=== PATIENT | female | born 1955 | race Two or more races ===

== ENCOUNTER 2022-12-24 12:37 | Outpatient (OUT) | payer MEDICARE, MEDICAID, SELFPAY ==
--- NOTE | 2022-12-24 12:48 | XR_ITS ---
The [address] [address] Patient Name: NYA REDMOND MRN: [id number] date: 1955 Sex: F Assigned Patient Location: [facility] Current Patient Location: [facility] Accession/Order Number: [id number] Exam Date: 12/24/2022 13:10 Report Date: 12/24/2022 13:27 At the request of: ANUPAM PEREIRA Procedure: XR chest 2V EXAM: XR chest 2V HISTORY: Symptoms Involving The Circulatory And Respiratiry System COMPARISON: None. TECHNIQUE: PA and lateral views of the chest. FINDINGS: The cardiomediastinal silhouette is normal. There is a left-sided pacemaker with atrial ventricular leads. No focal consolidation is identified. There is no pneumothorax. No pleural effusion is noted. The osseous structures are intact. XR/XR chest 2V IMPRESSION: No acute cardiopulmonary process. Electronically authenticated by: TERRY HIGGINS Date: 12/24/2022 13:27
--- NOTE | 2022-12-24 12:51 | XR_ITS ---
[place] [id number] Patient Name: NYA REDMOND MRN: [id number] date: 1955 Sex: F Assigned Patient Location: [facility] Current Patient Location: [facility] Accession/Order Number: [id number] Exam Date: 12/24/2022 13:10 Report Date: 12/24/2022 13:30 At the request of: ANUPAM PEREIRA Procedure: XR shoulder RT min 2V EXAM: XR shoulder RT min 2V HISTORY: Right Shoulder Pain COMPARISON: None. TECHNIQUE: 3 views FINDINGS: No acute fracture or dislocation. Mild degenerative changes of the acromioclavicular joint. Unremarkable soft tissues XR/XR shoulder RT min 2V IMPRESSION: Mild degenerative changes as above. Electronically authenticated by: TERRY HIGGINS Date: 12/24/2022 13:30
== END 2022-12-24 12:38 | disposition home or self-care (01) ==
LOC: RAD 12:42
PROVIDERS: PCP Family Medicine; Visit Provider Family Medicine
DX: R09.89 Other specified symptoms and signs involving the circulatory and respiratory systems (principal); M25.511 Pain in right shoulder
CPT/HCPCS: 71046; 73030

== ENCOUNTER 2023-03-26 16:25 | Outpatient (OUT) | payer MEDICARE, MEDICAID, SELFPAY ==
[2023-03-26 17:05] LABS: BUN Creatinine Ratio 15.3; Carbon Dioxide 29.3 mmol/L (21.0-32.0); Chloride 106 mmol/L (98-107); Estimated GFR (African America 59 (>=60); Estimated GFR (Non-African Ame 49 (>=60); Glucose 109 mg/dL (74-106); Potassium 4.3 mmol/L (3.5-5.1); Sodium 144 mmol/L (136-145)
== END 2023-03-26 16:26 | disposition home or self-care (01) ==
PROVIDERS: PCP Family Medicine
DX: I50.22 Chronic systolic (congestive) heart failure (principal)
CPT/HCPCS: 36415; 80048

== ENCOUNTER 2023-12-25 11:27 | Emergency (ER) | payer MEDICARE, MEDICAID, SELFPAY ==
[2023-12-25 11:31] VITALS: BP 144/91; PULSE 70; TEMP 36.6; O2SAT 95; BMI 38.7
--- NOTE | 2023-12-25 11:36 | XR_ITS ---
The [address] [address] Patient Name: NYA REDMOND MRN: [id number] date: 1955 Sex: F Assigned Patient Location: ER Current Patient Location: ER Accession/Order Number: [id number] Exam Date: 12/25/2023 12:05 Report Date: 12/25/2023 12:39 At the request of: EUGENIA WREN Procedure: XR knee LT 3V PROCEDURE: XR knee LT 3V HISTORY: fall COMPARISON: None. FINDINGS: BONES:No fracture, acute abnormality, or significant arthropathy. SOFT TISSUES:No visible soft tissue swelling. EFFUSION:Small joint effusion. OTHER: Negative. XR/XR knee LT 3V IMPRESSION: 1. Small joint effusion. 2. No acute bone abnormality or significant degenerative joint disease. Electronically authenticated by: MAREN AMRTEL Date: 12/25/2023 12:39
--- NOTE | 2023-12-25 11:36 | XR_ITS ---
The [address] [address] Patient Name: NYA REDMOND MRN: [id number] date: 1955 Sex: F Assigned Patient Location: ER Current Patient Location: ER Accession/Order Number: [id number] Exam Date: 12/25/2023 12:05 Report Date: 12/25/2023 12:37 At the request of: EUGENIA WREN Procedure: XR lumbar spine 2-3V EXAMINATION: XR lumbar spine 2-3V HISTORY: fall COMPARISON: No relevant comparison available. FINDINGS: BONES: Minimal grade 1 anterolisthesis of L4 on 5. Multilevel moderate degenerative facet arthropathy. No fracture. DISC SPACES: Moderate narrowing L3-4, L4-5, L5-S1. PARASPINOUS: Negative. No paraspinous abnormality is seen. OTHER: Negative. XR/XR lumbar spine 2-3V IMPRESSION: 1. No appreciable acute abnormality. 2. Multilevel moderate degenerative changes. Electronically authenticated by: MAREN MARTEL Date: 12/25/2023 12:37
--- NOTE | 2023-12-25 11:36 | XR_ITS ---
The [place] [id number] Patient Name: NYA REDMOND MRN: [id number] date: 1955 Sex: F Assigned Patient Location: ER Current Patient Location: Accession/Order Number: [id number] Exam Date: 12/25/2023 12:05 Report Date: 12/25/2023 12:45 At the request of: EUGENIA WREN Procedure: XR hand LT min 3V PROCEDURE: XR hand LT min 3V HISTORY: fall COMPARISON: None. FINDINGS: BONES:Moderate degenerative changes of the first digit interphalangeal joint. Mild degenerative changes of the second digit distal interphalangeal joint. No fracture or dislocation. SOFT TISSUES:No visible soft tissue swelling. EFFUSION:None visible. OTHER: Negative. XR/XR hand LT min 3V IMPRESSION: 1. No acute bone abnormality. 2. Degenerative changes. Electronically authenticated by: MAREN MARTEL Date: 12/25/2023 12:45
--- OUTSIDE RECORDS SUMMARY | 2023-12-25 11:38 | XMS_ITS | CCD ---
Author Organization [facility] Care Team Providers Care Circular Clerk Name Role Phone Hampole, Haile V Unavailable Unavailable Hampole, Haile V Unavailable Unavailable Hampole, Haile V Unavailable Unavailable ANUPAM PEREIRA~[phone] UNKNOWN Unavailable Unavailable Harsh Lange Unavailable Unavailable Harsh Lange Unavailable Unavailable Anupam Pereira Unavailable Unavailable Unavailable MD Anupam Pereira Primary Care Provider MD Daphne Mayes Attending Provider [phone] Unavailable Unavailable MD Anupam Pereira Primary Care Provider MD Daphne Mayes Attending Provider [phone] MD Anupam Pereira Primary Care Provider MD Daphne Mayes Attending Provider [phone] MD Anupam Pereira Primary Care Provider MD Daphne Mayes Attending Provider [phone] Anup[address] ANUPAM PEREIRA Primary Care Unavailable MARIA FERNANDA ., DR JANICE Casas Attending Unavailable MARIA FERNANDA ., DR JANICE Casas Admitting Unavailable MARIA FERNANDA ., DR JANICE Casas Consulting Unavailable DR ANUPAM PEREIRA Primary Care Unavailable DR ANUPAM PEREIRA Consulting Unavailable RANDALL, DR ANUPAM Kurtz Attending Unavailable DR ANUPAM PEREIRA Admitting Unavailable DR ANUPAM PEREIRA Primary Care Unavailable MARIA FERNANDA ., DR JANICE Casas Admitting Unavailable MARIA FERNANDA ., DR JANICE Casas Consulting Unavailable MARIA FERNANDA ., DR JANICE Casas Attending Unavailable DR ANUPAM PEREIRA Primary Care Unavailable MARIA FERNANDA ., DR JANICE Casas Admitting Unavailable JOLLY SIM Consulting Unavailable MARIA FERNANDA ., DR JANICE Casas Attending Unavailable DR ANUPAM PEREIRA Primary Care Unavailable MARIA FERNANDA ., DR JANICE Casas Admitting Unavailable IRVING ., DR JANICE Casas Consulting Unavailable IRVING ., DR JANICE Casas Attending Unavailable LAKSHMIPATHY ., YOSHI Attending Kathya vailable LAKSHMIPATHY ., YOSHI Admitting Akthya vailable PEREIRA, DR ANUPAM Kurtz Primary Care Unavailable LAKSHMIPATHY ., YOSHI Consulting Kathya vailable PEREIRA, DR ANUPAM Kurtz Primary Care Unavailable IRVING ., DR JANICE Casas Attending Unavailable IRVING ., DR JANICE Casas Admitting Unavailable IRVING ., DR JANICE Casas Consulting Unavailable SHARP, MERCEDES Consulting Unavailable PEREIRA, DR ANUPAM Kurtz Primary Care Unavailable IRVING ., DR JANICE Casas Attending Unavailable IRVING ., DR JANICE Casas Admitting Unavailable NAVAS . JOLLY Consulting Unavailable PEREIRA, DR ANUPAM Kurtz Primary Care Unavailable IRVING ., DR JANICE Casas Attending Unavailable IRVING ., DR JANICE Casas Admitting Unavailable IRVING ., DR JANICE Casas Consulting Unavailable PEREIRA, DR ANUPAM Kurtz Primary Care Unavailable BOSWELL, DR LUPE Denney Attending Unavailable BOSWELL, DR LUPE Denney Admitting Unavailable BOSWELL, DR LUPE Denney Consulting Unavailable PEREIRA, DR ANUPAM Kurtz Primary Care Unavailable PEREIRA, DR ANUPAM Kurtz Attending Unavailable PEREIRA, DR ANUPAM Kurtz Admitting Unavailable MORRIS, DR CECY Wade Consulting Unavailable ZIEBER, DR MAREN Benz Consulting Unavailable PEREIRA, DR ANUPAM Kurtz Consulting Unavailable BOSWELL, DR LUPE Denney Attending Unavailable BOSWELL, DR LUPE Denney Admitting Unavailable PEREIRA, DR ANUPAM Kurtz Primary Care Unavailable BOSWELL, DR LUPE Denney Consulting Unavailable PEREIRA, DR ANUPAM Kurtz Primary Care Unavailable PEREIRA, DR ANUPAM Kurtz Consulting Unavailable PEREIRA, DR ANUPAM Kurtz Attending Unavailable PEREIRA, DR ANUPAM Kurtz Admitting Unavailable ARRIAZA, ELAINA Consulting Unavailable Randall, MD Anupam Kurtz Primary Care Provider [phone] MD Daphne Mayes Attending Provider Boswell, Dr. Lupe Carrion Attending Kathya vailable Pereira, Dr. Anupam Tam Primary Care Unav ailable Boswell, Dr. Lupe Carrion Attending Ktahya vailable Pereira, Dr. Anupam Tam Primary Care Unav ailable Boswell, Dr. Lupe Carrion Attending Kathya vailable Pereira, Dr. Anupam Tam Primary Care Unav ailable Pereira, MD Anupam Kurtz Primary Care Provider MD Daphne Mayes Attending Provider Randall, Dr. Anupam Tam Primary Care Unav ailable Boswell, Dr. Lupe Carrion Referring Kathya vailable Pereira, Dr. Anupam Tam Primary Care Unav ailable Boswell, Dr. Lupe Carrion Attending Kathya vailable Boswell, Dr. Lupe Carrion Referring Kathya vailable Pereira, Dr. Anupam Tam Primary Care Unav ailable Boswell, Dr. Lupe Carrion Attending Kathya vailable Pereira, Dr. Anupam Tam Primary Care Unav ailable Huber, Dr. Daphne Canada Attending Unavailab le Randall, Dr. Anupam Tam Primary Care Unav ailirina Pereira, Dr. Anupam Tam Primary Care Unav zelalem Pereira MD, Anupam Tam Primary Care Provider MD Anupam Pereira Primary Care Provider MD Gaudencio Mendzoa Attending Provider Joslyn SULLIVAN-Maurizio SANTIAGO Unavailable Anupam Pereira MD Primary Care Provider ANUPAM PEREIRA Primary Care Unavailable Anupam Pereira MD Primary Care Provider MAURIZIO JORGENSEN Attending Unavaila ANUPAM Ramirez Primary Care Unavailable LUPE BOSWELL Attending Unavailable ANUPAM PEREIRA Primary Care Unavailable DAPHNE MAYES Attending Unavailable MAURIZIO JORGENSEN Referring Unavaila ANUPAM Ramirez Primary Care Unavailable LUPE BOSWELL Attending Unavailable LUPE BOSWELL Referring Unavailable ANUPAM PEREIRA Primary Care Unavailable MD Anupam Pereira Primary Care Provider MD Gaudencio Mendoza Attending Provider Gaudencio Mendoza Admitting Unavail able Anupam Pereira Primary Care Unavailable Gaudencio Mendoza Attending Unavail able Gaudencio Mendoza Admitting Unavail able Anupam Pereira Primary Care Unavailable Gaudencio Mendoza Attending Unavail Gaudencio Craig Attending Unavail able Gaudencio Mendoza Admitting Unavail able Anupam Pereira Primary Care Unavailable Allergies Allergy Classification Reported Allergen(s) Allergy Type Date of Onset Reaction(s) Facility (1 source) Adhesive Tape; Translations: [Tape] Propensity to adverse reactions (disorder) [facility] Repository (3 sources) Desonide Drug Allergy 06-12-19 16 Unknown, Rash [facility] Repository (1 source) Latex Drug allergy (disorder) [facility] (1 source) patient allergy list reviewed by nurse or physicia Propensity to adverse reactions 08-31-19 15 Comment:Done [email or web address] Other (1 source) Allergies Reconciled Propensity to adverse reactions Unknown [email or web address] Other (5 sources) Adhesive agent; Translations: [ADHESIVE] Drug Intolerance 10-26-19 14 Unknown [facility] (2 sources) Adhesive Tape Drug allergy (disorder) 05-28-19 24 [facility] Repository Medications Current Medications Medication Drug Class(es) Dates Sig (Normalized) Sig (Original) amoxicillin 875 mg / clavulanate 125 mg oral tablet (2 sources) Penicillin-class Antibacterial Start: 01-09-2023 take 1 tablet by mouth every twelve hours Amoxicillin-Pot Clavulanate 875-125 MG 1 tablet Orally every 12 hrs for 10 day(s) Jan, Active baclofen 10 mg oral tablet (3 sources) gamma-Aminobutyric Acid-ergic Agonist take 1 tablet by mouth every twelve hours Baclofen 10 MG 1 tablet as needed Orally Twice a day Active benzonatate 200 mg oral capsule (4 sources) Non-narcotic Antitussive Start: 05-08-2023 take 1 capsule by mouth every eight hours Benzonatate 200 MG 1 capsule Orally Three times a day for 10 day(s) May, Active Start: 12-31-2022 take 1 capsule by [facility] every eight hours Benzonatate 200 MG 1 capsule Orally Three times a day for 10 day(s) Dec, Active carvedilol 3.125 mg oral tablet (20 sources) alpha-Adrenergic Roxy, beta-Adrenergic Roxy Start: 12-22-2023 take 3.125 mg by mouth twice daily Carvedilol Active 3.125 MG PO Twice daily December 22, 2023 12:00am Start: 08-29-2023 take 1 tablet by yuliya th twice daily carvedilol (Coreg) 6.25 mg tablet Indications: ICD (implantable cardioverter-defibrillator) in place Take 1 tablet (6.25 mg) by mouth 2 times a day. 90 tablet 3 08/29/2023 Active Start: 04-03-2021 End: 08-29-2023 take 1 tablet by mouth twice daily carvedilol (Coreg) 6.25 mg tablet Take 1 tablet (6.25 mg) by mouth 2 times a day. 04/03/2021 08/29/2023 Discontinued (Reorder) take 1 tablet by yuliya th every twelve hours Carvedilol 3.125 MG 1 tablet with food Orally Twice a day for 90 Active cefdinir 300 mg oral capsule (3 sources) Cephalosporin Antibacterial Start: 05-08-2023 Cefdinir 300 MG as directed Orally bid for 7 May, Active Start: 12-31-2022 Cefdinir 300 M G as directed Orally bid for 7 days Dec, Active codeine phosphate 2 mg/ml / guaiFENesin 20 mg/ml oral solution (2 sources) Opioid Agonist Start: 12-31-2022 take 10 mL by mouth every four hours as needed guaiFENesin AC 100-10 MG/5ML 10 mL as needed Orally every 4 hrs for 7 days Dec, Active furosemide 40 mg oral tablet (2 sources) Loop Diuretic Start: 02-25-2023 End: 05-12-2023 furosemide (Lasix) 40 mg tablet Indications: Chronic systolic congestive heart failure (CMS/HCC) Take one tablet daily x 3 days then one tablet daily for a 3 pound weight gain over night or 5 pounds in 5 days 30 tablet 11 02/25/2023 05/12/2023 Discontinued (Therapy completed) Handicap placards as directed (9 sources) Handicap placard s as directed as directed as directed as directed Active methylPREDNISolone 4 mg oral tablet (3 sources) Corticosteroid Start: 05-08-2023 methylPREDNISolone 4 MG as directed Orally for 6 days May, Active Start: 01-09-2023 methylPREDNISo lone 4 MG as directed Orally for 6 days Jan, Active Nirmatrelvir-Ritonavir (Paxlovid) 300 mg (150 mg x 2)-100 mg tablets,dose pack (1 source) Start: 12-22-2023 Nirmatrelvir-Ritonavir (Paxlovid) 300 mg (150 mg x 2)-100 mg tablets,dose pack Active 0 PO .COMPLEX 30 December 22, 2023 12:00am take TWO 150 mg tablets of nirmatrelvir with ONE 100 mg tablet of ritonavir twice daily for 5 days PO omeprazole 20 mg delayed release oral capsule (20 sources) Proton Pump Inhibitor Start: 12-22-2023 take 20 mg by mouth once daily Omeprazole Active 20 MG PO Daily December 22, 2023 12:00am take 1 capsule by [facility] once daily before breakfast omeprazole (PriLOSEC) [address] capsule Take 1 capsule (20 mg) by mouth once daily in the morning. Before Breakfast Active Omeprazole 20 MG TK 2 CS PO QD Oral for 90 Active predniSONE 20 mg oral tablet (6 sources) Start: 05-22-2023 take 2 tablets by mouth every twenty-four hours predniSONE 20 MG 2 tablets Orally Once a day for 5 days May, Active Start: 12-24-2022 take 2 tablets by [facility] every twenty-four hours predniSONE 20 MG 2 tablets Orally Once a day for 5 days Dec, Active sacubitril 49 mg / valsartan 51 mg oral tablet (20 sources) Angiotensin 2 Receptor Roxy Start: 12-22-2023 take 1 tablet by mouth twice daily Sacubitril-Valsartan (Entresto) 49-51 mg tablet Active 1 TAB PO Twice daily December 22, 2023 12:00am Start: 08-29-2023 take 1 tablet by [facility] twice daily sacubitriL-valsartan (Entresto) 49-51 mg tablet Indications: ICD (implantable cardioverter-defibrillator) in place Take 1 tablet by mouth 2 times a day. 180 tablet 3 08/29/2023 Active Start: 10-09-2021 End: 08-29-2023 take 1 tablet by mouth twice daily sacubitriL-valsartan (Entresto) 49-51 mg tablet Take 1 tablet by mouth 2 times a day. 10/09/2021 08/29/2023 Discontinued (Reorder) take 1 tablet by twice daily Entresto 24-26 MG TAKE 1 TABLET BY MOUTH TWICE A DAY for 90 Active ENTRESTO 24 mg/2 6 mg 1 orally twice a day Active sertraline 100 mg oral tablet (20 sources) Serotonin Reuptake Inhibitor Start: 06-20-2023 take 100 mg by mouth once daily Sertraline Active 100 MG PO Daily June 20, 2023 1:00am take 2 tablets by mouth once maura ly sertraline (Zoloft) 50 mg tablet Take 2 tablets (100 mg) by mouth once daily. Active take 1 tablet by mouth once santiago y Sertraline HCl 100 MG TAKE 1 TABLET BY MOUTH EVERY DAY for 90 Active take 1 tablet by mouth once santiago y Sertraline HCl - 50 MG Oral Tablet TAKE 1 TABLET DAILY DIRECTED. Quantity: 0 Refills: 0 Ordered: 09-Aug-2021 DO Active tiZANidine 4 mg oral tablet (7 sources) Central alpha-2 Adrenergic Agonist tiZANidine HCl 4 MG TAKE 1 TABLET BY MOUTH THREE TIMES A DAY NEEDED FOR 30 DAYS for 20 Active Completed/Discontinued Medications Medication Drug Class(es) Dates Sig (Normalized) Sig (Original) Albuterol (6 sources) beta2-Adrenergic Agonist Start: 06-20-2023 End: 12-22-2023 take 1 puff(s) by inhalation every four to six hours Albuterol Sulfate Discontinued 2 PUFF INHALATION EVERY 4-6 HOURS 6.7 June 20, 2023 1:00am December 22, 2023 2:01pm Start: 06-20-2023 take 1 puff(s) by in halation every four to six hours Albuterol Sulfate Active 2 PUFF INHALATION EVERY 4-6 HOURS 6.7 June 20, 2023 1:00am Start: 01-09-2023 take 2 puff(s) by in halation every four hours as needed Albuterol Sulfate HFA 108 (90 Base) MCG/ACT 2 puff Inhalation every 4 hrs prn Jan, Active Start: 01-09-2023 take 2 puff(s) by in halation every four hours as needed Albuterol Sulfate HFA 108 (90 Base) MCG/ACT 2 puff Inhalation every 4 hrs prn Jan, Active Albuterol Sulfat e HFA 108 (90 Base) MCG/ACT INHALE 2 PUFFS BY MOUTH EVERY 4 HOURS NEEDED FOR 30 DAYS for 30 Active ciprofloxacin 250 mg oral tablet (5 sources) Quinolone Antimicrobial take 1 tablet by mouth every twelve hours Ciprofloxacin HCl 250 MG 1 tablet Orally every 12 hrs Not-Taking ergocalciferol 0.05 mg oral capsule (13 sources) Provitamin D2 Compound Start: 10-10-19 End: 08-29-19 24 take 1 capsule by mouth once daily Vitamin D (Ergocalciferol) 50 MCG (2000 UT) Oral Capsule one daily OTC Quantity: 90 Refills: 0 Ordered: 09-Oct-2022 Lupe Boswell MD Start : 09-Oct-2022 Active Start: 05-23-2022 take 1 capsule by [facility] every week Vitamin D (Ergocalciferol) 1.25 MG (75398 UT) 1 capsule Orally weekly for 90 day(s) May, Active febuxostat 80 mg oral tablet (5 sources) Xanthine Oxidase Inhibitor take 1 tablet by mouth once daily Uloric 80 MG TAKE 1 TABLET BY MOUTH EVERY DAY Oral for 90 Not-Taking lisinopril 10 mg oral tablet (5 sources) Angiotensin Converting Enzyme Inhibitor take 1 tablet by mouth once daily Lisinopril 10 MG TAKE 1 TABLET EVERY DAY Oral for 90 Not-Taking nabumetone 750 mg oral tablet (5 sources) Nonsteroidal Anti-inflammatory Drug take 1 tablet by mouth twice daily Nabumetone 750 MG TAKE 1 TABLET TWICE A DAY Oral for 30 Not-Taking traMADol hydrochloride 50 mg oral tablet (5 sources) Opioid Agonist take 1 tablet by mouth every twenty-four hours traMADol HCl 50 MG 1 tablet as needed Orally Once a day Not-Taking Problems Active Problems Problem Classification Problem Date Documented Date Episodic/Chronic Abdominal pain (15 sources) Right upper quadrant pain; Translations: [Right upper quadrant pain] Onset: 03-17-2017 Episodic Acute bronchitis (2 sources) Acute bronchitis; Translations: [Acute bronchitis] Onset: 08-30-2014 Episodic Administrative/social admission (17 sources) Follow-up status; Translations: [Other specified counseling] Onset: 08-29-2023 08-29-2023 Episodic Anxiety disorders (14 sources) Generalized anxiety disorder; Translations: [Generalized anxiety disorder] Onset: 08-30-2014 Chronic Chronic obstructive pulmonary disease and bronchiectasis (16 sources) Bronchitis; Translations: [Bronchitis, not specified as acute or chronic] Episodic Conduction disorders (20 sources) Automatic implantable cardiac defibrillator in situ; Translations: [Automatic implantable cardiac defibrillator in situ] Onset: 03-28-2014 02-25-2023 Chronic Congestive heart failure; nonhypertensive (20 sources) Chronic systolic heart failure; Translations: [Chronic systolic heart failure] Onset: 03-28-2014 Chronic Deficiency and other anemia (5 sources) Anemia, unspecified; Translations: [ANEMIA UNSPECIFIED] Onset: 05-21-2022 Episodic Diabetes mellitus without complication (14 sources) Impaired fasting glycemia; Translations: [Impaired fasting glucose] Episodic Esophageal disorders (14 sources) Gastroesophageal reflux disease without esophagitis; Translations: [Gastro-esophageal reflux disease without esophagitis] Chronic Essential hypertension (15 sources) Essential hypertension; Translations: [Essential (primary) hypertension] Onset: 03-28-2014 Chronic Genitourinary symptoms and ill-defined conditions (14 sources) Increased frequency of urination; Translations: [Frequency of micturition] Episodic Gout and other crystal arthropathies (20 sources) Articular gout; Translations: [Gout, unspecified] Onset: 03-28-2014 Chronic Influenza (1 source) Influenza due to other identified influenza virus with other respiratory manifestations Episodic Mood disorders (16 sources) Depression; Translations: [Depressive disorder] Onset: 08-29-2017 Chronic Nonspecific chest pain (20 sources) Precordial pain; Translations: [Precordial pain] Onset: 09-15-2017 Episodic Nutritional deficiencies (12 sources) Vitamin D deficiency; Translations: [Vitamin D deficiency, unspecified] Onset: 05-27-2022 Chronic Osteoarthritis (17 sources) Osteoarthritis; Translations: [Unspecified osteoarthritis, unspecified site] Onset: 05-14-2016 09-18-2023 Chronic Other acquired deformities (14 sources) Acquired deformity of finger; Translations: [Unspecified deformity of right finger(s)] Episodic Other circulatory disease (5 sources) Elevated blood-pressure reading without diagnosis of hypertension; Translations: [Elevated blood-pressure reading, without diagnosis of hypertension] Episodic Other circulatory disease (1 source) Other specified symptoms and signs involving the circulatory and respiratory systems Episodic Other connective tissue disease (9 sources) Adhesive capsulitis of left shoulder; Translations: [Adhesive capsulitis of left shoulder] Episodic Other lower respiratory disease (2 sources) Dyspnea on exertion; Translations: [Other forms of dyspnea] 02-25-2023 Episodic Other nervous system disorders (1 source) Other chronic pain; Translations: [OTHER CHRONIC PAIN] Onset: 08-06-2022 Chronic Other nervous system disorders (9 sources) Paresthesia of upper limb; Translations: [Paresthesia of skin] Episodic Other non-traumatic joint disorders (12 sources) Shoulder joint pain; Translations: [Pain in right shoulder] Episodic Other non-traumatic joint disorders (2 sources) Shoulder pain; Translations: [Pain in left shoulder] Episodic Other non-traumatic joint disorders (8 sources) Pain in right shoulder; Translations: [Right shoulder pain] Episodic Other non-traumatic joint disorders (7 sources) Pain in left shoulder; Translations: [Left shoulder pain] Episodic Other nutritional; endocrine; and metabolic disorders (16 sources) Body mass index 40+ - severely obese; Translations: [Body Mass Index 40.0-44.9, adult] Onset: 04-10-2018 Chronic Other nutritional; endocrine; and metabolic disorders (17 sources) Morbid obesity; Translations: [Morbid obesity] Onset: 06-21-2014 02-25-2023 Chronic Other nutritional; endocrine; and metabolic disorders (7 sources) Obesity; Translations: [Obesity, unspecified] Onset: 02-25-2023 08-29-2023 Chronic Other nutritional; endocrine; and metabolic disorders (1 source) Hypercalcemia; Translations: [Hypercalcemia] Onset: 03-17-2017 Chronic Other nutritional; endocrine; and metabolic disorders (5 sources) Obese class II; Translations: [Body mass index (BMI) 38.0-38.9, adult] Chronic Other nutritional; endocrine; and metabolic disorders (2 sources) Obesity, unspecified; Translations: [Obesity, unspecified] Onset: 05-12-2023 Chronic Other nutritional; endocrine; and metabolic disorders (2 sources) Body mass index (BMI) 37.0-37.9, adult; Translations: [Body mass index (BMI) 37.0-37.9, adult] Onset: 05-12-2023 Chronic Other nutritional; endocrine; and metabolic disorders (2 sources) Morbid (severe) obesity due to excess calories; Translations: [Morbid (severe) obesity due to excess calories (CMS/HCC)] Onset: 02-25-2023 Chronic Other upper respiratory disease (9 sources) Epistaxis; Translations: [Epistaxis] Episodic Other upper respiratory disease (5 sources) Bleeding from nose; Translations: [Epistaxis] Episodic Darlene-; endo-; and myocarditis; cardiomyopathy (except that caused by tuberculosis or sexually transmitted disease) (20 sources) Cardiomyopathy; Translations: [Other primary cardiomyopathies] Onset: 06-21-2014 Chronic Comment on above: Nonischemic; Residual codes; unclassified (17 sources) Obstructive sleep apnea of adult; Translations: [Obstructive sleep apnea (adult)(pediatric)] Onset: 02-22-2023 02-25-2023 Chronic Residual codes; unclassified (2 sources) Obstructive sleep apnea (adult) (pediatric); Translations: [Obstructive sleep apnea (adult) (pediatric)] Onset: 02-22-2023 Chronic Residual codes; unclassified (9 sources) Tobacco user; Translations: [Tobacco use] Episodic Residual codes; unclassified (2 sources) Never smoked tobacco; Translations: [Other specified health status] Onset: 08-29-2023 08-29-2023 Episodic Residual codes; unclassified (2 sources) Other specified health status; Translations: [Other specified health status] Onset: 08-29-2023 Episodic Spondylosis; intervertebral disc disorders; other back problems (8 sources) Spondylosis without myelopathy or radiculopathy, lumbar region; Translations: [Other intervertebral disc degeneration, lumbar region] Onset: 08-29-2017 Chronic Spondylosis; intervertebral disc disorders; other back problems (20 sources) Neck pain; Translations: [Cervicalgia] Onset: 08-09-2015 Episodic Unclassified (4 sources) LOW BACK PAIN, UNSPECIFIED; Translations: [LOW BACK PAIN, UNSPECIFIED] Onset: 08-06-2022 Unclassified (5 sources) Exposure to acute respiratory syndrome coronavirus 2; Translations: [Contact with and (suspected) exposure to COVID-19] Unclassified (1 source) Encounter for adjustment and management of automatic implantable cardiac defibrillator; Translations: [Encounter for adjustment and management of automatic implantable cardiac defibrillator] Onset: 05-28-2023 Urinary tract infections (14 sources) Urinary tract infectious disease; Translations: [Urinary tract infection, site not specified] Episodic Past or Other Problems Problem Classification Problem Date Documented Date Episodic/Chronic Bacterial infection; unspecified site (1 source) Bacterial infectious disease; Translations: [Bacterial infection, unspecified, in conditions classified elsewhere and of unspecified site] Onset: 04-10-2018 Episodic Deficiency and other anemia (1 source) Anemia; Translations: [Unspecified anemia] Onset: 05-26-2015 Episodic Malaise and fatigue (20 sources) Fatigue; Translations: [Other malaise and fatigue] Onset: 09-07-2021 Episodic Mood disorders (3 sources) Mood disorders Onset: 10-09-2021 06-16-2022 Neoplasms of unspecified nature or uncertain behavior (1 source) Neoplasm of uncertain behavior of kidney; 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] Onset: 05-16-2014 Episodic Other acquired deformities (4 sources) Unspecified deformity of right finger(s); Translations: [UNSPECIFIED DEFORMITY RIGHT FINGERS] Onset: 02-04-2022 Episodic Other connective tissue disease (1 source) Spasm; Translations: [Spasm of muscle] Onset: 09-25-2018 Episodic Other connective tissue disease (1 source) Myalgia/myositis - multiple; Translations: [Unspecified myalgia and myositis] Onset: 03-17-2017 Episodic Other ear and sense organ disorders (1 source) Acute otitis externa; Translations: [Other acute otitis externa] Onset: 04-10-2018 Episodic Other lower respiratory disease (20 sources) Dyspnea; Translations: [Other respiratory abnormalities] Onset: 02-22-2023 02-22-2023 Episodic Other lower respiratory disease (5 sources) Dyspnea, unspecified; Translations: [DYSPNEA UNSPECIFIED] Onset: 11-06-2021 Episodic Other lower respiratory disease (2 sources) Other forms of dyspnea; Translations: [Other forms of dyspnea] Onset: 02-22-2023 Episodic Other nervous system disorders (1 source) Altered sensation of skin; Translations: [Disturbance of skin sensation] Onset: 06-10-2017 Episodic Other non-traumatic joint disorders (1 source) Arthralgia of the lower leg; Translations: [Pain in joint, lower leg] Onset: 06-10-2017 Episodic Other screening for suspected conditions (not mental disorders or infectious disease) (1 source) Mammography abnormal; Translations: [Unspecified abnormal mammogram] Onset: 09-14-2018 Episodic Other upper respiratory infections (1 source) Acute maxillary sinusitis; Translations: [Acute maxillary sinusitis] Onset: 05-14-2016 Episodic Residual codes; unclassified (1 source) Postmenopausal state; Translations: [Asymptomatic postmenopausal status] Onset: 09-01-2018 Episodic Residual codes; unclassified (1 source) C/O - a back symptom; Translations: [Other symptoms referable to back] Onset: 03-17-2017 Episodic Unclassified (6 sources) Never smoked tobacco; Translations: [Never a smoker] Unclassified (1 source) LOW BACK PAIN, UNSPECIFIED; Translations: [LOW BACK PAIN, UNSPECIFIED] Onset: 08-15-2022 Unclassified (2 sources) Onset: 05-12-2023 Resolved: 08-29-2023 08-29-2023 Results Test Name Value Interpretation Reference Range Facility Basic metabolic 2000 panelon 08-29-2023 Anion gap [Moles/Vol] 11 mmol/L Normal 10-20 [facility] Comment on above: Performed By: #### 2 4321-2 #### PONCEIBELISUZE YEE ([id number]) [facility] ([facility]) [address] [place] [address] 33730 Calcium [Mass/Vol] 9.5 mg/dL Normal 8.6-10.3 [facility] Comment on above: Performed By: #### 2 4321-2 #### ANAIBELISUZE YEE ([id number]) [facility] ([facility]) [address] [place] [address] 50596 Chloride [Moles/Vol] 107 mmol/L Normal 98-107 [facility] Comment on above: Performed By: #### 2 4321-2 #### ANAIBELISUZE ANDREA MARJAN ([id number]) [facility] ([facility]) [address] [place] [address] 16415 CO2 [Moles/Vol] 29 mmol/L Normal 21-32 [facility] Comment on above: Performed By: #### 2 4321-2 #### ANAIBELISUZE ANRDEA MARJAN ([id number]) [facility] ([facility]) [address] [place] [address] 92602 Creatinine [Mass/Vol] 0.75 mg/dL Normal 0.50-1.05 [facility] Comment on above: Performed By: #### 2 4321-2 #### EMILE YEE ([id number]) [facility] ([facility]) [address] [place] [address] 83436 Glomerular filtration rate/1.73 sq M.predicted 87 mL/min/1.73m*2 Normal >60 [facility] Comment on above: Result Comment: Calc ulations of estimated GFR are performed using the 2020 CKD-EPI Study Refit equation without the race variable for the IDMS-Traceable creatinine methods. https://jasn.asnjournals.org/content/early//ASN.3308147 988 Performed By: #### 2 4321-2 #### EMILE YEE ([id number]) [facility] ([facility]) [address] [place] [address] 75165 Glucose [Mass/Vol] 105 mg/dL High 74-99 [facility] Comment on above: Performed By: #### 2 4321-2 #### EMILE YEE ([id number]) [facility] ([facility]) [address] [place] [address] 91681 Potassium [Moles/Vol] 4.4 mmol/L Normal 3.5-5.3 [facility] Comment on above: Performed By: #### 2 4321-2 #### EMILE YEE ([id number]) [facility] ([facility]) [address] [place] [address] 62238 Sodium [Moles/Vol] 143 mmol/L Normal 136-145 [facility] Comment on above: Performed By: #### 2 4321-2 #### EMILE YEE ([id number]) [facility] ([facility]) [address] [place] [address] 94466 Urea nitrogen [Mass/Vol] 19 mg/dL Normal 6-23 [facility] Comment on above: Performed By: #### 2 4321-2 #### PONCEIBELISUZE YEE ([id number]) [facility] ([facility]) [address] [place] [address] 42177 ECG 12 lead (Clinic Performe d)on 08-29-2023 See scan [facility] Work Phone: Echocardiogramon 11-22-[address], [address], [place] [address] TRANSTHORACIC ECHOCARDIOGRAM REPORT Patient Name: NYA BELL Reading Physician: [id number] Lupe Boswell MD, [facility] Study Date: 11/22/2022 Referring LUPE BOSWELL Physician: MRN/PID: [id number] PCP: Anupam Pereira Accession/Order#: [id number] Department [facility] Location: Date of : 1955 Fellow: Gender: F Nurse: Admit Date: Mobile Nurse: Ashlyn Cam [facility], [facility] Height: 152.40 cm CC Report to: Weight: 91.17 kg Study Type: Echocardiogram BSA: 1.87 m2 Blood Pressure: 134 /62 mmHg Diagnosis/ICD: I50.22-Chronic systolic (congestive) heart failure (CHF); I42.9-Cardiomyopathy, unspecified Indication: AICD, WALDEMAR, Obesity Procedure/CPT: Echo Complete w Full Doppler-[id number] Study Detail: The following Echo studies were performed: 2D, M-Mode, Doppler and color flow. PHYSICIAN INTERPRETATION: Left Ventricle: Left ventricular systolic function is normal, with an estimated ejection fraction of 60-65%. There are no regional wall motion abnormalities. The left ventricular cavity size is normal. Spectral Doppler shows a normal pattern of left ventricular diastolic filling. Left Atrium: The left atrium is normal in size. Right Ventricle: The right ventricle is normal in size. There is normal right ventricular global systolic function. A pacemaker wire is seen in the right ventricle. Right Atrium: The right atrium is normal in size. Aortic Valve: The aortic valve appears structurally normal. There is no evidence of aortic valve stenosis. There is no evidence of aortic valve regurgitation. The peak instantaneous gradient of the aortic valve is 11.2 mmHg. The mean gradient of the aortic valve is 6.0 mmHg. Mitral Valve: The mitral valve is mildly thickened. There is mild mitral valve regurgitation. Tricuspid Valve: The tricuspid valve is structurally normal. There is trace tricuspid regurgitation. Pulmonic Valve: The pulmonic valve is structurally normal. There is no indication of pulmonic valve regurgitation. Pericardium: There is no pericardial effusion noted. Aorta: The aortic root is normal. Systemic Veins: The inferior vena cava appears to be of normal size. In comparison to the previous echocardiogram(s): When compared to study from 12/15/2020, ejection fraction has increased from 45% up to 65%, the previously reported mild aortic stenosis is no longer seen. CONCLUSIONS: 1. Left ventricular systolic function is normal with a 60-65% estimated ejection fraction. 2. A pacemaker wire is seen in the right ventricle. 3. Mild mitral valve regurgitation. 4. Aortic valve stenosis is not present. 5. When compared to study from 12/15/2020, ejection fraction has increased from 45% up to 65%, the previously reported mild aortic stenosis is no longer seen. QUANTITATIVE DATA SUMMARY: 2D MEASUREMENTS: Normal Ranges: Ao Root d: 2.90 cm (2.0-3.7cm) LAs: 3.30 cm (2.7-4.0cm) RVIDd: 2.80 cm (0.9-3.6cm) IVSd: 1.10 cm (0.6-1.1cm) LVPWd: 1.00 cm (0.6-1.1cm) LVIDd: 4.50 cm (3.9-5.9cm) LVIDs: 3.50 cm LV Mass Index: 87.7 g/m2 LV % FS 22.2 % LV SYSTOLIC FUNCTION BY 2D PLANIMETRY (MOD): Normal Ranges: EF-A4C View: 64.0 % (>=55%) LV DIASTOLIC FUNCTION: Normal Ranges: MV Peak E: 0.87 m/s (0.7-1.2 m/s) MV Peak A: 1.12 m/s (0.42-0.7 m/s) E/A Ratio: 0.78 (1.0-2.2) MV lateral e' 0.08 m/s MV medial e' 0.07 m/s E/e' Ratio: 11.10 (<8.0) MITRAL VALVE: Normal Ranges: MV Vmax: 1.24 m/s (<=1.3m/s) MV peak P.2 mmHg (<5mmHg) MV mean P.0 mmHg (<48mmHg) MITRAL INSUFFICIENCY: Normal Ranges: MR Vmax: 271.00 cm/s AORTIC VALVE: Normal Ranges: AoV Vmax: 1.67 m/s (<=1.7m/s) AoV Peak P.2 mmHg (<20mmHg) AoV Mean P.0 mmHg (1.7-11.5mmHg) LVOT Max Edward: 1.11 m/s (<=1.1m/s) AoV VTI: 36.40 cm (18-25cm) LVOT VTI: 26.60 cm LVOT Diameter: 1.90 cm (1.8-2.4cm) AoV Area, VTI: 2.07 cm2 (2.5-5.5cm2) AoV Area,Vmax: 1.88 cm2 (2.5-4.5cm2) AoV Dimensionless Index: 0.73 TRICUSPID VALVE/RVSP: Normal Ranges: Peak TR Velocity: 2.67 m/s RV Syst Pressure: 31.5 mmHg (< 30mmHg) PULMONIC VALVE: Normal Ranges: PV Max Edward: 0.8 m/s (0.6-0.9m/s) PV Max P.3 mmHg [id number] Lupe Boswell MD, [facility] Electronically signed on 11/22/2022 at 1:01:56 PM Final Normal [facility] Office Visit (Cardiology)on 10-09-2022 Follow-up visit Diagnoses/Problems Assessed Chronic systolic congestive heart failure (428.22,428.0) (I50.22) Cardiomyopathy (425.4) (I42.9) Nonischemic ICD (implantable cardioverter-defibrillator ) in place (V45.02) (Z95.810) Obstructive sleep apnea syndrome in adult (327.23) (G47.33) Class 2 obesity with body mass index (BMI) of 39.0 to 39.9 in adult (278.00,V85.39) (E66.9,Z68.39) Never a smoker Fatigue (780.79) (R53.83) Orders Cardiomyopathy, Chronic systolic congestive heart failure Renew: Entresto 49-51 MG Oral Tablet; TAKE 1 TABLET BY MOUTH TWICE A DAY Echocardiogram; Status:Hold For - Scheduling,Retrospective Authorization; Requested for:09Oct2022; Chronic systolic congestive heart failure Renew: Carvedilol 6.25 MG Oral Tablet; Take 1 tablet twice daily Class 2 obesity with body mass index (BMI) of 39.0 to 39.9 in adult Healthy Weight Tips; Status:Complete - Retrospective Authorization; Done: 09Oct2022 Some eating tips that can help you lose weight.; Status:Complete - Retrospective Authorization; Done: 09Oct2022 Health Maintenance Start: Vitamin D (Ergocalciferol) 50 MCG (1999) Oral Capsule; one daily OTC SocHx: Never a smoker Tobacco Use Screening; Status:Complete; Done: 09Oct2022 Patient Instructions Please bring all medicines, vitamins, and herbal supplements with you when you come to the office. Prescriptions will not be filled unless you are compliant with your follow up appointments or have a follow up appointment scheduled as per instruction of your physician. Refills should be requested at the time of your visit. Echo Same meds Per Dr. Lupe Boswell MD, schedule at [facility] for echo Follow up in 6 months Office visit with Dr. Mayes Chief Complaint NYA BELL is being seen for a 6 month follow-up of. Patient is in the office for follow-up for the problems noted below. She came with her daughter today. She failed to get the echocardiogram as I requested at last visit since she went to the wrong place. She is also not utilizing CPAP machine which is something her emphasized that she need to. She denies any orthopnea PND and her fatigue has improved. She has not followed with electrophysiology for her defibrillator as is scheduled. We will arrange for that at [facility]. Her weight is unchanged from previously and remains above target. Her lab data from PCP from few months ago were reviewed and discussed with her. She needs to take more vitamin D which I recommended. Assessment/recommendations : 1?previous history of nonischemic cardiopathy with ejection fraction now up to 45?50 % by echo December 2020. She remains on Coreg and Entresto. Repeat echocardiogram is scheduled 2?status post AICD, device is assessed by electrophysiology at [facility] 3?cardiac catheterization 7 years ago at [facility] was normal 4? fatigue of unknown etiology. Improved with increased activities 5?sleep apnea supposed to be on CPAP machine, encouraged patient to follow-up with a sleep lab to adjust the device. 6?severe obesity, recommended low-calorie diet and more regular exercise. Surgical History Problems History of Cardioverter defibrillator insertion History of Complete colonoscopy 05May2008 History of Tubal ligation Past Medical History Problems History of Pre-operative cardiovascular examination (V72.81) (Z01.810) Resolved Date: 09 Oct 2021 Current Meds Medication NameInstruction Carvedilol 6.25 MG Oral TabletTake 1 tablet twice daily Entresto 49-51 MG Oral TabletTAKE 1 TABLET BY MOUTH TWICE A DAY Omeprazole 20 MG Oral Capsule Delayed ReleaseTAKE 1 CAPSULE DAILY EVERY MORNING BEFORE BREAKFAST. Sertraline HCl - 50 MG Oral TabletTAKE 2 TABLETS DAILY. Allergies Medication No Known Drug Allergies Recorded By: Evie Currie; 07/16/2021 12:34:57 PM Social History Problems Caffeine use (V49.89) (Z78.9) 1 1/2 daily (Pop) Never a smoker No alcohol use No illicit drug use Review of Systems Constitutional: not feeling tired. Cardiovascular: no intermittent leg claudication and as noted in HPI. Respiratory: shortness of breath, but no cough. Gastrointestinal: no change in bowel habits and no blood in stools. Integumentary: no skin rashes. Neurological: no seizures and no frequent falls. All other systems have been reviewed and are negative for complaint. Vitals Vital Signs Recorded: 09Oct2022 10:59AM Heart Rate72, L Radial Vsdynrhp559, LUE, Sitting Ckxehsuwz18, LUE, Sitting Height5 ft Gnjfnk777 lb BMI Eddvqaxwkb71.26 kg/m2 BSA Calculated1.87 Tobacco Useb) No PHQ-2 Patient Declined/Screening not indicatedYes Falls Screening (Age 18+)a) No falls within the last year Physical Exam Constitutional: alert and in no acute distress. Neck: neck is supple, symmetric, trachea midline, no masses and no thyromegaly . Pulmonary: no increased work of breathing or signs of respiratory distress and lungs clear to auscultation. Cardiovascular: c (more content not included)... Normal [employer] Tobacco Screening.on 023 Fall risk assessment a) No falls within the last year [facility] [place] [address] DO Work Phone: Tobacco use status [facility] b) No [facility] [place] [address] DO Work Phone: Tobacco Screening. Yes [facility] [place] [address] DO Work Phone: CBC AUTO DIFFon 05-21-2022 BASO # 0.0 103/ul Normal 0.0-0.1 [facility] Comment on above: Performed By: #### C BC ####[facility] [address] [place] [address]Dr. Phillip Mazariegos Basophils/100 WBC (Bld) 0.4 % Normal 0.2-2.0 [facility] Comment on above: Performed By: #### C BC ####[facility] [address] [place], [place] [address]Dr. Phillip Mazariegos EO # 0.2 103/ul Normal 0.0-0.7 [facility] Comment on above: Performed By: #### C BC ####[facility] [address] [place], [place] [address]Dr. Phillip Mazariegos Eosinophils/100 WBC (Bld) 2.0 % Normal 0.9-7.0 [facility] Comment on above: Performed By: #### C BC ####[facility] [address] [place], [place] [address]Dr. Phillip Mazariegos Erythrocyte distribution width (RBC) [Ratio] 13.8 % Normal 11.0-15.0 [facility] Comment on above: Performed By: #### C BC ####[facility] [address] [place], [place] [address]Dr. Phillip Mazariegos Hematocrit (Bld) [Volume fraction] 36.3 % Normal 36.0-48.0 [facility] Comment on above: Performed By: #### C BC ####[facility] [address] [place], [place] [address]Dr. Phillip Mazariegos Hemoglobin (Bld) [Mass/Vol] 12.1 g/dL Normal 12.0-16.0 [facility] Comment on above: Performed By: #### C BC ####[facility] [address] [place] [id number]. Phillip Mazariegos IG # 0.02 10e3/ul Normal 0.00-0.03 [facility] Comment on above: Performed By: #### C BC ####[facility] [address] [place] [address]Dr. Phillip Mazariegos IG % 0.3 % Normal 0.0-0.5 [facility] Comment on above: Performed By: #### C BC ####[facility] [address] [place] [address]Dr. Phillip Yair LYMPH # 1.9 103/ul Normal 1.2-3.8 [facility] Comment on above: Performed By: #### C BC ####[facility] [address] [place] [address]Dr. Phillip Mazariegos Lymphocytes/100 WBC (Bld) 25.7 % Normal 20.5-60.0 [facility] Comment on above: Performed By: #### C BC ####[facility] [address] [place] [address]Dr. Rerebrent Mazariegos MANUAL DIFF REQ NO Normal [facility] Comment on above: Performed By: #### C BC ####[facility] [address] [place] [address]Dr. Phillip Mazariegos MCH (RBC) [Entitic mass] 28.7 pg Normal 26.7-34.0 [facility] Comment on above: Performed By: #### C BC ####[facility] [address] [place] [address]Dr. Phillip Mazariegos MCHC (RBC) [Mass/Vol] 33.3 g/dL Normal 29.9-35.2 [facility] Comment on above: Performed By: #### C BC ####[facility] [address] [place] [address]Dr. Phillip Mazariegos MCV (RBC) [Entitic vol] 86.0 fL Normal 81.0-99.0 [facility] Comment on above: Performed By: #### C BC ####[facility] [address] [place], [place] [address]Dr. Phillip Mazariegos MONO # 0.6 103/ul Normal 0.3-0.8 [facility] Comment on above: Performed By: #### C BC ####[facility] [address] [place] [address]Dr. Phillip Mazariegos Monocytes/100 WBC (Bld) 7.8 % Normal 1.7-12.0 [facility] Comment on above: Performed By: #### C BC ####[facility] [address] [place] [address]Dr. Phillip Mazariegos NEUT # 4.7 103/ul Normal 1.4-6.5 [facility] Comment on above: Performed By: #### C BC ####[facility] [address] [place], [place] [address]Dr. Phillip Mazariegos Neutrophils/100 WBC (Bld) 63.8 % Normal 43.0-75.0 [facility] Comment on above: Performed By: #### C BC ####[facility] [address] [place], [place] [address]Dr. Phillip Mazariegos Platelet mean volume (Bld) [Entitic vol] 9.5 fL Normal 9.5-13.5 [facility] Comment on above: Performed By: #### C BC ####[facility] [address] [place] [address]Dr. Phillip Mazariegos PLT 269 103/ul Normal 150-450 [facility] Comment on above: Performed By: #### C BC ####[facility] [address] [place], [place] [address]Dr. Phillip Mazariegos RBC 4.22 106/ul Normal 4.20-5.40 [facility] Comment on above: Performed By: #### C BC ####[facility] [address] [place], [place] [address]Dr. Phillip Mazariegos WBC 7.4 103/ul Normal 4.0-11.0 [facility] Comment on above: Performed By: #### C BC ####[facility] [address] [place], [place] [address]Dr. Phillip Mazariegos FERRITINon 05-21-2022 Ferritin [Mass/Vol] 212.0 ng/mL Normal 8.0-252.0 [facility] Comment on above: Performed By: #### F ERR, VITB12, VITAD #### [facility] [address] [place] [address] [address] Phillip Mazariegos VITAMIN B12on 05-21-2022 Cobalamin (Vitamin B12) [Mass/Vol] 698.0 pg/mL Normal 193.0-986.0 [facility] Comment on above: Performed By: #### F ERR, VITB12, VITAD #### [facility] [address] [place] [address] [address] Phillip Mazariegos VITAMIN D 25 OHon 05-21-2022 VIT D 25-OH 28.1 ng/mL Normal [facility] Comment on above: Performed By: #### F ERR, VITB12, VITAD ####[facility] [address] [place] [address]DrBeau Mazariegos VIT D RANGES SEE BELOW Normal [facility] Comment on above: Result Comment: <20 ng/mL Vit D deficient 20 - <30 ng/mL Vit D insufficient 30 - 100 ng/mL Vit D sufficient >100 ng/mL Potential Toxicity Performed By: #### F ERR, VITB12, VITAD ####[facility] [address] [place] [address]Dr. Phillip Mazariegos PROF CHEM 8 (BAS METB)on Anion gap [Moles/Vol] 10.8 mmol/L Normal [facility] Comment on above: Performed By: #### B MP ####[facility] [address] [place] [address]DrBeau Mazariegos Calcium [Mass/Vol] 9.1 mg/dL Normal 8.5-10.1 [facility] Comment on above: Performed By: #### B MP ####[facility] [address] [place] [address]Dr. Phillip Mazariegos Chloride [Moles/Vol] 108 mmol/L Critically high 98-107 [facility] Comment on above: Performed By: #### B MP ####[facility] [address] [place] [address]Dr. Phillip Mazariegos CO2 [Moles/Vol] 29.6 mmol/L Normal 21.0-32.0 [facility] Comment on above: Performed By: #### B MP ####[facility] [address] [place] [address]Dr. Phillip Mazariegos Creatinine [Mass/Vol] 0.85 mg/dL Normal 0.55-1.02 [facility] Comment on above: Performed By: #### B MP ####[facility] [address] [place], [place] [address]Dr. Phillip Mazariegos EGFR-AF TRISTANIAN >60 Normal >=60 The [facility] Comment on above: Performed By: #### B MP ####[facility] [address] [place], [place] [address]Dr. Rerebrent Mazariegos EGFR-NON AF TRISTANIAN >60 Normal >=60 [facility] Comment on above: Performed By: #### B MP ####[facility] [address] [place], [place] [address]Dr. Phillip Mazariegos Glucose [Mass/Vol] 90 mg/dL Normal 74-106 [facility] Comment on above: Performed By: #### B MP ####[facility] [address] [place], [place] [address]Dr. Phillip Mazariegos Potassium [Moles/Vol] 4.4 mmol/L Normal 3.5-5.1 [facility] Comment on above: Performed By: #### B MP ####[facility] [address] [place], [place] [address]Dr. Phillip Mazariegos Sodium [Moles/Vol] 144 mmol/L Normal 136-145 [facility] Comment on above: Performed By: #### B MP ####[facility] [address] [place], [place] [address]Dr. Phillip Mazariegos Urea nitrogen [Mass/Vol] 24.0 mg/dL Critically high 7.0-18.0 [facility] Comment on above: Performed By: #### B MP ####[facility] [address] [place], [place] [address]YgBeau Mazariegos Urea nitrogen/Creatinine [Mass ratio] 28.2 mg/mg Normal [facility] Comment on above: Performed By: #### B ####[facility] [address] [place], [place] [address]MmBeau Mazariegos Office Visit (Cardiology)on 04-17-2022 Follow-up visit Diagnoses/Problems Assessed Chronic systolic congestive heart failure (428.22,428.0) (I50.22) Cardiomyopathy (425.4) (I42.9) Nonischemic ICD (implantable cardioverter-defibrillator ) in place (V45.02) (Z95.810) Fatigue (780.79) (R53.83) Obstructive sleep apnea syndrome in adult (327.23) (G47.33) Dyspnea (786.09) (R06.00) Class 2 obesity with body mass index (BMI) of 39.0 to 39.9 in adult (278.00,V85.39) (E66.9,Z68.39) Morbid obesity with BMI of 40.0-44.9, adult (278.01,V85.41) (E66.01,Z68.41) Orders Cardiomyopathy, Chronic systolic congestive heart failure, Dyspnea, Fatigue Basic Metabolic Panel; Status:Active - Retrospective Authorization; Requested for:[id number]; Echocardiogram; Status:Hold For - Scheduling,Retrospective Authorization; Requested for:[id number]; Class 2 obesity with body mass index (BMI) of 39.0 to 39.9 in adult Healthy Weight Tips; Status:Complete - Retrospective Authorization; Done: [id number] Some eating tips that can help you lose weight.; Status:Complete - Retrospective Authorization; Done: [id number] Patient Instructions Please bring all medicines, vitamins, and herbal supplements with you when you come to the office. Prescriptions will not be filled unless you are compliant with your follow up appointments or have a follow up appointment scheduled as per instruction of your physician. Refills should be requested at the time of your visit. Follow up in 6 months continue current medications Chief Complaint NYA BELL is being seen for cardiomyopathy. Patient is in the office for follow-up for the problems noted below. She continued to have severe fatigue of no obvious cause. She has sleep apnea but has been compliant using CPAP machine. The patient was supposed to have an echocardiogram since her last time but that never took place. Her weight is still the same because of her activities. She denies any orthopnea PND or lower extremity edema and no side effect of current medications. Apart from obesity physical examination was normal. Assessment/recommendations : 1?previous history of nonischemic cardiopathy with ejection fraction now up to 45?50 % by echo December 2020. She remains on Coreg and Entresto. Repeat echocardiogram is scheduled due to progressive fatigue 2?status post AICD, device is assessed by electrophysiology at [facility] 3?cardiac catheterization 7 years ago at [facility] was normal 4?extreme fatigue of unknown etiology. Could be heart failure related. Check ejection fraction by echo 5?sleep apnea on CPAP machine 6?morbid obesity, recommended low-calorie diet and more regular exercise. Surgical History Problems History of Cardioverter defibrillator insertion History of Complete colonoscopy 05May2008 History of Tubal ligation Past Medical History Problems History of Pre-operative cardiovascular examination (V72.81) (Z01.810) Resolved Date: 09 Oct 2021 Current Meds Medication NameInstruction Carvedilol 6.25 MG Oral TabletTake 1 tablet twice daily Entresto 49-51 MG Oral TabletTAKE 1 TABLET BY MOUTH TWICE A DAY Omeprazole 20 MG Oral Capsule Delayed ReleaseTAKE 1 CAPSULE DAILY EVERY MORNING BEFORE BREAKFAST. Sertraline HCl - 50 MG Oral TabletTAKE 2 TABLETS DAILY. Patient did not bring medication list or bottles. Updated verbally with patient Allergies Medication No Known Drug Allergies Recorded By: Evie Currie; 07/16/2021 12:34:57 PM Family History Mother Family history of dementia (V17.2) (Z81.8) Family history of diabetes mellitus (V18.0) (Z83.3) Father Family history of diabetes mellitus (V18.0) (Z83.3) Family history of myocardial infarction (V17.3) (Z82.49) Review of Systems Constitutional: not feeling tired. Cardiovascular: no intermittent leg claudication and as noted in HPI. Respiratory: no cough and no shortness of breath. Gastrointestinal: no change in bowel habits and no blood in stools. Integumentary: no skin rashes. Neurological: no seizures and no frequent falls. All other systems have been reviewed and are negative for complaint. Vitals Vital Signs Recorded: [id number] 11:16AM Heart Rate62, R Radial Ymwwsnnj777, LUE, Sitting Syqvvkuur06, LUE, Sitting Height5 ft Aelyrf096 lb 5 oz BMI Sqkaouquzk04.32 kg/m2 BSA Calculated1.87 Tobacco Useb) No Falls Screening (Age 18+)a) No falls within the last year Physical Exam Constitutional: alert and in no acute distress. Neck: neck is supple, symmetric, trachea midline, no masses and no thyromegaly . Pulmonary: no increased work of breathing or signs of respiratory distress and lungs clear to auscultation. Cardiovascular: carotid pulses 2+ bilaterally with no bruit , JVP was normal, no thrills , regular rhythm, normal S1 and S2, no murmurs , pedal pulses 2+ bilaterally and no edema . Abdomen: abdomen non-tender, no masses and no hepatomegaly . Skin: skin warm and dry, normal skin turgor . Psychiatric judgment and insight is normal (more content not included)... Normal [employer] Tobacco Screening.on 022 Fall risk assessment a) No falls within the last year [facility] [email or web address] 250 DO Work Phone: Tobacco use status CP b) No [facility] [email or web address] 250 DO Work Phone: XR LSPINE MIN 4 VIEWSon 10-0 XR LSPINE MIN 4 VIEWS EXAMINATION: XR LSPINE MIN 4 VIEWS HISTORY: Low back pain , chronic COMPARISON: XR lumbar spine 09/02/2018 FINDINGS: BONES: Moderate degenerative facet arthropathy L4-5, L5-S1. No fracture spondylolisthesis. DISC SPACES: Mild-moderate narrowing L3-4, L4-5. Borderline marked narrowing L5-S1. PARASPINOUS: Negative. No paraspinous abnormality is seen. OTHER: Negative. IMPRESSION: 1. Moderate-marked degenerative disc disease and moderate degenerative facet arthropathy of the lower lumbar spine; slightly progressed. Electronically authenticated by: MAREN MARTEL Date: 2022-02-05 07:27 Normal [facility] PROF CHEM 8 (BAS METB)on Anion gap [Moles/Vol] 12.0 mmol/L Normal [facility] Comment on above: Performed By: #### B MP #### [facility] [address] [address] [address] Phillip Mazariegos Calcium [Mass/Vol] 9.1 mg/dL Normal 8.5-10.1 [facility] Comment on above: Performed By: #### B MP #### [facility] [address] [address] [address] Phillip Mazariegos Chloride [Moles/Vol] 107 mmol/L Normal 98-107 [facility] Comment on above: Performed By: #### B MP #### [facility] [address] [address] [address] Phillip Mazariegos CO2 [Moles/Vol] 27.0 mmol/L Normal 21.0-32.0 [facility] Comment on above: Performed By: #### B MP #### [facility] [address] [place] [address] Dr. Phillip Mazariegos Creatinine [Mass/Vol] 0.89 mg/dL Normal 0.55-1.02 [facility] Comment on above: Performed By: #### B MP #### [facility] [address] [address] [address] Phillip Mazariegos EGFR-AF TRISTANIAN >60 Normal >=60 [facility] Comment on above: Performed By: #### B MP #### [facility] [address] [place] [address] Dr. Phillip Mazariegos EGFR-NON AF TRISTANIAN >60 Normal >=60 [facility] Comment on above: Performed By: #### B MP #### [facility] [address] [address] [address] Phillip Mazariegos Glucose [Mass/Vol] 109 mg/dL Critically high 74-106 [facility] Comment on above: Performed By: #### B MP #### [facility] [address] [address] [address] Phillip Mazariegos Potassium [Moles/Vol] 4.0 mmol/L Normal 3.5-5.1 [facility] Comment on above: Performed By: #### B MP #### [facility] [address] [address] [address] Phillip Mazariegos Sodium [Moles/Vol] 142 mmol/L Normal 136-145 [facility] Comment on above: Performed By: #### B MP #### [facility] [address] [address] [address] Phillip Mazariegos Urea nitrogen [Mass/Vol] 19.0 mg/dL Critically high 7.0-18.0 [facility] Comment on above: Performed By: #### B MP #### [facility] [address] [address] [address] Phillip Mazariegos Urea nitrogen/Creatinine [Mass ratio] 21.3 mg/mg Normal [facility] Comment on above: Performed By: #### B MP #### [facility] [address] [address] [address] Phillip Mazariegos Tobacco Screening.on 022 Adult depression screening assessment No [facility] [employer] 250 DO Work Phone: Adult depression screening assessment Yes [facility] [employer] 250 DO Work Phone: Fall risk assessment a) No falls within the last year [facility] [employer] 250 DO Work Phone: Tobacco use status CP b) No [facility] [employer] 250 DO Work Phone: Tobacco Screening. 3-Nearly every day [facility] [email or web address] 250 DO Work Phone: Tobacco Screening. 0-Not at all [facility] [employer] 250 DO Work Phone: Tobacco Screening. Very Difficult [facility] [employer] 250 DO Work Phone: CULTURE URINEon 09-09-2021 CULTURE URINE Isolate 1 Proteus mirabilis >100,000 cfu/mL of Isolate 2 Escherichia coli 50,000 cfu/mL of ORGANISM 2 Escherichia coli ANTIBIOTIC M.I.C RX STATUS Ampicillin >=32 R F Ampicillin/Sulbactam >=32 R F Piperacillin/Tazobactam <=4 S F Cefazolin <=4 S F Ceftazidime <=1 S F Ceftriaxone <=1 S F Ertapenem <=0.5 S F Imipenem <=0.25 S F Amikacin <=2 S F Gentamicin >=16 R F Tobramycin 8 I F Ciprofloxacin <=0.25 S F Levofloxacin <=0.12 S F Nitrofurantoin <=16 S F Trimethoprim/Sulfamethoxaz ole >=320 R F ORGANISM 1 Proteus mirabilis ANTIBIOTIC M.I.C RX STATUS Ampicillin <=2 S F Ampicillin/Sulbactam <=2 S F Piperacillin/Tazobactam <=4 S F Cefazolin <=4 S F Ceftazidime <=1 S F Ceftriaxone <=1 S F Ertapenem <=0.5 S F Imipenem 2 S F Amikacin <=2 S F Gentamicin <=1 S F Tobramycin <=1 S F Ciprofloxacin <=0.25 S F Levofloxacin <=0.12 S F Nitrofurantoin 128 R F Trimethoprim/Sulfamethoxaz ole <=20 S F Normal [facility] Comment on above: Performed By: #### U RCX ####[facility] [address] [address]Dr. Phillip Mazariegos CBC AUTO DIFFon 09-07-2021 BASO # 0.0 103/ul Normal 0.0-0.1 [facility] Comment on above: Performed By: #### C BC #### [facility] [address] [place] [address] Dr. Phillip Mazariegos Basophils/100 WBC (Bld) 0.4 % Normal 0.2-2.0 [facility] Comment on above: Performed By: #### C BC #### [facility] [address] [place] [address] Dr. Phillip Mazariegos EO # 0.1 103/ul Normal 0.0-0.7 [facility] Comment on above: Performed By: #### C BC #### [facility] [address] [place] [address] Dr. Phillip Mazariegos Eosinophils/100 WBC (Bld) 1.9 % Normal 0.9-7.0 [facility] Comment on above: Performed By: #### C BC #### [facility] [address] [place] [address] Dr. Phillip Mazariegos Erythrocyte distribution width (RBC) [Ratio] 13.4 % Normal 11.0-15.0 [facility] Comment on above: Performed By: #### C BC #### [facility] [address] [place] [address] Dr. Phillip Mazariegos Hematocrit (Bld) [Volume fraction] 39.6 % Normal 36.0-48.0 [facility] Comment on above: Performed By: #### C BC #### [facility] [address] [place] [address] Dr. Phillip Mazariegos Hemoglobin (Bld) [Mass/Vol] 13.0 g/dL Normal 12.0-16.0 [facility] Comment on above: Performed By: #### C BC #### [facility] [address] [place] [address] Dr. Phillip Mazariegos IG # 0.04 10e3/ul Critically high 0.00-0.03 [facility] Comment on above: Performed By: #### C BC #### [facility] [address] [place] [address] Dr. Phillip Mazariegos IG % 0.5 % Normal 0.0-0.5 [facility] Comment on above: Performed By: #### C BC #### [facility] [address] [place] [address] Dr. Phillip Mazariegos LYMPH # 1.9 103/ul Normal 1.2-3.8 [facility] Comment on above: Performed By: #### C BC #### [facility] [address] [place] [address] Dr. Phillip Mazariegos Lymphocytes/100 WBC (Bld) 26.2 % Normal 20.5-60.0 [facility] Comment on above: Performed By: #### C BC #### [facility] [address] [place] [address] Dr. Phillip Mazariegos MANUAL DIFF REQ NO Normal [facility] Comment on above: Performed By: #### C BC #### [facility] [address] [place] [address] Dr. Phillip Mazariegos MCH (RBC) [Entitic mass] 28.8 pg Normal 26.7-34.0 [facility] Comment on above: Performed By: #### C BC #### [facility] [address] [address] [address] Phillip Mazariegos MCHC (RBC) [Mass/Vol] 32.8 g/dL Normal 29.9-35.2 [facility] Comment on above: Performed By: #### C BC #### [facility] [address] [address] [address] Phillip Mazariegos MCV (RBC) [Entitic vol] 87.8 fL Normal 81.0-99.0 [facility] Comment on above: Performed By: #### C BC #### [facility] [address] [place] [address] Dr. Phillip Mazariegos MONO # 0.5 103/ul Normal 0.3-0.8 [facility] Comment on above: Performed By: #### C BC #### [facility] [address] [place] [address] Dr. Phillip Mazariegos Monocytes/100 WBC (Bld) 6.9 % Normal 1.7-12.0 [facility] Comment on above: Performed By: #### C BC #### [facility] [address] [place] [address] Dr. Phillip Mazariegos NEUT # 4.7 103/ul Normal 1.4-6.5 [facility] Comment on above: Performed By: #### C BC #### [facility] [address] [place] [address] Dr. Phillip Mazariegos Neutrophils/100 WBC (Bld) 64.1 % Normal 43.0-75.0 [facility] Comment on above: Performed By: #### C BC #### [facility] [address] [address] [address] Phillip Mazariegos Platelet mean volume (Bld) [Entitic vol] 9.6 fL Normal 9.5-13.5 [facility] Comment on above: Performed By: #### C BC #### [facility] [address] [place] [address] Dr. Phillip Mazariegos PLT 298 103/ul Normal 150-450 [facility] Comment on above: Performed By: #### C BC #### [facility] [address] [place] [address] Dr. Phillip Mazariegos RBC 4.51 106/ul Normal 4.20-5.40 [facility] Comment on above: Performed By: #### C BC #### [facility] [address] [place] [address] Dr. Phillip Mazariegos WBC 7.3 103/ul Normal 4.0-11.0 [facility] Comment on above: Performed By: #### C BC #### [facility] [address] [place] [address] Dr. Phillip Mazariegos PROF CHEM 8 (BAS METB)on Anion gap [Moles/Vol] 11.7 mmol/L Normal [facility] Comment on above: Performed By: #### T SH, BMP #### [facility] [address] [place] [address] Dr. Phillip Mazariegos Calcium [Mass/Vol] 8.8 mg/dL Normal 8.5-10.1 [facility] Comment on above: Performed By: #### T SH, BMP #### [facility] [address] [place] [address] Dr. Phillip Mazariegos Chloride [Moles/Vol] 103 mmol/L Normal 98-107 [facility] Comment on above: Performed By: #### T SH, BMP #### [facility] [address] [place] [address] Dr. Phillip Mazariegos CO2 [Moles/Vol] 28.0 mmol/L Normal 21.0-32.0 The [facility] Comment on above: Performed By: #### T SH, BMP #### [facility] [address] [place] [address] Dr. Phillip Mazariegos Creatinine [Mass/Vol] 1.02 mg/dL Normal 0.55-1.02 [facility] Comment on above: Performed By: #### T SH, BMP #### [facility] [address] [address] [address] Phillip Mazariegos EGFR-AF TRISTANIAN >60 Normal >=60 The [facility] Comment on above: Performed By: #### T SH, BMP #### [facility] [address] [address] [address] Phillip Mazariegos EGFR-NON AF TRISTANIAN 54 mL/min/1.73m2 Critically low >=60 [facility] Comment on above: Performed By: #### T SH, BMP #### [facility] [address] [address] [address] Phillip Mazariegos Glucose [Mass/Vol] 119 mg/dL Critically high 74-106 [facility] Comment on above: Performed By: #### T SH, BMP #### [facility] [address] [place] [address] Dr. Phillip Mazariegos Potassium [Moles/Vol] 3.7 mmol/L Normal 3.5-5.1 [facility] Comment on above: Performed By: #### T KOSTA, BMP #### [facility] [address] [address] [address] Phillip Mazariegos Sodium [Moles/Vol] 139 mmol/L Normal 136-145 [facility] Comment on above: Performed By: #### T SH, BMP #### [facility] [address] [place] [address] Dr. Phillip Mazariegos Urea nitrogen [Mass/Vol] 19.0 mg/dL Critically high 7.0-18.0 [facility] Comment on above: Performed By: #### T SH, BMP #### [facility] [address] [place] [address] Dr. Phillip Mazariegos Urea nitrogen/Creatinine [Mass ratio] 18.6 mg/mg Normal [facility] Comment on above: Performed By: #### T SH, BMP #### [facility] [address] [address] [address] Phillip Mazariegos TSHon 09-07-2021 TSH 3.616 uIU/mL Normal 0.358-3.740 [facility] Comment on above: Performed By: #### T KOSTA, BMP #### [facility] [address] [address] [address] Phillip Mazariegos TSH RANGE SEE BELOW Normal [facility] Comment on above: Result Comment: <0.3 4 UIU/ml HYPERTHYROID 0.34-5.60 UIU/ml EUTHYROID >5.60 UIU/ml HYPOTHYROID Performed By: #### T SH, [facility] #### [facility] [address] [address] [address] Phillip Mazariegos UA (CLEAN/CATCH) GIANT TIRE REPAIRER/MICRO I F IND.on 09-07-2021 Bilirubin Ql (U) Negative Normal NEGATIVE The [facility] Comment on above: Performed By: #### U ACSIND ####[facility] [address] [address]Dr. Phillip Mazariegos Clarity (U) SL CLOUDY Abnormal CLEAR [facility] Comment on above: Performed By: #### U ACSIND ####[facility] [address] [address]Dr. Phillip Mazariegos Color (U) YELLOW Normal YELLOW [facility] Comment on above: Performed By: #### U ACSIND ####[facility] [address] [place], [place] [address]Dr. Phillip Mazariegos Glucose Ql (U) Negative Normal NEGATIVE The [facility] Comment on above: Performed By: #### U ACSIND ####[facility] [address] [address]Dr. Phillip Mazariegos Hemoglobin Ql (U) Negative Normal NEGATIVE The [facility] Comment on above: Performed By: #### U ACSIND ####[facility] [address] [address]Dr. Phillip Mazariegos Ketones Ql (U) Negative Normal NEGATIVE [facility] Comment on above: Performed By: #### U ACSIND ####[facility] [address] [place], [place] [address]Dr. Phillip Mazariegos LEUKOCYTES Negative Normal NEGATIVE [facility] Comment on above: Performed By: #### U ACSIND ####[facility] [address] [place], [place] [address]Dr. Phillip Mazariegos Nitrite Ql (U) Negative Normal NEGATIVE [facility] Comment on above: Performed By: #### U ACSIND ####[facility] [address] [address]Dr. Phillip Mazariegos pH (U) 6.0 [pH] Normal 5-9 [facility] Comment on above: Performed By: #### U ACSIND ####[facility] [address] [address]Dr. Phillip Mazariegos SPEC GRAVITY >=1.030 Abnormal 1.005-<=1.0 25 [facility] Comment on above: Performed By: #### U ACSIND ####[facility] [address] [address]Dr. Phillip Mazariegos UA PROTEIN Negative Normal NEGATIVE/ TRACE [facility] Comment on above: Performed By: #### U ACSIND ####[facility] [address] [place], [place] [address]Dr. Phillip Mazariegos UR MICRO IND INDICATED Normal [facility] Comment on above: Performed By: #### U ACSIND ####[facility] [address] [address]Dr. Phillip Mazariegos Urobilinogen Qn (U) 0.2 {Trish'U}/dL Normal 0.2 - 1. 0 [facility] Comment on above: Performed By: #### U ACSIND ####[facility] [address] [place], [place] [address]Dr. Phillip Mazariegos URINE MICROSCOPIC ONLYon BACTERIA SMALL Abnormal NONE SEEN [facility] Comment on above: Performed By: #### U MICRO #### [facility] [address] [address] [address] Phillip Mazariegos Bacteria identified Cx Nom (U) INDICATED Normal [facility] Comment on above: Performed By: #### U MICRO #### [facility] [address] [address] [address] Phillip Mazariegos CAST NONE SEEN Normal NONE SEEN [facility] Comment on above: Performed By: #### U MICRO #### [facility] [address] [address] [address] Phillip Mazariegos Crystals LM Nom (Urine sed) NONE SEEN Normal NONE SEEN [facility] Comment on above: Performed By: #### U MICRO #### [facility] [address] [place] [address] Dr. Phillip Mazariegos Epithelial cells LM Ql (Urine sed) FEW Abnormal NONE SEEN /RARE [facility] Comment on above: Performed By: #### U MICRO #### [facility] [address] [place] [address] Dr. Phillip Mazariegos MUCOUS TRACE Abnormal NONE SEEN [facility] Comment on above: Performed By: #### U MICRO #### [facility] [address] [place] [address] Dr. Phillip Mazariegos RBC NONE SEEN Abnormal 0-2 [facility] Comment on above: Performed By: #### U MICRO #### [facility] [address] [place] [address] Dr. Phillip Mazariegos WBC 0-2 Abnormal NONE SEEN [facility] Comment on above: Performed By: #### U MICRO #### [facility] [address] [place] [address] Dr. Phillip Mazariegos XR CHEST 2 Von 09-07-2021 XR CHEST 2 V EXAM: XR CHEST 2 V EXAM: XR CHEST 2 V INDICATION: 65 years old Female Dyspnea COMPARISON: 03/14/20 FINDINGS: The cardiac silhouette is normal. There is no pulmonary edema. The lungs are clear. There is no pneumonia. There is no pneumothorax. There is no abnormal foreign body.pacer noted IMPRESSION: There is no acute abnormality. Electronically authenticated by: ELAINA ARRIAZA Date: 2021-09-07 15:03 Normal [facility] Radiologyon 08-28-2021 XR Chest 2 Views Normal [facility] 320 DO Work Phone: Laboratory - Chemistry and C hemistry - challengeon 08-02-2021 Anion gap [Moles/Vol] 11 mmol/L 10 - 20 [facility] [place] 250 DO Work Phone: Calcium [Mass/Vol] 9.3 mg/dL 8.6 - 10.3 [facility] [place] 250 DO Work Phone: [phone] Chloride [Moles/Vol] 107 mmol/L 98 - 107 [facility] Maryana Plummer DO Work Phone: [phone] CO2 [Moles/Vol] 27 mmol/L 21 - [address] [facility] [address] [facility] DO Work Phone: [phone] Creatinine [Mass/Vol] 0.79 mg/dL See Below [facility] Maryana wa Kavitha DO Work Phone: [phone] Comment on above: Reference Range: 0.5 0 - 1.05 Glucose [Mass/Vol] 98 mg/dL 74 - [address] [facility] Work Phone: [phone] Potassium [Moles/Vol] 3.7 mmol/L 3.5 - 5.3 [facility] [address] [facility] Work Phone: [phone] Sodium [Moles/Vol] 141 mmol/L 136 - 145 [facility] Work Phone: [phone] Urea nitrogen [Mass/Vol] 20 mg/dL 6 - 23 [facility] Work Phone: Laboratory - Coagulationon 0 08-02-2021 aPTT Coag (PPP) [Time] 32 s 26 - [address] [facility] [address] [facility] DO Work Phone: [phone] Comment on above: THE APTT IS NO LONGE R USED FOR MONITORING UNFRACTIONATED HEPARIN THERAPY. FOR MONITORING HEPARIN THERAPY, USE THE HEPARIN ASSAY. INR Coag (PPP) [Relative time] 1.0 {INR} 0.9 - 1.1 [facility] Maryana wa Kavitha DO Work Phone: [phone] PT Coag (PPP) [Time] 11.9 s 9.8 - 13.[address] [facility] [address] [facility] DO Work Phone: [phone] Laboratory - Hematology and Cell countson 08-02-2021 Erythrocyte distribution width (RBC) [Ratio] 13.3 % See Below [facility] Work Phone: [phone] Comment on above: Reference Range: 11. 5 - 14.5 Hematocrit (Bld) [Volume fraction] 37.9 % See Below [facility] Maryana Plummer DO Work Phone: [phone] Comment on above: Reference Range: 36. 0 - 46.0 Hemoglobin (Bld) [Mass/Vol] 12.7 g/dL See Below [facility] Maryana Plummer DO Work Phone: [phone] Comment on above: Reference Range: 12. 0 - 16.0 MCHC (RBC) [Mass/Vol] 33.5 g/dL See Below [facility] Maryana Plummer DO Work Phone: [phone] Comment on above: Reference Range: 32. 0 - 36.0 MCV (RBC) [Entitic vol] 88 fL 80 - 100 [facility] Maryana Plummer DO Work Phone: [phone] Platelets (Bld) [#/Vol] 168 10*3/uL 150 - 450 [facility] Maryana Plummer DO Work Phone: [phone] RBC (Bld) [#/Vol] 4.33 {x10E12/L} See Below [facility] Maryana Plummer DO Work Phone: [phone] Comment on above: Reference Range: 4.0 0 - 5.20 WBC (Bld) [#/Vol] 7.3 10*3/uL 4.4 - 11.3 [facility] Maryana villarreal 250 DO Work Phone: [phone] No Panel Informationon 08-02 [email or web address]?R [email or web address]?Judy vbvON=[id number]&Date=&Time=07%3a58%3a03%3a 00&TestType=ECG&Site=11&Ou tputType=PDF&Ext=PDF [facility] Maryana Plummer DO Work Phone: [phone] Atrial-sensed ventricular-paced rhythm [facility] [place] 250 DO Work Phone: [phone] Abnormal [facility] DO Work Phone: [phone] [facility] DO Work Phone: [phone] [facility] DO Work Phone: [phone] [facility] DO Work Phone: [phone] [facility] DO Work Phone: [phone] [facility] DO Work Phone: [phone] [facility] DO Work Phone: [phone] [facility] 250 DO Work Phone: [phone] [facility] 250 DO Work Phone: [phone] [facility] 250 DO Work Phone: [phone] [facility] 250 DO Work Phone: [phone] [facility] 250 DO Work Phone: [phone] [facility] 250 DO Work Phone: [phone] [facility] 250 DO Work Phone: [phone] [facility] 250 DO Work Phone: [phone] {mL/min/1.73m2} >90 [facility] [place] 250 DO Work Phone: [phone] Comment on above: CALCULATIONS OF PHUC MATED GFR ARE PERFORMED USING THE 2020 CKD-EPI STUDY REFIT EQUATION WITHOUT THE RACE VARIABLE FOR THE IDMS-TRACEABLE CREATININE METHODS.https://jasn.asnjournals.org/content//ASN .2919075720 Radiologyon 08-02-2021 XR Chest 2 Views Normal [facility] 250 DO Work Phone: COVID-19 SOFIAOrdered By: Awais Mayes on 07-31-2021 SARS-CoV+SARS-CoV-2 (COVID-19) Ag IA.rapid Ql (Resp) Negative Negative [facility] Comment on above: This is a duplicate Gretchen SARS Antigen (RUSTAM) result to be used for statistical tracking purpose only. No Panel InformationOrdered By: Daphne Mayes on 07-31-2021 SARS Antigen (LFIA) [facility] Basophils Auto (Bld) [#/Vol] Ordered By: Daphne Mayes on 07-18-2021 Basophils (Bld) [#/Vol] 0.0 10*3/uL 0.0-0.2 [facility] Basophils/100 WBC Auto (Bld) Ordered By: Daphne Mayes on 07-18-2021 Basophils/100 WBC (Bld) 0.5 % [facility] Blood hemoglobin measurement (mass/volume)Ordered By: Daphne Mayes on 07-18-2021 Hemoglobin (Bld) [Mass/Vol] 13.2 g/dL 11.8-15.4 [facility] Blood leukocytes automated c ount (number/volume)Ordered By: Daphne Mayes on 07-18-2021 WBC (Bld) [#/Vol] 6.3 10*3/uL 4.5-11.0 [facility] COVID-19 Positive/NegativeOr dered By: Daphne Mayes on 07-18-2021 SARS-CoV-2 (COVID-19) N gene MELL+probe Ql (Resp) Positive Negative [facility] Comment on above: Positive results ying l only be called to Providers for the following groups of patients: Pre-Surgical Testing, Emergency Room, and Inpatients.Testing for SARS-CoV-2 by RT-PCRThis test was developed and its performance characteristics determined by [employer] ([employer] and validated at the [facility]. This test has not been FDA cleared or approved. This test has been authorized by FDA under an Emergency Use Authorization (EUA). This test has been validated in accordance with the FDA's Guidance Document (Policy for Diagnostics Testing in Laboratories Certified to Perform High Complexity Testing under CLIA prior to Emergency Use Authorization for Coronavirus Disease-2019 during the Public Health Emergency) issued on August 05, 2019. This test is only authorized for the duration of time the declaration that circumstances exist justifying the authorization of the emergency use of in vitro diagnostic tests for detection of SARS-CoV-2 virus and/or diagnosis of COVID-19 infection under section 564(b)(1) of the Act, 21 U.S.C. 360bbb-3(b)(1), unless the authorization is terminated or revoked sooner. Creatinine and Glomerular fi ltration rate.predicted panel (S/P/Bld)Ordered By: Daphne Mayes on 07-18-2021 Creatinine [Mass/Vol] 0.76 mg/dL 0.44-1.03 [facility] Eosinophils Auto (Bld) [#/Vo l]Ordered By: Daphne Mayes on 07-18-2021 Eosinophils (Bld) [#/Vol] 0.2 10*3/uL 0.0-0.45 [facility] Eosinophils/100 WBC Auto (Bl d)Ordered By: Daphne Mayes on 07-18-2021 Eosinophils/100 WBC (Bld) 2.7 % [facility] Erythrocyte distribution wid th Auto (RBC) [Ratio]Ordered By: Daphne Mayes on 07-18-2021 Erythrocyte distribution width (RBC) [Ratio] 14.1 % 11.9-15.3 [facility] Estimated glomerular filtrat ion rate (GFR) non- AmericanOrdered By: Daphne Mayes on 07-18-2021 GFR/1.73 sq M.predicted among non-blacks MDRD (S/P/Bld) [Vol rate/Area] > 60 mL/Min [facility] Hematocrit Auto (Bld) [Volum e fraction]Ordered By: Daphne Mayes on 07-18-2021 Hematocrit (Bld) [Volume fraction] 39.3 % 34.0-46.4 [facility] - CoagulationOrde red By: Daphne Mayes on 07-18-2021 PT Coag (PPP) [Time] 12.7 s 9.0-12.9 [facility] - Hematology and Cell countsOrdered By: Daphne Mayes on 07-18-2021 Nucleated RBC/100 WBC (Bld) [Ratio] 0.2 % 0-0.5 [facility] Lymphocytes Auto (Bld) [#/Vo l]Ordered By: Daphne Mayes on 07-18-2021 Lymphocytes (Bld) [#/Vol] 1.8 10*3/uL 1.00-4.8 [facility] Lymphocytes/100 WBC Auto (Bl d)Ordered By: Daphne Mayes on 07-18-2021 Lymphocytes/100 WBC (Bld) 28.3 % [facility] MCH Auto (RBC) [Entitic mass ]Ordered By: Daphne Mayes on 07-18-2021 MCH (RBC) [Entitic mass] 29.3 pg 24.7-34.3 [facility] MCHC Auto (RBC) [Mass/Vol]Or dered By: Daphne Mayes on 07-18-2021 MCHC (RBC) [Mass/Vol] 33.5 g/dL 32.0-35.0 [facility] MCV Auto (RBC) [Entitic vol] Ordered By: Daphne Mayes on 07-18-2021 MCV (RBC) [Entitic vol] 87.5 fL 80-100 [facility] Monocytes Auto (Bld) [#/Vol] Ordered By: Daphne Mayes on 07-18-2021 Monocytes (Bld) [#/Vol] 0.5 10*3/uL 0.0-0.8 [facility] Monocytes/100 WBC Auto (Bld) Ordered By: Daphne Mayes on 07-18-2021 Monocytes/100 WBC (Bld) 7.5 % [facility] Neutrophils Auto (Bld) [#/Vo l]Ordered By: Daphne Mayes on 07-18-2021 Neutrophils (Bld) [#/Vol] 3.9 10*3/uL 1.8-7.7 [facility] Neutrophils/100 WBC Auto (Bl d)Ordered By: Daphne Mayes on 07-18-2021 Neutrophils/100 WBC (Bld) 61.0 % [facility] No Panel InformationOrdered By: Daphne Mayes on 07-18-2021 Estimated GFR () > 60 mL/Min [facility] Comment on above: GFR estimated refere nce range: According to KDOQI guidelines, <60 ml/min/1.73m2 is sufficient to diagnose a patient with chronic kidney disease. Pharmacy Creatinine Clearance (Chem N/A [facility] Platelet mean volume Auto (B ld) [Entitic vol]Ordered By: Daphne Mayes on 07-18-2021 Platelet mean volume (Bld) [Entitic vol] 8.5 fL 6.3-10.7 [facility] Platelet poor plasma interna tional normalized ratio (INR) by coagulation assay (relatOrdered By: Daphne Mayes on 07-18-2021 INR Coag (PPP) [Relative time] 1.1 {INR} [facility] Comment on above: INR Therapeutic Rang e A) Pre- and Peroperative OAT started two weeks before surgery. NOT HIP SURGERY: 1.5 - 2.5 HIP SURGERY: 2 - 3B) Primary and secondary prevention of venous THROMBOSIS: 2 - 3C) Active venous thrombosis, pulmonary embolismand prevention of recurrent venous thrombosis: 2 - 3D) Prevention of arterial thromboembolismincluding patients with mechanical heart valves: 3 - 4.5 Platelets Auto (Bld) [#/Vol] Ordered By: Daphne Mayes on 07-18-2021 Platelets (Bld) [#/Vol] 282 10*3/uL 150-450 [facility] RBC Auto (Bld) [#/Vol]Ordere d By: Daphne Mayes on 07-18-2021 RBC (Bld) [#/Vol] 4.49 10*6/uL 3.60-5.00 [facility] Serum or plasma calcium khurram urement (mass/volume)Ordered By: Daphne Mayes on 07-18-2021 Calcium [Mass/Vol] 9.3 mg/dL 8.2-10.2 [facility] Serum or plasma chloride stephen surement (moles/volume)Ordered By: Daphne Mayes on 07-18-2021 Chloride [Moles/Vol] 103 mmol/L 95-114 [facility] Serum or plasma glucose khurram urement (mass/volume)Ordered By: Daphne Mayes on 07-18-2021 Glucose [Mass/Vol] 118 mg/dL 70-100 [facility] Comment on above: ADA recommended refe rence rangeRandom Glucose Reference Range is dependent on time and content of last meal. Glucose of more than 200 mg/dL in a nonstressed, ambulatory subject supports the diagnosis of Diabetes Mellitus. Serum or plasma potassium me asurement (moles/volume)Ordered By: Daphne Mayes on 07-18-2021 Potassium [Moles/Vol] 3.9 mmol/L 3.5-5.1 [facility] Serum or plasma sodium measu rement (moles/volume)Ordered By: Daphne Mayes on 07-18-2021 Sodium [Moles/Vol] 139 mmol/L 136-146 [facility] Serum or plasma total carbon dioxide measurement (moles/volume)Ordered By: Daphen Mayes on 07-18-2021 CO2 [Moles/Vol] 26.2 mmol/L 22.0-30.0 [facility] Serum or plasma urea nitroge n measurement (mass/volume)Ordered By: Daphne Mayes on 07-18-2021 Urea nitrogen [Mass/Vol] 16 mg/dL 9-23 [facility] CBCon 08-01-2020 Erythrocyte distribution width (RBC) [Ratio] 13.4 % Normal 11.5 - 14.5 [facility] Comment on above: Performed By: #### C BC #### [address] [id number] Hematocrit (Bld) [Volume fraction] 41.9 % Normal 36.0 - 46.0 [facility] Comment on above: Performed By: #### C BC #### [address] [id number] Hemoglobin (Bld) [Mass/Vol] 13.3 g/dL Normal 12.0 - 16.0 [facility] Comment on above: Performed By: #### C BC #### [address] [id number] MCHC (RBC) [Mass/Vol] 31.7 g/dL Low 32.0 - 36.0 [facility] Comment on above: Performed By: #### C BC #### [address] [id number] MCV (RBC) [Entitic vol] 91 fL Normal 80 - 100 [facility] Comment on above: Performed By: #### C BC #### [address] [id number] Platelets (Bld) [#/Vol] 205 10*3/uL Normal 150 - 450 [facility] Comment on above: Performed By: #### C BC #### [address] [id number] RBC (Bld) [#/Vol] 4.62 x10E12/L Normal 4.00 - 5.20 [facility] Comment on above: Performed By: #### C BC #### [address] [id number] WBC (Bld) [#/Vol] 7.4 10*3/uL Normal 4.4 - 11.3 [facility] [place] Comment on above: Performed By: #### C BC #### [address] [id number] CREATININEon 08-01-2020 Creatinine [Mass/Vol] 0.77 mg/dL Normal 0.50 - 1.05 [facility] Comment on above: Performed By: #### C REAT #### [address] [id number] Creatinine [Mass/Vol] mg/dL Normal >60 [facility] Comment on above: Result Comment: CALC ULATIONS OF ESTIMATED GFR ARE PERFORMED USING THE MDRD STUDY EQUATION FOR THE IDMS-TRACEABLE CREATININE METHODS. CLIN CHEM 2007;53:766-72 Performed By: #### C REAT #### [address] [id number] ELECTROLYTE PANELon 08-02-19 21 Anion gap [Moles/Vol] 12 mmol/L Normal 10 - 20 [facility] Comment on above: Performed By: #### E LECT #### [address] [id number] Chloride [Moles/Vol] 107 mmol/L Normal 98 - 107 [facility] Comment on above: Performed By: #### E LECT #### [address] [id number] HCO3 (Bld) [Moles/Vol] 28 mmol/L Normal 21 - 32 [facility] Comment on above: Performed By: #### E LECT #### [address] [id number] Potassium [Moles/Vol] 3.7 mmol/L Normal 3.5 - 5.3 [facility] Comment on above: Performed By: #### E LECT #### [address] [id number] Sodium [Moles/Vol] 143 mmol/L Normal 136 - 145 [facility] [place] Comment on above: Performed By: #### E LECT #### [address] [id number] UREA NITROGENon 08-01-2020 Urea nitrogen [Mass/Vol] 17 mg/dL Normal 6 - 23 [facility] Comment on above: Performed By: #### U SHARON #### [address] [id number] CNNURSEon 11-13-2018 CNNURSE Nurse Visit (CARDMN) -- NYA BELL ([id number]) 1955 F Date Time Provider Department 11/13/18 7:00 AM RESEARCH NURSE CARD BALA DAS During your visit today, we recorded the following information about you: Aba Rodriguez [facility] 11/13/2018 4:02 PM Signed IRB [id number] TRIM-AF Study (Upstream Targeting for the Prevention of Atrial Fibrillation: Targeting Risk Interventions and Metformin for Atrial Fibrillation) PI: Jose Hodge I called the patient to follow up on potential participation in the TRIM-AF (NO AF Biomarker) study. The patient was unavailable and I left a voicemail to return my call at her convenience. Aba Rodriguez [facility] November 13, 2018 2:31 PM Referring Provider: JONA WAN [[id number]] Allergies As of Date: 11/13/2018 Noted Allergy Reaction ADHESIVE TAPE (ROSINS) 10/25/2013 16 - Unknown Date Reviewed: 06/03/2017 Reviewed by: Juan Candelario (Rn) MICHEL Jones - Fully Assessed Reason for Visit: Research [293] Primary Visit Diagnosis:IRB# [id number] TRIM-AF [Z00.6] Prescriptions as of 11/13/2018 Sig: CARVEDILOL 6.25 MG TABLET Take 1 tablet by mouth twice * FEBUXOSTAT 80 MG TABLET Take 80 mg by mouth once santiago* SPIRONOLACTONE 25 MG TABLET TAKE 1 TABLET BY MOUTH EVERY * LISINOPRIL 10 MG TABLET Take 1 tablet by mouth once d* OMEPRAZOLE 40 MG CAPSULE,HARRIS* Take 40 mg by mouth once santiago* Problem List As Of Date 11/13/2018 Noted Resolved CHF (congestive heart failure) (HCC) [I50.9] INVALID FOR* Hypertension [I10] INVALID FOR* LBBB (left bundle branch block) [I44.7] INVALID FOR* IRB # [id number]: Wrap-It Study [Z00.6] INVALID FOR* Sleep apnea [G47.30] INVALID FOR* ICD (implantable cardioverter-defibrillator ), b*INVALID FOR* Obesity [E66.9] INVALID FOR* Encounter Status:Closed by ALMAKOSTAROSIAugusto [facility] on 11/13[facility]18 [facility] PROGRESSon 11-13-2018 PROGRESS HNO ID: [id number] Author: Aba Fraustomoy [facility] Service: ? Author Type: ? Type: Progress Notes Filed: 11/13/2018 4:02 PM Note Text: IRB [id number] TRIM-AF Study (Upstream Targeting for the Prevention of Atrial Fibrillation: Targeting Risk Interventions and Metformin for Atrial Fibrillation) PI: Jose Hodge I called the patient to follow up on potential participation in the TRIM-AF (NO AF Biomarker) study. The patient was unavailable and I left a voicemail to return my call at her convenience. Aba Rodriguez [facility] November 13, 2018 2:31 PM [facility] Coding Summary.on 07-02-2017 Coding Summary. CODING DATE: 018 [facility] STATUS: Home (Routine DC) PAYOR: Medicare APC DESCRIPTION 5524 Level 4 Imaging without Contrast ADMIT DX: REASON FOR VISIT DX: I50.22 Chronic systolic (congestive) heart failure FINAL DX: PRINCIPAL: I50.22 Chronic systolic (congestive) heart failure SECONDARY: E66.09 Other obesity due to excess calories PYMT PROC APC STAT DESCRIPTION DOCTOR NAME DATE NOTE: The code number assigned matches the documented diagnosis and / or procedure in the patient's chart. However, the narrative phrase printed from the coding software may appear abbreviated, or result in slightly different terminology. Coded By: Rosa Stubbs Date Saved: 07/02/2017 08:19 am Normal [facility] Vital Signs Date Time Vital Sign Value Performing Clinician Facility 12-22-2023 13:59-0400 Body height 151.[address] [facility] 12-22-2023 13:59-0400 Body mass index (BMI) [Ratio] 39.5 kg/m2 [facility] 12-22-2023 13:59-0400 Body temperature 98.6 [degF] [facility] 12-22-2023 13:59-0400 Body weight 90.[address] [facility] 12-22-2023 13:59-0400 Heart rate 95 /min [facility] 12-22-2023 13:59-0400 Respiratory rate 18 /min [facility] 12-22-2023 13:59-0400 SaO2% (BldA) [Mass fraction] 97 % [facility] 08-29-2023 10:30-0400 Body height 152.4 cm Daphne Mayes MD Work Phone: [facility] 08-29-2023 10:30-0400 Body mass index (BMI) [Ratio] 37.5 kg/m2 Daphne Mayes MD Work Phone: [facility] 08-29-2023 10:30-0400 Body weight 87.09 kg Daphne Mayes MD Work Phone: [facility] 08-29-2023 10:30-0400 Diastolic blood pressure 80 mm[Hg] Daphne Mayes MD Work Phone: [facility] 08-29-2023 10:30-0400 Heart rate 64 /min Daphne Mayes MD Work Phone: [facility] 08-29-2023 10:30-0400 Systolic blood pressure 136 mm[Hg] Daphne Mayes MD Work Phone: [facility] 05-28-2023 11:30-0500 Body height 151.13 cm Anupam Pereira Other [email or web address] Other 05-28-2023 11:30-0500 Body mass index (BMI) [Ratio] 37.33 kg/m2 Anupam Pereira Other [email or web address] Other 05-28-2023 11:30-0500 Body weight 85.28 kg Anupam Pereira Other [email or web address] Other 05-28-2023 11:30-0500 Diastolic blood pressure 82 mm[Hg] Anupam Pereira Other [email or web address] Other 05-28-2023 11:30-0500 Systolic blood pressure 121 mm[Hg] Anupam Pereira Other [email or web address] Other 05-12-2023 13:32-0500 Body height 152.4 cm Lupe Boswell MD Work Phone: [facility] 05-12-2023 13:32-0500 Body mass index (BMI) [Ratio] 37.3 kg/m2 Lupe Boswell MD Work Phone: [facility] 05-12-2023 13:32-0500 Body weight 86.64 kg Lupe Boswell MD Work Phone: [facility] 05-12-2023 13:32-0500 Diastolic blood pressure 60 mm[Hg] Lupe Boswell MD Work Phone: [facility] 05-12-2023 13:32-0500 Heart rate 62 /min Lupe Boswell MD Work Phone: [facility] 05-12-2023 13:32-0500 Systolic blood pressure 106 mm[Hg] Lupe Boswell MD Work Phone: [facility] 02-25-2023 10:10-0400 Body height 152.4 cm Maurizio Gregory-Ellaconatalie GATE CLERK-EQUIPMENT VALIDATION ENGINEER Work Phone: [facility] 02-25-2023 10:10-0400 Body mass index (BMI) [Ratio] 37.69 kg/m2 Maurizio Gregory-Ellacott GATE CLERK-EQUIPMENT VALIDATION ENGINEER Work Phone: [facility] 02-25-2023 10:10-0400 Body weight 87.54 kg Maurizio Gregory-Ellacott GATE CLERK-EQUIPMENT VALIDATION ENGINEER Work Phone: [facility] 02-25-2023 10:10-0400 Diastolic blood pressure 80 mm[Hg] Maurizio Gregory-Ellacott GATE CLERK-EQUIPMENT VALIDATION ENGINEER Work Phone: [facility] 02-25-2023 10:10-0400 Heart rate 74 /min Maurizio Gregory-Ellacott GATE CLERK-EQUIPMENT VALIDATION ENGINEER Work Phone: [facility] 02-25-2023 10:10-0400 Systolic blood pressure 132 mm[Hg] Maurizio Gregory-Ellacott GATE CLERK-EQUIPMENT VALIDATION ENGINEER Work Phone: [facility] 01-09-2023 13:15-0400 Body height 151.13 cm Anupam Pereira Other [email or web address] Other 01-09-2023 13:15-0400 Body mass index (BMI) [Ratio] 38.05 kg/m2 Anupam Pereira Other [email or web address] Other 01-09-2023 13:15-0400 Body weight 86.91 kg Anupam Pereira Other [email or web address] Other 01-09-2023 13:15-0400 Diastolic blood pressure 95 mm[Hg] Anupam Pereira Other [email or web address] Other 01-09-2023 13:15-0400 Systolic blood pressure 140 mm[Hg] Anupam Pereira Other [email or web address] Other 12-31-2022 14:15-0400 Body height 151.13 cm Anupam Pereira Other [email or web address] Other 12-31-2022 14:15-0400 Body mass index (BMI) [Ratio] 38.32 kg/m2 Anupam Pereira Other [email or web address] Other 12-31-2022 14:15-0400 Body temperature 97.9 [degF] Anupam Pereira Other [email or web address] Other 12-31-2022 14:15-0400 Body weight 87.54 kg Anupam Pereira Other [email or web address] Other 12-31-2022 14:15-0400 Diastolic blood pressure 83 mm[Hg] Anupam Pereira Other [email or web address] Other 12-31-2022 14:15-0400 Systolic blood pressure 127 mm[Hg] Anupam Pereira Other [email or web address] Other 12-24-2022 10:45-0400 Body height 151.13 cm Anupam Pereira Other [email or web address] Other 12-24-2022 10:45-0400 Body mass index (BMI) [Ratio] 38.52 kg/m2 Anupam Pereira Other [email or web address] Other 12-24-2022 10:45-0400 Body weight 88 kg Anupam Pereira Other [facility] [employer] Other 12-24-2022 10:45-0400 Diastolic blood pressure 75 mm[Hg] Anupam Pereira Other [facility] [employer] Other 12-24-2022 10:45-0400 Systolic blood pressure 111 mm[Hg] Anupam Pereira Other [facility] [employer] Other 10-09-2022 10:59-0400 Body height 152.4 cm Anupam Pereira Work Phone: [facility] [employer] [facility] DO Work Phone: 10-09-2022 10:59-0400 Body mass index (BMI) [Ratio] 39.26 kg/m2 Anupam Pereira Work Phone: [facility] [employer] DO Work Phone: 10-09-2022 10:59-0400 Body surface area Derived from formula 1.87 m2 Anupam Pereira Work Phone: [facility] [employer] DO Work Phone: 10-09-2022 10:59-0400 Body weight 91.17 kg Anupam Pereira Work Phone: [facility] [employer] 250 DO Work Phone: 10-09-2022 10:59-0400 Diastolic blood pressure 64 mm[Hg] Anupam Pereira Work Phone: [facility] [employer] DO Work Phone: 10-09-2022 10:59-0400 Heart rate 72 /min Anupam Pereira Work Phone: [facility] [employer] 250 DO Work Phone: 10-09-2022 10:59-0400 Systolic blood pressure 124 mm[Hg] Anupam Pereira Work Phone: [employer] 250 DO Work Phone: 05-21-2022 15:30-0500 Body height 151.13 cm Anupam Pereira Other [email or web address] Other 05-21-2022 15:30-0500 Body mass index (BMI) [Ratio] 40.11 kg/m2 Anupam Pereira Other [email or web address] Other 05-21-2022 15:30-0500 Body weight 91.63 kg Anupam Pereira Other [email or web address] Other 05-21-2022 15:30-0500 Diastolic blood pressure 70 mm[Hg] Anupam Pereira Other [email or web address] Other 05-21-2022 15:30-0500 SaO2% (BldA) [Mass fraction] 97 % Anupam Pereira Other [email or web address] Other 05-21-2022 15:30-0500 Systolic blood pressure 126 mm[Hg] Anupam Pereira Other [email or web address] Other 04-17-2022 11:16-0500 Body height 152.4 cm Anupam Pereira Work Phone: [employer] [employer] 250 DO Work Phone: 04-17-2022 11:16-0500 Body mass index (BMI) [Ratio] 39.32 kg/m2 Anupam Pereira Work Phone: [employer] 250 DO Work Phone: 04-17-2022 11:16-0500 Body surface area Derived from formula 1.87 m2 Anupam Pereira Work Phone: [facility] 250 DO Work Phone: 04-17-2022 11:16-0500 Body weight 91.31 kg Anupam ePreira Work Phone: [facility] 250 DO Work Phone: 04-17-2022 11:16-0500 Diastolic blood pressure 84 mm[Hg] Anupam Pereira Work Phone: [facility] 250 DO Work Phone: 04-17-2022 11:16-0500 Heart rate 62 /min Anupam Pereira Work Phone: [facility] 250 DO Work Phone: 04-17-2022 11:16-0500 Systolic blood pressure 126 mm[Hg] Anupam Pereira Work Phone: [facility] 250 DO Work Phone: 10-09-2021 13:20-0400 Body height 152.4 cm Anupam Pereira Work Phone: [facility] 250 DO Work Phone: 10-09-2021 13:20-0400 Body mass index (BMI) [Ratio] 40.23 kg/m2 Anupam Pereira Work Phone: [facility] 250 DO Work Phone: 10-09-2021 13:20-0400 Body surface area Derived from formula 1.89 m2 Anupam Pereira Work Phone: [facility] 250 DO Work Phone: 10-09-2021 13:20-0400 Body weight 93.44 kg Anupam Pereira Work Phone: [facility] 250 DO Work Phone: 10-09-2021 13:20-0400 Diastolic blood pressure 89 mm[Hg] Anupam Pereira Work Phone: [facility] 250 DO Work Phone: 10-09-2021 13:20-0400 Heart rate 68 /min Anupam Pereira Work Phone: [facility] 250 DO Work Phone: 10-09-2021 13:20-0400 Systolic blood pressure 144 mm[Hg] Anupam Pereira Work Phone: [facility] 250 DO Work Phone: 10-09-2021 13:20-0400 12 1 Anupam Pereira Work Phone: [facility] 250 DO Work Phone: Comment on above: PHQ-9 TS 08-09-2021 15:58-0400 Body height 152.4 cm Anupam Pereira Work Phone: [facility] 250 DO Work Phone: 08-09-2021 15:58-0400 Body mass index (BMI) [Ratio] 41.21 kg/m2 Anupam Pereira Work Phone: [facility] 250 DO Work Phone: 08-09-2021 15:58-0400 Body surface area Derived from formula 1.91 m2 Anupam Pereira Work Phone: [facility] 250 DO Work Phone: 08-09-2021 15:58-0400 Body temperature 97 [degF] Anupam Pereira Work Phone: [facility] 250 DO Work Phone: 08-09-2021 15:58-0400 Body weight 95.71 kg Anupam Pereira Work Phone: [facility] 250 DO Work Phone: 08-09-2021 15:58-0400 Diastolic blood pressure 78 mm[Hg] Anupam Pereira Work Phone: [facility] 250 DO Work Phone: 08-09-2021 15:58-0400 Heart rate 82 /min Anupam Pereira Work Phone: [facility] 250 DO Work Phone: 08-09-2021 15:58-0400 Systolic blood pressure 132 mm[Hg] Anupam Pereira Work Phone: [facility] 250 DO Work Phone: Encounters Encounter Date Encounter Type Care Provider Facility Start: 12-22-2023 End: 12-22-2023 ambulatory [facility] Work Phone: Start: 12-22-2023 End: 12-22-2023 Patient encounter procedure [facility] Work Phone: Start: 12-02-2023 End: 12-02-2023 Patient encounter procedure MD Anupam Pereira Work Phone: [facility]Pac[facility] Check Start: 12-02-2023 End: 12-02-2023 ambulatory MD Anupam Pereira Work Phone: [facility] Work Phone: Start: 12-02-2023 Non-patient / Non-visit [facility] Start: 11-18-2023 End: 11-18-[address] [facility] Ambulatory Start: 08-29-2023 End: 08-30-2023 ambulatory ANUPAM PEREIRA [facility] Start: 08-29-2023 End: 08-29-2023 Office outpatient visit 25 minutes Daphne Mayes MD Work Phone: [facility] Comment on above: ICD (implantable car dioverter-defibrillator) in place (Primary Dx); NICM (nonischemic cardiomyopathy) (Multi) [I42.8]; Chronic systolic congestive heart failure (Multi); Cardiomyopathy, unspecified type (Multi); Dyspnea on exertion; Obstructive sleep apnea syndrome in adult; Class 2 obesity without serious comorbidity with body mass index (BMI) of 37.0 to 37.9 in adult, unspecified obesity type; Never smoked cigarettes; Encounter for medication review and counseling; Encounter to discuss treatment options Start: 08-29-2023 End: 08-29-2023 ambulatory [facility] Ambulatory Start: 05-28-2023 Office outpatient vi sit 15 minutes Anupam Pereira [facility] Start: 05-28-2023 End: 05-28-2023 Patient encounter procedure MD Anupam Pereira Work Phone: [facility]Pac[facility] Check Start: 05-28-2023 End: 05-28-2023 ambulatory MD Anupam Pereira Work Phone: [email or web address] Other Start: 05-20-2023 End: 05-20-2023 ambulatory Anupam Pereira Other [email or web address] Other Start: 05-20-2023 Telephone encounter Anupam Pereira [facility] Start: 05-12-2023 End: 05-12-2023 Office outpatient visit 25 minutes Lupe Boswell MD Work Phone: [facility] Comment on above: Cardiomyopathy, unsp ecified type (CMS/HCC) (Primary Dx); ICD (implantable cardioverter-defibrillator) in place; Obstructive sleep apnea syndrome in adult; Class 2 obesity without serious comorbidity with body mass index (BMI) of 37.0 to 37.9 in adult, unspecified obesity type Start: 05-12-2023 End: 05-12-2023 ambulatory LUPE Denney [facility] Ambulatory Start: 05-08-2023 End: 05-08-2023 Patient encounter procedure MD Anupam Pereira Work Phone: [facility] Work Phone: Start: 02-25-2023 End: 02-25-2023 Office outpatient visit 25 minutes Maurizio Jorgensen APRN-EQUIPMENT VALIDATION ENGINEER Work Phone: [facility] Comment on above: ICD (implantable car dioverter-defibrillator) in place (Primary Dx); Morbid obesity (CMS/HCC); Chronic systolic congestive heart failure (CMS/HCC); Cardiomyopathy, unspecified type (CMS/HCC); Dyspnea on exertion; Obstructive sleep apnea syndrome in adult; Other fatigue Start: 02-25-2023 End: 02-25-2023 [facility] Start: 01-09-2023 End: 01-09-2023 ambulatory Anupam Pereira Other [email or web address] Other Start: 01-09-2023 Office outpatient vi sit 15 minutes Anupam Pereira [facility] Start: 12-31-2022 End: 12-31-2022 ambulatory Anupam Pereira Other [email or web address] Other Start: 12-31-2022 Office outpatient vi sit 15 minutes Anupam Pereira [facility] Start: 12-24-2022 End: 12-24-2022 ambulatory Anupam Pereira Other [email or web address] Other Start: 12-24-2022 Office outpatient vi sit 15 minutes Anupam Pereira [facility] Start: 12-20-2022 End: 12-20-2022 ambulatory Anupam Pereira Other [email or web address] Other Start: 12-20-2022 Telephone encounter Anupam Pereira [facility] Start: 12-16-2022 End: 12-16-2022 ambulatory Anupam Pereira Other [email or web address] Other Start: 12-16-2022 Telephone encounter Anupam Pereira [facility] Start: 11-28-2022 End: 11-28-2022 ambulatory MD Anupam Pereira Work Phone: [facility] Work Phone: Start: 11-28-2022 End: 11-28-2022 Patient encounter procedure MD Anupam Pereira Work Phone: [facility] Check Start: 11-22-[address] Lupe Boswell Facility:[id number] Start: 10-09-[address] Lupe Boswell Facility:[id number] Start: 10-09-2022 Office outpatient vi sit 25 minutes Anupam Pereira Work Phone: [facility] DO Work Phone: Start: 08-28-[address] Anupam Pereira Facility:[id number] Start: 08-28-2022 End: 08-28-2022 ambulatory MD Anupam Pereira Work Phone: [facility] Work Phone: Start: 08-28-2022 End: 08-28-2022 Patient encounter procedure MD Anupam Pereira Work Phone: [facility] Check Start: 08-22-[address] Lupe Boswell Facility:[id number] Start: 08-15-2022 End: 08-16-2022 ambulatory YOSHI OLVERAMISANDHYA . Facility:H1 Start: 07-17-[address] Lupe Boswell Facility:[id number] Start: 07-16-2022 End: 07-16-[address] ANUPMA PEREIRA Facility:H1 Start: 07-11-2022 Encounter for preprocedural cardiovascular examination DR JANICE IRVING . [facility] Start: 07-09-2022 End: 07-10-[address] ANUPAM PEREIRA Facility:H1 Start: 07-09-2022 End: 07-10-2022 Encounter for preprocedural cardiovascular examination DR ANUPAM PEREIRA Facility:H1 Start: 06-20-2022 End: 06-21-[address] ANUPAM PEREIRA Facility:H1 Start: 06-04-2022 End: 06-04-[address] ANUPAM PEREIRA Facility:H1 Start: 05-23-2022 End: 05-24-[address] ANUPAM PEREIRA [facility] [employer] Other Start: 05-23-2022 Telephone encounter Anupam Pereira [facility] Start: 05-21-2022 End: 05-22-[address] ANUPAM PEREIRA [facility] [employer] Other Start: 05-21-2022 Office outpatient vi sit 15 minutes Anupam MATOS [facility] Start: 05-17-2022 End: 05-17-2022 ambulatory MD Anupam Pereira Work Phone: [facility] Work Phone: Start: 05-17-2022 End: 05-17-2022 Patient encounter procedure MD Anupam Pereira Work Phone: [facility] Start: 05-07-2022 End: 05-07-[address] ANUPAM PEREIRA Facility:H1 Start: 04-23-2022 End: 04-24-[address] ANUPAM PEREIRA Facility:H1 Start: 04-17-2022 Office outpatient vi sit 25 minutes Anupam Pereira Work Phone: [facility] 250 DO Work Phone: Start: 04-17-[address] Lupe Boswell Facility: Start: 04-09-2022 End: 04-10-[address] ANUPAM PEREIRA Facility:H1 Start: 02-12-[address] Anupam Pereira Facility:90 Start: 02-12-2022 End: 02-12-2022 ambulatory MD Anupam Pereira Work Phone: [facility] Work Phone: Start: 02-12-2022 End: 02-12-2022 Patient encounter procedure MD Anupam Pereira Work Phone: [facility] Start: 02-04-2022 End: 02-05-[address] ANUPAM PEREIRA Facility:H1 Start: 02-01-[address] Anupam Pereira Facility: Start: 11-07-2021 End: 11-07-2021 Patient encounter procedure MD Anupam Pereira Work Phone: [facility] Start: 11-06-2021 End: 11-07-[address] LUPE BOSWELL Facility:H1 Start: 10-09-2021 Office outpatient vi sit 25 minutes Anupam Pereira Work Phone: [facility] 250 DO Work Phone: Start: 09-07-2021 End: 09-08-[address] ANUPAM PEREIRA Facility:H1 Start: 08-30-2021 Chart Update Anupam Pereira Work Phone: [facility] 320 DO Work Phone: Start: 08-10-2021 Rx Renewal Anupam Pereira Work Phone: [facility] 250 DO Work Phone: Start: 08-09-2021 Postop follow up vis it related to original px Anupam Pereira Work Phone: [facility] 250 DO Work Phone: Start: 07-31-2021 End: 07-31-2021 Patient encounter procedure MD Anupam Pereira Work Phone: [facility] COVID Testing Start: 07-23-2021 AUDIT Anupam Pereira Work Phone: [facility] 3 DO Work Phone: Start: 07-18-2021 End: 07-18-2021 Patient encounter procedure MD Anupam Pereira Work Phone: [facility] Swab Start: 07-11-2021 Message Anupam Pereira Work Phone: [facility] 320 DO Work Phone: Start: 07-04-2021 End: 07-04-2021 Patient encounter procedure MD Anupam Pereira Work Phone: [facility]Pac[facility] Check Start: 06-29-2021 AUDIT Anupam Pereira Work Phone: [facility] 320 DO Work Phone: Start: 04-03-2021 Rx Renewal Anupam Kurtz Randall Work Phone: [facility] 320 DO Work Phone: Start: 07-01-2017 End: 07-02-2017 Ambulatory Haile Gonzalez Facility:[facility] Patient encounter status Anupam Tessie Randall Work Phone: [facility] 320 DO Work Phone: End: 10-09-2021 Patient encounter status Anupam Kurtz Randall Work Phone: [facility] DO Work Phone: Procedures Date Procedure Procedure Detail Performing Clinician Start: 08-29-2023 ECG 12-LEAD MAURIZIO EDOUARD Start: 08-29-2023 FOLLOW UP IN CARDIOLOGY MAURIZIO JORGENSEN Start: 08-29-2023 Basic metabolic 2000 panel - Serum or Plasma ANUPAM PEREIRA Start: 08-29-2023 Ecg routine ecg w/le ast 12 lds w/i&r Daphne Mayes MD Work Phone: Start: 07-31-2021 SARS Antigen (LFIA) MD Anupam Pereira Work Phone: Start: 09-01-2018 Screening mammography Олег Pereira Other Insertion of pulse generator of implantable cardioverter defibrillator Anupam Pereira Work Phone: Ligation of fallopian tube Олег Pereira Work Phone: Total colonoscopy Anupam pardo Work Phone: Comment on above: [id number]; Plan of Treatment Date Care Activity Detail Author Start: 02-28-2024 End: 08-28-2024 Cardiac Device Check - In Clinic Cardiac Device Check - In Clinic Implantable Cardiac Device Routine ICD (implantable cardioverter-defibrilla tor) in place Expected: 02/28/2024 (Approximate), Expires: 08/28/2024 [facility] Service Area Work Phone: Comment on above: Expected: 02/28/2024 (Approximate), Expires: 08/28/2024 Start: 02-20-2024 End: 02-20-2024 Patient encounter procedure 02/20/2024 10:00 AM EDT Office Visit [facility] [address] [place] [address] Sai-Maurizio Pope E, GATE CLERK-EQUIPMENT VALIDATION ENGINEER [address] [place] [address] [facility] Start: 01-04-2024 Influenza vaccination Influenz a Vaccine (Season Ended) [facility] Start: 11-23-2023 Echocardiography Echocardiogram [facility] Start: 11-18-2023 End: 11-18-2023 Patient encounter procedure 11/18/2023 10:40 AM EDT Office Visit [address] [place] [id number] Lupe Boswell MD [address] [place] [address] [facility] Start: 08-29-2023 End: 08-29-2023 Patient encounter procedure 08/29/2023 10:20 AM EDT Office Visit [facility] [address] [place] [address] Daphne Mayes MD [address] [facility] [address], [address] [place] [address] [facility] Start: 04-17-2023 FUV, Provider: Lupe Boswell, Status: Pen, Time: 11:00 AM FUV, Provider: Lupe Boswell, Status: Pen, Time: 11:00 AM [facility] 250 DO Work Phone: Start: 04-17-2023 End: 04-17-2023 Patient encounter procedure 04/17/2023 11:00 AM EST Office Visit [place] [address] [facility] [address] [place] [address] Lupe Boswell MD [address] [place], [place] [id number] [facility] Start: 03-11-2023 End: 02-26-2024 Basic metabolic 2000 panel - Serum or Plasma Basic metabolic panel Lab Routine Chronic systolic congestive heart failure (CMS/HCC) Expected: 03/11/2023 (Approximate), Expires: 02/26/2024 [facility] Service Area Work Phone: Comment on above: Expected: 03/11/2023 (Approximate), Expires: 02/26/2024 Start: 01-31-2023 FUV, Provider: Daphne Mayes, Status: Pen, Time: 2:00 PM FUV, Provider: Daphne Mayes, Status: Pen, Time: 2:00 PM [facility] Work Phone: Start: 01-31-2023 Patient encounter procedure FUVPACEMKR, Provider: [facility], Status: Pen, Time: 1:00 PM [facility] Work Phone: Start: 01-03-2023 COVID-19 Vaccine ( season) COVID-19 Vaccine ( season) [facility] Start: 01-03-2023 Influenza vaccination Influenza Vacc ine (#1) [facility] Start: 11-22-2022 ECHO, Provider: [facility] ,[id number], Status: Pen, Time: 10:45 AM ECHO, Provider: [facility] ,[id number], Status: Pen, Time: 10:45 AM [facility] 250 DO Work Phone: Start: 10-09-2022 FUV, Provider: Lupe Boswell, Status: Pen, Time: 10:40 AM FUV, Provider: Lupe Boswell, Status: Pen, Time: 10:40 AM -[facility] 250 DO Work Phone: Start: 08-02-2022 Creatinine measurement Creatinine Lucinda nance [facility] Start: 08-02-2022 Potassium measurement Potassium Francesca roberts [facility] Start: 07-17-2022 ECHO, Provider: [facility] 01,[id number], Status: Pen, Time: 9:45 AM ECHO, Provider: [facility] 01,[id number], Status: Pen, Time: 9:45 AM [facility] Work Phone: Start: 05-29-2022 ECHO, Provider: [facility] 01,[id number], Status: Pen, Time: 2:30 PM ECHO, Provider: [facility] 01,[id number], Status: Pen, Time: 2:30 PM [facility] 250 DO Work Phone: Start: 04-17-2022 FUV, Provider: Lupe Boswell, Status: Pen, Time: 11:10 AM FUV, Provider: Lupe Boswell, Status: Pen, Time: 11:10 AM [facility] 250 DO Work Phone: Start: 02-01-2022 FUV, Provider: Daphne Mayes, Status: Pen, Time: 3:20 PM FUV, Provider: Daphne Mayes, Status: Pen, Time: 3:20 PM [facility] 250 DO Work Phone: Start: 02-01-2022 Patient encounter procedure FUVPACEMKR, Provider: [facility],EMVIVIENNEACEMMARIANO, Status: Pen, Time: 2:20 PM [facility] Work Phone: Start: 11-20-2021 NURSEVST, Provider: PRABHJOT WALDRON MAITRE D' 1,[id number], Status: Pen, Time: 2:30 PM NURSEVST, Provider: PRABHJOT WALDRON MAITRE D' 1,[id number], Status: Pen, Time: 2:30 PM [facility] 250 DO Work Phone: Start: 11-20-2021 ECHO, [facility],[id number], Status: Pen, Time: 1:30 PM ECHO, Provider: [facility] 01,[id number], Status: Pen, Time: 1:30 PM [facility] 250 DO Work Phone: Start: 10-09-2021 FUV, Provider: Lupe Boswell, Status: Pen, Time: 1:30 PM FUV, Provider: Lupe Boswell, Status: Pen, Time: 1:30 PM [facility] 320 DO Work Phone: Start: 08-28-2021 FUV, Provider: Daphne Mayes, Status: Pen, Time: 2:20 PM FUV, Provider: Daphne Mayes, Status: Pen, Time: 2:20 PM [facility] DO Work Phone: Start: 08-28-2021 Patient encounter procedure FUVPACEMKR, Provider: [facility],[id number], Status: Pen, Time: 1:20 PM [facility] 320 DO Work Phone: Start: 08-02-2021 ICD CHANGE, Provider : [facility]EL YARDPERSON 4,[id number], Status: Pen, Time: 12:30 PM ICD CHANGE, Provider: [facility]OT[facility] YARDPERSON 4,[id number], Status: Pen, Time: 12:30 PM [facility] 3 DO Work Phone: Start: 08-02-2021 [facility], Provider: Daphne Mayes, Status: Pen, Time: 11:00 AM [facility], Provider: Daphne Mayes, Status: Pen, Time: 11:00 AM [facility] 3 DO Work Phone: Start: 07-19-2021 ICD CHANGE, Provider : [facility]OTEL YARDPERSON 4,[id number], Status: Pen, Time: 2:00 PM ICD CHANGE, Provider: [facility]OT[facility] YARDPERSON 4,[id number], Status: Pen, Time: 2:00 PM -[facility] [address] DO Work Phone: Start: 07-19-2021 [facility], Provider: Daphne Mayes, Status: Pen, Time: 11:00 AM [facility], Provider: Daphne Mayes, Status: Pen, Time: 11:00 AM -[facility] [address] DO Work Phone: Start: 07-17-2021 FUV, Provider: Daphne Mayes, Status: Pen, Time: 8:40 AM FUV, Provider: Daphne Mayes, Status: Pen, Time: 8:40 AM -[facility] 320 DO Work Phone: Start: 07-17-2021 Patient encounter procedure FUVPACEMKR, Provider: [facility],EMCPACERENÉ, Status: Pen, Time: 7:40 AM [facility] 320 DO Work Phone: Start: 2014 RSV patient s and/or patients aged 60+ years (1 - 1-dose 60+ series) RSV patients and/or patients aged 60+ years (1 - 1-dose 60+ series) [facility] Start: 2004 Zoster Vaccines (1 of 2) Zoste r Vaccines (1 of 2) [facility] Start: 1994 Screening for malign ant neoplasm of breast Mammogram [facility] Start: 1976 DTaP/Tdap/Td Vaccine s (1 - Tdap) DTaP/Tdap/Td Vaccines (1 - Tdap) [facility] Start: 1972 Diabetes mellitus screening Diabetes Screening [facility] Start: 1972 Hepatitis C screening Hepatitis C [facility] Start: 1960 Pneumococcal Vaccine : 65+ Years (1 - PCV) Pneumococcal Vaccine: 65+ Years (1 - PCV) [facility] Start: 1960 Pneumococcal Vaccine : 65+ Years (1 of 2 - PCV) Pneumococcal Vaccine: 65+ Years (1 of 2 - PCV) [facility] Start: 04-03-1955 COVID-19 Vaccine (#1) COVID-19 Vacci ne (#1) [facility] Start: 1954 Lipid panel Lipid Panel [facility] Start: 1954 Medicare Annual Well ness Visit Medicare Annual Wellness Visit (AWV) [facility] Start: 1954 Screening for malign ant neoplasm of colon [facility] Start: 1954 Screening for osteoporosis Bone Dens ity Scan [facility] End: 02-28-2024 Cardiac Device Check - Remote Cardiac Device Check - Remote Implantable Cardiac Device Routine ICD (implantable cardioverter-defibrilla tor) in place 52 Occurrences starting 08/29/2023 until 02/28/2024 [facility] Work Phone: Comment on above: 52 Occurrences start ing 08/29/2023 until 02/28/2024 Payers Date Payer Category Payer Private Health Insurance [facility] DUAL [facility]TE [facility] DUAL [facility]TE [id number] 2022-Present [address] [address] [place] [address] [id number] 2022 Self-pay [id number] 2017 Medicare [id number] 2017 Medicaid MEDICAID MEDICAI D [id number] 2017-Present [address] [place] [address] [id number] 2017 Private Health Insurance [id number] 2017 Private Health Insurance [id number] [id number] 1959 Medicaid [id number] 1954 Unknown [id number] 2.16.840.1.433765.3.579.2. 593 1954 Unknown [id number] 2.16.840.1.211529.3.579.2. 593 1954 Unknown [id number] 2.16.840.1.437967.3.579.2. 593 1954 Unknown [id number] 2.16.840.1.174162.3.579.2. 593 1954 Unknown [id number] 2.16.840.1.361169.3.579.2. 593 1954 Unknown [id number] 2.16.840.1.055078.3.579.2. 593 1954 Unknown [id number] 2.16.840.1.898880.3.579.2. 593 1954 Unknown [id number] 2.16.840.1.429317.3.579.2. 593 1954 Unknown [id number] 2.16.840.1.041050.3.579.2. 593 1954 Unknown [id number] 2.16.840.1.825604.3.579.2. 593 1954 Unknown [id number] 2.16.840.1.841906.3.579.2. 593 1954 Unknown [id number] 2.16.840.1.148340.3.579.2. 593 1954 Unknown [id number] 2.16.840.1.190354.3.579.2. 593 1954 Unknown [id number] 2.16.840.1.533017.3.579.2. 1068 1954 Unknown [id number] 2.16.840.1.833669.3.579.2. 1068 1954 Unknown [id number] 2.16.840.1.347615.3.579.2. 1068 1954 Unknown [id number] 2.16840.1.832619.3.579.2. 356 1954 Unknown [id number] 2.16.840.1.544693.3.579.2. 356 1954 Unknown [id number] 2.16840.1.475203.3.579.2. 356 1954 Unknown [id number] 2.16840.1.761375.3.579.2. 356 1954 Unknown [id number] 2.840.1.507085.3.579.2. 356 1954 Unknown [id number] 2.840.1.435947.3.579.2. 356 1954 Unknown [id number] 2.840.1.150556.3.579.2. 1245 1954 Unknown [id number] 2.840.1.648471.3.579.2. 1244 1954 Unknown [id number] .0.1.232537.3.579.2. 1244 1954 Unknown [id number] 2.840.1.901076.3.579.2. 124 1954 Unknown [id number] 2.840.1.685121.3.579.2. 1244 Medicare [id number] Medicare Medicare [id number] Private Health Insurance [id number] Unknown Unknown [id number] 2.840.1.452633.3.579.2. 531 Unknown [id number] 2.840.1.518973.3.579.2. 531 Unknown [id number] 2.16.840.1.919356.3.579.2. 531 Social History Date Type Detail Facility Start: 10-09-2021 End: 05-12-2023 Caffeine use Caffeine use [facility] Comment on above: 1 1/2 daily (Pop); Start: 1955 Sex Assigned At Female F [facility] Start: 10-09-2021 End: 05-12-2023 Sex Assigned At [facility] Start: 02-25-2023 End: 12-22-2023 Tobacco smoking status NHIS Never smoked tobacco [facility] Work Phone: Start: 02-25-2023 Tobacco use and exposure Smokeless tobacco non-user [facility] Work Phone: Start: 1955 [facility] Start: 02-15-2023 End: 08-29-2023 Exposure to SARS-CoV-2 (event) Not sure [facility] Start: 05-12-2023 End: 08-29-2023 Alcoholic beverage intake Lifetime non-drinker (finding) [facility] Work Phone: Functional Status Date Assessment Result Facility 10-09-2021 PHQ-9 [id number] Moderate (10-14) [facility] 250 DO Work Phone: Clinical Notes 08-02-2021 to 08-29-2023 Daphne Mayes MD - 08/29/2023 10:20 AM EDTPatient Instructions Note Date & Type Note Facility 08-29-2023 History of Present illness Narrative Chief Complaint: Follow-up History Of Present Illness: Nya Bell is a 67 y.o. female presenting with follow-up. She is accompanied by her daughter. She did not realize that she had device follow-up prior to today's office visit appointment. She did have blood drawn earlier this morning. Device check performed in office. She denies any arrhythmia symptoms. She denies any lightheadedness, near-syncope, or syncope. Last Recorded Vitals: Vitals: 08/29/23 1030 BP: 136/80 Pulse: 64 Past Medical History: See List Past Surgical History: See List Social History: She reports that she has never smoked. She has never used smokeless tobacco. She reports that she does not drink alcohol and does not use drugs. Family History: Family History Problem Relation Name Age of Onset Dementia Mother Diabetes Mother Diabetes Father Heart attack Father Allergies: Adhesive Outpatient Medications: Current Outpatient Medications Medication Instructions carvedilol (COREG) 6.25 mg, oral, 2 times daily omeprazole (PriLOSEC) [address] capsule 1 capsule, oral, Every morning, Before Breakfast sacubitriL-valsartan (Entresto) 49-51 mg tablet 1 tablet, oral, 2 times daily sertraline (Zoloft) 50 mg tablet 2 tablets, oral, Daily Review of Systems Cardiovascular: Negative for chest pain, dyspnea on exertion and palpitations. All other systems reviewed and are negative. Physical Exam: Constitutional: General: Awake. Appearance: Normal and healthy appearance. Well-developed and not in distress. Neck: Vascular: No JVR. JVD normal. Pulmonary: Effort: Pulmonary effort is normal. Breath sounds: Normal breath sounds. No wheezing. No rhonchi. No rales. Chest: Chest wall: Not tender to palpatation. Comments: Left sided device pocket- healed and well approximated. No swelling or hematoma Cardiovascular: PMI at left midclavicular line. Normal rate. Regular rhythm. Normal S1. Normal S2. Murmurs: There is no murmur. No gallop. No click. No rub. Pulses: Intact distal pulses. Edema: Peripheral edema absent. Abdominal: Tenderness: There is no abdominal tenderness. Musculoskeletal: Normal range of motion. General: No tenderness. Skin: General: Skin is warm and dry. Neurological: General: No focal deficit present. Mental Status: Alert and oriented to person, place and time. Last Labs: CBC - Lab Results Component Value Date WBC 7.3 08/02/2021 HGB 12.7 08/02/2021 HCT 37.9 08/02/2021 MCV 88 08/02/2021 PLT 168 08/02/2021 CMP - Lab Results Component Value Date CALCIUM 9.3 08/02/2021 LIPID PANEL - No results found for: CHOL , TRIG , HDL , CHHDL , LDLF , VLDL , NHDL RENAL FUNCTION PANEL - Lab Results Component Value Date GLUCOSE 98 08/02/2021 NA 141 08/02/2021 K 3.7 08/02/2021 CL 107 08/02/2021 CO2 27 08/02/2021 ANIONGAP 11 08/02/2021 BUN 20 08/02/2021 CREATININE 0.79 08/02/2021 CALCIUM 9.3 08/02/2021 No results found for: BNP , HGBA1C Last Cardiology Tests: ECG: Today. Normal sinus rhythm. Appropriate pacing. PVCs. Normal axis. Corrected QT interval 470 ms Device check today. Medtronic DTPA 2 QQ. Estimated longevity device 6years. Adjusted LV amplitude to 2.75 V. Currently Optivol normal. No significant events. Acceptable heart rate histogram. See scanned report. Lab review: I have personally reviewed the laboratory result(s) see above Assessment/Plan Diagnoses and all orders for this visit: ICD (implantable cardioverter-defibrillator) in place - Follow Up In Cardiology - carvedilol (Coreg) 6.25 mg tablet; Take 1 tablet (6.25 mg) by mouth 2 times a day. - sacubitriL-valsartan (Entresto) 49-51 mg tablet; Take 1 tablet by mouth 2 times a day. - ECG 12 lead (Clinic Performed) NICM (nonischemic cardiomyopathy) (Multi) [I42.8] Chronic systolic congestive heart failure (Multi) Cardiomyopathy, unspecified type (Multi) Dyspnea on exertion Obstructive sleep apnea syndrome in adult Class 2 obesity without serious comorbidity with body mass index (BMI) of 37.0 to 37.9 in adult, unspecified obesity type Never smoked cigarettes Encounter for medication review and counseling Encounter to discuss treatment options Anel Samano RN Nonischemic cardiomyopathy. LVEF improved to 60% by echocardiogram 2022. Status post biventricular defibrillator generator change for generator senescence in 2021. Medtronic DTPA 2 QQ biventricular ICD. Performed device check in office. Normal device function. Adjusted LV output to +0.5 V above threshold. Chronic systolic heart failure. NYHA IIIc heart failure. Appropriate biventricular pacing. Increased Optivol recently may have been at the time of recovering from influenza and congestion. Reviewed meds. Continue meds. Refills. Valvular heart disease with mild MR cardiac 2020. Remote catheterization with normal coronaries in 2014 Obstructive sleep apnea. Discussed association of sleep apnea , weight, and arrhythmias Hypertension. Chronic. Stable. Reviewed medications Overweight Counseling greater than 50% of visit for discussion of heart failure device, follow-up, standard of care for monitoring and follow-up, remote monitoring, medications, what medications may need refills, indications for medications, treatment options, risk, benefits, and imponderables. All questions answered in detail. Patient and family appreciative of care Please excuse grammatical or dictation errors as software dictation application being used. documented in this encounter [facility] Work Phone: 08-29-2023 Instructions Anel Samano RN - 08/29/2023 10:20 AM EDT Continue same medications/treatment. Patient educated on proper medication use. Patient educated on risk factor modification. Please bring any lab results from other providers/physicians to your next appointment. Please bring all medicines, vitamins, and herbal supplements with you when you come to the office. Prescriptions will not be filled unless you are compliant with your follow up appointments or have a follow up appointment scheduled as per instruction of your physician. Refills should be requested at the time of your visit. Follow up with Maurizio in 6 months with device check Continue remote checks at 3 and 9 months IANEL RN, AM SCRIBING FOR AND IN THE PRESENCE OF DR. DAPHNE MAYES MD, FACC, FACP, FHRS documented in this encounter [facility] Work Phone: 05-28-2023 Evaluation note Encounter Date Diagnosis Assessment Notes May, Influenza A (ICD-10 - J10.1) resolved. discussed symptomatic care May, Acute bronchitis, unspecified organism (ICD-10 - J20.9) No further antibiotics or steroids indicated. Recommened conservative measures for help w laryngitis. 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 [email or web address] Other 01-08-2024 History of Present illness Narrative* Lupe Boswell MD - 05/12/2023 1:30 PM EST Subjective Nya Bell is a 67 y.o. female Chief Complaint Follow-up HPI Patient is in the office for follow-up for the problems noted below. She was in [place] recently and had flu syndrome which left her with significant bronchitis that was noted during today's visit. Her lab data from [place] was reviewed, cardiac enzymes were normal other labs were normal. BNP was normal. The patient had an echocardiogram in November 2022 which revealed complete normalization of the ejection fraction up to 65%. She has defibrillator in place which is working well. Review of system apart from the upper respiratory tract infection symptoms essentially normal examination is remarkable for bilateral crackles, vital signs were normal. Her weight remains above target. Assessment/recommendations: 1-previous history of nonischemic cardiopathy with ejection fraction now up to 65% by echocardiogram November 2022. Will continue Coreg and Entresto as his 2-status post AICD, device is assessed by electrophysiology at [facility] 3-cardiac catheterization 8 years ago at [facility] was normal 4-sleep apnea supposed to be on CPAP machine, encouraged patient to follow-up with a sleep lab to adjust the device. 6-class II obesity, recommended low-calorie diet and more regular exercise. Review of Systems All other systems reviewed and are negative. Visit Vitals BP 106/60 (BP Location: Left arm, Patient Position: Sitting) Pulse 62 Ht 1.524 m (5') Wt 86.6 kg (191 lb) BMI 37.30 kg/m Smoking Status Never BSA 1.91 m Objective Physical Exam Constitutional: Appearance: Normal appearance. She is normal weight. HENT: Nose: Nose normal. Neck: Vascular: No carotid bruit. Cardiovascular: Rate and Rhythm: Normal rate. Pulses: Normal pulses. Heart sounds: Normal heart sounds. Pulmonary: Effort: Pulmonary effort is normal. Abdominal: General: Bowel sounds are normal. Palpations: Abdomen is soft. Genitourinary: Rectum: Normal. Musculoskeletal: General: Normal range of motion. Cervical back: Normal range of motion. Right lower leg: No edema. Left lower leg: No edema. Skin: General: Skin is warm and dry. Neurological: General: No focal deficit present. Mental Status: She is alert. Psychiatric: Mood and Affect: Mood normal. Behavior: Behavior normal. Thought Content: Thought content normal. Judgment: Judgment normal. Current Medications Current Outpatient Medications: carvedilol (Coreg) 6.25 mg tablet, Take 1 tablet (6.25 mg) by mouth 2 times a day., Disp: , Rfl: ergocalciferol (Vitamin D-2) 50 MCG (2000 UT) capsule capsule, Take 1 capsule (50 mcg) by mouth once daily. OTC, Disp: , Rfl: omeprazole (PriLOSEC) [address] capsule, Take 1 capsule (20 mg) by mouth once daily in the morning. Before Breakfast, Disp: , Rfl: sacubitriL-valsartan (Entresto) 49-51 mg tablet, Take 1 tablet by mouth 2 times a day., Disp: , Rfl: sertraline (Zoloft) 50 mg tablet, Take 2 tablets (100 mg) by mouth once daily., Disp: , Rfl: Assessment/Plan 1. Cardiomyopathy, unspecified type (CMS/HCC) Follow Up In Cardiology 2. ICD (implantable cardioverter-defibrillator) in place 3. Obstructive sleep apnea syndrome in adult 4. Class 2 obesity without serious comorbidity with body mass index (BMI) of 37.0 to 37.9 in adult,unspecified obesity type Scribe Attestation By signing my name below, IAfrica LPN , Scribtessie attest that this documentation has been prepared under the direction and in the presence of Lupe Boswell MD. documented in this [facility] Work Phone: 1(174) 269-771001-08-2024 Instructions* Patient Instructions* Africa Noland LPN - 05/12/2023 1:30 PM EST Please bring all medicines, vitamins, and herbal supplements with you when you come to the office. Prescriptions will not be filled unless you are compliant with your follow up appointments or have a follow up appointment scheduled as per instruction of your physician. Refills should be requested at the time of your visit. Pacemaker/Defibrillator follow up per routine [facility] Phone: 1(661) 291-153710-24-2023 History of Present illness Narrative* Maurizio Jorgensen APRN-EQUIPMENT VALIDATION ENGINEER - 02/25/2023 10:00 AM EDT CARDIOLOGY OFFICE VISIT CHIEF COMPLAINT Chief Complaint Patient presents with Device Check Routine check up HISTORY OF PRESENT ILLNESS HPI The patient is a 67-year-old female who is followed for nonischemic cardiomyopathy with a left ventricular ejection fraction improved to 60 to 65% per 2D echocardiogram dated November 22, 2022, [place] [employer] class II- III, stage C heart failure. She underwent implantation of a dual-chamber ICD for primary prevention of sudden cardiac and generator change out on August 02, 2021 for JORDON parameters. She presents to the office today for follow-up evaluation of her ICD. Patient reports that 3 months ago she was treated for a respiratory tract infection with antibiotics and steroids. She states that she has had a persistent dry cough. She denies fever or chills. Additionally she denies chest pain, palpitations, dizziness or lightheadedness. She reports that she is more easily fatigued. She is accompanied by her daughter for today's office visit. Past Medical History Past Medical History: Diagnosis Date Encounter for preprocedural cardiovascular examination 07/11/2021 Pre-operative cardiovascular examination Social History Social History Tobacco Use Smoking status: Never Smokeless tobacco: Never Substance Use Topics Alcohol use: Not on file Drug use: Not on file Family History Family History Problem Relation Name Age of Onset Dementia Mother Diabetes Mother Diabetes Father Heart attack Father Allergies: Allergies Allergen Reactions Adhesive Unknown Outpatient Medications: Current Outpatient Medications Medication Instructions carvedilol (Coreg) 6.25 mg tablet 1 tablet, oral, 2 times daily ergocalciferol (Vitamin D-2) 50 MCG (1999) capsule capsule 1 capsule, oral, Daily, OTC omeprazole (PriLOSEC) [address] capsule 1 capsule, oral, Every morning, Before Breakfast sacubitriL-valsartan (Entresto) 49-51 mg tablet 1 tablet, oral, 2 times daily sertraline (Zoloft) 50 mg tablet 2 tablets, oral, Daily REVIEW OF SYSTEMS Review of Systems All other systems reviewed and are negative. VITALS Vitals: 02/25/23 1010 BP: 132/80 Pulse: 74 PHYSICAL EXAM Vitals and nursing note reviewed. Constitutional: Appearance: Normal appearance. HENT: Head: Normocephalic. Neck: Vascular: No JVD. Cardiovascular: Rate and Rhythm: Normal rate and regular rhythm. Pulses: Normal pulses. Heart sounds: Normal heart sounds. Pulmonary: Effort: Pulmonary effort is normal. Breath sounds: Diminished but clear to auscultation posterior laterally. Abdominal: General: Bowel sounds are normal. Palpations: Abdomen is soft. Musculoskeletal: General: Normal range of motion. Cervical back: Normal range of motion. Skin: General: Skin is warm and dry. Left subclavian ICD pocket is well-healed without redness swelling or drainage. Neurological: General: No focal deficit present. Mental Status: She is alert and oriented to person, place, and time. Motor: Motor function is intact. Psychiatric: Attention and Perception: Attention and perception normal. Mood and Affect: Mood and affect normal. Speech: Speech normal. Behavior: Behavior normal. Behavior is cooperative. Thought Content: Thought content normal. Cognition and Memory: Cognition and memory normal. Labs and testing: Twelve-lead EKG reveals atrial sensing with ventricular pacing at 74 bpm. The QRSduration is 98 ms, QT 430 ms, QTc 477 ms. 1 PVC is noted in the recording. The ICD was interrogatedin the office today. The Optivol fluid index has been elevated since February 12 ongoing with corresponding reduction in thoracic impedance. 1 nonsustained VT detection was noted. Intracardiac electrograms reveals paroxysmal atrial tachycardia of 14 beats duration at a rate of 194 bpm. No therapies were delivered. Estimated battery longevity is 6.5 years. Atrial pacing is 27.5% and biventricular pacing 98.6%. ASSESSMENT AND PLAN Clinical impressions: 1. Nonischemic cardiomyopathy with left ventricular ejection fraction improved to 60 to 65% per 2D echocardiogram dated November 22, 2022, [place] [employer] class III, stage C heart failure. 2. Upgrade to an AV biventricular ICD on August 02, 2021 (Medtronic cobalt XT HF Quad FURNITURE SALES [employer]OCIATE-D). Initial implant on January 25, 2015. 3. Valvular heart disease consisting of mild MR per 2D echocardiogram dated November 22, 2022. 4. Left heart catheterization in 2014 revealing normal coronaries at [facility]. 5. Obstructive sleep apnea, noncompliant with CPAP. 6. Class II obesity with a BMI of 37.69. 7. Hypertension, controlled with a blood pressure today 132/80. Recommendations: 1. I reviewed the findings of the device interrogation with the patient and her daughter. There is evidence of heart failure with elevated OptiVol fluid index. Patient will trial furosemide 40 mg 1 tablet daily x3 days then 1 tablet daily as needed for 3 pound weight gain overnight or 5 pounds weight gain in 5 days. The patient will obtain a Chem-7 in 2 weeks for evaluation of fluid and electrolyte status as well as renal function. Patient states that she does have a history of mild CKD. Further recommendations will be pending those results. Patient was also instructed to increase her dietaryintake of potassium rich foods when utilizing furosemide. 2. Obtain ICD checks per the [facility] device clinic as scheduled. Patient was instructed to obtain an in clinic device check at [facility] approximately 2 weeks prior to the office visit with Dr. Mayes. 3. Follow-up in office with Dr. Mayes in 6 months or sooner if needed. 4. Follow-up in office with Dr. Boswell on April 17, 2023 at 11 AM as scheduled or sooner if needed. 5. Continue lifestyle modifications as discussed. Evaluation and note by Maurizio Jorgensen CNP Please excuse any errors in grammar or translation related to this dictation. Voice recognition software was utilized to prepare this document. documented in this [facility] Work Phone: [phone]) 929-795710-24-2023 Instructions* Patient Instructions* ISAI Mora - 02/25/2023 10:00 AM EDT When taking the lasix, increase dietary potassium intake (orange juice, bananas, skin on potatoes) documented in this [facility] Work Phone: [phone]) 800-986209-07-2023 Evaluation note* Encounter Date Diagnosis Assessment Notes Treatment Notes Treatment Clinical Notes Jan, Bronchitis (ICD-10 - J40) Discussed diagnosis with patient. Patient to take antibiotic daily with food as prescribed. Finish entire course of antibiotic. Proair inhaler sent today for patient to use PRN cough/wheezing/short ness of breath. [id number] antipyretics as needed. Warning signs and symptoms reviewed with patient today. Patient to go immediately to the ER should she experience any of these. Patient to notify office should her symptoms persist and not improve. Patient verbalizes understanding and agrees to treatment plan. [email or web address] Other 08-29-2023 Evaluation note* Encounter Date Diagnosis Assessment Notes Treatment Notes Treatment Clinical Notes Dec, Bronchitis (ICD-10 - J40) Discussed diagnosis with patient. Finish entire course of antibiotic. Proair inhaler sent today for patient to use PRN cough/wheezing/short ness of breath. Tessalon Pearles ordered to take as needed for cough. Increase fluids and rest. [id number] antipyretics as needed. Warning signs and symptoms reviewed with patient today. Patient to go immediately to the ER should she experience any of these. Patient to notify office should her symptoms persist and not improve. Patient verbalizes understanding and agrees to treatment plan. [email or web address] Other 08-22-2023 Evaluation note* Encounter Date Diagnosis Assessment Notes Treatment Notes Treatment Clinical Notes Dec, Acute pain of right shoulder (ICD-10 - M25.511) Check xray. Add meds for pain relief and muscle relaxation. Will call pt w xray results. Dec, Chest congestion (ICD-10 - R09.89) Start w CXR and assess for pneumonia - will base treatment on CXR results later today. [email or web address] Other 02-16-2023 NoteCONSULTATION CONSULTATION DATE: 06/20/2022 HISTORY OF PRESENT ILLNESS: This is a 66-year-old female who returns to the clinic status post #2 bilateral MBB of L2, L3 and L4, L5 completed on 06/04/2022. The patient did receive 80% relief for three hours and then 50% relief for three more days. Patient is having radiating pain to the anterior portion of her left side that does not extend below the knees. Standing, walking, sitting, housework and ADLs aggravate her pain. She does use occasionally, which decrease her pain. Medication-pelaez, she is on a vitamin regimen and has stopped her baclofen as she did not like how it made her feel. She does have a pacemaker/defibrillator, but is not on any anticoagulants. Patient's REVIEW OF SYSTEMS / PAST MEDICAL HISTORY / ALLERGIES and IMAGES have been reviewed and are noted on the chart. PHYSICAL EXAM: VITAL SIGNS: Blood pressure is 113/59. Heart rate is 76. She is 5' tall, weighs 92.4 kg. GENERAL IMPRESSION: Pleasant, appropriate, no acute distress. FOCUSED EXAM - BACK: Range of motion is guarded in lateral rotation and flexion/extension. Paravertebral muscles are non-spasmodic. Reproduction of spinal axial pain noted to direct compression along the facets of L2, L3 and L4, L5. Fullness palpated as well indicative of facet arthropathy, lumbar spondylosis. MUSCULOSKELETAL: Motor is intact, 4/5 bilaterally. Patient walks unassisted with no vasomotor weakness. NEUROLOGICAL: Radicular sensory is intact. Patchy hypoesthesia to L3, L4 to the right side. Bilateral lower extremity reflexes are 2/2. DIAGNOSIS: Chronic lower back pain, lumbar spondylosis and lumbar degenerative disc disease. PLAN: We will proceed with bilateral radiofrequency ablation of L2, L3 and L4, L5. Patient is current compliant with her vitamins. I did encourage her to increase her exercises and stretches daily. Patient agrees to move forward with the plan of care and will be followed up in the office thereafter.[facility] [id number] NoteCONSULTATION CONSULTATION DATE: 05/23/2022 HISTORY OF PRESENT ILLNESS: This is a 66-year-old female who returns to the clinic status post #1 bilateral MBB of L2, L3 and L4, L5 completed on 05/07/2022. The patient was afforded 80% relief and is ongoing. At rest, her pain is 3/10. With activity, her pain will increase to 5/10. Prolonged standing, walking, housework, vacuuming and ADLs do aggravate the pain. She does use a menthol heat rub as well as heat application which decreases her pain. Medications include sertraline and baclofen 10 mg q.h.s. The patient states the baclofen does make her excessively tired. She has been slowly increasing her activity and has slowly increased her endurance. She denies any recent falls or injury or radiating pain to her lower extremities. Patient's REVIEW OF SYSTEMS / PAST MEDICAL HISTORY / ALLERGIES and IMAGES have been reviewed and noted on the chart. PHYSICAL EXAM: VITAL SIGNS: Blood pressure 122/66, heart rate is 85. Temperature is 97.8. She is 5' tall, weighs 204 pounds.. GENERAL IMPRESSION: Pleasant, appropriate, no acute distress. FOCUSED EXAM - BACK: Range of motion is guarded in lateral rotation and flexion/extension. Reproduction of patient's spinal axial pain noted to direct compression along the posterior elements of the lumbar spine of L2, L3 and L4, L5 indicative of facet arthropathy, lumbar spondylosis. Paravertebral muscles are taut but non-spasmodic. Erik's point non-tender. No radiating pain. Negative FABERs and compression test. MUSCULOSKELETAL: Motor is intact, 5/5 bilaterally. Patient walks unassisted with a stable gait. Good muscle tone. NEUROLOGICALLY: Radicular sensory is intact to the lower extremities with +2 patellar and Achilles reflexes. DIAGNOSIS: Lower back pain, lumbar spondylosis and lumbar degenerative disc disease. PLAN: We will proceed with a #2 bilateral MBB of L2, L3 and L4, L5. Education was given regarding application of heat pad and heat rub, as well as decreasing her baclofen to 5 mg nightly. I did recommend continuing with her yoga exercises. Patient agrees with the plan, will be followed up in the clinic thereafter.[facility] [id number] Evaluation note* Encounter Date Diagnosis Assessment Notes Treatment Notes Treatment Clinical Notes May, Vitamin D deficiency (ICD-10 - E55.9) [email or web address] Other 01-17-2023 Evaluation note* Encounter Date Diagnosis Assessment Notes Treatment Notes Treatment Clinical Notes May, Anemia, unspecified type (ICD-10 - D64.9) significant pallor and cyanosis of nails. History of anemia - will order more specific labs to find a source May, Vitamin D deficiency (ICD-10 - E55.9) Initial assessment. Feels she struggles in winter months - needs lab to confirm problem of vit D deficiency May, Cardiomyopathy as manifestation of underlying disease (ICD-10 - I43) Reviewed notes from her specialist [email or web address] Other 12-06-2022 NoteCONSULTATION CONSULTATION DATE: 04/09/2022 CHIEF COMPLAINT: Chronic low back pain. HISTORY OF PRESENT ILLNESS: This is a very pleasant, 66-year-old female who is known to the Pain Clinic remotely. The patient has chronic low back pain. She rates the pain as a 3/10. With the change in weather, it has aggravated the pain, as does twisting, pushing, lifting, housework, bending, sweeping, ADLs. Heat mitigates the patient's pain symptomatology. The patient states she cannot take NSAIDs secondary to a cardiac pathology. The patient has a pacemaker; however, there are some complications with regards to the replacement pacemaker. The patient also takes sertraline 50 mg h.s. The patient has intermittent pain that radiates into her right leg; however, this is not constant. The patient, last week, was very bad with regards to her pain. The patient's PAST MEDICAL HISTORY / SURGICAL HISTORY / REVIEW OF SYSTEMS are noted on the chart along with the MEDICATION LIST / ALLERGIES and the X-RAY of the lumbar spine that as ordered on 02/04/2022, which was reviewed in office today. PHYSICAL EXAM: Upon physical examination, this is a pleasant, cooperative female, who does not appear to be in any acute distress. VITAL SIGNS: Stable at 107/51, with a heart rate of 72. At a height of 5', the patient weighs 90 kg. HEAD: Atraumatic. NECK: Not guarded. HEART: No orthopnea. LUNGS: No dyspnea. ABDOMEN: Protuberant, distended. BACK: Tenderness is noted along the posterior elements bilaterally. Extension, compression, direct palpation aggravate the patient's pain concordant with facet arthropathy, left hand side greater than right hand side. EXTREMITIES: No pedal edema is noted. MUSCULOSKELETAL: Intact in the lower extremities at 4+/5 bilaterally. NEUROLOGICALLY: No radicular symptomatology. Slight hypoesthesia is present along the L5-S1 distribution on the right hand side; however, it is not severe. Motor is intact along the extensor hallucis. The gluteus medius is also intact. IMPRESSION: Current working diagnosis on the patient is chronic low back pain, lumbar degenerative disc disease, lumbar spondylosis, lumbar neuritis. PLAN: The patient will take magnesium sulfate. Multivitamin will be added. Baclofen 10 mg q.p.m. The patient will be schedule for a diagnostic lumbar medial branch block at the level of L2-3 and L4-5. The patient was encouraged to follow up with the boiler house inspector with regards to her pacemaker. The patient is looking to schedule herself with regards to a physical and blood work by Dr. Pereira. CC: Anupam Pereira M.D.[id number] NotePROCEDURE: XR FINGER MIN 2 VIEWS COMPARISON: None. HISTORY: Acquired deformity of right finger FINDINGS: BONES:Persistent flexion of the fourth finger. No acute fracture or dislocation SOFT TISSUES:Soft tissue swelling EFFUSION:None visible. OTHER: Negative. IMPRESSION: Soft tissue swelling, no acute fracture Electronically authenticated by: CECY CHRISTIAN Date: 2022-02-05 07:14[facility]03-31-2022 NoteElectrophysiology Procedure TestingPlease click on the link to view the study images (Normal)[facility] 250 DO Work Phone: [phone]) 344-254603-31-2022 NoteElectrophysiology Procedure Testing Please click on the link to view the study images (Normal)[facility] 250 DO Work Phone: [phone]) 922-992703-31-2022 NoteElectrophysiology Procedure Testing Please click on the link to view the study images (Normal)[facility] 3 DO Work Phone: [phone]) 272-262003-31-2022 NoteElectrophysiology Procedure Testing Please click on the link to view the study images (Normal)[facility] 320 DO Work Phone: Evaluation noteNo assessment information [facility] Work Phone: Evaluation noteNo InformationNort [place] Other Evaluation note* Diagnosis ICD (implantable cardioverter-defibrillator) in place- Primary Morbid obesity (CMS/HCC) Morbid obesity Chronic systolic congestive heart failure (CMS/HCC) Cardiomyopathy, unspecified type (CMS/HCC) Dyspnea on exertion Other dyspnea and respiratory abnormality Obstructive sleep apnea syndrome in adult Other fatigue documented in this encounter [facility] Work Phone: Evaluation note* Diagnosis ICD (implantable cardioverter-defibrillator) in place- Primary Cardiomyopathy, unspecified type (Multi) Chronic systolic congestive heart failure (Multi) Dyspnea on exertion Other dyspnea and respiratory abnormality Obstructive sleep apnea syndrome in adult Class 2 obesity without serious comorbidity with body mass index (BMI) of 37.0 to 37.9 in adult, unspecified obesity type Never smoked cigarettes Encounter for medication review and counseling Encounter to discuss treatment options documented in this encounter [facility] Work Phone: Evaluation note* Diagnosis Cardiomyopathy, unspecified type (CMS/HCC)- Primary ICD (implantable cardioverter-defibrillator) in place Obstructive sleep apnea syndrome in adult Class 2 obesity without serious comorbidity with body mass index (BMI) of 37.0 to 37.9 in adult, unspecified obesity type documented in this encounter [facility] Work Phone: History general Narrative - Reported* Type Description Date Medical History Gastroesophageal reflux disease without esophagitis Medical History Lumbar pain Medical History Tobacco use Medical History Deformity of finger of right alonso d Medical History Anxiety, generalized Medical History Gouty arthritis Medical History Fatigue Medical History Chest wall pain Medical History Urinary tract infection Medical History Urinary frequency Medical History RUQ pain Medical History Elevated fasting glucose Medical History Bronchitis Medical History Chronic gout, unspecified, witho ut tophus (tophi) Medical History Depression Medical History Right shoulder pain Medical History Osteoarthritis Medical History Dyspnea on minimal exertion Medical History Substernal chest pain Medical History Essential hypertension Medical History Epistaxis, recurrent Medical History Adhesive capsulitis of left shou lder Medical History Left shoulder pain Surgical History pacemaker/defibrillator 2013 Surgical History NASAL CAUTERY 08/2019 Surgical History CARDIAC CATH 06/2013 Surgical History LUMBAR NEVER ABLATION 06/2016 Hospitalization History See Sx [email or web address] Other History general Narrative - Reported* Type Description Date Medical History Gastroesophageal reflux disease without esophagitis Medical History Lumbar pain Medical History Tobacco use Medical History Deformity of finger of right alonso d Medical History Anxiety, generalized Medical History Gouty arthritis Medical History Fatigue Medical History Chest wall pain Medical History Urinary tract infection Medical History Urinary frequency Medical History RUQ pain Medical History Elevated fasting glucose Medical History Bronchitis Medical History Chronic gout, unspecified, witho ut tophus (tophi) Medical History Depression Medical History Right shoulder pain Medical History Osteoarthritis Medical History Dyspnea on minimal exertion Medical History Substernal chest pain Medical History Essential hypertension Medical History Epistaxis, recurrent Medical History Adhesive capsulitis of left shou lder Medical History Left shoulder pain Surgical History pacemaker/defibrillator 2013 Surgical History NASAL CAUTERY 08/2019 Surgical History CARDIAC CATH 06/2013 Surgical History LUMBAR NEVER ABLATION 06/2016 Hospitalization History See Sx Hx Hospitalization History [facility] 06/03/22 [email or web address] Other Reason for referral (narrative)* Consultation (Routine) - Authorized Specialty Diagnoses / Procedures Referred By Talha t Referred To Contact Cardiology Diagnoses ICD (implantable cardioverter-defibrillator ) in place Procedures Follow Up In Cardiology Maurizio Jorgensen APRN-EQUIPMENT VALIDATION ENGINEER [address] [facility], [address] [address] Daphne Mayes MD [address] [facility], [address] [address] Referral ID Status Reason Start Date Expiration Date V isits Requested Visits Authorized [id number] Authorized 02/25/2023 02/25/2024 1 1 T [facility] Work Phone: Reason for referral (narrative)* Consultation (Routine) - Authorized Specialty Diagnoses / Procedures Referred By Conthawa t Referred To Contact Cardiology Diagnoses Cardiomyopathy, unspecified type (CMS/HCC) Procedures Follow Up In Cardiology Lupe Boswell MD [address] [place] [address] 2, [place] [address] [place] [address] Lupe Boswell MD [address] [place] [address] 2, [address] [place] [address] Referral ID Status Reason Start Date Expiration Date V isits Requested Visits Authorized [id number] Authorized 05/12/2023 05/11/2024 1 1 [facility] Work Phone: Summary Purpose Family History No Family History Records FoundUnknown Family Member Name Dates Details Family history of dementia: Mother(V17.2, Z81.8) Status:Active Family history of diabetes m ellitus: Mother, Father(V18.0, Z83.3) Status:Active Family history of myocardial infarction: Father(V17.3, Z82.49) Status:Active Unknown Family Member Name Dates Details Family history of dementia: Mother(V17.2, Z81.8) Status:Active Family history of diabetes m ellitus: Mother, Father(V18.0, Z83.3) Status:Active Family history of myocardial infarction: Father(V17.3, Z82.49) Status:Active Unknown Family Member Name Dates Details Family history of dementia: Mother(V17.2, Z81.8) Status:Active Family history of diabetes m ellitus: Mother, Father(V18.0, Z83.3) Status:Active Family history of myocardial infarction: Father(V17.3, Z82.49) Status:Active Unknown Family Member Name Dates Details Family history of dementia: Mother(V17.2, Z81.8) Status:Active Family history of diabetes m ellitus: Mother, Father(V18.0, Z83.3) Status:Active Family history of myocardial infarction: Father(V17.3, Z82.49) Status:Active Unknown Family Member Name Dates Details Family history of dementia: Mother(V17.2, Z81.8) Status:Active Family history of diabetes m ellitus: Mother, Father(V18.0, Z83.3) Status:Active Family history of myocardial infarction: Father(V17.3, Z82.49) Status:Active Unknown Family Member Name Dates Details Family history of dementia: Mother(V17.2, Z81.8) Status:Active Family history of diabetes m ellitus: Mother, Father(V18.0, Z83.3) Status:Active Family history of myocardial infarction: Father(V17.3, Z82.49) Status:Active Unknown Family Member Name Dates Details Family history of dementia: Mother(V17.2, Z81.8) Status:Active Family history of diabetes m ellitus: Mother, Father(V18.0, Z83.3) Status:Active Family history of myocardial infarction: Father(V17.3, Z82.49) Status:Active Unknown Family Member Name Dates Details Family history of dementia: Mother(V17.2, Z81.8) Status:Active Family history of diabetes m ellitus: Mother, Father(V18.0, Z83.3) Status:Active Family history of myocardial infarction: Father(V17.3, Z82.49) Status:Active Unknown Family Member Name Dates Details Family history of dementia: Mother(V17.2, Z81.8) Status:Active Family history of diabetes m ellitus: Mother, Father(V18.0, Z83.3) Status:Active Family history of myocardial infarction: Father(V17.3, Z82.49) Status:Active Unknown Family Member Name Dates Details Family history of dementia: Mother(V17.2, Z81.8) Status:Active Family history of diabetes m ellitus: Mother, Father(V18.0, Z83.3) Status:Active Family history of myocardial infarction: Father(V17.3, Z82.49) Status:Active Unknown Family Member Name Dates Details Family history of dementia: Mother(V17.2, Z81.8) Status:Active Family history of diabetes m ellitus: Mother, Father(V18.0, Z83.3) Status:Active Family history of myocardial infarction: Father(V17.3, Z82.49) Status:Active Relationship Condition Age at Onset Recorded Date/T amparo father Unknown Heart disease Unknown Diabetes mellitus Unknown mother Unknown Advance Directives No Advanced Directives Records Found Advance Directive Response Recorded Date/ Time Advance Directives No March 11, 2019 3:45pm Advance Directive Response Recorded Date/ Time Advance Directives No March 11, 2019 2:45pm Chief Complaint and Reason for Visit Chief Complaint defib machine issues i80.22 z95.810 z00.00 z95.810-rapid Chief Complaint defib machine issues Chief Complaint cardiomyopathy Chief Complaint [facility] Chief Complaint defib machine issues headache, back pain, sore throat, ear pain Chief Complaint Patient here S/P gen change. Done by Dr. Mayes at [facility] on 07/19/2021. Dr. Gaudencio Mendoza MD in suite. Pt complains of device chest pain, SOB, and palpitations. Medication list reviewed and updated. Insettion site has no signs of drainage or infection, the bandage came off 4 days ago, and the steri strips are still intact. Insertion site reviewed by Gerard Alvarez RN prior to discharge. To Dr. Mayes for review* NYA BELL is being seen for a 9 month follow-up of. * Patient is in the office for follow-up for nonischemic cardiomyopathy. Recently she had battery change for her defibrillator with no complications. She complains of exhaustion and fatigue but no evidence of volume overload no chest pain orthopnea PND lower extremity edema. Her blood pressure is slightly elevated today. Her lab data from the recent investigations were reviewed with her and there has been no concern. * Assessment/recommendations: * 1 previous history of nonischemic cardiopathy with ejection fraction now up to 45 50 % by echo December 2020. She remains on a small dose of Coreg and Entresto. Repeat echocardiogram is scheduled due to progressive fatigue and the dose of the Entresto will be increased up to 49/51 mg twice daily. We will check her blood pressure in the next few weeks * 2 status post AICD, device is assessed by electrophysiology at [facility], had recent battery change with no complications. * 3 cardiac catheterization 7 years ago at [facility] was normal * 4 extreme fatigue of unknown etiology. Could be heart failure related. Titration of heart failure therapy was recommended * 5 sleep apnea on CPAP machine that she has not been using lately because of nasal problems. * 6 morbid obesity, recommended low-calorie diet and more regular exercise. * NYA BELL is being seen for a 9 month follow-up of. * Patient is in the office for follow-up for nonischemic cardiomyopathy. Recently she had battery change for her defibrillator with no complications. She complains of exhaustion and fatigue but no evidence of volume overload no chest pain orthopnea PND lower extremity edema. Her blood pressure is slightly elevated today. Her lab data from the recent investigations were reviewed with her and there has been no concern. * Assessment/recommendations: * 1 previous history of nonischemic cardiopathy with ejection fraction now up to 45 50 % by echo December 2020. She remains on a small dose of Coreg and Entresto. Repeat echocardiogram is scheduled due to progressive fatigue and the dose of the Entresto will be increased up to 49/51 mg twice daily. We will check her blood pressure in the next few weeks * 2 status post AICD, device is assessed by electrophysiology at [facility], had recent battery change with no complications. * 3 cardiac catheterization 7 years ago at [facility] was normal * 4 extreme fatigue of unknown etiology. Could be heart failure related. Titration of heart failure therapy was recommended * 5 sleep apnea on CPAP machine that she has not been using lately because of nasal problems. * 6 morbid obesity, recommended low-calorie diet and more regular exercise. * NYA BELL is being seen for a 9 month follow-up of. * Patient is in the office for follow-up for nonischemic cardiomyopathy. Recently she had battery change for her defibrillator with no complications. She complains of exhaustion and fatigue but no evidence of volume overload no chest pain orthopnea PND lower extremity edema. Her blood pressure is slightly elevated today. Her lab data from the recent investigations were reviewed with her and there has been no concern. * Assessment/recommendations: * 1 previous history of nonischemic cardiopathy with ejection fraction now up to 45 50 % by echo December 2020. She remains on a small dose of Coreg and Entresto. Repeat echocardiogram is scheduled due to progressive fatigue and the dose of the Entresto will be increased up to 49/51 mg twice daily. We will check her blood pressure in the next few weeks * 2 status post AICD, device is assessed by electrophysiology at [facility], had recent battery change with no complications. * 3 cardiac catheterization 7 years ago at [facility] was normal * 4 extreme fatigue of unknown etiology. Could be heart failure related. Titration of heart failure therapy was recommended * 5 sleep apnea on CPAP machine that she has not been using lately because of nasal problems. * 6 morbid obesity, recommended low-calorie diet and more regular exercise. * NYA BELL is being seen for cardiomyopathy. * Patient is in the office for follow-up for the problems noted below. She continued to have severe fatigue of no obvious cause. She has sleep apnea but has been compliant using CPAP machine. The patient was supposed to have an echocardiogram since her last time but that never took place. Her weight is still the same because of her activities. She denies any orthopnea PND or lower extremity edema and no side effect of current medications. Apart from obesity physical examination was normal. * Assessment/recommendations: * 1 previous history of nonischemic cardiopathy with ejection fraction now up to 45 50 % by echo December 2020. She remains on Coreg and Entresto. Repeat echocardiogram is scheduled due to progressive fatigue * 2 status post AICD, device is assessed by electrophysiology at [facility] * 3 cardiac catheterization 7 years ago at [facility] was normal * 4 extreme fatigue of unknown etiology. Could be heart failure related. Check ejection fraction by echo * 5 sleep apnea on CPAP machine * 6 morbid obesity, recommended low-calorie diet and more regular exercise. * NYA BELL is being seen for cardiomyopathy. * Patient is in the office for follow-up for the problems noted below. She continued to have severe fatigue of no obvious cause. She has sleep apnea but has been compliant using CPAP machine. The patient was supposed to have an echocardiogram since her last time but that never took place. Her weight is still the same because of her activities. She denies any orthopnea PND or lower extremity edema and no side effect of current medications. Apart from obesity physical examination was normal. * Assessment/recommendations: * 1 previous history of nonischemic cardiopathy with ejection fraction now up to 45 50 % by echo December 2020. She remains on Coreg and Entresto. Repeat echocardiogram is scheduled due to progressive fatigue * 2 status post AICD, device is assessed by electrophysiology at [facility] * 3 cardiac catheterization 7 years ago at [facility] was normal * 4 extreme fatigue of unknown etiology. Could be heart failure related. Check ejection fraction by echo * 5 sleep apnea on CPAP machine * 6 morbid obesity, recommended low-calorie diet and more regular exercise. * NYA BELL is being seen for a 6 month follow-up of. * Patient is in the office for follow-up for the problems noted below. She came with her daughter today. She failed to get the echocardiogram as I requested at last visit since she went to the wrong place. She is also not utilizing CPAP machine which is something her emphasized that she need to. She denies any orthopnea PND and her fatigue has improved. She has not followed with electrophysiology for her defibrillator as is scheduled. We will arrange for that at [facility]. Her weight is unchanged from previously and remains above target. Her lab data from PCP from few months ago were reviewed and discussed with her. She needs to take more vitamin D which I recommended. * Assessment/recommendations: * 1 previous history of nonischemic cardiopathy with ejection fraction now up to 45 50 % by echo December 2020. She remains on Coreg and Entresto. Repeat echocardiogram is scheduled * 2 status post AICD, device is assessed by electrophysiology at [facility] * 3 cardiac catheterization 7 years ago at [facility] was normal * 4 fatigue of unknown etiology. Improved with increased activities * 5 sleep apnea supposed to be on CPAP machine, encouraged patient to follow-up with a sleep lab to adjust the device. * 6 severe obesity, recommended low-calorie diet and more regular exercise. Reason for Referral Specialty Diagnoses / Procedures Referred By Lisaac t Referred To Contact Cardiology Diagnoses ICD (implantable cardioverter-defibrillator) in place Procedures Cardiac Device Check - Remote Daphne Mayes MD [address] [address] Referral ID Status Reason Start Date Expiration Date Visits Requested Visits Authorized [id number] Pending Review Perform Procedure 08/29/2023 08/28/2024 52 52 Specialty Diagnoses / Procedures Referred By Contac t Referred To Contact Cardiology Diagnoses ICD (implantable cardioverter-defibrillator) in place Procedures Cardiac Device Check - In Clinic Daphne Mayes MD [address] [facility], [address] [address] Referral ID Status Reason Start Date Expiration Date Visits Requested Visits Authorized [id number] Pending Review Perform Procedure 08/29/2023 08/28/2024 52 52 Specialty Diagnoses / Procedures Referred By Contac t Referred To Contact Diagnoses ICD (implantable cardioverter-defibrillator) in place Procedures ECG 12 lead (Clinic Performed) Daphne Mayes MD [address] [facility], [address] [address] Referral ID Status Reason Start Date Expiration Date V isits Requested Visits Authorized [id number] Authorized 08/29/2023 08/28/2024 1 1 Additional Source Comments INFORMATION SOURCE (unrecogn ized section and content) DATE CREATED AUTHOR 10/24/2017 Singer Rafa [facility] DATE CREATED AUTHOR AUTHOR'S ORGANIZ ATION 11/13/2018 [facility] DATE CREATED AUTHOR AUTHOR'S ORGANIZ ATION 08/02/2020 [facility] DATE CREATED AUTHOR AUTHOR'S ORGANIZ ATION 08/22/2022 [facility] DATE CREATED AUTHOR AUTHOR'S ORGANIZ ATION 10/14/2022 [facility] DATE CREATED AUTHOR AUTHOR'S ORGANIZ ATION 11/23/2022 [facility] DATE CREATED AUTHOR AUTHOR'S ORGANIZ ATION 12/10/2022 [facility] DATE CREATED AUTHOR AUTHOR'S ORGANIZ ATION 09/03/2023 [facility] DATE CREATED AUTHOR AUTHOR'S ORGANIZ ATION 11/22/2023 [facility] DATE CREATED AUTHOR AUTHOR'S ORGANIZ ATION 12/24/2023 [facility] Care Teams (unrecognized sec tion and content) Team Status: Active Member Role Status Dates Anupam Pereira MD Primary Care Provider Active Team Status: Active Member Role Status Dates Anupam Pereira MD Primary Care Provider Active Start: December 02, 2023 Gaudencio Mendoza MD Other Provider Active Start: December 02, 2023 Chasity Harper MD Attending Provider Active Start: December 02, 2023 Team Status: Inactive Member Role Status Dates Anupam Pereira MD Primary Care Provider Active Start: December 22, 2023 End: December 22, 2023 Chika Bee APRN Attending Provider Active Start: December 22, 2023 End: December 22, 2023 Team Status: Inactive Member Role Status Dates Anupam Pereira MD Primary Care Provider Active Daphne Mayes MD Attending Provider Active Circular Clerk Relationship Specialty Start Date End Date Anupam Pereira MD [address] [facility] [place] [id number] PCP - General 09/30/19 Team Status: Inactive Member Role Status Dates Anupam Pereira MD Attending Provider Active St art: May 08, 2023 End: May 08, 2023 Team Status: Inactive Member Role Status Dates Anupam Pereira MD Primary Care Provider Active Start: May 28, 2023 End: May 28, 2023 Gaudencio Mendoza MD Attending Provider Active Start: May 28, 2023 End: May 28, 2023 Circular Clerk Relationship Specialty Start Date End Date Anupam Pereira MD [address] [place] [id number] PCP - General Family Medicine 04/16/23 Maurizio Jorgensen APRN-EQUIPMENT VALIDATION ENGINEER [address] [facility], [address] [address] Nurse Practitioner Cardiology 03/07/23 Circular Clerk Relationship Specialty Start Date End Date Anupam Pereira MD [facility] [place] [address] PCP - General Family Medicine 04/16/23 Maurizio Jorgensen, GATE CLERK-EQUIPMENT VALIDATION ENGINEER [address] [facility], [address] [address] Nurse Practitioner Cardiology 03/07/23 Team Status: Inactive Member Role Status Dates Anupam Pereira MD Primary Care Provider Active Start: December 02, 2023 End: December 02, 2023 Gaudencio Mendoza MD Attending Provider Active Start: December 02, 2023 End: December 02, 2023 Goals (unrecognized section and content) Goals may be documented in a n alternate sectionGoals may be documented in an alternate sectionGoals may be documented in an alternate sectionGoals may be documented in an alternate sectionNo InformationNo InformationGoals may be documented in an alternate sectionGoals may be documented in an alternate sectionNo InformationNo InformationNo InformationNo InformationNo InformationNo InformationGoals may be documented in an alternate sectionNo InformationGoals may be documented in an alternate sectionGoals may be documented in an alternate section REASON FOR VISIT (unrecogniz ed section and content) Reason Comments Device Check Routine check up Reason Comments Follow-up 6 month Specialty Diagnoses / Procedures Referred By Talha t Referred To Contact Cardiology Diagnoses ICD (implantable cardioverter-defibrillator ) in place Procedures Follow Up In Cardiology Maurizio Jorgensen, NATE-PAMELA [address] [facility], [address] [address] Daphne Mayes MD [address] [facility], [facility] [address] [place] [address] Referral ID Status Reason Start Date Expiration Date V isits Requested Visits Authorized [id number] Authorized 02/25/2023 02/25/2024 1 1 Reason Comments Follow-up 6 month FOR RECORDS PERTAINING TO PATIENTS WHO ARE OR HAVE BEEN ENROLLED IN A CHEMICAL DEPENDENCY/SUBSTANCEABUSE PROGRAM, SOME INFORMATION MAY BE OMITTED. This clinical summary was aggregated from multiple sources. Caution should be exercised in using it in the provision of clinical care. This summary normalizes information from multiple sources, and as a consequence, information in this document may materially change the coding, format and clinical context of patient data. In addition, data may be omitted in some cases. CLINICAL DECISIONS SHOULD BE BASED ON THE PRIMARY CLINICAL RECORDS. [employer] [facility]. provides no warranty or guarantee of the accuracy or completeness of information in this document.
--- NOTE | 2023-12-25 11:45 | ED_ITS ---
HPI HPI - Fall General Chief Complaint: Fall Stated Complaint: HIP PAIN/FALL Time Seen by Provider: 12/25/23 11:30 Source: patient Mode of arrival: walk-in Limitations: no limitations History of Present Illness HPI Narrative: 68-year-old female presents to the emergency department for pain in her left knee, left hip, lower back, and left hand. She tripped and fell yesterday and landed on these areas. She sustained abrasions and her last tetanus shot was more than 10 years ago. She did not hit her head. She currently has COVID. Related Data Home Medications ?Medication ?Instructions ?Recorded ?Confirmed carvedilol 3.125 mg tablet 3.125 mg PO BID 12/25/23 12/25/23 omeprazole 20 mg capsule,delayed 20 mg PO DAILY 12/25/23 12/25/23 release sacubitril 49 mg-valsartan 51 mg 1 tab PO BID 12/25/23 12/25/23 tablet (Entresto) sertraline 100 mg tablet 100 mg PO DAILY 12/25/23 12/25/23 Allergies Allergy/AdvReac Type Severity Reaction Status Date / Time No Known Drug Allergies Allergy Verified 12/25/23 11:36 Opioid HPI Opioid Management Most Recent Pain and Opioid Data: No Data to Display Review of Systems ROS Narrative A ten point review of systems is negative except as noted above. Exam Narrative Exam Narrative: Nurses note and vital signs reviewed and patient is not hypoxic. General: The patient appears in no apparent distress. Skin: Warm, dry, no pallor noted. There is no rash noted. Head: Normocephalic, atraumatic Eye: Normal conjunctiva, no drainage Ears, Nose, Mouth, and Throat: oral mucosa is moist. Nares patent. Cardiovascular: Regular Rate and Rhythm Respiratory: Patient is in no distress, no accessory muscle use, lungs are clear to auscultation, no wheezing, rales or rhonchi Back: Diffuse tenderness across the lower back GI: Soft and nontender Musculoskeletal: Abrasion present at the left knee. Left hip has good range of motion. Abrasion present on the palm of her left hand proximally. Fingers and wrist have full range of motion Psychiatric: Cooperative Constitutional Vital Signs, click to edit/add: Last Vital Signs Temp 97.8 F 12/25/23 11:31 Pulse 70 12/25/23 11:31 Resp 24 H 12/25/23 11:31 BP 144/91 H 12/25/23 11:31 Pulse Ox 95 12/25/23 11:31 O2 Del Method Room Air 12/25/23 11:31 Course Vital Signs Vital signs: Vital Signs Temperature 97.8 F 12/25/23 11:31 Pulse Rate 70 12/25/23 11:31 Respiratory Rate 24 H 12/25/23 11:31 Blood Pressure 144/91 H 12/25/23 11:31 Pulse Oximetry 95 12/25/23 11:31 Oxygen Delivery Method Room Air 12/25/23 11:31 Temperature 97.8 F 12/25/23 11:31 Pulse Rate 70 12/25/23 11:31 Respiratory Rate 24 H 12/25/23 11:31 Blood Pressure 144/91 H 12/25/23 11:31 Pulse Oximetry 95 12/25/23 11:31 Oxygen Delivery Method Room Air 12/25/23 11:31 MDM - Fall MDM Narrative Medical decision making narrative: X-rays are all negative. Tetanus status was updated. Treatment diagnosis and follow-up were discussed with the patient. Differential Diagnosis Differential diagnosis: Likely other (Contusions, abrasions, fractures) Imaging Data Hip x-ray: Radiologist's impression: ITS Impressions Hand X-Ray 12/25/23 11:36 IMPRESSION: 1. No acute bone abnormality. 2. Degenerative changes. Electronically authenticated by: MAREN MARTEL Date: 12/25/2023 12:45 Knee X-Ray 12/25/23 11:36 IMPRESSION: 1. Small joint effusion. 2. No acute bone abnormality or significant degenerative joint disease. Electronically authenticated by: MAREN MARTEL Date: 12/25/2023 12:39 Lumbar Spine X-Ray 12/25/23 11:36 IMPRESSION: 1. No appreciable acute abnormality. 2. Multilevel moderate degenerative changes. Electronically authenticated by: MAREN MARTEL Date: 12/25/2023 12:37 Hip X-Ray 12/25/23 12:17 IMPRESSION: 1. No acute bone abnormality. 2. Mild degenerative changes. Electronically authenticated by: MAREN MARTEL Date: 12/25/2023 12:35 Discharge Plan Discharge Stand Alone Forms: Work/School Release, Portal Instructions Chief Complaint: Fall Clinical Impression: Multiple abrasions, Multiple contusions Patient Disposition: Home, Self-Care Time of Disposition Decision: 12:53 Condition: Good Mode of Transportation: Private Vehicle Prescriptions / Home Meds: No Action carvedilol 3.125 mg tablet 3.125 mg PO BID omeprazole 20 mg capsule,delayed release(DR/EC) 20 mg PO DAILY Entresto 49-51 mg tablet 1 tab PO BID sertraline 100 mg tablet 100 mg PO DAILY Print Language: Turkish Instructions: Contusion in Adults (ED), Abrasion (ED) Referrals: Norma Tapia MD [Primary Care Provider] - 1 week
--- NOTE | 2023-12-25 12:17 | XR_ITS ---
The [address] [address] Patient Name: NYA REDMOND MRN: [id number] date: 1955 Sex: F Assigned Patient Location: ER Current Patient Location: ER Accession/Order Number: [id number] Exam Date: 12/25/2023 12:05 Report Date: 12/25/2023 12:35 At the request of: EUGENIA WREN Procedure: XR hip LT min 2V PROCEDURE: XR hip LT min 2V HISTORY: fall COMPARISON: None. FINDINGS: BONES:No fracture, acute abnormality, or significant arthropathy. SOFT TISSUES:No visible soft tissue swelling. EFFUSION:None visible. OTHER: Negative. XR/XR hip LT min 2V IMPRESSION: 1. No acute bone abnormality. 2. Mild degenerative changes. Electronically authenticated by: MAREN MARTEL Date: 12/25/2023 12:35
[2023-12-25] MEDS: ADACEL DIPH,PERTUSS(ACELL),TET VAC/PF 0.5 ML ADULT SYRINGE IM (12:20)
== END 2023-12-25 13:01 | disposition home or self-care (01) ==
PROVIDERS: Emergency Provider Emergency Medicine; PCP Family Medicine
DX: S60.512A Abrasion of left hand, initial encounter (principal); S80.212A Abrasion, left knee, initial encounter; T14.8XXA Other injury of unspecified body region, initial encounter; W01.0XXA Fall on same level from slipping, tripping and stumbling without subsequent striking against object, initial encounter; Z23 Encounter for immunization
CPT/HCPCS: 72100; 73130; 73502; 73562; 90471; 90715; 99284

== ENCOUNTER 2024-06-06 18:20 | Emergency (ER) | payer MEDICARE, MEDICAID, SELFPAY ==
[2024-06-06 18:24] VITALS: BP 158/93; PULSE 78; TEMP 36.6; O2SAT 96; BMI 38.7
--- NOTE | 2024-06-06 18:32 | CT_ITS ---
[address] [address] Patient Name: NYA REDMOND MRN: [id number] date: 1955 Sex: F Assigned Patient Location: ER Current Patient Location: ED.MAIN Accession/Order Number: [id number] Exam Date: 06/06/2024 19:13 Report Date: 06/06/2024 20:49 At the request of: ELIA SOLARES Procedure: CT cervical spine wo con CT CERVICAL SPINE WITHOUT IV CONTRAST. CLINICAL HISTORY: neck pain s/p fall COMPARISON: There are no prior studies available for comparison. TECHNIQUE: CT of the cervical spine without contrast. Orthogonal sagittal and coronal multiplanar reformatted images were created. . FINDINGS: BONY ALIGNMENT: There is normal cervical lordosis. No spondylolisthesis. VERTEBRAL BODY: No acute fracture of the cervical spine. There is mild to moderate multilevel degenerative spondylosis. CENTRAL CANAL/NEURAL FORAMINA: No high-grade central canal or neuroforaminal stenosis. SOFT TISSUE: No mass or inflammation. UPPER LUNGS: No acute findings. CT/CT cervical spine wo con IMPRESSION: No acute cervical spinal fracture. Electronically authenticated by: HU LOWRY Date: 06/06/2024 20:49
--- NOTE | 2024-06-06 18:32 | XR_ITS ---
The [address] [address] Patient Name: NYA REDMOND MRN: [id number] date: 1955 Sex: F Assigned Patient Location: ER Current Patient Location: ER Accession/Order Number: [id number] Exam Date: 06/06/2024 19:05 Report Date: 06/06/2024 19:36 At the request of: ELIA SOLARES Procedure: XR elbow RT min 3V EXAM: XR elbow RT min 3V HISTORY: pain s/p fall COMPARISON: None. TECHNIQUE: 3 views of the right elbow were obtained. FINDINGS: There is no apparent acute fracture or dislocation. The joint spaces are intact. No osteochondral injury is identified. There is no apparent joint effusion. A very tiny osteophyte arises from the insertion site of the triceps tendon and the posterior olecranon. The soft tissues otherwise appear intact. XR/XR elbow RT min 3V IMPRESSION: No acute fracture or dislocation. The joint spaces are intact and there is no apparent joint effusion. Electronically authenticated by: CARMEL FLYNN Date: 06/06/2024 19:36
--- NOTE | 2024-06-06 18:32 | XR_ITS ---
The [address] [address] Patient Name: NYA REDMOND MRN: [id number] date: 1955 Sex: F Assigned Patient Location: ER Current Patient Location: ER Accession/Order Number: [id number] Exam Date: 06/06/2024 19:05 Report Date: 06/06/2024 19:34 At the request of: ELIA SOLARES Procedure: XR wrist RT min 3V EXAM: XR wrist RT min 3V HISTORY: pain s/p fall COMPARISON: Right hand x-ray 02/04/2022 TECHNIQUE: 3 views of the right wrist were obtained. FINDINGS: There is no apparent acute fracture or dislocation. Mild degenerative changes are seen at the distal radioulnar joint and ulnar minus variance is present. The remainder the joint spaces are intact. There is an atypical somewhat linear soft tissue calcification seen dorsal to the wrist. Soft tissues otherwise appear unremarkable. XR/XR wrist RT min 3V IMPRESSION: No apparent acute fracture or dislocation. There is an atypical soft tissue calcification noted dorsal to the wrist, which was not apparent in the prior study. This may be due to a prior soft tissue injury with organized hematoma. Direct comparison with a more recent previous x-ray may be helpful. Electronically authenticated by: CARMEL FLYNN Date: 06/06/2024 19:34
--- NOTE | 2024-06-06 18:32 | CT_ITS ---
The [address] [address] Patient Name: NYA REDMOND MRN: [id number] date: 1955 Sex: F Assigned Patient Location: ER Current Patient Location: ER Accession/Order Number: [id number] Exam Date: 06/06/2024 19:13 Report Date: 06/06/2024 19:39 At the request of: ELIA SOLARES Procedure: CT head/brain wo con EXAM: CT head/brain wo con HISTORY: fall, head injury COMPARISON: None. TECHNIQUE: Multiple thin computed tomograms of the head were obtained, with sagittal and coronal reconstructions. Radiation reduction technique and algorithms were utilized during the study. FINDINGS: The ventricles are not enlarged, the lateral ventricles are symmetric and the third ventricles in the midline. The sylvian fissures and cortical sulci are unremarkable. There is no evidence of an intracranial hemorrhage, mass lesion or apparent acute infarct. Frontal hyperostosis is noted. The cerebellum and visualized brainstem are intact. The visualized paranasal sinuses are clear. Bilateral lens implants are in place. The middle ears are aerated. The mastoid sinuses are clear. There is no apparent acute skull fracture. CT/CT head/brain wo con IMPRESSION: There is no evidence of an intracranial hemorrhage, mass lesion or apparent acute infarct. The paranasal sinuses are clear. There is no apparent acute skull fracture. Electronically authenticated by: CARMEL FLYNN Date: 06/06/2024 19:39
--- OUTSIDE RECORDS SUMMARY | 2024-06-06 18:33 | XMS_ITS | CCD ---
Author Organization [facility] Care Team Providers Care Fur Mixer Operator Name Role Phone Hampole, Haile V Unavailable Unavailable Hampole, Haile V Unavailable Unavailable Hampole, Haile V Unavailable Unavailable ANUPAM PEREIRA~[phone] UNKNOWN Unavailable Unavailable Harsh Lange Unavailable Unavailable Harsh Lange Unavailable Unavailable Anupam Pereira Unavailable Unavailable Unavailable MD Anupam Pereira Primary Care Provider MD Daphne Mayes Attending Provider [phone] Unavailable Unavailable MD Anupam Pereira Primary [...] FERNANDA ., DR JANICE Casas Admitting Unavailable SCARLET SIM Consulting Unavailable MARIA FERNANDA ., DR JANICE Casas Attending Unavailable DR ANUPAM PEREIRA Primary Care Unavailable MARIA FERNANDA ., DR JANICE Casas Admitting Unavailable IRVING ., DR JANICE Casas Consulting Unavailable IRVING ., DR JANICE Casas Attending Unavailable LAKSHMIPATHY ., YOSHI Attending Kathya vailable LAKSHMIPATHY ., YOSHI Admitting Kathya vailable PEREIRA, DR ANUPAM Kurtz Primary [...] DR JANICE Casas Admitting Unavailable NAVAS . SCARLET Consulting Unavailable PEREIRA, DR ANUPAM Kurtz Primary [...] Unavailable PEREIRA, DR ANUPAM Kurtz Admitting Unavailable SOM[place]ILLE, DR CECY Wade Consulting Unavailable ZIEBER, DR [...] Randall, MD Anupam Kurtz Primary Care Provider MD Daphne Mayes Attending Provider Boswell, Dr. [...] Huber, Dr. Daphne Canada Attending Unavailab le Pereira, Dr. Anupam Tam Primary Care Unav ailirina Pereira, Dr. Anupam Tam Primary Care Unav zelalem Pereira MD, Anupam Tam Primary Care Provider MD Anupam Pereira Primary Care Provider MD Gaudencio Mendoza Attending Provider Joslyn TIRE BUILDER HEAVY SERVICE-VICE PRESIDENT GLOBAL DIGITAL MARKETINGMaurizio E Unavailable Anupam Pereira MD Primary Care Provider ANUPAM PEREIRA Primary Care Unavailable Anupam Pereira MD Primary Care Provider MD Anupam Pereira Primary Care Provider MD Gaudencio Mendoza Attending Provider LUPE BOSWELL Attending Unavailable PEREIRA, ANUPAM E Primary Care Unavailable DAPHNE MAYES Attending Unavailable MAURIZIO JORGENSEN Referring Unavaila ble ANUPAM PEREIRA E Primary Care Unavailable LUPE BOSWELL Attending Unavailable LUPE BOSWELL Referring Unavailable PEREIRA, ANUPAM E Primary Care Unavailable DAPHNE MAYES Referring Unavailable PEREIRA, ANUPAM E Primary Care Unavailable LUPE BOSWELL Referring Unavailable PEREIRA, ANUPAM E Primary Care Unavailable Anupam Pereira MD Primary Care Provider Chasity Harper MD Attending Provider Anupam Pereira Primary Care Unavailable Chasity Harper Admitting Unavailable Chasity Harper Attending Unavailable Anupam Pereira Primary Care Unavailable Lupe Boswell Admitting Unavailable Lupe Boswell Attending Unavailable Gaudencio Mendoza Attending Unavail able Anupam Pereira Primary Care Unavailable Gaudencio Mendoza Admitting Unavail able Gaudencio Mendoza Admitting Unavail able Gaudencio Mendoza Attending Unavail able Anupam Pereira Primary Care Unavailable Allergies Allergy Classification Reported Allergen(s) Allergy Type Date of Onset Reaction(s) Facility (1 source) Adhesive Tape; Translations: [Tape] Propensity to adverse reactions (disorder) [facility] Repository (7 sources) Desonide Drug Allergy 06-12-19 16 Unknown, Rash [facility] Repository (1 source) Latex Drug allergy (disorder) [facility] Repository (1 source) patient allergy list reviewed by nurse or physicia Propensity to adverse reactions 08-31-19 15 Comment:Done [facility] Other (1 source) Allergies Reconciled Propensity to adverse reactions Unknown [facility] Other (9 sources) Adhesive agent; Translations: [ADHESIVE] Drug Intolerance 10-26-[address] [facility] (2 sources) Adhesive Tape Drug allergy (disorder) 05-28-19 24 [facility] Repository Medications Current Medications Medication Drug Class(es) [...] Active Start: 12-31-2022 take 1 capsule by mo [facility] every eight hours Benzonatate 200 MG 1 capsule Orally Three times a day for 10 day(s) Dec, Active carvedilol 3.125 mg oral tablet (20 sources) alpha-Adrenergic Roxy, beta-Adrenergic Roxy Start: 11-18-2023 End: 11-17-2024 take 1 tablet by mouth twice daily Carvedilol 3.125 mg tablet Active 3.125 MG PO Twice daily December 21, 2023 11:00pm Start: 04-03-2021 End: 11-18-2023 take 1 tablet by mouth twice daily carvedilol (Coreg) 6.25 mg tablet Indications: ICD (implantable cardioverter-defibrillator) in place Take 1 tablet (6.25 mg) by mouth 2 times a day. 90 tablet 3 08/29/2023 11/18/2023 Discontinued (Dose adjustment) [facility] hours Carvedilol 3.125 MG 1 [...] as directed as directed as directed Active 24 hr metFORMIN hydrochloride 500 mg extended release oral tablet (1 source) Biguanide Start: 05-31-2024 take 1 tablet by mouth once daily, then take 1 tablet by mouth once daily Metformin 500 mg tablet extended release 24 hr Active 1000 MG PO Daily 60 May 31, 2024 12:00am Days 1 through 7 take 1 tab daily. methylPREDNISolone 4 mg oral tablet (3 sources) Corticosteroid Start: 05-08-2023 methylPREDNISolone 4 MG as directed Orally for 6 days May, Active Start: 01-09-2023 methylPREDNISo lone 4 MG as directed Orally for 6 days Jan, Active omeprazole 20 mg delayed release oral capsule (20 sources) Proton Pump Inhibitor Start: 04-21-2024 take 1 capsule by mouth once daily Omeprazole 20 mg capsule,delayed release(DR/EC) Active 0 .ROUTE .COMPLEX 90 April 21, 2024 10:49am TAKE 1 CAPSULE BY MOUTH EVERY DAY Start: 12-22-2023 End: 04-21-2024 take 1 capsule by mouth once daily Omeprazole 20 mg capsule,delayed release(DR/EC) Discontinued 20 MG PO Daily December 21, 2023 11:00pm April 21, 2024 10:49am take 1 capsule by [facility] once daily before breakfast omeprazole (PriLOSEC) 20 [...] Active Start: 12-24-2022 take 2 tablets by mo [facility] every twenty-four hours predniSONE 20 MG 2 tablets Orally Once a day for 5 days Dec, Active sacubitril 49 mg / valsartan 51 mg oral tablet (20 sources) Angiotensin 2 Receptor Roxy Start: 12-22-2023 take 1 tablet by mouth twice daily Sacubitril-Valsartan (Entresto) 49-51 mg tablet Active 1 TAB PO Twice daily December 21, 2023 11:00pm Start: 10-09-2021 End: 08-29-2023 take 1 tablet by mouth twice daily sacubitriL-valsartan (Entresto) 49-51 mg tablet Indications: ICD (implantable cardioverter-defibrillator) in place Take 1 tablet by mouth 2 times a day. 180 tablet 3 08/29/2023 Active take 1 tablet by yuliya th twice daily Entresto 24-26 MG TAKE 1 TABLET BY MOUTH TWICE A DAY for Active ENTRESTO 24 mg/2 6 mg 1 orally twice a day Active sertraline 50 mg oral tablet (20 sources) Serotonin Reuptake Inhibitor Start: 03-02-2024 End: 04-22-2024 take 1 tablet by mouth once daily Sertraline 50 mg tablet Active 50 MG PO Daily April 22, 2024 8:34am Start: 02-25-2024 End: 03-02-2024 take 1 tablet by mouth once daily Sertraline 100 mg tablet Discontinued 0 .ROUTE .COMPLEX February 25, 2024 2:49pm March 02, 2024 10:24am TAKE 1 TABLET BY MOUTH EVERY DAY Start: 06-20-2023 End: 02-25-2024 take 1 tablet by mouth once daily Sertraline 100 mg tablet Discontinued 100 MG PO Daily June 20, 2023 12:00am February 25, 2024 2:49pm take 1 tablet by yuliya twice daily sertraline (Zoloft) 50 mg tablet Take 1 tablet (50 mg) by mouth 2 times a day. Active take 2 tablets by mo [facility] once daily sertraline (Zoloft) 50 mg tablet Take 2 tablets (100 mg) by mouth once daily. Active take 1 tablet by yuliya once daily Sertraline HCl 100 MG TAKE 1 TABLET BY MOUTH EVERY DAY for Active take 1 tablet by yuliya once daily Sertraline HCl - 50 MG Oral Tablet TAKE 1 TABLET DAILY DIRECTED. Quantity: 0 Refills: 0 Ordered: 09-Aug-2021 DO Active tiZANidine 4 mg oral tablet (7 sources) Central alpha-2 Adrenergic Agonist tiZANidine HCl 4 MG TAKE 1 TABLET BY MOUTH THREE TIMES A DAY NEEDED FOR 30 DAYS for 20 Active Completed/Discontinued Medications Medication Drug Class(es) Dates Sig (Normalized) Sig (Original) Albuterol (8 sources) beta2-Adrenergic Agonist Start: 06-20-2023 End: 12-22-2023 [...] NEEDED FOR 30 DAYS for 30 Active Albuterol Sulfate 90 mcg/actuation HFA aerosol inhaler (2 sources) Start: 06-20-2023 End: 12-22-2023 take 1 puff(s) by inhalation every four to six hours as needed for wheezing Albuterol Sulfate 90 mcg/actuation HFA aerosol inhaler Discontinued 2 PUFF INHALATION EVERY 4-6 HOURS as needed for shortness of breath or wheezing 6.7 June 20, 2023 12:00am December 22, 2023 1:01pm ciprofloxacin 250 mg oral tablet (5 sources) Quinolone Antimicrobial take 1 tablet by mouth every twelve hours Ciprofloxacin HCl 250 MG 1 tablet Orally every 12 hrs Not-Taking ergocalciferol 0.05 mg oral capsule (13 sources) Provitamin D2 Compound Start: 10-09-2022 End: 08-29-2023 take 1 capsule by mouth once daily Vitamin D (Ergocalciferol) 50 MCG (2000 UT) Oral Capsule one daily OTC Quantity: 90 Refills: 0 Ordered: 09-Oct-2022 Lupe Boswell MD Start : 09-Oct-2022 Active Start: 05-23-2022 take 1 capsule by mo ut every week Vitamin D (Ergocalciferol) 1.25 MG (53446 UT) 1 capsule Orally weekly for 90 [...] TWICE A DAY Oral for 30 Not-Taking Nirmatrelvir-Ritona vir (Paxlovid) 300 mg (150 mg x 2)-100 mg tablets,dose pack (5 sources) Start: End: Nirmatrelvir-Ritonavi r (Paxlovid) 300 mg (150 mg x 2)-100 mg tablets,dose pack Discontinued 0 PO .COMPLEX December 21, 2023 11:00pm March 02, 2024 10:24am take TWO 150 mg tablets of nirmatrelvir with ONE 100 mg tablet of ritonavir twice daily for 5 days PO Start: 12-22-2023 End: 03-02-2024 Nirmatrelvir-Ritonavir (Paxl ovid) 300 mg (150 mg x 2)-100 mg tablets,dose pack Discontinued 0 PO .COMPLEX December 22, 2023 12:00am March 02, 2024 11:24am take TWO 150 mg tablets of nirmatrelvir with ONE 100 mg tablet of ritonavir twice daily for 5 days PO Start: 12-22-2023 Nirmatrelvir-R itonavir (Paxlovid) 300 mg (150 mg x 2)-100 mg tablets,dose pack Active 0 PO .COMPLEX December 22, 2023 12:00am take TWO 150 mg tablets of nirmatrelvir with ONE 100 mg tablet of ritonavir twice daily for 5 days PO traMADol hydrochloride 50 mg oral tablet (5 sources) Opioid Agonist take 1 tablet by yuliya th every twenty-four hours traMADol HCl 50 MG 1 tablet as needed Orally Once a day Not-Taking Problems Active Problems Problem Classification Problem Date Documented Date Episodic/Chronic Abdominal pain (15 sources) Right upper quadrant pain; Translations: [Right upper quadrant pain] Onset: 03-17-2017 Episodic Acute bronchitis (2 sources) Acute bronchitis; Translations: [Acute bronchitis] Onset: 08-30-2014 Episodic Anxiety disorders (14 sources) Generalized anxiety disorder; Translations: [Generalized anxiety disorder] Onset: 08-30-2014 Chronic Cardiac dysrhythmias (2 sources) Atrial fibrillation; Translations: [Unspecified atrial fibrillation] 05-31-2024 Chronic Chronic obstructive pulmonary disease and bronchiectasis [...] Onset: 05-21-2022 Episodic Diabetes mellitus without complication (16 sources) Impaired fasting glycemia; Translations: [Impaired fasting glucose] 05-31-2024 Episodic Esophageal disorders (14 sources) Gastroesophageal reflux [...] with other respiratory manifestations Episodic Mood disorders (20 sources) Depression; Translations: [Depressive disorder] Onset: 08-29-2017 03-11-2024 Chronic Nonspecific chest pain (20 sources) Precordial pain; Translations: [Precordial pain] Onset: 09-15-2017 Episodic Nutritional deficiencies (12 sources) Vitamin D deficiency; Translations: [Vitamin D deficiency, unspecified] Onset: 05-27-2022 Chronic Osteoarthritis (20 sources) Osteoarthritis; Translations: [Unspecified osteoarthritis, unspecified site] Onset: 05-14-2016 09-18-2023 Chronic Comment on above: bilateral Other acquired deformities (14 sources) Acquired deformity [...] Chronic Other nutritional; endocrine; and metabolic disorders (10 sources) Obesity; Translations: [Obesity, unspecified] Onset: 02-25-2023 08-29-2023 Chronic Other nutritional; endocrine; and metabolic disorders (1 source) Hypercalcemia; Translations: [Hypercalcemia] Onset: 03-17-2017 Chronic Other nutritional; endocrine; and metabolic disorders (8 sources) Obese class II; Translations: [Body mass index (BMI) 38.0-38.9, adult] 05-31-2024 Chronic Other nutritional; endocrine; and metabolic disorders (2 sources) Obesity, unspecified; Translations: [Obesity, unspecified] Onset: 05-12-2023 Chronic Other nutritional; endocrine; and metabolic disorders (2 sources) Body mass index (BMI) 37.0-37.9, adult; Translations: [Body mass index (BMI) 37.0-37.9, adult] Onset: 05-12-2023 Chronic Other upper respiratory disease (9 sources) Epistaxis; Translations: [Epistaxis] Episodic Other upper respiratory disease (5 sources) Bleeding from nose; Translations: [Epistaxis] Episodic Darlene-; endo-; and myocarditis; cardiomyopathy (except that caused by tuberculosis or sexually transmitted disease) (20 sources) Cardiomyopathy; Translations: [Other primary cardiomyopathies] Onset: 06-21-2014 Chronic Comment on above: Nonischemic; Residual codes; unclassified (20 sources) Obstructive sleep apnea of adult; Translations: [Obstructive sleep apnea (adult)(pediatric)] Onset: 02-22-2023 02-25-2023 Chronic Residual codes; unclassified (3 sources) Obstructive sleep apnea (adult) (pediatric); Translations: [Obstructive sleep apnea (adult)(pediatric)] Onset: 02-22-2023 Chronic Residual codes; unclassified (1 source) Obstructive sleep apnea syndrome; Translations: [Obstructive sleep apnea (adult) (pediatric)] 05-31-2024 Chronic Residual codes; unclassified (9 sources) Tobacco user; Translations: [Tobacco use] Episodic Spondylosis; intervertebral disc disorders; other back [...] [Contact with and (suspected) exposure to COVID-19] Urinary tract infections (14 sources) Urinary tract infectious disease; Translations: [Urinary tract infection, site not specified] Episodic Viral infection (6 sources) Disease caused by 2019-nCoV; Translations: [COVID-19] 12-22-2023 Episodic Past or Other Problems Problem Classification Problem Date Documented Date Episodic/Chronic Administrative/social admission (20 sources) Follow-up status; Translations: [Other specified counseling] Onset: 08-29-2023 08-29-2023 Episodic Bacterial infection; unspecified site (1 source) Bacterial infectious disease; Translations: [Bacterial infection, unspecified, in conditions classified elsewhere and of unspecified site] Onset: 04-10-2018 Episodic Deficiency and other anemia (1 source) Anemia; Translations: [Unspecified anemia] Onset: 05-26-2015 Episodic Malaise and fatigue (20 sources) Fatigue; Translations: [Other malaise and fatigue] Onset: 09-07-2021 Episodic Mood disorders (5 sources) Mood disorders Onset: 10-09-2021 06-16-2022 Neoplasms [...] symptoms referable to back] Onset: 03-17-2017 Episodic Residual codes; unclassified (5 sources) Never smoked tobacco; Translations: [Other specified health status] Onset: 08-29-2023 08-29-2023 Episodic Residual codes; unclassified (2 sources) Other specified health status; Translations: [Other specified health status] Onset: 08-29-2023 Episodic Unclassified (6 sources) Never smoked tobacco; Translations: [Never a smoker] Unclassified (1 source) LOW BACK PAIN, UNSPECIFIED; Translations: [LOW BACK PAIN, UNSPECIFIED] Onset: 08-15-2022 Unclassified (4 sources) Onset: 08-29-2023 Resolved: 11-18-2023 08-29-2023 Results Test Name Value Interpretation Reference Range Facility BASIC METABOLIC PANLon 05-20 Anion gap [Moles/Vol] 10 mmol/L Normal 5-15 [facility] Comment on above: Performed By: #### B MP #### [facility] ([id number]) [address], [address] [place] [address] Calcium [Mass/Vol] 9.3 mg/dL Normal 8.5-10.5 [facility] Comment on above: Performed By: #### B MP #### [facility] ([id number]) [address] [place] [address], [address] [place] [address] Chloride [Moles/Vol] 105 mmol/L Normal 98-109 [facility] Comment on above: Performed By: #### B MP #### [facility] ([id number]) [address], [address] [place] [address] CO2 [Moles/Vol] 26 mmol/L Normal 22-32 [facility] Comment on above: Performed By: #### B MP #### [facility] ([id number]) [address], [address] [place] [address] Creatinine [Mass/Vol] 0.73 mg/dL Normal 0.40-1.00 [facility] Comment on above: Result Comment: METH OD TRACEABLE TO IDMS STANDARD Performed By: #### B MP #### [facility] ([id number]) [address], [address] [place] [address] GFR/1.73 sq M.predicted among non-blacks MDRD (S/P/Bld) [Vol rate/Area] 89 mL/min/{1.73_m2} Normal >59 [facility] Comment on above: Result Comment: Reported eGFR is based on the CKD-EPI 2020 equation that does not use a race coefficient. Performed By: #### B MP #### [facility] ([id number]) [address], [address] [place] [address] Glucose [Mass/Vol] 121 mg/dL High 65-99 [facility] Comment on above: Performed By: #### B MP #### [facility] ([id number]) [address], [address] [place] [address] Potassium [Moles/Vol] 3.8 mmol/L Normal 3.5-5.0 [facility] Comment on above: Performed By: #### B MP #### [facility] ([id number]) [address], [address] [place] [address] Sodium [Moles/Vol] 141 mmol/L Normal 134-146 [facility] Comment on above: Performed By: #### B MP #### [facility] ([id number]) [address], [address] [place] [address] Urea nitrogen [Mass/Vol] 19 mg/dL Normal 5-27 [facility] Comment on above: Performed By: #### B MP #### [facility] ([id number]) [address] [place] [address] Cardiac Device Check - In Cl inicon 03-01-2024 [facility] Work Phone: Radiology Study observation (narrative) [facility] Work Phone: Influenza virus B Ag [Presen ce] in Upper respiratory specimen by Rapid immunoassayon 12-22-2023 FLUBV Ag IA.rapid Ql (Nph) Negative [facility] No Panel Informationon 12-21 Influenza Type A (Rapid) Negative [facility] POC SARS CoV-2 Antigen Positive [facility] Basic metabolic 2000 panelon 08-29-2023 Anion gap [Moles/Vol] 11 mmol/L Normal 10-20 [facility] Comment on above: Performed By: #### 2 4321-2 #### EMILE YEE ([id number]) [facility] ([facility]) [address] [place] [address] Calcium [Mass/Vol] 9.5 mg/dL Normal 8.6-10.3 [facility] Comment on above: Performed By: #### 2 4321-2 #### EMILE YEE ([id number]) [facility] ([facility]) [address] [place] [address] Chloride [Moles/Vol] 107 mmol/L Normal 98-107 [facility] Comment on above: Performed By: #### 2 4321-2 #### EMILE YEE ([id number]) [facility] ([facility]) [address] [place] [address] CO2 [Moles/Vol] 29 mmol/L Normal 21-32 [facility] Comment on above: Performed By: #### 2 4321-2 #### EMILE YEE ([id number]) [facility] ([facility]) [address] [place] [address] Creatinine [Mass/Vol] 0.75 mg/dL Normal 0.50-1.05 [facility] Comment on above: Performed By: #### 2 4321-2 #### EMILE YEE ([id number]) [facility] ([facility]) [address] [place] [address] Glomerular filtration rate/1.73 sq M.predicted 87 mL/min/1.73m*2 Normal >60 [facility] Comment on above: Result Comment: Calc ulations of estimated GFR are performed using the 2020 CKD-EPI Study Refit equation without the race variable for the IDMS-Traceable creatinine methods. https://jasn.asnjournals.org/content/early/ASN.3189242 988 Performed By: #### 2 4321-2 #### EMILE YEE ([id number]) [facility] ([facility]) [address] [place] [address] Glucose [Mass/Vol] 105 mg/dL High 74-99 [facility] Comment on above: Performed By: #### 2 4321-2 #### EMILE YEE ([id number]) [facility] ([facility]) [address] [place] [address] Potassium [Moles/Vol] 4.4 mmol/L Normal 3.5-5.3 [facility] Comment on above: Performed By: #### 2 4321-2 #### EMILE YEE ([id number]) [facility] ([facility]) [address] [place] [address] Sodium [Moles/Vol] 143 mmol/L Normal 136-145 [facility] Comment on above: Performed By: #### 2 4321-2 #### EMILE YEE ([id number]) [facility] ([facility]) [address] [place] [address] Urea nitrogen [Mass/Vol] 19 mg/dL Normal 6-23 [facility] Comment on above: Performed By: #### 2 4321-2 #### EMILE YEE ([id number]) [facility] ([facility]) [address] [place] [address] ECG 12 lead (Clinic Performe d)on 08-29-2023 See scan [facility] Work Phone: Echocardiogramon 11-22-[address], [address] [address] TRANSTHORACIC ECHOCARDIOGRAM REPORT Patient Name: NYA BELL Reading Physician: [id number] Lupe Boswell MD, [facility] Study Date: 11/22/2022 Referring LUPE BOSWELL Physician: MRN/PID: [id number] PCP: Anupam Pereira Accession/Order#: [id number] Department [facility] Location: Date of : 1955 Fellow: Gender: F Nurse: Admit Date: Asic Verification Engineer: Ashlyn Cam [facility], T Height: 152.40 cm CC Report to: Weight: 91.17 kg Study Type: Echocardiogram BSA: 1.87 m2 Blood Pressure: 134 /62 mmHg Diagnosis/ICD: I50.22-Chronic systolic (congestive) heart failure (CHF); I42.9-Cardiomyopathy, unspecified Indication: AICD, WALDEMAR, Obesity Procedure/CPT: Echo Complete w Full [id number] Study Detail: The following Echo studies were [...] AoV Mean P.0 mmHg (1.7-11.5mmHg) LVOT Max Lee Ann: 1.11 m/s (<=1.1m/s) AoV VTI: 36.40 cm (18-25cm) LVOT VTI: 26.60 cm LVOT Diameter: 1.90 cm (1.8-2.4cm) AoV Area, VTI: 2.07 cm2 (2.5-5.5cm2) AoV Area,Vmax: 1.88 cm2 (2.5-4.5cm2) AoV Dimensionless Index: 0.73 TRICUSPID VALVE/RVSP: Normal Ranges: Peak TR Velocity: 2.67 m/s RV Syst Pressure: 31.5 mmHg (< 30mmHg) PULMONIC VALVE: Normal Ranges: PV Max Lee Ann: 0.8 m/s (0.6-0.9m/s) PV Max P.3 mmHg [id number] Lupe Boswell MD, [facility] Electronically signed on 11/22/2022 at 1:01:56 PM Final Normal [facility] Office Visit (Cardiology)on 10-09-2022 Follow-up [...] Per Dr. Lupe Boswell MD, schedule at [facility] for echo Follow up in 6 months [...] scheduled. We will arrange for that at [facility]. Her weight is unchanged from previously and [...] AICD, device is assessed by electrophysiology at [facility] 3?cardiac catheterization 7 years ago at [facility] was normal 4? fatigue of unknown [...] Recorded: 09Oct2022 10:59AM Heart Rate72, L Radial Adbcufiz298, LUE, Sitting Cgmmmpnnm20, LUE, Sitting Height5 ft [id number] lb BMI Hycbrrdzpu94.26 kg/m2 BSA Calculated1.87 Tobacco Useb) No PHQ-2 [...] Cardiovascular: c (more content not included)... Normal [facility] Tobacco Screening.on 023 Fall risk assessment a) No falls within the last year -[facility] [address] DO Work Phone: Tobacco use status CP b) No -[facility] [address] DO Work Phone: Tobacco Screening. Yes [facility] [address] DO Work Phone: CBC AUTO DIFFon 05-21-2022 BASO # 0.0 103/ul Normal 0.0-0.1 [facility] Comment on above: Performed By: #### C BC ####[facility] [address] [place] [address]Dr. Phillip Mazariegos Basophils/100 WBC (Bld) 0.4 % Normal 0.2-2.0 [facility] Comment on above: Performed By: #### C BC ####[facility] [address] [place], [place] [address]Dr. Phillip Mazariegos EO # 0.2 103/ul Normal 0.0-0.7 [facility] Comment on above: Performed By: #### C BC ####[facility] [address] [place], [place] [address]Dr. Phillip Mazariegos Eosinophils/100 WBC (Bld) 2.0 % Normal 0.9-7.0 [facility] Comment on above: Performed By: #### C BC ####[facility] Iaeypppwjj[address] [place], [place] [address]Dr. Phillip Mazariegos Erythrocyte distribution width (RBC) [Ratio] 13.8 % Normal 11.0-15.0 [facility] Comment on above: Performed By: #### C BC ####[facility] [address] [place], [place] [address]Dr. Phillip Mazariegos Hematocrit (Bld) [Volume fraction] 36.3 % Normal 36.0-48.0 [facility] Comment on above: Performed By: #### C BC ####[facility] [address] [place], [place] [address]Dr. Phillip Mazariegos Hemoglobin (Bld) [Mass/Vol] 12.1 g/dL Normal 12.0-16.0 [facility] Comment on above: Performed By: #### C BC ####[facility] [address] [place] [address]Dr. Pihllip Mazariegos IG # 0.02 10e3/ul Normal 0.00-0.03 [facility] Comment on above: Performed By: #### C BC ####[facility] [address] [place] [address]Dr. Phillip Mazariegos IG % 0.3 % Normal 0.0-0.5 [facility] Comment on above: Performed By: #### C BC ####[facility] [address] [place] [address]Dr. Phillip Mazariegos LYMPH # 1.9 103/ul Normal 1.2-3.8 [facility] Comment on above: Performed By: #### C BC ####[facility] T[address]yj[address] [place] [address]Dr. Phillip Mazariegos Lymphocytes/100 WBC (Bld) 25.7 % Normal 20.5-60.0 [facility] Comment on above: Performed By: #### C BC ####[facility] [address]ub[address] [place] [address]Dr. Phillip Mazariegos MANUAL DIFF REQ NO [facility] Comment on above: Performed By: #### C BC ####[facility] [address] [place] [address]Dr. Phillip Mazariegos MCH (RBC) [Entitic mass] 28.7 pg Normal 26.7-34.0 [facility] Comment on above: Performed By: #### C BC ####[facility] [address] [place] [id number]. Phillip Mazariegos MCHC (RBC) [Mass/Vol] 33.3 g/dL Normal 29.9-35.2 [facility] Comment on above: Performed By: #### C BC ####[facility] [address] [place] [address]Dr. Phillip Mazariegos MCV (RBC) [Entitic vol] 86.0 fL Normal 81.0-99.0 [facility] Comment on above: Performed By: #### C BC ####[facility] [address]sf[address] [place] [id number]. Phillip Mazariegos MONO # 0.6 103/ul Normal 0.3-0.8 [facility] Comment on above: Performed By: #### C BC ####[facility] [address]fr[address] [id number]. Phillip Mazariegos Monocytes/100 WBC (Bld) 7.8 % Normal 1.7-12.0 [facility] Comment on above: Performed By: #### C BC ####[facility] [address] [place] [id number]. Phillip Mazariegos NEUT # 4.7 103/ul Normal 1.4-6.5 [facility] Comment on above: Performed By: #### C BC ####[facility] Bhkbqindsf[address] [place] [address]Dr. Phillip Mazariegos Neutrophils/100 WBC (Bld) 63.8 % Normal 43.0-75.0 [facility] Comment on above: Performed By: #### C BC ####[facility] Pgisteelg[address] [place], [place] [address]Dr. Phillip Mazariegos Platelet mean volume (Bld) [Entitic vol] 9.5 fL Normal 9.5-13.5 [facility] Comment on above: Performed By: #### C BC ####[facility] [address]rws[address] [place] [id number]. Phillip Mazariegos PLT 269 103/ul Normal 150-450 [facility] Comment on above: Performed By: #### C BC ####[facility] Rys[address]pukfg[address] [place] [id number]. Phillip Mazariegos RBC 4.22 106/ul Normal 4.20-5.40 [facility] Comment on above: Performed By: #### C BC ####[facility] Ebadhbykjp[address] [place] [id number]. Phillip Mazariegos WBC 7.4 103/ul Normal 4.0-11.0 [facility] Comment on above: Performed By: #### C BC ####[facility] Wvueuaayxj[address] [place] [address]DrBeau Mazariegos FERRITINon 05-21-2022 Ferritin [Mass/Vol] 212.0 ng/mL Normal 8.0-252.0 [facility] Comment on above: Performed By: #### F ERR, VITB12, VITAD #### [facility] [address] [address] [address] Phillip Mazariegos VITAMIN B12on 05-21-2022 Cobalamin (Vitamin B12) [Mass/Vol] 698.0 pg/mL Normal 193.0-986.0 [facility] Comment on above: Performed By: #### F ERR, VITB12, VITAD #### [facility] [address] [address] [address] Phillip Mazariegos VITAMIN D 25 OHon 05-21-2022 VIT D 25-OH 28.1 ng/mL Normal [facility] Comment on above: Performed By: #### F ERR, VITB12, VITAD ####[facility] N[address] [place], [place] [address]Dr. Phillip Mazariegos VIT D RANGES SEE BELOW Normal [facility] Comment on above: Result Comment: <20 ng/mL Vit D deficient 20 - <30 ng/mL Vit D insufficient 30 - 100 ng/mL Vit D sufficient >100 ng/mL Potential Toxicity Performed By: #### F ERR, VITB12, VITAD ####[facility] [address]eg[address] [place] [address]DrBeau Mazariegos PROF CHEM 8 (BAS METB)on Anion gap [Moles/Vol] 10.8 mmol/L Normal [facility] Comment on above: Performed By: #### B MP ####[facility] [address]klomfqbxw[address] [place] [address]DrBeau Mazariegos Calcium [Mass/Vol] 9.1 mg/dL Normal 8.5-10.1 [facility] Comment on above: Performed By: #### B MP ####[facility] [address]rdcsu[address] [place] [address]DrBeau Mazariegos Chloride [Moles/Vol] 108 mmol/L Critically high 98-107 [facility] Comment on above: Performed By: #### B MP ####[facility] Ttcafftbxl[address] [place] [address]Dr. Phillip Mazariegos CO2 [Moles/Vol] 29.6 mmol/L Normal 21.0-32.0 [facility] Comment on above: Performed By: #### B MP ####[facility] Ybpccwrtal[address] [place] [address]Dr. Phillip Mazariegos Creatinine [Mass/Vol] 0.85 mg/dL Normal 0.55-1.02 [facility] Comment on above: Performed By: #### B MP ####[facility] Pyvzknikhe[address] [place], [place] [address]Dr. Rerebrent Yair EGFR-AF EQUATORIAL GUINEAN >60 Normal >=60 [facility] Comment on above: Performed By: #### B MP ####[facility] Xocdqrvmah[address] [place], [place] [address]Dr. Rerebrent Yair EGFR-NON AF EQUATORIAL GUINEAN >60 Normal >=60 [facility] Comment on above: Performed By: #### B MP ####[facility] Nielljhauk[address] [place], [place] [address]Dr. Rerebrent Yair Glucose [Mass/Vol] 90 mg/dL Normal 74-106 [facility] Comment on above: Performed By: #### B MP ####[facility] Fpgznkewnu[address] [place], [place] [address]Dr. Rerebrent Yair Potassium [Moles/Vol] 4.4 mmol/L Normal 3.5-5.1 [facility] Comment on above: Performed By: #### B MP ####[facility] Ce[address]ongudl[address] [place], [place] [address]Dr. Phillip Mazariegos Sodium [Moles/Vol] 144 mmol/L Normal 136-145 [facility] Comment on above: Performed By: #### B MP ####[facility] Ekhfaxtyow[address] [place], [place] [address]Dr. Phillip Mazariegos Urea nitrogen [Mass/Vol] 24.0 mg/dL Critically high 7.0-18.0 [facility] Comment on above: Performed By: #### B MP ####[facility] [address] [place], [place] [address]GoBeau Mazariegos Urea nitrogen/Creatinine [Mass ratio] 28.2 mg/mg Normal [facility] Comment on above: Performed By: #### B MP ####[facility] [address] [place], [place] [address]QiBeau Phillip Mazariegos Office Visit (Cardiology)on 04-17-2022 Follow-up visit [...] Metabolic Panel; Status:Active - Retrospective Authorization; Requested for:[id number]; Echocardiogram; Status:Hold For - Scheduling,Retrospective Authorization; Requested for:[id number]; Class 2 obesity with body mass index (BMI) of 39.0 to 39.9 in adult Healthy Weight Tips; Status:Complete - Retrospective Authorization; Done: [id number] Some eating tips that can help you lose weight.; Status:Complete - Retrospective Authorization; Done: [id number] Patient Instructions Please bring all medicines, vitamins, [...] months continue current medications Chief Complaint NYA EBLL is being seen for cardiomyopathy. Patient is [...] AICD, device is assessed by electrophysiology at [facility] 3?cardiac catheterization 7 years ago at [facility] was normal 4?extreme fatigue of unknown [...] negative for complaint. Vitals Vital Signs Recorded: [id number] 11:16AM Heart Rate62, R Radial Kilymznc212, LUE, Sitting Nmlbevioq54, LUE, Sitting Height5 ft Efukaq130 lb 5 oz BMI Fccdlkluuh80.32 kg/m2 BSA Calculated1.87 Tobacco Useb) No Falls [...] is normal (more content not included)... Normal [facility] [employer] [facility] Tobacco Screening.on 022 Fall risk assessment a) No falls within the last year [facility] [employer] DO Work Phone: Tobacco use status [facility] b) No [facility] [employer] DO Work Phone: XR LSPINE MIN [...] MAREN MARTEL Date: 2022-02-05 07:27 Normal [facility] PROF CHEM 8 (BAS METB)on Anion gap [Moles/Vol] 12.0 mmol/L Normal [facility] Comment on above: Performed By: #### B MP #### [facility] [address] [address] [address] Phillip Mazariegos Calcium [Mass/Vol] 9.1 mg/dL Normal 8.5-10.1 [facility] Comment on above: Performed By: #### B MP #### [facility] [address] [address] [address] Phillip Mazariegos Chloride [Moles/Vol] 107 mmol/L Normal 98-107 [facility] Comment on above: Performed By: #### B MP #### [facility] [address] [address] [address] Phillip Mazariegos CO2 [Moles/Vol] 27.0 mmol/L Normal 21.0-32.0 [facility] Comment on above: Performed By: #### B MP #### [facility] [address] [address] [address] Phillip Mazariegos Creatinine [Mass/Vol] 0.89 mg/dL Normal 0.55-1.02 [facility] Comment on above: Performed By: #### B MP #### [facility] [address] [place] [address] Dr. Phillip Mazariegos EGFR-AF EQUATORIAL GUINEAN >60 Normal >=60 [facility] Comment on above: Performed By: #### B MP #### [facility] [address] [address] [address] Phillip Mazariegos EGFR-NON AF EQUATORIAL GUINEAN >60 Normal >=60 [facility] Comment on above: Performed By: #### B MP #### [facility] [address] [address] [address] Phillip Mazariegos Glucose [Mass/Vol] 109 mg/dL Critically high 74-106 [facility] Comment on above: Performed By: #### B MP #### [facility] [address] [place] [address] Dr. Phillip Mazariegos Potassium [Moles/Vol] 4.0 mmol/L Normal 3.5-5.1 [facility] Comment on above: Performed By: #### B MP #### [facility] [address] [place], [place] [address] Dr. Phillip Mazariegos Sodium [Moles/Vol] 142 mmol/L Normal 136-145 [facility] Comment on above: Performed By: #### B MP #### [facility] [address] [address] [address] Phillip Mazariegos Urea nitrogen [Mass/Vol] 19.0 mg/dL Critically high 7.0-18.0 [facility] Comment on above: Performed By: #### B MP #### [facility] [address] [address] [address] Phillip Mazariegos Urea nitrogen/Creatinine [Mass ratio] 21.3 mg/mg Normal [facility] Comment on above: Performed By: #### B MP #### [facility] [address] [address] [address] Phillip Mazariegos Tobacco Screening.on 022 Adult depression screening assessment No [facility] [employer] DO Work Phone: Adult depression screening assessment Yes [facility] [employer] 250 DO Work Phone: Fall risk assessment a) No falls within the last year [facility] [employer] DO Work Phone: Tobacco use status [facility] b) [facility] Work [facility]: Tobacco Screening. 3-Nearly every day [facility] DO Work Phone: Tobacco Screening. 0-Not at all [facility] [employer] DO Work Phone: Tobacco Screening. Very Difficult [facility] [employer] DO Work Phone: CULTURE URINEon 09-09-2021 [...] Trimethoprim/Sulfamethoxaz ole <=20 S F Normal [facility] Comment on above: Performed By: #### U RCX ####[facility] [address] [place] [address]Dr. Phillip Mazariegos CBC AUTO DIFFon 09-07-2021 BASO # 0.0 103/ul Normal 0.0-0.1 [facility] Comment on above: Performed By: #### C BC #### [facility] [address] [place] [address] Dr. Phillip Mazariegos Basophils/100 WBC (Bld) 0.4 % Normal 0.2-2.0 [facility] Comment on above: Performed By: #### C BC #### [facility] [address] [place] [address] Dr. Phillip Mazariegos EO # 0.1 103/ul Normal 0.0-0.7 [facility] Comment on above: Performed By: #### C BC #### [facility] [address] [address] [address] Phillip Mazariegos Eosinophils/100 WBC (Bld) 1.9 % Normal 0.9-7.0 [facility] Comment on above: Performed By: #### C BC #### [facility] [address] [place] [address] Dr. Phillip Mazariegos Erythrocyte distribution width (RBC) [Ratio] 13.4 % Normal 11.0-15.0 [facility] Comment on above: Performed By: #### C BC #### [facility] [address] [place] [address] Dr. Phillip Mazariegos Hematocrit (Bld) [Volume fraction] 39.6 % Normal 36.0-48.0 [facility] Comment on above: Performed By: #### C BC #### [facility] [address] [place] [address] Dr. Phillip Mazariegos Hemoglobin (Bld) [Mass/Vol] 13.0 g/dL Normal 12.0-16.0 [facility] Comment on above: Performed By: #### C BC #### [facility] [address] [place] [address] Dr. Phillip Mazariegos IG # 0.04 10e3/ul Critically high 0.00-0.03 [facility] Comment on above: Performed By: #### C BC #### [facility] [address] [place] [address] Dr. Phillip Mazariegos IG % 0.5 % Normal 0.0-0.5 [facility] Comment on above: Performed By: #### C BC #### [facility] [address] [place] [address] Dr. Phillip Mazariegos LYMPH # 1.9 103/ul Normal 1.2-3.8 [facility] Comment on above: Performed By: #### C BC #### [facility] [address] [place] [address] Dr. Phillip Mazariegos Lymphocytes/100 WBC (Bld) 26.2 % Normal 20.5-60.0 [facility] Comment on above: Performed By: #### C BC #### [facility] [address] [place] [address] Dr. Phillip Mazariegos MANUAL DIFF REQ NO Normal [facility] Comment on above: Performed By: #### C BC #### [facility] [address] [address] [address] Phillip Mazariegos MCH (RBC) [Entitic mass] 28.8 pg Normal 26.7-34.0 [facility] Comment on above: Performed By: #### C BC #### [facility] [address] [address] [address] Phillip Mazariegos MCHC (RBC) [Mass/Vol] 32.8 g/dL Normal 29.9-35.2 [facility] Comment on above: Performed By: #### C BC #### [facility] [address] [address] [address] Phillip Mazariegos MCV (RBC) [Entitic vol] 87.8 fL Normal 81.0-99.0 [facility] Comment on above: Performed By: #### C BC #### [facility] [address] [place] [address] Dr. Phillip Mazariegos MONO # 0.5 103/ul Normal 0.3-0.8 [facility] Comment on above: Performed By: #### C BC #### [facility] [address] [place] [address] Dr. Phillip Mazariegos Monocytes/100 WBC (Bld) 6.9 % Normal 1.7-12.0 [facility] Comment on above: Performed By: #### C BC #### [facility] [address] [place] [address] Dr. Phillip Mazariegos NEUT # 4.7 103/ul Normal 1.4-6.5 [facility] Comment on above: Performed By: #### C BC #### [facility] [address] [place] [address] Dr. Phillip Mazariegos Neutrophils/100 WBC (Bld) 64.1 % Normal 43.0-75.0 [facility] Comment on above: Performed By: #### C BC #### [facility] [address] [place] [address] Dr. Phillip Mazariegos Platelet mean volume (Bld) [Entitic vol] 9.6 fL Normal 9.5-13.5 [facility] Comment on above: Performed By: #### C BC #### [facility] [address] [address] [address] Phillip Mazariegos PLT 298 103/ul Normal 150-450 [facility] Comment on above: Performed By: #### C BC #### [facility] [address] [address] [address] Phillip Mazariegos RBC 4.51 106/ul Normal 4.20-5.40 [facility] Comment on above: Performed By: #### C BC #### [facility] [address] [place] [address] Dr. Phillip Mazariegos WBC 7.3 103/ul Normal 4.0-11.0 [facility] Comment on above: Performed By: #### C BC #### [facility] [address] [place] [address] Dr. Phillip Mazariegos PROF CHEM 8 (BAS METB)on Anion gap [Moles/Vol] 11.7 mmol/L Normal [facility] Comment on above: Performed By: #### T SH, BMP #### [facility] [address] [place] [address] Dr. Phillip Mazariegos Calcium [Mass/Vol] 8.8 mg/dL Normal 8.5-10.1 [facility] Comment on above: Performed By: #### T SH, BMP #### [facility] [address] [place] [address] Dr. Phillip Mazariegos Chloride [Moles/Vol] 103 mmol/L Normal 98-107 [facility] Comment on above: Performed By: #### T SH, BMP #### [facility] [address] [place] [address] Dr. Phillip Mazariegos CO2 [Moles/Vol] 28.0 mmol/L Normal 21.0-32.0 [facility] Comment on above: Performed By: #### T SH, BMP #### [facility] [address] [place] [address] Dr. Phillip Mazariegos Creatinine [Mass/Vol] 1.02 mg/dL Normal 0.55-1.02 [facility] Comment on above: Performed By: #### T SH, BMP #### [facility] [address] [address] [address] Phillip Mazariegos EGFR-AF EQUATORIAL GUINEAN >60 Normal >=60 [facility] Comment on above: Performed By: #### T SH, BMP #### [facility] [address] [address] [address] Phillip Mazariegos EGFR-NON AF EQUATORIAL GUINEAN 54 mL/min/1.73m2 Critically low >=60 [facility] Comment on above: Performed By: #### T SH, BMP #### [facility] [address] [address] [address] Phillip Mazariegos Glucose [Mass/Vol] 119 mg/dL Critically high 74-106 [facility] Comment on above: Performed By: #### T SH, BMP #### [facility] [address] [address] [address] Phillip Mazariegos Potassium [Moles/Vol] 3.7 mmol/L Normal 3.5-5.1 [facility] Comment on above: Performed By: #### T SH, BMP #### [facility] [address] [address] [address] Phillip Mazariegos Sodium [Moles/Vol] 139 mmol/L Normal 136-145 [facility] Comment on above: Performed By: #### T SH, BMP #### [facility] [address] [address] [address] Phillip Mazariegos Urea nitrogen [Mass/Vol] 19.0 mg/dL Critically high 7.0-18.0 [facility] Comment on above: Performed By: #### T SH, BMP #### [facility] [address] [address] [address] Phillip Mazariegos Urea nitrogen/Creatinine [Mass ratio] 18.6 mg/mg Normal [facility] Comment on above: Performed By: #### T SH, BMP #### [facility] [address] [address] [address] Phillip Mazariegos TSHon 09-07-2021 TSH 3.616 uIU/mL Normal 0.358-3.740 [facility] Comment on above: Performed By: #### T SH, BMP #### [facility] [address] [place] [address] Dr. Phillip Mazariegos TSH RANGE SEE BELOW Normal [facility] Comment on above: Result Comment: <0.3 4 UIU/ml HYPERTHYROID 0.34-5.60 UIU/ml EUTHYROID >5.60 UIU/ml HYPOTHYROID Performed By: #### T RICH, BMP #### [facility] [address] [address] [address] Phillip Mazariegos UA (CLEAN/CATCH) FINANCIAL ECONOMIST/MICRO I F IND.on 09-07-2021 Bilirubin Ql (U) Negative Normal NEGATIVE [facility] Comment on above: Performed By: #### U ACSIND ####[facility] [address] [place], [place] [address]Dr. Phillip Mazariegos Clarity (U) SL CLOUDY Abnormal CLEAR [facility] Comment on above: Performed By: #### U ACSIND ####[facility] Ayex[address]ia[address] [place], [place] [address]Dr. Phillip Mazariegos Color (U) YELLOW Normal YELLOW [facility] Comment on above: Performed By: #### U ACSIND ####[facility] C[address]yc[address] [place], [place] [address]Dr. Phillip Mazariegos Glucose Ql (U) Negative Normal NEGATIVE [facility] Comment on above: Performed By: #### U ACSIND ####[facility] Nobthhwnbi[address] [place], [place] [address]Dr. Phillip Mazariegos Hemoglobin Ql (U) Negative Normal NEGATIVE [facility] Comment on above: Performed By: #### U ACSIND ####[facility] [address]myekaqvr[address] [place], [place] [address]Dr. Phillip Mazariegos Ketones Ql (U) Negative Normal NEGATIVE [facility] Comment on above: Performed By: #### U ACSIND ####[facility] Tevtv[address]tsxy[address] [place], [place] [address]Dr. Phillip Mazariegos LEUKOCYTES Negative Normal NEGATIVE [facility] Comment on above: Performed By: #### U ACSIND ####[facility] [address] [place] [address]Dr. Phillip Mazariegos Nitrite Ql (U) Negative Normal NEGATIVE [facility] Comment on above: Performed By: #### U ACSIND ####[facility] [address] [place] [address]Dr. Phillip Mazariegos pH (U) 6.0 [pH] Normal 5-9 [facility] Comment on above: Performed By: #### U ACSIND ####[facility] [address]qq[address] [place], [place] [address]Dr. Phillip Mazariegos SPEC GRAVITY >=1.030 Abnormal 1.005-<=1.0 25 [facility] Comment on above: Performed By: #### U ACSIND ####[facility] [address] [place], [place] [address]Dr. Phillip Mazariegos UA PROTEIN Negative Normal NEGATIVE/ TRACE [facility] Comment on above: Performed By: #### U ACSIND ####[facility] [id number] [place], [place] [address]Dr. Phillip Mazariegos UR MICRO IND INDICATED Normal [facility] Comment on above: Performed By: #### U ACSIND ####[facility] [address] [place], [place] [address]Dr. Phillip Mazariegos Urobilinogen Qn (U) 0.2 {Trish'U}/dL Normal 0.2 - 1. 0 [facility] Comment on above: Performed By: #### U ACSIND ####[facility] Ev[address] [place], [place] [address]Dr. Phillip Mazariegos URINE MICROSCOPIC ONLYon BACTERIA SMALL Abnormal NONE SEEN [facility] Comment on above: Performed By: #### U MICRO #### [facility] [address] [place] [address] Dr. Phillip Mazariegos Bacteria identified Cx Nom (U) INDICATED Normal [facility] Comment on above: Performed By: #### U MICRO #### [facility] [address] [place] [address] Dr. Phillip Mazariegos CAST NONE SEEN Normal NONE SEEN [facility] Comment on above: Performed By: #### U MICRO #### [facility] [address] [address] [address] Phillip Mazariegos Crystals LM Nom (Urine sed) NONE SEEN Normal NONE SEEN [facility] Comment on above: Performed By: #### U MICRO #### [facility] [address] [address] [address] Phillip Mazariegos Epithelial cells LM Ql (Urine sed) FEW Abnormal NONE SEEN /RARE [facility] Comment on above: Performed By: #### U MICRO #### [facility] [address] [address] [address] Phillip Mazariegos MUCOUS TRACE Abnormal NONE SEEN [facility] Comment on above: Performed By: #### U MICRO #### [facility] [address] [place] [address] Dr. Phillip Mazariegos RBC NONE SEEN Abnormal 0-2 [facility] Comment on above: Performed By: #### U MICRO #### [facility] [address] [address] [address] Phillip Mazariegos WBC 0-2 Abnormal NONE SEEN [facility] Comment on above: Performed By: #### U MICRO #### [facility] [address] [place] [address] Dr. Phillip Mazariegos XR CHEST 2 Von [...] by: ELAINA ARRIAZA Date: 2021-09-07 15:03 Normal [facility] Radiologyon 08-28-2021 XR Chest 2 Views Normal [facility] 320 DO Work Phone: Laboratory - Chemistry and C hemistry - challengeon 08-02-2021 Anion gap [Moles/Vol] 11 mmol/L 10 - 20 [facility] [place] 250 DO Work Phone: Calcium [Mass/Vol] 9.3 mg/dL 8.6 - 10.3 [facility] Work Phone: [phone] Chloride [Moles/Vol] 107 mmol/L 98 - 107 [facility] [address] [facility] Work Phone: [phone] CO2 [Moles/Vol] 27 mmol/L 21 - 32 [place] [address] DO Work Phone: [phone] Creatinine [Mass/Vol] 0.79 mg/dL See Below [place] [address] DO Work Phone: [phone] Comment on above: Reference Range: 0.5 0 - 1.05 Glucose [Mass/Vol] 98 mg/dL 74 - 99 [place] [address] DO Work Phone: [phone] Potassium [Moles/Vol] 3.7 mmol/L 3.5 - 5.3 [place] [address] DO Work Phone: [phone] Sodium [Moles/Vol] 141 mmol/L 136 - 145 [place] [address] DO Work Phone: Urea nitrogen [Mass/Vol] 20 mg/dL 6 - 23 [place] [address] DO Work Phone: [phone] Laboratory - Coagulationon 0 08-02-2021 aPTT Coag (PPP) [Time] 32 s 26 - 39 [place] [address] DO Work Phone: Comment on above: THE APTT IS NO LONGE R USED FOR MONITORING UNFRACTIONATED HEPARIN THERAPY. FOR MONITORING HEPARIN THERAPY, USE THE HEPARIN ASSAY. INR Coag (PPP) [Relative time] 1.0 {INR} 0.9 - 1.1 [place] [address] DO Work Phone: [phone] PT Coag (PPP) [Time] 11.9 s 9.8 - 13.4 [place] [address] DO Work Phone: [phone] Laboratory - Hematology and Cell countson 08-02-2021 Erythrocyte distribution width (RBC) [Ratio] 13.3 % See Below [facility] Maryana Plummer DO Work Phone: Comment on above: Reference Range: 11. 5 - 14.5 Hematocrit (Bld) [Volume fraction] 37.9 % See Below [facility] Maryana Plummer DO Work Phone: Comment on above: Reference Range: 36. 0 - 46.0 Hemoglobin (Bld) [Mass/Vol] 12.7 g/dL See Below [facility] Maryana Plummer DO Work Phone: Comment on above: Reference Range: 12. 0 - 16.0 MCHC (RBC) [Mass/Vol] 33.5 g/dL See Below [facility] Maryana Plummer DO Work Phone: Comment on above: Reference Range: 32. 0 - 36.0 MCV (RBC) [Entitic vol] 88 fL 80 - 100 [facility] Maryana villarreal [facility] DO Work Phone: [phone] Platelets (Bld) [#/Vol] 168 10*3/uL 150 - 450 [facility] Maryana Plummer DO Work Phone: [phone] RBC (Bld) [#/Vol] 4.33 {x10E12/L} See Below [facility] Maryana Plummer DO Work Phone: Comment on above: Reference Range: 4.0 0 - 5.20 WBC (Bld) [#/Vol] 7.3 10*3/uL 4.4 - 11.3 [facility] Maryana villarreal 250 DO Work Phone: No Panel Informationon 08-02 [email or web address]?R etrieveTestByDateTime?Judy rlaCJ=[id number]&Date=&Time=07%3a58%3a03%3a 00&TestType=ECG&Site=11&Ou tputType=PDF&Ext=PDF [facility] [place] 250 DO Work Phone: [phone] Atrial-sensed ventricular-paced rhythm [facility] [place] 250 DO Work Phone: [phone] [facility] [place] 250 DO Work Phone: [phone] [facility] [place] 250 DO Work Phone: [phone] [facility] [place] 250 DO Work Phone: [phone] [facility] [place] 250 DO Work Phone: [phone] [facility] [place] 250 DO Work Phone: [phone] [facility] [place] 250 DO Work Phone: [phone] [facility] [place] 250 DO Work Phone: [phone] [facility] [place] 250 DO Work Phone: [phone] [facility] [place] 250 DO Work Phone: [phone] [facility] [place] 250 DO Work Phone: [phone] [facility] [place] 250 DO Work Phone: [phone] [facility] [place] 250 DO Work Phone: [phone] [facility] [place] 250 DO Work Phone: [phone] [facility] [place] 250 DO Work Phone: [phone] [facility] [place] 250 DO Work Phone: 82 {mL/min/1.73m2} >90 [facility] 250 DO Work Phone: [phone] Comment on above: CALCULATIONS OF PHUC MATED GFR ARE PERFORMED USING THE 2020 CKD-EPI STUDY REFIT EQUATION WITHOUT THE RACE VARIABLE FOR THE IDMS-TRACEABLE CREATININE METHODS.[email or web address].asnjournals.org/content//ASN .[email or web address] Radiologyon 08-02-2021 XR Chest 2 Views Normal [facility] [place] 250 DO Work Phone: COVID-19 SOFIAOrdered By: Awais Mayes on 07-31-2021 SARS-CoV+SARS-CoV-2 (COVID-19) Ag IA.rapid Ql (Resp) Negative Negative [facility] Comment on above: This is a duplicate Gretchen SARS Antigen (RUSTAM) result to be used for statistical tracking purpose only. No Panel InformationOrdered By: Daphne Mayes on 07-31-2021 SARS Antigen (LFIA) [facility] Basophils Auto (Bld) [#/Vol] Ordered By: Daphne Mayes on 07-18-2021 Basophils (Bld) [#/Vol] 0.0 10*3/uL 0.0-0.2 [facility] Basophils/100 WBC Auto (Bld) Ordered By: Daphne Mayes on 07-18-2021 Basophils/100 WBC (Bld) 0.5 % [facility] Blood hemoglobin measurement (mass/volume)Ordered By: Daphne Mayes on 07-18-2021 Hemoglobin (Bld) [Mass/Vol] 13.2 g/dL 11.8-15.4 [facility] Blood leukocytes automated c ount (number/volume)Ordered By: Daphne Mayes on 07-18-2021 WBC (Bld) [#/Vol] 6.3 10*3/uL 4.5-11.0 [facility] COVID-19 Positive/NegativeOr dered By: Daphne Mayes on 07-18-2021 SARS-CoV-2 (COVID-19) N gene MELL+probe Ql (Resp) Positive Negative [facility] Comment on above: Positive results ying l only be called to Providers for the following groups of patients: Pre-Surgical Testing, Emergency Room, and Inpatients.Testing for SARS-CoV-2 by RT-PCRThis test was developed and its performance characteristics determined by [employer] ([employer]) and validated at the [facility]. This test has not been FDA cleared [...] on 07-18-2021 Creatinine [Mass/Vol] 0.76 mg/dL 0.44-1.03 [facility] Eosinophils Auto (Bld) [#/Vo l]Ordered By: Daphne Mayes on 07-18-2021 Eosinophils (Bld) [#/Vol] 0.2 10*3/uL 0.0-0.45 [facility] Eosinophils/100 WBC Auto (Bl d)Ordered By: Daphne Mayes on 07-18-2021 Eosinophils/100 WBC (Bld) 2.7 % [facility] Erythrocyte distribution wid th Auto (RBC) [Ratio]Ordered By: Daphne Mayes on 07-18-2021 Erythrocyte distribution width (RBC) [Ratio] 14.1 % 11.9-15.3 [facility] Estimated glomerular filtrat ion rate (GFR) non- AmericanOrdered By: Daphne Mayes on 07-18-2021 GFR/1.73 sq M.predicted among non-blacks MDRD (S/P/Bld) [Vol rate/Area] > 60 mL/Min [facility] Hematocrit Auto (Bld) [Volum e fraction]Ordered By: Daphne Mayes on 07-18-2021 Hematocrit (Bld) [Volume fraction] 39.3 % 34.0-46.4 [facility] Laboratory - CoagulationOrde red By: Daphne Mayes on 07-18-2021 PT Coag (PPP) [Time] 12.7 s 9.0-12.9 [facility] - Hematology and Cell countsOrdered By: Daphne Mayes on 07-18-2021 Nucleated RBC/100 WBC (Bld) [Ratio] 0.2 % 0-0.5 [facility] Lymphocytes Auto (Bld) [#/Vo l]Ordered By: Daphne Mayes on 07-18-2021 Lymphocytes (Bld) [#/Vol] 1.8 10*3/uL 1.00-4.8 [facility] Lymphocytes/100 WBC Auto (Bl d)Ordered By: Daphne Mayes on 07-18-2021 Lymphocytes/100 WBC (Bld) 28.3 % [facility] MCH Auto (RBC) [Entitic mass ]Ordered By: Daphne Mayes on 07-18-2021 MCH (RBC) [Entitic mass] 29.3 pg 24.7-34.3 [facility] MCHC Auto (RBC) [Mass/Vol]Or dered By: Daphne Mayes on 07-18-2021 MCHC (RBC) [Mass/Vol] 33.5 g/dL 32.0-35.0 [facility] MCV Auto (RBC) [Entitic vol] Ordered By: Daphne Mayes on 07-18-2021 MCV (RBC) [Entitic vol] 87.5 fL 80-100 [facility] Monocytes Auto (Bld) [#/Vol] Ordered By: Daphne Mayes on 07-18-2021 Monocytes (Bld) [#/Vol] 0.5 10*3/uL 0.0-0.8 [facility] Monocytes/100 WBC Auto (Bld) Ordered By: Daphne Mayes on 07-18-2021 Monocytes/100 WBC (Bld) 7.5 % [facility] Neutrophils Auto (Bld) [#/Vo l]Ordered By: Daphne Mayes on 07-18-2021 Neutrophils (Bld) [#/Vol] 3.9 10*3/uL 1.8-7.7 [facility] Neutrophils/100 WBC Auto (Bl d)Ordered By: Daphne Mayes on 07-18-2021 Neutrophils/100 WBC (Bld) 61.0 % [facility] No Panel InformationOrdered By: Daphne Mayes on 07-18-2021 Estimated GFR () > 60 mL/Min [facility] Comment on above: GFR estimated refere nce range: According to KDOQI guidelines, <60 ml/min/1.73m2 is sufficient to diagnose a patient with chronic kidney disease. Pharmacy Creatinine Clearance (Chem N/A [facility] Platelet mean volume Auto (B ld) [Entitic vol]Ordered By: Daphne Mayes on 07-18-2021 Platelet mean volume (Bld) [Entitic vol] 8.5 fL 6.3-10.7 [facility] Platelet poor plasma interna tional normalized ratio (INR) by coagulation assay (relatOrdered By: Daphne Mayes on 07-18-2021 INR Coag (PPP) [Relative time] 1.1 {INR} [facility] Comment on above: INR Therapeutic Rang e [...] 07-18-2021 Platelets (Bld) [#/Vol] 282 10*3/uL 150-450 [facility] RBC Auto (Bld) [#/Vol]Ordere d By: Daphne Mayes on 07-18-2021 RBC (Bld) [#/Vol] 4.49 10*6/uL 3.60-5.00 [facility] Serum or plasma calcium khurram urement (mass/volume)Ordered By: Daphne Mayes on 07-18-2021 Calcium [Mass/Vol] 9.3 mg/dL 8.2-10.2 [facility] Serum or plasma chloride stephen surement (moles/volume)Ordered By: Daphne Mayes on 07-18-2021 Chloride [Moles/Vol] 103 mmol/L 95-114 [facility] Serum or plasma glucose khurram urement (mass/volume)Ordered By: Daphne Mayes on 07-18-2021 Glucose [Mass/Vol] 118 mg/dL 70-100 [facility] Comment on above: ADA recommended refe rence rangeRandom Glucose Reference Range is dependent on time and content of last meal. Glucose of more than 200 mg/dL in a nonstressed, ambulatory subject supports the diagnosis of Diabetes Mellitus. Serum or plasma potassium me asurement (moles/volume)Ordered By: Daphne Mayes on 07-18-2021 Potassium [Moles/Vol] 3.9 mmol/L 3.5-5.1 [facility] Serum or plasma sodium measu rement (moles/volume)Ordered By: Daphne Mayes on 07-18-2021 Sodium [Moles/Vol] 139 mmol/L 136-146 [facility] Serum or plasma total carbon dioxide measurement (moles/volume)Ordered By: Daphne Mayes on 07-18-2021 CO2 [Moles/Vol] 26.2 mmol/L 22.0-30.0 [facility] Serum or plasma urea nitroge n measurement (mass/volume)Ordered By: Daphne Mayes on 07-18-2021 Urea nitrogen [Mass/Vol] 16 mg/dL 9-23 [facility] CBCon 08-01-2020 Erythrocyte distribution width (RBC) [Ratio] 13.4 % Normal 11.5 - 14.5 [facility] Comment on above: Performed By: #### C BC #### [address] [id number] Hematocrit (Bld) [Volume fraction] 41.9 % Normal 36.0 - 46.0 [facility] Comment on above: Performed By: #### C BC #### [address] [id number] Hemoglobin (Bld) [Mass/Vol] 13.3 g/dL Normal 12.0 - 16.0 [facility] Comment on above: Performed By: #### C BC #### [address] [id number] MCHC (RBC) [Mass/Vol] 31.7 g/dL Low 32.0 - 36.0 [facility] Comment on above: Performed By: #### C BC #### [address] [id number] MCV (RBC) [Entitic vol] 91 fL Normal 80 - 100 [facility] Comment on above: Performed By: #### C BC #### [address] [id number] Platelets (Bld) [#/Vol] 205 10*3/uL Normal 150 - 450 [facility] Comment on above: Performed By: #### C BC #### [address] [id number] RBC (Bld) [#/Vol] 4.62 x10E12/L Normal 4.00 - 5.20 [facility] Comment on above: Performed By: #### C BC #### [address] [id number] WBC (Bld) [#/Vol] 7.4 10*3/uL Normal 4.4 - 11.3 [facility] Comment on above: Performed By: #### C BC #### [address] [id number] CREATININEon 08-01-2020 Creatinine [Mass/Vol] 0.77 mg/dL Normal 0.50 - 1.05 [facility] Comment on above: Performed By: #### C REAT #### [address] [id number] Creatinine [Mass/Vol] mg/dL Normal >60 [facility] Comment on above: Result Comment: CALC ULATIONS OF ESTIMATED GFR ARE PERFORMED USING THE MDRD STUDY EQUATION FOR THE IDMS-TRACEABLE CREATININE METHODS. CLIN CHEM 2007;53:766-72 Performed By: #### C REAT #### [address] [id number] ELECTROLYTE PANELon 08-02-19 21 Anion gap [Moles/Vol] 12 mmol/L Normal 10 - 20 [facility] Comment on above: Performed By: #### E LECT #### [address] [id number] Chloride [Moles/Vol] 107 mmol/L Normal 98 - 107 [facility] Comment on above: Performed By: #### E LECT #### [address] [id number] HCO3 (Bld) [Moles/Vol] 28 mmol/L Normal 21 - 32 [facility] Comment on above: Performed By: #### E LECT #### [facility] [address] [place], [place] [id number] Potassium [Moles/Vol] 3.7 mmol/L Normal 3.5 - 5.3 [facility] Comment on above: Performed By: #### E LECT #### [address] [id number] Sodium [Moles/Vol] 143 mmol/L Normal 136 - 145 [facility] [place] Comment on above: Performed By: #### E LECT #### [address] [id number] UREA NITROGENon 08-01-2020 Urea nitrogen [Mass/Vol] 17 mg/dL Normal 6 - 23 [facility] Comment on above: Performed By: #### U SHARON #### [address] [id number] CNNURSEon 11-13-2018 CNNURSE Nurse Visit (CARDMN) -- NYA BELL ([id number]) 1955 F Date Time Provider Department 11/13/18 7:00 AM RESEARCH NURSE CARD BALA DAS During your visit today, we recorded the following information about you: Aba Fraustotrungdominique [facility] 11/13/2018 4:02 PM Signed IRB [id number] TRIM-AF Study (Upstream Targeting for the Prevention of Atrial Fibrillation: Targeting Risk Interventions and Metformin for Atrial Fibrillation) PI: Jose Hodge I called the patient to follow up on potential participation in the TRIM-AF (NO AF Biomarker) study. The patient was unavailable and I left a voicemail to return my call at her convenience. Aba Rodriguez [facility] November 13, 2018 2:31 PM Referring Provider: JONA WAN [[id number]] Allergies As of Date: 11/13/2018 Noted Allergy Reaction ADHESIVE TAPE (ROSINS) 10/25/2013 16 - Unknown Date Reviewed: 06/03/2017 Reviewed by: Juan IrvingRn) MICHEL Jones - Fully Assessed Reason for [...] Obesity [E66.9] INVALID FOR* Encounter Status:Closed [facility] on 11/13/18 [facility] PROGRESSon 11-13-2018 PROGRESS HNO ID: [id number] Author: Aba Rodriguez [facility] Service: ? Author Type: ? Type: [...] return my call at her convenience. Aba Fraustorichrosa [facility] November 13, 2018 2:31 PM Normal [facility] Coding Summary.on 07-02-2017 Coding Summary. CODING DATE: 018 FINAL [facility] STATUS: Home (Routine DC) PAYOR: Medicare APC [...] Stubbs Date Saved: 07/02/2017 08:19 am Normal [facility] Vital Signs Date Time Vital Sign Value Performing Clinician Facility 05-31-2024 11:36-0500 Body height 149.22 cm [facility] 05-31-2024 11:36-0500 Body mass index (BMI) [Ratio] 39.7 kg/m2 [facility] 05-31-2024 11:36-0500 Body weight 88.59 kg [facility] 05-31-2024 11:36-0500 Diastolic blood pressure 76 mm[Hg] [facility] 05-31-2024 11:36-0500 Heart rate 65 /min [facility] 05-31-2024 11:36-0500 Respiratory rate 16 /min [facility] 05-31-2024 11:36-0500 SaO2% (BldA) [Mass fraction] 98 % [facility] 05-31-2024 11:36-0500 Systolic blood pressure 114 mm[Hg] [facility] 03-02-2024 10:53-0400 Body height 151.13 cm [facility] 03-02-2024 10:53-0400 Body mass index (BMI) [Ratio] 38.7 kg/m2 [facility] 03-02-2024 10:53-0400 Body weight 88.45 kg [facility] 03-02-2024 10:53-0400 Diastolic blood pressure 81 mm[Hg] [facility] 03-02-2024 10:53-0400 Heart rate 78 /min [facility] 03-02-2024 10:53-0400 Systolic blood pressure 137 mm[Hg] [facility] 12-22-2023 13:59-0400 Body height 151.13 cm [facility] 12-22-2023 13:59-0400 Body mass index (BMI) [Ratio] 39.5 kg/m2 [facility] 12-22-2023 13:59-0400 Body temperature 98.6 [degF] [facility] 12-22-2023 13:59-0400 Body weight 90.37 kg [facility] 12-22-2023 13:59-0400 Heart rate 95 /min [facility] 12-22-2023 13:59-0400 Respiratory rate 18 /min [facility] 12-22-2023 13:59-0400 SaO2% (BldA) [Mass fraction] 97 % [facility] 11-18-2023 10:43-0400 Body height 152.4 cm Lupe Boswell MD Work Phone: [facility] 11-18-2023 10:43-0400 Body mass index (BMI) [Ratio] 37.5 kg/m2 Lupe Boswell MD Work Phone: [facility] 11-18-2023 10:43-0400 Body weight 87.09 kg Lupe Boswell MD Work Phone: [facility] 11-18-2023 10:43-0400 Diastolic blood pressure 64 mm[Hg] Lupe Boswell MD Work Phone: [facility] 11-18-2023 10:43-0400 Heart rate 76 /min Lupe Boswell MD Work Phone: [facility] 11-18-2023 10:43-0400 Systolic blood pressure 106 mm[Hg] Lupe Boswell MD Work Phone: [facility] 08-29-2023 10:30-0400 Body height 152.4 cm Daphne Mayes MD Work Phone: [facility] 08-29-2023 10:30-0400 Body mass index (BMI) [Ratio] 37.5 kg/m2 Daphne Mayse MD Work Phone: [facility] 08-29-2023 10:30-0400 Body weight 87.09 kg Daphne Mayes MD Work Phone: [facility] 08-29-2023 10:30-0400 Diastolic blood pressure 80 mm[Hg] Daphne Mayes MD Work Phone: [facility] 08-29-2023 10:30-0400 Heart rate 64 /min Daphne Mayes MD Work Phone: [facility] 08-29-2023 10:30-0400 Systolic blood pressure 136 mm[Hg] Daphne Mayes MD Work Phone: [facility] 05-28-2023 11:30-0500 Body height 151.13 cm Anupam Pereira Other [facility] Other 05-28-2023 11:30-0500 Body mass index (BMI) [Ratio] 37.33 kg/m2 Anupam Pereira Other [facility] Other 05-28-2023 11:30-0500 Body weight 85.28 kg Anupam Pereira Other [facility] Other 05-28-2023 11:30-0500 Diastolic blood pressure 82 mm[Hg] Anupam Pereira Other [facility] Other 05-28-2023 11:30-0500 Systolic blood pressure 121 mm[Hg] Anupam Pereira Other [facility] Other 05-12-2023 13:32-0500 Body height 152.4 cm Lupe Boswell MD Work Phone: [facility] 05-12-2023 13:32-0500 Body mass index (BMI) [Ratio] 37.3 kg/m2 Lupe Boswell MD Work Phone: [facility] 05-12-2023 13:32-0500 Body weight 86.64 kg Lupe Boswell MD Work Phone: [facility] 05-12-2023 13:32-0500 Diastolic blood pressure 60 mm[Hg] Lupe Boswell MD Work Phone: [facility] 05-12-2023 13:32-0500 Heart rate 62 /min Lupe Boswell MD Work Phone: [facility] 05-12-2023 13:32-0500 Systolic blood pressure 106 mm[Hg] Lupe Boswell MD Work Phone: [facility] 02-25-2023 10:10-0400 Body height 152.4 cm Maurizio Jorgensen [employer] Work Phone: [facility] 02-25-2023 10:10-0400 Body mass index (BMI) [Ratio] 37.69 kg/m2 Maurizio Jorgensen [employer] Work Phone: [facility] 02-25-2023 10:10-0400 Body weight 87.54 kg Maurizio Jorgensen [employer]ICE PRES[employer] Work Phone: [facility] 02-25-2023 10:10-0400 Diastolic blood pressure 80 mm[Hg] Maurizio Jorgensen [employer]ICE [employer] Work Phone: [facility] 02-25-2023 10:10-0400 Heart rate 74 /min Maurizio Jorgensen [employer]ICE [employer] Work Phone: [facility] 02-25-2023 10:10-0400 Systolic blood pressure 132 mm[Hg] Mauriziopaige Jorgensen APRN-VICE PRESIDENT [employer] Work Phone: [facility] 01-09-2023 13:15-0400 Body height 151.13 cm Anupam Pereira Other [facility] Other 01-09-2023 13:15-0400 Body mass index (BMI) [Ratio] 38.05 kg/m2 Anupam Pereira Other [employer] Other 01-09-2023 13:15-0400 Body weight 86.91 kg Anupam Pereira Other [employer] Other 01-09-2023 13:15-0400 Diastolic blood pressure 95 mm[Hg] Anupam Pereira Other [employer] Other 01-09-2023 13:15-0400 Systolic blood pressure 140 mm[Hg] Anupam Pereira Other [employer] [facility] [employer] Other 12-31-2022 14:15-0400 Body height 151.13 cm Anupam Pereira Other [employer] [facility] [employer] Other 12-31-2022 14:15-0400 Body mass index (BMI) [Ratio] 38.32 kg/m2 Anupam Pereira Other [employer] Other 12-31-2022 14:15-0400 Body temperature 97.9 [degF] Anupam Pereira Other [employer] [facility] [employer] Other 12-31-2022 14:15-0400 Body weight 87.54 kg Anupam Pereira Other [employer] Other 12-31-2022 14:15-0400 Diastolic blood pressure 83 mm[Hg] Anupam Pereira Other [employer] Other 12-31-2022 14:15-0400 Systolic blood pressure 127 mm[Hg] Anupam Pereira Other [employer] Other 12-24-2022 10:45-0400 Body height 151.13 cm Anupam Pereira Other [employer] Other 12-24-2022 10:45-0400 Body mass index (BMI) [Ratio] 38.52 kg/m2 Anupam Pereira Other [employer] Other 12-24-2022 10:45-0400 Body weight 88 kg Anupam Pereira Other [employer] Other 12-24-2022 10:45-0400 Diastolic blood pressure 75 mm[Hg] Anupam Pereira Other [employer] Other 12-24-2022 10:45-0400 Systolic blood pressure 111 mm[Hg] Anupam Pereira Other [employer] Other 10-09-2022 10:59-0400 Body height 152.4 cm Anupam Pereira Work Phone: [facility] DO Work Phone: 10-09-2022 10:59-0400 Body mass index (BMI) [Ratio] 39.26 kg/m2 Anupam Pereira Work Phone: [employer] 250 DO Work Phone: 10-09-2022 10:59-0400 Body surface area Derived from formula 1.87 m2 Anupam Pereira Work Phone: [employer] [employer] 250 DO Work Phone: 10-09-2022 10:59-0400 Body weight 91.17 kg Anupam Pereira Work Phone: [facility] 250 DO Work Phone: 10-09-2022 10:59-0400 Diastolic blood pressure 64 mm[Hg] Anupam Pereira Work Phone: [facility] Z2 250 DO Work Phone: 10-09-2022 10:59-0400 Heart rate 72 /min Anupam Pereira Work Phone: [facility] Z2 250 DO Work Phone: 10-09-2022 10:59-0400 Systolic blood pressure 124 mm[Hg] Anupam Pereira Work Phone: [facility] Z2 250 DO Work Phone: 05-21-2022 15:30-0500 Body height 151.13 cm Anupam Pereira Other [employer] Other 05-21-2022 15:30-0500 Body mass index (BMI) [Ratio] 40.11 kg/m2 Anupam Pereira Other [employer] Other 05-21-2022 15:30-0500 Body weight 91.63 kg Anupam Pereira Other [employer] Other 05-21-2022 15:30-0500 Diastolic blood pressure 70 mm[Hg] Anupam Pereira Other [employer] Other 05-21-2022 15:30-0500 SaO2% (BldA) [Mass fraction] 97 % Anupam Pereira Other [employer] Other 05-21-2022 15:30-0500 Systolic blood pressure 126 mm[Hg] Anupam Pereira Other [employer] Other 04-17-2022 11:16-0500 Body height 152.4 cm Anupam Pereira Work Phone: [facility] 250 DO Work Phone: 04-17-2022 11:16-0500 Body mass index (BMI) [Ratio] 39.32 kg/m2 Anupam Pereira Work Phone: [facility] 250 DO Work Phone: 04-17-2022 11:16-0500 Body surface area Derived from formula 1.87 m2 Anupam Pereira Work Phone: [facility] 250 DO Work Phone: 04-17-2022 11:16-0500 Body weight 91.31 kg Anupam Pereira Work Phone: [facility] 250 DO Work Phone: 04-17-2022 11:16-0500 Diastolic blood pressure 84 mm[Hg] Anupam Pereira Work Phone: [facility] 250 DO Work Phone: 04-17-2022 11:16-0500 Heart rate 62 /min Anupam Pereira Work Phone: [facility] 250 DO Work Phone: 04-17-2022 11:16-0500 Systolic blood pressure 126 mm[Hg] Anupam Pereira Work Phone: [facility] 250 DO Work Phone: 10-09-2021 13:20-0400 Body height 152.4 cm Anupam Pereira Work Phone: [facility] 250 DO Work Phone: 10-09-2021 13:20-0400 Body mass index (BMI) [Ratio] 40.23 kg/m2 Anupam Pereira Work Phone: [facility] 250 DO Work Phone: 10-09-2021 13:20-0400 Body surface area Derived from formula 1.89 m2 Anupam Pereira Work Phone: [facility] 250 DO Work Phone: 10-09-2021 13:20-0400 Body weight 93.44 kg Anupam Pereira Work Phone: [facility] 250 DO Work Phone: 10-09-2021 13:20-0400 Diastolic blood pressure 89 mm[Hg] Anupam Pereira Work Phone: [facility] 250 DO Work Phone: 10-09-2021 13:20-0400 Heart rate 68 /min Anupam Pereira Work Phone: [facility] 250 DO Work Phone: 10-09-2021 13:20-0400 Systolic blood pressure 144 mm[Hg] Anupam Pereira Work Phone: [facility] 250 DO Work Phone: 10-09-2021 13:20-0400 12 1 Anupam Pereira Work Phone: [facility] 250 DO Work Phone: Comment on above: PHQ-9 TS 08-09-2021 15:58-0400 Body height 152.4 cm Anupam Pereira Work Phone: [facility] 250 DO Work Phone: 08-09-2021 15:58-0400 Body mass index (BMI) [Ratio] 41.21 kg/m2 Anupam Pereira Work Phone: [facility] 250 DO Work Phone: 08-09-2021 15:58-0400 Body surface area Derived from formula 1.91 m2 Anupam Pereira Work Phone: [facility] 250 DO Work Phone: 08-09-2021 15:58-0400 Body temperature 97 [degF] Anupam Pereira Work Phone: [facility] 250 DO Work Phone: 08-09-2021 15:58-0400 Body weight 95.71 kg Anupam Pereira Work Phone: [facility] 250 DO Work Phone: 08-09-2021 15:58-0400 Diastolic blood pressure 78 mm[Hg] Anupam Pereira Work Phone: [facility] 250 DO Work Phone: 08-09-2021 15:58-0400 Heart rate 82 /min Anupam Pereira Work Phone: [facility] 250 DO Work Phone: 08-09-2021 15:58-0400 Systolic blood pressure 132 mm[Hg] Anupam Pereira Work Phone: [facility] 250 DO Work Phone: Encounters Encounter Date Encounter Type Care Provider Facility Start: 06-03-2024 End: 06-03-2024 Patient encounter procedure Anupam Pereira MD Work Phone: [facility] Start: 06-03-2024 End: 06-03-2024 ambulatory Anupam Pereira MD Work Phone: [facility] Work Phone: Start: 05-31-2024 End: 05-31-2024 ambulatory [facility] Work Phone: Start: 05-31-2024 End: 05-31-2024 Patient encounter procedure [facility] Work Phone: Start: 05-20-2024 End: 05-20-2024 [facility] Start: 05-20-2024 Non-patient / Non-visit Anupam Pereira MD Work Phone: [facility] Work Phone: Start: 03-03-2024 Non-patient / Non-visit [facility] Work Phone: Start: 03-03-2024 End: 03-03-2024 ambulatory Anupam Pereira Facility:[facility] Start: 03-03-2024 Non-patient / Non-visit [facility] Start: 03-02-2024 End: 03-02-2024 ambulatory [facility] Work Phone: Start: 03-02-2024 End: 03-02-2024 Patient encounter procedure [facility] Work Phone: Start: 03-01-2024 End: 03-01-2024 Subsequent hospital visit by physician [facility] Comment on above: ICD (implantable car dioverter-defibrillator) in place Start: 03-01-2024 End: 03-01-2024 ambulatory [facility] Start: 12-22-2023 End: 12-22-2023 ambulatory [facility] Work Phone: Start: 12-22-2023 End: 12-22-2023 Patient encounter procedure [facility] Work Phone: Start: 12-02-2023 End: 12-02-2023 Patient encounter procedure MD Anupam Pereira Work Phone: [facility] Start: 12-02-2023 End: 12-02-2023 ambulatory MD Anupam Pereira Work Phone: [facility] Work Phone: Start: 12-02-2023 Non-patient / Non-visit [facility] Start: 11-18-2023 End: 11-18-2023 Office outpatient visit 25 minutes Lupe Boswell MD Work Phone: [facility] Comment on above: Cardiomyopathy, unsp ecified type (Multi); Chronic systolic congestive heart failure (Multi); ICD (implantable cardioverter-defibrillator) in place; Obstructive sleep apnea syndrome in adult; Fatigue, unspecified type; Never smoked cigarettes; Class 2 obesity without serious comorbidity with body mass index (BMI) of 37.0 to 37.9 in adult, unspecified obesity type Start: 11-18-2023 End: 11-18-2023 ambulatory LUPE Denney [facility] Amb[facility] Start: 08-29-2023 End: 08-30-2023 ambulatory ANUPAM PEREIRA [facility] Start: 08-29-2023 End: 08-29-2023 Office outpatient visit 25 minutes Daphne Mayes MD Work Phone: [facility] Comment on above: ICD (implantable car [...] treatment options Start: 08-29-2023 End: 08-29-2023 ambulatory DAPHNE MAYES [facility] Ambulatory Start: 05-28-2023 Office outpatient vi sit 15 minutes Anupam Pereira [facility] Start: 05-28-2023 End: 05-28-2023 ambulatory MD Anupam Pereira Work Phone: [employer] Other Start: 05-28-2023 End: 05-28-2023 Patient encounter procedure MD Anupam Pereira Work Phone: [facility] Start: 05-20-2023 End: 05-20-2023 ambulatory Anupam Pereira Other [employer] Other Start: 05-20-2023 Telephone encounter Anupam Pereira [facility] Start: 05-12-2023 End: 05-12-2023 Office outpatient visit 25 minutes Lupe Boswell MD Work Phone: [facility] Comment on above: Cardiomyopathy, unsp ecified type (CMS/HCC) (Primary Dx); ICD (implantable cardioverter-defibrillator) in place; Obstructive sleep apnea syndrome in adult; Class 2 obesity without serious comorbidity with body mass index (BMI) of 37.0 to 37.9 in adult, unspecified obesity type Start: 05-12-2023 End: 05-12-2023 ambulatory LUPE Denney [facility] Ambulatory Start: 05-08-2023 End: 05-08-2023 Patient encounter procedure MD Anupam Pereira Work Phone: [facility] Work Phone: Start: 02-25-2023 End: 02-25-2023 Office outpatient visit 25 minutes Maurizio Jorgensen APRN-VICE PRESIDENT [employer] Work Phone: [facility] Comment on above: ICD (implantable car dioverter-defibrillator) in place (Primary Dx); Morbid obesity (CMS/HCC); Chronic systolic congestive heart failure (CMS/HCC); Cardiomyopathy, unspecified type (CMS/HCC); Dyspnea on exertion; Obstructive sleep apnea syndrome in adult; Other fatigue Start: 01-09-2023 End: 01-09-2023 ambulatory Anupam Pereira Other [employer] Other Start: 01-09-2023 Office outpatient vi sit 15 minutes Anupam Pereira [facility] Start: 12-31-2022 End: 12-31-2022 ambulatory Anupam Pereira Other [employer] Other Start: 12-31-2022 Office outpatient vi sit 15 minutes Anupam Pereira [facility] Start: 12-24-2022 End: 12-24-2022 ambulatory Anupam Pereira Other [employer] Other Start: 12-24-2022 Office outpatient vi sit 15 minutes Anupam Pereira [facility] Start: 12-20-2022 End: 12-20-2022 ambulatory Anupam Pereira Other [facility] Other Start: 12-20-2022 Telephone encounter Anupam Pereira [facility] Start: 12-16-2022 End: 12-16-2022 ambulatory Anupam Pereira Other [facility] Other Start: 12-16-2022 Telephone encounter Anupam Pereira [facility] Start: 11-28-2022 End: 11-28-2022 ambulatory MD Anupam Pereira Work Phone: [facility] Work Phone: Start: 11-28-2022 End: 11-28-2022 Patient encounter procedure MD Anupam Pereira Work Phone: [facility] Start: 11-22-[address] Lupe Boswell Facility:[id number] Start: 10-09-[address] Lupe Boswell Facility:[id number] Start: 10-09-2022 Office outpatient vi sit 25 minutes Anupam Pereira Work Phone: [facility] 250 DO Work Phone: Start: 08-28-[address] Anupam Pereira Facility:[id number] Start: 08-28-2022 End: 08-28-2022 ambulatory MD Anupam Pereira Work Phone: [facility] Work Phone: Start: 08-28-2022 End: 08-28-2022 Patient encounter procedure MD Anupam Pereira Work Phone: [facility] Start: 08-22-[address] Lupe Boswell Facility:[id number] Start: 08-15-2022 End: 08-16-2022 ambulatory YOSHI OLVERAMIPATHY . Facility:H1 Start: 07-17-[address] Lupe Boswell Facility:[id number] Start: 07-16-2022 End: 07-16-[address] ANUPAM PEREIRA Facility:H1 Start: 07-11-2022 Encounter for preprocedural cardiovascular examination DR JANICE IRVING . [facility] Start: 07-09-2022 End: 07-10-[address] ANUPAM PEREIRA Facility:H1 Start: 07-09-2022 End: 07-10-2022 Encounter for preprocedural cardiovascular examination DR ANUPAM PEREIRA Facility:H1 Start: 06-20-2022 End: 06-21-[address] ANUPAM PEREIRA Facility:H1 Start: 06-04-2022 End: 06-04-[address] ANUPAM PEREIRA Facility:H1 Start: 05-23-2022 End: 05-24-[address] ANUPAM PEREIRA [facility] Other Start: 05-23-2022 Telephone encounter Anupam Pereira [facility] Start: 05-21-2022 End: 05-22-[address] ANUPAM PEREIRA [facility] Other Start: 05-21-2022 Office outpatient vi sit 15 minutes Anupam Pereira [facility] Start: 05-17-2022 End: 05-17-2022 ambulatory MD Anupam Pereira Work Phone: [facility] Work Phone: Start: 05-17-2022 End: 05-17-2022 Patient encounter procedure MD Anupam Pereira Work Phone: [facility] Start: 05-07-2022 End: 05-07-[address] ANUPAM PEREIRA Facility:H1 Start: 04-23-2022 End: 04-24-[address] ANUPAM PEREIRA Facility:H1 Start: 04-17-2022 Office outpatient vi sit 25 minutes Anupam Pereira Work Phone: [facility] 250 DO Work Phone: Start: 04-17-[address] Lupe Boswell Facility:[id number] Start: 04-09-2022 End: 04-10-[address] ANUPAM PEREIRA Facility:H1 Start: 02-12-[address] Anupam Pereira Facility:[id number] Start: 02-12-2022 End: 02-12-2022 ambulatory MD Anupam Pereira Work Phone: [facility] Work Phone: Start: 02-12-2022 End: 02-12-2022 Patient encounter procedure MD Anupam Pereira Work Phone: [facility] Start: 02-04-2022 End: 02-05-[address] ANUPAM PEREIRA Facility:H1 Start: 02-01-[address] Anupam Pereira Facility: Start: 11-07-2021 End: 11-07-2021 Patient encounter procedure MD Anupam Pereira Work Phone: [facility] Start: 11-06-2021 End: 11-07-[address] LUPE BOSWELL Facility:H1 Start: 10-09-2021 Office outpatient vi sit 25 minutes Anupam Pereira Work Phone: [facility] 250 DO Work Phone: Start: 09-07-2021 End: 09-08-[address] ANUPAM PEREIRA Facility:H1 Start: 08-30-2021 Chart Update Anupam Pereira Work Phone: [facility] 320 DO Work Phone: Start: 08-10-2021 Rx Renewal Anupam Pereira Work Phone: [facility] 250 DO Work Phone: Start: 08-09-2021 Postop follow up vis it related to original px Anupam Pereira Work Phone: [facility] 250 DO Work Phone: Start: 07-31-2021 End: 07-31-2021 Patient encounter procedure MD Anupam Pereira Work Phone: [facility] COVID Testing Start: 07-23-2021 AUDIT Anupam Pereira Work Phone: [facility] 3 DO Work Phone: Start: 07-18-2021 End: 07-18-2021 Patient encounter procedure MD Anupam Pereira Work Phone: [facility] Swab Start: 07-11-2021 Message Anupam Pereira Work Phone: [facility] 320 DO Work Phone: Start: 07-04-2021 End: 07-04-2021 Patient encounter procedure MD Anupam Pereira Work Phone: [facility] Start: 06-29-2021 AUDIT Anupam Pereira Work Phone: [facility] 320 DO Work Phone: Start: 04-03-2021 Rx Renewal Anupam Pereira Work Phone: [facility] 320 DO Work Phone: Start: 07-01-2017 End: 07-02-2017 Ambulatory [facility] Facility:[facility] Patient encounter status Anupam Pereira Work Phone: [facility] 320 DO Work Phone: End: 10-09-2021 Patient encounter status Anupam Pereira Work Phone: [facility] 250 DO Work Phone: Procedures Date Procedure Procedure Detail Performing Clinician Start: 03-01-2024 Prgrmg eval implanta ble in person multi lead dfb Daphne Mayes MD Work Phone: Start: 08-29-2023 ECG 12-LEAD LUPE CANO AHIM Start: 08-29-2023 FOLLOW UP IN CARDIOLOGY LUPE BOSWELL Start: 08-29-2023 Basic metabolic 2000 panel - Serum or Plasma ANUPAM PEREIRA Start: 08-29-2023 Ecg routine ecg w/le ast 12 lds w/i&r Daphne Mayes MD Work Phone: Start: 07-31-2021 SARS Antigen (LFIA) MD Anupam Pereira Work Phone: Start: 09-01-2018 Screening mammography Олег greer Pereira Other Insertion of pulse generator of implantable cardioverter defibrillator Anupam Pereira Work Phone: Ligation of fallopian tube Олег Pereira Work Phone: Total colonoscopy Anupam pardo Work Phone: Comment on above: [id number]; Plan of Treatment Date Care Activity Detail Author Start: 12-24-2033 DTaP/Tdap/Td Vaccine s (2 - Td or Tdap) DTaP/Tdap/Td Vaccines (2 - Td or Tdap) [facility] Start: 08-28-2024 Creatinine measurement Creatinine Le lee ann [facility] Start: 08-28-2024 Potassium measurement Potassium Leve l [facility] Start: 06-10-2024 End: 06-10-2024 Patient encounter procedure 06/10/2024 10:30 AM EST Office Visit [facility] [address] [facility] [address] [place] [address] Lupe Boswell MD [address] [facility] [address] [place] [address] [facility] Start: 05-20-2024 End: 11-17-2024 Basic metabolic 2000 panel - Serum or Plasma Basic Metabolic Panel Lab Routine Cardiomyopathy, unspecified type (Multi) Chronic systolic congestive heart failure (Multi) Expected: 05/20/2024 (Approximate), Expires: 11/17/2024 [facility] Service Area Work Phone: Comment on above: Expected: 05/20/2024 (Approximate), Expires: 11/17/2024 Start: 04-06-2024 End: 04-06-2024 Patient encounter procedure 04/06/2024 11:00 AM EST Office Visit [facility] [address] [place] [address] Daphne Mayes MD [address] [facility] Medical [address], [address] [place] [address] [facility] Start: 02-28-2024 End: 08-28-2024 Cardiac Device Check - In Clinic Cardiac Device Check - In Clinic Implantable Cardiac Device Routine ICD (implantable cardioverter-defibrilla tor) in place Expected: 02/28/2024 (Approximate), Expires: 08/28/2024 [facility] Service Area Work Phone: Comment on above: Expected: 02/28/2024 (Approximate), Expires: 08/28/2024 Start: 02-20-2024 End: 02-20-2024 Patient encounter procedure [facility] Start: 01-04-2024 COVID-19 Vaccine () COVID-[address] () [facility] Start: 01-04-2024 Influenza vaccination [facility] Start: 11-23-2023 Echocardiography Echocardiogram [facility] Start: 11-18-2023 End: 11-18-2023 Patient encounter procedure 11/18/2023 10:40 AM EDT Office Visit [facility] [address] [facility] [address] [place] [address] Lupe Boswell MD [address] [facility] [address], [address] [place] [address] [facility] Start: 08-29-2023 End: 08-29-2023 Patient encounter procedure 08/29/2023 10:20 AM EDT Office Visit [facility] [address] [facility] [address] [place] [address] Daphne Mayes MD [address] [facility] Medical Office [address], [address] [place] [address] [facility] Start: 12-14-2023 FUV, Provider: Lupe Boswell, Status: Pen, Time: 11:00 AM FUV, Provider: Lupe Boswell, Status: Pen, Time: 11:00 AM [facility] 250 DO Work Phone: Start: 04-17-2023 End: 04-17-2023 Patient encounter procedure 04/17/2023 11:00 AM EST Office Visit [facility] [address] [facility] [address] [place] [address] Lupe Boswell MD [address] [facility] [address], [address] [place] [address] [facility] Start: 03-11-2023 End: 02-26-2024 Basic metabolic 2000 panel - Serum or Plasma Basic metabolic panel Lab Routine Chronic systolic congestive heart failure (CMS/HCC) Expected: 03/11/2023 (Approximate), Expires: 02/26/2024 [facility] Service Area Work Phone: Comment on above: Expected: 03/11/2023 (Approximate), Expires: 02/26/2024 Start: 01-31-2023 FUV, Provider: Daphne Mayes, Status: Pen, Time: 2:00 PM FUV, Provider: Daphne Mayes, Status: Pen, Time: 2:00 PM [facility] 250 DO Work Phone: Start: 01-31-2023 Patient encounter procedure FUVPACEMKR, Provider: [id number], Status: Pen, Time: 1:00 PM [facility] 250 DO Work Phone: Start: 01-03-2023 COVID-19 Vaccine ( season) COVID-19 Vaccine ( season) [facility] Start: 01-03-2023 Influenza vaccination Influenza Vacc ine (#1) [facility] Start: 11-22-2022 ECHO, Provider: [facility] ,[id number], Status: Pen, Time: 10:45 AM ECHO, Provider: KENDY [facility] 01,[id number], Status: Pen, Time: 10:[address] [facility] 250 DO Work Phone: Start: 10-09-2022 FUV, Provider: Lupe Boswell, Status: Pen, Time: 10:40 AM FUV, Provider: Lupe Boswell, Status: Pen, Time: 10:[address] [facility] 250 DO Work Phone: Start: 08-02-2022 Creatinine measurement Creatinine Lucinda nance [facility] Start: 08-02-2022 Potassium measurement Potassium Francesca l [facility] Start: 07-17-2022 ECHO, Provider: [facility] 01,[id number], Status: Pen, Time: 9:45 AM ECHO, Provider: KENDY [facility] 01,[id number], Status: Pen, Time: 9:45 AM [facility] Work Phone: Start: 05-29-2022 ECHO, Provider: [facility] 01,[id number], Status: Pen, Time: 2:30 PM ECHO, Provider: K[facility] 01,[id number], Status: Pen, Time: 2:[address] [facility] 250 DO Work Phone: Start: 04-17-2022 FUV, Provider: Lupe Boswell, Status: Pen, Time: 11:10 AM FUV, Provider: Lupe Boswell, Status: Pen, Time: 11:[address] [facility] 250 DO Work Phone: Start: 02-01-2022 FUV, Provider: Daphne Mayes, Status: Pen, Time: 3:20 PM FUV, Provider: Daphne Mayes, Status: Pen, Time: 3:[address] [facility] 250 DO Work Phone: Start: 02-01-2022 Patient encounter procedure MORE, Provider: [facility],DAVIAN, Status: Pen, Time: 2:20 PM [facility] Work Phone: Start: 11-20-2021 NURSEVST, Provider: PRABHJOT WALDRON [employer] 1,[id number], Status: Pen, Time: 2:30 PM NURSEVST, Provider: PRABHJOT WALDRON [employer] 1,[id number], Status: Pen, Time: 2:30 PM -[facility] 250 DO Work Phone: Start: 11-20-2021 ECHO, Provider: [facility] 01,[id number], Status: Pen, Time: 1:30 PM ECHO, Provider: KENDY [facility] 01,[id number], Status: Pen, Time: 1:30 PM -[facility] 250 DO Work Phone: Start: 10-09-2021 FUV, Provider: Lupe Boswell, Status: Pen, Time: 1:30 PM FUV, Provider: Lupe Boswell, Status: Pen, Time: 1:[address] [facility] 320 DO Work Phone: Start: 08-28-2021 FUV, Provider: Daphne Mayes, Status: Pen, Time: 2:20 PM FUV, Provider: Daphne Mayes, Status: Pen, Time: 2:[address] [facility] 320 DO Work Phone: Start: 08-28-2021 Patient encounter procedure FUVPACEMKR, Provider: [facility],EMCPACEMKR, Status: Pen, Time: 1:[address] [facility] 320 DO Work Phone: Start: 08-02-2021 ICD CHANGE, Provider : [facility] 4,[id number], Status: Pen, Time: 12:30 PM ICD CHANGE, Provider: [facility] 4,[id number], Status: Pen, Time: 12:30 PM -[facility] [facility] Work Phone: Start: 08-02-2021 [facility], Provider: Daphne Mayes, Status: Pen, Time: 11:00 AM [facility], Provider: Daphne Mayes, Status: Pen, Time: 11:00 AM -[facility] 3 DO Work Phone: Start: 07-19-2021 ICD CHANGE, Provider : [facility],[id number], Status: Pen, Time: 2:00 PM ICD CHANGE, Provider: [facility],[id number], Status: Pen, Time: 2:00 PM -[facility] 320 DO Work Phone: Start: 07-19-2021 [facility], Provider: Daphne Mayes, Status: Pen, Time: 11:00 AM [facility], Provider: Daphne Mayes, Status: Pen, Time: 11:00 AM -[facility] 320 DO Work Phone: Start: 07-17-2021 [facility], Provider: Daphne Mayes, Status: Pen, Time: 8:40 AM [facility], Provider: Daphne Mayes, Status: Pen, Time: 8:40 AM -[facility] DO Work Phone: Start: 07-17-2021 Patient encounter procedure [id number], Provider: [facility], Status: Pen, Time: 7:[address] [facility] DO Work Phone: Start: 2014 RSV High Risk: (Elde rly (60+) or Population) (1 - Risk 60-74 years 1-dose series) RSV High Risk: (Elderly (60+) or Population) (1 - Risk 60-74 years 1-dose series) [facility] Start: 2014 RSV patient s and/or patients aged 60+ years (1 - 1-dose 60+ series) RSV patients and/or patients aged 60+ years (1 - 1-dose 60+ series) [facility] Start: 2004 Zoster Vaccines (1 of 2) Zoste r Vaccines (1 of 2) [facility] Start: 1994 Screening for malign ant neoplasm of breast Mammogram [facility] Start: 1976 DTaP/Tdap/Td Vaccine s (1 - Tdap) DTaP/Tdap/Td Vaccines (1 - Tdap) [facility] Start: 1972 Diabetes mellitus screening Diabetes Screening [facility] Start: 1972 Hepatitis C screening Hepatitis C Sc reening [facility] Start: 1960 Pneumococcal Vaccine : 65+ Years (1 - PCV) Pneumococcal Vaccine: 65+ Years (1 - PCV) [facility] Start: 1960 Pneumococcal Vaccine : 65+ Years (1 of 2 - PCV) Pneumococcal Vaccine: 65+ Years (1 of 2 - PCV) [facility] Start: 04-03-1955 COVID-19 Vaccine (#1) COVID-19 Vacci ne (#1) [facility] Start: 1954 Lipid panel Lipid Panel [facility] Start: 1954 Medicare Annual Well ness Visit Medicare Annual Wellness Visit (AWV) [facility] Start: 1954 Screening for malign ant neoplasm of colon [facility] Start: 1954 Screening for osteoporosis Bone Dens ity Scan [facility] End: 02-28-2024 Cardiac Device Check - Remote Cardiac Device Check - Remote Implantable Cardiac Device Routine ICD (implantable cardioverter-defibrilla tor) in place 52 Occurrences starting 08/29/2023 until 02/28/2024 [facility] Work Phone: Comment on above: 52 Occurrences start ing 08/29/2023 until 02/28/2024 [facility] Payers Date Payer Category Payer Medicare [id number] 2023 Unknown [id number] 2023 Self-pay [id number] 2022 Dual Eligibility Medicare/Medicaid Organization [facility] DUAL COMPLETE [id number] 2022 Private Health Insurance [employer] DUAL COMPLETE [employer] DUAL COMPLETE [id number] 2022-Present [address] [address] [place] [address] [id number] 2017 Medicare [id number] 2017 Medicaid [id number] 2017 Private Health Insurance [id number] 2017 Private Health Insurance [id number] [id number] 1959 Medicaid [id number] 1954 Unknown [id number] 2.840.1.280041.3.579.2 .59 1954 Unknown [id number] .840.1.007116.3.579.2 .59 1954 Unknown [id number] 2.840.1.047237.3.579.2 .59 1954 Unknown [id number] 2.16840.1.374668.3.579.2 .59 1954 Unknown [id number] 2.16840.1.275323.3.579.2 .59 1954 Unknown [id number] 2.16840.1.020101.3.579.2 .593 1954 Unknown [id number] 2.16.840.1.315072.3.579.2 .593 1954 Unknown [id number] 2.16.840.1.880176.3.579.2 .593 1954 Unknown [id number] 2.16.840.1.313231.3.579.2 .593 1954 Unknown [id number] 2.16.840.1.961583.3.579.2 .593 1954 Unknown [id number] 2.16.840.1.597201.3.579.2 .593 1954 Unknown [id number] 2.16.840.1.907530.3.579.2 .593 1954 Unknown [id number] 2.840.1.363887.3.579.2 .593 1954 Unknown [id number] 2.16840.1.284044.3.579.2 .1068 1954 Unknown [id number] 2.16840.1.373066.3.579.2 .1068 1954 Unknown [id number] 2.16840.1.883749.3.579.2 .1068 1954 Unknown [id number] 2.840.1.148159.3.579.2 .356 1954 Unknown [id number] 2.16840.1.441298.3.579.2 .356 1954 Unknown [id number] 2.16840.1.253170.3.579.2 .356 1954 Unknown [id number] 2.16.840.1.100290.3.579.2 .356 1954 Unknown [id number] 2.16.840.1.595616.3.579.2 .356 1954 Unknown [id number] 2.16840.1.679823.3.579.2 .356 1954 Unknown [id number] 2.16.840.1.089414.3.579.2 .1245 1954 Unknown [id number] 2.16.840.1.632850.3.579.2 .1244 1954 Unknown [id number] 2.840.1.093670.3.579.2 .124 1954 Unknown [id number] 2.16.840.1.453745.3.579.2 .124 1954 Unknown [id number] 2.840.1.483798.3.579.2 .1246 1954 Unknown [id number] 2.840.1.820304.3.579.2 .1286 Medicare [id number] Medicare Medicare [id number] Private Health Insurance [id number] Unknown Unknown [id number] 2.840.1.947695.3.579.2 .531 Unknown [id number] 2.840.1.300869.3.579.2 .531 Unknown [id number] 2.840.1.069963.3.579.2 .531 Unknown [id number] 2.0.1.469773.3.579.2 .531 Social History Date Type Detail Facility Start: 10-09-2021 End: 11-18-2023 Caffeine use Caffeine use [facility] Comment on above: 1 1/2 daily (Pop); Start: 1955 Sex Assigned At Female [facility] Start: 10-09-2021 End: 11-18-2023 Sex Assigned At [facility] Start: 02-25-2023 End: 05-31-2024 Tobacco smoking status NHIS Never smoked tobacco [facility] Work Phone: Start: 02-25-2023 Tobacco use and exposure Smokeless tobacco non-user [facility] Work Phone: Start: 1955 [facility]: Start: 02-15-2023 End: 03-01-2024 Exposure to SARS-CoV-2 (event) Not sure [facility] Start: 08-29-2023 End: 11-18-2023 Alcoholic beverage intake Lifetime non-drinker (finding) [facility] Work Phone: Start: 05-31-2024 End: 06-04-2024 Sex Female (finding) [facility] Functional Status Date Assessment Result Facility 10-09-2021 PHQ-9 [id number] Moderate (10-14) [facility] 250 DO Work Phone: Clinical Notes 08-02-2021 to 05-31-2024 Note Date & Type Note Facility 05-31-2024 Evaluation note Diagnosis Onset Date Resolution Depression acute May 31, 2024 11:18am Heart failure acute May 11:18am Impaired fasting glucose acute May 31, 2024 11:18am Obesity, Class II, BMI 35-39.9 acute May 31 11:18am Obstructive sleep apnea acute J anuary 2024 11:18am Osteoarthritis acute May 312024 11:18am [facility] Work Phone: 1(833) 287-434010-29-2024 Evaluation note* Diagnosis Onset Date Resolution Status Admit Date Depression acute March 02, 2024 10:47am [facility] Work Phone: 1(724) 700-555107-16-2024 History of Present illness Narrative* Lupe Boswell MD - 11/18/2023 10:40 AM EDT Subjective Nya Bell is a 68 y.o. female Chief Complaint Follow-up HPI Patient is in the office for follow-up for the problems noted below. Since her last visit several months ago she has had no admission to the hospital and no dyspnea palpitations but complains of fatigue. She is supposed to be seen by the sleep lab and has not followed up and encouragement provided to keep her appointments since she is not using CPAP machine. Examination is only remarkable for class II obesity. Assessment/recommendations: 1-previous history of nonischemic cardiopathy with ejection fraction now up to 65% by echocardiogram November 2022. Will continue Coreg and Entresto but will reduce her carvedilol down to 3.125 mg twice daily due to fatigue. 2-status post AICD, device is assessed by electrophysiology at [facility] 3-cardiac catheterization 8 years ago at [facility] was normal 4-sleep apnea supposed to be on CPAP machine, encouraged patient to follow-up with a sleep lab to adjust the device. 6-class II obesity, recommended low-calorie diet and more regular exercise. Review of Systems Respiratory: Positive for shortness of breath. All other systems reviewed and are negative. Vitals: 11/18/23 1043 BP: 106/64 BP Location: Left arm Patient Position: Sitting Pulse: 76 Weight: 87.1 kg (192 lb) Height: 1.524 m (5') Objective Physical Exam Constitutional: Appearance: Normal appearance. HENT: Nose: Nose normal. Neck: Vascular: No [...] Content: Thought content normal. Judgment: Judgment normal. Allergies Adhesive Current Medications Current Outpatient Medications: omeprazole (PriLOSEC) [address] capsule, Take 1 capsule (20 mg) by mouth once daily in the morning. Before Breakfast, Disp: , Rfl: sacubitriL-valsartan (Entresto) 49-51 mg tablet, Take 1 tablet by mouth 2 times a day., Disp: 180 tablet, Rfl: 3 sertraline (Zoloft) 50 mg tablet, Take 1 tablet (50 mg) by mouth 2 times a day., Disp: , Rfl: carvedilol (Coreg) 3.125 mg tablet, Take 1 tablet (3.125 mg) by mouth 2 times daily (morning and late afternoon)., Disp: 180 tablet, Rfl: 3 Assessment/Plan 1. Cardiomyopathy, unspecified type (Multi) Follow Up In Cardiology Basic Metabolic Panel carvedilol (Coreg) 3.125 mg tablet Basic Metabolic Panel 2. Chronic systolic congestive heart failure (Multi) Basic Metabolic Panel Follow Up In Cardiology carvedilol (Coreg) 3.125 mg tablet Basic Metabolic Panel 3. ICD (implantable cardioverter-defibrillator) in place 4. Obstructive sleep apnea syndrome in adult 5. Fatigue, unspecified type 6. Never smoked cigarettes 7. Class 2 obesity without serious comorbidity with body mass index (BMI) of 37.0 to 37.9 in adult,unspecified obesity type Scribe Attestation By signing my name below, Scarlet Nur LPN, Scribe attest that this documentation has been prepared under the direction and in the presence of Lupe Boswell MD. Provider Attestation - Scribe documentation All medical record entries made by the Scribe were at my direction and personally dictated by me. Ihave reviewed the chart and agree that the record accurately reflects my personal performance of the history, physical exam, discussion and plan. documented in this [facility] Work Phone: 1(694) 883-768007-16-2024 Instructions* Patient Instructions* Scarlet Loomis LPN - 11/18/2023 10:40 AM EDT Please bring all medicines, vitamins, and herbal supplements with you when you come to the office. Prescriptions will not be filled unless you are compliant with your follow up appointments or have a follow up appointment scheduled as per instruction of your physician. Refills should be requested at the time of your visit. BMI was above normal measurement. Current weight: 87.1 kg (192 lb) Weight change since last visit (-) denotes wt loss 0 lbs Weight loss needed to achieve BMI 25: 64.3 Lbs Weight loss needed to achieve BMI 30: 38.7 Lbs Provided instructions on dietary changes Provided instructions on exercise. Reduce Coreg Follow up 6 months with lab documented in this [facility] Work Phone: 1(862) 958-629004-26-2024 History of Present illness Narrative* Daphne Mayes MD - 08/29/2023 10:20 AM EDT Chief Complaint: Follow-up History Of Present Illness: [...] generator change for generator senescence in 2021. [employer] DTPA 2 QQ biventricular ICD. Performed device check in office. Normal device function. Adjusted LV output to +0.5 V above threshold. Chronic systolic heart failure. NYHA IIIc heart failure. Appropriate biventricular pacing. Increased Optivol recently may have been at the time of recovering from influenza and congestion. Reviewed meds. Continue meds. Refills. Valvular heart disease with mild MR cardiac 2019. Remote catheterization with normal coronaries in 2014 Obstructive sleep apnea. Discussed association of sleep apnea , weight, and arrhythmias Hypertension. Chronic. Stable. Reviewed medications Overweight Counseling greater than 50% of visit for discussion of heart failure device, follow-up, standard ofcare for monitoring and follow-up, remote monitoring, medications, what medications may need refills, indications for medications, treatment options, risk, benefits, and imponderables. All questions answered in detail. Patient and family appreciative of care Please excuse grammatical or dictation errors as software dictation application being used. [facility] Work Phone: 1(609) 648-949304-26-2024 Instructions* Patient Instructions* Anel Samano RN - 08/29/2023 10:20 AM [...] MD, FACC, FACP, FHRS documented in [facility]St[facility] Work Phone: 1([phone]) 829-694101-24-2024 Evaluation note* Encounter Date Diagnosis Assessment Notes Treatment Notes Treatment Clinical Notes May, Influenza A (ICD-10 - J10.1) resolved. discussed symptomatic care May, Acute bronchitis, unspecified organism (ICD-10 - J20.9) No further antibiotics or steroids indicated. Recommened conservative measures for help w laryngitis. 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 [employer] Other 01-08-2024 History of Present illness Narrative* Lupe Boswell MD - 05/12/2023 1:30 PM EST Gamaliel Bell is a 67 y.o. female Chief Complaint Follow-up HPI Patient is in the office for follow-up for the problems noted below. She was in [place] recently and had flu syndrome which left her with significant bronchitis that was noted during today's visit. Her lab data from [place] was reviewed, cardiac enzymes were normal other [...] AICD, device is assessed by electrophysiology at [facility] 3-cardiac catheterization 8 years ago at [facility] was normal 4-sleep apnea supposed to [...] , Rfl: ergocalciferol (Vitamin D-2) 50 MCG (1999) capsule capsule, Take 1 capsule (50 mcg) [...] Scribe Attestation By signing my name below, I, Africa Denney LPN , Scribe attest that this documentation has been prepared under the direction and in the presence of Lupe Boswell MD. documented in this encounterSt[facility] Work Phone: 1([phone]) 405-927501-08-2024 Instructions* Patient Instructions* Africa Noland LPN - [...] follow up per routine documented in this encounterSt[facility] Work Phone: 1([phone]) 536-654010-24-2023 History of Present illness Narrative* Maurizio Jorgensen APRN-VICE PRESIDENT [employer] - 02/25/2023 10:00 AM EDT CARDIOLOGY OFFICE VISIT CHIEF COMPLAINT Chief Complaint Patient presents with Device Check Routine check up HISTORY OF PRESENT ILLNESS HPI The patient is a 67-year-old female who is followed for nonischemic cardiomyopathy with a left ventricular ejection fraction improved to 60 to 65% per 2D echocardiogram dated November 22, 2022, [place] [employer] class II- III, stage C [...] per 2D echocardiogram dated November 22, 2022, [place] [employer] class III, stage C heart failure. 2. Upgrade to an AV biventricular ICD on August 02, 2021 (Medtronic cobalt XT HF Quad FORMULA MAKER-D). Initial implant on January 25, 2015. 3. Valvular heart disease consisting of mild MR per 2D echocardiogram dated November 22, 2022. 4. Left heart catheterization in 2014 revealing normal coronaries at [facility]. 5. Obstructive sleep apnea, noncompliant with [...] furosemide. 2. Obtain ICD checks per the [facility] device clinic as scheduled. Patient was instructed to obtain an in clinic device check at [facility] approximately 2 weeks prior to the office [...] to prepare this document. documented in this encounterSt[facility] Work Phone: 1([phone]) 557-961310-24-2023 Instructions* Patient Instructions* ISAI Mora - 02/25/2023 10:00 AM EDT When taking the lasix, increase dietary potassium intake (orange juice, bananas, skin on potatoes) documented in this encounterSt[facility] Work Phone: [phone]) 950-371409-07-2023 Evaluation note* Encounter Date Diagnosis Assessment Notes Treatment Notes Treatment Clinical Notes Jan, Bronchitis (ICD-10 - J40) Discussed diagnosis with patient. Patient to take antibiotic daily with food as prescribed. Finish entire course of antibiotic. Proair inhaler sent today for patient to use PRN cough/wheezing/short ness of breath. Font-mol-gocwmqn antipyretics as needed. Warning signs and symptoms reviewed with patient today. Patient to go immediately to the ER should she experience any of these. Patient to notify office should her symptoms persist and not improve. Patient verbalizes understanding and agrees to treatment plan. [facility] Other 08-29-2023 Evaluation note* Encounter Date Diagnosis Assessment Notes Treatment Notes Treatment Clinical Notes Dec, Bronchitis (ICD-10 - J40) Discussed diagnosis with patient. Finish entire course of antibiotic. Proair inhaler sent today for patient to use PRN cough/wheezing/short ness of breath. Tessalon Pearles ordered to take as needed for cough. Increase fluids and rest. Djdc-ano-ragnwrn antipyretics as needed. Warning signs and symptoms reviewed with patient today. Patient to go immediately to the ER should she experience any of these. Patient to notify office should her symptoms persist and not improve. Patient verbalizes understanding and agrees to treatment plan. [facility] Other 08-22-2023 Evaluation note* Encounter Date Diagnosis Assessment Notes Treatment Notes Treatment Clinical Notes Dec, Acute pain of right shoulder (ICD-10 - M25.511) Check xray. Add meds for pain relief and muscle relaxation. Will call pt w xray results. Dec, Chest congestion (ICD-10 - R09.89) Start w CXR and assess for pneumonia - will base treatment on CXR results later today. [facility] Other 02-16-2023 NoteCONSULTATION CONSULTATION DATE: 06/20/2022 HISTORY [...] be followed up in the office thereafter.[facility] [id number] NoteCONSULTATION CONSULTATION DATE: 05/23/2022 HISTORY OF PRESENT [...] be followed up in the clinic thereafter.[facility] [id number] Evaluation note* Encounter Date Diagnosis Assessment Notes Treatment Notes Treatment Clinical Notes May, Vitamin D deficiency (ICD-10 - E55.9) [facility] Other 01-17-2023 Evaluation note* Encounter Date Diagnosis [...] - I43) Reviewed notes from her specialist [facility] Other 12-06-2022 NoteCONSULTATION CONSULTATION DATE: 04/09/2022 CHIEF [...] was encouraged to follow up with the liberal arts teacher with regards to her pacemaker. The patient is looking to schedule herself with regards to a physical and blood work by Dr. Pereira. CC: Anupam Pereira M.D.[facility] [id number] NotePROCEDURE: XR FINGER MIN 2 VIEWS COMPARISON: None. HISTORY: Acquired deformity of right finger FINDINGS: BONES:Persistent flexion of the fourth finger. No acute fracture or dislocation SOFT TISSUES:Soft tissue swelling EFFUSION:None visible. OTHER: Negative. IMPRESSION: Soft tissue swelling, no acute fracture Electronically authenticated by: CECY CHRISTIAN Date: 2022-02-05 07:14[facility]03-31-2022 NoteElectrophysiology Procedure TestingPlease click on the link to view the study images (Normal)[facility] DO Work Phone: 1([phone]) 177-374603-31-2022 NoteElectrophysiology Procedure Testing Please click on the link to view the study images (Normal)[facility] [place] [facility] DO Work Phone: 1(114) 182-904103-31-2022 NoteElectrophysiology Procedure Testing Please click on the link to view the study images (Normal)[facility] [place] [place] 3 DO Work Phone: [phone]) 995-913403-31-2022 NoteElectrophysiology Procedure Testing Please click on the link to view the study images (Normal)[facility] [place] [facility] DO Work Phone: Chief complaint+Reason for visit Narrative* Chief Complaint headache, back pain, sore throat, ear pain Memory Concerns Reason for Visit COVID-19 [facility] Work Phone: Evaluation noteNo assessment information available [facility] Work Phone: Evaluation noteNo InformationNort [employer] Other Evaluation note* Diagnosis ICD (implantable cardioverter-defibrillator) in place- Primary Morbid obesity (CMS/HCC) Morbid obesity Chronic systolic congestive heart failure (CMS/HCC) Cardiomyopathy, unspecified type (CMS/HCC) Dyspnea on exertion Other dyspnea and respiratory abnormality Obstructive sleep apnea syndrome in adult Other fatigue documented in this encounter [facility] Work Phone: Evaluation note* Diagnosis ICD (implantable [...] discuss treatment options documented in this encounter [facility] Work Phone: Evaluation note* Diagnosis Cardiomyopathy, unspecified type (CMS/HCC)- Primary ICD (implantable cardioverter-defibrillator) in place Obstructive sleep apnea syndrome in adult Class 2 obesity without serious comorbidity with body mass index (BMI) of 37.0 to 37.9 in adult, unspecified obesity type documented in this encounter [facility] Work Phone: Evaluation note* Diagnosis ICD (implantable cardioverter-defibrillator) in place documented in this encounter [facility] Work Phone: Evaluation note* Diagnosis Onset Date Resolution Status COVID-19 [facility] Work Phone: Evaluation note* Diagnosis Cardiomyopathy, unspecified type (Multi) Chronic systolic congestive heart failure (Multi) ICD (implantable cardioverter-defibrillator) in place Obstructive sleep apnea syndrome in adult Fatigue, unspecified type Never smoked cigarettes Class 2 obesity without serious comorbidity with body mass index (BMI) of 37.0 to 37.9 in adult, unspecified obesity type documented in this encounter [facility] Work Phone: History general Narrative - Reported* [...] NEVER ABLATION 06/2016 Hospitalization History See Sx [facility] [facility] Other History general Narrative - Reported* Type [...] Hospitalization History See Sx Hx Hospitalization History [facility] 06/03/22 [employer] Other Reason for referral (narrative)* Consultation (Routine) - Authorized Specialty Diagnoses / Procedures Referred By Contac t Referred To Contact Cardiology Diagnoses ICD (implantable cardioverter-defibrillator ) in place Procedures Follow Up In Cardiology Maurizio Jorgensen, [employer]-VICE PRESIDENT [employer] [address] [facility], [address] [address] Daphne Mayes MD [address] [facility], [address] [address] Referral ID Status Reason Start Date Expiration Date V isits Requested Visits Authorized [id number] Authorized 02/25/2023 02/25/2024 1 1 Electronically signed by Maurizio Jorgensen [employer] BUILDER [employer]-[facility] at 02/25/2023 10:[address] [facility] Work Phone: Reason for referral (narrative)* Consultation (Routine) - Authorized Specialty Diagnoses / Procedures Referred By Contac t Referred To Contact Cardiology Diagnoses Cardiomyopathy, unspecified type (CMS/HCC) Procedures Follow Up In Cardiology Lupe Boswell MD [address] [facility] [address], [address] [address] Lupe Boswell MD [address] [facility] [address], [place] [address] [place] [id number] Referral ID Status Reason Start Date Expiration Date V isits Requested Visits Authorized [id number] Authorized 05/12/2023 05/11/2024 1 1 [facility] Work Phone: Reason for referral (narrative)* Consultation (Routine) - Authorized Specialty Diagnoses / Procedures Referred By Talha shea Referred To Contact Cardiology Diagnoses Chronic systolic congestive heart failure (Multi) Procedures Follow Up In Cardiology Lupe Boswell MD [address] [facility] [address], [address] [place] [address] Lupe Boswell MD [address] [facility] [address] [place] [address] Referral ID Status Reason Start Date Expiration Date V isits Requested Visits Authorized [id number] Authorized 11/18/2023 11/17/[address] [facility] Work Phone: Reason for visit Narrative* Imaging (Routine) - Pending Review Specialty Diagnoses / Procedures Referred By Talha shea Referred To Contact Cardiology Diagnoses ICD (implantable cardioverter-defibrillator) in place Procedures Cardiac Device Check - In Clinic Daphne Mayes MD [address] [facility] Medical Office [facility], [address] [place] [address] Phone: tel: fax: Referral ID Status Reason Start Date Expiration Date Visits Requested Visits Authorized [id number] Pending Review Perform Procedure 08/29/2023 08/28/[address] [facility] Work Phone: Summary Purpose Family History No [...] disease Unknown Diabetes mellitus Unknown mother Unknown Relationship Condition Age at Onset Recorded Date/T amparo Not Specified Cerebrovascular accident (CVA) Unknown father Unknown Heart disease Unknown Diabetes mellitus Unknown Myocardial infarction Unknown mother Unknown paternal grandfather Unknown paternal grandmother Unknown maternal grandfather Myocardial infarction Unknown Unknown brother Diabetes mellitus Unknown Advance Directives No Advanced Directives Records Found Advance Directive Response Recorded Date/ Time Advance Directives No March 11, 2019 3:45pm Advance Directive Response Recorded Date/ Time Advance Directives No March 11, 2019 2:45pm Chief Complaint and Reason for Visit Chief Complaint defib machine issues i80.22 z95.810 z00.00 z95.810-rapid Chief Complaint defib machine issues Chief Complaint cardiomyopathy Chief Complaint [facility] defib machine issues Chief Complaint defib machine issues headache, back pain, sore throat, ear pain Chief Complaint headache, back pain, sore throat, ear pain Memory Concerns cardiomyopathy CC Adult Risk Stratification Reason for Visit COVID-19 Chief Complaint Admit Date Memory Concerns March 02, 2024 1 0:47am cardiomyopathy March 03, 2024 1 0:19am CC Adult Risk Stratification February 12:02pm [facility] May 31 11:18am Reason for Visit Admit Date Depression March 02, 2024 1 0:47am Chief Complaint Admit Date [facility] May 31 11:18am defib machine issues June 03, 2024 2:28pm Reason for Visit Admit Date Depression May 31, 2024 1 1:18am Heart failure May 31, 2024 1 1:18am Impaired fasting glucose May 31 025 11:18am Obesity, Class II, BMI 35-39.9 May 062024 11:18am Obstructive sleep apnea May 31 11:18am Osteoarthritis May 31, 2024 1 1:18am Chief Complaint Patient here S/P gen change. Done by Dr. Mayes at [facility] on 07/19/2021. Dr. Gaudencio Mendoza MD in [...] AICD, device is assessed by electrophysiology at [facility], had recent battery change with no complications. * 3 cardiac catheterization 7 years ago at [facility] was normal * 4 extreme fatigue [...] AICD, device is assessed by electrophysiology at [facility], had recent battery change with no complications. * 3 cardiac catheterization 7 years ago at [facility] was normal * 4 extreme fatigue [...] AICD, device is assessed by electrophysiology at [facility], had recent battery change with no complications. * 3 cardiac catheterization 7 years ago at [facility] was normal * 4 extreme fatigue [...] AICD, device is assessed by electrophysiology at [facility] * 3 cardiac catheterization 7 years ago at [facility] was normal * 4 extreme fatigue [...] AICD, device is assessed by electrophysiology at [facility] * 3 cardiac catheterization 7 years ago at [facility] was normal * 4 extreme fatigue [...] scheduled. We will arrange for that at [facility]. Her weight is unchanged from previously and [...] AICD, device is assessed by electrophysiology at [facility] * 3 cardiac catheterization 7 years ago at [facility] was normal * 4 fatigue of unknown etiology. Improved with increased activities * 5 sleep apnea supposed to be on CPAP machine, encouraged patient to follow-up with a sleep lab to adjust the device. * 6 severe obesity, recommended low-calorie diet and more regular exercise. Reason for Referral Specialty Diagnoses / Procedures Referred By Talha shea Referred To Contact Cardiology Diagnoses ICD (implantable cardioverter-defibrillator) in place Procedures Cardiac Device Check - Remote Daphne Mayes MD [address] [facility], [address] [address] Referral ID Status Reason Start Date Expiration Date Visits Requested Visits Authorized [id number] Pending Review Perform Procedure 08/29/2023 08/28/2024 52 52 Specialty Diagnoses / Procedures Referred By Talha shea Referred To Contact Cardiology Diagnoses ICD (implantable cardioverter-defibrillator) in place Procedures Cardiac Device Check - In Clinic Daphne Mayes MD [address] [facility], [address] [address] Referral ID Status Reason Start Date Expiration Date Visits Requested Visits Authorized [id number] Pending Review Perform Procedure 08/29/2023 08/28/2024 52 52 Specialty Diagnoses / Procedures Referred By Contac t Referred To Contact Diagnoses ICD (implantable cardioverter-defibrillator) in place Procedures ECG 12 lead (Clinic Performed) Daphne Mayes MD [address] [facility] Medical Office [address]ld[address], [address] [place] [address] Referral ID Status Reason Start Date Expiration Date V isits Requested Visits Authorized [id number] Authorized 08/29/2023 08/28/2024 1 1 Additional Source Comments INFORMATION SOURCE (unrecogn ized section and content) DATE CREATED AUTHOR 10/24/2017 [facility] DATE CREATED AUTHOR AUTHOR'S ORGANIZ ATION 11/13/2018 [facility] DATE CREATED AUTHOR AUTHOR'S ORGANIZ ATION 08/02/2020 [facility] DATE CREATED AUTHOR AUTHOR'S ORGANIZ ATION 08/22/2022 [facility] DATE CREATED AUTHOR AUTHOR'S ORGANIZ ATION 10/14/2022 [facility] DATE CREATED AUTHOR AUTHOR'S ORGANIZ ATION 11/23/2022 [facility] DATE CREATED AUTHOR AUTHOR'S ORGANIZ ATION 12/10/2022 [facility] DATE CREATED AUTHOR AUTHOR'S ORGANIZ ATION 09/03/2023 [facility] DATE CREATED AUTHOR AUTHOR'S ORGANIZ ATION 03/03/2024 [facility] DATE CREATED AUTHOR AUTHOR'S ORGANIZ ATION 03/05/2024 [facility] DATE CREATED AUTHOR AUTHOR'S ORGANIZ ATION 05/23/2024 [facility] DATE CREATED AUTHOR AUTHOR'S ORGANIZ ATION 06/05/2024 [facility] Care Teams (unrecognized sec tion and content) Team Status: Active Member Role Status Dates Anupam Pereira MD Primary Care Provider Active Team Status: Active Member Role Status Dates Anupam Pereira MD Primary Care Provide r, Attending Provider Active Start: May 20, 2024 Team Status: Inactive Member Role Status Dates Anupam Pereira MD Primary Care Provider Active Start: May 31, 2024 End: May 31, 2024 Rosemarie eLa APRN Attending Provider Active Start: May 31, 2024 End: May 31, 2024 Team Status: Inactive Member Role Status Dates Anupam Pereira MD Primary Care Provider Active Start: June 03, 2024 End: June 03, 2024 Chasity Harper MD Attending Provider Active Start: June 03, 2024 End: June 03, 2024 Team Status: Inactive Member Role Status Dates Anupam Pereira MD Primary Care Provider Active Start: December 22, 2023 End: December 22, 2023 Chika Bee APRN Attending Provider Active Start: December 22, 2023 End: December 22, 2023 Team Status: Inactive Member Role Status Dates Anupam Pereira MD Primary Care Provide r, Attending Provider Active Start: March 02, 2024 End: March 02, 2024 Team Status: Active Member Role Status Dates Anupam Pereira MD Primary Care Provider Active Start: December 02, 2023 Gaudencio Mendoza MD Other Provider Active Start: December 02, 2023 Chasity Harper MD Attending Provider Active Start: December 02, 2023 Team Status: Inactive Member Role Status Dates Anupam Pereira MD Primary Care Provider Active Daphne Mayes MD Attending Provider Active Fur Mixer Operator Relationship Specialty Start Date End Date Anupam Pereira MD [address] [place] [address] PCP - General 09/30/19 Team Status: Inactive Member Role Status Dates Anupam Pereira MD Attending Provider Active St art: May 08, 2023 End: May 08, 2023 Team Status: Inactive Member Role Status Dates Anupam Pereira MD Primary Care Provider Active Start: May 28, 2023 End: May 28, 2023 Gaudencio Mendoza MD Attending Provider Active Start: May 28, 2023 End: May 28, 2023 Fur Mixer Operator Relationship Specialty Start Date End Date Anupam Pereira MD [address] [facility] [place] [address] PCP - General Family Medicine 04/16/23 Maurizio Jorgensen APRN-VICE PRESIDENT [employer] [address] [facility], [address] [place] [address] Nurse Practitioner Cardiology 03/07/23 Fur Mixer Operator Relationship Specialty Start Date End Date Anupam Pereira MD [address] [facility] [place] [address] PCP - General Family Medicine 04/16/23 Maurizio Jorgensen, TIRE BUILDER HEAVY SERVICE-VICE PRESIDENT [employer] [address] [facility], [facility] [address] [place] [address] Nurse Practitioner Cardiology 03/07/23 Team Status: Inactive Member Role Status Dates Anupam Pereira MD Primary Care Provider Active Start: December 02, 2023 End: December 02, 2023 Gaudencio Mendoza MD Attending Provider Active Start: December 02, 2023 End: December 02, 2023 Fur Mixer Operator Relationship Specialty Start Date End Date Anupam Pereira MD [facility] [place] [address] PCP - General Family Medicine 04/16/23 Maurizio Jorgensen, TIRE BUILDER HEAVY SERVICE-VICE PRESIDENT [employer] [address] [facility], [facility] [address] [place] [address] Nurse Practitioner Cardiology 03/07/23 Team Status: Active Member Role Status Dates Anupam Pereira MD Primary Care Provider Active Start: March 03, 2024 Lupe Boswell MD Other Provider Active Start: March 03, 2024 Chasity Harper MD Attending Provider Active Start: March 03, 2024 Team Status: Active Member Role Status Dates Anupam Pereira MD Primary Care Provide r, Attending Provider Active Start: March 03, 2024 Fur Mixer Operator Relationship Specialty Start Date End Date Anupam Pereira MD [address] [place] [address] PCP - General Family Medicine 04/16/23 Maurizio Jorgensen APRN-PAMELA [address] [facility], [address] [address] Nurse Practitioner Cardiology 03/07/23 Goals (unrecognized section and content) Goals may [...] month Specialty Diagnoses / Procedures Referred By Contac t Referred To Contact Cardiology Diagnoses ICD (implantable cardioverter-defibrillator ) in place Procedures Follow Up In Cardiology Maurizio Jorgensen, NATE-PAMELA [address] [address] Daphne Mayes MD [address] [facility], [address] [address] Referral ID Status Reason Start Date Expiration Date V isits Requested Visits Authorized [id number] Authorized 02/25/2023 02/25/2024 1 1 Reason Comments Follow-up 6 month Reason Comments Follow-up 6 months Specialty Diagnoses / Procedures Referred By Contac t Referred To Contact Cardiology Diagnoses Cardiomyopathy, unspecified type (Multi) Procedures Follow Up In Cardiology Lupe Boswell MD [address] [facility] [address], [address] [place] [id number] Lupe Boswell MD [address] [facility] [address], [address] [place] [address] Referral ID Status Reason Start Date Expiration Date V isits Requested Visits Authorized [id number] Authorized 05/12/2023 05/11/2024 1 1 FOR RECORDS PERTAINING TO PATIENTS WHO ARE [...] BE BASED ON THE PRIMARY CLINICAL RECORDS. [facility]. provides no warranty or guarantee of the accuracy or completeness of information in this document.
--- NOTE | 2024-06-06 18:34 | ED.FALL1 ---
HPI HPI - Fall General Chief Complaint: Fall Stated Complaint: FALL Time Seen by Provider: 06/06/24 18:22 Source: patient Mode of arrival: walk-in History of Present Illness HPI Narrative: Patient is a 68-year-old female presents to the ER with concerns of right wrist pain right elbow pain and head injury. Patient was at home around 2 PM when she tripped over a rug in the kitchen landing on her right side. She denies loss of consciousness. She has had increased pain and swelling to the right wrist since her fall she is left-hand dominant. She has a small abrasion to the right elbow. She has a history of a defibrillator and pacemaker but denies any chest pain or discomfort tenderness to the head is present. She denied neck pain but had neck pain on physical exam. Patient be placed in a collar pending CT imaging given bony tenderness of the cervical spine. Pt is requesting medication for pain for her right wrist. MD complaint: Reports fall Onset (ago): hour(s) (4) Fall from: Reports standing Place fall occurred: Reports home Loss of consciousness: none Prolonged down time: Reports no Symptoms prior to fall: Reports none Context: Reports tripped/slipped Related Data Home Medications ?Medication ?Instructions ?Recorded ?Confirmed carvedilol 3.125 mg tablet 3.125 mg PO BID 12/25/23 12/25/23 omeprazole 20 mg capsule,delayed 20 mg PO DAILY 12/25/23 12/25/23 release sacubitril 49 mg-valsartan 51 mg 1 tab PO BID 12/25/23 12/25/23 tablet (Entresto) sertraline 100 mg tablet 100 mg PO DAILY 12/25/23 12/25/23 Allergies Allergy/AdvReac Type Severity Reaction Status Date / Time adhesive tape AdvReac Mild Rash Verified 06/06/24 18:30 Opioid HPI Opioid Management Most Recent Pain and Opioid Data: Last Pain Scale 5 06/06/24 18:45 06/06/24 Last MAR Pain Assessment 06/06/24 18:53 Review of Systems ROS Constitutional Denies: fever or chills Eyes Denies: change in vision Ears, nose, mouth, and throat Denies: throat pain or difficulty swallowing Cardiovascular Denies: chest pain Respiratory Denies: shortness of breath Gastrointestinal Denies: abdominal pain, nausea or vomiting Musculoskeletal Reports: neck pain and extremity pain (right wrist and elbow); Denies: back pain Integumentary/Breast Denies: rash Neurological Denies: headache Psychiatric Denies: anxiety Endocrine Denies: excessive urination PFSH PFSH Social History Little interest or pleasure in doing things: not at all Feeling down, depressed, or hopeless: not at all Exam Narrative Exam Narrative: Nurses note and vital signs reviewed and patient is not hypoxic. General: The patient appears well and in no apparent distress. Patient is resting comfortably on cart. GCS = 15. Skin: Warm, dry, no pallor noted. Dime size abrasion to the right elbow nonbleeding covered with a Band-Aid Head: Normocephalic, tenderness occiput with minimal soft tissue swelling Neck: Supple, trachea mid-line, positive tenderness to the midline cervical spine noted, no lymphadenopathy. Placed in C-collar and rom not tested. the patient has no step-offs or crepitus noted Eyes: PERRLA, EOMI ENT: TM's clear, no hemotympanum detected, no blood in posterior oropharynx Cardiovascular: Regular Rate and Rhythm Respiratory: Patient is in no distress, no accessory muscle use, lungs are clear to auscultation, no wheezing, rales or rhonchi Chest Wall: no tenderness, no flail chest, contusion, abrasion, or signs of trauma. Back: Back has no evidence of trauma, including contusion, abrasion, swelling or ecchymosis. The patient had no evidence of step-offs or creptitace noted. No tenderness to palpation. Negative straight leg raise bilaterally. Musculoskeletal: normal ROM, no tenderness, no swelling. With the exception of abrasion and tenderness to the right lateral elbow and tenderness and swelling to the right wrist she is able to open and close her hand to make a fist there is swelling noted to the distal radius with no obvious deformity. Moves all four extremities in all modalities with 5/5 strength of right elbow and wrist, no evidence of wrist drop strength not tested with concern for possible fracture/sprain, pain in the bilateral hips painless passive range of motion of the hips and knees and ankle, [id number] in the left upper extremity is unremarkable GI: Normal bowel sounds, no tenderness to palpation, no masses appreciated. No rebound, guarding, or rigidity noted. Neurological: A&O x4, normal speech, normal coordination, normal motor, normal sensory. Psychiatric: Cooperative Constitutional Vital Signs, click to edit/add: Last Vital Signs Temp 98 F 06/06/24 18:24 Pulse 78 06/06/24 18:24 Resp 18 06/06/24 18:24 BP 158/93 H 06/06/24 18:24 Pulse Ox 96 06/06/24 18:24 O2 Del Method Room Air 06/06/24 18:24 Course Vital Signs Vital signs: Vital Signs Temperature 98 F 06/06/24 18:24 Pulse Rate 78 06/06/24 18:24 Respiratory Rate 18 06/06/24 18:24 Blood Pressure 158/93 H 06/06/24 18:24 Pulse Oximetry 96 06/06/24 18:24 Oxygen Delivery Method Room Air 06/06/24 18:24 Temperature 98 F 06/06/24 18:24 Pulse Rate 78 06/06/24 18:24 Respiratory Rate 18 06/06/24 18:24 Blood Pressure 158/93 H 06/06/24 18:24 Pulse Oximetry 96 06/06/24 18:24 Oxygen Delivery Method Room Air 06/06/24 18:24 MDM - Fall MDM Narrative Medical decision making narrative: Patient presents 4 hours after fall at home from standing height posterior head and neck pain noted placed in c-collar as a precaution given bony tenderness on exam ice pack applied to the right wrist and elbow alternating patient given [place] for pain with concerns for possible right wrist fracture. CT imaging of the head and neck will be performed Tetanus is up-to-date. Patient CT of the head and neck was reviewed, negative for fracture c-collar was removed, discussed imaging reads of the right wrist and right elbow personal review of the right wrist x-ray concerning for occult intra-articular distal radius fracture significant soft tissue swelling since her fall. Recommend splint no use of the right hand no lifting pulling or pushing until follow-up with orthopedics. Daughter concerned with patient's compliance agreeable to an appointment tomorrow for prompt evaluation. They are aware of the office location and time. Patient sent home with 2 Pittsburgh's for pain 1 tablet every 6 hours we discussed using Tylenol after this if tolerable. Verbal and written close head injury instructions discussed the patient is to followup with primary care physician in next 2-3 days or to return to the emergency department should any of the signs or symptoms worsen or new symptoms develop. Patient had questions answered. The patient agrees with the following Diagnosis and Treatment plan and the patient will be discharged home. Imaging Data CT scan - head: Radiologist's impression: ITS Impressions Elbow X-Ray 06/06/24 18:32 IMPRESSION: No acute fracture or dislocation. The joint spaces are intact and there is no apparent joint effusion. Electronically authenticated by: CARMEL FLYNN Date: 06/06/2024 19:[address] 06/06/24 18:32 IMPRESSION: There is no evidence of an intracranial hemorrhage, mass lesion or apparent acute infarct. The paranasal sinuses are clear. There is no apparent acute skull fracture. Electronically authenticated by: CARMEL FLYNN Date: 06/06/2024 19:39 Wrist X-Ray 06/06/24 18:32 IMPRESSION: No apparent acute fracture or dislocation. There is an atypical soft tissue calcification noted dorsal to the wrist, which was not apparent in the prior study. This may be due to a prior soft tissue injury with organized hematoma. Direct comparison with a more recent previous x-ray may be helpful. Electronically authenticated by: CARMEL FLYNN Date: 06/06/2024 19:34 Discharge Plan Discharge Chief Complaint: Fall Clinical Impression: Acute pain of right wrist, Closed head injury, Abrasion of elbow, right Patient Disposition: Home, Self-Care Time of Disposition Decision: 19:55 Condition: Good Mode of Transportation: Private Vehicle Prescriptions / Home Meds: No Action carvedilol 3.125 mg tablet 3.125 mg PO BID omeprazole 20 mg capsule,delayed release(DR/EC) 20 mg PO DAILY Entresto 49-51 mg tablet 1 tab PO BID sertraline 100 mg tablet 100 mg PO DAILY Print Language: [place] Instructions: Wrist Injury (ED), Head Injury (ED) Additional Instructions: Follow up ortho tomorrow Dr. Aden at 12:30pm. concern with wrist swelling, occult intra-articular distal radius fracture Elevate and ice tonight with splint. Referrals: Norma Tapia MD [Primary Care Provider] - 1 week Clint Aden MD [Physician] - 06/07/24 12:30 pm Procedures ED Ortho Splinting/Casting Orthopedic Splinting/Casting Injury #1: Additional comments: Splint Application: The patient was placed in a right volar wrist splint with Orthoglass splint material, 4 inch. The patient had 2 rolls of the web roll applied to the affected site. Patient then had the splint material placed with felt side against web roll and skin. The patient had the splint secured in place with nallely bandage. The patient was neurovascularly intact post application of the splint. abraison to right elbow dressed with band-aid. non bleeding.
[2024-06-06] MEDS: HYDROCODONE/ACET 5-325 MG TABLET 1 TAB PO (18:53)
[2024-06-06] MEDS: HYDROCODONE/ACET 5-325 MG TABLET 2 TAB PO (20:15)
[2024-06-06 21:25] VITALS: BP 155/98; PULSE 68; O2SAT 98
== END 2024-06-06 21:27 | disposition home or self-care (01) ==
PROVIDERS: Emergency Provider Emergency Medicine; PCP Family Medicine
DX: S09.8XXA Other specified injuries of head, initial encounter (principal); S50.311A Abrasion of right elbow, initial encounter; M25.531 Pain in right wrist; W01.0XXA Fall on same level from slipping, tripping and stumbling without subsequent striking against object, initial encounter; Z95.810 Presence of automatic (implantable) cardiac defibrillator
CPT/HCPCS: 29125; 70450; 72125; 73080; 73110; 99284

== ENCOUNTER 2024-06-14 09:09 | Outpatient (OUT) | payer MEDICARE, MEDICAID, SELFPAY ==
--- NOTE | 2024-06-14 | XR_ITS ---
[place] [id number] Patient Name: NYA REDMOND MRN: [id number] date: 1955 Sex: F Assigned Patient Location: Current Patient Location: Accession/Order Number: [id number] Exam Date: 06/14/2024 09:13 Report Date: 06/15/2024 10:12 At the request of: MAREN ARCHER Procedure: XR wrist RT min 3V PROCEDURE: XR wrist RT min 3V COMPARISON: 06/06/2024 HISTORY: RIGHT WRIST PAIN FINDINGS: BONES:No fracture, acute abnormality, or significant arthropathy. SOFT TISSUES:Dorsal subcutaneous soft tissue calcification EFFUSION:None visible. OTHER: Negative. XR/XR wrist RT min 3V IMPRESSION: Dorsal wrist soft tissue calcifications Electronically authenticated by: CECY CHRISTIAN Date: 06/15/2024 10:12
--- OUTSIDE RECORDS SUMMARY | 2024-06-14 09:13 | XMS_ITS | CCD ---
Author Organization [facility] Care Team Providers Care Hand Leather Trimmer Name Role Phone Hampole, Haile V Unavailable Unavailable Hampole, Haile V Unavailable Unavailable Hampole, Haile V Unavailable Unavailable ANUPAM PEREIRA~[id number] UNKNOWN Unavailable Unavailable Harsh Lange Unavailable Unavailable Harsh Lange Unavailable Unavailable Anupam Pereira Unavailable Unavailable Unavailable MD Anupam Pereira Primary Care Provider MD Daphne Mayes Attending Provider [phone] Unavailable Unavailable MD Anupam Pereira Primary [...] Unavailable RANDALL, DR ANUPAM Kurtz Attending Unavailable RANDALL, DR ANUPAM Kurtz Admitting Unavailable RANDALL, DR ANUPAM Kurtz Primary Care Unavailable MARIA FERNANDA ., DR JANICE Casas Admitting Unavailable MARIA FERNANDA ., DR JANICE Casas Consulting Unavailable MARIA FERNANDA ., DR JANICE Casas Attending Unavailable RANDALL, DR ANUPAM Kurtz Primary Care Unavailable MARIA FERNANDA ., DR JNAICE Casas Admitting Unavailable SCARLET SIM Consulting Unavailable MARIA FERNANDA ., DR JANICE Casas Attending Unavailable RANDALL, DR ANUPAM Kurtz Primary Care Unavailable IRVING ., DR JANICE Casas Admitting [...] ., DR JANICE Casas Admitting Unavailable NAVAS ., SCARLET Consulting Unavailable PEREIRA, DR ANUPAM Kurtz [...] Unavailable PEREIRA, DR ANUPAM Kurtz Admitting Unavailable [place], DR CECY Wade Consulting Unavailable ZIEBER, DR [...] Kurtz Admitting Unavailable ARRIAZA, ELAINA Consulting Unavailable MD Anupam Pereira Primary Care Provider MD Daphne Mayes Attending Provider Boswell, Dr. Lupe Carrion Attending Kathya vailable Pereira, Dr. Anupam Tam Primary Care Unav ailable Boswell, Dr. Lupe Carrion Attending Kathya vailable Pereira, Dr. Anupam Tam Primary Care Unav ailable Boswell, Dr. Lupe Carrion Attending Kathya vailable Pereira, Dr. Anupam Tam Primary Care Unav MD Anupam Marley Primary Care Provider MD Daphne Mayes Attending Provider [phone] Randall, Dr. Anupam Tam Primary Care Unav [...] Provider MD Gaudencio Mendoza Attending Provider Joslyn NET DEVELOPER WITH [employer]Maurizio Unavailable Anupam Pereira MD Primary Care Provider ANUPAM PEREIRA Primary Care Unavailable Anupam Pereira MD Primary Care Provider MD Anupam Pereira Primary Care Provider [phone] MD Gaudencio Mendoza Attending Provider LUPE BOSWELL Attending Unavailable MELLISSA PEREIRAIA E Primary Care Unavailable DAPHNE MAYES Attending [...] Unavail able Anupam Pereira Primary Care Unavailable Daphne Mayes MD Unavailable Allergies Allergy Classification Reported Allergen(s) Allergy Type Date of Onset Reaction(s) Facility (1 source) Adhesive Tape; Translations: [Tape] Propensity to adverse reactions (disorder) [facility] Repository (7 sources) Desonide Drug Allergy 06-12-19 16 Unknown, Rash [facility] Repository (1 source) Latex Drug allergy (disorder) [facility] Repository (1 source) patient allergy list reviewed by nurse or physicia Propensity to adverse reactions 08-31-19 15 Comment:Done [facility] Other (1 source) Allergies Reconciled Propensity to adverse reactions Unknown [facility] Other (10 sources) Adhesive agent; Translations: [ADHESIVE] Drug Intolerance 10-26-19 14 Unknown [facility] (2 sources) Adhesive Tape Drug allergy (disorder) 05-28-19 24 [facility] Repository Medications Current Medications Medication Drug [...] Start: 12-31-2022 take 1 capsule by mo [facility] every eight hours Benzonatate 200 MG 1 capsule Orally Three times a day for 10 day(s) Dec, Active carvedilol 3.125 mg oral tablet (20 sources) alpha-Adrenergic Roxy, beta-Adrenergic Roxy Start: 11-18-2023 End: 11-17-2024 take 1 tablet by mouth twice daily carvedilol (Coreg) 3.125 mg tablet Indications: Cardiomyopathy, unspecified type (Multi) , Chronic systolic congestive heart failure Take 1 tablet (3.125 mg) by mouth 2 times daily (morning and late afternoon). 180 tablet 3 11/18/2023 06/10/2024 Discontinued (Therapy completed) Start: 04-03-2021 End: 11-18-2023 take 1 tablet by mouth twice daily carvedilol (Coreg) 6.25 mg tablet Indications: ICD (implantable cardioverter-defibrillator) in place Take 1 tablet (6.25 mg) by mouth 2 times a day. 90 tablet 3 08/29/2023 11/18/2023 Discontinued (Dose adjustment) take 1 tablet by [facility] every twelve hours Carvedilol 3.125 MG 1 [...] hydrochloride 500 mg extended release oral tablet (2 sources) Biguanide Start: 05-31-2024 take 1 tablet by mouth twice daily metFORMIN XR 500 mg 24 hr tablet Take 1 tablet (500 mg) by mouth 2 times daily (morning and late afternoon). 05/31/2024 Active Start: 05-31-2024 take 1 tablet by yuliya th once daily, then take 1 tablet by mouth once daily Metformin 500 mg tablet extended release 24 hr Active 1000 MG PO Daily 60 May 31, 2024 12:00am Days 1 through 7 take 1 tab daily. methylPREDNISolone 4 mg oral tablet (3 sources) Corticosteroid Start: 05-08-2023 methylPREDNISo lone 4 MG as directed Orally for 6 days May, Active Start: 01-09-2023 methylPREDNISo lone 4 MG as directed Orally for 6 days Jan, Active nebivolol 2.5 mg oral tablet (1 source) Start: 06-10-2024 End: 06-10-2025 take 1 tablet by mouth once daily nebivolol (Bystolic) 2.5 mg tablet Indications: Chronic systolic congestive heart failure Take 1 tablet (2.5 mg) by mouth once daily. 90 tablet 3 06/10/2024 06/10/2025 Active omeprazole 20 mg delayed release oral [...] 21, 2023 11:00pm April 21, 2024 10:49am Omeprazole 20 MG TK 2 CS PO QD Oral for 90 Active predniSONE 20 mg oral tablet (6 sources) Start: 05-22-2023 take 2 tablets by mouth every twenty-four hours predniSONE 20 MG 2 tablets Orally Once a day for 5 days May, Active Start: 12-24-2022 take 2 tablets by [facility] every twenty-four hours predniSONE 20 MG 2 tablets Orally Once a day for 5 days Dec, Active sacubitril 49 mg / valsartan 51 mg oral tablet (20 sources) Angiotensin 2 Receptor Roxy Start: 10-09-2021 End: 06-10-2024 take 1 tablet by mouth twice daily Sacubitril-Valsartan (Entresto) 49-51 mg tablet Active 1 TAB PO Twice daily December 21, 2023 11:00pm take 1 tablet by mouth twice maura ly Entresto 24-26 MG TAKE 1 TABLET BY [...] 25, 2024 2:49pm take 1 tablet by [facility] twice daily sertraline (Zoloft) 50 mg tablet Take 1 tablet (50 mg) by mouth 2 times a day. Active take 2 tablets by [facility] once daily sertraline (Zoloft) 50 mg tablet [...] NEEDED FOR 30 DAYS for 20 Active valsartan 80 mg oral tablet (1 source) Angiotensin 2 Receptor Roxy Start: 06-10-2024 End: 06-10-2025 take 1 tablet by mouth once daily valsartan (Diovan) 80 mg tablet Indications: Chronic systolic congestive heart failure Take 1 tablet (80 mg) by mouth once daily. 90 tablet 3 06/10/2024 06/10/2025 Active Completed/Discontinued Medications Medication Drug Class(es) Dates [...] Start: 05-23-2022 take 1 capsule by mo [facility] every week Vitamin D (Ergocalciferol) 1.25 MG (39191 UT) 1 capsule Orally weekly for 90 [...] influenza virus with other respiratory manifestations Episodic Malaise and fatigue (20 sources) Fatigue; Translations: [Other malaise and fatigue] Onset: 09-07-2021 Episodic Mood disorders (20 sources) Depression; Translations: [...] Chronic Other nutritional; endocrine; and metabolic disorders (9 sources) Obese class II; Translations: [Body mass [...] metabolic disorders (2 sources) Body mass index 30+ - obesity; Translations: [Body mass index (BMI) 38.0-38.9, adult] Onset: 06-10-2024 06-10-2024 Chronic Other upper respiratory disease (9 sources) [...] Translations: [Tobacco use] Episodic Residual codes; unclassified (7 sources) Never smoked tobacco; Translations: [Other specified health status] Onset: 08-29-2023 08-29-2023 Episodic Spondylosis; intervertebral disc disorders; other [...] status; Translations: [Other specified counseling] Onset: 08-29-2023 Resolved: 06-10-2024 08-29-2023 Episodic Bacterial infection; unspecified site (1 source) Bacterial infectious disease; Translations: [Bacterial infection, unspecified, in conditions classified elsewhere and of unspecified site] Onset: 04-10-2018 Episodic Deficiency and other anemia (1 source) Anemia; Translations: [Unspecified anemia] Onset: 05-26-2015 Episodic Mood disorders (6 sources) Mood disorders Onset: 10-09-2021 06-16-2022 Neoplasms [...] joint, lower leg] Onset: 06-10-2017 Episodic Other nutritional; endocrine; and metabolic disorders (11 sources) Obesity; Translations: [Obesity, unspecified] Onset: 02-25-2023 Resolved: 06-10-2024 08-29-2023 Chronic Other screening for suspected conditions (not mental [...] back] Onset: 03-17-2017 Episodic Residual codes; unclassified (2 sources) Other specified health status; Translations: [Other specified health status] Onset: 08-29-2023 Episodic Unclassified (6 sources) Never smoked tobacco; Translations: [Never a smoker] Unclassified (1 source) LOW BACK PAIN, UNSPECIFIED; Translations: [LOW BACK PAIN, UNSPECIFIED] Onset: 08-15-2022 Unclassified (5 sources) Onset: 08-29-2023 Resolved: 11-18-2023 08-29-2023 Results Test Name Value Interpretation Reference Range Facility BASIC METABOLIC PANLon 05-20 Anion gap [Moles/Vol] 10 mmol/L Normal 5-15 [facility] Comment on above: Performed By: #### B MP #### [facility] ([id number]) [address], [address] [place] [address] Calcium [Mass/Vol] 9.3 mg/dL Normal 8.5-10.5 [facility] Comment on above: Performed By: #### B MP #### [facility] ([id number]) [address], [address] [place] [address] Chloride [Moles/Vol] 105 mmol/L Normal 98-109 [place] Comment on above: Performed By: #### B MP #### [facility] ([id number]) [address], [address] [place] [address] CO2 [Moles/Vol] 26 mmol/L Normal 22-32 [facility] Comment on above: Performed By: #### B MP #### [facility] ([id number]) [address], [address] [place] [address] Creatinine [Mass/Vol] 0.73 mg/dL Normal 0.40-1.00 [facility] Comment on above: Result Comment: METH OD TRACEABLE TO IDMS STANDARD Performed By: #### B MP #### [facility] ([id number]) [address] [address] [place] [address] GFR/1.73 sq M.predicted among non-blacks MDRD (S/P/Bld) [Vol rate/Area] 89 mL/min/{1.73_m2} Normal >59 [facility] Comment on above: Result Comment: Reported eGFR is based on the CKD-EPI 2020 equation that does not use a race coefficient. Performed By: #### B MP #### [facility] ([id number]) [address], [address] [place] [address] Glucose [Mass/Vol] 121 mg/dL High 65-99 [facility] Comment on above: Performed By: #### B MP #### [facility] ([id number]) [address], [address] [place] [address] Potassium [Moles/Vol] 3.8 mmol/L Normal 3.5-5.0 [facility] Comment on above: Performed By: #### B MP #### [facility] ([id number]) [address], [address] [place] [address] Sodium [Moles/Vol] 141 mmol/L Normal 134-146 [facility] Comment on above: Performed By: #### B MP #### [facility] ([id number]) [address], [address] [place] [address] Urea nitrogen [Mass/Vol] 19 mg/dL Normal 5-27 [facility] Comment on above: Performed By: #### B MP #### [facility] ([id number]) [address], [address] [place] [address] Cardiac Device Check - In Cl inicon 03-01-2024 [facility] Work Phone: Radiology Study observation (narrative) [facility] Work Phone: Influenza virus B Ag [Presen ce] in Upper respiratory specimen by Rapid immunoassayon 12-22-2023 FLUBV Ag IA.rapid Ql (Nph) Negative [facility] No Panel Informationon 12-21 Influenza Type A (Rapid) Negative [facility] POC SARS CoV-2 Antigen Positive [facility] Basic metabolic 2000 panelon 08-29-2023 Anion gap [Moles/Vol] 11 mmol/L Normal 10-20 [facility] Comment on above: Performed By: #### 2 4321-2 #### PONCEIBRAMONA ANDREA MARJAN ([id number]) [facility] ([facility]) [address] [place] [address] Calcium [Mass/Vol] 9.5 mg/dL Normal 8.6-10.3 [facility] Comment on above: Performed By: #### 2 4321-2 #### PONCEIBELISUZE ANDREA MARJAN ([id number]) [facility] ([facility]) [address] [place] [address] Chloride [Moles/Vol] 107 mmol/L Normal 98-107 [facility] Comment on above: Performed By: #### 2 4321-2 #### PONCEIBRAMONA LAWS RIO MARJAN ([id number]) [facility] ([facility]) [address] [place] [address] 63894 CO2 [Moles/Vol] 29 mmol/L Normal 21-32 [facility] Comment on above: Performed By: #### 2 4321-2 #### PONCEIBELISUZE ANDREA MARJAN ([id number]) [facility] ([facility]) [address] [place] [address]185 Creatinine [Mass/Vol] 0.75 mg/dL Normal 0.50-1.05 [facility] Comment on above: Performed By: #### 2 4321-2 #### PONCEIBRAMONA ANDREA MARJAN ([id number]) [facility] ([facility]) [address] [place] [address]776 Glomerular filtration rate/1.73 sq M.predicted 87 mL/min/1.73m*2 Normal >60 [facility] Comment on above: Result Comment: Calc ulations of estimated GFR are performed using the 2020 CKD-EPI Study Refit equation without the race variable for the IDMS-Traceable creatinine methods. https://jasn.asnjournals.org/content/early/ASN.3891081 988 Performed By: #### 2 4321-2 #### PONCEIBELISUZE ANDREA MARJAN ([id number]) [facility] ([facility]) [address] [place] [address] Glucose [Mass/Vol] 105 mg/dL High 74-99 [facility] Comment on above: Performed By: #### 2 4321-2 #### PONCEIBRAMONA YEE ([id number]) [facility] ([facility]) [address] [place] [address] 96900 Potassium [Moles/Vol] 4.4 mmol/L Normal 3.5-5.3 [facility] Comment on above: Performed By: #### 2 4321-2 #### ANAIBELISUZE YEE ([id number]) [facility] ([facility]) [address] [place] [address] 25030 Sodium [Moles/Vol] 143 mmol/L Normal 136-145 [facility] Comment on above: Performed By: #### 2 4321-2 #### PONCEIBRAMONA YEE ([id number]) [facility] ([facility]) [address] [place] [address] 50460 Urea nitrogen [Mass/Vol] 19 mg/dL Normal 6-23 [facility] Comment on above: Performed By: #### 2 4321-2 #### PONCEIBRAMONA YEE ([id number]) [facility] ([facility]) [address] [place] [address] 07380 ECG 12 lead (Clinic Performe d)on 08-29-2023 See scan [facility] Work Phone: Echocardiogramon 11-22-[address], [address] [place] [address] TRANSTHORACIC ECHOCARDIOGRAM REPORT Patient Name: NYA Hayward Physician: [id number] Lupe Boswell MD, [facility] Study Date: 11/22/2022 Referring LUPE BOSWELL Physician: N/PID: [id number] PCP: Anupam Pereira Accession/Order#: [id number] Department [facility] Location: Date of : 1955 Fellow: Gender: F Nurse: Admit Date: Chief Diversity Officer: Ashlyn Cam [facility], [facility] Height: 152.40 cm CC Report to: Weight: 91.17 kg Study Type: Echocardiogram BSA: 1.87 m2 Blood Pressure: 134 /62 mmHg Diagnosis/ICD: I50.22-Chronic systolic (congestive) heart failure (CHF); I42.9-Cardiomyopathy, unspecified Indication: AICD, WALDEMAR, Obesity Procedure/CPT: Echo Complete w Full Doppler-[id number] Study Detail: The following Echo studies were [...] 0.8 m/s (0.6-0.9m/s) PV Max P.3 mmHg [id number] Lupe Boswell MD, [facility] Electronically signed on 11/22/2022 at 1:01:56 PM Final Normal [facility] [place] Office Visit (Cardiology)on 10-09-2022 Follow-up visit Diagnoses/Problems [...] Maintenance Start: Vitamin D (Ergocalciferol) 50 MCG (2000 UT) Oral Capsule; one daily OTC SocHx: Never [...] Per Dr. Lupe Boswell MD, schedule at [facility] for echo Follow up in 6 months [...] scheduled. We will arrange for that at [facility]. Her weight is unchanged from [...] AICD, device is assessed by electrophysiology at [facility] 3?cardiac catheterization 7 years ago at [facility] was normal 4? fatigue of unknown etiology. [...] Recorded: 09Oct2022 10:59AM Heart Rate72, L Radial Eqwvbxmu193, LUE, Sitting Rkswyljci20, LUE, Sitting Height5 ft Junzgr200 lb BMI Fahywhfnck51.26 kg/m2 BSA Calculated1.87 Tobacco Useb) No PHQ-2 [...] Cardiovascular: c (more content not included)... Normal [facility] Tobacco Screening.on 023 Fall risk assessment a) No falls within the last year [facility] [address] DO Work Phone: Tobacco use status [facility] b) No [facility] [address] DO Work Phone: Tobacco Screening. Yes [facility] [address] DO Work Phone: CBC AUTO DIFFon 05-21-2022 BASO # 0.0 103/ul Normal 0.0-0.1 [facility] Comment on above: Performed By: #### C BC ####[facility] [address] [place] [id number]. Phillip Mazariegos Basophils/100 WBC (Bld) 0.4 % Normal 0.2-2.0 [facility] Comment on above: Performed By: #### C BC ####[facility] [address] [place] [id number] Mzaariegos EO # 0.2 103/ul Normal 0.0-0.7 [facility] Comment on above: Performed By: #### C BC ####[facility] [address] [place] [address]Dr. Phillip Mazariegos Eosinophils/100 WBC (Bld) 2.0 % Normal 0.9-7.0 [facility] Comment on above: Performed By: #### C BC ####[facility] [address] [place] [address]Dr. Phillip Mazariegos Erythrocyte distribution width (RBC) [Ratio] 13.8 % Normal 11.0-15.0 [facility] Comment on above: Performed By: #### C BC ####[facility] [address] [place], [place] [address]Dr. Phillip Mazariegos Hematocrit (Bld) [Volume fraction] 36.3 % Normal 36.0-48.0 [facility] Comment on above: Performed By: #### C BC ####[facility] [address] [place], [place] [address]Dr. Phillip Mazariegos Hemoglobin (Bld) [Mass/Vol] 12.1 g/dL Normal 12.0-16.0 [facility] Comment on above: Performed By: #### C BC ####[facility] [address] [place], [place] [address]Dr. Phillip Mazariegos IG # 0.02 10e3/ul Normal 0.00-0.03 [facility] Comment on above: Performed By: #### C BC ####[facility] [address] [place], [place] [address]Dr. Phillip Mazariegos IG % 0.3 % Normal 0.0-0.5 [facility] Comment on above: Performed By: #### C BC ####[facility] [address] [place], [place] [address]Dr. Phillip Mazariegos LYMPH # 1.9 103/ul Normal 1.2-3.8 [facility] Comment on above: Performed By: #### C BC ####[facility] [address] [place], [place] [address]Dr. Phillip Mazariegos Lymphocytes/100 WBC (Bld) 25.7 % Normal 20.5-60.0 [facility] Comment on above: Performed By: #### C BC ####[facility] [address] [place] [address]Dr. Phillip Mazariegos MANUAL DIFF REQ NO Normal [facility] Comment on above: Performed By: #### C BC ####[facility] [address] [place] [address]Dr. Phillip Mazariegos MCH (RBC) [Entitic mass] 28.7 pg Normal 26.7-34.0 [facility] Comment on above: Performed By: #### C BC ####[facility] [address] [place] [address]Dr. Phillip Mazariegos MCHC (RBC) [Mass/Vol] 33.3 g/dL Normal 29.9-35.2 [facility] Comment on above: Performed By: #### C BC ####[facility] [address] [place], [place] [address]Dr. Phlilip Mazariegos MCV (RBC) [Entitic vol] 86.0 fL Normal 81.0-99.0 [facility] Comment on above: Performed By: #### C BC ####[facility] [address] [place], [place] [address]Dr. Phillip Mazariegos MONO # 0.6 103/ul Normal 0.3-0.8 [facility] Comment on above: Performed By: #### C BC ####[facility] [address] [place], [place] [address]Dr. Phillip Mazariegos Monocytes/100 WBC (Bld) 7.8 % Normal 1.7-12.0 [facility] Comment on above: Performed By: #### C BC ####[facility] [address] [place], [place] [address]Dr. Phillip Mazariegos NEUT # 4.7 103/ul Normal 1.4-6.5 [facility] Comment on above: Performed By: #### C BC ####[facility] [address] [place], [place] [address]Dr. Phillip Mazariegos Neutrophils/100 WBC (Bld) 63.8 % Normal 43.0-75.0 [facility] Comment on above: Performed By: #### C BC ####[facility] [address] [place] [address]Dr. Phillip Mazariegos Platelet mean volume (Bld) [Entitic vol] 9.5 fL Normal 9.5-13.5 [facility] Comment on above: Performed By: #### C BC ####[facility] [address] [place] [address]Dr. Phillip Mazariegos PLT 269 103/ul Normal 150-450 [facility] Comment on above: Performed By: #### C BC ####[facility] [address] [place] [address]Dr. Phillip Mazariegos RBC 4.22 106/ul Normal 4.20-5.40 [facility] Comment on above: Performed By: #### C BC ####[facility] [address] [place] [address]Dr. Phillip Mazariegos WBC 7.4 103/ul Normal 4.0-11.0 [facility] Comment on above: Performed By: #### C BC ####[facility] [address] [place] [address]Dr. Phillip Mazariegos FERRITINon 05-21-2022 Ferritin [Mass/Vol] 212.0 ng/mL Normal 8.0-252.0 [facility] Comment on above: Performed By: #### F ERR, VITB12, VITAD #### [facility] [address] [place] [address] Dr. Phillip Mazariegos VITAMIN B12on 05-21-2022 Cobalamin (Vitamin B12) [Mass/Vol] 698.0 pg/mL Normal 193.0-986.0 [facility] Comment on above: Performed By: #### F ERR, VITB12, VITAD #### [facility] [address] [place] [address] Dr. Phillip Mazariegos VITAMIN D 25 OHon 05-21-2022 VIT D 25-OH 28.1 ng/mL Normal [facility] Comment on above: Performed By: #### F ERR, VITB12, VITAD ####[facility] [address] [place], [place] [address]Dr. Phillip Mazariegos VIT D RANGES SEE BELOW Normal [facility] Comment on above: Result Comment: <20 ng/mL Vit D deficient 20 - <30 ng/mL Vit D insufficient 30 - 100 ng/mL Vit D sufficient >100 ng/mL Potential Toxicity Performed By: #### F ERR, VITB12, VITAD ####[facility] [address] [place], [place] [address]Dr. Phillip Mazariegos PROF CHEM 8 (BAS METB)on Anion gap [Moles/Vol] 10.8 mmol/L Normal [facility] Comment on above: Performed By: #### B MP ####[facility] [address] [place], [place] [address]Dr. Phillip Mazariegos Calcium [Mass/Vol] 9.1 mg/dL Normal 8.5-10.1 [facility] Comment on above: Performed By: #### B MP ####[facility] [address] [place], [place] [address]Dr. Phillip Mazariegos Chloride [Moles/Vol] 108 mmol/L Critically high 98-107 [facility] Comment on above: Performed By: #### B MP ####[facility] Xs[address] [place], [place] [address]Dr. Phillip Mazariegos CO2 [Moles/Vol] 29.6 mmol/L Normal 21.0-32.0 [facility] Comment on above: Performed By: #### B MP ####[facility] [address] [place], [place] [address]DrBeau Mazariegos Creatinine [Mass/Vol] 0.85 mg/dL Normal 0.55-1.02 [facility] Comment on above: Performed By: #### B MP ####[facility] [address] [place], [place] [address]Dr. hPillip Mazariegos EGFR-AF CANADIAN >60 Normal >=60 [facility] Comment on above: Performed By: #### B MP ####[facility] [address] [place], [place] [address]Dr. Phillip Mazariegos EGFR-NON AF CANADIAN >60 Normal >=60 [facility] Comment on above: Performed By: #### B MP ####[facility] [address] [place] [id number]. Phillip Yair Glucose [Mass/Vol] 90 mg/dL Normal 74-106 [facility] Comment on above: Performed By: #### B MP ####[facility] [address] [place], [place] [address]Cu. Phillip Mazariegos Potassium [Moles/Vol] 4.4 mmol/L Normal 3.5-5.1 [facility] Comment on above: Performed By: #### B MP ####[facility] [address] [place] [id number]. Phillip Mazariegos Sodium [Moles/Vol] 144 mmol/L Normal 136-145 [facility] Comment on above: Performed By: #### B MP ####[facility] [address] [place] [id number]. Rerebretn Yair Urea nitrogen [Mass/Vol] 24.0 mg/dL Critically high 7.0-18.0 [facility] Comment on above: Performed By: #### B MP ####[facility] [address] [place] [id number]. Phillip Mazariegos Urea nitrogen/Creatinine [Mass ratio] 28.2 mg/mg Normal [facility] Comment on above: Performed By: #### B MP ####[facility] [address] [place] [id number]. Phillip Mazariegos Office Visit (Cardiology)on 04-17-2022 Follow-up [...] Metabolic Panel; Status:Active - Retrospective Authorization; Requested for:[id number]; Echocardiogram; Status:Hold For - Scheduling,Retrospective Authorization; Requested for:[id number]; Class 2 obesity with body mass index (BMI) of 39.0 to 39.9 in adult Healthy Weight Tips; Status:Complete - Retrospective Authorization; Done: [id number] Some eating tips that can help you lose weight.; Status:Complete - Retrospective Authorization; Done: [id number] Patient Instructions Please bring all medicines, vitamins, [...] AICD, device is assessed by electrophysiology at [facility] 3?cardiac catheterization 7 years ago at [facility] was normal 4?extreme fatigue of unknown etiology. [...] negative for complaint. Vitals Vital Signs Recorded: [id number] 11:16AM Heart Rate62, R Radial Rcnqtaia537, LUE, Sitting Izraiyujk85, LUE, Sitting Height5 ft Aavxgo544 lb 5 oz BMI Hnmxkataqy01.32 kg/m2 BSA Calculated1.87 Tobacco Useb) No Falls [...] is normal (more content not included)... Normal [facility] Tobacco Screening.on 022 Fall risk assessment a) No falls within the last year [facility] [address] DO Work Phone: Tobacco use status CP b) No [facility] [address] DO Work Phone: XR LSPINE MIN [...] MAREN MARTEL Date: 2022-02-05 07:27 Normal [facility] PROF CHEM 8 (BAS METB)on Anion gap [Moles/Vol] 12.0 mmol/L Normal [facility] Comment on above: Performed By: #### B MP #### [facility] [address] [place] [address] Dr. Phillip Mazariegos Calcium [Mass/Vol] 9.1 mg/dL Normal 8.5-10.1 [facility] Comment on above: Performed By: #### B MP #### [facility] [address] [address] [address] Phillip Mazariegos Chloride [Moles/Vol] 107 mmol/L Normal 98-107 [facility] Comment on above: Performed By: #### B MP #### [facility] [address] [place] [address] [address] Phillip Mazariegos CO2 [Moles/Vol] 27.0 mmol/L Normal 21.0-32.0 [facility] Comment on above: Performed By: #### B MP #### [facility] [address] [place] [address] [address] Phillip Mazariegos Creatinine [Mass/Vol] 0.89 mg/dL Normal 0.55-1.02 [facility] Comment on above: Performed By: #### B MP #### [facility] [address] [place] [address] [address] Phillip Mazariegos EGFR-AF CANADIAN >60 Normal >=60 [facility] Comment on above: Performed By: #### B MP #### [facility] [id number] Phillip Mazariegos EGFR-NON AF CANADIAN >60 Normal >=60 [facility] Comment on above: Performed By: #### B MP #### [facility] [address] [address] [address] Phillip Mazariegos Glucose [Mass/Vol] 109 mg/dL Critically high 74-106 [facility] Comment on above: Performed By: #### B MP #### [facility] [address] [place] [address] [address] Phillip Mazariegos Potassium [Moles/Vol] 4.0 mmol/L Normal 3.5-5.1 [facility] Comment on above: Performed By: #### B MP #### [facility] [address] [place] [address] [address] Phillip Mazariegos Sodium [Moles/Vol] 142 mmol/L Normal 136-145 [facility] Comment on above: Performed By: #### B MP #### [facility] [id number] Phillip Mazariegos Urea nitrogen [Mass/Vol] 19.0 mg/dL Critically high 7.0-18.0 [facility] Comment on above: Performed By: #### B MP #### [facility] [address] Phillip Mazariegos Urea nitrogen/Creatinine [Mass ratio] 21.3 mg/mg Normal [facility] Comment on above: Performed By: #### B MP #### [facility] [id number] Phillip Mazariegos Tobacco Screening.on 022 Adult depression screening assessment No [facility] 250 DO Work Phone: Adult depression screening assessment Yes [facility] [employer] phil Plummer DO Work Phone: Fall risk assessment a) No falls within the last year [facility] [employer] phil Plummer DO Work Phone: Tobacco use status [facility] b) No [facility] [employer] ks Kavitha DO Work Phone: Tobacco Screening. 3-Nearly every day [facility] [employer] phil Plummer DO Work Phone: Tobacco Screening. 0-Not at all [facility] [employer] phil Plummer DO Work Phone: Tobacco Screening. Very Difficult [facility] [employer] ks Kavitha DO Work Phone: CULTURE URINEon 09-09-2021 CULTURE [...] Trimethoprim/Sulfamethoxaz ole <=20 S F Normal [facility] Comment on above: Performed By: #### U RCX ####[facility] [address] [place] [address]Dr. Phillip Mazariegos CBC AUTO DIFFon 09-07-2021 BASO # 0.0 103/ul Normal 0.0-0.1 [facility] Comment on above: Performed By: #### C BC #### [facility] [address] [address] [address] Phillip Mazariegos Basophils/100 WBC (Bld) 0.4 % Normal 0.2-2.0 [facility] Comment on above: Performed By: #### C BC #### [facility] [address] [place] [address] Dr. Phillip Mazariegos EO # 0.1 103/ul Normal 0.0-0.7 [facility] Comment on above: Performed By: #### C BC #### [facility] [address] [place] [address] Dr. Phillip Mazariegos Eosinophils/100 WBC (Bld) 1.9 % Normal 0.9-7.0 [facility] Comment on above: Performed By: #### C BC #### [facility] [address] [place] [address] Dr. Phillip Mazariegos Erythrocyte distribution width (RBC) [Ratio] 13.4 % Normal 11.0-15.0 [facility] Comment on above: Performed By: #### C BC #### [facility] [address] [place] [address] Dr. Phillip Mazariegos Hematocrit (Bld) [Volume fraction] 39.6 % Normal 36.0-48.0 [facility] Comment on above: Performed By: #### C BC #### [facility] [address] [place] [address] Dr. Phillip Mazariegos Hemoglobin (Bld) [Mass/Vol] 13.0 g/dL Normal 12.0-16.0 [facility] Comment on above: Performed By: #### C BC #### [facility] [address] [place] [address] Dr. Phillip Mazariegos IG # 0.04 10e3/ul Critically high 0.00-0.03 [facility] Comment on above: Performed By: #### C BC #### [facility] [address] [place] [address] Dr. Phillip Mazariegos IG % 0.5 % Normal 0.0-0.5 [facility] Comment on above: Performed By: #### C BC #### [facility] [address] [place] [address] Dr. Phillip Mazariegos LYMPH # 1.9 103/ul Normal 1.2-3.8 [facility] Comment on above: Performed By: #### C BC #### [facility] [address] [place] [address] Dr. Phillip Mazariegos Lymphocytes/100 WBC (Bld) 26.2 % Normal 20.5-60.0 [facility] Comment on above: Performed By: #### C BC #### [facility] [address] [place] [address] Dr. Phillip Mazariegos MANUAL DIFF REQ NO Normal [facility] Comment on above: Performed By: #### C BC #### [facility] [address] [place] [address] Dr. Phillip Mazariegos MCH (RBC) [Entitic mass] 28.8 pg Normal 26.7-34.0 [facility] Comment on above: Performed By: #### C BC #### [facility] [address] [place] [address] Dr. Phillip Mazariegos MCHC (RBC) [Mass/Vol] 32.8 g/dL Normal 29.9-35.2 [facility] Comment on above: Performed By: #### C BC #### [facility] [address] [place] [address] Dr. Phillip Mazariegos MCV (RBC) [Entitic vol] 87.8 fL Normal 81.0-99.0 [facility] Comment on above: Performed By: #### C BC #### [facility] [address] [place] [address] Dr. Phillip Mazariegos MONO # 0.5 103/ul Normal 0.3-0.8 [facility] Comment on above: Performed By: #### C BC #### [facility] [address] [address] [address] Phillip Mazariegos Monocytes/100 WBC (Bld) 6.9 % Normal 1.7-12.0 [facility] Comment on above: Performed By: #### C BC #### [facility] [address] [place] [address] [address] Phillip Mazariegos NEUT # 4.7 103/ul Normal 1.4-6.5 [facility] Comment on above: Performed By: #### C BC #### [facility] [address] [place] [address] Dr. Phillip Mazariegos Neutrophils/100 WBC (Bld) 64.1 % Normal 43.0-75.0 [facility] Comment on above: Performed By: #### C BC #### [facility] [address] [place] [address] Dr. Phillip Mazariegos Platelet mean volume (Bld) [Entitic vol] 9.6 fL Normal 9.5-13.5 [facility] Comment on above: Performed By: #### C BC #### [facility] [address] [place] [address] Dr. Phillip Mazariegos PLT 298 103/ul Normal 150-450 [facility] Comment on above: Performed By: #### C BC #### [facility] [address] [place] [address] Dr. Phillip Mazariegos RBC 4.51 106/ul Normal 4.20-5.40 [facility] Comment on above: Performed By: #### C BC #### [facility] [address] [place] [address] Dr. Phillip Mazariegos WBC 7.3 103/ul Normal 4.0-11.0 [facility] Comment on above: Performed By: #### C BC #### [facility] [address] [place] [address] Dr. Phillip Mazariegos PROF CHEM 8 (BAS METB)on Anion gap [Moles/Vol] 11.7 mmol/L Normal [facility] Comment on above: Performed By: #### T SH, BMP #### [facility] [address] [address] [address] Phillip Mazariegos Calcium [Mass/Vol] 8.8 mg/dL Normal 8.5-10.1 [facility] Comment on above: Performed By: #### T SH, BMP #### [facility] [address] [address] [address] Phillip Mazariegos Chloride [Moles/Vol] 103 mmol/L Normal 98-107 [facility] Comment on above: Performed By: #### T SH, BMP #### [facility] [address] [address] [address] Phillip Mazariegos CO2 [Moles/Vol] 28.0 mmol/L Normal 21.0-32.0 [facility] Comment on above: Performed By: #### T SH, BMP #### [facility] [address] [address] [address] Phillip Mazariegos Creatinine [Mass/Vol] 1.02 mg/dL Normal 0.55-1.02 [facility] Comment on above: Performed By: #### T SH, BMP #### [facility] [address] [address] [address] Phillip Mazariegos EGFR-AF CANADIAN >60 Normal >=60 [facility] Comment on above: Performed By: #### T SH, BMP #### [facility] [address] [place] [address] [address] Phillip Mazariegos EGFR-NON AF CANADIAN 54 mL/min/1.73m2 Critically low >=60 [facility] Comment on above: Performed By: #### T SH, BMP #### [facility] [address] [address] [address] Phillip Mazariegos Glucose [Mass/Vol] 119 mg/dL Critically high 74-106 [facility] Comment on above: Performed By: #### T SH, BMP #### [facility] [address] [address] [address] Phillip Mazariegos Potassium [Moles/Vol] 3.7 mmol/L Normal 3.5-5.1 [facility] Comment on above: Performed By: #### T SH, BMP #### [facility] [address] [address] [address] Phillip Mazariegos Sodium [Moles/Vol] 139 mmol/L Normal 136-145 [facility] Comment on above: Performed By: #### T SH, BMP #### [facility] [address] [address] [address] Phillip Mazariegos Urea nitrogen [Mass/Vol] 19.0 mg/dL Critically high 7.0-18.0 [facility] Comment on above: Performed By: #### T SH, BMP #### [facility] [address] [address] [address] Phillip Mazariegos Urea nitrogen/Creatinine [Mass ratio] 18.6 mg/mg Normal [facility] Comment on above: Performed By: #### T SH, BMP #### [facility] [address] [place] [address] Dr. Phillip Mazariegos TSHon 09-07-2021 TSH 3.616 uIU/mL Normal 0.358-3.740 [facility] Comment on above: Performed By: #### T SH, BMP #### [facility] [address] [place] [address] Dr. Phillip Mazariegos TSH RANGE SEE BELOW Normal [facility] Comment on above: Result Comment: <0.3 4 UIU/ml HYPERTHYROID 0.34-5.60 UIU/ml EUTHYROID >5.60 UIU/ml HYPOTHYROID Performed By: #### T SH, BMP #### [facility] [address] [place] [address] Dr. Phillip Mazariegos UA (CLEAN/CATCH) WATER TRAINER/MICRO I F IND.on 09-07-2021 Bilirubin Ql (U) Negative Normal NEGATIVE [facility] Comment on above: Performed By: #### U ACSIND ####[facility] [address] [place] [address]Dr. Phillip Mazariegos Clarity (U) SL CLOUDY Abnormal CLEAR [facility] Comment on above: Performed By: #### U ACSIND ####[facility] [address] [place] [address]Dr. Phillip Mazariegos Color (U) YELLOW Normal YELLOW [facility] Comment on above: Performed By: #### U ACSIND ####[facility] [address] [place], [place] [address]Dr. Phillip Mazariegos Glucose Ql (U) Negative Normal NEGATIVE [facility] Comment on above: Performed By: #### U ACSIND ####[facility] [address] [place], [place] [address]Dr. Phillip Mazariegos Hemoglobin Ql (U) Negative Normal NEGATIVE [facility] Comment on above: Performed By: #### U ACSIND ####[facility] [address] [place], [place] [address]Dr. Phillip Mazariegos Ketones Ql (U) Negative Normal NEGATIVE [facility] Comment on above: Performed By: #### U ACSIND ####[facility] [address] [place], [place] [address]Dr. Phillip Mazariegos LEUKOCYTES Negative Normal NEGATIVE [facility] Comment on above: Performed By: #### U ACSIND ####[facility] [address] [place], [place] [address]Dr. Phillip Mazariegos Nitrite Ql (U) Negative Normal NEGATIVE [facility] Comment on above: Performed By: #### U ACSIND ####[facility] [address] [place], [place] [address]Dr. Phillip Mazariegos pH (U) 6.0 [pH] Normal 5-9 [facility] Comment on above: Performed By: #### U ACSIND ####[facility] [address] [place], [place] [address]Dr. Phillip Mazariegos SPEC GRAVITY >=1.030 Abnormal 1.005-<=1.0 25 [facility] Comment on above: Performed By: #### U ACSIND ####[facility] [address] [place], [place] [address]Dr. Phillip Yair UA PROTEIN Negative Normal NEGATIVE/ TRACE [facility] Comment on above: Performed By: #### U ACSIND ####[facility] [address] [place], [place] [address]Dr. Phillip Mazariegos UR MICRO IND INDICATED Normal [facility] Comment on above: Performed By: #### U ACSIND ####[facility] [address] [place] [address]Dr. Phillip Mazariegos Urobilinogen Qn (U) 0.2 {Trish'U}/dL Normal 0.2 - 1. 0 [facility] Comment on above: Performed By: #### U ACSIND ####[facility] [address] [place] [address]Dr. Phillip Mazariegos URINE MICROSCOPIC ONLYon BACTERIA SMALL Abnormal NONE SEEN [facility] Comment on above: Performed By: #### U MICRO #### [facility] [address] [place] [address] Dr. Phillip Mazariegos Bacteria identified Cx Nom (U) INDICATED Normal [facility] Comment on above: Performed By: #### U MICRO #### [facility] [address] [place] [address] Dr. Phillip Mazariegos CAST NONE SEEN Normal NONE SEEN [facility] Comment on above: Performed By: #### U MICRO #### [facility] [address] [address] [address] Phillip Mazariegos Crystals LM Nom (Urine sed) NONE SEEN Normal NONE SEEN [facility] Comment on above: Performed By: #### U MICRO #### [facility] [address] [place] [address] Dr. Phillip Mazariegos Epithelial cells LM Ql (Urine sed) FEW Abnormal NONE SEEN /RARE [facility] Comment on above: Performed By: #### U MICRO #### [facility] [address] [place] [address] Dr. Phillip Mazariegos MUCOUS TRACE Abnormal NONE SEEN [facility] Comment on above: Performed By: #### U MICRO #### [facility] [address] [place] [address] Dr. Phillip Mazariegos RBC NONE SEEN Abnormal 0-2 [facility] Comment on above: Performed By: #### U MICRO #### [facility] [address] [place] [address] Dr. Phillip Mazariegos WBC 0-2 Abnormal NONE SEEN [facility] Comment on above: Performed By: #### U MICRO #### [facility] [address] [place], [place] [address] Dr. Phillip Mazariegos XR CHEST 2 Von [...] by: ELAINA ARRIAZA Date: 2021-09-07 15:03 Normal [facility] Radiologyon 08-28-2021 XR Chest 2 Views Normal [facility] 320 DO Work Phone: Laboratory - Chemistry and C hemistry - challengeon 08-02-2021 Anion gap [Moles/Vol] 11 mmol/L 10 - 20 [facility] 250 DO Work Phone: Calcium [Mass/Vol] 9.3 mg/dL 8.6 - 10.3 [facility] 250 DO Work Phone: Chloride [Moles/Vol] 107 mmol/L 98 - 107 [facility] 250 DO Work Phone: CO2 [Moles/Vol] 27 mmol/L 21 - 32 [facility] 250 DO Work Phone: Creatinine [Mass/Vol] 0.79 mg/dL See Below [facility] [address] DO Work Phone: Comment on above: Reference Range: 0.5 0 - 1.05 Glucose [Mass/Vol] 98 mg/dL 74 - 99 [facility] 250 DO Work Phone: Potassium [Moles/Vol] 3.7 mmol/L 3.5 - 5.3 [facility] 250 DO Work Phone: Sodium [Moles/Vol] 141 mmol/L 136 - 145 [facility] Maryana Plummer DO Work Phone: [phone] Urea nitrogen [Mass/Vol] 20 mg/dL 6 - 23 [facility] Maryana Plummer DO Work Phone: [phone] Laboratory - Coagulationon 0 08-02-2021 aPTT Coag (PPP) [Time] 32 s 26 - 39 [facility] Maryana Plummer DO Work Phone: [phone] Comment on above: THE APTT IS NO LONGE R USED FOR MONITORING UNFRACTIONATED HEPARIN THERAPY. FOR MONITORING HEPARIN THERAPY, USE THE HEPARIN ASSAY. INR Coag (PPP) [Relative time] 1.0 {INR} 0.9 - 1.1 [facility] Maryana ks Kavitha DO Work Phone: [phone] PT Coag (PPP) [Time] 11.9 s 9.8 - 13.4 [facility] phil Plummer DO Work Phone: [phone] Laboratory - Hematology and Cell countson 08-02-2021 Erythrocyte distribution width (RBC) [Ratio] 13.3 % See Below [facility] Maryana Plummer DO Work Phone: [phone] Comment on above: Reference Range: 11. 5 - 14.5 Hematocrit (Bld) [Volume fraction] 37.9 % See Below [facility] Maryana [facility] DO Work Phone: [phone] Comment on above: Reference Range: 36. 0 - 46.0 Hemoglobin (Bld) [Mass/Vol] 12.7 g/dL See Below [facility] Maryana [facility] DO Work Phone: [phone] Comment on above: Reference Range: 12. 0 - 16.0 MCHC (RBC) [Mass/Vol] 33.5 g/dL See Below [facility] Maryana ks Kavitha DO Work Phone: [phone] Comment on above: Reference Range: 32. 0 - 36.0 MCV (RBC) [Entitic vol] 88 fL 80 - 100 [facility] Work Phone: [phone] Platelets (Bld) [#/Vol] 168 10*3/uL 150 - 450 [facility] 250 DO Work Phone: RBC (Bld) [#/Vol] 4.33 {x10E12/L} See Below [facility] 250 DO Work Phone: Comment on above: Reference Range: 4.0 0 - 5.20 WBC (Bld) [#/Vol] 7.3 10*3/uL 4.4 - 11.3 [facility] 250 DO Work Phone: No Panel Informationon 08-02 [email or web address]?R etrieveTestByDateTime?Judy mbpZF=[id number]&Date=&Time=07%3a58%3a03%3a 00&TestType=ECG&Site=11&Ou tputType=PDF&Ext=PDF [facility] villarreal 250 DO Work Phone: [phone] Atrial-sensed ventricular-paced rhythm [facility] villarreal 250 DO Work Phone: Abnormal [facility] villarreal 250 DO Work Phone: [phone] [facility] [place] 250 DO Work Phone: [phone] [facility] [facility] 250 DO Work Phone: [phone] [facility] [place] 250 DO Work Phone: [phone] [facility] [place] 250 DO Work Phone: [phone] [facility] 250 DO Work Phone: 10 1 [facility] 250 DO Work Phone: [phone] 1 [facility] 250 DO Work Phone: [phone] 1 [facility] 250 DO Work Phone: -[phone] [facility] 250 DO Work Phone: [phone] [facility] 250 DO Work Phone: [phone] [facility] 250 DO Work Phone: [phone] 1 [facility] 250 DO Work Phone: [phone] 1 [facility] 250 DO Work Phone: 64 1 [facility] 250 DO Work Phone: 82 {mL/min/1.73m2} >90 [facility] 250 DO Work Phone: Comment on above: CALCULATIONS OF PHUC MATED GFR ARE PERFORMED USING THE 2020 CKD-EPI STUDY REFIT EQUATION WITHOUT THE RACE VARIABLE FOR THE IDMS-TRACEABLE CREATININE METHODS.https://jasn.asnjournals.org/content/early/ASN .8829139575 Radiologyon 08-02-2021 XR Chest 2 Views Normal [facility] Maryana villarreal 250 DO Work Phone: COVID-19 SOFIAOrdered By: Awais Mayes on 07-31-2021 SARS-CoV+SARS-CoV-2 (COVID-19) Ag IA.rapid Ql (Resp) Negative Negative [facility] Comment on above: This is a duplicate Gretchen SARS Antigen (RUSTAM) result to be used for statistical tracking purpose only. No Panel InformationOrdered By: Daphne Mayes on 07-31-2021 SARS Antigen (LFIA) [facility] Basophils Auto (Bld) [#/Vol] Ordered By: Daphne Mayes on 07-18-2021 Basophils (Bld) [#/Vol] 0.0 10*3/uL 0.0-0.2 [facility] Basophils/100 WBC Auto (Bld) Ordered By: Daphne Mayes on 07-18-2021 Basophils/100 WBC (Bld) 0.5 % [facility] Blood hemoglobin measurement (mass/volume)Ordered By: Daphne Mayes on 07-18-2021 Hemoglobin (Bld) [Mass/Vol] 13.2 g/dL 11.8-15.4 [facility] Blood leukocytes automated c ount (number/volume)Ordered By: Daphne Mayes on 07-18-2021 WBC (Bld) [#/Vol] 6.3 10*3/uL 4.5-11.0 [facility] COVID-19 Positive/NegativeOr dered By: Daphne Mayes on 07-18-2021 SARS-CoV-2 (COVID-19) N gene MELL+probe Ql (Resp) Positive Negative [facility] Comment on above: Positive results ying l only be called to Providers for the following groups of patients: Pre-Surgical Testing, Emergency Room, and Inpatients.Testing for SARS-CoV-2 by RT-PCRThis test was developed and its performance characteristics determined by [employer] and validated at the [facility]. This test has not been FDA [...] on 07-18-2021 Creatinine [Mass/Vol] 0.76 mg/dL 0.44-1.03 [facility] Eosinophils Auto (Bld) [#/Vo l]Ordered By: Daphne Mayes on 07-18-2021 Eosinophils (Bld) [#/Vol] 0.2 10*3/uL 0.0-0.45 [facility] Eosinophils/100 WBC Auto (Bl d)Ordered By: Daphne Mayes on 07-18-2021 Eosinophils/100 WBC (Bld) 2.7 % [facility] Erythrocyte distribution wid th Auto (RBC) [Ratio]Ordered By: Daphne Mayes on 07-18-2021 Erythrocyte distribution width (RBC) [Ratio] 14.1 % 11.9-15.3 [facility] Estimated glomerular filtrat ion rate (GFR) non- AmericanOrdered By: Daphne Mayes on 07-18-2021 GFR/1.73 sq M.predicted among non-blacks MDRD (S/P/Bld) [Vol rate/Area] > 60 mL/Min [facility] Hematocrit Auto (Bld) [Volum e fraction]Ordered By: Daphne Mayes on 07-18-2021 Hematocrit (Bld) [Volume fraction] 39.3 % 34.0-46.4 [facility] Laboratory - CoagulationOrde red By: Daphne Mayes on 07-18-2021 PT Coag (PPP) [Time] 12.7 s 9.0-12.9 [facility] - Hematology and Cell countsOrdered By: Daphne Mayes on 07-18-2021 Nucleated RBC/100 WBC (Bld) [Ratio] 0.2 % 0-0.5 [facility] Lymphocytes Auto (Bld) [#/Vo l]Ordered By: Daphne Mayes on 07-18-2021 Lymphocytes (Bld) [#/Vol] 1.8 10*3/uL 1.00-4.8 [facility] Lymphocytes/100 WBC Auto (Bl d)Ordered By: Daphne Mayes on 07-18-2021 Lymphocytes/100 WBC (Bld) 28.3 % [facility] MCH Auto (RBC) [Entitic mass ]Ordered By: Daphne Mayes on 07-18-2021 MCH (RBC) [Entitic mass] 29.3 pg 24.7-34.3 [facility] MCHC Auto (RBC) [Mass/Vol]Or dered By: Daphne Mayes on 07-18-2021 MCHC (RBC) [Mass/Vol] 33.5 g/dL 32.0-35.0 [facility] MCV Auto (RBC) [Entitic vol] Ordered By: Daphne Mayes on 07-18-2021 MCV (RBC) [Entitic vol] 87.5 fL 80-100 [facility] Monocytes Auto (Bld) [#/Vol] Ordered By: Daphne Mayes on 07-18-2021 Monocytes (Bld) [#/Vol] 0.5 10*3/uL 0.0-0.8 [facility] Monocytes/100 WBC Auto (Bld) Ordered By: Daphne Mayes on 07-18-2021 Monocytes/100 WBC (Bld) 7.5 % [facility] Neutrophils Auto (Bld) [#/Vo l]Ordered By: Daphne Mayes on 07-18-2021 Neutrophils (Bld) [#/Vol] 3.9 10*3/uL 1.8-7.7 [facility] Neutrophils/100 WBC Auto (Bl d)Ordered By: Daphne Mayes on 07-18-2021 Neutrophils/100 WBC (Bld) 61.0 % [facility] No Panel InformationOrdered By: Daphne Mayes on 07-18-2021 Estimated GFR () > 60 mL/Min [facility] Comment on above: GFR estimated refere nce range: According to KDOQI guidelines, <60 ml/min/1.73m2 is sufficient to diagnose a patient with chronic kidney disease. Pharmacy Creatinine Clearance (Chem N/A [facility] Platelet mean volume Auto (B ld) [Entitic vol]Ordered By: Daphne Mayes on 07-18-2021 Platelet mean volume (Bld) [Entitic vol] 8.5 fL 6.3-10.7 [facility] Platelet poor plasma interna tional normalized ratio (INR) by coagulation assay (relatOrdered By: Daphne Mayes on 07-18-2021 INR Coag (PPP) [Relative time] 1.1 {INR} [facility] Comment on above: INR Therapeutic Rang [...] 07-18-2021 Platelets (Bld) [#/Vol] 282 10*3/uL 150-450 [facility] RBC Auto (Bld) [#/Vol]Ordere d By: Daphne Mayes on 07-18-2021 RBC (Bld) [#/Vol] 4.49 10*6/uL 3.60-5.[address] [facility] Serum or plasma calcium khurram urement (mass/volume)Ordered By: Daphne Mayes on 07-18-2021 Calcium [Mass/Vol] 9.3 mg/dL 8.2-10.2 [facility] Serum or plasma chloride stephen surement (moles/volume)Ordered By: Daphne Mayes on 07-18-2021 Chloride [Moles/Vol] 103 mmol/L 95-114 [facility] Serum or plasma glucose khurram urement (mass/volume)Ordered By: Daphne Mayes on 07-18-2021 Glucose [Mass/Vol] 118 mg/dL 70-100 [facility] Comment on above: ADA recommended refe rence rangeRandom Glucose Reference Range is dependent on time and content of last meal. Glucose of more than 200 mg/dL in a nonstressed, ambulatory subject supports the diagnosis of Diabetes Mellitus. Serum or plasma potassium me asurement (moles/volume)Ordered By: Daphne Mayes on 07-18-2021 Potassium [Moles/Vol] 3.9 mmol/L 3.5-5.1 [facility] Serum or plasma sodium measu rement (moles/volume)Ordered By: Daphne Mayes on 07-18-2021 Sodium [Moles/Vol] 139 mmol/L 136-146 [facility] Serum or plasma total carbon dioxide measurement (moles/volume)Ordered By: Daphne Mayes on 07-18-2021 CO2 [Moles/Vol] 26.2 mmol/L 22.0-30.0 [facility] Serum or plasma urea nitroge n measurement (mass/volume)Ordered By: Daphne Mayes on 07-18-2021 Urea nitrogen [Mass/Vol] 16 mg/dL 9-23 [facility] CBCon 08-01-2020 Erythrocyte distribution width (RBC) [Ratio] 13.4 % Normal 11.5 - 14.5 [facility] Comment on above: Performed By: #### C BC #### [address] [id number] Hematocrit (Bld) [Volume fraction] 41.9 % Normal 36.0 - 46.0 [facility] Comment on above: Performed By: #### C BC #### [address] [id number] Hemoglobin (Bld) [Mass/Vol] 13.3 g/dL Normal 12.0 - 16.0 [facility] Comment on above: Performed By: #### C BC #### [address] [id number] MCHC (RBC) [Mass/Vol] 31.7 g/dL Low 32.0 - 36.0 [facility] Comment on above: Performed By: #### C BC #### [address] [id number] MCV (RBC) [Entitic vol] 91 fL Normal 80 - 100 [facility] Comment on above: Performed By: #### C BC #### [address] [id number] Platelets (Bld) [#/Vol] 205 10*3/uL Normal 150 - 450 [facility] Comment on above: Performed By: #### C BC #### [address] [id number] RBC (Bld) [#/Vol] 4.62 x10E12/L Normal 4.00 - 5.20 [facility] Comment on above: Performed By: #### C BC #### [address] [id number] WBC (Bld) [#/Vol] 7.4 10*3/uL Normal 4.4 - 11.3 [facility] Comment on above: Performed By: #### C BC #### [address] [place] [id number] CREATININEon 08-01-2020 Creatinine [Mass/Vol] 0.77 mg/dL Normal 0.50 - 1.05 [facility] Comment on above: Performed By: #### C REAT #### [address] [id number] Creatinine [Mass/Vol] mg/dL Normal >60 [facility] Comment on above: Result Comment: CALC ULATIONS OF ESTIMATED GFR ARE PERFORMED USING THE MDRD STUDY EQUATION FOR THE IDMS-TRACEABLE CREATININE METHODS. CLIN CHEM 2007;53:766-72 Performed By: #### C REAT #### [address] [id number] ELECTROLYTE PANELon 08-02-19 Anion gap [Moles/Vol] 12 mmol/L Normal 10 - 20 [facility] Comment on above: Performed By: #### E LECT #### [address] [id number] Chloride [Moles/Vol] 107 mmol/L Normal 98 - 107 [facility] Comment on above: Performed By: #### E LECT #### [address] [id number] HCO3 (Bld) [Moles/Vol] 28 mmol/L Normal 21 - 32 [facility] Comment on above: Performed By: #### E LECT #### [address] [id number] Potassium [Moles/Vol] 3.7 mmol/L Normal 3.5 - 5.3 [facility] Comment on above: Performed By: #### E LECT #### [address] [id number] Sodium [Moles/Vol] 143 mmol/L Normal 136 - 145 [facility] Comment on above: Performed By: #### E LECT #### [address] [id number] UREA NITROGENon 08-01-2020 Urea nitrogen [Mass/Vol] 17 mg/dL Normal 6 - 23 [facility] Comment on above: Performed By: #### U SHARON #### [address] [id number] [facility] 11-13-2018 CNNURSE Nurse Visit (CARDMN) -- NYA BELL ([id number]) 1955 F Date Time Provider Department 11/13/18 7:00 AM RESEARCH NURSE CARD BALA DAS During your visit today, we recorded the following information about you: Aba Rodriguez [facility] 11/13/2018 4:02 PM Signed IRB [id number] TRIM-AF Study (Upstream Targeting for the Prevention of Atrial Fibrillation: Targeting Risk Interventions and Metformin for Atrial Fibrillation) PI: Jose Hodge I called the patient to follow up on potential participation in the TRIM-AF (NO AF Biomarker) study. The patient was unavailable and I left a voicemail to return my call at her convenience. Aba Fraustorichrosa [facility] November 13, 2018 2:31 PM Referring Provider: JONA WAN [[id number]] Allergies As of Date: 11/13/2018 Noted Allergy Reaction ADHESIVE TAPE (ROSINS) 10/25/2013 16 - Unknown Date Reviewed: 06/03/2017 Reviewed by: Juan Candelario (Barb) BARB Jones - Fully Assessed Reason for Visit: [...] [E66.9] INVALID FOR* Encounter Status:Closed by UMU SUAREZABA Allen on 11/13/18 [facility] PROGRESSon 11-13-2018 PROGRESS HNO ID: [id number] Author: Aba Rodriguez [facility] Service: ? Author Type: ? Type: Progress [...] my call at her convenience. Aba Rodriguez [facility] November 13, 2018 2:31 PM [facility] Coding Summary.on 07-02-2017 Coding Summary. CODING DATE: 018 [facility] STATUS: Home (Routine DC) PAYOR: Medicare [...] Rosa Stubbs Date Saved: 07/02/2017 08:19 am [facility] Vital Signs Date Time Vital Sign Value Performing Clinician Facility 06-10-2024 10:24-0500 Body height 152.4 cm Lupe Boswell MD Work Phone: [facility] 06-10-2024 10:24-0500 Body mass index (BMI) [Ratio] 38.55 kg/m2 Lupe Boswell MD Work Phone: [facility] 06-10-2024 10:24-0500 Body weight 89.54 kg Lupe Boswell MD Work Phone: [facility] 06-10-2024 10:24-0500 Diastolic blood pressure 60 mm[Hg] Lupe Boswell MD Work Phone: [facility] 06-10-2024 10:24-0500 Heart rate 82 /min Lupe Boswell MD Work Phone: [facility] 06-10-2024 10:24-0500 Systolic blood pressure 108 mm[Hg] Lupe Boswell MD Work Phone: [facility] 05-31-2024 11:36-0500 Body height 149.22 cm [facility] 05-31-2024 11:36-0500 Body mass index (BMI) [Ratio] 39.7 kg/m2 [facility] 05-31-2024 11:36-0500 Body weight 88.59 kg [facility] 05-31-2024 11:36-0500 Diastolic blood pressure 76 mm[Hg] [facility] 05-31-2024 11:36-0500 Heart rate 65 /min [facility] 05-31-2024 11:36-0500 Respiratory rate 16 /min [facility] 05-31-2024 11:36-0500 SaO2% (BldA) [Mass fraction] 98 % [facility] 05-31-2024 11:36-0500 Systolic blood pressure 114 mm[Hg] [facility] 03-02-2024 10:53-0400 Body height 151.13 cm [facility] 03-02-2024 10:53-0400 Body mass index (BMI) [Ratio] 38.7 kg/m2 [facility] 03-02-2024 10:53-0400 Body weight 88.45 kg [facility] 03-02-2024 10:53-0400 Diastolic blood pressure 81 mm[Hg] [facility] 03-02-2024 10:53-0400 Heart rate 78 /min [facility] 03-02-2024 10:53-0400 Systolic blood pressure 137 mm[Hg] [facility] 12-22-2023 13:59-0400 Body height 151.13 cm [facility] 12-22-2023 13:59-0400 Body mass index (BMI) [Ratio] 39.5 kg/m2 [facility] 12-22-2023 13:59-0400 Body temperature 98.6 [degF] [facility] 12-22-2023 13:59-0400 Body weight 90.37 kg [facility] 12-22-2023 13:59-0400 Heart rate 95 /min [facility] 12-22-2023 13:59-0400 Respiratory rate 18 /min [facility] 12-22-2023 13:59-0400 SaO2% (BldA) [Mass fraction] 97 % [facility] 11-18-2023 10:43-0400 Body height 152.4 cm Lupe Boswell MD Work Phone: [facility] 11-18-2023 10:43-0400 Body mass index (BMI) [Ratio] 37.5 kg/m2 Lupe Boswell MD Work Phone: [facility] 11-18-2023 10:43-0400 Body weight 87.09 kg Lupe Boswell MD Work Phone: [facility] 11-18-2023 10:43-0400 Diastolic blood pressure 64 mm[Hg] Lupe Boswell MD Work Phone: [facility] 11-18-2023 10:43-0400 Heart rate 76 /min Lupe Boswell MD Work Phone: [facility] 11-18-2023 10:43-0400 Systolic blood pressure 106 mm[Hg] Lupe Boswell MD Work Phone: [facility] 08-29-2023 10:30-0400 Body height 152.4 cm Daphne Mayes MD Work Phone: [facility] 08-29-2023 10:30-0400 Body mass index (BMI) [Ratio] 37.5 kg/m2 Daphne Mayes MD Work Phone: [facility] 08-29-2023 10:30-0400 Body weight 87.09 kg Daphne Mayes MD Work Phone: [facility] 08-29-2023 10:30-0400 Diastolic blood pressure 80 mm[Hg] Daphne Mayes MD Work Phone: [facility] 08-29-2023 10:30-0400 Heart rate 64 /min Daphne Mayes MD Work Phone: [facility] 08-29-2023 10:30-0400 Systolic blood pressure 136 mm[Hg] Daphne Mayes MD Work Phone: [facility] 05-28-2023 11:30-0500 Body height 151.13 cm Anupam Pereira Other [employer] Other 05-28-2023 11:30-0500 Body mass index (BMI) [Ratio] 37.33 kg/m2 Anupam Pereira Other [employer] Other 05-28-2023 11:30-0500 Body weight 85.28 kg Anupam Pereira Other [employer] Other 05-28-2023 11:30-0500 Diastolic blood pressure 82 mm[Hg] Anupam Pereira Other [employer] Other 05-28-2023 11:30-0500 Systolic blood pressure 121 mm[Hg] Anupam Pereira Other [employer] Other 05-12-2023 13:32-0500 Body height 152.4 cm Lupe Boswell MD Work Phone: [facility] 05-12-2023 13:32-0500 Body mass index (BMI) [Ratio] 37.3 kg/m2 Lupe Boswell MD Work Phone: [facility] 05-12-2023 13:32-0500 Body weight 86.64 kg Lupe Boswell MD Work Phone: [facility] 05-12-2023 13:32-0500 Diastolic blood pressure 60 mm[Hg] Lupe Boswell MD Work Phone: [facility] 05-12-2023 13:32-0500 Heart rate 62 /min Lupe Boswell MD Work Phone: [facility] 05-12-2023 13:32-0500 Systolic blood pressure 106 mm[Hg] Lupe Boswell MD Work Phone: [facility] 02-25-2023 10:10-0400 Body height 152.4 cm Maurizio Jorgensen [employer] Work Phone: [facility] 02-25-2023 10:10-0400 Body mass index (BMI) [Ratio] 37.69 kg/m2 Maurizio Jorgensen [employer] Work Phone: [facility] 02-25-2023 10:10-0400 Body weight 87.54 kg Maurizio Jorgensen NET DEV[employer] Work Phone: [facility] 02-25-2023 10:10-0400 Diastolic blood pressure 80 mm[Hg] Mauriizo Jorgensen [employer] Work Phone: [facility] 02-25-2023 10:10-0400 Heart rate 74 /min Maurizio Jorgensen NET DEV[employer] Work Phone: [facility] 02-25-2023 10:10-0400 Systolic blood pressure 132 mm[Hg] Maurizio Jorgensen [employer] Work Phone: [facility] 01-09-2023 13:15-0400 Body height 151.13 cm Anupam Pereira Other [employer] Other 01-09-2023 13:15-0400 Body mass index (BMI) [Ratio] 38.05 kg/m2 Anupam Pereira Other [employer] Other 01-09-2023 13:15-0400 Body weight 86.91 kg Anupam Pereira Other [employer] Other 01-09-2023 13:15-0400 Diastolic blood pressure 95 mm[Hg] Anupam Pereira Other [employer] Other 01-09-2023 13:15-0400 Systolic blood pressure 140 mm[Hg] Anupam Pereira Other [employer] Other 12-31-2022 14:15-0400 Body height 151.13 cm Anupam Pereira Other [employer] Other 12-31-2022 14:15-0400 Body mass index (BMI) [Ratio] 38.32 kg/m2 Anupam Pereira Other [employer] Other 12-31-2022 14:15-0400 Body temperature 97.9 [degF] Anupam Pereira Other [employer] Other 12-31-2022 14:15-0400 Body weight 87.54 kg Anupam Pereira Other [employer] Other 12-31-2022 14:15-0400 Diastolic blood pressure 83 mm[Hg] Anupam Pereira Other [employer] Other 12-31-2022 14:15-0400 Systolic blood pressure 127 mm[Hg] Anupam Pereira Other [employer] Other 12-24-2022 10:45-0400 Body height 151.13 cm Anupam Pereira Other [employer] Other 12-24-2022 10:45-0400 Body mass index (BMI) [Ratio] 38.52 kg/m2 Anupam Pereira Other [employer] Other 12-24-2022 10:45-0400 Body weight 88 kg Anupam Pereira Other [employer] Other 12-24-2022 10:45-0400 Diastolic blood pressure 75 mm[Hg] Anupam Pereira Other [employer] Other 12-24-2022 10:45-0400 Systolic blood pressure 111 mm[Hg] Anupam Pereira Other [employer] Other 10-09-2022 10:59-0400 Body height 152.4 cm Anupam Pereira Work Phone: [employer] 250 DO Work Phone: 10-09-2022 10:59-0400 Body mass index (BMI) [Ratio] 39.26 kg/m2 Anupam Pereira Work Phone: [employer] 250 DO Work Phone: 10-09-2022 10:59-0400 Body surface area Derived from formula 1.87 m2 Anupam Pereira Work Phone: [employer] 250 DO Work Phone: 10-09-2022 10:59-0400 Body weight 91.17 kg Anupam Pereira Work Phone: [facility] [employer] 250 DO Work Phone: 10-09-2022 10:59-0400 Diastolic blood pressure 64 mm[Hg] Anupam Pereira Work Phone: [facility] [employer] 250 DO Work Phone: 10-09-2022 10:59-0400 Heart rate 72 /min Anupam Pereira Work Phone: [facility] [employer] 250 DO Work Phone: 10-09-2022 10:59-0400 Systolic blood pressure 124 mm[Hg] Anupam Pereira Work Phone: [facility] [employer] 250 DO Work Phone: 05-21-2022 15:30-0500 Body height 151.13 cm Anupam Pereira Other [employer] Other 05-21-2022 15:30-0500 Body mass index (BMI) [Ratio] 40.11 kg/m2 Anupam Pereira Other [employer] Other 05-21-2022 15:30-0500 Body weight 91.63 kg Anupam Pereira Other [employer] Other 05-21-2022 15:30-0500 Diastolic blood pressure 70 mm[Hg] Anupam Pereira Other [employer] Other 05-21-2022 15:30-0500 SaO2% (BldA) [Mass fraction] 97 % Anupam Pereira Other [employer] Other 05-21-2022 15:30-0500 Systolic blood pressure 126 mm[Hg] Anupam Pereira Other [employer] Other 04-17-2022 11:16-0500 Body height 152.4 cm Anupam Pereira Work Phone: [facility] 250 DO Work Phone: 04-17-2022 11:16-0500 Body mass index (BMI) [Ratio] 39.32 kg/m2 Anupam Pereira Work Phone: [facility] 250 DO Work Phone: 04-17-2022 11:16-0500 Body surface area Derived from formula 1.87 m2 Anupam Pereira Work Phone: [facility] 250 DO Work Phone: 04-17-2022 11:16-0500 Body weight 91.31 kg Anupam Pereira Work Phone: [facility] 250 DO Work Phone: 04-17-2022 11:16-0500 Diastolic blood pressure 84 mm[Hg] Anupam Pereira Work Phone: [facility] 250 DO Work Phone: 04-17-2022 11:16-0500 Heart rate 62 /min Anupam Pereira Work Phone: [facility] 250 DO Work Phone: 04-17-2022 11:16-0500 Systolic blood pressure 126 mm[Hg] Anupam Pereira Work Phone: [facility] 250 DO Work Phone: 10-09-2021 13:20-0400 Body height 152.4 cm Anupam Pereira Work Phone: [facility] 250 DO Work Phone: 10-09-2021 13:20-0400 Body mass index (BMI) [Ratio] 40.23 kg/m2 Anupam Pereira Work Phone: [facility] 250 DO Work Phone: 10-09-2021 13:20-0400 Body surface area Derived from formula 1.89 m2 Anupam Pereira Work Phone: [facility] 250 DO Work Phone: 10-09-2021 13:20-0400 Body weight 93.44 kg Anupam Pereira Work Phone: [facility] 250 DO Work Phone: 10-09-2021 13:20-0400 Diastolic blood pressure 89 mm[Hg] Anupam Pereira Work Phone: [facility] 250 DO Work Phone: 10-09-2021 13:20-0400 Heart rate 68 /min Anupam Pereira Work Phone: [facility] 250 DO Work Phone: 10-09-2021 13:20-0400 Systolic blood pressure 144 mm[Hg] Anupam Pereira Work Phone: [facility] 250 DO Work Phone: 10-09-2021 13:20-0400 12 1 Anupam Pereira Work Phone: [facility] 250 DO Work Phone: Comment on above: PHQ-9 TS 08-09-2021 15:58-0400 Body height 152.4 cm Anupam Pereira Work Phone: [facility] 250 DO Work Phone: 08-09-2021 15:58-0400 Body mass index (BMI) [Ratio] 41.21 kg/m2 Anupam Pereira Work Phone: [facility] 250 DO Work Phone: 08-09-2021 15:58-0400 Body surface area Derived from formula 1.91 m2 Anupam Pereira Work Phone: [facility] 250 DO Work Phone: 08-09-2021 15:58-0400 Body temperature 97 [degF] Anupam Pereira Work Phone: [facility] 250 DO Work Phone: 08-09-2021 15:58-0400 Body weight 95.71 kg Anupam Pereira Work Phone: [facility] 250 DO Work Phone: 08-09-2021 15:58-0400 Diastolic blood pressure 78 mm[Hg] Anupam Pereira Work Phone: [facility] 250 DO Work Phone: 08-09-2021 15:58-0400 Heart rate 82 /min Anupam Pereira Work Phone: [facility] 250 DO Work Phone: 08-09-2021 15:58-0400 Systolic blood pressure 132 mm[Hg] Anupam Pereira Work Phone: [facility] 250 DO Work Phone: Encounters Encounter Date Encounter Type Care Provider Facility Start: 06-10-2024 End: 06-10-2024 Office outpatient visit 25 minutes Lupe Boswell MD Work Phone: [facility] Comment on above: ICD (implantable car dioverter-defibrillator) in place (Primary Dx); Chronic systolic congestive heart failure; Fatigue, unspecified type; Obstructive sleep apnea syndrome in adult; Never smoked cigarettes; BMI 38.0-38.9,adult; Class 2 obesity Start: 06-03-2024 End: 06-03-2024 Patient encounter procedure Anupam Pereira MD Work Phone: [facility]-Pacemaker Check Start: 06-03-2024 End: 06-03-2024 ambulatory Anupam Pereira MD Work Phone: [facility] Work Phone: Start: 05-31-2024 End: 05-31-2024 ambulatory [facility] Work Phone: Start: 05-31-2024 End: 05-31-2024 Patient encounter procedure [facility] Work Phone: Start: 05-20-2024 End: 05-20-2024 ambulatory [facility] Start: 05-20-2024 Non-patient / Non-visit Anupam Pereira MD Work Phone: [facility] Work Phone: Start: 03-03-2024 Non-patient / Non-visit [facility] Work Phone: Start: 03-03-2024 End: 03-03-2024 ambulatory Anupam Pereira Facility:[facility] Start: 03-03-2024 Non-patient / Non-visit [facility] Start: 03-02-2024 End: 03-02-2024 ambulatory [facility] Work Phone: Start: 03-02-2024 End: 03-02-2024 Patient encounter procedure [facility] Work Phone: Start: 03-01-2024 End: 03-01-2024 Subsequent hospital visit by physician [facility] [place] Comment on above: ICD (implantable car dioverter-defibrillator) in place Start: 03-01-2024 End: 03-01-2024 ambulatory [facility] Start: 12-22-2023 End: 12-22-2023 ambulatory [facility] Work Phone: Start: 12-22-2023 End: 12-22-2023 Patient encounter procedure [facility] Work Phone: Start: 12-02-2023 End: 12-02-2023 Patient encounter procedure MD Anupam Pereira Work Phone: [facility]-Pacemaker Check Start: 12-02-2023 End: 12-02-2023 ambulatory MD Anupam Pereira Work Phone: [facility] Work Phone: Start: 12-02-2023 Non-patient / Non-visit [facility] Start: 11-18-2023 End: 11-18-2023 Office outpatient visit 25 minutes Lupe Boswell MD Work Phone: [facility] Comment on above: Cardiomyopathy, unsp ecified type (Multi); Chronic systolic congestive heart failure (Multi); ICD (implantable cardioverter-defibrillator) in place; Obstructive sleep apnea syndrome in adult; Fatigue, unspecified type; Never smoked cigarettes; Class 2 obesity without serious comorbidity with body mass index (BMI) of 37.0 to 37.9 in adult, unspecified obesity type Start: 11-18-2023 End: 11-18-[facility] Start: 08-29-2023 End: 08-30-2023 ambulatory ANUPAM PEREIRA [facility] Start: 08-29-2023 End: 08-29-2023 Office outpatient visit 25 minutes Daphne Mayes MD Work Phone: [facility] Comment on above: ICD (implantable [...] Start: 08-29-2023 End: 08-29-2023 ambulatory DAPHNE MAYES [place] [facility] Start: 05-28-2023 Office outpatient vi sit 15 minutes Anupam Pereira [facility] Start: 05-28-2023 End: 05-28-2023 ambulatory MD Anupam Pereira Work Phone: [employer] Other Start: 05-28-2023 End: 05-28-2023 Patient encounter procedure MD Anupam Pereira Work Phone: [facility]-Pacemaker Check Start: 05-20-2023 End: 05-20-2023 ambulatory Anupam Pereira Other [employer] Other Start: 05-20-2023 Telephone encounter Anupam Pereira [facility] Start: 05-12-2023 End: 05-12-2023 Office outpatient visit 25 minutes Lupe Boswell MD Work Phone: [facility] Comment on above: Cardiomyopathy, unsp ecified type (CMS/HCC) (Primary Dx); ICD (implantable cardioverter-defibrillator) in place; Obstructive sleep apnea syndrome in adult; Class 2 obesity without serious comorbidity with body mass index (BMI) of 37.0 to 37.9 in adult, unspecified obesity type Start: 05-12-2023 End: 05-12-2023 ambulatory TORREZ M [facility] Ambulatory Start: 05-08-2023 End: 05-08-2023 Patient encounter procedure MD Anupam Pereira Work Phone: [facility] Work Phone: Start: 02-25-2023 End: 02-25-2023 Office outpatient visit 25 minutes Maurizio Jorgensen APRN-[employer] Work Phone: [facility] Comment on above: ICD (implantable car dioverter-defibrillator) in place (Primary Dx); Morbid obesity (CMS/HCC); Chronic systolic congestive heart failure (CMS/HCC); Cardiomyopathy, unspecified type (CMS/HCC); Dyspnea on exertion; Obstructive sleep apnea syndrome in adult; Other fatigue Start: 01-09-2023 End: 01-09-2023 ambulatory Anupam Pereira Other [employer] Other Start: 01-09-2023 Office outpatient vi sit 15 minutes Anupam Pereira [facility] Start: 12-31-2022 End: 12-31-2022 ambulatory Anupam Pereira Other [employer] Other Start: 12-31-2022 Office outpatient vi sit 15 minutes Anupam Pereira [facility] Start: 12-24-2022 End: 12-24-2022 ambulatory Anupam Pereira Other [employer] Other Start: 12-24-2022 Office outpatient vi sit 15 minutes Anupam Pereira [facility] Start: 12-20-2022 End: 12-20-2022 ambulatory Anupam Pereira Other [employer] Other Start: 12-20-2022 Telephone encounter Anupam Pereira [facility] Start: 12-16-2022 End: 12-16-2022 ambulatory Anupam Pereira Other [employer] Other Start: 12-16-2022 Telephone encounter Anupam Pereira [facility] Start: 11-28-2022 End: 11-28-2022 ambulatory MD Anupam Pereira Work Phone: [facility] Work Phone: Start: 11-28-2022 End: 11-28-2022 Patient encounter procedure MD Anupam Pereira Work Phone: [facility]-Pacemaker Check Start: 11-22-[address] Lupe Boswell Facility:[id number] Start: 10-09-[address] Lupe Boswell Facility:[id number] Start: 10-09-2022 Office outpatient vi sit 25 minutes Anupam Pereira Work Phone: [facility] 250 DO Work Phone: Start: 08-28-[address] Anupam Pereira Facility:[id number] Start: 08-28-2022 End: 08-28-2022 ambulatory MD Anupam Pereira Work Phone: [facility] Work Phone: Start: 08-28-2022 End: 08-28-2022 Patient encounter procedure MD Anupam Pereira Work Phone: [facility]-Pacemaker Check Start: 08-22-[address] Lupe Boswell Facility:[id number] Start: 08-15-2022 End: 08-16-2022 ambulatory YOSHI MANE . Facility:H1 Start: 07-17-[address] Lupe Boswell Facility:[id number] Start: 07-16-2022 End: 07-16-[address] ANUPAM PEREIRA Facility:H1 Start: 07-11-2022 Encounter for preprocedural cardiovascular examination DR JANICE IRVING . [facility] Start: 07-09-2022 End: 07-10-[address] ANUPAM PEREIRA Facility:H1 Start: 07-09-2022 End: 07-10-2022 Encounter for preprocedural cardiovascular examination DR ANUPAM PEREIRA Facility:H1 Start: 06-20-2022 End: 06-21-[address] ANUPAM PEREIRA Facility:H1 Start: 06-04-2022 End: 06-04-[address] ANUPAM PEREIRA Facility:H1 Start: 05-23-2022 End: 05-24-[address] ANUPAM PEREIRA [employer] Other Start: 05-23-2022 Telephone encounter Anupam Pereira [facility] Start: 05-21-2022 End: 05-22-[address] ANUPAM PEREIRA [facility] [employer] Other Start: 05-21-2022 Office outpatient vi sit 15 minutes Anupam Pereira [facility] Start: 05-17-2022 End: 05-17-2022 ambulatory MD Anupam Pereira Work Phone: [facility] Work Phone: Start: 05-17-2022 End: 05-17-2022 Patient encounter procedure MD Anupam Pereira Work Phone: [facility]-Pacemaker Check Start: 05-07-2022 End: 05-07-[address] ANUPAM PEREIRA Facility:H1 Start: 04-23-2022 End: 04-24-[address] ANUPAM PEREIRA Facility:H1 Start: 04-17-2022 Office outpatient vi sit 25 minutes Anupam Pereira Work Phone: [facility] 250 DO Work Phone: Start: 04-17-[address] Lupe Boswell Facility: Start: 04-09-2022 End: 04-10-[address] ANUPAM PEREIRA Facility:H1 Start: 02-12-[address] Anupam Pereira Facility:[id number] Start: 02-12-2022 End: 02-12-2022 ambulatory MD Anupam Pereira Work Phone: [facility] Work Phone: Start: 02-12-2022 End: 02-12-2022 Patient encounter procedure MD Anupam Pereira Work Phone: [facility]-Pacemaker Check Start: 02-04-2022 End: 02-05-[address] ANUPAM PEREIRA Facility:H1 Start: 02-01-[address] Anupam Pereira Facility: Start: 11-07-2021 End: 11-07-2021 Patient encounter procedure MD Anupam Pereira Work Phone: [facility]-Pacemaker Check Start: 11-06-2021 End: 11-07-[address] LUPE BOSWELL Facility:H1 Start: 10-09-2021 Office outpatient vi sit 25 minutes Anupam Pereira Work Phone: [facility] 250 DO Work Phone: Start: 09-07-2021 End: 09-08-[address] ANUPAM PEREIRA Facility:H1 Start: 08-30-2021 Chart Update Anupam Pereira Work Phone: [facility] 320 DO Work Phone: Start: 08-10-2021 Rx Renewal Anupam Pereira Work Phone: [facility] 250 DO Work Phone: Start: 08-09-2021 Postop follow up vis it related to original px Anupam Pereira Work Phone: [facility] 250 DO Work Phone: Start: 07-31-2021 End: 07-31-2021 Patient encounter procedure MD Anupam Pereira Work Phone: [facility] COVID Testing Start: 07-23-2021 AUDIT Anupam Pereira Work Phone: [facility] 3 DO Work Phone: Start: 07-18-2021 End: 07-18-2021 Patient encounter procedure MD Anupam Pereira Work Phone: [facility] Swab Start: 07-11-2021 Message Anupam Pereira Work Phone: [facility] 320 DO Work Phone: Start: 07-04-2021 End: 07-04-2021 Patient encounter procedure MD Anupam Pereira Work Phone: [facility]-Pacemaker Check Start: 06-29-2021 AUDIT Anupam Pereira Work Phone: [facility] 320 DO Work Phone: Start: 04-03-2021 Rx Renewal Anupam Pereira Work Phone: [facility] 320 DO Work Phone: Start: 07-01-2017 End: 07-02-2017 [facility] Patient encounter status Anupam Pereira Work Phone: [facility] 320 DO Work Phone: End: 10-09-2021 Patient encounter status Anupam Pereira Work Phone: [facility] 250 DO Work Phone: Procedures Date Procedure Procedure Detail Performing Clinician Start: 03-01-2024 Prgrmg eval implanta ble in person multi lead dfb Daphne Mayes MD Work Phone: Start: 08-29-2023 ECG 12-LEAD TORREZ JEROME MISSYОлег Start: 08-29-2023 FOLLOW UP IN CARDIOLOGY LUPE [...] DTaP/Tdap/Td Vaccines (2 - Td or Tdap) [facility] Start: 10-06-2024 End: 10-06-2024 Patient encounter procedure 10/06/2024 9:40 AM EDT Office Visit [facility] [address] [place] [address] [address] [place] [address] Lupe Boswell MD [address] [facility] [address], [place] [address] [place] [address] [facility] Start: 08-28-2024 Creatinine measurement Creatinine Le lee ann [facility] Start: 08-28-2024 Potassium measurement Potassium Leve l [facility] Start: 06-10-2024 End: 06-10-2024 Patient encounter procedure 06/10/2024 10:30 AM EST Office Visit [address] [place] [address] Lupe Boswell MD [address] [facility] [address], [place] [address] [place] [address] [facility] Start: 05-20-2024 End: 11-17-2024 Basic metabolic 2000 panel - Serum or Plasma Basic Metabolic Panel Lab Routine Cardiomyopathy, unspecified type (Multi) Chronic systolic congestive heart failure (Multi) Expected: 05/20/2024 (Approximate), Expires: 11/17/2024 [facility] Service Area Work Phone: Comment on above: Expected: 05/20/2024 (Approximate), Expires: 11/17/2024 Start: 04-06-2024 End: 04-06-2024 Patient encounter procedure 04/06/2024 11:00 AM EST Office Visit [facility] [address] [facility] [address] [place] [id number] Daphne Mayes MD [address] [facility] [address], [address] [place] [address] [facility] Start: 02-28-2024 End: 08-28-2024 Cardiac Device Check - In Clinic Cardiac Device Check - In Clinic Implantable Cardiac Device Routine ICD (implantable cardioverter-defibrilla tor) in place Expected: 02/28/2024 (Approximate), Expires: 08/28/2024 [facility] Service Area Work Phone: Comment on above: Expected: 02/28/2024 (Approximate), Expires: 08/28/2024 Start: 02-20-2024 End: 02-20-2024 Patient encounter procedure [facility] Start: 01-04-2024 COVID-19 Vaccine ( season) COVID-19 Vaccine ( season) [facility] Start: 01-04-2024 Influenza vaccination [facility] Start: 11-23-2023 Echocardiography Echocardiogram [facility] Start: 11-18-2023 End: 11-18-2023 Patient encounter procedure 11/18/2023 10:40 AM EDT Office Visit [facility] [address] [facility] [address] [place] [address] Lupe Boswell MD [address] [facility] [address], [address] [place] [address] [facility] Start: 08-29-2023 End: 08-29-2023 Patient encounter procedure 08/29/2023 10:20 AM EDT Office Visit [facility] [address] [facility] [address] [place] [address] Daphne Mayes MD [address] [employer] [address] [facility], [address] [place] [address] [facility] Start: 04-17-2023 FUV, Provider: Lupe Boswell, Status: Pen, Time: 11:00 AM FUV, Provider: Lupe Boswell, Status: Pen, Time: 11:00 AM [facility] 250 DO Work Phone: Start: 04-17-2023 End: 04-17-2023 Patient encounter procedure 04/17/2023 11:00 AM EST Office Visit [facility] [address] [facility] [address] [place] [phone] Lupe Boswell MD [address] [facility] [address], [facility] 250 [place], [place] [id number] [facility] Start: 03-11-2023 End: 02-26-2024 Basic metabolic 2000 panel - Serum or Plasma Basic metabolic panel Lab Routine Chronic systolic congestive heart failure (CMS/HCC) Expected: 03/11/2023 (Approximate), Expires: 02/26/2024 [facility] Service Area Work Phone: Comment on above: Expected: 03/11/2023 (Approximate), Expires: 02/26/2024 Start: 01-31-2023 FUV, Provider: Daphne Mayes, Status: Pen, Time: 2:00 PM FUV, Provider: Daphne Mayes, Status: Pen, Time: 2:00 PM [facility] 250 DO Work Phone: Start: 01-31-2023 Patient encounter procedure FUVPACEMKR, Provider: [facility]EM[facility], Status: Pen, Time: 1:00 PM [facility] 250 DO Work Phone: Start: 01-03-2023 COVID-19 Vaccine ( season) COVID-19 Vaccine () [facility] Start: 01-03-2023 Influenza vaccination Influenza Vacc ine (#1) [facility] Start: 11-22-2022 ECHO, Provider: CARMEN [facility]AMP[facility] 01,[id number], Status: Pen, Time: 10:45 AM ECHO, Provider: KENDY [facility] 01,[id number], Status: Pen, Time: 10:45 AM [facility] Work Phone: Start: 10-09-2022 FUV, Provider: Lupe Boswell, Status: Pen, Time: 10:40 AM FUV, Provider: Lupe Boswell, Status: Pen, Time: 10:40 AM [facility] 250 DO Work Phone: Start: 08-02-2022 Creatinine measurement Creatinine Le lee ann [facility] Start: 08-02-2022 Potassium measurement Potassium Leve l [facility] Start: 07-17-2022 ECHO, Provider: CAR[facility] CAMP[facility] 01,[id number], Status: Pen, Time: 9:45 AM ECHO, Provider: KENDY [facility] 01,[id number], Status: Pen, Time: 9:45 AM [place] Work Phone: Start: 05-29-2022 ECHO, Provider: [facility] 01,[id number], Status: Pen, Time: 2:30 PM ECHO, Provider: KENDY [facility] 01,[id number], Status: Pen, Time: 2:30 PM [facility] 250 DO Work Phone: Start: 04-17-2022 FUV, Provider: Lupe Boswell, Status: Pen, Time: 11:10 AM FUV, Provider: Lupe Boswell, Status: Pen, Time: 11:10 AM [facility] 250 DO Work Phone: Start: 02-01-2022 FUV, Provider: Daphne Mayes, Status: Pen, Time: 3:20 PM FUV, Provider: Daphne Mayes, Status: Pen, Time: 3:20 PM [facility] 250 DO Work Phone: Start: 02-01-2022 Patient encounter procedure FUVPACEMKR, Provider: [facility],EMCPACEMKR, Status: Pen, Time: 2:20 PM [place] Work Phone: Start: 11-20-2021 NURSEVST, Provider: PRABHJOT WALDRON POWER PLANT ASSISTANT 1,[id number], Status: Pen, Time: 2:30 PM NURSEVST, Provider: PRABHJOT WALDRON POWER PLANT ASSISTANT 1,[id number], Status: Pen, Time: 2:30 PM [facility] 250 DO Work Phone: Start: 11-20-2021 ECHO, Provider: [facility] 01,[id number], Status: Pen, Time: 1:30 PM ECHO, Provider: KENDY [facility] 01,[id number], Status: Pen, Time: 1:30 PM [facility] 250 DO Work Phone: Start: 10-09-2021 FUV, Provider: Lupe Boswell, Status: Pen, Time: 1:30 PM FUV, Provider: Lupe Boswell, Status: Pen, Time: 1:30 PM [facility] 320 DO Work Phone: Start: 08-28-2021 FUV, Provider: Daphne Mayes, Status: Pen, Time: 2:20 PM FUV, Provider: Daphne Mayes, Status: Pen, Time: 2:20 PM [facility] 320 DO Work Phone: Start: 08-28-2021 Patient encounter procedure FUVPACEMKR, Provider: [facility],EM[facility]EM[facility], Status: Pen, Time: 1:20 PM [facility] 320 DO Work Phone: Start: 08-02-2021 ICD CHANGE, Provider : [facility] EXCHANGE ADMINISTRATOR 4,[id number], Status: Pen, Time: 12:30 PM ICD CHANGE, Provider: [facility] EXCHANGE ADMINISTRATOR 4,[id number], Status: Pen, Time: 12:30 PM -[facility] 3 DO Work Phone: Start: 08-02-2021 [facility], Provider: Daphne Mayes, Status: Pen, Time: 11:00 AM [facility], Provider: Daphne Mayes, Status: Pen, Time: 11:[address] [facility] 3 DO Work Phone: Start: 07-19-2021 ICD CHANGE, Provider : [facility] EXCHANGE ADMINISTRATOR 4,[id number], Status: Pen, Time: 2:00 PM ICD CHANGE, Provider: [facility] EXCHANGE ADMINISTRATOR 4,[id number], Status: Pen, Time: 2:00 PM [facility] 320 DO Work Phone: Start: 07-19-2021 [facility], Provider: Daphne Maeys, Status: Pen, Time: 11:00 AM [facility], Provider: Daphne Mayes, Status: Pen, Time: 11:00 AM [facility] 320 DO Work Phone: Start: 07-17-2021 FUV, Provider: Daphne Mayes, Status: Pen, Time: 8:40 AM FUV, Provider: Daphne Mayes, Status: Pen, Time: 8:40 AM [facility] [address] DO Work Phone: Start: 07-17-2021 Patient encounter procedure FUVPACEMKR, Provider: [facility],DA[facility], Status: Pen, Time: 7:40 AM [facility] 320 DO Work Phone: Start: 2014 RSV High Risk: (Elde rly (60+) or Population) (1 - Risk 60-74 years 1-dose series) RSV High Risk: (Elderly (60+) or Population) (1 - Risk 60-74 years 1-dose series) [facility] Start: 2014 RSV patient s and/or patients aged 60+ years (1 - 1-dose 60+ series) RSV patients and/or patients aged 60+ years (1 - 1-dose 60+ series) [facility] Start: 2004 Zoster Vaccines (1 of 2) Zoste r Vaccines (1 of 2) [facility] Start: 1994 Screening for malign ant neoplasm of breast Mammogram [facility] Start: 1976 DTaP/Tdap/Td Vaccine s (1 - Tdap) DTaP/Tdap/Td Vaccines (1 - Tdap) [facility] Start: 1973 Pneumococcal vaccination Pneum ococcal Vaccine (1 of 2 - PCV) [facility] Start: 1972 Diabetes mellitus screening Diabetes Screening [facility] Start: 1972 Hepatitis C screening Hepatitis C Sc [facility] Start: 1960 Pneumococcal Vaccine : 65+ Years (1 - PCV) Pneumococcal Vaccine: 65+ Years (1 - PCV) [facility] Start: 1960 Pneumococcal Vaccine : 65+ Years (1 of 2 - PCV) Pneumococcal Vaccine: 65+ Years (1 of 2 - PCV) [facility] Start: 04-03-1955 COVID-19 Vaccine (#1) COVID-19 Vacci ne (#1) [facility] Start: 1954 Lipid panel Lipid Panel [facility] Start: 1954 Medicare Annual Well ness Visit Medicare Annual Wellness Visit (AWV) [facility] Start: 1954 Screening for malign ant neoplasm of colon [facility] Start: 1954 Screening for osteoporosis Bone Dens ity Scan [facility] End: 02-28-2024 Cardiac Device Check - Remote Cardiac Device Check - Remote Implantable Cardiac Device Routine ICD (implantable cardioverter-defibrilla tor) in place 52 Occurrences starting 08/29/2023 until 02/28/2024 [facility] Work Phone: Comment on above: 52 Occurrences start ing 08/29/2023 until 02/28/2024 [facility] Payers Date Payer Category Payer Medicare [id number] 2023 Unknown [id number] 2023 Self-pay [id number] 2022 Dual Eligibility Medicare/Medicaid Organization [id number] 2022 Private Health Insurance [facility] DUAL COMPLETE [facility] DUAL [facility]TE [id number] 2022-Present [address] [address] [place] [address] [id number] 2017 Medicare [id number] 2017 Medicaid [id number] 2017 Private Health Insurance [id number] 2017 Private Health Insurance [id number] 2.16.840.1.718921.19 1960 Medicaid [id number] 1955 Unknown [id number] 2.16.840.1.749169.3.579.2 .593 1954 Unknown [id number] 2.16.840.1.541611.3.579.2 .593 1954 Unknown [id number] 2.16.840.1.504092.3.579.2 .593 1954 Unknown [id number] 2.16.840.1.563249.3.579.2 .593 1954 Unknown [id number] 2.16.840.1.878024.3.579.2 .593 1954 Unknown [id number] 2.16.840.1.483274.3.579.2 .593 1954 Unknown [id number] 2.16.840.1.694526.3.579.2 .593 1954 Unknown [id number] 2.16.840.1.827461.3.579.2 .593 1954 Unknown [id number] 2.16.840.1.672990.3.579.2 .593 1954 Unknown [id number] 2.16.840.1.793753.3.579.2 .593 1954 Unknown [id number] 2.16.840.1.308146.3.579.2 .593 1954 Unknown [id number] 2.16.840.1.428075.3.579.2 .593 1954 Unknown [id number] 2.16.840.1.749838.3.579.2 .593 1954 Unknown [id number] 2.16.840.1.455370.3.579.2 .1068 1954 Unknown [id number] 2.16.840.1.770700.3.579.2 .1068 1954 Unknown [id number] 2.16.840.1.010097.3.579.2 .1068 1954 Unknown [id number] 2.16.840.1.820795.3.579.2 .356 1954 Unknown [id number] 2.16.840.1.399185.3.579.2 .356 1954 Unknown [id number] 2.16.840.1.295101.3.579.2 .356 1954 Unknown [id number] 2.16.840.1.531285.3.579.2 .356 1954 Unknown [id number] 2.16.840.1.211674.3.579.2 .356 1954 Unknown [id number] 2.16.840.1.121397.3.579.2 .356 1954 Unknown [id number] 2.16840.1.898199.3.579.2 .1245 1954 Unknown [id number] 2.840.1.507871.3.579.2 .4 1954 Unknown [id number] 2.840.1.383282.3.579.2 .1243 1954 Unknown [id number] 2.840.1.379349.3.579.2 .1243 1954 Unknown [id number] 2.840.1.887799.3.579.2 .6 1954 Unknown [id number] 2.840.1.740185.3.579.2 .1286 Medicare [id number] Medicare Medicare [id number] Private Health Insurance [id number] Unknown Unknown [id number] 2.16840.1.765339.3.579.2 .531 Unknown [id number] 2.840.1.214656.3.579.2 .531 Unknown [id number] 2.16.840.1.512858.3.579.2 .531 Unknown [id number] 2.16.840.1.643440.3.579.2 .531 Social History Date Type Detail Facility Start: 10-09-2021 End: 11-18-2023 Caffeine use Caffeine use [facility] Comment on above: 1 1/2 daily (Pop); Start: 1955 Sex Assigned At Female F [facility] Start: 10-09-2021 End: 11-18-2023 Sex Assigned At [facility] Start: 02-25-2023 End: 05-31-2024 Tobacco smoking status NHIS Never smoked tobacco [facility] Work Phone: Start: 02-25-2023 Tobacco use and exposure Smokeless tobacco non-user [facility] Work Phone: Start: 1955 [facility] Start: 02-15-2023 End: 06-10-2024 Exposure to SARS-CoV-2 (event) Not sure [facility] Start: 08-29-2023 End: 06-10-2024 Alcoholic beverage intake Lifetime non-drinker (finding) [facility] Work Phone: Start: 05-31-2024 End: 06-04-2024 Sex Female (finding) [facility] Functional Status Date Assessment Result Facility 10-09-2021 PHQ-9 [id number] Moderate (10-14) [facility]Kendy 250 DO Work Phone: Clinical Notes 08-02-2021 to 06-10-2024 Lupe Boswell MD - 06/10/2024 10:30 AM ESTPatient InstructionsAttachments Note Date & Type Note Facility 06-10-2024 History of Present illness Narrative Subjective Nya Bell is a 68 y.o. female Chief Complaint Follow-up HPI Patient is in the office for follow-up for the problems noted below. She had a fall 3 days ago at home which was accidental leading to fracture of the right forearm, she was in tears due to pain today. Outside of this event she has done well since her last visit but has not been compliant using CPAP machine and as a result she complains of chronic fatigue. She has no orthopnea PND lower extremity edema and her weight remains above target with a BMI 38.5 kg/m . Recent basic by profile was reviewed with her and her numbers are on target. Assessment/recommendations: 1-previous history of nonischemic cardiopathy with ejection fraction now up to 65% by echocardiogram November 2022. Will replace Entresto with valsartan 80 mg daily and replace carvedilol with nebivolol 2.5 mg daily for simplicity and because of symptoms of fatigue. Will follow her back up in the office in 4 months. 2-status post AICD, device is assessed by electrophysiology at [facility] 3-cardiac catheterization 8 years ago at [facility] was normal 4-sleep apnea supposed to be on CPAP machine, encouraged patient to follow-up with a sleep lab to adjust the device. 6-class II obesity, recommended low-calorie diet and more regular exercise. Review of Systems All other systems reviewed and are negative. Vitals: 06/10/24 1024 BP: 108/60 BP Location: Left arm Patient Position: Sitting Pulse: 82 Weight: 89.5 kg (197 lb 6.4 oz) Height: 1.524 m (5') Objective Physical Exam [...] Allergies Adhesive Current Medications Current Outpatient Medications: metFORMIN XR 500 mg 24 hr tablet, Take 1 tablet (500 mg) by mouth 2 times daily (morning and late afternoon)., Disp: , Rfl: omeprazole (PriLOSEC) [address] capsule, Take 1 capsule (20 mg) by mouth once daily in the morning. Before Breakfast, Disp: , Rfl: sertraline (Zoloft) 50 mg tablet, Take 1 tablet (50 mg) by mouth 2 times a day., Disp: , Rfl: nebivolol (Bystolic) 2.5 mg tablet, Take 1 tablet (2.5 mg) by mouth once daily., Disp: 90 tablet, Rfl: 3 valsartan (Diovan) 80 mg tablet, Take 1 tablet (80 mg) by mouth once daily., Disp: 90 tablet, Rfl: 3 Assessment/Plan 1. ICD (implantable cardioverter-defibrillator) in place 2. Chronic systolic congestive heart failure Follow Up In Cardiology Follow Up In Cardiology nebivolol (Bystolic) 2.5 mg tablet valsartan (Diovan) 80 mg tablet 3. Fatigue, unspecified type 4. Obstructive sleep apnea syndrome in adult 5. Never smoked cigarettes 6. BMI 38.0-38.9,adult 7. Class 2 obesity Scribe Attestation By signing my name below, I, Rafal Brown LPN attest that this documentation has been prepared under the direction and in the presence of Lupe Boswell MD. Provider Attestation - Scribe documentation All medical record entries made by the Scribe were at my direction and personally dictated by me. I have reviewed the chart and agree that the record accurately reflects my personal performance of the history, physical exam, discussion and plan. documented in this encounter [facility] Work Phone: 06-10-2024 Instructions Jyotsna Thayer LPN - 06/10/2024 10:30 AM EST Please bring all medicines, vitamins, and herbal supplements with you when you come to the office. Prescriptions will not be filled unless you are compliant with your follow up appointments or have a follow up appointment scheduled as per instruction of your physician. Refills should be requested at the time of your visit. BMI was above normal measurement. Current weight: 89.5 kg (197 lb 6.4 oz) Weight change since last visit (-) denotes wt loss 5.4 lbs Weight loss needed to achieve BMI 25: 69.7 Lbs Weight loss needed to achieve BMI 30: 44.1 Lbs Provided instructions on dietary changes. Pacemaker/Defibrillator follow up per routine The following attachments cannot be sent through Care Everywhere.Heart Healthy Diet (Guatemalan)documented in this encounter [facility] Work Phone: 05-31-2024 Evaluation note Diagnosis Onset Date Resolution Depression acute May 31, 2024 11:18am Heart failure acute May 11:18am Impaired fasting glucose acute May 31, 2024 11:18am Obesity, Class II, BMI 35-39.9 acute May 31 11:18am Obstructive sleep apnea acute J an2024 11:18am Osteoarthritis acute May 312024 11:18am [facility] Work Phone: 1(958) 589-103810-29-2024 Evaluation note* Diagnosis Onset Date Resolution Status Admit Date Depression acute March 02, 2024 10:47am [facility] Work Phone: 1(813) 533-146007-16-2024 History of Present illness Narrative* Lupe Boswell [...] AICD, device is assessed by electrophysiology at [facility] 3-cardiac catheterization 8 years ago at [facility] was normal 4-sleep apnea supposed to be [...] Scribe Attestation By signing my name below, IScarlet LPN, Scribe attest that this documentation has [...] exam, discussion and plan. [facility] Work Phone: 1(312) 687-166707-16-2024 Instructions* Patient Instructions* Scarlet Loomis LPN - [...] 6 months with lab documented in this [facility] Work Phone: 1(975) 296-717804-26-2024 History of Present illness Narrative* Daphne Mayes [...] QT interval 470 ms Device check today. Sporting Mout[employer]ronic DTPA 2 QQ. Estimated longevity device 6years. [...] dictation application being used. [facility] Work Phone: 1(388) 142-717304-26-2024 Instructions* Patient Instructions* Anel Samano RN - [...] time of your visit. Follow up with Mauriizo in 6 months with device check Continue remote checks at 3 and 9 months ANEL Nur RN, AM SCRIBING FOR AND IN THE PRESENCE OF DR. DAPHNE MAYES MD, FACC, FACP, FHRS documented [facility] Work Phone: 1(605) 558-322001-24-2024 Evaluation note* Encounter Date Diagnosis Assessment Notes Treatment Notes Treatment Clinical Notes May, Influenza A (ICD-10 - J10.1) resolved. discussed symptomatic care May, Acute bronchitis, unspecified organism (ICD-10 - J20.9) No further antibiotics or steroids indicated. Recommened conservative measures for help w laryngitis. 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 [employer] Other 01-08-2024 History of Present illness Narrative* Lupe Boswell MD - 05/12/2023 1:30 PM EST Subjective Nya Bell is a 67 y.o. female Chief Complaint Follow-up HPI Patient is in the office for follow-up for the problems noted below. She was in [place] recently and had flu syndrome which left her with significant bronchitis that was noted during today's visit. Her lab data from [place] was reviewed, cardiac enzymes were normal other [...] AICD, device is assessed by electrophysiology at [facility] 3-cardiac catheterization 8 years ago at [facility] was normal 4-sleep apnea supposed to be [...] Scribe Attestation By signing my name below, Africa Nur LPN , Sherinibe attest that this documentation has been prepared under the direction and in the presence of Lupe Boswell MD. documented in [facility] Work Phone: 1([phone]) 239-152001-08-2024 Instructions* Patient Instructions* Africa Noland LPN - [...] follow up per routine documented in [facility]Prem[facility] Work Phone: 1([phone]) 146-130010-24-2023 History of Present illness Narrative* Maurizio Jorgensen, NET DEVELOPER WITH [employer] - 02/25/2023 10:00 AM EDT CARDIOLOGY OFFICE VISIT CHIEF COMPLAINT Chief Complaint Patient presents with Device Check Routine check up HISTORY OF PRESENT ILLNESS HPI The patient is a 67-year-old female who is followed for nonischemic cardiomyopathy with a left ventricular ejection fraction improved to 60 to 65% per 2D echocardiogram dated November 22, 2022, [place] [employer] class II- III, stage C [...] times daily ergocalciferol (Vitamin D-2) 50 MCG (1999 UT) capsule capsule 1 capsule, oral, Daily, OTC [...] per 2D echocardiogram dated November 22, 2022, [place] [employer] class III, stage C heart failure. 2. Upgrade to an AV biventricular ICD on August 02, 2021 (Medtronic cobalt XT HF Quad ORDER ADMINISTRATOR-D). Initial implant on January 25, 2015. 3. Valvular heart disease consisting of mild MR per 2D echocardiogram dated November 22, 2022. 4. Left heart catheterization in 2014 revealing normal coronaries at [facility]. 5. Obstructive sleep apnea, noncompliant with CPAP. [...] furosemide. 2. Obtain ICD checks per the [facility] device clinic as scheduled. Patient was instructed to obtain an in clinic device check at [facility] approximately 2 weeks prior to the office [...] to prepare this document. documented in this [facility]Prem[facility] Work Phone: [phone]) 622-946510-24-2023 Instructions* Patient Instructions* ISAI Mora - 02/25/2023 10:00 AM EDT When taking the lasix, increase dietary potassium intake (orange juice, bananas, skin on potatoes) documented in this [facility]Prem[facility] Work Phone: [phone]) 407-965609-07-2023 Evaluation note* Encounter Date Diagnosis Assessment Notes Treatment Notes Treatment Clinical Notes Jan, Bronchitis (ICD-10 - J40) Discussed diagnosis with patient. Patient to take antibiotic daily with food as prescribed. Finish entire course of antibiotic. Proair inhaler sent today for patient to use PRN cough/wheezing/short ness of breath. Xhyo-doc-yugehzk antipyretics as needed. Warning signs and symptoms reviewed with patient today. Patient to go immediately to the ER should she experience any of these. Patient to notify office should her symptoms persist and not improve. Patient verbalizes understanding and agrees to treatment plan. [employer] Other 08-29-2023 Evaluation note* Encounter Date Diagnosis Assessment Notes Treatment Notes Treatment Clinical Notes Dec, Bronchitis (ICD-10 - J40) Discussed diagnosis with patient. Finish entire course of antibiotic. Proair inhaler sent today for patient to use PRN cough/wheezing/short ness of breath. Tessalon Pearles ordered to take as needed for cough. Increase fluids and rest. Shqa-lzm-oslrhbs antipyretics as needed. Warning signs and symptoms reviewed with patient today. Patient to go immediately to the ER should she experience any of these. Patient to notify office should her symptoms persist and not improve. Patient verbalizes understanding and agrees to treatment plan. [employer] Other 08-22-2023 Evaluation note* Encounter Date Diagnosis Assessment Notes Treatment Notes Treatment Clinical Notes Dec, Acute pain of right shoulder (ICD-10 - M25.511) Check xray. Add meds for pain relief and muscle relaxation. Will call pt w xray results. Dec, Chest congestion (ICD-10 - R09.89) Start w CXR and assess for pneumonia - will base treatment on CXR results later today. [employer] Other 02-16-2023 NoteCONSULTATION CONSULTATION DATE: 06/20/2022 HISTORY [...] be followed up in the office thereafter.[facility] [id number] NoteCONSULTATION CONSULTATION DATE: 05/23/2022 HISTORY OF PRESENT [...] be followed up in the clinic thereafter.[facility] HospitalCngiljoc02-02-2850 Evaluation note* Encounter Date Diagnosis Assessment Notes Treatment Notes Treatment Clinical Notes May, Vitamin D deficiency (ICD-10 - E55.9) [employer] Other 01-17-2023 Evaluation note* Encounter Date Diagnosis [...] - I43) Reviewed notes from her specialist [employer] Other 12-06-2022 NoteCONSULTATION CONSULTATION DATE: 04/09/2022 CHIEF [...] was encouraged to follow up with the wire wrapping machine operator with regards to her pacemaker. The patient is looking to schedule herself with regards to a physical and blood work by Dr. Pereira. CC: Anupam Pereira M.D.[facility] HospitalCmvxmaun21-07-0563 NotePROCEDURE: XR FINGER MIN 2 VIEWS COMPARISON: None. HISTORY: Acquired deformity of right finger FINDINGS: BONES:Persistent flexion of the fourth finger. No acute fracture or dislocation SOFT TISSUES:Soft tissue swelling EFFUSION:None visible. OTHER: Negative. IMPRESSION: Soft tissue swelling, no acute fracture Electronically authenticated by: CECY CHRISTIAN Date: 2022-02-05 07:14[facility]03-31-2022 NoteElectrophysiology Procedure TestingPlease click on the link to view the study images (Normal)[facility] 250 DO Work Phone: 1(422) 355-879703-31-2022 NoteElectrophysiology Procedure Testing Please click on the link to view the study images (Normal)[facility] 250 DO Work Phone: [phone]) [phone] NoteElectrophysiology Procedure Testing Please click on the link to view the study images (Normal)-[facility]-Asa Husam 3 DO Work Phone: [phone]) [phone] NoteElectrophysiology Procedure Testing Please click on the link to view the study images (Normal)-[facility]- [place] 320 DO Work Phone: Chief complaint+Reason for visit Narrative* Chief Complaint headache, back pain, sore throat, ear pain Memory Concerns Reason for Visit COVID-19 [facility] Work Phone: Evaluation noteNo assessment information available [facility] Work Phone: Evaluation noteNo InformationNort [employer] Other Evaluation note* Diagnosis ICD (implantable cardioverter-defibrillator) in place- Primary Morbid obesity (CMS/HCC) Morbid obesity Chronic systolic congestive heart failure (CMS/HCC) Cardiomyopathy, unspecified type (CMS/HCC) Dyspnea on exertion Other dyspnea and respiratory abnormality Obstructive sleep apnea syndrome in adult Other fatigue documented in this encounter [facility] Work Phone: Evaluation note* Diagnosis ICD (implantable [...] discuss treatment options documented in this encounter [facility] Work Phone: Evaluation note* Diagnosis Cardiomyopathy, unspecified type (CMS/HCC)- Primary ICD (implantable cardioverter-defibrillator) in place Obstructive sleep apnea syndrome in adult Class 2 obesity without serious comorbidity with body mass index (BMI) of 37.0 to 37.9 in adult, unspecified obesity type documented in this encounter [facility] Work Phone: Evaluation note* Diagnosis ICD (implantable cardioverter-defibrillator) in place documented in this encounter [facility] Work Phone: Evaluation note* Diagnosis Onset Date Resolution Status COVID-19 [facility] Work Phone: Evaluation note* Diagnosis Cardiomyopathy, unspecified type (Multi) Chronic systolic congestive heart failure (Multi) ICD (implantable cardioverter-defibrillator) in place Obstructive sleep apnea syndrome in adult Fatigue, unspecified type Never smoked cigarettes Class 2 obesity without serious comorbidity with body mass index (BMI) of 37.0 to 37.9 in adult, unspecified obesity type documented in this encounter [facility] Work Phone: Evaluation note* Diagnosis ICD (implantable cardioverter-defibrillator) in place- Primary Chronic systolic congestive heart failure Fatigue, unspecified type Obstructive sleep apnea syndrome in adult Never smoked cigarettes BMI 38.0-38.9,adult Class 2 obesity documented in this encounter [facility] Work Phone: History general Narrative - Reported* [...] ABLATION 06/2016 Hospitalization History See Sx Hx [employer] Other Hisuysv general Narrative - Reported* Type Description Date [...] Hospitalization History See Sx Hx Hospitalization History [facility] 06/03/22 [facility] charming charlie Other Reason for referral (narrative)* Consultation (Routine) - Authorized Specialty Diagnoses / Procedures Referred By Contac t Referred To Contact Cardiology Diagnoses ICD (implantable cardioverter-defibrillator ) in place Procedures Follow Up In Cardiology Maurizio Jorgensen APRN-[employer]OR[employer] [address] [facility], [address] [address] Daphne Mayes MD [address] [facility], [address] [address] Referral ID Status Reason Start Date Expiration Date V isits Requested Visits Authorized [id number] Authorized 02/25/2023 02/25/2024 1 1 [facility] Work Phone: Reason for referral (narrative)* Consultation (Routine) - Authorized Specialty Diagnoses / Procedures Referred By Contac t Referred To Contact Cardiology Diagnoses Cardiomyopathy, unspecified type (CMS/HCC) Procedures Follow Up In Cardiology Lupe Boswell MD [address] [facility] [address], [address] [address] Lupe Boswell MD [address] [facility] [address], [facility] [address] [place] [address] Referral ID Status Reason Start Date Expiration Date V isits Requested Visits Authorized [id number] Authorized 05/12/2023 05/11/2024 1 1 [facility] Work Phone: Rewfaf for referral (narrative)* Consultation (Routine) - Authorized Specialty Diagnoses / Procedures Referred By Talha shea Referred To Contact Cardiology Diagnoses Chronic systolic congestive heart failure (Multi) Procedures Follow Up In Cardiology Lupe Boswell MD [address] [facility] [address], [place] [address] [place] [address] Lupe Boswell MD [address] [facility] [address], [place] [address] [place] [address] Referral ID Status Reason Start Date Expiration Date V isits Requested Visits Authorized [id number] Authorized 11/18/2023 11/17/2024 1 1 [facility] Work Phone: Rerqxi for visit Narrative* Imaging (Routine) - Pending Review Specialty Diagnoses / Procedures Referred By Talha shea Referred To Contact Cardiology Diagnoses ICD (implantable cardioverter-defibrillator) in place Procedures Cardiac Device Check - In Clinic Daphne Mayes MD [address] [facility] Medical Office [facility], [place] [address] [place] [address] Phone: tel: fax: Referral ID Status Reason Start Date Expiration Date Visits Requested Visits Authorized [id number] Pending Review Perform Procedure 08/29/2023 08/28/2024 52 52 [facility] Work Phone: Summary Purpose Family History Unknown Family Member Name Dates Details Family [...] Unknown brother Diabetes mellitus Unknown Advance Directives Advance Directive Response Recorded Date/ Time Advance Directives No March 11, 2019 3:45pm Advance Directive Response Recorded Date/ Time Advance Directives No March 11, 2019 2:45pm Chief Complaint and Reason for Visit Chief Complaint defib machine issues i80.22 z95.810 z00.00 z95.810-rapid Chief Complaint defib machine issues Chief Complaint cardiomyopathy Chief Complaint [facility] Chief Complaint defib machine issues headache, back pain, sore throat, ear pain Chief Complaint headache, back pain, sore throat, ear pain Memory Concerns cardiomyopathy CC Adult Risk Stratification Reason for Visit COVID-19 Chief Complaint Admit Date Memory Concerns March 02, 2024 1 0:47am cardiomyopathy March 03, 2024 1 0:19am CC Adult Risk Stratification February 12:02pm [facility] May 31 11:18am Reason for Visit Admit Date Depression March 02, 2024 1 0:47am Chief Complaint Admit Date [facility] May 31 11:18am defib machine issues June 03, 2024 2:28pm Reason for Visit Admit Date Depression May 31, 2024 1 1:18am Heart failure May 31, 2024 1 1:18am Impaired fasting glucose May 31, 025 11:18am Obesity, Class II, BMI 35-39.9 May 062024 11:18am Obstructive sleep apnea May 31 11:18am Osteoarthritis May 31, 2024 1 1:18am Chief Complaint Patient here S/P gen change. Done by Dr. Mayes at [facility] on 07/19/2021. Dr. Gaudencio Mendoza MD [...] AICD, device is assessed by electrophysiology at [facility], had recent battery change with no complications. * 3 cardiac catheterization 7 years ago at [facility] was normal * 4 extreme fatigue of [...] AICD, device is assessed by electrophysiology at [facility], had recent battery change with no complications. * 3 cardiac catheterization 7 years ago at [facility] was normal * 4 extreme fatigue of [...] AICD, device is assessed by electrophysiology at [facility], had recent battery change with no complications. * 3 cardiac catheterization 7 years ago at [facility] was normal * 4 extreme fatigue of [...] AICD, device is assessed by electrophysiology at [facility] * 3 cardiac catheterization 7 years ago at [facility] was normal * 4 extreme fatigue of [...] AICD, device is assessed by electrophysiology at [facility] * 3 cardiac catheterization 7 years ago at [facility] was normal * 4 extreme fatigue of [...] scheduled. We will arrange for that at [facility]. Her weight is unchanged from [...] AICD, device is assessed by electrophysiology at [facility] * 3 cardiac catheterization 7 years ago at [facility] was normal * 4 fatigue of unknown etiology. Improved with increased activities * 5 sleep apnea supposed to be on CPAP machine, encouraged patient to follow-up with a sleep lab to adjust the device. * 6 severe obesity, recommended low-calorie diet and more regular exercise. Reason for Referral Specialty Diagnoses / Procedures Referred By Contac t Referred To Contact Cardiology Diagnoses ICD (implantable cardioverter-defibrillator) in place Procedures Cardiac Device Check - Remote Daphne Mayes MD [facility] [address] [address] Referral ID Status Reason Start Date Expiration Date Visits Requested Visits Authorized [id number] Pending Review Perform Procedure 08/29/2023 08/28/2024 52 52 Specialty Diagnoses / Procedures Referred By Contac t Referred To Contact Cardiology Diagnoses ICD (implantable cardioverter-defibrillator) in place Procedures Cardiac Device Check - In Clinic Daphne Mayes MD [facility] [address] [address] Referral ID Status Reason Start Date Expiration Date Visits Requested Visits Authorized [id number] Pending Review Perform Procedure 08/29/2023 08/28/2024 52 52 Specialty Diagnoses / Procedures Referred By Contac t Referred To Contact Diagnoses ICD (implantable cardioverter-defibrillator) in place Procedures ECG 12 lead (Clinic Performed) Daphne Mayes MD [address] [facility] [address], [address] [place] [address] Referral ID Status Reason Start Date Expiration Date V isits Requested Visits Authorized [id number] Authorized 08/29/2023 08/28/2024 1 1 Additional Source Comments INFORMATION SOURCE (unrecogn ized section and content) DATE CREATED AUTHOR 10/24/2017 [facility] DATE CREATED AUTHOR AUTHOR'S ORGANIZ ATION 11/13/2018 [facility] DATE CREATED AUTHOR AUTHOR'S ORGANIZ ATION 08/02/2020 [facility] DATE CREATED AUTHOR AUTHOR'S ORGANIZ ATION 08/22/2022 [facility] DATE CREATED AUTHOR AUTHOR'S ORGANIZ ATION 10/14/2022 [facility] DATE CREATED AUTHOR AUTHOR'S ORGANIZ ATION 11/23/2022 [facility] DATE CREATED AUTHOR AUTHOR'S ORGANIZ ATION 12/10/2022 [facility] DATE CREATED AUTHOR AUTHOR'S ORGANIZ ATION 09/03/[address] [facility] DATE CREATED AUTHOR AUTHOR'S ORGANIZ ATION 03/03/2024 [facility] DATE CREATED AUTHOR AUTHOR'S ORGANIZ ATION 03/05/2024 [facility] DATE CREATED AUTHOR AUTHOR'S ORGANIZ ATION 05/23/2024 [facility] DATE CREATED AUTHOR AUTHOR'S ORGANIZ ATION 06/05/2024 [facility] Care Teams (unrecognized sec tion and content) Team Status: Active Member Role Status Dates Anupam Pereira MD Primary Care Provider Active Team Status: Active Member Role Status Dates Anupam Pereira MD Primary Care Provide r, Attending Provider Active Start: May 20, 2024 Team Status: Inactive Member Role Status Dates Anupam Peerira MD Primary Care Provider Active Start: May 31, 2024 End: May 31, 2024 Rosemarie Lea APRN Attending Provider Active Start: May 31, [...] Active Daphne Mayes MD Attending Provider Active Hand Leather Trimmer Relationship Specialty Start Date End Date Anupam Pereira MD [address] [place] [id number] PCP - General 09/30/19 Team Status: Inactive Member Role Status Dates Anupam Pereira MD Attending Provider Active St art: May 08, 2023 End: May 08, 2023 Team Status: Inactive Member Role Status Dates Anupam Pereira MD Primary Care Provider Active Start: May 28, 2023 End: May 28, 2023 Gaudencio Mendoza MD Attending Provider Active Start: May 28, 2023 End: May 28, 2023 Hand Leather Trimmer Relationship Specialty Start Date End Date Anupam Pereira MD [address] [place] [address] PCP - General Family Medicine 04/16/23 Maurizio Jorgensen APRN-[employer] [address] [facility], [address] [place] [address] Nurse Practitioner Cardiology 03/07/23 Hand Leather Trimmer Relationship Specialty Start Date End Date Anupam Pereira MD [address] [place] [address] [place] [address] PCP - General Family Medicine 04/16/23 Maurizio Jorgensen NET DEVELOPER WITH [employer] [address] [place] [address], [address] [place] [address] Nurse Practitioner Cardiology 03/07/23 Team Status: Inactive Member Role Status Dates Anupam Pereira MD Primary Care Provider Active Start: December 02, 2023 End: December 02, 2023 Gaudencio Mendoza MD Attending Provider Active Start: December 02, 2023 End: December 02, 2023 Hand Leather Trimmer Relationship Specialty Start Date End Date Anupam Pereira MD [facility] [place] [address] PCP - General Family Medicine 04/16/23 Maurizio Jorgensen APRN-[employer] [address] [place] [address], [address] [address] Nurse Practitioner Cardiology 03/07/23 Team Status: Active Member Role Status Dates Anupam Pereira MD Primary Care Provider Active Start: March 03, 2024 Lupe Boswell MD Other Provider Active Start: March 03, 2024 Chasity Harper MD Attending Provider Active Start: March 03, 2024 Team Status: Active Member Role Status Dates Anupam Pereira MD Primary Care Provide r, Attending Provider Active Start: March 03, 2024 Hand Leather Trimmer Relationship Specialty Start Date End Date Anupam Pereira MD [address] [place] [address] PCP - General Family Medicine 04/16/23 Maurizio Jorgensen, NET DEVELOPER WITH [employer] [address] [facility], [address] [address] Nurse Practitioner Cardiology 03/07/23 Hand Leather Trimmer Relationship Specialty Start Date End Date Anupam Pereira MD [address] [place] [address] PCP - General Family Medicine 04/16/23 Daphne Mayes MD [address] [facility], [address] [address] Nuclear Pharmacist Electrophysiology 03/24/24 Goals (unrecognized section and content) Goals may [...] Procedures Follow Up In Cardiology Maurizio Jorgensen, NET DEVELOPER WITH [employer] [address] [facility], [address] [address] Daphne Mayes MD [address] [facility], [address] [address] Referral ID Status Reason Start Date Expiration Date V isits Requested Visits Authorized [id number] Authorized 02/25/2023 02/25/2024 1 1 Reason Comments Follow-up 6 month Reason Comments Follow-up 6 months Specialty Diagnoses / Procedures Referred By Contac t Referred To Contact Cardiology Diagnoses Cardiomyopathy, unspecified type (Multi) Procedures Follow Up In Cardiology Lupe Boswell MD [address] [place] [address] 2, [address] [address] Lupe Boswell MD [address] [place] [address] 2, [address] [address] Referral ID Status Reason Start Date Expiration Date V isits Requested Visits Authorized [id number] Authorized 05/12/2023 05/11/2024 1 1 Specialty Diagnoses / Procedures Referred By Contac t Referred To Contact Cardiology Diagnoses Chronic systolic congestive heart failure Procedures Follow Up In Cardiology Lupe Boswell MD [address] [place] [address] 2, [address] [address] Phone: tel: fax: Lupe Boswell MD [address] [place] [address] 2, [address] [address] Phone: tel: fax: Referral ID Status Reason Start Date Expiration Date V isits Requested Visits Authorized [id number] Authorized 11/18/2023 11/17/2024 1 1 FOR RECORDS PERTAINING TO PATIENTS [...] BE BASED ON THE PRIMARY CLINICAL RECORDS. [employer]. provides no warranty or guarantee of the accuracy or completeness of information in this document.
== END 2024-06-14 09:10 | disposition home or self-care (01) ==
LOC: EC 09:09
PROVIDERS: PCP Family Medicine; Visit Provider Orthopaedic Surgery
DX: S52.591D Other fractures of lower end of right radius, subsequent encounter for closed fracture with routine healing (principal)
CPT/HCPCS: 73110

== ENCOUNTER 2024-06-21 10:22 | Outpatient (OUT) | payer MEDICARE, MEDICAID, SELFPAY ==
--- NOTE | 2024-06-21 | XR_ITS ---
The [address] [address] Patient Name: NYA REDMOND MRN: [id number] date: 1955 Sex: F Assigned Patient Location: Current Patient Location: Accession/Order Number: [id number] Exam Date: 06/21/2024 11:05 Report Date: 06/21/2024 17:50 At the request of: MAREN ARCHER Procedure: XR wrist RT min 3V EXAM: XR wrist RT min 3V HISTORY: RIGHT WRIST PAIN. COMPARISON: 06/14/2024 and priors. FINDINGS: 3 views of the right wrist were obtained. Patient is imaged in a splint obscure underlying fine bony detail. No definite fracture or dislocation. There is ulnar minus variance which appears similar. There is dorsal soft tissue thickening. Previously noted calcification is obscured by casting material. XR/XR wrist RT min 3V IMPRESSION: Soft tissue edema without visible bony abnormality in the right wrist. Previously noted soft tissue calcification is obscured by casting material. Electronically authenticated by: MAREN KIMBROUGH Date: 06/21/2024 17:50
== END 2024-06-21 10:23 | disposition home or self-care (01) ==
LOC: EC 10:22
PROVIDERS: PCP Family Medicine; Visit Provider Orthopaedic Surgery
DX: S52.591D Other fractures of lower end of right radius, subsequent encounter for closed fracture with routine healing (principal)
CPT/HCPCS: 73110

== ENCOUNTER 2024-07-11 17:31 | Emergency (ER) | payer MEDICARE, MEDICAID, SELFPAY ==
--- OUTSIDE RECORDS SUMMARY | 2024-07-11 17:40 | XMS_ITS | CCD ---
Author Organization [facility] Care Team Providers Care [employer] Team Leader Name Role Phone Hampole, Haile V Unavailable Unavailable Hampole, Haile V Unavailable Unavailable Hampole, Haile V Unavailable Unavailable ANUPAM PEREIRA~[phone] UNKNOWN Unavailable Unavailable Harsh Lange Unavailable Unavailable Harsh Lange Unavailable Unavailable Anupam Pereira Unavailable Unavailable Unavailable MD Anupam Pereira Primary Care Provider MD Daphne Mayes Attending Provider [phone] Unavailable Unavailable MD Anupam Pereira Primary [...] Unavailable PEREIRA, DR ANUPAM Kurtz Admitting Unavailable WOLCOTT, DR CECY Wade Consulting Unavailable ZIEBER, DR [...] Randall, MD Anupam Kurtz Primary Care Provider [phone] MD Daphne Mayes Attending Provider Boswell, Dr. [...] Unav ailable Boswell, Dr. Lupe Carrion Referring Akthya vailable Pereira, Dr. Anupam Tam Primary Care Unav ailable Boswell, Dr. Lupe Carrion Attending Kathya vailable Boswell, Dr. Lupe Carrion Referring Kathya vailable Pereira, Dr. Anupam Tam Primary Care Unav ailable Boswell, Dr. Lupe Carrion Attending Kathya vailable Pereira, Dr. Anupam Tam Primary Care Unav ailable Huber, Dr. Daphne Canada Attending Unavailab le Randall, Dr. Anupam Tam Primary Care Unav zelalem Pereira, Dr. Anupam Tam Primary Care Unav Anupam Marley MD Primary Care Provider MD Anupam Pereira Primary Care Provider MD Gaudencio Mendoza Attending Provider Joslyn SULLIVAN-PAMELA, Maurizio E Unavailable Anupam Pereira MD Primary Care Provider ANUPAM PEREIRA Primary Care Unavailable Anupam Pereira MD Primary Care Provider MD Anupam Pereira Primary Care Provider MD Gaudencio Mendoza Attending Provider DAPHNE MAYES Referring Unavailable ANUPAM PEREIRA Primary Care Unavailable LUPE BOSWELL Referring Unavailable ANUPAM PEREIRA Primary Care Unavailable Anupam Pereira [...] Primary Care Unavailable Daphne Mayes MD Unavailable DAPHNE MAYES Attending Unavailable MAURIZIO JORGENSEN Referring Unavaila ble ANUPAM PEREIRA Primary Care Unavailable LUPE BOSWELL Attending Unavailable LUPE BOSWELL Referring Unavailable ANUPAM PEREIRA Primary Care Unavailable LUPE BOSWELL Attending Unavailable LUPE BOSWELL Referring Unavailable ANUPAM PEREIRA Primary Care Unavailable Allergies Allergy Classification Reported Allergen(s) Allergy Type Date of Onset Reaction(s) Facility (1 source) Adhesive Tape; Translations: [Tape] Propensity to adverse reactions (disorder) [facility] Repository (8 sources) Desonide Drug Allergy 06-12-19 16 Unknown, Rash [facility] Repository (1 source) Latex Drug allergy (disorder) [facility] Repository (1 source) patient allergy list reviewed by nurse or physicia Propensity to adverse reactions 08-31-19 15 Comment:Done [facility] Other (1 source) Allergies Reconciled Propensity to adverse reactions Unknown [facility] Other (10 sources) Adhesive agent; Translations: [ADHESIVE] Drug Intolerance 10-26-19 14 Unknown [facility] (2 sources) Adhesive Tape Drug allergy (disorder) 05-28-19 24 [facility] Repository Medications Current Medications Medication Drug [...] Start: 12-31-2022 take 1 capsule by mo [facility] every eight hours Benzonatate 200 MG 1 [...] Discontinued (Dose adjustment) take 1 tablet by [facility] every twelve hours Carvedilol 3.125 MG 1 [...] hydrochloride 500 mg extended release oral tablet (3 sources) Biguanide Start: 05-31-2024 take 1 tablet [...] Jan, Active nebivolol 2.5 mg oral tablet (2 sources) Start: 06-10-2024 End: 06-10-2025 take 1 tablet by mouth once daily Nebivolol 2.5 mg tablet Active 2.5 MG PO Daily June 14, 2024 12:00am omeprazole 20 mg delayed release oral capsule [...] Start: 12-24-2022 take 2 tablets by mo ut every twenty-four hours predniSONE 20 MG 2 tablets Orally Once a day for 5 days Dec, Active sertraline 50 mg oral tablet (20 [...] 2024 2:49pm take 1 tablet by yuliya th twice daily sertraline (Zoloft) 50 mg tablet Take 1 tablet (50 mg) by mouth 2 times a day. Active take 2 tablets by mo uth once daily sertraline (Zoloft) 50 mg tablet Take 2 tablets (100 mg) by mouth once daily. Active take 1 tablet by yuliya th once daily Sertraline HCl 100 MG TAKE 1 TABLET BY MOUTH EVERY DAY for 90 Active take 1 tablet by yuliya th once daily Sertraline HCl - 50 MG Oral Tablet TAKE 1 TABLET DAILY DIRECTED. Quantity: 0 Refills: 0 Ordered: 09-Aug-2021 DO Active tiZANidine 4 mg oral tablet (7 sources) Central alpha-2 Adrenergic Agonist tiZANidine HCl 4 MG TAKE 1 TABLET BY MOUTH THREE TIMES A DAY NEEDED FOR 30 DAYS for 20 Active valsartan 80 mg oral tablet (2 sources) Angiotensin 2 Receptor Roxy Start: 06-10-2024 End: 06-10-2025 take 1 tablet by mouth once daily Valsartan 80 mg tablet Active 80 MG PO Daily June 14, 2024 12:00am Completed/Discontinued Medications Medication Drug Class(es) Dates Sig [...] Albuterol Sulfate 90 mcg/actuation HFA aerosol inhaler (3 sources) Start: 06-20-2023 End: 12-22-2023 take 1 [...] every week Vitamin D (Ergocalciferol) 1.25 MG (51382 UT) 1 capsule Orally weekly for 90 [...] (150 mg x 2)-100 mg tablets,dose pack (6 sources) Start: End: Nirmatrelvir-Ritonavi r (Paxlovid) 300 [...] ritonavir twice daily for 5 days PO sacubitril 49 mg / valsartan 51 mg oral tablet (20 sources) Angiotensin 2 Receptor Roxy Start: 10-09-2021 End: 06-14-2024 take 1 tablet by mouth twice daily Sacubitril-Valsartan (Entresto) 49-51 mg tablet Discontinued 1 TAB PO Twice daily December 21, 2023 11:00pm June 14, 2024 1:32pm take 1 tablet by mouth twice maura ly Entresto 24-26 MG TAKE 1 TABLET BY MOUTH TWICE A DAY for 90 Active ENTRESTO 24 mg/2 6 mg 1 orally twice a day Active traMADol hydrochloride 50 mg oral tablet (5 [...] anxiety disorder] Onset: 08-30-2014 Chronic Cardiac dysrhythmias (3 sources) Atrial fibrillation; Translations: [Unspecified atrial fibrillation] [...] Onset: 05-21-2022 Episodic Diabetes mellitus without complication (18 sources) Impaired fasting glycemia; Translations: [Impaired fasting [...] Chronic Other nutritional; endocrine; and metabolic disorders (11 sources) Obese class II; Translations: [Body mass index (BMI) 38.0-38.9, adult] 05-31-2024 Chronic Other nutritional; endocrine; and metabolic disorders (2 sources) Body mass index 30+ - obesity; Translations: [Body mass index (BMI) 38.0-38.9, adult] Onset: 06-10-2024 06-10-2024 Chronic Other nutritional; endocrine; and metabolic disorders (2 sources) Body mass index (BMI) 38.0-38.9, adult; Translations: [Body mass index (BMI) 38.0-38.9, adult] Onset: 06-10-2024 Chronic Other nutritional; endocrine; and metabolic disorders [...] codes; unclassified (2 sources) Obstructive sleep apnea syndrome; Translations: [Obstructive sleep apnea (adult) (pediatric)] 05-31-2024 Chronic Residual codes; unclassified (4 sources) Obstructive sleep apnea (adult) (pediatric); Translations: [Obstructive sleep apnea (adult)(pediatric)] Onset: 02-22-2023 05-31-2024 Chronic Residual codes; unclassified (9 sources) [...] infection, site not specified] Episodic Viral infection (7 sources) Disease caused by 2019-nCoV; Translations: [COVID-19] [...] and fatigue] Onset: 09-07-2021 Episodic Mood disorders (6 sources) Mood disorders [...] Test Name Value Interpretation Reference Range Facility HbA1c HPLC (Bld) [Mass fract ion]on 05-31-2024 HbA1c (Bld) [Mass fraction] Hemoglobin A1c/Hemoglobin.total in Blood by HPLC [facility] BASIC METABOLIC PANLon 05-20 Anion gap [Moles/Vol] 10 mmol/L Normal 5-15 [facility] Comment on above: Performed By: #### B MP #### [facility] ([id number]) [address], [address] [place] [address] Calcium [Mass/Vol] 9.3 mg/dL [facility] Comment on above: Performed By: #### B MP #### [facility] ([id number]) [address], [address] [place] [address] Chloride [Moles/Vol] 105 mmol/L [facility] Comment on above: Performed By: #### B MP #### [facility] ([id number]) [address], [address] [place] [address] CO2 [Moles/Vol] 26 mmol/L [facility] Comment on above: Performed By: #### B MP #### [facility] ([id number]) [address], [address] [place] [address] Creatinine [Mass/Vol] 0.73 mg/dL [facility] Comment on above: Result Comment: METH OD TRACEABLE TO IDMS STANDARD Performed By: #### B MP #### [facility] ([id number]) [address], [address] [place] [address] GFR/1.73 sq M.predicted among non-blacks MDRD (S/P/Bld) [Vol rate/Area] 89 mL/min/{1.73_m2} Normal >59 [facility] Comment on above: Result Comment: Reported eGFR is based on the CKD-EPI 2020 equation that does not use a race coefficient. Performed By: #### B MP #### [facility] ([id number]) [address], [address] [place] [address] Glucose [Mass/Vol] 121 mg/dL [facility] Comment on above: Performed By: #### B MP #### [facility] ([id number]) [address], [address] [place] [address] Potassium [Moles/Vol] 3.8 mmol/L [facility] Comment on above: Performed By: #### B MP #### [facility] ([id number]) [address], [address] [place] [address] Sodium [Moles/Vol] 141 mmol/L [facility] Comment on above: Performed By: #### B MP #### [facility] ([id number]) [address], [address] [place] [address] Urea nitrogen [Mass/Vol] 19 mg/dL [facility] Comment on above: Performed By: #### B MP #### [facility] ([id number]) [address], [address] [place] [address] No Panel Informationon 05-20 Estimated GFR (Non- 89 mL/min [facility] Cardiac Device Check - In Cl inicon 03-01-2024 [facility] Work Phone: Radiology Study observation (narrative) [facility] Work Phone: Influenza virus B Ag [Presen ce] in Upper respiratory specimen by Rapid immunoassayon 12-22-2023 FLUBV Ag IA.rapid Ql (Nph) Negative [facility] No Panel Informationon 12-21 Influenza Type A (Rapid) Negative [facility] POC SARS CoV-2 Antigen Positive [facility] Basic metabolic 2000 panelon 08-29-2023 Anion gap [Moles/Vol] 11 mmol/L Normal 10-20 [facility] Comment on above: Performed By: #### 2 4321-2 #### PONCEIBRAMONA ANDREA MARJAN ([id number]) [facility] ([facility]) [address] [place] [address] Calcium [Mass/Vol] 9.5 mg/dL Normal 8.6-10.[address] [facility] Comment on above: Performed By: #### 2 4321-2 #### PONCEIBELISUZE ANDREA MARJAN ([id number]) [facility] ([facility]) [address] [place] [address] Chloride [Moles/Vol] 107 mmol/L Normal 98-107 [facility] Comment on above: Performed By: #### 2 4321-2 #### PONCEIBELISUZE ANDREA MARJAN ([id number]) [facility] ([facility]) [address] [place] [address] CO2 [Moles/Vol] 29 mmol/L Normal 21-32 [facility] Comment on above: Performed By: #### 2 4321-2 #### PONCEIBELISUZE ANDREA MARJAN ([id number]) [facility] ([facility]) [address] [place] [address] Creatinine [Mass/Vol] 0.75 mg/dL Normal 0.50-1.05 [facility] Comment on above: Performed By: #### 2 4321-2 #### PONCEIBELISUZE ANDREA MARJAN ([id number]) [facility] ([facility]) [address] [place] [address] Glomerular filtration rate/1.73 sq M.predicted 87 mL/min/1.73m*2 Normal >60 [facility] Comment on above: Result Comment: Calc ulations of estimated GFR are performed using the 2020 CKD-EPI Study Refit equation without the race variable for the IDMS-Traceable creatinine methods. https://jasn.asnjournals.org/content//ASN.0141147 988 Performed By: #### 2 4321-2 #### PONCEIBELISUZE ANDREA MARJAN ([id number]) [facility] ([facility]) [address] [place] [address] Glucose [Mass/Vol] 105 mg/dL High 74-[address] [facility] Comment on above: Performed By: #### 2 4321-2 #### ANAIBELISUZE LAWSANDREA MARJAN ([id number]) [facility] ([facility]) [address] [place] [address] Potassium [Moles/Vol] 4.4 mmol/L Normal 3.5-5.3 [facility] Comment on above: Performed By: #### 2 4321-2 #### ANAIBELISUZE ANDREA MARJAN ([id number]) [facility] ([facility]) [address] [place] [address] Sodium [Moles/Vol] 143 mmol/L Normal 136-[address] [facility] Comment on above: Performed By: #### 2 4321-2 #### ANAIBELISUZE LAWSANDREA MARJAN ([id number]) [facility] ([facility]) [address] [place] [address] Urea nitrogen [Mass/Vol] 19 mg/dL Normal 6-23 [facility] Comment on above: Performed By: #### 2 4321-2 #### ANAIBELISUZE ANDREA MARJAN ([id number]) [facility] ([facility]) [address] [place] [address]19 ECG 12 lead (Clinic Performe d)on 08-29-2023 See scan [facility] Work Phone: Echocardiogramon 11-22-[address], [address] [place] [address] TRANSTHORACIC ECHOCARDIOGRAM REPORT Patient Name: NYA Hayward Physician: [id number] Lupe Boswell MD, [facility] Study Date: 11/22/2022 Referring LUPE BOSWELL Physician: MRN/PID: [id number] PCP: Anupam Pereira Accession/Order#: [id number] Department [facility] Location: Date of : 1955 Fellow: Gender: F Nurse: 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 Helper: Ashlyn Cam RDCS, RVT Height: 152.40 cm CC Report to: Weight: 91.17 kg Study Type: Echocardiogram BSA: 1.87 m2 Blood Pressure: 134 /62 mmHg Diagnosis/ICD: I50.22-Chronic systolic (congestive) heart failure (CHF); I42.9-Cardiomyopathy, unspecified Indication: AICD, WALDEMAR, Obesity Procedure/CPT: Echo Complete w Full Doppler-[id number] Study Detail: The following Echo studies were [...] 0.8 m/s (0.6-0.9m/s) PV Max P.3 mmHg [id number] Lupe Boswell MD, [facility] Electronically signed on 11/22/2022 at 1:01:56 PM Final Normal [facility] Office Visit (Cardiology)on 10-09-2022 Follow-up [...] visit. Echo Same meds Per Dr. Lupe Bosewll MD, schedule at [facility] for echo Follow up in [...] scheduled. We will arrange for that at [facility]. Her weight is unchanged from previously and [...] AICD, device is assessed by electrophysiology at [facility] 3?cardiac catheterization 7 years ago at [facility] was normal 4? fatigue of unknown [...] Recorded: 09Oct2022 10:59AM Heart Rate72, L Radial Jqbzsktg824, LUE, Sitting Pdknpfptu26, LUE, Sitting Height5 ft Yfqrhi328 lb BMI Fbkyeuewzd16.26 kg/m2 BSA Calculated1.87 Tobacco Useb) No PHQ-2 [...] Cardiovascular: c (more content not included)... Normal [facility] Tobacco Screening.on 023 Fall risk assessment a) No falls within the last year [facility] [address] DO Work Phone: Tobacco use status [facility] b) No [facility] [address] DO Work Phone: Tobacco Screening. Yes [facility] [address] DO Work Phone: CBC AUTO DIFFon 05-21-2022 BASO # 0.0 103/ul Normal 0.0-0.1 [facility] Comment on above: Performed By: #### C BC ####[facility] [address] [place], [place] [address]Oy. Phillip Mazariegos Basophils/100 WBC (Bld) 0.4 % Normal 0.2-2.0 [facility] Comment on above: Performed By: #### C BC ####[facility] [address] [place], [place] [address]XeBeau Mazariegos EO # 0.2 103/ul Normal 0.0-0.7 [facility] Comment on above: Performed By: #### C BC ####[facility] [address] [place] [id number]. Phillip Mazariegos Eosinophils/100 WBC (Bld) 2.0 % Normal 0.9-7.0 [facility] Comment on above: Performed By: #### C BC ####[facility] [address] [place] [address]Dr. Phillip Mazariegos Erythrocyte distribution width (RBC) [Ratio] 13.8 % Normal 11.0-15.0 [facility] Comment on above: Performed By: #### C BC ####[facility] [address] [place], [place] [address]Dr. Phillip Mazariegos Hematocrit (Bld) [Volume fraction] 36.3 % Normal 36.0-48.0 [facility] Comment on above: Performed By: #### C BC ####[facility] [address] [place], [place] [address]Dr. Phillip Mazariegos Hemoglobin (Bld) [Mass/Vol] 12.1 g/dL Normal 12.0-16.0 [facility] Comment on above: Performed By: #### C BC ####[facility] [address] [place], [place] [address]Dr. Phillip Mazariegos IG # 0.02 10e3/ul Normal 0.00-0.03 [facility] Comment on above: Performed By: #### C BC ####[facility] [address] [place], [place] [address]Dr. Phillip Mazariegos IG % 0.3 % Normal 0.0-0.5 [facility] Comment on above: Performed By: #### C BC ####[facility] [address] [place], [place] [address]Dr. Phillip Mazariegos LYMPH # 1.9 103/ul Normal 1.2-3.8 [facility] Comment on above: Performed By: #### C BC ####[facility] [address] [place], [place] [address]Dr. Phillip Mazariegos Lymphocytes/100 WBC (Bld) 25.7 % Normal 20.5-60.0 [facility] Comment on above: Performed By: #### C BC ####[facility] [address] [place] [address]Dr. Phillip Mazariegos MANUAL DIFF REQ NO Normal [facility] Comment on above: Performed By: #### C BC ####[facility] [address] [place] [address]Dr. Phillip Mazariegos MCH (RBC) [Entitic mass] 28.7 pg Normal 26.7-34.0 [facility] Comment on above: Performed By: #### C BC ####[facility] [address] [place], [place] [address]Dr. Phillip Mazariegos MCHC (RBC) [Mass/Vol] 33.3 g/dL Normal 29.9-35.2 [facility] Comment on above: Performed By: #### C BC ####[facility] [address] [place], [place] [address]Dr. Phillip Yair MCV (RBC) [Entitic vol] 86.0 fL Normal 81.0-99.0 [facility] Comment on above: Performed By: #### C BC ####[facility] [address] [place], [place] [address]Dr. Phillip Mazariegos MONO # 0.6 103/ul Normal 0.3-0.8 [facility] Comment on above: Performed By: #### C BC ####[facility] [address] [place] [address]Dr. Rerebrent Mazariegos Monocytes/100 WBC (Bld) 7.8 % Normal 1.7-12.0 [facility] Comment on above: Performed By: #### C BC ####[facility] [address] [place], [place] [address]Dr. Phillip Mazariegos NEUT # 4.7 103/ul Normal 1.4-6.5 [facility] Comment on above: Performed By: #### C BC ####[facility] [address] [place], [place] [address]Dr. Phillip Mazariegos Neutrophils/100 WBC (Bld) 63.8 % Normal 43.0-75.0 [facility] Comment on above: Performed By: #### C BC ####[facility] [address] [place] [address]Dr. Phillip Mazariegos Platelet mean volume (Bld) [Entitic vol] 9.5 fL Normal 9.5-13.5 [facility] Comment on above: Performed By: #### C BC ####[facility] [address] [place] [address]Dr. Phillip Mazariegos PLT 269 103/ul Normal 150-450 [facility] Comment on above: Performed By: #### C BC ####[facility] [address] [place] [address]Dr. Phillip Mazariegos RBC 4.22 106/ul Normal 4.20-5.40 [facility] Comment on above: Performed By: #### C BC ####[facility] [address] [place], [place] [address]Dr. Phillip Mazariegos WBC 7.4 103/ul Normal 4.0-11.0 [facility] Comment on above: Performed By: #### C BC ####[facility] [address] [place], [place] [address]Dr. Phillip Mazariegos FERRITINon 05-21-2022 Ferritin [Mass/Vol] 212.0 ng/mL Normal 8.0-252.0 [facility] Comment on above: Performed By: #### F ERR, VITB12, VITAD #### [facility] Laboratory [address] [place] [address] Dr. Phillip Mazariegos VITAMIN B12on 05-21-2022 Cobalamin (Vitamin B12) [Mass/Vol] 698.0 pg/mL Normal 193.0-986.0 [facility] Comment on above: Performed By: #### F ERR, VITB12, VITAD #### [facility] Laboratory [address] [place] [address] Dr. Phillip Mazariegos VITAMIN D 25 OHon 05-21-2022 VIT D 25-OH 28.1 ng/mL Normal [facility] Comment on above: Performed By: #### F ERR, VITB12, VITAD ####[facility] [address] [place], [place] [address]Dr. Phillip Mazariegos VIT D RANGES SEE BELOW Normal [facility] Comment on above: Result Comment: <20 ng/mL Vit D deficient 20 - <30 ng/mL Vit D insufficient 30 - 100 ng/mL Vit D sufficient >100 ng/mL Potential Toxicity Performed By: #### F ERR, VITB12, VITAD ####[facility] [address] [place] [address]Dr. Phillip Mazariegos PROF CHEM 8 (BAS METB)on Anion gap [Moles/Vol] 10.8 mmol/L Normal [facility] Comment on above: Performed By: #### B MP ####[facility] [address] [place], [place] [address]Dr. Phillip Mazariegos Calcium [Mass/Vol] 9.1 mg/dL Normal 8.5-10.1 [facility] Comment on above: Performed By: #### B MP ####[facility] [address] [place], [place] [address]Dr. Phillip Mazariegos Chloride [Moles/Vol] 108 mmol/L Critically high 98-107 [facility] Comment on above: Performed By: #### B MP ####[facility] [address] [place], [place] [address]Dr. Phillip Mazariegos CO2 [Moles/Vol] 29.6 mmol/L Normal 21.0-32.0 [facility] Comment on above: Performed By: #### B MP ####[facility] [address] [place], [place] [address]Dr. Phillip Mazariegos Creatinine [Mass/Vol] 0.85 mg/dL Normal 0.55-1.02 [facility] Comment on above: Performed By: #### B MP ####[facility] [address] [place], [place] [address]Dr. Phillip Mazariegos EGFR-AF TUNISIAN >60 Normal >=60 [facility] Comment on above: Performed By: #### B MP ####[facility] [address] [place], [place] [address]Dr. Phillip Mazariegos EGFR-NON AF TUNISIAN >60 Normal >=60 [facility] Comment on above: Performed By: #### B MP ####[facility] [address] [place], [place] [address]Vg. Rerebrent Yair Glucose [Mass/Vol] 90 mg/dL Normal 74-106 [facility] [place] [facility] Comment on above: Performed By: #### B MP ####[facility] Nq[address]uyfszt3883 [place], [place] [address]Jr. Phillip Mazariegos Potassium [Moles/Vol] 4.4 mmol/L Normal 3.5-5.1 [facility] Comment on above: Performed By: #### B MP ####[facility] [address] [place], [place] [address]Pe. Phillip Mazariegos Sodium [Moles/Vol] 144 mmol/L Normal 136-145 [facility] [place] [facility] Comment on above: Performed By: #### B MP ####[facility] [address] [place] [id number]. Phillip Mazariegos Urea nitrogen [Mass/Vol] 24.0 mg/dL Critically high 7.0-18.0 [facility] Comment on above: Performed By: #### B MP ####[facility] [address] [place] [id number]. Phillip Mazariegos Urea nitrogen/Creatinine [Mass ratio] 28.2 mg/mg Normal [facility] Comment on above: Performed By: #### B MP ####[facility] [address] [place] [id number]. Phillip Mazariegos Office Visit (Cardiology)on 04-17-2022 Follow-up [...] Metabolic Panel; Status:Active - Retrospective Authorization; Requested for:[id number]; Echocardiogram; Status:Hold For - Scheduling,Retrospective Authorization; Requested for:[id number]; Class 2 obesity with body mass index (BMI) of 39.0 to 39.9 in adult Healthy Weight Tips; Status:Complete - Retrospective Authorization; Done: [id number] Some eating tips that can help you lose weight.; Status:Complete - Retrospective Authorization; Done: [id number] Patient Instructions Please bring all medicines, vitamins, [...] AICD, device is assessed by electrophysiology at [facility] 3?cardiac catheterization 7 years ago at [facility] was normal 4?extreme fatigue of unknown [...] negative for complaint. Vitals Vital Signs Recorded: [id number] 11:16AM Heart Rate62, R Radial Yxlrchan944, LUE, Sitting Cclolcoty14, LUE, Sitting Height5 ft Jidwpk956 lb 5 oz BMI Idccumkreh74.32 kg/m2 BSA Calculated1.87 Tobacco Useb) No Falls [...] is normal (more content not included)... Normal [employer] Tobacco Screening.on 022 Fall risk assessment a) No falls within the last year [facility] [address] DO Work Phone: Tobacco use status [facility] b) No [facility] [address] DO Work [...] MAREN MARTEL Date: 2022-02-05 07:27 Normal The [facility] PROF CHEM 8 (BAS METB)on Anion gap [Moles/Vol] 12.0 mmol/L Normal [facility] Comment on above: Performed By: #### B MP #### [facility] Laboratory [address] [place] [address] Dr. Phillip Mazariegos Calcium [Mass/Vol] 9.1 mg/dL Normal 8.5-10.1 [facility] Comment on above: Performed By: #### B MP #### [facility] Laboratory [address] [address] [address] Phillip Mazariegos Chloride [Moles/Vol] 107 mmol/L Normal 98-107 [facility] Comment on above: Performed By: #### B MP #### [facility] Laboratory [address] [address] [address] Phillip Mazariegos CO2 [Moles/Vol] 27.0 mmol/L Normal 21.0-32.0 [facility] Comment on above: Performed By: #### B MP #### [facility] Laboratory [address] [address] [address] Phillip Mazariegos Creatinine [Mass/Vol] 0.89 mg/dL Normal 0.55-1.02 [facility] Comment on above: Performed By: #### B MP #### [facility] Laboratory [address] [address] [address] Phillip Mazariegos EGFR-AF TUNISIAN >60 Normal >=60 [facility] Comment on above: Performed By: #### B MP #### [facility] Laboratory [id number] Phillip Mazariegos EGFR-NON AF TUNISIAN >60 Normal >=60 [facility] Comment on above: Performed By: #### B MP #### [facility] Laboratory [address] [address] [address] Phillip Mazariegos Glucose [Mass/Vol] 109 mg/dL Critically high 74-106 [facility] Comment on above: Performed By: #### B MP #### [facility] Laboratory [address] [address] [address] Phillip Mazariegos Potassium [Moles/Vol] 4.0 mmol/L Normal 3.5-5.1 [facility] Comment on above: Performed By: #### B MP #### [facility] Laboratory [address] [address] [address] Phillip Mazariegos Sodium [Moles/Vol] 142 mmol/L Normal 136-145 [facility] Comment on above: Performed By: #### B MP #### [facility] Laboratory [address] [address] [address] Phillip Mazariegos Urea nitrogen [Mass/Vol] 19.0 mg/dL Critically high 7.0-18.0 [facility] Comment on above: Performed By: #### B MP #### [facility] Laboratory [address] [address] [address] Phillip Mazariegos Urea nitrogen/Creatinine [Mass ratio] 21.3 mg/mg Normal [facility] Comment on above: Performed By: #### B MP #### [facility] Laboratory [id number] Phillip Mazariegos Tobacco Screening.on 022 Adult depression screening assessment No [facility] [address] DO Work Phone: Adult depression screening assessment Yes [facility] [employer] donny Plumemr DO Work Phone: Fall risk assessment a) No falls within the last year [facility] [employer] Kavitha DO Work Phone: Tobacco use status [facility] b) No [facility] [employer] Kavitha DO Work Phone: Tobacco Screening. 3-Nearly every day [facility] [employer] Kavitha DO Work Phone: Tobacco Screening. 0-Not at all [facility] [employer] 250 DO Work Phone: Tobacco Screening. Very Difficult [facility] [employer] Kavitha DO Work Phone: CULTURE URINEon 09-09-2021 [...] F Trimethoprim/Sulfamethoxaz ole <=20 S F Normal [facility] Comment on above: Performed By: #### U RCX ####[facility] [address] [place], [place] [address]JxDr. Phillip Mazariegos CBC AUTO DIFFon 09-07-2021 BASO # 0.0 103/ul Normal 0.0-0.1 [facility] Comment on above: Performed By: #### C BC #### [facility] Laboratory [address] [address] [address] Phillip Mazariegos Basophils/100 WBC (Bld) 0.4 % Normal 0.2-2.0 [facility] Comment on above: Performed By: #### C BC #### [facility] Laboratory [address] [address] [address] Phillip Mazariegos EO # 0.1 103/ul Normal 0.0-0.7 [facility] Comment on above: Performed By: #### C BC #### [facility] Laboratory [address] [address] [address] Phillip Mazariegos Eosinophils/100 WBC (Bld) 1.9 % Normal 0.9-7.0 [facility] Comment on above: Performed By: #### C BC #### [facility] Laboratory [address] [place] [address] Dr. Phillip Mazariegos Erythrocyte distribution width (RBC) [Ratio] 13.4 % Normal 11.0-15.0 [facility] Comment on above: Performed By: #### C BC #### [facility] Laboratory [address] [address] [address] Phillip Mazariegos Hematocrit (Bld) [Volume fraction] 39.6 % Normal 36.0-48.0 [facility] Comment on above: Performed By: #### C BC #### [facility] Laboratory [address] [address] [address] Phillip Mazariegos Hemoglobin (Bld) [Mass/Vol] 13.0 g/dL Normal 12.0-16.0 [facility] Comment on above: Performed By: #### C BC #### [facility] Laboratory [address] [address] [address] Phillip Mazariegos IG # 0.04 10e3/ul Critically high 0.00-0.03 [facility] Comment on above: Performed By: #### C BC #### [facility] Laboratory [address] [place] [address] Dr. Phillip Mazariegos IG % 0.5 % Normal 0.0-0.5 [facility] Comment on above: Performed By: #### C BC #### [facility] Laboratory [address] [place] [address] Dr. Phillip Mazariegos LYMPH # 1.9 103/ul Normal 1.2-3.8 [facility] Comment on above: Performed By: #### C BC #### [facility] Laboratory [address] [place] [address] Dr. Phillip Mazariegos Lymphocytes/100 WBC (Bld) 26.2 % Normal 20.5-60.0 [facility] Comment on above: Performed By: #### C BC #### [facility] Laboratory [address] [place] [address] Dr. Phillip Mazariegos MANUAL DIFF REQ NO Normal [facility] Comment on above: Performed By: #### C BC #### [facility] Laboratory [address] [place] [address] Dr. Phillip Mazariegos MCH (RBC) [Entitic mass] 28.8 pg Normal 26.7-34.0 [facility] Comment on above: Performed By: #### C BC #### [facility] Laboratory [address] [place] [address] Dr. Phillip Mazariegos MCHC (RBC) [Mass/Vol] 32.8 g/dL Normal 29.9-35.2 [facility] Comment on above: Performed By: #### C BC #### [facility] Laboratory [address] [place] [address] Dr. Phillip Mazariegos MCV (RBC) [Entitic vol] 87.8 fL Normal 81.0-99.0 [facility] Comment on above: Performed By: #### C BC #### [facility] Laboratory [address] [place] [address] Dr. Phillip Mazariegos MONO # 0.5 103/ul Normal 0.3-0.8 [facility] Comment on above: Performed By: #### C BC #### [facility] Laboratory [address] [place] [address] Dr. Phillip Mazariegos Monocytes/100 WBC (Bld) 6.9 % Normal 1.7-12.0 [facility] Comment on above: Performed By: #### C BC #### [facility] Laboratory [address] [place] [address] Dr. Phillip Mazariegos NEUT # 4.7 103/ul Normal 1.4-6.5 [facility] Comment on above: Performed By: #### C BC #### [facility] Laboratory [address] [place] [address] Dr. Phillip Mazariegos Neutrophils/100 WBC (Bld) 64.1 % Normal 43.0-75.0 [facility] Comment on above: Performed By: #### C BC #### [facility] Laboratory [address] [place] [address] Dr. Phillip Mazariegos Platelet mean volume (Bld) [Entitic vol] 9.6 fL Normal 9.5-13.5 [facility] Comment on above: Performed By: #### C BC #### [facility] Laboratory [address] [place] [address] Dr. Phillip Mazariegos PLT 298 103/ul Normal 150-450 [facility] Comment on above: Performed By: #### C BC #### [facility] Laboratory [address] [place] [address] Dr. Phillip Mazariegos RBC 4.51 106/ul Normal 4.20-5.40 [facility] Comment on above: Performed By: #### C BC #### [facility] Laboratory [address] [place] [address] Dr. Phillip Mazariegos WBC 7.3 103/ul Normal 4.0-11.0 [facility] Comment on above: Performed By: #### C BC #### [facility] Laboratory [address] [place] [address] Dr. Phillip Mazariegos PROF CHEM 8 (BAS METB)on Anion gap [Moles/Vol] 11.7 mmol/L Normal [facility] Comment on above: Performed By: #### T SH, BMP #### [facility] Laboratory [address] [address] [address] Phillip Mazariegos Calcium [Mass/Vol] 8.8 mg/dL Normal 8.5-10.1 [facility] Comment on above: Performed By: #### T SH, BMP #### [facility] Laboratory [address] [address] [address] Phillip Mazariegos Chloride [Moles/Vol] 103 mmol/L Normal 98-107 [facility] Comment on above: Performed By: #### T SH, BMP #### [facility] Laboratory [address] [address] [address] hPillip Mazareigos CO2 [Moles/Vol] 28.0 mmol/L Normal 21.0-32.0 [facility] Comment on above: Performed By: #### T SH, BMP #### [facility] Laboratory [address] [place] [address] Dr. Phillip Mazariegos Creatinine [Mass/Vol] 1.02 mg/dL Normal 0.55-1.02 [facility] Comment on above: Performed By: #### T SH, BMP #### [facility] Laboratory [address] [place] [address] Dr. Phillip Mazariegos EGFR-AF TUNISIAN >60 Normal >=60 [facility] Comment on above: Performed By: #### T SH, BMP #### [facility] Laboratory [address] [place] [address] Dr. Phillip Mazariegos EGFR-NON AF TUNISIAN 54 mL/min/1.73m2 Critically low >=60 [facility] Comment on above: Performed By: #### T SH, BMP #### [facility] Laboratory [address] [place] [address] Dr. Phillip Mazariegos Glucose [Mass/Vol] 119 mg/dL Critically high 74-106 [facility] Comment on above: Performed By: #### T SH, BMP #### [facility] Laboratory [address] [address] [address] Phillip Mazariegos Potassium [Moles/Vol] 3.7 mmol/L Normal 3.5-5.1 [facility] Comment on above: Performed By: #### T SH, BMP #### [facility] Laboratory [address] [address] [address] Phillip Mazariegos Sodium [Moles/Vol] 139 mmol/L Normal 136-145 [facility] Comment on above: Performed By: #### T SH, BMP #### [facility] Laboratory [address] [address] [address] Phillip Mazariegos Urea nitrogen [Mass/Vol] 19.0 mg/dL Critically high 7.0-18.0 [facility] Comment on above: Performed By: #### T SH, BMP #### [facility] Laboratory [address] [place] [address] Dr. Phillip Mazariegos Urea nitrogen/Creatinine [Mass ratio] 18.6 mg/mg Normal [facility] Comment on above: Performed By: #### T SH, BMP #### [facility] Laboratory [address] [place] [address] Dr. Phillip Mazariegos TSHon 09-07-2021 TSH 3.616 uIU/mL Normal 0.358-3.740 [facility] Comment on above: Performed By: #### T SH, BMP #### [facility] Laboratory [address] [place] [address] Dr. Phillip Mazariegos TSH RANGE SEE BELOW Normal [facility] Comment on above: Result Comment: <0.3 4 UIU/ml HYPERTHYROID 0.34-5.60 UIU/ml EUTHYROID >5.60 UIU/ml HYPOTHYROID Performed By: #### T SH, BMP #### [facility] Laboratory [address] [place] [address] Dr. Phillip Mazariegos UA (CLEAN/CATCH) MEDICAL OR SURGICAL INSTRUMENT MAKER/MICRO I F IND.on 09-07-2021 Bilirubin Ql (U) Negative Normal NEGATIVE [facility] Comment on above: Performed By: #### U ACSIND ####[facility] [address] [place] [address]Dr. Phillip Mazariegos Clarity (U) SL CLOUDY Abnormal CLEAR [facility] Comment on above: Performed By: #### U ACSIND ####[facility] [address] [place] [address]Dr. Phillip Mazariegos Color (U) YELLOW Normal YELLOW [facility] Comment on above: Performed By: #### U ACSIND ####[facility] [address] [place], [place] [address]Dr. Phillip Mazariegos Glucose Ql (U) Negative Normal NEGATIVE [facility] Comment on above: Performed By: #### U ACSIND ####[facility] [address] [place], [place] [address]Dr. Phillip Mazariegos Hemoglobin Ql (U) Negative Normal NEGATIVE [facility] Comment on above: Performed By: #### U ACSIND ####[facility] [address] [place], [place] [address]Dr. Phillip Yair Ketones Ql (U) Negative Normal NEGATIVE [facility] Comment on above: Performed By: #### U ACSIND ####[facility] [address] [place], [place] [address]Dr. Phillip Yair LEUKOCYTES Negative Normal NEGATIVE [facility] Comment on above: Performed By: #### U ACSIND ####[facility] [address] [place], [place] [address]Dr. Phillip Mazariegos Nitrite Ql (U) Negative Normal NEGATIVE [facility] Comment on above: Performed By: #### U ACSIND ####[facility] [address] [place], [place] [address]Dr. Phillip Yair pH (U) 6.0 [pH] Normal 5-9 [facility] Comment on above: Performed By: #### U ACSIND ####[facility] [address] [place], [place] [address]Dr. Rerebrent Mazariegos SPEC GRAVITY >=1.030 Abnormal 1.005-<=1.0 25 [facility] Comment on above: Performed By: #### U ACSIND ####[facility] [address] [place], [place] [address]Dr. Phillip Mazariegos UA PROTEIN Negative Normal NEGATIVE/ TRACE [facility] Comment on above: Performed By: #### U ACSIND ####[facility] [address] [place], [place] [address]DrBeau Mazariegos UR MICRO IND INDICATED Normal [facility] Comment on above: Performed By: #### U ACSIND ####[facility] [address] [place] [address]Dr. Phillip Mazariegos Urobilinogen Qn (U) 0.2 {Trish'U}/dL Normal 0.2 - 1. 0 [facility] Comment on above: Performed By: #### U ACSIND ####[facility] [address] [place] [address]Dr. Phillip Mazariegos URINE MICROSCOPIC ONLYon BACTERIA SMALL Abnormal NONE SEEN The [facility] Comment on above: Performed By: #### U MICRO #### [facility] Laboratory [address] [address] [address] Phillip Mazariegos Bacteria identified Cx Nom (U) INDICATED Normal [facility] Comment on above: Performed By: #### U MICRO #### [facility] Laboratory [address] [place] [address] Dr. Phillip Mazariegos CAST NONE SEEN Normal NONE SEEN [facility] Comment on above: Performed By: #### U MICRO #### [facility] Laboratory [address] [address] [address] Phillip Mazariegos Crystals LM Nom (Urine sed) NONE SEEN Normal NONE SEEN [facility] Comment on above: Performed By: #### U MICRO #### [facility] Laboratory [address] [place] [address] Dr. Phillip Mazariegos Epithelial cells LM Ql (Urine sed) FEW Abnormal NONE SEEN /RARE The [facility] Comment on above: Performed By: #### U MICRO #### [facility] Laboratory [address] [address] [address] Phillip Mazariegos MUCOUS TRACE Abnormal NONE SEEN The [facility] Comment on above: Performed By: #### U MICRO #### [facility] Laboratory [address] [address] [address] Phillip Mazariegos RBC NONE SEEN Abnormal 0-2 [facility] Comment on above: Performed By: #### U MICRO #### [facility] Laboratory [address] [address] [address] Phillip Mazariegos WBC 0-2 Abnormal NONE SEEN The [facility] Comment on above: Performed By: #### U MICRO #### [facility] Laboratory [address] [place], [place] [address] Dr. Phillip Mazariegos XR CHEST 2 Von [...] ELAINA ARRIAZA Date: 2021-09-07 15:03 Normal [facility] Radiologyon 08-28-2021 XR Chest 2 Views Normal [facility] 320 DO Work Phone: Laboratory - Chemistry and C hemistry - challengeon 08-02-2021 Anion gap [Moles/Vol] 11 mmol/L 10 - 20 [facility] 250 DO Work Phone: Calcium [Mass/Vol] 9.3 mg/dL 8.6 - 10.3 [facility] 250 DO Work Phone: Chloride [Moles/Vol] 107 mmol/L 98 - 107 [facility] 250 DO Work Phone: CO2 [Moles/Vol] 27 mmol/L 21 - 32 [facility] [address] DO Work Phone: Creatinine [Mass/Vol] 0.79 mg/dL See Below [facility] 250 DO Work Phone: [phone] Comment on above: Reference Range: 0.5 0 - 1.05 Glucose [Mass/Vol] 98 mg/dL 74 - 99 [facility] [place] [facility] DO Work Phone: Potassium [Moles/Vol] 3.7 mmol/L 3.5 - 5.3 [facility] 250 DO Work Phone: Sodium [Moles/Vol] 141 mmol/L 136 - 145 [facility] Maryana Plummer DO Work Phone: Urea nitrogen [Mass/Vol] 20 mg/dL 6 - 23 [facility] Maryana Plummer DO Work Phone: Laboratory - Coagulationon 0 08-02-2021 aPTT Coag (PPP) [Time] 32 s 26 - 39 [facility] Maryana Plummer DO Work Phone: Comment on above: THE APTT IS NO LONGE R USED FOR MONITORING UNFRACTIONATED HEPARIN THERAPY. FOR MONITORING HEPARIN THERAPY, USE THE HEPARIN ASSAY. INR Coag (PPP) [Relative time] 1.0 {INR} 0.9 - 1.1 [facility] Maryana Plummer DO Work Phone: PT Coag (PPP) [Time] 11.9 s 9.8 - 13.4 [facility] Maryana Plummer DO Work Phone: [phone] Laboratory - Hematology and Cell countson 08-02-2021 Erythrocyte distribution width (RBC) [Ratio] 13.3 % See Below [facility] Maryana Plummer DO Work Phone: [phone] Comment on above: Reference Range: 11. 5 - 14.5 Hematocrit (Bld) [Volume fraction] 37.9 % See Below [facility] Maryana Plummer DO Work Phone: Comment on above: Reference Range: 36. 0 - 46.0 Hemoglobin (Bld) [Mass/Vol] 12.7 g/dL See Below [facility] Maryana Plummer DO Work Phone: [phone] Comment on above: Reference Range: 12. 0 - 16.0 MCHC (RBC) [Mass/Vol] 33.5 g/dL See Below [facility] Maryana Plummer DO Work Phone: [phone] Comment on above: Reference Range: 32. 0 - 36.0 MCV (RBC) [Entitic vol] 88 fL 80 - 100 [facility] Maryana villarreal [facility] DO Work Phone: [phone] Platelets (Bld) [#/Vol] 168 10*3/uL 150 - 450 [facility] [address] DO Work Phone: RBC (Bld) [#/Vol] 4.33 {x10E12/L} See Below [facility] 250 DO Work Phone: Comment on above: Reference Range: 4.0 0 - 5.20 WBC (Bld) [#/Vol] 7.3 10*3/uL 4.4 - 11.3 [facility] [address] DO Work Phone: No Panel Informationon 08-02 [email or web address] [email or web address]?R [email or web address]?Judy [email or web address]=[id number]&Date=&Time=07%3a58%3a03%3a 00&TestType=ECG&Site=11&Ou tputType=PDF&Ext=PDF [facility] [address] DO Work Phone: [phone] Atrial-sensed ventricular-paced rhythm [facility] DO Work Phone: Abnormal [facility] 250 DO Work Phone: [phone] [facility] DO Work Phone: [phone] [facility] DO Work Phone: [phone] [facility] DO Work Phone: [phone] [facility] DO Work Phone: [phone] [facility] DO Work Phone: [phone] 1 [facility] DO Work Phone: [phone] 1 [facility] DO Work Phone: [phone] 1 [facility] DO Work Phone: [phone] [facility] DO Work Phone: [phone] [facility] 250 DO Work Phone: [phone] [facility] 250 DO Work Phone: 102 1 [facility] DO Work Phone: [phone] 1 [facility] 250 DO Work Phone: [phone] [facility] DO Work Phone: [phone] 82 {mL/min/1.73m2} >90 [facility] DO Work Phone: Comment on above: CALCULATIONS OF PHUC MATED GFR ARE PERFORMED USING THE 2020 CKD-EPI STUDY REFIT EQUATION WITHOUT THE RACE VARIABLE FOR THE IDMS-TRACEABLE CREATININE METHODS.[email or web address]://jasn.asnjournals.org/content/early/ASN [email or web address] Radiologyon 08-02-2021 XR Chest 2 Views Normal [facility] [place] Work Phone: COVID-19 SOFIAOrdered By: Awais Mayes on 07-31-2021 SARS-CoV+SARS-CoV-2 (COVID-19) Ag IA.rapid Ql (Resp) Negative Negative [facility] Comment on above: This is a duplicate Gretchen SARS Antigen (RUSTAM) result to be used for statistical tracking purpose only. No Panel InformationOrdered By: Daphne Mayes on 07-31-2021 SARS Antigen (LFIA) [facility] Basophils Auto (Bld) [#/Vol] Ordered By: Daphne Mayes on 07-18-2021 Basophils (Bld) [#/Vol] 0.0 10*3/uL 0.0-0.2 [facility] Basophils/100 WBC Auto (Bld) Ordered By: Daphne Mayes on 07-18-2021 Basophils/100 WBC (Bld) 0.5 % [facility] Blood hemoglobin measurement (mass/volume)Ordered By: Daphne Mayes on 07-18-2021 Hemoglobin (Bld) [Mass/Vol] 13.2 g/dL 11.8-15.4 [facility] Blood leukocytes automated c ount (number/volume)Ordered By: Daphne Mayes on 07-18-2021 WBC (Bld) [#/Vol] 6.3 10*3/uL 4.5-11.0 [facility] COVID-19 Positive/NegativeOr dered By: Daphne Mayes on 07-18-2021 SARS-CoV-2 (COVID-19) N gene MELL+probe Ql (Resp) Positive Negative [facility] Comment on above: Positive results ying l only be called to Providers for the following groups of patients: Pre-Surgical Testing, Emergency Room, and Inpatients.Testing for SARS-CoV-2 by RT-PCRThis test was developed and its performance characteristics determined by [employer] and validated at the [facility]. This test has not been FDA [...] on 07-18-2021 Creatinine [Mass/Vol] 0.76 mg/dL 0.44-1.03 [facility] Eosinophils Auto (Bld) [#/Vo l]Ordered By: Daphne Mayes on 07-18-2021 Eosinophils (Bld) [#/Vol] 0.2 10*3/uL 0.0-0.45 [facility] Eosinophils/100 WBC Auto (Bl d)Ordered By: Daphne Mayes on 07-18-2021 Eosinophils/100 WBC (Bld) 2.7 % [facility] Erythrocyte distribution wid th Auto (RBC) [Ratio]Ordered By: Daphne Mayes on 07-18-2021 Erythrocyte distribution width (RBC) [Ratio] 14.1 % 11.9-15.3 [facility] Estimated glomerular filtrat ion rate (GFR) non- AmericanOrdered By: Daphne Mayes on 07-18-2021 GFR/1.73 sq M.predicted among non-blacks MDRD (S/P/Bld) [Vol rate/Area] > 60 mL/Min [facility] Hematocrit Auto (Bld) [Volum e fraction]Ordered By: Daphne Mayes on 07-18-2021 Hematocrit (Bld) [Volume fraction] 39.3 % 34.0-46.4 [facility] Laboratory - CoagulationOrde red By: Daphne Mayes on 07-18-2021 PT Coag (PPP) [Time] 12.7 s 9.0-12.9 [facility] - Hematology and Cell countsOrdered By: Daphne Mayes on 07-18-2021 Nucleated RBC/100 WBC (Bld) [Ratio] 0.2 % 0-0.5 [facility] Lymphocytes Auto (Bld) [#/Vo l]Ordered By: Daphne Mayes on 07-18-2021 Lymphocytes (Bld) [#/Vol] 1.8 10*3/uL 1.00-4.8 [facility] Lymphocytes/100 WBC Auto (Bl d)Ordered By: Daphne Mayes on 07-18-2021 Lymphocytes/100 WBC (Bld) 28.3 % [facility] MCH Auto (RBC) [Entitic mass ]Ordered By: Daphne Mayes on 07-18-2021 MCH (RBC) [Entitic mass] 29.3 pg 24.7-34.3 [facility] MCHC Auto (RBC) [Mass/Vol]Or dered By: Daphne Mayes on 07-18-2021 MCHC (RBC) [Mass/Vol] 33.5 g/dL 32.0-35.0 [facility] MCV Auto (RBC) [Entitic vol] Ordered By: Daphne Mayes on 07-18-2021 MCV (RBC) [Entitic vol] 87.5 fL 80-100 [facility] Monocytes Auto (Bld) [#/Vol] Ordered By: Daphne Mayes on 07-18-2021 Monocytes (Bld) [#/Vol] 0.5 10*3/uL 0.0-0.8 [facility] Monocytes/100 WBC Auto (Bld) Ordered By: Daphne Mayes on 07-18-2021 Monocytes/100 WBC (Bld) 7.5 % [facility] Neutrophils Auto (Bld) [#/Vo l]Ordered By: Daphne Mayes on 07-18-2021 Neutrophils (Bld) [#/Vol] 3.9 10*3/uL 1.8-7.7 [facility] Neutrophils/100 WBC Auto (Bl d)Ordered By: Daphne Mayes on 07-18-2021 Neutrophils/100 WBC (Bld) 61.0 % [facility] No Panel InformationOrdered By: Daphne Mayes on 07-18-2021 Estimated GFR () > 60 mL/Min [facility] Comment on above: GFR estimated refere nce range: According to KDOQI guidelines, <60 ml/min/1.73m2 is sufficient to diagnose a patient with chronic kidney disease. Pharmacy Creatinine Clearance (Chem N/A [facility] Platelet mean volume Auto (B ld) [Entitic vol]Ordered By: Daphne Mayes on 07-18-2021 Platelet mean volume (Bld) [Entitic vol] 8.5 fL 6.3-10.7 [facility] Platelet poor plasma interna tional normalized ratio (INR) by coagulation assay (relatOrdered By: Daphne Mayes on 07-18-2021 INR Coag (PPP) [Relative time] 1.1 {INR} [facility] Comment on above: INR Therapeutic Rang [...] 07-18-2021 Platelets (Bld) [#/Vol] 282 10*3/uL 150-450 [facility] RBC Auto (Bld) [#/Vol]Ordere d By: Daphne Mayes on 07-18-2021 RBC (Bld) [#/Vol] 4.49 10*6/uL 3.60-5.00 [facility] Serum or plasma calcium khurram urement (mass/volume)Ordered By: Daphne Mayes on 07-18-2021 Calcium [Mass/Vol] 9.3 mg/dL 8.2-10.2 [facility] Serum or plasma chloride stephen surement (moles/volume)Ordered By: Daphne Mayes on 07-18-2021 Chloride [Moles/Vol] 103 mmol/L 95-114 [facility] Serum or plasma glucose khurram urement (mass/volume)Ordered By: Daphne Mayes on 07-18-2021 Glucose [Mass/Vol] 118 mg/dL 70-100 [facility] Comment on above: ADA recommended refe rence rangeRandom Glucose Reference Range is dependent on time and content of last meal. Glucose of more than 200 mg/dL in a nonstressed, ambulatory subject supports the diagnosis of Diabetes Mellitus. Serum or plasma potassium me asurement (moles/volume)Ordered By: Daphne Mayes on 07-18-2021 Potassium [Moles/Vol] 3.9 mmol/L 3.5-5.1 [facility] Serum or plasma sodium measu rement (moles/volume)Ordered By: Daphne Mayes on 07-18-2021 Sodium [Moles/Vol] 139 mmol/L 136-146 [facility] Serum or plasma total carbon dioxide measurement (moles/volume)Ordered By: Daphne Mayes on 07-18-2021 CO2 [Moles/Vol] 26.2 mmol/L 22.0-30.0 [facility] Serum or plasma urea nitroge n measurement (mass/volume)Ordered By: Daphne Mayes on 07-18-2021 Urea nitrogen [Mass/Vol] 16 mg/dL 9-23 [facility] CBCon 08-01-2020 Erythrocyte distribution width (RBC) [Ratio] 13.4 % Normal 11.5 - 14.5 [facility] Comment on above: Performed By: #### C BC #### [address] [id number] Hematocrit (Bld) [Volume fraction] 41.9 % Normal 36.0 - 46.0 [facility] Comment on above: Performed By: #### C BC #### [address] [id number] Hemoglobin (Bld) [Mass/Vol] 13.3 g/dL Normal 12.0 - 16.0 [facility] Comment on above: Performed By: #### C BC #### [address] [id number] MCHC (RBC) [Mass/Vol] 31.7 g/dL Low 32.0 - 36.0 [facility] Comment on above: Performed By: #### C BC #### [address] [id number] MCV (RBC) [Entitic vol] 91 fL Normal 80 - 100 [facility] Comment on above: Performed By: #### C BC #### [address] [id number] Platelets (Bld) [#/Vol] 205 10*3/uL Normal 150 - 450 [facility] Comment on above: Performed By: #### C BC #### [address] [id number] RBC (Bld) [#/Vol] 4.62 x10E12/L Normal 4.00 - 5.20 [facility] Comment on above: Performed By: #### C BC #### [address] [id number] WBC (Bld) [#/Vol] 7.4 10*3/uL Normal 4.4 - 11.3 [facility] Comment on above: Performed By: #### C BC #### [address] [id number] CREATININEon 08-01-2020 Creatinine [Mass/Vol] 0.77 mg/dL Normal 0.50 - 1.05 [facility] Comment on above: Performed By: #### C REAT #### [address] [id number] Creatinine [Mass/Vol] mg/dL Normal >60 [facility] Comment on above: Result Comment: CALC ULATIONS OF ESTIMATED GFR ARE PERFORMED USING THE MDRD STUDY EQUATION FOR THE IDMS-TRACEABLE CREATININE METHODS. CLIN CHEM 2007;53:766-72 Performed By: #### C REAT #### [address] [id number] ELECTROLYTE PANELon 08-02-19 Anion gap [Moles/Vol] 12 mmol/L Normal 10 - 20 [facility] Comment on above: Performed By: #### E LECT #### [address] [id number] Chloride [Moles/Vol] 107 mmol/L Normal 98 - 107 [facility] Comment on above: Performed By: #### E LECT #### [address] [id number] HCO3 (Bld) [Moles/Vol] 28 mmol/L Normal 21 - 32 [facility] Comment on above: Performed By: #### E LECT #### [address] [id number] Potassium [Moles/Vol] 3.7 mmol/L Normal 3.5 - 5.3 [facility] Comment on above: Performed By: #### E LECT #### [address] [id number] Sodium [Moles/Vol] 143 mmol/L Normal 136 - 145 [facility] Comment on above: Performed By: #### E LECT #### [address] [id number] UREA NITROGENon 08-01-2020 Urea nitrogen [Mass/Vol] 17 mg/dL Normal 6 - 23 [facility] Comment on above: Performed By: #### U SHARON #### [address] [id number] [facility] 11-13-2018 CNNURSE Nurse Visit (CARDMN) -- NYA BELL Delaney ([id number]) 1955 F Date Time Provider Department 11/13/18 7:00 AM RESEARCH NURSE CARD BALA DAS During your visit today, we recorded the following information about you: Aba Rodriguez RUST 11/13/2018 4:02 PM Signed IRB [id number] TRIM-AF Study (Upstream Targeting for the Prevention of Atrial Fibrillation: Targeting Risk Interventions and Metformin for Atrial Fibrillation) PI: Jose Hodge I called the patient to follow up on potential participation in the TRIM-AF (NO AF Biomarker) study. The patient was unavailable and I left a voicemail to return my call at her convenience. Aba Rodriguez RUST November 13, 2018 2:31 PM Referring Provider: [...] Obesity [E66.9] INVALID FOR* Encounter Status:Closed by ABA WILLIAM on 11/13/18 [facility] PROGRESSon 11-13-2018 PROGRESS HNO ID: [id number] [facility] Service: ? Author Type: ? Type: [...] my call at her convenience. Aba Rodriguez RUST November 13, 2018 2:31 PM [facility] Coding Summary.on 07-02-2017 Coding Summary. CODING DATE: 018 [facility] STATUS: Home (Routine DC) PAYOR: Medicare [...] Rosa Stubbs Date Saved: 07/02/2017 08:19 am [facility] Vital Signs Date Time Vital Sign Value Performing Clinician Facility 06-14-2024 13:25-0500 Body height 149.22 cm Anupam Pereira MD Work Phone: [facility] 06-14-2024 13:25-0500 Body mass index (BMI) [Ratio] 39.9 kg/m2 Anupam Pereira MD Work Phone: [facility] 06-14-2024 13:25-0500 Body weight 88.9 kg Anupam Pereira MD Work Phone: [facility] 06-14-2024 13:25-0500 Diastolic blood pressure 76 mm[Hg] Anupam Pereira MD Work Phone: [facility] 06-14-2024 13:25-0500 Heart rate 76 /min Anupam Pereira MD Work Phone: [facility] 06-14-2024 13:25-0500 Systolic blood pressure 117 mm[Hg] Anupam Pereira MD Work Phone: [facility] 06-10-2024 10:24-0500 Body height 152.4 cm Lupe Boswell MD Work Phone: [facility] 06-10-2024 10:24-0500 Body mass index (BMI) [Ratio] 38.55 kg/m2 Lupe Boswell MD Work Phone: [facility] 06-10-2024 10:24-0500 Body weight 89.54 kg Lupe Boswell MD Work Phone: [facility] 06-10-2024 10:24-0500 Diastolic blood pressure 60 mm[Hg] Lupe Boswell MD Work Phone: [facility] 06-10-2024 10:24-0500 Heart rate 82 /min Lupe Boswell MD Work Phone: [facility] 06-10-2024 10:24-0500 Systolic blood pressure 108 mm[Hg] Lupe Boswell MD Work Phone: [facility] 05-31-2024 11:36-0500 Body height 149.22 cm [facility] 05-31-2024 11:36-0500 Body mass index (BMI) [Ratio] 39.7 kg/m2 [facility] 05-31-2024 11:36-0500 Body weight 88.59 kg [facility] 05-31-2024 11:36-0500 Diastolic blood pressure 76 mm[Hg] [facility] 05-31-2024 11:36-0500 Heart rate 65 /min [facility] 05-31-2024 11:36-0500 Respiratory rate 16 /min [facility] 05-31-2024 11:36-0500 SaO2% (BldA) [Mass fraction] 98 % [facility] 05-31-2024 11:36-0500 Systolic blood pressure 114 mm[Hg] [facility] 03-02-2024 10:53-0400 Body height 151.13 cm [facility] 03-02-2024 10:53-0400 Body mass index (BMI) [Ratio] 38.7 kg/m2 [facility] 03-02-2024 10:53-0400 Body weight 88.45 kg [facility] 03-02-2024 10:53-0400 Diastolic blood pressure 81 mm[Hg] [facility] 03-02-2024 10:53-0400 Heart rate 78 /min [facility] 03-02-2024 10:53-0400 Systolic blood pressure 137 mm[Hg] [facility] 12-22-2023 13:59-0400 Body height 151.13 cm [facility] 12-22-2023 13:59-0400 Body mass index (BMI) [Ratio] 39.5 kg/m2 [facility] 12-22-2023 13:59-0400 Body temperature 98.6 [degF] [facility] 12-22-2023 13:59-0400 Body weight 90.37 kg [facility] 12-22-2023 13:59-0400 Heart rate 95 /min [facility] 12-22-2023 13:59-0400 Respiratory rate 18 /min [facility] 12-22-2023 13:59-0400 SaO2% (BldA) [Mass fraction] 97 % [facility] 11-18-2023 10:43-0400 Body height 152.4 cm Lupe Boswell MD Work Phone: [facility] 11-18-2023 10:43-0400 Body mass index (BMI) [Ratio] 37.5 kg/m2 Lupe Boswell MD Work Phone: [facility] 11-18-2023 10:43-0400 Body weight 87.09 kg Lupe Boswell MD Work Phone: [facility] 11-18-2023 10:43-0400 Diastolic blood pressure 64 mm[Hg] Lupe Boswell MD Work Phone: [facility] 11-18-2023 10:43-0400 Heart rate 76 /min Lupe Boswell MD Work Phone: [facility] 11-18-2023 10:43-0400 Systolic blood pressure 106 mm[Hg] Lupe Boswell MD Work Phone: [facility] 08-29-2023 10:30-0400 Body height 152.4 cm Daphne Mayes MD Work Phone: [facility] 08-29-2023 10:30-0400 Body mass index (BMI) [Ratio] 37.5 kg/m2 Daphne Mayes MD Work Phone: [facility] 08-29-2023 10:30-0400 Body weight 87.09 kg Daphne Mayes MD Work Phone: [facility] 08-29-2023 10:30-0400 Diastolic blood pressure 80 mm[Hg] Daphne Mayes MD Work Phone: [facility] 08-29-2023 10:30-0400 Heart rate 64 /min Daphne Mayes MD Work Phone: [facility] 08-29-2023 10:30-0400 Systolic blood pressure 136 mm[Hg] Daphne Mayes MD Work Phone: [facility] 05-28-2023 11:30-0500 Body height 151.13 cm Anupam Pereira Other [employer] Other 05-28-2023 11:30-0500 Body mass index (BMI) [Ratio] 37.33 kg/m2 Anupam Pereira Other [employer] Other 05-28-2023 11:30-0500 Body weight 85.28 kg Anupam Pereira Other [employer] Other 05-28-2023 11:30-0500 Diastolic blood pressure 82 mm[Hg] Anupam Pereira Other [employer] Other 05-28-2023 11:30-0500 Systolic blood pressure 121 mm[Hg] Anupam Pereira Other [employer] Other 05-12-2023 13:32-0500 Body height 152.4 cm Lupe Boswell MD Work Phone: [facility] 05-12-2023 13:32-0500 Body mass index (BMI) [Ratio] 37.3 kg/m2 Lupe Boswell MD Work Phone: [facility] 05-12-2023 13:32-0500 Body weight 86.64 kg Lupe Boswell MD Work Phone: [facility] 05-12-2023 13:32-0500 Diastolic blood pressure 60 mm[Hg] Lupe Boswell MD Work Phone: [facility] 05-12-2023 13:32-0500 Heart rate 62 /min Lupe Boswell MD Work Phone: [facility] 05-12-2023 13:32-0500 Systolic blood pressure 106 mm[Hg] Lupe Boswell MD Work Phone: [facility] 02-25-2023 10:10-0400 Body height 152.4 cm Maurizio Jorgensen APRN-PAMELA Work Phone: [facility] 02-25-2023 10:10-0400 Body mass index (BMI) [Ratio] 37.69 kg/m2 Maurizio Jorgensen CHIEF [employer] OFFICER-[employer]LEEP [employer] TECHNOLOGIST Work Phone: [facility] 02-25-2023 10:10-0400 Body weight 87.54 kg Maurizio Jorgensen CHIEF [employer]ATION OFFICER-SLEEP LAB TECHNOLOGIST Work Phone: [facility] 02-25-2023 10:10-0400 Diastolic blood pressure 80 mm[Hg] Maurizio Jorgensen CHIEF INNOVATION OFFICER-SLEEP LAB TECHNOLOGIST Work Phone: [facility] 02-25-2023 10:10-0400 Heart rate 74 /min Maurizio Jorgensen CHIEF INNOVATION OFFICER-SLEEP LAB TECHNOLOGIST Work Phone: [facility] 02-25-2023 10:10-0400 Systolic blood pressure 132 mm[Hg] Maurizio Jorgensen CHIEF INNOVATION OFFICER-SLEEP LAB TECHNOLOGIST Work Phone: [facility] 01-09-2023 13:15-0400 Body height 151.13 cm Anupam Pereira Other [employer] Other 01-09-2023 13:15-0400 Body mass index (BMI) [Ratio] 38.05 kg/m2 Anupam Pereira Other [employer] Other 01-09-2023 13:15-0400 Body weight 86.91 kg Anupam Pereira Other [employer] Other 01-09-2023 13:15-0400 Diastolic blood pressure 95 mm[Hg] Anupam Pereira Other [employer] Other 01-09-2023 13:15-0400 Systolic blood pressure 140 mm[Hg] Anupam Pereira Other [employer] Other 12-31-2022 14:15-0400 Body height 151.13 cm Anupam Pereira Other [employer] Other 12-31-2022 14:15-0400 Body mass index (BMI) [Ratio] 38.32 kg/m2 Anupam Pereira Other [employer] Other 12-31-2022 14:15-0400 Body temperature 97.9 [degF] Anupam Pereira Other [employer] Other 12-31-2022 14:15-0400 Body weight 87.54 kg Anupam Periera Other [employer] Other 12-31-2022 14:15-0400 Diastolic blood pressure 83 mm[Hg] Anupam Pereira Other [employer] Other 12-31-2022 14:15-0400 Systolic blood pressure 127 mm[Hg] Anupam Pereira Other [employer] Other 12-24-2022 10:45-0400 Body height 151.13 cm Anupam Pereira Other [employer] Other 12-24-2022 10:45-0400 Body mass index (BMI) [Ratio] 38.52 kg/m2 Anupam Pereira Other [employer] Other 12-24-2022 10:45-0400 Body weight 88 kg Anupam Pereira Other [employer] Other 12-24-2022 10:45-0400 Diastolic blood pressure 75 mm[Hg] Anupam Pereira Other [employer] Other 12-24-2022 10:45-0400 Systolic blood pressure 111 mm[Hg] Anupam Pereira Other [employer] Other 10-09-2022 10:59-0400 Body height 152.4 cm Anupam Pereira Work Phone: [facility] 250 DO Work Phone: 10-09-2022 10:59-0400 Body mass index (BMI) [Ratio] 39.26 kg/m2 Anupam Pereira Work Phone: [facility] 250 DO Work Phone: 10-09-2022 10:59-0400 Body surface area Derived from formula 1.87 m2 Anupam Pereira Work Phone: [facility] [facility] DO Work Phone: 10-09-2022 10:59-0400 Body weight 91.17 kg Anupam Pereira Work Phone: [facility] 250 DO Work Phone: 10-09-2022 10:59-0400 Diastolic blood pressure 64 mm[Hg] Anupam Pereira Work Phone: [facility] 250 DO Work Phone: 10-09-2022 10:59-0400 Heart rate 72 /min Anupam Pereira Work Phone: [facility] 250 DO Work Phone: 10-09-2022 10:59-0400 Systolic blood pressure 124 mm[Hg] Anupam Pereira Work Phone: [facility] 250 DO Work Phone: 05-21-2022 15:30-0500 Body height 151.13 cm Anupam Pereira Other [employer] Other 05-21-2022 15:30-0500 Body mass index (BMI) [Ratio] 40.11 kg/m2 Anupam Periera Other [employer] Other 05-21-2022 15:30-0500 Body weight 91.63 kg Anupam Pereira Other [employer] Other 05-21-2022 15:30-0500 Diastolic blood pressure 70 mm[Hg] Anupam Pereira Other [employer] Other 05-21-2022 15:30-0500 SaO2% (BldA) [Mass fraction] 97 % Anupam Pereira Other [employer] Other 05-21-2022 15:30-0500 Systolic blood pressure 126 mm[Hg] Anupam Pereira Other [employer] Other 04-17-2022 11:16-0500 Body height 152.4 cm Anupam Pereira Work Phone: [facility] [employer] 250 DO Work Phone: 04-17-2022 11:16-0500 Body mass index (BMI) [Ratio] 39.32 kg/m2 Anupam Pereira Work Phone: [facility] [employer] 250 DO Work Phone: 04-17-2022 11:16-0500 Body surface area Derived from formula 1.87 m2 Anupam Pereira Work Phone: [facility] [employer] 250 DO Work Phone: 04-17-2022 11:16-0500 Body weight 91.31 kg Anupam Pereira Work Phone: [facility] [employer] 250 DO Work Phone: 04-17-2022 11:16-0500 Diastolic blood pressure 84 mm[Hg] Anupam Pereira Work Phone: [facility] [employer] [facility] DO Work Phone: 04-17-2022 11:16-0500 Heart rate 62 /min Anupam ePreira Work Phone: [facility] 250 DO Work Phone: 04-17-2022 11:16-0500 Systolic blood pressure 126 mm[Hg] Anupam Pereira Work Phone: [facility] 250 DO Work Phone: 10-09-2021 13:20-0400 Body height 152.4 cm Anupam Pereira Work Phone: [facility] 250 DO Work Phone: 10-09-2021 13:20-0400 Body mass index (BMI) [Ratio] 40.23 kg/m2 Anupam Pereira Work Phone: [facility] 250 DO Work Phone: 10-09-2021 13:20-0400 Body surface area Derived from formula 1.89 m2 Anupam Pereira Work Phone: [facility] 250 DO Work Phone: 10-09-2021 13:20-0400 Body weight 93.44 kg Anupam Pereira Work Phone: [facility] 250 DO Work Phone: 10-09-2021 13:20-0400 Diastolic blood pressure 89 mm[Hg] Anupam Pereira Work Phone: [facility] 250 DO Work Phone: 10-09-2021 13:20-0400 Heart rate 68 /min Anupam Pereira Work Phone: [facility] 250 DO Work Phone: 10-09-2021 13:20-0400 Systolic blood pressure 144 mm[Hg] Anupam Pereira Work Phone: [facility] 250 DO Work Phone: 10-09-2021 13:20-0400 12 1 Anupam Pereira Work Phone: [facility] 250 DO Work Phone: Comment on above: PHQ-9 TS 08-09-2021 15:58-0400 Body height 152.4 cm Anupam Pereira Work Phone: [facility] 250 DO Work Phone: 08-09-2021 15:58-0400 Body mass index (BMI) [Ratio] 41.21 kg/m2 Anupam Pereira Work Phone: [facility] 250 DO Work Phone: 08-09-2021 15:58-0400 Body surface area Derived from formula 1.91 m2 Anupam Pereira Work Phone: [facility] 250 DO Work Phone: 08-09-2021 15:58-0400 Body temperature 97 [degF] Anupam Pereira Work Phone: [facility] 250 DO Work Phone: 08-09-2021 15:58-0400 Body weight 95.71 kg Anupam Pereira Work Phone: [facility] 250 DO Work Phone: 08-09-2021 15:58-0400 Diastolic blood pressure 78 mm[Hg] Anupam Pereira Work Phone: [facility] 250 DO Work Phone: 08-09-2021 15:58-0400 Heart rate 82 /min Anupam Pereira Work Phone: [facility] 250 DO Work Phone: 08-09-2021 15:58-0400 Systolic blood pressure 132 mm[Hg] Anupam Pereira Work Phone: [facility] 250 DO Work Phone: Encounters Encounter Date Encounter Type Care Provider Facility Start: 06-14-2024 End: 06-14-2024 ambulatory Anupam Pereira MD Work Phone: [facility] Work Phone: Start: 06-14-2024 End: 06-14-2024 Patient encounter procedure Anupam Pereira MD Work Phone: [facility] Physician [facility] Work Phone: Start: 06-10-2024 End: 06-10-2024 Office outpatient visit 25 minutes Lupe Boswell MD Work Phone: [facility] Comment on above: ICD (implantable car dioverter-defibrillator) in place (Primary Dx); Chronic systolic congestive heart failure; Fatigue, unspecified type; Obstructive sleep apnea syndrome in adult; Never smoked cigarettes; BMI 38.0-38.9,adult; Class 2 obesity Start: 06-10-2024 End: 06-10-2024 ambulatory TORREZ [facility] Start: 06-08-2024 Non-patient / Non-visit Anupam Pereira MD Work Phone: [facility] Work Phone: Start: 06-03-2024 End: 06-03-2024 Patient encounter procedure Anupam Pereira MD Work Phone: [facility] Start: 06-03-2024 End: 06-03-2024 ambulatory Anupam Pereira MD Work Phone: [facility] Work Phone: Start: 05-31-2024 End: 05-31-2024 ambulatory [facility] Work Phone: Start: 05-31-2024 End: 05-31-2024 Patient encounter procedure [facility] Physician [facility] Work Phone: Start: 05-20-2024 End: 05-20-2024 ambulatory TORREZ M [facility] Start: 05-20-2024 Non-patient / Non-visit Anupam Pereira MD Work Phone[facility] Work Phone: Start: 03-03-2024 Non-patient / Non-visit [facility] Physician [facility] Work Phone: Start: 03-03-2024 End: 03-03-2024 ambulatory Anupam Pereira Facility:[facility] Start: 03-03-2024 Non-patient / Non-visit [facility] Start: 03-02-2024 End: 03-02-2024 ambulatory [facility] Work Phone: Start: 03-02-2024 End: 03-02-2024 Patient encounter procedure [facility] Physician [facility] Work Phone: Start: 03-01-2024 End: 03-01-2024 Subsequent hospital visit by physician [facility] Comment on above: ICD (implantable car dioverter-defibrillator) in place Start: 03-01-2024 End: 03-01-2024 ambulatory [facility] Start: 12-22-2023 End: 12-22-2023 ambulatory [facility] Work Phone: Start: 12-22-2023 End: 12-22-2023 Patient encounter procedure [facility] Physician [facility] Work Phone: Start: 12-02-2023 End: 12-02-2023 Patient encounter procedure MD Anupam Pereira Work Phone: [facility] Start: 12-02-2023 End: 12-02-2023 ambulatory MD Anupam Pereira Work Phone: [facility] Work Phone: Start: 12-02-2023 Non-patient / Non-visit [facility] Start: 11-18-2023 End: 11-18-2023 Office outpatient visit 25 minutes Lupe Boswell MD Work Phone: [facility] Comment on above: Cardiomyopathy, unsp ecified type (Multi); Chronic systolic congestive heart failure (Multi); ICD (implantable cardioverter-defibrillator) in place; Obstructive sleep apnea syndrome in adult; Fatigue, unspecified type; Never smoked cigarettes; Class 2 obesity without serious comorbidity with body mass index (BMI) of 37.0 to 37.9 in adult, unspecified obesity type Start: 11-18-2023 End: 11-18-2023 ambulatory LUPE CANOAHIM [facility] Start: 08-29-2023 End: 08-30-2023 ambulatory ANUPAM PEREIRA [facility] Start: 08-29-2023 End: 08-29-2023 Office outpatient visit 25 minutes Daphne Mayes MD Work Phone: [facility] Comment on above: ICD (implantable car dioverter-defibrillator) [...] treatment options Start: 08-29-2023 End: 08-29-2023 ambulatory Gaudencio Mendoza Facility:[facility] Start: 05-28-2023 Office outpatient vi sit 15 minutes Anupam Pereira [facility] Start: 05-28-2023 End: 05-28-2023 ambulatory MD Anupam Pereira Work Phone: [facility] Other Start: 05-28-2023 End: 05-28-2023 Patient encounter procedure MD Anupam Pereira Work Phone: [facility] Start: 05-20-2023 End: 05-20-2023 ambulatory Anupam Pereira Other [facility] Other Start: 05-20-2023 Telephone encounter Anupam Pereira [facility] Start: 05-12-2023 End: 05-12-2023 Office outpatient visit 25 minutes Lupe Boswell MD Work Phone: [facility] Comment on above: Cardiomyopathy, unsp ecified type (CMS/HCC) (Primary Dx); ICD (implantable cardioverter-defibrillator) in place; Obstructive sleep apnea syndrome in adult; Class 2 obesity without serious comorbidity with body mass index (BMI) of 37.0 to 37.9 in adult, unspecified obesity type Start: 05-08-2023 End: 05-08-2023 Patient encounter procedure MD Anupam Pereira Work Phone: [facility] Work Phone: Start: 02-25-2023 End: 02-25-2023 Office outpatient visit 25 minutes Maurizio Jorgensen APRN-SLEEP LAB TECHNOLOGIST Work Phone: [facility] Comment on above: ICD (implantable car dioverter-defibrillator) in place (Primary Dx); Morbid obesity (CMS/HCC); Chronic systolic congestive heart failure (CMS/HCC); Cardiomyopathy, unspecified type (CMS/HCC); Dyspnea on exertion; Obstructive sleep apnea syndrome in adult; Other fatigue Start: 01-09-2023 End: 01-09-2023 ambulatory Anupam Pereira Other [facility] Other Start: 01-09-2023 Office outpatient vi sit 15 minutes Anupam Pereira [facility] Start: 12-31-2022 End: 12-31-2022 ambulatory Anupma Pereira Other [facility] Other Start: 12-31-2022 Office outpatient vi sit 15 minutes Anupam Pereira [facility] Start: 12-24-2022 End: 12-24-2022 ambulatory Anupam Pereira Other [facility] Other Start: 12-24-2022 Office outpatient vi sit 15 minutes Anupam Pereira [facility] Start: 12-20-2022 End: 12-20-2022 ambulatory Anupam Pereira Other [facility] [employer] Other Start: 12-20-2022 Telephone encounter Anupam Pereira [facility] Start: 12-16-2022 End: 12-16-2022 ambulatory Anupam Pereira Other [facility] [employer] Other Start: 12-16-2022 Telephone encounter Anupam Pereira [facility] Start: 11-28-2022 End: 11-28-2022 ambulatory MD Anupam Pereira Work Phone: [facility] Work Phone: Start: 11-28-2022 End: 11-28-2022 Patient encounter procedure MD Anupam Pereira Work Phone: [facility] Start: 11-22-[address] Lupe Boswell Facility:[id number] Start: 10-09-[address] Lupe Boswell Facility: Start: 10-09-2022 Office outpatient vi sit 25 minutes Anupam Pereira Work Phone: [facility] 250 DO Work Phone: Start: 08-28-[address] Anupam Pereira Facility:[id number] Start: 08-28-2022 End: 08-28-2022 ambulatory MD Anupam Pereira Work Phone: [facility] Work Phone: Start: 08-28-2022 End: 08-28-2022 Patient encounter procedure MD Anupam Pereira Work Phone: [facility] Start: 08-22-[address] Lupe Boswell Facility:[id number] Start: 08-15-2022 End: 08-16-2022 ambulatory YOSHI MANE . Facility:H1 Start: 07-17-[address] Lupe Boswell Facility:[id number] Start: 07-16-2022 End: 07-16-[address] ANUPAM PEREIRA Facility:H1 Start: 07-11-2022 Encounter for preprocedural cardiovascular examination DR JANICE IRVING . [facility] Start: 07-09-2022 End: 07-10-[address] ANUPAM PEREIRA Facility:H1 Start: 07-09-2022 End: 07-10-2022 Encounter for preprocedural cardiovascular examination DR ANUPAM PEREIRA Facility:H1 Start: 06-20-2022 End: 06-21-[address] ANUPAM PEREIRA Facility:H1 Start: 06-04-2022 End: 06-04-[address] ANUPAM PEREIRA Facility:H1 Start: 05-23-2022 End: 05-24-[address] ANUPAM PEREIRA [facility] [employer] Other Start: 05-23-2022 Telephone encounter Anupam Pereira [facility] Start: 05-21-2022 End: 05-22-[address] ANUPAM PEREIRA [facility] [employer] Other Start: 05-21-2022 Office outpatient vi sit 15 minutes Anupam Pereira [facility] Start: 05-17-2022 End: 05-17-2022 ambulatory MD Anupam Pereira Work Phone: [facility] Work Phone: Start: 05-17-2022 End: 05-17-2022 Patient encounter procedure MD Anupam Pereira Work Phone: [facility] Start: 05-07-2022 End: 05-07-[address] ANUPAM PEREIRA Facility:H1 Start: 04-23-2022 End: 04-24-[address] ANUPAM PEREIRA Facility:H1 Start: 04-17-2022 Office outpatient vi sit 25 minutes Anupam Pereira Work Phone: [facility] 250 DO Work Phone: Start: 04-17-[address] Lupe Boswell Facility:[id number] Start: 04-09-2022 End: 04-10-[address] ANUPAM PEREIRA Facility:H1 Start: 02-12-[address] Anupam Pereira Facility:[id number] Start: 02-12-2022 End: 02-12-2022 ambulatory MD Anupam Pereira Work Phone: [facility] Work Phone: Start: 02-12-2022 End: 02-12-2022 Patient encounter procedure MD Anupam Pereira Work Phone: [facility] Start: 02-04-2022 End: 02-05-[address] ANUPAM PEREIRA Facility:H1 Start: 02-01-[address] Anupam Pereira Facility: Start: 11-07-2021 End: 11-07-2021 Patient encounter procedure MD Anupam Pereira Work Phone: [facility] Start: 11-06-2021 End: 11-07-[address] LUPE BOSWELL Facility:H1 Start: 10-09-2021 Office outpatient vi sit 25 minutes Anupam Pereira Work Phone: [facility] 250 DO Work Phone: Start: 09-07-2021 End: 09-08-[address] ANUPAM PEREIRA Facility:H1 Start: 08-30-2021 Chart Update Anupam Pereira Work Phone: [facility] 320 DO Work Phone: Start: 08-10-2021 Rx Renewal Anupam Pereira Work Phone: [facility] 250 DO Work Phone: Start: 08-09-2021 Postop follow up vis it related to original px Anupam Pereira Work Phone: [facility] 250 DO Work Phone: Start: 07-31-2021 End: 07-31-2021 Patient encounter procedure MD Anupam Pereira Work Phone: [facility] COVID Testing Start: 07-23-2021 AUDIT Anupam Pereira Work Phone: [facility] 3 DO Work Phone: Start: 07-18-2021 End: 07-18-2021 Patient encounter procedure MD Anupam Pereira Work Phone: [facility] Swab Start: 07-11-2021 Message Anupam Pereira Work Phone: [facility] 320 DO Work Phone: Start: 07-04-2021 End: 07-04-2021 Patient encounter procedure MD Anupam Pereira Work Phone: [facility] Start: 06-29-2021 AUDIT Anupam Pereira Work Phone: [facility] 320 DO Work Phone: Start: 04-03-2021 Rx Renewal Anupam Pereira Work Phone: [facility] 320 DO Work Phone: Start: 07-01-2017 End: 07-02-2017 Ambulatory [facility] Facility:[facility] Patient encounter status Anupam Pereira Work Phone: [facility] 320 DO Work Phone: End: 10-09-2021 Patient encounter status Anupam Pereira Work Phone: [facility] 250 DO Work Phone: Procedures Date Procedure Procedure Detail Performing Clinician Start: 03-01-2024 Prgrmg eval implanta ble in person multi lead dfb Daphne Mayes MD Work Phone: Start: 08-29-2023 ECG 12-LEAD DAPHNE MAYES Start: 08-29-2023 FOLLOW UP IN CARDIOLOGY DAPHNE MAYES Start: 08-29-2023 Basic metabolic 2000 panel - Serum or Plasma ANUPAM PEREIRA Start: 08-29-2023 Ecg routine ecg w/le ast 12 lds w/i&r Daphne Mayes MD Work Phone: Start: 07-31-2021 SARS Antigen (LFIA) MD Anupam Pereira Work Phone: Start: 09-01-2018 Screening mammography Олег Pereira Other Insertion of pulse generator of implantable cardioverter defibrillator Anupam Pereira Work Phone: Ligation of fallopian tube Олег greer Pereira Work Phone: Total colonoscopy Anupam pardo Work Phone: Comment on above: [id number]; Plan of Treatment Date Care Activity Detail Author Start: 12-24-2033 DTaP/Tdap/Td Vaccine s (2 - Td or Tdap) DTaP/Tdap/Td Vaccines (2 - Td or Tdap) [facility] Start: 10-06-2024 End: 10-06-2024 Patient encounter procedure 10/06/2024 9:40 AM EDT Office Visit [address] [place] [id number] Lupe Boswell MD [address] [facility] [address], [facility] 250 [place] [address] [facility] Start: 08-28-2024 Creatinine measurement Creatinine Le lee ann [facility] Start: 08-28-2024 Potassium measurement Potassium Leve l [facility] Start: 06-10-2024 End: 06-10-2024 Patient encounter procedure 06/10/2024 10:30 AM EST Office Visit [place] [id number] [facility] 250 [place] [phone] Lupe Boswell MD [address] [facility] [address], [facility] 250 [place] [address] [facility] Start: 05-20-2024 End: 11-17-2024 Basic metabolic 2000 panel - Serum or Plasma Basic Metabolic Panel Lab Routine Cardiomyopathy, unspecified type (Multi) Chronic systolic congestive heart failure (Multi) Expected: 05/20/2024 (Approximate), Expires: 11/17/2024 [facility] Service Area Work Phone: Comment on above: Expected: 05/20/2024 (Approximate), Expires: 11/17/2024 Start: 04-06-2024 End: 04-06-2024 Patient encounter procedure 04/06/2024 11:00 AM EST Office Visit [facility] [address] [facility] [address] [place] [address] Daphne Mayes MD [address] [facility] [address], [address] [place] [address] [facility] Start: 02-28-2024 End: 08-28-2024 Cardiac Device Check - In Clinic Cardiac Device Check - In Clinic Implantable Cardiac Device Routine ICD (implantable cardioverter-defibrilla tor) in place Expected: 02/28/2024 (Approximate), Expires: 08/28/2024 [facility] Service Area Work Phone: Comment on above: Expected: 02/28/2024 (Approximate), Expires: 08/28/2024 Start: 02-20-2024 End: 02-20-2024 Patient encounter procedure [facility] Start: 01-04-2024 COVID-19 Vaccine ( season) COVID-19 Vaccine ( season) [facility] Start: 01-04-2024 Influenza vaccination [facility] Start: 11-23-2023 Echocardiography Echocardiogram [facility] Start: 11-18-2023 End: 11-18-2023 Patient encounter procedure 11/18/2023 10:40 AM EDT Office Visit [facility] [address] [facility] [address] [place] [address] Lupe Boswell MD [address] [place] [address] [facility] Start: 08-29-2023 End: 08-29-2023 Patient encounter procedure 08/29/2023 10:20 AM EDT Office Visit [facility] [address] [facility] [address] [place] [address] Daphne Mayes MD [address] [facility] [address], [address] [place] [address] [facility] Start: 04-17-2023 FUV, Provider: Lupe Boswell, Status: Pen, Time: 11:00 AM FUV, Provider: Lupe Boswell, Status: Pen, Time: 11:00 AM [facility] 250 DO Work Phone: Start: 04-17-2023 End: 04-17-2023 Patient encounter procedure 04/17/2023 11:00 AM EST Office Visit [facility] [address] [facility] [address] [place] [address] Lupe Boswell MD [address] [facility] [address], [address] [place] [address] [facility] Start: 03-11-2023 End: 02-26-2024 Basic metabolic 2000 panel - Serum or Plasma Basic metabolic panel Lab Routine Chronic systolic congestive heart failure (CMS/HCC) Expected: 03/11/2023 (Approximate), Expires: 02/26/2024 [facility] Service Area Work Phone: Comment on above: Expected: 03/11/2023 (Approximate), Expires: 02/26/2024 Start: 01-31-2023 FUV, Provider: Daphne Mayes, Status: Pen, Time: 2:00 PM FUV, Provider: Daphne Mayes, Status: Pen, Time: 2:00 PM [facility] 250 DO Work Phone: Start: 01-31-2023 Patient encounter procedure FUVPACEMKR, Provider: [facility],EMCPACEMMARIANO, Status: Pen, Time: 1:00 PM [facility] 250 DO Work Phone: Start: 01-03-2023 COVID-19 Vaccine ( season) COVID-19 Vaccine ( season) [facility] Start: 01-03-2023 Influenza vaccination Influenza Vacc ine (#1) [facility] Start: 11-22-2022 ECHO, Provider: CARMEN DONNY [facility] 01,[id number], Status: Pen, Time: 10:45 AM ECHO, Provider: KENDY [facility] 01,[id number], Status: Pen, Time: 10:45 AM -[facility] 250 DO Work Phone: Start: 10-09-2022 FUV, Provider: Lupe Boswell, Status: Pen, Time: 10:40 AM FUV, Provider: Lupe Boswell, Status: Pen, Time: 10:40 AM -[facility] 250 DO Work Phone: Start: 08-02-2022 Creatinine measurement Creatinine Le lee ann [facility] Start: 08-02-2022 Potassium measurement Potassium Leve l [facility] Start: 07-17-2022 ECHO, Provider: CARMEN [place] [facility] 01,[id number], Status: Pen, Time: 9:45 AM ECHO, Provider: KENDY [facility] 01,[id number], Status: Pen, Time: 9:45 AM [facility] Work Phone: Start: 05-29-2022 ECHO, Provider: CARMEN ADRIAN [facility] 01,[id number], Status: Pen, Time: 2:30 PM ECHO, Provider: KENDY [facility] 01,[id number], Status: Pen, Time: 2:30 PM -[facility] 250 DO Work Phone: Start: 04-17-2022 FUV, Provider: Lupe Boswell, Status: Pen, Time: 11:10 AM FUV, Provider: Lupe Boswell, Status: Pen, Time: 11:10 AM -[facility] 250 DO Work Phone: Start: 02-01-2022 FUV, Provider: Daphne Mayes, Status: Pen, Time: 3:20 PM FUV, Provider: Daphne Mayes, Status: Pen, Time: 3:20 PM -[facility] 250 DO Work Phone: Start: 02-01-2022 Patient encounter procedure FUVPACEMKR, Provider: [facility],[id number], Status: Pen, Time: 2:20 PM [facility] Work Phone: Start: 11-20-2021 NURSEVST, Provider: PRABHJOT WALDRON ICE CREAM SHOP ASSOCIATE 1,[id number], Status: Pen, Time: 2:30 PM NURSEVST, Provider: PRABHJOT WALDRON ICE CREAM SHOP ASSOCIATE 1,[id number], Status: Pen, Time: 2:30 PM [facility] 250 DO Work Phone: Start: 11-20-2021 ECHO, Provider: CARMEN CAMPBELL [facility] 01,[id number], Status: Pen, Time: 1:30 PM ECHO, Provider: KENDY [facility] 01,[id number], Status: Pen, Time: 1:30 PM [facility] 250 DO Work Phone: Start: 10-09-2021 FUV, Provider: Lupe Boswell, Status: Pen, Time: 1:30 PM FUV, Provider: Lupe Boswell, Status: Pen, Time: 1:30 PM [facility] 320 DO Work Phone: Start: 08-28-2021 FUV, Provider: Daphne Mayes, Status: Pen, Time: 2:20 PM FUV, Provider: Daphne Mayes, Status: Pen, Time: 2:20 PM [facility] 320 DO Work Phone: Start: 08-28-2021 Patient encounter procedure FUVPACEMKR, Provider: [facility],[id number], Status: Pen, Time: 1:20 PM [facility] 320 DO Work Phone: Start: 08-02-2021 ICD CHANGE, Provider : [facility] GUIDE DOG MOBILITY INSTRUCTOR 4,[id number], Status: Pen, Time: 12:30 PM ICD CHANGE, Provider: [facility] GUIDE DOG MOBILITY INSTRUCTOR 4,[id number], Status: Pen, Time: 12:30 PM [facility] 3 DO Work Phone: Start: 08-02-2021 [facility], Provider: Daphne Mayes, Status: Pen, Time: 11:00 AM [facility], Provider: Daphne Mayes, Status: Pen, Time: 11:00 AM [facility] 3 DO Work Phone: Start: 07-19-2021 ICD CHANGE, Provider : [facility] GUIDE DOG MOBILITY INSTRUCTOR 4,[id number], Status: Pen, Time: 2:00 PM ICD CHANGE, Provider: [facility] GUIDE DOG MOBILITY INSTRUCTOR 4,[id number], Status: Pen, Time: 2:00 PM [facility] 320 DO Work Phone: Start: 07-19-2021 [facility], Provider: Daphne Mayes, Status: Pen, Time: 11:00 AM [facility], Provider: Daphne Mayes, Status: Pen, Time: 11:00 AM [facility] 320 DO Work Phone: Start: 07-17-2021 FUV, Provider: Daphne Mayes, Status: Pen, Time: 8:40 AM FUV, Provider: Daphne Mayes, Status: Pen, Time: 8:40 AM [facility] 320 DO Work Phone: Start: 07-17-2021 Patient encounter procedure FUVPACEMKR, Provider: [facility],DAVIAN, Status: Pen, Time: 7:40 AM [facility] 320 DO Work Phone: Start: 2014 RSV High Risk: (Elde rly (60+) or Population) (1 - Risk 60-74 years 1-dose series) RSV High Risk: (Elderly (60+) or Population) (1 - Risk 60-74 years 1-dose series) [facility] Start: 2014 RSV patient s and/or patients aged 60+ years (1 - 1-dose 60+ series) RSV patients and/or patients aged 60+ years (1 - 1-dose 60+ series) [facility] Start: 2004 Zoster Vaccines (1 of 2) Zoste r Vaccines (1 of 2) [facility] Start: 1994 Screening for malign ant neoplasm of breast Mammogram [facility] Start: 1976 DTaP/Tdap/Td Vaccine s (1 - Tdap) DTaP/Tdap/Td Vaccines (1 - Tdap) [facility] Start: 1973 Pneumococcal vaccination Pneum ococcal Vaccine (1 of 2 - PCV) [facility] Start: 1972 Diabetes mellitus screening Diabetes Screening [facility] Start: 1972 Hepatitis C screening Hepatitis C Sc reening [facility] Start: 1960 Pneumococcal Vaccine : 65+ Years (1 - PCV) Pneumococcal Vaccine: 65+ Years (1 - PCV) [facility] Start: 1960 Pneumococcal Vaccine : 65+ Years (1 of 2 - PCV) Pneumococcal Vaccine: 65+ Years (1 of 2 - PCV) [facility] Start: 04-03-1955 COVID-19 Vaccine (#1) COVID-19 Vacci ne (#1) [facility] Start: 1954 Lipid panel Lipid Panel [facility] Start: 1954 Medicare Annual Well ness Visit Medicare Annual Wellness Visit (AWV) [facility] Start: 1954 Screening for malign ant neoplasm of colon [facility] Start: 1954 Screening for osteoporosis Bone Dens ity Scan [facility] End: 02-28-2024 Cardiac Device Check - Remote Cardiac Device Check - Remote Implantable Cardiac Device Routine ICD (implantable cardioverter-defibrilla tor) in place 52 Occurrences starting 08/29/2023 until 02/28/2024 [facility] Work Phone: Comment on above: 52 Occurrences start ing 08/29/2023 until 02/28/2024 [facility] Payers Date Payer Category Payer Medicare [id number] 2023 Unknown [id number] 2023 Self-pay [id number] 2022 Dual Eligibility Medicare/Medicaid Organization [id number] 2022 Private Health Insurance [employer] DUAL COMPLETE [employer] DUAL COMPLETE [id number] 2022-Present Thomas Dailey [address] [place] [address] [id number] 2017 Medicare [id number] 2017 Medicaid [id number] 2017 Private Health Insurance [id number] 2017 Private Health Insurance [id number] 1959 Medicaid [id number] 1955 Unknown [id number] .840.1.740479.3.579.2 .59 1955 Unknown [id number] .840.1.531496.3.579.2 .59 1954 Unknown [id number] 2.16840.1.388780.3.579.2 .59 1954 Unknown [id number] 2.16840.1.578041.3.579.2 .59 1954 Unknown [id number] 2.16840.1.477651.3.579.2 .593 1954 Unknown [id number] 2.16.840.1.258037.3.579.2 .593 1954 Unknown [id number] 2.16.840.1.357391.3.579.2 .593 1954 Unknown [id number] 2.16.840.1.298361.3.579.2 .593 1954 Unknown [id number] 2.16.840.1.545185.3.579.2 .593 1954 Unknown [id number] 2.16.840.1.387139.3.579.2 .593 1954 Unknown [id number] 2.840.1.698383.3.579.2 .593 1954 Unknown [id number] 2.840.1.958598.3.579.2 .593 1954 Unknown [id number] 2.16840.1.869956.3.579.2 .593 1954 Unknown [id number] 2.16840.1.070246.3.579.2 .1068 1954 Unknown [id number] 2.840.1.947653.3.579.2 .1068 1954 Unknown [id number] 2.840.1.247288.3.579.2 .1068 1954 Unknown [id number] 2.16840.1.059331.3.579.2 .356 1954 Unknown [id number] 2.16.840.1.307495.3.579.2 .356 1954 Unknown [id number] 2.16.840.1.055249.3.579.2 .356 1954 Unknown [id number] 2.16840.1.324329.3.579.2 .356 1954 Unknown [id number] 2.16840.1.549411.3.579.2 .356 1954 Unknown [id number] 2.840.1.383470.3.579.2 .356 1954 Unknown [id number] 2.840.1.749195.3.579.2 .1245 1954 Unknown [id number] 2.0.1.952948.3.579.2 .1246 1954 Unknown [id number] 2.840.1.573864.3.579.2 .1286 1954 Unknown [id number] 2.0.1.315919.3.579.2 .124 1954 Unknown [id number] 2.0.1.827809.3.579.2 .124 1954 Unknown [id number] 2.0.1.347391.3.579.2 .1244 Medicare [id number] Medicare Medicare [id number] Private Health Insurance [id number] Unknown Unknown [id number] .1.297869.3.579.2 .531 Unknown [id number] .0.1.234028.3.579.2 .531 Unknown [id number] 2.0.1.331282.3.579.2 .531 Unknown [id number] .0.1.001631.3.579.2 .531 Social History Date Type Detail Facility Start: 10-09-2021 End: 11-18-2023 Caffeine use Caffeine use [facility] Comment on above: 1 1/2 daily (Pop); Start: 1955 Sex Assigned At Female F [facility] Start: 10-09-2021 End: 11-18-2023 Sex Assigned At [facility] Start: 02-25-2023 End: 05-31-2024 Tobacco smoking status NHIS Never smoked tobacco [facility] Work Phone: Start: 02-25-2023 Tobacco use and exposure Smokeless tobacco non-user [facility] Work Phone: Start: 1955 [facility] Start: 02-15-2023 End: 06-10-2024 Exposure to SARS-CoV-2 (event) Not sure [facility] Start: 08-29-2023 End: 06-10-2024 Alcoholic beverage intake Lifetime non-drinker (finding) [facility] Work Phone: Start: 05-31-2024 End: 06-14-2024 Sex Female (finding) [facility] Functional Status Date Assessment Result Facility 10-09-2021 PHQ-9 [id number] Moderate (10-14) [facility] 250 DO Work Phone: Clinical Notes 08-02-2021 [...] AICD, device is assessed by electrophysiology at [facility] 3-cardiac catheterization 8 years ago at [facility] was normal 4-sleep apnea supposed to [...] Attestation By signing my name below, I, Jyotsna Granados LPN , Scribe attest that this documentation [...] discussion and plan. documented in this encounter [facility] Work Phone: 06-10-2024 Instructions Jyotsna Thayer LPN [...] be sent through Care Everywhere.Heart Healthy Diet (Citizen Of [place])documented in this encounter [facility] Work Phone: 05-31-2024 Evaluation note Diagnosis Onset Date Resolution Depression acute May 31, 2024 11:18am Heart failure acute May 11:18am Impaired fasting glucose acute May 31, 2024 11:18am Obesity, Class II, BMI 35-39.9 acute May 31 11:18am Obstructive sleep apnea acute J anuary 2024 11:18am Osteoarthritis acute May 312024 11:18am [facility] Work Phone: 1(951) 588-649910-29-2024 Evaluation note* Diagnosis Onset Date Resolution Status Admit Date Depression acute March 02, 2024 10:47am [facility] Work Phone: 1(653) 188-643607-16-2024 History of Present illness Narrative* Lupe Boswell [...] AICD, device is assessed by electrophysiology at [facility] 3-cardiac catheterization 8 years ago at [facility] was normal 4-sleep apnea supposed to [...] exam, discussion and plan. [facility] Phone: 1(584) 942-451107-16-2024 Instructions* Patient Instructions* Scarlet Loomis LPN - [...] 6 months with lab [facility] Work Phone: 1([phone]) 209-926604-26-2024 History of Present illness Narrative* Daphne Mayes [...] dictation application being used. [facility] Work Phone: 1(413) 922-817804-26-2024 Instructions* Patient Instructions* Anel Samano RN - [...] MD, FACC, FACP, FHRS [facility] Work Phone: 1(316) 718-970001-24-2024 Evaluation note* Encounter Date Diagnosis Assessment Notes Treatment Notes Treatment Clinical Notes May, Influenza A (ICD-10 - J10.1) resolved. discussed symptomatic care May, Acute bronchitis, unspecified organism (ICD-10 - J20.9) No further antibiotics or steroids indicated. Recommened conservative measures for help w laryngitis. May, Cardiomyopathy as manifestation of underlying disease (ICD-10 - I43) Pt states she has appt today w her technical instructor course developer. [facility] Other 01-08-2024 History of Present illness Narrative* Lupe Boswell MD - 05/12/2023 1:30 PM EST Subjective Nya Bell is a 67 y.o. female Chief Complaint Follow-up HPI Patient is in the office for follow-up for the problems noted below. She was in [place] recently and had flu syndrome which left her with significant bronchitis that was noted during today's visit. Her lab data from [place] was reviewed, cardiac enzymes were normal other [...] AICD, device is assessed by electrophysiology at [facility] 3-cardiac catheterization 8 years ago at [facility] was normal 4-sleep apnea supposed to [...] my name below, Africa Nur LPN , Scribhyun attest that this documentation has been prepared under the direction and in the presence of Lupe Boswell MD. documented in this [facility] Work Phone: [phone]) 861-950901-08-2024 Instructions* Patient Instructions* Africa Noland LPN - [...] follow up per routine [facility] Work Phone: [phone]) 344-876910-24-2023 History of Present illness Narrative* Maurizio Jorgensen, CHIEF INNOVATION OFFICER-SLEEP LAB TECHNOLOGIST - 02/25/2023 10:00 AM EDT CARDIOLOGY OFFICE VISIT CHIEF COMPLAINT Chief Complaint Patient presents with Device Check Routine check up HISTORY OF PRESENT ILLNESS HPI The patient is a 67-year-old female who is followed for nonischemic cardiomyopathy with a left ventricular ejection fraction improved to 60 to 65% per 2D echocardiogram dated November 22, 2022, [place] [employer] class II- III, stage C [...] per 2D echocardiogram dated November 22, 2022, [place] [employer] class III, stage C heart failure. 2. Upgrade to an AV biventricular ICD on August 02, 2021 (Medtronic cobalt XT HF Quad BALANCE AND HAIRSPRING ASSEMBLER-D). Initial implant on January 25, 2015. 3. Valvular heart disease consisting of mild MR per 2D echocardiogram dated November 22, 2022. 4. Left heart catheterization in 2015 revealing normal coronaries at [facility]. 5. Obstructive sleep apnea, noncompliant with [...] furosemide. 2. Obtain ICD checks per the [facility] device clinic as scheduled. Patient was instructed to obtain an in clinic device check at [facility] approximately 2 weeks prior to the [...] to prepare this document. documented in this [facility] Work Phone: [phone]) 950-870810-24-2023 Instructions* Patient Instructions* ISAI Mora - 02/25/2023 10:00 AM EDT When taking the lasix, increase dietary potassium intake (orange juice, bananas, skin on potatoes) documented in [facility]Sum[facility] Work Phone: [phone]) [phone] Evaluation note* Encounter Date Diagnosis Assessment Notes Treatment Notes Treatment Clinical Notes Jan, Bronchitis (ICD-10 - J40) Discussed diagnosis with patient. Patient to take antibiotic daily with food as prescribed. Finish entire course of antibiotic. Proair inhaler sent today for patient to use PRN cough/wheezing/short ness of breath. Ufpp-qkb-yuezxco antipyretics as needed. Warning signs and symptoms reviewed with patient today. Patient to go immediately to the ER should she experience any of these. Patient to notify office should her symptoms persist and not improve. Patient verbalizes understanding and agrees to treatment plan. [facility] Other 08-29-2023 Evaluation note* Encounter Date Diagnosis Assessment Notes Treatment Notes Treatment Clinical Notes Dec, Bronchitis (ICD-10 - J40) Discussed diagnosis with patient. Finish entire course of antibiotic. Proair inhaler sent today for patient to use PRN cough/wheezing/short ness of breath. Tessalon Pearles ordered to take as needed for cough. Increase fluids and rest. Apao-kpi-uvijjbi antipyretics as needed. Warning signs and symptoms reviewed with patient today. Patient to go immediately to the ER should she experience any of these. Patient to notify office should her symptoms persist and not improve. Patient verbalizes understanding and agrees to treatment plan. [facility] Other 08-22-2023 Evaluation note* Encounter Date Diagnosis Assessment Notes Treatment Notes Treatment Clinical Notes Dec, Acute pain of right shoulder (ICD-10 - M25.511) Check xray. Add meds for pain relief and muscle relaxation. Will call pt w xray results. Dec, Chest congestion (ICD-10 - R09.89) Start w CXR and assess for pneumonia - will base treatment on CXR results later today. [facility] Other 02-16-2023 NoteCONSULTATION CONSULTATION DATE: 06/20/2022 HISTORY [...] be followed up in the office thereafter.[id number] NoteCONSULTATION CONSULTATION DATE: 05/23/2022 HISTORY OF PRESENT [...] be followed up in the clinic thereafter.[id number] Evaluation note* Encounter Date Diagnosis Assessment Notes Treatment Notes Treatment Clinical Notes May, Vitamin D deficiency (ICD-10 - E55.9) [facility] Other 01-17-2023 Evaluation note* Encounter Date Diagnosis [...] - I43) Reviewed notes from her specialist [facility] Other 12-06-2022 NoteCONSULTATION CONSULTATION DATE: 04/09/2022 CHIEF [...] was encouraged to follow up with the technical instructor course developer with regards to her pacemaker. The patient is looking to schedule herself with regards to a physical and blood work by Dr. Pereira. CC: Anupam Pereira M.D.[id number] NotePROCEDURE: XR FINGER MIN 2 VIEWS COMPARISON: None. HISTORY: Acquired deformity of right finger FINDINGS: BONES:Persistent flexion of the fourth finger. No acute fracture or dislocation SOFT TISSUES:Soft tissue swelling EFFUSION:None visible. OTHER: Negative. IMPRESSION: Soft tissue swelling, no acute fracture Electronically authenticated by: CECY CHRISTIAN Date: 2022-02-05 07:14[facility]03-31-2022 NoteElectrophysiology Procedure TestingPlease click on the link to view the study images (Normal)[facility] 250 DO Work Phone: 1(903) [phone] NoteElectrophysiology Procedure Testing Please click on the link to view the study images (Normal)[facility] 250 DO Work Phone: 1(173) 131-559303-31-2022 NoteElectrophysiology Procedure Testing Please click on the link to view the study images (Normal)[facility] 3 DO Work Phone: [phone] NoteElectrophysiology Procedure Testing Please click on the link to view the study images (Normal)[facility] 320 DO Work Phone: Chief complaint+Reason for visit Narrative* Chief Complaint headache, back pain, sore throat, ear pain Memory Concerns Reason for Visit COVID-19 [facility] Work Phone: Evaluation noteNo assessment information available [facility] Work Phone: Evaluation noteNo InformationNomercy hospital joplin Cook Taste Eat Other Evaluation note* Diagnosis ICD (implantable cardioverter-defibrillator) in place- Primary Morbid obesity (CMS/HCC) Morbid obesity Chronic systolic congestive heart failure (CMS/HCC) Cardiomyopathy, unspecified type (CMS/HCC) Dyspnea on exertion Other dyspnea and respiratory abnormality Obstructive sleep apnea syndrome in adult Other fatigue documented in this encounter [facility] Work Phone: Evaluation note* Diagnosis ICD (implantable [...] discuss treatment options documented in this encounter [facility] Work Phone: Evaluation note* Diagnosis Cardiomyopathy, unspecified type (CMS/HCC)- Primary ICD (implantable cardioverter-defibrillator) in place Obstructive sleep apnea syndrome in adult Class 2 obesity without serious comorbidity with body mass index (BMI) of 37.0 to 37.9 in adult, unspecified obesity type documented in this encounter [facility] Work Phone: Evaluation note* Diagnosis ICD (implantable cardioverter-defibrillator) in place documented in this encounter [facility] Work Phone: Evaluation note* Diagnosis Onset Date Resolution Status COVID-19 acute [facility] Work Phone: Evaluation note* Diagnosis Cardiomyopathy, unspecified type (Multi) Chronic systolic congestive heart failure (Multi) ICD (implantable cardioverter-defibrillator) in place Obstructive sleep apnea syndrome in adult Fatigue, unspecified type Never smoked cigarettes Class 2 obesity without serious comorbidity with body mass index (BMI) of 37.0 to 37.9 in adult, unspecified obesity type documented in this encounter [facility] Work Phone: Evaluation note* Diagnosis ICD (implantable cardioverter-defibrillator) in place- Primary Chronic systolic congestive heart failure Fatigue, unspecified type Obstructive sleep apnea syndrome in adult Never smoked cigarettes BMI 38.0-38.9,adult Class 2 obesity documented in this encounter [facility] Work Phone: History general Narrative - Reported* [...] ABLATION 06/2016 Hospitalization History See Sx Hx [facility] Other [employer] general Narrative - Reported* Type Description Date [...] Hospitalization History See Sx Hx Hospitalization History [facility] 06/03/22 [facility] Other Reason for referral (narrative)* Consultation (Routine) - Authorized Specialty Diagnoses / Procedures Referred By Contac t Referred To Contact Cardiology Diagnoses ICD (implantable cardioverter-defibrillator ) in place Procedures Follow Up In Cardiology Maurizio Jorgensen CHIEF INNOVATION OFFICER-SLEEP LAB TECHNOLOGIST [address] [facility], [address] [place] [address] Daphne Mayes MD [address] [facility] [place] [address] Referral ID Status Reason Start Date Expiration Date V isits Requested Visits Authorized [id number] Authorized 02/25/2023 02/25/2024 1 1 Electronically signed by Maurizio Jorgensen CHIEF INNOVATION OFFICER-[facility] at 02/25/2023 10:41 AM EDT [facility] Work Phone: Reonfu for referral (narrative)* Consultation (Routine) - Authorized Specialty Diagnoses / Procedures Referred By Contac t Referred To Contact Cardiology Diagnoses Cardiomyopathy, unspecified type (CMS/HCC) Procedures Follow Up In Cardiology Lupe Boswell MD [address] [facility] [address], [place] [place] [address] Lupe Boswell MD [address] [facility] [address], [place] [address] [place] [address] Referral ID Status Reason Start Date Expiration Date V isits Requested Visits Authorized [id number] Authorized 05/12/2023 05/11/2024 1 1 [facility] Work Phone: reason for referral (narrative)* Consultation (Routine) - Authorized Specialty Diagnoses / Procedures Referred By Contac t Referred To Contact Cardiology Diagnoses Chronic systolic congestive heart failure (Multi) Procedures Follow Up In Cardiology Lupe Boswell MD [address] [facility], [address] [place] [address] Lupe Boswell MD [address] [facility] [address] [place] [address] Referral ID Status Reason Start Date Expiration Date V isits Requested Visits Authorized [id number] Authorized 11/18/2023 11/17/2024 1 1 [facility] Work Phone: Reason for visit Narrative* Imaging (Routine) - Pending Review Specialty Diagnoses / Procedures Referred By Contac t Referred To Contact Cardiology Diagnoses ICD (implantable cardioverter-defibrillator) in place Procedures Cardiac Device Check - In Clinic Daphne Mayes MD [address] [facility] [address], [address] [place] [address] Phone: tel: fax: Referral ID Status Reason Start Date Expiration Date Visits Requested Visits Authorized [id number] Pending Review Perform Procedure 08/29/2023 08/28/2024 52 52 [facility] Work Phone: Summary Purpose Family History Unknown [...] Complaint cardiomyopathy Chief Complaint [place] [facility] [place] defib [place] issues Chief Complaint defib machine issues headache, back pain, sore throat, ear pain Chief Complaint headache, back pain, sore throat, ear pain Memory Concerns cardiomyopathy CC Adult Risk Stratification Reason for Visit COVID-19 Chief Complaint Admit Date Memory Concerns March 02, 2024 1 0:47am cardiomyopathy March 03, 2024 1 0:19am CC Adult Risk Stratification February 12:02pm [facility] May 31 11:18am Reason for Visit Admit Date Depression March 02, 2024 1 0:47am Chief Complaint Admit Date [facility] May 31 11:18am defib machine issues June 03, 2024 2:28pm Reason for Visit Admit Date Depression May 31, 2024 1 1:18am Heart failure May 31, 2024 1 1:18am Impaired fasting glucose May 31, 025 11:18am Obesity, Class II, BMI 35-39.9 May 062024 11:18am Obstructive sleep apnea May 31 11:18am Osteoarthritis May 31, 2024 1 1:18am Chief Complaint Admit Date [facility] May 31 11:18am defib machine issues June 03, 2024 2:28pm Amb Documentation June 08, 2024 1 :31pm [facility] ER f/u, broken wrist right June 14, 2024 1:11pm Chief Complaint Patient here S/P gen change. Done by Dr. Mayes at [facility] on 07/19/2021. Dr. Gaudencio Mendoza [...] AICD, device is assessed by electrophysiology at [facility], had recent battery change with no complications. * 3 cardiac catheterization 7 years ago at [facility] was normal * 4 extreme fatigue [...] AICD, device is assessed by electrophysiology at [facility], had recent battery change with no complications. * 3 cardiac catheterization 7 years ago at [facility] was normal * 4 extreme fatigue [...] AICD, device is assessed by electrophysiology at [facility], had recent battery change with no complications. * 3 cardiac catheterization 7 years ago at [facility] was normal * 4 extreme fatigue [...] AICD, device is assessed by electrophysiology at [facility] * 3 cardiac catheterization 7 years ago at [facility] was normal * 4 extreme fatigue [...] AICD, device is assessed by electrophysiology at [facility] * 3 cardiac catheterization 7 years ago at [facility] was normal * 4 extreme fatigue [...] scheduled. We will arrange for that at [facility]. Her weight is unchanged from previously and [...] AICD, device is assessed by electrophysiology at [facility] * 3 cardiac catheterization 7 years ago at [facility] was normal * 4 fatigue of unknown etiology. Improved with increased activities * 5 sleep apnea supposed to be on CPAP machine, encouraged patient to follow-up with a sleep lab to adjust the device. * 6 severe obesity, recommended low-calorie diet and more regular exercise. Reason for Referral Specialty Diagnoses / Procedures Referred By Talha Referred To Contact Cardiology Diagnoses ICD (implantable cardioverter-defibrillator) in place Procedures Cardiac Device Check - Remote Daphne Mayes MD [address] [address] Referral ID Status Reason Start Date Expiration Date Visits Requested Visits Authorized [id number] Pending Review Perform Procedure 08/29/2023 08/28/2024 52 52 Specialty Diagnoses / Procedures [facility] Referred To Contact Cardiology Diagnoses ICD (implantable cardioverter-defibrillator) in place Procedures Cardiac Device Check - In Clinic Daphne Mayes MD [address] [address] Referral ID Status Reason Start Date Expiration Date Visits Requested Visits Authorized [id number] Pending Review Perform Procedure 08/29/2023 08/28/2024 52 52 Specialty Diagnoses / Procedures [facility] Referred To Contact Diagnoses ICD (implantable cardioverter-defibrillator) in place Procedures ECG 12 lead (Clinic Performed) Dpahne Mayes MD [address] [facility], [address] [address] Referral ID Status Reason Start Date Expiration Date V isits Requested Visits Authorized [id number] Authorized 08/29/2023 08/28/2024 1 1 Additional Source Comments INFORMATION SOURCE (unrecogn ized section and content) DATE CREATED AUTHOR 10/24/[address] [facility] DATE CREATED AUTHOR AUTHOR'S ORGANIZ ATION 11/13/2018 [facility] DATE CREATED AUTHOR AUTHOR'S ORGANIZ ATION 08/02/2020 [facility] DATE CREATED AUTHOR AUTHOR'S ORGANIZ ATION 08/22/2022 [facility] DATE CREATED AUTHOR AUTHOR'S ORGANIZ ATION 10/14/2022 [facility] DATE CREATED AUTHOR AUTHOR'S ORGANIZ ATION 11/23/2022 [facility] DATE CREATED AUTHOR AUTHOR'S ORGANIZ ATION 12/10/2022 [facility] DATE CREATED AUTHOR AUTHOR'S ORGANIZ ATION 09/03/2023 [facility] DATE CREATED AUTHOR AUTHOR'S ORGANIZ ATION 03/05/2024 [facility] DATE CREATED AUTHOR AUTHOR'S ORGANIZ ATION 05/23/2024 [facility] DATE CREATED AUTHOR AUTHOR'S ORGANIZ ATION 06/05/2024 [facility] DATE CREATED AUTHOR AUTHOR'S ORGANIZ ATION 06/14/2024 [facility] Tubing [employer]iler Teams (unrecognized sec tion and content) Team [...] Active Daphne Mayes MD Attending Provider Active [employer] Team Leader Relationship Specialty Start Date End Date Anupam Pereira MD [address] [place] [id number] PCP - General 09/30/19 Team Status: Inactive Member Role Status Dates Anupam Pereira MD Attending Provider Active St art: May 08, 2023 End: May 08, 2023 Team Status: Inactive Member Role Status Dates Anupam Pereira MD Primary Care Provider Active Start: May 28, 2023 End: May 28, 2023 Gaudencio Mendoza MD Attending Provider Active Start: May 28, 2023 End: May 28, 2023 [employer] Team Leader Relationship Specialty Start Date End Date Anupam Pereira MD [address] [place] [address] PCP - General Family Medicine 04/16/23 Maurizio Jorgensen APRN-SLEEP LAB TECHNOLOGIST [address] [facility] Medical Office [facility] [address] [place] [address] Nurse Practitioner Cardiology 03/07/23 [employer] Team Leader Relationship Specialty Start Date End Date Anupam Pereira MD [facility] [facility] [place] [address] [place] [address] PCP - General Family Medicine 04/16/23 Maurizio Jorgensen CHIEF INNOVATION OFFICER-SLEEP LAB TECHNOLOGIST [address] [facility] [place] [address] Nurse Practitioner Cardiology 03/07/23 Team Status: Inactive Member Role Status Dates Anupam Pereira MD Primary Care Provider Active Start: December 02, 2023 End: December 02, 2023 Gaudencio Mendoza MD Attending Provider Active Start: December 02, 2023 End: December 02, 2023 Pulp Mill Team Leader Relationship Specialty Start Date End Date Anupam Pereira MD [address] [place] [address] PCP - General Family Medicine 04/16/23 Maurizio Jorgensen CHIEF INNOVATION OFFICER-SLEEP LAB TECHNOLOGIST [address] [facility], [facility] [address] [place] [address] Nurse Practitioner Cardiology 03/07/23 Team Status: Active Member Role Status Dates Anupam Pereira MD Primary Care Provider Active Start: March 03, 2024 Lupe Boswell MD Other Provider Active Start: March 03, 2024 Chasity Harper MD Attending Provider Active Start: March 03, 2024 Team Status: Active Member Role Status Dates Anupam Pereira MD Primary Care Provide r, Attending Provider Active Start: March 03, 2024 Pulp Mill Team Leader Relationship Specialty Start Date End Date Anupam Pereira MD [address] [place] [address] PCP - General Family Medicine 04/16/23 Maurizio Jorgensen, CHIEF INNOVATION OFFICER-SLEEP LAB TECHNOLOGIST [address] [facility], [facility] [address] [place] [address] Nurse Practitioner Cardiology 03/07/23 Pulp Mill Team Leader Relationship Specialty Start Date End Date Anupam Pereira MD [address] [place] [address] PCP - General Family Medicine 04/16/23 Daphne Mayes MD [address] [facility], [facility] [address] [place] [address] Weed Control Inspector Electrophysiology 03/24/24 Team Status: Active Member Role Status Dates Anupam Pereira MD Primary Care Provider Active Start: June 08, 2024 Solange Isbell CMA Attending Provider Active Start: June 08, 2024 Team Status: Inactive Member Role Status Dates Anupam Pereira MD Primary Care Provide r, Attending Provider Active Start: June 14, 2024 End: June 14, 2024 Goals (unrecognized section and content) Goals may [...] Procedures Follow Up In Cardiology Maurizio Jorgensen, CHIEF INNOVATION OFFICER-SLEEP LAB TECHNOLOGIST [address] [facility], [place] [address] [place] [address] Daphne Mayes MD [address] [facility], [address] [address] Referral ID Status Reason Start Date Expiration Date V isits Requested Visits Authorized [id number] Authorized 02/25/2023 02/25/2024 1 1 Reason Comments Follow-up 6 month Reason Comments Follow-up 6 months Specialty Diagnoses / Procedures Referred By Contac t Referred To Contact Cardiology Diagnoses Cardiomyopathy, unspecified type (Multi) Procedures Follow Up In Cardiology Lupe Boswell MD [address] [facility] 2, [address] [address] Lupe Boswell MD [address] [place] [address] 2, [address] [address] Referral ID Status Reason Start Date Expiration Date V isits Requested Visits Authorized [id number] Authorized 05/12/2023 05/11/2024 1 1 Specialty Diagnoses / Procedures Referred By Contac t Referred To Contact Cardiology Diagnoses Chronic systolic congestive heart failure Procedures Follow Up In Cardiology Lupe Boswell MD [address] [facility] 2, [address] [address] Phone: tel: fax: Lupe Boswell MD [address] [facility] [address], [address] [address] Phone: tel: fax: Referral ID Status Reason Start Date Expiration Date V isits Requested Visits Authorized [id number] Authorized 11/18/2023 11/17/2024 1 1 FOR RECORDS [...] BE BASED ON THE PRIMARY CLINICAL RECORDS. [email or web address] [facility]. provides no warranty or guarantee of the accuracy or completeness of information in this document.
[2024-07-11 17:48] VITALS: BP 156/82; PULSE 74; TEMP 36.8; O2SAT 98; BMI 36.9
[2024-07-11] MEDS: OXYCODONE HCL/ACETAMINOPHEN 5MG/325MG 1 TAB PO (21:05)
--- NOTE | 2024-07-11 21:05 | ED_ITS ---
Documented by User: JOSIAS Proctor 07/11/24 21:12 HPI HPI - Extremity Injury (Upper) General Chief Complaint: Extremity Injury, Upper Stated Complaint: SWELLING RIGHT UPPER EXTREMITY Time Seen by Provider: 07/11/24 20:32 Source: patient and family Mode of arrival: walk-in Limitations: no limitations History of Present Illness HPI narrative: Patient is a 68-year-old female who presents to the emergency department for pain in the right hand and wrist. This patient was seen in this emergency department 4 weeks ago and diagnosed with a distal radius fracture. She was placed in a cast by orthopedics. 3 weeks ago the cast was cut and rewrapped by orthopedics in the office because the patient stated that the cast was too tight and she was having too much pain. She states she has continued to have pain and swelling in the fingers of the right upper extremity. She states she thought she had an appointment tomorrow with orthopedics but the appointment is not for another week, daughter states that the patient was tearful and upset that she had to wait another week to see Ortho so she came to the emergency department tonight. She reports pain in the fingers with movement. No paresthesia. Related Data Home Medications ?Medication ?Instructions ?Recorded ?Confirmed carvedilol 3.125 mg tablet 3.125 mg PO BID 12/25/23 12/25/23 omeprazole 20 mg capsule,delayed 20 mg PO DAILY 12/25/23 12/25/23 release sacubitril 49 mg-valsartan 51 mg 1 tab PO BID 12/25/23 12/25/23 tablet (Entresto) sertraline 100 mg tablet 100 mg PO DAILY 12/25/23 12/25/23 Previous Rx's ?Medication ?Instructions ?Recorded hydrocodone 5 mg-acetaminophen 325 1 tab PO Q6H PRN pain 2 days #6 07/11/24 mg tablet tabs Allergies Allergy/AdvReac Type Severity Reaction Status Date / Time adhesive tape AdvReac Mild Rash Verified 07/11/24 17:53 Opioid HPI Opioid Management Most Recent Pain and Opioid Data: Last Pain Scale 10 07/11/24 21:05 07/11/24 Review of Systems ROS Constitutional Denies: fever or chills Ears, nose, mouth, and throat Denies: throat pain or nasal congestion Respiratory Denies: shortness of breath Gastrointestinal Denies: nausea or vomiting Musculoskeletal Reports: extremity pain; Denies: back pain or neck pain Integumentary/Breast Denies: rash Neurological Denies: numbness in extremities or weakness in extremities Hematologic/Lymphatic Denies: easy bruising or easy bleeding [facility] Social History Little interest or pleasure in doing things: not at all Feeling down, depressed, or hopeless: not at all Exam Narrative Exam Narrative: Gen.: Awake, alert, in no distress Head: Normocephalic, atraumatic ENT: Moist mucous membranes Respiratory: No respiratory distress Extremities: Mild edema noted of the fingers with normal capillary refill less than 3 seconds in all digits, tenderness of the fingers diffusely Psych: Normal mood and affect Neuro: No focal neuro deficit Skin: Warm, dry, intact Constitutional Vital Signs, click to edit/add: Last Vital Signs Temp 98.3 F 07/11/24 17:48 Pulse 74 07/11/24 17:48 Resp 18 07/11/24 21:30 BP 156/82 H 07/11/24 17:48 Pulse Ox 98 07/11/24 17:48 O2 Del Method Room Air 07/11/24 17:48 Course Vital Signs Vital signs: Vital Signs Temperature 98.3 F 07/11/24 17:48 Pulse Rate 74 07/11/24 17:48 Respiratory Rate 18 07/11/24 17:48 Blood Pressure 156/82 H 07/11/24 17:48 Pulse Oximetry 98 07/11/24 17:48 Oxygen Delivery Method Room Air 07/11/24 17:48 Temperature 98.3 F 07/11/24 17:48 Pulse Rate 74 07/11/24 17:48 Respiratory Rate 18 07/11/24 21:30 Blood Pressure 156/82 H 07/11/24 17:48 Pulse Oximetry 98 07/11/24 17:48 Oxygen Delivery Method Room Air 07/11/24 17:48 MDM - Extremity Injury (Upper) MDM Narrative Medical decision making narrative: Patient cast was removed with cast lens cutter the ER. Her right wrist has no edema or obvious deformity. Right forearm is soft and compressible. She has diffuse tenderness of the wrist and fingers. Suspect an intolerance to the cast position. She was placed in a metal forearm splint with loosely wrapped Tom wrap and remains neurovascularly intact. She was given a short course of analgesics and her orthopedic appointment was rescheduled for tomorrow at noon. Follow-up with Dr. Aden and return to the ER if symptoms change or worsen. At this time, the patient has no evidence of compartment syndrome, no evidence of cellulitis, open wounds. SUPERVISED APC VISIT, PHYSICIAN ATTESTATION: Based on the medical record the care appears appropriate. ? Medical Records Attestation: I reviewed the patient's medical records. Discharge Plan Discharge Chief Complaint: Extremity Injury, Upper Clinical Impression: Acute pain of right wrist, Cast removal Patient Disposition: Home, Self-Care Time of Disposition Decision: 21:03 Condition: Good Prescriptions / Home Meds: New hydrocodone-acetaminophen 5-325 mg tablet 1 tab PO Q6H PRN (Reason: pain) 2 Days Qty: 6 0RF Rx Instructions: ICD 10- M25.531 No Action carvedilol 3.125 mg tablet 3.125 mg PO BID omeprazole 20 mg capsule,delayed release(DR/EC) 20 mg PO DAILY Entresto 49-51 mg tablet 1 tab PO BID sertraline 100 mg tablet 100 mg PO DAILY Print Language: [place] Islander Instructions: Arthralgia (ED) Referrals: Norma Tapia MD [Primary Care Provider] - 1 week Clint Aden MD [Physician] - 07/12/24 12:30 pm Discharge Date/Time: 07/11/24 21:34 Documented by User: Harsh Taylor MD 07/12/24 01:02 HPI HPI - Extremity Injury (Upper) General Chief Complaint: Extremity Injury, Upper Stated Complaint: SWELLING RIGHT UPPER EXTREMITY Time Seen by Provider: 07/11/24 20:32 Related Data Home Medications ?Medication ?Instructions ?Recorded ?Confirmed carvedilol 3.125 mg tablet 3.125 mg PO BID 12/25/23 12/25/23 omeprazole 20 mg capsule,delayed 20 mg PO DAILY 12/25/23 12/25/23 release sacubitril 49 mg-valsartan 51 mg 1 tab PO BID 12/25/23 12/25/23 tablet (Entresto) sertraline 100 mg tablet 100 mg PO DAILY 12/25/23 12/25/23 Previous Rx's ?Medication ?Instructions ?Recorded hydrocodone 5 mg-acetaminophen 325 1 tab PO Q6H PRN pain 2 days #6 07/11/24 mg tablet tabs Allergies Allergy/AdvReac Type Severity Reaction Status Date / Time adhesive tape AdvReac Mild Rash Verified 07/11/24 17:53 Opioid HPI Opioid Management Most Recent Pain and Opioid Data: Last Pain Scale 10 07/11/24 21:05 07/11/24 PFS PFS Social History Little interest or pleasure in doing things: not at all Feeling down, depressed, or hopeless: not at all Exam Constitutional Vital Signs, click to edit/add: Last Vital Signs Temp 98.3 F 07/11/24 17:48 Pulse 74 07/11/24 17:48 Resp 18 07/11/24 21:30 BP 156/82 H 07/11/24 17:48 Pulse Ox 98 07/11/24 17:48 O2 Del Method Room Air 07/11/24 17:48 Course Vital Signs Vital signs: Vital Signs Temperature 98.3 F 07/11/24 17:48 Pulse Rate 74 07/11/24 17:48 Respiratory Rate 18 07/11/24 17:48 Blood Pressure 156/82 H 07/11/24 17:48 Pulse Oximetry 98 07/11/24 17:48 Oxygen Delivery Method Room Air 07/11/24 17:48 Temperature 98.3 F 07/11/24 17:48 Pulse Rate 74 07/11/24 17:48 Respiratory Rate 18 07/11/24 21:30 Blood Pressure 156/82 H 07/11/24 17:48 Pulse Oximetry 98 07/11/24 17:48 Oxygen Delivery Method Room Air 07/11/24 17:48 MDM - Extremity Injury (Upper) MDM Narrative Medical decision making narrative: Patient cast was removed with cast lens cutter the ER. Her right wrist has no edema or obvious deformity. Right forearm is soft and compressible. She has diffuse tenderness of the wrist and fingers. Suspect an intolerance to the cast position. She was placed in a metal forearm splint with loosely wrapped Tom wrap and remains neurovascularly intact. She was given a short course of analgesics and her orthopedic appointment was rescheduled for tomorrow at noon. Follow-up with Dr. Aden and return to the ER if symptoms change or worsen. At this time, the patient has no evidence of compartment syndrome, no evidence of cellulitis, open wounds. SUPERVISED APC VISIT, PHYSICIAN ATTESTATION: Based on the medical record the care appears appropriate. I, Dr Taylor, have reviewed the above progress note and course of action in the ER; agree with the above. I have personally gone over history and physical, and discussed disposition and treatment plan with the PA. Discharge Plan Discharge Chief Complaint: Extremity Injury, Upper Clinical Impression: Acute pain of right wrist, Cast removal Patient Disposition: Home, Self-Care Time of Disposition Decision: 21:03 Condition: Good Prescriptions / Home Meds: New hydrocodone-acetaminophen 5-325 mg tablet 1 tab PO Q6H PRN (Reason: pain) 2 Days Qty: 6 0RF Rx Instructions: ICD 10- M25.531 No Action carvedilol 3.125 mg tablet 3.125 mg PO BID omeprazole 20 mg capsule,delayed release(DR/EC) 20 mg PO DAILY Entresto 49-51 mg tablet 1 tab PO BID sertraline 100 mg tablet 100 mg PO DAILY Print Language: [place] Islander Instructions: Arthralgia (ED) Referrals: Norma Tapia MD [Primary Care Provider] - 1 week Clint Aden MD [Physician] - 07/12/24 12:30 pm Discharge Date/Time: 07/11/24 21:34
[2024-07-11] MEDS: OXYCODONE HCL/ACETAMINOPHEN 5MG/325MG 2 TAB PO (21:26)
--- NOTE | 2024-07-11 21:29 | PC.NURSE ---
Metal splint applied with AMOL as directed. Pt tolerated this well.
== END 2024-07-11 21:34 | disposition home or self-care (01) ==
PROVIDERS: Emergency Provider Emergency Medicine; PCP Family Medicine
DX: M25.531 Pain in right wrist (principal); S52.501D Unspecified fracture of the lower end of right radius, subsequent encounter for closed fracture with routine healing
CPT/HCPCS: 99283

== ENCOUNTER 2024-07-19 09:54 | Outpatient (OUT) | payer MEDICARE, MEDICAID, SELFPAY ==
--- NOTE | 2024-07-19 | XR_ITS ---
The [address] [address] Patient Name: NYA REDMOND MRN: [id number] date: 1955 Sex: F Assigned Patient Location: Current Patient Location: Accession/Order Number: [id number] Exam Date: 07/19/2024 10:59 Report Date: 07/19/2024 11:04 At the request of: MAREN ARCHER MD Procedure: XR wrist RT min 3V RIGHT WRIST - 3 views CLINICAL HISTORY: Right wrist pain. COMPARISON: Right wrist 06/21/2024 as well as others. FINDINGS: Previously identified dorsal calcification has improved since the prior studies suggesting a benign process. The cast has now been removed. Bones are grossly demineralized with negative ulnar variance of approximately 3 mm. There appears to be callus formation involving the distal aspect of the ulna possibly relating to prior fracture. Carpus demonstrate degenerative change particularly involving the scaphotrapezial joint. No bony erosions. XR/XR wrist RT min 3V IMPRESSION: DEGENERATIVE CHANGES INVOLVING THE CARPUS. INTERVAL IMPROVEMENT OF THE DORSAL CALCIFICATIONS WHEN COMPARED TO THE PRIOR STUDIES SUGGESTIVE OF A BENIGN PROCESS. CALLUS FORMATION IN THE REGION OF THE DISTAL ULNA SUGGESTIVE OF PRIOR FRACTURE. Impression dictated by: Elroy Barros Jr., D.O.07/19/2024 11:04 AM Dictation Location: [place] [address] Electronically authenticated by: [id number] Y Date: 07/19/2024 11:04
== END 2024-07-19 09:55 | disposition home or self-care (01) ==
LOC: EC 09:54
PROVIDERS: PCP Family Medicine; Visit Provider Orthopaedic Surgery
DX: S52.591D Other fractures of lower end of right radius, subsequent encounter for closed fracture with routine healing (principal)
CPT/HCPCS: 73110

== ENCOUNTER 2025-02-04 15:02 | Outpatient (OUT) | payer MEDICARE, MEDICAID, SELFPAY ==
--- OUTSIDE RECORDS SUMMARY | 2024-01-07 10:00 | XMS_ITS ---
Author Organization [facility] vices Address [address] [place] [phone] Care Team Providers Care Quality Assurance Project Manager Name Role Phone Saloni Rowna Unavailable [phone] REASON FOR VISIT Try In Medications Medication [...] Encounter Location Date Provider Diagnosis [facility] [address] [place] [phone] 01/07/2024 Saloni Rowan Plan Of Treatment No Information Progress Notes * Chantelle BELL LDOB:1955 (69 yo F)Acc No.[id number]:01/07/2024 Dental Note Patient: Chantelle LAKE Provider: Adrienne Rowan DDS :1955 A ge:68 Y S ex:Female Date:01/07/2024 Address:[address] [place], [place] [phone] Subjective: * Chief Complaints: * 1 . Try In. * Medical History: * Medications: T aking Carvedilol , Taking Omeprazole , Taking Entresto , Taking Sertraline HCl 100 MG Tablet TAKE 1 TABLET BY MOUTH EVERY DAY Oral Objective: * Vitals: Assessment: Plan: * Treatment: * Billing Information: * Visit Code: * Procedure Codes: * Electronic signature of Danelle Rowan DDS on 02/04/2025 at 10:39 AM EDT Sign off status: Pending * Provider: Adrienne Rowan DDS Date: 0 01/07/2024 Generated for Cooper batres/Amparo/Torito on: 1 10:39 AM EDT
--- OUTSIDE RECORDS SUMMARY | 2024-08-09 07:40 | XMS_ITS ---
Author Organization [facility] Address [address] [place] [address] Care Team Providers Care Hydroelectric Plant Maintainer Name Role Phone Norma Tapia M.D. Primary Care Provider Unavail able Clint Aden Unavailable [phone] Chloe Jacobo Unavailable REASON FOR VISIT RIGHT STYLOID FX Encounters Encounter Location Date Provider Diagnosis [facility] Office [address] [place] [address] [place] [address] 08/09/2024 [facility] Acute pain of right wrist M25.531 and Contusion of right wrist, initial encounter S60.211A Assessments Encounter Date Diagnosis (ICD Code) Assessment Notes Treatment Notes Treatment Clinical Notes Section Notes 08/09/2024 Acute pain of right wrist (ICD-10 - M25.531) Right EPL partial tear versus tenosynovitis Right distal radius bony contusion 08/09/2024 Contusion of right wrist, initial encounter (ICD-10 - S60.211A) Right EPL partial tear versus tenosynovitis Right distal radius bony contusion 08/09/2024 Other Reviewed patient's MRI results with her and [...] 2 months as she does live in [place] part-time with her significant other. Right EPL [...] 2 months as she does live in [place] part-time with her significant other. Pending Test Test Name Order Date SCC- PT/OT EVAL AND TREAT 3X/WEEK FOR 6 WEEKS 08/09/2024 Next Appt Details Follow Up: 9 WEEKS, Reason: Progress Notes * NYA REDMONDDOB:1955 ([age] yo F)Acc No.[id number]:08/09/2024 Patient: NYA LAKE Provider: JOSIAS Altamirano :1955 A ge:68 Y S ex:Female Date:08/09/2024 Address:[address] [place] [address] Pcp:Norma Tapia M.D. Subjective: * Chief Complaints: * 1 . RIGHT STYLOID FX. * HPI: G eneral Follow Up Information: Patient returns the office today for recheck [...] Medical History: Objective: * Vitals: * Examination: G eneral examination: O n exam patient is in no distress, age-appropriate, [...] refill and sensation intact all fingers and thumb. M RI Imaging Studies: M RI right wrist without contrast was reviewed from [facility] from 08/03/24 Impression No linear fracture. Subtle carpal distal radius bony edema. Likely related to degenerative change and possible bony contusion. Degenerative central fibrocartilage tendon with small amount effusion in the distal radial ulnar joint. No traumatic tear. Findings of tenosynovitis/partial tear of the extensor pollicis longus at Disha's tubercle. Assessment: * Assessment: 1. C ontusion of right wrist, initial encounter - S60.211A (Primary) 2 . A cute pain of right wrist - M25.531 Right EPL partial tear versu s tenosynovitis Right distal radius bony contusion. Plan: * Treatment: 2. A cute pain of right wrist L AB: SCC- PT/OT EVAL AND TREAT 3X/WEEK FOR 6 WEEKS 3. O thers Notes: Reviewed patient's MRI results with her [...] 2 months as she does live in [place] part-time with her significant other. * Preventive Medicine: MIPS Measures: C MS139 Fall Risk S creening: O ne fall with injury in the past year. # 155 - Falls Plan of Care P brent of Care: D ocumented, T ype of fall plan of care: B alance, strength and gait training or instruction provided. Screenings: F all Risk Screening F all Risk Assessment: O ne fall with injury in the past year. EFRAIN Screening: F ALLS: Screening for Future Fall Risk H ave you had two or more falls in the past year? N o, H ave you had any falls with injury in the past year? Y es. * Follow Up: 9 WEEKS Forms: * Images: * Electronic signature of Angel Jacobo PA-C on 02/04/2025 at 10:39 AM EDT Sign off status: Pending * Provider: JOSIAS Altamirano Date: 0 08/09/2024 Generated for [place] batres/Faxing/eTransmitting on: 1 10:39 AM EDT History and Physical Notes * HPI (History of Present Illness) Category Sub-Category Detail Notes Category Not es General Follow Up Information Patient returns the office [...] decreased pain in the wrist and thumb. Examination Category Sub-Category Detail Notes Category Not es General examination On exam patient is in no distress, age-appropriate, [...] refill and sensation intact all fingers and thumb. MRI Imaging Studies MRI right wrist without contrast was reviewed from [facility] from 08/03/24 Impression No linear fracture. Subtle carpal distal radius bony edema. Likely related to degenerative change and possible bony contusion. Degenerative central fibrocartilage tendon with small amount effusion in the distal radial ulnar joint. No traumatic tear. Findings of tenosynovitis/partial tear of the extensor pollicis longus at Disha's tubercle.
--- OUTSIDE RECORDS SUMMARY | 2024-10-11 07:40 | XMS_ITS ---
Author Organization [facility] Address [address] [place] [address] Care Team Providers Care Sheet Hanger Name Role Phone Norma Tapia M.D. Primary Care Provider Clint Bhardwaj [facility] [phone] REASON FOR VISIT RIGHT WRIST PAIN, RIGHT WRIST CONTUSION Encounters Encounter Location Date Provider Diagnosis [facility] [address] [place] [address] [place] [address] 10/11/2024 Clint Aden Plan Of Treatment No Information Progress Notes * NYA REDMONDDOB:1955 ([age] yo F)Acc No.[id number]:10/11/2024 Patient: NYA LAKE Provider: Augusto Aden MD :1955 A ge:69 Y S ex:Female Date:10/11/2024 Address:[address] [place], [place] [id number] Pcp:Norma Tapia M.D. Subjective: * Chief Complaints: * 1 . RIGHT WRIST PAIN, RIGHT WRIST CONTUSION. * Medical History: Objective: * Vitals: Assessment: Plan: * Treatment: Forms: * Images: * Electronic signature of Henry Aden MD on 02/04/2025 at 10:39 AM EDT Sign off status: Pending * Provider: Augusto Aden MD Date: 0 10/11/2024 Generated for Printi ng/Faxing/eTransmitting on: 1 10:39 AM EDT
--- OUTSIDE RECORDS SUMMARY | 2025-02-04 15:14 | XMS_ITS | Clinical Summary ---
Author Organization [facility] Address [address] [place] [address] Phone Care Team Providers Care Elementary Science Teacher Name Role Phone Norma Tapia MD Primary Care Provider [phone] Daphne Ngo MD Unavailable Allergies Active Allergy Reactions Criticality Noted Date Comments Adhesive Unknown 10/25/2013 Medications omeprazole (PriLOSEC) [address] capsule Take 1 capsule (20 mg) by mouth once daily in the morning. Before Breakfast Active sertraline (Zoloft) 50 mg tablet Take 1 tablet (50 mg) by mouth 2 times a day. Active metFORMIN XR 500 mg 24 hr tablet Take 1 tablet (500 mg) by mouth 2 times daily (morning and late afternoon). 5 Active nebivolol (Bystolic) 2.5 mg tabletIndicatio ns:Chronic systolic congestive heart failure (Multi) Take 1 tablet (2.5 mg) by mouth once daily. 90 tablet 3 5 06/10/19 26 Active valsartan (Diovan) 80 mg tabletIndicatio ns:Chronic systolic congestive heart failure (Multi) Take 1 tablet (80 mg) by mouth once daily. 90 tablet 3 5 06/10/19 26 Active Active Problems Problem Noted Date Diagnosed Date BMI 38.0-38.9,adult 06/10/2024 Never smoked cigarettes 08/29/2023 Obstructive sleep apnea syndrome in adult 2022 ICD (implantable cardioverter-defibrillator) in place 02/22/2023 Fatigue 02/22/2023 Dyspnea 02/22/2023 Chronic systolic congestive heart failure (Multi ) 02/22/2023 Cardiomyopathy (Multi) 02/22/2023 Resolved Problems Problem Noted Date Diagnosed Date Resolved Date Encounter for medication rev iew and counseling 08/29/2023 06/10/2024 Encounter to discuss treatment options 08/29/2023 06/10/2024 Class 2 obesity without seri ous comorbidity with body mass index (BMI) of 37.0 to 37.9 in adult 02/25/2023 06/10/2024 Immunizations Immunization Administration Dates Next Due Tdap vaccine, age 7 year and older (BOOSTRIX, AD ACEL) 12/25/2023 Family History Medical History Relation Name Comments Diabetes Father Heart attack Father Dementia Mother Diabetes Mother Relation Name Status Comments Father Mother Social History Tobacco Use Types Packs/Day Years Used Date Smoking Tobacco: Never Smokeless Tobacco: Never Alcohol Use Standard Drinks/Week Comments Never 0 (1 standard drink = 0.6 oz pur e alcohol) PHQ-2 Answer Date Recorded Patient Health Questionnaire-2 Score 0 10/09/2021 Comments Unknown Sex and Gender Information Value Date Recorded Sex Assigned at Not on file Legal Sex Female 6:45 PM EST Gender Identity Not on file Sexual Orientation Not on file Last Filed Vital Signs Vital Sign [place] Time Taken Comments Blood Pressure 114/70 10/06/2024 10:07 AM EDT Pulse 60 10/06/2024 10:07 AM EDT Temperature 36.1 C (97 F) 08/09/2021 3:58 PM EDT Respiratory Rate 16 08/02/2021 9:42 AM EDT Oxygen Saturation - - Inhaled Oxygen Concentration - - Weight 88.5 kg (195 lb) 10/06/2024 10:07 AM EDT Height 152.4 cm (5') 10/06/2024 10:07 AM EDT Body Mass Index 38.08 10/06/2024 10:07 AM EDT Plan of Treatment Upcoming Encounters Date Type Department Care Team (Late st Contact Info) Description 05/18/2025 10:10 AM EST Office Visit [facility] [address] [facility] [address] [place] [phone] Shan Boswell MD 703 [facility] 2, [address] [place] [address] Health Maintenance Due Date Last Done Comments CT Colonography 1955 Colonoscopy 1955 Colorectal Cancer Screening 1955 FIT-DNA (Cologuard) 1955 FIT 1955 Lipid Panel 1955 Medicare Annual Wellness Visit (AWV) 1955 Sigmoidoscopy 1955 MMR Vaccines (1 of 1 - Standard series) 10/03/1955 Hepatitis C Screening 1972 Pneumococcal Vaccine (1 of 2 - PCV) 1973 Mammogram 1994 Zoster Vaccines (1 of 2) 2004 RSV High Risk: (Elderly (60+) or Population) (1 - Risk 60-74 years 1-dose series) 2014 Bone Density Scan 10/03/2019 Echocardiogram 11/23/2023 11/22/2022, 11/03, 12/15/2020, Additional history exists Creatinine Level 08/28/2024 08/29/2023, , 08/01/2020 Diabetes Screening 08/28/2024 08/29/2023, 08/02/2021 Potassium Level 08/28/2024 08/29/2023, 07/05, 08/01/2020 COVID-19 Vaccine ( - season) 2025 Influenza Vaccine (#1) 2025 DTaP/Tdap/Td Vaccines (2 - Td or Tdap) 12/24/2033 12/25/2023 HIB Vaccines Aged Out No longer eligi ble based on patient's age to complete this topic HPV Vaccines Aged Out No longer eligi ble based on patient's age to complete this topic Hepatitis A Vaccines Aged Out No long er eligible based on patient's age to complete this topic Hepatitis B Vaccines Aged Out No long er eligible based on patient's age to complete this topic IPV Vaccines Aged Out No longer eligi ble based on patient's age to complete this topic Meningococcal Vaccine Aged Out No cecy amadou eligible based on patient's age to complete this topic Rotavirus Vaccines Aged Out No longer eligible based on patient's age to complete this topic Procedures Procedure Name Priority Date/Time Associated Diagnosis Comments BASIC METABOLIC PANEL Routine 08/29/2023 9:44 AM EDT Chronic systolic congestive heart failure (Multi) ECHOCARDIOGRAM 11/22/2022 11:17 AM EDT from Last 3 Months or Most Recently Relevant to Health Maintenance Results * (ABNORMAL) Basic metabolic panel (08/29/2023 9:44 AM EDT) Glucose 105(H) 74 - 99 mg/dL LAB CHEMISTRY METHOD 08/29/2023 12:02 PM [facility] Sodium 143 136 - 145 mmol/L LAB CHEMISTRY METHOD 08/29/2023 12:02 PM [facility] Potassium 4.4 3.5 - 5.3 mmol/L LAB CHEMISTRY METHOD 08/29/2023 12:02 PM [facility] Chloride 107 98 - 107 mmol/L LAB CHEMISTRY METHOD 08/29/2023 12:02 PM [facility] Bicarbonate 29 21 - 32 mmol/L LAB CHEMISTRY METHOD 08/29/2023 12:02 PM [facility] Anion Gap 11 10 - 20 mmol/L LAB CHEMISTRY METHOD 08/29/2023 12:02 PM [facility] Urea Nitrogen 19 6 - 23 mg/dL LAB CHEMISTRY METHOD 08/29/2023 12:02 PM [facility] Creatinine 0.75 0.50 - 1.05 mg/dL LAB CHEMISTRY METHOD 08/29/2023 12:02 PM [facility] eGFR 87 >60 mL/min/1. 73m*2 LAB CHEMISTRY METHOD 08/29/2023 12:02 PM [facility] Comment: Calculations of estimated GFR are performed using the 2020 CKD-EPI Study Refit equation without the race variable for the IDMS-Traceable creatinine methods. https://jasn.asnjournals.org/content/early//ASN.4418673393 Calcium 9.5 8.6 - 10.3 mg/dL LAB CHEMISTRY METHOD 08/29/2023 12:02 PM [facility] Blood Venous blood specimen / Unknown Venipuncture / Unknown 08/29/2023 9:44 AM EDT 08/29/2023 9:45 AM EDT Lynn Kurtz Lyudmilanatalie PRODUCTION LINE MANAGER-RN NEW GR[facility] LAB BLOOD ORDERA BLES Final Result [facility] [address] [place] [address] * Echocardiogram (11/22/2022 11:17 AM EDT) 11/22/2022 11:1 7 AM EDT Narrative SYNGO - 11/22/2022 1:01 PM EDT [address], [address] [address] TRANSTHORACIC ECHOCARDIOGRAM REPORT Patient Name: NYA Hayward Physician: [id number] Shan Boswell MD, [facility] Study Date: 11/22/2022 Referring SHAN BOSWELL Physician: MRN/PID: [id number] PCP: Norma Tapia Accession/Order#: [id number] Department [facility] Location: Date of : 1955 Fellow: Gender: F Nurse: Admit Date: Lamination Spinner: Ashlyn Cam [facility], T Height: 152.40 cm CC Report to: Weight: 91.17 kg Study Type: Echocardiogram BSA: 1.87 m2 Blood Pressure: 134 /62 mmHg Diagnosis/ICD: I50.22-Chronic systolic (congestive) heart failure (CHF); I42.9-Cardiomyopathy, unspecified Indication: AICD, WALDEMAR, Obesity Procedure/CPT: Echo Complete w Full [id number] Study Detail: The following Echo studies were [...] 0.8 m/s (0.6-0.9m/s) PV Max P.3 mmHg [id number] Shan Boswell MD, [facility] Electronically signed on 11/22/2022 at 1:01:56 PM Final Procedure Note Shan Boswell MD - 11/22/[address], Suite [facility], [place] [address] TRANSTHORACIC ECHOCARDIOGRAM REPORT Patient Name: NYA REDMOND [place] Physician: [id number] Shan HairalfaIA, [facility] Study Date: 11/22/2022 Referring SHAN BOSWELL Physician: MRN/PID: [id number] PCP: Norma Tapia Accession/Order#: [id number] [facility] Location: Date of : 1955 Fellow: Gender: F Nurse: Admit Date: Lamination Spinner: Ashlyn Cam RDCS,T Height: 152.40 cm CC Report to: Weight: 91.17 kg Study Type: Echocardiogram BSA: 1.87 m2 Blood Pressure: 134 /62 mmHg Diagnosis/ICD: I50.22-Chronic systolic (congestive) heart failure (CHF); I42.9-Cardiomyopathy, unspecified Indication: AICD, WALDEMAR, Obesity Procedure/CPT: Echo Complete w Full [id number] Study Detail: The following Echo studies were performed: 2D, M-Mode,Doppler and color flow. PHYSICIAN INTERPRETATION: Left Ventricle: Left ventricular systolic function is normal, with anestimated ejection fraction of 60-65%. There are no regional wall motionabnormalities. The left ventricular cavity size is normal. SpectralDoppler shows a normal pattern of left ventricular diastolic filling. Left Atrium: The left atrium is normal in size. Right Ventricle: The right ventricle is normal in size. There is normalright ventricular global systolic function. A pacemaker wire is seen inthe right ventricle. Right Atrium: The right atrium is normal in size. Aortic Valve: The aortic valve appears structurally normal. There is noevidence of aortic valve stenosis. There is no evidence of aortic valve regurgitation. The peak instantaneousgradient of the aortic valve is 11.2 mmHg. The mean gradient of the aorticvalve is 6.0 mmHg. Mitral Valve: The mitral valve is mildly thickened. There is mild mitralvalve regurgitation. Tricuspid Valve: The tricuspid valve is structurally normal. There istrace tricuspid regurgitation. Pulmonic Valve: The pulmonic valve is structurally normal. There is noindication of pulmonic valve regurgitation. Pericardium: There is no pericardial effusion noted. Aorta: The aortic root is normal. Systemic Veins: The inferior vena cava appears to be of normal size. In comparison to the previous echocardiogram(s): When compared to studyfrom 12/15/2020, ejection fraction has increased from 45% up to 65%, thepreviously reported mild aortic stenosis is no longer seen. CONCLUSIONS: 1. Left ventricular systolic function is normal with a 60-65% estimatedejection fraction. 2. A pacemaker wire is seen in the right ventricle. 3. Mild mitral valve regurgitation. 4. Aortic valve stenosis is not present. 5. When compared to study from 12/15/2020, ejection fraction has increasedfrom 45% up to 65%, the previously reported mild aortic stenosis is nolonger seen. QUANTITATIVE DATA SUMMARY: 2D MEASUREMENTS: Normal [...] 0.8 m/s (0.6-0.9m/s) PV Max P.3 mmHg [id number] Shan Boswell MD, [facility] Electronically signed on 11/22/2022 at 1:01:56 PM Final us Shan Boswell MD CV ECHO PROCEDURES Final Res ult SYNGO from Last 3 Months or Most Recently Relevant to Health Maintenance Insurance MEDICAID [facility] [employer] [facility] DUAL ADVANTAGE MEDICAID [facility] [employer] [id number] [place] [address] DUAL ADVANTAGE Care Teams Elementary Science Teacher Relationship Specialty Start Date End Date Norma Tapia MD [address] [place] [id number] PCP - General Family Medicine 04/16/23 Daphne Ngo MD [address] [facility], [facility] [address] [place] [address] Tap And Die Maker Technician Electrophysiology 03/24/24
--- OUTSIDE RECORDS SUMMARY | 2025-02-04 15:14 | XMS_ITS | Encounter Summary ---
Author Organization [facility] Address [address] [place] [address] Phone Care Team Providers Care Motor And Controls Tester Name Role Phone Norma Tapia MD Primary Care Provider [phone] Daphne Ngo MD Unavailable Encounter Details Date Type Department Care Team (Late st Contact Info) Description 07/12/2024 Scanned Document [facility] [address] [place] [phone] Scanning, Generic Provider Social History Tobacco Use Types Packs/Day Years [...] on file Sexual Orientation Not on file documented as of this encounter Plan of Treatment Upcoming Encounters Date Type Department Care Team (Late st Contact Info) Description 05/18/2025 10:10 AM EST Office Visit [facility] 703 [facility] [address] [place] [address] Lupe Boswell MD 703 [facility] 2, [address] [place] [address] documented as of this encounter Visit Diagnoses Not on filedocumented in this encounter Additional Health Concerns Assessment Noted Time PHQ-9 Depression Total Score: 12 022 1:20 PM EDT A fall risk assessment has been complete d for the patient 11/18/2023 10:44 AM EDT documented as of this encounter Care Teams Motor And Controls Tester Relationship Specialty Start Date End Date Norma Tapia MD [address] [place] [address] PCP - General Family Medicine 04/16/23 Daphne Ngo MD [address] [facility] Medical [facility], [facility] [address] [place] [address] Architecture Department Chair Electrophysiology 03/24/24 documented as of this encounter
--- OUTSIDE RECORDS SUMMARY | 2025-02-04 15:14 | XMS_ITS | Encounter Summary ---
Author Organization [facility] Address [address] [place] [address] Phone Care Team Providers Care De Alcoholizer Name Role Phone Norma Tapia MD Primary Care Provider [phone] Lynn Jorgensen STAMPING PRESS OPERATOR-COUNSELOR AT LAW Unavailable Unavailable Norma Tapia MD Primary Care Provider [phone] Daphne Ngo MD Unavailable Encounter Details Date Type Department Care Team (Late st Contact Info) Description 11/06/2021 Orders Only [facility] [address] [place] [address] Conversion, Onbase Social History Tobacco Use Types Packs/Day Years Used Date Smoking Tobacco: Never Assessed PHQ-2 Answer Date Recorded Patient Health Questionnaire-2 Score 0 10/09/2021 Comments Unknown Sex and Gender Information Value Date Recorded Sex Assigned at Not on file Legal Sex Female 6:45 PM EST Gender Identity Not on file Sexual Orientation Not on file documented as of this encounter Plan of Treatment Upcoming Encounters Date Type Department Care Team (Late Contact Info) Description 05/18/2025 10:10 AM EST Office Visit [facility] 703 [facility] [address] [place] [address] Lupe Boswell MD 703 [facility] 2, [address] [place] [address] Scheduled Orders Name Type Priority Associated Diagnoses Orde r Schedule OUTSIDE LAB SCAN Lab Ordered: 11/06/2021 documented as of this encounter Visit Diagnoses Not on filedocumented in this encounter Additional Health Concerns Assessment Noted Time PHQ-9 Depression Total Score: 12 022 1:20 PM EDT documented as of this encounter Care Teams De Alcoholizer Relationship Specialty Start Date End Date Norma Tapia MD [address] [place] [address] PCP - General 09/30/19 04/15/23 Norma Tapia MD [address] [place] [address] PCP - General Family Medicine 04/16/23 Lynn Jorgensen, STAMPING PRESS OPERATOR-COUNSELOR AT LAW [address] [place] [address] [place] [address] Nurse Practitioner Cardiology 03/07/23 03/23/24 Daphne Ngo MD [address] [facility] Medical Office [address], [address] [place] [address] Household Assistant Electrophysiology 03/24/24 documented as of this encounter
--- OUTSIDE RECORDS SUMMARY | 2025-02-04 15:14 | XMS_ITS | Encounter Summary ---
Author Organization [facility] Address [address] [place] [address] Phone Care Team Providers Care Radio Sales Account Executive Name Role Phone Norma Tapia MD Primary Care Provider [phone] Lynn Jorgensen RETORT ENGINEER-TRAVELING PHLEBOTOMIST Unavailable Unavailable Norma Tapia MD Primary Care Provider [phone] Daphne Ngo MD Unavailable Encounter Details Date Type Department Care Team (Late st Contact Info) Description 07/31/2021 Orders Only [facility] [address] [place] [address] Conversion, Onbase Social History Tobacco Use Types Packs/Day Years Used Date Smoking Tobacco: Never Assessed Comments Unknown Sex and Gender Information Value Date Recorded Sex Assigned at Not on file Legal Sex Female 6:45 PM EST Gender Identity Not on file Sexual Orientation Not on file documented as of this encounter Functional Status * BP Answer Date of Assessment Author 113/59 08/02/2021 9:42 AM EDT Conversio n, [employer] [place] [facility] * Pulse Answer Date of Assessment Author 65 08/02/2021 9:42 AM EDT Conversio n, [employer] [place] [facility] documented as of this encounter Plan of Treatment Upcoming Encounters Date Type Department Care Team (Late st Contact Info) Description 05/18/2025 10:10 AM EST Office Visit [facility] [address] [facility] [address] [place] [phone] Lupe Boswell MD [address] [facility] [address], [address] [place] [address] Scheduled Orders Name Type Priority Associated Diagnoses Orde r Schedule OUTSIDE LAB SCAN Lab Ordered: 07/31/2021 documented as of this encounter Visit Diagnoses Not on filedocumented in this encounter Care Teams Radio Sales Account Executive Relationship Specialty Start Date End Date Norma Tapia MD [address] [place] [address] [place] [address] PCP - General 09/30/19 04/15/23 Norma Tapia MD [address] [place] [address] PCP - General Family Medicine 04/16/23 Lynn Jorgensen, RETORT ENGINEER-TRAVELING PHLEBOTOMIST [address] [place] [address] [place] [address] Nurse Practitioner Cardiology 03/07/23 03/23/24 Daphne Ngo MD [address] [facility] Medical Office Bldg, [address] [place] [address] Warp Picker Electrophysiology 03/24/24 documented as of this encounter
--- OUTSIDE RECORDS SUMMARY | 2025-02-04 15:14 | XMS_ITS | Encounter Summary ---
Author Organization [facility] Address [address] [place] [address] Phone Care Team Providers Care Storage Engineer Name Role Phone Norma Tapia MD Primary Care Provider [phone] Lynn Jorgensen LOCOMOTIVE ENGINEER DIESEL-TOUR BUS DRIVER Unavailable Unavailable Norma Tapia MD Primary Care Provider [phone] Daphne Ngo MD Unavailable Encounter Details Date Type Department Care Team (Late st Contact Info) Description 02/02/2021 Orders Only [facility] [address] [place] [address] Conversion, Onbase Social History Tobacco Use Types [...] Description 05/18/2025 10:10 AM EST Office Visit [facility] 703 [facility] [address] [place] [address] Lupe Boswell MD 703 [facility] 2, [address] [place] [address] Scheduled Orders Name Type Priority Associated Diagnoses Orde r Schedule OUTSIDE LAB SCAN Lab Ordered: 02/02/2021 documented as of this encounter Visit Diagnoses Not on filedocumented in this encounter Care Teams Storage Engineer Relationship Specialty Start Date End Date Norma Tapia MD [address] [place] [address] [place] [address] PCP - General 09/30/19 04/15/23 Norma Tapia MD [facility] [place] [address] PCP - General Family Medicine 04/16/23 Lynn Jorgensen, LOCOMOTIVE ENGINEER DIESEL-TOUR BUS DRIVER [address] [place] [address] Nurse Practitioner Cardiology 03/07/23 03/23/24 Daphne Ngo MD [address] [facility] Medical Office [facility], [address] [place] [address] Operating Room Orderly Electrophysiology 03/24/24 documented as of this encounter
--- OUTSIDE RECORDS SUMMARY | 2025-02-04 15:14 | XMS_ITS | Clinical Summary ---
Author Organization [facility] Address [address] [place] [address] Care Team Providers Care Property Appraiser Name Role Phone Unavailable Primary Care Provider Unavailabl e Social History Tobacco Use Types Packs/Day Years Used Date Smoking Tobacco: Never Assessed Comments Unknown Sex and Gender Information Value Date Recorded Sex Assigned at Not on file Legal Sex Female 6:47 PM EDT Gender Identity Not on file Sexual Orientation Not on file Last Filed Vital Signs Vital Sign [place] Time Taken Comments Blood Pressure 120/70 09/25/2017 12:00 PM EDT Pulse - - Temperature - - Respiratory Rate - - Oxygen Saturation - - Inhaled Oxygen Concentration - - Weight 91.6 kg (202 lb) 02/28/2021 12:00 PM EDT Height 152.4 cm (5') 02/28/2021 12:00 PM EDT Body Mass Index 39.45 02/28/2021 12:00 PM EDT Plan of Treatment Not on file
--- OUTSIDE RECORDS SUMMARY | 2025-02-04 15:14 | XMS_ITS | Clinical Summary ---
Author Organization [facility] Address [address] [facility], [address] [place] [address] Care Team Providers Care Library Sales Consultant Name Role Phone Unavailable Primary Care Provider Unavailabl e Allergies No known active allergies Medications aspirin 81 MG tablet Take 81 mg by mouth daily. Active isosorbide mononitrate (IMDUR) 30 MG CR tablet Take 30 mg by mouth daily. Active metoprolol (LOPRESSOR) 25 MG tablet Take 25 mg by mouth 2 times daily. Active Active Problems Problem Noted Date Diagnosed Date Unstable angina 06/18/2013 Abnormal stress test 06/18/2013 Social History Tobacco Use Types Packs/Day Years Used Date Smoking Tobacco: Never Alcohol Use Standard Drinks/Week Comments No 0 (1 standard drink = 0.6 oz pur e alcohol) Comments Unknown Sex and Gender Information Value Date Recorded Sex Assigned at Not on file Legal Sex Female 12:06 PM EST Gender Identity Not on file Sexual Orientation Not on file Last Filed Vital Signs Vital Sign [place] Time Taken Comments Blood Pressure 102/35 06/18/2013 9:45 AM EST Pulse 62 06/18/2013 9:45 AM EST Temperature 36.7 C (98.1 F) 06/18/2013 7:21 AM EST Respiratory Rate 18 06/18/2013 9:45 AM EST Oxygen Saturation 98% 06/18/2013 9:00 AM EST Inhaled Oxygen Concentration - - Weight 89.4 kg (197 lb) 06/18/2013 7:21 AM EST Height 147.3 cm (4' 10 ) 06/18/2013 7:21 AM EST Body Mass Index 41.17 06/18/2013 7:21 AM EST Plan of Treatment Not on file Advance Directives * Full Code (Latest Code Status on File) Date Activated Date Inactivated Comments 06/18/2013 9:00 AM 06/18/2013 5:49 PM * Full Code Date Activated Date Inactivated Comments 06/18/2013 7:18 AM 06/18/2013 9:00 AM
--- OUTSIDE RECORDS SUMMARY | 2025-02-04 15:14 | XMS_ITS | Patient Health Record ---
Author Organization [facility] Address [address] [place] [address] Care Team Providers Care Associate Manager Name Role Phone Norma Tapia M.D. 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 0 Reviewed date:07/22/2024 03:54:51 PM Interpretation: Performing Lab: Notes/Report: SCC- WRIST 3 VIEW RIGHT 7311 0 Reviewed date:07/22/2024 01:27:37 PM Interpretation: Performing Lab: Notes/Report: SCC- WRIST 3 VIEW RIGHT 7311 0 Reviewed date:07/22/2024 11:35:28 AM Interpretation: Performing Lab: Notes/Report: Reason For Referral Reason PRIOR AUTH APPROVED GARCIA VELA...PLEASE OBTAIN AUTHORIZATION FOR MRI RIGHT WRIST Diagnosis 1 Other closed fractur e of distal end of right radius, initial encounter (S52.599R) Referral Organization [facility] Referring Provider First Name Chloe Referring Provider Last Name Odalis Referring Provider Speciality Physician Ear Flap Binder Referred Organization [facility] Central Scheduling Referred Address [address] [place],[address],[place] Procedure 1 MRI Joint Upper Ext w/o Dye (97413) General Notes Blanca Patino 02/2025 03:17:53 PM > PER NATACHA PRIOR AUTH HAS BEEN APPROVED FROM 07/12/2024-10/09/2024 AUTH # [id number], AUTH IN CHART. FAXED TO Laina KIRKLAND Monica 07/12/2024 03:24:17 PM > FAXED ORDER, Singh Fela 07/16/2024 10:31:32 AM >Change location to [facility] in [place]. Patient has a defibrillator and a pacemaker. Unable to have MRI at [place]. Faxed order to [facility]. They will set up her cardiac clearance and the MRI., Blanca Patino 07/16/2024 11:02:17 AM > AUTH HAS BEEN UPDATED TO [facility] AND FAXED OVER WELL, Fela Winters 07/20/2024 05:48:10 PM >[facility] is working on getting patient scheduled Referral Priority Routine Social History Tobacco Use: Social History Observation Description Date Details (start date - stop date) Never Smoker NA - NA AUDIT-C (Standard) Question Answer Notes Did you have a drink containing alcohol in the p ast year? No Points 0 Interpretation Negative Tobacco Control (Standard) Question Answer Notes Tobacco use: Nonsmoker Problems Problem Type SNOMED Code ICD Code Onset Dates Problem Status W/U Status Risk Notes Problem [id number] Contusion of right elbow, initial encounter (S50.01XA) Active confirmed Problem [id number] Abrasion of right elbow, initial encounter (S50.311A) Active confirmed Problem 616494881 Nondisplaced fracture of right radial styloid process, subsequent encounter for closed fracture with routine healing (S52.514D) Active confirmed Problem 02734157562284935 Sprain of righ t wrist, initial encounter (S63.501A) Active confirmed Problem 70017699 Trips over objects (W18.40XA) Active confirmed Vital Signs Height 5'0 in 07/19/2024 Weight 193 lbs 07/19/2024 BMI 37.69 07/19/2024 Encounters Encounter Location Date Provider Diagnosis [facility] Office [address] [facility] [place] [address] [place] [address] 08/09/2024 Chloe Jacobo Acute pain of right wrist M25.531 and Contusion of right wrist, initial encounter S60.211A [facility] [address] [place] [address] [place] [address] 06/07/2024 Chloe Jacobo Contusion of right elbow, initial encounter S50.01XA ; Abrasion of right elbow, initial encounter S50.311A ; Sprain of right wrist, initial encounter S63.501A and Trips over objects W18.40XA [facility] [facility] [address] [facility] [place] [address] [place] [address] 06/14/2024 [facility] Nondisplaced fracture of right radial styloid process, initial encounter for closed fracture S52.514A and Sprain of right wrist, initial encounter S63.501A [facility] Office [address] [facility] [place] [address] 06/21/2024 Chloe [facility] Other closed fracture of distal end of right radius, initial encounter S52.591A [facility] Office [address] [facility] [place] [address] 06/25/2024 Chloe [facility] Nondisplaced fracture of right radial styloid process, subsequent encounter for closed fracture with routine healing S52.514D [facility] [address] [facility] [place] [address] 06/28/2024 Chloe [facility] Other closed fracture of distal end of right radius, initial encounter S52.591A [facility] Office [address] [facility] [place] [address] 07/12/2024 Clint [place] Nondisplaced fracture of right radial styloid process, subsequent encounter for closed fracture with routine healing S52.514D [facility] Office [address] [facility] [place] [address] 07/19/2024 Chloe [facility] Nondisplaced fracture of right radial styloid process, subsequent encounter for closed fracture with routine healing S52.514D [facility] [address] [facility] [place] [address] 06/08/2024 Chloe [facility] Other closed fracture of distal end of right radius, initial encounter S52.591A [facility] [place] [address] [place] [address] 06/11/2024 Chloe [facility] Other closed fracture of distal end of right radius, initial encounter S52.591A Assessments Encounter Date Diagnosis (ICD Code) Assessment Notes Treatment Notes Treatment Clinical Notes Section Notes 06/08/2024 Other closed fracture of distal end of right radius, initial encounter (ICD-10 - S52.591A) 06/11/2024 Other closed fracture of distal end of right radius, initial encounter (ICD-10 - S52.591A) 06/14/2024 Nondisplaced fracture of right radial styloid process, initial encounter for closed fracture (ICD-10 - S52.514A) 06/14/2024 Sprain of right wrist, initial encounter (ICD-10 - S63.501A) 06/21/2024 Other closed fracture of distal end of right radius, initial encounter (ICD-10 - S52.591A) 06/25/2024 Nondisplaced fracture of right radial styloid process, subsequent encounter for closed fracture with routine healing (ICD-10 - S52.514D) 06/28/2024 Other closed fracture of distal end of right radius, initial encounter (ICD-10 - S52.591A) 07/12/2024 Nondisplaced fracture of right radial styloid process, subsequent encounter for closed fracture with routine healing (ICD-10 - S52.514D) 07/19/2024 Nondisplaced fracture of right radial styloid process, subsequent encounter for closed fracture with routine healing (ICD-10 - S52.514D) 08/09/2024 Contusion of right wrist, initial encounter (ICD-10 - S60.211A) Right EPL partial tear versus tenosynoviti s Right distal radius bony contusion 08/09/2024 Acute pain of right wrist (ICD-10 - M25.531) Right EPL partial tear versus tenosynoviti s Right distal radius bony contusion 06/07/2024 Contusion of right elbow, initial encounter (ICD-10 - S50.01XA) Right elbow abrasion/con tusion 06/07/2024 Abrasion of right elbow, initial encounter (ICD-10 - S50.311A) Right elbow abrasion/con tusion 06/07/2024 Sprain of right wrist, initial encounter (ICD-10 - S63.501A) Right elbow abrasion/con tusion 06/07/2024 Trips over objects (ICD-10 - W18.40XA) Right elbow abrasion/con tusion 08/09/2024 Other Reviewed patient's MRI results with [...] 2 months as she does live in [place] part-time with her significant other. Right EPL partial tear versus tenosynoviti s Right distal radius bony contusion 06/07/2024 Other Today discussed with patient and her daughter that although there is no apparent fracture of her distal radius, there is a calcification noted and patient is very tender over this area. Given her extreme tenderness and swelling I will keep her in a splint for the next week and we will have her return in 1 week to remove splint and repeat x-rays. Right elbow abrasion/con tusion 06/14/2024 Other Patient gemain g has decreased somewhat and I did place her in a short arm cast today. She was encouraged to continue to elevate and work on finger ROM. We will see her back in 1 week to evaluate her cast fit and repeat x-rays. 06/21/2024 Other The patient has been immobilized for 2 weeks now for her distal radius fracture. We will keep her in the short arm cast for the next month. I have encouraged her to continue to elevate her arm and work on ROM of her fingers and thumb. We will see her back in 4 weeks to remove cast and repeat x-rays. 06/25/2024 Other Today I bivalve d patient's cast to provide her some relief as she did already have a area of swelling to the dorsal aspect of the wrist prior to this fracture. She will continue to elevate over the weekend and we will see her back on Friday to reassess her progress. 06/28/2024 Other Today I overlai d the patient's short arm cast that was bivalved with another layer of fiberglass. She will continue to elevate and try to increase the mobility in her hands. 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 We will see her back in 3 weeks to remove cast and repeat x-rays. 07/12/2024 Other I discussed the patient that her clinical situation is suggestive of complex regional pain syndrome. We have had a discussion regarding treatment for this conditions. Given her significant severe persistent pain after injury I recommended an MRI scan to evaluate for possible occult fracture. Will follow-up once the study is complete. I have recommended she remove her splint as 5-6 times a day to work on finger range of motion. Import medication 07/19/2024 Other Patient will continue with her wrist splint, working on finger and thumb ROM and I am going to step down her pain medication to tramadol. She will get her MRI of the wrist and we will see her back after imaging is complete to review and offer further recommendations. Plan Of Treatment Pending Test Test Name Order Date MRI : Wrist W/O Contrast Right - [id number] 07/12/2024 SCC- PT/OT EVAL AND TREAT 3X/WEEK FOR 6 WEEKS 08/09/2024 Insurance Providers Payer Name Payer Address Payer Phone Subscriber Number Group Number Insured Name Patient Relationship to Insured Coverage Start Date Coverage End Date Medicare [employer] [address] [place] [address] [id number] [id number] Self - patient is the insured [facility] Medicaid [address] [place] [address] [id number] NYA REDMOND Self - patient is the insured
--- OUTSIDE RECORDS SUMMARY | 2025-02-04 15:14 | XMS_ITS | Clinical Summary ---
Author Organization [facility] Address [id number] [address] [place] [address] Care Team Providers Care Rock Wool Insulator Name Role Phone Norma Tapia MD Primary Care Provider [phone] Allergies Active Allergy Reactions Criticality Noted Date Comments Adhesive Other (See Comments) 10/25/2013 Medications sertraline (ZOLOFT) 50 mg tablet Take 50 mg by mouth daily. Active omeprazole (PriLOSEC) 20 mg capsule Take 40 mg by mouth 2 (two) times a day. Active HYDROcodone-nallely taminophen (NORCO) 5-325 mg per tablet Take 1 tablet by mouth every 6 (six) hours as needed for pain. Active carvediloL (COREG) 12.5 mg tablet Take 1 tablet (12.5 mg total) by mouth in the morning and 1 tablet (12.5 mg total) in the evening. Take with meals. Active febuxostat (ULORIC) 80 mg tablet Take 80 mg by mouth daily. Active sertraline (ZOLOFT) 100 mg tablet Take 1 tablet (100 mg total) by mouth in the morning. 12/24/2021 Active ENTRESTO 24-26 mg tablet Take 1 tablet by mouth in the morning and 1 tablet before bedtime. 12/24/2021 Active Active Problems Problem Noted Date Diagnosed Date Abnormal gait 02/26/2022 Cervical pain 02/26/2022 Morbid obesity 02/26/2022 Paresthesia of right upper extremity 02/26/2022 Lumbar spondylosis 02/26/2022 Disorder of sacrum 02/26/2022 Lumbar radiculopathy 02/26/2022 ICD (implantable cardioverte r-defibrillator), biventricular, in situ 07/07/2015 Sleep apnea 02/23/2015 Acute renal failure syndrome 04/05/2014 Gout 04/05/2014 Benign essential hypertension 04/05/2014 CHF (congestive heart failure) 10/11/2013 Abnormal stress test 06/18/2013 Unstable angina 06/18/2013 Social History Tobacco Use Types Packs/Day Years Used Date Smoking Tobacco: Never Smokeless Tobacco: Never Tobacco Cessation:Counseling Given: Not Answered Alcohol Use Standard Drinks/Week Comments Never 0 (1 standard drink = 0.6 oz pur e alcohol) AUDIT-C Answer Date Recorded Frequency of Alcohol Consumption Never 08/12/2019 Average Number of Drinks Not on file 020 Frequency of Binge Drinking Not on file 01/2020 PHQ-2 Answer Date Recorded Total Score 0 08/11/2019 Childcare Answer Date Recorded Childcare Unknown 10/08/2018 Employment Answer Date Recorded Employment Unknown 10/08/2018 Purpose - Life Answer Date Recorded Purpose and direction in life Unknown Comments No Sex and Gender Information Value Date Recorded Sex Assigned at Not on file Legal Sex Female 11:22 AM EDT Gender Identity Not on file Sexual Orientation Not on file Last Filed Vital Signs Vital Sign Reading Time Taken Comments Blood Pressure 133/78 02/26/2022 2:51 PM EDT Pulse 71 02/26/2022 2:51 PM EDT Temperature 36.6 C (97.8 F) 08/12/2019 12:15 PM EDT Respiratory Rate 20 02/26/2022 2:51 PM EDT Oxygen Saturation 92% 08/12/2019 1:51 PM EDT Inhaled Oxygen Concentration - - Weight 88.9 kg (196 lb) 02/26/2022 2:51 PM EDT Height 152.4 cm (5') 02/26/2022 2:51 PM EDT Body Mass Index 38.28 02/26/2022 2:51 PM EDT Plan of Treatment Health Maintenance Due Date Last Done Comments Statin Use: Cardiovascular 1954 Depression Screening 1966 Tobacco Screening 1966 Zoster (Shingles) Vaccine (1 of 2) 2004 Fall Risk Screening 10/03/2019 Adult BMI Screening 02/26/2023 02/26/2022 Influenza Vaccine 01/03/2025 DTaP,Tdap and Td Vaccines (2 - Td or Tdap) 12/24/2033 12/25/2023 Medical Devices Not on file Insurance MEDICAID [place] MEDICARE Care Teams Rock Wool Insulator Relationship Specialty Start Date End Date Norma Tapia MD [facility] [place] [address] PCP - General Family Medicine 08/09/19
--- OUTSIDE RECORDS SUMMARY | 2025-02-04 15:14 | XMS_ITS | Encounter Summary ---
Author Organization [facility] Address [address] [place] [address] Phone Care Team Providers Care Sales Department Manager Name Role Phone Lynn Jorgensen APRN-LABORER/GRADE CHECK Unavailable Unavailable Norma Tapia MD Primary Care Provider [phone] Daphne Ngo MD Unavailable Encounter Details Date Type Department Care Team (Late st Contact Info) Description 05/28/2023 Scanned Document [facility] [address] [place] [address] Scanning, Generic Provider Social History Tobacco Use [...] on file Sexual Orientation Not on file COVID-19 Exposure Response Date Recorded In the last 10 days, have yo u been in contact with someone who was confirmed or suspected to have Coronavirus/COVID-19? No / Unsure 05/12/2023 1:21 PM EST documented as of this encounter Plan of Treatment Upcoming Encounters Date Type Department Care Team (Late st Contact Info) Description 05/18/2025 10:10 AM EST Office Visit [facility] [address] [facility] [address] [place] [address] Lupe Boswell MD [address] [facility] [address] [place] [address] documented as of this encounter Visit Diagnoses Not on filedocumented in this encounter Additional Health Concerns Assessment Noted Time PHQ-9 Depression Total Score: 12 022 1:20 PM EDT A fall risk assessment has been complete d for the patient 05/12/2023 1:32 PM EST documented as of this encounter Care Teams Sales Department Manager Relationship Specialty Start Date End Date Norma Tapia MD [address] [place] [address] PCP - General Family Medicine 04/16/23 Lynn Jorgensen APRN-LABORER/GRADE CHECK Nurse Practitioner Cardiology 03/07/23 03/23/24 Daphne gNo MD [address] [facility] Medical Office [facility] [place] [address] Corporate Security Manager Electrophysiology 03/24/24 documented as of this encounter
--- OUTSIDE RECORDS SUMMARY | 2025-02-04 15:14 | XMS_ITS | Encounter Summary ---
Author Organization [facility] Address [address] [place] [address] Phone Care Team Providers Care Internship Name Role Phone Norma Tapia MD Primary Care Provider [phone] Lynn Jorgensen HOSPITAL SOCIAL WORKER-LUMBER PULLER Unavailable Unavailable Norma Tapia MD Primary Care Provider [phone] Daphne Ngo MD Unavailable Encounter Details Date Type Department Care Team (Late st Contact Info) Description 07/18/2021 Orders Only [facility] [address] [place] [address] Conversion, Onbase Social History Tobacco Use Types [...] Description 05/18/2025 10:10 AM EST Office Visit [facility] [address] [facility] [address] [place] [address] Lupe Boswell MD [address] [facility] [address] [place] [address] Scheduled Orders Name Type Priority Associated Diagnoses Orde r Schedule OUTSIDE LAB SCAN Lab Ordered: 07/18/2021 OUTSIDE LAB SCAN Lab Ordered: 07/18/2021 documented as of this encounter Visit Diagnoses Not on filedocumented in this encounter Care Teams Internship Relationship Specialty Start Date End Date Norma Tapia MD [address] [facility] [place] [address] [place] [address] PCP - General 09/30/19 04/15/23 Norma Tapia MD [address] [facility] [place] [address] PCP - General Family Medicine 04/16/23 Lynn Jorgensen, HOSPITAL SOCIAL WORKER-LUMBER PULLER [address] [facility] [place] [address] [place] [address] Nurse Practitioner Cardiology 03/07/23 03/23/24 Daphne Ngo MD [address] Medical Office [facility] [place] [address] Project Estimator Electrophysiology 03/24/24 documented as of this encounter
--- OUTSIDE RECORDS SUMMARY | 2025-02-04 15:14 | XMS_ITS | Patient Health Record ---
Author Organization [facility] Address [address] [place], [place] [address] Care Team Providers Care Spar Cap Beveler Name Role Phone Saloni Rowan Unavailable [phone] Allergies Allergen (clinical drug ingredient) Drug/Non Drug Allergy documented on EMR Reaction Allergy Type Onset Date Status Latex Latex Unknown Allergy Active Reason For Referral No Information Medications Medication SIG (Take, Route, Fr equency, Duration) Notes Start Date End Date Status Carvedilol Active Omeprazole Active Entresto Active Sertraline HCl 100 MG TAKE 1 TABLET BY M OUTH EVERY DAY Oral; Duration: 90 Days Acti ve Social History Sex Assigned At : Social History Observation Description Sex Assigned At Female Tobacco Use/Smoking Question Answer Notes Additional Findings: Tobacco Non-User Current no n-smoker Problems Problem Type SNOMED Code ICD Code Onset Dates Problem Status W/U Status Risk Notes Problem Obese class II ([id number]) BMI 35.0-35.9,a dult (Z68.35) Active confirmed Plan Of Treatment No Information Insurance Providers Payer Name Payer Address Payer Phone Subscriber Number Group Number Insured Name Patient Relationship to Insured Coverage Start Date Coverage End Date [facility] [place] [address] [place] [id number] [facility] Chantelle Bell Self - patient is the insured 3
--- OUTSIDE RECORDS SUMMARY | 2025-02-04 15:14 | XMS_ITS | Clinical Summary ---
Author Organization [facility] Address [address] [place], [place] [id number] Care Team Providers Care Salesperson Automobiles Name Role Phone Norma Tapia MD Primary Care Provider [phone] Allergies Active Allergy Reactions Criticality Noted Date Comments Adhesive Tape (Rosins) Unknown 10/25/2013 Medications Omeprazole 40 mg capsule Take 40 mg by mouth once daily. Active lisinopril (ZESTRIL, PRINIVIL) 10 mg tablet Take 1 tablet by mouth once daily. 90 tablet 3 05/29/2015 Active spironolactone (ALDACTONE) 25 mg tablet TAKE 1 TABLET BY MOUTH EVERY DAY 90 tablet 3 07/17/2015 Active febuxostat (ULORIC) 80 mg tab Take 80 mg by mouth once daily. Active carvedilol (COREG) 6.25 mg tablet Take 1 tablet by mouth twice daily with meals. 180 tablet 3 12/19/2016 Active Active Problems Problem Noted Date Diagnosed Date ICD (implantable cardioverte r-defibrillator), biventricular, in situ 07/07/2015 Obesity 07/07/2015 Sleep apnea 02/23/2015 IRB # [id number]: Wrap-It Study 01/26/2015 CHF (congestive heart failure) 10/11/2013 Hypertension 10/11/2013 LBBB (left bundle branch block) 10/11/2013 Family History Medical History Relation Comments Coronary Artery Disease Father at age 7 8 Diabetes Father Relation Status Comments Father Mother Alive Social History Tobacco Use Types Packs/Day Years Used Date Smoking Tobacco: Never Smokeless Tobacco: Never Alcohol Use Standard Drinks/Week Comments No 0 (1 standard drink = 0.6 oz pur e alcohol) Area Deprivation Index Answer Date Arvin rded National Score (1-100), lower number is lower ri sk Not on file 04/12/2020 State Score (1-10), lower number is lower risk N ot on file 04/12/2020 Data from: https://www.neighborhoodatlas.medicine.[facility].edu/. 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 Not on file Not on file Not on file Last Filed Vital Signs Vital Sign Reading Time Taken Comments Blood Pressure 123/52 06/03/2017 12:53 PM EST Pulse 73 06/03/2017 12:53 PM EST Temperature 36.2 C (97.1 F) 08/24/2015 10:36 AM EDT Respiratory Rate 18 06/03/2017 12:53 PM EST Oxygen Saturation 99% 06/03/2017 12:53 PM EST Inhaled Oxygen Concentration - - Weight 90.7 kg (200 lb) 06/03/2017 12:53 PM EST Height 152.4 cm (5') 06/03/2017 12:53 PM EST Body Mass Index 39.06 06/03/2017 12:53 PM EST Plan of Treatment Health Maintenance Due Date Last Done Comments Anxiety Screening 1972 Depression Screening 1972 Hepatitis C Screening 1972 DTaP,Tdap,Td Vaccine (1 - Tdap) [address] Colonography 10/03/1999 Cologuard (FIT-DNA) 10/03/1999 Colonoscopy 10/03/1999 Colorectal Cancer Screening 10/03/1999 Fecal Occult Blood 10/03/1999 Lipid Screening 10/03/1999 Sigmoidoscopy 10/03/1999 Pneumococcal Vaccine: 50+ (1 of 1 - PCV) 2004 Shingrix Vaccine (1 of 2) 2004 Diabetes Screening 01/25/2018 01/25/2015 Bone Density Screening 10/03/2019 Advance Directive Discussion 05/05/2024 Influenza Vaccine (#1) 2025 RSV Vaccine (1 - 1-dose 75+ series) 2029 Medical Devices Implanted Type Area Physical Biochemist Device Identifier Shelf Expiration Date Model / Serial / Lot [id number] Viva Quad S [id number] -[id number] Implanted:2014 (Quantity not on file) ICD [employer] [id number] anahy Quad S DRAWING TENDER-D / [id number] / Procedures Procedure Name Priority Date/Time Associated Diagnosis Comments BASIC METABOLIC PANEL STAT 01/25/2015 12:00 PM EDT Chronic systolic congestive heart failure (HCC) from Last 3 Months or Most Recently Relevant to Health Maintenance Results * (ABNORMAL) BASIC METABOLIC PNL (01/25/2015 12:00 PM EDT) Glucose 100 65 - 100 mg/dL 01/25/2015 1:38 PM EDT [facility] BUN 30(H) 8 - 25 mg/dL 01/25/2015 1:38 PM T [facility] Creatinine 1.16 0.70 - 1.40 mg/dL 01/25/2015 1:38 PM T [facility] Sodium 137 132 - 148 mmol/L 01/25/2015 1:38 PM [facility] Potassium Unable to assay. Specimen significantly hemolyzed. 3.5 - 5.0 mmol/L 01/25/2015 1:38 PM EDT [facility] Chloride 107 98 - 110 mmol/L 01/25/2015 1:38 PM T [facility] CO2 23 23 - 32 mmol/L 01/25/2015 1:38 PM [facility] Anion Gap 7 0 - 15 mmol/L 01/25/2015 1:38 PM T [facility] Calcium 9.5 8.5 - 10.5 mg/dL 01/25/2015 1:38 PM [facility] eGFR- 58 01/25/2015 1:38 PM [facility] eGFR-All Other Races 48 . 01/25/2015 1:38 PM [facility] Comment: eGFR (Estimated GFR) Units of measure: mL/min/1.73 meters squared eGFR is derived from the reexpressed MDRD Study equation using the following parameters: serum creatinine, age, gender and race. The creatinine assay has been calibrated to be traceable to IDMS. An eGFR <60 mL/min/1.73m2 for >3 months is consistent with chronic kidney disease. Refer to KDOQI guidelines for clinical interpretation. In patients with unstable renal function, e.g. those with acute kidney injury, the eGFR may not accurately reflect actual GFR. Blood specimen (specimen) BLOOD SPECIMEN / Unknown 01/25/2015 12:00 PM EDT 01/25/2015 12:25 PM EDT Nathalie Lux MD LABORATORY Final Result [facility] [address] [place] [address] from Last 3 Months or Most Recently Relevant to Health Maintenance Insurance [place] Member Subscriber Plan / Payer (Ef fective 2017-Present) Name:Chantelle Bell Relation to Subscriber:Self Name:Chantelle Bell Delaney Payer ID:Not on file Group ID:Not on file Type:Medicaid Address: [address] DUAL COMPLETE HMO [facility] Advance Directives Documents on File Type Date Recorded Patient Ruby Software Developer Expl anation Advance Directive(s) 01/25/2015 10:56 AM Care Teams Salesperson Automobiles Relationship Specialty Start Date End Date Norma Tapia MD [address] [place] [address] PCP - General Family Medicine 10/24/14
--- OUTSIDE RECORDS SUMMARY | 2025-02-04 15:14 | XMS_ITS | Encounter Summary ---
Author Organization [facility] Address [address] [place] [address] Phone Care Team Providers Care Coal And Ash Supervisor Name Role Phone Norma Tapia MD Primary Care Provider [phone] Lynn Jorgensen RATINGS ANALYST-ROOF FOREMAN Unavailable Unavailable Norma Tapia MD Primary Care Provider [phone] Daphne Ngo MD Unavailable Encounter Details Date Type Department Care Team (Late st Contact Info) Description 07/19/2021 Orders Only [facility] [address] [place] [address] Conversion, Onbase Social History Tobacco Use Types [...] Description 05/18/2025 10:10 AM EST Office Visit [facility] [address] [facility] [address] [place] [address] Lupe Boswell MD [address] [facility] [address] [place] [address] Scheduled Orders Name Type Priority Associated Diagnoses Orde r Schedule OUTSIDE LAB SCAN Lab Ordered: 07/19/2021 documented as of this encounter Visit Diagnoses Not on filedocumented in this encounter Care Teams Coal And Ash Supervisor Relationship Specialty Start Date End Date Norma Tapia MD [address] [place] [address] [place] [address] PCP - General 09/30/19 04/15/23 Norma Tapia MD [facility] [place] [address] PCP - General Family Medicine 04/16/23 Lynn Jorgensen, RATINGS ANALYST-ROOF FOREMAN [address] [place] [address] Nurse Practitioner Cardiology 03/07/23 03/23/24 Daphne Ngo MD [address] [facility] Medical Office [facility], [address] [place] [address] [address] Electrophysiology 03/24/24 documented as of this encounter
--- OUTSIDE RECORDS SUMMARY | 2025-02-04 15:14 | XMS_ITS | Encounter Summary ---
Author Organization [facility] Address [address] [place] [address] Care Team Providers Care Car Sales Consultant Name Role Phone Bimal Barba MD Primary Care Provider + Bimal Sanchez MD Unavailable oNrma Tapia MD Primary Care Provider [phone] Source Comments In the event this information is protected by the Federal Confidentiality of Alcohol and Drug AbusePatient Records regulations: The Federal rules restrict any use of the information to criminally investigate or prosecute any alcohol or drug abuse patient.[facility] Encounter Details Date Type Department Care Team (Late st Contact Info) Description 10/07/2013 Abstract Cardiology [address] [place] [address] Bimal Sanchez MD [facility] [address] [place] [address] Social History Tobacco Use Types Packs/Day Years Used Date Smoking Tobacco: Never Assessed Comments Unknown Sex and Gender Information Value Date Recorded Sex Assigned at Not on file Legal Sex Female 3:14 PM EDT Gender Identity Not on file Sexual Orientation Not on file documented as of this encounter Plan of Treatment Not on file documented as of this encounter Visit Diagnoses Not on filedocumented in this encounter Care Teams Car Sales Consultant Relationship Specialty Start Date End Date Bimal Barba MD [address] [place] [address], [address] [place] [address] PCP - General Internal Medicine 10/06/13 10/23/14 Norma Tapia MD [address] [place] [phone] PCP - General Family Medicine 10/24/14 Bimal Sanchez MD [address] [place] [address], [address] [place] [address] Primary Staff Physician Cardiology 08/03/14 6 documented as of this encounter
--- OUTSIDE RECORDS SUMMARY | 2025-02-04 15:14 | XMS_ITS | Encounter Summary ---
Author Organization [facility] Address [address] [place] [address] Care Team Providers Care Industrial Retrofit Designer Name Role Phone Bimal Sanchez MD Unavailable Norma Tapia MD Primary Care Provider [phone] Source Comments In the event this information is protected by the Federal Confidentiality of Alcohol and Drug AbusePatient Records regulations: The Federal rules restrict any use of the information to criminally investigate or prosecute any alcohol or drug abuse patient.[facility] Reason for Visit * Reason Comments PSG Check In (Adult) Encounter Details Date Type Department Care Team (Late st Contact Info) Description 02/24/2015 Abstract Neurology [address] [id number] [facility] [address] [id number] PSG Check In (Adult) Social History Tobacco Use Types Packs/Day Years [...] file Not on file Not on file documented as of this encounter Functional Status * Are you deaf or do you have serious difficulty hearing? Answer Date of Assessment Author No 01/26/2015 7:38 PM Lilly Acevedo RN * Are you blind or do you have serious difficulty seeing, even when wearing glasses? Answer Date of Assessment Author No 01/26/2015 7:38 PM Lilly Acevedo RN * Do you have serious difficulty walking or climbing stairs? Answer Date of Assessment Author No 01/26/2015 7:38 PM Lilly Acevedo RN * Do you have difficulty dressing or bathing? Answer Date of Assessment Author No 01/26/2015 7:38 PM Lilly Acevedo RN * Because of a physical, mental, or emotional condition, do you have difficulty doing errands alone such as visiting a doctor's office or shopping? Answer Date of Assessment Author No 01/26/2015 7:38 PM Lilly Acevedo RN documented as of this encounter Mental Status * Because of a physical, mental, or emotional condition, do you have serious difficulty concentrating, remembering, or making decisions? Answer Entry Date Author No 01/26/2015 7:38 PM Lilly Acevedo RN documented in this encounter Plan of Treatment Not on file documented as of this encounter Visit Diagnoses Not on filedocumented in this encounter Care Teams Industrial Retrofit Designer Relationship Specialty Start Date End Date Norma Tapia MD [address] [place] [phone] PCP - General Family Medicine 10/24/14 Bimal Sanchez MD Primary Staff Physician Cardiology 08/03/14 6 documented as of this encounter
--- OUTSIDE RECORDS SUMMARY | 2025-02-04 15:15 | XMS_ITS | Encounter Summary ---
Author Organization [facility] Address [address] [place] [address] Phone Care Team Providers Care Hand Meat Salter Name Role Phone Norma Tapia MD Primary Care Provider [phone] Lynn Jorgensen RESPIRATORY SERVICES MANAGER-VIBRATING SCREEN OPERATOR Unavailable Unavailable Norma Tapia MD Primary Care Provider [phone] Daphne Ngo MD Unavailable Encounter Details Date Type Department Care Team (Late Contact Info) Description 04/23/2022 Orders Only [facility] [address] [place] [address] Conversion, Onbase Social History Tobacco Use Types [...] Description 05/18/2025 10:10 AM EST Office Visit [facility] [address] [facility] [address] [place] [address] Lupe Boswell MD [address] [facility] [address], [address] [place] [address] Scheduled Orders Name Type Priority Associated Diagnoses Orde r Schedule OUTSIDE LAB SCAN Lab Ordered: 04/23/2022 documented as of this encounter Visit Diagnoses Not on filedocumented in this encounter Additional Health Concerns Assessment Noted Time PHQ-9 Depression Total Score: 12 022 1:20 PM EDT documented as of this encounter Care Teams Hand Meat Salter Relationship Specialty Start Date End Date Norma Tapia MD [address] [place] [address] PCP - General 09/30/19 04/15/23 Norma Tapia MD [address] [place] [address] PCP - General Family Medicine 04/16/23 Lynn Jorgensen, RESPIRATORY SERVICES MANAGER-VIBRATING SCREEN OPERATOR [address] [place] [address] [place] [address] Nurse Practitioner Cardiology 03/07/23 03/23/24 Daphne Ngo MD [address] [facility] Medical [facility] [address] [place] [address] Net Repairer Electrophysiology 03/24/24 documented as of this encounter
--- OUTSIDE RECORDS SUMMARY | 2025-02-04 15:16 | XMS_ITS | CCD ---
Author Organization [facility] Care Team Providers Care Thread Inspector Name Role Phone Hampole, Haile V Unavailable Unavailable Hampole, Haile V Unavailable Unavailable Hampole, Ahile V Unavailable Unavailable ANUPAM PEREIRA~[id number] UNKNOWN Unavailable Unavailable Harsh Lange Unavailable Unavailable Harsh Lange Unavailable Unavailable Anupam Pereira Unavailable Unavailable Unavailable MD Anupam Pereira Primary Care Provider MD Daphne Mayes Attending Provider [phone] Unavailable Unavailable MD Anupam Pereira Primary Care Provider MD Daphne Mayes Attending Provider [phone] MD Anupam Pereira Primary Care Provider MD Daphne Mayes Attending Provider [phone] MD Anupam Pereira Primary Care Provider MD Daphne Mayes Attending Provider [phone] Anupam [address] Un[address] ANUPAM EPREIRA Primary Care Unavailable MARIA FERNANDA ., DR JANICE Casas Attending Unavailable MARIA FERNANDA ., DR JANICE Casas Admitting Unavailable MARIA FERNANDA Yanez, DR JANICE Casas Consulting Unavailable DR ANUPAM PEREIRA Primary Care Unavailable DR ANUPAM PEREIRA Consulting Unavailable RANDALL, DR ANUPAM Kurtz Attending Unavailable RANDALL, DR ANUPAM Kurtz Admitting Unavailable DR ANUPAM PEREIRA Primary Care [...] PEREIRA, DR ANUPAM Kurtz Primary Care Unavailable ROSADO, DR LUPE Denney Attending Unavailable ROSADO, DR LUPE Denney Admitting Unavailable ROSADO, DR LUPE Denney Consulting Unavailable PEREIRA, DR ANUPAM Kurtz Primary Care Unavailable PEREIRA, DR ANUPAM Kurtz Attending Unavailable PEREIRA, DR ANUPAM Kurtz Admitting Unavailable WILMER, DR CECY Wade Consulting Unavailable ZIEBER, DR MAREN Benz Consulting Unavailable PEREIRA, DR ANUPAM Kurtz Consulting Unavailable ROSADO, DR LUPE Denney Attending Unavailable ROSADO, DR LUPE Denney Admitting Unavailable PEREIRA, DR ANUPAM Kurtz Primary Care Unavailable ROSADO, DR LUPE Denney Consulting Unavailable PEREIRA, DR ANUPAM Kurtz Primary Care Unavailable PEREIRA, DR ANUPAM Kurtz Consulting Unavailable PEREIRA, DR ANUPAM Kurtz Attending Unavailable PEREIRA, DR ANUPAM Kurtz Admitting Unavailable ARRIAZA, ELAINA Consulting Unavailable MD Anupam Pereira Primary Care Provider [phone] MD Daphne Mayes Attending Provider Rosado, Dr. Lupe Carrion Attending Kathya vailable Pereira, Dr. Anupam Tam Primary Care Unav ailable Rosado, Dr. Lupe Carrion Attending Kathya vailable Pereira, Dr. Anupam Tam Primary Care Unav ailable Rosado, Dr. Lupe Carrion Attending Kathya vailable Pereira, Dr. Anupam Tam Primary Care Unav MD Anupam Marley Primary Care Provider MD Daphne Mayes Attending Provider Randall, Dr. Anupam Tam Primary Care Unav ailable Rosado, Dr. Lupe Carrion Referring Kathya vailable Pereira, Dr. Anupam Tam Primary Care Unav ailable Rosado, Dr. Lupe Carrion Attending Kathya vailable Rosado, Dr. Lupe Carrion Referring Kathya vailable Pereira, Dr. Anupam Tam Primary Care Unav ailable Rosado, Dr. Lupe Carrion Attending Kathya vailable Pereira, Dr. Anupam Tam Primary Care Unav ailable Huber, Dr. Daphne Canada Attending Unavailab le Randall, Dr. Anupam Tam Primary Care Unav zelalem Pereira, Dr. Anupam Tam Primary Care Unav Anupam Marley MD Primary Care Provider MD Anupam Pereira Primary Care Provider MD Gaudencio Mendoza Attending Provider Joslyn SULLIVAN-PAMELA, Lynn E Unavailable Anupam Pereira MD Primary Care Provider ANUPAM PEREIRA Primary Care Unavailable Anupam Pereira MD Primary Care Provider MD Anupam Pereira Primary Care Provider MD Gaudencio Mendoza Attending Provider DAPHNE MAYES Referring Unavailable ANUPAM PEREIRA Primary Care Unavailable ROSADO, LPUE Denney Referring Unavailable ANUPAM PEREIRA Primary Care Unavailable Anupam Pereira MD Primary Care Provider Chasity Harper MD Attending Provider Daphne Mayes MD Unavailable Anupam Pereira MD Primary Care Provider Chasity Harper MD Attending Provider Rosemarie Lea APRN Attending Provider [phone] Anupam Pereira MD Primary Care Provider Maren Aden Attending Provider Andreia STANTON, Lupe Attending Provider LUPE ROSADO Attending Unavailable ROSADO, ANDRADE M Referring Unavailable PEREIRAANUPAM E Primary Care Unavailable ROSADOLUPE M Attending Unavailable ROSADO, ANDRADE M Referring Unavailable PEREIRA, ANUPAM E Primary Care Unavailable ROSADO, ANDRADE M Attending Unavailable ROSADO, ANDRADE M Referring Unavailable ANUPAM PEREIRA Primary Care Unavailable Daphne Mayes MD Unavailable Anupam Pereira MD Primary Care Provider [phone] Lupe Rosado MD Other Provider Chasity Harper MD Attending Provider Anupam Pereira Primary Care Unavailable Almahvirginia Soufidarrel Admitting Unavailable AlmChasity ramirez Attending Unavailable Anupam Pereira Primary Care Unavailable more, Rosemarie R Admitting Unavailable Rosemarie Lea R Attending Unavailable Anupam Pereira Primary Care Unavailable Maren Aden Admitting Unavailable Maren Aden Attending Unavailable Rosado, Andrade Admitting Unavailable Rosado, Andrade Attending Unavailable Anupam Pereira Primary Care Unavailable Rosado, Andrade Admitting Unavailable Rosado, Andrade Attending Unavailable Anupam Pereira E Primary Care Unavailable Andreia, Lupe Attending Unavailable Anupam Pereira Primary Care Unavailable Rosado, Andrade Admitting Unavailable Anupam Pereira MD Attending Provider Allergies Allergy Classification Reported Allergen(s) Allergy Type Date of Onset Reaction(s) Facility (1 source) Adhesive Tape; Translations: [Tape] Propensity to adverse reactions (disorder) [facility] Repository (14 sources) Desonide Drug Allergy 06-12-19 16 Unknown, Rash [facility] Repository (1 source) Latex Drug allergy (disorder) [facility] Repository (1 source) patient allergy list reviewed by nurse or physicia Propensity to adverse reactions 08-31-19 15 Comment:Done [facility] Other (1 source) Allergies Reconciled Propensity to adverse reactions Unknown [facility] Other (10 sources) Adhesive agent; Translations: [ADHESIVE] Drug Intolerance 10-26-19 14 Unknown [facility] (1 source) Adhesive Tape Drug allergy (disorder) 07-27-[address] [facility] Repository Medications Current Medications Medication Drug Class(es) Dates Sig (Normalized) Sig (Original) amoxicillin 875 mg / clavulanate 125 mg oral tablet (2 sources) Penicillin-class Antibacterial Start: 01-09-2023 take 1 tablet by mouth every twelve hours Amoxicillin-Pot Clavulanate 875-125 MG 1 tablet Orally every 12 hrs for 10 day(s) Jan, Active azithromycin 250 mg oral tablet (1 source) Macrolide Antimicrobial Start: 12-31-2024 Azithromycin 250 mg tablet Active 0 PO .COMPLEX December 31, 2024 12:00am For 250 mg dose pack: take 500 mg today (day 1), then 250 mg for 4 days (days 2-5) PO Complies with drug therapy baclofen 10 mg oral tablet (3 sources) [...] Active Start: 12-31-2022 take [address] [facility] every eight hours Benzonatate 200 MG 1 capsule Orally Three times a day for 10 day(s) Dec, Active cefdinir 300 mg oral capsule (3 [...] hydrochloride 500 mg extended release oral tablet (14 sources) Biguanide Start: 07-26-2024 Metformin 500 mg tablet extended release 24 hr Active 1000 MG PO Daily July 26, 2024 11:35am Complies with drug therapy Start: 05-31-2024 take 1 tablet by yuliya twice daily metFORMIN XR 500 mg 24 hr tablet Take 1 tablet (500 mg) by mouth 2 times daily (morning and late afternoon). 05/31/2024 Active Start: 05-31-2024 End: 07-26-2024 take 1 tablet by mouth once daily, then take 1 tablet by mouth once daily Metformin 500 mg tablet extended release 24 hr Discontinued 1000 MG PO Daily May 31, 2024 1:00am July 26, 2024 11:35am Days 1 through 7 take 1 tab daily. methylPREDNISolone 4 mg oral tablet (3 sources) Corticosteroid Start: 05-08-2023 methylPREDNISo lone 4 MG as directed Orally for 6 days May, Active Start: 01-09-2023 methylPREDNISo lone 4 MG as directed Orally for 6 days Jan, Active predniSONE 20 mg oral tablet (6 sources) Start: 05-22-2023 take 2 tablets by mouth every twenty-four hours predniSONE 20 MG 2 tablets Orally Once a day for 5 days May, Active Start: 12-24-2022 take 2 tablets by mo [facility] every twenty-four hours predniSONE 20 MG 2 tablets Orally Once a day for 5 days Dec, Active tiZANidine 4 mg oral tablet (7 sources) Central alpha-2 Adrenergic Agonist tiZANidine HCl 4 MG TAKE 1 TABLET BY MOUTH THREE TIMES A DAY NEEDED FOR 30 DAYS for 20 Active Completed/Discontinued Medications Medication Drug Class(es) Dates Sig (Normalized) Sig (Original) [id number] 200 actuat albuterol 0.09 mg/actuat metered dose inhaler (10 sources) beta2-Adrenergic Agonist Start: 06-20-2023 End: 12-22-2023 take 1 puff(s) by inhalation every four to six hours as needed for wheezing Albuterol Sulfate 90 mcg/actuation HFA aerosol inhaler Discontinued 2 PUFF INHALATION EVERY 4-6 HOURS as needed for shortness of breath or wheezing 6.7 June 20, 2023 1:00am December 22, 2023 2:01pm Start: 06-20-2023 End: 12-22-2023 take 1 puff(s) [...] Albuterol Sulfate 90 mcg/actuation HFA aerosol inhaler (7 sources) Start: 06-20-2023 End: 12-22-2023 take 1 puff(s) by inhalation every four to six hours as needed for wheezing Albuterol Sulfate 90 mcg/actuation HFA aerosol inhaler Discontinued 2 PUFF INHALATION EVERY 4-6 HOURS as needed for shortness of breath or wheezing 6.7 June 20, 2023 1:00am December 22, 2023 2:01pm Start: 06-20-2023 End: 12-22-2023 take 1 puff(s) by inhalation every four to six hours as needed for wheezing Albuterol Sulfate 90 mcg/actuation HFA aerosol inhaler Discontinued 2 PUFF INHALATION EVERY 4-6 HOURS as needed for shortness of breath or wheezing 6.7 June 20, 2023 12:00am December 22, 2023 1:01pm carvedilol 3.125 mg oral tablet (20 sources) alpha-Adrenergic Roxy, beta-Adrenergic Roxy Start: 11-18-2023 End: 11-17-2024 take 1 tablet by mouth twice daily Carvedilol 3.125 mg tablet Discontinued 3.125 MG PO Twice daily December 22, 2023 12:00am July 26, 2024 8:50am Start: 04-03-2021 End: 11-18-2023 take 1 tablet by mouth twice daily carvedilol (Coreg) 6.25 mg tablet Indications: ICD (implantable cardioverter-defibrillator) in place Take 1 tablet (6.25 mg) by mouth 2 times a day. 90 tablet 3 08/29/2023 11/18/2023 Discontinued (Dose adjustment) take 1 tablet by [facility] every twelve hours Carvedilol 3.125 MG 1 tablet with food Orally Twice a day for 90 Active ciprofloxacin 250 mg oral tablet (5 [...] Quantity: 90 Refills: 0 Ordered: 09-Oct-2022 Lupe Rosado MD Start : 09-Oct-2022 Active Start: 05-23-2022 take 1 capsule by mo [facility] every week Vitamin D (Ergocalciferol) 1.25 MG (43900 UT) 1 capsule Orally weekly for 90 [...] TWICE A DAY Oral for 30 Not-Taking nebivolol 2.5 mg oral tablet (10 sources) Start: 5 End: 6 take 1 tablet by mouth once daily Nebivolol 2.5 mg tablet Discontinued 2.5 MG PO Daily June 14, 2024 1:00am December 31, 2024 1:21pm Nirmatrelvir-Ritona vir (2 sources) Start: 4 End: Nirmatrelvir-Ritonavi r (Paxlovid) 300 mg (150 mg x 2)-100 mg tablets,dose pack Discontinued 0 PO .COMPLEX December 22, 2023 12:00am March 02, 2024 11:24am take TWO 150 mg tablets of nirmatrelvir with ONE 100 mg tablet of ritonavir twice daily for 5 days PO Nirmatrelvir-Ritona vir (Paxlovid) 300 mg (150 mg x 2)-100 mg tablets,dose pack (10 sources) Start: End: Nirmatrelvir-Ritonavi r (Paxlovid) 300 [...] (20 sources) Proton Pump Inhibitor Start: 04-21-2024 End: 11-11-2024 take 1 capsule by mouth once daily Omeprazole 20 mg capsule,delayed release(DR/EC) Discontinued 0 .ROUTE .COMPLEX July 06, 2024 11:42am November 11, 2024 4:20pm TAKE 1 CAPSULE BY MOUTH EVERY DAY Start: 12-22-2023 End: 04-21-2024 take 1 capsule by mouth once daily Omeprazole 20 mg capsule,delayed release(DR/EC) Discontinued 20 MG PO Daily December 22, 2023 12:00am April 21, 2024 11:49am Omeprazole 20 MG TK 2 CS PO QD Oral for Active sacubitril 49 mg / valsartan 51 mg oral tablet (20 sources) Angiotensin 2 Receptor Roxy Start: 10-09-2021 End: 06-14-2024 take 1 tablet by mouth twice daily Sacubitril-Valsartan (Entresto) 49-51 mg tablet Discontinued 1 TAB PO Twice daily December 22, 2023 12:00am June 14, 2024 2:32pm take 1 tablet by mouth twice maura ly Entresto 24-26 MG TAKE 1 TABLET BY MOUTH TWICE A DAY for Active ENTRESTO 24 mg/2 6 mg 1 orally twice a day Active sertraline 50 mg oral tablet (20 sources) Serotonin Reuptake Inhibitor Start: 03-02-2024 End: 11-11-2024 take 1 tablet by mouth once daily Sertraline 50 mg tablet Discontinued 50 MG PO Daily September 02, 2024 8:35am November 11, 2024 4:20pm Start: 02-25-2024 End: 03-02-2024 take 1 tablet by mouth once daily Sertraline 100 mg tablet Discontinued 0 .ROUTE .COMPLEX February 25, 2024 3:49pm March 02, 2024 11:24am TAKE 1 TABLET BY MOUTH EVERY DAY Start: 06-20-2023 End: 02-25-2024 take 1 tablet by mouth once daily Sertraline 100 mg tablet Discontinued 100 MG PO Daily June 20, 2023 1:00am February 25, 2024 3:49pm take 1 tablet by yuliya th twice daily sertraline (Zoloft) 50 mg tablet Take 1 tablet (50 mg) by mouth 2 times a day. Active take 2 tablets by mo [facility] once daily sertraline (Zoloft) 50 mg tablet [...] 0 Refills: 0 Ordered: 09-Aug-2021 DO Active traMADol hydrochloride 50 mg oral tablet (5 sources) Opioid Agonist take 1 tablet by mouth every twenty-four hours traMADol HCl 50 MG 1 tablet as needed Orally Once a day Not-Taking valsartan 80 mg oral tablet (10 sources) Angiotensin 2 Receptor Roxy Start: 06-10-19 End: 06-10-19 26 take 1 tablet by mouth once daily Valsartan 80 mg tablet Discontinued 80 MG PO Daily June 14, 2024 1:00am December 31, 2024 1:21pm Problems Active Problems Problem Classification Problem Date Documented Date Episodic/Chronic Abdominal pain (15 sources) Right upper quadrant pain; Translations: [Right upper quadrant pain] Onset: 03-17-2017 Episodic Acute bronchitis (2 sources) Acute bronchitis; Translations: [Acute bronchitis] Onset: 08-30-2014 Episodic Anxiety disorders (14 sources) Generalized anxiety disorder; Translations: [Generalized anxiety disorder] Onset: 08-30-2014 Chronic Cardiac dysrhythmias (10 sources) Atrial fibrillation; Translations: [Unspecified atrial fibrillation] Onset: 07-12-2024 05-31-2024 Chronic Chronic obstructive pulmonary disease and [...] Onset: 05-21-2022 Episodic Diabetes mellitus without complication (20 sources) Impaired fasting glycemia; Translations: [Impaired fasting glucose] Onset: 07-12-2024 05-31-2024 Episodic Esophageal disorders (14 sources) Gastroesophageal reflux disease without esophagitis; Translations: [Gastro-esophageal reflux disease without esophagitis] Chronic Essential hypertension (15 sources) Essential hypertension; Translations: [Essential (primary) hypertension] Onset: 03-28-2014 Chronic Fracture of upper limb (11 sources) Fracture of unspecified carpal bone, right wrist, initial encounter for closed fracture; Translations: [Fracture of right wrist] Onset: 08-03-2024 06-15-2024 Episodic Genitourinary symptoms and ill-defined conditions (14 sources) [...] Chronic Other nutritional; endocrine; and metabolic disorders (20 sources) Obese class II; Translations: [Body mass index (BMI) 38.0-38.9, adult] 05-31-2024 Chronic Other nutritional; endocrine; and metabolic disorders (4 sources) Body mass index 30+ - obesity; [...] nutritional; endocrine; and metabolic disorders (5 sources) Abnormal weight gain; Translations: [Abnormal weight gain] 07-26-2024 Episodic Other nutritional; endocrine; and metabolic disorders (3 sources) Abnormal weight gain; Translations: [Abnormal weight gain] 07-26-2024 Episodic Other upper respiratory disease (9 sources) Epistaxis; [...] Onset: 02-22-2023 02-25-2023 Chronic Residual codes; unclassified (8 sources) Obstructive sleep apnea syndrome; Translations: [Obstructive sleep apnea (adult) (pediatric)] 05-31-2024 Chronic Residual codes; unclassified (11 sources) Obstructive sleep apnea (adult) (pediatric); Translations: [Obstructive sleep apnea (adult)(pediatric)] Onset: 02-22-2023 05-31-2024 Chronic Residual codes; unclassified (9 sources) Tobacco user; Translations: [Tobacco use] Episodic Residual codes; unclassified (9 sources) Never smoked tobacco; Translations: [Other specified [...] (suspected) exposure to COVID-19] Unclassified (1 source) Obesity, class 2; Translations: [Obesity, class 2] Onset: 07-12-2024 Urinary tract infections (14 sources) Urinary tract infectious disease; Translations: [Urinary tract infection, site not specified] Episodic Viral infection (13 sources) Disease caused by 2019-nCoV; Translations: [COVID-19] 12-22-2023 Episodic Viral infection (1 source) COVID-19; Translations: [COVID-19] Onset: 07-12-2024 Past or Other Problems Problem Classification Problem Date Documented Date Episodic/Chronic Administrative/social admission (20 sources) Follow-up status; Translations: [Other specified counseling] Onset: 08-29-2023 Resolved: 06-10-2024 08-29-2023 Episodic Bacterial infection; unspecified site (1 source) Bacterial infectious disease; Translations: [Bacterial infection, unspecified, in conditions classified elsewhere and of unspecified site] Onset: 04-10-2018 Episodic Coma; stupor; and brain damage (1 source) Somnolence; Translations: [Somnolence] Onset: 07-12-2024 Episodic Deficiency and other anemia (1 source) Anemia; Translations: [Unspecified anemia] Onset: 05-26-2015 Episodic Malaise and fatigue (20 sources) Fatigue; Translations: [Other malaise and fatigue] Onset: 09-07-2021 Episodic Mood disorders (7 sources) Mood disorders Onset: 10-09-2021 06-16-2022 Neoplasms [...] Translations: [DYSPNEA UNSPECIFIED] Onset: 11-06-2021 Episodic Other nervous system disorders (1 source) Altered sensation of skin; Translations: [Disturbance of skin sensation] Onset: 06-10-2017 Episodic Other non-traumatic joint disorders (1 source) Arthralgia of the lower leg; Translations: [Pain in joint, lower leg] Onset: 06-10-2017 Episodic Other nutritional; endocrine; and metabolic disorders (12 sources) Obesity; Translations: [Obesity, unspecified] Onset: 02-25-2023 [...] [Other specified health status] Onset: 08-29-2023 Episodic Residual codes; unclassified (1 source) Other specified personal risk factors, not elsewhere classified; Translations: [Other specified personal risk factors, not elsewhere classified] Onset: 07-12-2024 Episodic Unclassified (6 sources) Never smoked tobacco; Translations: [Never a smoker] Unclassified (1 source) LOW BACK PAIN, UNSPECIFIED; Translations: [LOW BACK PAIN, UNSPECIFIED] Onset: 08-15-2022 Unclassified (6 sources) Onset: 08-29-2023 Resolved: 10-06-2024 08-29-2023 Results Test Name Value Interpretation Reference Range Facility Magnetic resonance imaging r eportOrdered By: Harsh Ríos on 08-03-2024 Study report [facility] [place] [address] [place], [place] [id number] MRI Report Signed Patient: Nya Bell MR#: [id number] : 1955 Acct:[id number] Age/Sex: 68 / F ADM Date: 5 Loc: MR Room: Type: [facility] Attending Dr: Maren Aden Copies to: Maren Aden~ Ordering Provider: Maren Aden Date of Service: 08/03/24 XR/XR pre/post mri xray: S52.591A ([id number]) MR/MR wrist RT wo con: SEE ORDER MRI the right wrist without contrast Routine technique HISTORY: Fell injuring right wrist. Continued pain. Potential sprain. No linear fracture identified. Minimal regions of bone marrow edema the carpal bones and distal radius likely degenerative. Minimal bony contusion may be present. Dorsal palmar ligaments intact. No DISI or VISI deformity. At the level of Disha's tubercle there is thickening and heterogeneous signal changes of the extensor pollicis longus tendon with surrounding edema. Consideration for partial tear/tenosynovitis. Remaining extensor tendons intact. The flexor tendons intact. Median nerve unremarkable. Center tear of the triangular fibrocartilage tendon. Likely degenerative. Small distal radioulnar joint effusion. Cystic changes of the distal ulna. MR/MR wrist RT wo con IMPRESSION: No linear fracture. Subtle carpal distal radius bony edema. Likelyrelated to degenerative change and possible bony contusion. Degenerative central fibrocartilage tendon with small amount effusion in the distal radioulnar joint. No traumatic tear. Findings of tenosynovitis/partial tear ofthe extensor pollicis longus at Disha's tubercle. 2 views of the right breast obtained for pre-MRI assessment. No displaced fracture. Adequate bony alignment. Mild degeneration. Unremarkable soft tissues. Ulnar minus variance Impression dictated by: Harsh Ríos M.D.08/03/2024 3:45 PM Dictation Location: [place] [address] Transcribed By: [facility] 08/03/24 [id number] Dictated By: Harsh Ríos DO 08/03/24 1520 Signed By: 04/01/[address] [facility] XR pre/post mri xrayon 08-03 XR pre/post mri xray [facility] [place] [address] [place], [place] [id number] MRI Report Signed Patient: Nya Bell MR#: [id number] : 1955 Acct:[id number] Age/Sex: 68 / F ADM Date: 08/03/24 Loc: MR Room: Type: [facility] Attending Dr: Maren Aden Copies to: Maren Aden Ordering Provider: Maren Aden Date of Service: 08/03/24 XR/XR pre/post mri xray: S52.591A ([id number]) MR/MR wrist RT wo con: SEE ORDER MRI the right wrist without contrast Routine technique HISTORY: Fell injuring right wrist. Continued pain. Potential sprain. No linear fracture identified. Minimal regions of bone marrow edema the carpal bones and distal radius likely degenerative. Minimal bony contusion may be present. Dorsal palmar ligaments intact. No DISI or VISI deformity. At the level of Disha's tubercle there is thickening and heterogeneous signal changes of the extensor pollicis longus tendon with surrounding edema. Consideration for partial tear/tenosynovitis. Remaining extensor tendons intact. The flexor tendons intact. Median nerve unremarkable. Center tear of the triangular fibrocartilage tendon. Likely degenerative. Small distal radioulnar joint effusion. Cystic changes of the distal ulna. MR/MR wrist RT wo con IMPRESSION: No linear fracture. Subtle carpal distal radius bony edema. Likely related to degenerative change and possible bony contusion. Degenerative central fibrocartilage tendon with small amount effusion in the distal radioulnar joint. No traumatic tear. Findings of tenosynovitis/partial tear of the extensor pollicis longus at Disha's tubercle. 2 views of the right breast obtained for pre-MRI assessment. No displaced fracture. Adequate bony alignment. Mild degeneration. Unremarkable soft tissues. Ulnar minus variance Impression dictated by: Harsh Ríos M.D.08/03/2024 3:45 PM Dictation Location: [place] [address] Transcribed By: [facility] 08/03/24 1545 Dictated By: Harsh Ríos DO 08/03/24 1520 Signed By: 08/03/24 1545 Normal [facility] A1C with Estimated Average G phyllis 07-12-2024 Glucose [Mass/Vol] 114 mg/dL Normal [facility] Comment on above: Result Comment: PERF ORMED BY: [place] [address] PATHOLOGIST WINDOW [employer]IMMER ARASELI SAHU M.D. Performed By: #### C BCNO, A1C WTH eA, LIPID, TSH3 wRFLX #### [facility] [address] HbA1c (Bld) [Mass fraction] 5.6 % Normal 4.3-5.6 [facility] Comment on above: Result Comment: Incr eased risk for diabetes: 5.7 - 6.4 diabetes: >6.4 glycemic control for adults with diabetes: <7.0 Performed By: #### C BCNO, A1C WTH eA, LIPID, TSH3 wRFLX #### [facility] [address] Blood estimated average gluc ose determination by estimation from glycated hemoglobinOrdered By: Rosemarie Lea on 07-12-2024 Average glucose Estimated from glycated hemoglobin (Bld) [Mass/Vol] Glucose mean value [Mass/volume] in Blood Estimated from glycated hemoglobin [facility] Cholesterol [Mass/volume] in Serum or PlasmaOrdered By: Rosemarie Lea on 07-12-2024 Cholesterol [Mass/Vol] Cholesterol [Mass/volume] in Serum or Plasma 140-[address] [facility] Comment on above: Chol less than 200 m g/dl low riskChol 201-239 mg/dl borderline riskChol 240 mg/dl and greater high risk Cholesterol in HDL [Mass/vol ume] in Serum or PlasmaOrdered By: Rosemarie Lea on 07-12-2024 Cholesterol in HDL [Mass/Vol] Serum or plasma high density lipoprotein (HDL) cholesterol measurement 23- [facility] Comment on above: HDL CHOL ATP-III CLA SSIFICATION Cardiovascular RiskHDL > or equal to 60 mg/dL LOWHDL < 40 mg/dL HIGH Cholesterol in LDL Calc [Mas s/Vol]Ordered By: Rosemarie Lea on 07-12-2024 Cholesterol in LDL [Mass/Vol] Cholesterol in LDL [Mass/volume] in Serum or Plasma by calculation 0-[address] [facility] Comment on above: LDL ATP III CLASSIFI CATIONLDL less than 100 mg/dL OptimalLDL 100-129 mg/dL Near or above optimalLDL 130-159 mg/dL Borderline highLDL 160-189 mg/dL HighLDL greater than 189 mg/dL Very high Cholesterol in VLDL Calc [Ma ss/Vol]Ordered By: Rosemarie Lea on 07-12-2024 Cholesterol in VLDL [Mass/Vol] Cholesterol in VLDL [Mass/volume] in Serum or Plasma by calculation [facility] Erythrocyte distribution wid th Auto (RBC) [Ratio]Ordered By: Rosemarie Lea on 07-12-2024 Erythrocyte distribution width (RBC) [Ratio] Erythrocyte distribution width [Ratio] by Automated count 11.9-15.[address] [facility] Hematocrit Auto (Bld) [Volum e fraction]Ordered By: Rosemarie Lea on 07-12-2024 Hematocrit (Bld) [Volume fraction] Hematocrit [Volume Fraction] of Blood by Automated count 34.0-46.[address] [facility] Hemoglobin A1c/Hemoglobin.to duke in BloodOrdered By: Rosemarie Lea on 07-12-2024 HbA1c (Bld) [Mass fraction] Hemoglobin A1c percentage 4.3-5.6 [facility] Comment on above: Increased risk for d iabetes: 5.7 - 6.4diabetes: >6.4glycemic control for adults with diabetes: <7.0 Hemoglobin [Mass/volume] in BloodOrdered By: Rosemarie Lea on 07-12-2024 Hemoglobin (Bld) [Mass/Vol] Hemoglobin [Mass/volume] in Blood 11.8-15.[address] [facility] Hemogram CBC Without Diffon 07-12-2024 Erythrocyte distribution width (RBC) [Ratio] 14.4 % Normal 11.9-15.3 [facility] Comment on above: Performed By: #### C BCNO, A1C WTH eA, LIPID, TSH3 wRFLX #### [address] Hematocrit (Bld) [Volume fraction] 36.0 % Normal 34.0-46.4 [facility] Comment on above: Performed By: #### C BCNO, A1C WTH eA, LIPID, TSH3 wRFLX #### [address] Hemoglobin (Bld) [Mass/Vol] 12.3 g/dL Normal 11.8-15.4 [facility] Comment on above: Performed By: #### C BCNO, A1C WTH eA, LIPID, TSH3 wRFLX #### [address] MCH (RBC) [Entitic mass] 29.0 pg Normal 24.7-34.3 [facility] Comment on above: Performed By: #### C BCNO, A1C WTH eA, LIPID, TSH3 wRFLX #### [address] MCV (RBC) [Entitic vol] 84.7 fL Normal 80-100 [facility] Comment on above: Performed By: #### C BCNO, A1C WTH eA, LIPID, TSH3 wRFLX #### [address] Mean Corpuscular HGB Conc 34.2 g/dL Normal 32.0-35.0 [facility] Comment on above: Performed By: #### C BCNO, A1C WTH eA, LIPID, TSH3 wRFLX #### [address] Platelet mean volume (Bld) [Entitic vol] 9.0 fL Normal 6.3-10.7 [facility] Comment on above: Result Comment: PERF ORMED BY: [place] [address] PATHOLOGIST [employer] ARASELI SAHU M.D. Performed By: #### C BCNO, A1C WTH eA, LIPID, TSH3 wRFLX #### [address] Platelets (Bld) [#/Vol] 299 10*3/uL Normal 150-450 [facility] Comment on above: Performed By: #### C BCNO, A1C WTH eA, LIPID, TSH3 wRFLX #### [facility] [address] RBC (Bld) [#/Vol] 4.25 10*6/uL Normal 3.60-5.00 [facility] Comment on above: Performed By: #### C BCNO, A1C WTH eA, LIPID, TSH3 wRFLX #### [facility] [address] [place] [address] [place] WBC (Bld) [#/Vol] 8.0 10*3/uL Normal 3.8-11.6 [facility] Comment on above: Performed By: #### C BCNO, A1C WTH eA, LIPID, TSH3 wRFLX #### [facility] [address] Leukocytes [#/volume] correc jo ann for nucleated erythrocytes in Blood by Automated counOrdered By: Rosemarie Lea on 07-12-2024 WBC corrected for nucl RBC Auto (Bld) [#/Vol] Leukocytes [#/volume] corrected for nucleated erythrocytes in Blood by Automated coun 3.8-11.[address] [facility] Lipid Panelon 07-12-2024 Cholesterol [Mass/Vol] 145 mg/dL Normal 140-200 [facility] Comment on above: Result Comment: Chol less than 200 mg/dl low risk Chol 201-239 mg/dl borderline risk Chol 240 mg/dl and greater high risk Performed By: #### C BCNO, A1C WTH eA, LIPID, TSH3 wRFLX #### [facility] [address] Cholesterol in HDL [Mass/Vol] 51 mg/dL Normal 23-92 [facility] Comment on above: Result Comment: HDL CHOL ATP-III CLASSIFICATION Cardiovascular Risk HDL > or equal to 60 mg/dL LOW HDL < 40 mg/dL HIGH Performed By: #### C BCNO, A1C WTH eA, LIPID, TSH3 wRFLX #### [facility] [address] Cholesterol.total/Ch olesterol in HDL [Mass ratio] 2.8 {ratio} Normal <5.0 [facility] Comment on above: Performed By: #### C BCTELLY, A1C WT eA, LIPID, TSH3 wRFLX #### [facility] [address] LDL Cholesterol,Calculat ed 83 mg/dL Normal 0-100 [facility] Comment on above: Result Comment: LDL ATP III CLASSIFICATION LDL less than 100 mg/dL Optimal LDL 100-129 mg/dL Near or above optimal LDL 130-159 mg/dL Borderline high LDL 160-189 mg/dL High LDL greater than 189 mg/dL Very high Performed By: #### C EMMY, A1C WT eA, LIPID, TSH3 wRFLX #### [facility] [address] Triglyceride w/Reflex 53 mg/dL Normal 0-149 [facility] Comment on above: Result Comment: TRIG ATP III CLASSIFICATION TRIG less than 150 mg/dL Normal TRIG 150-199 mg/dL Borderline high TRIG 200-500 mg/dL High TRIG greater than 500 mg/dL Very high Standard traceable to the Center for Disease Conrtrol and Prevention (CDC) test method. Performed By: #### C BCTELLY, A1C [facility] eA, LIPID, TSH3 wRFLX #### [facility] [address] VLDL CHOLESTEROL 10 mg/dL Normal [facility] Comment on above: Performed By: #### C EMMY, A1C [facility] eA, LIPID, TSH3 wRFLX #### [facility] [address] MCH Auto (RBC) [Entitic mass ]Ordered By: Rosemarie Lea on 07-12-2024 MCH (RBC) [Entitic mass] MCH [Entitic mass] by Automated count 24.7-34.[address] [facility] MCHC Auto (RBC) [Mass/Vol]Or dered By: Rosemarie Lea on 07-12-2024 MCHC (RBC) [Mass/Vol] MCHC [Mass/volume] by Automated count 32.0-35.[address] [facility] MCV Auto (RBC) [Entitic vol] Ordered By: Rosemarie Lea on 07-12-2024 MCV (RBC) [Entitic vol] MCV [Entitic volume] by Automated count 80-[address] [facility] Platelet mean volume Auto (B ld) [Entitic vol]Ordered By: Rosemarie Lea on 07-12-2024 Platelet mean volume (Bld) [Entitic vol] Platelet mean volume [Entitic volume] in Blood by Automated count 6.3-10.[address] [facility] Platelets Auto (Bld) [#/Vol] Ordered By: Rosemarie Lea on 07-12-2024 Platelets (Bld) [#/Vol] Platelets [#/volume] in Blood by Automated count 150-[address] [facility] RBC Auto (Bld) [#/Vol]Ordere d By: Rosemarie Lea on 07-12-2024 RBC (Bld) [#/Vol] Erythrocytes [#/volu me] in Blood by Automated count 3.60-5.[address] [facility] Serum or plasma total choles terol/high density lipoprotein (HDL) cholesterol mass ratOrdered By: Rosemarie Lea on 07-12-2024 Cholesterol.total/Ch olesterol in HDL [Mass ratio] Serum or plasma total cholesterol/high density lipoprotein (HDL) cholesterol mass rat <5.[address] [facility] Thyroid Stim Hormone w/Rflxo n 07-12-2024 Thyroid Stim Hormone w/Rflx 1.67 u[iU]/mL Normal 0.45-5.33 [facility] Comment on above: Result Comment: PERF ORMED BY: [place] [address] PATHOLOGIST [employer] ARASELI SAHU M.D. Performed By: #### C BCNO, A1C WTH eA, LIPID, TSH3 wRFLX #### [address] Thyrotropin [Units/volume] i n Serum or PlasmaOrdered By: Rosemarie Lea on 07-12-2024 TSH Qn Thyrotropin [Units/v olume] in Serum or Plasma 0.45-5.[address] [facility] Triglyceride [Mass/volume] i n Serum or PlasmaOrdered By: Rosemarie Lea on 07-12-2024 Triglyceride [Mass/Vol] Triglyceride [Mass/volume] in Serum or Plasma 0-[address] [facility] Comment on above: TRIG ATP III CLASSIF ICATIONTRIG less than 150 mg/dL NormalTRIG 150-199 mg/dL Borderline highTRIG 200-500 mg/dL High TRIG greater than 500 mg/dL Very highStandard traceable to the Center for Disease Conrtrol and Prevention (CDC) test method. HbA1c HPLC (Bld) [Mass fract ion]on 05-31-2024 HbA1c (Bld) [Mass fraction] Hemoglobin A1c/Hemoglobin.total in Blood by HPLC [facility] BASIC METABOLIC PANLon 05-20 Anion gap [Moles/Vol] 10 mmol/L Normal 5-15 [facility] Comment on above: Performed By: #### B MP #### [facility] ([id number]) [address], [address] [place] [address] Calcium [Mass/Vol] 9.3 mg/dL [facility] Comment on above: Performed By: #### B MP #### [facility] ([id number]) [address], [address] [place] [address] Chloride [Moles/Vol] 105 mmol/L [facility] Comment on above: Performed By: #### B MP #### [facility] ([id number]) [address], [address] [place] [address] CO2 [Moles/Vol] 26 mmol/L [facility] Comment on above: Performed By: #### B MP #### [facility] ([id number]) [address], [address] [place] [address] Creatinine [Mass/Vol] 0.73 mg/dL [facility] Comment on above: Result Comment: METH OD TRACEABLE TO IDMS STANDARD Performed By: #### B MP #### [facility] ([id number]) [address], [address] [place] [address] GFR/1.73 sq M.predicted among non-blacks MDRD (S/P/Bld) [Vol rate/Area] 89 mL/min/{1.73_m2} Normal >59 [facility] Comment on above: Result Comment: Reported eGFR is based on the CKD-EPI 2020 equation that does not use a race coefficient. Performed By: #### B MP #### [facility] ([id number]) [address], [address] [place] [address] Glucose [Mass/Vol] 121 mg/dL [facility] Comment on above: Performed By: #### B MP #### [facility] ([id number]) [address], [address] [place] [address] Potassium [Moles/Vol] 3.8 mmol/L [facility] Comment on above: Performed By: #### B MP #### [facility] ([id number]) [address], [address] [place] [address] Sodium [Moles/Vol] 141 mmol/L [facility] Comment on above: Performed By: #### B MP #### [facility] ([id number]) [address], [address] [place] [address] Urea nitrogen [Mass/Vol] 19 mg/dL [facility] Comment on above: Performed By: #### B MP #### [facility] ([id number]) [address], [address] [place] [address] No Panel Informationon 05-20 Estimated GFR (Non- 89 mL/min [facility] Cardiac Device Check - In Cl inicon 03-01-2024 [facility] Work Phone: Radiology Study observation (narrative) [facility] Work Phone: Influenza virus B Ag [Presen ce] in Upper respiratory specimen by Rapid immunoassayon 12-22-2023 FLUBV Ag IA.rapid Ql (Nph) Negative [facility] No Panel Informationon 12-21 Influenza Type A (Rapid) Negative [facility] POC SARS CoV-2 Antigen Positive [facility] Basic metabolic 2000 panelon 08-29-2023 Anion gap [Moles/Vol] 11 mmol/L Normal 10-20 [facility] Comment on above: Performed By: #### 2 4321-2 #### EMILE YEE ([id number]) [facility] ([facility]) [address] [place] [address] Calcium [Mass/Vol] 9.5 mg/dL Normal 8.6-10.3 [facility] Comment on above: Performed By: #### 2 4321-2 #### EMILE YEE ([id number]) [facility] ([facility]) [address] [place] [address] Chloride [Moles/Vol] 107 mmol/L Normal 98-107 [facility] Comment on above: Performed By: #### 2 4321-2 #### EMILE YEE ([id number]) [facility] ([facility]) [address] [place] [address] CO2 [Moles/Vol] 29 mmol/L Normal 21-32 [facility] Comment on above: Performed By: #### 2 4321-2 #### EMILE YEE ([id number]) [facility] ([facility]) [address] [place] [address] Creatinine [Mass/Vol] 0.75 mg/dL Normal 0.50-1.05 [facility] Comment on above: Performed By: #### 2 4321-2 #### EMILE YEE ([id number]) [facility] ([facility]) [address] [place] [address] Glomerular filtration rate/1.73 sq M.predicted 87 mL/min/1.73m*2 Normal >60 [facility] Comment on above: Result Comment: Calc ulations of estimated GFR are performed using the 2020 CKD-EPI Study Refit equation without the race variable for the IDMS-Traceable creatinine methods. https://jasn.asnjournals.org/content/early//ASN.5693070 988 Performed By: #### 2 4321-2 #### EMILE YEE ([id number]) [facility] ([facility]) [address] [place] [address] Glucose [Mass/Vol] 105 mg/dL High 74-99 [facility] Comment on above: Performed By: #### 2 4321-2 #### PONCEIBELISUZE LAWSANDREA MARJAN ([id number]) [facility] ([facility]) [address] [place] [address] Potassium [Moles/Vol] 4.4 mmol/L Normal 3.5-5.3 [facility] Comment on above: Performed By: #### 2 4321-2 #### PONCEIBRAMONA YEE ([id number]) [facility] ([facility]) [address] [place] [address] Sodium [Moles/Vol] 143 mmol/L Normal 136-145 [facility] Comment on above: Performed By: #### 2 4321-2 #### PONCEIBRAMONA LAWS RIO MARJAN ([id number]) [facility] ([facility]) [address] [place] [address] Urea nitrogen [Mass/Vol] 19 mg/dL Normal 6-23 [facility] Comment on above: Performed By: #### 2 4321-2 #### PONCEIBRAMONA LAWS RIO MARJAN ([id number]) [facility] ([facility]) [address] [place] [address] ECG 12 lead (Clinic Performe d)on 08-29-2023 See scan [facility] Work Phone: Echocardiogramon 11-22-[address], [address] [place] [address] TRANSTHORACIC ECHOCARDIOGRAM REPORT Patient Name: NYA Hayward Physician: [id number] Lupe Rosado MD, [facility] Study Date: 11/22/2022 Referring LUPE ROSADO Physician: MRN/PID: [id number] PCP: Anupam Pereira Accession/Order#: [id number] [facility] Location: Date of : 1955 Fellow: Gender: F Nurse: Admit Date: Prepress Manager: Ashlyn Cam RDCS, RVT Height: 152.40 cm CC Report to: Weight: 91.17 kg Study Type: Echocardiogram BSA: 1.87 m2 Blood Pressure: 134 /62 mmHg Diagnosis/ICD: I50.22-Chronic systolic (congestive) heart failure (CHF); I42.9-Cardiomyopathy, unspecified Indication: AICD, WALDEMAR, Obesity Procedure/CPT: Echo Complete w Full Doppler-80007 Study Detail: The following Echo studies were [...] 0.8 m/s (0.6-0.9m/s) PV Max P.3 mmHg [id number] Lupe Rosado MD, FAC Electronically signed on 11/22/2022 at 1:01:56 PM Final Normal [facility] Office Visit (Cardiology)on 10-09-2022 Follow-up visit Diagnoses/Problems [...] visit. Echo Same meds Per Dr. Lupe Rosado MD, schedule at [facility] for echo Follow up [...] scheduled. We will arrange for that at [facility]. Her weight is unchanged from previously [...] AICD, device is assessed by electrophysiology at [facility] 3?cardiac catheterization 7 years ago at [facility] was normal 4? fatigue of unknown [...] Recorded: 09Oct2022 10:59AM Heart Rate72, L Radial Nziohhrm805, LUE, Sitting Ymbtqgctf78, LUE, Sitting Height5 ft Svkzcy814 lb BMI Xkivwuzjpo39.26 kg/m2 BSA Calculated1.87 Tobacco Useb) No PHQ-2 [...] Cardiovascular: c (more content not included)... Normal [facility] Tobacco Screening.on 023 Fall risk assessment a) No falls within the last year [facility] [place] [address] DO Work Phone: Tobacco use status [facility] b) No [facility] [place] [address] DO Work Phone: Tobacco Screening. Yes [facility] [address] DO Work Phone: CBC AUTO DIFFon 05-21-2022 BASO # 0.0 103/ul Normal 0.0-0.1 [facility] Comment on above: Performed By: #### C BC ####[facility] [address] [place] [id number] Mazariegos Basophils/100 WBC (Bld) 0.4 % Normal 0.2-2.0 [facility] Comment on above: Performed By: #### C BC ####[facility] [address] [place] [address]Dr. Phillip Mazariegos EO # 0.2 103/ul Normal 0.0-0.7 [facility] Comment on above: Performed By: #### C BC ####[facility] [address] [place], [place] [address]Dr. Phillip Mazariegos Eosinophils/100 WBC (Bld) 2.0 % Normal 0.9-7.0 [facility] Comment on above: Performed By: #### C BC ####[facility] [address] [place], [place] [address]Dr. Phillip Mazariegos Erythrocyte distribution width (RBC) [Ratio] 13.8 % Normal 11.0-15.0 [facility] Comment on above: Performed By: #### C BC ####[facility] [address] [place], [place] [address]Dr. Phillip Mazariegos Hematocrit (Bld) [Volume fraction] 36.3 % Normal 36.0-48.0 [facility] Comment on above: Performed By: #### C BC ####[facility] [address] [place], [place] [address]Dr. Phillip Mazariegos Hemoglobin (Bld) [Mass/Vol] 12.1 g/dL Normal 12.0-16.0 [facility] Comment on above: Performed By: #### C BC ####[facility] [address] [place], [place] [address]Dr. Phillip Mazariegos IG # 0.02 10e3/ul Normal 0.00-0.03 [facility] Comment on above: Performed By: #### C BC ####[facility] [address] [place], [place] [address]Dr. Phillip Mazariegos IG % 0.3 % Normal 0.0-0.5 [facility] Comment on above: Performed By: #### C BC ####[facility] [address] [place], [place] [address]Dr. Phillip Mazariegos LYMPH # 1.9 103/ul Normal 1.2-3.8 [facility] Comment on above: Performed By: #### C BC ####[facility] [address] [place] [id number]. Rerebrent Mazariegos Lymphocytes/100 WBC (Bld) 25.7 % Normal 20.5-60.0 [facility] Comment on above: Performed By: #### C BC ####[facility] [address] [place] [id number]. Phillip Mazariegos MANUAL DIFF REQ NO Normal [facility] Comment on above: Performed By: #### C BC ####[facility] [address] [place] [id number]. Phillip Mazariegos MCH (RBC) [Entitic mass] 28.7 pg Normal 26.7-34.0 [facility] Comment on above: Performed By: #### C BC ####[facility] [address] [place] [address]Dr. Phillip Mazariegos MCHC (RBC) [Mass/Vol] 33.3 g/dL Normal 29.9-35.2 [facility] Comment on above: Performed By: #### C BC ####[facility] [address] [place] [address]Dr. Phillip Mazariegos MCV (RBC) [Entitic vol] 86.0 fL Normal 81.0-99.0 [facility] Comment on above: Performed By: #### C BC ####[facility] [address] [place], [place] [address]Dr. Phillip Mazariegos MONO # 0.6 103/ul Normal 0.3-0.8 [facility] Comment on above: Performed By: #### C BC ####[facility] [address] [place] [id number]. Phillip Mazariegos Monocytes/100 WBC (Bld) 7.8 % Normal 1.7-12.0 [facility] Comment on above: Performed By: #### C BC ####[facility] [address] [place], [place] [address]Dr. Phillip Mazariegos NEUT # 4.7 103/ul Normal 1.4-6.5 [facility] Comment on above: Performed By: #### C BC ####[facility] [address] [place] [address]Dr. Phillip Mazariegos Neutrophils/100 WBC (Bld) 63.8 % Normal 43.0-75.0 [facility] Comment on above: Performed By: #### C BC ####[facility] [address] [place] [id number]. Phillip Mazariegos Platelet mean volume (Bld) [Entitic vol] 9.5 fL Normal 9.5-13.5 [facility] Comment on above: Performed By: #### C BC ####[facility] [address] [place] [address]Dr. Phillip Mazariegos PLT 269 103/ul Normal 150-450 [facility] Comment on above: Performed By: #### C BC ####[facility] [address] [place] [address]Dr. Phillip Mazariegos RBC 4.22 106/ul Normal 4.20-5.40 [facility] Comment on above: Performed By: #### C BC ####[facility] [address] [place] [address]Dr. Phillip Mazariegos WBC 7.4 103/ul Normal 4.0-11.0 [facility] Comment on above: Performed By: #### C BC ####[facility] [address] [place] [address]DrBeau Mazariegos FERRITINon 05-21-2022 Ferritin [Mass/Vol] 212.0 ng/mL Normal 8.0-252.0 [facility] Comment on above: Performed By: #### F ERR, VITB12, VITAD #### [facility] [address] [place] [address] [address] Phillip Mazariegos VITAMIN B12on 05-21-2022 Cobalamin (Vitamin B12) [Mass/Vol] 698.0 pg/mL Normal 193.0-986.0 [facility] Comment on above: Performed By: #### F ERR, VITB12, VITAD #### [facility] [address] [place] [address] [address] Phillip Mazariegos VITAMIN D 25 OHon 05-21-2022 VIT D 25-OH 28.1 ng/mL Normal [facility] Comment on above: Performed By: #### F ERR, VITB12, VITAD ####[facility] [address] [place], [place] [address]Dr. Phillip Mazariegos VIT D RANGES SEE BELOW Normal [facility] Comment on above: Result Comment: <20 ng/mL Vit D deficient 20 - <30 ng/mL Vit D insufficient 30 - 100 ng/mL Vit D sufficient >100 ng/mL Potential Toxicity Performed By: #### F ERR, VITB12, VITAD ####[facility] [address] [place], [place] [address]Dr. Phillip Mazariegos PROF CHEM 8 (BAS METB)on Anion gap [Moles/Vol] 10.8 mmol/L Normal [facility] Comment on above: Performed By: #### B MP ####[facility] Qvonjcmmdw7[address] [place], [place] [address]Dr. Phillip Mazariegos Calcium [Mass/Vol] 9.1 mg/dL Normal 8.5-10.1 [facility] Comment on above: Performed By: #### B MP ####[facility] Prxtbsybbq[address] [place], [place] [address]Dr. Phillip Mazariegos Chloride [Moles/Vol] 108 mmol/L Critically high 98-107 [facility] Comment on above: Performed By: #### B MP ####[facility] Vtsuckyeqz[address] [place], [place] [address]Dr. Phillip Mazariegos CO2 [Moles/Vol] 29.6 mmol/L Normal 21.0-32.0 [facility] Comment on above: Performed By: #### B MP ####[facility] Xofb[address] [place], [place] [address]DrBeau Mazariegos Creatinine [Mass/Vol] 0.85 mg/dL Normal 0.55-1.02 [facility] Comment on above: Performed By: #### B MP ####[facility] Pfnok[address] [place], [place] [address]Dr. Phillip Mazariegos EGFR-AF TRISTANIAN >60 Normal >=60 [facility] Comment on above: Performed By: #### B MP ####[facility] [address] [place], [place] [address]Vb. Phillip Yair EGFR-NON AF TRISTANIAN >60 Normal >=60 [facility] Comment on above: Performed By: #### B MP ####[facility] Z[address] [place], [place] [address]Mb. Phillip Mazariegos Glucose [Mass/Vol] 90 mg/dL Normal 74-106 [facility] Comment on above: Performed By: #### B MP ####[facility] [address] [place], [place] [address]Zl. Phillip Mazariegos Potassium [Moles/Vol] 4.4 mmol/L Normal 3.5-5.1 [facility] Comment on above: Performed By: #### B MP ####[facility] [address] [place] [id number]. Phillip Mazariegos Sodium [Moles/Vol] 144 mmol/L Normal 136-145 [facility] Comment on above: Performed By: #### B MP ####[facility] [address] [place] [id number]. Phillip Mazariegos Urea nitrogen [Mass/Vol] 24.0 mg/dL Critically high 7.0-18.0 [facility] Comment on above: Performed By: #### B MP ####[facility] [address] [place] [id number]. Phillip Mazariegos Urea nitrogen/Creatinine [Mass ratio] 28.2 mg/mg Normal [facility] Comment on above: Performed By: #### B MP ####[facility] [address] [place], [place] [address]Es. Phillip Mazariegos Office Visit (Cardiology)on 04-17-2022 Follow-up [...] Metabolic Panel; Status:Active - Retrospective Authorization; Requested for:[id number]; Echocardiogram; Status:Hold For - Scheduling,Retrospective Authorization; Requested for:[id number]; Class 2 obesity with body mass index (BMI) of 39.0 to 39.9 in adult Healthy Weight Tips; Status:Complete - Retrospective Authorization; Done: [id number] Some eating tips that can help you lose weight.; Status:Complete - Retrospective Authorization; Done: [id number] Patient Instructions Please bring all medicines, vitamins, [...] AICD, device is assessed by electrophysiology at [facility] 3?cardiac catheterization 7 years ago at [facility] was normal 4?extreme fatigue of unknown [...] negative for complaint. Vitals Vital Signs Recorded: [id number] 11:16AM Heart Rate62, R Radial Bfydbkun879, LUE, Sitting Woyewzocm07, LUE, Sitting Height5 ft Hstapw117 lb 5 oz BMI Xhxzcbtiiq73.32 kg/m2 BSA Calculated1.87 Tobacco Useb) No Falls [...] is normal (more content not included)... Normal [employer] Tobacco Screening.on 022 Fall risk assessment a) No falls within the last year [facility] [place] [employer] DO Work Phone: Tobacco use status CP b) No [facility] [address] DO Work Phone: XR LSPINE MIN 4 VIEWSon XR LSPINE MIN 4 VIEWS EXAMINATION: XR [...] MAREN MARTEL Date: 2022-02-05 07:27 Normal [facility] PROF CHEM 8 (BAS METB)on Anion gap [Moles/Vol] 12.0 mmol/L Normal [facility] Comment on above: Performed By: #### B MP #### [facility] [address] [place] [address] Dr. Phillip Mazariegos Calcium [Mass/Vol] 9.1 mg/dL Normal 8.5-10.1 [facility] Comment on above: Performed By: #### B MP #### [facility] [address] [address] [address] Phillip Mazariegos Chloride [Moles/Vol] 107 mmol/L Normal 98-107 [facility] Comment on above: Performed By: #### B MP #### [facility] [address] [address] [address] Phillip Mazariegos CO2 [Moles/Vol] 27.0 mmol/L Normal 21.0-32.0 [facility] Comment on above: Performed By: #### B MP #### [facility] [address] [address] [address] Phillip Mazariegos Creatinine [Mass/Vol] 0.89 mg/dL Normal 0.55-1.02 [facility] Comment on above: Performed By: #### B MP #### [facility] [address] [address] [address] Phillip Mazariegos EGFR-AF TRISTANIAN >60 Normal >=60 [facility] Comment on above: Performed By: #### B MP #### [facility] [address] [address] [address] Phillip Mazariegos EGFR-NON AF TRISTANIAN >60 Normal >=60 [facility] Comment on above: Performed By: #### B MP #### [facility] [address] [address] [address] Phillip Mazariegos Glucose [Mass/Vol] 109 mg/dL Critically high 74-106 [facility] Comment on above: Performed By: #### B MP #### [facility] [address] [address] [address] Phillip Mazariegos Potassium [Moles/Vol] 4.0 mmol/L Normal 3.5-5.1 [facility] Comment on above: Performed By: #### B MP #### [facility] [address] [address] [address] Phillip Mazariegos Sodium [Moles/Vol] 142 mmol/L Normal 136-145 [facility] Comment on above: Performed By: #### B MP #### [facility] [address] [address] [address] Phillip Mazariegos Urea nitrogen [Mass/Vol] 19.0 mg/dL Critically high 7.0-18.0 [facility] Comment on above: Performed By: #### B MP #### [facility] [address] [address] [address] Phillip Mazariegos Urea nitrogen/Creatinine [Mass ratio] 21.3 mg/mg Normal [facility] Comment on above: Performed By: #### B #### [facility] [address] [address] [address] Phillip Mazariegos Tobacco Screening.on 022 Adult depression screening assessment No [facility] [employer] 250 DO Work Phone: Adult depression screening assessment Yes [facility] [employer] 250 DO Work Phone: Fall risk assessment a) No falls within the last year [facility] [employer] 250 DO Work Phone: Tobacco use status CP b) No [facility] [employer] 250 DO Work Phone: Tobacco Screening. 3-Nearly every day [facility] [employer] 250 DO Work Phone: Tobacco Screening. 0-Not at all [facility] [employer] 250 DO Work Phone: Tobacco Screening. Very Difficult [facility] [employer] 250 DO Work Phone: CULTURE URINEon 09-09-2021 [...] F Trimethoprim/Sulfamethoxaz ole <=20 S F Normal [facility] Comment on above: Performed By: #### U RCX ####[facility] [address] [place] [address]Dr. Phillip Mazariegos CBC AUTO DIFFon 09-07-2021 BASO # 0.0 103/ul Normal 0.0-0.1 [facility] Comment on above: Performed By: #### C BC #### [facility] [address] [place] [address] Dr. Phillip Mazariegos Basophils/100 WBC (Bld) 0.4 % Normal 0.2-2.0 [facility] Comment on above: Performed By: #### C BC #### [facility] [address] [place] [address] Dr. Phillip Mazariegos EO # 0.1 103/ul Normal 0.0-0.7 [facility] Comment on above: Performed By: #### C BC #### [facility] [address] [place] [address] Dr. Phillip Mazariegos Eosinophils/100 WBC (Bld) 1.9 % Normal 0.9-7.0 [facility] Comment on above: Performed By: #### C BC #### [facility] [address] [place] [address] Dr. Phillip Mazariegos Erythrocyte distribution width (RBC) [Ratio] 13.4 % Normal 11.0-15.0 [facility] Comment on above: Performed By: #### C BC #### [facility] [address] [place] [address] Dr. Phillip Mazariegos Hematocrit (Bld) [Volume fraction] 39.6 % Normal 36.0-48.0 [facility] Comment on above: Performed By: #### C BC #### [facility] [address] [place] [address] Dr. Phillip Mazariegos Hemoglobin (Bld) [Mass/Vol] 13.0 g/dL Normal 12.0-16.0 [facility] Comment on above: Performed By: #### C BC #### [facility] [address] [place] [address] Dr. Phillip Mazariegos IG # 0.04 10e3/ul Critically high 0.00-0.03 [facility] Comment on above: Performed By: #### C BC #### [facility] [address] [place] [address] Dr. Phillip Mazariegos IG % 0.5 % Normal 0.0-0.5 [facility] Comment on above: Performed By: #### C BC #### [facility] [address] [place] [address] Dr. Phillip Mazariegos LYMPH # 1.9 103/ul Normal 1.2-3.8 [facility] Comment on above: Performed By: #### C BC #### [facility] [address] [place] [address] Dr. Phillip Mazariegos Lymphocytes/100 WBC (Bld) 26.2 % Normal 20.5-60.0 [facility] Comment on above: Performed By: #### C BC #### [facility] [address] [place] [address] Dr. Phillip Mazariegos MANUAL DIFF REQ NO Normal [facility] Comment on above: Performed By: #### C BC #### [facility] [address] [place] [address] Dr. Phillip Mazariegos MCH (RBC) [Entitic mass] 28.8 pg Normal 26.7-34.0 [facility] Comment on above: Performed By: #### C BC #### [facility] [address] [place] [address] Dr. Phillip Mazariegos MCHC (RBC) [Mass/Vol] 32.8 g/dL Normal 29.9-35.2 [facility] Comment on above: Performed By: #### C BC #### [facility] [address] [place] [address] Dr. Phillip Mazariegos MCV (RBC) [Entitic vol] 87.8 fL Normal 81.0-99.0 [facility] Comment on above: Performed By: #### C BC #### [facility] [address] [place] [address] Dr. Phillip Mazariegos MONO # 0.5 103/ul Normal 0.3-0.8 [facility] Comment on above: Performed By: #### C BC #### [facility] [address] [place] [address] Dr. Phillip Mazariegos Monocytes/100 WBC (Bld) 6.9 % Normal 1.7-12.0 [facility] Comment on above: Performed By: #### C BC #### [facility] [address] [place] [address] Dr. Phillip Mazariegos NEUT # 4.7 103/ul Normal 1.4-6.5 [facility] Comment on above: Performed By: #### C BC #### [facility] [address] [place] [address] Dr. Phillip Mazariegos Neutrophils/100 WBC (Bld) 64.1 % Normal 43.0-75.0 [facility] Comment on above: Performed By: #### C BC #### [facility] [address] [place] [address] Dr. Phillip Mazariegos Platelet mean volume (Bld) [Entitic vol] 9.6 fL Normal 9.5-13.5 [facility] Comment on above: Performed By: #### C BC #### [facility] [address] [place] [address] Dr. Phillip Mazariegos PLT 298 103/ul Normal 150-450 [facility] Comment on above: Performed By: #### C BC #### [facility] [address] [place] [address] Dr. Phillip Mazariegos RBC 4.51 106/ul Normal 4.20-5.40 [facility] Comment on above: Performed By: #### C BC #### [facility] [address] [place] [address] Dr. Phillip Mazariegos WBC 7.3 103/ul Normal 4.0-11.0 [facility] Comment on above: Performed By: #### C BC #### [facility] [address] [place] [address] [address] Phillip Mazariegos PROF CHEM 8 (BAS METB)on Anion gap [Moles/Vol] 11.7 mmol/L Normal [facility] Comment on above: Performed By: #### T SH, BMP #### [facility] [address] [place] [address] [address] Phillip Mazariegos Calcium [Mass/Vol] 8.8 mg/dL Normal 8.5-10.1 [facility] Comment on above: Performed By: #### T SH, BMP #### [facility] [address] [place] [address] [address] Phillip Mazariegos Chloride [Moles/Vol] 103 mmol/L Normal 98-107 [facility] Comment on above: Performed By: #### T SH, BMP #### [facility] [address] [place] [address] Dr. Phillip Mazariegos CO2 [Moles/Vol] 28.0 mmol/L Normal 21.0-32.0 [facility] Comment on above: Performed By: #### T SH, BMP #### [facility] [address] [place] [address] Dr. Phillip Mazariegos Creatinine [Mass/Vol] 1.02 mg/dL Normal 0.55-1.02 [facility] Comment on above: Performed By: #### T SH, BMP #### [facility] [address] [place] [address] Dr. Phillip Mazariegos EGFR-AF TRISTANIAN >60 Normal >=60 [facility] Comment on above: Performed By: #### T SH, BMP #### [facility] [address] [place] [address] Dr. Phillip Mazariegos EGFR-NON AF TRISTANIAN 54 mL/min/1.73m2 Critically low >=60 [facility] Comment on above: Performed By: #### T SH, BMP #### [facility] [address] [place] [address] Dr. Phillip Mazariegos Glucose [Mass/Vol] 119 mg/dL Critically high 74-106 [facility] Comment on above: Performed By: #### T SH, BMP #### [facility] [address] [place] [address] Dr. Phillip Mazariegos Potassium [Moles/Vol] 3.7 mmol/L Normal 3.5-5.1 [facility] Comment on above: Performed By: #### T SH, BMP #### [facility] [address] [place] [address] Dr. Phillip Mazariegos Sodium [Moles/Vol] 139 mmol/L Normal 136-145 [facility] Comment on above: Performed By: #### T SH, BMP #### [facility] [address] [place] [address] Dr. Phillip Mazariegos Urea nitrogen [Mass/Vol] 19.0 mg/dL Critically high 7.0-18.0 [facility] Comment on above: Performed By: #### T SH, BMP #### [facility] [address] [place] [address] Dr. Phillip Mazariegos Urea nitrogen/Creatinine [Mass ratio] 18.6 mg/mg Normal [facility] Comment on above: Performed By: #### T SH, BMP #### [facility] [address] [place] [address] Dr. Phillip Mazariegos TSHon 09-07-2021 TSH 3.616 uIU/mL Normal 0.358-3.740 [facility] Comment on above: Performed By: #### T SH, BMP #### [facility] [address] [place] [address] Dr. Phillip Mazariegos TSH RANGE SEE BELOW Normal [facility] Comment on above: Result Comment: <0.3 4 UIU/ml HYPERTHYROID 0.34-5.60 UIU/ml EUTHYROID >5.60 UIU/ml HYPOTHYROID Performed By: #### T SH, BMP #### [facility] [address] [place] [address] Dr. Phillip Mazariegos UA (CLEAN/CATCH) SALES REPRESENTATIVE GROCERIES/MICRO I F IND.on 09-07-2021 Bilirubin Ql (U) Negative Normal NEGATIVE [facility] Comment on above: Performed By: #### U ACSIND ####[facility] [address] [place], [place] [address]Dr. Phillip Mazariegos Clarity (U) SL CLOUDY Abnormal CLEAR [facility] Comment on above: Performed By: #### U ACSIND ####[facility] [address] [place], [place] [address]Dr. Phillip Mazariegos Color (U) YELLOW Normal YELLOW [facility] Comment on above: Performed By: #### U ACSIND ####[facility] [address] [place], [place] [address]Dr. Phillip Mazariegos Glucose Ql (U) Negative Normal NEGATIVE [facility] [place] [facility] Comment on above: Performed By: #### U ACSIND ####[facility] [address] [place], [place] [address]Dr. Phillip Mazariegos Hemoglobin Ql (U) Negative Normal NEGATIVE [facility] Comment on above: Performed By: #### U ACSIND ####[facility] [address] [place], [place] [address]Dr. Phillip Mazariegos Ketones Ql (U) Negative Normal NEGATIVE [facility] [place] [facility] Comment on above: Performed By: #### U ACSIND ####[facility] [address] [place], [place] [address]Dr. Phillip Mazariegos LEUKOCYTES Negative Normal NEGATIVE [facility] Comment on above: Performed By: #### U ACSIND ####[facility] [address] [place], [place] [address]Dr. Phillip Mazariegos Nitrite Ql (U) Negative Normal NEGATIVE [facility] [place] [facility] Comment on above: Performed By: #### U ACSIND ####[facility] [address] [place], [place] [address]Dr. Phillip Mazariegos pH (U) 6.0 [pH] Normal 5-9 [facility] Comment on above: Performed By: #### U ACSIND ####[facility] [address] [place], [place] [address]Dr. Phillip Mazariegos SPEC GRAVITY >=1.030 Abnormal 1.005-<=1.0 25 [facility] Comment on above: Performed By: #### U ACSIND ####[facility] [address] [place] [address]Dr. Phillip Mazariegos UA PROTEIN Negative Normal NEGATIVE/ TRACE [facility] Comment on above: Performed By: #### U ACSIND ####[facility] [address] [place] [address]Dr. Phillip Mazariegos UR MICRO IND INDICATED Normal [facility] Comment on above: Performed By: #### U ACSIND ####[facility] [address] [place] [address]Dr. Phillip Mazariegos Urobilinogen Qn (U) 0.2 {Trish'U}/dL Normal 0.2 - 1. 0 [facility] Comment on above: Performed By: #### U ACSIND ####[facility] [address] [place] [address]Dr. Phillip Mazariegos URINE MICROSCOPIC ONLYon BACTERIA SMALL Abnormal NONE SEEN [facility] Comment on above: Performed By: #### U MICRO #### [facility] [address] [address] [address] Phillip Mazariegos Bacteria identified Cx Nom (U) INDICATED Normal [facility] Comment on above: Performed By: #### U MICRO #### [facility] [address] [address] [address] Phillip Mazariegos CAST NONE SEEN Normal NONE SEEN [facility] Comment on above: Performed By: #### U MICRO #### [facility] [address] [place] [address] [address] Phillip Mazariegos Crystals LM Nom (Urine sed) NONE SEEN Normal NONE SEEN [facility] Comment on above: Performed By: #### U MICRO #### [facility] [address] [address] [address] Phillip Mazariegos Epithelial cells LM Ql (Urine sed) FEW Abnormal NONE SEEN /RARE [facility] Comment on above: Performed By: #### U MICRO #### [facility] [address] [place] [address] [address] Phillip Mazariegos MUCOUS TRACE Abnormal NONE SEEN [facility] Comment on above: Performed By: #### U MICRO #### [facility] [address] [place] [address] [address] Phillip Mazariegos RBC NONE SEEN Abnormal 0-2 [facility] Comment on above: Performed By: #### U MICRO #### [facility] [address] [place] [address] [address] Phillip Mazariegos WBC 0-2 Abnormal NONE SEEN [facility] Comment on above: Performed By: #### U MICRO #### [facility] [address] [place] [address] [address] Phillip Mazariegos XR CHEST 2 Von [...] by: ELAINA ARRIAZA Date: 2021-09-07 15:03 Normal [facility] Radiologyon 08-28-2021 XR Chest 2 Views Normal [facility] [address] DO Work Phone: Laboratory - Chemistry and C hemistry - challengeon 08-02-2021 Anion gap [Moles/Vol] 11 mmol/L 10 - 20 [facility] 250 DO Work Phone: Calcium [Mass/Vol] 9.3 mg/dL 8.6 - 10.3 [facility] 250 DO Work Phone: Chloride [Moles/Vol] 107 mmol/L 98 - 107 [facility] 250 DO Work Phone: CO2 [Moles/Vol] 27 mmol/L 21 - 32 [facility] 250 DO Work Phone: Creatinine [Mass/Vol] 0.79 mg/dL See Below [facility] 250 DO Work Phone: Comment on above: Reference Range: 0.5 0 - 1.05 Glucose [Mass/Vol] 98 mg/dL 74 - 99 [facility] Maryana Plummer DO Work Phone: Potassium [Moles/Vol] 3.7 mmol/L 3.5 - 5.3 [facility] Maryana Plummer DO Work Phone: [phone] Sodium [Moles/Vol] 141 mmol/L 136 - 145 [facility] Maryana Plummer DO Work Phone: Urea nitrogen [Mass/Vol] 20 mg/dL 6 - 23 [facility] Maryana Plummer DO Work Phone: Laboratory - Coagulationon 0 08-02-2021 aPTT Coag (PPP) [Time] 32 s 26 - 39 [facility] Maryana Plummer DO Work Phone: Comment on above: THE APTT IS NO LONGE R USED FOR MONITORING UNFRACTIONATED HEPARIN THERAPY. FOR MONITORING HEPARIN THERAPY, USE THE HEPARIN ASSAY. INR Coag (PPP) [Relative time] 1.0 {INR} 0.9 - 1.1 [facility] Maryana Plummer DO Work Phone: PT Coag (PPP) [Time] 11.9 s 9.8 - 13.4 [facility] Maryana Plummer DO Work Phone: Laboratory - Hematology and Cell countson 08-02-2021 Erythrocyte distribution width (RBC) [Ratio] 13.3 % See Below [facility] Maryana Plummer DO Work Phone: [phone] Comment on above: Reference Range: 11. 5 - 14.5 Hematocrit (Bld) [Volume fraction] 37.9 % See Below [facility] Maryana Plummer DO Work Phone: Comment on above: Reference Range: 36. 0 - 46.0 Hemoglobin (Bld) [Mass/Vol] 12.7 g/dL See Below [facility] Maryana Plummer DO Work Phone: Comment on above: Reference Range: 12. 0 - 16.0 MCHC (RBC) [Mass/Vol] 33.5 g/dL See Below [facility] 250 DO Work Phone: [phone] Comment on above: Reference Range: 32. 0 - 36.0 MCV (RBC) [Entitic vol] 88 fL 80 - 100 [facility] Maryana villarreal 250 DO Work Phone: Platelets (Bld) [#/Vol] 168 10*3/uL 150 - 450 [facility] 250 DO Work Phone: [phone] RBC (Bld) [#/Vol] 4.33 {x10E12/L} See Below [facility] 250 DO Work Phone: [phone] Comment on above: Reference Range: 4.0 0 - 5.20 WBC (Bld) [#/Vol] 7.3 10*3/uL 4.4 - 11.3 [facility] 250 DO Work Phone: [phone] No Panel Informationon 08-02 [email or web address] 1:8080 [email or web address]?R etrieveTestByDateTime?Judy byuMZ=[id number]&Date=&Time=07%3a58%3a03%3a 00&TestType=ECG&Site=11&Ou tputType=PDF&Ext=PDF [facility] [facility] 250 DO Work Phone: [phone] Atrial-sensed ventricular-paced rhythm [facility] [facility] 250 DO Work Phone: [phone] Abnormal [facility] [facility] 250 DO Work Phone: [phone] [facility] [facility] 250 DO Work Phone: [phone] 431 1 [facility] [facility] 250 DO Work Phone: [phone] 1 [facility] [facility] 250 DO Work Phone: [phone] 1 [facility] [facility] [place] [address] DO Work Phone: [phone] [facility] [place] 250 DO Work Phone: [phone] 1 [facility] 250 DO Work Phone: [phone] [facility] 250 DO Work Phone: [phone] [facility] 250 DO Work Phone: [phone] [facility] 250 DO Work Phone: [phone] [facility] 250 DO Work Phone: [phone] [facility] [place] Work Phone: [phone] [facility] 250 DO Work Phone: [phone] [facility] 250 DO Work Phone: [phone] [facility] 250 DO Work Phone: 82 {mL/min/1.73m2} >90 [facility] 250 DO Work Phone: [phone] Comment on above: CALCULATIONS OF PHUC MATED GFR ARE PERFORMED USING THE 2020 CKD-EPI STUDY REFIT EQUATION WITHOUT THE RACE VARIABLE FOR THE IDMS-TRACEABLE CREATININE METHODS.https://jasn.asnjournals.org/content/early/ASN .0543416547 Radiologyon 08-02-2021 XR Chest 2 Views Normal [facility] Maryana villarreal 250 DO Work Phone: [phone] COVID-19 SOFIAOrdered By: Awais Mayes on 07-31-2021 SARS-CoV+SARS-CoV-2 (COVID-19) Ag IA.rapid Ql (Resp) Negative Negative [facility] Comment on above: This is a duplicate Gretchen SARS Antigen (RUSTAM) result to be used for statistical tracking purpose only. No Panel InformationOrdered By: Daphne Mayes on 07-31-2021 SARS Antigen (LFIA) [facility] Basophils Auto (Bld) [#/Vol] Ordered By: Daphne Mayes on 07-18-2021 Basophils (Bld) [#/Vol] 0.0 10*3/uL 0.0-0.[address] [facility] Basophils/100 WBC Auto (Bld) Ordered By: Daphne Mayes on 07-18-2021 Basophils/100 WBC (Bld) 0.5 % [facility] Blood hemoglobin measurement (mass/volume)Ordered By: Daphne Mayes on 07-18-2021 Hemoglobin (Bld) [Mass/Vol] 13.2 g/dL 11.8-15.[address] [facility] Blood leukocytes automated c ount (number/volume)Ordered By: Daphne Mayes on 07-18-2021 WBC (Bld) [#/Vol] 6.3 10*3/uL 4.5-11.0 [facility] COVID-19 Positive/NegativeOr dered By: Daphne Mayes on 07-18-2021 SARS-CoV-2 (COVID-19) N gene MELL+probe Ql (Resp) Positive Negative [facility] Comment on above: Positive results ying l only be called to Providers for the following groups of patients: Pre-Surgical Testing, Emergency Room, and Inpatients.Testing for SARS-CoV-2 by RT-PCRThis test was developed and its performance characteristics determined by [employer] and validated at the [facility]. This test has not been FDA cleared [...] on 07-18-2021 Creatinine [Mass/Vol] 0.76 mg/dL 0.44-1.[address] [facility] Eosinophils Auto (Bld) [#/Vo l]Ordered By: Daphne Mayes on 07-18-2021 Eosinophils (Bld) [#/Vol] 0.2 10*3/uL 0.0-0.[address] [facility] Eosinophils/100 WBC Auto (Bl d)Ordered By: Daphne Mayes on 07-18-2021 Eosinophils/100 WBC (Bld) 2.7 % [facility] Erythrocyte distribution wid th Auto (RBC) [Ratio]Ordered By: Daphne Mayes on 07-18-2021 Erythrocyte distribution width (RBC) [Ratio] 14.1 % 11.9-15.[address] [facility] Estimated glomerular filtrat ion rate (GFR) non- AmericanOrdered By: Daphne Mayes on 07-18-2021 GFR/1.73 sq M.predicted among non-blacks MDRD (S/P/Bld) [Vol rate/Area] > 60 mL/Min [facility] Hematocrit Auto (Bld) [Volum e fraction]Ordered By: Daphne Mayes on 07-18-2021 Hematocrit (Bld) [Volume fraction] 39.3 % 34.0-46.[address] [facility] Laboratory - CoagulationOrde red By: Daphne Mayes on 07-18-2021 PT Coag (PPP) [Time] 12.7 s 9.0-12.9 [facility] Laboratory - Hematology and Cell countsOrdered By: Daphne Mayes on 07-18-2021 Nucleated RBC/100 WBC (Bld) [Ratio] 0.2 % 0-0.[address] [facility] Lymphocytes Auto (Bld) [#/Vo l]Ordered By: Daphne Mayes on 07-18-2021 Lymphocytes (Bld) [#/Vol] 1.8 10*3/uL 1.00-4.[address] [facility] Lymphocytes/100 WBC Auto (Bl d)Ordered By: Daphne Mayes on 07-18-2021 Lymphocytes/100 WBC (Bld) 28.3 % [facility] MCH Auto (RBC) [Entitic mass ]Ordered By: Daphne Mayes on 07-18-2021 MCH (RBC) [Entitic mass] 29.3 pg 24.7-34.[address] [facility] MCHC Auto (RBC) [Mass/Vol]Or dered By: Daphne Mayes on 07-18-2021 MCHC (RBC) [Mass/Vol] 33.5 g/dL 32.0-35.[address] [facility] MCV Auto (RBC) [Entitic vol] Ordered By: Daphne Mayes on 07-18-2021 MCV (RBC) [Entitic vol] 87.5 fL 80-[address] [facility] Monocytes Auto (Bld) [#/Vol] Ordered By: Daphne Mayes on 07-18-2021 Monocytes (Bld) [#/Vol] 0.5 10*3/uL 0.0-0.[address] [facility] Monocytes/100 WBC Auto (Bld) Ordered By: Daphne Mayes on 07-18-2021 Monocytes/100 WBC (Bld) 7.5 % [facility] Neutrophils Auto (Bld) [#/Vo l]Ordered By: Daphne Mayes on 07-18-2021 Neutrophils (Bld) [#/Vol] 3.9 10*3/uL 1.8-7.[address] [facility] Neutrophils/100 WBC Auto (Bl d)Ordered By: Daphne Mayes on 07-18-2021 Neutrophils/100 WBC (Bld) 61.0 % [facility] No Panel InformationOrdered By: Daphne Mayes on 07-18-2021 Estimated GFR () > 60 mL/Min [facility] Comment on above: GFR estimated refere nce range: According to KDOQI guidelines, <60 ml/min/1.73m2 is sufficient to diagnose a patient with chronic kidney disease. Pharmacy Creatinine Clearance (Chem N/A [facility] Platelet mean volume Auto (B ld) [Entitic vol]Ordered By: Daphne Mayes on 07-18-2021 Platelet mean volume (Bld) [Entitic vol] 8.5 fL 6.3-10.[address] [facility] Platelet poor plasma interna tional normalized ratio (INR) by coagulation assay (relatOrdered By: Daphne Mayes on 07-18-2021 INR Coag (PPP) [Relative time] 1.1 {INR} [facility] Comment on above: INR Therapeutic Rang e [...] 07-18-2021 Platelets (Bld) [#/Vol] 282 10*3/uL 150-[address] [facility] RBC Auto (Bld) [#/Vol]Ordere d By: Daphne Mayes on 07-18-2021 RBC (Bld) [#/Vol] 4.49 10*6/uL 3.60-5.00 [facility] Serum or plasma calcium khurram urement (mass/volume)Ordered By: Daphne Mayes on 07-18-2021 Calcium [Mass/Vol] 9.3 mg/dL 8.2-10.2 [facility] Serum or plasma chloride stephen surement (moles/volume)Ordered By: Daphne Mayes on 07-18-2021 Chloride [Moles/Vol] 103 mmol/L 95-114 [facility] Serum or plasma glucose khurram urement (mass/volume)Ordered By: Daphne Mayes on 07-18-2021 Glucose [Mass/Vol] 118 mg/dL 70-100 [facility] Comment on above: ADA recommended refe rence rangeRandom Glucose Reference Range is dependent on time and content of last meal. Glucose of more than 200 mg/dL in a nonstressed, ambulatory subject supports the diagnosis of Diabetes Mellitus. Serum or plasma potassium me asurement (moles/volume)Ordered By: Daphne Mayes on 07-18-2021 Potassium [Moles/Vol] 3.9 mmol/L 3.5-5.[address] [facility] Serum or plasma sodium measu rement (moles/volume)Ordered By: Daphne Mayes on 07-18-2021 Sodium [Moles/Vol] 139 mmol/L 136-146 [facility] Serum or plasma total carbon dioxide measurement (moles/volume)Ordered By: Daphne Mayes on 07-18-2021 CO2 [Moles/Vol] 26.2 mmol/L 22.0-30.0 [facility] Serum or plasma urea nitroge n measurement (mass/volume)Ordered By: Daphne Mayes on 07-18-2021 Urea nitrogen [Mass/Vol] 16 mg/dL 01-[address] [facility] CBCon 08-01-2020 Erythrocyte distribution width (RBC) [Ratio] 13.4 % Normal 11.5 - 14.5 [facility] Comment on above: Performed By: #### C BC #### [address] [id number] Hematocrit (Bld) [Volume fraction] 41.9 % Normal 36.0 - 46.0 [facility] Comment on above: Performed By: #### C BC #### [address] [id number] Hemoglobin (Bld) [Mass/Vol] 13.3 g/dL Normal 12.0 - 16.0 [facility] Comment on above: Performed By: #### C BC #### [address] [id number] MCHC (RBC) [Mass/Vol] 31.7 g/dL Low 32.0 - 36.0 [facility] Comment on above: Performed By: #### C BC #### [address] [id number] MCV (RBC) [Entitic vol] 91 fL Normal 80 - 100 [facility] Comment on above: Performed By: #### C BC #### [address] [id number] Platelets (Bld) [#/Vol] 205 10*3/uL Normal 150 - 450 [facility] Comment on above: Performed By: #### C BC #### [address] [id number] RBC (Bld) [#/Vol] 4.62 x10E12/L Normal 4.00 - 5.20 [facility] Comment on above: Performed By: #### C BC #### [address] [id number] WBC (Bld) [#/Vol] 7.4 10*3/uL Normal 4.4 - 11.3 [facility] Comment on above: Performed By: #### C BC #### [address] [id number] CREATININEon 08-01-2020 Creatinine [Mass/Vol] 0.77 mg/dL Normal 0.50 - 1.05 [facility] Comment on above: Performed By: #### C REAT #### [address] [id number] Creatinine [Mass/Vol] mg/dL Normal >60 [facility] Comment on above: Result Comment: CALC ULATIONS OF ESTIMATED GFR ARE PERFORMED USING THE MDRD STUDY EQUATION FOR THE IDMS-TRACEABLE CREATININE METHODS. CLIN CHEM 2007;53:766-72 Performed By: #### C REAT #### [address] [id number] ELECTROLYTE PANELon 08-02-19 Anion gap [Moles/Vol] 12 mmol/L Normal 10 - 20 [facility] Comment on above: Performed By: #### E LECT #### [address] [id number] Chloride [Moles/Vol] 107 mmol/L Normal 98 - 107 [facility] Comment on above: Performed By: #### E LECT #### [address] [id number] HCO3 (Bld) [Moles/Vol] 28 mmol/L Normal 21 - 32 [facility] Comment on above: Performed By: #### E LECT #### [address] [id number] Potassium [Moles/Vol] 3.7 mmol/L Normal 3.5 - 5.3 [facility] Comment on above: Performed By: #### E LECT #### [address] [id number] Sodium [Moles/Vol] 143 mmol/L Normal 136 - 145 [facility] Comment on above: Performed By: #### E LECT #### [facility] [address] [place], [place] [id number] UREA NITROGENon 08-01-2020 Urea nitrogen [Mass/Vol] 17 mg/dL Normal 6 - 23 [facility] Comment on above: Performed By: #### U SHARON #### [facility] [address] [place], [place] [id number] CNNURSEon 11-13-2018 CNNURSE Nurse Visit (CARDMN) -- NYA BELL ([id number]) 1955 F Date Time Provider Department 11/13/18 7:00 AM RESEARCH NURSE CARD BALA DAS During your visit today, we recorded the following information about you: Aba Fraustotrungdominique [facility] 11/13/2018 4:02 PM Signed IRB [id number] TRIM-AF Study (Upstream Targeting for the Prevention of Atrial Fibrillation: Targeting Risk Interventions and Metformin for Atrial Fibrillation) PI: Jose Hodge I called the patient to follow up on potential participation in the TRIM-AF (NO AF Biomarker) study. The patient was unavailable and I left a voicemail to return my call at her convenience. Aba Berenicediego [facility] November 13, 2018 2:31 PM Referring [...] Status:Closed by UMU SUAREZABA Allen on 11/13/18 [facility] PROGRESSon 11-13-2018 PROGRESS HNO ID: [id number] Author: Aba Rodriguez [facility] Service: ? Author Type: ? Type: [...] my call at her convenience. Aba Rodriguez [facility] November 13, 2018 2:31 PM [facility] Coding Summary.on 07-02-2017 Coding Summary. CODING DATE: 018 FINAL [facility] STATUS: Home (Routine DC) PAYOR: Medicare [...] Stubbs Date Saved: 07/02/2017 08:19 am Normal [facility] Vital Signs Date Time Vital Sign Value Performing Clinician Facility 12-31-2024 13:06-0400 Body height 149.22 cm Anupam Pereira MD Work Phone: [facility] 12-31-2024 13:06-0400 Body mass index (BMI) [Ratio] 38 kg/m2 Anupam Pereira MD Work Phone: [facility] 12-31-2024 13:06-0400 Body temperature 98 [degF] Anupam Pereira MD Work Phone: [facility] 12-31-2024 13:06-0400 Body weight 84.82 kg Anupam Pereira MD Work Phone: [facility] 12-31-2024 13:06-0400 Diastolic blood pressure 77 mm[Hg] Anupam Pereira MD Work Phone: [facility] 12-31-2024 13:06-0400 Heart rate 77 /min Anupam Pereira MD Work Phone: [facility] 12-31-2024 13:06-0400 Respiratory rate 14 /min Anupam Pereira MD Work Phone: [facility] 12-31-2024 13:06-0400 SaO2% (BldA) [Mass fraction] 95 % Anupam Pereira MD Work Phone: [facility] 12-31-2024 13:06-0400 Systolic blood pressure 120 mm[Hg] Anupam Pereira MD Work Phone: [facility] 10-06-2024 10:07-0400 Body height 152.4 cm Lupe Rosado MD Work Phone: [facility] 10-06-2024 10:07-0400 Body mass index (BMI) [Ratio] 38.08 kg/m2 Lupe Rosado MD Work Phone: [facility] 10-06-2024 10:07-0400 Body weight 88.45 kg Lupe Rosado MD Work Phone: [facility] 10-06-2024 10:07-0400 Diastolic blood pressure 70 mm[Hg] Lupe Rosado MD Work Phone: [facility] 10-06-2024 10:07-0400 Heart rate 60 /min Lupe Rosado MD Work Phone: [facility] 10-06-2024 10:07-0400 Systolic blood pressure 114 mm[Hg] Lupe Rosado MD Work Phone: [facility] 07-26-2024 08:43-0400 Body height 149.22 cm Anupam Pereira MD Work Phone: [facility] 07-26-2024 08:43-0400 Body mass index (BMI) [Ratio] 39.4 kg/m2 Anupam Pereira MD Work Phone: [facility] 07-26-2024 08:43-0400 Body weight 87.7 kg Anupam Pereira MD Work Phone: [facility] 07-26-2024 08:43-0400 Diastolic blood pressure 74 mm[Hg] Anupam Pereira MD Work Phone: [facility] 07-26-2024 08:43-0400 Heart rate 70 /min Anupam Pereira MD Work Phone: [facility] 07-26-2024 08:43-0400 Respiratory rate 16 /min Anupam Pereira MD Work Phone: [facility] 07-26-2024 08:43-0400 SaO2% (BldA) [Mass fraction] 99 % Anupam Pereira MD Work Phone: [facility] 07-26-2024 08:43-0400 Systolic blood pressure 110 mm[Hg] Anupam Pereira MD Work Phone: [facility] 06-14-2024 13:25-0500 Body height 149.22 cm Anupam Pereira MD Work Phone: [facility] 06-14-2024 13:25-0500 Body mass index (BMI) [Ratio] 39.9 kg/m2 Anupam Pereira MD Work Phone: [facility] 06-14-2024 13:25-0500 Body weight 88.9 kg Anupam Pereira MD Work Phone: [facility] 06-14-2024 13:25-0500 Diastolic blood pressure 76 mm[Hg] Anupam Pereira MD Work Phone: [facility] 06-14-2024 13:25-0500 Heart rate 76 /min Anupam Pereira MD Work Phone: [facility] 06-14-2024 13:25-0500 Systolic blood pressure 117 mm[Hg] Anupam Pereira MD Work Phone: [facility] 06-10-2024 10:24-0500 Body height 152.4 cm Lupe Rosado MD Work Phone: [facility] 06-10-2024 10:24-0500 Body mass index (BMI) [Ratio] 38.55 kg/m2 Lupe Rosado MD Work Phone: [facility] 06-10-2024 10:24-0500 Body weight 89.54 kg Lupe Rosado MD Work Phone: [facility] 06-10-2024 10:24-0500 Diastolic blood pressure 60 mm[Hg] Lupe Rosado MD Work Phone: [facility] 06-10-2024 10:24-0500 Heart rate 82 /min Lupe Rosado MD Work Phone: [facility] 06-10-2024 10:24-0500 Systolic blood pressure 108 mm[Hg] Lupe Rosado MD Work Phone: [facility] 05-31-2024 11:36-0500 Body height 149.22 cm [facility] 05-31-2024 11:36-0500 Body mass index (BMI) [Ratio] 39.7 kg/m2 [facility] 05-31-2024 11:36-0500 Body weight 88.59 kg [facility] 05-31-2024 11:36-0500 Diastolic blood pressure 76 mm[Hg] [facility] 05-31-2024 11:36-0500 Heart rate 65 /min [facility] 05-31-2024 11:36-0500 Respiratory rate 16 /min [facility] 05-31-2024 11:36-0500 SaO2% (BldA) [Mass fraction] 98 % [facility] 05-31-2024 11:36-0500 Systolic blood pressure 114 mm[Hg] [facility] 03-02-2024 10:53-0400 Body height 151.13 cm [facility] 03-02-2024 10:53-0400 Body mass index (BMI) [Ratio] 38.7 kg/m2 [facility] 03-02-2024 10:53-0400 Body weight 88.45 kg [facility] 03-02-2024 10:53-0400 Diastolic blood pressure 81 mm[Hg] [facility] 03-02-2024 10:53-0400 Heart rate 78 /min [facility] 03-02-2024 10:53-0400 Systolic blood pressure 137 mm[Hg] [facility] 12-22-2023 13:59-0400 Body height 151.13 cm [facility] 12-22-2023 13:59-0400 Body mass index (BMI) [Ratio] 39.5 kg/m2 [facility] 12-22-2023 13:59-0400 Body temperature 98.6 [degF] [facility] 12-22-2023 13:59-0400 Body weight 90.37 kg [facility] 12-22-2023 13:59-0400 Heart rate 95 /min [facility] 12-22-2023 13:59-0400 Respiratory rate 18 /min [facility] 12-22-2023 13:59-0400 SaO2% (BldA) [Mass fraction] 97 % [facility] 11-18-2023 10:43-0400 Body height 152.4 cm Lupe Rosado MD Work Phone: [facility] 11-18-2023 10:43-0400 Body mass index (BMI) [Ratio] 37.5 kg/m2 Lupe Rosado MD Work Phone: [facility] 11-18-2023 10:43-0400 Body weight 87.09 kg Lupe Rosado MD Work Phone: [facility] 11-18-2023 10:43-0400 Diastolic blood pressure 64 mm[Hg] Lupe Rosado MD Work Phone: [facility] 11-18-2023 10:43-0400 Heart rate 76 /min Lupe Rosado MD Work Phone: [facility] 11-18-2023 10:43-0400 Systolic blood pressure 106 mm[Hg] Lupe Rosado MD Work Phone: [facility] 08-29-2023 10:30-0400 Body height 152.4 cm Daphne Mayes MD Work Phone: [facility] 08-29-2023 10:30-0400 Body mass index (BMI) [Ratio] 37.5 kg/m2 Daphne Mayes MD Work Phone: [facility] 08-29-2023 10:30-0400 Body weight 87.09 kg Daphne Mayes MD Work Phone: [facility] 08-29-2023 10:30-0400 Diastolic blood pressure 80 mm[Hg] Daphne Mayes MD Work Phone: [facility] 08-29-2023 10:30-0400 Heart rate 64 /min Daphne Mayes MD Work Phone: [facility] 08-29-2023 10:30-0400 Systolic blood pressure 136 mm[Hg] Daphne Mayes MD Work Phone: [facility] 05-28-2023 11:30-0500 Body height 151.13 cm Anupam Pereira Other [employer] Other 05-28-2023 11:30-0500 Body mass index (BMI) [Ratio] 37.33 kg/m2 Anupam Pereira Other [employer] Other 05-28-2023 11:30-0500 Body weight 85.28 kg Anupamlamine Pereira Other [employer] Other 05-28-2023 11:30-0500 Diastolic blood pressure 82 mm[Hg] Anupam Pereira Other [employer] Other 05-28-2023 11:30-0500 Systolic blood pressure 121 mm[Hg] Anupam Pereira Other [employer] Other 05-12-2023 13:32-0500 Body height 152.4 cm Lupe Rosado MD Work Phone: [facility] 05-12-2023 13:32-0500 Body mass index (BMI) [Ratio] 37.3 kg/m2 Lupe Rosado MD Work Phone: [facility] 05-12-2023 13:32-0500 Body weight 86.64 kg Lupe Rosado MD Work Phone: [facility] 05-12-2023 13:32-0500 Diastolic blood pressure 60 mm[Hg] Lupe Rosado MD Work Phone: [facility] 05-12-2023 13:32-0500 Heart rate 62 /min Lupe Rosado MD Work Phone: [facility] 05-12-2023 13:32-0500 Systolic blood pressure 106 mm[Hg] Lupe Rosado MD Work Phone: [facility] 02-25-2023 10:10-0400 Body height 152.4 cm Lynn Jorgensen DIANETICIST-CERTIFIED HISTOLOGIC TECHNICIAN Work Phone: [facility] 02-25-2023 10:10-0400 Body mass index (BMI) [Ratio] 37.69 kg/m2 Lynn Jorgensen DIANETICIST-CERTIFIED HISTOLOGIC TECHNICIAN Work Phone: [facility] 02-25-2023 10:10-0400 Body weight 87.54 kg Lynn Jorgensen DIANETICIST-CERTIFIED HISTOLOGIC TECHNICIAN Work Phone: [facility] 02-25-2023 10:10-0400 Diastolic blood pressure 80 mm[Hg] Lynn Jorgensen DIANETICIST-CERTIFIED HISTOLOGIC TECHNICIAN Work Phone: [facility] 02-25-2023 10:10-0400 Heart rate 74 /min Lynn Jorgensen DIANETICIST-CERTIFIED HISTOLOGIC TECHNICIAN Work Phone: [facility] 02-25-2023 10:10-0400 Systolic blood pressure 132 mm[Hg] Lynn Jorgensen DIANETICIST-CERTIFIED HISTOLOGIC TECHNICIAN Work Phone: [facility] 01-09-2023 13:15-0400 Body height 151.13 cm Anupam Pereira Other [employer] Other 01-09-2023 13:15-0400 Body mass index (BMI) [Ratio] 38.05 kg/m2 Anupam Pereira Other [employer] Other 01-09-2023 13:15-0400 Body weight 86.91 kg Anupam Pereira Other [employer] Other 01-09-2023 13:15-0400 Diastolic blood pressure 95 mm[Hg] Anupam Pereira Other [employer] Other 01-09-2023 13:15-0400 Systolic blood pressure 140 mm[Hg] Anupam Pereira Other [employer] Other 12-31-2022 14:15-0400 Body height 151.13 cm Anupam Pereira Other [employer] Other 12-31-2022 14:15-0400 Body mass index (BMI) [Ratio] 38.32 kg/m2 Anupam Pereira Other [employer] Other 12-31-2022 14:15-0400 Body temperature 97.9 [degF] Anupam Pereira Other [employer] Other 12-31-2022 14:15-0400 Body weight 87.54 kg Anupam Pereira Other [employer] Other 12-31-2022 14:15-0400 Diastolic blood pressure 83 mm[Hg] Anupam Pereira Other [employer] Other 12-31-2022 14:15-0400 Systolic blood pressure 127 mm[Hg] Anupam Pereira Other [employer] Other 12-24-2022 10:45-0400 Body height 151.13 cm Anupam Pereira Other [employer] Other 12-24-2022 10:45-0400 Body mass index (BMI) [Ratio] 38.52 kg/m2 Anupam Pereira Other [employer] Other 12-24-2022 10:45-0400 Body weight 88 kg Anupam Pereira Other [employer] Other 12-24-2022 10:45-0400 Diastolic blood pressure 75 mm[Hg] Anupam Pereira Other [employer] Other 12-24-2022 10:45-0400 Systolic blood pressure 111 mm[Hg] Anupam Pereira Other [facility] [employer] Other 10-09-2022 10:59-0400 Body height 152.4 cm Anupam Pereira Work Phone: [facility] 250 DO Work Phone: 10-09-2022 10:59-0400 Body mass index (BMI) [Ratio] 39.26 kg/m2 Anupam Pereira Work Phone: [facility] 250 DO Work Phone: 10-09-2022 10:59-0400 Body surface area Derived from formula 1.87 m2 Anupam Pereira Work Phone: [facility] 250 DO Work Phone: 10-09-2022 10:59-0400 Body weight 91.17 kg Anupam Pereira Work Phone: [facility] 250 DO Work Phone: 10-09-2022 10:59-0400 Diastolic blood pressure 64 mm[Hg] Anupam Pereira Work Phone: [facility] 250 DO Work Phone: 10-09-2022 10:59-0400 Heart rate 72 /min Anupam Pereira Work Phone: [facility] 250 DO Work Phone: 10-09-2022 10:59-0400 Systolic blood pressure 124 mm[Hg] Anupam Pereira Work Phone: [facility] 250 DO Work Phone: 05-21-2022 15:30-0500 Body height 151.13 cm Anupam Pereira Other [facility] [employer] Other 05-21-2022 15:30-0500 Body mass index (BMI) [Ratio] 40.11 kg/m2 Anupam Pereira Other [employer] Other 05-21-2022 15:30-0500 Body weight 91.63 kg Anupam Pereira Other [employer] Other 05-21-2022 15:30-0500 Diastolic blood pressure 70 mm[Hg] Anupam Pereira Other [employer] Other 05-21-2022 15:30-0500 SaO2% (BldA) [Mass fraction] 97 % Anupam Pereira Other [employer] Other 05-21-2022 15:30-0500 Systolic blood pressure 126 mm[Hg] Anupam Pereira Other [employer] Other 04-17-2022 11:16-0500 Body height 152.4 cm Anupam Pereira Work Phone: [employer] 250 DO Work Phone: 04-17-2022 11:16-0500 Body mass index (BMI) [Ratio] 39.32 kg/m2 Anupam Pereira Work Phone: [employer] 250 DO Work Phone: 04-17-2022 11:16-0500 Body surface area Derived from formula 1.87 m2 Anupam Pereira Work Phone: [employer] 250 DO Work Phone: 04-17-2022 11:16-0500 Body weight 91.31 kg Anupam Pereira Work Phone: [employer] 250 DO Work Phone: 04-17-2022 11:16-0500 Diastolic blood pressure 84 mm[Hg] Anupam Pereira Work Phone: [employer] 250 DO Work Phone: 04-17-2022 11:16-0500 Heart rate 62 /min Anupam Pereira Work Phone: [facility] 250 DO Work Phone: 04-17-2022 11:16-0500 Systolic blood pressure 126 mm[Hg] Anupam Pereira Work Phone: [facility] 250 DO Work Phone: 10-09-2021 13:20-0400 Body height 152.4 cm Anupam Pereira Work Phone: [facility] 250 DO Work Phone: 10-09-2021 13:20-0400 Body mass index (BMI) [Ratio] 40.23 kg/m2 Anupam Pereira Work Phone: [facility] 250 DO Work Phone: 10-09-2021 13:20-0400 Body surface area Derived from formula 1.89 m2 Anupam Pereira Work Phone: [facility] 250 DO Work Phone: 10-09-2021 13:20-0400 Body weight 93.44 kg Anupam Pereira Work Phone: [facility] 250 DO Work Phone: 10-09-2021 13:20-0400 Diastolic blood pressure 89 mm[Hg] Anupam Pereira Work Phone: [facility] 250 DO Work Phone: 10-09-2021 13:20-0400 Heart rate 68 /min Anupam Pereira Work Phone: [facility] 250 DO Work Phone: 10-09-2021 13:20-0400 Systolic blood pressure 144 mm[Hg] Anupam Pereira Work Phone: [facility] 250 DO Work Phone: 10-09-2021 13:20-0400 12 1 Anupam Pereira Work Phone: [facility] 250 DO Work Phone: Comment on above: PHQ-9 TS 08-09-2021 15:58-0400 Body height 152.4 cm Anupam Pereira Work Phone: [facility] 250 DO Work Phone: 08-09-2021 15:58-0400 Body mass index (BMI) [Ratio] 41.21 kg/m2 Anupam Pereira Work Phone: [facility] 250 DO Work Phone: 08-09-2021 15:58-0400 Body surface area Derived from formula 1.91 m2 Anupam Pereira Work Phone: [facility] 250 DO Work Phone: 08-09-2021 15:58-0400 Body temperature 97 [degF] Anupam Pereira Work Phone: [facility] 250 DO Work Phone: 08-09-2021 15:58-0400 Body weight 95.71 kg Anupam Pereira Work Phone: [facility] 250 DO Work Phone: 08-09-2021 15:58-0400 Diastolic blood pressure 78 mm[Hg] Anupam Pereira Work Phone: [facility] 250 DO Work Phone: 08-09-2021 15:58-0400 Heart rate 82 /min Anupam Pereira Work Phone: [facility] 250 DO Work Phone: 08-09-2021 15:58-0400 Systolic blood pressure 132 mm[Hg] Anupam Pereira Work Phone: -[facility] 250 DO Work Phone: Encounters Encounter Date Encounter Type Care Provider Facility Start: 12-31-2024 End: 12-31-2024 ambulatory Anupam Pereira MD Work Phone: [facility] Work Phone: Start: 12-31-2024 End: 12-31-2024 Patient encounter procedure Anupam Pereira MD -[facility] Work Phone: Start: 12-09-2024 End: 12-09-2024 ambulatory Lupe Rosado Facility:[facility] Start: 12-09-2024 Non-patient / Non-visit She[facility] Harper [facility] Start: 10-06-2024 End: 10-06-2024 ambulatory [facility] Ambulatory Start: 10-06-2024 End: 10-06-2024 Office outpatient visit 25 minutes Lupe Rosado MD Work Phone: [facility] Comment on above: Nonischemic cardiomy opathy (Multi) (Primary Dx); ICD (implantable cardioverter-defibrillator) in place; Obstructive sleep apnea syndrome in adult; Never smoked cigarettes; BMI 38.0-38.9,adult; Class 2 obesity; Other fatigue Start: 09-03-2024 End: 09-03-2024 ambulatory Anupam Pereira MD Work Phone: [facility] Work Phone: Start: 09-03-2024 End: 09-03-2024 Patient encounter procedure Anupam Pereira MD Work Phone: [facility]-Pacemaker Check Start: 09-03-2024 Non-patient / Non-visit Anupam Pereira MD Work Phone: [facility] Start: 08-03-2024 End: 08-03-2024 ambulatory Anupam Pereira MD Work Phone: [facility] Work Phone: Start: 08-03-2024 End: 08-03-2024 Patient encounter procedure Anupam Pereira MD Work Phone: [facility] [place] Work Phone: Start: 07-26-2024 End: 07-26-2024 ambulatory Anupam Pereira MD Work Phone: [facility] Work Phone: Start: 07-26-2024 End: 07-26-2024 Patient encounter procedure Anupam Pereira MD Work Phone: [facility] Work Phone: Start: 07-12-2024 End: 07-12-2024 Patient encounter procedure Anupam Pereira MD Work Phone: [facility] [place] Work Phone: Start: 07-12-2024 End: 07-12-2024 ambulatory Anupam Pereira MD Work Phone: [facility] Work Phone: Start: 06-14-2024 End: 06-14-2024 ambulatory Anupam Pereira MD Work Phone: [facility] Work Phone: Start: 06-14-2024 End: 06-14-2024 Patient encounter procedure Anupam Pereira MD Work Phone: [facility] Work Phone: Start: 06-10-2024 End: 06-10-2024 Office outpatient visit 25 minutes Lupe Rosado MD Work Phone: [facility] Comment on above: ICD (implantable car dioverter-defibrillator) in place (Primary Dx); Chronic systolic congestive heart failure; Fatigue, unspecified type; Obstructive sleep apnea syndrome in adult; Never smoked cigarettes; BMI 38.0-38.9,adult; Class 2 obesity Start: 06-10-2024 End: 06-10-2024 ambulatory LUPE Denney [facility] Ambulatory Start: 06-08-2024 Non-patient / Non-visit Anupam Pereira MD Work Phone: [facility] Work Phone: Start: 06-03-2024 End: 06-03-2024 Patient encounter procedure Anupam Pereira MD Work Phone: [facility]-Pacemaker Check Start: 06-03-2024 End: 06-03-2024 ambulatory Anupam Pereira MD Work Phone: [facility] Work Phone: Start: 06-03-2024 Non-patient / Non-visit Anupam Pereira MD Work Phone: [facility] Start: 05-31-2024 End: 05-31-2024 ambulatory [facility] Work Phone: Start: 05-31-2024 End: 05-31-2024 Patient encounter procedure [facility] Work Phone: Start: 05-20-2024 End: 05-20-2024 ambulatory [facility] Start: 05-20-2024 Non-patient / Non-visit Anupam Pereira MD Work Phone: [facility] Work Phone: Start: 03-03-2024 Non-patient / Non-visit [facility] Work Phone: Start: 03-03-2024 End: 03-03-2024 ambulatory [facility] Facility:[facility] Start: 03-03-2024 Non-patient / Non-visit [facility] Start: 03-02-2024 End: 03-02-2024 ambulatory [facility] Work Phone: Start: 03-02-2024 End: 03-02-2024 Patient encounter procedure [facility] Work Phone: Start: 03-01-2024 End: 03-01-2024 Subsequent hospital visit by physician [facility] Comment on above: ICD (implantable car dioverter-defibrillator) in place Start: 03-01-2024 End: 03-01-[address] [facility] Start: 12-22-2023 End: 12-22-2023 ambulatory [facility] Work Phone: Start: 12-22-2023 End: 12-22-2023 Patient encounter procedure [facility] Work Phone: Start: 12-02-2023 End: 12-02-2023 ambulatory MD Anupam Pereira Work Phone: [facility] Work Phone: Start: 12-02-2023 End: 12-02-2023 Patient encounter procedure MD Anupam Pereira Work Phone: [facility]-Pacemaker Check Start: 12-02-2023 Non-patient / Non-visit [facility] Start: 11-18-2023 End: 11-18-2023 Office outpatient visit 25 minutes Lupe Rosado MD Work Phone: [facility] Comment on above: Cardiomyopathy, unsp ecified type (Multi); Chronic systolic congestive heart failure (Multi); ICD (implantable cardioverter-defibrillator) in place; Obstructive sleep apnea syndrome in adult; Fatigue, unspecified type; Never smoked cigarettes; Class 2 obesity without serious comorbidity with body mass index (BMI) of 37.0 to 37.9 in adult, unspecified obesity type Start: 11-18-2023 End: 11-18-2023 ambulatory LUPE CANOAHIM [facility] Ambulatory Start: 08-29-2023 End: 08-30-2023 ambulatory ANUPAM PEREIRA [facility] Start: 08-29-2023 End: 08-29-2023 Office outpatient visit 25 minutes Daphne Mayes MD Work Phone: [facility] Comment on above: ICD (implantable car [...] counseling; Encounter to discuss treatment options Start: 05-28-2023 Office outpatient vi sit 15 minutes Anupam Pereira [facility] Start: 05-28-2023 End: 05-28-2023 ambulatory MD Anupam Pereira Work Phone: [facility] [employer] Other Start: 05-28-2023 End: 05-28-2023 Patient encounter procedure MD Anupam Pereira Work Phone: [facility]-Pacemaker Check Start: 05-20-2023 End: 05-20-2023 ambulatory Anupam Pereira Other [employer] Other Start: 05-20-2023 Telephone encounter Anupam Pereira [facility] Start: 05-12-2023 End: 05-12-2023 Office outpatient visit 25 minutes Lupe Rosado MD Work Phone: [facility] Comment on above: Cardiomyopathy, unsp ecified type (CMS/HCC) (Primary Dx); ICD (implantable cardioverter-defibrillator) in place; Obstructive sleep apnea syndrome in adult; Class 2 obesity without serious comorbidity with body mass index (BMI) of 37.0 to 37.9 in adult, unspecified obesity type Start: 05-08-2023 End: 05-08-2023 Patient encounter procedure MD Anupam Pereira Work Phone: [facility] Work Phone: Start: 02-25-2023 End: 02-25-2023 Office outpatient visit 25 minutes Lynn Jorgensen APRN-PAMELA Work Phone: [facility] Comment on above: ICD (implantable car dioverter-defibrillator) in place (Primary Dx); Morbid obesity (CMS/HCC); Chronic systolic congestive heart failure (CMS/HCC); Cardiomyopathy, unspecified type (CMS/HCC); Dyspnea on exertion; Obstructive sleep apnea syndrome in adult; Other fatigue Start: 01-09-2023 End: 01-09-2023 ambulatory Anupam Pereira Other [employer] Other Start: 01-09-2023 Office outpatient vi sit 15 minutes Anupam Pereira [facility] Start: 12-31-2022 End: 12-31-2022 ambulatory Anupam Pereira Other [employer] Other Start: 12-31-2022 Office outpatient vi sit 15 minutes Anupam Pereira [facility] Start: 12-24-2022 End: 12-24-2022 ambulatory Anupam Pereira Other [employer] Other Start: 12-24-2022 Office outpatient vi sit 15 minutes Anupam Pereira [facility] Start: 12-20-2022 End: 12-20-2022 ambulatory Anupam Pereira Other [employer] Other Start: 12-20-2022 Telephone encounter Anupam Pereira [facility] Start: 12-16-2022 End: 12-16-2022 ambulatory Anupam Pereira Other [employer] Other Start: 12-16-2022 Telephone encounter Anupam Pereira [facility] Start: 11-28-2022 End: 11-28-2022 ambulatory MD Anupam Pereira Work Phone: [facility] Work Phone: Start: 11-28-2022 End: 11-28-2022 Patient encounter procedure MD Anupam Pereira Work Phone: [facility]-Pacemaker Check Start: 11-22-[address] Lupe Rosado Facility:[id number] Start: 10-09-[address] Lupe Rosado Facility:[id number] Start: 10-09-2022 Office outpatient vi sit 25 minutes Anupam Pereira Work Phone: [facility] 250 DO Work Phone: Start: 08-28-[address] Anupam Pereira Facility:[id number] Start: 08-28-2022 End: 08-28-2022 ambulatory MD Anupam Pereira Work Phone: [facility] Work Phone: Start: 08-28-2022 End: 08-28-2022 Patient encounter procedure MD Anupam Pereira Work Phone: [facility]-Pacemaker Check Start: 08-22-[address] Lupe Rosado Facility:[id number] Start: 08-15-2022 End: 08-16-2022 ambulatory YOSHI OLVERARAFASANDHYA . Facility:H1 Start: 07-17-[address] Lupe Rosado Facility:[id number] Start: 07-16-2022 End: 07-16-[address] ANUPAM PEREIRA Facility:H1 Start: 07-11-2022 Encounter for preprocedural cardiovascular examination DR JANICE IRVING . [facility] Start: 07-09-2022 End: 07-10-[address] ANUPAM PEREIRA Facility:H1 Start: 07-09-2022 End: 07-10-2022 Encounter for preprocedural cardiovascular examination DR ANUPAM PEREIRA Facility:H1 Start: 06-20-2022 End: 06-21-[address] ANUPAM PEREIRA Facility:H1 Start: 06-04-2022 End: 06-04-[address] ANUPAM PEREIRA Facility:H1 Start: 05-23-2022 End: 05-24-[address] ANUPAM PEREIRA [facility] [employer] Other Start: 05-23-2022 Telephone encounter Anupam Pereira [facility] Start: 05-21-2022 End: 05-22-[address] ANUPAM PEREIRA [facility] [employer] Other Start: 05-21-2022 Office outpatient vi sit 15 minutes Anupam Pereira [facility] Start: 05-17-2022 End: 05-17-2022 ambulatory MD Anupam Pereira Work Phone: [facility] Work Phone: Start: 05-17-2022 End: 05-17-2022 Patient encounter procedure MD Anupam Preeira Work Phone: [facility]-Pacemaker Check Start: 05-07-2022 End: 05-07-[address] ANUPAM PEREIRA Facility:H1 Start: 04-23-2022 End: 04-24-[address] ANUPAM PEREIRA Facility:H1 Start: 04-17-2022 Office outpatient vi sit 25 minutes Anupam Pereira Work Phone: [facility] 250 DO Work Phone: Start: 04-17-[address] Lupe Rosado Facility: Start: 04-09-2022 End: 04-10-[address] ANUPAM PEREIRA Facility:H1 Start: 02-12-[address] Anupam Pereira Facility:[id number] Start: 02-12-2022 End: 02-12-2022 ambulatory MD Anupam Pereira Work Phone: [facility] Work Phone: Start: 02-12-2022 End: 02-12-2022 Patient encounter procedure MD Anupam Pereira Work Phone: [facility]-Pacemaker Check Start: 02-04-2022 End: 02-05-[address] ANUPAM PEREIRA Facility:H1 Start: 02-01-[address] Anupam Pereira Facility: Start: 11-07-2021 End: 11-07-2021 Patient encounter procedure MD Anupam Pereira Work Phone: [facility]-Pacemaker Check Start: 11-06-2021 End: 11-07-[address] LUPE ROSADO Facility:H1 Start: 10-09-2021 Office outpatient vi sit 25 minutes Anupam Pereira Work Phone: [facility] 250 DO Work Phone: Start: 09-07-2021 End: 09-08-[address] ANUPAM PEREIRA Facility:H1 Start: 08-30-2021 Chart Update Anupam Pereira Work Phone: [facility] 320 DO Work Phone: Start: 08-10-2021 Rx Renewal Anupam Pereira Work Phone: [facility] 250 DO Work Phone: Start: 08-09-2021 Postop follow up vis it related to original px Anupam Pereira Work Phone: [facility] 250 DO Work Phone: Start: 07-31-2021 End: 07-31-2021 Patient encounter procedure MD Anupam Pereira Work Phone: [facility] COVID Testing Start: 07-23-2021 AUDIT Anupam Pereira Work Phone: [facility] 3 DO Work Phone: Start: 07-18-2021 End: 07-18-2021 Patient encounter procedure MD Anupam Pereira Work Phone: [facility] Swab Start: 07-11-2021 Message Anupam Pereira Work Phone: [facility] 320 DO Work Phone: Start: 07-04-2021 End: 07-04-2021 Patient encounter procedure MD Anupam Pereira Work Phone: [facility]-Pacemaker Check Start: 06-29-2021 AUDIT Anupam Pereira Work Phone: [facility] 320 DO Work Phone: Start: 04-03-2021 Rx Renewal Anupam Pereira Work Phone: [facility] 320 DO Work Phone: Start: 07-01-2017 End: 07-02-2017 Ambulatory Haile Gonzalez Facility:[facility] Patient encounter status Anupam Pereira Work Phone: [facility] 320 DO Work Phone: End: 10-09-2021 Patient encounter status Anupam Pereira Work Phone: [facility] 250 DO Work Phone: Procedures Date Procedure Procedure Detail Performing Clinician Start: 08-03-2024 MRI of right wrist Ty Pereira MD Work Phone: Start: 08-03-2024 XR pre/post mri xray Leodan Pereira MD Work Phone: Start: 03-01-2024 Prgrmg eval implanta ble in person multi lead dfb Daphne Mayes MD Work Phone: Start: 08-29-2023 Basic metabolic 2000 panel - [...] DTaP/Tdap/Td Vaccines (2 - Td or Tdap) [facility] Start: 05-18-2025 End: 05-18-2025 Patient encounter procedure 05/18/2025 10:10 AM EST Office Visit [address] [place] [id number] Lupe Rosado MD [address] [place] [address] [facility] Start: 01-03-2025 Influenza vaccination Influenz a Vaccine (Season Ended) [facility] Start: 10-06-2024 End: 10-06-2024 Patient encounter procedure 10/06/2024 9:40 AM EDT Office Visit [address] [place] [phone] Lupe Rosado MD [address] [place], [place] [id number] [facility] Start: 08-28-2024 Creatinine measurement Creatinine Le lee ann [facility] Start: 08-28-2024 Potassium measurement Potassium Leve l [facility] Start: 07-12-[address] [facility] Start: 06-10-2024 End: 06-10-2024 Patient encounter procedure 06/10/2024 10:30 AM EST Office Visit [address] [place] [phone] Lupe Rosado MD [address] [place], [place] [id number] [facility] Start: 05-20-2024 End: 11-17-2024 Basic metabolic 2000 panel - Serum or Plasma Basic Metabolic Panel Lab Routine Cardiomyopathy, unspecified type (Multi) Chronic systolic congestive heart failure (Multi) Expected: 05/20/2024 (Approximate), Expires: 11/17/2024 [facility] Service Area Work Phone: Comment on above: Expected: 05/20/2024 (Approximate), Expires: 11/17/2024 Start: 04-06-2024 End: 04-06-2024 Patient encounter procedure 04/06/2024 11:00 AM EST Office Visit [facility] [address] [place] [address] Daphne Mayes MD [address] [facility] [address], [address] [place] [address] [facility] Start: 02-28-2024 End: 08-28-2024 Cardiac Device Check - In Clinic Cardiac Device Check - In Clinic Implantable Cardiac Device Routine ICD (implantable cardioverter-defibrilla tor) in place Expected: 02/28/2024 (Approximate), Expires: 08/28/2024 [facility] Service Area Work Phone: Comment on above: Expected: 02/28/2024 (Approximate), Expires: 08/28/2024 Start: 02-20-2024 End: 02-20-2024 Patient encounter procedure [facility] Start: 01-04-2024 COVID-19 Vaccine () COVID-19 Vaccine () [facility] Start: 01-04-2024 Influenza vaccination [facility] Start: 11-23-[address] [facility] Start: 11-18-2023 End: 11-18-2023 Patient encounter procedure 11/18/2023 10:40 AM EDT Office Visit [facility] [address] [facility] [address] [place] [address] Lupe Rosado MD [address] [place] [address] [facility] Start: 08-29-2023 End: 08-29-2023 Patient encounter procedure 08/29/2023 10:20 AM EDT Office Visit [facility] [address] [facility] [address] [place] [address] Daphne Mayes MD [address] [facility] [address], [address] [place] [address] [facility] Start: 04-17-2023 FUV, Provider: Lupe Rosado, Status: Pen, Time: 11:00 AM FUV, Provider: Lupe Rosado, Status: Pen, Time: 11:00 AM [facility] 250 DO Work Phone: Start: 04-17-2023 End: 04-17-2023 Patient encounter procedure 04/17/2023 11:00 AM EST Office Visit [facility] [address] [facility] [address] [place] [address] Lupe Rosado MD [address] [place] [address] [facility] Start: 03-11-2023 End: 02-26-2024 Basic metabolic 2000 panel - Serum or Plasma Basic metabolic panel Lab Routine Chronic systolic congestive heart failure (CMS/HCC) Expected: 03/11/2023 (Approximate), Expires: 02/26/2024 [facility] Service Area Work Phone: Comment on above: Expected: 03/11/2023 (Approximate), Expires: 02/26/2024 Start: 01-31-2023 FUV, Provider: Daphne Mayes, Status: Pen, Time: 2:00 PM FUV, Provider: Daphne Mayes, Status: Pen, Time: 2:00 PM [facility] 250 DO Work Phone: Start: 01-31-2023 Patient encounter procedure [id number], Provider: [facility],[id number], Status: Pen, Time: 1:00 PM [facility] 250 DO Work Phone: Start: 01-03-2023 COVID-19 Vaccine ( season) COVID-19 Vaccine ( season) [facility] Start: 01-03-2023 Influenza vaccination Influenza Vacc ine (#1) [facility] Start: 11-22-2022 ECHO, Provider: CAR[facility]AMP[facility] 01,[id number], Status: Pen, Time: 10:45 AM ECHO, Provider: KENDY [facility] 01,[id number], Status: Pen, Time: 10:45 AM -[facility] 250 DO Work Phone: Start: 10-09-2022 FUV, Provider: Lupe Rosado, Status: Pen, Time: 10:40 AM FUV, Provider: Lupe Rosado, Status: Pen, Time: 10:40 AM [facility] 250 DO Work Phone: Start: 08-02-2022 Creatinine measurement Creatinine Lucinda nance [facility] Start: 08-02-2022 Potassium measurement Potassium Francesca roberts [facility] Start: 07-17-2022 ECHO, Provider: CARMEN CAMPBELL [facility] 01,[id number], Status: Pen, Time: 9:45 AM ECHO, Provider: KENDY [facility] 01,[id number], Status: Pen, Time: 9:45 AM [facility] Work Phone: Start: 05-29-2022 ECHO, Provider: CARMEN CAMPBELL [facility]TR[facility] 01,[id number], Status: Pen, Time: 2:30 PM ECHO, Provider: KENDY [facility]TR[facility]OUND 01,[id number], Status: Pen, Time: 2:30 PM [facility] 250 DO Work Phone: Start: 04-17-2022 FUV, Provider: Lupe Rosado, Status: Pen, Time: 11:10 AM FUV, Provider: Lupe Rosado, Status: Pen, Time: 11:10 AM [facility] 250 DO Work Phone: Start: 02-01-2022 FUV, Provider: Daphne Mayes, Status: Pen, Time: 3:20 PM FUV, Provider: Daphne Mayes, Status: Pen, Time: 3:20 PM [facility] 250 DO Work Phone: Start: 02-01-2022 Patient encounter procedure FUVPRYANKR, Provider: [facility],[id number], Status: Pen, Time: 2:20 PM [facility] Work Phone: Start: 11-20-2021 NURSEVST, Provider: PRABHJOT WALDRON DIRECTOR OF CODING 1,[id number], Status: Pen, Time: 2:30 PM NURSEVST, Provider: PRABHJOT WALDRON DIRECTOR OF CODING 1,[id number], Status: Pen, Time: 2:30 PM [facility] 250 DO Work Phone: Start: 11-20-2021 ECHO, Provider: CARMEN CAMPBELL [facility] 01,[id number], Status: Pen, Time: 1:30 PM ECHO, Provider: KENDY [facility]TR[facility] 01,[id number], Status: Pen, Time: 1:30 PM -[facility] 250 DO Work Phone: Start: 10-09-2021 FUV, Provider: Lupe Rosado, Status: Pen, Time: 1:30 PM FUV, Provider: Lupe Rosado, Status: Pen, Time: 1:30 PM [facility] 320 DO Work Phone: Start: 08-28-2021 FUV, Provider: Daphne Mayes, Status: Pen, Time: 2:20 PM FUV, Provider: Daphne Mayes, Status: Pen, Time: 2:20 PM [facility] 320 DO Work Phone: Start: 08-28-2021 Patient encounter procedure FUVPACEMKR, Provider: [facility],EMCPACEMKR, Status: Pen, Time: 1:20 PM [facility] 320 DO Work Phone: Start: 08-02-2021 ICD CHANGE, Provider : [facility] CLOCK[facility]KER 4,[id number], Status: Pen, Time: 12:30 PM ICD CHANGE, Provider: [facility] 4,[id number], Status: Pen, Time: 12:30 PM -[facility] 3 DO Work Phone: Start: 08-02-2021 [facility], Provider: Daphne Mayes, Status: Pen, Time: 11:00 AM [facility], Provider: Daphne Mayes, Status: Pen, Time: 11:00 AM -[facility] 3 DO Work Phone: Start: 07-19-2021 ICD CHANGE, Provider : [facility] 4,[id number], Status: Pen, Time: 2:00 PM ICD CHANGE, Provider: [facility] 4,[id number], Status: Pen, Time: 2:00 PM [facility] 320 DO Work Phone: Start: 07-19-2021 [facility], Provider: Daphne Mayes, Status: Pen, Time: 11:00 AM [facility], Provider: Daphne Mayes, Status: Pen, Time: 11:00 AM -[facility] 320 DO Work Phone: Start: 07-17-2021 FUV, Provider: Daphne Mayes, Status: Pen, Time: 8:40 AM FUV, Provider: Daphne Mayes, Status: Pen, Time: 8:40 AM [facility] 320 DO Work Phone: Start: 07-17-2021 Patient encounter procedure FUVPACEMKR, Provider: [facility],EMCPACEMKR, Status: Pen, Time: 7:40 AM [facility] 320 DO Work Phone: Start: 2014 RSV High Risk: (Elde rly (60+) or Population) (1 - Risk 60-74 years 1-dose series) RSV High Risk: (Elderly (60+) or Population) (1 - Risk 60-74 years 1-dose series) [facility] Start: 2014 RSV patient s and/or patients aged 60+ years (1 - 1-dose 60+ series) RSV patients and/or patients aged 60+ years (1 - 1-dose 60+ series) [facility] Start: 2004 Zoster Vaccines (1 of 2) Zoste r Vaccines (1 of 2) [facility] Start: 1994 Screening for malign ant neoplasm of breast Mammogram [facility] Start: 1976 DTaP/Tdap/Td Vaccine s (1 - Tdap) DTaP/Tdap/Td Vaccines (1 - Tdap) [facility] Start: 1973 Pneumococcal vaccination Pneum ococcal Vaccine (1 of 2 - PCV) [facility] Start: 1972 Diabetes mellitus screening Diabetes Screening [facility] Start: 1972 Hepatitis C screening Hepatitis C Sc reening [facility] Start: 1960 Pneumococcal Vaccine : 65+ Years (1 - PCV) Pneumococcal Vaccine: 65+ Years (1 - PCV) [facility] Start: 1960 Pneumococcal Vaccine : 65+ Years (1 of 2 - PCV) Pneumococcal Vaccine: 65+ Years (1 of 2 - PCV) [facility] Start: 04-03-1955 COVID-19 Vaccine (#1) COVID-19 Vacci ne (#1) [facility] Start: 1954 Lipid panel Lipid Panel [facility] Start: 1954 Medicare Annual Well ness Visit Medicare Annual Wellness Visit (AWV) [facility] Start: 1954 Screening for malign ant neoplasm of colon [facility] Start: 1954 Screening for osteoporosis Bone Dens ity Scan [facility] End: 02-28-2024 Cardiac Device Check - Remote Cardiac Device Check - Remote Implantable Cardiac Device Routine ICD (implantable cardioverter-defibrilla tor) in place 52 Occurrences starting 08/29/2023 until 02/28/2024 [facility] Work Phone: Comment on above: 52 Occurrences start ing 08/29/2023 until 02/28/2024 [facility] Immunizations Immunization Date Immunization Notes Care Provider Fa scooby 12-25-2023 tetanus toxoid, redu liam diphtheria toxoid, and acellular pertussis vaccine, adsorbed Lupe Rosado MD Work Phone: [facility] Payers Date Payer Category Payer Medicare [id number] 2023 Self-pay [id number] 2023 Unknown [id number] 2022 Dual Eligibility Medicare/Medicaid Organization [id number] 2022 Private Health Insurance [employer] DUAL COMPLETE [facility] [employer] [id number] 2022-Present [address] [address] [place] [address] [id number] 2017 Medicare [id number] 2017 Medicaid [id number] 2017 Private Health Insurance [id number] 2017 Private Health Insurance [id number] [id number] 1959 Medicaid [id number] 1954 Unknown [id number] 2.840.1.727957.3.579.2 .1954 Unknown [id number] .840.1.450106.3.579.2 .59 1954 Unknown [id number] .840.1.033185.3.579.2 .59 1954 Unknown [id number] 2.16840.1.937071.3.579.2 .1954 Unknown [id number] 2.16840.1.508193.3.579.2 .593 1954 Unknown [id number] 2.16840.1.525710.3.579.2 .59 1954 Unknown [id number] 2.16.840.1.473649.3.579.2 .593 1954 Unknown [id number] 2.16.840.1.790096.3.579.2 .593 1954 Unknown [id number] 2.16.840.1.661076.3.579.2 .593 1954 Unknown [id number] 2.16.840.1.880966.3.579.2 .593 1954 Unknown [id number] 2.16.840.1.398364.3.579.2 .593 1954 Unknown [id number] 2.16.840.1.327055.3.579.2 .593 1954 Unknown [id number] 2.16840.1.527314.3.579.2 .593 1954 Unknown [id number] 2.16.840.1.708273.3.579.2 .1068 1954 Unknown [id number] 2.16.840.1.391448.3.579.2 .1068 1954 Unknown [id number] 2.16.840.1.578231.3.579.2 .1068 1954 Unknown [id number] 2.840.1.759915.3.579.2 .356 1954 Unknown [id number] 2.16.840.1.936525.3.579.2 .356 1954 Unknown [id number] 2.16.840.1.634656.3.579.2 .356 1954 Unknown [id number] 2.16.840.1.676271.3.579.2 .356 1954 Unknown [id number] 2.16.840.1.137709.3.579.2 .356 1954 Unknown [id number] 2.16.840.1.760944.3.579.2 .356 1954 Unknown [id number] 2.840.1.013933.3.579.2 .1245 1954 Unknown [id number] 2.16.840.1.242289.3.579.2 .1246 1954 Unknown [id number] 2.840.1.132262.3.579.2 .1286 1954 Unknown [id number] 2.840.1.585514.3.579.2 .124 1954 Unknown [id number] 2.840.1.610904.3.579.2 .124 1954 Unknown [id number] 2.840.1.627762.3.579.2 .1244 Medicare [id number] Medicare Medicare [id number] Private Health Insurance [id number] Unknown Unknown [id number] 2.840.1.228239.3.579.2 .531 Unknown [id number] .0.1.273091.3.579.2 .531 Unknown [id number] .0.1.362013.3.579.2 .531 Unknown [id number] .0.1.805513.3.579.2 .531 Unknown [id number] .0.1.594920.3.579.2 .531 Unknown [id number] 2.840.1.276581.3.579.2 .531 Social History Date Type Detail Facility Start: 10-09-2021 End: 10-06-2024 Caffeine use Caffeine use [facility] Comment on above: 1 1/2 daily (Pop); Start: 1955 Sex Assigned At Female F [facility] Start: 10-09-2021 End: 10-06-2024 Sex Assigned At [facility] Start: 02-25-2023 End: 05-31-2024 Tobacco smoking status NHIS Never smoked tobacco [facility] Work Phone: Start: 02-25-2023 Tobacco use and exposure Smokeless tobacco non-user [facility] Work Phone: Start: 1955 [facility]: Start: 02-15-2023 End: 10-06-2024 Exposure to SARS-CoV-2 (event) Not sure [facility] Start: 08-29-2023 End: 10-06-2024 Alcoholic beverage intake Lifetime non-drinker (finding) [facility] Work Phone: Start: 05-31-2024 End: 09-07-2024 Sex Female (finding) [facility] Functional Status Date Assessment Result Facility 10-09-2021 PHQ-9 [id number] Moderate (10-14) [facility] 250 DO Work Phone: Clinical Notes 08-02-2021 to 10-06-2024 Lupe Rosado MD - 10/06/2024 9:40 AM EDTPatient Instructions Note Date & Type Note Facility 10-06-2024 History of Present illness Narrative HPI Patient is in the office for follow-up for history of nonischemic cardiomyopathy with complete recovery. She does have history of AICD followed by electrophysiology and has history of obstructive sleep apnea and has not been utilizing CPAP machine. Since her last visit back in June 2024 there has been no cardiac events of noticed. Denies any orthopnea PND or AICD discharge. Continue to follow with electrophysiology at [facility]. Her weight remains above target and class II obesity BMI 38 kg/m . Lab data from May 2024 where available, it was reviewed and shared with the patient and indicated no significant abnormalities of concern. Last biventricular AICD analysis from 01/22/2025 was reviewed and shared with the patient with no concern noted. Assessment/recommendations: 1-previous history of nonischemic cardiopathy with ejection fraction now up to 65% by echocardiogram November 2022. Will continue combination of valsartan and Nebivolol which has been well-tolerated. Renal function is normal based on testing May 2024. 2-status post AICD, device is assessed by electrophysiology at [facility], last device check September 10, 2024 was available for review, it demonstrated no abnormalities and the data were shared with the patient 3-status post cardiac catheterization at [facility] was normal, this was back in 2018 4-obstructive sleep apnea supposed to be on CPAP machine, patient has not been utilizing the machine I explained to her that most of her symptoms of fatigue and lack of stamina are related to untreated sleep apnea, she will seriously consider opening the subject again and visit the sleep lab 6-class II obesity, recommended low-calorie diet and more regular exercise. ROS Generalized fatigue and lack of stamina Vitals: 10/06/24 1007 BP: 114/70 BP Location: Left arm Patient Position: Lying Pulse: 60 Weight: 88.5 kg (195 lb) Height: 1.524 m (5') Objective Physical [...] normal. Allergies Adhesive Current Medications Current Outpatient Medications Medication Instructions metFORMIN XR (GLUCOPHAGE-XR) 500 mg, 2 times daily (morning and late afternoon) nebivolol (BYSTOLIC) 2.5 mg, oral, Daily omeprazole (PriLOSEC) [address] capsule 1 capsule, Every morning sertraline (Zoloft) 50 mg tablet 1 tablet, 2 times daily valsartan (DIOVAN) 80 mg, oral, Daily Assessment/Plan 1. Chronic systolic congestive heart failure Follow Up In Cardiology Follow Up In Cardiology 2. Cardiomyopathy, unspecified type (Multi) 3. ICD (implantable cardioverter-defibrillator) in place 4. Obstructive sleep apnea syndrome in adult 5. Never smoked cigarettes 6. BMI 38.0-38.9,adult Scribe Attestation By signing my name below, I, Scarlet Deleon LPN , Rafal attest that this documentation has been prepared under the direction and in the presence of Lupe Rosado MD. Provider Attestation - Scribe documentation All medical record entries made by the Scribe were at my direction and personally dictated by me. I have reviewed the chart and agree that the record accurately reflects my personal performance of the history, physical exam, discussion and plan. documented in this encounter [facility] Work Phone: 10-06-2024 Instructions Scarlet Loomis LPN - 10/06/2024 9:40 AM EDT Please bring all medicines, vitamins, and herbal supplements with you when you come to the office. Prescriptions will not be filled unless you are compliant with your follow up appointments or have a follow up appointment scheduled as per instruction of your physician. Refills should be requested at the time of your visit. Pacemaker/Defibrillator follow up per routine BMI was above normal measurement. Current weight: 88.5 kg (195 lb) Weight change since last visit (-) denotes wt loss -2.4 lbs Weight loss needed to achieve BMI 25: 67.3 Lbs Weight loss needed to achieve BMI 30: 41.7 Lbs Provided instructions on dietary changes Provided instructions on exercise. Same medications Follow up documented in this encounter [facility] Work Phone: 06-14-2024 Evaluation note Diagnosis Onset Date Resolution Right wrist fracture acute Febr uary 2024 1:11pm Abnormal weight gain acute Ty h 2024 8:41am Depression acute July 26 8:41am Heart failure acute July 26, 2024 8:41am Impaired fasting glucose acute July 26, 2024 8:41am Obesity, Class II, BMI 35-39.9 acute July 26, 2024 8:41am Obstructive sleep apnea acute M arch 2024 8:41am Osteoarthritis acute July 8:41am [facility] Work Phone: 1([phone]) 451-300502-06-2025 History of Present illness Narrative* Lupe Rosado MD - 06/10/2024 10:30 AM EST Subjective Nya Bell is a 68 y.o. [...] fatigue. She has no orthopnea PND lower extremityedema and her weight remains above target with [...] AICD, device is assessed by electrophysiology at [facility] 3-cardiac catheterization 8 years ago at [facility] was normal 4-sleep apnea supposed to [...] By signing my name below, I, Jyotsna Darwin WILKERSON Scrsergio attest that this documentation has been prepared under the direction and in the presence of Lupe Rosado MD. Provider Attestation - Scribe documentation All medical record entries made by the Scribe were at my direction and personally dictated by me. Ihave reviewed the chart and agree that the record accurately reflects my personal performance of the history, physical exam, discussion and plan. [facility] Work Phone: 1(655) 109-760702-06-2025 Instructions* Patient Instructions* Jyotsna Thayer LPN - 06/10/2024 10:30 AM [...] dietary changes. Pacemaker/Defibrillator follow up per routine * Attachments The following attachments cannot be sent through Care Everywhere. * Heart Healthy Diet (Ecuadorean) [facility] Work Phone: 1(308) 479-443801-27-2025 Evaluation note* Diagnosis Onset Date Resolution Status Admit Date Depression acute May 31, 2024 11:18am Heart failure acute May 11:18am Impaired fasting glucose acute May 31, 2024 11:18am Obesity, Class II, BMI 35-39.9 acute May 31, 2024 11:18am Obstructive sleep apnea acute J anuary 2024 11:18am Osteoarthritis acute May 312024 11:18am [facility] Work Phone: 1(260) 752-587001-27-2025 Evaluation note* Diagnosis Onset Date Resolution Status Admit Date Depression acute May 31, 2024 11:18am Heart failure acute May 11:18am Impaired fasting glucose acute May 31, 2024 11:18am Obesity, Class II, BMI 35-39.9 acute May 31, 2024 11:18am Obstructive sleep apnea acute J anuary 2024 11:18am Osteoarthritis acute May 312024 11:18am Right wrist fracture acute 2024 1:11pm [facility] Work Phone: 1(331) 498-849401-27-2025 Evaluation note* Diagnosis Onset Date Resolution Status Admit Date Depression acute May 31, 2024 11:18am Heart failure acute May 11:18am Impaired fasting glucose acute May 31, 2024 11:18am Obesity, Class II, BMI 35-39.9 acute May 31, 2024 11:18am Obstructive sleep apnea acute J anuary 2024 11:18am Osteoarthritis acute May 312024 11:18am Right wrist fracture acute 2024 1:11pm Abnormal weight gain acute Ty 2024 8:41am Depression acute July 26 8:41am Heart failure acute July 26, 2024 8:41am Impaired fasting glucose acute July 26, 2024 8:41am Obesity, Class II, BMI 35-39.9 acute July 26, 2024 8:41am Obstructive sleep apnea acute 2024 8:41am Osteoarthritis acute July 8:41am [facility] Work Phone: 1(604) 400-362110-29-2024 Evaluation note* Diagnosis Onset Date Resolution Status Admit Date Depression acute March 02, 2024 10:47am [facility] Work Phone: 1([phone]) 309-353507-16-2024 History of Present illness Narrative* Lupe Rosado MD - 11/18/2023 10:40 AM EDT Subjective [...] AICD, device is assessed by electrophysiology at [facility] 3-cardiac catheterization 8 years ago at [facility] was normal 4-sleep apnea supposed to [...] direction and in the presence of Lupe Rosado MD. Provider Attestation - Scribe documentation All medical record entries made by the Scribe were at my direction and personally dictated by me. Ihave reviewed the chart and agree that the record accurately reflects my personal performance of the history, physical exam, discussion and plan. documented in this [facility] Work Phone: 1(193) 887-852607-16-2024 Instructions* Patient Instructions* Scarlet Loomis LPN - [...] 6 months with lab documented in this [facility] Work Phone: 1(322) 970-915604-26-2024 History of Present illness Narrative* Daphne Mayes [...] generator change for generator senescence in 2021. [employer] DTPA 2 QQ biventricular ICD. Performed device [...] dictation application being used. [facility] Work Phone: 1([phone]) 426-435904-26-2024 Instructions* Patient Instructions* Anel Samano RN - [...] time of your visit. Follow up with Lynn in 6 months with device check Continue remote checks at 3 and 9 months IANEL RN, AM SCRIBING FOR AND IN THE PRESENCE OF DR. DAPHNE MAYES MD, FACC, FACP, FHRS documented in [facility]Day[facility] Work Phone: [phone]) 911-562101-24-2024 Evaluation note* Encounter Date Diagnosis Assessment Notes Treatment Notes Treatment Clinical Notes May, Influenza A (ICD-10 - J10.1) resolved. discussed symptomatic care May, Acute bronchitis, unspecified organism (ICD-10 - J20.9) No further antibiotics or steroids indicated. Recommened conservative measures for help w laryngitis. 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 [employer] Other 01-08-2024 History of Present illness Narrative* Lupe Rosado MD - 05/12/2023 1:30 PM EST Subjective Nya Bell is a 67 y.o. female Chief Complaint Follow-up HPI Patient is in the office for follow-up for the problems noted below. She was in [place] recently and had flu syndrome which left her with significant bronchitis that was noted during today's visit. Her lab data from [place] was reviewed, cardiac enzymes were normal other [...] AICD, device is assessed by electrophysiology at [facility] 3-cardiac catheterization 8 years ago at [facility] was normal 4-sleep apnea supposed to [...] direction and in the presence of Lupe Rosado MD. [facility] Work Phone: 1([phone]) 504-556201-08-2024 Instructions* Patient Instructions* Africa Noland LPN - [...] follow up per routine [facility] Work Phone: 1([phone]) 541-739910-24-2023 History of Present illness Narrative* Lynn Jorgensen APRN-CERTIFIED HISTOLOGIC TECHNICIAN - 02/25/2023 10:00 AM EDT CARDIOLOGY OFFICE VISIT CHIEF COMPLAINT Chief Complaint Patient presents with Device Check Routine check up HISTORY OF PRESENT ILLNESS HPI The patient is a 67-year-old female who is followed for nonischemic cardiomyopathy with a left ventricular ejection fraction improved to 60 to 65% per 2D echocardiogram dated November 22, 2022, [place] [employer] class II- III, stage C [...] per 2D echocardiogram dated November 22, 2022, [place] [employer] class III, stage C heart failure. 2. Upgrade to an AV biventricular ICD on August 02, 2021 (Medtronic cobalt XT HF Quad SAGGER SOAK-D). Initial implant on January 25, 2015. 3. Valvular heart disease consisting of mild MR per 2D echocardiogram dated November 22, 2022. 4. Left heart catheterization in 2014 revealing normal coronaries at [facility]. 5. Obstructive sleep apnea, noncompliant with [...] furosemide. 2. Obtain ICD checks per the [facility] device clinic as scheduled. Patient was instructed to obtain an in clinic device check at [facility] approximately 2 weeks prior to the office visit with Dr. Mayes. 3. Follow-up in office with Dr. Mayes in 6 months or sooner if needed. 4. Follow-up in office with Dr. Rosado on April 17, 2023 at 11 AM as scheduled or sooner if needed. 5. Continue lifestyle modifications as discussed. Evaluation and note by Lynn Jorgensen CNP Please excuse any errors in grammar or translation related to this dictation. Voice recognition software was utilized to prepare this document. [facility] Work Phone: 1([phone]) 935-515510-24-2023 Instructions* Patient Instructions* ISAI Mora - 02/25/2023 10:00 AM EDT When taking the lasix, increase dietary potassium intake (orange juice, bananas, skin on potatoes) documented [facility] Work Phone: 1([phone]) 116-711709-07-2023 Evaluation note* Encounter Date Diagnosis Assessment Notes Treatment Notes Treatment Clinical Notes Jan, Bronchitis (ICD-10 - J40) Discussed diagnosis with patient. Patient to take antibiotic daily with food as prescribed. Finish entire course of antibiotic. Proair inhaler sent today for patient to use PRN cough/wheezing/short ness of breath. [id number] antipyretics as needed. Warning signs and symptoms reviewed with patient today. Patient to go immediately to the ER should she experience any of these. Patient to notify office should her symptoms persist and not improve. Patient verbalizes understanding and agrees to treatment plan. [employer] Other 08-29-2023 Evaluation note* Encounter Date Diagnosis Assessment Notes Treatment Notes Treatment Clinical Notes Dec, Bronchitis (ICD-10 - J40) Discussed diagnosis with patient. Finish entire course of antibiotic. Proair inhaler sent today for patient to use PRN cough/wheezing/short ness of breath. Tessalon Pearles ordered to take as needed for cough. Increase fluids and rest. [id number] antipyretics as needed. Warning signs and symptoms reviewed with patient today. Patient to go immediately to the ER should she experience any of these. Patient to notify office should her symptoms persist and not improve. Patient verbalizes understanding and agrees to treatment plan. [employer] Other 08-22-2023 Evaluation note* Encounter Date Diagnosis Assessment Notes Treatment Notes Treatment Clinical Notes Dec, Acute pain of right shoulder (ICD-10 - M25.511) Check xray. Add meds for pain relief and muscle relaxation. Will call pt w xray results. Dec, Chest congestion (ICD-10 - R09.89) Start w CXR and assess for pneumonia - will base treatment on CXR results later today. [employer] Other 02-16-2023 NoteCONSULTATION CONSULTATION DATE: 06/20/2022 HISTORY [...] be followed up in the office thereafter.[facility] [id number] NoteCONSULTATION CONSULTATION DATE: 05/23/2022 HISTORY OF PRESENT [...] be followed up in the clinic thereafter.[id number] Evaluation note* Encounter Date Diagnosis Assessment Notes Treatment Notes Treatment Clinical Notes May, Vitamin D deficiency (ICD-10 - E55.9) Digital Assent Other 01-17-2023 Evaluation note* Encounter Date Diagnosis [...] - I43) Reviewed notes from her specialist Digital Assent Other 12-06-2022 NoteCONSULTATION CONSULTATION DATE: 04/09/2022 CHIEF [...] was encouraged to follow up with the security guard with regards to her pacemaker. The patient is looking to schedule herself with regards to a physical and blood work by Dr. Pereira. CC: Anupam Pereira M.D.[facility] [id number] NotePROCEDURE: XR FINGER MIN 2 VIEWS COMPARISON: None. HISTORY: Acquired deformity of right finger FINDINGS: BONES:Persistent flexion of the fourth finger. No acute fracture or dislocation SOFT TISSUES:Soft tissue swelling EFFUSION:None visible. OTHER: Negative. IMPRESSION: Soft tissue swelling, no acute fracture Electronically authenticated by: CECY CHRISTIAN Date: 2022-02-05 07:14[facility]03-31-2022 NoteElectrophysiology Procedure TestingPlease click on the link to view the study images (Normal)[facility] 250 DO Work Phone: [phone] 407-460103-31-2022 NoteElectrophysiology Procedure Testing Please click on the link to view the study images (Normal)[facility] 250 DO Work Phone: 1(931) 297-913403-31-2022 NoteElectrophysiology Procedure Testing Please click on the link to view the study images (Normal)[facility] [place] 3 DO Work Phone: [phone]) 542-528003-31-2022 NoteElectrophysiology Procedure Testing Please click on the link to view the study images (Normal)[facility] [place] 320 DO Work Phone: Chinw complaint+Reason for visit Narrative* Chief Complaint headache, back pain, sore throat, ear pain Memory Concerns Reason for Visit COVID-19 [facility] Work Phone: Evaluation noteNo assessment information available [facility] Work Phone: Evaluation noteNo InformationNort pMDsoft Other Evaluation note* Diagnosis ICD (implantable cardioverter-defibrillator) in place- Primary Morbid obesity (CMS/HCC) Morbid obesity Chronic systolic congestive heart failure (CMS/HCC) Cardiomyopathy, unspecified type (CMS/HCC) Dyspnea on exertion Other dyspnea and respiratory abnormality Obstructive sleep apnea syndrome in adult Other fatigue documented in this encounter [facility] Work Phone: Evaluation note* Diagnosis [...] discuss treatment options documented in this encounter [facility] Work Phone: Evaluation note* Diagnosis Cardiomyopathy, unspecified type (CMS/HCC)- Primary ICD (implantable cardioverter-defibrillator) in place Obstructive sleep apnea syndrome in adult Class 2 obesity without serious comorbidity with body mass index (BMI) of 37.0 to 37.9 in adult, unspecified obesity type documented in this encounter [facility] Work Phone: Evaluation note* Diagnosis ICD (implantable cardioverter-defibrillator) in place documented in this encounter [facility] Work Phone: Evaluation note* Diagnosis Onset Date Resolution Status COVID-19 [facility] Work Phone: Evaluation note* Diagnosis Cardiomyopathy, unspecified type (Multi) Chronic systolic congestive heart failure (Multi) ICD (implantable cardioverter-defibrillator) in place Obstructive sleep apnea syndrome in adult Fatigue, unspecified type Never smoked cigarettes Class 2 obesity without serious comorbidity with body mass index (BMI) of 37.0 to 37.9 in adult, unspecified obesity type documented in this encounter [facility] Work Phone: Evaluation note* Diagnosis ICD (implantable cardioverter-defibrillator) in place- Primary Chronic systolic congestive heart failure Fatigue, unspecified type Obstructive sleep apnea syndrome in adult Never smoked cigarettes BMI 38.0-38.9,adult Class 2 obesity documented in this encounter [facility] Work Phone: Evaluation note* Diagnosis Nonischemic cardiomyopathy (Multi)- Primary Other primary cardiomyopathies ICD (implantable cardioverter-defibrillator) in place Obstructive sleep apnea syndrome in adult Never smoked cigarettes BMI 38.0-38.9,adult Class 2 obesity Other fatigue documented in this encounter [facility] Work Phone: History general Narrative [...] ABLATION 06/2016 Hospitalization History See Sx Hx Digital Assent Other History general Narrative - Reported* Type [...] Hospitalization History See Sx Hx Hospitalization History [facility] 06/03/22 Digital Assent Other Reason for referral (narrative)* Consultation (Routine) - Authorized Specialty Diagnoses / Procedures Referred By Talha t Referred To Contact Cardiology Diagnoses ICD (implantable cardioverter-defibrillator ) in place Procedures Follow Up In Cardiology Lynn Jorgensen, DIANETICIST-PAMELA [address] [facility], [address] [address] Daphne Mayes MD [address] [facility], [address] [address] Referral ID Status Reason Start Date Expiration Date V isits Requested Visits Authorized [id number] Authorized 02/25/2023 02/25/2024 1 1 [facility] Work Phone: Reason for referral (narrative)* Consultation (Routine) - Authorized Specialty Diagnoses / Procedures Referred By Contac t Referred To Contact Cardiology Diagnoses Cardiomyopathy, unspecified type (CMS/HCC) Procedures Follow Up In Cardiology Lupe Rosado MD [address], [place] [place] [address] Lupe Rosado MD [address] [place] [address] 2, [address] [address] Referral ID Status Reason Start Date Expiration Date V isits Requested Visits Authorized [id number] Authorized 05/12/2023 05/11/2024 1 1 [facility] Work Phone: Rehlxy for referral (narrative)* Consultation (Routine) - Authorized Specialty Diagnoses / Procedures Referred By Contac t Referred To Contact Cardiology Diagnoses Chronic systolic congestive heart failure (Multi) Procedures Follow Up In Cardiology Lupe Rosado MD [address], [address] [address] Lupe Rosado MD [address] [place] [address] 2, [address] [address] Referral ID Status Reason Start Date Expiration Date V isits Requested Visits Authorized [id number] Authorized 11/18/2023 11/17/2024 1 1 [facility] Work Phone: Reason for referral (narrative)No reason for referral information [facility] Work Phone: Reason for visit Narrative* Imaging (Routine) - Pending Review Specialty Diagnoses / Procedures Referred By Talha t Referred To Contact Cardiology Diagnoses ICD (implantable cardioverter-defibrillator) in place Procedures Cardiac Device Check - In Clinic Daphne Mayes MD [address] [facility] [address], [address] [place] [address] Phone: tel: fax: Referral ID Status Reason Start Date Expiration Date Visits Requested Visits Authorized [id number] Pending Review Perform Procedure 08/29/2023 08/28/2024 52 52 [facility] Work Phone: Summary Purpose Family History Unknown [...] Complaint cardiomyopathy Chief Complaint Out Of [facility] defib machine issues Chief Complaint defib machine issues headache, back pain, sore throat, ear pain Chief Complaint headache, back pain, sore throat, ear pain Memory Concerns cardiomyopathy CC Adult Risk Stratification Reason for Visit COVID-19 Chief Complaint Admit Date Memory Concerns March 02, 2024 1 0:47am cardiomyopathy March 03, 2024 1 0:19am CC Adult Risk Stratification February 12:02pm [facility] May 31 11:18am Reason for Visit Admit Date Depression March 02, 2024 1 0:47am Chief Complaint Admit Date [facility] May 31 11:18am defib machine issues June 03, 2024 2:28pm Reason for Visit Admit Date Depression May 31, 2024 1 1:18am Heart failure May 31, 2024 1 1:18am Impaired fasting glucose May 31 025 11:18am Obesity, Class II, BMI 35-39.9 May 062024 11:18am Obstructive sleep apnea May 31 11:18am Osteoarthritis May 31, 2024 1 1:18am Chief Complaint Admit Date [facility] May 31 11:18am defib machine issues June 03, 2024 2:28pm Amb Documentation June 08, 2024 1 :31pm [facility] ER f/u, broken wrist right June 14, 2024 1:11pm Chief Complaint Admit Date [facility] May 31 11:18am defib machine issues June 03, 2024 2:28pm Amb Documentation June 08, 2024 1 :31pm [facility] ER f/u, broken wrist right June 14, 2024 1:11pm R73.01 I50.9 I48.91 M17.10 E66.812 F33.4 1 M1.July 12, 2024 2:11pm Reason for Visit Admit Date Depression May 31, 2024 1 1:18am Heart failure May 31, 2024 1 1:18am Impaired fasting glucose May 31 025 11:18am Obesity, Class II, BMI 35-39.9 May 062024 11:18am Obstructive sleep apnea May 31 11:18am Osteoarthritis May 31, 2024 1 1:18am Right wrist fracture June 14, 2024 1:11pm Reason for Visit Admit Date Depression May 31, 2024 1 1:18am Heart failure May 31, 2024 1 1:18am Impaired fasting glucose May 31 11:18am Obesity, Class II, BMI 35-39.9 May 062024 11:18am Obstructive sleep apnea May 31 11:18am Osteoarthritis May 31, 2024 1 1:18am Right wrist fracture June 14, 2024 1:11pm Abnormal weight gain July 26, 2024 8: 41am Depression July 26, 2024 8:4 1am Heart failure July 26, 2024 8:4 1am Impaired fasting glucose July 26 8:41am Obesity, Class II, BMI 35-39.9 July 8:41am Obstructive sleep apnea July 26, 2024 8:41am Osteoarthritis July 26, 2024 8:4 1am Chief Complaint Admit Date [facility] May 31 11:18am defib machine issues June 03, 2024 2:28pm Amb Documentation June 08, 2024 1 :31pm [facility] ER f/u, broken wrist right June 14, 2024 1:11pm R73.01 I50.9 I48.91 M17.10 E66.812 F33.4 1 M19.July 12, 2024 2:11pm S52.591A August 03, 2024 7:37 am Chief Complaint Admit Date [facility] ER f/u, broken wrist right June 14, 2024 1:11pm R73.01 I50.9 I48.91 M17.10 E66.812 F33.4 1 M19.00 July 12, 2024 2:11pm S52.591A August 03, 2024 7:37 am cardiomyopathy September 03, 2024 1:00pm cardiomyopathy September 03, 2024 2:42pm Reason for Visit Admit Date Right wrist fracture June 14, 2024 1:11pm Abnormal weight gain July 26, 2024 8: 41am Depression July 26, 2024 8:4 1am Heart failure July 26, 2024 8:4 1am Impaired fasting glucose July 26 8:41am Obesity, Class II, BMI 35-39.9 July 8:41am Obstructive sleep apnea July 26, 2024 8:41am Osteoarthritis July 26, 2024 8:4 1am Chief Complaint Admit Date defib machine issues December 09, 2024 1: 01pm Chief Complaint Admit Date defib machine issues December 09, 2024 1: 01pm Phlegm w Blood, Bloody Nose December 31, 2024 1:03pm Chief Complaint Patient here S/P gen change. Done by Dr. Mayes at [facility] on 07/19/2021. Dr. Gaudencio Mendoza [...] AICD, device is assessed by electrophysiology at [facility], had recent battery change with no complications. * 3 cardiac catheterization 7 years ago at [facility] was normal * 4 extreme fatigue [...] AICD, device is assessed by electrophysiology at [facility], had recent battery change with no complications. * 3 cardiac catheterization 7 years ago at [facility] was normal * 4 extreme fatigue [...] AICD, device is assessed by electrophysiology at [facility], had recent battery change with no complications. * 3 cardiac catheterization 7 years ago at [facility] was normal * 4 extreme fatigue [...] AICD, device is assessed by electrophysiology at [facility] * 3 cardiac catheterization 7 years ago at [facility] was normal * 4 extreme fatigue [...] AICD, device is assessed by electrophysiology at [facility] * 3 cardiac catheterization 7 years ago at [facility] was normal * 4 extreme fatigue [...] scheduled. We will arrange for that at [facility]. Her weight is unchanged from previously [...] AICD, device is assessed by electrophysiology at [facility] * 3 cardiac catheterization 7 years ago at [facility] was normal * 4 fatigue of [...] - Remote Daphne Mayes MD [address] [facility], [address] [place] [address] Referral ID Status Reason Start Date Expiration Date Visits Requested Visits Authorized [id number] Pending Review Perform Procedure 08/29/2023 08/28/2024 52 52 Specialty Diagnoses / Procedures Referred By Contac t Referred To Contact Cardiology Diagnoses ICD (implantable cardioverter-defibrillator) in place Procedures Cardiac Device Check - In Clinic Daphne Mayes MD [address] [facility], [facility] [address] [place] [address] Referral ID Status Reason Start Date Expiration Date Visits Requested Visits Authorized [id number] Pending Review Perform Procedure 08/29/2023 08/28/2024 52 52 Specialty Diagnoses / Procedures Referred By Contac t Referred To Contact Diagnoses ICD (implantable cardioverter-defibrillator) in place Procedures ECG 12 lead (Clinic Performed) Daphne Mayes MD [address] [facility], [facility] [address] [place] [address] Referral ID Status Reason Start Date Expiration Date V isits Requested Visits Authorized [id number] Authorized 08/29/2023 08/28/2024 1 1 Additional Source Comments INFORMATION SOURCE (unrecogn ized section and content) DATE CREATED AUTHOR 10/24/2017 [facility] DATE CREATED AUTHOR AUTHOR'S ORGANIZ ATION 11/13/2018 [facility] DATE CREATED AUTHOR AUTHOR'S ORGANIZ ATION 08/02/2020 [facility] DATE CREATED AUTHOR AUTHOR'S ORGANIZ ATION 08/22/2022 [facility] DATE CREATED AUTHOR AUTHOR'S ORGANIZ ATION 10/14/2022 [facility] DATE CREATED AUTHOR AUTHOR'S ORGANIZ ATION 11/23/2022 [facility] DATE CREATED AUTHOR AUTHOR'S ORGANIZ ATION 12/10/2022 [facility] DATE CREATED AUTHOR AUTHOR'S ORGANIZ ATION 09/03/2023 [facility] DATE CREATED AUTHOR AUTHOR'S ORGANIZ ATION 03/05/2024 [facility] DATE CREATED AUTHOR AUTHOR'S ORGANIZ ATION 05/23/[address] [facility] DATE CREATED AUTHOR AUTHOR'S ORGANIZ ATION 10/07/2024 [facility] DATE CREATED AUTHOR AUTHOR'S ORGANIZ ATION 12/18/2024 [facility] Care Teams (unrecognized sec tion and content) Team Status: Active Member Role Status Dates Anupam Pereira MD Primary Care Provider Active Team Status: Active Member Role Status Scott Pereira MD Primary Care Provider Active Start: December 09, 2024 Lupe Rosado MD Other Provider Active Start: December 09, 2024 Chasity Harper MD Attending Provider Active Start: December 09, 2024 Team Status: Inactive Member Role Status Dates Anupam Pereira MD Primary Care Provide r, Attending Provider Active Start: June 14, 2024 End: June 14, 2024 Team Status: Inactive Member Role Status Dates Anupam Pereira MD Primary Care Provider Active Start: July 12, 2024 End: July 12, 2024 Rosmearie Lea APRN Attending Provider Active Start: July 12, 2024 End: July 12, 2024 Team Status: Inactive Member Role Status Scott Pereira MD Primary Care Provider Active Start: July 26, 2024 End: July 26, 2024 Rosemarie Lea APRN Attending Provider Active Start: July 26, 2024 End: July 26, 2024 Team Status: Inactive Member Role Status Scott Pereira MD Primary Care Provider Active Start: August 03, 2024 End: August 03, 2024 Maren Aden Attending Provider Active Start: August 03, 2024 End: August 03, 2024 Team Status: Active Member Role Status Scott Pereira MD Primary Care Provider Active Start: September 03, 2024 Lupe Rosado MD Other Provider Active Start: September 03, 2024 Chasity Harper MD Attending Provider Active Start: September 03, 2024 Team Status: Inactive Member Role Status Scott Pereira MD Primary Care Provider Active Start: September 03, 2024 End: September 03, 2024 Lupe Rosado MD Attending Provider Active St art: September 03, 2024 End: September 03, 2024 Team Status: Active Member Role Status Scott Pereira MD Primary Care Provide r, Attending Provider Active Start: May 20, 2024 Team Status: Inactive Member Role Status Scott Pereira MD Primary Care Provider Active Start: May 31, 2024 End: May 31, 2024 Rosemarie Lea APRN Attending Provider Active Start: May 31, 2024 End: May 31, 2024 Team Status: Inactive Member Role Status Scott Pereira , MD Primary Care Provider Active Start: June [...] Active Daphne Mayes MD Attending Provider Active Thread Inspector Relationship Specialty Start Date End Date Anupam Pereira MD [address] [place] [address] PCP - General 09/30/19 Team Status: Inactive Member Role Status Dates Anupam Pereira MD Attending Provider Active St art: May 08, 2023 End: May 08, 2023 Team Status: Inactive Member Role Status Dates Anupam Pereira MD Primary Care Provider Active Start: May 28, 2023 End: May 28, 2023 Gaudencio Mendoza MD Attending Provider Active Start: May 28, 2023 End: May 28, 2023 Thread Inspector Relationship Specialty Start Date End Date Anupam Pereira MD [address] [place] [address] PCP - General Family Medicine 04/16/23 Lynn Jorgensen APRN-CERTIFIED HISTOLOGIC TECHNICIAN [address] [facility] [address], [address] [place] [address] Nurse Practitioner Cardiology 03/07/23 Thread Inspector Relationship Specialty Start Date End Date Anupam Pereira MD [address] [place] [address] [place] [address] PCP - General Family Medicine 04/16/23 Lynn Jorgensen, DIANETICIST-CERTIFIED HISTOLOGIC TECHNICIAN [address] [place] [address], [facility] [address] [place] [address] Nurse Practitioner Cardiology 03/07/23 Team Status: Inactive Member Role Status Dates Anupam Pereira MD Primary Care Provider Active Start: December 02, 2023 End: December 02, 2023 Gaudencio Mendoza MD Attending Provider Active Start: December 02, 2023 End: December 02, 2023 Thread Inspector Relationship Specialty Start Date End Date Anupam Pereira MD [address] [place] [address] PCP - General Family Medicine 04/16/23 Lynn Jorgensen DIANETICIST-CERTIFIED HISTOLOGIC TECHNICIAN [address] [place] [address], [address] [address] Nurse Practitioner Cardiology 03/07/23 Team Status: Active Member Role Status Dates Anupam Pereira MD Primary Care Provider Active Start: March 03, 2024 Lupe Rosado MD Other Provider Active Start: March 03, 2024 Chasity Harper MD Attending Provider Active Start: March 03, 2024 Team Status: Active Member Role Status Dates Anupam Pereira MD Primary Care Provide r, Attending Provider Active Start: March 03, 2024 Thread Inspector Relationship Specialty Start Date End Date Anupam Pereira MD [address] [place] [address] PCP - General Family Medicine 04/16/23 Lynn Jorgensen, DIANETICIST-CERTIFIED HISTOLOGIC TECHNICIAN [address] [facility], [facility] [address] [place] [address] Nurse Practitioner Cardiology 03/07/23 Thread Inspector Relationship Specialty Start Date End Date Anupam Pereria MD [address] [place] [address] PCP - General Family Medicine 04/16/23 Daphne Mayes MD [address] [facility], [facility] [address] [place] [address] Portrait Painter Electrophysiology 03/24/24 Team Status: Active Member Role Status Dates Anupam Pereira MD Primary Care Provider Active Start: June 08, 2024 Solange Isbell CMA Attending Provider Active Start: June 08, 2024 Team Status: Active Member Role Status Dates Anupam Pereira MD Primary Care Provider Active Start: June 03, 2024 Chasity Harper MD Attending Provid er, Other Provider Active Start: June 03, 2024 Thread Inspector Relationship Specialty Start Date End Date Anupam Pereira MD [address] [place] [address] PCP - General Family Medicine 04/16/23 Daphne Mayes MD [address] [facility], [facility] [address] [place] [address] Portrait Painter Electrophysiology 03/24/24 Team Status: Inactive Member Role Status Dates Anupam Pereira MD Primary Care Provider Active Start: December 31, 2024 End: December 31, 2024 Anupam Pereira MD Attending Provider Active St art: December 31, 2024 End: December 31, 2024 Goals (unrecognized section and content) Goals [...] (unrecogniz ed section and content) Reason Comments Follow-up 4 month follow up IC D (implantable cardioverter-defibrillator) in place Specialty Diagnoses / Procedures Referred By Talha t Referred To Contact Cardiology Diagnoses Chronic systolic congestive heart failure Procedures Follow Up In Cardiology Lupe Rosado MD [address] [address] Phone: tel: fax: Lupe Rosado MD [address] [place] [address] Phone: tel: fax: Referral ID Status Reason Start Date Expiration Date V isits Requested Visits Authorized [id number] Authorized 06/10/2024 06/10/2025 1 1 Reason Comments Device Check Routine check up Reason Comments Follow-up 6 month Specialty Diagnoses / Procedures Referred By Contac t Referred To Contact Cardiology Diagnoses ICD (implantable cardioverter-defibrillator ) in place Procedures Follow Up In Cardiology Lynn Jorgensen, DIANETICIST-PAMELA [address] [address] Daphne Mayes MD [address] [address] Referral ID Status Reason Start Date Expiration Date V isits Requested Visits Authorized [id number] Authorized 02/25/2023 02/25/2024 1 1 Reason Comments Follow-up 6 month Reason Comments Follow-up 6 months Specialty Diagnoses / Procedures Referred By Talha t Referred To Contact Cardiology Diagnoses Cardiomyopathy, unspecified type (Multi) Procedures Follow Up In Cardiology Lupe Rosado MD [address], [address] [address] Lupe Rosado MD [address], [facility] [address] [place] [address] Referral ID Status Reason Start Date Expiration Date V isits Requested Visits Authorized [id number] Authorized 05/12/2023 05/11/2024 1 1 Referral ID Status Reason Start Date Expiration Date V isits Requested Visits Authorized [id number] Authorized 11/18/2023 11/17/2024 1 1 FOR RECORDS [...] BE BASED ON THE PRIMARY CLINICAL RECORDS. [facility] [employer] provides no warranty or guarantee of the accuracy or completeness of information in this document.
[2025-02-04 15:31] LABS: Hematocrit 38.2 % (36.0-48.0); Hemoglobin 12.5 g/dL (12.0-16.0); Immature Granulocytes Abs Auto 0.03 10^3/uL (0.00-0.03); Immature Granulocytes Pct Auto 0.4 % (0.0-0.5); Lymphocytes Absolute Auto 1.8 10^3/uL (1.2-3.8); Mean Corpuscular HGB Conc 32.7 g/dL (29.9-35.2); Mean Corpuscular Hemoglobin 28.3 pg (26.7-34.0); Mean Corpuscular Volume 86.6 fL (81.0-99.0); Platelet Count 322 10^3/uL (150-450); Red Blood Count 4.41 10^6/uL (4.20-5.40); White Blood Count 7.4 10^3/uL (4.0-11.0)
[2025-02-04 15:34] LABS: Glucose Urine UA NEGATIVE (NEGATIVE)
[2025-02-04 15:51] LABS: Anion Gap 11.7; Blood Urea Nitrogen 17.0 mg/dL (7.0-18.0); Calcium 9.3 mg/dL (8.5-10.1); Carbon Dioxide 30.2 mmol/L (21.0-32.0); Chloride 105 mmol/L (98-107); Estimated GFR (African America >60 (>=60 mL/min/1.73m^2); Estimated GFR (Non-African Ame >60 (>=60 mL/min/1.73m^2); Glucose 95 mg/dL (74-106); Potassium 3.9 mmol/L (3.5-5.1); Sodium 143 mmol/L (136-145)
== END 2025-02-04 15:03 | disposition home or self-care (01) ==
LOC: LAB 15:12
PROVIDERS: PCP Family Medicine; Visit Provider Family Medicine
DX: M54.50 Low back pain, unspecified (principal)
CPT/HCPCS: 36415; 80048; 81003; 85025

== ENCOUNTER 2025-02-15 11:21 | Emergency (ER) | payer MEDICARE, MEDICAID, SELFPAY ==
--- OUTSIDE RECORDS SUMMARY | 2024-01-07 10:00 | XMS_ITS ---
Author Organization [facility] vices Address [address] [place] [phone] Care Team Providers Care Supply Chain Technician Name Role Phone Saloni Rowan Unavailable [phone] REASON FOR VISIT Try In Medications Medication SIG (Take, Route, Fr equency, Duration) Notes Start Date End Date Status Carvedilol Active Omeprazole Active Entresto Active Sertraline HCl 100 MG TAKE 1 TABLET BY M OUTH EVERY DAY Oral; Duration: 90 Days Acti ve Social History Sex Assigned At : Social History Observation Description Sex Assigned At Female Encounters Encounter Location Date Provider Diagnosis [facility] [address] [phone] 01/07/2024 Saloni Rowan Plan Of Treatment No Information Progress Notes * Chantelle BELL LDOB:1955 (69 yo F)Acc No.[id number]:01/07/2024 Dental Note Patient: Chantelle LAKE Provider: Adrienne Rowan DDS :1955 A ge:68 Y S ex:Female Date:01/07/2024 Address:[address] [place], [place] [phone] Subjective: * Chief Complaints: * 1 . Try In. * Medical History: * Medications: T aking Carvedilol , Taking Omeprazole , Taking Entresto , Taking Sertraline HCl 100 MG Tablet TAKE 1 TABLET BY MOUTH EVERY DAY Oral Objective: * Vitals: Assessment: Plan: * Treatment: * Billing Information: * Visit Code: * Procedure Codes: * Electronic signature of Danelle Rowan DDS on 02/15/2025 at 11:30 AM EDT Sign off status: Pending * Provider: Adrienne Rowan DDS Date: 0 01/07/2024 Generated for Cooper batres/Amparo/Torito on: 1 11:30 AM EDT
--- OUTSIDE RECORDS SUMMARY | 2024-08-09 07:40 | XMS_ITS ---
Author Organization [facility] Address [address] [place] [address] Care Team Providers Care Counseling Aide Name Role Phone Norma Tapia M.D. Primary Care Provider Unavail able Clint Aden Unavailable [phone] Chloe Jacobo Unavailable REASON FOR VISIT RIGHT STYLOID FX Encounters Encounter Location Date Provider Diagnosis [facility] Office [address] [place] [address] [place] [address] 08/09/2024 [facility] Acute pain of right wrist M25.531 and [...] 2 months as she does live in [place] part-time with her significant other. Right EPL [...] 2 months as she does live in [place] part-time with her significant other. Pending Test Test Name Order Date SCC- PT/OT EVAL AND TREAT 3X/WEEK FOR 6 WEEKS 08/09/2024 Next Appt Details Follow Up: 9 WEEKS, Reason: Progress Notes * NYA REDMONDDOB:1955 ([age] yo F)Acc No.[id number]:08/09/2024 Patient: NYA LAKE Provider: JOSIAS Altamirano :1955 A ge:68 Y S ex:Female Date:08/09/2024 Address:[address] [place] [address] Pcp:Norma Tapia M.D. Subjective: * Chief Complaints: [...] right wrist without contrast was reviewed from [facility] from 08/03/24 Impression No linear fracture. [...] 2 months as she does live in [place] part-time with her significant other. * Preventive [...] Electronic signature of Angel Jacobo PA-C on 02/15/2025 at 11:31 AM EDT Sign off status: Pending * Provider: JOSIAS Altamirano Date: 0 08/09/2024 Generated for [place] batres/Faxing/eTransmitting on: 1 11:31 AM EDT History and Physical Notes * [...] right wrist without contrast was reviewed from [facility] from 08/03/24 Impression No linear fracture. Subtle carpal distal radius bony edema. Likely related to degenerative change and possible bony contusion. Degenerative central fibrocartilage tendon with small amount effusion in the distal radial ulnar joint. No traumatic tear. Findings of tenosynovitis/partial tear of the extensor pollicis longus at Disha's tubercle.
--- OUTSIDE RECORDS SUMMARY | 2024-10-11 07:40 | XMS_ITS ---
Author Organization [facility] Address [address] [place] [address] Care Team Providers Care Application Packaging Specialist Name Role Phone Norma Tapia M.D. Primary Care Provider Clint Bhardwaj [facility] [phone] REASON FOR VISIT RIGHT WRIST PAIN, RIGHT WRIST CONTUSION Encounters Encounter Location Date Provider Diagnosis [facility] [address] [place] [address] [place] [address] 10/11/2024 Clint Aden Plan Of Treatment No Information Progress Notes * NYA REDMONDDOB:1955 ([age] yo F)Acc No.[id number]:10/11/2024 Patient: NYA LAKE Provider: Augusto Aden MD :1955 A ge:69 Y S ex:Female Date:10/11/2024 Address:[address] [place], [place] [address] Pcp:Norma Tapia M.D. Subjective: * Chief Complaints: * 1 . RIGHT WRIST PAIN, RIGHT WRIST CONTUSION. * Medical History: Objective: * Vitals: Assessment: Plan: * Treatment: Forms: * Images: * Electronic signature of Henry Aden MD on 02/15/2025 at 11:30 AM EDT Sign off status: Pending * Provider: Augusto Aden MD Date: 0 10/11/2024 Generated for Printi ng/Faxing/eTransmitting on: 1 11:30 AM EDT
--- OUTSIDE RECORDS SUMMARY | 2025-02-04 06:47 | XMS_ITS | Continuity of Care Document ---
Author Organization [facility] Address [address] [place] [address] Phone Care Team Providers Care Pan Shaker Name Role Phone Norma Tapia MD Primary Care Provider Lupe Boswell MD Other Provider Chasity Harper MD Attending Provider [phone] Norma Tapia MD Attending Provider Care Teams Patient Care Team Team Status: Active Member Role Status Dates Norma Tapia MD Primary Care Provider Active Visit Care Team Team Status: Active Member Role Status Dates Norma Tapia MD Primary Care Provider Active Start: December 09, 2024 Lupe Boswell MD Other Provider Active Start: December 09, 2024 Chasity Harper MD Attending Provider Active Start: December 09, 2024 Visit Care Team Team Status: Inactive Member Role Status Dates Norma Tapia MD Primary Care Provider Active Start: December 31, 2024 End: December 31, 2024 Norma Tapia MD Attending Provider Active St art: December 31, 2024 End: December 31, 2024 Patient Care Team Team Status: Inactive Member Role Status Dates Norma Tapia MD Primary Care Provider Active Start: February 04, 2025 End: February 04, 2025 Norma Tapia MD Attending Provider Active St art: February 04, 2025 End: February 04, 2025 Chief Complaint and Reason for Visit Chief Complaint Admit Date defib machine issues December 09, 2024 1: 01pm Phlegm w Blood, Bloody Nose December 31, 2024 1:03pm Back Pain February 04, 2025 10 :02am Reason for Visit Admit Date Bronchitis December 31, 2024 1: 03pm Heart failure December 31, 2024 1: 03pm Costovertebral (angle) tenderness, bilat eral February 04, 2025 10:02am Lumbar pain February 04, 2025 10 :02am Urinary frequency February 04, 2025 10 :02am Allergies, Adverse Reactions, Alerts Allergen Type Severity Reaction Last Updated Verified Status adhesive tape Allergy Moderate Rash February 04, 2025 10:19am Yes Active Social History Smoking Status Status Start Date End Date Date of Observa tion Never smoked tobacco (finding) May 31, 2024 11:42am Observation Status Observation Response Date of Response Legal Sex Female (finding) Sex Assigned At Female 1955 Family History Relationship Condition Age at Onset Recorded Date/T amparo Not Specified Cerebrovascular accident (CVA) Unknown father Unknown Heart disease Unknown Diabetes mellitus Unknown Myocardial infarction Unknown mother Unknown Diabetes mellitus Unknown paternal grandfather Unknown Diabetes mellitus Unknown paternal grandmother Unknown Diabetes mellitus Unknown maternal grandfather Myocardial infarction Unknown Unknown brother Diabetes mellitus Unknown Problems Active Problems Medical Problem Onset Date Status Comments COVID-19 Unknown Active Costovertebral (angle) tenderness, bilateral Unknown Active Obstructive sleep apnea Unknown Active Heart failure Unknown Active Urinary frequency Unknown Active Abnormal weight gain Unknown Active Atrial fibrillation Unknown Active Depression Unknown Active Impaired fasting glucose Unknown Active Obesity, Class II, BMI 35-39.9 Unknown Active Osteoarthritis Unknown Active Arthritis of knee Unknown Active bilateral Lumbar pain Unknown Active Bronchitis Unknown Active Inactive/Resolved Problems Medical Problem Onset Date Status Comments Right wrist fracture Unknown Resolved Medications Medication Status Dose Units Route Directions Qty Days St art Date Stop Date End Date Instructions Adherence Albuterol Sulfate 90 mcg/actuati on HFA aerosol inhaler Discont inued 2 PUFF INHALA TION EVERY 4-6 HOURS as needed for shortness of breath or wheezing 6.7 2023 1:00am Augus t 2023 2:01p m Sertraline 100 mg tablet Discont inued 100 MG PO Daily 90 2023 1:00am Octob er 2023 3:49p m Sertraline 100 mg tablet Discont inued 0 .ROUTE .COMPLEX 90 Octobe r 2023 3:49pm Octob er 2023 11:24 am TAKE 1 TABLET BY MOUTH EVERY DAY Omeprazole 20 mg capsule,del ayed release(DR/ EC) Discont inued 0 .ROUTE .COMPLEX [facility] er 2023 11:49a m July 06, 2024 11:42 am TAKE 1 CAPSULE BY MOUTH EVERY DAY Sertraline 50 mg tablet Discont inued 50 MG PO Daily [facility] 2023 9:34am September 02, 2024 8:35a m Omeprazole 20 mg capsule,del ayed release(DR/ EC) Discont inued 0 .ROUTE .COMPLEX July 06, 2024 11:42a m November 11, 2024 4:20p m TAKE 1 CAPSULE BY MOUTH EVERY DAY Sertraline 50 mg tablet Discont inued 50 MG PO Daily September 02, 2024 8:35am November 11, 2024 4:20p m Omeprazole 20 mg capsule,del ayed release(DR/ EC) Active 0 .ROUTE .COMPLEX November 11, 2024 4:20pm TAKE 1 CAPSULE BY MOUTH EVERY DAY Complies with drug therapy Sertraline 50 mg tablet Active 50 MG PO Daily November 11, 2024 4:20pm Complies with drug therapy Metformin 500 mg tablet extended release 24 hr Discont inued 1000 MG PO Daily July 26, 2024 11:35a m Octob er 2024 10:20 am Valsartan 80 mg tablet Discont inued 80 MG PO Daily 2024 1:00am Aug 2024 1:21p m Nebivolol 2.5 mg tablet Discont inued 2.5 MG PO Daily 2024 1:00am 2024 1:21p m Valsartan 80 mg tablet Active 80 MG PO Daily December 31, 2024 1:20pm Complies with drug therapy Nebivolol 2.5 mg tablet Active 2.5 MG PO Daily December 31, 2024 1:21pm Complies with drug therapy Azithromyci n 250 mg tablet Discont inued 0 PO .COMPLEX December 31, 2024 12:00a m Octob er 2024 10:20 am For 250 mg dose pack: take 500 mg today (day 1), then 250 mg for 4 days (days 2-5) PO Carvedilol 3.125 mg tablet Discont inued 3.125 MG PO Twice daily December 22, 2023 12:00a m July 26, 2024 8:50a m Omeprazole 20 mg capsule,del ayed release(DR/ EC) Discont inued 20 MG PO Daily December 22, 2023 12:00a m Decem 2023 11:49 am Sacubitril- Valsartan (Entresto) 49-51 mg tablet Discont inued 1 TAB PO Twice daily December 22, 2023 12:00a m Febru myrtle 2024 2:32p m Nirmatrelvi r-Ritonavir (Paxlovid) 300 mg (150 mg x 2)-100 mg tablets,dos e pack Discont inued 0 PO .COMPLEX 30 December 22, 2023 12:00a m Octob er 2023 11:24 am take TWO 150 mg tablets of nirmatrelvir with ONE 100 mg tablet of ritonavir twice daily for 5 days PO Sertraline 50 mg tablet Discont inued 50 MG PO Daily 90 Febobe r 2023 11:23a m Decem terrance 2023 9:34a m Metformin 500 mg tablet extended release 24 hr Discont inued 1000 MG PO Daily 60 y 2024 1:00am July 26, 2024 11:35 am Days 1 through 7 take 1 tab daily. Vital Signs Vital Reading Result Reference Range Collection Date/Time Height 58.75 [in_i] December 31 1:06pm Weight 84.82 kg December 31 1:06pm Body Temperature 98.0 [degF] 97.6-99.0 December 1:06pm Heart Rate 77 /min 60-100 December 31 1:06pm Respiratory rate 14 /min 12-December 1:06pm Oxygen saturation by Pulse oximetry 95 % 95-100 December 31, 2024 1: 06pm BP Systolic 120 mm[Hg] 100-140 December 31 1:06pm BP Diastolic 77 mm[Hg] 60-100 December 31 1:06pm BMI (Body Mass Index) 38.0 kg/m2 December 31, 2024 1:06pm Height 58.75 [in_i] February 04 10:17am Weight 83.91 kg February 04 10:17am Heart Rate 80 /min 60-100 February 04 10:17am BP Systolic 108 mm[Hg] 100-140 February 04 10:17am BP Diastolic 69 mm[Hg] 60-100 February 04 10:17am BMI (Body Mass Index) 37.6 kg/m2 Oct2024 10:17am Advance Directives Advance Directive Response Recorded Date/ Time Advance Directives No March 11, 2019 3:45pm Insurance Providers Guarantor Chantelle Baltazar Bell Address [address] [place] [address] Contact Info. Home Phone: Payer Policy Id Subscriber's Name Subscriber Id Effectiv e Date Expiration Date Medicaid [id number] Chantelle Delaney Bell [id number] [employer] [id number] Chantelle Bell [id number] Encounters Encounter Location(s) Arrival/Admit Date Discharge/Depart Date Provider(s) Non-patient / [facility]visit -[facility] December 09, 2024 1:01pm Shea Harper Departed Physician/Prov ider Office Visit -[facility] December 31, 2024 1:03pm December 31, 2024 1:25pm Norma Tapia MD Departed Physician/Prov ider Office Visit -[facility] February 04, 2025 10:02am February 04, 2025 10:46am Norma Tapia MD Recent Diagnosis Onset Date Admit Date Bronchitis Unknown December 31 1:03pm Heart failure Unknown December 31 1:03pm Costovertebral (angle) tenderness, bilateral Unk nown February 04, 2025 10:02am Lumbar pain Unknown February 04 10:02am Urinary frequency Unknown February 04 10:02am Assessments Diagnosis Onset Date Resolution Status Admit Date Bronchitis acute December 31 1:03pm Heart failure acute December 1:03pm Costovertebral (angle) tenderness, bilateral acute February 10:02am Lumbar pain acute October 3rd, 2025 10:02am Urinary frequency acute February 04, 2025 10:02am Plan of Treatment Author Norma Tapia [facility] Authored January 06, 2025 9:10am Explained that her cardiolog ist usually writes these meds. Pt states she is out and can't get ahold of that office. Will refill once and request she call their office in the future. (Friday afternoon before 3 day weekend) Discussed diagnosis with patient. Patient to start Zithromax. Patient to take Zithromax daily with food as prescribed. Finish entire course of antibiotic. Proair inhaler sent today for patient to use PRN cough/wheezing/shortness of breath. Tessalon Pearles ordered to take as needed for cough. Increase fluids and rest. [id number] antipyretics as needed. Warning signs and symptoms reviewed with patient today. Patient to go immediately to the ER should she experience any of these. Patient to notify office should her symptoms persist and not improve. Patient verbalizes understanding and agrees to treatment plan. Future Tests Future scheduled test information is unavailable Pending Tests Pending diagnostic test information is unavailable Future Visits Future appointment information is unavailable Referrals to Other Providers Referral information is unavailable Future Procedures Procedure Name Ordered Date Scheduled Date Basic Metabolic Panel February 04, 2025 10:38am Complete Blood Count Auto Diff February 04, 2025 10:38am Urine Culture February 04, 2025 10:38am Urinalysis February 04, 2025 10:38am Future Medications Future medication information is unavailable Patient Instructions Patient instructions are unavailable
--- OUTSIDE RECORDS SUMMARY | 2025-02-15 11:30 | XMS_ITS | Clinical Summary ---
Author Organization [employer] tem Address [id number] [address] [place] [address] Care Team Providers Care Slack Line Yarder Name Role Phone Norma Tapia MD Primary Care Provider [phone] Allergies Active Allergy Reactions Criticality Noted Date [...] Insurance [place]ICAID [place] MEDIC[place] Care Teams Slack Line Yarder Relationship Specialty Start Date End Date Norma Tapia MD [facility] [place] [address] PCP - General Family Medicine 08/09/19
--- OUTSIDE RECORDS SUMMARY | 2025-02-15 11:30 | XMS_ITS | Encounter Summary ---
Author Organization [facility] Address [address] [place] [address] Phone Care Team Providers Care Camera Control Operator Name Role Phone Norma Tapia MD Primary Care Provider [phone] Lynn Jorgensen INTERNET MARKETING ANALYST-BRAIN SURGEON Unavailable Unavailable Norma Tapia MD Primary Care Provider [phone] Daphne Ngo MD Unavailable Encounter Details Date Type Department Care Team (Late st Contact Info) Description 02/02/2021 Orders Only [facility] [address] [place] [address] Conversion, Onbase Social History Tobacco Use Types [...] Description 05/18/2025 10:10 AM EST Office Visit [facility] 703 [facility] [address] [place] [address] Lupe Boswell MD 703 [facility] 2, [address] [place] [address] Scheduled Orders Name Type Priority Associated Diagnoses Orde r Schedule OUTSIDE LAB SCAN Lab Ordered: 02/02/2021 documented as of this encounter Visit Diagnoses Not on filedocumented in this encounter Care Teams Camera Control Operator Relationship Specialty Start Date End Date Norma Tapia MD [address] [place] [address] PCP - General 09/30/19 04/15/23 Norma Tapia MD [address] [place] [address] PCP - General Family Medicine 04/16/23 Lynn Jorgensen, INTERNET MARKETING ANALYST-BRAIN SURGEON [address] [place] [address] Nurse Practitioner Cardiology 03/07/23 03/23/24 Daphne Ngo MD [address] [facility] Medical Office [address], [address] [place] [address] Enamel Burner Electrophysiology 03/24/24 documented as of this encounter
--- OUTSIDE RECORDS SUMMARY | 2025-02-15 11:30 | XMS_ITS | Clinical Summary ---
Author Organization [facility] Address [address] [place], [place] [id number] Care Team Providers Care Cryptographic Technician Name Role Phone Norma Tapia MD Primary Care Provider [phone] Allergies Active Allergy Reactions Criticality Noted Date [...] N ot on file 04/12/2020 Data from: [email or web address] Last address used for calculation Not [...] Density Screening 10/03/2019 Advance Directive Discussion 05/05/2024 Covid-19 Vaccine (1 - 2024- season) 2025 Influenza Vaccine (#1) 2025 RSV Vaccine (1 - 1-dose 75+ series) 2029 Medical Devices Implanted Type Area Finish Painter Device Identifier Shelf Expiration Date Model / Serial / Lot [id number] Viva Quad S [id number] -2015 Implanted:2014 (Quantity not on file) ICD [employer] [id number] V anahy Quad S SENIOR GRAPHIC DESIGNER-D / [id number] / Procedures Procedure Name Priority Date/Time Associated Diagnosis Comments BASIC METABOLIC PANEL STAT 01/25/2015 12:00 PM EDT Chronic systolic congestive heart failure (HCC) from Last 3 Months or Most Recently Relevant to Health Maintenance Results * (ABNORMAL) BASIC METABOLIC PNL (01/25/2015 12:00 PM EDT) Glucose 100 65 - 100 mg/dL 01/25/2015 1:38 PM EDT [facility] BUN 30(H) 8 - 25 mg/dL 01/25/2015 1:38 PM EDT [facility] Creatinine 1.16 0.70 - 1.40 mg/dL 01/25/2015 1:38 PM EDT [facility] Sodium 137 132 - 148 mmol/L 01/25/2015 1:38 PM EDT [facility] Potassium Unable to assay. Specimen significantly hemolyzed. 3.5 - 5.0 mmol/L 01/25/2015 1:38 PM EDT [facility] Chloride 107 98 - 110 mmol/L 01/25/2015 1:38 PM EDT [facility] CO2 23 23 - 32 mmol/L 01/25/2015 1:38 PM EDT [facility] Anion Gap 7 0 - 15 mmol/L 01/25/2015 1:38 PM EDT [facility] Calcium 9.5 8.5 - 10.5 mg/dL 01/25/2015 1:38 PM EDT [facility] eGFR- 58 01/25/2015 1:38 PM EDT [facility] eGFR-All Other Races 48 . 01/25/2015 1:38 PM T [facility] Comment: eGFR (Estimated GFR) Units of [...] EDT Nathalie Lux MD LABORATORY Final Result [facility] [address] [place] [address] from Last 3 Months or Most Recently Relevant to Health Maintenance Insurance [place]ICAID [place] Member Subscriber Plan / Payer (Ef fective 2017-Present) Name:Chantelle Bell Relation to Subscriber:Self Name:Chantelle Bell Payer ID:Not on file Group ID:Not on file Type:Medicaid Address: [address] DUAL COMPLETE HMO [facility] Advance Directives Documents on File Type Date Recorded Patient Regional Controller Expl anation Advance Directive(s) 01/25/2015 10:56 AM Care Teams Cryptographic Technician Relationship Specialty Start Date End Date Norma Tapia MD [address] [place] [address] PCP - General Family Medicine 10/24/14
--- OUTSIDE RECORDS SUMMARY | 2025-02-15 11:31 | XMS_ITS | Clinical Summary ---
Author Organization [facility] Address [address] [place] [address] Phone Care Team Providers Care Hops Farmworker Name Role Phone Norma Tapia MD Primary Care Provider Daphne Ngo MD Unavailable Allergies Active Allergy [...] Description 05/18/2025 10:10 AM EST Office Visit [facility] [address] [phone] Shan Boswell MD 703 [facility] 2, [address] [place] [address] Health Maintenance Due Date Last [...] mg/dL LAB CHEMISTRY METHOD 08/29/2023 12:02 PM [facility] Sodium 143 136 - 145 mmol/L LAB CHEMISTRY METHOD 08/29/2023 12:02 PM [facility] Potassium 4.4 3.5 - 5.3 mmol/L LAB CHEMISTRY METHOD 08/29/2023 12:02 PM [facility] Chloride 107 98 - 107 mmol/L LAB CHEMISTRY METHOD 08/29/2023 12:02 PM [facility] Bicarbonate 29 21 - 32 mmol/L LAB CHEMISTRY METHOD 08/29/2023 12:02 PM [facility] Anion Gap 11 10 - 20 mmol/L LAB CHEMISTRY METHOD 08/29/2023 12:02 PM [facility] Urea Nitrogen 19 6 - 23 mg/dL LAB CHEMISTRY METHOD 08/29/2023 12:02 PM [facility] Creatinine 0.75 0.50 - 1.05 mg/dL LAB CHEMISTRY METHOD 08/29/2023 12:02 PM [facility] eGFR 87 >60 mL/min/1. 73m*2 LAB CHEMISTRY METHOD 08/29/2023 12:02 PM [facility] Comment: Calculations of estimated GFR are performed using the 2020 CKD-EPI Study Refit equation without the race variable for the IDMS-Traceable creatinine methods. https://jasn.asnjournals.org/content/early//ASN.9973483408 Calcium 9.5 8.6 - 10.3 mg/dL LAB CHEMISTRY METHOD 08/29/2023 12:02 PM EDT [facility] Blood Venous blood specimen / Unknown Venipuncture / Unknown 08/29/2023 9:44 AM EDT 08/29/2023 9:45 AM EDT Lynn Kurtz ChavaToshia WAREHOUSE PICKER-FILTER TANK TENDER LAB BLOOD ORDERA BLES Final Result [facility] [address] [place] [address] * Echocardiogram (11/22/2022 11:17 AM EDT) 11/22/2022 11:1 7 AM EDT Narrative SY[facility] - 11/22/2022 1:01 PM EDT [address], [address] [address] TRANSTHORACIC ECHOCARDIOGRAM REPORT Patient Name: NYA Hayward Physician: [id number] Shan Boswell MD, [facility] Study Date: 11/22/2022 Referring SHAN BOSWELL Physician: MRN/PID: [id number] PCP: Norma Tapia Accession/Order#: [id number] Department [facility] Location: Date of : 1955 Fellow: Gender: F Nurse: Admit Date: Billet Heater Operator: Ashlyn Cam [facility], T Height: 152.40 cm CC Report to: Weight: 91.17 kg Study Type: Echocardiogram BSA: 1.87 m2 Blood Pressure: 134 /62 mmHg Diagnosis/ICD: I50.22-Chronic systolic (congestive) heart failure (CHF); I42.9-Cardiomyopathy, unspecified Indication: AICD, WALDEMAR, Obesity Procedure/CPT: Echo Complete w Full [id number] Study Detail: The following Echo studies were [...] 0.8 m/s (0.6-0.9m/s) PV Max P.3 mmHg [id number] Shan Boswell MD, [facility] Electronically signed on 11/22/2022 at 1:01:56 PM Final Procedure Note Shan Boswell MD - 11/22/[address], Suite [facility], [place] [address] TRANSTHORACIC ECHOCARDIOGRAM REPORT Patient Name: NYA REDMOND Reading Physician: [id number] Shan HairalfaNE, [facility] Study Date: 11/22/2022 Referring SHAN BOSWELL Physician: MRN/PID: [id number] PCP: Norma Tapia Accession/Order#: [id number] [facility] Location: Date of : 1955 Fellow: Gender: F Nurse: Admit Date: Billet Heater Operator: Ashlyn Cam RDCS,T Height: 152.40 cm CC Report to: Weight: 91.17 kg Study Type: Echocardiogram BSA: 1.87 m2 Blood Pressure: 134 /62 mmHg Diagnosis/ICD: I50.22-Chronic systolic (congestive) heart failure (CHF); I42.9-Cardiomyopathy, unspecified Indication: AICD, WALDEMAR, Obesity Procedure/CPT: Echo Complete w Full [id number] Study Detail: The following Echo studies were [...] 0.8 m/s (0.6-0.9m/s) PV Max P.3 mmHg [id number] Shan Boswell MD, FACC Electronically signed on 11/22/2022 at 1:01:56 PM Final us Shan Boswell MD CV ECHO PROCEDURES Final Res ult [facility] from Last 3 Months or Most Recently Relevant to Health Maintenance Insurance [facility] DUAL ADVANTAGE MEDICAID [facility] NET[employer]KS ANTH DUAL ADVANTAGE Care Teams Hops Farmworker Relationship Specialty Start Date End Date Norma Tapia MD PCP - General Family Medicine 04/16/23 Daphne Ngo MD [address] [facility], [address] [place] [id number] Sprinkler Truck Driver Electrophysiology 03/24/24
--- OUTSIDE RECORDS SUMMARY | 2025-02-15 11:31 | XMS_ITS | Encounter Summary ---
Author Organization [facility] Address [address] [place] [address] Phone Care Team Providers Care Medtronics Technician Name Role Phone Lynn Jorgensen APRN-ROLLOFF TRUCK DRIVER Unavailable Unavailable Norma Tapia MD Primary Care Provider [phone] Daphne Ngo MD Unavailable Encounter Details Date Type Department Care Team (Late st Contact Info) Description 05/28/2023 Scanned Document [facility] [address] [place] [address] Scanning, Generic Provider Social History Tobacco Use [...] Description 05/18/2025 10:10 AM EST Office Visit [facility] 703 [facility] [address] [place] [address] Lupe Boswell MD [address] [place] [address] 2, [address] [place] [address] documented as of this encounter Visit Diagnoses Not on filedocumented in this encounter Additional Health Concerns Assessment Noted Time PHQ-9 Depression Total Score: 12 022 1:20 PM EDT A fall risk assessment has been complete d for the patient 05/12/2023 1:32 PM EST documented as of this encounter Care Teams Medtronics Technician Relationship Specialty Start Date End Date Norma Tapia MD PCP - General Family Medicine 04/16/23 Lynn Jorgensen, ACCOUNT ASSOCIATE-ROLLOFF TRUCK DRIVER Nurse Practitioner Cardiology 03/07/23 03/23/24 Daphne Ngo MD [address] [facility] Medical Office [facility], [address] [place] [address] Electric Meter Tester Shop Electrophysiology 03/24/24 documented as of this encounter
--- OUTSIDE RECORDS SUMMARY | 2025-02-15 11:31 | XMS_ITS | Encounter Summary ---
Author Organization [facility] Address [address] [place] [address] Phone Care Team Providers Care Zinc Skimmer Name Role Phone Norma Tapia MD Primary Care Provider [phone] Daphne Ngo MD Unavailable Encounter Details Date Type Department Care Team (Late st Contact Info) Description 07/12/2024 Scanned Document [facility] [address] [place] [phone] Scanning, Generic Provider Social History Tobacco Use [...] Description 05/18/2025 10:10 AM EST Office Visit [facility] 703 [facility] [address] [place] [address] Lupe Boswell MD 703 [facility] 2, [address] [place] [address] documented as of this encounter Visit Diagnoses Not on filedocumented in this encounter Additional Health Concerns Assessment Noted Time PHQ-9 Depression Total Score: 12 022 1:20 PM EDT A fall risk assessment has been complete d for the patient 11/18/2023 10:44 AM EDT documented as of this encounter Care Teams Zinc Skimmer Relationship Specialty Start Date End Date Norma Tapia MD PCP - General Family Medicine 04/16/23 Daphne Ngo MD [address] [facility], [facility] [address] [place] [address] Acquisitions Analyst Electrophysiology 03/24/24 documented as of this encounter
--- OUTSIDE RECORDS SUMMARY | 2025-02-15 11:31 | XMS_ITS | Encounter Summary ---
Author Organization [facility] Address [address] [place] [address] Phone Care Team Providers Care Women Designer Name Role Phone Norma Tapia MD Primary Care Provider [phone] Lynn Jorgensen SHUTTLE FIXER-SCRAP CRUSHER Unavailable Unavailable Norma Tapia MD Primary Care Provider Daphne Ngo MD Unavailable Encounter Details Date Type Department Care Team (Late st Contact Info) Description 04/23/2022 Orders Only [facility] [address] [place] [address] Conversion, Onbase Social History Tobacco Use Types [...] Description 05/18/2025 10:10 AM EST Office Visit [facility] 703 [facility] [address] [place] [address] Lupe Boswell MD 7[address] [facility] 2, [address] [place] [address] Scheduled Orders Name Type Priority Associated Diagnoses Orde r Schedule OUTSIDE LAB SCAN Lab Ordered: 04/23/2022 documented as of this encounter Visit Diagnoses Not on filedocumented in this encounter Additional Health Concerns Assessment Noted Time PHQ-9 Depression Total Score: 12 022 1:20 PM EDT documented as of this encounter Care Teams Women Designer Relationship Specialty Start Date End Date Norma Tapia MD [address] [place] [address] PCP - General 09/30/19 04/15/23 Norma Tapia MD [address] [place] [address] PCP - General Family Medicine 04/16/23 Lynn Jorgensen APRN-SCRAP CRUSHER [address] [place] [address] Nurse Practitioner Cardiology 03/07/23 03/23/24 Daphne Ngo MD [address] [facility] Medical Office [address], [address] [place] [address] General Counsel Electrophysiology 03/24/24 documented as of this encounter
--- OUTSIDE RECORDS SUMMARY | 2025-02-15 11:31 | XMS_ITS | Patient Health Record ---
Author Organization [facility] Address [address] [place], [place] [id number] Care Team Providers Care Bus Steward Name Role Phone Saloni Rowan Unavailable [phone] Allergies Allergen (clinical drug ingredient) Drug/Non Drug [...] Status Risk Notes Problem Obese class II ([id number] 105) BMI 35.0-35.9,a dult (Z68.35) Active confirmed Plan Of Treatment No Information Insurance Providers Payer Name Payer Address Payer Phone Subscriber Number Group Number Insured Name Patient Relationship to Insured Coverage Start Date Coverage End Date [facility] [address] [place] [id number] [facility] Chantelle Bell Self - patient is the insured 3
--- OUTSIDE RECORDS SUMMARY | 2025-02-15 11:31 | XMS_ITS | Encounter Summary ---
Author Organization [facility] Address [address] [place] [address] Phone Care Team Providers Care Archery Instructor Name Role Phone Norma Tapia MD Primary Care Provider [phone] Lynn Jorgensen HOP STRAINER-WET CHAR CONVEYOR TENDER Unavailable Unavailable Norma Tapia MD Primary Care Provider [phone] Daphne Ngo MD Unavailable Encounter Details Date Type Department Care Team (Late st Contact Info) Description 07/19/2021 Orders Only [facility] [address] [place] [address] Conversion, Onbase Social History Tobacco Use Types [...] Office Visit [facility] 703 [facility] [address] [place] [address] Lupe Boswell MD 703 [facility] 2, [address] [place] [address] Scheduled Orders Name Type Priority Associated Diagnoses Orde r Schedule OUTSIDE LAB SCAN Lab Ordered: 07/19/2021 documented as of this encounter Visit Diagnoses Not on filedocumented in this encounter Care Teams Archery Instructor Relationship Specialty Start Date End Date Norma Tapia MD [address] [place] [address] PCP - General 09/30/19 04/15/23 Norma Tapia MD [address] [place] [address] PCP - General Family Medicine 04/16/23 Lynn Jorgensen, HOP STRAINER-WET CHAR CONVEYOR TENDER [address] [place] [address] Nurse Practitioner Cardiology 03/07/23 03/23/24 Daphne Ngo MD [address] [facility] Medical Office [address], [address] [place] [address] On Site Soil Evaluator Electrophysiology 03/24/24 documented as of this encounter
--- OUTSIDE RECORDS SUMMARY | 2025-02-15 11:31 | XMS_ITS | Encounter Summary ---
Author Organization [facility] Address [address] [place] [address] Phone Care Team Providers Care Line Out Worker Name Role Phone Norma Tapia MD Primary Care Provider [phone] Lynn Jorgensen PREFLIGHT INSPECTOR-INDUSTRIAL TECH INSTRUCTOR Unavailable Unavailable Norma Tapia MD Primary Care Provider [phone] Daphne Ngo MD Unavailable Encounter Details Date Type Department Care Team (Late st Contact Info) Description 07/31/2021 Orders Only [facility] [address] [place] [address] Conversion, Onbase Social History Tobacco Use Types [...] 08/02/2021 9:42 AM EDT Conversio n, [employer] [facility] * Pulse Answer Date of Assessment Author 64 08/02/2021 9:42 AM EDT Conversio n, [employer] [facility] documented as of this encounter Plan of Treatment Upcoming Encounters Date Type Department Care Team (Late st Contact Info) Description 05/18/2025 10:10 AM EST Office Visit [facility] 703 [facility] [address] [place] [phone] Lupe Boswell MD 703 [facility] 2, [address] [place] [address] Scheduled Orders Name Type Priority Associated Diagnoses Orde r Schedule OUTSIDE LAB SCAN Lab Ordered: 07/31/2021 documented as of this encounter Visit Diagnoses Not on filedocumented in this encounter Care Teams Line Out Worker Relationship Specialty Start Date End Date Norma Tapia MD [address] [place] [address] [place] [address] PCP - General 09/30/19 04/15/23 Norma Tapia MD [address] [place] [address] [place] [address] PCP - General Family Medicine 04/16/23 Lynn Jorgensen, PREFLIGHT INSPECTOR-INDUSTRIAL TECH INSTRUCTOR [address] [place] [address] Nurse Practitioner Cardiology 03/07/23 03/23/24 Daphne Ngo MD [address] [facility] Medical Office [address], [address] [place] [address] Paper Tube Grader Electrophysiology 03/24/24 documented as of this encounter
--- OUTSIDE RECORDS SUMMARY | 2025-02-15 11:31 | XMS_ITS | Encounter Summary ---
Author Organization [facility] Address [address] [address] Phone Care Team Providers Care Chair Finisher Name Role Phone Norma Tapia MD Primary Care Provider [phone] Lynn Jorgensen CULTURED MARBLE PRODUCTS MAKER-MOVIE PRODUCER Unavailable Unavailable Norma Tapia MD Primary Care Provider [phone] Daphne Ngo MD Unavailable Encounter Details Date Type Department Care Team (Late st Contact Info) Description 11/06/2021 Orders Only [facility] [address] [place] [address] Conversion, Onbase Social History Tobacco Use Types [...] EST Office Visit [facility] 703 [facility] 250 [place] [address] Lupe Boswell MD 703 [facility] 2, [address] [place] [address] Scheduled Orders Name Type Priority Associated Diagnoses Orde r Schedule OUTSIDE LAB SCAN Lab Ordered: 11/06/2021 documented as of this encounter Visit Diagnoses Not on filedocumented in this encounter Additional Health Concerns Assessment Noted Time PHQ-9 Depression Total Score: 12 022 1:20 PM EDT documented as of this encounter Care Teams Chair Finisher Relationship Specialty Start Date End Date Norma Tapia MD [address] [place] [address] PCP - General 09/30/19 04/15/23 Norma Tapia MD [address] [place] [address] PCP - General Family Medicine 04/16/23 Lynn Jorgensen APRN-MOVIE PRODUCER [address] [place] [address] Nurse Practitioner Cardiology 03/07/23 03/23/24 Daphne Ngo MD [address] [facility] Medical Office [address], [address] [place] [address] Inspection Engineer Electrophysiology 03/24/24 documented as of this encounter
--- OUTSIDE RECORDS SUMMARY | 2025-02-15 11:31 | XMS_ITS | Encounter Summary ---
Author Organization [facility] Address [address] [place] [address] Phone Care Team Providers Care Cooler Tender Name Role Phone Norma Tapia MD Primary Care Provider [phone] Lynn Jorgensen DRY LUMBER GRADER-PATIENT SERVICE ASSOCIATE Unavailable Unavailable Norma Tapia MD Primary Care Provider [phone] Daphne Ngo MD Unavailable Encounter Details Date Type Department Care Team (Late st Contact Info) Description 07/18/2021 Orders Only [facility] [address] [place] [address] Conversion, Onbase Social History Tobacco Use Types [...] Description 05/18/2025 10:10 AM EST Office Visit [facility] 703 [facility] [address] [place] [address] Lupe Boswell MD 703 [facility] 2, [address] [place] [address] Scheduled Orders Name Type Priority Associated Diagnoses Orde r Schedule OUTSIDE LAB SCAN Lab Ordered: 07/18/2021 OUTSIDE LAB SCAN Lab Ordered: 07/18/2021 documented as of this encounter Visit Diagnoses Not on filedocumented in this encounter Care Teams Cooler Tender Relationship Specialty Start Date End Date Norma Tapia MD [address] [place] [address] [place] [address] PCP - General 09/30/19 04/15/23 Norma Tapia MD [address] [place] [address] [place] [address] PCP - General Family Medicine 04/16/23 Lynn Jorgensen, DRY LUMBER GRADER-PATIENT SERVICE ASSOCIATE [address] [place] [address] [place] [address] Nurse Practitioner Cardiology 03/07/23 03/23/24 Daphne Ngo MD [address] [facility] Medical [facility], [address] [place] [address] Sand Mixer Machine Electrophysiology 03/24/24 documented as of this encounter
--- OUTSIDE RECORDS SUMMARY | 2025-02-15 11:31 | XMS_ITS | Encounter Summary ---
Author Organization [facility] Address [address] [place] [id number] Care Team Providers Care Medical Technologist Prn Name Role Phone Bimal Barba MD Primary Care Provider + Bimal Sanchez MD Unavailable Norma Tapia MD Primary Care Provider [phone] Source Comments In the event this information is protected by the Federal Confidentiality of Alcohol and Drug AbusePatient Records regulations: The Federal rules restrict any use of the information to criminally investigate or prosecute any alcohol or drug abuse patient.[facility] Encounter Details Date Type Department Care Team (Late st Contact Info) Description 10/07/2013 Abstract Cardiology [address] [place] [address] Bimal Sanchez MD [facility] [place] [address] Social History Tobacco Use Types Packs/Day Years [...] on filedocumented in this encounter Care Teams Medical Technologist Prn Relationship Specialty Start Date End Date Bimal Barba MD [address] [place] [address], [address] [place] [address] PCP - General Internal Medicine 10/06/13 10/23/14 Norma Tapia MD [address] [place] [phone] PCP - General Family Medicine 10/24/14 Bimal Sanchez MD [address] [place] [address], [address] [place] [address] Primary Staff Physician Cardiology 08/03/14 6 documented as of this encounter
--- OUTSIDE RECORDS SUMMARY | 2025-02-15 11:31 | XMS_ITS | Encounter Summary ---
Author Organization [facility] Address [address] [place] [address] Care Team Providers Care Medical Physiologist Name Role Phone Bimal Sanchez MD Unavailable Norma Tapia MD Primary Care Provider [phone] Source Comments In the event this information is protected by the Federal Confidentiality of Alcohol and Drug AbusePatient Records regulations: The Federal rules restrict any use of the information to criminally investigate or prosecute any alcohol or drug abuse patient.[facility] Reason for Visit * Reason Comments PSG Check In (Adult) Encounter Details Date Type Department Care Team (Late st Contact Info) Description 02/24/2015 Abstract Neurology [address] [id number] [facility] [address] [id number] PSG Check In (Adult) Social History Tobacco [...] filedocumented in this encounter Care Teams Medical Physiologist Relationship Specialty Start Date End Date Norma Tapia MD [address] [place] [phone] PCP - General Family Medicine 10/24/14 Bimal Sanchez MD Primary Staff Physician Cardiology 08/03/14 6 documented as of this encounter
--- OUTSIDE RECORDS SUMMARY | 2025-02-15 11:31 | XMS_ITS | Clinical Summary ---
Author Organization [facility] Address [address] [place] [address] Care Team Providers Care Dog Races Manager Name Role Phone Unavailable Primary Care Provider [...]
--- OUTSIDE RECORDS SUMMARY | 2025-02-15 11:31 | XMS_ITS | Patient Health Record ---
Author Organization [facility] Address [address] [place] [address] Care Team Providers Care Oyster Shipper Name Role Phone Norma Tapia M.D. Primary Care Provider Unavail able AdenClint seay Unavailable [phone] Chloe Jacobo Unavailable Allergies No Known Allergies [...] distal end of right radius, initial encounter (S52.598Z) Referral Organization [facility] Referring Provider First Name Chloe Referring Provider Last Name Odalis Referring Provider Speciality Physician End Stapler Referred Organization [facility] Central Scheduling Referred Address [address] [place] [place], [place],[address],US Procedure 1 MRI Joint Upper Ext w/o Dye ([id number]) General Notes Blanca Patino 02/2025 03:17:53 PM > PER NATACHA PRIOR AUTH HAS BEEN APPROVED FROM 07/12/2024-10/09/2024 AUTH # [id number], AUTH IN CHART. FAXED TO Laina KIRKLAND Monica 07/12/2024 03:24:17 PM > FAXED ORDER, Singh Fela 07/16/2024 10:31:32 AM >Change location to [facility] in [place]. Patient has a defibrillator and a pacemaker. Unable to have MRI at [place]. Faxed order to [facility]. They will set up her cardiac clearance and the MRI., Blanca Patino 07/16/2024 11:02:17 AM > AUTH HAS BEEN UPDATED TO [facility] AND FAXED OVER WELL, Fela Winters [...] Problem Status W/U Status Risk Notes Problem [id number] Contusion of right elbow, initial encounter (S50.01XA) Active confirmed Problem [id number] Abrasion of right elbow, initial encounter (S50.311A) Active confirmed Problem [id number] Nondisplaced fracture of right radial styloid process, subsequent encounter for closed fracture with routine healing (S52.514D) Active confirmed Problem [id number] Sprain of righ t wrist, initial encounter (S63.501A) Active confirmed Problem [id number] Trips over objects (W18.40XA) Active confirmed Vital Signs Height 5'0 in 07/19/2024 Weight 193 lbs 07/19/2024 BMI 37.69 07/19/2024 Encounters Encounter Location Date Provider Diagnosis [facility] [address] [facility] [place] [address] 08/09/2024 Chloe Jacobo Acute pain of right wrist M25.531 and Contusion of right wrist, initial encounter S60.211A [facility] [address] [facility] [place] [address] 06/07/2024 Chloe Jacobo Contusion of right elbow, initial encounter S50.01XA ; Abrasion of right elbow, initial encounter S50.311A ; Sprain of right wrist, initial encounter S63.501A and Trips over objects W18.40XA [facility] [facility] [address] [place] [address] 06/14/2024 [facility] Nondisplaced fracture of right radial styloid process, initial encounter for closed fracture S52.514A and Sprain of right wrist, initial encounter S63.501A [facility] [facility] [address] [facility] [place] [address] 06/21/2024 Chloe [facility] Other closed fracture of distal end of right radius, initial encounter S52.591A [facility] [address] [facility] [place] [address] 06/25/2024 Chloe [facility] Nondisplaced fracture of right radial styloid process, subsequent encounter for closed fracture with routine healing S52.514D [facility] [facility] [address] [facility] [place] [address] 06/28/2024 Chloe [facility] Other closed fracture of distal end of right radius, initial encounter S52.591A [facility] [address] [facility] [place] [address] 07/12/2024 Clint [place] Nondisplaced fracture of right radial styloid process, subsequent encounter for closed fracture with routine healing S52.514D [facility] [facility] [address] [facility] [place] [address] 07/19/2024 Chloe [facility] Nondisplaced fracture of right radial styloid process, subsequent encounter for closed fracture with routine healing S52.514D [facility] [address] [facility] [address] 06/08/2024 Chloe [facility] Other closed fracture of distal end of right radius, initial encounter S52.591A [facility] [place] [address] [place] [address] 06/11/2024 Chloe [facility] Other closed fracture of [...] 2 months as she does live in [place] part-time with her significant other. 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 We will see [...] MRI : Wrist W/O Contrast Right - [id number] 07/12/2024 [facility]- PT/OT EVAL AND TREAT 3X/WEEK FOR 6 WEEKS 08/09/2024 Insurance Providers Payer Name Payer Address Payer Phone Subscriber Number Group Number Insured Name Patient Relationship to Insured Coverage Start Date Coverage End Date Medicare [employer] [address] [place] [address] [id number] [id number] [id number] Self - [facility] is the [facility] [address] [place] [address] [id number] NYA [id number] Self - patient is the insured
--- OUTSIDE RECORDS SUMMARY | 2025-02-15 11:34 | XMS_ITS | CCD ---
Author Organization [facility] Care Team Providers Care Director Education Name Role Phone Hampole, Haile V Unavailable Unavailable Hampole, Haile V Unavailable Unavailable Hampole, Haile V Unavailable Unavailable ANUPAM PEREIRA~[phone] UNKNOWN Unavailable Unavailable Harsh Lange Unavailable Unavailable Harsh Lange Unavailable Unavailable Anupam Pereira Unavailable Unavailable Unavailable MD Anupam Pereira Primary Care Provider MD Daphne Mayes Attending Provider [phone] Unavailable Unavailable MD Anupam Pereira Primary Care Provider MD Daphne Mayes Attending Provider [phone] MD Anupam Pereira Primary Care Provider MD Daphne Mayes Attending Provider [phone] MD Anupam Pereira Primary Care Provider MD Daphne Mayes Attending Provider [phone]up[address] Un[address] ANUPAM PEREIRA Primary Care Unavailable MARI AFERNANDA ., DR JANICE Casas Attending Unavailable MARIA FERNANDA ., DR JANICE Caass Admitting Unavailable MARIA FERNANDA Yanez, DR JANICE [...] Kurtz Primary Care Unavailable PEREIRA, DR ANUPAM uKrtz Attending Unavailable PEREIRA, DR ANUPAM Kurtz Admitting Unavailable GARLAND, DR CECY Wade Consulting Unavailable ZIEBER, DR [...] Unavailable MD Anupam Pereira Primary Care Provider [phone] MD Daphne Mayes Attending Provider [phone] Rosado, Dr. Lupe Carrion Attending Kathya vailable [...] Unavailable ANUPAM PEREIRA Primary Care Unavailable ROSADO, LUPE Denney Referring Unavailable ANUPAM PEREIRA Primary Care Unavailable Anupam Pereira MD Primary Care Provider Chasity Harper MD Attending Provider Daphne Mayes MD Unavailable Anupam Pereira MD Primary Care Provider Chasity Harper MD Attending Provider Rosemarie Lea APRN Attending Provider Anupam Pereira MD Primary Care Provider Maren [...] Unavailable Anupam Pereira MD Primary Care Provider [phone] Lupe Rosado MD Other Provider Chasity Harper [...] Translations: [Tape] Propensity to adverse reactions (disorder) [facility] Repository (15 sources) Desonide Drug Allergy 06-12-19 16 Unknown, Rash [facility] Repository (1 source) Latex Drug allergy (disorder) [facility] Repository (1 source) patient allergy list reviewed by nurse or physicia Propensity to adverse reactions 08-31-19 15 Comment:Done [employer] Other (1 source) Allergies Reconciled Propensity to adverse reactions Unknown [employer] Other (10 sources) Adhesive agent; Translations: [ADHESIVE] Drug Intolerance 10-26-19 14 Unknown [facility] (1 source) Adhesive Tape Drug allergy (disorder) 07-27-19 25 [facility] Repository Medications Current Medications Medication Drug [...] Active Start: 12-31-2022 [facility] hours Benzonatate 200 MG 1 [...] Start: 12-24-2022 take 2 tablets by mo uth every twenty-four hours predniSONE 20 MG 2 tablets Orally Once a day for 5 days Dec, Active tiZANidine 4 mg oral tablet (7 sources) Central alpha-2 Adrenergic Agonist tiZANidine HCl 4 MG TAKE 1 TABLET BY MOUTH THREE TIMES A DAY NEEDED FOR 30 DAYS for 20 Active Completed/Discontinued Medications Medication Drug Class(es) Dates Sig (Normalized) Sig (Original) [id number] 200 actuat albuterol 0.09 mg/actuat metered dose inhaler (11 sources) beta2-Adrenergic Agonist Start: 06-20-2023 End: 12-22-2023 [...] 20, 2023 12:00am December 22, 2023 1:01pm azithromycin 250 mg oral tablet (2 sources) Macrolide Antimicrobial Start: 12-31-2024 End: 02-04-2025 Azithromycin 250 mg tablet Discontinued 0 PO .COMPLEX 6 December 31, 2024 12:00am February 04, 2025 10:20am For 250 mg dose pack: take 500 mg today (day 1), then 250 mg for 4 days (days 2-5) PO carvedilol 3.125 mg oral tablet (20 sources) [...] Discontinued (Dose adjustment) take 1 tablet by yuliya th every [...] Provitamin D2 Compound Start: 10-10-19 End: 08-29-19 take 1 capsule by mouth once daily Vitamin D (Ergocalciferol) 50 MCG (2000 UT) Oral Capsule one daily OTC Quantity: 90 Refills: 0 Ordered: 09-Oct-2022 Lupe Rosado MD Start : 09-Oct-2022 Active Start: 05-23-2022 take 1 capsule by mo [facility] every week Vitamin D (Ergocalciferol) 1.25 MG (53558 UT) 1 capsule Orally weekly for 90 [...] TABLET EVERY DAY Oral for 90 Not-Taking 24 hr metFORMIN hydrochloride 500 mg extended release oral tablet (16 sources) Biguanide Start: 5 End: 5 Metformin 500 mg tablet extended release 24 hr Discontinued 1000 MG PO Daily 60 July 26, 2024 11:35am February 04, 2025 10:20am Start: 05-31-2024 take 1 tablet by yuliya th twice daily metFORMIN XR 500 mg 24 hr tablet Take 1 tablet (500 mg) by mouth 2 times daily (morning and late afternoon). 05/31/2024 Active Start: 05-31-2024 End: 07-26-2024 take 1 tablet by mouth once daily, then take 1 tablet by mouth once daily Metformin 500 mg tablet extended release 24 hr Discontinued 1000 MG PO Daily 60 May 31, 2024 1:00am July 26, 2024 11:35am Days 1 through 7 take 1 tab daily. nabumetone 750 mg oral tablet (5 sources) Nonsteroidal Anti-inflammatory Drug take 1 tablet by mouth twice daily Nabumetone 750 MG TAKE 1 TABLET TWICE A DAY Oral for 30 Not-Taking nebivolol 2.5 mg oral tablet (12 sources) Start: 06-10-19 End: 06-10-19 take 1 tablet by mouth once daily Nebivolol 2.5 mg tablet Discontinued 2.5 MG PO Daily June 14, 2024 1:00am December 31, 2024 1:21pm Nirmatrelvir-Riton avir (3 sources) Start: 12-22-19 End: 03-02-20 Nirmatrelvir-Ritonav ir (Paxlovid) 300 mg (150 mg x 2)-100 mg tablets,dose pack Discontinued 0 PO .COMPLEX December 22, 2023 12:00am March 02, 2024 11:24am take TWO 150 mg tablets of nirmatrelvir with ONE 100 mg tablet of ritonavir twice daily for 5 days PO Nirmatrelvir-Riton avir (Paxlovid) 300 mg (150 mg x 2)-100 mg tablets,dose pack (10 sources) Start: 12-22-19 End: 03-02-20 Nirmatrelvir-Ritonav ir (Paxlovid) 300 mg (150 mg x 2)-100 [...] 2024 3:49pm take 1 tablet by yuliya twice daily sertraline (Zoloft) 50 mg tablet Take 1 tablet (50 mg) by mouth 2 times a day. Active take 2 tablets by mo [facility] once daily sertraline (Zoloft) 50 mg tablet Take 2 tablets (100 mg) by mouth once daily. Active take 1 tablet by yuliya once daily Sertraline HCl 100 MG TAKE 1 TABLET BY MOUTH EVERY DAY for Active take 1 tablet by yuliya th [...] day Not-Taking valsartan 80 mg oral tablet (12 sources) Angiotensin 2 Receptor Roxy Start: 06-10-19 [...] anxiety disorder] Onset: 08-30-2014 Chronic Cardiac dysrhythmias (11 sources) Atrial fibrillation; Translations: [Unspecified atrial fibrillation] Onset: 07-12-2024 05-31-2024 Chronic Chronic obstructive pulmonary disease and bronchiectasis (18 sources) Bronchitis; Translations: [Bronchitis, not specified as [...] Onset: 03-28-2014 Chronic Fracture of upper limb (12 sources) Fracture of unspecified carpal bone, right wrist, initial encounter for closed fracture; Translations: [Fracture of right wrist] Onset: 08-03-2024 06-15-2024 Episodic Genitourinary symptoms and ill-defined conditions (16 sources) Increased frequency of urination; Translations: [Frequency of micturition] 02-04-2025 Episodic Gout and other crystal arthropathies (20 [...] Chronic Other nutritional; endocrine; and metabolic disorders (6 sources) Abnormal weight gain; Translations: [Abnormal weight [...] Onset: 02-22-2023 02-25-2023 Chronic Residual codes; unclassified (9 sources) Obstructive sleep apnea syndrome; Translations: [Obstructive [...] sources) Neck pain; Translations: [Cervicalgia] Onset: 08-09-2015 02-04-2025 Episodic Unclassified (4 sources) LOW BACK PAIN, [...] infection, site not specified] Episodic Viral infection (14 sources) Disease caused by 2019-nCoV; Translations: [COVID-19] [...] By: Harsh Ríos on 08-03-2024 Study report [facility] [address] [place] [address] [place] [id number] MRI Report Signed Patient: Nya Bell MR#: [id number] : 1955 Acct:[id number] Age/Sex: 68 / F ADM Date: 5 Loc: MR Room: Type: [facility] CL Attending Dr: Maren Aden Copies to: Maren Aden~ Ordering Provider: Maren Aden Date of Service: 08/03/24 XR/XR pre/post mri xray: S52.591A ([id number]) MR/MR wrist RT wo con: SEE ORDER [...] Harsh Ríos M.D.08/03/2024 3:45 PM Dictation Location: [place] [address] Transcribed By: [facility] 08/03/24 1545 Dictated By: Harsh Ríos DO 08/03/24 1520 Signed By: 08/03/24 1545 [facility] XR pre/post mri xrayon 08-03 XR pre/post mri xray [facility] [address] [place] [address] [place] [address] MRI Report Signed Patient: Nya Bell MR#: [id number] : 1955 Acct:[id number] Age/Sex: 68 / F ADM Date: 08/03/24 Loc: MR Room: Type: [facility] CL Attending Dr: Maren Aden Copies to: Maren Aden Ordering Provider: Maren Aden Date of Service: 08/03/24 XR/XR pre/post mri xray: S52.591A ([id number]) MR/MR wrist RT wo con: SEE ORDER [...] Harsh Ríos M.D.08/03/2024 3:45 PM Dictation Location: [place] [address] Transcribed By: [facility] 08/03/24 1545 Dictated By: Harsh Ríos DO 08/03/24 1520 Signed By: 08/03/24 1545 Normal [facility] A1C with Estimated Average G phyllis 07-12-2024 Glucose [Mass/Vol] 114 mg/dL Normal [facility] Comment on above: Result Comment: PERF ORMED BY: [place] [address] PATHOLOGIST [employer] ARASELI SAHU M.D. Performed By: #### C BCNO, A1C WT eA, LIPID, TSH3 wRFLX #### [address] HbA1c (Bld) [Mass fraction] 5.6 % Normal 4.3-5.6 [facility] Comment on above: Result Comment: Incr eased risk for diabetes: 5.7 - 6.4 diabetes: >6.4 glycemic control for adults with diabetes: <7.0 Performed By: #### C BCNO, A1C WTH eA, LIPID, TSH3 wRFLX #### [facility] [address] [place] [address] Blood estimated average gluc ose determination by estimation from glycated hemoglobinOrdered By: Rosemarie Lea on 07-12-2024 Average glucose Estimated from glycated hemoglobin (Bld) [Mass/Vol] Glucose mean value [Mass/volume] in Blood Estimated from glycated hemoglobin [facility] Cholesterol [Mass/volume] in Serum or PlasmaOrdered By: Rosemarie Lea on 07-12-2024 Cholesterol [Mass/Vol] Cholesterol [Mass/volume] in Serum or Plasma 140-200 [facility] Comment on above: Chol less than 200 m g/dl low riskChol 201-239 mg/dl borderline riskChol 240 mg/dl and greater high risk Cholesterol in HDL [Mass/vol ume] in Serum or PlasmaOrdered By: Rosemarie Lea on 07-12-2024 Cholesterol in HDL [Mass/Vol] Serum or plasma high density lipoprotein (HDL) cholesterol measurement [facility] Comment on above: HDL CHOL ATP-III CLA SSIFICATION Cardiovascular RiskHDL > or equal to 60 mg/dL LOWHDL < 40 mg/dL HIGH Cholesterol in LDL Calc [Mas s/Vol]Ordered By: Rosemarie Lea on 07-12-2024 Cholesterol in LDL [Mass/Vol] Cholesterol in LDL [Mass/volume] in Serum or Plasma by calculation 0-100 [facility] Comment on above: LDL ATP III CLASSIFI CATIONLDL less than 100 mg/dL OptimalLDL 100-129 mg/dL Near or above optimalLDL 130-159 mg/dL Borderline highLDL 160-189 mg/dL HighLDL greater than 189 mg/dL Very high Cholesterol in VLDL Calc [Ma ss/Vol]Ordered By: Rosemarie Lea on 07-12-2024 Cholesterol in VLDL [Mass/Vol] Cholesterol in VLDL [Mass/volume] in Serum or Plasma by calculation [facility] Erythrocyte distribution wid th Auto (RBC) [Ratio]Ordered By: Rosemarie Lea on 07-12-2024 Erythrocyte distribution width (RBC) [Ratio] Erythrocyte distribution width [Ratio] by Automated count 11.9-15.3 [facility] Hematocrit Auto (Bld) [Volum e fraction]Ordered By: Rosemarie Lea on 07-12-2024 Hematocrit (Bld) [Volume fraction] Hematocrit [Volume Fraction] of Blood by Automated count 34.0-46.4 [facility] Hemoglobin A1c/Hemoglobin.to [facility] in BloodOrdered By: Rosemarie Lea on 07-12-2024 HbA1c (Bld) [Mass fraction] Hemoglobin A1c percentage 4.3-5.6 [facility] Comment on above: Increased risk for d iabetes: 5.7 - 6.4diabetes: >6.4glycemic control for adults with diabetes: <7.0 Hemoglobin [Mass/volume] in BloodOrdered By: Rosemarie Lea on 07-12-2024 Hemoglobin (Bld) [Mass/Vol] Hemoglobin [Mass/volume] in Blood 11.8-15.4 [facility] Hemogram CBC Without Diffon 07-12-2024 Erythrocyte distribution width (RBC) [Ratio] 14.4 % Normal 11.9-15.3 [facility] Comment on above: Performed By: #### C BCNO, A1C WTH eA, LIPID, TSH3 wRFLX #### [address] Hematocrit (Bld) [Volume fraction] 36.0 % Normal 34.0-46.4 [facility] Comment on above: Performed By: #### C BCNO, A1C WTH eA, LIPID, TSH3 wRFLX #### [address] Hemoglobin (Bld) [Mass/Vol] 12.3 g/dL Normal 11.8-15.4 [facility] Comment on above: Performed By: #### C BCNO, A1C WTH eA, LIPID, TSH3 wRFLX #### [address] MCH (RBC) [Entitic mass] 29.0 pg Normal 24.7-34.3 [facility] Comment on above: Performed By: #### C BCNO, A1C WTH eA, LIPID, TSH3 wRFLX #### [address] MCV (RBC) [Entitic vol] 84.7 fL Normal 80-100 [facility] Comment on above: Performed By: #### C BCNO, A1C WTH eA, LIPID, TSH3 wRFLX #### [address] Mean Corpuscular HGB Conc 34.2 g/dL Normal 32.0-35.0 [facility] Comment on above: Performed By: #### C BCNO, A1C WTH eA, LIPID, TSH3 wRFLX #### [address] Platelet mean volume (Bld) [Entitic vol] 9.0 fL Normal 6.3-10.7 [facility] Comment on above: Result Comment: PERF ORMED BY: [place] [address] PATHOLOGIST [employer] ARASELI SAHU M.D. Performed By: #### C BCNO, A1C WTH eA, LIPID, TSH3 wRFLX #### [facility] [address] Platelets (Bld) [#/Vol] 299 10*3/uL Normal 150-450 [facility] Comment on above: Performed By: #### C BCNO, A1C WTH eA, LIPID, TSH3 wRFLX #### [facility] [address] [place] [address] [place] RBC (Bld) [#/Vol] 4.25 10*6/uL Normal 3.60-5.00 [facility] Comment on above: Performed By: #### C BCNO, A1C WTH eA, LIPID, TSH3 wRFLX #### [facility] [address] [place] [address] [place] WBC (Bld) [#/Vol] 8.0 10*3/uL Normal 3.8-11.6 [facility] Comment on above: Performed By: #### C BCNO, A1C WTH eA, LIPID, TSH3 wRFLX #### [facility] [address] Leukocytes [#/volume] correc jo ann for nucleated erythrocytes in Blood by Automated counOrdered By: Rosemarie Lea on 07-12-2024 WBC corrected for nucl RBC Auto (Bld) [#/Vol] Leukocytes [#/volume] corrected for nucleated erythrocytes in Blood by Automated coun 3.8-11.6 [facility] Lipid Panelon 07-12-2024 Cholesterol [Mass/Vol] 145 mg/dL Normal 140-200 [facility] Comment on above: Result Comment: Chol less than 200 mg/dl low risk Chol 201-239 mg/dl borderline risk Chol 240 mg/dl and greater high risk Performed By: #### C BCNO, A1C WTH eA, LIPID, TSH3 wRFLX #### [address] Cholesterol in HDL [Mass/Vol] 51 mg/dL Normal 23-92 [facility] Comment on above: Result Comment: HDL CHOL ATP-III CLASSIFICATION Cardiovascular Risk HDL > or equal to 60 mg/dL LOW HDL < 40 mg/dL HIGH Performed By: #### C BCNO, A1C WTH eA, LIPID, TSH3 wRFLX #### [facility] [address] Cholesterol.total/Ch olesterol in HDL [Mass ratio] 2.8 {ratio} Normal <5.0 [facility] Comment on above: Performed By: #### C BCNO, A1C WTH eA, LIPID, TSH3 wRFLX #### [facility] [address] LDL Cholesterol,Calculat ed 83 mg/dL Normal 0-100 [facility] Comment on above: Result Comment: LDL ATP III CLASSIFICATION LDL less than 100 mg/dL Optimal LDL 100-129 mg/dL Near or above optimal LDL 130-159 mg/dL Borderline high LDL 160-189 mg/dL High LDL greater than 189 mg/dL Very high Performed By: #### C BCNO, A1C WTH eA, LIPID, TSH3 wRFLX #### [facility] [address] Triglyceride w/Reflex 53 mg/dL Normal 0-149 [facility] Comment on above: Result Comment: TRIG ATP III CLASSIFICATION TRIG less than 150 mg/dL Normal TRIG 150-199 mg/dL Borderline high TRIG 200-500 mg/dL High TRIG greater than 500 mg/dL Very high Standard traceable to the Center for Disease Conrtrol and Prevention (CDC) test method. Performed By: #### C BCNO, A1C WTH eA, LIPID, TSH3 wRFLX #### [facility] [address] VLDL CHOLESTEROL 10 mg/dL Normal [facility] Comment on above: Performed By: #### C BCNO, A1C WTH eA, LIPID, TSH3 wRFLX #### [facility] [address] MCH Auto (RBC) [Entitic mass ]Ordered By: Rosemarie Lea on 07-12-2024 MCH (RBC) [Entitic mass] MCH [Entitic mass] by Automated count 24.7-34.3 [facility] MCHC Auto (RBC) [Mass/Vol]Or dered By: Rosemarie Lea on 07-12-2024 MCHC (RBC) [Mass/Vol] MCHC [Mass/volume] by Automated count 32.0-35.0 [facility] MCV Auto (RBC) [Entitic vol] Ordered By: Rosemarie Lea on 07-12-2024 MCV (RBC) [Entitic vol] MCV [Entitic volume] by Automated count 80-100 [facility] Platelet mean volume Auto (B ld) [Entitic vol]Ordered By: Rosemarie Lea on 07-12-2024 Platelet mean volume (Bld) [Entitic vol] Platelet mean volume [Entitic volume] in Blood by Automated count 6.3-10.7 [facility] Platelets Auto (Bld) [#/Vol] Ordered By: Rosemarie Lea on 07-12-2024 Platelets (Bld) [#/Vol] Platelets [#/volume] in Blood by Automated count 150-450 [facility] RBC Auto (Bld) [#/Vol]Ordere d By: Rosemarie Lea on 07-12-2024 RBC (Bld) [#/Vol] Erythrocytes [#/volu me] in Blood by Automated count 3.60-5.00 [facility] Serum or plasma total choles terol/high density lipoprotein (HDL) cholesterol mass ratOrdered By: Rosemarie Lea on 07-12-2024 Cholesterol.total/Ch olesterol in HDL [Mass ratio] Serum or plasma total cholesterol/high density lipoprotein (HDL) cholesterol mass rat <5.0 [facility] Thyroid Stim Hormone w/Rflxo n 07-12-2024 Thyroid Stim Hormone w/Rflx 1.67 u[iU]/mL Normal 0.45-5.33 [facility] Comment on above: Result Comment: PERF ORMED BY: [facility] [address] [place] [address] PATHOLOGIST [employer] FINISHER ARASELI SAHU M.D. Performed By: #### C BCNO, A1C WTH eA, LIPID, TSH3 wRFLX #### [facility] [address] Thyrotropin [Units/volume] i n Serum or PlasmaOrdered By: Rosemarie Lea on 07-12-2024 TSH Qn Thyrotropin [Units/v olume] in Serum or Plasma 0.45-5.33 [facility] Triglyceride [Mass/volume] i n Serum or PlasmaOrdered By: Rosemarie Lea on 07-12-2024 Triglyceride [Mass/Vol] Triglyceride [Mass/volume] in Serum or Plasma 0-149 [facility] Comment on above: TRIG ATP III CLASSIF ICATIONTRIG less than 150 mg/dL NormalTRIG 150-199 mg/dL Borderline highTRIG 200-500 mg/dL High TRIG greater than 500 mg/dL Very highStandard traceable to the Center for Disease Conrtrol and Prevention (CDC) test method. HbA1c HPLC (Bld) [Mass fract ion]on 05-31-2024 HbA1c (Bld) [Mass fraction] Hemoglobin A1c/Hemoglobin.total in Blood by HPLC [facility] BASIC METABOLIC PANLon 05-20 Anion gap [Moles/Vol] 10 mmol/L Normal 5-15 [facility] Comment on above: Performed By: #### B MP #### [facility] ([id number]) [address], [address] [place] [address] Calcium [Mass/Vol] 9.3 mg/dL [facility] Comment on above: Performed By: #### B MP #### [facility] ([id number]) [address], [address] [place] [address] Chloride [Moles/Vol] 105 mmol/L [facility] Comment on above: Performed By: #### B MP #### [facility] ([id number]) [address], [address] [place] [address] CO2 [Moles/Vol] 26 mmol/L [facility] Comment on above: Performed By: #### B MP #### [facility] ([id number]) [address], [address] [place] [address] Creatinine [Mass/Vol] 0.73 mg/dL [facility] Comment on above: Result Comment: METH OD TRACEABLE TO IDMS STANDARD Performed By: #### B MP #### [facility] ([id number]) [address] [place] [address] GFR/1.73 sq M.predicted among non-blacks MDRD (S/P/Bld) [Vol rate/Area] 89 mL/min/{1.73_m2} Normal >59 [facility] Comment on above: Result Comment: Reported eGFR is based on the CKD-EPI 2020 equation that does not use a race coefficient. Performed By: #### B MP #### [facility] ([id number]) [address] [place] [address] Glucose [Mass/Vol] 121 mg/dL [facility] Comment on above: Performed By: #### B MP #### [facility] ([id number]) [address] [place] [address] Potassium [Moles/Vol] 3.8 mmol/L [facility] Comment on above: Performed By: #### B MP #### [facility] ([id number]) [address], [address] [place] [address] Sodium [Moles/Vol] 141 mmol/L [facility] Comment on above: Performed By: #### B MP #### [facility] ([id number]) [address], [address] [place] [address] Urea nitrogen [Mass/Vol] 19 mg/dL [facility] Comment on above: Performed By: #### B MP #### [facility] ([id number]) [address], [address] [place] [address] No Panel Informationon 05-20 Estimated GFR (Non- 89 mL/min [facility] Cardiac Device Check - In Cl inicon 03-01-2024 [facility] Work Phone: Radiology Study observation (narrative) [facility] Work Phone: Influenza virus B Ag [Presen ce] in Upper respiratory specimen by Rapid immunoassayon 12-22-2023 FLUBV Ag IA.rapid Ql (Nph) Negative [facility] No Panel Informationon 12-21 Influenza Type A (Rapid) Negative [facility] POC SARS CoV-2 Antigen Positive [facility] Basic metabolic 2000 panelon 08-29-2023 Anion gap [Moles/Vol] 11 mmol/L Normal 10-20 [facility] Comment on above: Performed By: #### 2 4321-2 #### EMILE YEE ([id number]) [facility] ([facility]) [address] [place] [address] Calcium [Mass/Vol] 9.5 mg/dL Normal 8.6-10.3 [facility] Comment on above: Performed By: #### 2 4321-2 #### EMILE YEE ([id number]) [facility] ([facility]) [address] [place] [address] Chloride [Moles/Vol] 107 mmol/L Normal 98-107 [facility] Comment on above: Performed By: #### 2 4321-2 #### EMILE YEE ([id number]) [facility] ([facility]) [address] [place] [address] CO2 [Moles/Vol] 29 mmol/L Normal 21-32 [facility] Comment on above: Performed By: #### 2 4321-2 #### EMILE YEE ([id number]) [facility] ([facility]) [address] [place] [address] Creatinine [Mass/Vol] 0.75 mg/dL Normal 0.50-1.05 [facility] Comment on above: Performed By: #### 2 4321-2 #### EMILE YEE ([id number]) [facility] ([facility]) [address] [place] [address] Glomerular filtration rate/1.73 sq M.predicted 87 mL/min/1.73m*2 Normal >60 [facility] Comment on above: Result Comment: Calc ulations of estimated GFR are performed using the 2020 CKD-EPI Study Refit equation without the race variable for the IDMS-Traceable creatinine methods. https://jasn.asnjournals.org/content//ASN.6014999 988 Performed By: #### 2 4321-2 #### EMILE YEE ([id number]) [facility] (EMC) [address] [place] [address] 37804 Glucose [Mass/Vol] 105 mg/dL High 74-99 [facility] Comment on above: Performed By: #### 2 4321-2 #### PONCEIBRAMONA YEE ([id number]) [facility] ([facility]) [address] [place] [address] 34826 Potassium [Moles/Vol] 4.4 mmol/L Normal 3.5-5.3 [facility] Comment on above: Performed By: #### 2 4321-2 #### PONCEIBRAMONA YEE ([id number]) [facility] ([facility]C) [address] [place] [address] 21769 Sodium [Moles/Vol] 143 mmol/L Normal 136-145 [facility] Comment on above: Performed By: #### 2 4321-2 #### EMILE YEE ([id number]) [facility] ([facility]C) [address] [place] [address] 17425 Urea nitrogen [Mass/Vol] 19 mg/dL Normal 6-23 [facility] Comment on above: Performed By: #### 2 4321-2 #### PONCEIBRAMONA YEE ([id number]) [facility] (EMC) [address] [place] [address] 61422 ECG 12 lead (Clinic Performe d)on 08-29-2023 See scan [facility] Work Phone: Echocardiogramon 11-22-[address], Suite [facility], [place] [address] TRANSTHORACIC ECHOCARDIOGRAM REPORT Patient Name: NYA BELL Reading Physician: [id number] Lupe Rosado MD, [facility] Study Date: 11/22/2022 Referring LUPE ROSADO Physician: MRN/PID: [id number] PCP: Anupam Pereira Accession/Order#: [id number] [facility] Location: Date of : 1955 Fellow: Gender: F Nurse: Admit Date: Driver License Reviewing Officer: Ashlyn Cam RDCS, RVT Height: 152.40 cm CC Report to: Weight: 91.17 kg Study Type: Echocardiogram BSA: 1.87 m2 Blood Pressure: 134 /62 mmHg Diagnosis/ICD: I50.22-Chronic systolic (congestive) heart failure (CHF); I42.9-Cardiomyopathy, unspecified Indication: AICD, WALDEMAR, Obesity Procedure/CPT: Echo Complete w Full Doppler-[id number] Study Detail: The following Echo studies were [...] 0.8 m/s (0.6-0.9m/s) PV Max P.3 mmHg [id number] Lupe Rosado MD, FAC Electronically signed on 11/22/2022 at 1:01:56 PM Final Normal [facility] Office Visit (Cardiology)on 10-09-2022 Follow-up visit Diagnoses/Problems [...] Per Dr. Lupe Rosado MD, schedule at [facility] for echo Follow up in 6 [...] scheduled. We will arrange for that at [facility]. Her weight is unchanged from [...] AICD, device is assessed by electrophysiology at [facility] 3?cardiac catheterization 7 years ago at [facility] was normal 4? fatigue of unknown [...] Recorded: 09Oct2022 10:59AM Heart Rate72, L Radial Lbuuofmn083, LUE, Sitting Zhhmbjlcg66, LUE, Sitting Height5 ft Vjwlic410 lb BMI Cznrbitged53.26 kg/m2 BSA Calculated1.87 Tobacco Useb) No PHQ-2 [...] Cardiovascular: c (more content not included)... Normal [facility] Tobacco Screening.on 023 Fall risk assessment a) No falls within the last year [facility] [address] DO Work Phone: Tobacco use status CPHS b) No [facility] [address] DO Work Phone: Tobacco Screening. Yes [facility] [address] DO Work Phone: CBC AUTO DIFFon 05-21-2022 BASO # 0.0 103/ul Normal 0.0-0.1 [facility] Comment on above: Performed By: #### C BC ####[facility] [address] [place] [address]Dr. Phillip Mazariegos Basophils/100 WBC (Bld) 0.4 % Normal 0.2-2.0 [facility] Comment on above: Performed By: #### C BC ####[facility] [address] [place], [place] [address]Dr. Phillip Mazariegos EO # 0.2 103/ul Normal 0.0-0.7 [facility] Comment on above: Performed By: #### C BC ####[facility] Cy[address] [place], [place] [address]Dr. Phillip Mazariegos Eosinophils/100 WBC (Bld) 2.0 % Normal 0.9-7.0 [facility] Comment on above: Performed By: #### C BC ####[facility] [address] [place], [place] [address]Dr. Phillip Mazariegos Erythrocyte distribution width (RBC) [Ratio] 13.8 % Normal 11.0-15.0 [facility] Comment on above: Performed By: #### C BC ####[facility] [address] [place], [place] [address]Dr. Phillip Mazariegos Hematocrit (Bld) [Volume fraction] 36.3 % Normal 36.0-48.0 [facility] Comment on above: Performed By: #### C BC ####[facility] [address] [place], [place] [address]Dr. Phillip Mazariegos Hemoglobin (Bld) [Mass/Vol] 12.1 g/dL Normal 12.0-16.0 [facility] Comment on above: Performed By: #### C BC ####[facility] [address] [place], [place] [address]Dr. Phillip Mazariegos IG # 0.02 10e3/ul Normal 0.00-0.03 [facility] Comment on above: Performed By: #### C BC ####[facility] [address] [place], [place] [address]Dr. Phillip Mazariegos IG % 0.3 % Normal 0.0-0.5 [facility] Comment on above: Performed By: #### C BC ####[facility] [address] [place] [id number]. Phillip Yair LYMPH # 1.9 103/ul Normal 1.2-3.8 [facility] Comment on above: Performed By: #### C BC ####[facility] Odwh[address]oktx[address] [place] [id number]. Phillip Yair Lymphocytes/100 WBC (Bld) 25.7 % Normal 20.5-60.0 [facility] Comment on above: Performed By: #### C BC ####[facility] [address] [place] [address]Dr. Rerebrent Mazariegos MANUAL DIFF REQ NO Normal [facility] Comment on above: Performed By: #### C BC ####[facility] [address] [place] [address]Dr. Phillip Yair MCH (RBC) [Entitic mass] 28.7 pg Normal 26.7-34.0 [facility] Comment on above: Performed By: #### C BC ####[facility] [address] [place] [address]Dr. Phillip Yair MCHC (RBC) [Mass/Vol] 33.3 g/dL Normal 29.9-35.2 [facility] Comment on above: Performed By: #### C BC ####[facility] T[address]oll[address] [place] [address]Dr. Rerebrent Mazariegos MCV (RBC) [Entitic vol] 86.0 fL Normal 81.0-99.0 [facility] Comment on above: Performed By: #### C BC ####[facility] [address] [place] [address]Dr. Rerebrent Mazariegos MONO # 0.6 103/ul Normal 0.3-0.8 [facility] Comment on above: Performed By: #### C BC ####[facility] [address]wh[address]ipq[address] [place] [address]Dr. Rerebrent Mazariegos Monocytes/100 WBC (Bld) 7.8 % Normal 1.7-12.0 [facility] Comment on above: Performed By: #### C BC ####[facility] [address]ra[address] [place] [id number]. Phillip Mazariegos NEUT # 4.7 103/ul Normal 1.4-6.5 [facility] Comment on above: Performed By: #### C BC ####[facility] [address] [place] [address]Dr. Phillip Mazariegos Neutrophils/100 WBC (Bld) 63.8 % Normal 43.0-75.0 [facility] Comment on above: Performed By: #### C BC ####[facility] [address] [place] [address]Dr. Phillip Yair Platelet mean volume (Bld) [Entitic vol] 9.5 fL Normal 9.5-13.5 [facility] Comment on above: Performed By: #### C BC ####[facility] F[address]uzaf[address] [place] [address]Dr. Phillip Yair PLT 269 103/ul Normal 150-450 [facility] Comment on above: Performed By: #### C BC ####[facility] [address]xmjm[address] [place] [address]Dr. Rerebrent Mazariegos RBC 4.22 106/ul Normal 4.20-5.40 [facility] Comment on above: Performed By: #### C BC ####[facility] [address] [place] [address]Dr. Phillip Yair WBC 7.4 103/ul Normal 4.0-11.0 [facility] Comment on above: Performed By: #### C BC ####[facility] [address] [place] [address]DrBeau Mazariegos FERRITINon 05-21-2022 Ferritin [Mass/Vol] 212.0 ng/mL Normal 8.0-252.0 [facility] Comment on above: Performed By: #### F ERR, VITB12, VITAD #### [facility] [address] [place] [id number] Phillip Mazariegos VITAMIN B12on 05-21-2022 Cobalamin (Vitamin B12) [Mass/Vol] 698.0 pg/mL Normal 193.0-986.0 [facility] Comment on above: Performed By: #### F ERR, VITB12, VITAD #### [facility] [address] [place] [address] [address] Phillip Mazariegos VITAMIN D 25 OHon 05-21-2022 VIT D 25-OH 28.1 ng/mL Normal [facility] Comment on above: Performed By: #### F ERR, VITB12, VITAD ####[facility] [address] [place] [address]Dr. Phillip Mazariegos VIT D RANGES SEE BELOW Normal [facility] Comment on above: Result Comment: <20 ng/mL Vit D deficient 20 - <30 ng/mL Vit D insufficient 30 - 100 ng/mL Vit D sufficient >100 ng/mL Potential Toxicity Performed By: #### F ERR, VITB12, VITAD ####[facility] [address] [place] [address]Dr. Phillip Mazariegos PROF CHEM 8 (BAS METB)on Anion gap [Moles/Vol] 10.8 mmol/L Normal [facility] Comment on above: Performed By: #### B MP ####[facility] [address]fl[address] [place] [address]DrBeau Mazariegos Calcium [Mass/Vol] 9.1 mg/dL Normal 8.5-10.1 [facility] Comment on above: Performed By: #### B MP ####[facility] [address]fwmobfd12[address] [place] [address]DrBeau Mazariegos Chloride [Moles/Vol] 108 mmol/L Critically high 98-107 [facility] Comment on above: Performed By: #### B MP ####[facility] Aih[address]ffceiq[address] [place] [address]DrBeau Mazariegos CO2 [Moles/Vol] 29.6 mmol/L Normal 21.0-32.[address] [facility] Comment on above: Performed By: #### B MP ####[facility] S[address]upietqe[address] [place] [address]DrBeau Mazariegos Creatinine [Mass/Vol] 0.85 mg/dL Normal 0.55-1.02 [facility] Comment on above: Performed By: #### B MP ####[facility] [address]frmbc[address]ve[address] [place] [id number]. Phillip Yair EGFR-AF CROATIAN >60 Normal >=60 [facility] Comment on above: Performed By: #### B MP ####[facility] [address] [place] [phone]. Phillip Yair EGFR-NON AF CROATIAN >60 Normal >=60 [facility] Comment on above: Performed By: #### B MP ####[facility] Occqtgyrix[address] [place] [phone]. Phillip Mazariegos Glucose [Mass/Vol] 90 mg/dL Normal 74-106 [facility] Comment on above: Performed By: #### B MP ####[facility] [address]fr[address] [place] [address]Dr. Phillip Mazariegos Potassium [Moles/Vol] 4.4 mmol/L Normal 3.5-5.1 [facility] Comment on above: Performed By: #### B MP ####[facility] Z[address] [place], [place] [address]Dr. Phillip Mazariegos Sodium [Moles/Vol] 144 mmol/L Normal 136-145 [facility] Comment on above: Performed By: #### B MP ####[facility] [address]ucdfpqsr[address] [place] [id number]. Phillip Mazariegos Urea nitrogen [Mass/Vol] 24.0 mg/dL Critically high 7.0-18.0 [facility] Comment on above: Performed By: #### B MP ####[facility] Vmxogxrkfr[address] [place] [id number]. Phillip Mazariegos Urea nitrogen/Creatinine [Mass ratio] 28.2 mg/mg Normal [facility] Comment on above: Performed By: #### B MP ####[facility] [address] [place], [place] [address]Dr. Phillip Mazariegos Office Visit (Cardiology)on 04-17-2022 Follow-up [...] Metabolic Panel; Status:Active - Retrospective Authorization; Requested for:[id number]; Echocardiogram; Status:Hold For - Scheduling,Retrospective Authorization; Requested for:[id number]; Class 2 obesity with body mass index (BMI) of 39.0 to 39.9 in adult Healthy Weight Tips; Status:Complete - Retrospective Authorization; Done: [id number] Some eating tips that can help you lose weight.; Status:Complete - Retrospective Authorization; Done: [id number] Patient Instructions Please bring all medicines, vitamins, [...] AICD, device is assessed by electrophysiology at [facility] 3?cardiac catheterization 7 years ago at [facility] was normal 4?extreme fatigue of unknown [...] negative for complaint. Vitals Vital Signs Recorded: [id number] 11:16AM Heart Rate62, R Radial Dacvbvvh207, LUE, Sitting Rcunhywhj12, LUE, Sitting Height5 ft Waqrak258 lb 5 oz BMI Iejnusszxc04.32 kg/m2 BSA Calculated1.87 Tobacco Useb) No Falls [...] is normal (more content not included)... Normal [facility] Tobacco Screening.on Fall risk assessment a) No falls within the last year [facility] [place] [address] DO Work Phone: Tobacco use status CPHS b) No [facility] [address] DO Work Phone: XR LSPINE [...] METB)on Anion gap [Moles/Vol] 12.0 mmol/L Normal [facility] Comment on above: Performed By: #### B MP #### [facility] [address] [place] [address] [address] Phillip Mazariegos Calcium [Mass/Vol] 9.1 mg/dL Normal 8.5-10.1 [facility] Comment on above: Performed By: #### B MP #### [facility] [address] [place], [place] [address] Dr. Phillip Mazariegos Chloride [Moles/Vol] 107 mmol/L Normal 98-107 [facility] Comment on above: Performed By: #### B MP #### [facility] [address] [place] [address] [address] Phillip Mazariegos CO2 [Moles/Vol] 27.0 mmol/L Normal 21.0-32.[address] [facility] Comment on above: Performed By: #### B MP #### [facility] [address] [place] [address] [address] Phillip Mazariegos Creatinine [Mass/Vol] 0.89 mg/dL Normal 0.55-1.02 [facility] Comment on above: Performed By: #### B MP #### [facility] [address] [place] [address] [address] Phillip Mazariegos EGFR-AF CROATIAN >60 Normal >=[address] [facility] Comment on above: Performed By: #### B MP #### [facility] [address] [place] [address] [address] Phillip Mazariegos EGFR-NON AF CROATIAN >60 Normal >=60 [facility] Comment on above: Performed By: #### B MP #### [facility] [address] [place] [address] [address] Phillip Mazariegos Glucose [Mass/Vol] 109 mg/dL Critically high 74-106 [facility] Comment on above: Performed By: #### B MP #### [facility] [address] [place] [address] [address] Phillip Mazariegos Potassium [Moles/Vol] 4.0 mmol/L Normal 3.5-5.1 [facility] Comment on above: Performed By: #### B MP #### [facility] [address] [place] [address] [address] Phillip Mazariegos Sodium [Moles/Vol] 142 mmol/L Normal 136-145 [facility] Comment on above: Performed By: #### B MP #### [facility] [address] [place] [address] [address] Phillip Mazariegos Urea nitrogen [Mass/Vol] 19.0 mg/dL Critically high 7.0-18.0 [facility] Comment on above: Performed By: #### B MP #### [facility] [address] [place] [address] [address] Phillip Mazariegos Urea nitrogen/Creatinine [Mass ratio] 21.3 mg/mg Normal [facility] Comment on above: Performed By: #### B #### [facility] [address] [place] [address] Dr. Phillip Mazariegos Tobacco Screening.on 022 Adult depression screening assessment No [facility] [place] 250 DO Work Phone: Adult depression screening assessment Yes [facility] [place] 250 DO Work Phone: Fall risk assessment a) No falls within the last year [facility] [place] 250 DO Work Phone: Tobacco use status CP b) No [facility] [place] 250 DO Work Phone: Tobacco Screening. 3-Nearly every day [facility] [place] 250 DO Work Phone: Tobacco Screening. 0-Not at all [facility] [place] 250 DO Work Phone: Tobacco Screening. Very Difficult [facility] [place] 250 DO Work Phone: CULTURE URINEon 09-09-2021 [...] Trimethoprim/Sulfamethoxaz ole <=20 S F Normal [facility] Comment on above: Performed By: #### U RCX ####[facility] [address] [place], [place] [address]Dr. Phillip Mazariegos CBC AUTO DIFFon 09-07-2021 BASO # 0.0 103/ul Normal 0.0-0.1 [facility] Comment on above: Performed By: #### C BC #### [facility] [address] [place] [address] [address] Phillip Mazariegos Basophils/100 WBC (Bld) 0.4 % Normal 0.2-2.0 [facility] Comment on above: Performed By: #### C BC #### [facility] [address] [place] [address] [address] Phillip Mazariegos EO # 0.1 103/ul Normal 0.0-0.7 [facility] Comment on above: Performed By: #### C BC #### [facility] [address] [place] [address] [address] Phillip Mazariegos Eosinophils/100 WBC (Bld) 1.9 % Normal 0.9-7.0 [facility] Comment on above: Performed By: #### C BC #### [facility] [address] [place] [address] [address] Phillip Mazariegos Erythrocyte distribution width (RBC) [Ratio] 13.4 % Normal 11.0-15.0 [facility] Comment on above: Performed By: #### C BC #### [facility] [address] [place] [address] [address] Phillip Mazariegos Hematocrit (Bld) [Volume fraction] 39.6 % Normal 36.0-48.0 [facility] Comment on above: Performed By: #### C BC #### [facility] [address] [place] [address] Dr. Phillip Mazariegos Hemoglobin (Bld) [Mass/Vol] 13.0 g/dL Normal 12.0-16.0 [facility] Comment on above: Performed By: #### C BC #### [facility] [address] [place] [address] Dr. Phillip Mazariegos IG # 0.04 10e3/ul Critically high 0.00-0.03 [facility] Comment on above: Performed By: #### C BC #### [facility] [address] [place] [address] Dr. Phillip Mazariegos IG % 0.5 % Normal 0.0-0.5 [facility] Comment on above: Performed By: #### C BC #### [facility] [address] [place] [address] Dr. Phillip Mazariegos LYMPH # 1.9 103/ul Normal 1.2-3.8 [facility] Comment on above: Performed By: #### C BC #### [facility] [address] [place] [address] Dr. Phillip Mazariegos Lymphocytes/100 WBC (Bld) 26.2 % Normal 20.5-60.0 [facility] Comment on above: Performed By: #### C BC #### [facility] [address] [place] [address] Dr. Phillip Mazariegos MANUAL DIFF REQ NO Normal [facility] Comment on above: Performed By: #### C BC #### [facility] [address] [place] [address] Dr. Phillip Mazariegos MCH (RBC) [Entitic mass] 28.8 pg Normal 26.7-34.0 [facility] Comment on above: Performed By: #### C BC #### [facility] [address] [place] [address] Dr. Phillip Mazariegos MCHC (RBC) [Mass/Vol] 32.8 g/dL Normal 29.9-35.2 [facility] Comment on above: Performed By: #### C BC #### [facility] [address] [place] [address] [address] Phillip Mazariegos MCV (RBC) [Entitic vol] 87.8 fL Normal 81.0-99.0 [facility] Comment on above: Performed By: #### C BC #### [facility] [address] [place] [address] Dr. Phillip Mazariegos MONO # 0.5 103/ul Normal 0.3-0.8 [facility] Comment on above: Performed By: #### C BC #### [facility] [address] [place] [address] Dr. Phillip Mazariegos Monocytes/100 WBC (Bld) 6.9 % Normal 1.7-12.0 [facility] Comment on above: Performed By: #### C BC #### [facility] [address] [place] [address] Dr. Phillip Mazariegos NEUT # 4.7 103/ul Normal 1.4-6.5 [facility] Comment on above: Performed By: #### C BC #### [facility] [address] [place] [address] Dr. Phillip Mazariegos Neutrophils/100 WBC (Bld) 64.1 % Normal 43.0-75.0 [facility] Comment on above: Performed By: #### C BC #### [facility] [address] [place] [address] Dr. Phillip Mazariegos Platelet mean volume (Bld) [Entitic vol] 9.6 fL Normal 9.5-13.5 [facility] Comment on above: Performed By: #### C BC #### [facility] [address] [place] [address] Dr. Phillip Mazariegos PLT 298 103/ul Normal 150-450 [facility] Comment on above: Performed By: #### C BC #### [facility] [address] [place] [address] Dr. Phillip Mazariegos RBC 4.51 106/ul Normal 4.20-5.40 [facility] Comment on above: Performed By: #### C BC #### [facility] [address] [place] [address] Dr. Phillip Mazariegos WBC 7.3 103/ul Normal 4.0-11.0 [facility] Comment on above: Performed By: #### C BC #### [facility] [address] [place] [address] Dr. Phillip Mazariegos PROF CHEM 8 (BAS METB)on Anion gap [Moles/Vol] 11.7 mmol/L Normal [facility] Comment on above: Performed By: #### T SH, BMP #### [facility] [address] [place] [address] Dr. Phillip Mazariegos Calcium [Mass/Vol] 8.8 mg/dL Normal 8.5-10.1 [facility] Comment on above: Performed By: #### T SH, BMP #### [facility] [address] [place] [address] Dr. Phillip Mazariegos Chloride [Moles/Vol] 103 mmol/L Normal 98-107 [facility] Comment on above: Performed By: #### T SH, BMP #### [facility] [address] [place] [address] Dr. Phillip Mazariegos CO2 [Moles/Vol] 28.0 mmol/L Normal 21.0-32.0 [facility] Comment on above: Performed By: #### T SH, BMP #### [facility] [address] [place] [address] Dr. Phillip Mazariegos Creatinine [Mass/Vol] 1.02 mg/dL Normal 0.55-1.02 [facility] Comment on above: Performed By: #### T SH, BMP #### [facility] [address] [place] [address] Dr. Phillip Mazariegos EGFR-AF CROATIAN >60 Normal >=60 [facility] Comment on above: Performed By: #### T SH, BMP #### [facility] [address] [place] [address] Dr. Phillip Mazariegos EGFR-NON AF CROATIAN 54 mL/min/1.73m2 Critically low >=60 [facility] Comment on above: Performed By: #### T SH, BMP #### [facility] [address] [place] [address] Dr. Phillip Mazariegos Glucose [Mass/Vol] 119 mg/dL Critically high 74-106 [facility] Comment on above: Performed By: #### T SH, BMP #### [facility] [address] [place] [address] Dr. Phillip Mazariegos Potassium [Moles/Vol] 3.7 mmol/L Normal 3.5-5.1 [facility] Comment on above: Performed By: #### T SH, BMP #### [facility] [address] [place] [address] Dr. Phillip Mazariegos Sodium [Moles/Vol] 139 mmol/L Normal 136-145 [facility] Comment on above: Performed By: #### T KOSTA, BMP #### [facility] Laboratory [address] [place] [address] Dr. Phillip Mazariegos Urea nitrogen [Mass/Vol] 19.0 mg/dL Critically high 7.0-18.0 [facility] Comment on above: Performed By: #### T KOSTA, BMP #### [facility] Laboratory [address] [place] [address] Dr. Phillip Mazariegos Urea nitrogen/Creatinine [Mass ratio] 18.6 mg/mg Normal [facility] Comment on above: Performed By: #### T KOSTA, BMP #### [facility] Laboratory [address] [place] [address] Dr. Phillip Mazariegos TSHon 09-07-2021 TSH 3.616 uIU/mL Normal 0.358-3.740 [facility] Comment on above: Performed By: #### T KOSTA, BMP #### [facility] Laboratory [address] [place] [address] Dr. Phillip Mazariegos TSH RANGE SEE BELOW Normal [facility] Comment on above: Result Comment: <0.3 4 UIU/ml HYPERTHYROID 0.34-5.60 UIU/ml EUTHYROID >5.60 UIU/ml HYPOTHYROID Performed By: #### T KOSTA, BMP #### [facility] Laboratory [address] [place] [address] Dr. Phillip Mazariegos UA (CLEAN/CATCH) ROASTERMAN/MICRO I F IND.on 09-07-2021 Bilirubin Ql (U) Negative Normal NEGATIVE [facility] Comment on above: Performed By: #### U ACSIND ####[facility] [address] [place], [place] [address]Dr. Phillip Mazariegos Clarity (U) SL CLOUDY Abnormal CLEAR [facility] Comment on above: Performed By: #### U ACSIND ####[facility] [address] [place], [place] [address]Dr. Phillip Mazariegos Color (U) YELLOW Normal YELLOW [facility] Comment on above: Performed By: #### U ACSIND ####[facility] [address] [place], [place] [address]Dr. Phillip Mazariegos Glucose Ql (U) Negative Normal NEGATIVE [facility] Comment on above: Performed By: #### U ACSIND ####[facility] [address] [place], [place] [address]Dr. Phillip Mazariegos Hemoglobin Ql (U) Negative Normal NEGATIVE [facility] Comment on above: Performed By: #### U ACSIND ####[facility] [address] [place], [place] [address]Dr. Phillip Mazariegos Ketones Ql (U) Negative Normal NEGATIVE [facility] Comment on above: Performed By: #### U ACSIND ####[facility] [address] [place], [place] [address]Dr. Phillip Mazariegos LEUKOCYTES Negative Normal NEGATIVE [facility] Comment on above: Performed By: #### U ACSIND ####[facility] [address] [place], [place] [address]Dr. Phillip Mazariegos Nitrite Ql (U) Negative Normal NEGATIVE [facility] Comment on above: Performed By: #### U ACSIND ####[facility] [address] [place], [place] [address]Dr. Phillip Mazariegos pH (U) 6.0 [pH] Normal 5-9 [facility] Comment on above: Performed By: #### U ACSIND ####[facility] [address] [place], [place] [address]Dr. Phillip Mazariegos SPEC GRAVITY >=1.030 Abnormal 1.005-<=1.0 25 [facility] Comment on above: Performed By: #### U ACSIND ####[facility] [address] [place] [address]Dr. Phillip Mazariegos UA PROTEIN Negative Normal NEGATIVE/ TRACE [facility] Comment on above: Performed By: #### U ACSIND ####[facility] [address] [address]Dr. Phillip Mazariegos UR MICRO IND INDICATED Normal [facility] Comment on above: Performed By: #### U ACSIND ####[facility] [address] [address]Dr. Phillip Mazariegos Urobilinogen Qn (U) 0.2 {Trish'U}/dL Normal 0.2 - 1. 0 [facility] Comment on above: Performed By: #### U ACSIND ####[facility] [address] [address]Dr. Phillip Mazariegos URINE MICROSCOPIC ONLYon BACTERIA SMALL Abnormal NONE SEEN [facility] Comment on above: Performed By: #### U MICRO #### [facility] Laboratory [address] [place] [address] Dr. Phillip Mazariegos Bacteria identified Cx Nom (U) INDICATED Normal [facility] Comment on above: Performed By: #### U MICRO #### [facility] Laboratory [address] [place] [address] Dr. Phillip Mazariegos CAST NONE SEEN Normal NONE SEEN [facility] Comment on above: Performed By: #### U MICRO #### [facility] Laboratory [address] [place] [address] Dr. Phillip Mazariegos Crystals LM Nom (Urine sed) NONE SEEN Normal NONE SEEN [facility] Comment on above: Performed By: #### U MICRO #### [facility] Laboratory [address] [place] [address] Dr. Phillip Mazariegos Epithelial cells LM Ql (Urine sed) FEW Abnormal NONE SEEN /RARE [facility] Comment on above: Performed By: #### U MICRO #### [facility] Laboratory [address] [place] [address] Dr. Phillip Mazariegos MUCOUS TRACE Abnormal NONE SEEN [facility] Comment on above: Performed By: #### U MICRO #### [facility] Laboratory [address] [address] [address] Phillip Mazariegos RBC NONE SEEN Abnormal 0-2 [facility] Comment on above: Performed By: #### U MICRO #### [facility] Laboratory [id number] Phillip Mazariegos WBC 0-2 Abnormal NONE SEEN [facility] Comment on above: Performed By: #### U MICRO #### [facility] Laboratory [id number] Phillip Mazariegos XR CHEST 2 Von [...] ELAINA ARRIAZA Date: 2021-09-07 15:03 Normal [facility] Radiologyon 08-28-2021 XR Chest 2 Views Normal [facility] 320 DO Work Phone: Laboratory - Chemistry and C hemistry - challengeon 08-02-2021 Anion gap [Moles/Vol] 11 mmol/L 10 - 20 [facility] 250 DO Work Phone: Calcium [Mass/Vol] 9.3 mg/dL 8.6 - 10.3 [facility] 250 DO Work Phone: [phone] Chloride [Moles/Vol] 107 mmol/L 98 - 107 [facility] 250 DO Work Phone: CO2 [Moles/Vol] 27 mmol/L 21 - 32 [facility] 250 DO Work Phone: Creatinine [Mass/Vol] 0.79 mg/dL See Below [facility] 250 DO Work Phone: Comment on above: Reference Range: 0.5 0 - 1.05 Glucose [Mass/Vol] 98 mg/dL 74 - 99 [facility] Maryana Plummer DO Work Phone: Potassium [Moles/Vol] 3.7 mmol/L 3.5 - 5.3 [facility] Maryana Plummer DO Work Phone: [phone] Sodium [Moles/Vol] 141 mmol/L 136 - 145 [facility] Work Phone: Urea nitrogen [Mass/Vol] 20 mg/dL 6 - 23 [facility] Work Phone: Laboratory - Coagulationon 0 08-02-2021 aPTT Coag (PPP) [Time] 32 s 26 - 39 [facility] Marynaa Plummer DO Work Phone: [phone] Comment on above: THE APTT IS NO LONGE R USED FOR MONITORING UNFRACTIONATED HEPARIN THERAPY. FOR MONITORING HEPARIN THERAPY, USE THE HEPARIN ASSAY. INR Coag (PPP) [Relative time] 1.0 {INR} 0.9 - 1.1 [facility] Work Phone: PT Coag (PPP) [Time] 11.9 s 9.8 - 13.4 [facility] Maryana Plummer DO Work Phone: [phone] Laboratory - Hematology and Cell countson 08-02-2021 Erythrocyte distribution width (RBC) [Ratio] 13.3 % See Below [facility] Maryana Plummer DO Work Phone: [phone] Comment on above: Reference Range: 11. 5 - 14.5 Hematocrit (Bld) [Volume fraction] 37.9 % See Below [facility] Maryana wi Kavitha DO Work Phone: Comment on above: Reference Range: 36. 0 - 46.0 Hemoglobin (Bld) [Mass/Vol] 12.7 g/dL See Below [facility] DO Work Phone: [phone] Comment on above: Reference Range: 12. 0 - 16.0 MCHC (RBC) [Mass/Vol] 33.5 g/dL See Below [facility] 250 DO Work Phone: [phone] Comment on above: Reference Range: 32. 0 - 36.0 MCV (RBC) [Entitic vol] 88 fL 80 - 100 [facility] 250 DO Work Phone: [phone] Platelets (Bld) [#/Vol] 168 10*3/uL 150 - 450 [facility] Maryana villarreal 250 DO Work Phone: [phone] RBC (Bld) [#/Vol] 4.33 {x10E12/L} See Below [facility] [place] [facility] DO Work Phone: [phone] Comment on above: Reference Range: 4.0 0 - 5.20 WBC (Bld) [#/Vol] 7.3 10*3/uL 4.4 - 11.3 [facility] 250 DO Work Phone: [phone] No Panel Informationon 08-02 [email or web address] 1:8080 [email or web address]?R etrieveTestByDateTime?Judy ysoPS=[id number]&Date=&Time=07%3a58%3a03%3a 00&TestType=ECG&Site=11&Ou tputType=PDF&Ext=PDF [facility] 250 DO Work Phone: [phone] Atrial-sensed ventricular-paced rhythm [facility] 250 DO Work Phone: [phone] Abnormal [facility] 250 DO Work Phone: [phone] [facility] 250 DO Work Phone: [phone] [facility] 250 DO Work Phone: [phone] 1 [facility] 250 DO Work Phone: [phone] [facility] 250 DO Work Phone: [phone] [facility] 250 DO Work Phone: [phone] [facility] 250 DO Work Phone: [phone] [facility] 250 DO Work Phone: [phone] [facility] 250 DO Work Phone: [phone] [facility] 250 DO Work Phone: [phone] [facility] 250 DO Work Phone: [phone] [facility] 250 DO Work Phone: [phone] [facility] 250 DO Work Phone: [phone] [facility] 250 DO Work Phone: [phone] [facility] 250 DO Work Phone: [phone] {mL/min/1.73m2} >90 [facility] 250 DO Work Phone: [phone] Comment on above: CALCULATIONS OF PHUC MATED GFR ARE PERFORMED USING THE 2020 CKD-EPI STUDY REFIT EQUATION WITHOUT THE RACE VARIABLE FOR THE IDMS-TRACEABLE CREATININE METHODS.https://jasn.asnjournals.org/content/early/ASN .8176314780 Radiologyon 08-02-2021 XR Chest 2 Views Normal [facility] 250 DO Work Phone: [phone] COVID-19 SOFIAOrdered By: Awais Mayes on 07-31-2021 SARS-CoV+SARS-CoV-2 (COVID-19) Ag IA.rapid Ql (Resp) Negative Negative [facility] Comment on above: This is a duplicate Gretchen SARS Antigen (RUSTAM) result to be used for statistical tracking purpose only. No Panel InformationOrdered By: Daphne Mayes on 07-31-2021 SARS Antigen (LFIA) [facility] Basophils Auto (Bld) [#/Vol] Ordered By: Daphne Mayes on 07-18-2021 Basophils (Bld) [#/Vol] 0.0 10*3/uL 0.0-0.2 [facility] Basophils/100 WBC Auto (Bld) Ordered By: Daphne Mayes on 07-18-2021 Basophils/100 WBC (Bld) 0.5 % [facility] Blood hemoglobin measurement (mass/volume)Ordered By: Daphne Mayes on 07-18-2021 Hemoglobin (Bld) [Mass/Vol] 13.2 g/dL 11.8-15.4 [facility] Blood leukocytes automated c ount (number/volume)Ordered By: Daphne Mayes on 07-18-2021 WBC (Bld) [#/Vol] 6.3 10*3/uL 4.5-11.0 [facility] COVID-19 Positive/NegativeOr dered By: Daphne Mayes on 07-18-2021 SARS-CoV-2 (COVID-19) N gene MELL+probe Ql (Resp) Positive Negative [facility] Comment on above: Positive results ying l only be called to Providers for the following groups of patients: Pre-Surgical Testing, Emergency Room, and Inpatients.Testing for SARS-CoV-2 by RT-PCRThis test was developed and its performance characteristics determined by [employer] ([employer]) and validated at the [facility]. This test has not been FDA [...] on 07-18-2021 Creatinine [Mass/Vol] 0.76 mg/dL 0.44-1.03 [facility] Eosinophils Auto (Bld) [#/Vo l]Ordered By: Daphne Mayes on 07-18-2021 Eosinophils (Bld) [#/Vol] 0.2 10*3/uL 0.0-0.45 [facility] Eosinophils/100 WBC Auto (Bl d)Ordered By: Daphne Mayes on 07-18-2021 Eosinophils/100 WBC (Bld) 2.7 % [facility] Erythrocyte distribution wid th Auto (RBC) [Ratio]Ordered By: Daphne Mayes on 07-18-2021 Erythrocyte distribution width (RBC) [Ratio] 14.1 % 11.9-15.3 [facility] Estimated glomerular filtrat ion rate (GFR) non- AmericanOrdered By: Daphne Mayes on 07-18-2021 GFR/1.73 sq M.predicted among non-blacks MDRD (S/P/Bld) [Vol rate/Area] > 60 mL/Min [facility] Hematocrit Auto (Bld) [Volum e fraction]Ordered By: Daphne Mayes on 07-18-2021 Hematocrit (Bld) [Volume fraction] 39.3 % 34.0-46.4 [facility] Laboratory - CoagulationOrde red By: Daphne Mayes on 07-18-2021 PT Coag (PPP) [Time] 12.7 s 9.0-12.9 [facility] Laboratory - Hematology and Cell countsOrdered By: Daphne Mayes on 07-18-2021 Nucleated RBC/100 WBC (Bld) [Ratio] 0.2 % 0-0.5 [facility] Lymphocytes Auto (Bld) [#/Vo l]Ordered By: Daphne Mayes on 07-18-2021 Lymphocytes (Bld) [#/Vol] 1.8 10*3/uL 1.00-4.8 [facility] Lymphocytes/100 WBC Auto (Bl d)Ordered By: Daphne Mayes on 07-18-2021 Lymphocytes/100 WBC (Bld) 28.3 % [facility] MCH Auto (RBC) [Entitic mass ]Ordered By: Daphne Mayes on 07-18-2021 MCH (RBC) [Entitic mass] 29.3 pg 24.7-34.3 [facility] MCHC Auto (RBC) [Mass/Vol]Or dered By: Daphne Mayes on 07-18-2021 MCHC (RBC) [Mass/Vol] 33.5 g/dL 32.0-35.0 [facility] MCV Auto (RBC) [Entitic vol] Ordered By: Daphne Mayes on 07-18-2021 MCV (RBC) [Entitic vol] 87.5 fL 80-100 [facility] Monocytes Auto (Bld) [#/Vol] Ordered By: Daphne Mayes on 07-18-2021 Monocytes (Bld) [#/Vol] 0.5 10*3/uL 0.0-0.8 [facility] Monocytes/100 WBC Auto (Bld) Ordered By: Daphne Mayes on 07-18-2021 Monocytes/100 WBC (Bld) 7.5 % [facility] Neutrophils Auto (Bld) [#/Vo l]Ordered By: Daphne Mayes on 07-18-2021 Neutrophils (Bld) [#/Vol] 3.9 10*3/uL 1.8-7.7 [facility] Neutrophils/100 WBC Auto (Bl d)Ordered By: Daphne Mayes on 07-18-2021 Neutrophils/100 WBC (Bld) 61.0 % [facility] No Panel InformationOrdered By: Daphne Mayes on 07-18-2021 Estimated GFR () > 60 mL/Min [facility] Comment on above: GFR estimated refere nce range: According to KDOQI guidelines, <60 ml/min/1.73m2 is sufficient to diagnose a patient with chronic kidney disease. Pharmacy Creatinine Clearance (Chem N/A [facility] Platelet mean volume Auto (B ld) [Entitic vol]Ordered By: Daphne Mayes on 07-18-2021 Platelet mean volume (Bld) [Entitic vol] 8.5 fL 6.3-10.7 [facility] Platelet poor plasma interna tional normalized ratio (INR) by coagulation assay (relatOrdered By: Daphne Mayes on 07-18-2021 INR Coag (PPP) [Relative time] 1.1 {INR} [facility] Comment on above: INR Therapeutic Rang [...] 07-18-2021 Platelets (Bld) [#/Vol] 282 10*3/uL 150-450 [facility] RBC Auto (Bld) [#/Vol]Ordere d By: Daphne Mayes on 07-18-2021 RBC (Bld) [#/Vol] 4.49 10*6/uL 3.60-5.00 [facility] Serum or plasma calcium khurram urement (mass/volume)Ordered By: Daphne Mayes on 07-18-2021 Calcium [Mass/Vol] 9.3 mg/dL 8.2-10.2 [facility] Serum or plasma chloride stephen surement (moles/volume)Ordered By: Daphne Mayes on 07-18-2021 Chloride [Moles/Vol] 103 mmol/L 95-114 [facility] Serum or plasma glucose khurram urement (mass/volume)Ordered By: Daphne Mayes on 07-18-2021 Glucose [Mass/Vol] 118 mg/dL 70-100 [facility] Comment on above: ADA recommended refe rence rangeRandom Glucose Reference Range is dependent on time and content of last meal. Glucose of more than 200 mg/dL in a nonstressed, ambulatory subject supports the diagnosis of Diabetes Mellitus. Serum or plasma potassium me asurement (moles/volume)Ordered By: Daphne Mayes on 07-18-2021 Potassium [Moles/Vol] 3.9 mmol/L 3.5-5.1 [facility] Serum or plasma sodium measu rement (moles/volume)Ordered By: Daphne Mayes on 07-18-2021 Sodium [Moles/Vol] 139 mmol/L 136-146 [facility] Serum or plasma total carbon dioxide measurement (moles/volume)Ordered By: Daphnemichelle Mayes on 07-18-2021 CO2 [Moles/Vol] 26.2 mmol/L 22.0-30.0 [facility] Serum or plasma urea nitroge n measurement (mass/volume)Ordered By: Daphne Mayes on 07-18-2021 Urea nitrogen [Mass/Vol] 16 mg/dL 9- [facility] CBCon 08-01-2020 Erythrocyte distribution width (RBC) [Ratio] 13.4 % Normal 11.5 - 14.5 [facility] Comment on above: Performed By: #### C BC #### [address] [id number] Hematocrit (Bld) [Volume fraction] 41.9 % Normal 36.0 - 46.0 [facility] Comment on above: Performed By: #### C BC #### [address] [id number] Hemoglobin (Bld) [Mass/Vol] 13.3 g/dL Normal 12.0 - 16.0 [facility] Comment on above: Performed By: #### C BC #### [address] [id number] MCHC (RBC) [Mass/Vol] 31.7 g/dL Low 32.0 - 36.0 [facility] Comment on above: Performed By: #### C BC #### [address] [id number] MCV (RBC) [Entitic vol] 91 fL Normal 80 - 100 [facility] Comment on above: Performed By: #### C BC #### [address] [id number] Platelets (Bld) [#/Vol] 205 10*3/uL Normal 150 - 450 [facility] Comment on above: Performed By: #### C BC #### [address] [id number] RBC (Bld) [#/Vol] 4.62 x10E12/L Normal 4.00 - 5.20 [facility] Comment on above: Performed By: #### C BC #### [address] [id number] WBC (Bld) [#/Vol] 7.4 10*3/uL Normal 4.4 - 11.3 [facility] Comment on above: Performed By: #### C BC #### [address] [id number] CREATININEon 08-01-2020 Creatinine [Mass/Vol] 0.77 mg/dL Normal 0.50 - 1.05 [facility] Comment on above: Performed By: #### C REAT #### [address] [id number] Creatinine [Mass/Vol] mg/dL Normal >60 [facility] Comment on above: Result Comment: CALC ULATIONS OF ESTIMATED GFR ARE PERFORMED USING THE MDRD STUDY EQUATION FOR THE IDMS-TRACEABLE CREATININE METHODS. CLIN CHEM 2007;53:766-72 Performed By: #### C REAT #### [address] [id number] ELECTROLYTE PANELon 08-02-19 Anion gap [Moles/Vol] 12 mmol/L Normal 10 - 20 [facility] Comment on above: Performed By: #### E LECT #### [address] [id number] Chloride [Moles/Vol] 107 mmol/L Normal 98 - 107 [facility] Comment on above: Performed By: #### E LECT #### [address] [id number] HCO3 (Bld) [Moles/Vol] 28 mmol/L Normal 21 - 32 [facility] Comment on above: Performed By: #### E LECT #### [address] [id number] Potassium [Moles/Vol] 3.7 mmol/L Normal 3.5 - 5.3 [facility] Comment on above: Performed By: #### E LECT #### [address] [id number] Sodium [Moles/Vol] 143 mmol/L Normal 136 - 145 [facility] Comment on above: Performed By: #### E LECT #### [address] [id number] UREA NITROGENon 08-01-2020 Urea nitrogen [Mass/Vol] 17 mg/dL Normal 6 - 23 [facility] Comment on above: Performed By: #### U SHARON #### [address] [id number] CNNURSEon 11-13-2018 CNNURSE Nurse Visit (CARDMN) -- NYA BELL ([id number]) 1955 F Date Time Provider Department 11/13/18 [...] return my call at her convenience. Aba Ngdiego [facility] November 13, 2018 2:31 PM Referring Provider: JONA WAN [[id number]] Allergies As of Date: 11/13/2018 Noted Allergy [...] [E66.9] INVALID FOR* Encounter Status:Closed by [facility] 11/13/18 [facility] PROGRESSon 11-13-2018 PROGRESS HNO ID: [id number] Author: Aba Rodriguez [facility] November 13, 2018 2:31 PM [facility] Coding Summary.on 07-02-2017 Coding Summary. CODING DATE: 018 FINAL [facility] STATUS: Home (Routine DC) PAYOR: Medicare [...] Stubbs Date Saved: 07/02/2017 08:19 am Normal [facility] Vital Signs Date Time Vital Sign Value Performing Clinician Facility 02-04-2025 10:170400 Body height 149.22 cm Anupam Pereira MD Work Phone: [facility] 02-04-2025 10:170400 Body mass index (BMI) [Ratio] 37.6 kg/m2 Anupam Pereira MD Work Phone: [facility] 02-04-2025 10:17040 Body weight 83.91 kg Anupam Pereira MD Work Phone: [facility] 02-04-2025 10:17-0400 Diastolic blood pressure 69 mm[Hg] Anupam Pereira MD Work Phone: [facility] 02-04-2025 10:17-0400 Heart rate 80 /min Anupam Pereira MD Work Phone: [facility] 02-04-2025 10:17-0400 Systolic blood pressure 108 mm[Hg] Anupam Pereira MD Work Phone: [facility] 12-31-2024 13:06-0400 Body height 149.22 cm Anupam Pereira MD Work Phone: [facility] 12-31-2024 13:06-0400 Body mass index (BMI) [Ratio] 38 kg/m2 Anupam Pereira MD Work Phone: [facility] 12-31-2024 13:06-0400 Body temperature 98 [degF] Anupam Pereira MD Work Phone: [facility] 12-31-2024 13:06-0400 Body weight 84.82 kg Anupam Pereira MD Work Phone: [facility] 12-31-2024 13:06-0400 Diastolic blood pressure 77 mm[Hg] Anupam Pereira MD Work Phone: [facility] 12-31-2024 13:06-0400 Heart rate 77 /min Anupam Pereira MD Work Phone: [facility] 12-31-2024 13:06-0400 Respiratory rate 14 /min Anupam Pereira MD Work Phone: [facility] 12-31-2024 13:06-0400 SaO2% (BldA) [Mass fraction] 95 % Anupam Pereira MD Work Phone: [facility] 12-31-2024 13:06-0400 Systolic blood pressure 120 mm[Hg] Anupam Pereira MD Work Phone: [facility] 10-06-2024 10:07-0400 Body height 152.4 cm Lupe Rosado MD Work Phone: [facility] 10-06-2024 10:07-0400 Body mass index (BMI) [Ratio] 38.08 kg/m2 Lupe Rosado MD Work Phone: [facility] 10-06-2024 10:07-0400 Body weight 88.45 kg Lupe Rosado MD Work Phone: [facility] 10-06-2024 10:07-0400 Diastolic blood pressure 70 mm[Hg] Lupe Rosado MD Work Phone: [facility] 10-06-2024 10:07-0400 Heart rate 60 /min Lupe Rosado MD Work Phone: [facility] 10-06-2024 10:07-0400 Systolic blood pressure 114 mm[Hg] Lupe Rosado MD Work Phone: [facility] 07-26-2024 08:43-0400 Body height 149.22 cm Anupam Pereira MD Work Phone: [facility] 07-26-2024 08:43-0400 Body mass index (BMI) [Ratio] 39.4 kg/m2 Anupam Pereira MD Work Phone: [facility] 07-26-2024 08:43-0400 Body weight 87.7 kg Anupam Pereira MD Work Phone: [facility] 07-26-2024 08:43-0400 Diastolic blood pressure 74 mm[Hg] Anupam Pereira MD Work Phone: [facility] 07-26-2024 08:43-0400 Heart rate 70 /min Anupam Pereira MD Work Phone: [facility] 07-26-2024 08:43-0400 Respiratory rate 16 /min Anupam Pereira MD Work Phone: [facility] 07-26-2024 08:43-0400 SaO2% (BldA) [Mass fraction] 99 % Anupam Pereira MD Work Phone: [facility] 07-26-2024 08:43-0400 Systolic blood pressure 110 mm[Hg] Anupam Pereira MD Work Phone: [facility] 06-14-2024 13:25-0500 Body height 149.22 cm Anupam Pereira MD Work Phone: [facility] 06-14-2024 13:25-0500 Body mass index (BMI) [Ratio] 39.9 kg/m2 Anupam Pereira MD Work Phone: [facility] 06-14-2024 13:25-0500 Body weight 88.9 kg Anupam Pereira MD Work Phone: [facility] 06-14-2024 13:25-0500 Diastolic blood pressure 76 mm[Hg] Anupam Pereira MD Work Phone: [facility] 06-14-2024 13:25-0500 Heart rate 76 /min Anupam Pereira MD Work Phone: [facility] 06-14-2024 13:25-0500 Systolic blood pressure 117 mm[Hg] Anupam Pereira MD Work Phone: [facility] 06-10-2024 10:24-0500 Body height 152.4 cm Lupe Rosado MD Work Phone: [facility] 06-10-2024 10:24-0500 Body mass index (BMI) [Ratio] 38.55 kg/m2 Lupe Rosado MD Work Phone: [facility] 06-10-2024 10:24-0500 Body weight 89.54 kg Lupe Rosado MD Work Phone: [facility] 06-10-2024 10:24-0500 Diastolic blood pressure 60 mm[Hg] Lupe Rosado MD Work Phone: [facility] 06-10-2024 10:24-0500 Heart rate 82 /min Lupe Rosado MD Work Phone: [facility] 06-10-2024 10:24-0500 Systolic blood pressure 108 mm[Hg] Lupe Rosado MD Work Phone: [facility] 05-31-2024 11:36-0500 Body height 149.22 cm [facility] 05-31-2024 11:36-0500 Body mass index (BMI) [Ratio] 39.7 kg/m2 [facility] 05-31-2024 11:36-0500 Body weight 88.59 kg [facility] 05-31-2024 11:36-0500 Diastolic blood pressure 76 mm[Hg] [facility] 05-31-2024 11:36-0500 Heart rate 65 /min [facility] 05-31-2024 11:36-0500 Respiratory rate 16 /min [facility] 05-31-2024 11:36-0500 SaO2% (BldA) [Mass fraction] 98 % [facility] 05-31-2024 11:36-0500 Systolic blood pressure 114 mm[Hg] [facility] 03-02-2024 10:53-0400 Body height 151.13 cm [facility] 03-02-2024 10:53-0400 Body mass index (BMI) [Ratio] 38.7 kg/m2 [facility] 03-02-2024 10:53-0400 Body weight 88.45 kg [facility] 03-02-2024 10:53-0400 Diastolic blood pressure 81 mm[Hg] [facility] 03-02-2024 10:53-0400 Heart rate 78 /min [facility] 03-02-2024 10:53-0400 Systolic blood pressure 137 mm[Hg] [facility] 12-22-2023 13:59-0400 Body height 151.13 cm [facility] 12-22-2023 13:59-0400 Body mass index (BMI) [Ratio] 39.5 kg/m2 [facility] 12-22-2023 13:59-0400 Body temperature 98.6 [degF] [facility] 12-22-2023 13:59-0400 Body weight 90.37 kg [facility] 12-22-2023 13:59-0400 Heart rate 95 /min [facility] 12-22-2023 13:59-0400 Respiratory rate 18 /min [facility] 12-22-2023 13:59-0400 SaO2% (BldA) [Mass fraction] 97 % [facility] 11-18-2023 10:43-0400 Body height 152.4 cm Lupe Rosado MD Work Phone: [facility] 11-18-2023 10:43-0400 Body mass index (BMI) [Ratio] 37.5 kg/m2 Lupe Rosado MD Work Phone: [facility] 11-18-2023 10:43-0400 Body weight 87.09 kg Lupe Rosado MD Work Phone: [facility] 11-18-2023 10:43-0400 Diastolic blood pressure 64 mm[Hg] Lupe Rosado MD Work Phone: [facility] 11-18-2023 10:43-0400 Heart rate 76 /min Lupe Rosado MD Work Phone: [facility] 11-18-2023 10:43-0400 Systolic blood pressure 106 mm[Hg] Lupe Rosado MD Work Phone: [facility] 08-29-2023 10:30-0400 Body height 152.4 cm Daphne Mayes MD Work Phone: [facility] 08-29-2023 10:30-0400 Body mass index (BMI) [Ratio] 37.5 kg/m2 Daphne Mayes MD Work Phone: [facility] 08-29-2023 10:30-0400 Body weight 87.09 kg Daphne Mayes MD Work Phone: [facility] 08-29-2023 10:30-0400 Diastolic blood pressure 80 mm[Hg] Daphne Mayes MD Work Phone: [facility] 08-29-2023 10:30-0400 Heart rate 64 /min Daphne Mayes MD Work Phone: [facility] 08-29-2023 10:30-0400 Systolic blood pressure 136 mm[Hg] Daphne Mayes MD Work Phone: [facility] 05-28-2023 11:30-0500 Body height 151.13 cm Anupam Pereira Other [employer] Other 05-28-2023 11:30-0500 Body mass index (BMI) [Ratio] 37.33 kg/m2 Anupam Pereira Other [employer] Other 05-28-2023 11:30-0500 Body weight 85.28 kg Anupam Pereira Other [employer] Other 05-28-2023 11:30-0500 Diastolic blood pressure 82 mm[Hg] Anupam Pereira Other [employer] Other 05-28-2023 11:30-0500 Systolic blood pressure 121 mm[Hg] Anupam Pereira Other [employer] Other 05-12-2023 13:32-0500 Body height 152.4 cm Lupe Rosado MD Work Phone: [facility] 05-12-2023 13:32-0500 Body mass index (BMI) [Ratio] 37.3 kg/m2 Lupe Rosado MD Work Phone: [facility] 05-12-2023 13:32-0500 Body weight 86.64 kg Lupe Rosado MD Work Phone: [facility] 05-12-2023 13:32-0500 Diastolic blood pressure 60 mm[Hg] Lupe Rosado MD Work Phone: [facility] 05-12-2023 13:32-0500 Heart rate 62 /min Lupe Rosado MD Work Phone: [facility] 05-12-2023 13:32-0500 Systolic blood pressure 106 mm[Hg] Lupe Rosado MD Work Phone: [facility] 02-25-2023 10:10-0400 Body height 152.4 cm Lynn Jorgensen RAP ARTIST-[employer] Work Phone: [facility] 02-25-2023 10:10-0400 Body mass index (BMI) [Ratio] 37.69 kg/m2 Lynn Jorgensen RAP ARTIST-[employer] Work Phone: [facility] 02-25-2023 10:10-0400 Body weight 87.54 kg Lynn Jorgensen RAP ARTIST-[employer] Work Phone: [facility] 02-25-2023 10:10-0400 Diastolic blood pressure 80 mm[Hg] Lynn Jorgensen RAP ARTIST-[employer] Work Phone: [facility] 02-25-2023 10:10-0400 Heart rate 74 /min Lynn Jorgensen RAP ARTIST-[employer] Work Phone: [facility] 10-24-2023 10:10-0400 Systolic blood pressure 132 mm[Hg] Lynn Jorgensen RAP ARTIST-[employer] Work Phone: [facility] 01-09-2023 13:15-0400 Body height 151.13 cm Anupam Pereira Other [employer] Other 01-09-2023 13:15-0400 Body mass index (BMI) [Ratio] 38.05 kg/m2 Anupam Pereira Other [employer] Other 01-09-2023 13:15-0400 Body weight 86.91 kg Anupam Pereira Other [employer] Other 01-09-2023 13:15-0400 Diastolic blood pressure 95 mm[Hg] Anupam Pereira Other [employer] Other 01-09-2023 13:15-0400 Systolic blood pressure 140 mm[Hg] Anupam Pereira Other [employer] Other 12-31-2022 14:15-0400 Body height 151.13 cm Anupam Pereira Other [employer] Other 12-31-2022 14:15-0400 Body mass index (BMI) [Ratio] 38.32 kg/m2 Anupam Pereira Other [employer] Other 12-31-2022 14:15-0400 Body temperature 97.9 [degF] Anupam Pereira Other [employer] Other 12-31-2022 14:15-0400 Body weight 87.54 kg Anupam Pereira Other [employer] Other 12-31-2022 14:15-0400 Diastolic blood pressure 83 mm[Hg] Anupam Pereira Other [employer] Other 12-31-2022 14:15-0400 Systolic blood pressure 127 mm[Hg] Anupam Pereira Other [employer] Other 12-24-2022 10:45-0400 Body height 151.13 cm Anupam Pereira Other [employer] Other 12-24-2022 10:45-0400 Body mass index (BMI) [Ratio] 38.52 kg/m2 Anupam Pereira Other [employer] Other 12-24-2022 10:45-0400 Body weight 88 kg Anupam Pereira Other [employer] Other 12-24-2022 10:45-0400 Diastolic blood pressure 75 mm[Hg] Anupam Pereira Other [employer] Other 12-24-2022 10:45-0400 Systolic blood pressure 111 mm[Hg] Anupam Pereira Other [employer] Other 10-09-2022 10:59-0400 Body height 152.4 cm Anupam Pereira Work Phone: [facility] [employer] DO Work Phone: 10-09-2022 10:59-0400 Body mass index (BMI) [Ratio] 39.26 kg/m2 Anupam Pereira Work Phone: [facility] [employer] DO Work Phone: 10-09-2022 10:59-0400 Body surface area Derived from formula 1.87 m2 Anupam Pereira Work Phone: [facility] [employer] 250 DO Work Phone: 10-09-2022 10:59-0400 Body weight 91.17 kg Anupam Pereira Work Phone: [facility] [employer] 250 DO Work Phone: 10-09-2022 10:59-0400 Diastolic blood pressure 64 mm[Hg] Anupam Pereira Work Phone: [facility] [employer] DO Work Phone: 10-09-2022 10:59-0400 Heart rate 72 /min Anupam Pereira Work Phone: [facility] [employer] DO Work Phone: 10-09-2022 10:59-0400 Systolic blood pressure 124 mm[Hg] Anupam Pereira Work Phone: [facility] [employer] DO Work Phone: 05-21-2022 15:30-0500 Body height 151.13 cm Anupam Pereira Other [employer] Other 05-21-2022 15:30-0500 Body mass index (BMI) [Ratio] 40.11 kg/m2 Anupam Pereira Other [employer] Other 05-21-2022 15:30-0500 Body weight 91.63 kg Anupam Pereira Other [employer] Other 05-21-2022 15:30-0500 Diastolic blood pressure 70 mm[Hg] Anupam Pereira Other [employer] Other 05-21-2022 15:30-0500 SaO2% (BldA) [Mass fraction] 97 % Anupam Pereira Other [employer] Other 05-21-2022 15:30-0500 Systolic blood pressure 126 mm[Hg] Anupam Pereira Other [employer] Other 04-17-2022 11:16-0500 Body height 152.4 cm Anupam Pereira Work Phone: [facility] 250 DO Work Phone: 04-17-2022 11:16-0500 Body mass index (BMI) [Ratio] 39.32 kg/m2 Anupam Pereira Work Phone: [facility] 250 DO Work Phone: 04-17-2022 11:16-0500 Body surface area Derived from formula 1.87 m2 Anupam Pereira Work Phone: [facility] 250 DO Work Phone: 04-17-2022 11:16-0500 Body weight 91.31 kg Anupam Pereira Work Phone: [facility] 250 DO Work Phone: 04-17-2022 11:16-0500 Diastolic blood pressure 84 mm[Hg] Anupam Pereira Work Phone: [facility] 250 DO Work Phone: 04-17-2022 11:16-0500 Heart rate 62 /min Anupam Pereira Work Phone: [facility] 250 DO Work Phone: 04-17-2022 11:16-0500 Systolic blood pressure 126 mm[Hg] Anupam Pereira Work Phone: [facility] 250 DO Work Phone: 10-09-2021 13:20-0400 Body height 152.4 cm Anupam Pereira Work Phone: [facility] 250 DO Work Phone: 10-09-2021 13:20-0400 Body mass index (BMI) [Ratio] 40.23 kg/m2 Anupam Pereira Work Phone: [facility] 250 DO Work Phone: 10-09-2021 13:20-0400 Body surface area Derived from formula 1.89 m2 Anupam Pereira Work Phone: [facility] 250 DO Work Phone: 10-09-2021 13:20-0400 Body weight 93.44 kg Anupam Pereira Work Phone: [facility] 250 DO Work Phone: 10-09-2021 13:20-0400 Diastolic blood pressure 89 mm[Hg] Anupam Pereira Work Phone: [facility] 250 DO Work Phone: 10-09-2021 13:20-0400 Heart rate 68 /min Anupam Pereira Work Phone: [facility] 250 DO Work Phone: 10-09-2021 13:20-0400 Systolic blood pressure 144 mm[Hg] Anupam Pereira Work Phone: [facility] 250 DO Work Phone: 10-09-2021 13:20-0400 12 1 Anupam Pereira Work Phone: [facility] 250 DO Work Phone: Comment on above: PHQ-9 TS 08-09-2021 15:58-0400 Body height 152.4 cm Anupam Pereira Work Phone: [facility] 250 DO Work Phone: 08-09-2021 15:58-0400 Body mass index (BMI) [Ratio] 41.21 kg/m2 Anupam Pereira Work Phone: [facility] 250 DO Work Phone: 08-09-2021 15:58-0400 Body surface area Derived from formula 1.91 m2 Anupam Pereira Work Phone: [facility] 250 DO Work Phone: 08-09-2021 15:58-0400 Body temperature 97 [degF] Anupam Pereira Work Phone: [facility] 250 DO Work Phone: 08-09-2021 15:58-0400 Body weight 95.71 kg Anupam Pereira Work Phone: [facility] 250 DO Work Phone: 08-09-2021 15:58-0400 Diastolic blood pressure 78 mm[Hg] Anupam Pereira Work Phone: [facility] 250 DO Work Phone: 08-09-2021 15:58-0400 Heart rate 82 /min Anupam Pereira Work Phone: [facility] 250 DO Work Phone: 08-09-2021 15:58-0400 Systolic blood pressure 132 mm[Hg] Anupam Pereira Work Phone: [facility] 250 DO Work Phone: Encounters Encounter Date Encounter Type Care Provider Facility Start: 02-04-2025 End: 02-04-2025 ambulatory Anupam Pereira MD Work Phone: [facility] Work Phone: Start: 02-04-2025 End: 02-04-2025 Patient encounter procedure Anupam Pereira MD -[facility] Work Phone: Start: 12-31-2024 End: 12-31-2024 ambulatory Anupam Pereira MD Work Phone: [facility] Work Phone: Start: 12-31-2024 End: 12-31-2024 Patient encounter procedure Anupam Pereira MD -[facility] Work Phone: Start: 12-09-2024 End: 12-09-2024 ambulatory Lupe Rosado Facility:[facility] Start: 12-09-2024 Non-patient / Non-visit [facility] Start: 10-06-2024 End: 10-06-2024 ambulatory [facility] Start: 10-06-2024 End: 10-06-2024 Office outpatient visit 25 minutes Lupe Rosado MD Work Phone: [facility] Comment on above: Nonischemic cardiomy opathy (Multi) (Primary Dx); ICD (implantable cardioverter-defibrillator) in place; Obstructive sleep apnea syndrome in adult; Never smoked cigarettes; BMI 38.0-38.9,adult; Class 2 obesity; Other fatigue Start: 09-03-2024 End: 09-03-2024 ambulatory Anupam Pereira MD Work Phone: [facility] Work Phone: Start: 09-03-2024 End: 09-03-2024 Patient encounter procedure Anupam Pereira MD Work Phone: [facility] Start: 09-03-2024 Non-patient / Non-visit Anupam Pereira MD Work Phone: [facility] Start: 08-03-2024 End: 08-03-2024 ambulatory Anupam Pereira MD Work Phone: [facility] Work Phone: Start: 08-03-2024 End: 08-03-2024 Patient encounter procedure Anupam Pereira MD Work Phone: [facility] [employer] Work Phone: Start: 07-26-2024 End: 07-26-2024 ambulatory Anupam Pereira MD Work Phone: [facility] Work Phone: Start: 07-26-2024 End: 07-26-2024 Patient encounter procedure Anupam Pereira MD Work Phone: [facility] Work Phone: Start: 07-12-2024 End: 07-12-2024 Patient encounter procedure Anupam Pereira MD Work Phone: [facility] Work Phone: Start: 07-12-2024 End: 07-12-2024 ambulatory Anupam Pereira MD Work Phone: [facility] Work Phone: Start: 06-14-2024 End: 06-14-2024 ambulatory Anupam Pereira MD Work Phone: [facility] Work Phone: Start: 06-14-2024 End: 06-14-2024 Patient encounter procedure Anpuam Pereira MD Work Phone: [facility] Work Phone: Start: 06-10-2024 End: 06-10-2024 Office outpatient visit 25 minutes Lupe oRsado MD Work Phone: [facility] Comment on above: ICD (implantable car dioverter-defibrillator) in place (Primary Dx); Chronic systolic congestive heart failure; Fatigue, unspecified type; Obstructive sleep apnea syndrome in adult; Never smoked cigarettes; BMI 38.0-38.9,adult; Class 2 obesity Start: 06-10-2024 End: 06-10-2024 ambulatory [facility] Start: 06-08-2024 Non-patient / Non-visit Anupam Pereira MD Work Phone: [facility] Work Phone: Start: 06-03-2024 End: 06-03-2024 Patient encounter procedure Anupam Pereira MD Work Phone: [facility] Start: 06-03-2024 End: 06-03-2024 ambulatory Anupam Pereira MD Work Phone: [facility] Work Phone: Start: 06-03-2024 Non-patient / Non-visit Anupam Pereira MD Work Phone: [facility] Start: 05-31-2024 End: 05-31-2024 ambulatory [facility] Work Phone: Start: 05-31-2024 End: 05-31-2024 Patient encounter procedure [facility] Work Phone: Start: 05-20-2024 End: 05-20-2024 [facility] Start: 05-20-2024 Non-patient / Non-visit Anupam Pereira MD Work Phone: [facility] Work Phone: Start: 03-03-2024 Non-patient / Non-visit [facility] Work Phone: Start: 03-03-2024 End: 03-03-2024 ambulatory [facility] Facility:[facility] Start: 03-03-2024 Non-patient / Non-visit [facility] Start: 03-02-2024 End: 03-02-2024 ambulatory [facility] Work Phone: Start: 03-02-2024 End: 03-02-2024 Patient encounter procedure [facility] Work Phone: Start: 03-01-2024 End: 03-01-2024 Subsequent hospital visit by physician [facility] Comment on above: ICD (implantable car dioverter-defibrillator) in place Start: 03-01-2024 End: 03-01-2024 ambulatory [facility] Start: 12-22-2023 End: 12-22-2023 ambulatory [facility] Work Phone: Start: 12-22-2023 End: 12-22-2023 Patient encounter procedure [facility] Work Phone: Start: 12-02-2023 End: 12-02-2023 ambulatory MD Anupam Pereira Work Phone: [facility] Work Phone: Start: 12-02-2023 End: 12-02-2023 Patient encounter procedure MD Anupam Pereira Work Phone: [facility] Start: 12-02-2023 Non-patient / Non-visit [facility] Start: 11-18-2023 End: 11-18-2023 Office outpatient visit 25 minutes Lupe Rosado MD Work Phone: [facility] Comment on above: Cardiomyopathy, unsp ecified type (Multi); Chronic systolic congestive heart failure (Multi); ICD (implantable cardioverter-defibrillator) in place; Obstructive sleep apnea syndrome in adult; Fatigue, unspecified type; Never smoked cigarettes; Class 2 obesity without serious comorbidity with body mass index (BMI) of 37.0 to 37.9 in adult, unspecified obesity type Start: 11-18-2023 End: 11-18-2023 ambulatory LUPE ROSADO [facility] Ambulatory Start: 08-29-2023 End: 08-30-2023 ambulatory ANUPAM PEREIRA [facility] Start: 08-29-2023 End: 08-29-2023 Office outpatient visit 25 minutes Daphne Mayes MD Work Phone: [facility] Comment on above: ICD (implantable [...] outpatient vi sit 15 minutes Anupam Pereira [facility] Start: 05-28-2023 End: 05-28-2023 ambulatory MD Anupam Pereira Work Phone: [employer] Other Start: 05-28-2023 End: 05-28-2023 Patient encounter procedure MD Anupam Pereira Work Phone: [facility] Start: 05-20-2023 End: 05-20-2023 ambulatory Anupam Pereira Other [employer] Other Start: 05-20-2023 Telephone encounter Anupam Pereira [facility] Start: 05-12-2023 End: 05-12-2023 Office outpatient visit 25 minutes Lupe Rosado MD Work Phone: [facility] Comment on above: Cardiomyopathy, unsp ecified type (CMS/HCC) (Primary Dx); ICD (implantable cardioverter-defibrillator) in place; Obstructive sleep apnea syndrome in adult; Class 2 obesity without serious comorbidity with body mass index (BMI) of 37.0 to 37.9 in adult, unspecified obesity type Start: 05-08-2023 End: 05-08-2023 Patient encounter procedure MD Anupam Pereira Work Phone: [facility] Work Phone: Start: 02-25-2023 End: 02-25-2023 Office outpatient visit 25 minutes Lynn Jorgensen APRN-[employer]OSS Work Phone: [facility] Comment on above: ICD (implantable car dioverter-defibrillator) in place (Primary Dx); Morbid obesity (CMS/HCC); Chronic systolic congestive heart failure (CMS/HCC); Cardiomyopathy, unspecified type (CMS/HCC); Dyspnea on exertion; Obstructive sleep apnea syndrome in adult; Other fatigue Start: 01-09-2023 End: 01-09-2023 ambulatory Anupam Pereira Other [employer] Other Start: 01-09-2023 Office outpatient vi sit 15 minutes Anupam Pereira [facility] Start: 12-31-2022 End: 12-31-2022 ambulatory Anupam Pereira Other [employer] Other Start: 12-31-2022 Office outpatient vi sit 15 minutes Anupam Pereira [facility] Start: 12-24-2022 End: 12-24-2022 ambulatory Anupam Pereira Other [employer] Other Start: 12-24-2022 Office outpatient vi sit 15 minutes Anupam Pereira [facility] Start: 12-20-2022 End: 12-20-2022 ambulatory Anupam Pereira Other [employer] Other Start: 12-20-2022 Telephone encounter Anupam Pereira [facility] Start: 12-16-2022 End: 12-16-2022 ambulatory Anupam Pereira Other [employer] Other Start: 12-16-2022 Telephone encounter Anupam Pereira [facility] Start: 11-28-2022 End: 11-28-2022 ambulatory MD Anupam Pereira Work Phone: [facility] Work Phone: Start: 11-28-2022 End: 11-28-2022 Patient encounter procedure MD Anupam Pereira Work Phone: [facility] Start: 11-22-[address] Lupe Rosado Facility:[id number] Start: 10-09-[address] Lupe Rosado Facility:[id number] Start: 10-09-2022 Office outpatient vi sit 25 minutes Anupam Pereira Work Phone: [facility] 250 DO Work Phone: Start: 08-28-[address] Anupam Pereira Facility:[id number] Start: 08-28-2022 End: 08-28-2022 ambulatory MD Anupam Pereira Work Phone: [facility] Work Phone: Start: 08-28-2022 End: 08-28-2022 Patient encounter procedure MD Anupam Pereira Work Phone: [facility] Start: 08-22-[address] Lupe Rosado Facility:[id number] Start: 08-15-2022 End: 08-16-2022 ambulatory KERMITJENNIFERCHETAN MANE . Facility:[facility]1 Start: 07-17-[address] Lupe Rosado Facility:[id number] Start: 07-16-2022 End: 07-16-[address] ANUPAM PEREIRA Facility:[facility]1 Start: 07-11-2022 Encounter for preprocedural cardiovascular examination DR JANICE IRVING . [facility] Start: 07-09-2022 End: 07-10-[address] ANUPAM PEREIRA Facility:[facility] Start: 07-09-2022 End: 07-10-2022 Encounter for preprocedural cardiovascular examination DR ANUPAM PEREIRA Facility:[facility] Start: 06-20-2022 End: 06-21-[address] ANUPAM PEREIRA Facility:[facility] Start: 06-04-2022 End: 06-04-[address] ANUPAM PEREIRA Facility:[facility]1 Start: 05-23-2022 End: 05-24-[address] ANUPAM PEREIRA [place] [employer] Other Start: 05-23-2022 Telephone encounter Anupam Pereira [facility] Start: 05-21-2022 End: 05-22-[address] ANUPAM PEREIRA [place] [employer] Other Start: 05-21-2022 Office outpatient vi sit 15 minutes Anupam Pereira [facility] Start: 05-17-2022 End: 05-17-2022 ambulatory MD Anupam Pereira Work Phone: [facility] Work Phone: Start: 05-17-2022 End: 05-17-2022 Patient encounter procedure MD Anupam Pereira Work Phone: [facility]Pac[facility] Check Start: 05-07-2022 End: 05-07-[address] ANUPAM PEREIRA Facility:H1 Start: 04-23-2022 End: 04-24-[address] ANUPAM PEREIRA Facility:H1 Start: 04-17-2022 Office outpatient vi sit 25 minutes Anupam Pereira Work Phone: [facility] 250 DO Work Phone: Start: 04-17-[address] Lupe Rosado Facility: Start: 04-09-2022 End: 04-10-[address] ANUPAM PEREIRA Facility:H1 Start: 02-12-[address] Anupam Pereira Facility:[id number] Start: 02-12-2022 End: 02-12-2022 ambulatory MD Anupam Pereira Work Phone: [facility] Work Phone: Start: 02-12-2022 End: 02-12-2022 Patient encounter procedure MD Anupam Pereira Work Phone: [facility] Start: 02-04-2022 End: 02-05-[address] ANUPAM PEREIRA Facility:H1 Start: 02-01-[address] Anupam Pereira Facility: Start: 11-07-2021 End: 11-07-2021 Patient encounter procedure MD Anupam Peerira Work Phone: [facility] Start: 11-06-2021 End: 11-07-[address] LUPE ROSADO Facility:H1 Start: 10-09-2021 Office outpatient vi sit 25 minutes Anupam Pereira Work Phone: [facility] 250 DO Work Phone: Start: 09-07-2021 End: 09-08-[address] ANUPAM PEREIRA Facility:H1 Start: 08-30-2021 Chart Update Anupam Pereira Work Phone: [facility] 320 DO Work Phone: Start: 08-10-2021 Rx Renewal Anupam Pereira Work Phone: [facility] 250 DO Work Phone: Start: 08-09-2021 Postop follow up vis it related to original px Anupam Pereira Work Phone: [facility] 250 DO Work Phone: Start: 07-31-2021 End: 07-31-2021 Patient encounter procedure MD Anupam Pereira Work Phone: [facility] COVID Testing Start: 07-23-2021 AUDIT Anupam Pereira Work Phone: [facility] 3 DO Work Phone: Start: 07-18-2021 End: 07-18-2021 Patient encounter procedure MD Anupam Pereira Work Phone: [facility] Swab Start: 07-11-2021 Message Anupam Pereira Work Phone: [facility] 320 DO Work Phone: Start: 07-04-2021 End: 07-04-2021 Patient encounter procedure MD Anupam Pereira Work Phone: [facility] Start: 06-29-2021 AUDIT Anupam Pereira Work Phone: [facility] 320 DO Work Phone: Start: 04-03-2021 Rx Renewal Anupam Pereira Work Phone: [facility] 320 DO Work Phone: Start: 07-01-2017 End: 07-02-2017 [facility] Patient encounter status Anupam Pereira Work Phone: [facility] 320 DO Work Phone: End: 10-09-2021 Patient encounter status Anupam Pereira Work Phone: [facility] 250 DO Work Phone: Procedures Date [...] DTaP/Tdap/Td Vaccines (2 - Td or Tdap) [facility] Start: 05-18-2025 End: 05-18-2025 Patient encounter procedure 05/18/2025 10:10 AM EST Office Visit [facility] [address] [place] [address] [address] [place] [address] Lupe Rosado MD [address] [facility] [address], [address] [place] [address] [facility] Start: 01-03-2025 Influenza vaccination Influenz a Vaccine (Season Ended) [facility] Start: 10-06-2024 End: 10-06-2024 Patient encounter procedure 10/06/2024 9:40 AM EDT Office Visit [address] [place] [address] Lupe Rosado MD [address] [facility] [address], [address] [place] [address] [facility] Start: 08-28-2024 Creatinine measurement Creatinine Le lee ann [facility] Start: 08-28-2024 Potassium measurement Potassium Leve l [facility] Start: 07-12-2024 [facility] Start: 06-10-2024 End: 06-10-2024 Patient encounter procedure 06/10/2024 10:30 AM EST Office Visit [facility] [address] [facility] [address] [place] [address] Lupe Rosado MD [address] [facility] [address], [address] [place] [address] [facility] Start: 05-20-2024 End: 11-17-2024 Basic metabolic 2000 panel - Serum or Plasma Basic Metabolic Panel Lab Routine Cardiomyopathy, unspecified type (Multi) Chronic systolic congestive heart failure (Multi) Expected: 05/20/2024 (Approximate), Expires: 11/17/2024 [facility] Service Area Work Phone: Comment on above: Expected: 05/20/2024 (Approximate), Expires: 11/17/2024 Start: 04-06-2024 End: 04-06-2024 Patient encounter procedure 04/06/2024 11:00 AM EST Office Visit [facility] [address] [facility] [address] [place] [address] Daphne Mayes MD [address] [facility] [address], [address] [place], [place] [phone] [facility] Start: 02-28-2024 End: 08-28-2024 Cardiac Device Check - In Clinic Cardiac Device Check - In Clinic Implantable Cardiac Device Routine ICD (implantable cardioverter-defibrilla tor) in place Expected: 02/28/2024 (Approximate), Expires: 08/28/2024 [facility] Service Area Work Phone: Comment on above: Expected: 02/28/2024 (Approximate), Expires: 08/28/2024 Start: 02-20-2024 End: 02-20-2024 Patient encounter procedure [facility] Start: 01-04-2024 COVID-19 Vaccine ( season) COVID-19 Vaccine () [facility] Start: 01-04-2024 Influenza vaccination [facility] Start: 11-23-2023 Echocardiography Echocardiogram [facility] Start: 11-18-2023 End: 11-18-2023 Patient encounter procedure 11/18/2023 10:40 AM EDT Office Visit [facility] [address] [facility] [address] [place] [address] Lupe Rosado MD [address] [place] [address] 2, [address] [place] [address] [facility] Start: 08-29-2023 End: 08-29-2023 Patient encounter procedure 08/29/2023 10:20 AM EDT Office Visit [facility] [address] [facility] [address] [place] [address] Daphne Mayes MD [address] [facility] Medical Office [address]g, [address] [place] [address] [facility] Start: 04-17-2023 FUV, Provider: Lupe Rosado, Status: Pen, Time: 11:00 AM FUV, Provider: Lupe Rosado, Status: Pen, Time: 11:00 AM [facility] 250 DO Work Phone: Start: 04-17-2023 End: 04-17-2023 Patient encounter procedure 04/17/2023 11:00 AM EST Office Visit [facility] [address] [facility] [address] [place] [address] Lupe Rosado MD [address] [facility] 2, [address] [place] [address] [facility] Start: 03-11-2023 End: 02-26-2024 Basic metabolic 2000 panel - Serum or Plasma Basic metabolic panel Lab Routine Chronic systolic congestive heart failure (CMS/HCC) Expected: 03/11/2023 (Approximate), Expires: 02/26/2024 [facility] Service Area Work Phone: Comment on above: Expected: 03/11/2023 (Approximate), Expires: 02/26/2024 Start: 01-31-2023 FUV, Provider: Daphne Mayes, Status: Pen, Time: 2:00 PM FUV, Provider: Daphne Mayes, Status: Pen, Time: 2:00 PM [facility] 250 DO Work Phone: Start: 01-31-2023 Patient encounter procedure MORE, Provider: [facility], Status: Pen, Time: 1:00 PM [facility] 250 DO Work Phone: Start: 01-03-2023 COVID-19 Vaccine ( season) COVID-19 Vaccine ( season) [facility] Start: 01-03-2023 Influenza vaccination Influenza Vacc ine (#1) [facility] Start: 11-22-2022 ECHO, [facility] ,[id number], Status: Pen, Time: 10:45 AM ECHO, Provider: [facility]TR[facility] ,[id number], Status: Pen, Time: 10:45 AM [facility] 250 DO Work Phone: Start: 10-09-2022 FUV, Provider: Lupe Rosado, Status: Pen, Time: 10:40 AM FUV, Provider: Lupe Rosado, Status: Pen, Time: 10:40 AM [facility] 250 DO Work Phone: Start: 08-02-2022 Creatinine measurement Creatinine Le lee ann [facility] Start: 08-02-2022 Potassium measurement Potassium Francesca roberts [facility] Start: 07-17-2022 ECHO, Provider: CARMEN [facility]AMP[facility] 01,[id number], Status: Pen, Time: 9:45 AM ECHO, Provider: [facility]TR[facility] 01,[id number], Status: Pen, Time: 9:45 AM [facility] Work Phone: Start: 05-29-2022 ECHO, Provider: CARMEN [facility]AMP[facility]TR[facility] 01,[id number], Status: Pen, Time: 2:30 PM ECHO, Provider: [facility]TR[facility] 01,[id number], Status: Pen, Time: 2:30 PM [facility] 250 DO Work Phone: Start: 04-17-2022 FUV, Provider: Lupe Rosado, Status: Pen, Time: 11:10 AM FUV, Provider: Lupe Rosado, Status: Pen, Time: 11:10 AM [facility] 250 DO Work Phone: Start: 02-01-2022 FUV, Provider: Daphne Mayes, Status: Pen, Time: 3:20 PM FUV, Provider: Daphne Mayes, Status: Pen, Time: 3:20 PM [facility] 250 DO Work Phone: Start: 02-01-2022 Patient encounter procedure FUVPACEMKR, Provider: [id number], Status: Pen, Time: 2:20 PM [facility] Work Phone: Start: 11-20-2021 NURSEVST, Provider: PRABHJOT WALDRON PROSTHETIC ASSISTANT 1,[id number], Status: Pen, Time: 2:30 PM NURSEVST, Provider: PRABHJOT WALDRON PROSTHETIC ASSISTANT 1,[id number], Status: Pen, Time: 2:30 PM [facility] 250 DO Work Phone: Start: 11-20-2021 ECHO, Provider: CARMEN [facility]TRASOUND 01,[id number], Status: Pen, Time: 1:30 PM ECHO, Provider: [facility]TRAS[facility] 01,[id number], Status: Pen, Time: 1:30 PM [facility] 250 DO Work Phone: Start: 10-09-2021 FUV, Provider: Lupe Rosado, Status: Pen, Time: 1:30 PM FUV, Provider: Lupe Rosado, Status: Pen, Time: 1:30 PM [facility] DO Work Phone: Start: 08-28-2021 FUV, Provider: Daphne Mayes, Status: Pen, Time: 2:20 PM FUV, Provider: Daphne Mayes, Status: Pen, Time: 2:20 PM [facility] Work Phone: Start: 08-28-2021 Patient encounter procedure FUVPACEMKR, Provider: [id number], Status: Pen, Time: 1:20 PM [facility] 320 DO Work Phone: Start: 08-02-2021 ICD CHANGE, Provider : [facility] BLOCK PLACER 4,[id number], Status: Pen, Time: 12:30 PM ICD CHANGE, Provider: [facility] BLOCK [facility]ACER 4,[id number], Status: Pen, Time: 12:30 PM [facility] 3 DO Work Phone: Start: 08-02-2021 [facility], Provider: Daphne Mayes, Status: Pen, Time: 11:00 AM [facility], Provider: Daphne Mayes, Status: Pen, Time: 11:00 AM [facility] 3 DO Work Phone: Start: 07-19-2021 ICD CHANGE, Provider : [facility] 4,[id number], Status: Pen, Time: 2:00 PM ICD CHANGE, Provider: [facility] 4,[id number], Status: Pen, Time: 2:00 PM [facility] 320 DO Work Phone: Start: 07-19-2021 [facility], Provider: Daphne Mayes, Status: Pen, Time: 11:00 AM [facility], Provider: Daphne Mayes, Status: Pen, Time: 11:00 AM [facility] 320 DO Work Phone: Start: 07-17-2021 FUV, Provider: Daphne Mayes, Status: Pen, Time: 8:40 AM FUV, Provider: Daphne Mayes, Status: Pen, Time: 8:40 AM [facility] 320 DO Work Phone: Start: 07-17-2021 Patient encounter procedure FUVPACEMKR, Provider: [id number], Status: Pen, Time: 7:40 AM [facility] 320 DO Work Phone: Start: 2014 RSV High Risk: (Elde rly (60+) or Population) (1 - Risk 60-74 years 1-dose series) RSV High Risk: (Elderly (60+) or Population) (1 - Risk 60-74 years 1-dose series) [facility] Start: 2014 RSV patient s and/or patients aged 60+ years (1 - 1-dose 60+ series) RSV patients and/or patients aged 60+ years (1 - 1-dose 60+ series) [facility] Start: 2004 Zoster Vaccines (1 of 2) Zoste r Vaccines (1 of 2) [facility] Start: 1994 Screening for malign ant neoplasm of breast Mammogram [facility] Start: 1976 DTaP/Tdap/Td Vaccine s (1 - Tdap) DTaP/Tdap/Td Vaccines (1 - Tdap) [facility] Start: 1973 Pneumococcal vaccination Pneum ococcal Vaccine (1 of 2 - PCV) [facility] Start: 1972 Diabetes mellitus screening Diabetes Screening [facility] Start: 1972 Hepatitis C screening Hepatitis C Sc reening [facility] Start: 1960 Pneumococcal Vaccine : 65+ Years (1 - PCV) Pneumococcal Vaccine: 65+ Years (1 - PCV) [facility] Start: 1960 Pneumococcal Vaccine : 65+ Years (1 of 2 - PCV) Pneumococcal Vaccine: 65+ Years (1 of 2 - PCV) [facility] Start: 04-03-1955 COVID-19 Vaccine (#1) COVID-19 Vacci ne (#1) [facility] Start: 1954 Lipid panel Lipid Panel [facility] Start: 1954 Medicare Annual Well ness Visit Medicare Annual Wellness Visit (AWV) [facility] Start: 1954 Screening for malign ant neoplasm of colon [facility] Start: 1954 Screening for osteoporosis Bone Dens ity Scan [facility] End: 02-28-2024 Cardiac Device Check - Remote Cardiac Device Check - Remote Implantable Cardiac Device Routine ICD (implantable cardioverter-defibrilla tor) in place 52 Occurrences starting 08/29/2023 until 02/28/2024 [facility] Work Phone: Comment on above: 52 Occurrences start ing 08/29/2023 until 02/28/2024 Urine culture [facility] Immunizations Immunization Date Immunization Notes Care Provider Cortez almodovar 12-25-2023 tetanus toxoid, redu liam diphtheria toxoid, and acellular pertussis vaccine, adsorbed Lupe Rosado MD Work Phone: [facility] Payers Date Payer Category Payer Medicare [id number] 2023 Self-pay [id number] 2023 Unknown [id number] 2022 Dual Eligibility Medicare/Medicaid Organization [id number] 2022 Private Health Insurance UNITED [employer] DUAL COMPLETE UNITED [employer] DUAL COMPLETE [id number] 2022-Present [address] [address] [place] [address] [id number] 2017 Medicare [id number] 2017 Medicaid [id number] 2017 Private Health Insurance [id number] 2017 Private Health Insurance [id number] 2.16.840.1.844736.19 1959 Medicaid [id number] 1954 Unknown [id number] 2.16.840.1.008984.3.579.2 .593 1954 Unknown [id number] 2.16.840.1.204166.3.579.2 .593 1954 Unknown [id number] 2.16.840.1.146167.3.579.2 .593 1954 Unknown [id number] 2.16.840.1.370542.3.579.2 .593 1954 Unknown [id number] 2.16.840.1.062820.3.579.2 .593 1954 Unknown [id number] 2.16.840.1.821815.3.579.2 .593 1954 Unknown [id number] 2.16.840.1.739097.3.579.2 .593 1954 Unknown [id number] 2.16.840.1.628861.3.579.2 .593 1954 Unknown [id number] 2.16.840.1.939709.3.579.2 .593 1954 Unknown [id number] 2.16.840.1.780138.3.579.2 .593 1954 Unknown [id number] 2.16.840.1.126630.3.579.2 .593 1954 Unknown [id number] 2.16.840.1.647316.3.579.2 .593 1954 Unknown [id number] 2.16.840.1.513225.3.579.2 .593 1954 Unknown [id number] 2.16.840.1.853611.3.579.2 .1068 1954 Unknown [id number] 2.16.840.1.633804.3.579.2 .1068 1954 Unknown [id number] 2.16.840.1.551340.3.579.2 .1068 1954 Unknown [id number] 2.16840.1.925054.3.579.2 .356 1954 Unknown [id number] 2.16840.1.662053.3.579.2 .356 1954 Unknown [id number] 2.16840.1.118423.3.579.2 .356 1954 Unknown [id number] 2.16.840.1.165519.3.579.2 .356 1954 Unknown [id number] 2.16840.1.981884.3.579.2 .356 1954 Unknown [id number] 2.16840.1.753726.3.579.2 .356 1954 Unknown [id number] 2.16.840.1.705584.3.579.2 .1245 1954 Unknown [id number] 2.16840.1.228877.3.579.2 .1246 1954 Unknown [id number] 2.16.840.1.291046.3.579.2 .1286 1954 Unknown [id number] 2.16.840.1.453006.3.579.2 .1244 1954 Unknown [id number] 2.16.840.1.824876.3.579.2 .1244 1954 Unknown [id number] 2.16.840.1.981126.3.579.2 .1244 Medicare [id number] Medicare Medicare [id number] Private Health Insurance [id number] Unknown Unknown [id number] 2.16.840.1.323737.3.579.2 .531 Unknown [id number] 2.16.840.1.435927.3.579.2 .531 Unknown [id number] 2.16.840.1.677974.3.579.2 .531 Unknown [id number] 2.16.840.1.522193.3.579.2 .531 Unknown [id number] 2.16.840.1.861735.3.579.2 .531 Unknown [id number] 2.16.840.1.356043.3.579.2 .531 Social History Date Type Detail Facility Start: 10-09-2021 End: 10-06-2024 Caffeine use Caffeine use [facility] Comment on above: 1 1/2 daily (Pop); Start: 1955 Sex Assigned At Female [facility] Start: 10-09-2021 End: 10-06-2024 Sex Assigned At [facility] Start: 02-25-2023 End: 05-31-2024 Tobacco smoking status NHIS Never smoked tobacco [facility] Work Phone: Start: 02-25-2023 Tobacco use and exposure Smokeless tobacco non-user [facility] Work Phone: Start: 1955 Sex Assigned At Not on file [facility] Work Phone: Start: 02-15-2023 End: 10-06-2024 Exposure to SARS-CoV-2 (event) Not sure [facility] Start: 08-29-2023 End: 10-06-2024 Alcoholic beverage intake Lifetime non-drinker (finding) [facility] Work Phone: Start: 05-31-2024 End: 09-07-2024 Sex Female (finding) [facility] Functional Status Date Assessment Result Facility 10-09-2021 PHQ-9 [id number] Moderate (10-14) [facility] 250 DO Work Phone: Clinical Notes 08-02-2021 to 12-31-2024 Note Date & Type Note Facility 12-31-2024 Evaluation note Diagnosis Onset Date Resolution Bronchitis acute December 31, 2 025 1:03pm Heart failure acute December 1:03pm Costovertebral (angle) tenderness, bilateral acute February 10:02am Lumbar pain acute February 04, 2025 10:02am Urinary frequency acute February 04, 2025 10:02am [facility] Work Phone: 1(705) 278-546206-04-2025 History of Present illness Narrative* Lupe Rosado MD - 10/06/2024 9:40 AM EDT HPI Patient is in the office for [...] orthopnea PND or AICD discharge. [facility]. Her weight remains above target and class II obesityBMI 38 kg/m . Lab data from May [...] AICD, device is assessed by electrophysiology at [facility], last device check September 10, 2024 was available for review, it demonstrated no abnormalities and the data were sharedwith the patient 3-status post cardiac catheterization at [facility] was normal, this was back in [...] signing my name below, I, Scarlet Deleon LPN, Scribe attest that this documentation has [...] exam, discussion and plan. documented in this [facility] Work Phone: 1(368) 618-404506-04-2025 Instructions* Patient Instructions* Scarlet Loomis LPN - 10/06/2024 9:40 AM [...] Same medications Follow up documented in this [facility] Work Phone: 1(481) 390-605502-10-2025 Evaluation note* Diagnosis Onset Date Resolution Status Admit Date Right wrist fracture acute Febr uary 2024 1:11pm Abnormal weight gain acute Ty h 2024 8:41am Depression acute July 26 8:41am Heart failure acute July 26, 2024 8:41am Impaired fasting glucose acute July 26, 2024 8:41am Obesity, Class II, BMI 35-39.9 acute July 26, 2024 8:41am Obstructive sleep apnea acute M arch 2024 8:41am Osteoarthritis acute July 8:41am [facility] Work Phone: 1(956) 538-913702-06-2025 History of Present illness Narrative* Lupe Rosado [...] AICD, device is assessed by electrophysiology at [facility] 3-cardiac catheterization 8 years ago at [facility] was normal 4-sleep apnea supposed to [...] By signing my name below, I, Jyotsna DenneyBeau WILKERSON , Scribe attest that this documentation has [...] exam, discussion and plan. [facility] Work Phone: 1(706) 201-527602-06-2025 Instructions* Patient Instructions* Jyotsna Thayer LPN - [...] through Care Everywhere. * Heart Healthy Diet (Libyan) [facility] Work Phone: [phone]) 612-623701-27-2025 Evaluation note* Diagnosis Onset Date Resolution Status Admit Date Depression acute May 31, 2024 11:18am Heart failure acute May 11:18am Impaired fasting glucose acute May 31, 2024 11:18am Obesity, Class II, BMI 35-39.9 acute May 31, 2024 11:18am Obstructive sleep apnea acute J anuary 2024 11:18am Osteoarthritis acute May 312024 11:18am [facility] Work Phone: 1(109) 478-726501-27-2025 Evaluation note* Diagnosis Onset Date Resolution Status Admit Date Depression acute May 31, 2024 11:18am Heart failure acute May 11:18am Impaired fasting glucose acute May 31, 2024 11:18am Obesity, Class II, BMI 35-39.9 acute May 31, 2024 11:18am Obstructive sleep apnea acute J anuary 2024 11:18am Osteoarthritis acute May 312024 11:18am Right wrist fracture acute 2024 1:11pm [facility] Work Phone: [phone] Evaluation note* Diagnosis Onset Date Resolution Status [...] acute 2024 8:41am Osteoarthritis acute July 8:41am [facility] Work Phone: 1(886) 996-753010-29-2024 Evaluation note* Diagnosis Onset Date Resolution Status Admit Date Depression acute March 02, 2024 10:47am [facility] Work Phone: 1([phone]) 786-907607-16-2024 History of Present illness Narrative* Lupe Rosado [...] AICD, device is assessed by electrophysiology at [facility] 3-cardiac catheterization 8 years ago at [facility] was normal 4-sleep apnea supposed to [...] exam, discussion and plan. documented in this [facility] Work Phone: 1(223) 225-453707-16-2024 Instructions* Patient Instructions* Scarlet Loomis LPN - [...] 6 months with lab documented in this [facility] Work Phone: 1(761) 223-701704-26-2024 History of Present illness Narrative* Daphne Mayes [...] generator change for generator senescence in 2021. [employer]tronic DTPA 2 QQ biventricular ICD. Performed device [...] dictation application being used. [facility] Work Phone: [phone]) 833-965104-26-2024 Instructions* Patient Instructions* Anel Samano RN - [...] MD, FACC, FACP, FHRS [facility] Work Phone: 1(610) 967-461801-24-2024 Evaluation note* Encounter Date Diagnosis Assessment Notes Treatment Notes Treatment Clinical Notes May, Influenza A (ICD-10 - J10.1) resolved. discussed symptomatic care May, Acute bronchitis, unspecified organism (ICD-10 - J20.9) No further antibiotics or steroids indicated. Recommened conservative measures for help w laryngitis. May, Cardiomyopathy as manifestation of underlying disease (ICD-10 - I43) Pt states she has appt today w her inventory clerk. [employer] Other 01-08-2024 History of Present illness Narrative* Lupe Rosado MD - 05/12/2023 1:30 PM EST Subjective Nya Bell is a 67 y.o. female Chief Complaint Follow-up HPI Patient is in the office for follow-up for the problems noted below. She was in [place] recently and had flu syndrome which left her with significant bronchitis that was noted during today's visit. Her lab data from [place] was reviewed, cardiac enzymes were normal other [...] AICD, device is assessed by electrophysiology at [facility] 3-cardiac catheterization 8 years ago at [facility] was normal 4-sleep apnea supposed to [...] of Lupe Rosado MD. documented in this encounterD[facility] [facility] Work Phone: 1(355) 914-186101-08-2024 Instructions* Patient Instructions* Africa Noland LPN - [...] follow up per routine [facility] Work Phone: [phone]) 579-345510-24-2023 History of Present illness Narrative* Lynn Jorgensen, NATE-GRIP BOSS - 02/25/2023 10:00 AM EDT CARDIOLOGY OFFICE VISIT CHIEF COMPLAINT Chief Complaint Patient presents with Device Check Routine check up HISTORY OF PRESENT ILLNESS HPI The patient is a 67-year-old female who is followed for nonischemic cardiomyopathy with a left ventricular ejection fraction improved to 60 to 65% per 2D echocardiogram dated November 22, 2022, [place] [employer] class II- III, stage C [...] times daily ergocalciferol (Vitamin D-2) 50 MCG (2000 UT) capsule capsule 1 capsule, oral, Daily, [...] per 2D echocardiogram dated November 22, 2022, [place] [employer] class III, stage C heart failure. 2. Upgrade to an AV biventricular ICD on August 02, 2021 (Medtronic cobalt XT HF Quad DENTAL INSURANCE COORDINATOR-D). Initial implant on January 25, 2015. 3. Valvular heart disease consisting of mild MR per 2D echocardiogram dated November 22, 2022. 4. Left heart catheterization in 2014 revealing normal coronaries at [facility]. 5. Obstructive sleep apnea, noncompliant with [...] furosemide. 2. Obtain ICD checks per the [facility] device clinic as scheduled. Patient was instructed to obtain an in clinic device check at [facility] approximately 2 weeks prior to the office [...] to prepare this document. documented [facility] Work Phone: 1(863) 575-226310-24-2023 Instructions* Patient Instructions* ISAI Mora - 02/25/2023 10:00 AM EDT When taking the lasix, increase dietary potassium intake (orange juice, bananas, skin on potatoes) documented in [facility] Work Phone: [phone]) [phone] Evaluation note* Encounter Date Diagnosis Assessment Notes Treatment Notes Treatment Clinical Notes Jan, Bronchitis (ICD-10 - J40) Discussed diagnosis with patient. Patient to take antibiotic daily with food as prescribed. Finish entire course of antibiotic. Proair inhaler sent today for patient to use PRN cough/wheezing/short ness of breath. Anol-bbj-anebkma antipyretics as needed. Warning signs and symptoms reviewed with patient today. Patient to go immediately to the ER should she experience any of these. Patient to notify office should her symptoms persist and not improve. Patient verbalizes understanding and agrees to treatment plan. [employer] Other 08-29-2023 Evaluation note* Encounter Date Diagnosis Assessment Notes Treatment Notes Treatment Clinical Notes Dec, Bronchitis (ICD-10 - J40) Discussed diagnosis with patient. Finish entire course of antibiotic. Proair inhaler sent today for patient to use PRN cough/wheezing/short ness of breath. Tessalon Pearles ordered to take as needed for cough. Increase fluids and rest. Lmpp-kkr-fddaxym antipyretics as needed. Warning signs and symptoms reviewed with patient today. Patient to go immediately to the ER should she experience any of these. Patient to notify office should her symptoms persist and not improve. Patient verbalizes understanding and agrees to treatment plan. [employer] Other 08-22-2023 Evaluation note* Encounter Date Diagnosis Assessment Notes Treatment Notes Treatment Clinical Notes Dec, Acute pain of right shoulder (ICD-10 - M25.511) Check xray. Add meds for pain relief and muscle relaxation. Will call pt w xray results. Dec, Chest congestion (ICD-10 - R09.89) Start w CXR and assess for pneumonia - will base treatment on CXR results later today. [employer] Other 02-16-2023 NoteCONSULTATION CONSULTATION DATE: 06/20/2022 HISTORY [...] in the office thereafter.[id number] NoteCONSULTATION CONSULTATION DATE: 05/23/2022 HISTORY OF PRESENT [...] in the clinic thereafter.[facility] [id number] Evaluation note* Encounter Date Diagnosis Assessment Notes Treatment Notes Treatment Clinical Notes May, Vitamin D deficiency (ICD-10 - E55.9) [employer] Other 01-17-2023 Evaluation note* Encounter Date Diagnosis [...] - I43) Reviewed notes from her specialist [employer] Other 12-06-2022 NoteCONSULTATION CONSULTATION DATE: 04/09/2022 CHIEF [...] was encouraged to follow up with the inventory clerk with regards to her pacemaker. The patient is looking to schedule herself with regards to a physical and blood work by Dr. Pereira. CC: Anupam Pereira M.D.[facility] [id number] NotePROCEDURE: XR FINGER MIN 2 VIEWS COMPARISON: None. HISTORY: Acquired deformity of right finger FINDINGS: BONES:Persistent flexion of the fourth finger. No acute fracture or dislocation SOFT TISSUES:Soft tissue swelling EFFUSION:None visible. OTHER: Negative. IMPRESSION: Soft tissue swelling, no acute fracture Electronically authenticated by: CECY CHRISTIAN Date: 2022-02-05 07:14[facility]03-31-2022 NoteElectrophysiology Procedure TestingPlease click on the link to view the study images (Normal)[facility] 250 DO Work Phone: [phone]) [phone] NoteElectrophysiology Procedure Testing Please click on the link to view the study images (Normal)[facility] 250 DO Work Phone: [phone]) [phone] NoteElectrophysiology Procedure Testing Please click on the link to view the study images (Normal)[facility] 3 DO Work Phone: [phone]) [phone] NoteElectrophysiology Procedure Testing Please click on the link to view the study images (Normal)[facility] [place] 320 DO Work Phone: Chief complaint+Reason for visit Narrative* Chief Complaint headache, back pain, sore throat, ear pain Memory Concerns Reason for Visit COVID-19 [facility] Work Phone: Evaluation noteNo assessment information available [facility] Work Phone: Evaluation noteNo InformationNort [employer] Other Evaluation note* Diagnosis ICD (implantable cardioverter-defibrillator) in place- Primary Morbid obesity (CMS/HCC) Morbid obesity Chronic systolic congestive heart failure (CMS/HCC) Cardiomyopathy, unspecified type (CMS/HCC) Dyspnea on exertion Other dyspnea and respiratory abnormality Obstructive sleep apnea syndrome in adult Other fatigue documented in [facility] Work Phone: Evaluation note* Diagnosis [...] discuss treatment options documented in this encounter [facility] Work Phone: Evaluation note* Diagnosis Cardiomyopathy, unspecified type (CMS/HCC)- Primary ICD (implantable cardioverter-defibrillator) in place Obstructive sleep apnea syndrome in adult Class 2 obesity without serious comorbidity with body mass index (BMI) of 37.0 to 37.9 in adult, unspecified obesity type documented in this encounter [facility] Work Phone: Evaluation note* Diagnosis ICD (implantable cardioverter-defibrillator) in place documented in this encounter [facility] Work Phone: Evaluation note* Diagnosis Onset Date Resolution Status COVID-19 [facility] Work Phone: Evaluation note* Diagnosis Cardiomyopathy, unspecified type (Multi) Chronic systolic congestive heart failure (Multi) ICD (implantable cardioverter-defibrillator) in place Obstructive sleep apnea syndrome in adult Fatigue, unspecified type Never smoked cigarettes Class 2 obesity without serious comorbidity with body mass index (BMI) of 37.0 to 37.9 in adult, unspecified obesity type documented in this encounter [facility] Work Phone: Evaluation note* Diagnosis ICD (implantable cardioverter-defibrillator) in place- Primary Chronic systolic congestive heart failure Fatigue, unspecified type Obstructive sleep apnea syndrome in adult Never smoked cigarettes BMI 38.0-38.9,adult Class 2 obesity documented in this encounter [facility] Work Phone: Evaluation note* Diagnosis Nonischemic cardiomyopathy (Multi)- Primary Other primary cardiomyopathies ICD (implantable cardioverter-defibrillator) in place Obstructive sleep apnea syndrome in adult Never smoked cigarettes BMI 38.0-38.9,adult Class 2 obesity Other fatigue documented in this encounter [facility] Work Phone: History general Narrative [...] ABLATION 06/2016 Hospitalization History See Sx Hx [employer] Other History general Narrative - Reported* Type [...] See Sx Hx Hospitalization History [facility] 06/03/22 [employer] Other Reason for referral (narrative)* Consultation (Routine) - Authorized Specialty Diagnoses / Procedures Referred By Talha shea Referred To Contact Cardiology Diagnoses ICD (implantable cardioverter-defibrillator ) in place Procedures Follow Up In Cardiology Lynn Jorgensen, RAP ARTIST-GRIP BOSS [address] [facility], [address] [address] Daphne Mayes MD [address] [facility], [address] [address] Referral ID Status Reason Start Date Expiration Date V isits Requested Visits Authorized [id number] Authorized 02/25/2023 02/25/2024 1 1 [facility] Work Phone: Rezvyq for referral (narrative)* Consultation (Routine) - Authorized Specialty Diagnoses / Procedures Referred By Contac t Referred To Contact Cardiology Diagnoses Cardiomyopathy, unspecified type (CMS/HCC) Procedures Follow Up In Cardiology Lupe Rosado MD [address] [facility], [place] [address] [place] [address] Lupe Rosado MD [address] [place] [address] 2, [place] [address] [place] [id number] Referral ID Status Reason Start Date Expiration Date V isits Requested Visits Authorized [id number] Authorized 05/12/2023 05/11/[address] [facility] Work Phone: Retwnc for referral (narrative)* Consultation (Routine) - Authorized Specialty Diagnoses / Procedures Referred By Contac t Referred To Contact Cardiology Diagnoses Chronic systolic congestive heart failure (Multi) Procedures Follow Up In Cardiology Lupe Rosado MD [address] [facility], [place] [address] [place] [address] Lupe Rosado MD [address] [place] [address] 2, [address] [address] Referral ID Status Reason Start Date Expiration Date V isits Requested Visits Authorized [id number] Authorized 11/18/2023 11/17/2024 1 1 [facility] Work Phone: Relhbo for referral (narrative)No reason for referral information availableTrinity Health System Work Phone: Reason for visit Narrative* Imaging (Routine) - Pending Review Specialty Diagnoses / Procedures Referred By Talha t Referred To Contact Cardiology Diagnoses ICD (implantable cardioverter-defibrillator) in place Procedures Cardiac Device Check - In Clinic Daphne Mayes MD [address] [facility] [address], [place] [address] [place] [address] Phone: tel: fax: Referral ID Status Reason Start Date Expiration Date Visits Requested Visits Authorized [id number] Pending Review Perform Procedure 08/29/2023 08/28/2024 52 52 [facility] Work Phone: Summary Purpose Family [...] Complaint cardiomyopathy [facility] Chief Complaint defib machine issues headache, back pain, sore throat, ear pain Chief Complaint headache, back pain, sore throat, ear pain Memory Concerns cardiomyopathy CC Adult Risk Stratification Reason for Visit COVID-19 Chief Complaint Admit Date Memory Concerns March 02, 2024 1 0:47am cardiomyopathy March 03, 2024 1 0:19am CC Adult Risk Stratification February 12:02pm [facility] May 31 11:18am Reason for Visit Admit Date Depression March 02, 2024 1 0:47am Chief Complaint Admit Date [facility] May 31 11:18am defib machine issues June 03, 2024 2:28pm Reason for Visit Admit Date Depression May 31, 2024 1 1:18am Heart failure May 31, 2024 1 1:18am Impaired fasting glucose May 31, 025 11:18am Obesity, Class II, BMI 35-39.9 May 062024 11:18am Obstructive sleep apnea May 31 11:18am Osteoarthritis May 31, 2024 1 1:18am Chief Complaint Admit Date [facility] May 31 11:18am defib machine issues June 03, 2024 2:28pm Amb Documentation June 08, 2024 1 :31pm [facility] ER f/u, broken wrist right June 14, 2024 1:11pm Chief Complaint Admit Date [facility] May 31 11:18am defib machine issues June 03, 2024 2:28pm Amb Documentation June 08, 2024 1 :31pm [facility] ER f/u, broken wrist right June 14, 2024 1:11pm R73.01 I50.9 I48.91 M17.10 E66.812 F33.4 1 .July 12, 2024 2:11pm Reason for Visit Admit [...] 2024 8:4 1am Chief Complaint Admit Date [facility] May 31 11:18am defib machine issues June 03, 2024 2:28pm Amb Documentation June 08, 2024 1 :31pm [facility] ER f/u, broken wrist right June 14, 2024 1:11pm R73.01 I50.9 I48.91 M17.10 E66.812 F33.4 1 July 12, 2024 2:11pm S52.591A August 03, 2024 7:37 am Chief Complaint Admit Date [facility] ER f/u, broken wrist right June 14, [...] Nose December 31, 2024 1:03pm Chief Complaint Admit Date defib machine issues [...] Urinary frequency February 04, 2025 10 :02am Chief Complaint Patient here S/P gen change. Done by Dr. Mayes at [facility] on 07/19/2021. Dr. Gaudencio Mendoza MD in [...] AICD, device is assessed by electrophysiology at [facility], had recent battery change with no complications. * 3 cardiac catheterization 7 years ago at [facility] was normal * 4 extreme fatigue [...] AICD, device is assessed by electrophysiology at [facility], had recent battery change with no complications. * 3 cardiac catheterization 7 years ago at [facility] was normal * 4 extreme fatigue [...] AICD, device is assessed by electrophysiology at [facility], had recent battery change with no complications. * 3 cardiac catheterization 7 years ago at [facility] was normal * 4 extreme fatigue [...] AICD, device is assessed by electrophysiology at [facility] * 3 cardiac catheterization 7 years ago at [facility] was normal * 4 extreme fatigue [...] AICD, device is assessed by electrophysiology at [facility] * 3 cardiac catheterization 7 years ago at [facility] was normal * 4 extreme fatigue [...] scheduled. We will arrange for that at [facility]. Her weight is unchanged from [...] AICD, device is assessed by electrophysiology at [facility] * 3 cardiac catheterization 7 years ago at [facility] was normal * 4 fatigue of [...] - Remote Daphne Mayes MD [address] [facility], [address] [address] Referral ID Status Reason Start Date Expiration Date Visits Requested Visits Authorized [id number] Pending Review Perform Procedure 08/29/2023 08/28/2024 52 52 Specialty Diagnoses / Procedures Referred By Contac t Referred To Contact Cardiology Diagnoses ICD (implantable cardioverter-defibrillator) in place Procedures Cardiac Device Check - In Clinic Daphne Mayes MD [address] [facility], [address] [address] Referral ID Status Reason Start Date Expiration Date Visits Requested Visits Authorized [id number] Pending Review Perform Procedure 08/29/2023 08/28/2024 52 52 Specialty Diagnoses / Procedures Referred By Contac t Referred To Contact Diagnoses ICD (implantable cardioverter-defibrillator) in place Procedures ECG 12 lead (Clinic Performed) Daphne Mayes MD [address] [facility], [address] [address] Referral ID Status Reason Start Date Expiration Date V isits Requested Visits Authorized [id number] Authorized 08/29/2023 08/28/2024 1 1 Additional Source Comments INFORMATION SOURCE (unrecogn ized section and content) DATE CREATED AUTHOR 10/24/2017 [facility] DATE CREATED AUTHOR AUTHOR'S ORGANIZ ATION 11/13/2018 [facility] DATE CREATED AUTHOR AUTHOR'S ORGANIZ ATION 08/02/2020 [facility] DATE CREATED AUTHOR AUTHOR'S ORGANIZ ATION 08/22/2022 [facility] DATE CREATED AUTHOR AUTHOR'S ORGANIZ ATION 10/14/2022 [facility] DATE CREATED AUTHOR AUTHOR'S ORGANIZ ATION 11/23/2022 [facility] DATE CREATED AUTHOR AUTHOR'S ORGANIZ ATION 12/10/2022 [facility] DATE CREATED AUTHOR AUTHOR'S ORGANIZ ATION 09/03/2023 [facility] DATE CREATED AUTHOR AUTHOR'S ORGANIZ ATION 03/05/2024 [facility] DATE CREATED AUTHOR AUTHOR'S ORGANIZ ATION 05/23/2024 [facility] DATE CREATED AUTHOR AUTHOR'S ORGANIZ ATION 10/07/2024 [facility] DATE CREATED AUTHOR AUTHOR'S ORGANIZ ATION 12/18/2024 [facility] Care Teams (unrecognized sec tion and [...] July 12, 2024 End: July 12, 2024 Rosemarie Lea APRN Attending Provider Active [...] Active Daphne Mayes MD Attending Provider Active Director Education Relationship Specialty Start Date End Date Anupam Pereira MD [address] [place] [address] PCP - General 09/30/19 Team Status: Inactive Member Role Status Dates Anupam Pereira MD Attending Provider Active St art: May 08, 2023 End: May 08, 2023 Team Status: Inactive Member Role Status Dates Anupam Pereira MD Primary Care Provider Active Start: May 28, 2023 End: May 28, 2023 Gaudencio Mendoza MD Attending Provider Active Start: May 28, 2023 End: May 28, 2023 Director Education Relationship Specialty Start Date End Date Anupam Pereira MD [address] [place] [address] PCP - General Family Medicine 04/16/23 Lynn Jorgensen, RAP ARTIST-GRIP BOSS [address] [facility], [facility] [address] [place] [address] Nurse Practitioner Cardiology 03/07/23 Director Education Relationship Specialty Start Date End Date Anupam Pereira MD [address] [place] [address] PCP - General Family Medicine 04/16/23 Lynn Jorgensen, RAP ARTIST-GRIP BOSS [address] [place] [address], [facility] [address] [place] [address] Nurse Practitioner Cardiology 03/07/23 Team Status: Inactive Member Role Status Dates Anupam Pereira MD Primary Care Provider Active Start: December 02, 2023 End: December 02, 2023 Gaudencio Mendoza MD Attending Provider Active Start: December 02, 2023 End: December 02, 2023 Director Education Relationship Specialty Start Date End Date Anupam Pereira MD [address] [place] [address] PCP - General Family Medicine 04/16/23 Lynn Jorgensen, RAP ARTIST-GRIP BOSS [address] [place] [address], [facility] [address] [place], [place] [id number] Nurse Practitioner Cardiology 03/07/23 Team Status: Active Member Role Status Dates Anupam Pereira MD Primary Care Provider Active Start: March 03, 2024 uLpe Rosado MD Other Provider Active Start: March 03, 2024 Chasity Harper MD Attending Provider Active Start: March 03, 2024 Team Status: Active Member Role Status Dates Anupam Pereira MD Primary Care Provide r, Attending Provider Active Start: March 03, 2024 Director Education Relationship Specialty Start Date End Date Anupam Pereira MD [address] [place] [address] PCP - General Family Medicine 04/16/23 Lynn Jorgensen, RAP ARTIST-GRIP BOSS [address] [facility], [place] [address] [place] [address] Nurse Practitioner Cardiology 03/07/23 Director Education Relationship Specialty Start Date End Date Anupam Pereira MD [address] [place] [address] PCP - General Family Medicine 04/16/23 Daphne Mayes MD [address] [facility], [place] [address] [place] [address] Ceramic Tile Installer Electrophysiology 03/24/24 Team Status: Active Member Role Status Dates Anupam Pereira MD Primary Care Provider Active Start: June 08, 2024 Solange Isbell CMA Attending Provider Active Start: June 08, 2024 Team Status: Active Member Role Status Dates Anupam Pereira MD Primary Care Provider Active Start: June 03, 2024 Chasity Harper MD Attending Provid er, Other Provider Active Start: June 03, 2024 Director Education Relationship Specialty Start Date End Date Anupam Pereira MD [address] [place] [address] PCP - General Family Medicine 04/16/23 Daphne Mayes MD [address] [facility], [place] [address] [place] [address] Ceramic Tile Installer Electrophysiology 03/24/24 Team Status: Inactive Member Role Status Dates Anupam Pereira MD Primary Care Provider Active Start: December 31, 2024 End: December 31, 2024 Anupam Pereira MD Attending Provider Active St art: December 31, 2024 End: December 31, 2024 Team Status: Inactive Member Role Status Dates Anupam Pereira MD Primary Care Provider Active Start: February 04, 2025 End: February 04, 2025 Anupam Pereira MD Attending Provider Active St art: February 04, 2025 End: February 04, 2025 Goals (unrecognized section and content) Goals may [...] place Specialty Diagnoses / Procedures Referred By Conthawa t Referred To Contact Cardiology Diagnoses Chronic systolic congestive heart failure Procedures Follow Up In Cardiology Lupe Rosado MD [address] [place] [address], [address] [address] Phone: tel: fax: Lupe Rosado MD [address] [place] [address] 2, [address] [address] Phone: tel: fax: Referral ID Status Reason Start Date Expiration Date V isits Requested Visits Authorized [id number] Authorized 06/10/2024 06/10/2025 1 1 Reason Comments Device Check Routine check up Reason Comments Follow-up 6 month Specialty Diagnoses / Procedures Referred By Contac t Referred To Contact Cardiology Diagnoses ICD (implantable cardioverter-defibrillator ) in place Procedures Follow Up In Cardiology Lynn Jorgensen, NATE-PAMELA [address] [facility], [address] [address] Daphne Mayes MD [address] [facility], [address] [address] Referral ID Status Reason Start Date Expiration Date V isits Requested Visits Authorized [id number] Authorized 02/25/2023 02/25/2024 1 1 Reason Comments Follow-up 6 month Reason Comments Follow-up 6 months Specialty Diagnoses / Procedures Referred By Contac t Referred To Contact Cardiology Diagnoses Cardiomyopathy, unspecified type (Multi) Procedures Follow Up In Cardiology Lupe Rosado MD [address] [facility] 2, [address] [address] Lupe Rosado MD [address] [facility] 2, [address] [address] Referral ID Status Reason Start Date Expiration Date V isits Requested Visits Authorized [id number] Authorized 05/12/2023 05/11/2024 1 1 Referral ID Status Reason Start Date Expiration Date V isits Requested Visits Authorized [id number] Authorized 11/18/2023 11/17/2024 1 1 FOR RECORDS [...] BE BASED ON THE PRIMARY CLINICAL RECORDS. [facility] provides no warranty or guarantee of the accuracy or completeness of information in this document.
[2025-02-15 11:41] VITALS: BP 167/84; PULSE 65; TEMP 37.1; O2SAT 96; BMI 35.2
--- NOTE | 2025-02-15 11:53 | XR_ITS ---
The [address] [address] Patient Name: NYA REDMOND MRN: [id number] date: 1955 Sex: F Assigned Patient Location: ER Current Patient Location: ER Accession/Order Number: [id number] Exam Date: 02/15/2025 12:11 Report Date: 02/15/2025 12:33 At the request of: EUGENIA WREN MD Procedure: XR foot RT min 3V RIGHT FOOT - 3 views CLINICAL HISTORY: Atraumatic pain and swelling for one week. No known injury. COMPARISON: None FINDINGS: Soft tissue swelling is noted. No acute bony process is seen. Plantar spurring. No bony erosions. XR/XR foot RT min 3V IMPRESSION: SOFT TISSUE SWELLING. NO ACUTE BONY PROCESS. Impression dictated by: Elroy Barros Jr., DBeauOBeau 02/15/2025 12:33 PM Dictation Location: [place] [address] Electronically authenticated by: [id number] Date: 02/15/2025 12:33
--- NOTE | 2025-02-15 11:54 | ED.GENADUL1 ---
HPI HPI - General Adult General Chief complaint: Extremity Problem, Nontraumatic Stated complaint: LOWER EXTREMITY PAIN - RT FOOT Time Seen by Provider: 02/15/25 11:32 Source: patient Mode of arrival: Wheelchair Limitations: no limitations History of Present Illness HPI narrative: 69-year-old female presents for pain in her right foot. She gives no history of injury and the pain goes up her leg to the knee and in particular the calf is hurting. She has no history of DVT. She tore her Achilles tendon in that same leg 1 or 2 years ago but did not need surgery. She has had this for about a week and it is getting worse. Related Data Home Medications ?Medication ?Instructions ?Recorded ?Confirmed omeprazole 20 mg capsule,delayed 20 mg PO DAILY 12/25/23 02/15/25 release nebivolol 2.5 mg tablet mg 02/15/25 sertraline 50 mg tablet mg 02/15/25 valsartan 80 mg tablet mg 02/15/25 Previous Rx's ?Medication ?Instructions ?Recorded hydrocodone 5 mg-acetaminophen 325 1 tab PO Q6H PRN pain 2 days #6 07/11/24 mg tablet tabs acetaminophen 300 mg-codeine 30 mg 1 tab PO Q6H PRN pain 5 days #20 02/15/25 tablet tabs ibuprofen 800 mg tablet 800 mg PO Q8H PRN pain #20 tabs 02/15/25 Allergies Allergy/AdvReac Type Severity Reaction Status Date / Time adhesive tape AdvReac Mild Rash Verified 02/15/25 11:44 Opioid HPI Opioid Management Most Recent Opioid Data: Last Pain Scale 10 Today, 12:24 Last ED Pain Assessment Today, 11:52 Last MAR Pain Assessment Today, 12:24 Review of Systems ROS Narrative A ten point review of systems is negative except as noted above. PFSH PFSH Social History Little interest or pleasure in doing things: not at all Feeling down, depressed, or hopeless: not at all Exam Narrative Exam Narrative: Nurses note and vital signs reviewed and patient is not hypoxic. General:The patient appears uncomfortable. Skin:Warm, dry, no pallor noted.There is no rash noted. Head:Normocephalic, atraumatic Eye: Normal conjunctiva, no drainage Ears, Nose, Mouth, and Throat: oral mucosa is moist. Nares patent. Cardiovascular:Regular Rate and Rhythm Respiratory:Patient is in no distress, no accessory muscle use Back:non-tender, no CVA tenderness bilaterally to percussion. GI: Soft and nontender Musculoskeletal: The dorsum of the right foot is swollen. There is no particular swelling or erythema at the first MTP. Dorsalis pedis pulse 2+. Skin intact. She has tenderness in the right calf as well. The knee is not tender or swollen Neurological:A&O, normal speech Psychiatric:Cooperative, tearful Constitutional Vital Signs, click to edit/add: Last Vital Signs Temp 98.7 F 02/15/25 11:41 Pulse 65 02/15/25 11:41 Resp 22 H 02/15/25 11:41 BP 167/84 H 02/15/25 11:41 Pulse Ox 96 02/15/25 11:41 O2 Del Method Room Air 02/15/25 11:41 Course Vital Signs Vital signs: Vital Signs Temperature 98.7 F 02/15/25 11:41 Pulse Rate 65 02/15/25 11:41 Respiratory Rate 22 H 02/15/25 11:41 Blood Pressure 167/84 H 02/15/25 11:41 Pulse Oximetry 96 02/15/25 11:41 Oxygen Delivery Method Room Air 02/15/25 11:41 Temperature 98.7 F 02/15/25 11:41 Pulse Rate 65 02/15/25 11:41 Respiratory Rate 22 H 02/15/25 11:41 Blood Pressure 167/84 H 02/15/25 11:41 Pulse Oximetry 96 02/15/25 11:41 Oxygen Delivery Method Room Air 02/15/25 11:41 Medical Decision Making [facility] Narrative Medical decision making narrative: Doppler is negative and x-ray shows soft tissue swelling but no acute findings otherwise. She will be prescribed ibuprofen and Tylenol 3 and will follow-up with her doctor. Treatment diagnosis and follow-up were discussed with the patient. I not clinically suspect gout and patient agrees, she states she has had gout before and this does not feel anything like gout that she has had in the past. Differential Diagnosis Differential Diagnosis: Fracture, arthritis, DVT, gout Imaging Data X-ray of foot: Radiologist's impression: ITS Impressions Foot X-Ray 02/15/25 11:53 IMPRESSION: SOFT TISSUE SWELLING. NO ACUTE BONY PROCESS. Impression dictated by: Elroy Barros Jr., D.O. 02/15/2025 12:33 PM Dictation Location: [place] [address] Electronically authenticated by: [id number] Y Date: 02/15/2025 12:33 No DVT on Doppler Discharge Plan Discharge Chief Complaint: Extremity Problem, Nontraumatic Clinical Impression: Foot pain, right Patient Disposition: Home, Self-Care Time of Disposition Decision: 13:12 Condition: Good Mode of Transportation: Private Vehicle Prescriptions / Home Meds: New acetaminophen-codeine 300-30 mg tablet 1 tab PO Q6H PRN (Reason: pain) 5 Days Qty: 20 0RF ibuprofen 800 mg tablet 800 mg PO Q8H PRN (Reason: pain) Qty: 20 0RF No Action omeprazole 20 mg capsule,delayed release(DR/EC) 20 mg PO DAILY hydrocodone-acetaminophen 5-325 mg tablet 1 tab PO Q6H PRN (Reason: pain) 2 Days Qty: 6 0RF Rx Instructions: ICD 10- M25.531 valsartan 80 mg tablet sertraline 50 mg tablet nebivolol 2.5 mg tablet Print Language: Citizen Of [place] Instructions: Arthralgia (ED) Referrals: Norma Tapia MD [Primary Care Provider, Family Practice] - 1 week
[2025-02-15] MEDS: KETOROLAC TROMETHAMINE 60 MG/2 ML VIAL IM (12:24)
== END 2025-02-15 13:58 | disposition home or self-care (01) ==
PROVIDERS: Emergency Provider Emergency Medicine; PCP Family Medicine
DX: M79.671 Pain in right foot (principal)
CPT/HCPCS: 73630; 93971; 96372; 99284; J1885

== ENCOUNTER 2025-03-24 11:07 | Outpatient (OUT) | payer MEDICARE, MEDICAID, SELFPAY ==
--- OUTSIDE RECORDS SUMMARY | 2025-03-21 06:57 | XMS_ITS | Continuity of Care Document ---
Author Organization [facility] Address [address] [place] [address] Phone Care Team Providers Care Gunnery/Ordnance Officer Name Role Phone Norma Tapia MD Primary Care Provider Norma Tapia MD Attending Provider Lupe Boswell MD Other Provider Chasity Harper MD Attending Provider Lupe Boswell MD Attending Provider Care Teams Patient Care Team Team Status: Active Member Role/Relationship Status Dates Norma Tapia MD Primary Care Provider Active Visit Care Team Team Status: Inactive Member Role/Relationship Status Dates Norma Tapia MD Primary Care Provider Active Start: December 31, 2024 End: December 31, 2024Fermin Black ProviderActiveStart: December 31, 2024 End: December 31, 2024 Visit Care Team Team Status: Inactive Member Role/Relationship Status Dates Norma Tapia MD Primary Care Provider Active Start: February 04, 2025 End: February 04, 2025Fermin Black ProviderActiveStart: February 04, 2025 End: February 04, 2025 Visit Care Team Team Status: Active Member Role/Relationship Status Dates Norma Tapia MD Primary Care Provider Active Start: March 10, 2025 Lupe Boswell MDOther ProviderActiveStart: March 10, 2025 Fermin Braden ProviderActiveStart: March 10, 2025 Visit Care Team Team Status: Inactive Member Role/Relationship Status Dates Norma Tapia MD Primary Care Provider Active Start: March 10, 2025 End: March 10, 2025Fermin Carrillo ProviderActiveStart: March 10, 2025 End: March 10, 2025 Patient Care Team Team Status: Inactive Member Role/Relationship Status Dates Norma Tapia MD Primary Care Provider Active Start: March 21, 2025 End: March 21, 2025Fermin Black ProviderActiveStart: March 21, 2025 End: March 21, 2025 Chief Complaint and Reason for Visit Chief Complaint Admit Date Phlegm w Blood, Bloody Nose December 31, 2024 1:03pm Back Pain February 04, 2025 10 :02am cardiomyopathy March 10, 2025 9 :30am cardiomyopathy March 10, 2025 2 :10pm pain referral March 21, 2025 11:01am Reason for Visit Admit Date Bronchitis December 31, 2024 1: 03pm Heart failure December 31, 2024 1: 03pm Costovertebral (angle) tenderness, bilat eral February 04, 2025 10:02am Lumbar pain February 04, 2025 10 :02am Urinary frequency February 04, 2025 10 :02am Lumbar pain March 21, 2025 11:01am Reason for Referral Type Reason(s) Provider Provider Contact Information P sarkis Address Start Date Lumbar back pain M54.50 - Low back pain, iaqjjxdepshF27.50 - Low back pain, unspecifiedBellevue Pain ManagementWork Phone: [phone] [facility] [address], [address] [facility] [address]Tbvuwgzc [address] Allergies, Adverse Reactions, Alerts Allergen Type Severity Reaction Last Updated Verified Status adhesive tape Allergy Moderate Rash March 21, 2025 11:20 am Yes Active Social History Smoking Status Status Start Date End Date Date of Observa tion Never smoked tobacco (finding) May 31, 2024 11:42am Observation Status Observation Response Date of Response Legal Sex Female (finding) Sex Assigned At BirthFemaleMay 1955 Family History Relationship Condition Age at Onset Recorded Date/T amparo Not Specified Cerebrovascular accident (CVA) Unknown fatherDeceasedUnknownHeart diseaseUnknownDiabetes mellitusUnknownMyocardial infarctionUnknownmotherDeceasedUnknownDiabetes mellitusUnknownpaternal grandfatherDeceasedUnknownDiabetes mellitusUnknownpaternal grandmotherDeceased UnknownDiabetes mellitusUnknownmaternal grandfatherMyocardial infarctionUnknown DeceasedUnknownbrotherDiabetes mellitusUnknown Problems Active Problems Problem Diagnosis/Recorded Date Onset Date Status Ravi yao COVID-19 December 22, 2023 1:46pm Unknown Active Costovertebral (angle) tenderness, bilateralOctober 2024 9:40amUnknown ActiveObstructive sleep apneaJanuary 2024 12:35pmUnknownActiveHeart failureJanuary 2024 11:27amUnknownActiveUrinary frequencyOctober 2024 9:41amUnknownActiveAbnormal weight gainMarch 2024 8:16amUnknownActive Atrial fibrillationJanuary 2024 11:27amUnknownActiveDepressionAugust 2023 12:56pmUnknownActiveImpaired fasting glucoseJanuary 2024 12:53pm UnknownActiveObesity, Class II, BMI 35-39.9January 2024 12:11pmUnknown ActiveOsteoarthritisMay 2023 3:17pmUnknownActiveArthritis of kneeJanuary 2024 11:28amUnknownActivebilateralLumbar painAugust 2023 12:56pm UnknownActiveBronchitisAugust 2023 12:56pmUnknownActiveInactive/Resolved Problems Problem Diagnosis/Recorded Date Onset Date Status Ravi yao Right wrist fracture June 15, 2024 10:38am Unknown Resolved Medications Medication Status Dose Units Route Directions Qty Days Refills S tart Date Stop Date End Date Reason(s) Instructions Adherence Albuterol Sulfate 90 mcg/actuation HFA aerosol inhaler Discontinued 2 PUFF INHALATION EVERY 4-6 HOURS as needed for shortness of breath or wheezing 6.7 1February 2023 12:00amAugust 2023 1:01pmSertraline 100 mg tablet Nqdtneustoxq797UQKTDjvjb467Bijmthdm 2023 12:00amOctober 2023 2:49pm Sertraline 100 mg tabletDiscontinued0.ROUTE.UAHDOAE473Anaqohy 2023 2:49pm March 02, 2024 10:24amTAKE 1 TABLET BY MOUTH EVERY DAYOmeprazole 20 mg capsule,delayed release(DR/EC)Discontinued0.ROUTE.OTOQDIC948Gmxvzyih 2023 10:49amMarch 2024 10:42amTAKE 1 CAPSULE BY MOUTH EVERY DAYSertraline 50 mg syhzmeQiwdmsooeasr13TENKFrypv409Uxpoazzt 2023 8:34amMay 2024 7:35am Omeprazole 20 mg capsule,delayed release(DR/EC)Discontinued0.ROUTE.QWFOWXJ099 July 06, 2024 10:42amJuly 2024 3:20pmTAKE 1 CAPSULE BY MOUTH EVERY DAY Sertraline 50 mg owrzxePnquwtykibxa31YDSPHrsqt665Juq 2024 7:35amJuly 2024 3:20pmOmeprazole 20 mg capsule,delayed release(DR/EC)Active0.ROUTE.COMPLEX 901July 2024 3:20pmTAKE 1 CAPSULE BY MOUTH EVERY DAYComplies with drug therapySertraline 50 mg ipfgtjEfrzperhrelo49KIDKMvrlv578Qmbh 2024 3:20pm February 10, 2025 7:17amSertraline 50 mg ypxbvdZtmard72RUNBHuuvr708Alwuwqr 2024 7:17amComplies with drug therapyMetformin 500 mg tablet extended release 24 hyMresxhcnmsix4016EWUISwanm149Hwiob 2024 10:35amOctober 2024 9:20am Valsartan 80 mg remvgtJrdfufbgocyk28TKNSZcvfaTazyybwi 2024 12:002024 12:21pmNebivolol 2.5 mg tabletDiscontinued2.5MGPODailyFebruary 2024 12:002024 12:21pmValsartan 80 mg hsufnoCtashd32ZEOREcjfc647 December 31, 2024 12:20pmComplies with drug therapyNebivolol 2.5 mg tabletActive 2.3OCXROyjme172Lhwvta 2024 12:21pmComplies with drug therapyAzithromycin 250 mg knfejmFyczzndxjhjr1JP.XMONNEW15Qofjec 2024 11:00pmOctober 2024 9:20amFor 250 mg dose pack: take 500 mg today (day 1), then 250 mg for 4 days (days 2-5) POCarvedilol 3.125 mg tabletDiscontinued3.125MGPOTwice dailyWellmont L[facility] Hospitalt 2023 11:00pmMarch 2024 7:50amOmeprazole 20 mg capsule,delayed release(DR/EC)Hvlkumvkngqg67PJNIRsibfSettlz 2023 11:00pmDeceer 2023 10:49amSacubitril-Valsartan (Entresto) 49-51 mg dfkdsrBxmiqkzhmidn1OIRBJ Twice dailyWell[facility] Hospitalt 2023 11:00pmFebruary 2024 1:32pmNirmatrelvir- Ritonavir (Paxlovid) 300 mg (150 mg x 2)-100 mg tablets,dose yhamLynflrshhjzv5PJ .KMSJBRV185Ghxdrj 2023 11:00pmOctober 2023 10:24amtake TWO 150 mg tablets of nirmatrelvir with ONE 100 mg tablet of ritonavir twice daily for 5 days POSertraline 50 mg vtegnrBgcxhtueekcf92NUCKQxofo519Cwrnadu 2023 10:23amDecember 2023 8:34amMetformin 500 mg tablet extended release 24 hr Bkrlyweonmqg6499JNLGPeynp808Ntsnlpm 2024 12:00amMarch 2024 10:35am Days 1 through 7 take 1 tab daily. Relevant Diagnostic Tests and/or Laboratory Data Laboratory Results Test Collection Date/Time Result Date/Time Result Interpretation Reference Range Result Comment Performing Site Urine Bilirubin February 04, 2025 2:15pm February 04, 2025 2:15pm NEGATIVE NEGATIVEAnion GapOct2024 2:23pmOctsaint j[facility]ph [facility] 2024 2:23pm11.7Basophils # (Auto)February 04, 2025 2:23pmOctober 2024 2:23pm0.0 10 3/uL0.0-0.1Urine Occult BloodOct2024 2:15pmOctober 2024 2:15pmTRACE-INEGATIVE BUN/Creatinine RatioOct2024 2:23pmOctober 2024 2:23pm22.7 Basophils (%) (Auto)February 04, 2025 2:23pmOctober 2024 2:23pm0.4 %0.2-2.0 Urine AppearanceOct2024 2:15pmOctober 2024 2:15pmCLEARCLEARBlood Urea NitrogenOct2024 2:23pmOctober 2024 2:23pm17.0 mg/dL7.0-18.0 Eosinophils # (Auto)February 04, 2025 2:23pmOctober 2024 2:23pm0.2 10 3/uL 0.0-0.7Urine ColorOct2024 2:15pmOctober 2024 2:15pmLT. YELLOW YELLOWCalcium LevelOct2024 2:23pmOctober 2024 2:23pm9.3 mg/dL 8.5-10.1Eosinophils (%) (Auto)February 04, 2025 2:23pmOctober 2024 2:23pm 2.0 %0.9-7.0Urine Glucose (UA)February 04, 2025 2:15pmOctober 2024 2:15pm NEGATIVE mg/dLNEGATIVEChloride LevelOct2024 2:23pmOctober 2024 2:56id365 mmol/F92-963LrynqoztwjYqccjnr 2024 2:23pmOctober 2024 2:23pm 38.2 %36.0-48.0Urine KetonesOctober 2024 2:15pmOctober 2024 2:15pm NEGATIVE mg/dLNEGATIVECarbon Dioxide LevelOct2024 2:23pmOctober 2024 2:23pm30.2 mmol/L21.0-32.0HemoglobinOct2024 2:23pmOctober 2024 2:23pm12.5 g/dL12.0-16.0Urine Leukocyte EsteraseFebruary 04, 2025 2:15pm February 04, 2025 2:15pmNEGATIVENEGATIVECreatinineOct2024 2:23pm February 04, 2025 2:23pm0.75 mg/dL0.55-1.02Immature Granulocyte # (Auto)February 04, 2025 2:23pmOctober 2024 2:23pm0.03 10 3/uL0.00-0.03Urine Nitrite February 04, 2025 2:15pmOctober 2024 2:15pmNEGATIVENEGATIVEEstimated GFR ()February 04, 2025 2:23pmOct2024 2:23pm>60>=60 mL/min/1.73m 2Immature Granulocyte % (Auto)February 04, 2025 2:pmOctober 2024 2:23pm0.4 %0.0-0.5Urine pHOct2024 2:15pmOct2024 2:15pm 6.05.0-9.0Estimated GFR (Non- AmericanFebruary 04, 2025 2:pmOct2024 2:23pm>60>=60 mL/min/1.73m 2Lymphocytes # (Auto)February 04, 2025 2:23pmOctober 2024 2:23pm1.8 10 3/uL1.2-3.8Urine ProteinFebruary 04, 2025 2:15pmOct2024 2:15pmNEGATIVE mg/dLNEG/TRACEGlucose LevelFebruary 04, 2025 2:23pmOct2024 2:23pm95 mg/kJ98-075Jrolxcjnsrs (%) (Auto)February 04, 2025 2:23pmOctober 2024 2:23pm24.4 %20.5-60.0Urine Specific [place] February 04, 2025 2:15pmOct2024 2:15pm1.0251.005-1.025Potassium Level February 04, 2025 2:23pmOct2024 2:23pm3.9 mmol/L3.5-5.1Mean Corpuscular HemoglobinOct2024 2:23pmOctober 2024 2:23pm28.3 pg 26.7-34.0Urine UrobilinogenOct2024 2:15pmOctober 2024 2:15pm2.0 EU/dLAbnormal (applies to non-numeric results)0.2-1.0Sodium LevelOct2024 2:23pmOctober 2024 2:25cy559 mmol/G947-928Phki Corpuscular Hemoglobin ConcentOct2024 2:23pmOctober 2024 2:23pm32.7 g/dL29.9-35.2Mean Corpuscular VolumeOct2024 2:23pmOctober 2024 2:23pm86.6 fL 81.0-99.0Monocytes # (Auto)February 04, 2025 2:23pmOct2024 2:23pm0.7 10 3/uL0.3-0.8Monocytes (%) (Auto)February 04, 2025 2:23pmOctober 2024 2:23pm8.8 %1.7-12.0Mean Platelet VolumeOct2024 2:23pmOctober 2024 2:23pm9.8 fL9.5-13.5Neutrophils # (Auto)February 04, 2025 2:23pmOctober 2024 2:23pm4.7 10 3/uL1.4-6.5Neutrophils (%) (Auto)February 04, 2025 2:23pm February 04, 2025 2:23pm64.0 %43.0-75.0Platelet CountOct2024 2:23pm February 04, 2025 2:02px339 10 3/kB816-113Vyk Blood CountOct2024 2:23pmOctober 2024 2:23pm4.41 10 6/uL4.20-5.40Red Cell Distribution Width February 04, 2025 2:23pmOct2024 2:23pm13.4 %11.0-15.0Corrected White Blood CountOct2024 2:23pmOct2024 2:23pm7.4 10 3/uL4.0-11.0 Vital Signs Vital Reading Result Reference Range Collection Date/Time Height 58.75 [in_i] December 31, 2024 12:72xkQoyykv53.82 kgAugust 2024 12:06pmBody Temperature 98.0 [degF]97.6-99.0[facility] 2024 12:06pmHeart Rate77 /pkx58-184Ymiyqw 2024 12:06pmRespiratory rate14 /nss37-33Rglprk 2024 12:06pmOxygen saturation by Pulse kyebnmyn40 %95-100Augus2024 12:06pmBP Tpfxauck753 mm[Hg]100-140[facility] 2024 12:06pmBP Xaxetimqg21 mm[Hg]60-100August 2024 12:06pmBMI (Body Mass Index)38.0 kg/l8Ocmviw 2024 12:64llSlczjq56.75 [in_i]February 04, 2025 9:74hrAbyrbe17.91 kgOct2024 9:17amHeart Rate80 /elw63-794Darewdt 3rd, 2025 9:17amBP Brraoekr396 mm[Hg]100-140Oct2024 9:17amBP Ufpgurihy71 mm[Hg]60-100Oct2024 9:17amBMI (Body Mass Index) 37.6 kg/f6Aljmwdr 2024 9:79qxXdcemz69.75 [in_i]March 21, 2025 11:19am Eeoetd64.19 kgNov2024 11:19amHeart Rate87 /sjo93-984Tmchqbth 17th, 2025 11:19amBP Xpcpnypd466 mm[Hg]100-140Nov2024 11:19amBP Diastolic 79 mm[Hg]60-100Nov2024 11:19amBMI (Body Mass Index)36.4 kg/m2 March 21, 2025 11:19am Advance Directives Advance Directive Response Recorded Date/ Time Advance Directives No March 11, 2019 2:45pm Insurance Providers Guarantor Chantelle Bell Address [address] [facility] [address]Fecdslg Info.Home Phone: Coverage Status Update:2024 Payer Group Member ID Coverage Type Subscriber Relationship to Subscriber Effective Date Expiration Date Medicaid [id number] L Bell Id: [id number] [address] [facility] [address] Home Phone: SelfBcole Medicaid Id: [id number] L Bell Id: [id number] [address] [facility] [address] Home Phone: Self Encounters Encounter Location(s) Arrival/Admit Date Discharge/Departure Date Discharge/Departure Disposition Provider(s) Departed Physician/ Provider Office Visit -[facility] December 31, 2024 1:03pm December 31, 2024 1:25pm Discharged to home care or self care (routine discharge) Norma Tapia MD Departed Physician/ Provider Office Visit -[facility] February 04, 2025 10:02am February 04, 2025 10:46am Discharged to home care or self care (routine discharge) Norma Tapia MD Non-patient / Non-visit -[facility] March 10, 2025 9:30am Shea Espinoeparted Clinical-Pacemaker CheckMarch 10, 2025 2:10pmMarch 10, 2025 2:11pmDischarged to home care or self care (routine discharge)Олег Carrillo MD FACCDeparted Physician/[facility] 11:01amNovember 2024 11:56am Discharged to home care or self care (routine discharge)Norma Tapia MD Recent Diagnosis Onset Date Admit Date Bronchitis Unknown December 31 1:03pm Heart failure Unknown December 31 1:03pm Costovertebral (angle) tenderness, bilateral Unk nown February 04, 2025 10:02am Lumbar pain Unknown February 04 10:02am Urinary frequency Unknown February 04 10:02am Lumbar pain Unknown March 21 11:01am Assessments Diagnosis Onset Date Resolution Status Admit Date Bronchitis acuteAugust 2024 1:03pmHeart failureacuteAugust 2024 1:03pm Costovertebral (angle) tenderness, bilateralacuteOctober 2024 10:02amLumbar painacuteOctober 2024 10:02amUrinary frequencyacuteOctober 2024 10:02amLumbar painacuteNovember 2024 11:01am Plan of Treatment Author Norma Tap[facility] 8:10amExplained that her brine process operator usually writes these meds. Pt states she [...] needed for cough. Increase fluids and rest. Deha-sow-vqzqlnb antipyretics as needed. Warning signs and symptoms reviewed with patient today. Patient to go immediately to the ER should she experience any of these. Patient to notify office should her symptoms persist and not improve. Patient verbalizes understanding and agrees to treatment plan. Author Norma Tapia [facility]redOct[facility] 2024 6:38pmCheck labs as listed below to assess kidney function, r/o UTI, diabetes and anemia. Future Tests Future scheduled test information is unavailable Pending Tests Test Name Ordered Date Scheduled Date XR lumbar spine 2-3V* March 21, 2025 11:34a m Future Visits Future appointment information is unavailable Future Procedures Procedure Name Ordered Date Scheduled Date Urine Culture February 04, 2025 9:38am UrinalysisOct2024 9:38am Future Medications Future medication information is unavailable Patient Instructions Instruction Admit Date Low back pain in adults February 04 10:02am Low back pain in adults November 17th, 2 025 11:01am Hospital Discharge Instructions Ambulatory Orders* Referral to Pain Management Location: None Selected
--- OUTSIDE RECORDS SUMMARY | 2025-03-24 11:11 | XMS_ITS | Clinical Summary ---
Author Organization [facility] Address [address] [place] [address] Care Team Providers Care Strip Winder Name Role Phone Unavailable Primary Care Provider Unavailabl e Social History Tobacco UseTypesPacks/DayYears UsedDateSmoking Tobacco: Never Assessed CommentsUnknownSex and Gender InformationValueDate RecordedSex Assigned at Not on fileLegal AkxPlljho09/15/2023 6:47 PM EDTGender IdentityNot on fileSexual OrientationNot on file Last Filed Vital Signs Vital SignReadingTime TakenCommentsBlood Enjhrdyp664/7005/ 12:00 PM EDT Pulse--Temperature--Respiratory Rate--Oxygen Saturation--Inhaled Oxygen Concentration--Twblej38.6 kg (202 lb)02/28/2021 12:00 PM MFBEjdish718.4 cm (5') 02/28/2021 12:00 PM EDTBody Mass Index39.451 12:00 PM EDT Plan of Treatment Not on file
--- OUTSIDE RECORDS SUMMARY | 2025-03-24 11:11 | XMS_ITS | Clinical Summary ---
Author Organization [facility] Address [address] [place], [place] [address] Care Team Providers Care Pediatric Ophthalmologist Name Role Phone Norma Tapia MD Primary Care Provider [phone] Allergies Active AllergyReactionsCriticalityNoted DateCommentsAdhesive Tape (Rosins) Oowlbnh4310/25/2013 Medications MedicationSigDispense QuantityRefillsLast FilledStart DateEnd DateStatus Omeprazole 40 mg capsule Take 40 mg by mouth once daily.Active lisinopril (ZESTRIL, PRINIVIL) 10 mg tablet Take 1 tablet by mouth once daily. 90 tablet Active spironolactone (ALDACTONE) 25 mg tablet TAKE 1 TABLET BY MOUTH EVERY DAY 90 tablet Active febuxostat (ULORIC) 80 mg tab Take 80 mg by mouth once daily.Active carvedilol (COREG) 6.25 mg tablet Take 1 tablet by mouth twice daily with meals. 180 tablet Active Active Problems ProblemNoted DateDiagnosed DateICD (implantable cardioverter-defibrillator), biventricular, in situ07/07/20154131Xohmknt47/04/2016Sleep apnea02/23/2015IRB # 15- 345: Wrap-It Study01/26/2015CHF (congestive heart failure)10/11/2013Hypertension 10/11/2013LBBB (left bundle branch block)10/11/2013 Family History Medical HistoryRelationCommentsCoronary Artery DiseaseFatherat age 78Diabetes FatherRelationStatusCommentsFatherDeceasedMotherAlive Social History Tobacco UseTypesPacks/DayYears UsedDateSmoking Tobacco: NeverSmokeless Tobacco: NeverAlcohol UseStandard Drinks/WeekCommentsNo0 (1 standard drink = 0.6 oz pure alcohol)Area Deprivation IndexAnswerDate RecordedNational Score (1-100), lower number is lower riskNot on file04/12/2020State Score (1-10), lower number is lower riskNot on file04/12/2020Data from: https://www.neighborhoodatlas.medicine.[facility]/. 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 Start DateJob End DateworkerNot on fileNot on fileNot on file Last Filed Vital Signs Vital SignReadingTime TakenCommentsBlood Ujuxefyz104/52006/03/2017 12:53 PM EST Ggkyl221206/03/2017 12:53 PM MZMFjqtwjvgpak39.2 ??C (97.1 ??F)08/24/2015 10:36 AM EDTRespiratory Cxoq796806/03/2017 12:53 PM ESTOxygen Vmdintlcwh61%06/03/2017 12:53 PM ESTInhaled Oxygen Concentration--Iczknu85.7 kg (200 lb)06/03/2017 12:53 PM IFLVjhshv662.4 cm (5')06/03/2017 12:53 PM ESTBody Mass Index39.0606/03/2017 12:53 PM EST Plan of Treatment Health MaintenanceDue DateLast DoneCommentsAnxiety Uzymcykxy15/31/1973Depression Kmpcpzssi35/31/1973Hepatitis C Eqdndfqvs94/31/1973DTaP,Tdap,Td Vaccine (1 - Tdap)1973Mammogram Haoxqdclw52/31/1995CT Xolzxkojmxjg85/31/2000Cologuard (FIT-DNA)10/03/19991427Xufngtiucze65/31/2000Colorectal Cancer Andajhvmi00/31/2000 Fecal Occult Blood10/03/1999Lipid Gqqyzrftp57/31/0563Hrdhfjxmpvozg83/31/2000 Pneumococcal Vaccine: 50+ (1 of 1 - PCV)2004Shingrix Vaccine (1 of 2) 2004Diabetes Ooluxclne09Bone Density Zfruyozok34/31/2020 Advance Directive Lxfhubasyi69/01/2025ovid-19 Vaccine (2024- season) 2025Influenza Vaccine (#1)2025RSV Vaccine (1 - 1-dose 75+ series) 2029 Medical Devices ImplantedTypeAreaManufacturerDevice IdentifierShelf Expiration DateModel / Serial / [id number] Viva Quad S Shv-[id number] Implanted:01/25/2015 (Quantity not on file)ICDMEDTRONIC [id number] Viva Quad S AEROSPACE TECHNICIAN-D / [id number] / Procedures Procedure NamePriorityDate/TimeAssociated DiagnosisCommentsBASIC METABOLIC PANEL STAT01/25/2015 12:00 PM EDT Chronic systolic congestive heart failure (HCC) from Last 3 Months or Most Recently Relevant to Health Maintenance Results * (ABNORMAL) BASIC METABOLIC PNL (01/25/2015 12:00 PM EDT)ComponentValueRef RangeTest MethodAnalysis TimePerformed AtPathologist KbyhugaobRcluzky82364 - 100 mg/dL01/25/2015 1:38 [facility] PJYBWEPATVXFL37(H)8 - 25 mg/dL01/25/2015 1:38 PM EDTCMERCY [facility]ALTH[facility] LABORATORYCreatinine1.160.70 - 1.40 mg/dL01/25/2015 1:38 PM [facility]TC[facility] QMOERZUVNYZiawpk703204 - 148 mmol/L01/25/2015 1:38 PM EDTCMERCY [facility]ALTH[facility] MAIN LABORATORYPotassium Unable to assay. Specimen significantly hemolyzed.3.5 - 5.0 mmol/L01/25/2015 1:38 PM [facility]TC[facility] YFOROZPDOSGjrmgsbn10689 - 110 mmol/L 01/25/2015 1:38 PM EDTCMER[facility] VRVBONNWYMAR90527 - 32 mmol/L 01/25/2015 1:38 PM EDTCMERCY [facility]ALTH[facility] MAIN LABORATORYAnion Gap70 - 15 mmol/L 01/25/2015 1:38 PM EDTCMERCY [facility] LABORATORYCalcium9.58.5 - 10.5 mg/dL01/25/2015 1:38 PM EDTCLEVEL[facility] LABORATORYeGFR- Uueutshu2727/23/2015 1:38 PM [facility] LABORATORYeGFR-All Other Races48.01/25/2015 1:38 PM [facility] LABORATORYComment: eGFR (Estimated GFR) Units of measure: mL/min/1.73 [...] eGFR may not accurately reflect actual GFR. Specimen (Source)Anatomical Location / LateralityCollection Method / Volume Collection TimeReceived TimeBlood specimen (specimen)BLOOD SPECIMEN / Unknown 01/25/2015 12:00 PM EDT01/25/2015 12:25 PM EDT Narrative Authorizing ProviderResult TypeResult StatusNathalie Lux MDLABORATORYFinal ResultPerforming OrganizationAddressCity/State/ZIP CodePhone Number [facility] [address] [place] [address] from Last 3 Months or Most Recently Relevant to Health Maintenance Insurance Advance Directives TypeDate RecordedPatient RepresentativeExplanationAdvance Directive(s)01/25/2015 10:56 AM Care Teams Team MemberRelationshipSpecialtyStart DateEnd Date Norma Tapia MD [address] [place] [address] PCP - GeneralFamily Medicine10/24/14
--- OUTSIDE RECORDS SUMMARY | 2025-03-24 11:11 | XMS_ITS | Clinical Summary ---
Author Organization [facility] Address [id number] [place] [address] Care Team Providers Care Motorcoach Driver Name Role Phone Norma Tapia MD Primary Care Provider [phone] Allergies Active AllergyReactionsCriticalityNoted DateCommentsAdhesiveOther (See Comments) 10/25/2013 Medications MedicationSigDispense QuantityRefillsLast FilledStart DateEnd DateStatus sertraline (ZOLOFT) 50 mg tablet Take 50 mg by mouth daily.Active omeprazole (PriLOSEC) 20 mg capsule Take 40 mg by mouth 2 (two) times a day.Active HYDROcodone-acetaminophen (NORCO) 5-325 mg per tablet Take 1 tablet by mouth every 6 (six) hours as needed for pain.Active carvediloL (COREG) 12.5 mg tablet Take 1 tablet (12.5 mg total) by mouth in the morning and 1 tablet (12.5 mg total) in the evening. Take with meals.Active febuxostat (ULORIC) 80 mg tablet Take 80 mg by mouth daily.Active sertraline (ZOLOFT) 100 mg tablet Take 1 tablet (100 mg total) by mouth in the morning.12/24/2021ctive ENTRESTO 24-26 mg tablet Take 1 tablet by mouth in the morning and 1 tablet before bedtime.12/24/2021 Active Active Problems ProblemNoted DateDiagnosed DateAbnormal gait02/26/2022ervical pain02/26/2022 Morbid jqrlbpm8102/26/2022aresthesia of right upper uaeqpeynm42/25/2022Lumbar ekedtkfienp28/25/2022isorder of hdwrvo9602/26/2022Lumbar thanwzqfijfpn02/25/2022 ICD (implantable cardioverter-defibrillator), biventricular, in situ07/07/2015 Sleep apnea02/23/2015cute renal failure uvoikyjq88/02/6323Rydl07/02/2014enign essential ekphjdurfobx51/02/2014CHF (congestive heart failure)10/11/2013bnormal stress test06/18/2013Unstable goziox0206/18/2013 Social History Tobacco UseTypesPacks/DayYears UsedDateSmoking Tobacco: NeverSmokeless Tobacco: Never Tobacco Cessation:Counseling Given: Not Answered Alcohol UseStandard Drinks/WeekCommentsNever0 (1 standard drink = 0.6 oz pure alcohol)AUDIT-CAnswerDate RecordedFrequency of Alcohol ConsumptionNever 08/12/2019Average Number of DrinksNot on file08/12/2019Frequency of Binge DrinkingNot on file08/12/2019PHQ-2AnswerDate RecordedTotal Cygqn148 ChildcareAnswerDate DblwzfcvZrvecrgpsJfmkbel70/06/2019EmploymentAnswerDate EtiadpjeCfjyalomziYjtwwfc49/06/2019Purpose - LifeAnswerDate RecordedPurpose and direction in mjxxLlxrjoy44/11/2021CommentsNoSex and Gender Information ValueDate RecordedSex Assigned at BirthNot on fileLegal FlmRhefld77/06/2015 11:22 AM EDTGender IdentityNot on fileSexual OrientationNot on file Last Filed Vital Signs Vital SignReadingTime TakenCommentsBlood Mjaixodg300/7802/26/2022 2:51 PM EDT Izqow510902/26/2022 2:51 PM TKNQmbgysqfnlw59.6 ??C (97.8 ??F)08/12/2019 12:15 PM EDTRespiratory Ipsl5845 2:51 PM EDTOxygen Kqzoqweqqd17%08/12/2019 1:51 PM EDTInhaled Oxygen Concentration--Jvilxe33.9 kg (196 lb)02/26/2022 2:51 PM EDT Kcrfuj535.4 cm (5')02/26/2022 2:51 PM EDTBody Mass Index38.281 2:51 PM EDT Plan of Treatment Health MaintenanceDue DateLast DoneCommentsStatin Use: Gapziyhdqvlkrd46/31/1955 Depression Uemajlqvx85/31/1967Tobacco Qcqfiwtvs83/31/1967Adult BMI Screening 1972Zoster (Shingles) Vaccine (1 of 2)2004RSV ( or age 60+ yrs) (1 - Risk 60-74 years 1-dose series)2014Fall Risk Wgdlryvjw24/31/2020 Influenza Vjwawzc6801/03/2025DTaP,Tdap and Td Vaccines (2 - Td or Tdap)12/24/2033 12/25/2023 Medical Devices Not on file Insurance Care Teams Team MemberRelationshipSpecialtyStart DateEnd Norma Tapia MD [address] [place] [address] PCP - GeneralFamily Medicine08/09/19
--- NOTE | 2025-03-24 11:49 | PM.CN ---
Consult Note: HPI Data of Consult Patient: known to practice within the last 3 years Requesting Physician: Melyssa Ly NP Primary Care Provider: Norma Tapia MD Consult Narrative Reason for consult: low back pain Narrative: Chantelle Bell a pleasant 69 year old female presents for evaluation of chronic low back pain secondary to lumbar spondylosis and DDD. Patient last evaluated 08/2022 post bilateral L2,3,4,5 facet RFA which provided >50% improvement for at least 2 years. She is noticing over the last 6 months increasing low back pain without new injury, has failed to benefit from > 6 weeks of HEP, heat, ice, tylenol, NSAIDs. Pain today 6/10 throbbing, increasing to 10/10 with standing, walking, pushing, pulling, lifting, ADLs, activity. notes mild improvement with heat. cc:: CC: Melyssa Ly NP Review of Systems ROS Musculoskeletal Reports: back pain; Denies: extremity pain PFSH PFSH Social History Little interest or pleasure in doing things: not at all Feeling down, depressed, or hopeless: not at all Meds Home Medications and Allergies Home Medications ?Medication ?Instructions ?Recorded ?Confirmed ?Type omeprazole 20 mg capsule,delayed 20 mg PO DAILY 12/25/23 02/15/25 History release hydrocodone 5 mg-acetaminophen 325 1 tab PO Q6H PRN pain 2 days #6 07/11/24 Rx mg tablet tabs acetaminophen 300 mg-codeine 30 mg 1 tab PO Q6H PRN pain 5 days #20 02/15/25 Rx tablet tabs ibuprofen 800 mg tablet 800 mg PO Q8H PRN pain #20 tabs 02/15/25 Rx nebivolol 2.5 mg tablet mg 02/15/25 History sertraline 50 mg tablet mg 02/15/25 History valsartan 80 mg tablet mg 02/15/25 History Allergies Allergy/AdvReac Type Severity Reaction Status Date / Time adhesive tape AdvReac Mild Rash Verified 02/15/25 11:44 Exam Constitutional Documenting provider has reviewed patient's vital signs: yes Common normals: no apparent distress, oriented x3 and alert General appearance: cooperative HENMT Common normals: normocephalic, hearing grossly normal bilaterally and moist oral mucous membranes Head and scalp: normocephalic Eye Common normals: PERRL Pupil: PERRL Neck & C-Spine Common normals: full ROM General: normal visual inspection Chest Common normals: inspection of chest normal Respiratory Common normals: normal respiratory effort, no retractions and no use of accessory muscles Back & Pelvis Lumbar spine/lower back: ROM limited, pain with ROM, lumbar spinal tenderness and straight leg raise negative bilaterally Other: strength 5/5 in BLE sensation intact BLE Neuro Common normals: oriented x3 Sensorium/orientation: alert Psych Common normals: mental status grossly normal, thought process normal, cooperative, affect normal, speech normal and activity/motor behavior normal Speech: normal speech Thought process: normal thought process Results Additional Findings Additional findings: If on a controlled substance or opioids, I have checked an [place] report on this patient and there are no aberrancies noted in the prescribing history.??If on a controlled substance or opioid a drug screen was completed and reviewed within the last year, and if there has not been a drug screen completed we ordered one today to monitor higher risk, state monitored pain medication use. As part of providing excellent, safe, comprehensive care, the following was completed at our patient's visit: 1. A medication reconciliation and review to ensure accurate knowledge of current/active medications, including asking our patients to inform us about any imlm-esb-nfwijcf medications or herbal remedies/nutritional supplements/alternative remedies. 2. A review to specifically ensure our patients have had annual screening for screening for depression, screening for tobacco use, and screening for unhealthy alcohol use. For concerning screenings had a discussion with the patient, provided patient education, and recommended follow-up with primary care provider when appropriate. If patient noted with a risk of falling, they received education on strength, gait, and balance training to prevent future risk of falling. Portions of this note may have been carried over from the previous visit and updated as appropriate. Please note this office utilizes paper charting in addition to the electronic medical record. A list of current medications, vitals, and PMH is available there as the clinical staff outside of myself do not have access to [facility] charting during the clinic day operations. As part of providing quality comprehensive care the current medications, vitals, and PMH were reviewed in the paper chart. Assessment and Plan Assessment and Plan (1) Lumbar spondylosis: Plan The patient has had over 3 months of moderate to severe low back pain with functional impairment and inadequate response to conservative care including NSAIDS (unless there are contraindication such as concurrent blood thinners), multiple oral or topical pain medications, and home exercise program/physical therapy.? Patient has completed >6 weeks of guided home exercise program and/or formal physical therapy program without relief of their symptoms.? I have reviewed the imaging of the lumbar spine and no red flags were identified.? The Oswestry Disability Index was completed, and the patient scored a 32%.? bilateral L4-5 L5-S1 MBB x2 under fluoroscopy in consideration of RFA for facet mediated low back pain continue HEP as tolerated f/u after each injection
--- OUTSIDE RECORDS SUMMARY | 2025-03-24 12:10 | XMS_ITS | CCD ---
Author Organization [facility] Care Team Providers Care Diesel Service Technician Name Role Phone Hampole, Haile V Unavailable Unavailable Hampole, Haile V Unavailable Unavailable Hampole, Haile V Unavailable Unavailable ANUPAM PEREIRA~[phone] UNKNOWN Unavailable Unavailable Harsh Lange Unavailable Unavailable Harsh Lange Unavailable Unavailable Anupam Pereira Unavailable Unavailable Unavailable MD Anupam Pereira Primary Care Provider MD Daphne Mayes Attending Provider [phone] Unavailable Unavailable MD Anupam Pereira Primary Care Provider MD Daphne Mayes Attending Provider [phone] MD Anupam Pereira Primary Care Provider MD Daphne Mayes Attending Provider [phone] MD Anupam Pereira Primary Care Provider MD Daphne Mayes Attending Provider [phone] NAUPAM PEREIRA Primary Care Unavailable MARIA FERNANDA ., [...] ., DR JANICE Casas Admitting Unavailable SCARLET SMI Consulting Unavailable MARIA FERNANDA ., DR JANICE Casas Attending Unavailable RANDALL, DR ANUPAM Kurtz Primary Care Unavailable IRVING ., DR JANICE Casas Admitting Unavailable IRVING ., DR JANCIE Casas Consulting Unavailable IRVING ., DR JANICE [...] Unavailable PEREIRA, DR ANUPAM Kurtz Admitting Unavailable [place], DR CECY Wade Consulting Unavailable ZIEBER, DR [...] Care Provider MD Daphne Mayes Attending Provider Rosado, Dr. [...] Primary Care Provider Maren Aden Attending Provider Lupe Rosado MD Attending Provider LUPE ROSADO Attending Unavailable ROSADO, TORREZ M Referring Unavailable ANUPAM PEREIRA Primary Care Unavailable ROSADOLUPE M Attending Unavailable ROSADO, TORREZ M Referring Unavailable ANUPAM PEREIRA Primary Care Unavailable ROSADOLUPE M Attending Unavailable ROSADO, TORREZ M Referring Unavailable ANUPAM PEREIRA Primary Care Unavailable Daphne Mayes MD Unavailable Anupam Pereira MD Primary Care Provider Lupe Rosado MD Other Provider Chasity Harper MD Attending Provider Anupam Pereira MD Attending Provider Anupam Pereira MD Primary Care Provider Anupam Pereira MD Attending Provider Lupe Rosado MD Other Provider Chasity Harper MD Attending Provider Lupe Rosado MD Attending Provider [phone] Lupe Rosado Attending Unavailable Lupe Rosado Admitting Unavailable Anupam Pereira Primary Care Unavailable Lupe Rosado Admitting Unavailable Lupe Rosado Attending Unavailable Anupam Pereira Primary Care Unavailable Anupam Pereira Primary Care Unavailable Maren Aden Attending Unavailable Maren Aden Admitting Unavailable Rosemarie Lea Admitting Unavailable Anupam Pereira Primary Care Unavailable Rosemarie Lea R Attending Unavailable Anupam Pereira Primary Care Unavailable Chasity Harper Attending Unavailable Chasity aHrper Admitting Unavailable Lupe Rosado Attending Unavailable Andreia, Lupe Admitting Unavailable Anupam Pereira Primary Care Unavailable Allergies Allergy ClassificationReported Allergen(s)Allergy TypeDate of OnsetReaction(s) Facility (1 source)Adhesive Tape; Translations: [Tape]Propensity to adverse reactions (disorder)[facility] Repository (16 sources)DesonideDrug Hdyavvh60-63-9699Rqqitam, RashThe [facility] (1 source)LatexDrug allergy (disorder)[facility] Repository (1 source)patient allergy list reviewed by nurse or physiciaPropensity to adverse jkvokkfqk13-19-6227Ebjsltv:DoneTargazyme Other (1 source)Allergies ReconciledPropensity to adverse reactionsUnkRollSaleCenterpoint Medical Center [employer] Other (10 sources)Adhesive agent; Translations: [ADHESIVE]Drug Vktsnyaqcly65-41-1188 [facility] (1 source)Adhesive TapeDrug allergy (disorder)16-14-5976[facility] Medications Current Medications MedicationDrug Class(es)DatesSig (Normalized)Sig (Original)amoxicillin 875 mg / clavulanate 125 mg oral tablet (2 sources)Penicillin-class AntibacterialStart: 17-42-5348noey 1 tablet by mouth every twelve hoursAmoxicillin-Pot Clavulanate 875-125 MG 1 tablet Orally every 12 hrs for 10 day(s) Jan, Activebaclofen 10 mg oral tablet (3 sources)gamma-Aminobutyric Acid-ergic Agonisttake 1 tablet by mouth every twelve hoursBaclofen 10 MG 1 tablet as needed Orally Twice a day Active benzonatate 200 mg oral capsule (4 sources)Non-narcotic AntitussiveStart: 22-89-3210pgug 1 capsule by mouth every eight hoursBenzonatate 200 MG 1 capsule Orally Three times a day for 10 day(s) May, ActiveStart: 81-40-3201nibi 1 capsule by mouth every eight hoursBenzonatate 200 MG 1 capsule Orally Three times a day for 10 day(s) Dec, Activecefdinir 300 mg oral capsule (3 sources)Cephalosporin AntibacterialStart: 55-63-7213Mndddzdg 300 MG as directed Orally bid for 7 May, ActiveStart: 11-46-6241Tfzwffhn 300 MG as directed Orally bid for 7 days Dec, Activecodeine phosphate 2 mg/ml / guaiFENesin 20 mg/ml oral solution (2 sources)Opioid AgonistStart: 79-77-6431scli 10 mL by mouth every four hours as neededguaiFENesin AC 100-10 MG/5ML 10 mL as needed Orally every 4 hrs for 7 days Dec, Activefurosemide 40 mg oral tablet (2 sources)Loop DiureticStart: 02-25-2023 End: 63-86-3131lhephdcixo (Lasix) 40 mg tablet Indications: Chronic systolic congestive heart failure (CMS/HCC) Take one tablet daily x 3 days then one tablet daily for a 3 pound weight gain over night or 5 pounds in 5 days 30 tablet 11 02/25/2023 05/12/2023 Discontinued (Therapy completed)Handicap placards as directed (9 sources)Handicap placards as directed as directed as directed as directed ActivemethylPREDNISolone 4 mg oral tablet (3 sources)CorticosteroidStart: 74-28-0669vvrwynIVBJGUClbtsz 4 MG as directed Orally for 6 days May, ActiveStart: 62-50-3191cmonpfABJZGOQmqwlp 4 MG as directed Orally for 6 days Jan, ActivepredniSONE 20 mg oral tablet (6 sources)Start: 25-20-2603lzqj 2 tablets by mouth every twenty-four hours predniSONE 20 MG 2 tablets Orally Once a day for 5 days May, Active Start: 29-04-5759xjxe 2 tablets by mouth every twenty-four hourspredniSONE 20 MG 2 tablets Orally Once a day for 5 days Dec, Activesertraline 50 mg oral tablet (20 sources)Serotonin Reuptake InhibitorStart: 03-02-2024 End: 21-65-9063mgha 1 tablet by mouth once dailyStart: 02-25-2024 End: 94-97-7323mywo 1 tablet by mouth once dailySertraline 100 mg tablet Discontinued 0 .ROUTE .COMPLEX 90 0 February 25, 2024 2:49pm March 02, 2024 10:24am TAKE 1 TABLET BY MOUTH EVERY DAYStart: 06-20-2023 End: 28-99-2843eqmv 1 tablet by mouth once dailySertraline 100 mg tablet Discontinued 100 MG PO Daily 90 1 June 20, 2023 12:00am February 25, 2024 2:49pmtake 1 tablet by mouth twice dailysertraline (Zoloft) 50 mg tablet Take 1 tablet (50 mg) by mouth 2 times a day. Activetake 2 tablets by mouth once daily sertraline (Zoloft) 50 mg tablet Take 2 tablets (100 mg) by mouth once daily. Activetake 1 tablet by mouth once dailySertraline HCl 100 MG TAKE 1 TABLET BY MOUTH EVERY DAY for 90 Activetake 1 tablet by mouth once dailySertraline HCl - 50 MG Oral Tablet TAKE 1 TABLET DAILY DIRECTED. Quantity: 0 Refills: 0 Ordered:09-Aug-2021 DO ActivetiZANidine 4 mg oral tablet (7 sources)Central alpha-2 Adrenergic AgonisttiZANidine HCl 4 MG TAKE 1 TABLET BY MOUTH THREE TIMES A DAY NEEDED FOR 30 DAYS for 20 Active Completed/Discontinued Medications MedicationDrug Class(es)DatesSig (Normalized)Sig (Original)[id number] 200 actuat albuterol 0.09 mg/actuat metered dose inhaler (12 sources)beta2-Adrenergic AgonistStart: 06-20-2023 End: 84-10-3949ajpc 1 puff(s) by inhalation every four to six hours as needed for wheezingAlbuterol Sulfate 90 mcg/actuation HFA aerosol inhaler Discontinued 2 PUFF INHALATION EVERY 4-6 HOURS as needed for shortness of breath or wheezing 6.7 June 20, 2023 12:00am December 2141:01pmStart: 06-20-2023 End: 70-23-0117ldgu 1 puff(s) by inhalation every four to six hoursAlbuterol Sulfate Discontinued 2 PUFF INHALATION EVERY 4-6 HOURS 6.7 June 20, 2023 1:00am December 22, 2023 2:01pmStart: 46-34-2545ydxc 1 puff(s) by inhalation every four to six hoursAlbuterol Sulfate Active 2 PUFF INHALATION EVERY 4-6 HOURS 6.7 June 20, 2023 1:00amStart: 61-87-3244kwym 2 puff(s) by inhalation every four hours as neededAlbuterol Sulfate HFA 108 (90 Base) MCG/ACT 2 puff Inhalation every 4 hrs prn Jan, ActiveStart: 57-83-4186eoas 2 puff(s) by inhalation every four hours as neededAlbuterol Sulfate HFA 108 (90 Base) MCG/ACT 2 puff Inhalation every 4 hrs prn 07 Jan, 2023 ActiveAlbuterol Sulfate HFA 108 (90 Base) MCG/ACT INHALE 2 PUFFS BY MOUTH EVERY 4 HOURS NEEDED FOR 30 DAYS for 30 ActiveAlbuterol Sulfate 90 mcg/actuation HFA aerosol inhaler (7 sources)Start: 06-20-2023 End: 51-17-9239acxj 1 puff(s) by inhalation every four to six hours as needed for wheezingAlbuterol Sulfate 90 mcg/actuation HFA aerosol inhaler Discontinued 2 PUFF INHALATION EVERY 4-6 HOURS as needed for shortness of breath or wheezing 6.7 June 20, 2023 1:00am December 22, 2023 2:01pmStart: 06-20-2023 End: 80-81-7457afqm 1 puff(s) by inhalation every four to six hours as needed for wheezingAlbuterol Sulfate 90 mcg/actuation HFA aerosol inhaler Discontinued 2 PUFF INHALATION EVERY 4-6 HOURS as needed for shortness of breath or wheezing 6.7 June 20, 2023 12:00am December 22, 2023 1:01pmazithromycin 250 mg oral tablet (3 sources)Macrolide AntimicrobialStart: 12-31-2024 End: 36-78-9826Gyqzerqonnvf 250 mg tablet Discontinued 0 PO .COMPLEX 6 0 December 30, 2024 11:00pm February 04, 2025 9:20am For 250 mg dose pack: take 500 mg today (day 1), then 250 mg for 4 days (days 2-5) POcarvedilol 3.125 mg oral tablet (20 sources)alpha-Adrenergic Roxy, beta-Adrenergic BlockerStart: 11-18-2023 End: 73-90-6792dyfa 1 tablet by mouth twice dailyCarvedilol 3.125 mg tablet Discontinued 3.125 MG PO Twice daily December 21, 2023 11:00pm July 26, 2024 7:50amStart: 04-03-2021 End: 15-80-1343jcmw 1 tablet by mouth twice dailycarvedilol (Coreg) 6.25 mg tablet Indications: ICD (implantable cardioverter-defibrillator) in place Take 1 tablet (6.25 mg) by mouth 2 times a day. 90 tablet 3 08/29/2023 11/18/2023 Discontinued (Dose adjustment)take 1 tablet by mouth every twelve hours Carvedilol 3.125 MG 1 tablet with food Orally Twice a day for 90 Active ciprofloxacin 250 mg oral tablet (5 sources)Quinolone Antimicrobialtake 1 tablet by mouth every twelve hours Ciprofloxacin HCl 250 MG 1 tablet Orally every 12 hrs Not-Takingergocalciferol 0.05 mg oral capsule (13 sources)Provitamin D2 CompoundStart: 10-09-2022 End: 11-42-9144yfev 1 capsule by mouth once dailyVitamin D (Ergocalciferol) 50 MCG (2000 UT) Oral Capsule one daily OTC Quantity: 90 Refills: 0 Ordered: 09-Oct-2022 Lupe Rosado MD Start : 09-Oct-2022 ActiveStart: 10-59-1842hsrn 1 capsule by mouth every weekVitamin D (Ergocalciferol) 1.25 MG (77616 UT) 1 capsule Orally weekly for 90 day(s) May, Activefebuxostat 80 mg oral tablet (5 sources)Xanthine Oxidase Inhibitortake 1 tablet by mouth once dailyUloric 80 MG TAKE 1 TABLET BY MOUTH EVERY DAY Oral for 90 Not-Takinglisinopril 10 mg oral tablet (5 sources)Angiotensin Converting Enzyme Inhibitortake 1 tablet by mouth once dailyLisinopril 10 MG TAKE 1 TABLET EVERY DAY Oral for 90 Not-Opookk74 hr metFORMIN hydrochloride 500 mg extended release oral tablet (18 sources)BiguanideStart: 07-26-2024 End: 48-97-4578Cfcsudjpb 500 mg tablet extended release 24 hr Discontinued 1000 MG PO Daily 60 July 26, 2024 10:35am February 04, 2025 9:20amStart: 30-94-6953qoqv 1 tablet by mouth twice dailymetFORMIN XR 500 mg 24 hr tablet Take 1 tablet (500 mg) by mouth 2 times daily (morning and late afternoon). 05/31/2024 ActiveStart: 05-31-2024 End: 72-83-4714vocj 1 tablet by mouth once daily, then take 1 tablet by mouth once dailyMetformin 500 mg tablet extended release 24 hr Discontinued 1000 MG PO Daily 60 May 31, 2024 12:00am July 26, 2024 10:35am Days 1 through 7 take 1 tab daily.nabumetone 750 mg oral tablet (5 sources)Nonsteroidal Anti-inflammatory Drugtake 1 tablet by mouth twice daily Nabumetone 750 MG TAKE 1 TABLET TWICE A DAY Oral for 30 Not-Takingnebivolol 2.5 mg oral tablet (14 sources)Start: 06-10-2024 End: 28-11-5401gwue 1 tablet by mouth once dailyNebivolol 2.5 mg tablet Discontinued 2.5 MG PO Daily June 14, 2024 12:00am December 31, 2024 1 2:21pmNirmatrelvir-Ritonavir (4 sources)Start: 12-22-2023 End: 95-47-6347Vqamhpswhurz-Ritonavir (Paxlovid) 300 mg (150 mg x 2)-100 mg tablets,dose pack Discontinued 0 PO .COMPLEX 30 December 21, 2023 11:00pm March 02, 2024 10:24am take TWO 150 mg tablets of nirmatrelvir with ONE 100 mg tablet of ritonavir twice daily for 5 days POStart: 12-22-2023 End: 41-34-4442Yzzwiagdkitf-Ritonavir (Paxlovid) 300 mg (150 mg x 2)-100 mg tablets,dose pack Discontinued 0 PO .COMPLEX December 22, 2023 12:00am March 02, 2024 11:24am take TWO 150 mg tablets of nirmatrelvir with ONE 100 mg tablet of ritonavir twice daily for 5 days PONirmatrelvir-Ritonavir (Paxlovid) 300 mg (150 mg x 2)-100 mg tablets,dose pack (10 sources)Start: 12-22-2023 End: 20-82-6029Ivrwqeuecdtm-Ritonavir (Paxlovid) 300 mg (150 mg x 2)-100 mg tablets,dose pack Discontinued 0 PO .COMPLEX December 21, 2023 11:00pm March 02, 2024 10:24am take TWO 150 mg tablets of nirmatrelvir with ONE 100 mg tablet of ritonavir twice daily for 5 days POStart: 12-22-2023 End: 55-02-0207Jeholauineav-Ritonavir (Paxlovid) 300 mg (150 mg x 2)-100 mg tablets,dose pack Discontinued 0 PO .COMPLEX 30 December 22, 2023 12:00am March 02, 2024 11:24am take TWO 150 mg tablets of nirmatrelvir with ONE 100 mg tablet of ritonavir twice daily for 5 days POStart: 11-91-6238Wbtoumdennzk- Ritonavir (Paxlovid) 300 mg (150 mg x 2)-100 mg tablets,dose pack Active 0 PO .XBVYDAU82 December 22, 2023 12:00am take TWO 150 mg tablets of nirmatrelvir with ONE 100 mg tablet of ritonavir twice daily for 5 days POomeprazole 20 mg delayed release oral capsule (20 sources)Proton Pump InhibitorStart: 04-21-2024 End: 47-12-9509wivo 1 capsule by mouth once dailyOmeprazole 20 mg capsule,delayed release(DR/EC) Discontinued 0 .ROUTE .COMPLEX July 060:42am November 11, 2024 3:20pm TAKE 1 CAPSULE BY MOUTH EVERY DAYStart: 12-22-2023 End: 53-36-7487ldzg 1 capsule by mouth once dailyOmeprazole 20 mg capsule,delayed release(DR/EC) Discontinued 20 MG PO Daily December 21, 2023 11:00pm April 21, 2024 10:49amOmeprazole 20 MG TK 2 CS PO QD Oral for Activesacubitril 49 mg / valsartan 51 mg oral tablet (20 sources)Angiotensin 2 Receptor BlockerStart: 10-09-2021 End: 85-69-2053ndhx 1 tablet by mouth twice dailySacubitril-Valsartan (Entresto) 49-51 mg tablet Discontinued 1 TAB PO Twice daily December 201:00pm June 14, 2024 1:32pmtake 1 tablet by mouth twice dailyEntresto 24-26 MG TAKE 1 TABLET BY MOUTH TWICE A DAY for 90 ActiveENTRESTO 24 mg/26 mg 1 orally twice a day ActivetraMADol hydrochloride 50 mg oral tablet (5 sources)Opioid Agonisttake 1 tablet by mouth every twenty-four hourstraMADol HCl 50 MG 1 tablet as needed Orally Once a day Not-Takingvalsartan 80 mg oral tablet (14 sources)Angiotensin 2 Receptor BlockerStart: 06-10-2024 End: 36-19-6392ikkk 1 tablet by mouth once dailyValsartan 80 mg tablet Discontinued 80 MG PO Daily June 14, 2024 12:00am December 31, 2024 12: 21pm Problems Active Problems Problem ClassificationProblemDateDocumented DateEpisodic/ChronicAbdominal pain (15 sources)Right upper quadrant pain; Translations: [Right upper quadrant pain] Onset: 14-44-5439UcpdhkmlLwgwn bronchitis (2 sources)Acute bronchitis; Translations: [Acute bronchitis]Onset: 08-30-2014 EpisodicAnxiety disorders (14 sources)Generalized anxiety disorder; Translations: [Generalized anxiety disorder]Onset: 06-19-7701XqjizudPuprmny dysrhythmias (12 sources)Atrial fibrillation; Translations: [Unspecified atrial fibrillation] Onset: 393607-90-2044IsstjypGslecwg obstructive pulmonary disease and bronchiectasis (20 sources)Bronchitis; Translations: [Bronchitis, not specified as acute or chronic]EpisodicConduction disorders (20 sources)Automatic implantable cardiac defibrillator in situ; Translations: [Automatic implantable cardiac defibrillator in situ]Onset: ChronicCongestive heart failure; nonhypertensive (20 sources)Chronic systolic heart failure; Translations: [Chronic systolic heart failure]Onset: 85-39-3200JkeukoiEsgpvvzbwd and other anemia (5 sources)Anemia, unspecified; Translations: [ANEMIA UNSPECIFIED]Onset: 89-94-4048FonlipgxFkruavwqrv disorders (14 sources)Gastroesophageal reflux disease without esophagitis; Translations: [Gastro-esophageal reflux disease without esophagitis]ChronicEssential hypertension (15 sources)Essential hypertension; Translations: [Essential (primary) hypertension]Onset: 08-33-7074HizrjkpPhyxjhjlfijro symptoms and ill-defined conditions (18 sources)Increased frequency of urination; Translations: [Frequency of micturition]53-07-0339MfxouqsoYeei and other crystal arthropathies (20 sources)Articular gout; Translations: [Gout, unspecified]Onset: 03-28-2014 ChronicInfluenza (1 source)Influenza due to other identified influenza virus with other respiratory manifestationsEpisodicMood disorders (20 sources)Depression; Translations: [Depressive disorder]Onset: 08-29-2017 43-10-7908SybafwsPcqlbtuphaw chest pain (20 sources)Precordial pain; Translations: [Precordial pain]Onset: 09-15-2017 EpisodicNutritional deficiencies (12 sources)Vitamin D deficiency; Translations: [Vitamin D deficiency, unspecified]Onset: 66-93-1741VaephnnEqlhctstdeimaj (20 sources)Osteoarthritis; Translations: [Unspecified osteoarthritis, unspecified site]Onset: 629648-99-3817JzpjmqtLrczdzv on above:bilateral Other acquired deformities (14 sources)Acquired deformity of finger; Translations: [Unspecified deformity of right finger(s)]EpisodicOther circulatory disease (5 sources)Elevated blood-pressure reading without diagnosis of hypertension; Translations: [Elevated blood-pressure reading, without diagnosis of hypertension]EpisodicOther circulatory disease (1 source)Other specified symptoms and signs involving the circulatory and respiratory systemsEpisodicOther connective tissue disease (9 sources)Adhesive capsulitis of left shoulder; Translations: [Adhesive capsulitis of left shoulder]EpisodicOther lower respiratory disease (2 sources)Dyspnea on exertion; Translations: [Other forms of dyspnea]02-25-2023 EpisodicOther nervous system disorders (1 source)Other chronic pain; Translations: [OTHER CHRONIC PAIN]Onset: 11-01-5811XxmpwigQwqwj nervous system disorders (9 sources)Paresthesia of upper limb; Translations: [Paresthesia of skin] EpisodicOther non-traumatic joint disorders (12 sources)Shoulder joint pain; Translations: [Pain in right shoulder]Episodic Other non-traumatic joint disorders (2 sources)Shoulder pain; Translations: [Pain in left shoulder]EpisodicOther non-traumatic joint disorders (8 sources)Pain in right shoulder; Translations: [Right shoulder pain]Episodic Other non-traumatic joint disorders (7 sources)Pain in left shoulder; Translations: [Left shoulder pain]Episodic Other nutritional; endocrine; and metabolic disorders (16 sources)Body mass index 40+ - severely obese; Translations: [Body Mass Index 40.0-44.9, adult]Onset: 15-66-1442BslarsfLzyzq nutritional; endocrine; and metabolic disorders (17 sources)Morbid obesity; Translations: [Morbid obesity]Onset: 06-21-2014 11-40-9672LmqokecZbyaf nutritional; endocrine; and metabolic disorders (1 source)Hypercalcemia; Translations: [Hypercalcemia]Onset: 06-61-5300Oadqfis Other nutritional; endocrine; and metabolic disorders (20 sources)Obese class II; Translations: [Body mass index (BMI) 38.0-38.9, adult]57-66-5278JxsalwcQuygc nutritional; endocrine; and metabolic disorders (4 sources)Body mass index 30+ - obesity; Translations: [Body mass index (BMI) 38.0-38.9, adult]Onset: 851383-71-2778WhavrpaHmhtm nutritional; endocrine; and metabolic disorders (2 sources)Body mass index (BMI) 38.0-38.9, adult; Translations: [Body mass index (BMI) 38.0-38.9, adult]Onset: 24-39-7680YlyrmudPvfpp nutritional; endocrine; and metabolic disorders (2 sources)Obesity, unspecified; Translations: [Obesity, unspecified]Onset: 62-84-4359ZidbclvYoijf nutritional; endocrine; and metabolic disorders (2 sources)Body mass index (BMI) 37.0-37.9, adult; Translations: [Body mass index (BMI) 37.0-37.9, adult]Onset: 50-57-1833UgihljgXfozg nutritional; endocrine; and metabolic disorders (7 sources)Abnormal weight gain; Translations: [Abnormal weight gain]07-26-2024 EpisodicOther nutritional; endocrine; and metabolic disorders (3 sources)Abnormal weight gain; Translations: [Abnormal weight gain]07-26-2024 EpisodicOther upper respiratory disease (9 sources)Epistaxis; Translations: [Epistaxis]EpisodicOther upper respiratory disease (5 sources)Bleeding from nose; Translations: [Epistaxis]EpisodicPeri-; endo-; and myocarditis; cardiomyopathy (except that caused by tuberculosis or sexually transmitted disease) (20 sources)Cardiomyopathy; Translations: [Other primary cardiomyopathies]Onset: 25-18-6750DdjpbmnCtgtema on above:Nonischemic;Residual codes; unclassified (20 sources)Obstructive sleep apnea of adult; Translations: [Obstructive sleep apnea (adult)(pediatric)]Onset: 901117-10-0814PrplskdJoidluwc codes; unclassified (10 sources)Obstructive sleep apnea syndrome; Translations: [Obstructive sleep apnea (adult) (pediatric)]51-99-7574BecyeqrLdykyqjo codes; unclassified (11 sources)Obstructive sleep apnea (adult) (pediatric); Translations: [Obstructive sleep apnea (adult)(pediatric)]Onset: hronic Residual codes; unclassified (9 sources)Tobacco user; Translations: [Tobacco use]EpisodicResidual codes; unclassified (9 sources)Never smoked tobacco; Translations: [Other specified health status] Onset: 578867-83-7183JptjfubzEoitqxsjcrc; intervertebral disc disorders; other back problems (8 sources)Spondylosis without myelopathy or radiculopathy, lumbar region; Translations: [Other intervertebraldisc degeneration, lumbar region]Onset: 31-95-2402DtvunkzSxjpblhsbnp; intervertebral disc disorders; other back problems (20 sources)Neck pain; Translations: [Cervicalgia]Onset: EpisodicUnclassified (4 sources)LOW BACK PAIN, UNSPECIFIED; Translations: [LOW BACK PAIN, UNSPECIFIED]Onset: 25-18-1695Bmvnmblqstmv (5 sources)Exposure to acute respiratory syndrome coronavirus 2; Translations: [Contact with and (suspected) exposure to COVID-19]Unclassified (1 source)Obesity, class 2; Translations: [Obesity, class 2]Onset: 07-12-2024 Urinary tract infections (14 sources)Urinary tract infectious disease; Translations: [Urinary tract infection, site not specified]EpisodicViral infection (15 sources)Disease caused by 2019-nCoV; Translations: [COVID-19]12-22-2023 EpisodicViral infection (1 source)COVID-19; Translations: [COVID-19]Onset: 07-12-2024 Past or Other Problems Problem ClassificationProblemDateDocumented DateEpisodic/Chronic Administrative/social admission (20 sources)Follow-up status; Translations: [Other specified counseling]Onset: 08-29-2023 Resolved: [id number]peeyx infection; unspecified site (1 source)Bacterial infectious disease; Translations: [Bacterial infection, unspecified, in conditions classified elsewhere and of unspecified site]Onset: 12-65-2094MldakjpfYckp; stupor; and brain damage (1 source)Somnolence; Translations: [Somnolence]Onset: 62-48-5354Nwyykwav Deficiency and other anemia (1 source)Anemia; Translations: [Unspecified anemia]Onset: 31-41-7720Ggfzhers Diabetes mellitus without complication (20 sources)Impaired fasting glycemia; Translations: [Impaired fasting glucose] Onset: 719414-49-3684SjdzpxxgMkjsileb of upper limb (13 sources)Fracture of unspecified carpal bone, right wrist, initial encounter for closed fracture; Translations: [Fracture of right wrist]Onset: 08-03-2024 11-83-2112JlqgukgxRvkvhzv and fatigue (20 sources)Fatigue; Translations: [Other malaise and fatigue]Onset: 09-07-2021 EpisodicMood disorders (7 sources)Mood disordersOnset: 334853-89-0732Cpyewhgeo of unspecified nature or uncertain behavior (1 source)Neoplasm of uncertain behavior of kidney; 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]Onset: 15-80-4839ZvrvncstYbpav acquired deformities (4 sources)Unspecified deformity of right finger(s); Translations: [UNSPECIFIED DEFORMITY RIGHT FINGERS]Onset: 01-88-4284MpuvhjiyDstcp connective tissue disease (1 source)Spasm; Translations: [Spasm of muscle]Onset: 79-28-7504KbejvucuEwqzd connective tissue disease (1 source)Myalgia/myositis - multiple; Translations: [Unspecified myalgia and myositis]Onset: 52-75-8571YgdfqqhrAtmhz ear and sense organ disorders (1 source)Acute otitis externa; Translations: [Other acute otitis externa]Onset: 17-25-6902QcsxyjgqCqdbn lower respiratory disease (20 sources)Dyspnea; Translations: [Other respiratory abnormalities]Onset: 954692-05-8202TcmaiodzYidhp lower respiratory disease (5 sources)Dyspnea, unspecified; Translations: [DYSPNEA UNSPECIFIED]Onset: 71-64-7493PnkfpulyKktso nervous system disorders (1 source)Altered sensation of skin; Translations: [Disturbance of skin sensation]Onset: 45-89-1418UoixgopvVfxlf non-traumatic joint disorders (1 source)Arthralgia of the lower leg; Translations: [Pain in joint, lower leg] Onset: 76-45-5351GvganfjmFqiqj nutritional; endocrine; and metabolic disorders (12 sources)Obesity; Translations: [Obesity, unspecified]Onset: 02-25-2023 Resolved: [id number] screening for suspected conditions (not mental disorders or infectious disease) (1 source)Mammography abnormal; Translations: [Unspecified abnormal mammogram] Onset: 99-48-8444RgutuaphBcuiu upper respiratory infections (1 source)Acute maxillary sinusitis; Translations: [Acute maxillary sinusitis] Onset: 93-80-7044LobwattbNryzsokn codes; unclassified (1 source)Postmenopausal state; Translations: [Asymptomatic postmenopausal status]Onset: 28-47-1153MugfqqnnMpnuagvk codes; unclassified (1 source)C/O - a back symptom; Translations: [Other symptoms referable to back] Onset: 28-15-6974OlsdxdpjDrghqfsu codes; unclassified (2 sources)Other specified health status; Translations: [Other specified health status]Onset: 07-01-8121YkvekavmOpmquixd codes; unclassified (1 source)Other specified personal risk factors, not elsewhere classified; Translations: [Other specified personal risk factors, not elsewhere classified] Onset: 88-98-4713IykwrpvqMjkoecupvxwv (6 sources)Never smoked tobacco; Translations: [Never a smoker]Unclassified (1 source)LOW BACK PAIN, UNSPECIFIED; Translations: [LOW BACK PAIN, UNSPECIFIED] Onset: 31-73-5279Pwnnxztopxup (6 sources)Onset: 08-29-2023 Resolved: Results Test NameValueInterpretationReference RangeFacilityBasophils Auto (Bld) [#/Vol] Ordered By: Anupam Pereira on 87-64-8830Txzmfimkx (Bld) [#/Vol]0.0 10 3/uL0.0-0.1 [facility] HospitalBasophils/100 WBC Auto (Bld)Ordered By: Anupam Pereira on 65-79-6329Ixoalhsek/100 WBC (Bld)0.4 %0.2-2.0[facility] HospitalEosinophils/100 WBC Auto (Bld)Ordered By: Anupam Pereira on 02-04-2025 Eosinophils/100 WBC (Bld)2.0 %0.9-7.0[facility] Erythrocyte distribution width Auto (RBC) [Ratio]Ordered By: Anupam Pereira on 61-75-8419Ggudrnhutdk distribution width (RBC) [Ratio]13.4 %11.0-15.0[facility] HospitalGlomerular filtration rate (GFR) estimation in non- AmericanOrdered By: Anupam Pereira on 55-32-5632YHF/1.73 sq M.predicted among non-blacks MDRD (S/P/Bld) [Vol rate/Area]mL/min/{1.73_m2}>=60 mL/min/1.73m 2FMercy HospitalHematocrit Auto (Bld) [Volume fraction]Ordered By: Anupam Pereira on 69-75-3322Gcsmjynpei (Bld) [Volume fraction]38.2 %36.0-48.0 [facility] HospitalHemoglobin [Mass/volume] in BloodOrdered By: Anupam Pereira on 24-32-3620Bqgguerufz (Bld) [Mass/Vol]12.5 g/dL12.0-16.0[facility] HospitalLaboratory - Chemistry and Chemistry - challengeOrdered By: Anupam Pereira on 12-13-8308Tcpvplm [Mass/Vol]9.3 mg/dL8.5-10.1FMercy HospitalChloride [Moles/Vol]105 mmol/Y79-142VcobnafbrWooster Community HospitalCO2 [Moles/Vol]30.2 mmol/L21.0-32.0[facility] HospitalCreatinine [Mass/Vol]0.75 mg/dL0.55-1.02[facility] GFR/1.73 sq M.predicted MDRD (S/P/Bld) [Vol rate/Area]mL/min/{1.73_m2}>=60 mL/min/1.[address]m [address] [place], [place] [address]Glucose [Mass/Vol]95 mg/qH51-918 [facility] HospitalPotassium [Moles/Vol]3.9 mmol/L3.5-5.1FOhioHealth Southeastern Medical Centerodium [Moles/Vol]143 mmol/V977-430MdwmszbkxWooster Community HospitalUrea nitrogen [Mass/Vol]17.0 mg/dL7.0-18.0[facility] HospitalUrea nitrogen/Creatinine [Mass ratio]22.7 mg/mgWooster Community HospitalBilirubin Ql (U)NegativeNEGSt. Vincent Hospital Glucose (U) [Mass/Vol]NegativeNEGATIVEWooster Community HospitalKetones Ql (U)NegativeNEGSt. Vincent HospitalpH (U)6.0 [pH]5.0-9.0 [facility] Hospitalpecific gravity (U) [Rel density]1.025 1.005-1.025[facility] HospitalUrobilinogen Qn (U)2.0 {Trish'U}/dLAbnormal0.2-1.0[facility] HospitalLaboratory - Hematology and Cell countsOrdered By: Anupam Pereira on 06-13-3130Ibyhhlsc granulocytes/100 WBC (Bld)0.4 %0.0-0.5FMercy Hospital Laboratory - Specimen informationOrdered By: Anupam Pereira on 02-04-2025 Appearance (U)CLEARCLEARFMercy HospitalColor (U)LT. YELLOW YELLOWWooster Community HospitalLaboratory - UrinalysisOrdered By: Anupam Pereira on 21-47-7846Srxjwwhhw esterase Test strip Ql (U)NegativeNEGSt. Vincent HospitalNitrite Ql (U)NegativeNEGSt. Vincent HospitalProtein Ql (U)NegativeNEG/TRACEWooster Community HospitalLeukocytes [#/volume] corrected for nucleated erythrocytes in Blood by Automated coun Ordered By: Anupam Pereira on 26-78-4735WHN corrected for nucl RBC Auto (Bld) [#/Vol]7.4 10 3/uL4.0-11.0[facility] HospitalLymphocytes Auto (Bld) [#/Vol]Ordered By: Anupam Pereira on 08-19-4005Pgbyrcwvaow (Bld) [#/Vol]1.8 10 3/uL1.2-3.8[facility] HospitalLymphocytes/100 WBC Auto (Bld) Ordered By: Anupam Pereira on 25-02-8532Zcjpwturxdb/100 WBC (Bld)24.4 %20.5-60.0 [facility]H Auto (RBC) [Entitic mass]Ordered By: Anupam Pereira on 49-64-4108RSG (RBC) [Entitic mass]28.3 pg26.7-34.0[facility] HospitalMCHC Auto (RBC) [Mass/Vol]Ordered By: Anupam Pereira on 02-04-2025 MCHC (RBC) [Mass/Vol]32.7 g/dL29.9-35.2FMercy HospitalMCV Auto (RBC) [Entitic vol]Ordered By: Anupam Pereira on 44-69-5893EMJ (RBC) [Entitic vol]86.6 fL81.0-99.0[facility] HospitalMonocytes Auto (Bld) [#/Vol]Ordered By: Anupam Pereira on 74-02-9898Zakjqdcxo (Bld) [#/Vol]0.7 10 3/uL 0.3-0.8[facility] HospitalMonocytes/100 WBC Auto (Bld)Ordered By: Anupam Pereira on 39-95-8505Qeviuiskp/100 WBC (Bld)8.8 %1.7-12.0[facility] HospitalNeutrophils Auto (Bld) [#/Vol]Ordered By: Anupam Pereira on 83-61-5243Vdrszqwpyna (Bld) [#/Vol]4.7 10 3/uL1.4-6.5FMercy HospitalNeutrophils/100 WBC Auto (Bld)Ordered By: Anupam Pereira on 02-04-2025 Neutrophils/100 WBC (Bld)64.0 %43.0-75.0[facility] HospitalNo Panel InformationOrdered By: Anupam Pereira on 48-29-1050Brodkarhlpj # (Auto)0.2 10 3/uL0.0-0.7FMercy HospitalImmature Granulocyte # (Auto)0.03 10 3/uL0.00-0.03[facility] HospitalUrine Occult BloodTRACE-I NEGATIVEWooster Community HospitalPlatelet mean volume Auto (Bld) [Entitic vol]Ordered By: Anupam Pereira on 93-50-5905Muytopyf mean volume (Bld) [Entitic vol]9.8 fL9.5-13.5FMercy HospitalPlatelets Auto (Bld) [#/Vol]Ordered By: Anupam Pereira on 16-64-1060Ulsxciuuz (Bld) [#/Vol]322 10 3/uL 150-450[facility] HospitalRBC Auto (Bld) [#/Vol]Ordered By: Anupam Pereira on 70-73-2711GDQ (Bld) [#/Vol]4.41 10 6/uL4.20-5.40[facility] Hospitalerum or plasma anion gap determinationOrdered By: Anupam Pereira on 36-99-7068Wlwdx gap [Moles/Vol]11.7 mmol/LFMercy Hospital Magnetic resonance imaging reportOrdered By: Harsh Ríos on 39-20-5132Ykcsd reportPAULDING [place] [address] MRI Report Signed Patient: Nya Bell MR#: [id number] : 1955 Acct:[id number] Age/Sex: 68 / F ADM Date: 5 Loc: MR Room: Type: [facility] Attending Dr: Maren Aden Copies to: Maren Aden~ Ordering Provider: Maren Aden Date of Service: 08/03/24 XR/XR pre/post mri xray: S52.591A ([id number]) MR/MR wrist RT wo con: SEE ORDER [...] bony alignment. Mild degeneration. Unremarkable soft tissues. Ulnarminus variance Impression dictated by: Harsh Ríos M.D.08/03/2024 3:45 PM Dictation Location: [place] [address] Transcribed By: [facility] 08/03/24 1545 Dictated By: Harsh Ríos DO 08/03/24 1520 Signed By: 08/03/24 1545 [facility] HospitalXR pre/post mri xrayon 51-07-4307FC pre/post mri xrayPAULDING COUNTY [facility] [place] [address] [place] [address] MRI Report Signed Patient: Nya Bell MR#: [id number] : 1955 Acct:[id number] Age/Sex: 68 / F ADM Date: 08/03/24 Loc: MR Room: Type: [facility] Attending Dr: Maren Aden Copies to: Maren Aden Ordering Provider: Maren Aden Date of Service: 08/03/24 XR/XR pre/post mri xray: S52.591A ([id number]) MR/MR wrist RT wo con: SEE ORDER [...] Harsh Ríos M.D.08/03/2024 3:45 PM Dictation Location: [place] [address] Transcribed By: [facility] 08/03/24 1545 Dictated By: Harsh Ríos DO 08/03/24 1520 Signed By: 08/03/24 1545NoCaroMont Regional Medical Center Physician AmvivW1A with Estimated Average Gluon 93-14-8540Gwhklyr [Mass/Vol]114 mg/dLNoCaroMont Regional Medical Center Physician GroupComment on above:Result Comment: PERFORMED BY: [address] [place] [address] PATHOLOGIST PLATER SUPERVISOR ARASELI SAHU M.D.Performed By: #### CBCNO, A1C WT eA, LIPID, TSH3 wRFLX #### [facility] [address] [place] [address] QWBWxQ1n (Bld) [Mass fraction]5.6 %Normal4.3-5.6[facility] Physician [facility] HospitalComment on above:Result Comment: Increased risk for diabetes: 5.7 - 6.4 diabetes: >6.4 glycemic control for adults with diabetes: <7.0Performed By: #### CBCNO, A1C WT eA, LIPID, TSH3 wRFLX #### [address] [place] [address] USABlood estimated average glucose determination by estimation from glycated hemoglobinOrdered By: Rosemarie Lea on 07-12-2024 Average glucose Estimated from glycated hemoglobin (Bld) [Mass/Vol]Glucose mean value [Mass/volume] in Blood Estimated from glycated hemoglobinWooster Community HospitalCholesterol [Mass/volume] in Serum or PlasmaOrdered By: Rosemarie Lea on 91-73-3859Pwgfzrjfump [Mass/Vol]Cholesterol [Mass/volume] in Serum or Ahfdhm020-215RnfwthphiWooster Community HospitalComment on above:Chol less than 200 mg/dl low riskChol 201-239 mg/dl borderline riskChol 240 mg/dl and greater high riskCholesterol in HDL [Mass/volume] in Serum or PlasmaOrdered By: Rosemarie Lea on 84-46-6546Oaklofdstyz in HDL [Mass/Vol]Serum or plasma high density lipoprotein (HDL) cholesterol furazykosaf67-34AkqmijqsrWooster Community HospitalComment on above:HDL CHOL ATP-III CLASSIFICATION Cardiovascular RiskHDL > or equal to 60 mg/dL LOWHDL < 40 mg/dL HIGHCholesterol in LDL Calc [Mass/Vol] Ordered By: Rosemarie Lea on 54-49-7947Xaqdexyjpgy in LDL [Mass/Vol] Cholesterol in LDL [Mass/volume] in Serum or Plasma by calculation0-100[facility] HospitalComment on above:LDL ATP III CLASSIFICATIONLDL less than 100 mg/dL OptimalLDL 100-129 mg/dL Near or above jfiuvkdXUS046-769 mg/dL Borderline highLDL 160-189 mg/dL HighLDL greater than 189 mg/dL Very high Cholesterol in VLDL Calc [Mass/Vol]Ordered By: Rosemarie Lea on 07-12-2024 Cholesterol in VLDL [Mass/Vol]Cholesterol in VLDL [Mass/volume] in Serum or Plasma by calculationWooster Community HospitalErythrocyte distribution width Auto (RBC) [Ratio]Ordered By: Rosemarie Lea on 17-59-3236Pmyvtcydlvy distribution width (RBC) [Ratio]Erythrocyte distribution width [Ratio] by Automated count11.9-15.3FMercy HospitalHematocrit Auto (Bld) [Volume fraction]Ordered By: Rosemarie Lea on 25-10-4382Mggbaxfdjx (Bld) [Volume fraction]Hematocrit [Volume Fraction] of Blood by Automated count 34.0-46.4FMercy HospitalHemoglobin A1c/Hemoglobin.total in BloodOrdered By: Rosemarie Lea on 47-14-2909TgU7i (Bld) [Mass fraction] Hemoglobin A1c percentage4.3-5.6FMercy HospitalComment on above:Increased risk for diabetes: 5.7 - 6.4diabetes: >6.4glycemic control for adults with diabetes: <7.0Hemoglobin [Mass/volume] in BloodOrdered By: Rosemarie Lea on 06-54-5153Ngjilcoldm (Bld) [Mass/Vol]Hemoglobin [Mass/volume] in Blood11.8-15.4FMercy HospitalHemogram CBC Without Diffon 75-14-0636Wqiffmjkbnj distribution width (RBC) [Ratio]14.4 %Trnwpf01.9-15.3[facility] Physician GroupComment on above:Performed By: #### CBCNO, A1C WTH eA, LIPID, TSH3 wRFLX #### [facility] [address] [place] [address] USAHematocrit (Bld) [Volume fraction]36.0 %Ptkydh89.0-46.4[facility] Physician GroupComment on above:Performed By: #### CBCNO, A1C WTH eA, LIPID, TSH3 wRFLX #### [facility] [address] [place] [address] USAHemoglobin (Bld) [Mass/Vol]12.3 g/oUXfmzvc03.8-15.4The [facility] Physician GroupComment on above:Performed By: #### CBCNO, A1C WTH eA, LIPID, TSH3 wRFLX #### [facility] [address] [place] [address] USAH (RBC) [Entitic mass]29.0 smJhbqfv36.7-34.3The [facility] Physician GroupComment on above:Performed By: #### CBCNO, A1C WTH eA, LIPID, TSH3 wRFLX #### [facility] [address] [place] [address] USAV (RBC) [Entitic vol]84.7 gRChtnbd15-072Kcq [facility] Physician GroupComment on above:Performed By: #### CBCNO, A1C WTH eA, LIPID, TSH3 wRFLX #### [facility] [address] [place] [address] USAMean Corpuscular HGB Conc34.2 g/kKLderzf46.0-35.0The [facility] Physician GroupComment on above:Performed By: #### CBCNO, A1C WTH eA, LIPID, TSH3 wRFLX #### [place] [address] USAPlatelet mean volume (Bld) [Entitic vol]9.0 fLNormal 6.3-10.7The [facility] Physician GroupComment on above:Result Comment: PERFORMED BY: [place] [address] PATHOLOGIST PLATER SUPERVISOR ARASELI SAHU M.D.Performed By: #### CBCNO, A1C WTH eA, LIPID, TSH3 wRFLX #### [place] [address] USAPlatelets (Bld) [#/Vol]299 10*3/tRFrtecx864-770Kun [facility] Physician GroupComment on above:Performed By: #### CBCNO, A1C WTH eA, LIPID, TSH3 wRFLX #### [place] [address] USARBC (Bld) [#/Vol]4.25 10*6/uLNormal3.60-5.00The [facility] Physician GroupComment on above:Performed By: #### CBCNO, A1C WTH eA, LIPID, TSH3 wRFLX #### [place] [address] USAWBC (Bld) [#/Vol]8.0 10*3/uLNormal3.8-11.6The [facility] Physician GroupComment on above:Performed By: #### CBCNO, A1C WTH eA, LIPID, TSH3 wRFLX #### [address] [place] [address] USALeukocytes [#/volume] corrected for nucleated erythrocytes in Blood by Automated counOrdered By: Rosemarie Lea on 81-12-5940NJW corrected for nucl RBC Auto (Bld) [#/Vol]Leukocytes [#/volume] corrected for nucleated erythrocytes in Blood by Automated coun3.8-11.6FMercy HospitalLipid Panelon 44-67-6894Bqxdndpsris [Mass/Vol]145 mg/dLNormal 140-200The [facility] Physician GroupComment on above:Result Comment: Chol less than 200 mg/dl low risk Chol 201-239 mg/dl borderline risk Chol 240 mg/dl and greater high riskPerformed By: #### CBCNO, A1C WTH eA, LIPID, TSH3 wRFLX #### [facility] [address] [place] [address] USACholesterol in HDL [Mass/Vol]51 mg/oQPszwmr27-70Jwl [facility] Physician GroupComment on above:Result Comment: HDL CHOL ATP-III CLASSIFICATION Cardiovascular Risk HDL > or equal to 60 mg/dL LOW HDL < 40 mg/dL HIGHPerformed By: #### CBCNO, A1C WTH eA, LIPID, TSH3 wRFLX #### [facility] [address] [place] [address] USACholesterol.total/Cholesterol in HDL [Mass ratio]2.8 {ratio}Normal<5.0The [facility] Physician GroupComment on above:Performed By: #### CBCNO, A1C WTH eA, LIPID, TSH3 wRFLX #### [facility] [address] [place] [address] USALDL Cholesterol,Cbctfesemf49 mg/dLNormal0-100The [facility] Physician GroupComment on above:Result Comment: LDL ATP III CLASSIFICATION LDL less than 100 mg/dL Optimal LDL 100-129 mg/dL Near or above optimal LDL 130-159 mg/dL Borderline high LDL 160-189 mg/dL High LDL greater than 189 mg/dL Very highPerformed By: #### CBCNO, A1C WTH eA, LIPID, TSH3 wRFLX #### [facility] [address] [place] [address] USATriglyceride w/Ekjdcx45 mg/dLNormal0-149[facility] Physician GroupComment on above:Result Comment: TRIG ATP III CLASSIFICATION TRIG less than 150 mg/dL Normal TRIG 150-199 mg/dL Borderline high TRIG 200-500 mg/dL High TRIG greater than 500 mg/dL Very high Standard traceable to the Center for Disease Conrtrol and Prevention (CDC) test method.Performed By: #### CBCNO, A1C [facility] eA, LIPID, TSH3 wRFLX #### [facility] [address] [place] [address] USAVLDL HOLCASYZQHS00 mg/dLNormTallahassee Memorial HealthCare Physician GroupComment on above:Performed By: #### CBCNO, A1C [facility] eA, LIPID, TSH3 wRFLX #### [facility] [address] [place] [id number] [facility] Auto (RBC) [Entitic mass]Ordered By: Rosemarie Lea on 07-25-2537NDQ (RBC) [Entitic mass]MCH [Entitic mass] by Automated count 24.7-34.3FSouthwest General Health Center Auto (RBC) [Mass/Vol]Ordered By: Rosemarie Lea on 21-07-9035AGZM (RBC) [Mass/Vol]MCHC [Mass/volume] by Automated count32.0-35.0[facility] Auto (RBC) [Entitic vol]Ordered By: Rosemarie Lea on 07-39-3098UVT (RBC) [Entitic vol]MCV [Entitic volume] by Automated ktaeh01-876ZdzryoddeWooster Community Hospital Platelet mean volume Auto (Bld) [Entitic vol]Ordered By: Rosemarie Lea on 09-18-0319Gsiccxan mean volume (Bld) [Entitic vol]Platelet mean volume [Entitic volume] in Blood by Automated count6.3-10.7FMercy Hospital Platelets Auto (Bld) [#/Vol]Ordered By: Rosemarie Lea on 31-52-8535Rcddsyqtt (Bld) [#/Vol]Platelets [#/volume] in Blood by Automated rcnre830-068ZdbsiyfuyWooster Community HospitalRBC Auto (Bld) [#/Vol]Ordered By: Rosemarie Lea on 06-27-9017DFZ (Bld) [#/Vol]Erythrocytes [#/volume] in Blood by Automated count 3.60-5.00[facility] Hospitalerum or plasma total cholesterol/high density lipoprotein (HDL) cholesterol mass ratOrdered By: Rosemarie Lea on 76-15-3785Gzjlrokuvsz.total/Cholesterol in HDL [Mass ratio]Serum or plasma total cholesterol/high density lipoprotein (HDL) cholesterol mass rat<5.0[facility] HospitalThyroid Stim Hormone w/Rflxon 23-68-1496Muhedzi Stim Hormone w/Rflx1.67 u[iU]/mLNormal0.45-5.33The [facility] Physician GroupComment on above:Result Comment: PERFORMED BY: [facility] [address] [place] [address] PATHOLOGIST PLATER SUPERVISOR ARASELI SAHU M.D.Performed By: #### CBCNO, A1C WTH eA, LIPID, TSH3 wRFLX #### [place] [address] USAThyrotropin [Units/volume] in Serum or PlasmaOrdered By: Rosemarie Lea on 30-17-9464KGJ QnThyrotropin [Units/volume] in Serum or Plasma 0.45-5.33[facility] HospitalTriglyceride [Mass/volume] in Serum or PlasmaOrdered By: Rosemarie Lea on 48-50-3000Rlbnvyfrkssj [Mass/Vol] Triglyceride [Mass/volume] in Serum or Plasma0-149[facility] HospitalComment on above:TRIG ATP III CLASSIFICATIONTRIG less than 150 mg/dL NormalTRIG 150-199 mg/dL Borderline highTRIG 200-500 mg/dL High TRIG greater than 500 mg/dL Very highStandard traceable to the Center for Disease Conrtrol and Prevention (CDC) test method.HbA1c HPLC (Bld) [Mass fraction]on 05-31-2024 HbA1c (Bld) [Mass fraction]Hemoglobin A1c/Hemoglobin.total in Blood by HPLC [facility] HospitalBASIC METABOLIC PANLon 34-43-3539Pwael gap [Moles/Vol]10 mmol/LNormal5-15[facility] HospitalComment on above: Performed By: #### BMP #### [facility] ([id number]) [address], [address] [place], [place] [address]Yfoyomy [Mass/Vol]9.3 mg/dLWooster Community Hospital Comment on above:Performed By: #### BMP #### [facility] ([id number]) [address], [address] [place], [place] [address]Ippuvxww [Moles/Vol]105 mmol/[facility] Comment on above:Performed By: #### BMP #### [facility] ([id number]) [address] [facility], [address] [place], [place] [address]WL3 [Moles/Vol]26 mmol/[facility] HospitalComment on above:Performed By: #### BMP #### [facility] ([id number]) [address] [facility], [address] [place], [place] [address]Ohqwkltoti [Mass/Vol]0.73 mg/dLWooster Community Hospital Comment on above:Result Comment: METHOD TRACEABLE TO IDMS STANDARDPerformed By: #### BMP #### [facility] ([id number]) [address], [address] [place], [place] [address]KYR/1.73 sq M.predicted among non-blacks MDRD (S/P/Bld) [Vol rate/Area]89 mL/min/{1.73_m2}Normal>59Cleveland ClinicComment on above:Result Comment: Reported eGFR is based on the CKD-EPI 1 equation that does not use a race coefficient.Performed By: #### BMP #### [facility] ([id number]) [address], [address] [place], [place] [address]Mnkbmbf [Mass/Vol]121 mg/dLWooster Community Hospital Comment on above:Performed By: #### BMP #### [facility] ([id number]) [address], [address] [place], [place] [address]Cgvvhizgk [Moles/Vol]3.8 mmol/LFMercy Hospital Comment on above:Performed By: #### BMP #### [facility] ([id number]) [address] [place] [address], [address] [place], [place] [address]Reuvns [Moles/Vol]141 mmol/LFMercy Hospital Comment on above:Performed By: #### BMP #### [facility] ([id number]) [address] [place] [address], [address] [place], [place] [address]Qokq nitrogen [Mass/Vol]19 mg/dLWooster Community HospitalComment on above:Performed By: #### BMP #### [facility] ([id number]) [address] [place] [address], [address] [place], [place] [address]Fc Panel Informationon 55-21-8550Jmkmblcqw GFR (Non- Fegovgam38 mL/minWooster Community HospitalCardiac Device Check - In Clinicon 44-28-9806GlrhqlecfjSouthview Medical Center Work Phone: Radiology Study observation (narrative)[facility] Work Phone: Influenza virus B Ag [Presence] in Upper respiratory specimen by Rapid immunoassayon 38-04-9119DZAFV Ag IA.rapid Ql (Nph)Negative [facility] HospitalNo Panel Informationon 62-19-5948Gbiackxjh Type A (Rapid)NegativeWooster Community HospitalPO SARS CoV-2 Antigen PositiveWooster Community HospitalBasi metabolic 2000 panelon 08-29-2023 Anion gap [Moles/Vol]11 mmol/DCiwhkc79-04JdhpbizfavBarnesville HospitalComment on above:Performed By: #### 86349-0 #### EMILE YEE ([id number]) [facility] ([facility] [address] [place] [address]Olyyfmt [Mass/Vol]9.5 mg/dLNormal8.6-10.3City HospitalComment on above:Performed By: #### 16031-0 #### EMILE YEE ([id number]) [facility] ([facility]) [address] [place], [place] [address]Czbagyvu [Moles/Vol]107 mmol/KDazpim07-739UkbiimxpiwCity HospitalComment on above:Performed By: #### [id number] #### PONCEIBRAMONA VETO PHILLIP ([id number]) [facility] ([facility]) [address], [place] [address]LT7 [Moles/Vol]29 mmol/WCrtnyn14-58MrmebyjdovBarnesville HospitalComment on above:Performed By: #### 74445-6 #### PONCEIBRAMONA VETO PHILLIP ([id number]) [facility] ([facility]) [address] [place] [address] 35039Vlfxprxldz [Mass/Vol]0.75 mg/dLNormal0.50-1.05UnBarnesville HospitalComment on above:Performed By: #### 93707-0 #### EMILE VETO PHILLIP ([id number]) [facility] ([facility]) [address] [place] [address]1106Dlsrxfnhxl filtration rate/1.73 sq M.fyoccihqt49 mL/min/1.73m*2 Normal>60UnBarnesville HospitalComment on above:Result Comment: Calculations of estimated GFR are performed using the 2020 CKD-EPI Study Refit equation without the race variable for the IDMS-Traceable creatinine methods. https://jasn.asnjournals.org/content//ASN.6067353702Deqpjjtfm By: #### 84867-2 #### PONCEIBRAMONA VETO PHILLIP ([id number]) [facility] ([facility]) [address], [place] [address]Lrieihd [Mass/Vol]105 mg/eCDtkn51-18CnrtkfpefnCity HospitalComment on above:Performed By: #### 11394-5 #### PONCEIBRAMONA VETO PHILLIP ([id number]) [facility] ([facility]) [address], [place] [address]Frfhlzlmp [Moles/Vol]4.4 mmol/LNormal3.5-5.3Unbaptist saint [facility]'s hospital Hospitals Maria Medical CenterComment on above:Performed By: #### 94146-7 #### EMILE YEE ([id number]) [facility] ([facility]) [address] [place] [address] 83323Nrfvht [Moles/Vol]143 mmol/ERojxbv745-631UxowufvnknCity HospitalComment on above:Performed By: #### 02179-8 #### PONCEIBRAMONA YEE ([id number]) [facility] ([facility]) [address] [place] [address] 33324Itrp nitrogen [Mass/Vol]19 mg/dLNormal6-23City HospitalComment on above:Performed By: #### 86844-4 #### EMILE YEE ([id number]) [facility] ([facility]) [address] [place] [address] 36291CPG 12 lead (Clinic Performed)on 27-79-7388Pkx scanCPMercy Health St. [facility] Work Phone: Echocardiogramon [phone], [address] [place] [address] TRANSTHORACIC ECHOCARDIOGRAM REPORT Patient Name: NYA BELL Mainor Physician: [id number] Lupe Rosado MD, [facility] Study Date: 11/22/2022 Referring LUPE ROSADO Physician: MRN/PID: [id number] PCP: Anupam Pereira Accession/Order#: [id number] [facility] Location: Date of : 1955 Fellow: Gender: F Nurse: Admit Date: Boat Engine Mechanic: Ashlyn Cam RDCS [facility] Height: 152.40 cm CC Report to: Weight: 91.17 kg Study Type: Echocardiogram BSA: 1.87 m2 Blood Pressure: 134 /62 mmHg Diagnosis/ICD: I50.22-Chronic systolic (congestive) heart failure (CHF); I42.9-Cardiomyopathy, unspecified Indication: AICD, WALDEMAR, Obesity Procedure/CPT: Echo Complete w Full Doppler-[id number] Study Detail: The following Echo studies were [...] normal. There is no indication of pulmonic valveregurgitation. Pericardium: There is no pericardial effusion noted. 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 Lupe Rosado MD, schedule at [facility] for echo Follow up in 6 months [...] scheduled. We will arrange for that at [facility]. Her weight is unchanged from previously and remains above target. Her lab data from PCP from few months ago were reviewed and discussed with her. She needs to take more vitamin D which I recommended. Assessment/recommendations: 1?previous history of nonischemic cardiopathy with ejection fraction now up to 45?50 % by echo December 2020. She remains on Coreg and Entresto. Repeat echocardiogram is scheduled 2?status post AICD, device is assessed by electrophysiology at [facility] 3?cardiac catheterization 7 years ago at [facility] was normal 4? fatigue of [...] Recorded: 09Oct2022 10:59AM Heart Rate72, L Radial Esidqkyj448, LUE, Sitting Mrjitiwvl64, LUE, Sitting Height5 ft Aqcknx925 lb BMI Jnedejhqck10.26 kg/m2 BSA Calculated1.87 Tobacco Useb) No PHQ-2 [...] to auscultation. Cardiovascular: c (more content not included)...NormalUH TouchworksTobacco Screening.on 16-72-1848Luyv risk assessmenta) No falls within the last yearMPWashington County Memorial Hospital PAYMEY 250 DO Work Phone: Tobacco use status CPHSb) NoMPSt. Clare Hospital Dealdrive 250 DO Work Phone: Tobacco Screening.Yes-[facility] PAYMEY 250 DO Work Phone: CBC AUTO DIFFon 32-96-3359NVGX #0.0 103/ulNormal 0.0-0.1[facility] Memorial Hospitalment on above:Performed By: #### CBC ####[facility] [address] [place] [address]Dr.Yilan Mazariegos Basophils/100 WBC (Bld)0.4 %Normal0.2-2.0[facility] on above: Performed By: #### CBC ####[facility] [address] [place] [address]Dr.Yilan ChangEO #0.2 103/ulNormal0.0-0.7The [facility] on above:Performed By: #### CBC ####[facility] Uwtrircswm[address] [place], [place] [address]Dr.Yilan ChangEosinophils/100 WBC (Bld)2.0 %Normal0.9-7.0The [facility] on above:Performed By: #### CBC ####[facility] Gmjbcvrskp[address] [place], [place] [address]Dr.Phillip ChangErythrocyte distribution width (RBC) [Ratio]13.8 %Normal 11.0-15.0The [facility] SouthwoodsComment on above:Performed By: #### CBC ####[facility] Ylbohprmoq[address] [place], [place] [address]Dr. Rerebrent ChangHematocrit (Bld) [Volume fraction]36.3 %Ffgqui33.0-48.0The Cranford HospitalComment on above:Performed By: #### CBC ####[facility] Wy[address]tazi[address] [place], [place] [address]Dr.Rerebrent ChangHemoglobin (Bld) [Mass/Vol]12.1 g/iKRlfpiz35.0-16.0The [facility] SouthwoodsComment on above: Performed By: #### CBC ####[facility] Aozsnmsdry[address] [place], [place] [address]Dr.Rerebrent ChangIG #0.02 10e3/ulNormal0.00-0.03The [facility] SouthwoodsComment on above:Performed By: #### CBC ####[facility] Hdzgjbunzd[address] [place], [place] [address]Dr.Phillip ChangIG %0.3 %Normal 0.0-0.5The [facility] SouthwoodsComment on above:Performed By: #### CBC ####[facility] Crxxbwrlts[address] [place], [place] [address]Dr.Rerebrent ChangLYMPH #1.9 103/ulNormal1.2-3.8The [facility] SouthwoodsComment on above:Performed By: #### CBC ####[facility] Xooysthzpj[address] [place], [place] [address]Dr.Rerebrent ChangLymphocytes/100 WBC (Bld)25.7 %Etzrfx51.5-60.0The [facility] SouthwoodsComment on above:Performed By: #### CBC ####[facility] Sjilhckdtq[address] [place], [place] [address]Dr.Rerebrent ChangMANUAL DIFF REQ NONormalThe [facility] SouthwoodsComment on above:Performed By: #### CBC ####[facility] [address] [place] [address]Dr. Phillip MazariegosH (RBC) [Entitic mass]28.7 wiAvqzyk76.7-34.0The [facility] Comment on above:Performed By: #### CBC ####[facility] Febbgexgeo[address] [place], [place] [address]Dr.Phillip MazariegosHC (RBC) [Mass/Vol]33.3 g/dL Qrqeik22.9-35.2The [facility] SouthwoodsComment on above:Performed By: #### CBC ####[facility] Amqryamnvx[address] [place], [place] [address]Dr. Rerebrent MazariegosV (RBC) [Entitic vol]86.0 pKFclcpw21.0-99.0The [facility] Comment on above:Performed By: #### CBC ####[facility] Cmiydfhiib[address] [place], [place] [address]Dr.Phillip MazariegosMONO #0.6 103/ulNormal0.3-0.8 The [facility] SouthwoodsComment on above:Performed By: #### CBC ####[facility] Rphwfezugi[address] [place], [place] [address]DrMilton Mazariegos Monocytes/100 WBC (Bld)7.8 %Normal1.7-12.0The [facility] SouthwoodsComment on above: Performed By: #### CBC ####[facility] Mmufinelyx[address] [place], [place] [address]Dr.Rerebrent YairNEUT #4.7 103/ulNormal1.4-6.5The [facility] SouthwoodsComment on above:Performed By: #### CBC ####[facility] Zomiaqisfm[address] [place], [place] [address]Dr.Phillip MazariegosNeutrophils/100 WBC (Bld)63.8 %Wbcosv18.0-75.0The [facility] SouthwoodsComment on above:Performed By: #### CBC ####[facility] Yhmittpmax[address] [place], [place] [address]Dr.Phillip MazariegosPlatelet mean volume (Bld) [Entitic vol]9.5 fLNormal9.5-13.5 The [facility] SouthwoodsComment on above:Performed By: #### CBC ####[facility] [address] [place] [address]Dr.Phillip MazariegosPLT269 103/akHinpgy975-250Kyh [facility] SouthwoodsComment on above:Performed By: #### CBC ####[facility] [address] [place] [address]Dr. Phillip MazariegosRBC4.22 106/ulNormal4.20-5.40The [facility] SouthwoodsComment on above: Performed By: #### CBC ####[facility] Xsgyyxnhew[address] [place], [place] [address]Dr.Phillip MazariegosWBC7.4 103/ulNormal4.0-11.0The [facility] SouthwoodsComment on above:Performed By: #### CBC ####[facility] Hgakxvncmk5775[address] [place], [place] [address]Dr.Phillip MazariegosFERRITINon 74-80-6555Mpegjyjq [Mass/Vol]212.0 ng/mLNormal8.0-252.0The [facility] Comment on above:Performed By: #### OCTAVIO, VITB12, VITAD #### [facility] Laboratory [address] [place] [address] Dr. Phillip MazariegosVITAMIN B12on 85-44-7721Xowfkvxic (Vitamin B12) [Mass/Vol]698.0 pg/aSEjpceg202.0-986.0The Berger Hospitalment on above:Performed By: #### FERR, VITB12, VITAD #### [facility] Laboratory [address] [address] [address] Phillip MazariegosVITAMIN D 25 OHon 11-77-4608UAL D 25-OH28.1 ng/mLNormalThe Berger Hospitalment on above:Performed By: #### FERR, VITB12, VITAD ####[facility] Mzgwlxjlrf[address] [place], [place] [address]Dr. Phillip MazariegosVIT D RANGESSEE Summa Health Akron CampusComment on above: Result Comment: <20 ng/mL Vit D deficient 20 - <30 ng/mL Vit D insufficient 30 - 100 ng/mL Vit D sufficient >100 ng/mL Potential ToxicityPerformed By: #### FERR, VITB12, VITAD ####[facility] [address] [place] [address]Dr. Yilan ChangPROF CHEM 8 (BAS METB)on 04-23-2022 Anion gap [Moles/Vol]10.8 mmol/LNormalThe [facility]woodsComment on above: Performed By: #### BMP ####[facility] Itaesebblo334[address] [place], [place] [address]Dr.Yilan ChangCalcium [Mass/Vol]9.1 mg/dLNormal 8.5-10.1The [facility] SouthwoodsComment on above:Performed By: #### BMP ####[facility] Ckyzyrgjaw[address] [place], [place] [address]Dr. Yilan ChangChloride [Moles/Vol]108 mmol/LCritically kioi02-183Hyh [facility]woodsComment on above:Performed By: #### BMP ####[facility] Baaibhdmhd[address] [place], [place] [address]Dr.Yilan ChangCO2 [Moles/Vol] 29.6 mmol/VVnpvuo09.0-32.0The [facility] SouthwoodsComment on above:Performed By: #### BMP ####[facility] Drxywoeyhj[address] [place], [place] [address]Dr.Yilan ChangCreatinine [Mass/Vol]0.85 mg/dLNormal0.55-1.02The [facility] SouthwoodsComment on above:Performed By: #### BMP ####[facility] Qincbktxiu942[address] [place], [place] [address]Dr.Yilan ChangEGFR-AF ST LUCIAN>60Normal>=60The [facility] SouthwoodsComment on above:Performed By: #### BMP ####[facility] Nbbszayoug[address] [place], [place] [address]Dr. Yilan ChangEGFR-NON AF ST LUCIAN>60Normal>=60The [facility] SouthwoodsComment on above:Performed By: #### BMP ####[facility] [address]rxjmtmm[address] [place], [place] [address]Mj.Phillip ChangGlucose [Mass/Vol]90 mg/cMFsqnsj89-869 The [facility] SouthwoodsComment on above:Performed By: #### BMP ####[facility] [address]fr[address] [place] [address]23[address]Dr.Phillip Mazariegos Potassium [Moles/Vol]4.4 mmol/LNormal3.5-5.1The [facility] HospitalComment on above:Performed By: #### BMP ####[facility] [address] [place] [address]Dr.Phillip ChangSodium [Moles/Vol]144 mmol/LNormal 136-145The [facility]woodsComment on above:Performed By: #### BMP ####[facility] [address]tw[address] [place] [address]Dr.Phillip ChangUrea nitrogen [Mass/Vol]24.0 mg/dLCritically high7.0-18.0The [facility] SouthwoodsComment on above:Performed By: #### BMP ####[facility] [address]asj[address] [place] [address]Dr.Phillip ChangUrea nitrogen/Creatinine [Mass ratio] 28.2 mg/mgNormalThe [facility] SouthwoodsComtrinity health mus[facility] on above:Performed By: #### BMP ####[facility] Nemebifepp[address] [place], [place] [address]Dr. 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 (V45.02) (Z95.810) Fatigue (780.79) (R53.83) Obstructive sleep apnea syndrome in adult (327.23) (G47.33) Dyspnea (786.09) (R06.00) Class 2 obesity with body mass index (BMI) of 39.0 to 39.9 in adult (278.00,V85.39) (E66.9,Z68.39) Morbid obesity with BMI of 40.0-44.9, adult (278.01,V85.41) (E66.01,Z68.41) Orders Cardiomyopathy, Chronic systolic congestive heart failure, Dyspnea, Fatigue Basic Metabolic Panel; Status:Active - Retrospective Authorization; Requested for:[id number]; Echocardiogram; Status:Hold For - Scheduling,Retrospective Authorization; Requested for:[id number]; Class 2 obesity with body mass index (BMI) of 39.0 to 39.9 in adult Healthy Weight Tips; Status:Complete - Retrospective Authorization; Done: [id number] Some eating tips that can help you lose weight.; Status:Complete - Retrospective Authorization; Done: [id number] Patient Instructions Please bring all medicines, vitamins, [...] Apart from obesity physical examination was normal. Assessment/recommendations: 1?previous history of nonischemic cardiopathy with ejection fraction now up to 45?50 % by echo December 2020. She remains on Coreg and Entresto. Repeat echocardiogram is scheduled due to progressive fatigue 2?status post AICD, device is assessed by electrophysiology at [facility] 3?cardiac catheterization 7 years ago at [facility] was normal 4?extreme fatigue of [...] negative for complaint. Vitals Vital Signs Recorded: 04Miu8754 11:16AM Heart Rate62, R Radial Jaynqsxf435, LUE, Sitting Cwsdpmltf37, LUE, Sitting Height5 ft Latadn485 lb 5 oz BMI Sogqbzwext75.32 kg/m2 BSA Calculated1.87 Tobacco Useb) No Falls [...] and insight is normal (more content not included)...Normal TouchworksTobacco Screening.on 94-37-1911Jlmo risk assessmenta) No falls within the last yearHighline [facility]-Kendy 250 DO Work Phone: Tobacco use status CPHSb) NoMSwedish Medical Center [facility] [place] 250 DO Work Phone: XR LSPINE MIN 4 VIEWSon 02-43-8899JY LSPINE MIN 4 VIEWSEXAMINATION: XR LSPINE MIN 4 VIEWS HISTORY: Low [...] Electronically authenticated by: MAREN MARTEL Date: 2022-02-05 07:27[facility] HospitalPROF CHEM 8 (BAS METB)on 69-96-9160Zgxes gap [Moles/Vol]12.0 mmol/LNormalRegency Hospital CompanyComment on above:Performed By: #### BMP #### [facility] Laboratory [address] [place] [address] Dr. Phillip MazariegosCalcium [Mass/Vol]9.1 mg/dLNormal8.5-10.1[facility] Comment on above:Performed By: #### BMP #### [facility] Laboratory [address] [place] [address] Dr. Phillip MazariegosChloride [Moles/Vol]107 mmol/FXtdwmn27-975AojRegency Hospital Company Comment on above:Performed By: #### BMP #### [facility] Laboratory [address] [address] [address] Phillip MazariegosCO2 [Moles/Vol]27.0 mmol/WGffjlv26.0-32.0[facility] Comment on above:Performed By: #### BMP #### [facility] Laboratory [address] [address] [address] Phillip MazariegosCreatinine [Mass/Vol]0.89 mg/dLNormal0.55-1.02The [facility] SouthwoodsComment on above:Performed By: #### BMP #### [facility] Laboratory [address] [place] [address] Dr. Phillip MarreroGFR-AF ST LUCIAN>60Normal>=60The [facility] SouthwoodsComment on above:Performed By: #### BMP #### [facility] Laboratory [address] [address] [address] Phillip MarreroGFR-NON AF ST LUCIAN>60Normal>=60The [facility] SouthwoodsComment on above:Performed By: #### BMP #### [facility] Laboratory [address] [place] [address] Dr. Phillip MazariegosGlucose [Mass/Vol]109 mg/dLCritically tqrs85-416Ols [facility] SouthwoodsComment on above:Performed By: #### BMP #### [facility] Laboratory [address] [place] [address] Dr. Phillip MazariegosPotassium [Moles/Vol]4.0 mmol/LNormal3.5-5.1The [facility] Comment on above:Performed By: #### BMP #### [facility] Laboratory [address] [place] [address] Dr. Phillip MazariegosSodium [Moles/Vol]142 mmol/ZTlulux057-672Dbq [facility] Comment on above:Performed By: #### BMP #### [facility] Laboratory [address] [place] [address] Dr. Phillip MazariegosUrea nitrogen [Mass/Vol]19.0 mg/dLCritically high7.0-18.0The [facility] SouthwoodsComment on above:Performed By: #### BMP #### [facility] Laboratory [address] [place] [address] Dr. Phillip Valdivia nitrogen/Creatinine [Mass ratio]21.3 mg/mgNormalThe [facility] SouthwoodsComment on above:Performed By: #### BMP #### [facility] Laboratory [address] [place] [address] Dr. Phillip Wilde.on 74-93-7643Zbmbm depression screening assessmentNoJohn [place] [address] DO Work Phone: Adult depression screening assessmentYeRachel [place] [address] DO Work Phone: Fall risk assessmenta) No falls within the last year [place] [address] DO Work Phone: Tobacco use status CPHSb) NoMKelsey Ville [address] DO Work Phone: Tobacco Screening.3-Nearly every dayJohn [place]ille [address] DO Work Phone: Tobacco Screening.0-Not at allKyle [place] [address] DO Work Phone: Tobacco Screening.Very DifficultK[place] [address] DO Work Phone: CULTURE URINEon 58-77-0969XHJAHGR URINEIsolate 1 Proteus mirabilis >100,000 cfu/mL of Isolate [...] <=0.12 S F Nitrofurantoin <=16 S F Trimethoprim/Sulfamethoxazole >=320 R F ORGANISM 1 Proteus mirabilis [...] <=0.12 S F Nitrofurantoin 128 R F Trimethoprim/Sulfamethoxazole <=20 S FNormalThe [facility] SouthwoodsComment on above:Performed By: #### URCX ####[facility] [address] [place] [address]Dr. Phillip Mendoza AUTO DIFFon 71-80-4049FPCA #0.0 103/ulNormal0.0-0.1The [facility] SouthwoodsComment on above:Performed By: #### CBC #### [facility] Laboratory [address] [address] [address] Phillip MazariegosBasophils/100 WBC (Bld)0.4 %Normal0.2-2.0[facility] Comment on above:Performed By: #### CBC #### [facility] Laboratory [address] [address] [address] Phillip Recinos #0.1 103/ulNormal0.0-0.7The [facility] SouthwoodsComment on above: Performed By: #### CBC #### [facility] Laboratory [address] [address] [address] Phillip Marreroosinophils/100 WBC (Bld)1.9 %Normal0.9-7.0[facility] Comment on above:Performed By: #### CBC #### [facility] Laboratory [address] [address] [address] Phillip Marrerorythrocyte distribution width (RBC) [Ratio]13.4 %Jvgjmz86.0-15.0 The [facility] Hospital [facility] SouthwoodsComment on above:Performed By: #### CBC #### [facility] Laboratory [address] [address] [address] Phillip MazariegosHematocrit (Bld) [Volume fraction]39.6 %Gkzgsi06.0-48.0[facility] Hospital CompanyComment on above:Performed By: #### CBC #### [facility] Laboratory [address] [address] [address] Phillip MazariegosHemoglobin (Bld) [Mass/Vol]13.0 g/mXJgibpz88.0-16.0The [facility] SouthwoodsComment on above:Performed By: #### CBC #### [facility] Laboratory [address] [place] [address] Dr. Phillip Menjivar #0.04 10e3/ulCritically high0.00-0.03The [facility] Comment on above:Performed By: #### CBC #### [facility] Laboratory [address] [place] [address] Dr. Phillip Menjivar %0.5 %Normal0.0-0.5The [facility] Hospital [facility] SouthwoodsComment on above: Performed By: #### CBC #### [facility] Laboratory [address] [place] [address] Dr. Phillip Schmidt #1.9 103/ulNormal1.2-3.8The [facility] SouthwoodsComment on above:Performed By: #### CBC #### [facility] Laboratory [address] [place] [address] Dr. Phillip Rodashocytes/100 WBC (Bld)26.2 %Xtljbg44.5-60.0The [facility] SouthwoodsComment on above:Performed By: #### CBC #### [facility] Laboratory [address] [place] [address] Dr. Phillip Izaguirre DIFF REQNONormalThe [facility] SouthwoodsComment on above: Performed By: #### CBC #### [facility] Laboratory [address] [place] [address] Dr. Phillip Goode (RBC) [Entitic mass]28.8 fhLkutly87.7-34.0The [facility] SouthwoodsComment on above:Performed By: #### CBC #### [facility] Laboratory [address] [place] [address] Dr. Phillip Goode (RBC) [Mass/Vol]32.8 g/qDIqpnlz11.9-35.2The [facility] SouthwoodsComment on above:Performed By: #### CBC #### [facility] Laboratory [address] [place] [address] Dr. Phillip Goode (RBC) [Entitic vol]87.8 nMHwvizl78.0-99.0The [facility] Hospital [facility] SouthwoodsComment on above:Performed By: #### CBC #### [facility] Laboratory [address] [place] [address] Dr. Phillip Dominguez #0.5 103/ulNormal0.3-0.8The [facility] Hospital [facility] SouthwoodsComment on above:Performed By: #### CBC #### [facility] Laboratory [address] [place] [address] Dr. Phillip Kasperocytes/100 WBC (Bld)6.9 %Normal1.7-12.0The [facility] Comment on above:Performed By: #### CBC #### [facility] Laboratory [address] [place] [address] Dr. Phillip Alonso #4.7 103/ulNormal1.4-6.5The [facility] SouthwoodsComment on above:Performed By: #### CBC #### [facility] Laboratory [address] [place] [address] Dr. Phillip Dukeutrophils/100 WBC (Bld)64.1 %Irjqvu45.0-75.0The [facility] SouthwoodsComment on above:Performed By: #### CBC #### [facility] Laboratory [address] [place] [address] Dr. Phillip Sparks mean volume (Bld) [Entitic vol]9.6 fLNormal9.5-13.5The [facility] SouthwoodsComment on above:Performed By: #### CBC #### [facility] Laboratory [address] [place] [address] Dr. Phillip AnnT298 103/hsPkmpti153-681Qtm [facility] SouthwoodsComment on above: Performed By: #### CBC #### [facility] Laboratory [address] [place] [address] Dr. Phillip VivasC4.51 106/ulNormal4.20-5.40The [facility] SouthwoodsComment on above:Performed By: #### CBC #### [facility] Laboratory [address] [place] [address] Dr. Phillip MazariegosWBC7.3 103/ulNormal4.0-11.0The [facility] Hospital [facility] SouthwoodsComment on above: Performed By: #### CBC #### [facility] Laboratory [address] [place] [address] Dr. Phillip MazariegosPROF CHEM 8 (BAS METB)on 71-11-3813Kyhwu gap [Moles/Vol]11.7 mmol/LNormalThe [facility] SouthwoodsComment on above:Performed By: #### TSH, BMP #### The [facility] [address] [place] [address] Dr. Phillip MazariegosCalcium [Mass/Vol]8.8 mg/dLNormal8.5-10.1The [facility] Comment on above:Performed By: #### TSH, BMP #### [facility] [address] [place] [address] Dr. Phillip MazariegosChloride [Moles/Vol]103 mmol/VJcyywc55-378Iwj [facility] Comment on above:Performed By: #### TSH, BMP #### [facility] [address] [place] [address] Dr. Phillip MazariegosCO2 [Moles/Vol]28.0 mmol/QCszslh06.0-32.0The [facility] Comment on above:Performed By: #### TSH, BMP #### [facility] [address] [place] [address] Dr. Phillip MazariegosCreatinine [Mass/Vol]1.02 mg/dLNormal0.55-1.02The [facility]woodsComment on above:Performed By: #### TSH, BMP #### [facility] [address] [place] [address] Dr. Phillip MarreroGFR-AF ST LUCIAN>60Normal>=60The [facility]woodsComment on above:Performed By: #### TSH, BMP #### [facility] [address] [place] [address] Dr. Phillip MarreroGFR-NON AF JQSUEGSP19 mL/min/1.72u4Thedfvniaa low>=60The [facility]woodsComment on above:Performed By: #### TSH, BMP #### [facility] [address] [address] [address] Phillip MazariegosGlucose [Mass/Vol]119 mg/dLCritically ntfw90-900Iyq [facility]woodsComment on above:Performed By: #### TSH, BMP #### [facility] [address] [place] [address] Dr. Phillip MazariegosPotassium [Moles/Vol]3.7 mmol/LNormal3.5-5.1The [facility] Comment on above:Performed By: #### TSH, BMP #### [facility] [address] [place] [address] Dr. Phillip MazariegosSodium [Moles/Vol]139 mmol/EAsbnxp643-499Aae [facility] Comment on above:Performed By: #### TSH, BMP #### [facility] [address] [place] [address] Dr. Phillip MazariegosUrea nitrogen [Mass/Vol]19.0 mg/dLCritically high7.0-18.0The [facility]woodsComment on above:Performed By: #### TSH, BMP #### [facility] [address] [place] [address] Dr. Phillip Valdivia nitrogen/Creatinine [Mass ratio]18.6 mg/mgNoMemorial Health System Marietta Memorial HospitalComment on above:Performed By: #### TSH, BMP #### [facility] [address] [place] [address] Dr. Phillip Harrison 37-96-3072IFV7.616 uIU/mLNormal0.358-3.740The [facility]woodsComment on above:Performed By: #### TSH, BMP #### [facility] [address] [place] [address] Dr. Phillip Blanca [facility] BELOWOhioHealth Berger HospitalComment on above: Result Comment: <0.34 UIU/ml HYPERTHYROID 0.34-5.60 UIU/ml EUTHYROID >5.60 UIU/ml HYPOTHYROIDPerformed By: #### TSH, BMP #### [facility] [address] [place] [address] Dr. Phillip Taylor (CLEAN/CATCH) SUPERVISOR EXTRUSION/MICRO IF IND.on 60-07-9659Kaiwbetvq Ql (U) NegativeNormalNEGATIVEElyria Memorial Hospital HospitalComment on above:Performed By: #### UACSIND ####[facility] [address] [place], [place] [address]Dr. Yilan ChangClarity (U)SL CLOUDYAbnormalCLEMercy Health Urbana Hospital Comment on above:Performed By: #### UACSIND ####[facility] [address] [place], [place] [address]Dr. Yilan ChangColor (U)YELLOWNormalYELLOW [facility] HospitalComment on above:Performed By: #### UACSIND ####[facility] [address] [place], [place] [address]Dr. Yilan Mazariegos Glucose Ql (U)NegativeNormalNEGATIVEElyria Memorial Hospital HospitalComment on above: Performed By: #### UACSIND ####[facility] W[address] [place], [place] [address]Dr. Yilan ChangHemoglobin Ql (U)NegativeNormalNEGATIVE [facility] HospitalComment on above:Performed By: #### UACSIND ####[facility] Bio[address] [place], [place] [address]Dr. Yilan Mazariegos Ketones Ql (U)NegativeNormalNEGATIVERegency Hospital CompanyComment on above: Performed By: #### UACSIND ####[facility] Z[address] [place], [place] [address]Dr. Yilan ChangLEUKOCYTESNegativeNormalNEGATIVEElyria Memorial Hospital HospitalComment on above:Performed By: #### UACSIND ####[facility] [address] [place], [place] [address]Dr. Yilan Mazariegos Nitrite Ql (U)NegativeNormalNEGATIVEElyria Memorial Hospital HospitalComment on above: Performed By: #### UACSIND ####[facility] Xn[address] [place], [place] [address]Dr. Yilan ChangpH (U)6.0 [pH]Normal5-9[facility] HospitalComment on above:Performed By: #### UACSIND ####[facility] [address] [address]Dr. Phillip MazariegosSPEC GRAVITY >=1.364Cxdgarph5.005-<=1.025The [facility]woodsComment on above:Performed By: #### UACSIND ####[facility] [address] [address]Dr. Phillip Taylor PROTEINNegativeNormalNEGATIVE/ TRACEThe Cranford HospitalComment on above:Performed By: #### UACSIND ####[facility] [address] [address]Dr. Phillip MazariegosUR MICRO IND INDICATEDOhioHealth Berger HospitalComment on above:Performed By: #### UACSIND ####[facility] [address] [place], [place] [address]Dr. Phillip Polkbilinogen Qn (U)0.2 {Trish'U}/dLNormal0.2 - 1.0The [facility]woodsComment on above:Performed By: #### UACSIND ####[facility] Dmoq[address] [place], [place] [address]Dr. Phillip Finn MICROSCOPIC ONLYon 61-45-2781ALZTWOOKYWOMVXxdkswghJUMP SEENRegency Hospital Company Comment on above:Performed By: #### UMICRO #### [facility] [address] [place] [address] Dr. Phillip Pemberton identified Cx Nom (U)[facility] HospitalComment on above:Performed By: #### UMICRO #### [facility] [address] [address] [address] Phillip Jean-Baptiste SEENNormalNONE SEENRegency Hospital CompanyComment on above:Performed By: #### UMICRO #### [facility] [address] [address] [address] Phillip Trivediystals LM Nom (Urine sed)NONE SEENNormalNONE SEENRegency Hospital CompanyComment on above:Performed By: #### UMICRO #### [facility] [address] [address] [address] Fisher ChangEpithelial cells LM Ql (Urine sed)FEWAbnormalNONE SEEN /RAREThe [facility]woodsComment on above:Performed By: #### UMICRO #### [facility] [address] [address] [address] Phillip MazariegosMUCOUSTRACEAbnormalNONE SEENThe [facility]woodsComment on above:Performed By: #### UMICRO #### [facility] [address] [address] [address] Phillip MazariegosRBCNONE SEENAbrmal0-2The [facility] SouthwoodsComtrinity health [facility] on above: Performed By: #### UMICRO #### [facility] [address] [address] [address] Phillip MazariegosWBC0-2AbnormalNONE SEENThe [facility]woodsComment on above: Performed By: #### UMICRO #### [facility] [address] [place] [address] Dr. Phillip MazariegosXR CHEST 2 Von 90-19-6908SS CHEST 2 VEXAM: XR CHEST 2 V EXAM: XR CHEST 2 V INDICATION: 65 years old Female Dyspnea COMPARISON: 03/14/20 FINDINGS: The cardiac silhouette is normal. There is no pulmonary edema. The lungs are clear. There is no pneumonia. There is no pneumothorax. There is no abnormal foreign body.pacer noted IMPRESSION: There is no acute abnormality. Electronically authenticated by: ELAINA ARRIAZA Date: 2021-09-07 15:03Ohio[facility] Berger HospitalRadiologyon [id number] Chest 2 ViewsNormalMP-[facility] 320 DO Work Phone: Laboratory - Chemistry and Chemistry - challengeon 68-04-1454Pjrku gap [Moles/Vol]11 mmol/L10 - 20MP-[facility] 250 DO Work Phone: Calcium [Mass/Vol]9.3 mg/dL8.6 - 10.3MP-[facility]cKendy 250 DO Work Phone: Chloride [Moles/Vol]107 mmol/L98 - 107MP-[facility] 250 DO Work Phone: [phone] [Moles/Vol]27 mmol/L21 - 32MP-[facility] 250 DO Work Phone: [phone] [Mass/Vol]0.79 mg/dLSee BelowMP-[address] [address] DO Work Phone: [phone] on above:Reference Range: 0.50 - 1.05Glucose [Mass/Vol]98 mg/dL74 - 99MP-[address] [place] [address] DO Work Phone: [phone] [Moles/Vol]3.7 mmol/L3.5 - 5.3MP-[address] [place] [address] DO Work Phone: [phone] [Moles/Vol]141 mmol/L136 - 145MP-[address] [place] [address] DO Work Phone: [phone] nitrogen [Mass/Vol]20 mg/dL6 - 23MP-[place] [address] DO Work Phone: Laboratory - Coagulationon 08-08-1937rJWX Coag (PPP) [Time]32 s26 - 39MP-[place] [address] DO Work Phone: Comment on above:THE APTT IS NO LONGER USED FOR MONITORING UNFRACTIONATED HEPARIN THERAPY. FOR MONITORING HEPARIN THERAPY, USE THE HEPARIN ASSAY.INR Coag (PPP) [Relative time]1.0 {INR}0.9 - 1.1MP-[place] [address] DO Work Phone: PT Coag (PPP) [Time]11.9 s9.8 - 13.4MP-[place] [address] DO Work Phone: Laboratory - Hematology and Cell countson 08-02-2021 Erythrocyte distribution width (RBC) [Ratio]13.3 %See Below-[address] [place] [address] DO Work Phone: Comment on above:Reference Range: 11.5 - 14.5 Hematocrit (Bld) [Volume fraction]37.9 %See BelowHighline [facility] 250 DO Work Phone: Comment on above:Reference Range: 36.0 - 46.0 Hemoglobin (Bld) [Mass/Vol]12.7 g/dLSee [facility] 250 DO Work Phone: Comment on above:Reference Range: 12.0 - 16.0MCHC (RBC) [Mass/Vol]33.5 g/dLSee BelowHighline Community Hospital [facility] 250 DO Work Phone: Comment on above:Reference Range: 32.0 - 36.0MCV (RBC) [Entitic vol]88 fL80 - 100[facility] 250 DO Work Phone: Platelets (Bld) [#/Vol]168 10*3/uL150 - 450[facility] 250 DO Work Phone: RBC (Bld) [#/Vol]4.33 {x10E12/L}See [facility] 250 DO Work Phone: Comment on above:Reference Range: 4.00 - 5.20WBC (Bld) [#/Vol]7.3 10*3/uL4.4 - 11.3MSwed[facility] 250 DO Work Phone: No Panel Informationon 08-02-2021 [email or web address]?RetrieveTestByDateTime?Patien lHG=[id number]&Da te=02-08-2021&Time=07%3a58%3a03%3a00&TestType=ECG&Site=11&OutputType=PDF&Ext=PDF [facility] 250 DO Work Phone: [phone]-blhxvh ventricular-paced rhythmHighline Community Hospital Special[facility] Center [facility] 250 DO Work Phone: NaypdncoDK-Vhcm[facility] [place] [facility] 250 DO Work Phone: [phone] 1MP-[facility] 250 DO Work Phone: [phone] 1M-[facility] 250 DO Work Phone: [phone] 1M-[facility] 250 DO Work Phone: [phone] [facility] 250 DO Work Phone: [phone] [facility] 250 DO Work Phone: [phone] 1M-[facility] 250 DO Work Phone: [phone] 1M-[facility] 250 DO Work Phone: [phone] 1M-[facility] 250 DO Work Phone: [phone] [facility] 250 DO Work Phone: [phone] [facility] 250 DO Work Phone: [phone] [facility] 250 DO Work Phone: [phone] [facility] 250 DO Work Phone: [phone] [facility] 250 DO Work Phone: [phone] [facility] 250 DO Work Phone: [phone] {mL/min/1.73m2}>90MP-[facility] 250 DO Work Phone: Comment on above:CALCULATIONS OF ESTIMATED GFR ARE PERFORMED USING THE 2020 CKD-EPI STUDY REFIT EQUATION WITHOUT THERACE VARIABLE FOR THE IDMS-TRACEABLE CREATININE METHODS.https://jasn.asnjournals.org/content//ASN.5620755609 Radiologyon 09-59-8789NA Chest 2 ViewsNormalMP-[facility] 250 DO Work Phone: [phone]-52 SOFIAOrdered By: Daphne Mayes on 07-31-2021 SARS-CoV+SARS-CoV-2 (COVID-19) Ag IA.rapid Ql (Resp)NegativeNegativeWooster Community HospitalComment on above:This is a duplicate Gretchen SARS Antigen (RUSTAM) result to be used for statistical tracking purpose only.No Panel InformationOrdered By: Daphne Mayes on 77-79-6887KQUO Antigen (LFIA)[facility] HospitalBasophils Auto (Bld) [#/Vol]Ordered By: Daphne Mayes on 96-83-3621Meeosqkfl (Bld) [#/Vol]0.0 10*3/uL0.0-0.2FMercy HospitalBasophils/100 WBC Auto (Bld)Ordered By: Daphne Mayes on 07-18-2021 Basophils/100 WBC (Bld)0.5 %[facility] HospitalBlood hemoglobin measurement (mass/volume)Ordered By: Daphne Mayes on 80-11-3374Pdxxeictce (Bld) [Mass/Vol]13.2 g/dL11.8-15.4FMercy HospitalBlmercy hospital leukocytes automated count (number/volume)Ordered By: Daphne Mayes on 63-81-9841SCS (Bld) [#/Vol]6.3 10*3/uL4.5-11.0[facility] HospitalCOVID-19 Positive/NegativeOrdered By: Daphne Mayes on 69-23-4171PSPF-CoV-2 (COVID-19) N gene MELL+probe Ql (Resp)PositiveNegativeWooster Community HospitalComment on above:Positive results will only be called to Providers for the following groups of patients: Pre-Surgical Testing, Emergency Room, and Inpatients.Testing for SARS-CoV-2 by RT-PCRThis test was developed and its performance characteristics determined by [employer] ([email or web address]) and validated at the [facility]. This test has not been FDA cleared or approved. This test has been authorized by FDA under an Emergency Use Authorization (EUA). This test has been validated in accordance with the FDA's Guidance Document (Policy for Diagnostics Testing in Laboratories Certified to Perform High Complexity Testing under CLIA prior to Emergency Use Authorization for Coronavirus Disease- 2019 during the Public Health Emergency) issued on August 05, 2019. This test is only authorized for the duration of time the declaration that circumstances exist justifying the authorizationof the emergency use of in vitro diagnostic tests for detection of SARS-CoV-2 virus and/or diagnosis of COVID-19 infection under section 564(b)(1) of the Act, 21 U.S.C. 360bbb-3(b)(1), unless the auth orization is terminated or revoked sooner.Creatinine and Glomerular filtration rate.predicted panel (S/P/Bld)Ordered By: Daphne Mayes on 72-43-8629Ebqbaonhmp [Mass/Vol]0.76 mg/dL0.44-1.03[facility] HospitalEosinophils Auto (Bld) [#/Vol]Ordered By: Daphne Mayes on 50-37-7934Pseiscmfyyz (Bld) [#/Vol]0.2 10*3/uL0.0-0.45[facility] HospitalEosinophils/100 WBC Auto (Bld) Ordered By: Daphne Mayes on 91-86-4367Qmvhhxukqum/100 WBC (Bld)2.7 %[facility] HospitalErythrocyte distribution width Auto (RBC) [Ratio]Ordered By: Daphne Mayes on 78-69-9226Kmjvfgapojx distribution width (RBC) [Ratio]14.1 % 11.9-15.3FMercy HospitalEstimated glomerular filtration rate (GFR) non- AmericanOrdered By: Daphne Mayes on 98-45-3928DJM/1.73 sq M.predicted among non-blacks MDRD (S/P/Bld) [Vol rate/Area]> 60 mL/MinWooster Community HospitalHematocrit Auto (Bld) [Volume fraction]Ordered By: Daphne Mayes on 07-53-2812Qwmpbambaw (Bld) [Volume fraction]39.3 %34.0-46.4FMercy HospitalLaboratory - CoagulationOrdered By: Daphne Mayes on 45-94-7967KD Coag (PPP) [Time]12.7 s9.0-12.9[facility] - Hematology and Cell countsOrdered By: Daphne Mayes on 07-18-2021 Nucleated RBC/100 WBC (Bld) [Ratio]0.2 %0-0.5FMercy Hospital Lymphocytes Auto (Bld) [#/Vol]Ordered By: Daphne Mayes on 07-23-8176Hfnidjizlcq (Bld) [#/Vol]1.8 10*3/uL1.00-4.8[facility] HospitalLymphocytes/100 WBC Auto (Bld)Ordered By: Daphne Mayes on 00-80-6712Devbddqyilg/100 WBC (Bld)28.3 %[facility] CenterH Auto (RBC) [Entitic mass]Ordered By: Daphne Mayes on 09-23-2258AHK (RBC) [Entitic mass]29.3 pg24.7-34.3FMercy HospitalMCHC Auto (RBC) [Mass/Vol]Ordered By: Daphne Mayes on 01-16-9113OTDL (RBC) [Mass/Vol]33.5 g/dL32.0-35.0[facility] HospitalMCV Auto (RBC) [Entitic vol]Ordered By: Daphne Mayes on 46-93-6270QNM (RBC) [Entitic vol] 87.5 nC68-481OosscthpbWooster Community HospitalMonocytes Auto (Bld) [#/Vol] Ordered By: Daphne Mayes on 04-11-3234Kldnyltuo (Bld) [#/Vol]0.5 10*3/uL0.0-0.8 [facility] HospitalMonocytes/100 WBC Auto (Bld)Ordered By: Daphne Mayes on 99-55-6233Jmljmiyan/100 WBC (Bld)7.5 %[facility] Neutrophils Auto (Bld) [#/Vol]Ordered By: Daphne Mayes on 97-33-4190Wpavgyertlb (Bld) [#/Vol]3.9 10*3/uL1.8-7.7FMercy HospitalNeutrophils/100 WBC Auto (Bld)Ordered By: Daphne Mayes on 38-99-5207Okvppsdevuv/100 WBC (Bld)61.0 % [facility] HospitalNo Panel InformationOrdered By: Daphne Mayes on 63-29-3488Wghzkqnja GFR ()> 60 mL/MinWooster Community HospitalComment on above:GFR estimated reference range: According to KDOQI guidelines, <60 ml/min/1.73m2 is sufficient todiagnose a patient with chronic kidney disease.Pharmacy Creatinine Clearance (ChemN/AFMercy HospitalPlatelet mean volume Auto (Bld) [Entitic vol]Ordered By: Daphne Mayes on 21-73-4332Voomtkjn mean volume (Bld) [Entitic vol]8.5 fL6.3-10.7FMercy HospitalPlatelet poor plasma international normalized ratio (INR) by coagulation assay (relatOrdered By: Daphne Mayes on 14-00-5466ITQ Coag (PPP) [Relative time]1.1 {INR}[facility] HospitalComment on above:INR Therapeutic Range A) Pre- and Peroperative OAT started two weeks before surgery. NOT HIP SURGERY: 1.5 - 2.5 HIP SURGERY: 2 - 3B) Primary and secondary prevention of venous THROMBOSIS: 2 - 3C) Active venous thrombosis, pulmonary embolismand prevention of recurrent venous thrombosis: 2 - 3D) Prevention of arterial thromboembolismincluding patients with mechanical heart valves: 3 - 4.5Platelets Auto (Bld) [#/Vol]Ordered By: Daphne Mayes on 45-76-6926Gkwchxzlm (Bld) [#/Vol]282 10*3/nF767-460PtaznqfmnWooster Community HospitalRBC Auto (Bld) [#/Vol]Ordered By: Daphne Mayes on 61-64-3401SRZ (Bld) [#/Vol]4.49 10*6/uL3.60-5.00[facility] Hospitalerum or plasma calcium measurement (mass/volume)Ordered By: Daphne Mayes on 05-03-0424Xelbxdy [Mass/Vol]9.3 mg/dL8.2-10.2FOhioHealth Southeastern Medical Centererum or plasma chloride measurement (moles/volume)Ordered By: Daphne Mayes on 94-48-2820Vvkmmckt [Moles/Vol]103 mmol/D90-508ZptuaonuvCleveland Clinic Marymount Hospitalerum or plasma glucose measurement (mass/volume)Ordered By: Daphne Mayes on 45-01-1255Qlicpvd [Mass/Vol]118 mg/nQ19-023LcwnmdvdhWooster Community Hospital Comment on above:ADA recommended reference rangeRandom Glucose Reference Range is dependent on time and content of last meal. Glucose of more than 200 mg/dL in a nonstressed, ambulatory subject supports the diagnosisof Diabetes Mellitus. Serum or plasma potassium measurement (moles/volume)Ordered By: Daphne Mayes on 55-94-0117Gphctzhyl [Moles/Vol]3.9 mmol/L3.5-5.1FOhioHealth Southeastern Medical Centererum or plasma sodium measurement (moles/volume)Ordered By: Daphne Mayes on 08-36-0156Zttmgc [Moles/Vol]139 mmol/W346-738FbpeucagsWooster Community Hospital Serum or plasma total carbon dioxide measurement (moles/volume)Ordered By: Daphne Mayes on 79-13-5903KL3 [Moles/Vol]26.2 mmol/L22.0-30.0[facility] Hospitalerum or plasma urea nitrogen measurement (mass/volume)Ordered By: Daphne Mayes on 56-03-1186Qxat nitrogen [Mass/Vol]16 mg/dL9-23W[facility] Community HospitalCBCon 38-54-4787Cnumqbrhhtl distribution width (RBC) [Ratio]13.4 %Normal 11.5 - 14.5[facility] Medical CenterComment on above:Performed By: #### CBC #### [address] [id number] (Bld) [Volume fraction]41.9 %Yftsse15.0 - 46.0[facility] CenterComment on above:Performed By: #### CBC #### [address] [id number] (Bld) [Mass/Vol]13.3 g/bRLpzotm50.0 - 16.0[facility] CenterComment on above:Performed By: #### CBC #### [address] [id number] (RBC) [Mass/Vol]31.7 g/dLLow32.0 - 36.0[facility] CenterComment on above:Performed By: #### CBC #### [address] [id number] (RBC) [Entitic vol]91 pMEcvdgn61 - 100[facility] VinelandComment on above:Performed By: #### CBC #### [address] [id number] (Bld) [#/Vol]205 10*3/gCPdiuhh764 - 450[facility] VinelandComment on above:Performed By: #### CBC #### [address] [id number] (Bld) [#/Vol]4.62 x10E12/LNormal4.00 - 5.20[facility] CenterComment on above:Performed By: #### CBC #### [address] [id number] (Bld) [#/Vol]7.4 10*3/uLNormal4.4 - 11.3[facility] CenterComment on above:Performed By: #### CBC #### [address] [id number] 26-51-3757Hchqntlshv [Mass/Vol]0.77 mg/dLNormal 0.50 - 1.05[facility] VinelandComment on above:Performed By: #### CREAT #### [address] [id number] [Mass/Vol]mg/dLNormal>60[facility] VinelandComment on above:Result Comment: CALCULATIONS OF ESTIMATED GFR ARE PERFORMED USING THE MDRD STUDY EQUATION FOR THE IDMS-TRACEABLE CREATININE METHODS. CLIN CHEM 2007;53:766-72Performed By: #### CREAT #### [address] [id number] PANELon 51-81-1520Igyik gap [Moles/Vol]12 mmol/L Lqwgxr25 - 20[facility] CenterComment on above:Performed By: #### ELECT #### [address] [id number] [Moles/Vol]107 mmol/SFgglvw86 - 107[facility] CenterComment on above:Performed By: #### ELECT #### [address] [id number] (Bld) [Moles/Vol]28 mmol/TYfngvr68 - 32[facility] CenterComment on above:Performed By: #### ELECT #### [address] [id number] [Moles/Vol]3.7 mmol/LNormal3.5 - 5.3[facility] VinelandComment on above:Performed By: #### ELECT #### [address] [id number] [Moles/Vol]143 mmol/CRiaicf729 - 145[facility] Medical CenterComment on above:Performed By: #### ELECT #### [address] [id number] NITROGENon 15-21-3037Bbja nitrogen [Mass/Vol]17 mg/dL Normal6 - 23[facility] Medical CenterComment on above:Performed By: #### UREA #### [address] [id number] 79-69-6787SPIKROUVdkca Visit (CARDMN) NYA BELL ([id number]) 1955 F Date Time Provider Department 11/13/18 7:00 AM 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 The patient was unavailable and I left a voicemail to return my call at her convenience. Aba Rodriguez [facility] November 13, 2018 2:31 PM Referring Provider: JONA WAN [[id number]] Allergies As of Date: 11/13/2018 Noted Allergy [...] CAPSULE,HARRIS* Take 40 mg by mouth once sanitago* Problem List As Of Date 11/13/2018 Noted Resolved CHF (congestive heart failure) (HCC) [I50.9] INVALID FOR* Hypertension [I10] INVALID FOR* LBBB (left bundle branch block) [I44.7] INVALID FOR* IRB # [id number]: Wrap-It Study [Z00.6] INVALID FOR* Sleep apnea [G47.30] INVALID FOR* ICD (implantable cardioverter-defibrillator), b*INVALID FOR* Obesity [E66.9] INVALID FOR* Encounter Status:Closed by ABA WILLIAM on 11/13/18[facility] [id number] ID: [id number] Author: Aba Rodriguez [facility] Service: ? Author Type: ? Type: Progress [...] my call at her convenience. Aba Rodriguez [facility] November 13, 2018 2:31 [facility]and[facility] Summary.on [id number] Summary.CODING DATE: 07/02/2017 FINAL [facility] STATUS: Home (Routine DC) PAYOR: Medicare [...] By: Rosa Stubbs Date Saved: 07/02/2017 08:19 [facility] Vital Signs Date TimeVital SignValuePerforming JkykyltwhPihsucbn73-87-0577 10:170400Body kctsuj391.22 cmAnupam Pereira MD Work Phone: [facility]10-03-2025 10:17-0400 Body mass index (BMI) [Ratio]37.6 kg/n0XqsdggAnupam Pereira MD Work Phone: [facility]10-03-2025 10:17-0400 Body hnrsol32.91 kgAnupam Pereira MD Work Phone: [facility]10-03-2025 10:17-0400 Diastolic blood afgygqfu71 mm[Hg]Anupam Pereira MD Work Phone: [phone]([phone]10-03-2025 10:17-0400 Heart rate80 /minAnupam Pereira MD Work Phone: [facility]10-03-2025 10:17-0400 Systolic blood caszzdnu599 mm[Hg]Anupam Pereira MD Work Phone: 1(662)[address]08-29-2025 13:06-0400 Body qtliib683.22 cmAnupam Pereira MD Work Phone: 1(667)7[address]08-29-2025 13:06-0400 Body mass index (BMI) [Ratio]38 kg/k3RwoyrkAnupam Pereira MD Work Phone: 1(016)32663 [address]08-29-2025 13:06-0400 Body jjnbpasdtqk69 [degF]Anupam Pereira MD Work Phone: 1(354)80463 [address]08-29-2025 13:06-0400 Body .82 kgAnupam Pereira MD Work Phone: 1(809)33863 [address]08-29-2025 13:06-0400 Diastolic blood ldfgvmfo79 mm[Hg]Anupam Pereira MD Work Phone: 1(694)80163 [address]08-29-2025 13:06-0400 Heart rate77 /Briana Pereira MD Work Phone: 1(002)39763 [address]08-29-2025 13:06-0400 Respiratory rate14 /Briana Pereira MD Work Phone: 1(837)56363 [address]08-29-2025 13:06-0400 SaO2% (BldA) [Mass fraction]95 %Anupam Pereira MD Work Phone: 1(378)052-[address] [place], [place] 6865308-29-2025 13:06-0400 Systolic blood wyjcxssy663 mm[Hg]Anupam Pereira MD Work Phone: 1(862)316[address]06-04-2025 10:07-0400 Body xyblfj330.4 cmLupe Rosado MD Work Phone: [facility]06-04-2025 10:07-0400 Body mass index (BMI) [Ratio]38.08 kg/a0XypxgjLupe Rosado MD Work Phone: [facility]06-04-2025 10:07-0400 Body .45 kgLupe Rosado MD Work Phone: [facility]06-04-2025 10:07-0400 Diastolic blood fdbcadzm14 mm[Hg]Lupe Rosado MD Work Phone: [facility]06-04-2025 10:07-0400 Heart rate60 /Gigi Rosado MD Work Phone: [facility]06-04-2025 10:07-0400 Systolic blood xjyacmgu979 mm[Hg]Lupe Rosado MD Work Phone: [address] [place], [place] 3386003-24-2025 08:43-0400 Body .22 cmAnupam Pereira MD Work Phone: 1(628)60363 [address]03-24-2025 08:43-0400 Body mass index (BMI) [Ratio]39.4 kg/x7CmlhbhAnupam Pereira MD Work Phone: 1(468)00[address]03-24-2025 08:43-0400 Body owpoqv54.7 kgAnupam Pereira MD Work Phone: 1(153)[address] [place], [place] 3803603-24-2025 08:43-0400 Diastolic blood meyorjdz59 mm[Hg]Anupam Pereira MD Work Phone: 1(215)11863 [address]03-24-2025 08:43-0400 Heart rate70 /Briana Pereira MD Work Phone: 1(997)76163 [address]03-24-2025 08:43-0400 Respiratory rate16 /Briana Pereira MD Work Phone: 1(191)20[address]03-24-2025 08:43-0400 SaO2% (BldA) [Mass fraction]99 %Anupam Pereira MD Work Phone: 1(826)311[address]03-24-2025 08:43-0400 Systolic blood bsotwvht025 mm[Hg]Anupam Pereira MD Work Phone: 1(849)94163 [address]02-10-2025 13:25-0500 Body cvuvul865.22 cmAnupam Pereira MD Work Phone: 1(627)176-[address] [place], [place] 6865302-10-2025 13:25-0500 Body mass index (BMI) [Ratio]39.9 kg/l6LbltbeAnupam Pereira MD Work Phone: 1(834)435-94[facility]02-10-2025 13:25-0500 Body obhwfk69.9 kgAnupam Pereira MD Work Phone: 1(162)759-[address] [place], [place] 6865302-10-2025 13:25-0500 Diastolic blood mm[Hg]Anupam Pereira MD Work Phone: 1(015)183-[address] [place], [place] 6865302-10-2025 13:25-0500 Heart rate76 /minAnupam Pereira MD Work Phone: 1(267)848-25[facility]02-10-2025 13:25-0500 Systolic blood affwzfat766 mm[Hg]Anupam Pereira MD Work Phone: 1(224)989-[address] [place], [place] 6865302-06-2025 10:24-0500 Body obtdyl171.4 cmLupe Rosado MD Work Phone: [facility]02-06-2025 10:24-0500 Body mass index (BMI) [Ratio]38.55 kg/j4UfekbmLupe Rosado MD Work Phone: [facility]02-06-2025 10:24-0500 Body jocwvq18.54 kgLupe Rosado MD Work Phone: [facility]02-06-2025 10:24-0500 Diastolic blood ouplqgba29 mm[Hg]Lupe Rosado MD Work Phone: 8(688)443-[address] [place], [place] 6533402-06-2025 10:24-0500 Heart rate82 /minLupe Rosado MD Work Phone: [facility]02-06-2025 10:24-0500 Systolic blood ocmdldhe151 mm[Hg]Lupe Rosado MD Work Phone: [facility]01-27-2025 11:36-0500 Body qusdau096.22 [facility]-27-2025 11:36-0500Body mass index (BMI) [Ratio]39.7 kg/o5PgekmlsivW[facility]01-27-2025 11:36-0500Body vwazaq90.59 [facility]01-27-2025 11:36-0500Diastolic blood huulwtsh83 mm[Hg][facility] 05-31-2024 11:36-0500Heart rate65 /[facility] 05-31-2024 11:36-0500Respiratory rate16 /[facility] 05-31-2024 11:36-6650UmZ7% (BldA) [Mass fraction]98 %[facility]01-27-2025 11:36-0500Systolic blood rwjwelch389 mm[Hg][facility]10-29-2024 10:53-0400Body oviyjx012.13 [facility]10-29-2024 10:53-0400Body mass index (BMI) [Ratio]38.7 kg/m2 [facility]10-29-2024 10:53-0400Body lulxyh28.45 kg [facility]10-29-2024 10:53-0400Diastolic blood vcewiydn75 mm[Hg][facility]10-29-2024 10:53-0400Heart rate78 /min [facility]10-29-2024 10:53-0400Systolic blood rbjdeyvp272 mm[Hg][facility]08-19-2024 13:59-0400Body bgzixs398.13 cm[facility]08-19-2024 13:59-0400Body mass index (BMI) [Ratio]39.5 kg/t7RnsobiogcW[facility]oster Community Hospital08-19-2024 13:59-0400Body wupgfdlwihi32.6 [degF][facility]08-19-2024 13:59-0400Body .37 kg[facility]08-19-2024 13:59-0400Heart rate 95 /[facility]08-19-2024 13:59-0400Respiratory rate18 /[facility]08-19-2024 13:59-8744KaC3% (BldA) [Mass fraction]97 %[facility]07-16-2024 10:43-0400Body height 152.4 cmLupe Rosado MD Work Phone: 1(289)[address] [place], [place] 6533407-16-2024 10:43-0400 Body mass index (BMI) [Ratio]37.5 kg/l4HfkmscLupe Rosado MD Work Phone: 1(695)[address]07-16-2024 10:43-0400 Body .09 kgLupe Rosado MD Work Phone: 1(244)[address]07-16-2024 10:43-0400 Diastolic blood kqgborby54 mm[Hg]Lupe Rosado MD Work Phone: 1(383)[address]07-16-2024 10:43-0400 Heart rate76 /Gigi Rosado MD Work Phone: 1(353)[address] [place], [place] 6533407-16-2024 10:43-0400 Systolic blood mm[Hg]Lupe Rosado MD Work Phone: 1(585)[address]04-26-2024 10:30-0400 Body zcwjba361.4 cmDaphne Mayes MD Work Phone: 1(311)[address] [place], [place] 6570404-26-2024 10:30-0400 Body mass index (BMI) [Ratio]37.5 kg/m2Daphne Mayes MD Work Phone: 1(695)[address] [place], [place] 6570404-26-2024 10:30-0400 Body hoyztc16.09 kgDaphne Mayes MD Work Phone: 1(720)[address] [place], [place] 6570404-26-2024 10:30-0400 Diastolic blood mxgnzmny86 mm[Hg]Daphne Mayes MD Work Phone: 1(637)[address] [place], [place] 6570404-26-2024 10:30-0400 Heart rate64 /Jesus Mayes MD Work Phone: [facility]04-26-2024 10:30-0400 Systolic blood khlktkum203 mm[Hg]Daphne Mayes MD Work Phone: [facility]01-24-2024 11:30-0500 Body komuoi803.13 cmAnupam Pereira Other [employer] Other 01-24-2024 11:30-0500Body mass index (BMI) [Ratio] 37.33 kg/g1Ukravp Pereira Other [facility] Other 01-24-2024 11:30-0500Body ntojka85.28 kgAnupam Pereira Other [facility] Other 01-24-2024 11:30-0500Diastolic blood rpnbqgsu37 mm[Hg] Anupam Pereira Other [employer] Other 01-24-2024 11:30-0500Systolic blood mm[Hg] Anupamlamine Pereira Other [employer] Other 01-08-2024 13:32-0500Body aqiesy462.4 cmLupe Rosado MD Work Phone: [facility]01-08-2024 13:32-0500 Body mass index (BMI) [Ratio]37.3 kg/p8BjqdnyLupe Rosado MD Work Phone: [facility]01-08-2024 13:32-0500 Body .64 kgLupe Rosado MD Work Phone: [facility]01-08-2024 13:32-0500 Diastolic blood yvfbllct79 mm[Hg]Lupe Rosado MD Work Phone: 1(440)414-[address] [place], [place] 6533401-08-2024 13:32-0500 Heart rate62 /minLupe Rosado MD Work Phone: 0(015)854-[address] [place], [place] 6533401-08-2024 13:32-0500 Systolic blood upawwvdn324 mm[Hg]Lupe Rosado MD Work Phone: 6(236)999-[address] [place], [place] 6533410-24-2023 10:10-0400 Body djknod218.4 cmTraci Gibbs-Ellacott DIRECTOR OF LABOR RELATIONS-RETAIL PERFORMANCE COACH Work Phone: 5(805)099-[address] [place], [place] 6570410-24-2023 10:10-0400 Body mass index (BMI) [Ratio]37.69 kg/r9Bmrbs Gibbs-Ellacott DIRECTOR OF LABOR RELATIONS-RETAIL PERFORMANCE COACH Work Phone: 0(615)24155 [address]10-24-2023 10:10-0400 Body .54 kgTraci Gibbs-Ellacott DIRECTOR OF LABOR RELATIONS-RETAIL PERFORMANCE COACH Work Phone: 4(150)941-[address] [place], [place] 6570410-24-2023 10:10-0400 Diastolic blood ilmbamvq00 mm[Hg]Lynn Gibbs-Ellacott DIRECTOR OF LABOR RELATIONS-RETAIL PERFORMANCE COACH Work Phone: 0(751)276-[address] [place], [place] 6570410-24-2023 10:10-0400 Heart rate74 /minTraci Sai-Ellacott DIRECTOR OF LABOR RELATIONS-RETAIL PERFORMANCE COACH Work Phone: 3(558)560-[address] [place], [place] 6570410-24-2023 10:10-0400 Systolic blood ovaqqolx776 mm[Hg]Lynn Sai-Ellaconatalie DIRECTOR OF LABOR RELATIONS-RETAIL PERFORMANCE COACH Work Phone: 7(920)467-[address] [place], [place] 6570409-07-2023 13:15-0400 Body ocuaxs938.13 cmAnupam Pereira Other [employer] Other 09-07-2023 13:15-0400Body mass index (BMI) [Ratio] 38.05 kg/l6DdckwdAnupam Pereira Other [employer] Other 09-07-2023 13:15-0400Body ojotpi68.91 kgAnupam Randall Other [employer] Other 09-07-2023 13:15-0400Diastolic blood ofauiami59 mm[Hg] Anupam Pereira Other [employer] Other 09-07-2023 13:15-0400Systolic blood ztcoqyig058 mm[Hg] Anupam Pereira Other [employer] Other 08-29-2023 14:15-0400Body etqgbg758.13 cmRossymichelle Pereira Other [employer] Other 08-29-2023 14:15-0400Body mass index (BMI) [Ratio] 38.32 kg/n7PahltaAnupam Pereira Other [employer] Other 08-29-2023 14:15-0400Body xanyuhqsxck12.9 [degF]Anupam Pereira Other [employer] Other 08-29-2023 14:15-0400Body .54 kgAnupam Randall Other [employer] Other 08-29-2023 14:15-0400Diastolic blood mm[Hg] Anupam Pereira Other [employer] Other 08-29-2023 14:15-0400Systolic blood kglzuiwi396 mm[Hg] Anupam Pereira Other [employer] Other 08-22-2023 10:45-0400Body zqdavn141.13 cmAnupam Pereira Other [employer] Other 08-22-2023 10:45-0400Body mass index (BMI) [Ratio] 38.52 kg/p6UskgdcAnupam Pereira Other [employer] Other 08-22-2023 10:45-0400Body ldngef94 kgJulianamichael Pereira Other [employer] Other 08-22-2023 10:45-0400Diastolic blood aimgrohr85 mm[Hg] Anupam Pereira Other [employer] Other 08-22-2023 10:45-0400Systolic blood wskqidha705 mm[Hg] Anupam Pereira Other [employer] Other 06-07-2023 10:59-0400Body mbwwre470.4 cmAnupam Pereira Work Phone: mp264-4373MC-Lptqj [place] [employer] [address] DO Work Phone: 1(569) 995-672806-07-2023 10:59-0400Body mass index (BMI) [Ratio] 39.26 kg/l8JstdinAnupam Pereira Work Phone: mp617-7212NT-Mntdh [place] [facility] [address] DO Work Phone: 1(804) 373-866906-07-2023 10:59-0400Body surface area Derived from formula1.87 c8WtmnweAnupam Pereira Work Phone: mp808-1241OL-Mffyk [place] [facility] [address] DO Work Phone: 1(836) 523-721506-07-2023 10:59-0400Body ojzbbs48.17 kgAnupam Pereira Work Phone: mp745-9942KV-Rcyzt [place] [employer] [address] DO Work Phone: 1(630) 618-423906-07-2023 10:59-0400Diastolic blood ovxbpqlg74 mm[Hg] Anupam Pereira Work Phone: mp884-7023KF-Dtzik [place] [facility] [address] DO Work Phone: 1(911) 356-239506-07-2023 10:59-0400Heart rate72 /minAnupam Pereira Work Phone: mp225-0525DB-Biwdx [place] [facility] DO Work Phone: 1(624) 318-437806-07-2023 10:59-0400Systolic blood mm[Hg] Anupam Pereira Work Phone: mp769-0346KV-Wnfyv [place] [employer] [address] DO Work Phone: 1(840) 870-588701-17-2023 15:30-0500Body acxeoq829.13 cmAnupam Pereira Other [employer] Other 01-17-2023 15:30-0500Body mass index (BMI) [Ratio] 40.11 kg/a5RxmsxaAnupam Pereira Other [employer] Other 01-17-2023 15:30-0500Body meehgy25.63 kgAnupam Pereira Other [facility] Other 01-17-2023 15:30-0500Diastolic blood oazarwvv07 mm[Hg] Anupam Pereira Other [employer] Other 01-17-2023 15:30-5685UrX5% (BldA) [Mass fraction]97 % Anupam Pereira Other [facility] Other 01-17-2023 15:30-0500Systolic blood mm[Hg] Anupam Pereira Other [employer] Other 12-14-2022 11:16-0500Body pzmsya641.4 cmAnupam Pereira Work Phone: mp000-6724CJ-Kligb [place] [facility] [address] DO Work Phone: 1(791) 198-506912-14-2022 11:16-0500Body mass index (BMI) [Ratio] 39.32 kg/r3WbwbfqAnupam Pereira Work Phone: mp150-6197QR-Xbazv [place] [facility] [address] DO Work Phone: 1(723) 410-540812-14-2022 11:16-0500Body surface area Derived from formula1.87 e2NnmhrxAnupam Pereira Work Phone: mp825-5338NB-Xrcmr [place] [facility] [address] DO Work Phone: 1(270) 930-647112-14-2022 11:16-0500Body iznifj05.31 kgAnupam Pereira Work Phone: 1(128) 264-7541847-3854GD-Xabti [place] [facility] [address] DO Work Phone: 1(859) 247-257912-14-2022 11:16-0500Diastolic blood fjhtzyke48 mm[Hg] Anupam Pereira Work Phone: mp179-7114JX-Uhked [place] [facility] [address] DO Work Phone: 1(656) 888-863412-14-2022 11:16-0500Heart rate62 /minAnupam Pereira Work Phone: 1(312) 601-1550184-2960PA-Vkced [place] [facility] [address] DO Work Phone: 1(128) 923-739412-14-2022 11:16-0500Systolic blood tajcpyfb312 mm[Hg] Anupam Pereira Work Phone: mp802-6259ZP-Vxauf [place] [facility] [address] DO Work Phone: 1(905) 923-305706-07-2022 13:20-0400Body uesluy542.4 cmAnupam Pereira Work Phone: mp015-9614PT-Kugif [place] [facility] [address] DO Work Phone: 1(359) 180-240006-07-2022 13:20-0400Body mass index (BMI) [Ratio] 40.23 kg/s2NbkksbAnupam Pereira Work Phone: mp739-0898WM-Ihopn [place] [facility] [address] DO Work Phone: 1(117) 771-170006-07-2022 13:20-0400Body surface area Derived from formula1.89 r7KuleooAnupam Pereira Work Phone: mp134-3756OL-Tenjf [place] [facility] [address] DO Work Phone: 1(692)988-07485-503824-29563704-21-7985 13:20-0400Body lutwah75.44 kgAnupam Pereira Work Phone: mp193-8819ZU-Amdkk [place] [facility] [address] DO Work Phone: 1(362)913-92994-194585-86843477-52-5019 13:20-0400Diastolic blood mm[Hg] Anupam Pereira Work Phone: 1(265) 931-2345315-8932JQ-Pqbwg [place] [facility] [address] DO Work Phone: 1(562)784-68031-502936-20516270-82-0918 13:20-0400Heart rate68 /minAnupam Pereira Work Phone: 1(781) 387-1626291-4139IM-Vijkb [place] [facility] [address] DO Work Phone: 1(169) 145-577406-07-2022 13:20-0400Systolic blood udkvpjqo406 mm[Hg] Anupam Pereira Work Phone: 1(904) 552-6219967-1166JM-RdoabP[facility] 250 DO Work Phone: 1(513)522-547-874541-97 13:20-044726 1Mgreer Pereira Work Phone: 1(160) 285-1723031-2586UT-Hccso [place] [facility] [address] DO Work Phone: Comment on above:PHQ-9 US14-96-3551 15:58-0400Body .4 cmAnupam Pereira Work Phone: 1(867) 310-6123130-7854ML-ShkgiPipestone [facility]-[place] 250 DO Work Phone: 1(655)875-91199-833108-58836810-44-1100 15:58-0400Body mass index (BMI) [Ratio] 41.21 kg/h6CvtjquAnupam Pereira Work Phone: 1(383) 307-8949194-7270CP-Rpbij [place] [facility] [address] DO Work Phone: 1(664)537-08258-713427-55732372-39-2002 15:58-0400Body surface area Derived from formula1.91 r2YouvmzAnupam Pereira Work Phone: mp051-7680BJ-Ljfow [place] [facility] [address] DO Work Phone: 1(718) 761-132404-07-2022 15:58-0400Body yyjuxzkctrj56 [degF]Anupam Pereira Work Phone: mp712-9060SY-Igbfq [place] [facility] [address] DO Work Phone: 1(221) 787-662804-07-2022 15:58-0400Body fmupue22.71 kgAnupam Pereira Work Phone: mp047-3959XE-Litlf [place] [facility] [address] DO Work Phone: 1(210) 171-506404-07-2022 15:58-0400Diastolic blood mm[Hg] Anupam Pereira Work Phone: mp851-4016QB-Cbvnc [place] [facility] [address] DO Work Phone: 1(630) 641-639504-07-2022 15:58-0400Heart rate82 /minAnupam Pereira Work Phone: mp364-9876PM-Wlrmu [place] [facility] [address] DO Work Phone: 1(232) 257-528704-07-2022 15:58-0400Systolic blood vacqtcgp901 mm[Hg] Anupam Pereira Work Phone: mp031-4539QJ-Zcqhh [place] [facility] [address] DO Work Phone: Encounters Encounter DateEncounter TypeCare ProviderFacilityStart: 03-10-2025 End: 85-79-5913Fxivuqa encounter procedureLupe Denney MD [facility]-Pacemaker CheckStart: 03-10-2025 End: 58-60-2597wpmkbisjthMremzf E Braun MD Work Phone: [phone](335)325-3280720-4184-Hcxkgwrtg CheckStart: 93-18-2881Htd-patient / Non-visitMPretty Harper-Heart Rhythm ClinicStart: 02-04-2025 End: 87-65-0956ngdtnvitsdNjzigd E Braun MD Work Phone: [facility] Work Phone: Start: 02-04-2025 End: 98-29-2931Jvupvup encounter procedureAnupam Pereira MD-[facility] Work Phone: Start: 12-31-2024 End: 19-79-5421nvgkiqfqsaLhhkrb E Braun MD Work Phone: [facility] Work Phone: Start: 12-31-2024 End: 57-53-3771Qdlmmqw encounter procedureAnupam Pereira MD-[facility] Work Phone: Start: 12-09-2024 End: 05-69-1098utkbwfjeucQrlqqm [facility] HospitalFac[facility] Hospitaltart: 38-20-5700Bgq-patient / Non-visitShea Gaspar [facility]-Heart Rhythm ClinicStart: 10-06-2024 End: 67-56-0834realxymupyEBEWBI [facility] AmbulatoryStart: 10-06-2024 End: 74-23-9914Owzbjz outpatient visit 25 minutesLupe Rosado MD Work Phone: [facility]Comment [facility]:Nonischemic cardiomyopathy (Multi) (Primary Dx); ICD (implantable cardioverter-defibrillator) in place; Obstructive sleep apnea syndrome in adult; Never smoked cigarettes; BMI 38.0-38.9,adult; Class 2 obesity; Other fatigueStart: 09-03-2024 End: 80-12-1901pdmsovupciAftivk E Braun MD Work Phone: [facility] Work Phone: Start: 09-03-2024 End: 49-25-4347Pabzcbm encounter Enma Pereira MD Work Phone: [facility]-Pacemaker CheckStart: 63-23-9664Psa-patient / Non-visitAnupam Pereira MD Work Phone: [facility]-Heart Rhythm ClinicStart: 08-03-2024 End: 97-53-7092yfcywqszjeMuvzlb E Braun MD Work Phone: [facility] Work Phone: Start: 08-03-2024 End: 79-54-7766Mlamcat encounter Enma Pereira MD Work Phone: [facility] [place] Work Phone: Start: 07-26-2024 End: 63-46-0998vkotvnedjkSxcdds E Braun MD Work Phone: [facility] Work Phone: Start: 07-26-2024 End: 22-08-9052Wjowmch encounter procedureAnupam Pereira MD Work Phone: [facility] Work Phone: Start: 07-12-2024 End: 81-83-6270Ssvgrle encounter procedureAnupam Pereira MD Work Phone: [facility]-Lab [facility] [place] Work Phone: Start: 07-12-2024 End: 12-76-4273knxoqkbjngBqnayc E Braun MD Work Phone: [facility] Work Phone: Start: 06-14-2024 End: 72-78-9331hikingxgyrAsjfju E Braun MD Work Phone: [facility] Work Phone: Start: 06-14-2024 End: 93-23-6746Rewuhzy encounter procedureAnupam Pereira MD Work Phone: [facility] Work Phone: Start: 06-10-2024 End: 72-31-4150Mahgiv outpatient visit 25 minutesLupe Rosado MD Work Phone: [facility] CenterComment on above:ICD (implantable cardioverter-defibrillator) in place (Primary Dx); Chronic systolic congestive heart failure; Fatigue, unspecified type; Obstructive sleep apnea syndrome in adult; Never smoked cigarettes; BMI 38.0-38.9,adult; Class 2 obesityStart: 06-10-2024 End: 61-11-6000oaajpkbhseWYLJET M IBRUT [facility] AmbulatoryStart: 90-46-1303Qge-patient / Non-visitMarcia Pereira MD Work Phone: [facility] Work Phone: Start: 06-03-2024 End: 25-10-2844Cvgkbdu encounter procedureAnupam Pereira MD Work Phone: [facility]-Pacemaker CheckStart: 06-03-2024 End: 00-26-1200nxtijbjmugTjbwwj E Braun MD Work Phone: [facility] Work Phone: Start: 98-23-1795Xja-patient / Non-visitAnupam Pereira MD Work Phone: [facility]-Heart Rhythm ClinicStart: 05-31-2024 End: 57-52-5031vfyoluyrgcDmvicxaxaTrinity Health [facility] Work Phone: Start: 05-31-2024 End: 11-79-4667Bvmkozd encounter procedureAtrium Health [facility] Work Phone: Start: 05-20-2024 End: 34-24-9732xtnjgcecqcMBGIXI M [facility] Hospitaltart: 62-94-8028Gtz-patient / Non-visitAnupam Pereira MD Work Phone: [facility] Work Phone: Start: 77-29-8134Sgq-patient / Non-visitFirelands Physician [facility] Work Phone: Start: 51-55-3026Fvp-patient / Non-visitFirrothschilds Physician Group-Heart Rhythm ClinicStart: 03-02-2024 End: 76-58-7648ubyhprakojOubuuibqbTrinity Health [facility] Work Phone: Start: 03-02-2024 End: 51-93-5062Yvrmveq encounter procedureAtrium Health [facility] Work Phone: Start: 03-01-2024 End: 56-01-3722Ayltvtqdpb hospital visit by physicianE[facility] 2 [place] SpringsComment on above:ICD (implantable cardioverter- defibrillator) in placeStart: 03-01-2024 End: 70-67-9863tskdglgasiINTU J QUANOhiohealth Berger Hospital Start: 12-22-2023 End: 99-70-8699lijbpyvaajEidxrpbyyWyandot Memorial Hospital Work Phone: Start: 12-22-2023 End: 09-83-0555Dpcjgwj encounter procedureAtrium Health [facility] Work Phone: Start: 12-02-2023 End: 48-97-3098bbbxyxsbmfEL Marcia E Braun Work Phone: [facility] Work Phone: Start: 12-02-2023 End: 64-29-6167Lkkbauw encounter procedureMD Anupam Pereira Work Phone: [facility]-Pacemaker CheckStart: 17-80-0556Rkl-patient / Non-visitFircentra health Physician [facility] Start: 11-18-2023 End: 87-65-2107Juorhh outpatient visit 25 minutesLupe Rosado MD Work Phone: uh [facility] UnionComment on above:Cardiomyopathy, unspecified type (Multi); Chronic systolic congestive heart failure (Multi); ICD (implantable cardioverter-defibrillator) in place; Obstructive sleep apnea syndrome in adult; Fatigue, unspecified type; Never smoked cigarettes; Class 2 obesity without serious comorbidity with body mass index (BMI) of 37.0 to 37.9 in adult, unspecified obesity typeStart: 11-18-2023 End: 19-01-4814hkajfrggmdISJFBA M IBRUT [facility] AmbulatoryStart: 08-29-2023 End: 38-32-5082gzjvmdyvjwRSXPNBCherrington Hospitaltart: 08-29-2023 End: 44-37-2233Qxfsfy outpatient visit 25 minutesDaphne Mayes MD Work Phone: [address] [place], [place] [address]Comment on above:ICD (implantable cardioverter-defibrillator) in place (Primary Dx); NICM (nonischemic cardiomyopathy) (Multi) [I42.8]; Chronic systolic congestive heart failure (Multi); Cardiomyopathy, unspecified type (Multi); Dyspnea on exertion; Obstructive sleep apnea syndrome in adult; Class 2 obesity without serious comorbidity with body mass index (BMI) of 37.0 to 37.9 in adult, unspecified obesity type; Never smoked cigarettes; Encounter for medication review and counseling; Encounter to discuss treatment optionsStart: 37-36-3539Wcwodi outpatient visit [address] Joseph Warren Hospitaltart: 05-28-2023 End: 35-92-9957onuixqukjmUO Marcia E Braun Work Phone: [employer] Other Start: 05-28-2023 End: 03-59-3996Lzjbkss encounter procedureMD Anupam Pereira Work Phone: [facility]-Pacemaker CheckStart: 05-20-2023 End: 72-50-3437iymbgbmpejXxbxjn Braun Other [employer] Other Start: 13-27-3769Fmqffpfol encounterAnupam RandallMercy Health St. Joseph Warren Hospitaltart: 05-12-2023 End: 92-47-7623Dkzxzf outpatient visit 25 minutesLupe Rosado MD Work Phone: [facility] CenterComment on above:Cardiomyopathy, unspecified type (CMS/HCC) (Primary Dx); ICD (implantable cardioverter-defibrillator) in place; Obstructive sleep apnea syndrome in adult; Class 2 obesity without serious comorbidity with body mass index (BMI) of 37.0 to 37.9 in adult, unspecified obesity typeStart: 05-08-2023 End: 11-26-5985Hnccwti encounter procedureMD Anupam Pereira Work Phone: [facility] Work Phone: Start: 02-25-2023 End: 95-45-3706Ankyyj outpatient visit 25 minutesLynn Jorgensen APRN-RETAIL PERFORMANCE COACH Work Phone: [facility] CenterComment on above:ICD (implantable cardioverter-defibrillator) in place (Primary Dx); Morbid obesity (CMS/HCC); Chronic systolic congestive heart failure (CMS/HCC); Cardiomyopathy, unspecified type (CMS/HCC); Dyspnea on exertion; Obstructive sleep apnea syndrome in adult; Other fatigueStart: 01-09-2023 End: 78-11-7512ysbsxzpmtxVcfwls Braun Other [employer] Other Start: 68-97-0865Hlqhoh outpatient visit 15 minutes [facility]upam [facility] ClinicStart: 12-31-2022 End: 55-57-8659ockgrwgglsWmrvqr Braun Other [employer] Other Start: 69-52-1781Zlpfre outpatient visit 15 minutes Anupam [facility] ClinicStart: 12-24-2022 End: 25-78-6922awsmbfethvAmopei Braun Other [employer] Other Start: 63-27-3834Qyunmm outpatient visit 15 minutes Anupam Hernandez [facility] ClinicStart: 12-20-2022 End: 43-18-5536dqjcvhiixgCizzgz Braun Other [employer] Other Start: 50-30-4252Seiptzwbq encounterMarcia Yudy David [facility] ClinicStart: 12-16-2022 End: 42-40-5044ysapkekvleJscdkr Braun Other [employer] Other Start: 90-46-9731Vuuozpzit encounterMarmichael Jimenes [facility] ClinicStart: 11-28-2022 End: 91-08-5653bowjirkygsYT Anupam Pereira Work Phone: [facility] Work Phone: Start: 11-28-2022 End: 47-63-8191Eyqafwo encounter procedureMD Anupam Pereira Work Phone: [facility]-Pacemaker CheckStart: 54-04-1670rvyhuaoisjWk. Lupe RosadoFacility:[id number]: 10-09-[address] Lupe VanceimFacility:[id number]: 65-60-7937Wacqzn outpatient visit 25 minutesAnupam Pereira Work Phone: [phone]-Yvmfj [facility] [address] DO Work Phone: Start: 20-61-2324udqdqvzwoyYj. Anupam Pereira Facility:[id number]: 08-28-2022 End: 88-27-0907eqdzvojfiuXV Marcia E Braun Work Phone: [facility] Work Phone: Start: 08-28-2022 End: 82-57-1266Iwwbrld encounter procedureMD Anupam Pereira Work Phone: [facility]-Pacemaker CheckStart: 99-07-2253idheqzrntzGj. Lupe Readcility:9844Start: 08-15-2022 End: 20-32-6673unhwfhfahhVKPEQGCNGHXE LAKSHMIPATHY .Facility:K2Cfeow: 07-17-[address] Lupe RosadoFacility:[id number]: 07-16-2022 End: 50-89-0399kzphrhscupVG ANUPAM Morgancility:T1Wfvup: 28-58-9939Hsrhrmwlp for preprocedural cardiovascular examinationDR JANICE IRVING .[facility]tart: 07-09-2022 End: 42-27-3018xoljtphpndPA MARCIA E BRAUNFacility:F2Dwkxu: 07-09-2022 End: 81-68-2076Nqtwsrkxh for preprocedural cardiovascular examinationDR ANUPAM PEREIRAFacility:G3Ltixe: 06-20-2022 End: 68-26-0893rfijtblzvzYI MARCIA E BRAUNFacility:B0Luevo: 06-04-2022 End: 56-30-7071svgwkmrqufQO MARCIA E BRAUNFacility:B9Tmand: 05-23-2022 End: 74-17-4880thjlhnhgvcHQ MARCIA E [employer] Other Start: 76-19-5028Kuqpidpji encounterAnupam Jimenes [facility] ClinicStart: 05-21-2022 End: 97-51-6096evcohoejkfJN MARCIA E [employer] Other Start: 80-45-5968Nckgrj outpatient visit 15 minutes Anupam Jimenes [facility] ClinicStart: 05-17-2022 End: 99-61-0605hxdtnthjgmVTZack Pereira Work Phone: [facility] Work Phone: Start: 05-17-2022 End: 81-30-3150Kxesirq encounter procedureMD Anupam Pereira Work Phone: [facility]-Pacemaker CheckStart: 05-07-2022 End: 74-89-2080vnkrxbxteaTW MARCIA E BRAUNFacility:O0Ykkcp: 04-23-2022 End: 10-75-8587mauamrxnvrPWNessa PEREIRAFacility:H0Ojtkz: 22-93-3349Qyiynu outpatient visit 25 minutesAnupam Pereira Work Phone: [phone]-Tojvp [facility] DO Work Phone: Start: 51-81-6124uimcueldyhBhDr. Lupe Rosado Facility:[id number]: 04-09-2022 End: 51-52-6373hxdlutzgzjXJNessa PEREIRAFacility:L1Rfpgj: 41-43-3261vodgkcqznacindy PereiraFacility:9090Start: 02-12-2022 End: 70-56-4390lxpvzmfoyxFCJusto Pereira Work Phone: [facility] Work Phone: Start: 02-12-2022 End: 54-64-7361Dhtqqyn encounter procedureMD Anupam Pereira Work Phone: [facility]-Pacemaker CheckStart: 02-04-2022 End: 44-49-4192xzwwvzswnaRE MARCIA E BRAUNFacility:Q0Cqhzi: 06-83-9942yxmkqbvbpn Dr. Anupam PereiraFacility:[id number]: 11-07-2021 End: 06-55-7577Hpthdht encounter procedureMD Anupam Pereira Work Phone: [facility]-Pacemaker CheckStart: 11-06-2021 End: 42-81-2173eevansbankWP HASSAN M IBRAHIMFacility:U2Uicgh: 97-86-1026Acjpiv outpatient visit 25 minutesAnupam Pereira Work Phone: [phone]-Qprhm [facility] DO Work Phone: Start: 09-07-2021 End: 57-21-7844udxrsfyuymUY MARCIA E BRAUNFacility:Y3Ueakg: 66-94-0681Wsqkl UpdateAnupam Pereira Work Phone: [phone]-Kuvsd [facility] [address] DO Work Phone: Start: 93-75-7470Ak RenewalAnupam Pereira Work Phone: [phone]-Mzdyk [facility] DO Work Phone: Start: 07-18-8352Ohwedw follow up visit related to original Stefani Pereira Work Phone: [phone]-Vfyng [facility] DO Work Phone: Start: 07-31-2021 End: 38-54-0866Uhhoxqg encounter procedure Anupamlamine Pereira Work Phone: [facility]-[place] COVID TestingStart: 83-81-1459ACXBGMjgumx E Braun Work Phone: [phone]-Hmtvd [facility] 3 DO Work Phone: Start: 07-18-2021 End: 87-00-4771Zlmnbbv encounter procedureMD Anupam Randall Work Phone: [facility]-[place] SwabStart: 88-05-4358AldpgyqYtpzns E Braun Work Phone: [phone]-Fbghy [facility] [address] DO Work Phone: Start: 07-04-2021 End: 30-86-4665Ebgmsfj encounter procedureMD Anupam Pereira Work Phone: [facility]-Pacemaker CheckStart: 08-35-9204SFTBMHiykdg E Braun Work Phone: [phone]-Bldxl [facility] [address] DO Work Phone: Start: 44-08-1572Bw Layton Pereira Work Phone: [phone]-Lhgfy [facility] [address] DO Work Phone: Start: 07-01-2017 End: 87-33-8588AfgfetwjjtIfpvis V HampoleFacility:[facility]ETHANYPatient encounter status Anupam Pereira Work Phone: [phone]-Twkga [facility] [address] DO Work Phone: End: 55-07-0259Ohffexk encounter statusAnupam Pereira Work Phone: [phone]-Mtwzh [facility] DO Work Phone: Procedures DateProcedureProcedure DetailPerforming ClinicianStart: 10-88-1695UGD of right wristAnupam Pereira MD Work Phone: Start: 48-04-1369MZ pre/post mri xrJay Pereira MD Work Phone: Start: 36-19-6182Pesbtg eval implantable in person multi lead Nadiya Mayes MD Work Phone: Start: 95-34-6344Haqqs metabolic 2000 panel - Serum or PlasmaMARCIA BRAUNStart: 95-02-7739Ijn routine ecg w/least 12 lds w/i&rKmelanie Mayes MD Work Phone: Start: 25-36-9084QWPI Antigen (LFIA)MD Anupam Pereira Work Phone: Start: 18-47-3878Dzqrrnyjz mammographyRossya Randall Other Insertion of pulse generator of implantable cardioverter defibrillatorRossya E Randall Work Phone: Ligation of fallopian tubeAnupam E Randall Work Phone: Total colonoscopyJulianacia E Randall Work Phone: Comment on above:05May2008; Plan of Treatment DateCare ActivityDetailAuthorStart: 85-82-1870LVgO/Tdap/Td Vaccines (2 - Td or Tdap)DTaP/Tdap/Td Vaccines (2 - Td or Tdap)[facility] Start: 05-18-2025 End: 90-74-5432Dhwitqo encounter iawamqtmb55/14/2026 10:10 AM EST Office Visit [address] [place] [address] Lupe Rosado MD [address] [place] [address] 2, [place] [address] [place] [address] [facility]: 10-13-5125Aiopgahez vaccinationInfluenza Vaccine (Season Ended)[facility]Start: 10-06-2024 End: 48-99-6379Rbdmpay encounter dszzneate81/04/2025 9:40 AM EDT Office Visit [address] [place] [address] Lupe Rosado MD [address] [place] [address] 2, [address] [place] [address] [facility] Centerart: 90-99-1983Rgbusvdbbs measurementCreatinine LevelCleveland Clinic [facility]: 88-49-8600Mmdarjnbt measurement Potassium [facility]: 37-56-0959HqxyemegkCleveland Clinic Marymount Hospitaltart: 06-10-2024 End: 20-86-0225Swqpmea encounter exsallmkn89/06/2025 10:30 AM EST Office Visit [facility] [address] [facility] [address] [place] [address] Lupe Rosado MD [address], [address] [place] [address] [facility]: 05-20-2024 End: 79-54-5601Dxrql metabolic 2000 panel - Serum or PlasmaBasic Metabolic Panel Lab Routine Cardiomyopathy, unspecified type (Multi) Chronic systolic congesti ve heart failure (Multi) Expected: 05/20/2024 (Approximate), Expires: 11/17/2024 [facility] Service Area Work Phone: Comment on above:Expected: 05/20/2024 (Approximate), Expires: 11/17/2024Start: 04-06-2024 End: 45-06-9237Zqblcrt encounter darnffylo55/03/2024 11:00 AM EST Office Visit [facility] [address] [facility] [address] [place] [address] Daphne Mayes MD [address] [facility] [address], [address] [place] [address] [facility] Start: 02-28-2024 End: 45-78-0074Owvlbiw Device Check - In ClinicCardiac Device Check - In Clinic Implantable Cardiac Device Routine ICD (implantable cardioverter-defibrillator) in place Expected: 02/28/2024 (Approximate), Expires: 08/28/2024[facility] Service Area Work Phone: Comment on above:Expected: 02/28/2024 (Approximate), Expires: 08/28/2024Start: 02-20-2024 End: 77-78-1961Rufmlst encounter procedureSurgery Center of Southwest Kansastart: 65-93-8352QYFIH-19 Vaccine ( season)COVID-19 Vaccine ( season)[facility]: 41-02-8232Cfvlntnai vaccination [facility]: 84-90-2318AhphdpbbdihhflznDpcjfdtafpmilm [facility]: 11-18-2023 End: 01-22-8671Cpcbazu encounter hscifszde86/16/2024 10:40 AM EDT Office Visit [address] [place] [address] Lupe Rosado MD [address] [facility] 2, [address] [place] [address] [facility]: 08-29-2023 End: 70-37-3300Qofybcj encounter wuoulhayz39/26/2024 10:20 AM EDT Office Visit [facility] [address] [facility] [address] [place] [address] Daphne Mayes MD [address] [facility] [address], [address] [place] [address] [facility] Start: 44-25-4758ASI, Provider: Lupe Rosado, Status: Pen, Time: 11:00 AMFUV, Provider: Lupe Rosado, Status: Pen, Time: 11:00 AM[facility] [place] 250 DO Work Phone: Start: 04-17-2023 End: 57-13-7497Vfafnvz encounter klqvaiils09/14/2023 11:00 AM EST Office Visit [address] [place] [address] Lupe Rosado MD [address] [facility] 2, [address] [place] [address] [facility]: 03-11-2023 End: 04-05-6067Jvjan metabolic 2000 panel - Serum or PlasmaBasic metabolic panel Lab Routine Chronic systolic congestive heart failure (CMS/HCC) Expected: 11/2022 (Approximate), Expires: 02/26/2024[facility] Service Area Work Phone: Comment on above:Expected: 03/11/2023 (Approximate), Expires: 02/26/2024Start: 84-29-5514IAI, Provider: Daphne Mayes, Status: Pen, Time: 2:00 PMFUV, Provider: Daphne Mayes, Status: Pen, Time: 2:[address] [place] 250 DO Work Phone: Start: 48-09-5306Jfftwil encounter procedure FUVPACERENÉ, Provider: [facility], Status: Pen, Time: 1:00 [facility] 250 DO Work Phone: Start: 62-71-3523FTDTI-19 Vaccine ( season) COVID-19 Vaccine ( season)[facility]: 27-04-9904Wnuzhnqdo vaccinationInfluenza Vaccine (#1)[facility]: 43-54-1536UFYI, Provider: KENDY HHVI ULTRASOUND 01,[id number], Status: Pen, Time: 10:45 AMECHO, Provider: KENDY [facility] ULTRASOUND 01,[id number], Status: Pen, Time: 10:45 [facility] 250 DO Work Phone: Start: 93-45-8101CAH, Provider: Lupe Rosado, Status: Pen, Time: 10:40 AMFUV, Provider: Lupe Rosado, Status: Pen, Time: 10:40 AMMPNew Prague Hospitalusky 250 DO Work Phone: Start: 87-77-2600Loepvryics measurementCreatinine LevelCleveland Clinic [facility]: 62-69-5386Vrwsmbgaw measurement Potassium LevelCleveland Clinic Hillcrest Hospital: 46-76-5965UMCM, Provider: KENDY [facility]VI ULTRASOUND 01,[id number], Status: Pen, Time: 9:45 AMECH, Provider: KENDY [facility] ULTRASOUND 01,[id number], Status: Pen, Time: 9:45 AM [facility] Work Phone: start: 56-97-0161GVQB, Provider: KENDY HHVI ULTRASOUND 01,[id number], Status: Pen, Time: 2:30 PMECHO, Provider: KENDY [facility] ULTRASOUND 01,[id number], Status: Pen, Time: 2:30 PMMP-[facility] [place] 250 DO Work Phone: Start: 58-61-7922XHB, Provider: Lupe Rosado, Status: Pen, Time: 11:10 AMFUV, Provider: Lupe Rosado, Status: Pen, Time: 11:10 AM[facility] 250 DO Work Phone: Start: 19-08-5792XEG, Provider: Daphne Mayes, Status: Pen, Time: 3:20 PMFUV, Provider: Daphne Mayes, Status: Pen, Time: 3:20 PM[facility] 250 DO Work Phone: Start: 29-76-7565Qrldkcp encounter procedure FUVPACEMKR, Provider: [facility],EMCPACEMKR, Status: Pen, Time: 2:20 PM[facility] Work Phone: Start: 09-34-2353LBZYNRZY, Provider: PRABHJOT WALDRON AEROSPACE MANAGER 1,[id number], Status: Pen, Time: 2:30 PMNURSEVST, Provider: PRABHJOT WALDRON AEROSPACE MANAGER 1,[id number], Status: Pen, Time: 2:30 PM[facility] 250 DO Work Phone: start: 72-35-0270KKZW, Provider: KENDY HHVI ULTRASOUND 01,[id number], Status: Pen, Time: 1:30 PMECHO, Provider: KENDY HHVI ULTRASOUND 01,[id number], Status: Pen, Time: 1:30 PM[facility] 250 DO Work Phone: Start: 52-26-3749BVM, Provider: Lupe Rosado, Status: Pen, Time: 1:30 PMFUV, Provider: Lupe Rosado, Status: Pen, Time: 1:30 [address] [facility] 320 DO Work Phone: Start: 81-96-5930NXF, Provider: Daphne Mayes, Status: Pen, Time: 2:20 PMFUV, Provider: Daphne Mayes, Status: Pen, Time: 2:20 PMSt[address] [facility]eria 320 DO Work Phone: start: 61-38-6154Rhfcifa encounter procedure FUVPACEMKR, Provider: [facility],EMCPACEMKR, Status: Pen, Time: 1:20 [facility] 320 DO Work Phone: Start: 85-74-7909IQW CHANGE, Provider: [facility] SANDBLASTER 4,[id number], Status: Pen, Time: 12:30 PMICD CHANGE, Provider: [facility]ONE SANDBLASTER 4,[id number], Status: Pen, Time: 12:30 [facility]MEl[facility] 3 DO Work Phone: Start: 15-24-4470KHVGLRJ, Provider: Daphne Mayes, Status: Pen, Time: 11:00 [facility], Provider: Daphne Mayes, Status: Pen, Time: 11:00 [facility] 3 DO Work Phone: Start: 54-85-2066ARD CHANGE, Provider: [facility] STONE SANDBLASTER 4,[id number], Status: Pen, Time: 2:00 PMICD CHANGE, Provider: [facility] SAND[facility]LASTER 4,[id number], Status: Pen, Time: 2:00 PM[facility] [facility] 320 DO Work Phone: Start: 03-07-7761OLOPRYK, Provider: Daphne Mayes, Status: Pen, Time: 11:00 [facility], Provider: Daphne Mayes, Status: Pen, Time: 11:00 [facility] [address] DO Work Phone: Start: 37-26-6995DDI, Provider: Dpahne Mayes, Status: Pen, Time: 8:40 AMFUV, Provider: Daphne Mayes, Status: Pen, Time: 8:40 AM[facility] 320 DO Work Phone: Start: 03-29-8370Fejdbaj encounter procedure FUVPACEMMARIANO, Provider: [facility],EMCPGORDY, Status: Pen, Time: 7:40 AMHigh[facility] 320 DO Work Phone: Start: 01-25-1594IFG High Risk: (Elderly (60+) or Population) (1 - Risk 60-74 years 1-dose series)RSV High Risk: (Elderly (60+) or Population) (1 - Risk 60-74 years 1-dose series)[facility]: 46-26-9892QAN patients and/or patients aged 60+ years (1 - 1-dose 60+ series)RSV patients and/or patients aged 60+ years (1 - 1-dose 60+ series)[facility]: 44-89-5190Aratyq Vaccines (1 of 2)Zoster Vaccines (1 of 2)[facility]: 03-27-8658Kzwkbuwhk for malignant neoplasm of breastMammogram [facility]: 67-22-2576BQcI/Tdap/Td Vaccines (1 - Tdap)DTaP/Tdap/Td Vaccines (1 - Tdap)[facility]: 98-06-6445Ddckijocanck vaccinationPneumococcal Vaccine (1 of 2 - PCV)[facility]: 37-38-8405Mpirurqk mellitus screeningDiabetes ScreeningUnTrumbull Regional Medical Center: 51-56-0050Eudyugsas C screening Hepatitis C ScreeningC[facility] Clinic Hill[facility] Hospital: 1961 Pneumococcal Vaccine: 65+ Years (1 - PCV)Pneumococcal Vaccine: 65+ Years (1 - PCV)[facility]: 35-65-3367Obrcsnibgxvs Vaccine: 65+ Years (1 of 2 - PCV)Pneumococcal Vaccine: 65+ Years (1 of 2 - PCV)[facility]: 59-86-2600NFNIB-19 Vaccine (#1)COVID-19 Vaccine (#1)[facility]: 63-39-4123Ygkxn panelLipid Panel [facility]: 05-31-1955Medicare Annual Wellness Visit Medicare Annual Wellness Visit (AWV)[facility]: 95-53-5611Skdacoxik for malignant neoplasm of colonC[facility] Clinic [facility]: 75-27-6876Rbhvxwluo for osteoporosisBone Density ScanSamaritan Hospital End: 07-65-4683Durpofy Device Check - RemoteCardiac Device Check - Remote Implantable Cardiac Device Routine ICD (implantable cardioverter-defibrillator) in place 52 Occurrences starting 08/29/2023 until 02/28/2024[facility] Work Phone: Comment on above:52 Occurrences starting 08/29/2023 until 02/28/2024atient EducationLow back pain in adultsPromedica Flower Hospital Work Phone: Urine [facility] Immunizations Immunization DateImmunizationNotesCare UbyxgtllDghromql78-85-7901nkajkga toxoid, reduced diphtheria toxoid, and acellular pertussis vaccine, Lexus Rosado MD Work Phone: [facility] Payers DatePayer CategoryPayerPolicy [id number] 2024Self-pay [id number] Eligibility Medicare/Medicaid Organization [id number] Health InsuranceUNITED HEALTHCARE DUAL COMPLETE UNITED HEALTHCARE DUAL COMPLETE [id number] 2022-Present P Tamara Dailey [address] [place] [address] [id number] [id number] [id number] Health [id number] Health [id number] [id number] [id number] 2..1.996715.3.579.2.28577-95-7362Zmwxyxi5256355 2..1.429127.3.579.2.58401-34-5182Yrmrfwc8422546 2..1.550715.3.579.2.21069-65-9958Ryezisq7529861 2.0.1.110587.3.579.2.39590-10-0646Nilurgg9322686 2.0.1.229725.3.579.2.44788-78-3152Azijohh6768225 2.0.1.386623.3.579.2.75730-38-9359Gjezdex5167429 2.0.1.944045.3.579.2.38270-90-5848Ldqqfwn7744143 2.16.840.1.140880.3.579.2.28246-17-2874Ymwqchf5846884 2.16.840.1.262321.3.579.2.82908-29-0855Akhcnkn9014934 2.16.840.1.743144.3.579.2.05368-12-3196Iyawitj5112686 2.16.840.1.062247.3.579.2.74573-81-5963Pjkwakn2319448 2.16.840.1.932255.3.579.2.64741-75-6402Ijebogx8912801 2.16840.1.240049.3.579.2.00228-07-3218Kpjwrmg29289714 2.16840.1.017748.3.579.2.571148-12-5368Cohjugd31586636 2.16840.1.335433.3.579.2.130747-27-5637Yloilyb05662082 2.840.1.905671.3.579.2.455182-22-1145Njcwbii205357197 2.16840.1.483069.3.579.2.75929-97-1073Pphevbh789346354 2.16840.1.573839.3.579.2.27475-07-1904Phirxog664226367 2.16840.1.678450.3.579.2.94775-81-9251Ncewdue292058885 2.16840.1.078204.3.579.2.14483-93-9005Kbvmfbs393959873 2.16.840.1.452868.3.579.2.16649-68-7742Shhgman948517067 2.16840.1.982070.3.579.2.12817-24-5480Mxjyttz63648160 2..1.448643.3.579.2.459388-27-1448Itldmyx87771096 2..1.185971.3.579.2.721505-42-2527Beoggcd101928570 2..1.064792.3.579.2.274030-73-0297Xowpiox936822088 2..1.971912.3.579.2.078059-57-3091Ryckcgw205504008 2..1.972960.3.579.2.785087-29-7176Pdbpguf95117663 2..1.673[id number] Health [id number] 2..1.9[id number] ..1.519523.3.579.2.531 [id number] 2..1.9[id number] 2..1.2[id number] 2..1.598957.3.579.2.531 [id number] 2..1.433101.3.579.2.531 Social History DateTypeDetailFacilityStart: 10-09-2021 End: 11-57-6441Nyupnpoe useCaffeine useUnSouthview Medical CenterComment on above:1 1/2 daily (Pop);Start: 75-44-9652Nmv [facility] 10-09[facility]2021 End: 76-65-4378Vfz [facility] At [facility]Start: 02-25-2023 End: 27-47-6648Fuokleh smoking status NHISNever smoked tobaccoUnSouthview Medical Center Work Phone: Start: 92-99-5262Tjskttg use and exposureSmokeless tobacco non-userUnSouthview Medical Center Work Phone: Start: 63-39-4035Ktd [facility]Not [facility] Work Phone: Start: 02-15-2023 End: 72-24-9224Afxeaqlt to SARS-CoV-2 (event)Not sureUnSouthview Medical CenterStart: 08-29-2023 End: 65-01-9790Metfytjoh beverage intakeLifetime non-drinker (finding)[facility] Work Phone: Start: 05-31-2024 End: 90-50-6229DbeVcrxqn (finding)[facility] Functional Status WwdlZgzmhezqgySwnnqlMxkbqrtn97-30-3372YQI-6HDI5GSHDRY Moderate (10-14)[facility] [address] DO Work Phone: Clinical Notes 08-02-2021 to 12-31-2024 Note Date & UownEddrKdyeagax41-93-0620 Evaluation note* Diagnosis Onset Date Resolution Status Admit Date Bronchitis acuteAugust 2024 1:03pmHeart failureacuteAugust 2024 1:03pm Costovertebral (angle) tenderness, bilateralacuteOctober 2024 10:02amLumbar painacuteOctober 2024 10:02amUrinary frequencyacuteOctober 2024 10:02am [facility] Work Phone: 1(880) 348-560406-04-2025 History of Present illness Narrative* Lupe Rosado [...] AICD discharge. Continue to followwith electrophysiology at [facility]. Her weight remains above target [...] AICD, device is assessed by electrophysiology at [facility], last device check September 10, 2024 was available for review, it demonstrated no abnormalities and the data were sharedwith the patient 3-status post cardiac catheterization at [facility] was normal, this was back in 2017 4-obstructive sleep apnea supposed to be on [...] exam, discussion and plan. documented in this [facility] Work Phone: 1([phone]) 547-696206-04-2025 Instructions* Patient Instructions* Scarlet Loomis LPN - [...] Same medications Follow up documented in this [facility] Work Phone: 1(734) 391-289302-10-2025 Evaluation note* Diagnosis Onset Date Resolution Status Admit Date Right wrist fracture acuteFebruary 2024 1:11pmAbnormal weight gainacuteMarch 2024 8:41am DepressionacuteMarch 2024 8:41amHeart failureacuteMarch 2024 8:41am Impaired fasting glucoseacuteMarch 2024 8:41amObesity, Class II, BMI 35-39.9acuteMarch 2024 8:41amObstructive sleep apneaacuteMarch 2024 8:41amOsteoarthritisacuteMarch 2024 8:41am [facility] Work Phone: 1([phone]) 938-740702-06-2025 History of Present illness Narrative* Lupe Rosado [...] AICD, device is assessed by electrophysiology at [facility] 3-cardiac catheterization 8 years ago at [facility] was normal 4-sleep apnea supposed [...] exam, discussion and plan. documented in this [facility] Work Phone: 1([phone]) 116-618002-06-2025 Instructions* Patient Instructions* Jyotsna Thayer LPN - [...] through Care Everywhere. * Heart Healthy Diet (Lao) documented in this [facility] Work Phone: [phone]) [phone] Evaluation note* Diagnosis Onset Date Resolution Status Admit Date Depression acuteJanuary 2024 11:18amHeart failureacuteJanuary 2024 11:18am Impaired fasting glucoseacuteJanuary 2024 11:18amObesity, Class II, BMI 35-39.9acuteJanuary 2024 11:18amObstructive sleep apneaacuteJanuary 2024 11:18amOsteoarthritisacuteJanuary 2024 11:18am [facility] Work Phone: 1([phone]) 431-928101-27-2025 Evaluation note* Diagnosis Onset Date Resolution Status Admit Date Depression acuteJanuary 2024 11:18amHeart failureacuteJanuary 2024 11:18am Impaired fasting glucoseacuteJanuary 2024 11:18amObesity, Class II, BMI 35-39.9acuteJanuary 2024 11:18amObstructive sleep apneaacuteJanuary 2024 11:18amOsteoarthritisacuteJanuary 2024 11:18amRight wrist fracture acuteFebruary 2024 1:11pm [facility] Work Phone: [phone]) [phone] Evaluation note* Diagnosis Onset Date Resolution Status Admit Date Depression acuteJanuary 2024 11:18amHeart failureacuteJanuary 2024 11:18am Impaired fasting glucoseacuteJanuary 2024 11:18amObesity, Class II, BMI 35-39.9acuteJanuary 2024 11:18amObstructive sleep apneaacuteJanuary 2024 11:18amOsteoarthritisacuteJanuary 2024 11:18amRight wrist fracture acuteFebruary 2024 1:11pmAbnormal weight gainacuteMarch 2024 8:41am DepressionacuteMarch 2024 8:41amHeart failureacuteMarch 2024 8:41am Impaired fasting glucoseacuteMarch 2024 8:41amObesity, Class II, BMI 35-39.9acuteMarch 2024 8:41amObstructive sleep apneaacuteMarch 2024 8:41amOsteoarthritisacuteMarch 2024 8:41am [facility] Work Phone: 1([phone]) 162-494310-29-2024 Evaluation note* Diagnosis Onset Date Resolution Status Admit Date Depression acuteOctober 2023 10:47am [facility] Work Phone: 1([phone]) 211-100807-16-2024 History of Present illness Narrative* Lupe Rosado [...] AICD, device is assessed by electrophysiology at [facility] 3-cardiac catheterization 8 years ago at [facility] was normal 4-sleep apnea supposed [...] Attestation By signing my name below, IScarlet LPN , Sherinibe attest that this documentation [...] exam, discussion and plan. [facility] 1(668) 318-680407-16-2024 Instructions* Patient Instructions* Scarlet Loomis LPN - [...] 6 months with lab [facility]: 1([phone]) 484-833504-26-2024 History of Present illness Narrative* Daphne Mayes [...] dictation application being used. [facility] Work [facility]: 1([phone]) 491-370904-26-2024 Instructions* Patient Instructions* Anel Samano RN - [...] OF DR. DAPHNE MAYES MD, FACC, FACP, RS [facility] Work Phone: 1([phone]) 794-384001-24-2024 Evaluation note* Encounter Date Diagnosis Assessment Notes Treatment Notes Treatment Clinical Notes 24 Ki, 2024 Influenza A (ICD-10 - J10.1) resolved. discussed symptomatic care May,cute bronchitis, unspecified organism (ICD-10 - J20.9)No further antibiotics or steroids indicated. Recommened conservative measures for help w laryngitis. May,ardiomyopathy as manifestation of underlying disease (ICD-10 - I43) Pt states she has appt today w her internet project manager. [employer] Other 01-08-2024 History of Present illness Narrative* Lupe Rosado MD - 05/12/2023 1:30 PM EST Subjective Nya Bell is a 67 y.o. female Chief Complaint Follow-up HPI Patient is in the office for follow-up for the problems noted below. She was in [place] recently and had flu syndrome which left her with significant bronchitis that was noted during today's visit. Her lab data from [place] was reviewed, cardiac enzymes were normal other [...] AICD, device is assessed by electrophysiology at [facility] 3-cardiac catheterization 8 years ago at [facility] was normal 4-sleep apnea supposed [...] my name below, Africa Nur LPN , Rafal attest that this documentation has been prepared under the direction and in the presence of Lupe Rosado MD. documented in this [facility] Work Phone: [phone]) 325-263901-08-2024 Instructions* Patient Instructions* Africa Noland LPN - [...] follow up per routine [facility]: [phone]) [phone] History of Present illness Narrative* Lynn Jorgensen, NATE-RETAIL PERFORMANCE COACH - 02/25/2023 10:00 AM EDT CARDIOLOGY OFFICE VISIT CHIEF COMPLAINT Chief Complaint Patient presents with Device Check Routine check up HISTORY OF PRESENT ILLNESS HPI The patient is a 67-year-old female who is followed for nonischemic cardiomyopathy with a left ventricular ejection fraction improved to 60 to 65% per 2D echocardiogram dated November 22, 2022, [place] Heart Association class II- III, stage C [...] per 2D echocardiogram dated November 22, 2022, [place] Heart Association class III, stage C heart failure. 2. Upgrade to an AV biventricular ICD on August 02, 2021 (Medtronic cobalt XT HF Quad DENTAL LABORATORY MANAGER-D). Initial implant on January 25, 2015. 3. Valvular heart disease consisting of mild MR per 2D echocardiogram dated November 22, 2022. 4. Left heart catheterization in 2014 revealing normal coronaries at [facility]. 5. Obstructive sleep apnea, noncompliant [...] furosemide. 2. Obtain ICD checks per the [facility] device clinic as scheduled. Patient was instructed to obtain an in clinic device check at [facility] approximately 2 weeks prior to the office [...] to prepare this document. documented in this [facility] Work Phone: [phone]) 320-108610-24-2023 Instructions* Patient Instructions* ISAI Mora - 02/25/2023 10:00 AM EDT When taking the lasix, increase dietary potassium intake (orange juice, bananas, skin on potatoes) documented in this [facility] Work Phone: [phone] Evaluation note* Encounter Date Diagnosis Assessment Notes Treatment Notes Treatment Clinical Notes Jan, Bronchitis (ICD-10 - J40) Discussed diagnosis with patient. Patient to take antibiotic daily with food as prescribed. Finish entire course of antibiotic. Proair inhaler sent today for patient to use PRN cough/wheezing/shortness of breath. Hsne-jdl-gjhjrja antipyretics as needed. Warning signs and symptoms reviewed with patient today. Patient to go immediately to the ER should she experience any of these. Patient to notifyoffice should her symptoms persist and not improve. Patient verbalizes understanding and agrees to treatment plan. [employer] Other 08-29-2023 Evaluation note* Encounter Date Diagnosis Assessment Notes Treatment Notes Treatment Clinical Notes Dec, Bronchitis (ICD-10 - J40) Discussed diagnosis with patient. Finish entire course of antibiotic. Proair inhaler sent today forpatient to use PRN cough/wheezing/shortness of breath. Tessalon Pearles ordered to take as needed for cough. Increase fluids and rest. Yiwq-eaf-ovicfjm antipyretics as needed. Warning signs and symptoms reviewed with patient today. Patient to go immediately to the ER should she experience any of these. Patient to notify office should her symptoms persist and not improve. Patient verbalizes understanding and agrees to treatment plan. [employer] Other 08-22-2023 Evaluation note* Encounter Date Diagnosis Assessment Notes Treatment Notes Treatment Clinical Notes Dec, Acute pain of right shoulder (IC D-10 - M25.511) Check xray. Add meds for pain relief and muscle relaxation. Will call pt w xray results. Dec,hest congestion (ICD-10 - R09.89)Start w CXR and assess for pneumonia - will base treatment on CXR results later today. [employer] Other 02-16-2023 NoteCONSULTATION CONSULTATION DATE: 06/20/2022 HISTORY [...] be followed up in the office thereafter.[id number] NoteCONSULTATION CONSULTATION DATE: 05/23/2022 HISTORY OF PRESENT [...] be followed up in the clinic thereafter.[id number] Evaluation note* Encounter Date Diagnosis Assessment Notes Treatment Notes Treatment Clinical Notes May, Vitamin D deficiency (ICD-10 - E 55.9) [employer] Other 01-17-2023 Evaluation note* Encounter Date Diagnosis Assessment Notes Treatment Notes Treatment Clinical Notes May, Anemia, unspecified type (ICD-10 - D64.9) significant pallor and cyanosis of nails. History of anemia - will order more specific labs to find a source May,Vitamin D deficiency (ICD-10 - E55.9)Initial assessment. Feels she struggles in winter months - needs lab to confirm problem of vit D deficiency May,ardiomyopathy as manifestation of underlying disease (ICD-10 - I43) Reviewed notes from her specialist [employer] Other 12-06-2022 NoteCONSULTATION CONSULTATION DATE: 04/09/2022 CHIEF [...] was encouraged to follow up with the internet project manager with regards to her pacemaker. The patient is looking to schedule herself with regards to a physical and blood work by Dr. Pereira. CC: Anupam Pereira M.D.[id number] NotePROCEDURE: XR FINGER MIN 2 VIEWS COMPARISON: None. HISTORY: Acquired deformity of right finger FINDINGS: BONES:Persistent flexion of the fourth finger. No acute fracture or dislocation SOFT TISSUES:Soft tissue swelling EFFUSION:None visible. OTHER: Negative. IMPRESSION: Soft tissue swelling, no acute fracture Electronically authenticated by: CECY CHRISTIAN Date: 2022-02-05 07:14[facility]03-31-2022 NoteElectrophysiology Procedure TestingPlease click on the link to view the study images (Normal)[facility] 250 DO Work Phone: 1([phone]) 316-512703-31-2022 NoteElectrophysiology Procedure Testing Please click on the link to view the study images (Normal)[facility] 250 DO Work Phone: 1([phone]) 710-633303-31-2022 NoteElectrophysiology Procedure Testing Please click on the link to view the study images (Normal)[facility] 3 DO Work Phone: [phone]) [phone] NoteElectrophysiology Procedure Testing Please click on the link to view the study images (Normal)[facility] 320 DO Work Phone: Chize complaint+Reason for visit Narrative* Chief Complaint headache, back pain, sore throat, ear pain Memory ConcernsReason for VisitCOVID-19 [facility] Work Phone: Evaluation noteNo assessment information available [facility] Work Phone: Evaluation noteNo InformationNohca midwest division [employer] Other Evaluation note* Diagnosis ICD (implantable cardioverter-defibrillator) in place- Primary Morbid obesity (CMS/HCC) Morbid obesity Chronic systolic congestive heart failure (CMS/HCC) Cardiomyopathy, unspecified type (CMS/HCC) Dyspnea on exertion Other dyspnea and respiratory abnormality Obstructive sleep apnea syndrome in adult Other fatigue documented in this encounter [facility] Work Phone: Evaluation note* Diagnosis ICD [...] discuss treatment options documented in this encounter [facility] Work Phone: Evaluation note* Diagnosis Cardiomyopathy, unspecified type (CMS/HCC)- Primary ICD (implantable cardioverter-defibrillator) in place Obstructive sleep apnea syndrome in adult Class 2 obesity without serious comorbidity with body mass index (BMI) of 37.0 to 37.9 in adult, unspecified obesity type documented in this encounter [facility] Work Phone: Evaluation note* Diagnosis ICD (implantable cardioverter-defibrillator) in place documented in this encounter [facility] Work Phone: Evaluation note* Diagnosis Onset Date Resolution Status COVID-19 acute [facility] Work Phone: Evaluation note* Diagnosis Cardiomyopathy, unspecified type (Multi) Chronic systolic congestive heart failure (Multi) ICD (implantable cardioverter-defibrillator) in place Obstructive sleep apnea syndrome in adult Fatigue, unspecified type Never smoked cigarettes Class 2 obesity without serious comorbidity with body mass index (BMI) of 37.0 to 37.9 in adult, unspecified obesity type documented in this encounter [facility] Work Phone: Evaluation note* Diagnosis ICD (implantable cardioverter-defibrillator) in place- Primary Chronic systolic congestive heart failure Fatigue, unspecified type Obstructive sleep apnea syndrome in adult Never smoked cigarettes BMI 38.0-38.9,adult Class 2 obesity documented in this encounter [facility] Work Phone: Evaluation note* Diagnosis Nonischemic cardiomyopathy (Multi)- Primary Other primary cardiomyopathies ICD (implantable cardioverter-defibrillator) in place Obstructive sleep apnea syndrome in adult Never smoked cigarettes BMI 38.0-38.9,adult Class 2 obesity Other fatigue documented in this encounter [facility] Work Phone: History general Narrative - Reported* Type Description Date Medical History Gastroesophageal reflux disease without esophagitis Medical HistoryLumbar painMedical HistoryTobacco useMedical HistoryDeformity of finger of right handMedical HistoryAnxiety, generalizedMedical HistoryGouty arthritisMedical HistoryFatigueMedical HistoryChest wall painMedical History Urinary tract infectionMedical HistoryUrinary frequencyMedical HistoryRUQ pain Medical HistoryElevated fasting glucoseMedical HistoryBronchitisMedical History Chronic gout, unspecified, without tophus (tophi)Medical HistoryDepression Medical HistoryRight shoulder painMedical HistoryOsteoarthritisMedical History Dyspnea on minimal exertionMedical HistorySubsternal chest painMedical History Essential hypertensionMedical HistoryEpistaxis, recurrentMedical HistoryAdhesive capsulitis of left shoulderMedical HistoryLeft shoulder painSurgical History pacemaker/[id number] HistoryNASAL OVUHGXE64/2020Surgical History CARDIAC CATH/2013Surgical HistoryLUMBAR NEVER XGNRZACT74/2016Hospitalization HistorySee Sx Hx [employer] Other History general Narrative - Reported* Type Description Date Medical History Gastroesophageal reflux disease without esophagitis Medical HistoryLumbar painMedical HistoryTobacco useMedical HistoryDeformity of finger of right handMedical HistoryAnxiety, generalizedMedical HistoryGouty arthritisMedical HistoryFatigueMedical HistoryChest wall painMedical History Urinary tract infectionMedical HistoryUrinary frequencyMedical HistoryRUQ pain Medical HistoryElevated fasting glucoseMedical HistoryBronchitisMedical History Chronic gout, unspecified, without tophus (tophi)Medical HistoryDepression Medical HistoryRight shoulder painMedical HistoryOsteoarthritisMedical History Dyspnea on minimal exertionMedical HistorySubsternal chest painMedical History Essential hypertensionMedical HistoryEpistaxis, recurrentMedical HistoryAdhesive capsulitis of left shoulderMedical HistoryLeft shoulder painSurgical History pacemaker/[id number] HistoryNASAL RTDIEMS65/2020Surgical History CARDIAC CATH06/2013Surgical HistoryLUMBAR NEVER TTNJYZRV11/2017Hospitalization HistorySee Sx HxHospitalization History[facility] [employer] Other Reason for referral (narrative)* Consultation (Routine) - AuthorizedSpecialtyDiagnoses / ProceduresReferred By Contact Referred To ContactCardiology Diagnoses ICD (implantable cardioverter-defibrillator) in place Procedures Follow Up In Cardiology Lynn Jorgensen APRN-CNP [address] [place] [address] Daphne Mayes MD [address] [place] [address] Referral IDStatusReasonStart DateExpiration DateVisits RequestedVisits [id number]/24/202310/23/202411 T [facility] Work Phone: Reason for referral (narrative)* Consultation (Routine) - AuthorizedSpecialtyDiagnoses / ProceduresReferred By Contact Referred To ContactCardiology Diagnoses Cardiomyopathy, unspecified type (CMS/HCC) Procedures Follow Up In Cardiology Lupe Rosado MD [address] [facility] 2, [address] [address] Lupe Rosado MD [address] [place] [address] 2, [facility] [address] [place] [address] Referral IDStatusReasonStart DateExpiration DateVisits RequestedVisits [id number]/8/20241/ [facility] Work Phone: Refurj for referral (narrative)* Consultation (Routine) - AuthorizedSpecialtyDiagnoses / ProceduresReferred By Contact Referred To ContactCardiology Diagnoses Chronic systolic congestive heart failure (Multi) Procedures Follow Up In Cardiology Lupe Rosado MD [address] [facility] [address], [address] [address] Lupe Rosado MD [address] [place] [address] [address], [address] [address] Referral IDStatusReasonStart DateExpiration DateVisits RequestedVisits [id number]/16/20247/16/202511 [facility] Work Phone: Reason for referral (narrative)No reason for referral information availablePromedica F[facility] Work Phone: Reason for visit Narrative* Imaging (Routine) - Pending ReviewSpecialtyDiagnoses / ProceduresReferred By ContactReferred To ContactCardiology Diagnoses ICD (implantable cardioverter-defibrillator) in place Procedures Cardiac Device Check - In Clinic Daphne Mayes MD [address] [facility] [address], [place] [address] [place] [address] Phone: tel: fax: Referral IDStatusRecriseldaStfernanda DateExpiration DateVisits RequestedVisits [id number] Review Perform Procedure 252 [facility] Work Phone: Summary Purpose Family History No Family History Records FoundUnknown Family Member Name Dates Details Family history of dementia: Mother(V17.2, Z81.8) Status:ActiveFamily history of diabetes mellitus: Mother, Father(V18.0, Z83.3) Status:ActiveFamily history of myocardial infarction: Father(V17.3, Z82.49) Status:Active Unknown Family Member Name Dates Details Family history of dementia: Mother(V17.2, Z81.8) Status:ActiveFamily history of diabetes mellitus: Mother, Father(V18.0, Z83.3) Status:ActiveFamily history of myocardial infarction: Father(V17.3, Z82.49) Status:Active Unknown Family Member Name Dates Details Family history of dementia: Mother(V17.2, Z81.8) Status:ActiveFamily history of diabetes mellitus: Mother, Father(V18.0, Z83.3) Status:ActiveFamily history of myocardial infarction: Father(V17.3, Z82.49) Status:Active Unknown Family Member Name Dates Details Family history of dementia: Mother(V17.2, Z81.8) Status:ActiveFamily history of diabetes mellitus: Mother, Father(V18.0, Z83.3) Status:ActiveFamily history of myocardial infarction: Father(V17.3, Z82.49) Status:Active Unknown Family Member Name Dates Details Family history of dementia: Mother(V17.2, Z81.8) Status:ActiveFamily history of diabetes mellitus: Mother, Father(V18.0, Z83.3) Status:ActiveFamily history of myocardial infarction: Father(V17.3, Z82.49) Status:Active Unknown Family Member Name Dates Details Family history of dementia: Mother(V17.2, Z81.8) Status:ActiveFamily history of diabetes mellitus: Mother, Father(V18.0, Z83.3) Status:ActiveFamily history of myocardial infarction: Father(V17.3, Z82.49) Status:Active Unknown Family Member Name Dates Details Family history of dementia: Mother(V17.2, Z81.8) Status:ActiveFamily history of diabetes mellitus: Mother, Father(V18.0, Z83.3) Status:ActiveFamily history of myocardial infarction: Father(V17.3, Z82.49) Status:Active Unknown Family Member Name Dates Details Family history of dementia: Mother(V17.2, Z81.8) Status:ActiveFamily history of diabetes mellitus: Mother, Father(V18.0, Z83.3) Status:ActiveFamily history of myocardial infarction: Father(V17.3, Z82.49) Status:Active Unknown Family Member Name Dates Details Family history of dementia: Mother(V17.2, Z81.8) Status:ActiveFamily history of diabetes mellitus: Mother, Father(V18.0, Z83.3) Status:ActiveFamily history of myocardial infarction: Father(V17.3, Z82.49) Status:Active Unknown Family Member Name Dates Details Family history of dementia: Mother(V17.2, Z81.8) Status:ActiveFamily history of diabetes mellitus: Mother, Father(V18.0, Z83.3) Status:ActiveFamily history of myocardial infarction: Father(V17.3, Z82.49) Status:Active Unknown Family Member Name Dates Details Family history of dementia: Mother(V17.2, Z81.8) Status:ActiveFamily history of diabetes mellitus: Mother, Father(V18.0, Z83.3) Status:ActiveFamily history of myocardial infarction: Father(V17.3, Z82.49) Status:Active Relationship Condition Age at Onset Recorded Date/T amparo father Unknown Heart diseaseUnknownDiabetes mellitusUnknownmotherDeceasedUnknown Relationship Condition Age at Onset Recorded Date/T amparo Not Specified Cerebrovascular accident (CVA) Unknown fatherDeceasedUnknownHeart diseaseUnknownDiabetes mellitusUnknownMyocardial infarctionUnknownmotherDeceasedUnknownpaternal grandfatherDeceasedUnknown paternal grandmotherDeceasedUnknownmaternal grandfatherMyocardial infarction UnknownDeceasedUnknownbrotherDiabetes mellitusUnknown Advance Directives No Advanced Directives Records Found Advance Directive Response Recorded Date/ Time Advance Directives No March 11, 2019 3:45pm Advance Directive Response Recorded Date/ Time Advance Directives No March 11, 2019 2:45pm Chief Complaint and Reason for Visit Chief Complaint defib machine issues i80.22 z95.810 z00.00 z95.810-rapid Chief Complaint defib machine issues Chief Complaint cardiomyopathy Chief Complaint [facility] Chief Complaint defib machine issues headache, back pain, sore throat, ear pain Chief Complaint headache, back pain, sore throat, ear pain Memory Concerns cardiomyopathy CC Adult Risk StratificationReason for VisitCOVID-19 Chief Complaint Admit Date Memory Concerns March 02, 2024 1 0:47am cardiomyopathy March 03, 2024 1 0:19am CC Adult Risk Stratification February 12:02pm [facility] May 31 11:18am Reason for Visit Admit Date Depression March 02, 2024 1 0:47am Chief Complaint Admit Date [facility] May 31 11:18am defib machine issues June 03, 2024 2:28pm Reason for Visit Admit Date Depression May 31, 2024 1 1:18am Heart failure May 31, 2024 1 1:18am Impaired fasting glucose May 31, 025 11:18am Obesity, Class II, BMI 35-39.9 May 062024 11:18am Obstructive sleep apnea May 31 11:18am Osteoarthritis May 31, 2024 1 1:18am Chief Complaint Admit Date [facility] May 31 11:18am defib machine issues June 03, 2024 2:28pm Amb Documentation June 08, 2024 1 :31pm [facility] ER f/u, broken wrist right June 14, 2024 1:11pm Chief Complaint Admit Date [facility] May 31 11:18am defib machine issues [...] 2024 8:4 1am Chief Complaint Admit Date [facility] May 31 11:18am defib machine issues June 03, 2024 2:28pm Amb Documentation June 08, 2024 1 :31pm [facility] ER f/u, broken wrist right June 14, 2024 1:11pm R73.01 I50.9 I48.91 M17.10 E66.812 F33.4 1 .July 12, 2024 2:11pm S52.591A August 03, 2024 7:37 am Chief Complaint Admit Date [facility] ER f/u, broken wrist right June [...] February 04, 2025 10 :02am Chief Complaint Admit Date Phlegm w Blood, Bloody Nose December 31, 2024 1:03pm Back Pain February 04, 2025 10 :02am cardiomyopathy March 10, 2025 9 :30am cardiomyopathy March 10, 2025 2 :10pm Chief Complaint Patient here S/P gen change. Done by Dr. Mayes at [facility] on 07/19/2021. Dr. Gaudencio Mendoza MD [...] AICD, device is assessed by electrophysiology at [facility], had recent battery change with no complications. * 3 cardiac catheterization 7 years ago at [facility] was normal * 4 extreme [...] AICD, device is assessed by electrophysiology at [facility], had recent battery change with no complications. * 3 cardiac catheterization 7 years ago at [facility] was normal * 4 extreme [...] AICD, device is assessed by electrophysiology at [facility], had recent battery change with no complications. * 3 cardiac catheterization 7 years ago at [facility] was normal * 4 extreme [...] AICD, device is assessed by electrophysiology at [facility] * 3 cardiac catheterization 7 years ago at [facility] was normal * 4 extreme [...] AICD, device is assessed by electrophysiology at [facility] * 3 cardiac catheterization 7 years ago at [facility] was normal * 4 extreme [...] scheduled. We will arrange for that at [facility]. Her weight is unchanged from previously [...] AICD, device is assessed by electrophysiology at [facility] * 3 cardiac catheterization 7 years ago at [facility] was normal * 4 fatigue of unknown etiology. Improved with increased activities * 5 sleep apnea supposed to be on CPAP machine, encouraged patient to follow-up with a sleep lab to adjust the device. * 6 severe obesity, recommended low-calorie diet and more regular exercise. Reason for Referral SpecialtyDiagnoses / ProceduresReferred By ContactReferred To ContactCardiology Diagnoses ICD (implantable cardioverter-defibrillator) in place Procedures Cardiac Device Check - Remote Daphne Mayes MD [address] [facility], [address] [address] Referral IDStatusReasonStart DateExpiration DateVisits RequestedVisits [id number] Review Perform Procedure [id number] / ProceduresReferred By ContactReferred To ContactCardiology Diagnoses ICD (implantable cardioverter-defibrillator) in place Procedures Cardiac Device Check - In Clinic Daphne Mayes MD [address] [facility], [address] [address] Referral IDStatusReasonStart DateExpiration DateVisits RequestedVisits [id number] Review Perform Procedure [id number] / ProceduresReferred By ContactReferred To Contact Diagnoses ICD (implantable cardioverter-defibrillator) in place Procedures ECG 12 lead (Clinic Performed) Daphne Mayes MD [address] [facility], [address] [address] Referral IDStatKisskissbankbank TechnologiesReLocishart DateExpiration DateVisits RequestedVisits [id number]/26/20244/26/202511 Additional Source Comments INFORMATION SOURCE (unrecogn ized section and content) DATE CREATED AUTHOR 10/24/2017 [facility] DATE CREATED AUTHOR AUTHOR'S ORGANIZ ATION 11/13/2018 [facility] DATE CREATED AUTHOR AUTHOR'S ORGANIZ ATION 08/02/2020 [facility] DATE CREATED AUTHOR AUTHOR'S ORGANIZ ATION 08/22/2022 [facility] DATE CREATED AUTHOR AUTHOR'S ORGANIZ ATION 10/14/2022 [facility] DATE CREATED AUTHOR AUTHOR'S ORGANIZ ATION 11/23/2022 [facility] DATE CREATED AUTHOR AUTHOR'S ORGANIZ ATION 12/10/2022 [facility] DATE CREATED AUTHOR AUTHOR'S ORGANIZ ATION 09/03/2023 [facility] DATE CREATED AUTHOR AUTHOR'S ORGANIZ ATION 03/05/2024 [facility] DATE CREATED AUTHOR AUTHOR'S ORGANIZ ATION 05/23/2024 [facility] DATE CREATED AUTHOR AUTHOR'S ORGANIZ ATION 10/07/2024 [facility] DATE CREATED AUTHOR AUTHOR'S ORGANIZ ATION 03/14/2025 [facility] Care Teams (unrecognized sec tion and content) Team Status: Active Member Role Status Dates Anupam Pereira MD Primary Care Provider Active Team Status: Active Member Role Status Dates Anupam Pereira MD Primary Care Provider Active Start: December 09, 2024 [facility] Rosado [facility] ProviderActiveStart: December 09, 2024 Chasity Harper MDAverona ProviderActiveStart: December 09, 2024 Team Status: Inactive Member Role Status Dates Anupam Pereira MD Primary Care Provide r, Attending Provider Active Start: June 14, 2024 End: June 14, 2024 Team Status: Inactive Member Role Status Dates Anupam Pereira MD Primary Care Provider Active Start: July 12, 2024 End: July 12, 2024Omar Navarro ProviderActiveStart: July 12, 2024 End: July 12, 2024 Team Status: Inactive Member Role Status Dates Anupam Pereira MD Primary Care Provider Active Start: July 26, 2024 End: July 26, 2024Omar Navarro ProviderActiveStart: July 26, 2024 End: July 26, 2024 Team Status: Inactive Member Role Status Dates Anupam Pereira MD Primary Care Provider Active Start: August 03, 2024 End: August 03, 2024Maren Sidhu ProviderActiveStart: August 03, 2024 End: August 03, 2024 Team Status: Active Member Role Status Dates Anupam Pereira MD Primary Care Provider Active Start: September 03, 2024 Lupe Rosado MDOther ProviderActiveStart: September 03, 2024 Chasity Harper , MDAttending ProviderActiveStart: September 03, 2024 Team Status: Inactive Member Role Status Dates Anupam Pereira MD Primary Care Provider Active Start: September 03, 2024 End: September 03, 2024Hachito Rosado , MDAttending ProviderActiveStart: September 03, 2024 End: September 03, 2024 Team Status: Active Member Role Status Dates Anupam Pereira MD Primary Care Provide r, Attending Provider Active Start: May 20, 2024 Team Status: Inactive Member Role Status Dates Anupam Pereira MD Primary Care Provider Active Start: May 31, 2024 End: May 31, 2024Rosemarie Lea , APRNAtteniqra ProviderActiveStart: May 31, 2024 End: May 31, 2024 Team Status: Inactive Member Role Status Dates Anupam Pereira MD Primary Care Provider Active Start: June 03, 2024 End: June 03, 2024Chasity Harper , MDAttending ProviderActiveStart: June 03, 2024 End: June 03, 2024 Team Status: Inactive Member Role Status Dates Anupam Pereira MD Primary Care Provider Active Start: December 22, 2023 End: December 22, 2023Chika Bee APRNAtteniqra ProviderActiveStart: December 22, 2023 End: December 22, 2023 Team Status: Inactive Member Role Status Dates Anupam Pereira MD Primary Care Provide r, Attending Provider Active Start: March 02, 2024 End: March 02, 2024 Team Status: Active Member Role Status Dates Anupam Pereira MD Primary Care Provider Active Start: December 02, 2023 Gaudencio Mendoza MDOther ProviderActiveStart: December 02, 2023 Chasity Harper , JERALDttending ProviderActiveStart: December 02, 2023 Team Status: Inactive Member Role Status Dates Anupam Pereira MD Primary Care Provider Active Fermin Larson ProviderActiveTeam MemberRelationshipSpecialtyStart Date End Date Anupam Pereira MD [address] [facility] [place] [id number] PCP - General09/30/19 Team Status: Inactive Member Role Status Dates Anupam Pereira MD Attending Provider Active St art: May 08, 2023 End: May 08, 2023 Team Status: Inactive Member Role Status Dates Anupam Pereira MD Primary Care Provider Active Start: May 28, 2023 End: May 28, 2023Fermin Smart ProviderActive Start: May 28, 2023 End: May 28, 2023Team MemberRelationshipSpecialtyStart DateEnd Date Anupam Pereira MD [facility] [place] [address] PCP - Generalmily Sltvbvkw29/13/23 Lynn Jorgensen DIRECTOR OF LABOR RELATIONS-RETAIL PERFORMANCE COACH [address] [place] [address], [facility] [address] [place] [address] Nurse SqqkvwbitszwZetipwahva18/3/23Team MemberRelationshipSpecialtyStart DateEnd Date Anupam Pereira MD [address] [place] [address] PCP - [facility] Arlkshfu08/13/23 Lynn Jorgensen DIRECTOR OF LABOR RELATIONS-RETAIL PERFORMANCE COACH [address] [facility], [facility] [address] [place] [address] Nurse ChqpmxopujalFsmryxzzrd08/3/23 Team Status: Inactive Member Role Status Dates Anupam Pereira MD Primary Care Provider Active Start: December 02, 2023 End: December 02, 2023Fermin Smart ProviderActiveStart: December 02, 2023 End: December 02, 2023Team MemberRelationshipSpecialtyStart DateEnd Date Anupam Pereira MD [address] [place] [address] PCP - [facility] Lmfpqcud45/13/23 Lynn Jorgensen, DIRECTOR OF LABOR RELATIONS-RETAIL PERFORMANCE COACH [address] [facility], [address] [place] [address] Nurse LlxwjwpnyfprYtvtnrxpnn71/3/23 Team Status: Active Member Role Status Dates Anupam Pereira MD Primary Care Provider Active Start: March 03, 2024 Lupe Rosado MDOther ProviderActiveStart: March 03, 2024 Chasity Harper MDAttending ProviderActiveStart: March 03, 2024 Team Status: Active Member Role Status Dates Anupam Pereira MD Primary Care Provide r, Attending Provider Active Start: March 03, 2024 Team MemberRelationshipSpecialtyStart DateEnd Date Anupam Pereira MD [address] [place] [address] PCP - [facility]04/16/23 Lynn Jorgensen, DIRECTOR OF LABOR RELATIONS-RETAIL PERFORMANCE COACH [address] [facility], [facility] [address] [place] [address] Nurse BzvjjoplhjcyYozzmlxjob34/3/23Team MemberRelationshipSpecialtyStart DateEnd Date Anupam Pereira MD [address] [place] [address] PCP - [facility]04/16/23 Daphne Mayes MD [address] [facility], [address] [place] [address] JbayribhvnhaUdpvtpxxymzpgjngj09/20/24 Team Status: Active Member Role Status Dates Anupam Pereira MD Primary Care Provider Active Start: June 08, 2024 Solange Isbell CMAAttending ProviderActiveStart: June 08, 2024 Team Status: Active Member Role Status Dates Anupam Pereira MD Primary Care Provider Active Start: June 03, 2024 Chasity Harper , MDAttending Provider, Other ProviderActiveStart: June 03, 2024 Team MemberRelationshipSpecialtyStart DateEnd Date Anupam Pereira MD [address] [facility] [place] [place] [address] PCP - GeneralFawvly Klfbyncm19/13/23 Daphne Mayes MD [address] [facility] [address], [address] [place] [address] XmbyswozehgbHznwaotefdtfhxzec28/20/24 Team Status: Inactive Member Role Status Dates Anupam Pereira MD Primary Care Provider Active Start: December 31, 2024 End: December 31, 2024Fermin Black ProviderActiveStart: December 31, 2024 End: December 31, 2024 Team Status: Inactive Member Role Status Dates Anupam Pereira MD Primary Care Provider Active Start: February 04, 2025 End: February 04, 2025Bipin Blackending ProviderActiveStart: February 04, 2025 End: February 04, 2025 Team Status: Active Member Role/Relationship Status Dates Anupam Pereira MD Primary Care Provider Active Team Status: Inactive Member Role/Relationship Status Dates Anupam Pereira MD Primary Care Provider Active Start: December 31, 2024 End: December 31, 2024Bipin Blackending ProviderActiveStart: December 31, 2024 End: December 31, 2024 Team Status: Inactive Member Role/Relationship Status Dates Anupam Pereira MD Primary Care Provider Active Start: February 04, 2025 End: February 04, 2025Anupam Pereira MDAttending ProviderActiveStart: February 04, 2025 End: February 04, 2025 Team Status: Active Member Role/Relationship Status Dates Anupam Pereira MD Primary Care Provider Active Start: March 10, 2025 Lupe Rosado MDOther ProviderActiveStart: March 10, 2025 Fermin Braden ProviderActiveStart: March 10, 2025 Team Status: Inactive Member Role/Relationship Status Dates Anupam Pereira MD Primary Care Provider Active Start: March 10, 2025 End: March 10, 2025Fermin Carrillo ProviderActiveStart: March 10, 2025 End: March 10, 2025 Goals (unrecognized section and content) Goals [...] FOR VISIT (unrecogniz ed section and content) ReasonCommentsFollow-up4 month follow up ICD (implantable cardioverter- defibrillator) in placeSpecialtyDiagnoses / ProceduresReferred By Contact Referred To ContactCardiology Diagnoses Chronic systolic congestive heart failure Procedures Follow Up In Cardiology Lupe Rosado MD [address] [place] [address] Phone: tel: fax: Lupe Rosado MD [address] [place] [address] 2, [address] [address] Phone: tel: fax: Referral IDStatusReasonStart DateExpiration DateVisits RequestedVisits [id number]/6/20252/[id number] CheckRoutine check upReasonCommentsFollow-up6 monthSpecialtyDiagnoses / ProceduresReferred By ContactReferred To ContactCardiology Diagnoses ICD (implantable cardioverter-defibrillator) in place Procedures Follow Up In Cardiology Lynn Jorgensen, NATE-PAMELA [address] [facility], [address] [address] Daphne Mayes MD [address] [facility], [address] [address] Referral IDStatusReasonStart DateExpiration DateVisits RequestedVisits [id number]/24/202310/[id number]-pn5 month ReasonCommentsFollow-up6 monthsSpecialtyDiagnoses / ProceduresReferred By ContactReferred To ContactCardiology Diagnoses Cardiomyopathy, unspecified type (Multi) Procedures Follow Up In Cardiology Lupe Rosado MD [address] [place] [address] 2, [address] [address] Lupe Rosado MD [address] [place] [address] 2, [address] [address] Referral IDStatusReasonStart DateExpiration DateVisits RequestedVisits [id number]/20241/[id number] IDStatusReasonStart Date Expiration DateVisits RequestedVisits [id number]/16/2024 FOR RECORDS PERTAINING TO PATIENTS WHO ARE [...] BE BASED ON THE PRIMARY CLINICAL RECORDS. [employer] [facility]. provides no warranty or guarantee of the accuracy or completeness of information in this document.
== END 2025-03-24 11:08 | disposition home or self-care (01) ==
LOC: PM 11:08
PROVIDERS: PCP Family Medicine; Visit Provider Nurse Practitioner
DX: M47.816 Spondylosis without myelopathy or radiculopathy, lumbar region (principal); M54.50 Low back pain, unspecified
CPT/HCPCS: 72100; G0463

== ENCOUNTER 2025-03-24 12:14 | Outpatient (OUT) | payer MEDICARE, MEDICAID, SELFPAY ==
--- OUTSIDE RECORDS SUMMARY | 2023-12-01 07:45 | XMS_ITS ---
Author Organization [facility] vices Address [address] [place] [phone] Care Team Providers Care Field Radio Operator Name Role Phone Saloni Rowan Unavailable [phone] REASON FOR VISIT Try-In- U/L CDs Medications Medication SIG (Take, Route, Frequency, Duration) Notes Start Date End Date Status Carvedilol ActiveOmeprazoleActiveEntrestoActiveSertraline HCl 100 MG TabletTAKE 1 TABLET BY MOUTH EVERY DAY Oral; Duration: 90 DaysActive Social History Sex Assigned At : Social History Observation Description Sex Assigned At Female Encounters Encounter Location Date Provider Diagnosis [facility] [address] [place] [phone] 12/01/2023 Saloni Rowan Plan Of Treatment No Information Progress Notes * BELLChantelle Farmer LDOB:1955 (69 yo F)Acc No.[id number]:12/01/2023 Dental Note Patient: Chantelle Hernandez :?Saloni Rowan DDSDOB:1955???Age:68 Y ???Sex:FemaleDate:12/01/2023hone:[phone]:[address] [place] [phone] Subjective: * Chief Complaints: * T ry-In- U/L CDs * Medications: T akingCarvedilol Omeprazole Entresto Sertraline HCl 100 MG Tablet TAKE 1 TABLET BY MOUTH EVERY DAY Oral Taking Carvedilol Taking Omeprazole Taking Entresto Taking Sertraline HCl 100 MG Tablet TAKE 1 TABLET BY MOUTH EVERY DAY Oral Billing Information: * Procedure Codes: * Electronic signature of Saloni Rowan DDS on 03/24/2025 at 12:21 PM EST Sign off status: Pending * Provider: Adrienne Rowan DDS Date: 0 12/01/2023 Generated for Printing/Faxing/eTransmitting on:?03/24/2025 12:21 PM EST
--- OUTSIDE RECORDS SUMMARY | 2024-01-07 09:00 | XMS_ITS ---
Author Organization [facility] vices Address [address] [place] [phone] Care Team Providers Care Social Security Benefits Interviewer Name Role Phone Saloni Rowan Unavailable [phone] REASON FOR VISIT Try In Medications Medication SIG (Take, Route, Frequency, Duration) Notes Start Date End Date Status Carvedilol ActiveOmeprazoleActiveEntrestoActiveSertraline HCl 100 MG TabletTAKE 1 TABLET BY MOUTH EVERY DAY Oral; Duration: 90 DaysActive Social History Sex Assigned At : Social History Observation Description Sex Assigned At Female Encounters Encounter Location Date Provider Diagnosis [facility] [address] [place] [phone] 01/07/2024 Saloni Rowan Plan Of Treatment No Information Progress Notes * RUY Chantelle LDOB:1955 (69 yo F)Acc No.[id number]:01/07/2024 Dental Note Patient: Chantelle Hernandez :?Saloni Rowan DDSDOB:1955???Age:68 Y ???Sex:FemaleDate:01/07/2024hone:[phone]:[address] [place] [id number] Subjective: * Chief Complaints: * T ry In * Medications: T akingCarvedilol Omeprazole Entresto Sertraline HCl 100 MG Tablet TAKE 1 TABLET BY MOUTH EVERY DAY Oral Taking Carvedilol Taking Omeprazole Taking Entresto Taking Sertraline HCl 100 MG Tablet TAKE 1 TABLET BY MOUTH EVERY DAY Oral Billing Information: * Procedure Codes: * Electronic signature of Saloni Rowan DDS on 03/24/2025 at 12:20 PM EST Sign off status: Pending * Provider: Adrienne Rowan DDS Date: 0 01/07/2024 Generated for Printing/Faxing/eTransmitting on:?03/24/2025 12:20 PM EST
--- OUTSIDE RECORDS SUMMARY | 2024-08-09 06:40 | XMS_ITS ---
Author Organization [facility] Address [address] [place] [address] Care Team Providers Care Facilities Locator Name Role Phone Norma Tapia M.D. Primary Care Provider Unavail able Clint Aden Unavailable [phone] Chloe Jacobo Unavailable [phone] REASON FOR VISIT RIGHT STYLOID FX Encounters Encounter Location Date Provider Diagnosis [facility] Office [address] [place] [address] [place] [address] 08/09/2024 [facility] Acute pain of right wrist M25.531 and [...] 2 months as she does live in [place] part-time with her significant other. Right EPL [...] 2 months as she does live in [place] part-time with her significant other. Pending Test Test Name Order Date SCC- PT/OT EVAL AND TREAT 3X/WEEK FOR 6 WEEKS 08/09/2024 Next Appt Details Follow Up: 9 WEEKS, Reason: Progress Notes * REDMOND, NYADOB:1955 ([age] yo F)Acc No.[id number]:08/09/2024 Patient:?NYA REDMOND :?Chloe Grubbs, PADOB:1955???Age:68 Y???Sex:FemaleDate:08/09/2024Phone:[phone]:[address] [place], [place] [id number]:Norma Tapia M.D. Subjective: * Chief Complaints: * [...] right wrist without contrast was reviewed from [facility] from 08/03/24 Impression No linear fracture. Subtle [...] 2 months as she does live in [place] part-time with her significant other.?? * Preventive Medicine: ??MIPS Measures:?[id number] Fall Risk?Screening:?One fall with injury in the [...] Electronic signature of Chloe Jacobo PA-C on 03/24/2025 at 12:19 PM ESTSign off status: Pending * Provider: JOSIAS Altamirano Date: 0 08/09/2024 Generated for Printing/Faxing/eTransmitting on:?03/24/2025 12:19 PM EST History and Physical Notes * [...] right wrist without contrast was reviewed from [facility] from 08/03/24 Impression No linear fracture. Subtle carpal distal radius bony edema. Likely related to degenerative change and possible bony contusion. Degenerative central fibrocartilage tendon with small amount effusion inthe distal radial ulnar joint. No traumatic tear. Findings of tenosynovitis/partial tear of the extensor pollicis longus at Dsiha's tubercle.
--- OUTSIDE RECORDS SUMMARY | 2024-10-11 06:40 | XMS_ITS ---
Author Organization [facility] Address [address] [place] [address] Care Team Providers Care Multiple Slide Operator Name Role Phone Willie Valdivia, Norma Primary Care Provider Unavail Clint [facility] [phone] REASON FOR VISIT RIGHT WRIST PAIN, RIGHT WRIST CONTUSION Encounters Encounter Location Date Provider Diagnosis [facility] [address] [place] [address] [place] [address] 10/11/2024 Clint Aden Plan Of Treatment No Information Progress Notes * NYA REDMONDDOB:1955 ([age] yo F)Acc No.[id number]:10/11/2024 Patient:?NYA REDMOND :?Clint Aden MDDOB:1955???Age:69 Y ???Sex:FemaleDate:10/11/2024Phone:[phone]:[address] [place], [place]Jfm:Norma Tapia M.D. Subjective: * Chief Complaints: * 1 . RIGHT WRIST PAIN, RIGHT WRIST CONTUSION. * Medical History: Objective: * Vitals: Assessment: Plan: * Treatment: Forms: * Images: * Electronic signature of Clint Aden MD on 03/24/2025 at 12:19 PM ESTSign off status: Pending * Provider: Augusto Aden MD Date: 0 10/11/2024 Generated for Printing/Faxing/eTransmitting on:?03/24/2025 12:19 PM EST
--- NOTE | 2025-03-24 12:20 | XR_ITS ---
The [address] [address] Patient Name: NYA REDMOND MRN: [id number] date: 1955 Sex: F Assigned Patient Location: [facility] Current Patient Location: [facility] Accession/Order Number: [id number] Exam Date: 03/24/2025 12:22 Report Date: 03/24/2025 20:05 At the request of: ANUPAM PEREIRA MD Procedure: XR lumbar spine 2-3V 3 views lumbar spine compared to prior examination 12/25/2023 Mild scoliosis. Adequate lumbar lordosis. Similar mild degenerative listhesis. Extensive spondylosis greatest at the L5-S1 level. Lower lumbar hypertrophic facet changes. No acute fracture. XR/XR lumbar spine 2-3V IMPRESSION: Extensive lower lumbar degenerative change. Impression dictated by: Harsh Ríos M.D. 03/24/2025 8:05 PM Dictation Location: [facility] Electronically authenticated by: [id number] Date: 03/24/2025 20:05
--- OUTSIDE RECORDS SUMMARY | 2025-03-24 12:20 | XMS_ITS | Patient Health Record ---
Author Organization [facility] Address [address] [place] [address] Care Team Providers Care Cutter Machine Name Role Phone Norma Tapia M.D. Primary Care Provider Unavail able AdenClint seay Unavailable [phone] Chloe Jacobo Unavailable [phone] Allergies No Known Allergies Results Component Value [...] distal end of right radius, initial encounter (S52.591S) Referral Organization [facility] Referring Provider First Name Chole Referring Provider Last Name Odalis Referring Provider Speciality Physician Mold Maintenance Technician Referred Organization [facility] Central Scheduling Referred Address [address] [place] [place], [place],[address],US Procedure 1 MRI Joint Upper Ext w/o Dye ([id number]) General Notes Blanca Patino 02/2025 03:17:53 PM > PER NATACHA PRIOR AUTH HAS BEEN APPROVED FROM 07/12/2024-10/09/2024 AUTH # [id number], AUTH IN CHART. FAXED TO Laina KIRKLAND Monica 07/12/2024 03:24:17 PM > FAXED ORDER, Tomjenn Fela 07/16/2024 10:31:32 AM >Change location to [facility] in [place]. Patient has a defibrillator and a pacemaker. Unable to have MRI at [place]. Faxed order to [facility]. They will set up her cardiac clearance and the MRI., Blanca Patino 07/16/2024 11:02:17 AM > AUTH HAS BEEN UPDATED TO [facility] AND FAXED OVER WELL, RooseveltdavidFela 07/20/2024 05:48:10 PM >[facility] is working on getting patient scheduled Referral Priority Routine Social History Tobacco Use: Social History Observation Description Date Details (start date - stop date) Never Smoker NA - NA AUDIT-C (Standard) Question Answer Notes Did you have a drink containing alcohol in the p ast year? No Onxiyn9QqvsukgeizcwnqEviroalcRikmbkj Control (Standard) Question Answer Notes Tobacco use: Nonsmoker Problems Problem Type SNOMED Code ICD Code Onset Dates Problem Status W/U Status Risk Notes Problem Trips over objects (W18.40XA)ActiveconfirmedProblemSprain of right wrist (22442353073208578)Sprain of right wrist, initial encounter (S63.501A)Active confirmedProblemClosed fracture radial styloid (640623742)Nondisplaced fracture of right radial styloid process, subsequent encounter for closed fracture with routine healing (S52.514D)ActiveconfirmedProblemAbrasion, elbow area (679046175) Abrasion of right elbow, initial encounter (S50.311A)ActiveconfirmedProblem Contusion of right elbow (99817971669315113)Contusion of right elbow, initial encounter (S50.01XA)Activeconfirmed Vital Signs Height 5'0 in 07/19/2024 Nyimpv159 lbs5BMI37.69007/19/2024 Encounters Encounter Location Date Provider Diagnosis [facility] [address] [place] [address] [place] [address] [facility] M25.531 and Contusion of right wrist, initial encounter S60.211A [facility] [address] [facility] [place] [address] 06/07/2024 [facility] Contusion of right elbow, initial encounter S50.01XA ; Abrasion of right elbow, initial encounter S50.311A ; Sprain of right wrist, initial encounter S63.501A and Trips over objects W18.40XA [facility] [address] [facility] [place] [address] 06/14/2024 [facility] Nondisplaced fracture of right radial styloid process, initial encounter for closed fracture S52.514A and Sprain of right wrist, initial encounter S63.501A [facility] [address] [facility] [place] [address] 06/21/2024 [facility] Other closed fracture of distal end of right radius, initial encounter S52.591A [facility] [address] [facility] [place] [address] 06/25/2024 Chloe [facility] Nondisplaced fracture of right radial styloid process, subsequent encounter for closed fracture with routine healing S52.514D [facility] [address] [facility] [place] [address] 06/28/2024 [facility] Other closed fracture of distal end of right radius, initial encounter S52.591A [facility] [facility] [address] [facility] [place] [address] 07/12/2024 Clint Aden Nondisplaced fracture of right radial styloid process, subsequent encounter for closed fracture with routine healing S52.514D [facility] [address] [place] [address] 07/19/2024 [facility] Nondisplaced fracture of right radial styloid process, subsequent encounter for closed fracture with routine healing S52.514D [facility] [address] [place] [address], [place] [address] 06/08/2024 [facility] Other closed fracture of distal end of right radius, initial encounter S52.591A [facility] [address] [place] [address] 06/11/2024 [place] Other closed fracture of distal end of right radius, initial encounter S52.591A Assessments Encounter Date Diagnosis (ICD Code) Assessment Notes Treatment Notes Treatment Clinical Notes Section Notes 06/08/2024 Other closed fractur e of distal end of right radius, initial encounter (ICD-10 - S52.591A) 06/11/2024Other closed fracture of distal end of right radius, initial encounter (ICD-10 - S52.591A)06/14/2024Nondisplaced fracture of right radial styloid process, initial encounter for closed fracture (ICD-10 - S52.514A)06/14/2024 Sprain of right wrist, initial encounter (ICD-10 - S63.501A)06/21/2024Other closed fracture of distal end of right radius, initial encounter (ICD-10 - S52.591A)06/25/2024Nondisplaced fracture of right radial styloid process, subsequent encounter for closed fracture with routine healing (ICD-10 - S52.514D)06/28/2024Other closed fracture of distal end of right radius, initial encounter (ICD-10 - S52.591A)07/12/2024Nondisplaced fracture of right radial styloid process, subsequent encounter for closed fracture with routine healing (ICD-10 - S52.514D)07/19/2024Nondisplaced fracture of right radial styloid process, subsequent encounter for closed fracture with routine healing (ICD-10 - S52.514D)08/09/2024ontusion of right wrist, initial encounter (ICD-10 - S60.211A) Right EPL partial tear versus tenosynovitis Right distal radius bony contusion 5Acute pain of right wrist (ICD-10 - M25.531) Right EPL partial tear versus tenosynovitis Right distal radius bony contusion 06/07/2024ontusion of right elbow, initial encounter (ICD-10 - S50.01XA)Right elbow abrasion/qwedrhnte82/03/2025brasion of right elbow, initial encounter (ICD-10 - S50.311A)Right elbow abrasion/ynmhncnjv83/03/2025Sprain of right wrist, initial encounter (ICD-10 - S63.501A)Right elbow abrasion/contusion 06/07/2024Trips over objects (ICD-10 - W18.40XA)Right elbow abrasion/contusion 08/09/2024OtherReviewed patient's MRI results with her and [...] 2 months as she does live in [place] part-time with her significant other. Right EPL partial tear versus tenosynovitis Right distal radius bony contusion 06/07/2024OtherToday discussed with patient and her daughter that although there is no apparent fracture of her distal radius, there is a calcification noted and patient is very tender over this area. Given her extreme tenderness and swelling I will keep her in a splint for the next week and we will have her return in 1 week to remove splint and repeat x-rays.Right elbow abrasion/xmrzyklvt81/10/2025 OtherPatient swelling has decreased somewhat and I did place her in a short arm cast today. She was encouraged to continue to elevate and work on finger ROM. We will see her back in 1 week to evaluate hercast fit and repeat x-rays.06/21/2024 OtherThe patient has been immobilized for 2 weeks now for her distal radius fracture. We will keep her in the short arm cast for the next month. I have encouraged her to continue to elevate her arm and work on ROM of her fingers and thumb. We will see her back in 4 weeks to remove cast and repeat x-rays. 06/25/2024OtherToday I bivalved patient's cast to provide her some relief as she did already have a area of swelling to the dorsal aspect of the wrist prior to this fracture. She will continue to elevate over the weekend and we will see her back on Friday to reassess her progress.06/28/2024OtherToday I overlaid the patient's short arm cast that was bivalved with another layer of fiberglass. She will continue to elevate and try to increase the mobility in her hands. 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 We will see her back in 3 weeks to remove cast and repeat x-rays.07/12/2024Other I discussed the patient that her clinical [...] on finger range of motion. Import medication 07/19/2024OtherPatient will continue with her wrist splint, working on finger and thumb ROM and I am going to stepdown her pain medication to tramadol. She will get her MRI of the wrist and we will see her back after imaging is complete to review and offer further recommendations. Plan Of Treatment Pending Test Test Name Order Date MRI : Wrist W/O Contrast Right - [id number] 07/12/2024 [facility]- PT/OT EVAL AND TREAT 3X/WEEK FOR 6 WEEKS 08/09/2024 Insurance Providers Payer Name Payer Address Payer Phone Subscriber Number Group Number Insured Name Patient Relationship to Insured Coverage Start Date Coverage End Date Medicare [employer] [address] [place] [address] [id number] Radha REDMOND - patient is the insured[place] Dept of Medicaid [address] [place] [id number], ROSASelf - patient is the insured
--- OUTSIDE RECORDS SUMMARY | 2025-03-24 12:21 | XMS_ITS | Patient Health Record ---
Author Organization [facility] Address [address], [place] [address] Care Team Providers Care Threading Machine Setter Name Role Phone Saloni Rowan Unavailable [phone] Allergies Allergen (clinical drug ingredient) Drug/Non Drug Allergy documented on EMR Reaction Allergy Type Onset Date Status Latex Latex Unknown Allergy Active Reason For Referral No Information Medications Medication SIG (Take, Route, Frequency, Duration) Notes Start Date End Date Status Carvedilol ActiveOmeprazoleActiveEntrestoActiveSertraline HCl 100 MG TabletTAKE 1 TABLET BY MOUTH EVERY DAY Oral; Duration: 90 DaysActive Social History Sex Assigned At : Social History Observation Description Sex Assigned At Female Social History Tobacco Use:Social InfoQuestionAnswerNotesTobacco Use/SmokingAdditional Findings: Tobacco Non-UserCurrent non-smoker Problems Problem Type SNOMED Code ICD Code Onset Dates Problem Status W/U Status Risk Notes Problem Obese class II ([id number]) BMI 35.0 -35.9,adult (Z68.35) Activeconfirmed Plan Of Treatment No Information Insurance Providers Payer Name Payer Address Payer Phone Subscriber Number Group Number Insured Name Patient Relationship to Insured Coverage Start Date Coverage End Date [facility] [address] [place] [address] [id number] [facility] Chantelle Bell Self - patient is the insured 3
--- OUTSIDE RECORDS SUMMARY | 2025-03-24 12:37 | XMS_ITS | CCD ---
Author Organization [facility] Care Team Providers Care Dental Receptionist Name Role Phone Hampole, Haile V Unavailable Unavailable Hampole, Haile V Unavailable Unavailable Hampole, Haile V Unavailable Unavailable ANUPAM PEREIRA~[phone] UNKNOWN Unavailable Unavailable Harsh Lange Unavailable Unavailable Harsh Lange Unavailable Unavailable Anupam Pereira Unavailable Unavailable Unavailable MD Anupam Pereira Primary Care Provider MD Daphne Mayes Attending Provider [phone] Unavailable Unavailable MD Anupam Pereira Primary [...] Unavailable PEREIRA, DR ANUPAM Kurtz Admitting Unavailable SUNBURST, DR CECY Wade Consulting Unavailable ZIEBER, DR [...] Provider Anupam Pereira MD Primary Care Provider [phone] Maren Aden Attending Provider Lupe Rosado MD Attending Provider LUPE ROSADO Attending Unavailable ROSADO, TORREZ M Referring Unavailable ANUPAM PEREIRA Primary Care Unavailable ROSADOLUPE M Attending Unavailable ROSADO, TORREZ M Referring Unavailable ANUPAM PEREIRA Primary Care Unavailable ROSADOLUPE M Attending Unavailable ROSADO, TORREZ M Referring Unavailable ANUPAM PEREIRA Primary Care Unavailable Daphne Mayes MD Unavailable Anupam Pereira MD Primary Care Provider [phone] Lupe Rosado MD Other Provider Chasity Harper MD Attending Provider Anupam Pereira MD Attending Provider Anupam Pereira MD Primary Care Provider Anupam Pereira MD Attending Provider Lupe Rosado MD Other Provider Chasity Harper MD Attending Provider Lupe Rosado MD Attending Provider [phone] Lupe Rosado Attending Unavailable Lupe Rosado Admitting Unavailable Anupam Pereira Primary Care Unavailable Lupe Rosado Admitting Unavailable Lupe Rosado Attending Unavailable Anupam Pereira Primary Care Unavailable Anupam Pereira Primary Care Unavailable Maren Aden Attending Unavailable Maren Aden Admitting Unavailable Rosemarie Lea Admitting Unavailable Anupam Pereira Primary Care Unavailable Rosemarie Lea R Attending Unavailable Anupam Pereira Primary Care Unavailable Chasity Harper Attending Unavailable Chasity Harper Admitting Unavailable Lupe Rosado Attending Unavailable Andreia, Lupe Admitting Unavailable Anupam Pereira Primary Care Unavailable Allergies Allergy ClassificationReported Allergen(s)Allergy TypeDate of OnsetReaction(s) Facility (1 source)Adhesive Tape; Translations: [Tape]Propensity to adverse reactions (disorder)[facility] Repository (16 sources)DesonideDrug Doyasmc56-71-4848Djgimdu, RashThe [facility] (1 source)LatexDrug allergy (disorder)[facility] (1 source)patient allergy list reviewed by nurse or physiciaPropensity to adverse fpqxlelap30-30-3890Lshnadh:[employer] Other (1 source)Allergies ReconciledPropensity to adverse reactionsUnkBoommy FashionResearch Medical Center Prevoty Other (10 sources)Adhesive agent; Translations: [ADHESIVE]Drug Zqkpqdyypnu08-77-6926 [facility] (1 source)Adhesive TapeDrug allergy (disorder)04-85-5784AntdbqnpnSelect [facility] Medications Current Medications MedicationDrug Class(es)DatesSig (Normalized)Sig (Original)amoxicillin 875 mg / clavulanate 125 mg oral tablet (2 sources)Penicillin-class AntibacterialStart: 98-04-1055plbi 1 tablet by mouth every twelve hoursAmoxicillin-Pot Clavulanate 875-125 MG 1 tablet Orally every 12 hrs for 10 day(s) Jan, Activebaclofen 10 mg oral tablet (3 sources)gamma-Aminobutyric Acid-ergic Agonisttake 1 tablet by mouth every twelve hoursBaclofen 10 MG 1 tablet as needed Orally Twice a day Active benzonatate 200 mg oral capsule (4 sources)Non-narcotic AntitussiveStart: 47-19-4943cqfv 1 capsule by mouth every eight hoursBenzonatate 200 MG 1 capsule Orally Three times a day for 10 day(s) May, ActiveStart: 73-50-1583wgga 1 capsule by mouth every eight hoursBenzonatate 200 MG 1 capsule Orally Three times a day for 10 day(s) Dec, Activecefdinir 300 mg oral capsule (3 sources)Cephalosporin AntibacterialStart: 83-72-4773Xqspgkll 300 MG as directed Orally bid for 7 May, ActiveStart: 91-12-5886Dmjqzoqt 300 MG as directed Orally bid for 7 days Dec, Activecodeine phosphate 2 mg/ml / guaiFENesin 20 mg/ml oral solution (2 sources)Opioid AgonistStart: 75-44-5070eujj 10 mL by mouth every four hours as neededguaiFENesin AC 100-10 MG/5ML 10 mL as needed Orally every 4 hrs for 7 days Dec, Activefurosemide 40 mg oral tablet (2 sources)Loop DiureticStart: 02-25-2023 End: 38-72-7361egripuhdkq (Lasix) 40 mg tablet Indications: Chronic systolic [...] ActivemethylPREDNISolone 4 mg oral tablet (3 sources)CorticosteroidStart: 60-12-6196gznuacLADMWPFmhtlb 4 MG as directed Orally for 6 days May, ActiveStart: 93-19-2211spqwukPFDBDTNawcvh 4 MG as directed Orally for 6 days Jan, ActivepredniSONE 20 mg oral tablet (6 sources)Start: 55-89-7956gjyu 2 tablets by mouth every twenty-four hours predniSONE 20 MG 2 tablets Orally Once a day for 5 days May, Active Start: 70-15-6594vecg 2 tablets by mouth every twenty-four hourspredniSONE 20 MG 2 tablets Orally Once a day for 5 days Dec, Activesertraline 50 mg oral tablet (20 sources)Serotonin Reuptake InhibitorStart: 03-02-2024 End: 06-28-2880ujve 1 tablet by mouth once dailyStart: 02-25-2024 End: 40-38-9252nesy 1 tablet by mouth once dailySertraline 100 mg tablet Discontinued 0 .ROUTE .COMPLEX 90 0 February 25, 2024 2:49pm March 02, 2024 10:24am TAKE 1 TABLET BY MOUTH EVERY DAYStart: 06-20-2023 End: 76-28-0341ntuh 1 tablet by mouth once dailySertraline 100 [...] 20 Active Completed/Discontinued Medications MedicationDrug Class(es)DatesSig (Normalized)Sig (Original)[id number] 200 actuat albuterol 0.09 mg/actuat metered dose inhaler (12 sources)beta2-Adrenergic AgonistStart: 06-20-2023 End: 37-46-1360tjdl 1 puff(s) by inhalation every four to six hours as needed for wheezingAlbuterol Sulfate 90 mcg/actuation HFA aerosol inhaler Discontinued 2 PUFF INHALATION EVERY 4-6 HOURS as needed for shortness of breath or wheezing 6.7 June 20, 2023 12:00am December 2141:01pmStart: 06-20-2023 End: 18-38-2626nutt 1 puff(s) by inhalation every four to six hoursAlbuterol Sulfate Discontinued 2 PUFF INHALATION EVERY 4-6 HOURS 6.7 June 20, 2023 1:00am December 22, 2023 2:01pmStart: 65-21-6088ldtu 1 puff(s) by inhalation every four to six hoursAlbuterol Sulfate Active 2 PUFF INHALATION EVERY 4-6 HOURS 6.7 June 20, 2023 1:00amStart: 08-74-0233yozm 2 puff(s) by inhalation every four hours as neededAlbuterol Sulfate HFA 108 (90 Base) MCG/ACT 2 puff Inhalation every 4 hrs prn Jan, ActiveStart: 85-15-1285sbyj 2 puff(s) by inhalation every four hours as neededAlbuterol Sulfate HFA 108 (90 Base) MCG/ACT 2 puff Inhalation every 4 hrs prn 07 Jan, 2023 ActiveAlbuterol Sulfate HFA 108 (90 Base) MCG/ACT INHALE 2 PUFFS BY MOUTH EVERY 4 HOURS NEEDED FOR 30 DAYS for 30 ActiveAlbuterol Sulfate 90 mcg/actuation HFA aerosol inhaler (7 sources)Start: 06-20-2023 End: 19-62-3836xzsi 1 puff(s) by inhalation every four to six hours as needed for wheezingAlbuterol Sulfate 90 mcg/actuation HFA aerosol inhaler Discontinued 2 PUFF INHALATION EVERY 4-6 HOURS as needed for shortness of breath or wheezing 6.7 June 20, 2023 1:00am December 22, 2023 2:01pmStart: 06-20-2023 End: 31-95-4256sghx 1 puff(s) by inhalation every four to six hours as needed for wheezingAlbuterol Sulfate 90 mcg/actuation HFA aerosol inhaler Discontinued 2 PUFF INHALATION EVERY 4-6 HOURS as needed for shortness of breath or wheezing 6.7 June 20, 2023 12:00am December 22, 2023 1:01pmazithromycin 250 mg oral tablet (3 sources)Macrolide AntimicrobialStart: 12-31-2024 End: 10-62-0774Rzgpajrpsabm 250 mg tablet Discontinued 0 PO .COMPLEX 6 0 December 30, 2024 11:00pm February 04, 2025 9:20am For 250 mg dose pack: take 500 mg today (day 1), then 250 mg for 4 days (days 2-5) POcarvedilol 3.125 mg oral tablet (20 sources)alpha-Adrenergic Roxy, beta-Adrenergic BlockerStart: 11-18-2023 End: 83-77-9247qmwr 1 tablet by mouth twice dailyCarvedilol 3.125 mg tablet Discontinued 3.125 MG PO Twice daily December 21, 2023 11:00pm July 26, 2024 7:50amStart: 04-03-2021 End: 68-94-9555rhnu 1 tablet by mouth twice dailycarvedilol (Coreg) [...] capsule (13 sources)Provitamin D2 CompoundStart: 10-09-2022 End: 68-18-7654zygt 1 capsule by mouth once dailyVitamin D (Ergocalciferol) 50 MCG (2000 UT) Oral Capsule one daily OTC Quantity: 90 Refills: 0 Ordered: 09-Oct-2022 Lupe Rosado MD Start : 09-Oct-2022 ActiveStart: 39-18-4773rupw 1 capsule by mouth every weekVitamin D (Ergocalciferol) 1.25 MG (30267 UT) 1 capsule Orally weekly for 90 day(s) May, Activefebuxostat 80 mg oral tablet (5 sources)Xanthine Oxidase Inhibitortake 1 tablet by mouth once dailyUloric 80 MG TAKE 1 TABLET BY MOUTH EVERY DAY Oral for 90 Not-Takinglisinopril 10 mg oral tablet (5 sources)Angiotensin Converting Enzyme Inhibitortake 1 tablet by mouth once dailyLisinopril 10 MG TAKE 1 TABLET EVERY DAY Oral for 90 Not-Pvlpsk44 hr metFORMIN hydrochloride 500 mg extended release oral tablet (18 sources)BiguanideStart: 07-26-2024 End: 24-01-3878Aulfortee 500 mg tablet extended release 24 hr Discontinued 1000 MG PO Daily 60 July 26, 2024 10:35am February 04, 2025 9:20amStart: 60-30-3391ffoz 1 tablet by mouth twice dailymetFORMIN XR 500 mg 24 hr tablet Take 1 tablet (500 mg) by mouth 2 times daily (morning and late afternoon). 05/31/2024 ActiveStart: 05-31-2024 End: 19-01-7995ucqj 1 tablet by mouth once daily, then [...] mg oral tablet (14 sources)Start: 06-10-2024 End: 14-27-6529jqnp 1 tablet by mouth once dailyNebivolol 2.5 mg tablet Discontinued 2.5 MG PO Daily June 14, 2024 12:00am December 31, 2024 1 2:21pmNirmatrelvir-Ritonavir (4 sources)Start: 12-22-2023 End: 18-89-9065Jqxmtftunrzc-Ritonavir (Paxlovid) 300 mg (150 mg x 2)-100 mg tablets,dose pack Discontinued 0 PO .COMPLEX 30 December 21, 2023 11:00pm March 02, 2024 10:24am take TWO 150 mg tablets of nirmatrelvir with ONE 100 mg tablet of ritonavir twice daily for 5 days POStart: 12-22-2023 End: 19-68-8517Mhzftlaokcgw-Ritonavir (Paxlovid) 300 mg (150 mg x 2)-100 mg tablets,dose pack Discontinued 0 PO .COMPLEX December 22, 2023 12:00am March 02, 2024 11:24am take TWO 150 mg tablets of nirmatrelvir with ONE 100 mg tablet of ritonavir twice daily for 5 days PONirmatrelvir-Ritonavir (Paxlovid) 300 mg (150 mg x 2)-100 mg tablets,dose pack (10 sources)Start: 12-22-2023 End: 40-93-4275Yiakuqvhntxn-Ritonavir (Paxlovid) 300 mg (150 mg x 2)-100 mg tablets,dose pack Discontinued 0 PO .COMPLEX December 21, 2023 11:00pm March 02, 2024 10:24am take TWO 150 mg tablets of nirmatrelvir with ONE 100 mg tablet of ritonavir twice daily for 5 days POStart: 12-22-2023 End: 88-06-8256Rzbanoxaedwo-Ritonavir (Paxlovid) 300 mg (150 mg x 2)-100 mg tablets,dose pack Discontinued 0 PO .COMPLEX 30 December 22, 2023 12:00am March 02, 2024 11:24am take TWO 150 mg tablets of nirmatrelvir with ONE 100 mg tablet of ritonavir twice daily for 5 days POStart: 23-08-8738Vjalpzahejoq- Ritonavir (Paxlovid) 300 mg (150 mg x 2)-100 mg tablets,dose pack Active 0 PO .FQIRJPU63 December 22, 2023 12:00am take TWO 150 mg tablets of nirmatrelvir with ONE 100 mg tablet of ritonavir twice daily for 5 days POomeprazole 20 mg delayed release oral capsule (20 sources)Proton Pump InhibitorStart: 04-21-2024 End: 92-36-2736jolq 1 capsule by mouth once dailyOmeprazole 20 mg capsule,delayed release(DR/EC) Discontinued 0 .ROUTE .COMPLEX July 060:42am November 11, 2024 3:20pm TAKE 1 CAPSULE BY MOUTH EVERY DAYStart: 12-22-2023 End: 43-96-5790ksfu 1 capsule by mouth once dailyOmeprazole 20 mg capsule,delayed release(DR/EC) Discontinued 20 MG PO Daily December 21, 2023 11:00pm April 21, 2024 10:49amOmeprazole 20 MG TK 2 CS PO QD Oral for Activesacubitril 49 mg / valsartan 51 mg oral tablet (20 sources)Angiotensin 2 Receptor BlockerStart: 10-09-2021 End: 74-55-8069jpnc 1 tablet by mouth twice dailySacubitril-Valsartan (Entresto) [...] (14 sources)Angiotensin 2 Receptor BlockerStart: 06-10-2024 End: 97-82-5642vstt 1 tablet by mouth once dailyValsartan 80 mg tablet Discontinued 80 MG PO Daily June 14, 2024 12:00am December 31, 2024 12: 21pm Problems Active Problems Problem ClassificationProblemDateDocumented DateEpisodic/ChronicAbdominal pain (15 sources)Right upper quadrant pain; Translations: [Right upper quadrant pain] Onset: 07-84-6558CxsqeipsBnzot bronchitis (2 sources)Acute bronchitis; Translations: [Acute bronchitis]Onset: 08-30-2014 EpisodicAnxiety disorders (14 sources)Generalized anxiety disorder; Translations: [Generalized anxiety disorder]Onset: 76-39-3422LdeqgrrFpoemps dysrhythmias (12 sources)Atrial fibrillation; Translations: [Unspecified atrial fibrillation] Onset: 668143-56-1720YbaeqazHsdajeu obstructive pulmonary disease and bronchiectasis (20 sources)Bronchitis; Translations: [Bronchitis, not specified as acute or chronic]EpisodicConduction disorders (20 sources)Automatic implantable cardiac defibrillator in situ; Translations: [Automatic implantable cardiac defibrillator in situ]Onset: ChronicCongestive heart failure; nonhypertensive (20 sources)Chronic systolic heart failure; Translations: [Chronic systolic heart failure]Onset: 99-95-0967FttvdvmQndicyoccj and other anemia (5 sources)Anemia, unspecified; Translations: [ANEMIA UNSPECIFIED]Onset: 39-69-8416IuhyphzpTmicmxerpp disorders (14 sources)Gastroesophageal reflux disease without esophagitis; Translations: [Gastro-esophageal reflux disease without esophagitis]ChronicEssential hypertension (15 sources)Essential hypertension; Translations: [Essential (primary) hypertension]Onset: 07-43-6432BgllukdCkywslthxzcxp symptoms and ill-defined conditions (18 sources)Increased frequency of urination; Translations: [Frequency of micturition]16-04-0834OiamscfbVfey and other crystal arthropathies (20 sources)Articular gout; Translations: [Gout, unspecified]Onset: 03-28-2014 ChronicInfluenza (1 source)Influenza due to other identified influenza virus with other respiratory manifestationsEpisodicMood disorders (20 sources)Depression; Translations: [Depressive disorder]Onset: 08-29-2017 19-28-1941EzsiehgGrsmnslqifk chest pain (20 sources)Precordial pain; Translations: [Precordial pain]Onset: 09-15-2017 EpisodicNutritional deficiencies (12 sources)Vitamin D deficiency; Translations: [Vitamin D deficiency, unspecified]Onset: 35-14-3980KclhhpgUfcrmjpaenivux (20 sources)Osteoarthritis; Translations: [Unspecified osteoarthritis, unspecified site]Onset: 504146-51-0649LrimxpzXsflfgn on above:bilateral Other acquired deformities (14 sources)Acquired [...] source)Other chronic pain; Translations: [OTHER CHRONIC PAIN]Onset: 73-34-2675UdsujmqAizvk nervous system disorders (9 sources)Paresthesia of upper [...] obese; Translations: [Body Mass Index 40.0-44.9, adult]Onset: 73-34-0831NmhonufNruhz nutritional; endocrine; and metabolic disorders (17 sources)Morbid obesity; Translations: [Morbid obesity]Onset: 06-21-2014 96-35-3961DhgaxtcLsnei nutritional; endocrine; and metabolic disorders (1 source)Hypercalcemia; Translations: [Hypercalcemia]Onset: 36-86-1777Jnigdpa Other nutritional; endocrine; and metabolic disorders (20 sources)Obese class II; Translations: [Body mass index (BMI) 38.0-38.9, adult]52-69-9536YnjohhvAgdzp nutritional; endocrine; and metabolic disorders (4 sources)Body mass index 30+ - obesity; Translations: [Body mass index (BMI) 38.0-38.9, adult]Onset: 701395-46-1743BclzbigTwlaz nutritional; endocrine; and metabolic disorders (2 sources)Body mass index (BMI) 38.0-38.9, adult; Translations: [Body mass index (BMI) 38.0-38.9, adult]Onset: 94-84-1317JzceapoDdbiw nutritional; endocrine; and metabolic disorders (2 sources)Obesity, unspecified; Translations: [Obesity, unspecified]Onset: 82-61-7191FxxkvnpKmcqa nutritional; endocrine; and metabolic disorders (2 sources)Body mass index (BMI) 37.0-37.9, adult; Translations: [Body mass index (BMI) 37.0-37.9, adult]Onset: 20-73-4114IvnhejxXtbvi nutritional; endocrine; and metabolic disorders (7 sources)Abnormal weight gain; Translations: [Abnormal weight gain]07-26-2024 EpisodicOther nutritional; endocrine; and metabolic disorders (3 sources)Abnormal weight gain; Translations: [Abnormal weight gain]07-26-2024 EpisodicOther upper respiratory disease (9 sources)Epistaxis; Translations: [Epistaxis]EpisodicOther upper respiratory disease (5 sources)Bleeding from nose; Translations: [Epistaxis]EpisodicPeri-; endo-; and myocarditis; cardiomyopathy (except that caused by tuberculosis or sexually transmitted disease) (20 sources)Cardiomyopathy; Translations: [Other primary cardiomyopathies]Onset: 64-71-7569NlsjnumPlbnrfs on above:Nonischemic;Residual codes; unclassified (20 sources)Obstructive sleep apnea of adult; Translations: [Obstructive sleep apnea (adult)(pediatric)]Onset: 306160-73-8798QyvumywIjmwpccp codes; unclassified (10 sources)Obstructive sleep apnea syndrome; Translations: [Obstructive sleep apnea (adult) (pediatric)]01-61-1705QktgqqmGynbarwu codes; unclassified (11 sources)Obstructive sleep apnea (adult) (pediatric); Translations: [Obstructive sleep apnea (adult)(pediatric)]Onset: hronic Residual codes; unclassified (9 sources)Tobacco user; Translations: [Tobacco use]EpisodicResidual codes; unclassified (9 sources)Never smoked tobacco; Translations: [Other specified health status] Onset: 126900-61-7011HmiaudngPlcebvhzwyc; intervertebral disc disorders; other back problems (8 sources)Spondylosis without myelopathy or radiculopathy, lumbar region; Translations: [Other intervertebraldisc degeneration, lumbar region]Onset: 95-76-7185KtiggisSahfzdsnbcv; intervertebral disc disorders; other back problems (20 sources)Neck pain; Translations: [Cervicalgia]Onset: EpisodicUnclassified (4 sources)LOW BACK PAIN, UNSPECIFIED; Translations: [LOW BACK PAIN, UNSPECIFIED]Onset: 41-23-2411Lhaqrpwwefrf (5 sources)Exposure to acute respiratory syndrome coronavirus [...] status; Translations: [Other specified counseling]Onset: 08-29-2023 Resolved: 929221-12-5367MiuqzorzKunnjfkaf infection; unspecified site (1 source)Bacterial infectious disease; Translations: [Bacterial infection, unspecified, in conditions classified elsewhere and of unspecified site]Onset: 22-53-8807LdhivlclOqjb; stupor; and brain damage (1 source)Somnolence; Translations: [Somnolence]Onset: 04-01-1760Ujprdxdi Deficiency and other anemia (1 source)Anemia; Translations: [Unspecified anemia]Onset: 13-71-3701Jwccxbvf Diabetes mellitus without complication (20 sources)Impaired fasting glycemia; Translations: [Impaired fasting glucose] Onset: 985241-62-9806KvpgdlncEivexgub of upper limb (13 sources)Fracture of unspecified carpal bone, right wrist, initial encounter for closed fracture; Translations: [Fracture of right wrist]Onset: 08-03-2024 15-01-1466PvnvvmvzFvfdcdh and fatigue (20 sources)Fatigue; Translations: [Other malaise and fatigue]Onset: 09-07-2021 EpisodicMood disorders (7 sources)Mood disordersOnset: 127218-86-2563Vpwllcnmr of unspecified nature or uncertain behavior (1 source)Neoplasm of uncertain behavior of kidney; 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]Onset: 26-80-2641CdkqszvkDkxkw acquired deformities (4 sources)Unspecified deformity of right finger(s); Translations: [UNSPECIFIED DEFORMITY RIGHT FINGERS]Onset: 02-70-5462QtgdxgadCzjlx connective tissue disease (1 source)Spasm; Translations: [Spasm of muscle]Onset: 79-43-2346UyyuosynAsphj connective tissue disease (1 source)Myalgia/myositis - multiple; Translations: [Unspecified myalgia and myositis]Onset: 49-44-6550JgmhnnlsAdiga ear and sense organ disorders (1 source)Acute otitis externa; Translations: [Other acute otitis externa]Onset: 21-78-4624SylfwfvpWftir lower respiratory disease (20 sources)Dyspnea; Translations: [Other respiratory abnormalities]Onset: 710877-80-2368CcrvbneoZvsqe lower respiratory disease (5 sources)Dyspnea, unspecified; Translations: [DYSPNEA UNSPECIFIED]Onset: 85-13-1605KqkkwwyeVqmqk nervous system disorders (1 source)Altered sensation of skin; Translations: [Disturbance of skin sensation]Onset: 78-31-6071BbxvzcefIhtll non-traumatic joint disorders (1 source)Arthralgia of the lower leg; Translations: [Pain in joint, lower leg] Onset: 02-60-9195MfauofmrBhntl nutritional; endocrine; and metabolic disorders (12 sources)Obesity; Translations: [Obesity, unspecified]Onset: 02-25-2023 Resolved: 420635-88-2653NnuhxyxMknrp screening for suspected conditions (not mental disorders or infectious disease) (1 source)Mammography abnormal; Translations: [Unspecified abnormal mammogram] Onset: 19-05-8783QsxrbbamGslez upper respiratory infections (1 source)Acute maxillary sinusitis; Translations: [Acute maxillary sinusitis] Onset: 45-56-3190LckynjrkNgnsnibx codes; unclassified (1 source)Postmenopausal state; Translations: [Asymptomatic postmenopausal status]Onset: 18-88-3737QqqjzkfiTselotso codes; unclassified (1 source)C/O - a back symptom; Translations: [Other symptoms referable to back] Onset: 77-66-3255AqhuhjjlTbdtfebo codes; unclassified (2 sources)Other specified health status; Translations: [Other specified health status]Onset: 59-62-2241PwvbfjtuTfxlukmq codes; unclassified (1 source)Other specified personal risk factors, not elsewhere classified; Translations: [Other specified personal risk factors, not elsewhere classified] Onset: 88-20-7264FcyqwxvzXmtwylnmebkk (6 sources)Never smoked tobacco; Translations: [Never a smoker]Unclassified (1 source)LOW BACK PAIN, UNSPECIFIED; Translations: [LOW BACK PAIN, UNSPECIFIED] Onset: 28-88-8215Eltsnenbikri (6 sources)Onset: 08-29-2023 Resolved: Results Test NameValueInterpretationReference RangeFacilityBasophils Auto (Bld) [#/Vol] Ordered By: Anupam Pereira on 30-84-3781Xziwtfceg (Bld) [#/Vol]0.0 10 3/uL0.0-0.1 [facility]onBasophils/100 WBC Auto (Bld)Ordered By: Anupam Pereira on 57-18-9144Suwwygxdx/100 WBC (Bld)0.4 %0.2-2.0[facility] CantonEosinophils/100 WBC Auto (Bld)Ordered By: Anupam Pereira on 02-04-2025 Eosinophils/100 WBC (Bld)2.0 %0.9-7.0[facility] Erythrocyte distribution width Auto (RBC) [Ratio]Ordered By: Anupam Pereira on 20-85-4853Dilcpeqcitp distribution width (RBC) [Ratio]13.4 %11.0-15.0[facility] CantonGlomerular filtration rate (GFR) estimation in non- AmericanOrdered By: Anupam Pereira on 55-36-0111LFJ/1.73 sq M.predicted among non-blacks MDRD (S/P/Bld) [Vol rate/Area]mL/min/{1.73_m2}>=60 mL/min/1.73m 2FBlanchard Valley Health System Bluffton HospitalHematocrit Auto (Bld) [Volume fraction]Ordered By: Anupam Pereira on 76-17-8507Lxmckfdrya (Bld) [Volume fraction]38.2 %36.0-48.0 [facility] CantonHemoglobin [Mass/volume] in BloodOrdered By: Anupam Pereira on 68-27-9275Tlxacsvofo (Bld) [Mass/Vol]12.5 g/dL12.0-16.0[facility] CantonLaboratory - Chemistry and Chemistry - challengeOrdered By: Anupam Pereira on 20-56-5271Zyhjejv [Mass/Vol]9.3 mg/dL8.5-10.1FBlanchard Valley Health System Bluffton HospitalChloride [Moles/Vol]105 mmol/K89-074TjcddvqzvSelect Medical Specialty Hospital - CantonCO2 [Moles/Vol]30.2 mmol/L21.0-32.0[facility] CantonCreatinine [Mass/Vol]0.75 mg/dL0.55-1.02[facility] GFR/1.73 sq M.predicted MDRD (S/P/Bld) [Vol rate/Area]mL/min/{1.73_m2}>=60 mL/min/1.73m [address] [place], [place] [address]Glucose [Mass/Vol]95 mg/pD67-633 [facility] CantonPotassium [Moles/Vol]3.9 mmol/L3.5-5.1FMercy Health St. Charles Hospitalodium [Moles/Vol]143 mmol/B228-875LgjekuxxgSelect Medical Specialty Hospital - CantonUrea nitrogen [Mass/Vol]17.0 mg/dL7.0-18.0[facility] CantonUrea nitrogen/Creatinine [Mass ratio]22.7 mg/mgSelect Medical Specialty Hospital - CantonBilirubin Ql (U)NegativeNEGMercy Health Kings Mills Hospital Glucose (U) [Mass/Vol]NegativeNEGATIVESelect Medical Specialty Hospital - CantonKetones Ql (U)NegativeNEGMercy Health Kings Mills HospitalpH (U)6.0 [pH]5.0-9.0 [facility] Hospitalpecific gravity (U) [Rel density]1.025 1.005-1.025[facility] - CantonUrobilinogen Qn (U)2.0 {Trish'U}/dLAbnormal0.2-1.0[facility] - CantonLaboratory - Hematology and Cell countsOrdered By: Anupam Pereira on 54-75-6400Vtbqtcmv granulocytes/100 WBC (Bld)0.4 %0.0-0.5FBlanchard Valley Health [facility] Laboratory - Specimen informationOrdered By: Anupam Pereira on 02-04-2025 Appearance (U)CLEARCLEARFBlanchard Valley Health System Bluffton HospitalColor (U)LT. YELLOW YELLOWSelect Medical Specialty Hospital - CantonLaboratory - UrinalysisOrdered By: Anupam Pereira on 46-63-5732Akuwcduxk esterase Test strip Ql (U)NegativeNEGMercy Health Kings Mills HospitalNitrite Ql (U)NegativeNEGMercy Health Kings Mills HospitalProtein Ql (U)NegativeNEG/TRACESelect Medical Specialty Hospital - CantonLeukocytes [#/volume] corrected for nucleated erythrocytes in Blood by Automated coun Ordered By: Anupam Pereira on 07-43-1154TDF corrected for nucl RBC Auto (Bld) [#/Vol]7.4 10 3/uL4.0-11.0[facility] - CantonLymphocytes Auto (Bld) [#/Vol]Ordered By: Anupam Pereira on 93-19-2918Diialisvxxp (Bld) [#/Vol]1.8 10 3/uL1.2-3.8[facility] - CantonLymphocytes/100 WBC Auto (Bld) Ordered By: Anupam Pereira on 44-80-7590Epwrgltbpvp/100 WBC (Bld)24.4 %20.5-60.0 [facility] ClinicH Auto (RBC) [Entitic mass]Ordered By: Anupam Pereira on 33-73-7541ZIX (RBC) [Entitic mass]28.3 pg26.7-34.0[facility] - CantonMCHC Auto (RBC) [Mass/Vol]Ordered By: Anupam Pereira on 02-04-2025 MCHC (RBC) [Mass/Vol]32.7 g/dL29.9-35.2FBlanchard Valley Health System Bluffton HospitalMCV Auto (RBC) [Entitic vol]Ordered By: Anupam Pereira on 50-68-5518VGE (RBC) [Entitic vol]86.6 fL81.0-99.0[facility] - CantonMonocytes Auto (Bld) [#/Vol]Ordered By: Anupam Pereira on 25-03-3834Nqpdglijm (Bld) [#/Vol]0.7 10 3/uL 0.3-0.8[facility] - CantonMonocytes/100 WBC Auto (Bld)Ordered By: Anupam Pereira on 25-67-7400Xgogykucf/100 WBC (Bld)8.8 %1.7-12.0[facility] Hospital - CantonNeutrophils Auto (Bld) [#/Vol]Ordered By: Anupam Pereira on 57-54-7489Eiocpuxwxut (Bld) [#/Vol]4.7 10 3/uL1.4-6.5FBlanchard Valley Health System Bluffton HospitalNeutrophils/100 WBC Auto (Bld)Ordered By: Anupam Pereira on 02-04-2025 Neutrophils/100 WBC (Bld)64.0 %43.0-75.0[facility] - CantonNo Panel InformationOrdered By: Anupam Pereira on 14-46-1186Rtgojqxwlsp # (Auto)0.2 10 3/uL0.0-0.7FBlanchard Valley Health System Bluffton HospitalImmature Granulocyte # (Auto)0.03 10 3/uL0.00-0.03[facility] - CantonUrine Occult BloodTRACE-I NEGATIVESelect Medical Specialty Hospital - CantonPlatelet mean volume Auto (Bld) [Entitic vol]Ordered By: Anupam Pereira on 77-24-5446Mfllclbl mean volume (Bld) [Entitic vol]9.8 fL9.5-13.5FBlanchard Valley Health System Bluffton HospitalPlatelets Auto (Bld) [#/Vol]Ordered By: Anupam Pereira on 92-80-7689Thaharfdx (Bld) [#/Vol]322 10 3/uL 150-450[facility] Hospital - CantonRBC Auto (Bld) [#/Vol]Ordered By: Anupam Pereira on 09-55-0609NHS (Bld) [#/Vol]4.41 10 6/uL4.20-5.40St. Charles Hospitalerum or plasma anion gap determinationOrdered By: Anupam Pereira on 67-90-1699Vpefq gap [Moles/Vol]11.7 mmol/LFBlanchard Valley Health System [facility]uffton Hospital Magnetic resonance imaging reportOrdered By: Harsh Ríos on 25-33-8572Guzgi reportTRUMBULL REGIONAL [place] [address] MRI Report Signed Patient: Nya Bell MR#: [id number] : 1955 Acct:[id number] Age/Sex: 68 / F ADM Date: 5 Loc: MR Room: Type: [facility] Attending Dr: Maren Aden Copies to: Maren Aden~ Ordering Provider: Maren Aden Date of Service: 08/03/24 XR/XR pre/post mri xray: S52.591A ([id number]) MR/MR wrist RT wo con: SEE ORDER [...] Harsh Ríos M.D.08/03/2024 3:45 PM Dictation Location: [place] [address] Transcribed By: [facility] 08/03/24 1545 Dictated By: Harsh Ríos DO 08/03/24 1520 Signed By: 08/03/24 1545 [facility] - CantonXR pre/post mri xrayon 05-44-6860QX pre/post mri xrayTRUMBULL REGIONAL [facility] [place] [address] [place] [address] MRI Report Signed Patient: Nya Bell MR#: [id number] : 1955 Acct:[id number] Age/Sex: 68 / F ADM Date: 08/03/24 Loc: MR Room: Type: [facility] Attending Dr: Maren Aden Copies to: Maren Aden Ordering Provider: Maren Aden Date of Service: 08/03/24 XR/XR pre/post mri xray: S52.591A ([id number]) MR/MR wrist RT wo con: SEE ORDER [...] Harsh Ríos M.D.08/03/2024 3:45 PM Dictation Location: [place] [address] Transcribed By: [facility] 08/03/24 1545 Dictated By: Harsh Ríos DO 08/03/24 1520 Signed By: 08/03/24 1545NoFirstHealth Montgomery Memorial Hospital Physician PtenhE3E with Estimated Average Gluon 19-98-7705Xzrrqsl [Mass/Vol]114 mg/dLNoFirstHealth Montgomery Memorial Hospital Physician GroupComment on above:Result Comment: PERFORMED BY: [address] [place] [address] PATHOLOGIST CHAIR LIFT OPERATOR ARASELI SAHU M.D.Performed By: #### CBCNO, A1C WT eA, LIPID, TSH3 wRFLX #### [facility] [address] [place] [address] QIOMwU5w (Bld) [Mass fraction]5.6 %Normal4.3-5.6[facility] Holmes Memorial HospitalComment on above:Result Comment: Increased risk for diabetes: 5.7 - 6.4 diabetes: >6.4 glycemic control for adults with diabetes: <7.0Performed By: #### CBCNO, A1C WT eA, LIPID, TSH3 wRFLX #### [address] [place] [address] USABlood estimated average glucose determination by estimation from glycated hemoglobinOrdered By: Rosemarie Lea on 07-12-2024 Average glucose Estimated from glycated hemoglobin (Bld) [Mass/Vol]Glucose mean value [Mass/volume] in Blood Estimated from glycated hemoglobinSelect Medical Specialty Hospital - CantonCholesterol [Mass/volume] in Serum or PlasmaOrdered By: Rosemarie Lea on 27-28-5799Psxtqgwprlk [Mass/Vol]Cholesterol [Mass/volume] in Serum or Ywjluz082-126ZlcqqudamSelect Medical Specialty Hospital - CantonComment on above:Chol less than 200 mg/dl low riskChol 201-239 mg/dl borderline riskChol 240 mg/dl and greater high riskCholesterol in HDL [Mass/volume] in Serum or PlasmaOrdered By: Rosemarie Lea on 91-20-8637Eqpzfvwlvkl in HDL [Mass/Vol]Serum or plasma high density lipoprotein (HDL) cholesterol kkhrqzkpczo86-21XhpjdgpvcSelect Medical Specialty Hospital - CantonComment on above:HDL CHOL ATP-III CLASSIFICATION Cardiovascular RiskHDL > or equal to 60 mg/dL LOWHDL < 40 mg/dL HIGHCholesterol in LDL Calc [Mass/Vol] Ordered By: Rosemarie Lea on 06-53-9329Baralqtmppb in LDL [Mass/Vol] Cholesterol in LDL [Mass/volume] in Serum or Plasma by calculation0-100Select [facility] Hospital - CantonComment on above:LDL ATP III CLASSIFICATIONLDL less than 100 mg/dL OptimalLDL 100-129 mg/dL Near or above nqwauexGZP366-098 mg/dL Borderline highLDL 160-189 mg/dL HighLDL greater than 189 mg/dL Very high Cholesterol in VLDL Calc [Mass/Vol]Ordered By: Rosemarie Lea on 07-12-2024 Cholesterol in VLDL [Mass/Vol]Cholesterol in VLDL [Mass/volume] in Serum or Plasma by calculationSelect Medical Specialty Hospital - CantonErythrocyte distribution width Auto (RBC) [Ratio]Ordered By: Rosemarie Lea on 91-09-1562Uymlcuocywb distribution width (RBC) [Ratio]Erythrocyte distribution width [Ratio] by Automated count11.9-15.3FBlanchard Valley Health System Bluffton HospitalHematocrit Auto (Bld) [Volume fraction]Ordered By: Rosemarie Lea on 51-75-4266Hfpudijwbi (Bld) [Volume fraction]Hematocrit [Volume Fraction] of Blood by Automated count 34.0-46.4FBlanchard Valley Health System Bluffton HospitalHemoglobin A1c/Hemoglobin.total in BloodOrdered By: Rosemarie Lea on 07-76-3242FnH1z (Bld) [Mass fraction] Hemoglobin A1c percentage4.3-5.6FBlanchard Valley Health System Bluffton HospitalComment on above:Increased risk for diabetes: 5.7 - 6.4diabetes: >6.4glycemic control for adults with diabetes: <7.0Hemoglobin [Mass/volume] in BloodOrdered By: Rosemarie Lea on 41-91-7148Ntnftzspbf (Bld) [Mass/Vol]Hemoglobin [Mass/volume] in Blood11.8-15.4FBlanchard Valley Health System Bluffton HospitalHemogram CBC Without Diffon 85-05-4226Bypcpzmpfuf distribution width (RBC) [Ratio]14.4 %Rlseik31.9-15.3[facility] Physician GroupComment on above:Performed By: #### CBCNO, A1C WTH eA, LIPID, TSH3 wRFLX #### [facility] [address] [place] [address] USAHematocrit (Bld) [Volume fraction]36.0 %Jitqxg68.0-46.4The [facility] Physician GroupComment on above:Performed By: #### CBCNO, A1C WTH eA, LIPID, TSH3 wRFLX #### [facility] [address] [place] [address] USAHemoglobin (Bld) [Mass/Vol]12.3 g/nNMitxbx46.8-15.4The [facility] Physician GroupComment on above:Performed By: #### CBCNO, A1C WTH eA, LIPID, TSH3 wRFLX #### [facility] [address] [place] [address] USAH (RBC) [Entitic mass]29.0 xkJtrakm50.7-34.3[facility] Physician GroupComment on above:Performed By: #### CBCNO, A1C WTH eA, LIPID, TSH3 wRFLX #### [facility] [address] [place] [address] USAV (RBC) [Entitic vol]84.7 eYDifzcl73-534Dkz [facility] Physician GroupComment on above:Performed By: #### CBCNO, A1C WTH eA, LIPID, TSH3 wRFLX #### [facility] [address] [place] [address] USAMean Corpuscular HGB Conc34.2 g/hACwznom88.0-35.0The [facility] Physician GroupComment on above:Performed By: #### CBCNO, A1C WTH eA, LIPID, TSH3 wRFLX #### [place] [address] USAPlatelet mean volume (Bld) [Entitic vol]9.0 fLNormal 6.3-10.7The [facility] Health Physician GroupComment on above:Result Comment: PERFORMED BY: [place] [address] PATHOLOGIST CHAIR LIFT OPERATOR ARASELI SAHU M.D.Performed By: #### CBCNO, A1C WTH eA, LIPID, TSH3 wRFLX #### [place] [address] USAPlatelets (Bld) [#/Vol]299 10*3/cCJkjmrn469-759Nwv [facility] Physician GroupComment on above:Performed By: #### CBCNO, A1C WTH eA, LIPID, TSH3 wRFLX #### [place] [address] USARBC (Bld) [#/Vol]4.25 10*6/uLNormal3.60-5.00The [facility] Physician GroupComment on above:Performed By: #### CBCNO, A1C WTH eA, LIPID, TSH3 wRFLX #### [place] [address] USAWBC (Bld) [#/Vol]8.0 10*3/uLNormal3.8-11.6The [facility] Physician GroupComment on above:Performed By: #### CBCNO, A1C WTH eA, LIPID, TSH3 wRFLX #### [address] [place] [address] USALeukocytes [#/volume] corrected for nucleated erythrocytes in Blood by Automated counOrdered By: Rosemarie Lea on 28-44-0339QFF corrected for nucl RBC Auto (Bld) [#/Vol]Leukocytes [#/volume] corrected for nucleated erythrocytes in Blood by Automated coun3.8-11.6FBlanchard Valley Health System Bluffton HospitalLipid Panelon 77-17-2848Pnelpymlazd [Mass/Vol]145 mg/dLNormal 140-200The [facility] Physician GroupComment on above:Result Comment: Chol less than 200 mg/dl low risk Chol 201-239 mg/dl borderline risk Chol 240 mg/dl and greater high riskPerformed By: #### CBCNO, A1C WTH eA, LIPID, TSH3 wRFLX #### [facility] [address] [place] [address] USACholesterol in HDL [Mass/Vol]51 mg/vFRhybvz15-02Ywe [facility] Physician GroupComment on above:Result Comment: HDL CHOL ATP-III CLASSIFICATION Cardiovascular Risk HDL > or equal to 60 mg/dL LOW HDL < 40 mg/dL HIGHPerformed By: #### CBCNO, A1C WTH eA, LIPID, TSH3 wRFLX #### [facility] [address] [place] [address] USACholesterol.total/Cholesterol in HDL [Mass ratio]2.8 {ratio}Normal<5.0The [facility] Physician GroupComment on above:Performed By: #### CBCNO, A1C WTH eA, LIPID, TSH3 wRFLX #### [facility] [address] [place] [address] USALDL Cholesterol,Xgpzilkynw12 mg/dLNormal0-100The [facility] Physician GroupComment on above:Result Comment: LDL ATP III CLASSIFICATION LDL less than 100 mg/dL Optimal LDL 100-129 mg/dL Near or above optimal LDL 130-159 mg/dL Borderline high LDL 160-189 mg/dL High LDL greater than 189 mg/dL Very highPerformed By: #### CBCNO, A1C WTH eA, LIPID, TSH3 wRFLX #### [facility] [address] [place] [address] USATriglyceride w/Qplvsa67 mg/dLNormal0-149[facility] Physician GroupComment on above:Result Comment: TRIG ATP III CLASSIFICATION TRIG less than 150 mg/dL Normal TRIG 150-199 mg/dL Borderline high TRIG 200-500 mg/dL High TRIG greater than 500 mg/dL Very high Standard traceable to the Center for Disease Conrtrol and Prevention (CDC) test method.Performed By: #### CBCNO, A1C [facility] eA, LIPID, TSH3 wRFLX #### [facility] [address] [place] [address] USAVLDL UBZPBRJIAIU58 mg/dLNormAdventHealth Altamonte Springs Physician GroupComment on above:Performed By: #### CBCNO, A1C [facility] eA, LIPID, TSH3 wRFLX #### [facility] [address] [place] [id number] [facility] Auto (RBC) [Entitic mass]Ordered By: Rosemarie Lea on 90-08-6651PWU (RBC) [Entitic mass]MCH [Entitic mass] by Automated count 24.7-34.3FOhioHealth Grove City Methodist Hospital Auto (RBC) [Mass/Vol]Ordered By: Rosemarie Lea on 53-83-9423MAMJ (RBC) [Mass/Vol]MCHC [Mass/volume] by Automated count32.0-35.0[facility] Auto (RBC) [Entitic vol]Ordered By: Rosemarie Lea on 11-75-8991NRH (RBC) [Entitic vol]MCV [Entitic volume] by Automated -862EstpvwozcSelect Medical Specialty Hospital - Canton Platelet mean volume Auto (Bld) [Entitic vol]Ordered By: Rosemarie Lea on 02-79-3446Xuqdyviu mean volume (Bld) [Entitic vol]Platelet mean volume [Entitic volume] in Blood by Automated count6.3-10.7FBlanchard Valley Health System [facility]uff[facility] Hospital Platelets Auto (Bld) [#/Vol]Ordered By: Rosemarie Lea on 60-48-7478Cpvyedlii (Bld) [#/Vol]Platelets [#/volume] in Blood by Automated fakeb260-675QihgljjdwSelect Medical Specialty Hospital - CantonRBC Auto (Bld) [#/Vol]Ordered By: Rosemarie Lea on 98-88-7405GLF (Bld) [#/Vol]Erythrocytes [#/volume] in Blood by Automated count 3.60-5.00St. Charles Hospitalerum or plasma total cholesterol/high density lipoprotein (HDL) cholesterol mass ratOrdered By: Rosemarie Lea on 63-13-1120Qaoclqhedwu.total/Cholesterol in HDL [Mass ratio]Serum or plasma total cholesterol/high density lipoprotein (HDL) cholesterol mass rat<5.0[facility] Hospital - CantonThyroid Stim Hormone w/Rflxon 50-71-0697Facbkmc Stim Hormone w/Rflx1.67 u[iU]/mLNormal0.45-5.33The [facility] Physician GroupComment on above:Result Comment: PERFORMED BY: [facility] [address] [place] [address] PATHOLOGIST CHAIR LIFT OPERATOR ARASELI SAHU M.D.Performed By: #### CBCNO, A1C WTH eA, LIPID, TSH3 wRFLX #### [place] [address] USAThyrotropin [Units/volume] in Serum or PlasmaOrdered By: Rosemarie Lea on 45-77-4437OHP QnThyrotropin [Units/volume] in Serum or Plasma 0.45-5.33[facility] Hospital - CantonTriglyceride [Mass/volume] in Serum or PlasmaOrdered By: Rosemarie Lea on 21-53-7785Hlavjultgfri [Mass/Vol] Triglyceride [Mass/volume] in Serum or Plasma0-149[facility] Hospital - CantonComment on above:TRIG ATP III CLASSIFICATIONTRIG less than 150 mg/dL NormalTRIG 150-199 mg/dL Borderline highTRIG 200-500 mg/dL High TRIG greater than 500 mg/dL Very highStandard traceable to the Center for Disease Conrtrol and Prevention (CDC) test method.HbA1c HPLC (Bld) [Mass fraction]on 05-31-2024 HbA1c (Bld) [Mass fraction]Hemoglobin A1c/Hemoglobin.total in Blood by HPLC [facility] - CantonBASIC METABOLIC PANLon 44-28-6629Butxp gap [Moles/Vol]10 mmol/LNormal5-15ProMedica Cidra HospitalComment on above: Performed By: #### BMP #### [facility] ([id number]) [address], [address] [place], [place] [address]Iouwzak [Mass/Vol]9.3 mg/dLSelect Medical Specialty Hospital - Canton Comment on above:Performed By: #### BMP #### [facility] ([id number]) [address], [address] [place], [place] [address]Zpremhrt [Moles/Vol]105 mmol/[facility] Comment on above:Performed By: #### BMP #### [facility] ([id number]) [address] [facility], [address] [place], [place] [address]XF3 [Moles/Vol]26 mmol/[facility] Medical CenterComment on above:Performed By: #### BMP #### [facility] ([id number]) [address] [facility], [address] [place], [place] [address]Zeiubuiped [Mass/Vol]0.73 mg/dLSelect Medical Specialty Hospital - Canton Comment on above:Result Comment: METHOD TRACEABLE TO IDMS STANDARDPerformed By: #### BMP #### [facility] ([id number]) [address], [address] [place], [place] [address]XPV/1.73 sq M.predicted among non-blacks MDRD (S/P/Bld) [Vol rate/Area]89 mL/min/{1.73_m2}Normal>59ACMC Healthcare System GlenbeighComment on above:Result Comment: Reported eGFR is based on the CKD-EPI 1 equation that does not use a race coefficient.Performed By: #### BMP #### [facility] ([id number]) [address], [address] [place], [place] [address]Mlcrxfx [Mass/Vol]121 mg/dLSelect Medical Specialty Hospital - [facility]on Comment on above:Performed By: #### BMP #### [facility] ([id number]) [address], [address] [place], [place] [address]Tbjthgani [Moles/Vol]3.8 mmol/LFBlanchard Valley Health System [facility]uffton [facility] Comment on above:Performed By: #### BMP #### [facility] ([id number]) [address] [place] [address], [address] [place], [place] [address]Hudyvp [Moles/Vol]141 mmol/LFBlanchard Valley Health System [facility] Comment on above:Performed By: #### BMP #### [facility] ([id number]) [address] [place] [address], [address] [place], [place] [address]Gykw nitrogen [Mass/Vol]19 mg/dLSelect Medical Specialty Hospital - CantonComment on above:Performed By: #### BMP #### [facility] ([id number]) [address] [place] [address], [address] [place], [place] [address]Jc Panel Informationon 90-82-5588Vjlkawzwp GFR (Non- Dqhcpcko45 mL/minSelect Medical Specialty Hospital - CantonCardiac Device Check - In Clinicon 04-21-9118EpazixehnwFlower Hospital Work Phone: Radiology Study observation (narrative)[facility] Work Phone: Influenza virus B Ag [Presence] in Upper respiratory specimen by Rapid immunoassayon 48-33-0115QPBZB Ag IA.rapid Ql (Nph)Negative [facility] - CantonNo Panel Informationon 00-28-8210Ykpgptwlg Type A (Rapid)NegativeSelect Medical Specialty Hospital - CantonPO SARS CoV-2 Antigen PositiveSelect Medical Specialty Hospital - CantonBasi metabolic 2000 panelon 08-29-2023 Anion gap [Moles/Vol]11 mmol/SWlymof56-17RcdekyfowuTriHealth McCullough-Hyde Memorial HospitalComment on above:Performed By: #### 42452-1 #### EMILE YEE ([id number]) [facility] ([facility] [place] [place]) [address] [place] [address]Cbguxzj [Mass/Vol]9.5 mg/dLNormal8.6-10.3[facility] Boardman HospitalComment on above:Performed By: #### 74930-6 #### EMILE YEE ([id number]) [facility] ([facility]) [address] [place], [place] [address]Lpxwndsu [Moles/Vol]107 mmol/NYczprn61-949PquqcbceemMercy Health St. Elizabeth Boardman HospitalComment on above:Performed By: #### 58295-5 #### PONCEIBRAMONA VETO PHILLIP ([id number]) [facility] ([facility]) [address] [place], [place] [address]JB3 [Moles/Vol]29 mmol/PPimowm98-91VnjmzpsvunTriHealth McCullough-Hyde Memorial HospitalComment on above:Performed By: #### 34869-8 #### PONCEIBRAMONA VETO PHILLIP ([id number]) [facility] ([facility]) [address] [place] [address]Exxxvuafkj [Mass/Vol]0.75 mg/dLNormal0.50-1.05UnTriHealth McCullough-Hyde Memorial HospitalComment on above:Performed By: #### 84129-7 #### EMILE VETO PHILLIP ([id number]) [facility] ([facility]) [address] [place] [address]Hnyddmlmpu filtration rate/1.73 sq M.dkxpeaupl76 mL/min/1.73m*2 Normal>60UnTriHealth McCullough-Hyde Memorial HospitalComment on above:Result Comment: Calculations of estimated GFR are performed using the 2020 CKD-EPI Study Refit equation without the race variable for the IDMS-Traceable creatinine methods. https://jasn.asnjournals.org/content//ASN.8679439523Tcdikojxa By: #### 10469-4 #### PONCEIBRAMONA VETO PHILLIP ([id number]) [facility] ([facility]) [address] [place], [place] [address]Xndilph [Mass/Vol]105 mg/dVQanx34-40FhdtoyxybvMercy Health St. Elizabeth Boardman HospitalComment on above:Performed By: #### 31511-5 #### PONCEIBRAMONA EVTO PHILLIP ([id number]) [facility] ([facility]) [address] [place], [place] [address]Gdvjlgcic [Moles/Vol]4.4 mmol/LNormal3.5-5.3Uncovenant health levelland Hospitals Maria Medical CenterComment on above:Performed By: #### 97547-8 #### EMILE YEE ([id number]) [facility] ([facility]) [address] [place] [address]Oetyle [Moles/Vol]143 mmol/WAquopw564-671RfcpwccfjqMercy Health St. Elizabeth Boardman HospitalComment on above:Performed By: #### 79727-0 #### PONCEIBRAMONA YEE ([id number]) [facility] ([facility]) [address] [place] [address]Xguh nitrogen [Mass/Vol]19 mg/dLNormal6-23Mer[facility] St. Elizabeth Boardman HospitalComment on above:Performed By: #### 72952-7 #### EMILE YEE ([id number]) [facility] ([facility]) [address] [place] [address]EUN 12 lead (Clinic Performed)on 65-36-8838Rre scanCPMercy Health [facility] Work Phone: Echocardiogramon 04-97-6401JaaosdygzbxfwjlgTob[address], [address] [place] [address] TRANSTHORACIC ECHOCARDIOGRAM REPORT Patient Name: NYA BELL Mainor Physician: [id number] Lupe Rosado MD, [facility] Study Date: 11/22/2022 Referring LUPE ROSADO Physician: MRN/PID: [id number] PCP: Anupam Pereira Accession/Order#: [id number] [facility] Location: Date of : 1955 Fellow: Gender: F Nurse: Admit Date: Building Tech: Ashlyn Cam RDCS [facility] Height: 152.40 cm CC Report to: Weight: 91.17 kg Study Type: Echocardiogram BSA: 1.87 m2 Blood Pressure: 134 /62 mmHg Diagnosis/ICD: I50.22-Chronic systolic (congestive) heart failure (CHF); I42.9-Cardiomyopathy, unspecified Indication: AICD, WALDEMAR, Obesity Procedure/CPT: Echo Complete w Full Doppler-[id number] Study Detail: The following Echo studies were [...] 0.8 m/s (0.6-0.9m/s) PV Max P.3 mmHg [id number] Lupe Rosado MD, FACC Electronically signed on 11/22/2022 at 1:01:56 PM Final [facility] ValleyOffice Visit (Cardiology)on 93-31-6730Pbfqmv-up visitDiagnoses/Problems Assessed Chronic systolic congestive heart failure [...] Dr. Lupe Rosado MD, schedule at [facility] for echo Follow up in [...] We will arrange for that at [facility]. Her weight is unchanged from previously and [...] device is assessed by electrophysiology at [facility] 3?cardiac catheterization 7 years ago at [facility] was normal 4? fatigue of [...] Recorded: 09Oct2022 10:59AM Heart Rate72, L Radial Hjhlnmxz231, LUE, Sitting Xrxznlyyc72, LUE, Sitting Height5 ft Spmbsg669 lb BMI Rcxopelucc50.26 kg/m2 BSA Calculated1.87 Tobacco Useb) No PHQ-2 [...] c (more content not included)...NormalUH TouchworksTobacco Screening.on 75-73-5957Wqll risk assessmenta) No falls within the last yearMPFitzgibbon Hospital [employer] 250 DO Work Phone: Tobacco use status CPHSb) NoMPMid-Valley Hospital Health Data Minder 250 DO Work Phone: Tobacco Screening.Yes-[facility] [employer] 250 DO Work Phone: CBC AUTO DIFFon [id number] #0.0 103/ulNormal 0.0-0.1[facility] Hospitalment on above:Performed By: #### CBC ####[facility] [address] [address]Dr.Yilan Mazariegos Basophils/100 WBC (Bld)0.4 %Normal0.2-2.0[facility] on above: Performed By: #### CBC ####[facility] [address] [address]Dr.Yilan ChangEO #0.2 103/ulNormal0.0-0.7[facility] on above:Performed By: #### CBC ####[facility] [address] [place], [place] [address]Dr.Yilan ChangEosinophils/100 WBC (Bld)2.0 %Normal0.9-7.0The [facility] on above:Performed By: #### CBC ####[facility] Jczfjsheuk8[address] [place], [place] [address]Dr.Phillip ChangErythrocyte distribution width (RBC) [Ratio]13.8 %Normal 11.0-15.0The [facility] SystemComment on above:Performed By: #### CBC ####[facility] Ugaiapcvnh4411[address] [place], [place] [address]Dr. Rerebrent ChangHematocrit (Bld) [Volume fraction]36.3 %Bhwhfj44.0-48.0The [facility] HospitalComment on above:Performed By: #### CBC ####[facility] Bazehlbjed17[address] [place], [place] [address]Dr.Rerebrent ChangHemoglobin (Bld) [Mass/Vol]12.1 g/nSRflvcy32.0-16.0The [facility] SystemComment on above: Performed By: #### CBC ####[facility] Vwaibsuukv348[address] [place], [place] [address]Dr.Rerebrent ChangIG #0.02 10e3/ulNormal0.00-0.03The [facility] SystemComment on above:Performed By: #### CBC ####[facility] Nfcgukdxii1096[address] [place], [place] [address]Dr.Phillip ChangIG %0.3 %Normal 0.0-0.5The [facility] SystemComment on above:Performed By: #### CBC ####[facility] Hcqrxedtiv859[address] [place], [place] [address]Dr.Rerebrent ChangLYMPH #1.9 103/ulNormal1.2-3.8The [facility] SystemComment on above:Performed By: #### CBC ####[facility] Lzwkxfduvn8545[address] [place], [place] [address]Dr.Rerebrent ChangLymphocytes/100 WBC (Bld)25.7 %Moladj83.5-60.0The [facility] SystemComment on above:Performed By: #### CBC ####[facility] Ykwxoomowr356[address] [place], [place] [address]Dr.Rerebrent ChangMANUAL DIFF REQ NONormalThe [facility] SystemComment on above:Performed By: #### CBC ####[facility] [address] [place] [address]Dr. Phillip MazariegosH (RBC) [Entitic mass]28.7 crNxtyck58.7-34.0The [facility] Comment on above:Performed By: #### CBC ####[facility] Ggbhmtdqxb710[address] [place], [place] [address]Dr.Phillip MazariegosHC (RBC) [Mass/Vol]33.3 g/dL Bhptyn99.9-35.2The [facility] SystemComment on above:Performed By: #### CBC ####[facility] Rqkumnzjgm33[address] [place], [place] [address]Dr. Rerebrent MazariegosV (RBC) [Entitic vol]86.0 gELiequq85.0-99.0The [facility] Comment on above:Performed By: #### CBC ####[facility] Ycaigfkcix9749[address] [place], [place] [address]Dr.Phillip MazariegosMONO #0.6 103/ulNormal0.3-0.8 The [facility] SystemComment on above:Performed By: #### CBC ####[facility] Qqzsquiawj8037[address] [place], [place] [address]DrMilton Mazariegos Monocytes/100 WBC (Bld)7.8 %Normal1.7-12.0The [facility] SystemComment on above: Performed By: #### CBC ####[facility] Upmmtcellb6494[address] [place], [place] [address]Dr.Rerebrent YairNEUT #4.7 103/ulNormal1.4-6.5The [facility] SystemComment on above:Performed By: #### CBC ####[facility] Ppqevsalgt5869[address] [place], [place] [address]Dr.Phillip MazariegosNeutrophils/100 WBC (Bld)63.8 %Yhjiqu04.0-75.0The [facility] SystemComment on above:Performed By: #### CBC ####[facility] Piedtnpvkw[address] [place], [place] [address]Dr.Phillip MazariegosPlatelet mean volume (Bld) [Entitic vol]9.5 fLNormal9.5-13.5 The [facility] SystemComment on above:Performed By: #### CBC ####[facility] [address]ys[address]mkq[address] [place] [address]Dr.Phillip MazariegosPLT269 103/wdNfzdqy304-238Jph [facility] SystemComment on above:Performed By: #### CBC ####[facility] [address]ocb[address] [place] [address]Dr. Phillip MazariegosRBC4.22 106/ulNormal4.20-5.40The [facility] SystemComment on above: Performed By: #### CBC ####[facility] Ywslfwwcjh208[address] [place], [place] [address]Dr.Phillip MazariegosWBC7.4 103/ulNormal4.0-11.0The [facility] SystemComment on above:Performed By: #### CBC ####[facility] Pjyuixyuay2[address] [place], [place] [address]Dr.Phillip MazariegosFERRITINon 74-59-5459Wlzmvmgv [Mass/Vol]212.0 ng/mLNormal8.0-252.0The [facility] Comment on above:Performed By: #### OCTAVIO, VITB12, VITAD #### [facility] [address] [place] [address] Dr. Phillip MazariegosVITAMIN B12on 50-50-8919Qatewceay (Vitamin B12) [Mass/Vol]698.0 pg/gZAgiwht580.0-986.0The [facility] Hospitalment on above:Performed By: #### FERR, VITB12, VITAD #### [facility] [address] [address] [address] Phillip MazariegosVITAMIN D 25 OHon 44-08-3224OOJ D 25-OH28.1 ng/mLNormalThe [facility] Hospitalment on above:Performed By: #### FERR, VITB12, VITAD ####[facility] Mskpunckxd264[address] [place], [place] [address]Dr. Phillip MazariegosVIT D RANGESSEE [facility] Avon HospitalComment on above: Result Comment: <20 ng/mL Vit D deficient 20 - <30 ng/mL Vit D insufficient 30 - 100 ng/mL Vit D sufficient >100 ng/mL Potential ToxicityPerformed By: #### FERR, VITB12, VITAD ####[facility] [address] [address]Dr. Yilan ChangPROF CHEM 8 (BAS METB)on 04-23-2022 Anion gap [Moles/Vol]10.8 mmol/LNormalThe [facility] SystemComment on above: Performed By: #### BMP ####[facility] Kffigezasc3238[address] [place], [place] [address]Dr.Yilan ChangCalcium [Mass/Vol]9.1 mg/dLNormal 8.5-10.1The [facility] SystemComment on above:Performed By: #### BMP ####[facility] Qwzfrjruth9739[address] [place], [place] [address]Dr. Yilan ChangChloride [Moles/Vol]108 mmol/LCritically lywc06-248Eig [facility] SystemComment on above:Performed By: #### BMP ####[facility] Glvsmzuprf78[address] [place], [place] [address]Dr.Yilan ChangCO2 [Moles/Vol] 29.6 mmol/DGhsuqj81.0-32.0The [facility] SystemComment on above:Performed By: #### BMP ####[facility] Ivunvjhnsn4387[address] [place], [place] [address]Dr.Yilan ChangCreatinine [Mass/Vol]0.85 mg/dLNormal0.55-1.02The [facility] SystemComment on above:Performed By: #### BMP ####[facility] Hqxgyuroww[address] [place], [place] [address]Dr.Yilan ChangEGFR-AF HUNGARIAN>60Normal>=60The [facility] SystemComment on above:Performed By: #### BMP ####[facility] Ovtlpreqwq4235[address] [place], [place] [address]Dr. Yilan ChangEGFR-NON AF HUNGARIAN>60Normal>=60The [facility] SystemComment on above:Performed By: #### BMP ####[facility] Mmyfywacht[address] [place], [place] [address]Te.Phillip ChangGlucose [Mass/Vol]90 mg/gEGavdmg91-603 The [facility] SystemComment on above:Performed By: #### BMP ####[facility] [address]tl[address] [place] [address]Dr.Phillip Mazariegos Potassium [Moles/Vol]4.4 mmol/LNormal3.5-5.1The [facility] HospitalComment on above:Performed By: #### BMP ####[facility] [address] [place] [address]Dr.Phillip ChangSodium [Moles/Vol]144 mmol/LNormal 136-145The [facility] SystemComment on above:Performed By: #### BMP ####[facility] [address]ss[address] [place] [address]Dr.Phillip ChangUrea nitrogen [Mass/Vol]24.0 mg/dLCritically high7.0-18.0The [facility] SystemComment on above:Performed By: #### BMP ####[facility] [address] [place] [address]Dr.Phillip ChangUrea nitrogen/Creatinine [Mass ratio] 28.2 mg/mgNormalThe [facility] SystemComva medical center on above:Performed By: #### BMP ####[facility] Vekdbnmsdy[address] [place], [place] [address]Dr. Rerebrent Limice Visit (Cardiology)on 18-75-1550Osefsi-up visit Diagnoses/Problems Assessed Chronic systolic congestive heart [...] Metabolic Panel; Status:Active - Retrospective Authorization; Requested for:[id number]; Echocardiogram; Status:Hold For - Scheduling,Retrospective Authorization; Requested for:[id number]; Class 2 obesity with body mass index (BMI) of 39.0 to 39.9 in adult Healthy Weight Tips; Status:Complete - Retrospective Authorization; Done: [id number] Some eating tips that can help you lose weight.; Status:Complete - Retrospective Authorization; Done: [id number] Patient Instructions Please bring all medicines, vitamins, [...] device is assessed by electrophysiology at [facility] 3?cardiac catheterization 7 years ago at [facility] was normal 4?extreme fatigue of [...] negative for complaint. Vitals Vital Signs Recorded: [id number] 11:16AM Heart Rate62, R Radial Brhjginl309, LUE, Sitting Lcwxmyjxa08, LUE, Sitting Height5 ft Mxuyox179 lb 5 oz BMI Nzyoimwkoz85.32 kg/m2 BSA Calculated1.87 Tobacco Useb) No Falls [...] normal (more content not included)...Normal TouchworksTobacco Screening.on 27-22-3552Jqop risk assessmenta) No falls within the last yearProv[facility]y [facility] DO Work Phone: Tobacco use status CPHSb) [facility] [place] 250 DO Work Phone: XR LSPINE MIN 4 VIEWSon [id number] LSPINE MIN 4 VIEWSEXAMINATION: XR LSPINE MIN [...] Electronically authenticated by: MAREN MARTEL Date: 2022-02-05 07:27[facility] HospitalPROF CHEM 8 (BAS METB)on 84-65-0979Iqpmr gap [Moles/Vol]12.0 mmol/LNormalPromedica Defiance Regional HospitalComment on above:Performed By: #### BMP #### [facility] [address] [place] [address] Dr. Phillip MazariegosCalcium [Mass/Vol]9.1 mg/dLNormal8.5-10.1[facility] Comment on above:Performed By: #### BMP #### [facility] [address] [place] [address] Dr. Phillip MazariegosChloride [Moles/Vol]107 mmol/RGswuiz76-670VyePromedica Defiance Regional Hospital Comment on above:Performed By: #### BMP #### [facility] [address] [address] [address] Phillip MazariegosCO2 [Moles/Vol]27.0 mmol/JPjcwtm51.0-32.0[facility] Comment on above:Performed By: #### BMP #### [facility] [address] [address] [address] Phillip MazariegosCreatinine [Mass/Vol]0.89 mg/dLNormal0.55-1.02The [facility] SystemComment on above:Performed By: #### BMP #### [facility] [address] [place] [address] Dr. Phillip MarreroGFR-AF HUNGARIAN>60Normal>=60The [facility] SystemComment on above:Performed By: #### BMP #### [facility] [address] [address] [address] Phillip MarreroGFR-NON AF HUNGARIAN>60Normal>=60The [facility] SystemComment on above:Performed By: #### BMP #### [facility] [address] [place] [address] Dr. Phillip MazariegosGlucose [Mass/Vol]109 mg/dLCritically nfja25-191Yfn [facility] SystemComment on above:Performed By: #### BMP #### [facility] [address] [place] [address] Dr. Phillip MazariegosPotassium [Moles/Vol]4.0 mmol/LNormal3.5-5.1The [facility] Comment on above:Performed By: #### BMP #### [facility] [address] [place] [address] Dr. Phillip MazariegosSodium [Moles/Vol]142 mmol/UNelnqb230-869Lmb [facility] Comment on above:Performed By: #### BMP #### [facility] [address] [place] [address] Dr. Phillip MazariegosUrea nitrogen [Mass/Vol]19.0 mg/dLCritically high7.0-18.0The [facility] SystemComment on above:Performed By: #### BMP #### [facility] [address] [place] [address] Dr. Phillip Valdivia nitrogen/Creatinine [Mass ratio]21.3 mg/mgNormalThe [facility] SystemComment on above:Performed By: #### BMP #### [facility] [address] [place] [address] Dr. Phillip Wilde.on 51-43-0293Vtukb depression screening assessmentNoMegan [place] [address] DO Work Phone: Adult depression screening assessmentYeDebra [place] [address] DO Work Phone: Fall risk assessmenta) No falls within the last year [place] [address] DO Work Phone: Tobacco use status CPHSb) NoMMorgan [place] [address] DO Work Phone: Tobacco Screening.3-Nearly every dayM[place] [address] DO Work Phone: Tobacco Screening.0-Not at allJenn[place] [address] DO Work Phone: Tobacco Screening.Very DifficultJenn[place] [address] DO Work Phone: CULTURE URINEon [id number] URINEIsolate 1 Proteus mirabilis >100,000 cfu/mL of [...] 128 R F Trimethoprim/Sulfamethoxazole <=20 S FNormalThe [facility] SystemComment on above:Performed By: #### URCX ####[facility] [address] [address]Dr. Phillip Mendoza AUTO DIFFon 74-12-8234LTEG #0.0 103/ulNormal0.0-0.1The [facility] SystemComment on above:Performed By: #### CBC #### [facility] [address] [address] [address] Phillip MazariegosBasophils/100 WBC (Bld)0.4 %Normal0.2-2.0[facility] Comment on above:Performed By: #### CBC #### [facility] [address] [address] [address] Phillip Recinos #0.1 103/ulNormal0.0-0.7The [facility] SystemComment on above: Performed By: #### CBC #### [facility] [address] [address] [address] Phillip Marreroosinophils/100 WBC (Bld)1.9 %Normal0.9-7.0[facility] Comment on above:Performed By: #### CBC #### [facility] [address] [address] [address] Phillip Marrerorythrocyte distribution width (RBC) [Ratio]13.4 %Opcmpn00.0-15.0 The [facility] SystemComment on above:Performed By: #### CBC #### [facility] [address] [address] [address] Phillip MazariegosHematocrit (Bld) [Volume fraction]39.6 %Meravu62.0-48.0[facility] HospitalComment on above:Performed By: #### CBC #### [facility] [address] [address] [address] Phillip MazariegosHemoglobin (Bld) [Mass/Vol]13.0 g/oQAiwfbz73.0-16.0The [facility] SystemComment on above:Performed By: #### CBC #### [facility] [address] [place] [address] Dr. Phillip Menjivar #0.04 10e3/ulCritically high0.00-0.03The [facility] Comment on above:Performed By: #### CBC #### [facility] [address] [place] [address] Dr. Phillip Menjivar %0.5 %Normal0.0-0.5The [facility] SystemComment on above: Performed By: #### CBC #### [facility] [address] [place] [address] Dr. Phillip Schmidt #1.9 103/ulNormal1.2-3.8The [facility] SystemComment on above:Performed By: #### CBC #### [facility] [address] [place] [address] Dr. Phillip Rodashocytes/100 WBC (Bld)26.2 %Hakjlw71.5-60.0The [facility] SystemComment on above:Performed By: #### CBC #### [facility] [address] [place] [address] Dr. Phillip Izaguirre DIFF REQNONormalThe [facility] SystemComment on above: Performed By: #### CBC #### [facility] [address] [place] [address] Dr. Phillip Goode (RBC) [Entitic mass]28.8 leOkhpms93.7-34.0The [facility] SystemComment on above:Performed By: #### CBC #### [facility] [address] [place] [address] Dr. Phillip Goode (RBC) [Mass/Vol]32.8 g/hKFoupqc17.9-35.2The [facility] SystemComment on above:Performed By: #### CBC #### [facility] [address] [place] [address] Dr. Phillip Goode (RBC) [Entitic vol]87.8 fAFqiqwp53.0-99.0The [facility] SystemComment on above:Performed By: #### CBC #### [facility] [address] [place] [address] Dr. Phillip Dominguez #0.5 103/ulNormal0.3-0.8The [facility] SystemComment on above:Performed By: #### CBC #### [facility] [address] [place] [address] Dr. Phillip Kasperocytes/100 WBC (Bld)6.9 %Normal1.7-12.0The [facility] Comment on above:Performed By: #### CBC #### [facility] [address] [place] [address] Dr. Phillip Alonso #4.7 103/ulNormal1.4-6.5The [facility] SystemComment on above:Performed By: #### CBC #### [facility] [address] [place] [address] Dr. Phillip Dukeutrophils/100 WBC (Bld)64.1 %Vwojtk18.0-75.0The [facility] SystemComment on above:Performed By: #### CBC #### [facility] [address] [place] [address] Dr. Phillip Sparks mean volume (Bld) [Entitic vol]9.6 fLNormal9.5-13.5The [facility] SystemComment on above:Performed By: #### CBC #### [facility] [address] [place] [address] Dr. Phillip AnnT298 103/rkBzpxwq550-958Yam [facility] SystemComment on above: Performed By: #### CBC #### [facility] [address] [place] [address] Dr. Phillip VivasC4.51 106/ulNormal4.20-5.40The [facility] SystemComment on above:Performed By: #### CBC #### [facility] [address] [place] [address] Dr. Phillip MazariegosWBC7.3 103/ulNormal4.0-11.0The [facility] SystemComment on above: Performed By: #### CBC #### [facility] [address] [place] [address] Dr. Phillip MazarieogsPROF CHEM 8 (BAS METB)on 41-45-1806Lnpvc gap [Moles/Vol]11.7 mmol/LNormalThe [facility] SystemComment on above:Performed By: #### TSH, BMP #### [facility] [address] [place] [address] Dr. Phillip aMzariegosCalcium [Mass/Vol]8.8 mg/dLNormal8.5-10.1The [facility] Comment on above:Performed By: #### TSH, BMP #### [facility] [address] [place] [address] Dr. Phillip MazariegosChloride [Moles/Vol]103 mmol/JCucgjz26-854Xtw [facility] Comment on above:Performed By: #### TSH, BMP #### [facility] [address] [place] [address] Dr. Phillip MazariegosCO2 [Moles/Vol]28.0 mmol/TEsmqhs53.0-32.0The [facility] Comment on above:Performed By: #### TSH, BMP #### [facility] [address] [place] [address] Dr. Phillip MazariegosCreatinine [Mass/Vol]1.02 mg/dLNormal0.55-1.02The [facility] SystemComment on above:Performed By: #### TSH, BMP #### [facility] [address] [place] [address] Dr. Phillip MarreroGFR-AF HUNGARIAN>60Normal>=60The [facility] SystemComment on above:Performed By: #### TSH, BMP #### [facility] [address] [place] [address] Dr. Phillip MarreroGFR-NON AF MFOJNSTY29 mL/min/1.80k1Tinhbshzzr low>=60The [facility] SystemComment on above:Performed By: #### TSH, BMP #### [facility] [address] [address] [address] Phillip MazariegosGlucose [Mass/Vol]119 mg/dLCritically ckpg95-517Fdg [facility] SystemComment on above:Performed By: #### TSH, BMP #### [facility] [address] [place] [address] Dr. Phillip MazariegosPotassium [Moles/Vol]3.7 mmol/LNormal3.5-5.1The [facility] Comment on above:Performed By: #### TSH, BMP #### [facility] [address] [place] [address] Dr. Phillip MazariegosSodium [Moles/Vol]139 mmol/JDduftv112-330Ajo [facility] Comment on above:Performed By: #### TSH, BMP #### [facility] [address] [place] [address] Dr. Phillip MazariegosUrea nitrogen [Mass/Vol]19.0 mg/dLCritically high7.0-18.0The [facility] SystemComment on above:Performed By: #### TSH, BMP #### [facility] [address] [place] [address] Dr. Phillip Valdivia nitrogen/Creatinine [Mass ratio]18.6 mg/mgNoMercy Health Clermont HospitalComment on above:Performed By: #### TSH, BMP #### [facility] [address] [place] [address] Dr. Phillip Harrison 57-07-8093SJW0.616 uIU/mLNormal0.358-3.740The [facility] SystemComment on above:Performed By: #### TSH, BMP #### [facility] [address] [place] [address] Dr. Phillip Blanca [facility] BELOWEast Liverpool City HospitalComment on above: Result Comment: <0.34 UIU/ml HYPERTHYROID 0.34-5.60 UIU/ml EUTHYROID >5.60 UIU/ml HYPOTHYROIDPerformed By: #### TSH, BMP #### [facility] [address] [place] [address] Dr. Phillip Taylor (CLEAN/CATCH) PROCESSING SPECIALIST/MICRO IF IND.on 53-67-4825Vjzwsyspu Ql (U) NegativeNormalNEGATIVEKettering Health Greene Memorial HospitalComment on above:Performed By: #### UACSIND ####[facility] Ozeabatnux[address] [place], [place] [address]Dr. Yilan ChangClarity (U)SL CLOUDYAbnormalCLEUniversity Hospitals Geauga Medical Center Comment on above:Performed By: #### UACSIND ####[facility] Jikkgdtpav[address] [place], [place] [address]Dr. Yilan ChangColor (U)YELLOWNormalYELLOW [facility] HospitalComment on above:Performed By: #### UACSIND ####[facility] Sjwcufqtqp[address] [place], [place] [address]Dr. Yilan Mazariegos Glucose Ql (U)NegativeNormalNEGATIVEKettering Health Greene Memorial HospitalComment on above: Performed By: #### UACSIND ####[facility] [address]ltnlhelhr[address] [place], [place] [address]Dr. Yilan ChangHemoglobin Ql (U)NegativeNormalNEGATIVE [facility] HospitalComment on above:Performed By: #### UACSIND ####[facility] Pehczyxmog[address] [place], [place] [address]Dr. Yilan Mazariegos Ketones Ql (U)NegativeNormalNEGATIVEPromedica Defiance Regional HospitalComment on above: Performed By: #### UACSIND ####[facility] [address]xsfbifaqi[address] [place], [place] [address]Dr. Yilan ChangLEUKOCYTESNegativeNormalNEGATIVEKettering Health Greene Memorial HospitalComment on above:Performed By: #### UACSIND ####[facility] Kubbyjxkip3[address] [place], [place] [address]Dr. Yilan Mazariegos Nitrite Ql (U)NegativeNormalNEGATIVEKettering Health Greene Memorial HospitalComment on above: Performed By: #### UACSIND ####[facility] Xyxkvzefcx[address] [place], [place] [address]Dr. Yilan ChangpH (U)6.0 [pH]Normal5-9[facility] HospitalComment on above:Performed By: #### UACSIND ####[facility] [address] [address]Dr. Phillip MazariegosSPEC GRAVITY >=1.329Fmcdzwpm2.005-<=1.025The [facility] SystemComment on above:Performed By: #### UACSIND ####[facility] [address] [address]Dr. Phillip Taylor PROTEINNegativeNormalNEGATIVE/ TRACEThe [facility] Township HospitalComment on above:Performed By: #### UACSIND ####[facility] [address] [address]Dr. Phillip MazariegosUR MICRO IND INDICATEDEast Liverpool City HospitalComment on above:Performed By: #### UACSIND ####[facility] Izfwavrfup[address] [place], [place] [address]Dr. Phillip Polkbilinogen Qn (U)0.2 {Trish'U}/dLNormal0.2 - 1.0The [facility] SystemComment on above:Performed By: #### UACSIND ####[facility] Lvkimpgmve[address] [place], [place] [address]Dr. Phillip Finn MICROSCOPIC ONLYon 63-03-6035OLKHARSHQCJPLHmwizyguIVPK SEENPromedica Defiance [facility] Comment on above:Performed By: #### UMICRO #### [facility] [address] [place] [address] Dr. Phillip Pemberton identified Cx Nom (U)German HospitalComment on above:Performed By: #### UMICRO #### [facility] [address] [address] [address] Pihllip Jean-Baptiste SEENNormalNONE SEENPromedica Defiance Regional HospitalComment on above:Performed By: #### UMICRO #### [facility] [address] [address] [address] Phillip Trivediystals LM Nom (Urine sed)NONE SEENNormalNONE SEENPromedica Defiance Regional HospitalComment on above:Performed By: #### UMICRO #### [facility] [address] [address] [address] Fisher ChangEpithelial cells LM Ql (Urine sed)FEWAbnormalNONE SEEN /RAREThe [facility] Health SystemComment on above:Performed By: #### UMICRO #### [facility] [address] [address] [address] Phillip MazariegosMUCOUSTRACEAbnormalNONE SEENThe [facility] SystemComment on above:Performed By: #### UMICRO #### [facility] [address] [address] [address] Phillip MazariegosRBCNONE SEENAbrmal0-2The [facility] SystemComva medical center on above: Performed By: #### UMICRO #### [facility] [address] [address] [address] Phillip MazariegosWBC0-2AbnormalNONE SEENThe [facility] SystemComment on above: Performed By: #### UMICRO #### [facility] [address] [place] [address] Dr. Phillip MazariegosXR CHEST 2 Von [id number] CHEST 2 VEXAM: XR CHEST 2 V EXAM: XR CHEST 2 V INDICATION: 65 years old Female Dyspnea COMPARISON: 03/14/20 FINDINGS: The cardiac silhouette is normal. There is no pulmonary edema. The lungs are clear. There is no pneumonia. There is no pneumothorax. There is no abnormal foreign body.pacer noted IMPRESSION: There is no acute abnormality. Electronically authenticated by: ELAINA ARRIAZA Date: 2021-09-07 15:03[facility] HospitalRadiologyon 17-89-8803SC Chest 2 ViewsNormalMP-[facility]-[place] 320 DO Work Phone: Laboratory - Chemistry and Chemistry - challengeon 56-43-6915Illrs gap [Moles/Vol]11 mmol/L10 - 20MP-[facility] 250 DO Work Phone: Calcium [Mass/Vol]9.3 mg/dL8.6 - 10.3MP-[facility] 250 DO Work Phone: Chloride [Moles/Vol]107 mmol/L98 - 107MP-[facility] 250 DO Work Phone: [phone] [Moles/Vol]27 mmol/L21 - 32MP-[facility] 250 DO Work Phone: [phone] [Mass/Vol]0.79 mg/dLSee BelowMP-[place] [address] DO Work Phone: [phone] on above:Reference Range: 0.50 - 1.05Glucose [Mass/Vol]98 mg/dL74 - 99MP-[place] [address] DO Work Phone: [phone] [Moles/Vol]3.7 mmol/L3.5 - 5.3MP-[place] [address] DO Work Phone: [phone] [Moles/Vol]141 mmol/L136 - 145MP-[place] [address] DO Work Phone: [phone] nitrogen [Mass/Vol]20 mg/dL6 - 23MP-[place] [address] DO Work Phone: Laboratory - Coagulationon 26-24-8733gJZF Coag (PPP) [Time]32 s26 - 39MP-[place] [address] DO Work Phone: Comment on above:THE APTT IS NO LONGER USED FOR MONITORING UNFRACTIONATED HEPARIN THERAPY. FOR MONITORING HEPARIN THERAPY, USE THE HEPARIN ASSAY.INR Coag (PPP) [Relative time]1.0 {INR}0.9 - 1.1MP-[place] [address] DO Work Phone: PT Coag (PPP) [Time]11.9 s9.8 - 13.4MP-[place] [address] DO Work Phone: Laboratory - Hematology and Cell countson 08-02-2021 Erythrocyte distribution width (RBC) [Ratio]13.3 %See Below-[place] [address] DO Work Phone: Comment on above:Reference Range: 11.5 - 14.5 Hematocrit (Bld) [Volume fraction]37.9 %See BelowProv[facility] 250 DO Work Phone: Comment on above:Reference Range: 36.0 - 46.0 Hemoglobin (Bld) [Mass/Vol]12.7 g/dLSee [facility]-[place] 250 DO Work Phone: Comment on above:Reference Range: 12.0 - 16.0MCHC (RBC) [Mass/Vol]33.5 g/dLSee BelowProvidence Holy Family Hospital [facility]-[place] 250 DO Work Phone: Comment on above:Reference Range: 32.0 - 36.0MCV (RBC) [Entitic vol]88 fL80 - 100[facility] 250 DO Work Phone: Platelets (Bld) [#/Vol]168 10*3/uL150 - 450[facility] 250 DO Work Phone: RBC (Bld) [#/Vol]4.33 {x10E12/L}See [facility]-[place] 250 DO Work Phone: Comment on above:Reference Range: 4.00 - 5.20WBC (Bld) [#/Vol]7.3 10*3/uL4.4 - 11.3MSaint [facility]-[place] 250 DO Work Phone: No Panel Informationon 08-02-2021 [email or web address]?[email or web address]?Patien lYI=[id number]&Da te=02-08-2021&Time=07%3a58%3a03%3a00&TestType=ECG&Site=11&OutputType=PDF&Ext=PDF [facility] 250 DO Work Phone: [phone]-paerht ventricular-paced rhythmProvidence Holy Family Hospital [facility]-[place] 250 DO Work Phone: BedcqvyuAL-[place] [facility]-[place] 250 DO Work Phone: [phone] 1MP-[facility]-[place] 250 DO Work Phone: [phone] 1M-[facility]-[place] 250 DO Work Phone: [phone] 1M-[facility]-[place] 250 DO Work Phone: [phone] [facility]-[place] 250 DO Work Phone: [phone] [facility]-[place] 250 DO Work Phone: [phone] 1M-[facility] 250 DO Work Phone: [phone] 1M-[facility] 250 DO Work Phone: [phone] 1M-[facility]-[place] 250 DO Work Phone: [phone] [facility]-[place] 250 DO Work Phone: [phone] [facility]-[place] 250 DO Work Phone: [phone] [facility]-[place] 250 DO Work Phone: [phone] [facility]-[place] 250 DO Work Phone: [phone] [facility]-[place] 250 DO Work Phone: [phone] [facility]-[place] 250 DO Work Phone: [phone] {mL/min/1.73m2}>90MP-[facility]-[place] 250 DO Work Phone: Comment on above:CALCULATIONS OF ESTIMATED GFR ARE PERFORMED USING THE 2020 CKD-EPI STUDY REFIT EQUATION WITHOUT THERACE VARIABLE FOR THE IDMS-TRACEABLE CREATININE METHODS.https://jasn.asnjournals.org/content//ASN.[email or web address] Radiologyon 15-93-2948NZ Chest 2 ViewsNormalMP-[facility]-[place] 250 DO Work Phone: [phone]-15 SOFIAOrdered By: Daphne Mayes on 07-31-2021 SARS-CoV+SARS-CoV-2 (COVID-19) Ag IA.rapid Ql (Resp)NegativeNegativeSelect Medical Specialty Hospital - CantonComment on above:This is a duplicate Gretchen SARS Antigen (RUSTAM) result to be used for statistical tracking purpose only.No Panel InformationOrdered By: Daphne Mayes on 74-72-4425ODZW Antigen (LFIA)[facility] - CantonBasophils Auto (Bld) [#/Vol]Ordered By: Daphne Mayes on 78-00-0581Qzeqkcmwk (Bld) [#/Vol]0.0 10*3/uL0.0-0.2FBlanchard Valley Health System Bluffton HospitalBasophils/100 WBC Auto (Bld)Ordered By: Daphne Mayes on 07-18-2021 Basophils/100 WBC (Bld)0.5 %[facility] - CantonBlood hemoglobin measurement (mass/volume)Ordered By: Daphne Mayes on 97-77-7471Rztuugrzff (Bld) [Mass/Vol]13.2 g/dL11.8-15.4FBlanchard Valley Health System Bluffton HospitalBljohnson memorial hospital and home leukocytes automated count (number/volume)Ordered By: Daphne Mayes on 20-41-9153SGR (Bld) [#/Vol]6.3 10*3/uL4.5-11.0[facility] Hospital - CantonCOVID-19 Positive/NegativeOrdered By: Daphne Mayes on 22-88-2534HNEJ-CoV-2 (COVID-19) N gene MELL+probe Ql (Resp)PositiveNegativeSelect Medical Specialty Hospital - CantonComment on above:Positive results will only be called to Providers for the following groups of patients: Pre-Surgical Testing, Emergency Room, and Inpatients.Testing for SARS-CoV-2 by RT-PCRThis test was developed and its performance characteristics determined by [employer] ([employer]) and validated at the [facility]. This test has not been FDA cleared [...] rate.predicted panel (S/P/Bld)Ordered By: Daphne Mayes on 80-17-0007Ayljtpbupq [Mass/Vol]0.76 mg/dL0.44-1.03[facility] Hospital - CantonEosinophils Auto (Bld) [#/Vol]Ordered By: Daphne Mayes on 32-32-3196Qszihtlgont (Bld) [#/Vol]0.2 10*3/uL0.0-0.45[facility] Hospital - CantonEosinophils/100 WBC Auto (Bld) Ordered By: Daphne Mayes on 60-20-1851Qbzizujazsx/100 WBC (Bld)2.7 %[facility] Hospital - CantonErythrocyte distribution width Auto (RBC) [Ratio]Ordered By: Daphne Mayes on 71-15-6485Ermdgxvgwcc distribution width (RBC) [Ratio]14.1 % 11.9-15.3FBlanchard Valley Health System Bluffton HospitalEstimated glomerular filtration rate (GFR) non- AmericanOrdered By: Daphne Mayes on 88-69-0443XYK/1.73 sq M.predicted among non-blacks MDRD (S/P/Bld) [Vol rate/Area]> 60 mL/MinSelect Medical Specialty Hospital - CantonHematocrit Auto (Bld) [Volume fraction]Ordered By: Daphne Mayes on 26-54-5775Wqjjyiuxan (Bld) [Volume fraction]39.3 %34.0-46.4FBlanchard Valley Health System Bluffton HospitalLaboratory - CoagulationOrdered By: Daphne Mayes on 70-72-6123LK Coag (PPP) [Time]12.7 s9.0-12.9[facility] Laboratory - Hematology and Cell countsOrdered By: Daphne Mayes on 07-18-2021 Nucleated RBC/100 WBC (Bld) [Ratio]0.2 %0-0.5FBlanchard Valley Health System Bluffton Hospital Lymphocytes Auto (Bld) [#/Vol]Ordered By: Daphne Mayes on 72-21-0217Ntxcelwmcsu (Bld) [#/Vol]1.8 10*3/uL1.00-4.8[facility] Hospital - CantonLymphocytes/100 WBC Auto (Bld)Ordered By: Daphne Mayes on 75-61-9774Dgltwddpsmw/100 WBC (Bld)28.3 %[facility] ClinicH Auto (RBC) [Entitic mass]Ordered By: Daphne Mayes on 21-97-1462NSJ (RBC) [Entitic mass]29.3 pg24.7-34.3FBlanchard Valley Health System Bluffton HospitalMCHC Auto (RBC) [Mass/Vol]Ordered By: Daphne Mayes on 29-75-4942EQDM (RBC) [Mass/Vol]33.5 g/dL32.0-35.0[facility] Hospital - CantonMCV Auto (RBC) [Entitic vol]Ordered By: Daphne Mayes on 14-75-8760VPJ (RBC) [Entitic vol] 87.5 mZ83-906EgddiwtjxSelect Medical Specialty Hospital - CantonMonocytes Auto (Bld) [#/Vol] Ordered By: Daphne Mayes on 86-51-1522Dcucydddw (Bld) [#/Vol]0.5 10*3/uL0.0-0.8 [facility] Hospital - CantonMonocytes/100 WBC Auto (Bld)Ordered By: Daphne Mayes on 29-83-4603Toseyiend/100 WBC (Bld)7.5 %[facility] Neutrophils Auto (Bld) [#/Vol]Ordered By: Daphne Mayes on 63-69-0527Lfpyjnzyjzr (Bld) [#/Vol]3.9 10*3/uL1.8-7.7FBlanchard Valley Health System Bluffton HospitalNeutrophils/100 WBC Auto (Bld)Ordered By: Daphne Mayes on 39-63-9367Dmkgvzjvcuy/100 WBC (Bld)61.0 % [facility] - CantonNo Panel InformationOrdered By: Daphne Mayes on 56-16-0640Ifrfauhcl GFR ()> 60 mL/MinSelect Medical Specialty Hospital - CantonComment on above:GFR estimated reference range: According to KDOQI guidelines, <60 ml/min/1.73m2 is sufficient todiagnose a patient with chronic kidney disease.Pharmacy Creatinine Clearance (ChemN/AFBlanchard Valley Health System Bluffton HospitalPlatelet mean volume Auto (Bld) [Entitic vol]Ordered By: Daphne Mayes on 33-26-8941Oqzncxky mean volume (Bld) [Entitic vol]8.5 fL6.3-10.7FBlanchard Valley Health System Bluffton HospitalPlatelet poor plasma international normalized ratio (INR) by coagulation assay (relatOrdered By: Daphne Mayes on 17-42-2081REV Coag (PPP) [Relative time]1.1 {INR}[facility] Hospital - CantonComment on above:INR Therapeutic Range A) Pre- and [...] Auto (Bld) [#/Vol]Ordered By: Daphne Mayes on 97-35-1116Afomrnzfq (Bld) [#/Vol]282 10*3/sE713-307GzfhtrstqSelect Medical Specialty Hospital - CantonRBC Auto (Bld) [#/Vol]Ordered By: Daphne Mayes on 73-83-3810LSV (Bld) [#/Vol]4.49 10*6/uL3.60-5.00St. Charles Hospitalerum or plasma calcium measurement (mass/volume)Ordered By: Daphne Mayes on 01-87-9752Ncsloir [Mass/Vol]9.3 mg/dL8.2-10.2FMercy Health St. Charles Hospitalerum or plasma chloride measurement (moles/volume)Ordered By: Daphne Mayes on 35-00-7098Rayuoyrd [Moles/Vol]103 mmol/K55-358RubbkuexwSt. Charles Hospitalerum or plasma glucose measurement (mass/volume)Ordered By: Daphne Mayes on 46-59-3352Yifyraz [Mass/Vol]118 mg/jS44-149NoatuzeomSelect Medical Specialty Hospital - Canton Comment on above:ADA recommended reference rangeRandom Glucose Reference Range is dependent on time and content of last meal. Glucose of more than 200 mg/dL in a nonstressed, ambulatory subject supports the diagnosisof Diabetes Mellitus. Serum or plasma potassium measurement (moles/volume)Ordered By: Daphne Mayes on 44-55-8618Eszlagjjy [Moles/Vol]3.9 mmol/L3.5-5.1FMercy Health St. Charles Hospitalerum or plasma sodium measurement (moles/volume)Ordered By: Daphne Mayes on 08-99-6368Fzxxnh [Moles/Vol]139 mmol/P169-275AxdzuttdqSelect Medical Specialty Hospital - Canton Serum or plasma total carbon dioxide measurement (moles/volume)Ordered By: Daphne Mayes on 71-22-6916CJ7 [Moles/Vol]26.2 mmol/L22.0-30.0St. Charles Hospitalerum or plasma urea nitrogen measurement (mass/volume)Ordered By: Daphne Mayes on 18-56-3357Pper nitrogen [Mass/Vol]16 mg/dL9-23[facility] - CantonCBCon 51-35-6598Ysyhbjinyph distribution width (RBC) [Ratio]13.4 %Normal 11.5 - 14.5Saint [facility] Hospital at DenvilleComment on above:Performed By: #### CBC #### [address] [id number] (Bld) [Volume fraction]41.9 %Zuzniv07.0 - 46.0[facility] at DenvilleComment on above:Performed By: #### CBC #### [address] [id number] (Bld) [Mass/Vol]13.3 g/eRPldzst29.0 - 16.0[facility] at DenvilleComment on above:Performed By: #### CBC #### [address] [id number] (RBC) [Mass/Vol]31.7 g/dLLow32.0 - 36.0[facility] at DenvilleComment on above:Performed By: #### CBC #### [address] [id number] (RBC) [Entitic vol]91 fGOaosre87 - 100UH [facility] Medical CenterComment on above:Performed By: #### CBC #### [address] [id number] (Bld) [#/Vol]205 10*3/lDUpgbcj219 - 450UH [facility] CenterComment on above:Performed By: #### CBC #### [address] [id number] (Bld) [#/Vol]4.62 x10E12/LNormal4.00 - 5.20[facility] at DenvilleComment on above:Performed By: #### CBC #### [address] [id number] (Bld) [#/Vol]7.4 10*3/uLNormal4.4 - 11.3[facility] at DenvilleComment on above:Performed By: #### CBC #### [address] [id number] 58-82-1618Dfbyoejfph [Mass/Vol]0.77 mg/dLNormal 0.50 - 1.05[facility] Medical CenterComment on above:Performed By: #### CREAT #### [address] [id number] [Mass/Vol]mg/dLNormal>60[facility] Medical CenterComment on above:Result Comment: CALCULATIONS OF ESTIMATED GFR ARE PERFORMED USING THE MDRD STUDY EQUATION FOR THE IDMS-TRACEABLE CREATININE METHODS. CLIN CHEM 2007;53:766-72Performed By: #### CREAT #### [address] [id number] PANELon 37-41-4040Eanpx gap [Moles/Vol]12 mmol/L Opwcsf30 - 20[facility] at DenvilleComment on above:Performed By: #### ELECT #### [address] [id number] [Moles/Vol]107 mmol/DFepegc29 - 107[facility] at DenvilleComment on above:Performed By: #### ELECT #### [address] [id number] (Bld) [Moles/Vol]28 mmol/SIonrpg50 - 32[facility] at DenvilleComment on above:Performed By: #### ELECT #### [address] [id number] [Moles/Vol]3.7 mmol/LNormal3.5 - 5.3[facility] Medical CenterComment on above:Performed By: #### ELECT #### [address] [id number] [Moles/Vol]143 mmol/UUuyhiw411 - 145[facility] at DenvilleComment on above:Performed By: #### ELECT #### [address] [id number] NITROGENon 94-76-6017Bwxi nitrogen [Mass/Vol]17 mg/dL Normal6 - 23[facility] at DenvilleComment on above:Performed By: #### UREA #### [address] [id number] 44-15-7231BPZWTVPNsmad Visit (CARDMN) NYA BELL ([id number]) 1955 F Date Time Provider Department 11/13/18 7:00 AM 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 The patient was unavailable and I left a voicemail to return my call at her convenience. Aba Rodriguez [facility] November 13, 2018 2:31 PM Referring Provider: JONA WAN [[id number]] Allergies As of Date: 11/13/2018 Noted Allergy [...] FOR* Encounter Status:Closed by ABA WILLIAM on 11/13/18[facility] [id number] ID: [id number] Author: Aba Rodriguez [facility] Service: ? Author Type: ? Type: [...] my call at her convenience. Aba Rodriguez [facility] November 13, 2018 2:31 [facility] CentervelandCoding Summary.on 78-35-2123Toervr Summary.CODING DATE: 07/02/2017 FINAL [facility] STATUS: Home (Routine DC) PAYOR: Medicare [...] By: Rosa Stubbs Date Saved: 07/02/2017 08:19 [facility] Vital Signs Date TimeVital SignValuePerforming DypgpqrxcWrroerzy19-61-8485 10:170400Body .22 cmAnupam Pereira MD Work Phone: [facility]10-03-2025 10:17-0400 Body mass index (BMI) [Ratio]37.6 kg/f8BfdqkvAnupam Pereira MD Work Phone: [facility]10-03-2025 10:17-0400 Body vxbdym69.91 kgAnupam Pereira MD Work Phone: [facility]10-03-2025 10:17-0400 Diastolic blood qeflfqfo81 mm[Hg]Anupam Pereira MD Work Phone: [phone]10-03-2025 10:17-0400 Heart rate80 /minAnupam Pereira MD Work Phone: [facility]10-03-2025 10:17-0400 Systolic blood menikdsu641 mm[Hg]Anupam Pereira MD Work Phone: [phone]08-29-2025 13:06-0400 Body fmuuyo314.22 cmAnupam Pereira MD Work Phone: [phone] [address]08-29-2025 13:06-0400 Body mass index (BMI) [Ratio]38 kg/r8YomppnAnupam Pereira MD Work Phone: [phone] [address]08-29-2025 13:06-0400 Body kyjgvrkmkql03 [degF]Anupam Pereira MD Work Phone: [phone] [address]08-29-2025 13:06-0400 Body wxxmek11.82 kgAnupam Pereira MD Work Phone: [phone] [address]08-29-2025 13:06-0400 Diastolic blood bredjpck07 mm[Hg]Anupam Pereira MD Work Phone: [phone] [address]08-29-2025 13:06-0400 Heart rate77 /Briana Pereira MD Work Phone: [phone] [address]08-29-2025 13:06-0400 Respiratory rate14 /Briana Pereira MD Work Phone: [phone] [address]08-29-2025 13:06-0400 SaO2% (BldA) [Mass fraction]95 %Anupam Pereira MD Work Phone: [phone] [place], [place] 1586408-29-2025 13:06-0400 Systolic blood ornmuxxf086 mm[Hg]Anupam Pereira MD Work Phone: [phone]06-04-2025 10:07-0400 Body wptswy322.4 cmLupe Rosado MD Work Phone: [facility]06-04-2025 10:07-0400 Body mass index (BMI) [Ratio]38.08 kg/y1MecyaoLupe Rosado MD Work Phone: [facility]06-04-2025 10:07-0400 Body .45 kgLupe Rosado MD Work Phone: [facility]06-04-2025 10:07-0400 Diastolic blood xbffypus82 mm[Hg]Lupe Rosado MD Work Phone: [facility]06-04-2025 10:07-0400 Heart rate60 /Gigi Rosado MD Work Phone: [facility]06-04-2025 10:07-0400 Systolic blood mm[Hg]Lupe Rosado MD Work Phone: [address] [employer], [place] 0173103-24-2025 08:43-0400 Body gsdufg803.22 cmAnupam Pereira MD Work Phone: [phone] [address]03-24-2025 08:43-0400 Body mass index (BMI) [Ratio]39.4 kg/q1MoidflAnupam Pereira MD Work Phone: [phone] [address]03-24-2025 08:43-0400 Body ebywsn18.7 kgAnupam Pereira MD Work Phone: [phone] [place], [place] 2961703-24-2025 08:43-0400 Diastolic blood iymylmtc82 mm[Hg]Anupam Pereira MD Work Phone: [phone] [address]03-24-2025 08:43-0400 Heart rate70 /Briana Pereira MD Work Phone: [phone]03-24-2025 08:43-0400 Respiratory rate16 /Briana Pereira MD Work Phone: [phone] [address]03-24-2025 08:43-0400 SaO2% (BldA) [Mass fraction]99 %Anupam Pereira MD Work Phone: [phone] [address]03-24-2025 08:43-0400 Systolic blood qdsilpvi859 mm[Hg]Anupam Pereira MD Work Phone: [phone]02-10-2025 13:25-0500 Body botrkq085.22 cmAnupam Pereira MD Work Phone: [phone] [place], [place] 1586402-10-2025 13:25-0500 Body mass index (BMI) [Ratio]39.9 kg/w0EovkahAnupam Pereira MD Work Phone: [phone]02-10-2025 13:25-0500 Body yrahew94.9 kgAnupam Pereira MD Work Phone: [phone] [place], [place] 1586402-10-2025 13:25-0500 Diastolic blood duxxfwfd69 mm[Hg]Anupam Pereira MD Work Phone: [phone] [place], [place] 1586402-10-2025 13:25-0500 Heart rate76 /minAnupam Pereira MD Work Phone: [phone]02-10-2025 13:25-0500 Systolic blood mm[Hg]Anupam Pereira MD Work Phone: [phone] [place], [place] 1586402-06-2025 10:24-0500 Body mneozh286.4 cmLupe Rosado MD Work Phone: [facility]02-06-2025 10:24-0500 Body mass index (BMI) [Ratio]38.55 kg/a3OfcfffLupe Rosado MD Work Phone: [facility]02-06-2025 10:24-0500 Body .54 kgLupe Rosado MD Work Phone: [facility]02-06-2025 10:24-0500 Diastolic blood dvtcswke43 mm[Hg]Lupe Rosado MD Work Phone: [phone] [place], [place] 4393902-06-2025 10:24-0500 Heart rate82 /minLupe Rosado MD Work Phone: [facility]02-06-2025 10:24-0500 Systolic blood pqivpotq991 mm[Hg]Lupe Rosado MD Work Phone: [facility]01-27-2025 11:36-0500 Body kljqba953.22 cmSelect [facility]01-27-2025 11:36-0500Body mass index (BMI) [Ratio]39.7 kg/r1LxxssnkyfSelect Medical Specialty Hospital - Canton01-27-2025 11:36-0500Body euohir37.59 kgSelect Medical Specialty Hospital - [facility]on01-27-2025 11:36-0500Diastolic blood tnzlagoh77 mm[Hg][facility] 05-31-2024 11:36-0500Heart rate65 /[facility] 05-31-2024 11:36-0500Respiratory rate16 /[facility] 05-31-2024 11:36-7037YyX0% (BldA) [Mass fraction]98 %[facility]01-27-2025 11:36-0500Systolic blood vagplnxv120 mm[Hg][facility]10-29-2024 10:53-0400Body vespzu441.13 cmSelect Medical Specialty [facility] - [facility]10-29-2024 10:53-0400Body mass index (BMI) [Ratio]38.7 kg/m2 [facility]10-29-2024 10:53-0400Body .45 kg [facility]10-29-2024 10:53-0400Diastolic blood zcucrdgz14 mm[Hg][facility]10-29-2024 10:53-0400Heart rate78 /min [facility]10-29-2024 10:53-0400Systolic blood gfimadxb263 mm[Hg][facility]08-19-2024 13:59-0400Body kolswt607.13 cm[facility]2024 13:59-0400Body mass index (BMI) [Ratio]39.5 kg/b5SiefwgwbfSelect [facility] [place]08-19-2024 13:59-0400Body tgrkkdobyvd46.6 [degF][facility]08-19-2024 13:59-0400Body mvqvym18.37 kg[facility]-2024 13:59-0400Heart rate 95 /[facility]08-19-2024 13:59-0400Respiratory rate18 /[facility]08-19-2024 13:59-3216DuM3% (BldA) [Mass fraction]97 %[facility]07-16-2024 10:43-0400Body height 152.4 cmLupe Rosado MD Work Phone: 1(964)[address] [place], [place] 4393907-16-2024 10:43-0400 Body mass index (BMI) [Ratio]37.5 kg/d1VndqcaLupe Rosado MD Work Phone: 1(168)[address]07-16-2024 10:43-0400 Body vexeix72.09 kgLupe Rosado MD Work Phone: 1(372)[address]07-16-2024 10:43-0400 Diastolic blood cigtvkca21 mm[Hg]Lupe Rosado MD Work Phone: 1(944)[address]07-16-2024 10:43-0400 Heart rate76 /Gigi Rosado MD Work Phone: 1(744)[address] [place], [place] 4393907-16-2024 10:43-0400 Systolic blood fjuwjiky063 mm[Hg]Lupe Rosado MD Work Phone: 1(239)[address]04-26-2024 10:30-0400 Body iisrcs679.4 cmDaphne Mayes MD Work Phone: 1(535)[address] [place], [place] 0730704-26-2024 10:30-0400 Body mass index (BMI) [Ratio]37.5 kg/m2Daphne Mayes MD Work Phone: 1(139)[address] [place], [place] 0730704-26-2024 10:30-0400 Body .09 kgDaphne Mayes MD Work Phone: 1(579)[address] [place], [place] 0730704-26-2024 10:30-0400 Diastolic blood sqrvxpki47 mm[Hg]Daphne Mayes MD Work Phone: 1(968)[address] [place], [place] 0730704-26-2024 10:30-0400 Heart rate64 /Jesus Mayes MD Work Phone: [facility]04-26-2024 10:30-0400 Systolic blood igdowspy715 mm[Hg]Daphne Mayes MD Work Phone: [facility]01-24-2024 11:30-0500 Body .13 cmAnupam Pereira Other [place] [employer] Other 01-24-2024 11:30-0500Body mass index (BMI) [Ratio] 37.33 kg/k0Khpaow Pereira Other [facility] [employer] Other 01-24-2024 11:30-0500Body .28 kgAnupam Pereira Other [facility] Other 01-24-2024 11:30-0500Diastolic blood emhugrrd52 mm[Hg] Anupam Pereira Other [employer] Other 01-24-2024 11:30-0500Systolic blood irrrxija556 mm[Hg] Anupamlamine Pereira Other [employer] Other 01-08-2024 13:32-0500Body qagnfw463.4 cmLupe Rosado MD Work Phone: [facility]01-08-2024 13:32-0500 Body mass index (BMI) [Ratio]37.3 kg/g7YlbspiLupe Rosado MD Work Phone: [facility]01-08-2024 13:32-0500 Body .64 kgLupe Rosado MD Work Phone: [facility]01-08-2024 13:32-0500 Diastolic blood dyivnhht43 mm[Hg]Lupe Rosado MD Work Phone: 1(440)414-[address] [place], [place] 4393901-08-2024 13:32-0500 Heart rate62 /minLupe Rosado MD Work Phone: 1(635)964-[address] [place], [place] 4393901-08-2024 13:32-0500 Systolic blood pupidwme040 mm[Hg]Lupe Rosado MD Work Phone: 4(060)958-[address] [place], [place] 4393910-24-2023 10:10-0400 Body ydjmzn323.4 cmTraci Gibbs-Ellacott FACSIMILE MACHINE OPERATOR-APPLICATIONS CONSULTANT Work Phone: 6(259)605-[address] [place], [place] 0730710-24-2023 10:10-0400 Body mass index (BMI) [Ratio]37.69 kg/m6Fouhp Gibbs-Ellacott FACSIMILE MACHINE OPERATOR-APPLICATIONS CONSULTANT Work Phone: 3(996)[address]10-24-2023 10:10-0400 Body .54 kgTraci Gibbs-Ellacott FACSIMILE MACHINE OPERATOR-APPLICATIONS CONSULTANT Work Phone: 3(813)120-[address] [place], [place] 0730710-24-2023 10:10-0400 Diastolic blood mm[Hg]Lynn Gibbs-Ellacott FACSIMILE MACHINE OPERATOR-APPLICATIONS CONSULTANT Work Phone: 3(560)090-[address] [place], [place] 0730710-24-2023 10:10-0400 Heart rate74 /minTraci Sai-Ellacott FACSIMILE MACHINE OPERATOR-APPLICATIONS CONSULTANT Work Phone: 9(839)946-[address] [place], [place] 0730710-24-2023 10:10-0400 Systolic blood mm[Hg]Lynn Sai-Ellaconatalie FACSIMILE MACHINE OPERATOR-APPLICATIONS CONSULTANT Work Phone: 3(365)895-[address] [place], [place] 0730709-07-2023 13:15-0400 Body .13 cmAnupam Pereira Other [employer] Other 09-07-2023 13:15-0400Body mass index (BMI) [Ratio] 38.05 kg/b7MfismxAnupam Pereira Other [employer] Other 09-07-2023 13:15-0400Body bppahi46.91 kgAnupam Randall Other [employer] Other 09-07-2023 13:15-0400Diastolic blood gymqocki64 mm[Hg] Anupam Pereira Other [employer] Other 09-07-2023 13:15-0400Systolic blood rozvlcqd873 mm[Hg] Anupam Pereira Other [employer] Other 08-29-2023 14:15-0400Body .13 cmRossymichelle Pereira Other [employer] Other 08-29-2023 14:15-0400Body mass index (BMI) [Ratio] 38.32 kg/s0UzapgdAnupam Pereira Other [employer] Other 08-29-2023 14:15-0400Body yoiafrmukly17.9 [degF]Anupam Pereira Other [employer] Other 08-29-2023 14:15-0400Body thglus16.54 kgAnupam Randall Other [employer] Other 08-29-2023 14:15-0400Diastolic blood hrudigdd85 mm[Hg] Anupam Pereira Other [employer] Other 08-29-2023 14:15-0400Systolic blood snuouukd560 mm[Hg] Anupam Pereira Other [employer] Other 08-22-2023 10:45-0400Body qaubby333.13 cmAnupam Pereira Other [employer] Other 08-22-2023 10:45-0400Body mass index (BMI) [Ratio] 38.52 kg/k2DlhnrnAnupam Pereira Other [facility] [employer] Other 08-22-2023 10:45-0400Body xwmyfk48 kgJulianamichael Pereira Other [place] [employer] Other 08-22-2023 10:45-0400Diastolic blood axcfuilm84 mm[Hg] Anupam Pereira Other [place] [employer] Other 08-22-2023 10:45-0400Systolic blood kqejaclt684 mm[Hg] Anupam Pereira Other [place] [employer] Other 06-07-2023 10:59-0400Body xzdubd904.4 cmAnupam Pereira Work Phone: mp717-5574LT-Csmbo [place] [employer] DO Work Phone: 1(683) 561-914506-07-2023 10:59-0400Body mass index (BMI) [Ratio] 39.26 kg/q5FvrysxAnupam Pereira Work Phone: mp982-4399XA-Rlivr [place] [employer] DO Work Phone: 1(679) 396-451906-07-2023 10:59-0400Body surface area Derived from formula1.87 t0IsrwzpAnupam Pereira Work Phone: mp753-2061UD-Vfidx [place] [employer] DO Work Phone: 1(170) 177-659406-07-2023 10:59-0400Body jmwcub98.17 kgAnupam Pereira Work Phone: mp653-9999DY-Xhreu [place] [employer] DO Work Phone: 1(358) 477-654806-07-2023 10:59-0400Diastolic blood qtoohxzn09 mm[Hg] Anupam Pereira Work Phone: mp509-4601AH-Oqevm [place] [employer] DO Work Phone: 1(612) 810-100506-07-2023 10:59-0400Heart rate72 /minAnupam Pereira Work Phone: mp222-4241NX-Uvrxq [place] [employer] DO Work Phone: 1(149) 494-272806-07-2023 10:59-0400Systolic blood mm[Hg] Anupam Pereira Work Phone: mp906-4859YZ-Lecms [place] [employer] DO Work Phone: 1(793) 268-912801-17-2023 15:30-0500Body rmdzuo543.13 cmAnupam Pereira Other [employer] Other 01-17-2023 15:30-0500Body mass index (BMI) [Ratio] 40.11 kg/l6AicqqdAnupam Pereira Other [employer] Other 01-17-2023 15:30-0500Body rnztoa83.63 kgAnupam Pereira Other [facility] Other 01-17-2023 15:30-0500Diastolic blood mm[Hg] Anupam Pereira Other [employer] Other 01-17-2023 15:30-5016PdK8% (BldA) [Mass fraction]97 % Anupam Pereira Other [facility] Other 01-17-2023 15:30-0500Systolic blood yhdbmljc611 mm[Hg] Anupam Pereira Other [employer] Other 12-14-2022 11:16-0500Body tailco642.4 cmAnupam Pereira Work Phone: mp399-5820HJ-Pathl [place] [employer] DO Work Phone: 1(655) 365-551412-14-2022 11:16-0500Body mass index (BMI) [Ratio] 39.32 kg/q5QhogczAnupam Pereira Work Phone: mp365-7796GY-Matjh [place] [facility] DO Work Phone: 1(705) 468-481212-14-2022 11:16-0500Body surface area Derived from formula1.87 f5NipdsuAnupam Pereira Work Phone: mp580-2206DL-Nrntd [place] [facility] DO Work Phone: 1(985) 520-203512-14-2022 11:16-0500Body ubcqua34.31 kgAnupam Pereira Work Phone: 1(697) [phone]-Kclgs [place] [facility] DO Work Phone: 1(385) 725-388912-14-2022 11:16-0500Diastolic blood mm[Hg] Anupam Pereira Work Phone: mp237-8167QS-Lnptz [place] [facility] DO Work Phone: 1(565) 179-560212-14-2022 11:16-0500Heart rate62 /minAnupam Pereira Work Phone: 1(965) [phone]-Crfur [place] [facility] DO Work Phone: 1(388) 748-935812-14-2022 11:16-0500Systolic blood yxaljoqh151 mm[Hg] Anupam Pereira Work Phone: mp108-0676YW-Sykzt [place] [facility] DO Work Phone: 1(342) 191-606406-07-2022 13:20-0400Body yjnsxf692.4 cmAnupam Pereira Work Phone: mp169-0591VD-Igxpi [place] [facility] DO Work Phone: 1(231) 470-254606-07-2022 13:20-0400Body mass index (BMI) [Ratio] 40.23 kg/n2BxeymlAnupam Pereira Work Phone: mp146-4627NZ-Rupmc [place] [facility] DO Work Phone: 1(768) 413-604206-07-2022 13:20-0400Body surface area Derived from formula1.89 n6XwssitAnupam Pereira Work Phone: mp880-3301KE-Zuzup [place] [facility] DO Work Phone: 1(030)430-27255-439184-97821049-71-8592 13:20-0400Body .44 kgAnupam Pereira Work Phone: mp441-5579AF-Bkljf [facility] DO Work Phone: 1(582)660-77217-366054-65638887-36-6329 13:20-0400Diastolic blood mm[Hg] Anupam Pereira Work Phone: 1(165) [phone]-Opzfo [place] [facility] DO Work Phone: 1(831)[phone] 13:20-0400Heart rate68 /minAnupam Pereira Work Phone: 1(662) [phone]-Sbtwx [place] [facility] DO Work Phone: 1(958) 498-561206-07-2022 13:20-0400Systolic blood mviyfkwf435 mm[Hg] Anupam Pereira Work Phone: 1(157) [phone]-OlxldSt. [facility] DO Work Phone: 1(161)479-452-071235-61 13:20-437136 1Mgreer Pereira Work Phone: 1(554) [phone]-Vocjy [place] [facility] DO Work Phone: Comment on above:PHQ-9 PQ98-57-0422 15:58-0400Body khrxed276.4 cmAnupam Pereira Work Phone: 1(919) [phone]-SipmvSt. [facility] 250 DO Work Phone: 1(161)767-88576-363962-81713183-22-9630 15:58-0400Body mass index (BMI) [Ratio] 41.21 kg/f1SdgzybAnupam Pereira Work Phone: 1(479) 313-7798408-9864MG-Urpqa [place] [facility] DO Work Phone: 1(267)[phone]-7194 15:58-0400Body surface area Derived from formula1.91 h7HmhzpxAnupam Pereira Work Phone: mp392-4189IE-Dkqkk [place] [facility] DO Work Phone: 1(292) 553-289804-07-2022 15:58-0400Body aedisyinynx82 [degF]Anupam Pereira Work Phone: mp203-0459EI-Munhc [place] [facility] DO Work Phone: 1(385) [phone] 15:58-0400Body mhtejw26.71 kgAnupam Pereira Work Phone: mp110-9949GD-Psdvl [place] [facility] DO Work Phone: 1(178) 247-479004-07-2022 15:58-0400Diastolic blood wuqkgifk65 mm[Hg] Anupam Pereira Work Phone: mp645-8970BY-Bagyo [place] [facility] DO Work Phone: 1(865) 737-674704-07-2022 15:58-0400Heart rate82 /minAnupam Pereira Work Phone: mp316-4107OI-Srlxv [place] [facility] DO Work Phone: 1(411) 270-703804-07-2022 15:58-0400Systolic blood pimofhrc555 mm[Hg] Anupam Pereira Work Phone: mp156-9289QE-Akskd [place] [facility] DO Work Phone: Encounters Encounter DateEncounter TypeCare ProviderFacilityStart: 03-10-2025 End: 28-87-8358Byiyvlb encounter procedureLupe Denney MD [facility]-Pacemaker CheckStart: 03-10-2025 End: 19-26-5038chkbmsqiwtCbcdef E Braun MD Work Phone: [phone]-Dyasrrszr CheckStart: 77-32-7664Rkh-patient / Non-visitMPretty Harper-Heart Rhythm ClinicStart: 02-04-2025 End: 29-56-7187stmjuusymfWaumfi E Braun MD Work Phone: [facility] Work Phone: Start: 02-04-2025 End: 83-35-8496Bhkvhxn encounter procedureAnupam Pereira MD-[facility] Work Phone: Start: 12-31-2024 End: 86-66-1258buuafrmuayIdfkkb E Braun MD Work Phone: [facility] Work Phone: Start: 12-31-2024 End: 08-47-5112Nrxtokh encounter procedureAnupam Pereira MD-[facility] Work Phone: Start: 12-09-2024 End: 62-68-0864vnsixvspnqJmmlbr [facility] CenterFac[facility] Hospitaltart: 47-30-0304Aoc-patient / Non-visitShea Gaspar [facility]-Heart Rhythm ClinicStart: 10-06-2024 End: 38-49-0018svbiimwonbBWDBGK M [facility] AmbulatoryStart: 10-06-2024 End: 59-84-0932Ijymhd outpatient visit 25 minutesLupe Rosado MD Work Phone: [facility] HealthComment on above:Nonischemic cardiomyopathy (Multi) (Primary Dx); ICD (implantable cardioverter-defibrillator) in place; Obstructive sleep apnea syndrome in adult; Never smoked cigarettes; BMI 38.0-38.9,adult; Class 2 obesity; Other fatigueStart: 09-03-2024 End: 08-74-6697uhpmjeijauTdaptg E Braun MD Work Phone: [facility] Work Phone: Start: 09-03-2024 End: 89-95-4825Fiixxwj encounter Enma Pereira MD Work Phone: [facility]-Pacemaker CheckStart: 65-68-2174Dpu-patient / Non-visitAnupam Pereira MD Work Phone: [facility]-Heart Rhythm ClinicStart: 08-03-2024 End: 99-29-3349dvckjxijgnCmvzur E Braun MD Work Phone: [facility] Work Phone: Start: 08-03-2024 End: 56-82-9582Ipzlbgz encounter Enma Pereira MD Work Phone: [facility]-MRI [facility] [place] Work Phone: Start: 07-26-2024 End: 75-31-0866ssmmnhddrfXopfkt E Braun MD Work Phone: [facility] Work Phone: Start: 07-26-2024 End: 58-97-9803Wwakuee encounter procedureAnupam Pereira MD Work Phone: [facility] Work Phone: Start: 07-12-2024 End: 97-93-8053Ttvrxyw encounter procedureAnupam Pereira MD Work Phone: [facility]-Lab [facility] [place] Work Phone: Start: 07-12-2024 End: 87-81-7730dmzikkbcesYknarj E Braun MD Work Phone: [facility] Work Phone: Start: 06-14-2024 End: 15-91-8290lxtwisbzymKrwyxk E Braun MD Work Phone: [facility] Work Phone: Start: 06-14-2024 End: 89-60-1922Utyhrum encounter procedureAnupam Pereira MD Work Phone: [facility] Work Phone: Start: 06-10-2024 End: 25-64-1876Iuqqjk outpatient visit 25 minutesLupe Rosado MD Work Phone: [facility] HealthComment on above:ICD (implantable cardioverter-defibrillator) in place (Primary Dx); Chronic systolic congestive heart failure; Fatigue, unspecified type; Obstructive sleep apnea syndrome in adult; Never smoked cigarettes; BMI 38.0-38.9,adult; Class 2 obesityStart: 06-10-2024 End: 19-17-0019feiucijwshTRXSPC M IBRFalls [facility] AmbulatoryStart: 18-14-3133Yru-patient / Non-visitMarcia Pereira MD Work Phone: [facility] Work Phone: Start: 06-03-2024 End: 85-19-4165Trhgfhl encounter procedureAnupam Pereira MD Work Phone: [facility]-Pacemaker CheckStart: 06-03-2024 End: 54-89-4052zxqkmxyavsUbaxjm E Braun MD Work Phone: [facility] Work Phone: Start: 32-72-0363Naf-patient / Non-visitAnupam Pereira MD Work Phone: [facility]-Heart Rhythm ClinicStart: 05-31-2024 End: 02-11-7061mvmiccyogsTgmpnwxemLake [facility] Work Phone: Start: 05-31-2024 End: 75-94-3293Vtstijj encounter procedureAtrium Health Physician Group-[facility] Work Phone: Start: 05-20-2024 End: 40-86-5883eztusfghslJVGHYL M [facility] Miamisburgtart: 88-57-6190Csx-patient / Non-visitAnupam Pereira MD Work Phone: [facility] Work Phone: Start: 44-11-2430Fmy-patient / Non-visitFirelands Physician Group-[facility] Work Phone: Start: 75-17-0152Kcv-patient / Non-visitFirhardaways Physician Group-Heart Rhythm ClinicStart: 03-02-2024 End: 66-26-6281ijsambfilvXcvkqnivuLake County Memorial Hospital [facility] Work Phone: Start: 03-02-2024 End: 43-36-9654Lxytshx encounter procedureAtrium Health Physician Group-[facility] Work Phone: Start: 03-01-2024 End: 40-74-4340Mharwfuzfo hospital visit by physicianEly [facility] 2 [facility] RockiesComment on above:ICD (implantable cardioverter- defibrillator) in placeStart: 03-01-2024 End: 70-95-6610zlxjchhezrCWZV J QUANSelect [facility] Start: 12-22-2023 End: 92-66-3848aqgdotrcpsZlcanbfwlSuburban [facility] Work Phone: Start: 12-22-2023 End: 55-45-7762Mqqzmlp encounter procedureAtrium Health Physician Group-[facility] Work Phone: Start: 12-02-2023 End: 12-77-8146cojahocauhOA Marcia E Braun Work Phone: [facility] Work Phone: Start: 12-02-2023 End: 58-43-1811Dpogghk encounter procedureMD Anupam Pereira Work Phone: [facility]-Pacemaker CheckStart: 66-75-4781Ifp-patient / Non-visitFirwinchester medical center [facility] Start: 11-18-2023 End: 44-76-4938Xnvenb outpatient visit 25 minutesLupe Rosado MD Work Phone: uh Atrium HealthComment on above:Cardiomyopathy, unspecified type (Multi); Chronic systolic congestive heart failure (Multi); ICD (implantable cardioverter-defibrillator) in place; Obstructive sleep apnea syndrome in adult; Fatigue, unspecified type; Never smoked cigarettes; Class 2 obesity without serious comorbidity with body mass index (BMI) of 37.0 to 37.9 in adult, unspecified obesity typeStart: 11-18-2023 End: 21-19-2724kllxefdmyyIXVJMO M IBRFalls Community Hospital and Clinic AmbulatoryStart: 08-29-2023 End: 33-60-8749ngxthordnhGWCQZOPremier Health [facility] Southtart: 08-29-2023 End: 01-36-8030Fvddky outpatient visit 25 minutesDaphne Mayes MD Work Phone: [address] [place], [place] [address]Comment on above:ICD (implantable cardioverter-defibrillator) in place (Primary [...] and counseling; Encounter to discuss treatment optionsStart: 61-91-8582Jbvbgl outpatient visit 15 minutesAnupam PereiraMarietta Memorial Hospitaltart: 05-28-2023 End: 09-84-1224ovujftaoxjVC Marcia E Braun Work Phone: [place] [employer] Other Start: 05-28-2023 End: 23-11-7750Yurkcyx encounter procedureMD Anupam Pereira Work Phone: [facility]-Pacemaker CheckStart: 05-20-2023 End: 54-66-6028zujbcqhgtxHfdbof Braun Other [employer] Other Start: 66-01-8065Ihwowoqje encounterAnupam RandallMarietta Memorial Hospitaltart: 05-12-2023 End: 59-96-0752Yzwjjm outpatient visit 25 minutesLupe Rosado MD Work Phone: [facility] HealthComment on above:Cardiomyopathy, unspecified type (CMS/HCC) (Primary Dx); ICD (implantable cardioverter-defibrillator) in place; Obstructive sleep apnea syndrome in adult; Class 2 obesity without serious comorbidity with body mass index (BMI) of 37.0 to 37.9 in adult, unspecified obesity typeStart: 05-08-2023 End: 46-31-6339Pfmului encounter procedureMD Anupam Pereira Work Phone: [facility] Work Phone: Start: 02-25-2023 End: 45-44-8973Wvngzi outpatient visit 25 minutesLynn Jorgensen APRN-APPLICATIONS CONSULTANT Work Phone: [facility] CenterComment on above:ICD (implantable cardioverter-defibrillator) in place (Primary Dx); Morbid obesity (CMS/HCC); Chronic systolic congestive heart failure (CMS/HCC); Cardiomyopathy, unspecified type (CMS/HCC); Dyspnea on exertion; Obstructive sleep apnea syndrome in adult; Other fatigueStart: 01-09-2023 End: 91-00-8527ezfynaqdluQratrr Braun Other [employer] Other Start: 61-47-1377Nkdakc outpatient visit 15 minutes Anupam [facility] ClinicStart: 12-31-2022 End: 90-07-9303cjpluibebsPhfugh Braun Other [employer] Other Start: 22-38-9807Btvbmu outpatient visit 15 minutes Anupam [facility] ClinicStart: 12-24-2022 End: 14-38-9535fbxhvoojvcHzmzmg Braun Other [employer] Other Start: 43-75-7640Pizpcs outpatient visit 15 minutes Anupam Hernandez [facility] ClinicStart: 12-20-2022 End: 86-42-4114wgfxhartstBirfvo Braun Other [employer] Other Start: 03-13-6648Fssrbjvzh encounterMarcia Yudy David [facility] ClinicStart: 12-16-2022 End: 33-87-9304ravaiyoahzNhpszy Braun Other [employer] Other Start: 55-38-9700Dlmbdgekn encounterMarmichael Jimenes [facility] ClinicStart: 11-28-2022 End: 29-92-6317nykvingaleJZ Anupam Pereira Work Phone: [facility] Work Phone: Start: 11-28-2022 End: 52-52-0396Xezggwl encounter procedureMD Anupam Pereira Work Phone: [facility]-Pacemaker CheckStart: 61-36-5269cgdqxwjdpfHj. Lupe RosadoFacility:9844Start: 10-09-20[address] Lupe VanceimFacility:[id number]: 24-13-0225Kpgomq outpatient visit 25 minutesAnupam Pereira Work Phone: [phone]-Ntcfh [place] [facility] DO Work Phone: Start: 83-18-1350gdbtcmulsjSx. Anupam Pereira Facility:[id number]: 08-28-2022 End: 65-86-8433ueldfnzqjfJY Marcia E Braun Work Phone: [facility] Work Phone: Start: 08-28-2022 End: 60-54-9516Jbrzlch encounter procedureMD Anupam Pereira Work Phone: [facility]-Pacemaker CheckStart: 48-98-2307qntahfavuyXt. Lupe Readcility:9844Start: 08-15-2022 End: 13-82-8606iqmufkfzulPAPOUUMNABCR LAKSHMIPATHY .Facility:Z5Gtedm: 07-17-20[address] Lupe RosadoFacility:9844Start: 07-16-2022 End: 51-59-0756uftacvpiyjSH ANUPAM Morgancility:H9Isqqc: 80-58-0732Jotydzltl for preprocedural cardiovascular examinationDR JANICE IRVING .[facility] Hospitaltart: 07-09-2022 End: 26-38-5801rdnawnebvkTL MARCIA E BRAUNFacility:B4Vgemw: 07-09-2022 End: 76-98-9463Xomsnaway for preprocedural cardiovascular examinationDR ANUPAM PEREIRAFacility:P5Yjeni: 06-20-2022 End: 60-60-6016lzmoejqkfnXK MARCIA E BRAUNFacility:J0Vtiqq: 06-04-2022 End: 33-16-6134rsysdnwasdSZ MARCIA E BRAUNFacility:H7Bctvl: 05-23-2022 End: 81-01-2295wncmqydcdiUW MARCIA E [employer] Other Start: 78-81-7485Sdfpfjrvi encounterAnupam Jimenes [facility] ClinicStart: 05-21-2022 End: 37-60-7801yinhujtzvfLM MARCIA E [employer] Other Start: 77-18-6367Hqhlyo outpatient visit 15 minutes Anupam Jimenes [facility] ClinicStart: 05-17-2022 End: 41-85-8852ovyojjqdfmTNZack Pereira Work Phone: [facility] Work Phone: Start: 05-17-2022 End: 34-44-9886Ghotxpy encounter procedureMD Anupam Pereira Work Phone: [facility]-Pacemaker CheckStart: 05-07-2022 End: 05-10-4197ryhhsvsnvhFH MARCIA E BRAUNFacility:H3Zzbhc: 04-23-2022 End: 18-29-6964edonhkczjdCDNessa PEREIRAFacility:L8Ucbaf: 87-09-7495Pzwagl outpatient visit 25 minutesAnupam Pereira Work Phone: [phone]) [phone]-Vhest [facility] [address] DO Work Phone: Start: 36-89-5747xqwpdrzafbJqDr. Lupe Rosado Facility:[id number]: 04-09-2022 End: 61-07-8322rzvlwzkwomNANessa PEREIRAFacility:O2Uurmn: 45-40-5440qcoaxxztxwcindy PereiraFacility:9090Start: 02-12-2022 End: 34-07-0243dqvpvckkqoZZJusto Pereira Work Phone: [facility] Work Phone: Start: 02-12-2022 End: 88-12-8480Cmpwdds encounter procedureMD Anupam Pereira Work Phone: [facility]-Pacemaker CheckStart: 02-04-2022 End: 32-42-2511sojtznjjaiJL MARCIA E BRAUNFacility:G5Jhzoh: 93-98-1716xccdraimlj Dr. Anupam PereiraFacility:[id number]: 11-07-2021 End: 48-39-7170Xwkqkql encounter procedureMD Anupam Pereira Work Phone: [facility]-Pacemaker CheckStart: 11-06-2021 End: 99-09-8684voohjozcplLE HASSAN M IBRAHIMFacility:X0Rhoyo: 71-49-3561Bqzxwp outpatient visit 25 minutesAnupam Pereira Work Phone: [phone]-Gvxjm [facility] [address] DO Work Phone: Start: 09-07-2021 End: 51-27-0149fblxisqhttUR MARCIA E BRAUNFacility:V8Knnrq: 24-85-0535Vmlpj UpdateAnupam Pereira Work Phone: [phone]-Snodq [facility] [address] DO Work Phone: Start: 47-48-0628Sx RenewalAnupam Pereira Work Phone: [phone]-Mbrex [facility] [address] DO Work Phone: Start: 12-81-9217Ifdvxg follow up visit related to original Stefani Pereira Work Phone: [phone]-Wdbwb [facility] DO Work Phone: Start: 07-31-2021 End: 76-51-1192Vcebbwz encounter procedure Anupamlamine Pereira Work Phone: [facility] COVID TestingStart: 46-13-7096GXOPFNrtzft E Braun Work Phone: [phone]-Vkthu [facility] 3 DO Work Phone: Start: 07-18-2021 End: 53-50-7017Ujbnuqw encounter procedureMD Anupam Randall Work Phone: [facility] SwabStart: 88-40-9577PdmlqdkEzrjga E Braun Work Phone: [phone]-Fxxtg [facility] 320 DO Work Phone: Start: 07-04-2021 End: 55-05-7586Mlamrfq encounter procedureMD Anupam Pereira Work Phone: [facility]-Pacemaker CheckStart: 31-87-4167VZDJAOxynre E Braun Work Phone: [phone]-Yoory [facility] 320 DO Work Phone: Start: 04-60-4754Qp Layton Pereira Work Phone: [phone]-Nonmi [facility] 320 DO Work Phone: Start: 07-01-2017 End: 11-53-7673WhzormyrqlOpjpvv V HampoleFacility:[facility]DPatient encounter status Anupam Pereira Work Phone: [phone]-Tizdd [facility] 320 DO Work Phone: End: 61-36-3417Kqpbogb encounter statusAnupam Pereira Work Phone: [phone]-Qsiyt [facility] 250 DO Work Phone: Procedures DateProcedureProcedure DetailPerforming ClinicianStart: 22-95-6836UTN of right wristAnupam Pereira MD Work Phone: Start: 89-08-7273XG pre/post mri xrJay Pereira MD Work Phone: Start: 18-88-1509Uqjvan eval implantable in person multi lead Nadiya Mayes MD Work Phone: Start: 56-92-1550Bnzak metabolic 2000 panel - Serum or PlasmaMARCIA BRAUNStart: 35-35-5297Vai routine ecg w/least 12 lds w/i&rKmelanie Mayes MD Work Phone: Start: 72-88-9090KPJR Antigen (LFIA)MD Anupam Pereira Work Phone: Start: 18-10-2345Tkyymbgnl mammographyRossya Randall Other Insertion of pulse generator of implantable cardioverter defibrillatorRossya E Randall Work Phone: Ligation of fallopian tubeAnupam E Randall Work Phone: Total colonoscopyJulianacia E Randall Work Phone: Comment on above:05May2008; Plan of Treatment DateCare ActivityDetailAuthorStart: 38-73-1870WHgV/Tdap/Td Vaccines (2 - Td or Tdap)DTaP/Tdap/Td Vaccines (2 - Td or Tdap)[facility] Start: 05-18-2025 End: 29-61-7944Xxcfkml encounter mupujbdzg66/14/2026 10:10 AM EST Office Visit [address] [place] [address] Lupe Rosado MD [address] [place] [address] 2, [place] [address] [place] [address] [facility]: 22-74-5878Wtqsfjopx vaccinationInfluenza Vaccine (Season Ended)[facility]: 10-06-2024 End: 54-25-0123Yagmeqn encounter dyqtmwoup96/04/2025 9:40 AM EDT Office Visit [address] [place] [address] Lupe Rosado MD [address] [place] [address] 2, [address] [place] [address] [facility] Systemart: 46-59-6527Gaivtuctxz measurementCreatinine LevelWilson Memorial Hospital: 51-23-7998Vncbupqlz measurement Potassium [facility]: 53-44-5350YbvglqossSt. Charles Hospitaltart: 06-10-2024 End: 84-93-4386Irqettd encounter ggwadhufo07/06/2025 10:30 AM EST Office Visit [facility] [address] [facility] [address] [place] [address] Lupe Rosado MD [address], [address] [place] [address] [facility]: 05-20-2024 End: 85-72-5733Ztsrf metabolic 2000 panel - Serum or PlasmaBasic Metabolic Panel Lab Routine Cardiomyopathy, unspecified type (Multi) Chronic systolic congesti ve heart failure (Multi) Expected: 05/20/2024 (Approximate), Expires: 11/17/2024 [facility] Service Area Work Phone: Comment on above:Expected: 05/20/2024 (Approximate), Expires: 11/17/2024Start: 04-06-2024 End: 40-82-4149Afujwxa encounter /03/2024 11:00 AM EST Office Visit [facility] [address] [facility] [address] [place] [address] Daphne Mayes MD [address] [facility] [address], [address] [place] [address] [facility] Start: 02-28-2024 End: 57-72-2176Yaliron Device Check - In ClinicCardiac Device Check - In Clinic Implantable Cardiac Device Routine ICD (implantable cardioverter-defibrillator) in place Expected: 02/28/2024 (Approximate), Expires: 08/28/2024[facility] Service Area Work Phone: Comment on above:Expected: 02/28/2024 (Approximate), Expires: 08/28/2024Start: 02-20-2024 End: 30-44-3210Rptffqz encounter procedureComanche County Hospitaltart: 30-94-3891LHIEQ-19 Vaccine ( season)COVID-19 Vaccine ( season)[facility]: 55-87-6900Nnrxcboag vaccination [facility]: 91-60-5448GvlaxnuzmjzqgcevTgldvtnmhegzir [facility]: 11-18-2023 End: 87-90-3265Iommrcu encounter vhmesfdjd62/16/2024 10:40 AM EDT Office Visit [address] [place] [address] Lupe Rosado MD [address] [facility] 2, [address] [place] [address] [facility]: 08-29-2023 End: 96-25-2351Aojunhn encounter atbxwyzqf36/26/2024 10:20 AM EDT Office Visit [facility] [address] [facility] [address] [place] [address] Daphne Mayes MD [address] [facility] [address], [address] [place] [address] [facility] Start: 68-98-3160ODH, Provider: Lupe Rosado, Status: Pen, Time: 11:00 AMFUV, Provider: Lupe Rosado, Status: Pen, Time: 11:00 [facility] [place] 250 DO Work Phone: Start: 04-17-2023 End: 78-57-6569Wmijagy encounter jnmyafivg65/14/2023 11:00 AM EST Office Visit [address] [place] [address] Lupe Rosado MD [address] [facility] 2, [address] [place] [address] [facility]: 03-11-2023 End: 25-18-4280Lwhro metabolic 2000 panel - Serum or PlasmaBasic metabolic panel Lab Routine Chronic systolic congestive heart failure (CMS/HCC) Expected: 11/2022 (Approximate), Expires: 02/26/2024[facility] Service Area Work Phone: Comment on above:Expected: 03/11/2023 (Approximate), Expires: 02/26/2024Start: 36-33-9248ZMH, Provider: Daphne Mayes, Status: Pen, Time: 2:00 PMFUV, Provider: Daphne Mayes, Status: Pen, Time: 2:00 PMMP-[facility] [place] 250 DO Work Phone: Start: 76-20-0029Ddnjvlr encounter procedure FUVPACERENÉ, Provider: [facility], Status: Pen, Time: 1:00 PM[facility] 250 DO Work Phone: Start: 98-51-5908IKCPJ-19 Vaccine ( season) COVID-19 Vaccine ( season)[facility]: 02-43-8795Shmtgcymj vaccinationInfluenza Vaccine (#1)[facility]: 44-61-3917CHZD, Provider: KENDY [facility] ULTRASOUND 01,[id number], Status: Pen, Time: 10:45 AMECHO, Provider: K[facility]Y [facility] ULTRASOUND 01,[id number], Status: Pen, Time: 10:45 [facility] 250 DO Work Phone: Start: 19-57-5643SAS, Provider: Lupe Rosado, Status: Pen, Time: 10:40 AMFUV, Provider: Lupe Rosado, Status: Pen, Time: 10:40 AMMPHutchinson Health Hospitalusky 250 DO Work Phone: Start: 07-14-6093Vnhmizbbya measurementCreatinine LevelWilson Memorial Hospital: 22-54-9785Tbwievmxi measurement Potassium LevelWilson Memorial Hospital: 73-88-9368BVRY, Provider: KENDY [facility]VI ULTRASOUND 01,[id number], Status: Pen, Time: 9:45 AMECH, Provider: [facility] ULTRASOUND 01,[id number], Status: Pen, Time: 9:45 AM [facility] Work Phone: start: 12-68-0496DOOZ, Provider: KENDY [facility]VI ULTRASOUND 01,[id number], Status: Pen, Time: 2:30 PMECHO, Provider: K[facility]Y [facility] ULTRASOUND 01,[id number], Status: Pen, Time: 2:30 PMMP-[facility]- [place] 250 DO Work Phone: Start: 39-86-3199EZV, Provider: Lupe Rosado, Status: Pen, Time: 11:10 AMFUV, Provider: Lupe Rosado, Status: Pen, Time: 11:10 AM[facility] 250 DO Work Phone: Start: 26-00-8869AEX, Provider: Daphne Mayes, Status: Pen, Time: 3:20 PMFUV, Provider: Daphne Mayes, Status: Pen, Time: 3:20 PM[facility] 250 DO Work Phone: Start: 18-27-2352Bfmkzwr encounter procedure FUVPACEMKR, Provider: [facility],EMCPACEMKR, Status: Pen, Time: 2:20 [facility] Work Phone: Start: 02-48-3677SDAQMBUJ, Provider: PRABHJOT WALDRON REVENUE INSPECTOR 1,[id number], Status: Pen, Time: 2:30 PMNURSEVST, Provider: PRABHJOT WALDRON REVENUE INSPECTOR 1,[id number], Status: Pen, Time: 2:30 PM[facility] 250 DO Work Phone: start: 24-54-4955XJUC, Provider: KENDY [facility]VI ULTRASOUND 01,[id number], Status: Pen, Time: 1:30 PMECHO, Provider: KENDY [facility] ULTRASOUND 01,[id number], Status: Pen, Time: 1:30 [facility] 250 DO Work Phone: Start: 20-93-6982DOW, Provider: Lupe Rosado, Status: Pen, Time: 1:30 PMFUV, Provider: Lupe Rosado, Status: Pen, Time: 1:30 [facility] Work Phone: Start: 59-62-6138CII, Provider: Daphne Mayes, Status: Pen, Time: 2:20 PMFUV, Provider: Daphne Mayse, Status: Pen, Time: 2:20 PM[facility] 320 DO Work Phone: start: 85-55-9609Ytlxptv encounter procedure FUVPACEMKR, Provider: [facility],EMCPACEMKR, Status: Pen, Time: 1:20 PM[facility] 320 DO Work Phone: Start: 13-88-8145JXK CHANGE, Provider: [facility] WOOL SAMPLER 4,[id number], Status: Pen, Time: 12:30 PMICD CHANGE, Provider: [facility] WOOL SAMPLER 4,[id number], Status: Pen, Time: 12:30 [facility] 3 DO Work Phone: Start: 59-18-6342DLUSXQD, Provider: Daphne Mayes, Status: Pen, Time: 11:[address] [facility], Provider: Daphne Mayes, Status: Pen, Time: 11:00 [facility] 3 DO Work Phone: Start: 46-88-8323SQJ CHANGE, Provider: [facility] WOOL SAMPLER 4,[id number], Status: Pen, Time: 2:00 PMICD CHANGE, Provider: [facility] WOOL SAMPLER 4,[id number], Status: Pen, Time: 2:00 PM[facility] 320 DO Work Phone: Start: 29-27-6882KQQUVMB, Provider: Daphne Mayes, Status: Pen, Time: 11:[address] [facility], Provider: Daphne Mayes, Status: Pen, Time: 11:00 AM[facility] 320 DO Work Phone: Start: 79-08-6185SUX, Provider: Daphne Mayes, Status: Pen, Time: 8:40 AMFUV, Provider: Daphne Mayes, Status: Pen, Time: 8:40 AM[facility] 320 DO Work Phone: Start: 31-57-0619Ixprlia encounter procedure FUVPACEMMARIANO, Provider: [facility],EMCPGORDY, Status: Pen, Time: 7:40 AM[facility] 320 DO Work Phone: Start: 64-20-8574FNM High Risk: (Elderly (60+) or Population) (1 - Risk 60-74 years 1-dose series)RSV High Risk: (Elderly (60+) or Population) (1 - Risk 60-74 years 1-dose series)[facility]: 92-99-4913TGY patients and/or patients aged 60+ years (1 - 1-dose 60+ series)RSV patients and/or patients aged 60+ years (1 - 1-dose 60+ series)[facility]: 80-34-9217Dhcype Vaccines (1 of 2)Zoster Vaccines (1 of 2)[facility]: 16-16-3395Coatoxcvw for malignant neoplasm of breastMammogram [facility]: 36-87-2930KJkL/Tdap/Td Vaccines (1 - Tdap)DTaP/Tdap/Td Vaccines (1 - Tdap)[facility]: 95-58-9965Xurgswuhiiil vaccinationPneumococcal Vaccine (1 of 2 - PCV)[facility]: 51-97-8934Hxlnzkll mellitus screeningDiabetes ScreeningUnGreen Cross Hospital: 46-08-4794Weaxmqcoi C screening Hepatitis C ScreeningWilson Memorial Hospital: 1961 Pneumococcal Vaccine: 65+ Years (1 - PCV)Pneumococcal Vaccine: 65+ Years (1 - PCV)[facility]: 80-47-0675Twjdgwthjure Vaccine: 65+ Years (1 of 2 - PCV)Pneumococcal Vaccine: 65+ Years (1 of 2 - PCV)[facility]: 39-77-5441DXLQV-19 Vaccine (#1)COVID-19 Vaccine (#1)[facility]: 68-44-9461Dqbkw panelLipid Panel [facility]: 05-31-1955Medicare Annual Wellness Visit Medicare Annual Wellness Visit (AWV)[facility]: 21-48-2887Fnipobnka for malignant neoplasm of colonWilson Memorial Hospital: 97-31-1896Wgsnvtimq for osteoporosisBone Density ScanCorey Hospital End: 67-44-2504Wpzagrk Device Check - RemoteCardiac Device Check - Remote Implantable Cardiac Device Routine ICD (implantable cardioverter-defibrillator) in place 52 Occurrences starting 08/29/2023 until 02/28/2024[facility] Work Phone: Comment on above:52 Occurrences starting 08/29/2023 until 02/28/2024atient EducationLow back pain in adultsOhiohealth Southeastern Medical Center Work Phone: [facility] Immunizations Immunization DateImmunizationNotesCare VdmrdnljGigsoqtg01-21-5392sipvbzr toxoid, reduced diphtheria toxoid, and acellular pertussis vaccine, Lexus Rosado MD Work Phone: [facility] Payers DatePayer CategoryPayerPolicy [id number] 2024Self-pay [id number] Eligibility Medicare/Medicaid Organization [id number] Health InsuranceUNITED HEALTHCARE DUAL COMPLETE UNITED HEALTHCARE DUAL COMPLETE [id number] 2022-Present P Tamara Dailey [address] [place] [address] [id number] [id number] [id number] Health [id number] Health [id number] [id number] 2..1.665313.3.579.2.[id number] 2..1.619256.3.579.2.31315-53-3313Fvvgotn3998174 2..1.783618.3.579.2.27473-70-9134Bschsgf7749450 2.0.1.584017.3.579.2.22363-07-9788Iautvyz7415012 2.0.1.495945.3.579.2.65097-92-7860Gkwhwvg5320052 2.0.1.628907.3.579.2.05329-02-5648Tfjdpvl3605110 2.0.1.670404.3.579.2.44871-09-5820Upczyqv9837602 2.16.840.1.396312.3.579.2.29873-29-5119Cxekzsm3943140 2.16.840.1.988762.3.579.2.59161-47-9797Kjdyfaf2259792 2.16.840.1.021759.3.579.2.53655-06-7712Nctjgjw3777657 2.16.840.1.309125.3.579.2.84685-03-5369Xeyllob3932885 2.16.840.1.970469.3.579.2.01487-43-5164Bqtidgi9322582 2.16840.1.271412.3.579.2.30302-27-7428Ogqqpoc84006174 2.16840.1.666616.3.579.2.374262-89-4095Iiwwkzm78020981 2.16840.1.999722.3.579.2.524780-94-4231Dsllntg82548598 2.840.1.126187.3.579.2.139896-79-9725Gjwlmwo178346667 2.16840.1.350223.3.579.2.60137-86-0588Svodykt701746897 2.16840.1.560637.3.579.2.42317-90-2620Cchcqom461715641 2.16840.1.110574.3.579.2.79034-38-8740Ggyrjuu420725412 2.16840.1.335928.3.579.2.67106-69-3474Tneasrx289624221 2.16.840.1.917248.3.579.2.03308-17-1169Eiaakoo351954790 2.16840.1.693211.3.579.2.14955-18-8040Ljmxmpl81532779 2..1.937191.3.579.2.323326-14-3374Owihack01361742 2..1.328671.3.579.2.553182-00-9152Fgfpuwb501307156 2..1.446119.3.579.2.797673-03-9429Cseojmy764094755 2..1.384917.3.579.2.358354-73-9167Bsvogql320861438 2..1.582999.3.579.2.344149-14-3486Uzjeabv19277498 2..1.451[id number] Health [id number]-[id number]-m8044y574v22JkleoidFsgttpb96167918 2..1.799307.3.579.2.846Jnhcqye18271103 ..1.837502.3.579.2.531 Eexhrmo56017587 2..1.325381.3.579.2.074Ekswmcx69496907 2..1.359563.3.579.2.340Dcvwrtp50610249 2..1.663854.3.579.2.531 Cgatsea24168200 2..1.820765.3.579.2.531 Social History DateTypeDetailFacilityStart: 10-09-2021 End: 90-51-1828Wawdxuvf useCaffeine useUnFlower HospitalComment on above:1 1/2 daily (Pop);Start: 36-75-5823Jta [facility]: 10-09-2021 End: 52-21-4655Xaq Assigned At [facility] HospitalStart: 02-25-2023 End: 59-14-5927Pbafbeu smoking status NHISNever smoked tobaccoUnFlower Hospital Work Phone: Start: 16-87-6255Mxvyuxj use and exposureSmokeless tobacco non-userUnFlower Hospital Work Phone: Start: 49-43-0774Ftn Assigned At [facility]Not on file [facility] Work Phone: Start: 02-15-2023 End: 84-21-7042Etznnggo to SARS-CoV-2 (event)Not sureUnFlower HospitalStart: 08-29-2023 End: 07-39-9977Tvtwglctu beverage intakeLifetime non-drinker (finding)[facility] Work Phone: Start: 05-31-2024 End: 55-33-4784SbkDkbogv (finding)[facility] Functional Status YoceYlojkxshzvDydnmgFdzcywgo93-60-9743ZRR-4DGY5RAXEAF Moderate (10-14)[facility] 250 DO Work Phone: Clinical Notes 08-02-2021 to 12-31-2024 Note Date & PsikRfchOdxjmyax96-96-7230 Evaluation note* Diagnosis Onset Date Resolution Status Admit Date Bronchitis acuteAugust 2024 1:03pmHeart failureacuteAugust 2024 1:03pm Costovertebral (angle) tenderness, bilateralacuteOctober 2024 10:02amLumbar painacuteOctober 2024 10:02amUrinary frequencyacuteOctober 2024 10:02am [facility] Work Phone: 1(707) 693-443306-04-2025 History of Present illness Narrative* Lupe Rosado [...] AICD discharge. Continue [facility]with [facility]. Her weight remains above target and class [...] device is assessed by electrophysiology at [facility], last device check September 10, 2024 was available for review, it demonstrated no abnormalities and the data were sharedwith the patient 3-status post cardiac catheterization at [facility] was normal, this was back in [...] exam, discussion and plan. documented in this [facility] Work Phone: 1(356) 877-324606-04-2025 Instructions* Patient Instructions* cSarlet Loomis LPN - 10/06/2024 9:40 AM EDT [...] Same medications Follow up documented in this [facility] Work Phone: 1(334) 802-625402-10-2025 Evaluation note* Diagnosis Onset Date Resolution Status Admit Date Right wrist fracture acuteFebruary 2024 1:11pmAbnormal weight gainacuteMarch 2024 8:41am DepressionacuteMarch 2024 8:41amHeart failureacuteMarch 2024 8:41am Impaired fasting glucoseacuteMarch 2024 8:41amObesity, Class II, BMI 35-39.9acuteMarch 2024 8:41amObstructive sleep apneaacuteMarch 2024 8:41amOsteoarthritisacuteMarch 2024 8:41am [facility] Work Phone: 1(431) 557-278402-06-2025 History of Present illness Narrative* Lupe Rosado [...] device is assessed by electrophysiology at [facility] 3-cardiac catheterization 8 years ago at [facility] was normal 4-sleep apnea supposed [...] exam, discussion and plan. documented in this [facility] Work Phone: 1(723) 694-745802-06-2025 Instructions* Patient Instructions* Jyotsna Thayer LPN - [...] through Care Everywhere. * Heart Healthy Diet (Kyrgyz) documented in this [facility] Work Phone: 1(594) 100-428901-27-2025 Evaluation note* Diagnosis Onset Date Resolution Status Admit Date Depression acuteJanuary 2024 11:18amHeart failureacuteJanuary 2024 11:18am Impaired fasting glucoseacuteJanuary 2024 11:18amObesity, Class II, BMI 35-39.9acuteJanuary 2024 11:18amObstructive sleep apneaacuteJanuary 2024 11:18amOsteoarthritisacuteJanuary 2024 11:18am [facility] Work Phone: 1(661) 707-877701-27-2025 Evaluation note* Diagnosis Onset Date Resolution Status Admit Date Depression acuteJanuary 2024 11:18amHeart failureacuteJanuary 2024 11:18am Impaired fasting glucoseacuteJanuary 2024 11:18amObesity, Class II, BMI 35-39.9acuteJanuary 2024 11:18amObstructive sleep apneaacuteJanuary 2024 11:18amOsteoarthritisacuteJanuary 2024 11:18amRight wrist fracture acuteFebruary 2024 1:11pm [facility] Work Phone: 1(964) 952-404101-27-2025 Evaluation note* Diagnosis Onset Date Resolution Status [...] 8:41amObstructive sleep apneaacuteMarch 2024 8:41amOsteoarthritisacuteMarch 2024 8:41am [facility] Work Phone: 1(600) 205-182610-29-2024 Evaluation note* Diagnosis Onset Date Resolution Status Admit Date Depression acuteOctober 2023 10:47am [facility] Work Phone: 1(413) 861-615207-16-2024 History of Present illness Narrative* Lupe Rosado [...] device is assessed by electrophysiology at [facility] 3-cardiac catheterization 8 years ago at [facility] was normal 4-sleep apnea supposed [...] exam, discussion and plan. documented in [facility] Work Phone: 1(278) 567-518307-16-2024 Instructions* Patient Instructions* Scarlet Loomis LPN - [...] 6 months with lab documented in [facility] Work Phone: 1(536) 779-346504-26-2024 History of Present illness Narrative* Daphne Mayes [...] dictation application being used. documented in [facility] Work Phone: 1(503) 849-751504-26-2024 Instructions* Patient Instructions* Anel Samano RN - [...] MD, FACC, FACP, RS documented in this [facility]Corey [facility] Work Phone: 1(305) 244-975301-24-2024 Evaluation note* Encounter Date Diagnosis Assessment Notes Treatment Notes Treatment Clinical Notes 24 Ki, 2024 Influenza A (ICD-10 - J10.1) resolved. discussed symptomatic care May,cute bronchitis, unspecified organism (ICD-10 - J20.9)No further antibiotics or steroids indicated. Recommened conservative measures for help w laryngitis. May,ardiomyopathy as manifestation of underlying disease (ICD-10 - I43) Pt states she has appt today w her press tender. [employer] Other 01-08-2024 History of Present illness Narrative* Lupe Rosado MD - 05/12/2023 1:30 PM EST Subjective Nya Bell is a 67 y.o. female Chief Complaint Follow-up HPI Patient is in the office for follow-up for the problems noted below. She was in [place] recently and had flu syndrome which left her with significant bronchitis that was noted during today's visit. Her lab data from [place] was reviewed, cardiac enzymes were normal other [...] device is assessed by electrophysiology at [facility] 3-cardiac catheterization 8 years ago at [facility] was normal 4-sleep apnea supposed [...] of Lupe Rosado MD. documented in this [facility] Work Phone: 1(278) 371-690201-08-2024 Instructions* Patient Instructions* Africa Noland LPN - [...] follow up per routine documented in [facility] Work Phone: 1(712) 401-972510-24-2023 History of Present illness Narrative* Lynn Jorgensen, NATE-APPLICATIONS CONSULTANT - 02/25/2023 10:00 AM EDT CARDIOLOGY OFFICE VISIT CHIEF COMPLAINT Chief Complaint Patient presents with Device Check Routine check up HISTORY OF PRESENT ILLNESS HPI The patient is a 67-year-old female who is followed for nonischemic cardiomyopathy with a left ventricular ejection fraction improved to 60 to 65% per 2D echocardiogram dated November 22, 2022, [place] [employer] class II- III, stage C heart failure. She underwent implantation of a dual-chamber ICD for primary prevention of sudden cardiac and generator change out on August 02, 2021 for JRODON parameters. She presents to the office today [...] per 2D echocardiogram dated November 22, 2022, [place] [employer] class III, stage C heart failure. 2. Upgrade to an AV biventricular ICD on August 02, 2021 (Medtronic cobalt XT HF Quad TURBO ELECTRIC OPERATOR-D). Initial implant on January 25, 2015. 3. Valvular heart disease consisting of mild MR per 2D echocardiogram dated November 22, 2022. 4. Left heart catheterization in 2014 revealing normal coronaries at [facility]. 5. Obstructive sleep apnea, noncompliant [...] furosemide. 2. Obtain ICD checks per the [facility] device clinic as scheduled. Patient was instructed to obtain an in clinic device check at [facility] approximately 2 weeks prior to the office [...] to prepare this document. documented in this [facility] Work Phone: 1(955) 898-479510-24-2023 Instructions* Patient Instructions* ISAI Mora - 02/25/2023 10:00 AM EDT When taking the lasix, increase dietary potassium intake (orange juice, bananas, skin on potatoes) documented in this [facility] Work Phone: [phone] [id number] Evaluation note* Encounter Date Diagnosis Assessment Notes Treatment Notes Treatment Clinical Notes Jan, Bronchitis (ICD-10 - J40) Discussed diagnosis with patient. Patient to take antibiotic daily with food as prescribed. Finish entire course of antibiotic. Proair inhaler sent today for patient to use PRN cough/wheezing/shortness of breath. Yoai-zhw-gtpyijo antipyretics as needed. Warning signs and symptoms reviewed with patient today. Patient to go immediately to the ER should she experience any of these. Patient to notifyoffice should her symptoms persist and not improve. Patient verbalizes understanding and agrees to treatment plan. [employer] Other 08-29-2023 Evaluation note* Encounter Date Diagnosis Assessment Notes Treatment Notes Treatment Clinical Notes Dec, Bronchitis (ICD-10 - J40) Discussed diagnosis with patient. Finish entire course of antibiotic. Proair inhaler sent today forpatient to use PRN cough/wheezing/shortness of breath. Tessalon Pearles ordered to take as needed for cough. Increase fluids and rest. Xpcd-bzo-kyxtuto antipyretics as needed. Warning signs and symptoms reviewed with patient today. Patient to go immediately to the ER should she experience any of these. Patient to notify office should her symptoms persist and not improve. Patient verbalizes understanding and agrees to treatment plan. [employer] Other 08-22-2023 Evaluation note* Encounter Date Diagnosis Assessment Notes Treatment Notes Treatment Clinical Notes Dec, Acute pain of right shoulder (IC D-10 - M25.511) Check xray. Add meds for pain relief and muscle relaxation. Will call pt w xray results. Dec,hest congestion (ICD-10 - R09.89)Start w CXR and assess for pneumonia - will base treatment on CXR results later today. [employer] Other 02-16-2023 NoteCONSULTATION CONSULTATION DATE: 06/20/2022 HISTORY [...] be followed up in the office thereafter.[facility] [id number] NoteCONSULTATION CONSULTATION DATE: 05/23/2022 HISTORY OF PRESENT [...] be followed up in the clinic thereafter.[facility] [id number] Evaluation note* Encounter Date Diagnosis Assessment Notes Treatment Notes Treatment Clinical Notes May, Vitamin D deficiency (ICD-10 - E 55.9) [employer] Other 01-17-2023 Evaluation note* Encounter Date Diagnosis [...] - I43) Reviewed notes from her specialist [employer] Other 12-06-2022 NoteCONSULTATION CONSULTATION DATE: 04/09/2022 CHIEF [...] was encouraged to follow up with the press tender with regards to her pacemaker. The patient is looking to schedule herself with regards to a physical and blood work by Dr. Pereira. CC: Anupam Pereira M.D.[facility] [id number] NotePROCEDURE: XR FINGER MIN 2 VIEWS COMPARISON: None. HISTORY: Acquired deformity of right finger FINDINGS: BONES:Persistent flexion of the fourth finger. No acute fracture or dislocation SOFT TISSUES:Soft tissue swelling EFFUSION:None visible. OTHER: Negative. IMPRESSION: Soft tissue swelling, no acute fracture Electronically authenticated by: CECY CHRISTIAN Date: 2022-02-05 07:14[facility]03-31-2022 NoteElectrophysiology Procedure TestingPlease click on the link to view the study images (Normal)[facility] 250 DO Work Phone: 1(919) 910-142103-31-2022 NoteElectrophysiology Procedure Testing Please click on the link to view the study images (Normal)[facility] 250 DO Work Phone: 1(198) 802-889103-31-2022 NoteElectrophysiology Procedure Testing Please click on the link to view the study images (Normal)[facility] 3 DO Work Phone: 1(201) 286-634003-31-2022 NoteElectrophysiology Procedure Testing Please click on the link to view the study images (Normal)[facility] [place] 320 DO Work Phone: Chivv complaint+Reason for visit Narrative* Chief Complaint headache, back pain, sore throat, ear pain Memory ConcernsReason for VisitCOVID-19 [facility] Work Phone: Evaluation noteNo assessment information available [facility] Work Phone: Evaluation noteNo InformationNojefferson memorial hospital [employer] Other Evaluation note* Diagnosis ICD (implantable cardioverter-defibrillator) in place- Primary Morbid obesity (CMS/HCC) Morbid obesity Chronic systolic congestive heart failure (CMS/HCC) Cardiomyopathy, unspecified type (CMS/HCC) Dyspnea on exertion Other dyspnea and respiratory abnormality Obstructive sleep apnea syndrome in adult Other fatigue documented in this encounter [facility] Work Phone: Evaluation note* Diagnosis ICD [...] discuss treatment options documented in this encounter [facility] Work Phone: Evaluation note* Diagnosis Cardiomyopathy, unspecified type (CMS/HCC)- Primary ICD (implantable cardioverter-defibrillator) in place Obstructive sleep apnea syndrome in adult Class 2 obesity without serious comorbidity with body mass index (BMI) of 37.0 to 37.9 in adult, unspecified obesity type documented in this encounter [facility] Work Phone: Evaluation note* Diagnosis ICD (implantable cardioverter-defibrillator) in place documented in this encounter [facility] Work Phone: Evaluation note* Diagnosis Onset Date Resolution Status COVID-19 acute [facility] Work Phone: Evaluation note* Diagnosis Cardiomyopathy, unspecified type (Multi) Chronic systolic congestive heart failure (Multi) ICD (implantable cardioverter-defibrillator) in place Obstructive sleep apnea syndrome in adult Fatigue, unspecified type Never smoked cigarettes Class 2 obesity without serious comorbidity with body mass index (BMI) of 37.0 to 37.9 in adult, unspecified obesity type documented in this encounter [facility] Work Phone: Evaluation note* Diagnosis ICD (implantable cardioverter-defibrillator) in place- Primary Chronic systolic congestive heart failure Fatigue, unspecified type Obstructive sleep apnea syndrome in adult Never smoked cigarettes BMI 38.0-38.9,adult Class 2 obesity documented in this encounter [facility] Work Phone: Evaluation note* Diagnosis Nonischemic cardiomyopathy (Multi)- Primary Other primary cardiomyopathies ICD (implantable cardioverter-defibrillator) in place Obstructive sleep apnea syndrome in adult Never smoked cigarettes BMI 38.0-38.9,adult Class 2 obesity Other fatigue documented in this encounter [facility] Work Phone: History general Narrative - [...] of left shoulderMedical HistoryLeft shoulder painSurgical History pacemaker/ysycbnafxgfpd4178Jokxgsyo HistoryNASAL ILOJFAF05/2020Surgical History CARDIAC CATH/2013Surgical HistoryLUMBAR NEVER ULWMYZNN36/2016Hospitalization HistorySee Sx Hx [employer] Other History general Narrative - Reported* Type [...] of left shoulderMedical HistoryLeft shoulder painSurgical History pacemaker/zqlxigtlhcilz9359Utpejume HistoryNASAL PFHCDOW00/2020Surgical History CARDIAC CATH06/2013Surgical HistoryLUMBAR NEVER OUPSUUIT74/2017Hospitalization HistorySee Sx [facility]xH[facility] [employer] Other Reason for referral (narrative)* Consultation (Routine) - AuthorizedSpecialtyDiagnoses / ProceduresReferred By Contact Referred To ContactCardiology Diagnoses ICD (implantable cardioverter-defibrillator) in place Procedures Follow Up In Cardiology Lynn Jorgensen APRN-CNP [address] [place] [address] Daphne Mayes MD [address] [place] [address] Referral IDStatusReasonStart DateExpiration DateVisits RequestedVisits [id number]/24/202310/23/202411 T [facility] Work Phone: Reason for referral (narrative)* Consultation (Routine) - AuthorizedSpecialtyDiagnoses / ProceduresReferred By Contact Referred To ContactCardiology Diagnoses Cardiomyopathy, unspecified type (CMS/HCC) Procedures Follow Up In Cardiology Lupe Rosado MD [address] [facility] 2, [address] [address] Lupe Rosado MD [address] [place] [address] 2, [facility] [address] [place] [address] Referral IDStatusReasonStart DateExpiration DateVisits RequestedVisits [id number]/8/20241/ [facility] Work Phone: Reperk for referral (narrative)* Consultation (Routine) - AuthorizedSpecialtyDiagnoses / ProceduresReferred By Contact Referred To ContactCardiology Diagnoses Chronic systolic congestive heart failure (Multi) Procedures Follow Up In Cardiology Lupe Rosado MD [address] [facility] 2, [address] [address] Lupe Rosado MD [address] [place] [address] 2, [address] [address] Referral IDStatusReasonStart DateExpiration DateVisits RequestedVisits [id number]/16/20247/16/202511 [facility] Work Phone: Reason for referral (narrative)No reason for referral information availableOhiohealth Southeastern Medical Center Work Phone: Reason for visit Narrative* Imaging (Routine) - Pending ReviewSpecialtyDiagnoses / ProceduresReferred By ContactReferred To ContactCardiology Diagnoses ICD (implantable cardioverter-defibrillator) in place Procedures Cardiac Device Check - In Clinic Daphne Mayes MD [address] [facility] [address], [place] [address] [place] [address] Phone: tel: fax: Referral IDStatusRecriseldaStfernanda DateExpiration DateVisits RequestedVisits [id number] Review Perform Procedure 252 [facility] Work Phone: Summary Purpose Family History [...] Complaint cardiomyopathy [facility] Chief Complaint defib machine issues headache, back pain, sore throat, ear pain Chief Complaint headache, back pain, sore throat, ear pain Memory Concerns cardiomyopathy CC Adult Risk StratificationReason for VisitCOVID-19 Chief Complaint Admit Date Memory Concerns March 02, 2024 1 0:47am cardiomyopathy March 03, 2024 1 0:19am CC Adult Risk Stratification February 12:02pm [facility] May 31 11:18am Reason for Visit Admit Date Depression March 02, 2024 1 0:47am Chief Complaint Admit Date [facility] May 31 11:18am defib machine issues June 03, 2024 2:28pm Reason for Visit Admit Date Depression May 31, 2024 1 1:18am Heart failure May 31, 2024 1 1:18am Impaired fasting glucose May 31, 025 11:18am Obesity, Class II, BMI 35-39.9 May 062024 11:18am Obstructive sleep apnea May 31 11:18am Osteoarthritis May 31, 2024 1 1:18am Chief Complaint Admit Date [facility] May 31 11:18am defib machine issues June 03, 2024 2:28pm Amb Documentation June 08, 2024 1 :31pm [facility] ER f/u, broken wrist right June 14, 2024 1:11pm Chief Complaint Admit Date [facility] May 31 11:18am defib machine issues June [...] 2024 8:4 1am Chief Complaint Admit Date [facility] May 31 11:18am defib machine issues June [...] gen change. Done by Dr. Mayes at [facility] on 07/19/2021. Dr. Gaudencio Mendoza MD [...] device is assessed by electrophysiology at [facility], had recent battery change with no complications. * 3 cardiac catheterization 7 years ago at [facility] was normal * 4 extreme [...] device is assessed by electrophysiology at [facility], had recent battery change with no complications. * 3 cardiac catheterization 7 years ago at [facility] was normal * 4 extreme [...] device is assessed by electrophysiology at [facility], had recent battery change with no complications. * 3 cardiac catheterization 7 years ago at [facility] was normal * 4 extreme [...] device is assessed by electrophysiology at [facility] * 3 cardiac catheterization 7 years ago at [facility] was normal * 4 extreme [...] device is assessed by electrophysiology at [facility] * 3 cardiac catheterization 7 years ago at [facility] was normal * 4 extreme [...] We will arrange for that at [facility]. Her weight is unchanged from previously and [...] device is assessed by electrophysiology at [facility] * 3 cardiac catheterization 7 years ago at [facility] was normal * 4 fatigue [...] - Remote Daphne Mayes MD [address] [facility], [address] [address] Referral IDStatusReasonStart DateExpiration DateVisits RequestedVisits [id number] Review Perform Procedure [id number] / ProceduresReferred By ContactReferred To ContactCardiology Diagnoses ICD (implantable cardioverter-defibrillator) in place Procedures Cardiac Device Check - In Clinic Daphne Mayes MD [address] [facility], [address] [address] Referral IDStatusReasonStart DateExpiration DateVisits RequestedVisits [id number] Review Perform Procedure [id number] / ProceduresReferred By ContactReferred To Contact Diagnoses ICD (implantable cardioverter-defibrillator) in place Procedures ECG 12 lead (Clinic Performed) Daphne Mayes MD [address] [facility], [address] [address] Referral IDStatViraloidReLogglyart DateExpiration DateVisits RequestedVisits [id number]/26/20244/26/202511 Additional Source Comments INFORMATION SOURCE (unrecogn ized section and content) DATE CREATED AUTHOR 10/24/2017 [facility] DATE CREATED AUTHOR AUTHOR'S ORGANIZ ATION 11/13/2018 [facility] DATE CREATED AUTHOR AUTHOR'S ORGANIZ ATION 08/02/2020 [facility] DATE CREATED AUTHOR AUTHOR'S ORGANIZ ATION 08/22/2022 [facility] DATE CREATED AUTHOR AUTHOR'S ORGANIZ ATION 10/14/2022 [facility] DATE CREATED AUTHOR AUTHOR'S ORGANIZ ATION 11/23/2022 [facility] DATE CREATED AUTHOR AUTHOR'S ORGANIZ ATION 12/10/2022 [facility] DATE CREATED AUTHOR AUTHOR'S ORGANIZ ATION 09/03/[address] [facility] DATE CREATED AUTHOR AUTHOR'S ORGANIZ ATION 03/05/2024 [facility] DATE CREATED AUTHOR AUTHOR'S ORGANIZ ATION 05/23/2024 [facility] DATE CREATED AUTHOR AUTHOR'S ORGANIZ ATION 10/07/2024 [facility] DATE CREATED AUTHOR AUTHOR'S ORGANIZ ATION 03/14/2025 [facility] Care Teams (unrecognized sec tion and content) Team Status: Active Member Role Status Dates Anupam Pereira MD Primary Care Provider Active Team Status: Active Member Role Status Dates Anupam Pereira MD Primary Care Provider Active Start: December 09, 2024 [facility] ProviderActiveStart: December 09, 2024 Chasity Harper MDAverona [...] Date End Date Anupam Pereira MD [address] [facility] [place] [address] PCP - General09/30/19 Team Status: Inactive Member Role Status Dates Anupam Pereira MD Attending Provider Active St art: May 08, 2023 End: May 08, 2023 Team Status: Inactive Member Role Status Dates Anupam Pereira MD Primary Care Provider Active Start: May 28, 2023 End: May 28, 2023Fermin Smart ProviderActive Start: May 28, 2023 End: May 28, 2023Team MemberRelationshipSpecialtyStart DateEnd Date Anupam Pereira MD [facility] [place] [address] PCP - Generalmily Nktcesgy41/13/23 Lynn Jorgensen FACSIMILE MACHINE OPERATOR-APPLICATIONS CONSULTANT [address] [place] [address], [facility] [address] [place] [address] Nurse IkrveckllokuLapgwfrvws84/3/23Team MemberRelationshipSpecialtyStart DateEnd Date Anupam Pereira MD [address] [facility] [place] [address] PCP - [facility] Tuiruleu33/13/23 Lynn Jorgensen FACSIMILE MACHINE OPERATOR-APPLICATIONS CONSULTANT [address] [facility], [facility] [address] [place] [address] Nurse TqrhvaltatjfTvelrjqqye10/3/23 Team Status: Inactive Member Role Status Dates Anupam Pereira MD Primary Care Provider Active Start: December 02, 2023 End: December 02, 2023Fermin Smart ProviderActiveStart: December 02, 2023 End: December 02, 2023Team MemberRelationshipSpecialtyStart DateEnd Date Anupam Pereira MD [address] [place] [address] PCP - [facility] Esxrvadd00/13/23 Lynn Jorgensen, FACSIMILE MACHINE OPERATOR-APPLICATIONS CONSULTANT [address] [facility], [address] [place] [address] Nurse JpqiszxtxvjvLxbirxuhdh75/3/23 Team Status: Active Member Role Status Dates [...] Anupam Pereira MD [address] [place] [address] PCP - [facility]04/16/23 Lynn Jorgensen, FACSIMILE MACHINE OPERATOR-APPLICATIONS CONSULTANT [address] [facility], [facility] [address] [place] [address] Nurse UqyjwlzdglwmKjvwzdmmvj66/3/23Team MemberRelationshipSpecialtyStart DateEnd Date Anupam Pereira MD [address] [place] [address] PCP - [facility]04/16/23 Daphne Mayes MD [address] [facility], [address] [place] [address] TdaoelnhtlnaGxeuibgzubcvpdcpg78/20/24 Team Status: Active Member Role Status Dates Anupam Pereira MD Primary Care Provider Active Start: June 08, 2024 Solange Isbell CMAAttending ProviderActiveStart: June 08, 2024 Team Status: Active Member Role Status Dates Anupam Pereira MD Primary Care Provider Active Start: June 03, 2024 Chasity Harper , MDAttending Provider, Other ProviderActiveStart: June 03, 2024 Team MemberRelationshipSpecialtyStart DateEnd Date Anupam Pereira MD [address] [facility] [place] [address] PCP - GeneralFaokly Zugjmosx52/13/23 Daphne Mayes MD [address] [facility] [address], [address] [place] [address] WitdfrgibyotZqglseuwiryaoxrbt29/20/24 Team Status: Inactive Member Role Status Dates [...] Team Status: Active Member Role/Relationship Status Dates Anuapm Pereira MD Primary Care Provider Active Team [...] Follow Up In Cardiology Lupe Rosado MD [address] [place] [address] Phone: tel: fax: Lupe Rosado MD [address] [place] [address] [address], [address] [address] Phone: tel: fax: Referral IDStatusReasonStart DateExpiration DateVisits RequestedVisits [id number]/6/20252/977881VvseevVslxtiicSnsauw CheckRoutine check upReasonCommentsFollow-up6 monthSpecialtyDiagnoses / ProceduresReferred By ContactReferred To ContactCardiology Diagnoses ICD (implantable cardioverter-defibrillator) in place Procedures Follow Up In Cardiology Lynn Jorgensen, NATE-PAMELA [address] [facility], [address] [address] Daphne Mayes MD [address] [facility], [address] [address] Referral IDStatusReasonStart DateExpiration DateVisits RequestedVisits [id number]/24/202310/714887CgrnydBowilamnFndjxx-cf2 month ReasonCommentsFollow-up6 monthsSpecialtyDiagnoses / ProceduresReferred By ContactReferred To ContactCardiology Diagnoses Cardiomyopathy, unspecified type (Multi) Procedures Follow Up In Cardiology Lupe Rosado MD [address] [place] [address] 2, [address] [address] Lupe Rosado MD [address] [place] [address] 2, [address] [address] Referral IDStatusReasonStart DateExpiration DateVisits RequestedVisits [id number]/8/20241/141285Kqngsjxo IDStatusReasonStart Date Expiration DateVisits RequestedVisits [id number]/16/2024 FOR RECORDS PERTAINING TO PATIENTS WHO ARE [...] BE BASED ON THE PRIMARY CLINICAL RECORDS. [employer] [facility] provides no warranty or guarantee of the accuracy or completeness of information in this document.
== END 2025-03-24 12:15 | disposition home or self-care (01) ==
LOC: RAD 12:16
PROVIDERS: PCP Family Medicine; Visit Provider Family Medicine
DX: M54.50 Low back pain, unspecified (principal)
CPT/HCPCS: 72100

== ENCOUNTER 2025-04-04 09:34 | Day surgery (SDC) | payer MEDICARE, MEDICAID, SELFPAY ==
--- OUTSIDE RECORDS SUMMARY | 2025-04-04 09:41 | XMS_ITS | Clinical Summary ---
Author Organization [email or web address] tem Address [facility] [id number] [address] [place] [address] Care Team Providers Care Discovery Manager Name Role Phone Norma Tapia MD Primary Care Provider [phone] Allergies Active AllergyReactionsCriticalityNoted DateCommentsAdhesiveOther (See Comments) 10/25/2013 [...] Problems ProblemNoted DateDiagnosed DateAbnormal gait02/26/2022ervical pain02/26/2022 Morbid yzupzln7302/26/2022aresthesia of right upper fvesffcfq65/25/2022Lumbar lbkrcvkiwag60/25/2022isorder of jkomto1702/26/2022Lumbar oeiqmfgewncii43/25/2022 ICD (implantable cardioverter-defibrillator), biventricular, in situ07/07/2015 Sleep apnea02/23/2015cute renal failure lhwidhzb75/02/2520Glrt67/02/2014enign essential mclwhvkzzsiw85/02/2014CHF (congestive heart failure)10/11/2013bnormal stress test06/18/2013Unstable wfkkky5406/18/2013 Social History Tobacco UseTypesPacks/DayYears UsedDateSmoking Tobacco: NeverSmokeless Tobacco: Never Tobacco Cessation:Counseling Given: Not Answered Alcohol UseStandard Drinks/WeekCommentsNever0 (1 standard drink = 0.6 oz pure alcohol)AUDIT-CAnswerDate RecordedFrequency of Alcohol ConsumptionNever 08/12/2019Average Number of DrinksNot on file08/12/2019Frequency of Binge DrinkingNot on file08/12/2019PHQ-2AnswerDate RecordedTotal Yruhc733 ChildcareAnswerDate GaeclvwoNnmczlhxgOkqpraq45/06/2019EmploymentAnswerDate CsnjfzmdUqrgeswzpyVeirhcs10/06/2019Purpose - LifeAnswerDate RecordedPurpose and direction in pbnvRekkflw28/11/2021CommentsNoSex and Gender Information ValueDate RecordedSex Assigned at BirthNot on fileLegal XkwOkbvax15/06/2015 11:22 AM EDTGender IdentityNot on fileSexual OrientationNot on file Last Filed Vital Signs Vital SignReadingTime TakenCommentsBlood Fhfuvxzj360/7802/26/2022 2:51 PM EDT Pycet937602/26/2022 2:51 PM RVFVrfazjmxdpc66.6 ??C (97.8 ??F)08/12/2019 12:15 PM EDTRespiratory Flmu3606 2:51 PM EDTOxygen Kmcecgoret79%08/12/2019 1:51 PM EDTInhaled Oxygen Concentration--Orjmkz97.9 kg (196 lb)02/26/2022 2:51 PM EDT Rdynip112.4 cm (5')02/26/2022 2:51 PM EDTBody Mass Index38.281 2:51 PM EDT Plan of Treatment Health MaintenanceDue DateLast DoneCommentsStatin Use: Mnrjwchzfxhxku64/31/1955 Depression Ropgkovhi59/31/1967Tobacco Zsluluptb59/31/1967Adult BMI Screening 1972Zoster (Shingles) Vaccine (1 of 2)2004RSV ( or age 60+ yrs) (1 - Risk 60-74 years 1-dose series)2014Fall Risk Rlvmsnvjf16/31/2020 Influenza Owssesi9501/03/2025DTaP,Tdap and Td Vaccines (2 - Td or Tdap)12/24/2033 12/25/2023 Medical Devices Not on file Insurance Care Teams Team MemberRelationshipSpecialtyStart DateEnd Norma Tapia MD [address] [place] [address] PCP - GeneralFamily Medicine08/09/19
--- OUTSIDE RECORDS SUMMARY | 2025-04-04 09:41 | XMS_ITS | Clinical Summary ---
Author Organization [facility] Address [address] [place], [place] [address] Care Team Providers Care Boat Wrapper Name Role Phone Norma Tapia MD Primary Care Provider [phone] Allergies Active AllergyReactionsCriticalityNoted DateCommentsAdhesive Tape (Rosins) Pxyrvbs6310/25/2013 Medications MedicationSigDispense QuantityRefillsLast FilledStart DateEnd DateStatus Omeprazole [...] ProblemNoted DateDiagnosed DateICD (implantable cardioverter-defibrillator), biventricular, in situ07/07/20153300Pxdyfor21/04/2016Sleep apnea02/23/2015IRB # 15- 345: Wrap-It Study01/26/2015CHF (congestive [...] number is lower riskNot on file04/12/2020Data from: https://www.neighborhoodatlas.medicine.[facility]/. 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 Start DateJob End DateworkerNot on fileNot on fileNot on file Last Filed Vital Signs Vital SignReadingTime TakenCommentsBlood Sftpncqi940/52006/03/2017 12:53 PM EST Vizrh448006/03/2017 12:53 PM JTTKcqmmyalrhd08.2 ??C (97.1 ??F)08/24/2015 10:36 AM EDTRespiratory Mhzp502606/03/2017 12:53 PM ESTOxygen Xcxlxtplnn87%06/03/2017 12:53 PM ESTInhaled Oxygen Concentration--Iyklim76.7 kg (200 lb)06/03/2017 12:53 PM ITRYyfoul792.4 cm (5')06/03/2017 12:53 PM ESTBody Mass Index39.0606/03/2017 12:53 PM EST Plan of Treatment Health MaintenanceDue DateLast DoneCommentsAnxiety Oxizsfioo50/31/1973Depression Mgdcdpqfp42/31/1973Hepatitis C Fyondogju39/31/1973DTaP,Tdap,Td Vaccine (1 - Tdap)1973Mammogram Opivxzuub71/31/1995CT Bqpcxklnscln83/31/2000Cologuard (FIT-DNA)10/03/19998394Qyqhftuuult36/31/2000Colorectal Cancer Uoozfnzva32/31/2000 Fecal Occult Blood10/03/1999Lipid Urkeoeokw17/31/9295Hxtjonursvjur26/31/2000 Pneumococcal Vaccine: 50+ (1 of 1 - PCV)2004Shingrix Vaccine (1 of 2) 2004Diabetes Fbdskfukl03Bone Density Sajkkidof86/31/2020 Advance Directive Mkgdpvhawb93/01/2025ovid-19 Vaccine (2024- season) 2025Influenza Vaccine (#1)2025RSV Vaccine (1 - 1-dose 75+ series) 2029 Medical Devices ImplantedTypeAreaManufacturerDevice IdentifierShelf Expiration DateModel / Serial / [id number]-[id number] Viva Quad S [id number]-[id number] Implanted:01/25/2015 (Quantity not on file)ICDMEDTRONIC [id number] Viva Quad S ARBORICULTURE INSTRUCTOR-D / [id number] / Procedures Procedure NamePriorityDate/TimeAssociated DiagnosisCommentsBASIC METABOLIC PANEL STAT01/25/2015 12:00 PM EDT Chronic systolic congestive heart failure (HCC) from Last 3 Months or Most Recently Relevant to Health Maintenance Results * (ABNORMAL) BASIC METABOLIC PNL (01/25/2015 12:00 PM EDT)ComponentValueRef RangeTest MethodAnalysis TimePerformed AtPathologist SjdioyabrHlsduga47339 - 100 mg/dL01/25/2015 1:38 [address] [facility]TC[facility] DJYPJDXACVZSH97(H)8 - 25 mg/dL01/25/2015 1:38 PM EDTCCLEVEL[facility] LABORATORYCreatinine1.160.70 - 1.40 mg/dL01/25/2015 1:38 PM EDTCLEVEL[facility]IN ZMYNJNRFEIErmkza179801 - 148 mmol/L01/25/2015 1:38 PM EDTCCLEVELAND CL[facility] LABORATORYPotassium Unable to assay. Specimen significantly hemolyzed.3.5 - 5.0 mmol/L01/25/2015 1:38 PM EDTCLEVELAND [facility]INIC [facility]IN KXFLILZFJQOxmcuzlm39337 - 110 mmol/L 01/25/2015 1:38 PM EDTCCLEVELAND [facility] BEXHKFEHGLPJ97362 - 32 mmol/L 01/25/2015 1:38 PM EDTCCLEVELAND [facility] LABORATORYAnion Gap70 - 15 mmol/L 01/25/2015 1:38 PM EDTCCLEVELAND [facility] LABORATORYCalcium9.58.5 - 10.5 mg/dL01/25/2015 1:38 PM EDTCLEVELAND CLINIC MAIN LABORATORYeGFR- Odvquicw4944/23/2015 1:38 PM [facility] MA[facility] LABORATORYeGFR-All Other Races48.01/25/2015 1:38 PM [facility] MA[facility] LABORATORYComment: eGFR (Estimated GFR) Units of [...] StatusNathalie Lux MDLABORATORYFinal ResultPerforming OrganizationAddressCity/State/ZIP CodePhone Number [facility] [address] [place] [address] from Last 3 Months or Most Recently Relevant to Health Maintenance Insurance Advance Directives TypeDate RecordedPatient RepresentativeExplanationAdvance Directive(s)01/25/2015 10:56 AM Care Teams Team MemberRelationshipSpecialtyStart DateEnd Date Norma Tapia MD [address] [place] [address] PCP - GeneralFamily Medicine10/24/14
--- OUTSIDE RECORDS SUMMARY | 2025-04-04 09:41 | XMS_ITS | Clinical Summary ---
Author Organization [facility] Address [address] [place] [address] Phone Care Team Providers Care Fur Sewer Name Role Phone Norma Tapia MD Primary Care Provider [phone] Daphne Ngo MD Unavailable Allergies Active AllergyReactionsCriticalityNoted EjcjSmclbuhrBxiqbbmkTswdbrv24/23/2014 Medications MedicationSigDispense QuantityRefillsLast FilledStart DateEnd DateStatus omeprazole (PriLOSEC) [address] capsule Take 1 capsule (20 mg) by mouth once daily in the morning. Before Breakfast Active sertraline (Zoloft) 50 mg tablet Take 1 tablet (50 mg) by mouth 2 times a day.Active metFORMIN XR 500 mg 24 hr tablet Take 1 tablet (500 mg) by mouth 2 times daily (morning and late afternoon). 5Active nebivolol (Bystolic) 2.5 mg tablet Indications:Chronic systolic congestive heart failure (Multi)Take 1 tablet (2.5 mg) by mouth once daily. 90 tablet 5006/10/2025ctive valsartan (Diovan) 80 mg tablet Indications:Chronic systolic congestive heart failure (Multi)Take 1 tablet (80 mg) by mouth once daily. 90 tablet 5006/10/2025ctive Active Problems ProblemNoted DateDiagnosed DateBMI 38.0-38.9,adult06/10/2024Never smoked ksqbglajqc92/26/2024Obstructive sleep apnea syndrome in adult02/22/2023ICD (implantable cardioverter-defibrillator) in place02/22/20234406Oghillo01/21/2023 Unubwch1602/22/2023hronic systolic congestive heart zjybhwb0102/22/2023 Yyvcfrdwxffkrf26/21/2023 Resolved Problems ProblemNoted DateDiagnosed DateResolved DateEncounter for medication review and urpjylyviu01Encounter to discuss treatment feivlnf5208/29/2023 5Class 2 obesity without serious comorbidity with body mass index (BMI) of 37.0 to 37.9 in adult Immunizations ImmunizationAdministration DatesNext DueTdap vaccine, age 7 year and older (BOOSTRIX, ADACEL)12/25/2023 Family History Medical HistoryRelationNameCommentsDiabetesFatherHeart attackFatherDementia MotherDiabetesMotherRelationNameStatusCommentsFatherMother Social History Tobacco UseTypesPacks/DayYears UsedDateSmoking Tobacco: NeverSmokeless Tobacco: NeverAlcohol UseStandard Drinks/WeekCommentsNever0 (1 standard drink = 0.6 oz pure alcohol)PHQ-2AnswerDate RecordedPatient Health Questionnaire-2 Score0 2CommentsUnknownSex and Gender InformationValueDate RecordedSex Assigned at BirthNot on fileLegal HnbSwfniv86/26/2022 6:45 PM ESTGender Identity Not on fileSexual OrientationNot on file Last Filed Vital Signs Vital SignReadingTime TakenCommentsBlood Rixrdlsv038/70010/06/2024 10:07 AM EDT Mzovi6240/04/2025 10:07 AM HHUQjlfzmflnbz50.1 ??C (97 ??F)08/09/2021 3:58 PM EDT Respiratory Yjut5510 9:42 AM EDTOxygen Saturation--Inhaled Oxygen Concentration--Kugmxn03.5 kg (195 lb)10/06/2024 10:07 AM VRIWpacgb333.4 cm (5') 10/06/2024 10:07 AM EDTBody Mass Index38.0810/06/2024 10:07 AM EDT Plan of Treatment DateTypeDepartmentCare Team (Latest Contact Info)Yhjyxdjvpvh19/14/2026 10:10 AM ESTOffice Visit [place] [address] [facility] [address] [place] [phone] Shan Boswell MD [address] [facility] [address] [place] [address] Health MaintenanceDue DateLast DoneCommentsCT Rhuqqqugeiko68/31/1955Colonoscopy 1954olorectal Cancer Rjccpfdye09/31/1955FIT-DNA (Cologuard)1955FIT 1955Lipid Panel1955Medicare Annual Wellness Visit (AWV)1955 Ykdzxgnbubgnm53/31/1955MMR Vaccines (1 of 1 - Standard series)10/03/1956 Hepatitis C Zycmpszsr32/31/1973Pneumococcal Vaccine (1 of 2 - PCV)1973 Dnwtxhwkm22/31/1995RSV High Risk: (Elderly (60+) or Population) (1 - Risk 50-74 years 1-dose series)2004Zoster Vaccines (1 of 2)2004Bone Density Scan10/03/20192214Pynfdolnhmezuy21/21/202407/, 11/22/2022, 12/15/2020, Additional history existsCreatinine Level08/28/428789/, 08/02/2021, 1Diabetes Cdoqkxhza50/26/996886/, 08/02/2021 Potassium Level08/28/779491/, 08/02/2021, 08/01/2020Influenza Vaccine (#1)2024OVID-19 Vaccine ( - season)2025DTaP/Tdap/Td Vaccines (2 - Td or Tdap)/HIB VaccinesAged OutNo longer eligible based on patient's age to complete this topicHPV VaccinesAged OutNo longer eligible based on patient's age to complete this topicHepatitis A VaccinesAged OutNo longer eligible based on patient's age to complete this topic Hepatitis B VaccinesAged OutNo longer eligible based on patient's age to complete this topicIPV VaccinesAged OutNo longer eligible based on patient's age to complete this topicMeningococcal VaccineAged OutNo longer eligible based on patient's age to complete this topicRotavirus VaccinesAged OutNo longer eligible based on patient's age to complete this topic Procedures Procedure NamePriorityDate/TimeAssociated DiagnosisCommentsBASIC METABOLIC PANEL Ijzhaxo2508/29/2023 9:44 AM EDT Chronic systolic congestive heart failure (Multi) RNTSQJLHQCGBID99/21/2023 11:17 AM EDT from Last 3 Months or Most Recently Relevant to Health Maintenance Results * (ABNORMAL) Basic metabolic panel (08/29/2023 9:44 AM EDT)ComponentValueRef RangeTest MethodAnalysis TimePerformed AtPathologist AnbzzbdptElmnniq227(H)74 - 99 mg/dL LAB CHEMISTRY METHOD 08/29/2023 12:02 PM [facility] JTZJqdzst528285 - 145 mmol/L LAB CHEMISTRY METHOD 08/29/2023 12:02 PM [facility] LABPotassium4.43.5 - 5.3 mmol/L LAB CHEMISTRY METHOD 08/29/2023 12:02 PM [facility] MAKFfdzxjzo27632 - 107 mmol/L LAB CHEMISTRY METHOD 08/29/2023 12:02 PM [facility] CRKUyphwttpiii0801 - 32 mmol/L LAB CHEMISTRY METHOD 08/29/2023 12:02 PM [facility] LABAnion Gcz2213 - 20 mmol/L LAB CHEMISTRY METHOD 08/29/2023 12:02 PM [facility] LABUrea Vvsordof856 - 23 mg/dL LAB CHEMISTRY METHOD 08/29/2023 12:02 PM [facility] LABCreatinine0.750.50 - 1.05 mg/dL LAB CHEMISTRY METHOD 08/29/2023 12:02 PM [facility] YLSgRVI65>60 mL/min/1.73m*2 LAB CHEMISTRY METHOD 08/29/2023 12:02 PM [facility] LABComment: Calculations of estimated GFR are performed using the 2020 CKD-EPI Study Refit equation without therace variable for the IDMS-Traceable creatinine methods. https://jasn.asnjournals.org/content/early/ASN.1614990395 Calcium9.58.6 - 10.3 mg/dL LAB CHEMISTRY METHOD 08/29/2023 12:02 PM [facility] LABSpecimen (Source)Anatomical Location / LateralityCollection Method / VolumeCollection TimeReceived TimeBlood Venous blood specimen / UnknownVenipuncture / Bmyljyd9908/29/2023 9:44 AM EDT 08/29/2023 9:45 AM EDT Narrative Authorizing ProviderResult TypeResult StatusTraci E Joslyn AIR HOSE COUPLER-CNPLAB BLOOD ORDERABLESFinal ResultPerforming OrganizationAddressCity/State/ZIP Code Phone Number [facility] [address] [phone] * Echocardiogram (11/22/2022 11:17 AM EDT)Specimen (Source)Anatomical Location / LateralityCollection Method / VolumeCollection TimeReceived Time11/22/2022 11:17 AM EDT Narrative [facility] - 11/22/2022 1:01 PM EDT [address], [place] [address] TRANSTHORACIC ECHOCARDIOGRAM REPORT Patient Name: ? NYA REDMOND ?? Reading Physician: ??[id number] Shan Boswell MD, [facility] Study Date: ? 11/22/2022 ?Referring ? SHAN BOSWELL Physician: MRN/PID: ?[id number] ? PCP: ?Norma Tapia Accession/Order#: [id number] Department ?[facility] Location: Date of : ?1955 ?Fellow: Gender: ? F ?Nurse: Admit Date: ?Research Management Associate: ?Ahslyn Cam RDCS, RVT Height: ? 152.40 cm ?CC Report to: Weight: ? 91.17 kg ? Study Type: ? Echocardiogram BSA: ?1.87 m2 Blood Pressure: 134 /62 mmHg Diagnosis/ICD: I50.22-Chronic systolic (congestive) heart failure (CHF); I42.9-Cardiomyopathy, unspecified Indication: ?AICD, WALDEMAR, Obesity Procedure/CPT: Echo Complete w Full Doppler-[id number] Study Detail: The following Echo studies were [...] 2D MEASUREMENTS: Normal Ranges: Ao Root d: ? 2.90 cm ?? (2.0-3.7cm) LAs: ? 3.30 cm ?? (2.7-4.0cm) RVIDd: ? 2.80 cm ?? (0.9-3.6cm) IVSd: ?1.10 cm ?? (0.6-1.1cm) LVPWd: ? 1.00 cm ?? (0.6-1.1cm) LVIDd: ? 4.50 cm ?? (3.9-5.9cm) LVIDs: ? 3.50 cm LV Mass Index: 87.7 g/m2 LV % FS ?22.2 % LV SYSTOLIC FUNCTION BY 2D PLANIMETRY (MOD): Normal Ranges: EF-A4C View: 64.0 % (>=55%) LV DIASTOLIC FUNCTION: Normal Ranges: MV Peak E: ?0.87 m/s (0.7-1.2 m/s) MV Peak A: ?1.12 m/s (0.42-0.7 m/s) E/A Ratio: ?0.78 ? (1.0-2.2) MV lateral e' 0.08 m/s MV medial e' ??0.07 m/s E/e' Ratio: 11.10 (<8.0) MITRAL VALVE: Normal Ranges: MV Vmax: 1.24 m/s (<=1.3m/s) MV peak P.2 mmHg (<5mmHg) MV mean P.0 mmHg (<48mmHg) MITRAL INSUFFICIENCY: Normal Ranges: MR Vmax: 271.00 cm/s AORTIC VALVE: Normal Ranges: AoV Vmax: 1.67 m/s (<=1.7m/s) AoV Peak P.2 mmHg (<20mmHg) AoV Mean PG: ? 6.0 mmHg ??(1.7-11.5mmHg) LVOT Max Edward: 1.11 m/s (<=1.1m/s) AoV VTI: ? 36.40 cm ??(18-25cm) LVOT VTI: ?26.60 cm LVOT Diameter: ? 1.90 cm ?? (1.8-2.4cm) AoV Area, VTI: ? 2.07 cm2 ??(2.5-5.5cm2) AoV Area,Vmax: ? 1.88 cm2 ??(2.5-4.5cm2) AoV Dimensionless Index: 0.73 TRICUSPID VALVE/RVSP: Normal Ranges: Peak TR Velocity: 2.67 m/s RV Syst Pressure: 31.5 mmHg (< 30mmHg) PULMONIC VALVE: Normal Ranges: PV Max Edward: 0.8 m/s ??(0.6-0.9m/s) PV Max PG: ??2.3 mmHg [id number] Shan Boswell MD, [facility] Electronically signed on 11/22/2022 at 1:01:56 PM Final Procedure Note Shan Boswell MD - 11/22/[address], [address] [facility], [place] [address] TRANSTHORACIC ECHOCARDIOGRAM REPORT Patient Name: NYA Hayward Physician: [id number] Shan Conner, [facility] Study Date: 11/22/2022 Referring SHAN BOSWELL Physician: MRN/PID: [id number] PCP: Norma Tapia Accession/Order#: [id number] [facility] Location: Date of : 1955 Fellow: Gender: F Nurse: Admit Date: Research Management Associate: Ashlyn Cam RDCS,RVT Height: 152.40 cm CC Report to: Weight: 91.17 kg Study Type: Echocardiogram BSA: 1.87 m2 Blood Pressure: 134 /62 mmHg Diagnosis/ICD: I50.22-Chronic systolic (congestive) heart failure (CHF); I42.9-Cardiomyopathy, unspecified Indication: AICD, WALDEMAR, Obesity Procedure/CPT: Echo Complete w Full Doppler-[id number] Study Detail: The following Echo studies were [...] 0.8 m/s (0.6-0.9m/s) PV Max P.3 mmHg [id number] hSan Boswell MD, [facility] Electronically signed on 11/22/2022 at 1:01:56 PM Final Authorizing ProviderResult TypeResult StatusHachito Boswell [facility] ECHO PROCEDURESFinal ResultPerforming OrganizationAddressCity/State/ZIP CodePhone Number [facility] from Last 3 Months or Most Recently Relevant to Health Maintenance Insurance Care Teams Team MemberRelationshipSpecialtyStart DateEnd Norma Tapia MD PCP - GeneralFamily Hezuqtxx27/13/23 Daphne Ngo MD [address] [facility] [address], [address] [place] [address] MyhhvrtdfyidNmrwavefflccjpmmo21/20/24
--- OUTSIDE RECORDS SUMMARY | 2025-04-04 09:41 | XMS_ITS | Clinical Summary ---
Author Organization [facility] Address [address] [facility], [address] [place] [address] Care Team Providers Care Chief Executive Name Role Phone Unavailable Primary Care Provider Unavailabl e Allergies No known active allergies Medications MedicationSigDispense QuantityRefillsLast FilledStart DateEnd DateStatus aspirin 81 MG tablet Take 81 mg by mouth daily.Active isosorbide mononitrate (IMDUR) 30 MG CR tablet Take 30 mg by mouth daily.Active metoprolol (LOPRESSOR) 25 MG tablet Take 25 mg by mouth 2 times daily.Active Active Problems ProblemNoted DateDiagnosed DateUnstable jbjnlz0206/18/2013bnormal stress test 06/18/2013 Social History Tobacco UseTypesPacks/DayYears UsedDateSmoking Tobacco: NeverAlcohol UseStandard Drinks/WeekCommentsNo0 (1 standard drink = 0.6 oz pure alcohol)Comments UnknownSex and Gender InformationValueDate RecordedSex Assigned at BirthNot on fileLegal IzdIwafaw42/07/2014 12:06 PM ESTGender IdentityNot on fileSexual OrientationNot on file Last Filed Vital Signs Vital SignReadingTime TakenCommentsBlood Uyqyaike556/35006/18/2013 9:45 AM EST Wgsej6288/14/2014 9:45 AM NJDTreuaocgkqu63.7 ??C (98.1 ??F)06/18/2013 7:21 AM ESTRespiratory Wign429106/18/2013 9:45 AM ESTOxygen Tcmqvzxfnn41%06/18/2013 9:00 AM ESTInhaled Oxygen Concentration--Dlyscb99.4 kg (197 lb)06/18/2013 7:21 AM EST Ivhnmq106.3 cm (4' 10 )06/18/2013 7:21 AM ESTBody Mass Index41.17006/18/2013 7:21 AM EST Plan of Treatment Not on file Advance Directives * Full Code (Latest Code Status on File) Date ActivatedDate InactivatedComments06/18/2013 9:00 AM06/18/2013 5:49 PM * Full Code Date ActivatedDate InactivatedComments06/18/2013 7:18 AM06/18/2013 9:00 AM
--- OUTSIDE RECORDS SUMMARY | 2025-04-04 09:41 | XMS_ITS | Clinical Summary ---
Author Organization [facility] Address [address] [place] [address] Care Team Providers Care Cloth Bleaching Range Tender Name Role Phone Unavailable Primary Care Provider Unavailabl e Social History Tobacco UseTypesPacks/DayYears UsedDateSmoking Tobacco: Never Assessed CommentsUnknownSex and Gender InformationValueDate RecordedSex Assigned at Not on fileLegal KsuPhddii92/15/2023 6:47 PM EDTGender IdentityNot on fileSexual OrientationNot on file Last Filed Vital Signs Vital SignReadingTime TakenCommentsBlood Aifkbdmo207/7005/ 12:00 PM EDT Pulse--Temperature--Respiratory Rate--Oxygen Saturation--Inhaled Oxygen Concentration--Nusfdh21.6 kg (202 lb)02/28/2021 12:00 PM JFQQsqygb051.4 cm (5') 02/28/2021 12:00 PM EDTBody Mass Index39.451 12:00 PM EDT Plan of Treatment Not on file
--- OUTSIDE RECORDS SUMMARY | 2025-04-04 09:52 | XMS_ITS | CCD ---
Author Organization [facility] Care Team Providers Care Leaf Stripper Name Role Phone Hampole, Haile V Unavailable Unavailable Hampole, Haile V Unavailable Unavailable Hampole, Haile V Unavailable Unavailable ANUPAM PEREIRA~[phone] UNKNOWN Unavailable Unavailable Harsh Lange Unavailable Unavailable Harsh Lange Unavailable Unavailable Anupam Pereira Unavailable Unavailable Unavailable MD Anupam Pereira Primary Care Provider MD Daphne Mayes Attending Provider [phone] Unavailable Unavailable MD Anupam Pereira Primary [...] Unavailable PEREIRA, DR ANUPAM Kurtz Attending Unavailable PERIERA, DR ANUPAM Kurtz Admitting Unavailable ONEIDA, DR CECY [employer] Consult[employer] Unavailable ZIEBER, DR [...] Unavailable MD Anupam Pereira Primary Care Provider [phone] MD Daphne Mayes Attending Provider [phone] Rosado, Dr. Lupe Carrion Attending Kathya [...] Primary Care Provider Maren Aden Attending Provider [phone] Lupe Rosado MD Attending Provider LUPE ROSADO [...] Attending Provider Lupe Rosado MD Attending Provider Lupe Rosado Attending Unavailable Lupe Rosado Admitting [...] source)Adhesive Tape; Translations: [Tape]Propensity to adverse reactions (disorder)[facility] Repository (16 sources)DesonideDrug [id number], RashThe [facility] (1 source)LatexDrug allergy (disorder)[facility] Rep[facility] (1 source)patient allergy list reviewed by nurse or physiciaPropensity to adverse -[id number]:DoneCalxeda Other (1 source)Allergies ReconciledPropensity to adverse reactionsUnkDale Power SolutionsKindred Hospital JackBe Other (10 sources)Adhesive agent; Translations: [ADHESIVE]Drug Cetxyavyjhz51-60-4619 [facility] (1 source)Adhesive TapeDrug allergy (disorder)28-18-6381UfdzjaniiC[facility] Clinic [facility] Medications Current Medications MedicationDrug Class(es)DatesSig (Normalized)Sig (Original)amoxicillin 875 mg / clavulanate 125 mg oral tablet (2 sources)Penicillin-class AntibacterialStart: 34-13-5447hftd 1 tablet by mouth every twelve hoursAmoxicillin-Pot Clavulanate 875-125 MG 1 tablet Orally every 12 hrs for 10 day(s) Jan, Activebaclofen 10 mg oral tablet (3 sources)gamma-Aminobutyric Acid-ergic Agonisttake 1 tablet by mouth every twelve hoursBaclofen 10 MG 1 tablet as needed Orally Twice a day Active benzonatate 200 mg oral capsule (4 sources)Non-narcotic AntitussiveStart: 56-21-1096fwkn 1 capsule by mouth every eight hoursBenzonatate 200 MG 1 capsule Orally Three times a day for 10 day(s) May, ActiveStart: 76-31-2400azeu 1 capsule by mouth every eight hoursBenzonatate 200 MG 1 capsule Orally Three times a day for 10 day(s) Dec, Activecefdinir 300 mg oral capsule (3 sources)Cephalosporin AntibacterialStart: 49-88-2865Xxwrlnlh 300 MG as directed Orally bid for 7 May, ActiveStart: 78-54-0680Bgypppyc 300 MG as directed Orally bid for 7 days Dec, Activecodeine phosphate 2 mg/ml / guaiFENesin 20 mg/ml oral solution (2 sources)Opioid AgonistStart: 27-39-0708xqdd 10 mL by mouth every four hours as neededguaiFENesin AC 100-10 MG/5ML 10 mL as needed Orally every 4 hrs for 7 days Dec, Activefurosemide 40 mg oral tablet (2 sources)Loop DiureticStart: 02-25-2023 End: 20-17-8255ugkplfrbof (Lasix) 40 mg tablet Indications: Chronic systolic [...] ActivemethylPREDNISolone 4 mg oral tablet (3 sources)CorticosteroidStart: 56-48-4705fsdfubLLDYFQFzieml 4 MG as directed Orally for 6 days May, ActiveStart: 25-89-1967ruhbfuZDWLJKQqkumq 4 MG as directed Orally for 6 days Jan, ActivepredniSONE 20 mg oral tablet (6 sources)Start: 21-93-7466dcqt 2 tablets by mouth every twenty-four hours predniSONE 20 MG 2 tablets Orally Once a day for 5 days May, Active Start: 28-80-0137geow 2 tablets by mouth every twenty-four hourspredniSONE 20 MG 2 tablets Orally Once a day for 5 days Dec, Activesertraline 50 mg oral tablet (20 sources)Serotonin Reuptake InhibitorStart: 03-02-2024 End: 09-13-2354avzw 1 tablet by mouth once dailyStart: 02-25-2024 End: 60-77-6482kgsu 1 tablet by mouth once dailySertraline 100 mg tablet Discontinued 0 .ROUTE .COMPLEX 90 0 February 25, 2024 2:49pm March 02, 2024 10:24am TAKE 1 TABLET BY MOUTH EVERY DAYStart: 06-20-2023 End: 85-36-1017fbiv 1 tablet by mouth once dailySertraline 100 [...] 20 Active Completed/Discontinued Medications MedicationDrug Class(es)DatesSig (Normalized)Sig (Original)[id number] 200 actuat albuterol 0.09 mg/actuat metered dose inhaler (12 sources)beta2-Adrenergic AgonistStart: 06-20-2023 End: 13-39-1081rsmv 1 puff(s) by inhalation every four to six hours as needed for wheezingAlbuterol Sulfate 90 mcg/actuation HFA aerosol inhaler Discontinued 2 PUFF INHALATION EVERY 4-6 HOURS as needed for shortness of breath or wheezing 6.7 June 20, 2023 12:00am December 2141:01pmStart: 06-20-2023 End: 00-89-6962bkcm 1 puff(s) by inhalation every four to six hoursAlbuterol Sulfate Discontinued 2 PUFF INHALATION EVERY 4-6 HOURS 6.7 June 20, 2023 1:00am December 22, 2023 2:01pmStart: 60-30-1336gxoc 1 puff(s) by inhalation every four to six hoursAlbuterol Sulfate Active 2 PUFF INHALATION EVERY 4-6 HOURS 6.7 June 20, 2023 1:00amStart: 11-30-5966dhxi 2 puff(s) by inhalation every four hours as neededAlbuterol Sulfate HFA 108 (90 Base) MCG/ACT 2 puff Inhalation every 4 hrs prn Jan, ActiveStart: 56-78-2440qoth 2 puff(s) by inhalation every four hours as neededAlbuterol Sulfate HFA 108 (90 Base) MCG/ACT 2 puff Inhalation every 4 hrs prn 07 Jan, 2023 ActiveAlbuterol Sulfate HFA 108 (90 Base) MCG/ACT INHALE 2 PUFFS BY MOUTH EVERY 4 HOURS NEEDED FOR 30 DAYS for 30 ActiveAlbuterol Sulfate 90 mcg/actuation HFA aerosol inhaler (7 sources)Start: 06-20-2023 End: 56-87-9076sbgo 1 puff(s) by inhalation every four to six hours as needed for wheezingAlbuterol Sulfate 90 mcg/actuation HFA aerosol inhaler Discontinued 2 PUFF INHALATION EVERY 4-6 HOURS as needed for shortness of breath or wheezing 6.7 June 20, 2023 1:00am December 22, 2023 2:01pmStart: 06-20-2023 End: 93-42-7945uhhb 1 puff(s) by inhalation every four to six hours as needed for wheezingAlbuterol Sulfate 90 mcg/actuation HFA aerosol inhaler Discontinued 2 PUFF INHALATION EVERY 4-6 HOURS as needed for shortness of breath or wheezing 6.7 June 20, 2023 12:00am December 22, 2023 1:01pmazithromycin 250 mg oral tablet (3 sources)Macrolide AntimicrobialStart: 12-31-2024 End: 90-19-0871Sbnzwofjyubd 250 mg tablet Discontinued 0 PO .COMPLEX 6 0 December 30, 2024 11:00pm February 04, 2025 9:20am For 250 mg dose pack: take 500 mg today (day 1), then 250 mg for 4 days (days 2-5) POcarvedilol 3.125 mg oral tablet (20 sources)alpha-Adrenergic Roxy, beta-Adrenergic BlockerStart: 11-18-2023 End: 29-30-7104tfby 1 tablet by mouth twice dailyCarvedilol 3.125 mg tablet Discontinued 3.125 MG PO Twice daily December 21, 2023 11:00pm July 26, 2024 7:50amStart: 04-03-2021 End: 46-38-1413glxw 1 tablet by mouth twice dailycarvedilol (Coreg) [...] capsule (13 sources)Provitamin D2 CompoundStart: 10-09-2022 End: 27-53-3049guoa 1 capsule by mouth once dailyVitamin D (Ergocalciferol) 50 MCG (2000 UT) Oral Capsule one daily OTC Quantity: 90 Refills: 0 Ordered: 09-Oct-2022 Lupe Rosado MD Start : 09-Oct-2022 ActiveStart: 31-52-7410hzys 1 capsule by mouth every weekVitamin D (Ergocalciferol) 1.25 MG (29950 UT) 1 capsule Orally weekly for 90 day(s) May, Activefebuxostat 80 mg oral tablet (5 sources)Xanthine Oxidase Inhibitortake 1 tablet by mouth once dailyUloric 80 MG TAKE 1 TABLET BY MOUTH EVERY DAY Oral for 90 Not-Takinglisinopril 10 mg oral tablet (5 sources)Angiotensin Converting Enzyme Inhibitortake 1 tablet by mouth once dailyLisinopril 10 MG TAKE 1 TABLET EVERY DAY Oral for 90 Not-Awglwy29 hr metFORMIN hydrochloride 500 mg extended release oral tablet (18 sources)BiguanideStart: 07-26-2024 End: 81-15-2524Qdycjdemw 500 mg tablet extended release 24 hr Discontinued 1000 MG PO Daily 60 July 26, 2024 10:35am February 04, 2025 9:20amStart: 50-31-0905tdrn 1 tablet by mouth twice dailymetFORMIN XR 500 mg 24 hr tablet Take 1 tablet (500 mg) by mouth 2 times daily (morning and late afternoon). 05/31/2024 ActiveStart: 05-31-2024 End: 54-46-3821dsxg 1 tablet by mouth once daily, then [...] mg oral tablet (14 sources)Start: 06-10-2024 End: 73-76-1922weur 1 tablet by mouth once dailyNebivolol 2.5 mg tablet Discontinued 2.5 MG PO Daily June 14, 2024 12:00am December 31, 2024 1 2:21pmNirmatrelvir-Ritonavir (4 sources)Start: 12-22-2023 End: 25-77-5927Bpnoqpjmghiu-Ritonavir (Paxlovid) 300 mg (150 mg x 2)-100 mg tablets,dose pack Discontinued 0 PO .COMPLEX 30 December 21, 2023 11:00pm March 02, 2024 10:24am take TWO 150 mg tablets of nirmatrelvir with ONE 100 mg tablet of ritonavir twice daily for 5 days POStart: 12-22-2023 End: 94-05-1310Rxmumpufpxzr-Ritonavir (Paxlovid) 300 mg (150 mg x 2)-100 mg tablets,dose pack Discontinued 0 PO .COMPLEX December 22, 2023 12:00am March 02, 2024 11:24am take TWO 150 mg tablets of nirmatrelvir with ONE 100 mg tablet of ritonavir twice daily for 5 days PONirmatrelvir-Ritonavir (Paxlovid) 300 mg (150 mg x 2)-100 mg tablets,dose pack (10 sources)Start: 12-22-2023 End: 87-30-4051Hbffvpuyamhi-Ritonavir (Paxlovid) 300 mg (150 mg x 2)-100 mg tablets,dose pack Discontinued 0 PO .COMPLEX December 21, 2023 11:00pm March 02, 2024 10:24am take TWO 150 mg tablets of nirmatrelvir with ONE 100 mg tablet of ritonavir twice daily for 5 days POStart: 12-22-2023 End: 25-35-1848Uuwlcfiwmeyw-Ritonavir (Paxlovid) 300 mg (150 mg x 2)-100 mg tablets,dose pack Discontinued 0 PO .COMPLEX 30 December 22, 2023 12:00am March 02, 2024 11:24am take TWO 150 mg tablets of nirmatrelvir with ONE 100 mg tablet of ritonavir twice daily for 5 days POStart: 46-93-4602Kvipyeblefbo- Ritonavir (Paxlovid) 300 mg (150 mg x 2)-100 mg tablets,dose pack Active 0 PO .ZCJPIPA72 December 22, 2023 12:00am take TWO 150 mg tablets of nirmatrelvir with ONE 100 mg tablet of ritonavir twice daily for 5 days POomeprazole 20 mg delayed release oral capsule (20 sources)Proton Pump InhibitorStart: 04-21-2024 End: 63-03-3872cppb 1 capsule by mouth once dailyOmeprazole 20 mg capsule,delayed release(DR/EC) Discontinued 0 .ROUTE .COMPLEX July 060:42am November 11, 2024 3:20pm TAKE 1 CAPSULE BY MOUTH EVERY DAYStart: 12-22-2023 End: 15-78-9226ihwx 1 capsule by mouth once dailyOmeprazole 20 mg capsule,delayed release(DR/EC) Discontinued 20 MG PO Daily December 21, 2023 11:00pm April 21, 2024 10:49amOmeprazole 20 MG TK 2 CS PO QD Oral for Activesacubitril 49 mg / valsartan 51 mg oral tablet (20 sources)Angiotensin 2 Receptor BlockerStart: 10-09-2021 End: 90-49-4983vqhx 1 tablet by mouth twice dailySacubitril-Valsartan (Entresto) [...] (14 sources)Angiotensin 2 Receptor BlockerStart: 06-10-2024 End: 46-79-3196zjea 1 tablet by mouth once dailyValsartan 80 mg tablet Discontinued 80 MG PO Daily June 14, 2024 12:00am December 31, 2024 12: 21pm Problems Active Problems Problem ClassificationProblemDateDocumented DateEpisodic/ChronicAbdominal pain (15 sources)Right upper quadrant pain; Translations: [Right upper quadrant pain] Onset: 56-46-1599GysoxfedTjpsi bronchitis (2 sources)Acute bronchitis; Translations: [Acute bronchitis]Onset: 08-30-2014 EpisodicAnxiety disorders (14 sources)Generalized anxiety disorder; Translations: [Generalized anxiety disorder]Onset: 13-85-9503ZavghjwVxelmjm dysrhythmias (12 sources)Atrial fibrillation; Translations: [Unspecified atrial fibrillation] Onset: 151480-16-3245GykkgqbWvkbntu obstructive pulmonary disease and bronchiectasis (20 sources)Bronchitis; Translations: [Bronchitis, not specified as acute or chronic]EpisodicConduction disorders (20 sources)Automatic implantable cardiac defibrillator in situ; Translations: [Automatic implantable cardiac defibrillator in situ]Onset: ChronicCongestive heart failure; nonhypertensive (20 sources)Chronic systolic heart failure; Translations: [Chronic systolic heart failure]Onset: 25-80-6890YrenrtiSsxjbhphjf and other anemia (5 sources)Anemia, unspecified; Translations: [ANEMIA UNSPECIFIED]Onset: 54-34-8488HrvfgexaXiyuaqmnwo disorders (14 sources)Gastroesophageal reflux disease without esophagitis; Translations: [Gastro-esophageal reflux disease without esophagitis]ChronicEssential hypertension (15 sources)Essential hypertension; Translations: [Essential (primary) hypertension]Onset: 24-43-3816PkwulptNuwnwtvbrwvmp symptoms and ill-defined conditions (18 sources)Increased frequency of urination; Translations: [Frequency of micturition]97-17-2785ItzrbipzNjpy and other crystal arthropathies (20 sources)Articular gout; Translations: [Gout, unspecified]Onset: 03-28-2014 ChronicInfluenza (1 source)Influenza due to other identified influenza virus with other respiratory manifestationsEpisodicMood disorders (20 sources)Depression; Translations: [Depressive disorder]Onset: 08-29-2017 80-15-9981QyzhixcJrmhgnevutg chest pain (20 sources)Precordial pain; Translations: [Precordial pain]Onset: 09-15-2017 EpisodicNutritional deficiencies (12 sources)Vitamin D deficiency; Translations: [Vitamin D deficiency, unspecified]Onset: 77-02-9019BrvdcdrYhidppqquxogia (20 sources)Osteoarthritis; Translations: [Unspecified osteoarthritis, unspecified site]Onset: 212657-30-0473KalmdvcQtkoltr on above:bilateral Other acquired deformities (14 sources)Acquired [...] source)Other chronic pain; Translations: [OTHER CHRONIC PAIN]Onset: 62-57-7430VytvvaqZqblm nervous system disorders (9 sources)Paresthesia of upper [...] obese; Translations: [Body Mass Index 40.0-44.9, adult]Onset: 71-01-1611OmcuglqXgryv nutritional; endocrine; and metabolic disorders (17 sources)Morbid obesity; Translations: [Morbid obesity]Onset: 06-21-2014 23-42-4194QtlvlveRchos nutritional; endocrine; and metabolic disorders (1 source)Hypercalcemia; Translations: [Hypercalcemia]Onset: 16-41-1233Mbxquqn Other nutritional; endocrine; and metabolic disorders (20 sources)Obese class II; Translations: [Body mass index (BMI) 38.0-38.9, adult]94-41-3526TvenokpVvmaf nutritional; endocrine; and metabolic disorders (4 sources)Body mass index 30+ - obesity; Translations: [Body mass index (BMI) 38.0-38.9, adult]Onset: 948071-85-2414OpwpzxjNpgcz nutritional; endocrine; and metabolic disorders (2 sources)Body mass index (BMI) 38.0-38.9, adult; Translations: [Body mass index (BMI) 38.0-38.9, adult]Onset: 56-43-5758SykvdwzIbdgs nutritional; endocrine; and metabolic disorders (2 sources)Obesity, unspecified; Translations: [Obesity, unspecified]Onset: 97-90-0335GnsrtmbMurav nutritional; endocrine; and metabolic disorders (2 sources)Body mass index (BMI) 37.0-37.9, adult; Translations: [Body mass index (BMI) 37.0-37.9, adult]Onset: 64-07-7684DmmjdwlYkmpf nutritional; endocrine; and metabolic disorders (7 sources)Abnormal weight gain; Translations: [Abnormal weight gain]07-26-2024 EpisodicOther nutritional; endocrine; and metabolic disorders (3 sources)Abnormal weight gain; Translations: [Abnormal weight gain]07-26-2024 EpisodicOther upper respiratory disease (9 sources)Epistaxis; Translations: [Epistaxis]EpisodicOther upper respiratory disease (5 sources)Bleeding from nose; Translations: [Epistaxis]EpisodicPeri-; endo-; and myocarditis; cardiomyopathy (except that caused by tuberculosis or sexually transmitted disease) (20 sources)Cardiomyopathy; Translations: [Other primary cardiomyopathies]Onset: 58-81-2443WswynkzYafiznd on above:Nonischemic;Residual codes; unclassified (20 sources)Obstructive sleep apnea of adult; Translations: [Obstructive sleep apnea (adult)(pediatric)]Onset: 042402-42-0643EcojqaiVvpxzrkt codes; unclassified (10 sources)Obstructive sleep apnea syndrome; Translations: [Obstructive sleep apnea (adult) (pediatric)]36-76-6366WtaofpyHldduvqm codes; unclassified (11 sources)Obstructive sleep apnea (adult) (pediatric); Translations: [Obstructive sleep apnea (adult)(pediatric)]Onset: hronic Residual codes; unclassified (9 sources)Tobacco user; Translations: [Tobacco use]EpisodicResidual codes; unclassified (9 sources)Never smoked tobacco; Translations: [Other specified health status] Onset: 609789-86-7501WyvlqpapTirgcngajqt; intervertebral disc disorders; other back problems (8 sources)Spondylosis without myelopathy or radiculopathy, lumbar region; Translations: [Other intervertebraldisc degeneration, lumbar region]Onset: 52-69-2995CgbxycnSklqztebanl; intervertebral disc disorders; other back problems (20 sources)Neck pain; Translations: [Cervicalgia]Onset: EpisodicUnclassified (4 sources)LOW BACK PAIN, UNSPECIFIED; Translations: [LOW BACK PAIN, UNSPECIFIED]Onset: 66-11-0490Ydsfvkfyxznh (5 sources)Exposure to acute respiratory syndrome coronavirus [...] status; Translations: [Other specified counseling]Onset: 08-29-2023 Resolved: 338192-36-4725JrjilletQaepnlcmq infection; unspecified site (1 source)Bacterial infectious disease; Translations: [Bacterial infection, unspecified, in conditions classified elsewhere and of unspecified site]Onset: 15-25-6156HbkpxmgaEchi; stupor; and brain damage (1 source)Somnolence; Translations: [Somnolence]Onset: 27-10-2168Qcdfiqfe Deficiency and other anemia (1 source)Anemia; Translations: [Unspecified anemia]Onset: 60-09-3889Uoocwydu Diabetes mellitus without complication (20 sources)Impaired fasting glycemia; Translations: [Impaired fasting glucose] Onset: 232832-16-3680XsuaotrvUevwbzxm of upper limb (13 sources)Fracture of unspecified carpal bone, right wrist, initial encounter for closed fracture; Translations: [Fracture of right wrist]Onset: 08-03-2024 37-69-4422IboqosjdOtxlyrk and fatigue (20 sources)Fatigue; Translations: [Other malaise and fatigue]Onset: 09-07-2021 EpisodicMood disorders (7 sources)Mood disordersOnset: 112080-23-2343Yqmkbwbre of unspecified nature or uncertain behavior (1 source)Neoplasm of uncertain behavior of kidney; 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]Onset: 32-81-7761YsjxvnuwNbmtt acquired deformities (4 sources)Unspecified deformity of right finger(s); Translations: [UNSPECIFIED DEFORMITY RIGHT FINGERS]Onset: 37-60-9756JtqzthlmNpunw connective tissue disease (1 source)Spasm; Translations: [Spasm of muscle]Onset: 27-24-5659WvzyedrrNcgoz connective tissue disease (1 source)Myalgia/myositis - multiple; Translations: [Unspecified myalgia and myositis]Onset: 16-03-4090OzsmekxsQbdpx ear and sense organ disorders (1 source)Acute otitis externa; Translations: [Other acute otitis externa]Onset: 40-11-4922BkenmxhbVweme lower respiratory disease (20 sources)Dyspnea; Translations: [Other respiratory abnormalities]Onset: 844365-84-5065AfyuxvprEqnlc lower respiratory disease (5 sources)Dyspnea, unspecified; Translations: [DYSPNEA UNSPECIFIED]Onset: 94-31-0609GyajpmvsUjnrv nervous system disorders (1 source)Altered sensation of skin; Translations: [Disturbance of skin sensation]Onset: 92-32-1472ZxcrxtdvKlylr non-traumatic joint disorders (1 source)Arthralgia of the lower leg; Translations: [Pain in joint, lower leg] Onset: 13-41-0981GntccpabWyrtx nutritional; endocrine; and metabolic disorders (12 sources)Obesity; Translations: [Obesity, unspecified]Onset: 02-25-2023 Resolved: 269296-54-0662XbvklrdQluhr screening for suspected conditions (not mental disorders or infectious disease) (1 source)Mammography abnormal; Translations: [Unspecified abnormal mammogram] Onset: 23-59-1031QksecnnlIrcpr upper respiratory infections (1 source)Acute maxillary sinusitis; Translations: [Acute maxillary sinusitis] Onset: 03-08-5957XwvcwnhtFpjkgxsi codes; unclassified (1 source)Postmenopausal state; Translations: [Asymptomatic postmenopausal status]Onset: 83-52-1979SwjifswrFvwvcprd codes; unclassified (1 source)C/O - a back symptom; Translations: [Other symptoms referable to back] Onset: 89-57-9669RrfnmfimTyvtvbev codes; unclassified (2 sources)Other specified health status; Translations: [Other specified health status]Onset: 78-43-8334PkfqlbbtPdxbrivw codes; unclassified (1 source)Other specified personal risk factors, not elsewhere classified; Translations: [Other specified personal risk factors, not elsewhere classified] Onset: 23-25-5251IlgnyiaeFqszkockigng (6 sources)Never smoked tobacco; Translations: [Never a smoker]Unclassified (1 source)LOW BACK PAIN, UNSPECIFIED; Translations: [LOW BACK PAIN, UNSPECIFIED] Onset: 62-72-9348Yfegxoudegwk (6 sources)Onset: 08-29-2023 Resolved: Results Test NameValueInterpretationReference RangeFacilityBasophils Auto (Bld) [#/Vol] Ordered By: Anupam Pereira on 70-06-2896Omefzncgd (Bld) [#/Vol]0.0 10 3/uL0.0-0.1 [facility] HospitalBasophils/100 WBC Auto (Bld)Ordered By: Anupam Pereira on 58-12-9467Dqvzqnjqd/100 WBC (Bld)0.4 %0.2-2.0[facility] HospitalEosinophils/100 WBC Auto (Bld)Ordered By: Anupam Pereira on 02-04-2025 Eosinophils/100 WBC (Bld)2.0 %0.9-7.0[facility] Erythrocyte distribution width Auto (RBC) [Ratio]Ordered By: Anupam Pereira on 34-90-4310Iyfdxnwphra distribution width (RBC) [Ratio]13.4 %11.0-15.0[facility] HospitalGlomerular filtration rate (GFR) estimation in non- AmericanOrdered By: Anupam Pereira on 89-51-7663SKR/1.73 sq M.predicted among non-blacks MDRD (S/P/Bld) [Vol rate/Area]mL/min/{1.73_m2}>=60 mL/min/1.73m 2FOhioHealth Southeastern Medical CenterHematocrit Auto (Bld) [Volume fraction]Ordered By: Anupam Pereira on 47-91-4856Lyrilosfuc (Bld) [Volume fraction]38.2 %36.0-48.0 [facility] HospitalHemoglobin [Mass/volume] in BloodOrdered By: Anupam Pereira on 75-96-7579Kthnhpfsex (Bld) [Mass/Vol]12.5 g/dL12.0-16.0[facility] HospitalLaboratory - Chemistry and Chemistry - challengeOrdered By: Anupam Pereira on 89-76-8312Pjwynhc [Mass/Vol]9.3 mg/dL8.5-10.1FOhioHealth Southeastern Medical CenterChloride [Moles/Vol]105 mmol/Y79-000TfplyszmiCleveland Clinic Fairview HospitalCO2 [Moles/Vol]30.2 mmol/L21.0-32.0[facility] HospitalCreatinine [Mass/Vol]0.75 mg/dL0.55-1.02[facility] GFR/1.73 sq M.predicted MDRD (S/P/Bld) [Vol rate/Area]mL/min/{1.73_m2}>=60 mL/min/1.73m [address] [place], [place] [address]Glucose [Mass/Vol]95 mg/wH77-017 [facility] HospitalPotassium [Moles/Vol]3.9 mmol/L3.5-5.1FMarietta Osteopathic Clinicodium [Moles/Vol]143 mmol/H302-219QtylfhtzsCleveland Clinic Fairview HospitalUrea nitrogen [Mass/Vol]17.0 mg/dL7.0-18.0[facility] HospitalUrea nitrogen/Creatinine [Mass ratio]22.7 mg/mgCleveland Clinic Fairview HospitalBilirubin Ql (U)NegativeNEGBluffton Hospital Glucose (U) [Mass/Vol]NegativeNEGATIVECleveland Clinic Fairview HospitalKetones Ql (U)NegativeNEGBluffton HospitalpH (U)6.0 [pH]5.0-9.0 [facility] Hospitalpecific gravity (U) [Rel density]1.025 1.005-1.025[facility] HospitalUrobilinogen Qn (U)2.0 {Trish'U}/dLAbnormal0.2-1.0[facility] HospitalLaboratory - Hematology and Cell countsOrdered By: Anupam Pereira on 41-58-4221Klqimpmb granulocytes/100 WBC (Bld)0.4 %0.0-0.5FOhioHealth Southeastern Medical Center Laboratory - Specimen informationOrdered By: Anupam Pereira on 02-04-2025 Appearance (U)CLEARCLEARFOhioHealth Southeastern Medical CenterColor (U)LT. YELLOW YELLOWCleveland Clinic Fairview HospitalLaboratory - UrinalysisOrdered By: Anupam Pereira on 83-90-6482Jgvvgzgbf esterase Test strip Ql (U)NegativeNEGBluffton HospitalNitrite Ql (U)NegativeNEGBluffton HospitalProtein Ql (U)NegativeNEG/TRACECleveland Clinic Fairview HospitalLeukocytes [#/volume] corrected for nucleated erythrocytes in Blood by Automated coun Ordered By: Anupam Pereira on 11-32-0369UXG corrected for nucl RBC Auto (Bld) [#/Vol]7.4 10 3/uL4.0-11.0[facility] HospitalLymphocytes Auto (Bld) [#/Vol]Ordered By: Anupam Pereira on 91-71-3309Zelbzukwvoy (Bld) [#/Vol]1.8 10 3/uL1.2-3.8[facility] HospitalLymphocytes/100 WBC Auto (Bld) Ordered By: Anupam Pereira on 17-90-6116Nutkgsusbqa/100 WBC (Bld)24.4 %20.5-60.0 [facility]H Auto (RBC) [Entitic mass]Ordered By: Anupam Pereira on 57-88-4264QMD (RBC) [Entitic mass]28.3 pg26.7-34.0[facility] HospitalMCHC Auto (RBC) [Mass/Vol]Ordered By: Anupam Pereira on 02-04-2025 MCHC (RBC) [Mass/Vol]32.7 g/dL29.9-35.2FOhioHealth Southeastern Medical CenterMCV Auto (RBC) [Entitic vol]Ordered By: Anupam Pereira on 30-74-3050ZPB (RBC) [Entitic vol]86.6 fL81.0-99.0[facility] HospitalMonocytes Auto (Bld) [#/Vol]Ordered By: Anupam Pereira on 81-48-5357Twlvbvtbs (Bld) [#/Vol]0.7 10 3/uL 0.3-0.8[facility] HospitalMonocytes/100 WBC Auto (Bld)Ordered By: Anupam Pereira on 66-96-7332Eiksdqrun/100 WBC (Bld)8.8 %1.7-12.0[facility] HospitalNeutrophils Auto (Bld) [#/Vol]Ordered By: Anupam Pereira on 89-53-4394Jgjltywzkov (Bld) [#/Vol]4.7 10 3/uL1.4-6.5FOhioHealth Southeastern Medical CenterNeutrophils/100 WBC Auto (Bld)Ordered By: Anupam Pereira on 02-04-2025 Neutrophils/100 WBC (Bld)64.0 %43.0-75.0[facility] HospitalNo Panel InformationOrdered By: Anupam Pereira on 70-82-8650Vhtltcqstip # (Auto)0.2 10 3/uL0.0-0.7FOhioHealth Southeastern Medical CenterImmature Granulocyte # (Auto)0.03 10 3/uL0.00-0.03[facility] HospitalUrine Occult BloodTRACE-I NEGATIVECleveland Clinic Fairview HospitalPlatelet mean volume Auto (Bld) [Entitic vol]Ordered By: Anupam Pereira on 32-03-8742Npncdbel mean volume (Bld) [Entitic vol]9.8 fL9.5-13.5FOhioHealth Southeastern Medical CenterPlatelets Auto (Bld) [#/Vol]Ordered By: Anupam Pereira on 34-13-6273Bsexybqbi (Bld) [#/Vol]322 10 3/uL 150-450C[facility] HospitalRBC Auto (Bld) [#/Vol]Ordered By: Anupam Pereira on 66-35-5423HGR (Bld) [#/Vol]4.41 10 6/uL4.20-5.40[facility] Memorial Hospitalerum or plasma anion gap determinationOrdered By: Anupam Pereira on 72-99-7755Bsbey gap [Moles/Vol]11.7 mmol/LFOhioHealth Southeastern Medical Center Magnetic resonance imaging reportOrdered By: Harsh Ríos on 08-66-8777Enftc reportUN[facility]ITY [facility] [address] MRI Report Signed Patient: Nya Bell MR#: [id number] : 1955 Acct:[id number] Age/Sex: 68 / F ADM Date: 5 Loc: MR [facility]: [facility] Dr: Maren Aden Copies to: Maren Aden~ Ordering Provider: Maren Aden Date of Service: 08/03/24 XR/XR pre/post mri xray: S52.591A ([id number]) MR/MR wrist RT wo con: SEE ORDER [...] Harsh Ríos M.D.08/03/2024 3:45 PM Dictation Location: [place] [address] Transcribed By: [facility] 08/03/24 1545 Dictated By: Harsh Ríos DO 08/03/24 1520 Signed By: 08/03/24 1545 [facility] HospitalXR pre/post mri xrayon 74-76-9482FC pre/post mri xrayUNIVERSITY [facility] [place] [address] [place] [address] MRI Report Signed Patient: Nya Bell MR#: [id number] : 1955 Acct:[id number] Age/Sex: 68 / F ADM Date: 08/03/24 Loc: MR Room: [facility] Attending Dr: Maren Aden Copies to: Maren Aden Ordering Provider: Maren Aden Date of Service: 08/03/24 XR/XR pre/post mri xray: S52.591A ([id number]) MR/MR wrist RT wo con: SEE ORDER [...] Harsh Ríos M.D.08/03/2024 3:45 PM Dictation Location: [place] [address] Transcribed By: [facility] 08/03/24 1545 Dictated By: Harsh Ríos DO 08/03/24 1520 Signed By: 08/03/24 1545NoUNC Health Johnston Clayton Physician AptygB9E with Estimated Average Gluon 82-09-2818Dbpfzos [Mass/Vol]114 mg/dLNoUNC Health Johnston Clayton Physician GroupComment on above:Result Comment: PERFORMED BY: [address] [place] [address] PATHOLOGIST LEAD SIMULATION MODELING ENGINEER ARASELI SAHU M.D.Performed By: #### CBCNO, A1C WT eA, LIPID, TSH3 wRFLX #### [facility] [address] [place] [address] NUDYxO9f (Bld) [Mass fraction]5.6 %Normal4.3-5.6The [facility] Physician [facility] Community HospitalComment on above:Result Comment: Increased risk for diabetes: 5.7 - 6.4 diabetes: >6.4 glycemic control for adults with diabetes: <7.0Performed By: #### CBCNO, A1C WT eA, LIPID, TSH3 wRFLX #### [address] [place] [address] USABlood estimated average glucose determination by estimation from glycated hemoglobinOrdered By: Rosemarie Lea on 07-12-2024 Average glucose Estimated from glycated hemoglobin (Bld) [Mass/Vol]Glucose mean value [Mass/volume] in Blood Estimated from glycated hemoglobinCleveland Clinic Fairview HospitalCholesterol [Mass/volume] in Serum or PlasmaOrdered By: Rosemarie Lea on 29-01-8624Xkcnyecirfv [Mass/Vol]Cholesterol [Mass/volume] in Serum or Vtlufy614-236XrtuphhxnCleveland Clinic Fairview HospitalComment on above:Chol less than 200 mg/dl low riskChol 201-239 mg/dl borderline riskChol 240 mg/dl and greater high riskCholesterol in HDL [Mass/volume] in Serum or PlasmaOrdered By: Rosemarie Lea on 17-57-4849Kewichiuxld in HDL [Mass/Vol]Serum or plasma high density lipoprotein (HDL) cholesterol yxfmshszgoe34-03LazigoelnCleveland Clinic Fairview HospitalComment on above:HDL CHOL ATP-III CLASSIFICATION Cardiovascular RiskHDL > or equal to 60 mg/dL LOWHDL < 40 mg/dL HIGHCholesterol in LDL Calc [Mass/Vol] Ordered By: Rosemarie Lea on 76-94-7456Zywixzteyon in LDL [Mass/Vol] Cholesterol in LDL [Mass/volume] in Serum or Plasma by calculation0-100C[facility]view HospitalComment on above:LDL ATP III CLASSIFICATIONLDL less than 100 mg/dL OptimalLDL 100-129 mg/dL Near or above cjoyqofRPZ930-638 mg/dL Borderline highLDL 160-189 mg/dL HighLDL greater than 189 mg/dL Very high Cholesterol in VLDL Calc [Mass/Vol]Ordered By: Rosemarie Lea on 07-12-2024 Cholesterol in VLDL [Mass/Vol]Cholesterol in VLDL [Mass/volume] in Serum or Plasma by calculationCleveland Clinic Fairview HospitalErythrocyte distribution width Auto (RBC) [Ratio]Ordered By: Rosemarie Lea on 54-80-9932Sazdtcuczmi distribution width (RBC) [Ratio]Erythrocyte distribution width [Ratio] by Automated count11.9-15.3FOhioHealth Southeastern Medical CenterHematocrit Auto (Bld) [Volume fraction]Ordered By: Rosemarie Lea on 51-69-6119Awfpksctgz (Bld) [Volume fraction]Hematocrit [Volume Fraction] of Blood by Automated count 34.0-46.4FOhioHealth Southeastern Medical CenterHemoglobin A1c/Hemoglobin.total in BloodOrdered By: Rosemarie Lea on 95-96-5878ElC5a (Bld) [Mass fraction] Hemoglobin A1c percentage4.3-5.6FOhioHealth Southeastern Medical CenterComment on above:Increased risk for diabetes: 5.7 - 6.4diabetes: >6.4glycemic control for adults with diabetes: <7.0Hemoglobin [Mass/volume] in BloodOrdered By: Rosemarie Lea on 82-47-7483Kzrcyjrdvb (Bld) [Mass/Vol]Hemoglobin [Mass/volume] in Blood11.8-15.4FOhioHealth Southeastern Medical CenterHemogram CBC Without Diffon 56-25-0903Numrowzxwfa distribution width (RBC) [Ratio]14.4 %Niyvhs02.9-15.3The [facility] Physician GroupComment on above:Performed By: #### CBCNO, A1C WTH eA, LIPID, TSH3 wRFLX #### [facility] [address] [place] [address] USAHematocrit (Bld) [Volume fraction]36.0 %Ijnzgs80.0-46.4The [facility] Physician GroupComment on above:Performed By: #### CBCNO, A1C WTH eA, LIPID, TSH3 wRFLX #### [facility] [address] [place] [address] USAHemoglobin (Bld) [Mass/Vol]12.3 g/yXUbfmjb51.8-15.4The [facility] Physician GroupComment on above:Performed By: #### CBCNO, A1C WTH eA, LIPID, TSH3 wRFLX #### [facility] [address] [place] [address] USAH (RBC) [Entitic mass]29.0 ktIwpfnn85.7-34.3The [facility] Physician GroupComment on above:Performed By: #### CBCNO, A1C WTH eA, LIPID, TSH3 wRFLX #### [facility] [address] [place] [address] USAV (RBC) [Entitic vol]84.7 sEZwenrh15-727Ggj [facility] Physician GroupComment on above:Performed By: #### CBCNO, A1C WTH eA, LIPID, TSH3 wRFLX #### [facility] [address] [place] [address] USAMean Corpuscular HGB Conc34.2 g/eQCxosym09.0-35.0The [facility] Physician GroupComment on above:Performed By: #### CBCNO, A1C WTH eA, LIPID, TSH3 wRFLX #### [place] [address] USAPlatelet mean volume (Bld) [Entitic vol]9.0 fLNormal 6.3-10.7The [facility] Physician GroupComment on above:Result Comment: PERFORMED BY: [place] [address] PATHOLOGIST LEAD SIMULATION MODELING ENGINEER ARASELI SAHU M.D.Performed By: #### CBCNO, A1C WTH eA, LIPID, TSH3 wRFLX #### [place] [address] USAPlatelets (Bld) [#/Vol]299 10*3/zCIlejrq899-242Rvn [facility] Physician GroupComment on above:Performed By: #### CBCNO, A1C WTH eA, LIPID, TSH3 wRFLX #### [place] [address] USARBC (Bld) [#/Vol]4.25 10*6/uLNormal3.60-5.00The [facility] Physician GroupComment on above:Performed By: #### CBCNO, A1C WTH eA, LIPID, TSH3 wRFLX #### [place] [address] USAWBC (Bld) [#/Vol]8.0 10*3/uLNormal3.8-11.6The [facility] Physician GroupComment on above:Performed By: #### CBCNO, A1C WTH eA, LIPID, TSH3 wRFLX #### [address] [place] [address] USALeukocytes [#/volume] corrected for nucleated erythrocytes in Blood by Automated counOrdered By: Rosemarie Lea on 07-04-0223DDA corrected for nucl RBC Auto (Bld) [#/Vol]Leukocytes [#/volume] corrected for nucleated erythrocytes in Blood by Automated coun3.8-11.6FOhioHealth Southeastern Medical CenterLipid Panelon 24-72-4679Diuhgzdstwm [Mass/Vol]145 mg/dLNormal 140-200The [facility] Physician GroupComment on above:Result Comment: Chol less than 200 mg/dl low risk Chol 201-239 mg/dl borderline risk Chol 240 mg/dl and greater high riskPerformed By: #### CBCNO, A1C WTH eA, LIPID, TSH3 wRFLX #### [facility] [address] [place] [address] USACholesterol in HDL [Mass/Vol]51 mg/eZMxtyyl47-03Mpa [facility] Physician GroupComment on above:Result Comment: HDL CHOL ATP-III CLASSIFICATION Cardiovascular Risk HDL > or equal to 60 mg/dL LOW HDL < 40 mg/dL HIGHPerformed By: #### CBCNO, A1C WTH eA, LIPID, TSH3 wRFLX #### [facility] [address] [place] [address] USACholesterol.total/Cholesterol in HDL [Mass ratio]2.8 {ratio}Normal<5.0The [facility] Physician GroupComment on above:Performed By: #### CBCNO, A1C WTH eA, LIPID, TSH3 wRFLX #### [facility] [address] [place] [address] USALDL Cholesterol,Bkpyhuivpy67 mg/dLNormal0-100The [facility] Physician GroupComment on above:Result Comment: LDL ATP III CLASSIFICATION LDL less than 100 mg/dL Optimal LDL 100-129 mg/dL Near or above optimal LDL 130-159 mg/dL Borderline high LDL 160-189 mg/dL High LDL greater than 189 mg/dL Very highPerformed By: #### CBCNO, A1C WTH eA, LIPID, TSH3 wRFLX #### [facility] [address] [place] [address] USATriglyceride w/Lcnojo69 mg/dLNormal0-149[facility] Physician GroupComment on above:Result Comment: TRIG ATP III CLASSIFICATION TRIG less than 150 mg/dL Normal TRIG 150-199 mg/dL Borderline high TRIG 200-500 mg/dL High TRIG greater than 500 mg/dL Very high Standard traceable to the Center for Disease Conrtrol and Prevention (CDC) test method.Performed By: #### CBCNO, A1C [facility] eA, LIPID, TSH3 wRFLX #### [facility] [address] [place] [address] USAVLDL GNXIDEPDLBM21 mg/dLNormBaptist Health Fishermen’s Community Hospital Physician GroupComment on above:Performed By: #### CBCNO, A1C [facility] eA, LIPID, TSH3 wRFLX #### [facility] [address] [place] [id number] [facility] Auto (RBC) [Entitic mass]Ordered By: Rosemarie Lea on 57-13-7674KXE (RBC) [Entitic mass]MCH [Entitic mass] by Automated count 24.7-34.3FProtestant Deaconess Hospital Auto (RBC) [Mass/Vol]Ordered By: Rosemarie Lea on 23-82-8956YTRT (RBC) [Mass/Vol]MCHC [Mass/volume] by Automated count32.0-35.0[facility] Auto (RBC) [Entitic vol]Ordered By: Rosemarie Lea on 31-79-1779TXD (RBC) [Entitic vol]MCV [Entitic volume] by Automated -956AprsxryqoCleveland Clinic Fairview Hospital Platelet mean volume Auto (Bld) [Entitic vol]Ordered By: Rosemarie Lea on 66-42-1926Nhdrzcac mean volume (Bld) [Entitic vol]Platelet mean volume [Entitic volume] in Blood by Automated count6.3-10.7FOhioHealth Southeastern Medical Center Platelets Auto (Bld) [#/Vol]Ordered By: Rosemarie Lea on 10-60-1804Mwpwptjre (Bld) [#/Vol]Platelets [#/volume] in Blood by Automated -765GzdkykyvzCleveland Clinic Fairview HospitalRBC Auto (Bld) [#/Vol]Ordered By: Rosemarie Lea on 97-82-6480GJA (Bld) [#/Vol]Erythrocytes [#/volume] in Blood by Automated count 3.60-5.00Tri[facility]-Hyde Memorial Hospitalerum or plasma total cholesterol/high density lipoprotein (HDL) cholesterol mass ratOrdered By: Rosemarie Lea on 52-42-9226Qfaolsadryj.total/Cholesterol in HDL [Mass ratio]Serum or plasma total cholesterol/high density lipoprotein (HDL) cholesterol mass rat<5.0[facility] HospitalThyroid Stim Hormone w/Rflxon 47-44-9000Ndlronc Stim Hormone w/Rflx1.67 u[iU]/mLNormal0.45-5.33The [facility] Physician GroupComment on above:Result Comment: PERFORMED BY: [facility] [address] [place] [address] PATHOLOGIST LEAD SIMULATION MODELING ENGINEER ARASELI SAHU M.D.Performed By: #### CBCNO, A1C WTH eA, LIPID, TSH3 wRFLX #### [place] [address] USAThyrotropin [Units/volume] in Serum or PlasmaOrdered By: Rosemarei Lea on 97-87-9995NZJ QnThyrotropin [Units/volume] in Serum or Plasma 0.45-5.33[facility] HospitalTriglyceride [Mass/volume] in Serum or PlasmaOrdered By: Rosemarie Lea on 97-19-0107Whhjojltlqef [Mass/Vol] Triglyceride [Mass/volume] in Serum or Plasma0-149[facility] HospitalComment on above:TRIG ATP III CLASSIFICATIONTRIG less than 150 mg/dL NormalTRIG 150-199 mg/dL Borderline highTRIG 200-500 mg/dL High TRIG greater than 500 mg/dL Very highStandard traceable to the Center for Disease Conrtrol and Prevention (CDC) test method.HbA1c HPLC (Bld) [Mass fraction]on 05-31-2024 HbA1c (Bld) [Mass fraction]Hemoglobin A1c/Hemoglobin.total in Blood by HPLC [facility] HospitalBASIC METABOLIC PANLon 41-67-8163Esyoj gap [Moles/Vol]10 mmol/LNormal5-15[facility] City HospitalComment on above: Performed By: #### BMP #### [facility] ([id number]) [address], [address] [place], [place] [address]Piadfwm [Mass/Vol]9.3 mg/dLCleveland Clinic Fairview Hospital Comment on above:Performed By: #### BMP #### [facility] ([id number]) [address], [address] [place], [place] [address]Horiiezx [Moles/Vol]105 mmol/[facility] Comment on above:Performed By: #### BMP #### [facility] ([id number]) [address] [facility], [address] [place], [place] [address]BX2 [Moles/Vol]26 mmol/[facility] HospitalComment on above:Performed By: #### BMP #### [facility] ([id number]) [address] [facility], [address] [place], [place] [address]Ssqreyrrll [Mass/Vol]0.73 mg/dLCleveland Clinic Fairview Hospital Comment on above:Result Comment: METHOD TRACEABLE TO IDMS STANDARDPerformed By: #### BMP #### [facility] ([id number]) [address], [address] [place], [place] [address]LAP/1.73 sq M.predicted among non-blacks MDRD (S/P/Bld) [Vol rate/Area]89 mL/min/{1.73_m2}Normal>59Norwalk Memorial HospitalComment on above:Result Comment: Reported eGFR is based on the CKD-EPI 1 equation that does not use a race coefficient.Performed By: #### BMP #### [facility] ([id number]) [address], [address] [place], [place] [address]Hcyxjxo [Mass/Vol]121 mg/dLCleveland Clinic Fairview Hospital Comment on above:Performed By: #### BMP #### [facility] ([id number]) [address], [address] [place], [place] [address]Xyrjjcwwr [Moles/Vol]3.8 mmol/LFOhioHealth Southeastern Medical Center Comment on above:Performed By: #### BMP #### [facility] ([id number]) [address] [place] [address], [address] [place], [place] [address]Vfeanr [Moles/Vol]141 mmol/LFOhioHealth Southeastern Medical Center Comment on above:Performed By: #### BMP #### [facility] ([id number]) [address] [place] [address], [address] [place], [place] [address]Rnjq nitrogen [Mass/Vol]19 mg/dLCleveland Clinic Fairview HospitalComment on above:Performed By: #### BMP #### [facility] ([id number]) [address] [place] [address], [address] [place], [place] [address]Ua Panel Informationon 57-37-5354Clgdoqkeo GFR (Non- Lsnyswow20 mL/minCleveland Clinic Fairview HospitalCardiac Device Check - In Clinicon 86-78-6508ZjdphhidnbSt. John of God Hospital Work Phone: Radiology Study observation (narrative)[facility] Work Phone: Influenza virus B Ag [Presence] in Upper respiratory specimen by Rapid immunoassayon 46-32-5550FVWFN Ag IA.rapid Ql (Nph)Negative [facility] HospitalNo Panel Informationon 52-19-7689Gtkavhfhq Type A (Rapid)NegativeCleveland Clinic Fairview HospitalPO SARS CoV-2 Antigen PositiveCleveland Clinic Fairview HospitalBasi metabolic 2000 panelon 08-29-2023 Anion gap [Moles/Vol]11 mmol/PDsddyr05-81DdaesfrjnsHighland District HospitalComment on above:Performed By: #### 25845-1 #### EMILE YEE ([id number]) [facility] ([facility] [address] [place] [address]Xnzczpd [Mass/Vol]9.5 mg/dLNormal8.6-10.3[facility] Hospital ToledoComment on above:Performed By: #### 29589-3 #### EMILE YEE ([id number]) [facility] ([facility]) [address] [place], [place] [address]Laxfpavc [Moles/Vol]107 mmol/WTuducl80-991FbfvqrpexuRegency Hospital ToledoComment on above:Performed By: #### 60630-0 #### PONCEIBRAMONA VETO PHILLIP ([id number]) [facility] ([facility]) [address] [place], [place] [address]YL0 [Moles/Vol]29 mmol/VIcfavf57-90QwllasbtjdHighland District HospitalComment on above:Performed By: #### 08518-5 #### PONCEIBRAMONA VETO PHILLIP ([id number]) [facility] ([facility]) [address] [place] [address]Nslnfskves [Mass/Vol]0.75 mg/dLNormal0.50-1.05UnHighland District HospitalComment on above:Performed By: #### 10678-7 #### EMILE VETO PHILLIP ([id number]) [facility] ([facility]) [address] [place] [address]Rukjxazxmd filtration rate/1.73 sq M.skkoojlrn61 mL/min/1.73m*2 Normal>60UnHighland District HospitalComment on above:Result Comment: Calculations of estimated GFR are performed using the 2020 CKD-EPI Study Refit equation without the race variable for the IDMS-Traceable creatinine methods. https://jasn.asnjournals.org/content//ASN.3057326085Mzzdszwpe By: #### 12274-8 #### PONCEIBRAMONA VETO PHILLIP ([id number]) [facility] ([facility]) [address] [place], [place] [address]Bmpdgvg [Mass/Vol]105 mg/uFVruw16-97VsvpuoucnkRegency Hospital ToledoComment on above:Performed By: #### 06959-8 #### PONCEIBRAMONA VETO PHILLIP ([id number]) [facility] ([facility]) [address] [place], [place] [address]Nboqeylnh [Moles/Vol]4.4 mmol/LNormal3.5-5.3Untexas [facility] Maria Medical CenterComment on above:Performed By: #### 94019-8 #### EMILE YEE ([id number]) [facility] ([facility]) [address] [place] [address]Szqqxt [Moles/Vol]143 mmol/NKnswuz139-732XebtushjnwRegency Hospital ToledoComment on above:Performed By: #### 23127-7 #### PONCEIBRAMONA YEE ([id number]) [facility] ([facility]) [address] [place] [address]Faro nitrogen [Mass/Vol]19 mg/dLNormal6-23Reg[facility] Hospital ToledoComment on above:Performed By: #### 45862-8 #### EMILE YEE ([id number]) [facility] ([facility]) [address] [place] [address]LDS 12 lead (Clinic Performed)on 11-27-9606Cxd scanCPEast [facility] Work Phone: Echocardiogramon 72-97-3084WsbkejfqrogvbcfeYoist[address], [address] [place] [address] TRANSTHORACIC ECHOCARDIOGRAM REPORT Patient Name: NYA BELL Main[place] Physician: [id number] Lupe Rosado MD, [facility] Study Date: 11/22/2022 Referring LUPE ROSADO Physician: MRN/PID: [id number] PCP: Anupam Pereira Accession/Order#: [id number] [facility] Location: Date of : 1955 Fellow: Gender: F Nurse: Admit Date: Senior Ui Web Developer: Ashlyn Cam RDCS [facility] Height: 152.40 cm CC Report to: Weight: 91.17 kg Study Type: Echocardiogram BSA: 1.87 m2 Blood Pressure: 134 /62 mmHg Diagnosis/ICD: I50.22-Chronic systolic (congestive) heart failure (CHF); I42.9-Cardiomyopathy, unspecified Indication: AICD, WALDEMAR, Obesity Procedure/CPT: Echo Complete w Full Doppler-66947 Study Detail: The following Echo studies were [...] 0.8 m/s (0.6-0.9m/s) PV Max P.3 mmHg [id number] Lupe Rosado MD, FACC Electronically signed on 11/22/2022 at 1:01:56 PM [facility] HlthOffice Visit (Cardiology)on 64-93-3162Zaxyce-up visitDiagnoses/Problems Assessed Chronic systolic congestive heart failure [...] Per Dr. Lupe Rosado MD, schedule at [facility] for echo Follow up in [...] scheduled. We will arrange for that at [facility]. Her weight is unchanged [...] AICD, device is assessed by electrophysiology at [facility] 3?cardiac catheterization 7 years [...] Recorded: 09Oct2022 10:59AM Heart Rate72, L Radial Wmsrchgq698, LUE, Sitting Srmsrmflm62, LUE, Sitting Height5 ft Udhaqc438 lb BMI Ptkzxqostn81.26 kg/m2 BSA Calculated1.87 Tobacco Useb) No PHQ-2 [...] c (more content not included)...NormalUH TouchworksTobacco Screening.on 87-60-6777Cyny risk assessmenta) No falls within the last yearMPEllett Memorial Hospital [email or web address] 250 DO Work Phone: Tobacco use status CPHSb) NoMPWest Seattle Community Hospital [employer] 250 DO Work Phone: Tobacco Screening.Yes-[facility] [email or web address] 250 DO Work Phone: CBC AUTO DIFFon 65-77-8531EHKD #0.0 103/ulNormal 0.0-0.1[facility] on above:Performed By: #### CBC ####[facility] [address] [place] [address]Dr.Yilan Mazariegos Basophils/100 WBC (Bld)0.4 %Normal0.2-2.0[facility] on above: Performed By: #### CBC ####[facility] [address] [place] [address]Dr.Yilan ChangEO #0.2 103/ulNormal0.0-0.7[facility] on above:Performed By: #### CBC ####[facility] [address] [place], [place] [address]Dr.Yilan ChangEosinophils/100 WBC (Bld)2.0 %Normal0.9-7.0[facility] on above:Performed By: #### CBC ####[facility] Dialsxfqxx[address] [place], [place] [address]Dr.Phillip ChangErythrocyte distribution width (RBC) [Ratio]13.8 %Normal 11.0-15.0The [facility] - Columbus SouthComment on above:Performed By: #### CBC ####[facility] Zr[address] [place], [place] [address]Dr. Rerebrent ChangHematocrit (Bld) [Volume fraction]36.3 %Pgpasv60.0-48.0The Holden HospitalComment on above:Performed By: #### CBC ####[facility] Aswl[address]ql[address] [place], [place] [address]Dr.Rerebrent ChangHemoglobin (Bld) [Mass/Vol]12.1 g/wSRrdqnm28.0-16.0The [facility] SouthComment on above: Performed By: #### CBC ####[facility] Fjvwqz[address] [place], [place] [address]Dr.Rerebrent ChangIG #0.02 10e3/ulNormal0.00-0.03The [facility] SouthComment on above:Performed By: #### CBC ####[facility] V[address]bf[address]rec[address] [place], [place] [address]Dr.Phillip ChangIG %0.3 %Normal 0.0-0.5The [facility] Columbus SouthComment on above:Performed By: #### CBC ####[facility] [id number] [place], [place] [address]Dr.Rerebrent ChangLYMPH #1.9 103/ulNormal1.2-3.8The [facility] SouthComment on above:Performed By: #### CBC ####[facility] [address]ykz[address]vc[address] [place], [place] [address]Dr.Rerebrent ChangLymphocytes/100 WBC (Bld)25.7 %Eqsakk09.5-60.0[facility] [place] SouthComment on above:Performed By: #### CBC ####[facility] [facility] Sbkwfwgk[address] [place], [place] [address]Dr.Rerebrent ChangMANUAL DIFF REQ NONormalThe [facility] SouthComment on above:Performed By: #### CBC ####[facility] [address] [place] [address]Dr. Phillip MazariegosH (RBC) [Entitic mass]28.7 zeUcfuqj45.7-34.0The [facility] Comment on above:Performed By: #### CBC ####[facility] Rnwtoswlke[address] [place], [place] [address]Dr.Phillip MazariegosHC (RBC) [Mass/Vol]33.3 g/dL Uxfgzu54.9-35.2The [facility] SouthComment on above:Performed By: #### CBC ####[facility] Syoixoxneb[address] [place], [place] [address]Dr. Rerebrent MazariegosV (RBC) [Entitic vol]86.0 xWCxesni25.0-99.0The [facility] Comment on above:Performed By: #### CBC ####[facility] Joiaynsvix[address] [place], [place] [address]Dr.Phillip MazariegosMONO #0.6 103/ulNormal0.3-0.8 The [facility] SouthComment on above:Performed By: #### CBC ####[facility] Jjyjviijtd[address] [place], [place] [address]DrMilton Mazariegos Monocytes/100 WBC (Bld)7.8 %Normal1.7-12.0The [facility] SouthComment on above: Performed By: #### CBC ####[facility] Cwnzjnclvg[address] [place], [place] [address]Dr.Rerebrent YairNEUT #4.7 103/ulNormal1.4-6.5The [facility] SouthComment on above:Performed By: #### CBC ####[facility] Qbghzujeww7[address] [place], [place] [address]Dr.Phillip MazariegosNeutrophils/100 WBC (Bld)63.8 %Ztxgcq47.0-75.0The [facility] SouthComment on above:Performed By: #### CBC ####[facility] Npwntvgeqj56[address] [place], [place] [address]Dr.Phillip MazariegosPlatelet mean volume (Bld) [Entitic vol]9.5 fLNormal9.5-13.5 The [facility] SouthComment on above:Performed By: #### CBC ####[facility] [address] [place] [address]Dr.Phillip MazariegosPLT269 103/jiPwrhua633-088Rti [facility] SouthComment on above:Performed By: #### CBC ####[facility] [address]ke[address] [place] [address]Dr. Phillip MazariegosRBC4.22 106/ulNormal4.20-5.40The [facility] SouthComment on above: Performed By: #### CBC ####[facility] Dmdwwvbqer84[address] [place], [place] [address]Dr.Phillip MazariegosWBC7.4 103/ulNormal4.0-11.0The [facility] SouthComment on above:Performed By: #### CBC ####[facility] Pnbnmlvurh[address] [place], [place] [address]Dr.Phillip MazariegosFERRITINon 83-78-5234Xaftpeln [Mass/Vol]212.0 ng/mLNormal8.0-252.0The [facility] Comment on above:Performed By: #### OCTAVIO, VITB12, VITAD #### [facility] Laboratory [address] [place] [address] Dr. Phillip MazariegosVITAMIN B12on 33-99-2901Taokvjjnu (Vitamin B12) [Mass/Vol]698.0 pg/rYOagnfs889.0-986.0The [facility] Systemment on above:Performed By: #### FERR, VITB12, VITAD #### [facility] Laboratory [address] [address] [address] Phillip MazariegosVITAMIN D 25 OHon 29-41-9182PEO D 25-OH28.1 ng/mLNormalThe Memorial Health Systemment on above:Performed By: #### FERR, VITB12, VITAD ####[facility] Ygkyplhgij9[address] [place], [place] [address]Dr. Phillip MazariegosVIT D RANGESSEE [facility] SystemComment on above: Result Comment: <20 ng/mL Vit D deficient 20 - <30 ng/mL Vit D insufficient 30 - 100 ng/mL Vit D sufficient >100 ng/mL Potential ToxicityPerformed By: #### FERR, VITB12, VITAD ####[facility] X[address]lpv[address] [place] [address]Dr. Yilan ChangPROF CHEM 8 (BAS METB)on 04-23-2022 Anion gap [Moles/Vol]10.8 mmol/LNormalThe [facility] SouthComment on above: Performed By: #### BMP ####[facility] Eeidwmgucb[address] [place], [place] [address]Dr.Yilan ChangCalcium [Mass/Vol]9.1 mg/dLNormal 8.5-10.1The [facility] SouthComment on above:Performed By: #### BMP ####[facility] Ohttnkqioi7435[address] [place], [place] [address]Dr. Yilan ChangChloride [Moles/Vol]108 mmol/LCritically ssjc07-123Yce [facility] SouthComment on above:Performed By: #### BMP ####[facility] Qqqajamsip[address] [place], [place] [address]Dr.Yilan ChangCO2 [Moles/Vol] 29.6 mmol/VJumhpy81.0-32.0The [facility] SouthComment on above:Performed By: #### BMP ####[facility] Nptdblbxkf19[address] [place], [place] [address]Dr.Yilan ChangCreatinine [Mass/Vol]0.85 mg/dLNormal0.55-1.02The [facility] SouthComment on above:Performed By: #### BMP ####[facility] Qjtinqowsg3639[address] [place], [place] [address]Dr.Yilan ChangEGFR-AF AUSTRIAN>60Normal>=60The [facility] SouthComment on above:Performed By: #### BMP ####[facility] Mwmebquagz[address] [place], [place] [address]Dr. Yilan ChangEGFR-NON AF AUSTRIAN>60Normal>=60The [facility] SouthComment on above:Performed By: #### BMP ####[facility] Ivmakcmdvh[address] [place], [place] [address]Ai.Phillip ChangGlucose [Mass/Vol]90 mg/tPGsqiue64-276 The [facility] SouthComment on above:Performed By: #### BMP ####[facility] Dowanriaf[address] [place] [address]Dr.Phillip Mazariegos Potassium [Moles/Vol]4.4 mmol/LNormal3.5-5.1The [facility]en HospitalComment on above:Performed By: #### BMP ####[facility] [address]zhjdkosww[address] [place] [address]Dr.Phillip ChangSodium [Moles/Vol]144 mmol/LNormal 136-145The [facility] SouthComment on above:Performed By: #### BMP ####[facility] Jttwqbwljd[address] [place] [address]Dr.Phillip ChangUrea nitrogen [Mass/Vol]24.0 mg/dLCritically high7.0-18.0The [facility] SouthComment on above:Performed By: #### BMP ####[facility] [address]fyg[address]jtcxm[address] [place] [address]Dr.Phillip ChangUrea nitrogen/Creatinine [Mass ratio] 28.2 mg/mgNormalThe [facility] SouthComhenry for[facility] on above:Performed By: #### BMP ####[facility] Ceoybrfcke[address] [place], [place] [address]Dr. Rerebrent Limice Visit (Cardiology)on 63-84-8233Upyhkc-up visit Diagnoses/Problems Assessed Chronic systolic congestive heart [...] Metabolic Panel; Status:Active - Retrospective Authorization; Requested for:[id number]; Echocardiogram; Status:Hold For - Scheduling,Retrospective Authorization; Requested for:[id number]; Class 2 obesity with body mass index (BMI) of 39.0 to 39.9 in adult Healthy Weight Tips; Status:Complete - Retrospective Authorization; Done: [id number] Some eating tips that can help you lose weight.; Status:Complete - Retrospective Authorization; Done: [id number] Patient Instructions Please bring all medicines, vitamins, [...] AICD, device is assessed by electrophysiology at [facility] 3?cardiac catheterization 7 years [...] negative for complaint. Vitals Vital Signs Recorded: 58Djo1990 11:16AM Heart Rate62, R Radial Ojsvsytu962, LUE, Sitting Xfuulfwuy99, LUE, Sitting Height5 ft Vuaitt077 lb 5 oz BMI Elwnuxdbtd67.32 kg/m2 BSA Calculated1.87 Tobacco Useb) No Falls [...] normal (more content not included)...Normal TouchworksTobacco Screening.on 20-89-3183Bvdq risk assessmenta) No falls within the last yearS[facility] [facility] DO Work Phone: Tobacco use status CPHSb) NoMForks [facility] [place] [facility] DO Work Phone: XR LSPINE MIN 4 VIEWSon 67-25-9843PQ LSPINE MIN 4 VIEWSEXAMINATION: XR LSPINE MIN [...] Electronically authenticated by: MAREN MARTEL Date: 2022-02-05 07:27[facility] CampusPROF CHEM 8 (BAS METB)on 64-98-3913Tohog gap [Moles/Vol]12.0 mmol/LNormalProtestant Deaconess HospitalComment on above:Performed By: #### BMP #### [facility] Laboratory [address] [place] [address] Dr. Phillip MazariegosCalcium [Mass/Vol]9.1 mg/dLNormal8.5-10.1[facility] Comment on above:Performed By: #### BMP #### [facility] Laboratory [address] [place] [address] Dr. Phillip MazariegosChloride [Moles/Vol]107 mmol/OVjljmk35-064ZbkProtestant Deaconess Hospital Comment on above:Performed By: #### BMP #### [facility] Laboratory [address] [address] [address] Phillip MazariegosCO2 [Moles/Vol]27.0 mmol/ADmujki59.0-32.0[facility] Comment on above:Performed By: #### BMP #### [facility] Laboratory [address] [address] [address] Phillip MazariegosCreatinine [Mass/Vol]0.89 mg/dLNormal0.55-1.02The [facility] SouthComment on above:Performed By: #### BMP #### [facility] Laboratory [address] [place] [address] Dr. Phillip MarreroGFR-AF AUSTRIAN>60Normal>=60The [facility] SouthComment on above:Performed By: #### BMP #### [facility] Laboratory [address] [address] [address] Phillip MarreroGFR-NON AF AUSTRIAN>60Normal>=60The [facility] SouthComment on above:Performed By: #### BMP #### [facility] Laboratory [address] [place] [address] Dr. Phillip MazariegosGlucose [Mass/Vol]109 mg/dLCritically psxt20-565Qel [facility] SouthComment on above:Performed By: #### BMP #### [facility] Laboratory [address] [place] [address] Dr. Phillip MazariegosPotassium [Moles/Vol]4.0 mmol/LNormal3.5-5.1The [facility] Comment on above:Performed By: #### BMP #### [facility] Laboratory [address] [place] [address] Dr. Phillip MazariegosSodium [Moles/Vol]142 mmol/MJxuhdp052-764Kkh [facility] Comment on above:Performed By: #### BMP #### [facility] Laboratory [address] [place] [address] Dr. Phillip MazariegosUrea nitrogen [Mass/Vol]19.0 mg/dLCritically high7.0-18.0The [facility]Comment on above:Performed By: #### BMP #### [facility] Laboratory [address] [place] [address] Dr. Phillip Valdivia nitrogen/Creatinine [Mass ratio]21.3 mg/mgNormalThe [facility] SouthComment on above:Performed By: #### BMP #### [facility] Laboratory [address] [place] [address] Dr. Phillip Wilde.on 33-85-9166Vslgz depression screening assessmentNoBonnie [place] [address] DO Work Phone: Adult depression screening assessmentYeRyan [place] [address] DO Work Phone: Fall risk assessmenta) No falls within the last year [place] [address] DO Work Phone: Tobacco use status CPHSb) NoMDavid Ville [address] DO Work Phone: Tobacco Screening.3-Nearly every dayBonnie [place] [address] DO Work Phone: Tobacco Screening.0-Not at allJill [place] [address] DO Work Phone: Tobacco Screening.Very DifficultJill [place] [address] DO Work Phone: CULTURE URINEon 65-86-9390KTAMLUJ URINEIsolate 1 Proteus mirabilis >100,000 cfu/mL of [...] 128 R F Trimethoprim/Sulfamethoxazole <=20 S FNormalThe [facility]Comment on above:Performed By: #### URCX ####[facility] [address] [place] [address]Dr. Phillip Mendoza AUTO DIFFon 49-51-4031NIJV #0.0 103/ulNormal0.0-0.1The [facility] SouthComment on above:Performed By: #### CBC #### [facility] Laboratory [address] [address] [address] Phillip MazariegosBasophils/100 WBC (Bld)0.4 %Normal0.2-2.0[facility] Comment on above:Performed By: #### CBC #### [facility] Laboratory [address] [address] [address] Phillip Recinos #0.1 103/ulNormal0.0-0.7The [facility] SouthComment on above: Performed By: #### CBC #### [facility] Laboratory [address] [address] [address] Phillip Marreroosinophils/100 WBC (Bld)1.9 %Normal0.9-7.0[facility] Comment on above:Performed By: #### CBC #### [facility] Laboratory [address] [address] [address] Phillip Marrerorythrocyte distribution width (RBC) [Ratio]13.4 %Opwbsu62.0-15.0 The [facility] SouthComment on above:Performed By: #### CBC #### [facility] Laboratory [address] [address] [address] Phillip MazariegosHematocrit (Bld) [Volume fraction]39.6 %Kksrip12.0-48.0[facility]acon[facility] HospitalComment on above:Performed By: #### CBC #### [facility] Laboratory [address] [address] [address] Phillip MazariegosHemoglobin (Bld) [Mass/Vol]13.0 g/tUIwnajn45.0-16.0The [facility]Comment on above:Performed By: #### CBC #### [facility] Laboratory [address] [place] [address] Dr. Phillip Menjivar #0.04 10e3/ulCritically high0.00-0.03The [facility] Comment on above:Performed By: #### CBC #### [facility] Laboratory [address] [place] [address] Dr. Phillip Menjivar %0.5 %Normal0.0-0.5The [facility] SouthComment on above: Performed By: #### CBC #### [facility] Laboratory [address] [place] [address] Dr. Phillip Schmidt #1.9 103/ulNormal1.2-3.8The [facility] SouthComment on above:Performed By: #### CBC #### [facility] Laboratory [address] [place] [address] Dr. Phillip Rodashocytes/100 WBC (Bld)26.2 %Qyrssc90.5-60.0The [facility] SouthComment on above:Performed By: #### CBC #### [facility] Laboratory [address] [place] [address] Dr. Phillip Izaguirre DIFF REQNONormalThe [facility] SouthComment on above: Performed By: #### CBC #### [facility] Laboratory [address] [place] [address] Dr. Phillip Goode (RBC) [Entitic mass]28.8 xxCwoubh56.7-34.0The [facility] SouthComment on above:Performed By: #### CBC #### [facility] Laboratory [address] [place] [address] Dr. Phillip Goode (RBC) [Mass/Vol]32.8 g/dNLioxyf61.9-35.2The [facility] SouthComment on above:Performed By: #### CBC #### [facility] Laboratory [address] [place] [address] Dr. Phillip Goode (RBC) [Entitic vol]87.8 aBWiacuk77.0-99.0The [facility] SouthComment on above:Performed By: #### CBC #### [facility] Laboratory [address] [place] [address] Dr. Phillip Dominguez #0.5 103/ulNormal0.3-0.8The [facility] SouthComment on above:Performed By: #### CBC #### [facility] Laboratory [address] [place] [address] Dr. Phillip Kasperocytes/100 WBC (Bld)6.9 %Normal1.7-12.0The [facility] Comment on above:Performed By: #### CBC #### [facility] Laboratory [address] [place] [address] Dr. Phillip Alonso #4.7 103/ulNormal1.4-6.5The [facility] SouthComment on above:Performed By: #### CBC #### [facility] Laboratory [address] [place] [address] Dr. Phillip Dukeutrophils/100 WBC (Bld)64.1 %Otibev47.0-75.0The [facility] SouthComment on above:Performed By: #### CBC #### [facility] Laboratory [address] [place] [address] Dr. Phillip Sparks mean volume (Bld) [Entitic vol]9.6 fLNormal9.5-13.5The [facility] SouthComment on above:Performed By: #### CBC #### [facility] Laboratory [address] [place] [address] Dr. Phillip AnnT298 103/jlRtezmc982-551Rrh [facility] SouthComment on above: Performed By: #### CBC #### [facility] Laboratory [address] [place] [address] Dr. Phillip VivasC4.51 106/ulNormal4.20-5.40The [facility] SouthComment on above:Performed By: #### CBC #### [facility] Laboratory [address] [place] [address] Dr. Phillip MazariegosWBC7.3 103/ulNormal4.0-11.0The [facility] SouthComment on above: Performed By: #### CBC #### [facility] Laboratory [address] [place] [address] Dr. Phillip MazariegosPROF CHEM 8 (BAS METB)on 71-23-2770Jkbtm gap [Moles/Vol]11.7 mmol/LNormalThe [facility] SouthComment on above:Performed By: #### TSH, BMP #### [facility] Laboratory [address] [place] [address] Dr. Phillip MazariegosCalcium [Mass/Vol]8.8 mg/dLNormal8.5-10.1The [facility] Comment on above:Performed By: #### TSH, BMP #### [facility] Laboratory [address] [place] [address] Dr. Phillip MazariegosChloride [Moles/Vol]103 mmol/FSsyebo53-164Nfb [facility] Comment on above:Performed By: #### TSH, BMP #### [facility] Laboratory [address] [place] [address] Dr. Phillip MazariegosCO2 [Moles/Vol]28.0 mmol/SBkrodc62.0-32.0The [facility] Comment on above:Performed By: #### TSH, BMP #### [facility] Laboratory [address] [place] [address] Dr. Phillip MazariegosCreatinine [Mass/Vol]1.02 mg/dLNormal0.55-1.02The [facility] SouthComment on above:Performed By: #### TSH, BMP #### [facility] Laboratory [address] [place] [address] Dr. Phillip MarreroGFR-AF AUSTRIAN>60Normal>=60The [facility] SouthComment on above:Performed By: #### TSH, BMP #### [facility] Laboratory [address] [place] [address] Dr. Phillip MarreroGFR-NON AF PKEGXCGI45 mL/min/1.03s8Qxzgdwoimh low>=60The [facility] SouthComment on above:Performed By: #### TSH, BMP #### [facility] Laboratory [address] [address] [address] Phillip MazariegosGlucose [Mass/Vol]119 mg/dLCritically ycsg64-448Smu [facility] SouthComment on above:Performed By: #### TSH, BMP #### [facility] Laboratory [address] [place] [address] Dr. Phillip MazariegosPotassium [Moles/Vol]3.7 mmol/LNormal3.5-5.1The [facility] Comment on above:Performed By: #### TSH, BMP #### [facility] Laboratory [address] [place] [address] Dr. Phillip MazariegosSodium [Moles/Vol]139 mmol/VVrmcyj681-288Oxf [facility] Comment on above:Performed By: #### TSH, BMP #### [facility] Laboratory [address] [place] [address] Dr. Phillip MazariegosUrea nitrogen [Mass/Vol]19.0 mg/dLCritically high7.0-18.0The [facility] SouthComment on above:Performed By: #### TSH, BMP #### [facility] Laboratory [address] [place] [address] Dr. Phillip Valdivia nitrogen/Creatinine [Mass ratio]18.6 mg/mgNoSt. Mary's Medical Center, Ironton CampusComment on above:Performed By: #### TSH, BMP #### [facility] Laboratory [address] [place] [address] Dr. Phillip Harrison 74-81-5620VSI4.616 uIU/mLNormal0.358-3.740The [facility] SouthComment on above:Performed By: #### TSH, BMP #### [facility] Laboratory [address] [place] [address] Dr. Phillip Blanca [facility] BELOWTrinity Health System West CampusComment on above: Result Comment: <0.34 UIU/ml HYPERTHYROID 0.34-5.60 UIU/ml EUTHYROID >5.60 UIU/ml HYPOTHYROIDPerformed By: #### TSH, BMP #### [facility] Laboratory [address] [place] [address] Dr. Phillip Taylor (CLEAN/CATCH) HYDROGEN POWER PLANT ENGINEER/MICRO IF IND.on 78-50-1709Gakadditv Ql (U) NegativeNormalNEGATIVEPremier Health [facility] HospitalComment on above:Performed By: #### UACSIND ####[facility] Jp[address]gs[address]zv[address] [place], [place] [address]Dr. Yilan ChangClarity (U)SL CLOUDYAbnormalCLEWyandot Memorial Hospital Comment on above:Performed By: #### UACSIND ####[facility] Ffhlgreggi[address] [place], [place] [address]Dr. Yilan ChangColor (U)YELLOWNormalYELLOW [facility] HospitalComment on above:Performed By: #### UACSIND ####[facility] Ixxwxe[address]xw[address] [place], [place] [address]Dr. Yilan Mazariegos Glucose Ql (U)NegativeNormalNEGATIVEPremier Health [facility] HospitalComment on above: Performed By: #### UACSIND ####[facility] Dcurkibngm[address] [place], [place] [address]Dr. Yilan ChangHemoglobin Ql (U)NegativeNormalNEGATIVE [facility] HospitalComment on above:Performed By: #### UACSIND ####[facility] Uelphrnwyg[address] [place], [place] [address]Dr. Yilan Mazariegos Ketones Ql (U)NegativeNormalNEGATIVEProtestant Deaconess HospitalComment on above: Performed By: #### UACSIND ####[facility] Gebxeeswnv[address] [place], [place] [address]Dr. Yilan ChangLEUKOCYTESNegativeNormalNEGATIVEPremier Health [facility] HospitalComment on above:Performed By: #### UACSIND ####[facility] [address] [place], [place] [address]Dr. Yilan Mazariegos Nitrite Ql (U)NegativeNormalNEGATIVEPremier Health Miami Valley Hospital North HospitalComment on above: Performed By: #### UACSIND ####[facility] Sokpxeewig[address] [place], [place] [address]Dr. Yilan ChangpH (U)6.0 [pH]Normal5-9[facility] HospitalComment on above:Performed By: #### UACSIND ####[facility] [address] [address]Dr. Phillip MazariegosSPEC GRAVITY >=1.241Nyvrwtqx2.005-<=1.025The [facility] SouthComment on above:Performed By: #### UACSIND ####[facility] [address] [address]Dr. Phillip Taylor PROTEINNegativeNormalNEGATIVE/ TRACEThe Holden HospitalComment on above:Performed By: #### UACSIND ####[facility] [address] [address]Dr. Phillip MazariegosUR MICRO IND INDICATEDTrinity Health System West CampusComment on above:Performed By: #### UACSIND ####[facility] Ttyq[address] [place], [place] [address]Dr. Phillip Polkbilinogen Qn (U)0.2 {Trish'U}/dLNormal0.2 - 1.0The [facility] SouthComment on above:Performed By: #### UACSIND ####[facility] Bakcghhmtk[address] [place], [place] [address]Dr. Phillip Finn MICROSCOPIC ONLYon [id number]xxpovHSJO SEENProtestant Deaconess Hospital Comment on above:Performed By: #### UMICRO #### [facility] Laboratory [address] [place] [address] Dr. Phillip Pemberton identified Cx Nom (U)[facility] HospitalComment on above:Performed By: #### UMICRO #### [facility] Laboratory [address] [address] [address] Phillip Jean-Baptiste SEENNormalNONE SEENProtestant Deaconess HospitalComment on above:Performed By: #### UMICRO #### [facility] Laboratory [address] [address] [address] Phillip Trivediystals LM Nom (Urine sed)NONE SEENNormalNONE SEENProtestant Deaconess HospitalComment on above:Performed By: #### UMICRO #### [facility] Laboratory [address] [address] [address] Fisher ChangEpithelial cells LM Ql (Urine sed)FEWAbnormalNONE SEEN /RAREThe [facility] SouthComment on above:Performed By: #### UMICRO #### [facility] Laboratory [address] [address] [address] Phillip MazariegosMUCOUSTRACEAbnormalNONE SEENThe [facility] SouthComment on above:Performed By: #### UMICRO #### [facility] Laboratory [address] [address] [address] Phillip MazariegosRBCNONE SEENAbrmal0-2The [facility] SouthComhenry [facility] on above: Performed By: #### UMICRO #### [facility] Laboratory [address] [address] [address] Phillip MazariegosWBC0-2AbnormalNONE SEENThe [facility] SouthComment on above: Performed By: #### UMICRO #### [facility] Laboratory [address] [place] [address] Dr. Phillip MazariegosXR CHEST 2 Von [id number] CHEST 2 VEXAM: XR CHEST 2 V EXAM: XR CHEST 2 V INDICATION: 65 years old Female Dyspnea COMPARISON: 03/14/20 FINDINGS: The cardiac silhouette is normal. There is no pulmonary edema. The lungs are clear. There is no pneumonia. There is no pneumothorax. There is no abnormal foreign body.pacer noted IMPRESSION: There is no acute abnormality. Electronically authenticated by: ELAINA ARRIAZA Date: 2021-09-07 15:03[facility] West CampusRadiologyon [id number] Chest 2 ViewsNormalMP-[facility] 320 DO Work Phone: Laboratory - Chemistry and Chemistry - challengeon 07-22-6727Wpsdd gap [Moles/Vol]11 mmol/L10 - 20MP-[facility]-[place] 250 DO Work Phone: Calcium [Mass/Vol]9.3 mg/dL8.6 - 10.3MP-[facility] 250 DO Work Phone: Chloride [Moles/Vol]107 mmol/L98 - 107MP-[facility] 250 DO Work Phone: [phone] [Moles/Vol]27 mmol/L21 - 32MP-[facility] 250 DO Work Phone: [phone] [Mass/Vol]0.79 mg/dLSee BelowMP-[place] [address] DO Work Phone: [phone] on above:Reference Range: 0.50 - 1.05Glucose [Mass/Vol]98 mg/dL74 - 99MP-[place] [address] DO Work Phone: [phone] [Moles/Vol]3.7 mmol/L3.5 - 5.3MP-[place] [address] DO Work Phone: [phone] [Moles/Vol]141 mmol/L136 - 145MP-[place] [address] DO Work Phone: [phone] nitrogen [Mass/Vol]20 mg/dL6 - 23MP-[place] [address] DO Work Phone: Laboratory - Coagulationon 72-70-8278eUAQ Coag (PPP) [Time]32 s26 - 39MP-[place] [address] DO Work Phone: Comment on above:THE APTT IS NO LONGER USED FOR MONITORING UNFRACTIONATED HEPARIN THERAPY. FOR MONITORING HEPARIN THERAPY, USE THE HEPARIN ASSAY.INR Coag (PPP) [Relative time]1.0 {INR}0.9 - 1.1MP-[place] [address] DO Work Phone: PT Coag (PPP) [Time]11.9 s9.8 - 13.4MP-[place] [address] DO Work Phone: Laboratory - Hematology and Cell countson 08-02-2021 Erythrocyte distribution width (RBC) [Ratio]13.3 %See Below-[place] [address] DO Work Phone: Comment on above:Reference Range: 11.5 - 14.5 Hematocrit (Bld) [Volume fraction]37.9 %See BelowSnoqualmie [facility] Hospital [facility]-[place] 250 DO Work Phone: Comment on above:Reference Range: 36.0 - 46.0 Hemoglobin (Bld) [Mass/Vol]12.7 g/dLSee [facility]-[place] 250 DO Work Phone: Comment on above:Reference Range: 12.0 - 16.0MCHC (RBC) [Mass/Vol]33.5 g/dLSee BelowSnoqualmie Valley Hospital [facility]-[place] 250 DO Work Phone: Comment on above:Reference Range: 32.0 - 36.0MCV (RBC) [Entitic vol]88 fL80 - 100[facility] 250 DO Work Phone: Platelets (Bld) [#/Vol]168 10*3/uL150 - 450[facility] 250 DO Work Phone: RBC (Bld) [#/Vol]4.33 {x10E12/L}See [facility] 250 DO Work Phone: Comment on above:Reference Range: 4.00 - 5.20WBC (Bld) [#/Vol]7.3 10*3/uL4.4 - 11.3MFor[facility] 250 DO Work Phone: No Panel Informationon 08-02-2021 [email or web address]?RetrieveTestByDateTime?Patien bHK=[email or web address]&Da te=02-08-2021&Time=07%3a58%3a03%3a00&TestType=ECG&Site=11&OutputType=PDF&Ext=PDF [facility] 250 DO Work Phone: [phone]-vkmbvu ventricular-paced rhythmSnoqualmie Valley Hospital [facility] 250 DO Work Phone: WvdhkogbOQ-Puxkx [facility]-[place] 250 DO Work Phone: [phone] 1MP-[facility] 250 DO Work Phone: [phone] 1M-[facility] 250 DO Work Phone: [phone] 1M-[facility] 250 DO Work Phone: [phone] [facility] 250 DO Work Phone: [phone] [facility] 250 DO Work Phone: [phone] 1M-[facility] 250 DO Work Phone: [phone] 1M-[facility] 250 DO Work Phone: [phone] 1M-[facility] 250 DO Work Phone: [phone] [facility] 250 DO Work Phone: [phone] [facility] 250 DO Work Phone: [phone] [facility] 250 DO Work Phone: [phone] [facility] 250 DO Work Phone: [phone] [facility] 250 DO Work Phone: [phone] [facility] 250 DO Work Phone: [phone] {mL/min/1.73m2}>90MP-[facility] 250 DO Work Phone: Comment on above:CALCULATIONS OF ESTIMATED GFR ARE PERFORMED USING THE 2020 CKD-EPI STUDY REFIT EQUATION WITHOUT THERACE VARIABLE FOR THE IDMS-TRACEABLE CREATININE METHODS.https://jasn.asnjournals.org/content//ASN.[email or web address] Radiologyon 35-39-2285NP Chest 2 ViewsNormalMP-[facility] 250 DO Work Phone: [phone]-16 SOFIAOrdered By: Daphne Mayes on 07-31-2021 SARS-CoV+SARS-CoV-2 (COVID-19) Ag IA.rapid Ql (Resp)NegativeNegativeCleveland Clinic Fairview HospitalComment on above:This is a duplicate Gretchen SARS Antigen (RUSTAM) result to be used for statistical tracking purpose only.No Panel InformationOrdered By: Daphne Mayes on 00-65-9200DYII Antigen (LFIA)[facility] HospitalBasophils Auto (Bld) [#/Vol]Ordered By: Daphne Mayes on 61-65-9553Muqajwbbb (Bld) [#/Vol]0.0 10*3/uL0.0-0.2FOhioHealth Southeastern Medical CenterBasophils/100 WBC Auto (Bld)Ordered By: Daphne Mayes on 07-18-2021 Basophils/100 WBC (Bld)0.5 %[facility] HospitalBlood hemoglobin measurement (mass/volume)Ordered By: Daphne Mayes on 64-52-4424Csmvixwrdo (Bld) [Mass/Vol]13.2 g/dL11.8-15.4FOhioHealth Southeastern Medical CenterBlst. francis medical center leukocytes automated count (number/volume)Ordered By: Daphne Mayes on 74-05-2693UJC (Bld) [#/Vol]6.3 10*3/uL4.5-11.0[facility]view HospitalCOVID-19 Positive/NegativeOrdered By: Daphne Mayes on 83-03-0874DTBP-CoV-2 (COVID-19) N gene MELL+probe Ql (Resp)PositiveNegativeCleveland Clinic Fairview HospitalComment on above:Positive results will only be called to Providers for the following groups of patients: Pre-Surgical Testing, Emergency Room, and Inpatients.Testing for SARS-CoV-2 by RT-PCRThis test was developed and its performance characteristics determined by [employer] ([employer]) and validated at the [facility]. This test has not been FDA [...] rate.predicted panel (S/P/Bld)Ordered By: Daphne Mayes on 38-41-4163Ksowddnjeo [Mass/Vol]0.76 mg/dL0.44-1.03[facility] HospitalEosinophils Auto (Bld) [#/Vol]Ordered By: Daphne Mayes on 22-59-6875Dibekhditon (Bld) [#/Vol]0.2 10*3/uL0.0-0.45[facility] HospitalEosinophils/100 WBC Auto (Bld) Ordered By: Daphne Mayes on 02-45-0317Dovytybofud/100 WBC (Bld)2.7 %[facility] HospitalErythrocyte distribution width Auto (RBC) [Ratio]Ordered By: Daphne Mayes on 32-66-3871Rvrnpvfaofs distribution width (RBC) [Ratio]14.1 % 11.9-15.3FOhioHealth Southeastern Medical CenterEstimated glomerular filtration rate (GFR) non- AmericanOrdered By: Daphne Mayes on 58-11-5381QOP/1.73 sq M.predicted among non-blacks MDRD (S/P/Bld) [Vol rate/Area]> 60 mL/MinCleveland Clinic Fairview HospitalHematocrit Auto (Bld) [Volume fraction]Ordered By: Daphne Mayes on 02-47-2298Azentjskti (Bld) [Volume fraction]39.3 %34.0-46.4FOhioHealth Southeastern Medical CenterLaboratory - CoagulationOrdered By: Daphne Mayes on 08-39-9629QU Coag (PPP) [Time]12.7 s9.0-12.9[facility] Laboratory - Hematology and Cell countsOrdered By: Daphne Mayes on 07-18-2021 Nucleated RBC/100 WBC (Bld) [Ratio]0.2 %0-0.5FOhioHealth Southeastern Medical Center Lymphocytes Auto (Bld) [#/Vol]Ordered By: Daphne Mayes on 63-31-0796Uefffvkblab (Bld) [#/Vol]1.8 10*3/uL1.00-4.8[facility] HospitalLymphocytes/100 WBC Auto (Bld)Ordered By: Daphne Mayes on 18-28-4731Adgdamtvnzm/100 WBC (Bld)28.3 %[facility] HospitalH Auto (RBC) [Entitic mass]Ordered By: Daphne Mayes on 21-05-9307BUX (RBC) [Entitic mass]29.3 pg24.7-34.3FOhioHealth Southeastern Medical CenterMCHC Auto (RBC) [Mass/Vol]Ordered By: Daphne Mayes on 74-69-8911OYPG (RBC) [Mass/Vol]33.5 g/dL32.0-35.0[facility] HospitalMCV Auto (RBC) [Entitic vol]Ordered By: Daphne Mayes on 99-04-9214JCJ (RBC) [Entitic vol] 87.5 eM87-266WblhognudCleveland Clinic Fairview HospitalMonocytes Auto (Bld) [#/Vol] Ordered By: Daphne Mayes on 00-94-7678Ekakcjgsv (Bld) [#/Vol]0.5 10*3/uL0.0-0.8 [facility] HospitalMonocytes/100 WBC Auto (Bld)Ordered By: Daphne Mayes on 62-75-3700Mvagpjzee/100 WBC (Bld)7.5 %[facility] Neutrophils Auto (Bld) [#/Vol]Ordered By: Daphne Mayes on 70-22-7931Tnjxyuklqfm (Bld) [#/Vol]3.9 10*3/uL1.8-7.7FOhioHealth Southeastern Medical CenterNeutrophils/100 WBC Auto (Bld)Ordered By: Daphne Mayes on 64-20-7980Ilkwbaikzqn/100 WBC (Bld)61.0 % [facility] HospitalNo Panel InformationOrdered By: Daphne Mayes on 18-27-9363Eqzpgiony GFR ()> 60 mL/MinCleveland Clinic Fairview HospitalComment on above:GFR estimated reference range: According to KDOQI guidelines, <60 ml/min/1.73m2 is sufficient todiagnose a patient with chronic kidney disease.Pharmacy Creatinine Clearance (ChemN/AFOhioHealth Southeastern Medical CenterPlatelet mean volume Auto (Bld) [Entitic vol]Ordered By: Daphne Mayes on 73-73-6120Kzbrhjkm mean volume (Bld) [Entitic vol]8.5 fL6.3-10.7FOhioHealth Southeastern Medical CenterPlatelet poor plasma international normalized ratio (INR) by coagulation assay (relatOrdered By: Daphne Mayes on 37-47-1018CRJ Coag (PPP) [Relative time]1.1 {INR}[facility] HospitalComment on above:INR Therapeutic Range A) Pre- [...] Auto (Bld) [#/Vol]Ordered By: Daphne Mayes on 52-38-2261Xgxkhspdo (Bld) [#/Vol]282 10*3/yW515-243FakljnthbCleveland Clinic Fairview HospitalRBC Auto (Bld) [#/Vol]Ordered By: Daphne Mayes on 84-22-5447VOZ (Bld) [#/Vol]4.49 10*6/uL3.60-5.00[facility] Memorial Hospitalerum or plasma calcium measurement (mass/volume)Ordered By: Daphne Mayes on 52-53-6567Osdinxd [Mass/Vol]9.3 mg/dL8.2-10.2FMarietta Osteopathic Clinicerum or plasma chloride measurement (moles/volume)Ordered By: Daphne Mayes on 05-95-4155Ljiecelu [Moles/Vol]103 mmol/E57-833SzxleqaauTriHealth McCullough-Hyde Memorial Hospitalerum or plasma glucose measurement (mass/volume)Ordered By: Daphne Mayes on 58-05-1281Rfbpzco [Mass/Vol]118 mg/dC00-333MyfpjvuwmCleveland Clinic Fairview Hospital Comment on above:ADA recommended reference rangeRandom Glucose Reference Range is dependent on time and content of last meal. Glucose of more than 200 mg/dL in a nonstressed, ambulatory subject supports the diagnosisof Diabetes Mellitus. Serum or plasma potassium measurement (moles/volume)Ordered By: Daphne Mayes on 55-79-2928Fltahogwk [Moles/Vol]3.9 mmol/L3.5-5.1FMarietta Osteopathic Clinicerum or plasma sodium measurement (moles/volume)Ordered By: Daphne Mayes on 15-76-4591Knpirx [Moles/Vol]139 mmol/Z929-818UgsfwjoddCleveland Clinic Fairview Hospital Serum or plasma total carbon dioxide measurement (moles/volume)Ordered By: Daphne Mayes on 46-75-2512KU4 [Moles/Vol]26.2 mmol/L22.0-30.0[facility] Memorial Hospitalerum or plasma urea nitrogen measurement (mass/volume)Ordered By: Daphne Mayes on 71-18-6427Whkt nitrogen [Mass/Vol]16 mg/dL9-23[facility] HospitalCBCon 01-76-9321Aksmfjrxhmx distribution width (RBC) [Ratio]13.4 %Normal 11.5 - 14.5[facility] Health CenterComment on above:Performed By: #### CBC #### [address] [id number] (Bld) [Volume fraction]41.9 %Hgwqjp76.0 - 46.0[facility] Health CenterComment on above:Performed By: #### CBC #### [address] [id number] (Bld) [Mass/Vol]13.3 g/dRYxzlle01.0 - 16.0[facility] Health CenterComment on above:Performed By: #### CBC #### [address] [id number] (RBC) [Mass/Vol]31.7 g/dLLow32.0 - 36.0[facility] Health CenterComment on above:Performed By: #### CBC #### [address] [id number] (RBC) [Entitic vol]91 uHJphaia71 - 100[facility] HealthcareComment on above:Performed By: #### CBC #### [address] [id number] (Bld) [#/Vol]205 10*3/mDLgzhts522 - 450[facility] HealthcareComment on above:Performed By: #### CBC #### [address] [id number] (Bld) [#/Vol]4.62 x10E12/LNormal4.00 - 5.20[facility] Health CenterComment on above:Performed By: #### CBC #### [address] [id number] (Bld) [#/Vol]7.4 10*3/uLNormal4.4 - 11.3[facility] Health CenterComment on above:Performed By: #### CBC #### [address] [id number] 46-60-6175Sidnrvupzh [Mass/Vol]0.77 mg/dLNormal 0.50 - 1.05[facility] HealthcareComment on above:Performed By: #### CREAT #### [address] [id number] [Mass/Vol]mg/dLNormal>60[facility] HealthcareComment on above:Result Comment: CALCULATIONS OF ESTIMATED GFR ARE PERFORMED USING THE MDRD STUDY EQUATION FOR THE IDMS-TRACEABLE CREATININE METHODS. CLIN CHEM 2007;53:766-72Performed By: #### CREAT #### [address] [id number] PANELon 17-37-7484Pziqt gap [Moles/Vol]12 mmol/L Dofkni94 - 20[facility] Health CenterComment on above:Performed By: #### ELECT #### [address] [id number] [Moles/Vol]107 mmol/CJedyat17 - 107[facility] CenterComment on above:Performed By: #### ELECT #### [address] [id number] (Bld) [Moles/Vol]28 mmol/ULkhqek94 - 32[facility] Health CenterComment on above:Performed By: #### ELECT #### [address] [id number] [Moles/Vol]3.7 mmol/LNormal3.5 - 5.3[facility] HealthcareComment on above:Performed By: #### ELECT #### [address] [id number] [Moles/Vol]143 mmol/MOzcova601 - 145[facility] Health CenterComment on above:Performed By: #### ELECT #### [address] [id number] NITROGENon 83-76-2195Xopg nitrogen [Mass/Vol]17 mg/dL Normal6 - 23[facility] Health CenterComment on above:Performed By: #### UREA #### [address] [id number] 88-96-4123NUJLQYBPevpg Visit (CARDMN) NYA BELL ([id number]) 1955 F Date Time Provider Department 11/13/18 7:00 AM 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 The patient was unavailable and I left a voicemail to return my call at her convenience. Aba Rodriguez [facility] November 13, 2018 2:31 PM Referring Provider: JONA WAN [[id number]] Allergies As of Date: 11/13/2018 Noted Allergy [...] FOR* Encounter Status:Closed by ABA WILLIAM on 11/13/18[facility] [id number] ID: [id number] Author: Aba Rodriguez [facility] Service: ? Author Type: ? Type: Progress [...] my call at her convenience. Aba Rodriguez [facility] November 13, 2018 2:31 [facility] CompanyvelandCoding Summary.on 51-97-1966Ythgox Summary.CODING DATE: 07/02/[address] [facility] STATUS: Home (Routine DC) PAYOR: [...] By: Rosa Stubbs Date Saved: 07/02/2017 08:19 [facility] Vital Signs Date TimeVital SignValuePerforming ZwcsfrnphNtqypffy92-04-1549 10:170400Body uahumj872.22 cmAnupam Pereira MD Work Phone: [facility]10-03-2025 10:17-0400 Body mass index (BMI) [Ratio]37.6 kg/r3CswdseAnupam Pereira MD Work Phone: [facility]10-03-2025 10:17-0400 Body izkzfi34.91 kgAnupam Pereira MD Work Phone: [facility]10-03-2025 10:17-0400 Diastolic blood rhrjctci66 mm[Hg]Anupam Pereira MD Work Phone: [phone]10-03-2025 10:17-0400 Heart rate80 /minAnupam Pereira MD Work Phone: [facility]10-03-2025 10:17-0400 Systolic blood kkhqamfd457 mm[Hg]Anupam Pereira MD Work Phone: [phone]08-29-2025 13:06-0400 Body hxqwno345.22 cmAnupam Pereira MD Work Phone: [phone]08-29-2025 13:06-0400 Body mass index (BMI) [Ratio]38 kg/t7VfqpkbAnupam Pereira MD Work Phone: [phone] [address]08-29-2025 13:06-0400 Body wpajiujtrlm53 [degF]Anupam Pereira MD Work Phone: [phone])[address]66 [address]08-29-2025 13:06-0400 Body gtigbw46.82 kgAnupam Pereira MD Work Phone: [phone]08-29-2025 13:06-0400 Diastolic blood usympfhn89 mm[Hg]Anupam Pereira MD Work Phone: [phone]08-29-2025 13:06-0400 Heart rate77 /Briana Pereira MD Work Phone: [phone] [address]08-29-2025 13:06-0400 Respiratory rate14 /Briana Pereira MD Work Phone: [phone] [address]08-29-2025 13:06-0400 SaO2% (BldA) [Mass fraction]95 %Anupam Pereira MD Work Phone: [phone] [place], [place] [address]108-29-2025 13:06-0400 Systolic blood vugkmcel968 mm[Hg]Anupam Pereira MD Work Phone: [phone] [address]06-04-2025 10:07-0400 Body yowrtv091.4 cmLupe Rosado MD Work Phone: [facility]06-04-2025 10:07-0400 Body mass index (BMI) [Ratio]38.08 kg/y1QrakwqLupe Rosado MD Work Phone: [facility]06-04-2025 10:07-0400 Body vbewdt93.45 kgLupe Rosado MD Work Phone: [facility]06-04-2025 10:07-0400 Diastolic blood vqellnrx07 mm[Hg]Lupe Rosado MD Work Phone: [facility]06-04-2025 10:07-0400 Heart rate60 /Gigi Rosado MD Work Phone: [facility]06-04-2025 10:07-0400 Systolic blood rhzieyfs160 mm[Hg]Lupe Rosado MD Work Phone: [address] [place], [place] 1401303-24-2025 08:43-0400 Body iyecdm893.22 cmAnupam Pereira MD Work Phone: [phone] [address]03-24-2025 08:43-0400 Body mass index (BMI) [Ratio]39.4 kg/y0OvucrwAnupam Pereira MD Work Phone: [phone] [address]03-24-2025 08:43-0400 Body boxlsf28.7 kgAnupam Pereira MD Work Phone: [phone] [place], [place] 0455103-24-2025 08:43-0400 Diastolic blood vnynxvgv55 mm[Hg]Anupam Pereira MD Work Phone: [phone] [address]03-24-2025 08:43-0400 Heart rate70 /Briana Pereira MD Work Phone: [phone] [address]03-24-2025 08:43-0400 Respiratory rate16 /Briana Pereira MD Work Phone: [phone]03-24-2025 08:43-0400 SaO2% (BldA) [Mass fraction]99 %Anupam Pereira MD Work Phone: [phone]03-24-2025 08:43-0400 Systolic blood tahcgqwj283 mm[Hg]Anupam Pereira MD Work Phone: [phone]02-10-2025 13:25-0500 Body nnpcoe474.22 cmAnupam Pereira MD Work Phone: [phone] [place], [place] [address]102-10-2025 13:25-0500 Body mass index (BMI) [Ratio]39.9 kg/o3YxntpuAnupam Pereira MD Work Phone: [phone]02-10-2025 13:25-0500 Body fshaes42.9 kgAnupam Pereira MD Work Phone: [phone] [place], [place] [address]102-10-2025 13:25-0500 Diastolic blood kueiajpx93 mm[Hg]Anupam Pereira MD Work Phone: [phone] [place], [place] [address]102-10-2025 13:25-0500 Heart rate76 /minAnupam Pereira MD Work Phone: [phone]02-10-2025 13:25-0500 Systolic blood wdspsoel874 mm[Hg]Anupam Pereira MD Work Phone: [phone] [place], [place] 7983102-06-2025 10:24-0500 Body dyxflm521.4 cmLupe Rosado MD Work Phone: [facility]02-06-2025 10:24-0500 Body mass index (BMI) [Ratio]38.55 kg/j8MfapctLupe Rosado MD Work Phone: [facility]02-06-2025 10:24-0500 Body .54 kgLupe Rosado MD Work Phone: [facility]02-06-2025 10:24-0500 Diastolic blood lsetobfy67 mm[Hg]Lupe Rosado MD Work Phone: [phone] [place], [place] 3547402-06-2025 10:24-0500 Heart rate82 /minLupe Rosado MD Work Phone: [facility]02-06-2025 10:24-0500 Systolic blood mysuszzr189 mm[Hg]Lupe Rosado MD Work Phone: [facility]01-27-2025 11:36-0500 Body obwnhd533.22 cmCleveland Clinic [facility] Hospital01-27-2025 11:36-0500Body mass index (BMI) [Ratio]39.7 kg/w2VttfvwojyC[facility] Clinic [facility]view Hospital01-27-2025 11:36-0500Body tomojy01.59 kgCleveland Clinic Fairview [facility]25 11:36-0500Diastolic blood ydvdyhck19 mm[Hg][facility] 05-31-2024 11:36-0500Heart rate65 /[facility] 05-31-2024 11:36-0500Respiratory rate16 /[facility] 05-31-2024 11:36-8150OvK5% (BldA) [Mass fraction]98 %[facility]01-27-2025 11:36-0500Systolic blood nzhxksca325 mm[Hg][facility]10-29-2024 10:53-0400Body .13 [facility]2024 10:53-0400Body mass index (BMI) [Ratio]38.7 kg/m2 [facility]10-29-2024 10:53-0400Body cqvfey97.45 kg [facility]10-29-2024 10:53-0400Diastolic blood wkwsyuoz26 mm[Hg][facility]10-29-2024 10:53-0400Heart rate78 /min [facility]10-29-2024 10:53-0400Systolic blood jcdpxbmi067 mm[Hg][facility]08-19-2024 13:59-0400Body vayvfp497.13 [facility]08-19-2024 13:59-0400Body mass index (BMI) [Ratio]39.5 kg/v0BmevqzsoaC[facility] Clinic [facility]08-19-2024 13:59-0400Body nawlwtyxexk07.6 [degF][facility]08-19-2024 13:59-0400Body wzlnit22.37 [facility]08-19-2024 13:59-0400Heart rate 95 /[facility]08-19-2024 13:59-0400Respiratory rate18 /[facility]08-19-2024 13:59-8292LqI9% (BldA) [Mass fraction]97 %[facility]07-16-2024 10:43-0400Body height 152.4 cmLupe Rosado MD Work Phone: 1(600)[address] [place], [place] 3547407-16-2024 10:43-0400 Body mass index (BMI) [Ratio]37.5 kg/h4XhdtibLupe Rosado MD Work Phone: 1(053)[address]07-16-2024 10:43-0400 Body bwrpoc59.09 kgLupe Rosado MD Work Phone: 1(973)[address]07-16-2024 10:43-0400 Diastolic blood mdlpfcfe72 mm[Hg]Lupe Rosado MD Work Phone: 1(394)[address]07-16-2024 10:43-0400 Heart rate76 /Gigi Rosado MD Work Phone: 1(142)[address] [place], [place] 3547407-16-2024 10:43-0400 Systolic blood ovccgdyu096 mm[Hg]Lupe Rosado MD Work Phone: 1(488)[address]04-26-2024 10:30-0400 Body wyrjkw661.4 cmDaphne Mayes MD Work Phone: 1(858)[address] [place], [place] 1568904-26-2024 10:30-0400 Body mass index (BMI) [Ratio]37.5 kg/m2Daphne Mayes MD Work Phone: 1(497)[address] [place], [place] 1568904-26-2024 10:30-0400 Body ghvnme78.09 kgDaphne Mayes MD Work Phone: 1(922)[address] [place], [place] 1568904-26-2024 10:30-0400 Diastolic blood mrtnjjko57 mm[Hg]Daphne Mayes MD Work Phone: 1(622)[address] [place], [place] 1568904-26-2024 10:30-0400 Heart rate64 /Jesus Mayes MD Work Phone: [facility]04-26-2024 10:30-0400 Systolic blood vxovvhep897 mm[Hg]Daphne Mayes MD Work Phone: [facility]01-24-2024 11:30-0500 Body mdnlux374.13 cmAnupam Pereira Other [employer] Other 01-24-2024 11:30-0500Body mass index (BMI) [Ratio] 37.33 kg/c4Upxvtk Pereira Other [facility] Other 01-24-2024 11:30-0500Body xxyflh32.28 kgAnupam Pereira Other [facility] Other 01-24-2024 11:30-0500Diastolic blood pehpkbix45 mm[Hg] Anupam Pereira Other [employer] Other 01-24-2024 11:30-0500Systolic blood gyfewkqs537 mm[Hg] Anupamlamine Pereira Other [employer] Other 01-08-2024 13:32-0500Body paciuu466.4 cmLupe Rosado MD Work Phone: [facility]01-08-2024 13:32-0500 Body mass index (BMI) [Ratio]37.3 kg/k8GcoykjLupe Rosado MD Work Phone: [facility]01-08-2024 13:32-0500 Body estkeg35.64 kgLupe Rosado MD Work Phone: [facility]01-08-2024 13:32-0500 Diastolic blood bqccobuy84 mm[Hg]Lupe Rosado MD Work Phone: 1(440)414-[address] [place], [place] 3547401-08-2024 13:32-0500 Heart rate62 /minLupe Rosado MD Work Phone: 3(579)993-[address] [place], [place] 3547401-08-2024 13:32-0500 Systolic blood naiikgxr997 mm[Hg]Lupe Rosado MD Work Phone: 5(553)872-[address] [place], [place] 3547410-24-2023 10:10-0400 Body .4 cmTraci Gibbs-Ellacott PLASTER LATHER-SEISMIC PROSPECTING OBSERVER Work Phone: 8(694)646-[address] [place], [place] 1568910-24-2023 10:10-0400 Body mass index (BMI) [Ratio]37.69 kg/s8Fqcqw Gibbs-Ellacott PLASTER LATHER-SEISMIC PROSPECTING OBSERVER Work Phone: 8(647)[address]10-24-2023 10:10-0400 Body dpqiou52.54 kgTraci Gibbs-Ellacott PLASTER LATHER-SEISMIC PROSPECTING OBSERVER Work Phone: 0(620)804-[address] [place], [place] 1568910-24-2023 10:10-0400 Diastolic blood odqmucfm37 mm[Hg]Lynn Gibbs-Ellacott PLASTER LATHER-SEISMIC PROSPECTING OBSERVER Work Phone: 4(107)620-[address] [place], [place] 1568910-24-2023 10:10-0400 Heart rate74 /minTraci Sai-Ellacott PLASTER LATHER-SEISMIC PROSPECTING OBSERVER Work Phone: 6(686)317-[address] [place], [place] 1568910-24-2023 10:10-0400 Systolic blood rzrnayib693 mm[Hg]Lynn Sai-Ellaconatalie PLASTER LATHER-SEISMIC PROSPECTING OBSERVER Work Phone: 4(038)233-[address] [place], [place] 1568909-07-2023 13:15-0400 Body triwgl952.13 cmAnupam Pereira Other [employer] Other 09-07-2023 13:15-0400Body mass index (BMI) [Ratio] 38.05 kg/l1JplizfAnupam Pereira Other [employer] Other 09-07-2023 13:15-0400Body vssmpi58.91 kgAnupam Randall Other [employer] Other 09-07-2023 13:15-0400Diastolic blood ldqgeeah09 mm[Hg] Anupam Pereira Other [employer] Other 09-07-2023 13:15-0400Systolic blood dwinqthj963 mm[Hg] Anupam Pereiar Other [employer] Other 08-29-2023 14:15-0400Body wnkyni289.13 cmRossymichelle Pereira Other [employer] Other 08-29-2023 14:15-0400Body mass index (BMI) [Ratio] 38.32 kg/c9JfgqpiAnupam Pereira Other [employer] Other 08-29-2023 14:15-0400Body jdgoahrurbw64.9 [degF]Anupam Pereira Other [employer] Other 08-29-2023 14:15-0400Body avjiye44.54 kgAnupam Randall Other [employer] Other 08-29-2023 14:15-0400Diastolic blood mm[Hg] Anupam Pereira Other [employer] Other 08-29-2023 14:15-0400Systolic blood ikhdmmqf659 mm[Hg] Anupam Pereira Other [employer] Other 08-22-2023 10:45-0400Body okjopt777.13 cmAnupam Pereira Other [employer] Other 08-22-2023 10:45-0400Body mass index (BMI) [Ratio] 38.52 kg/s1RwbdkrAnupam Pereira Other [facility] [employer] Other 08-22-2023 10:45-0400Body kgJulianamichael Pereira Other [employer] Other 08-22-2023 10:45-0400Diastolic blood pweswddq72 mm[Hg] Anupam Pereira Other [employer] Other 08-22-2023 10:45-0400Systolic blood fudamsoo708 mm[Hg] Anupam Pereira Other [employer] Other 06-07-2023 10:59-0400Body .4 cmAnupam Pereira Work Phone: mp469-3508KL-Ndjyc [place] [employer] 250 DO Work Phone: 1(330) 493-340806-07-2023 10:59-0400Body mass index (BMI) [Ratio] 39.26 kg/e1YioluoAnupam Pereira Work Phone: mp564-2134QD-Yabts [place] [employer] 250 DO Work Phone: 1(122) 671-360106-07-2023 10:59-0400Body surface area Derived from formula1.87 x7XehwwuAnupam Pereira Work Phone: mp716-3144LP-Ogltn [place] [employer] 250 DO Work Phone: 1(271) 464-124506-07-2023 10:59-0400Body .17 kgAnupam Pereira Work Phone: mp511-4592YY-Hzlgg [place] [employer] 250 DO Work Phone: 1(516) 483-301006-07-2023 10:59-0400Diastolic blood uituksrs46 mm[Hg] Anupam Pereira Work Phone: mp354-1163AB-Zlsfd [place] [employer] 250 DO Work Phone: 1(715) 498-443206-07-2023 10:59-0400Heart rate72 /minAnupam Pereira Work Phone: mp034-5408PN-Oqcjv [place] [employer] 250 DO Work Phone: 1(789) 648-414306-07-2023 10:59-0400Systolic blood fhfnwmri581 mm[Hg] Anupam Pereira Work Phone: mp685-0271TC-Plxbk [place] [employer] 250 DO Work Phone: 1(837) 695-353201-17-2023 15:30-0500Body ojozrj402.13 cmAnupam Pereira Other [employer] Other 01-17-2023 15:30-0500Body mass index (BMI) [Ratio] 40.11 kg/h3OqrpneAnupam Pereira Other [employer] Other 01-17-2023 15:30-0500Body injqhd20.63 kgAnupam Pereira Other [facility] Other 01-17-2023 15:30-0500Diastolic blood wcruxsbx10 mm[Hg] Anupam Pereira Other [employer] Other 01-17-2023 15:30-6916TqT2% (BldA) [Mass fraction]97 % Anupam Pereira Other [facility] Other 01-17-2023 15:30-0500Systolic blood uqgshevu649 mm[Hg] Anupam Pereira Other [employer] Other 12-14-2022 11:16-0500Body qorrds906.4 cmAnupam Pereiar Work Phone: mp022-4995FO-Leskt [place] [employer] 250 DO Work Phone: 1(568) 597-725112-14-2022 11:16-0500Body mass index (BMI) [Ratio] 39.32 kg/g8YohgooAnupam Pereira Work Phone: mp374-6375LS-Vjnqt [facility] 250 DO Work Phone: 1(997) 950-627112-14-2022 11:16-0500Body surface area Derived from formula1.87 d5VpjebbAnupam Pereira Work Phone: mp284-1508FR-Nfjeu [place] [facility] 250 DO Work Phone: 1(207) 450-852012-14-2022 11:16-0500Body .31 kgAnupam Pereira Work Phone: 1(956) [phone]-Xwcie [facility] 250 DO Work Phone: 1(561) 874-422612-14-2022 11:16-0500Diastolic blood zxowehno23 mm[Hg] Anupam Pereira Work Phone: mp441-9605RI-Pzxta [place] [facility] 250 DO Work Phone: 1(151) 729-930012-14-2022 11:16-0500Heart rate62 /minAnupam Pereira Work Phone: 1(902) 308-6539817-0356MR-Iutlz [facility] 250 DO Work Phone: 1(847) 172-133512-14-2022 11:16-0500Systolic blood ygouzpen365 mm[Hg] Anupam Pereira Work Phone: mp992-9006CB-Dpvqb [facility] 250 DO Work Phone: 1(583) 578-352206-07-2022 13:20-0400Body hqsuun378.4 cmAnupam Pereira Work Phone: mp131-1796VV-Fgqci [facility] 250 DO Work Phone: 1(240) 639-277806-07-2022 13:20-0400Body mass index (BMI) [Ratio] 40.23 kg/k8NpprciAnupam Pereira Work Phone: mp071-1066TG-Lhpgv [facility] 250 DO Work Phone: 1(455) 615-670606-07-2022 13:20-0400Body surface area Derived from formula1.89 i2GmfuxfAnupam Pereira Work Phone: mp615-3874KR-Ybukx [facility] 250 DO Work Phone: 1(281)480-16639-253238-84914684-87-6011 13:20-0400Body lbmpwo77.44 kgAnupam Pereira Work Phone: mp792-0334PW-Uayxw [place] [facility] 250 DO Work Phone: 1(537)874-95919-069232-28192543-61-9572 13:20-0400Diastolic blood eaehebfz96 mm[Hg] Anupam Pereira Work Phone: 1(817) [phone]-Dwyrl [facility] 250 DO Work Phone: 1(514)639-26290-999717-32976886-67-1218 13:20-0400Heart rate68 /minAnupam Pereira Work Phone: 1(662) 346-3410750-0489TK-Yyttc [facility] 250 DO Work Phone: 1(172) 654-425506-07-2022 13:20-0400Systolic blood ewgmapfl236 mm[Hg] Anupam Pereira Work Phone: 1(709) [phone]-RkiurNorthfield [facility] 250 DO Work Phone: 1(619)970-817-071592-75 13:20-518415 1Mgreer Pereira Work Phone: 1(160) 504-3761294-6895UJ-Nfbwo [facility] 250 DO Work Phone: Comment on above:PHQ-9 LU57-69-2104 15:58-0400Body bzihao908.4 cmAnupam Pereira Work Phone: 1(719) [phone]-VtsscNorthfield City [facility]-[place] 250 DO Work Phone: 1(690)518-97551-569414-98505948-59-7245 15:58-0400Body mass index (BMI) [Ratio] 41.21 kg/j0DoblzvAnupam Pereira Work Phone: 1(632) [phone]-Yesux [facility] 250 DO Work Phone: 1(787)[phone]-8021 15:58-0400Body surface area Derived from formula1.91 v7KehyzcAnupam Pereira Work Phone: mp946-8824VR-Mzduv [facility] 250 DO Work Phone: 1(873) 812-154504-07-2022 15:58-0400Body sjjefgwuxjm64 [degF]Anupam Pereira Work Phone: mp019-7894GA-Spfyg [facility] 250 DO Work Phone: 1(785) 858-137404-07-2022 15:58-0400Body osrwfl12.71 kgAnupam Pereira Work Phone: mp009-6477FG-Idfpi [facility] 250 DO Work Phone: 1(441) 343-573704-07-2022 15:58-0400Diastolic blood laforeag79 mm[Hg] Anupam Pereira Work Phone: mp856-6090VF-Hnxss [facility] 250 DO Work Phone: 1(233) 399-667604-07-2022 15:58-0400Heart rate82 /minAnupam Pereira Work Phone: mp632-6219JR-Euteo [facility] 250 DO Work Phone: 1(484) 316-930104-07-2022 15:58-0400Systolic blood fceamwmz389 mm[Hg] Anupam Pereira Work Phone: mp632-7435MX-Nfepa [facility] 250 DO Work Phone: Encounters Encounter DateEncounter TypeCare ProviderFacilityStart: 03-10-2025 End: 54-50-7949Zogzaji encounter procedureLupe Denney MD [facility]-Pacemaker CheckStart: 03-10-2025 End: 10-10-4038kvqfzkcnpoLaxzjn E Braun MD Work Phone: [phone]-Nhqnxxtda CheckStart: 68-83-4336Ozz-patient / Non-visitMPretty Harper-Heart Rhythm ClinicStart: 02-04-2025 End: 46-32-2541rqoallgpvxTyharz E Braun MD Work Phone: [facility] Work Phone: Start: 02-04-2025 End: 68-52-9834Syixbov encounter procedureAnupam Pereira MD-[facility] Work Phone: Start: 12-31-2024 End: 59-89-5476liwjrqeezhGwnojd E Braun MD Work Phone: [facility] Work Phone: Start: 12-31-2024 End: 00-84-1633Zxtkqoh encounter procedureAnupam Pereira MD-[facility] Work Phone: Start: 12-09-2024 End: 46-66-2225fujjjdleyoQtnrbn [facility]aFac[facility] Hospitaltart: 32-07-4081Wun-patient / Non-visitShea Gaspar [facility]-Heart Rhythm ClinicStart: 10-06-2024 End: 00-32-0521jfqlxoiyitPXFMSZ M [facility] AmbulatoryStart: 10-06-2024 End: 02-06-9243Bpptya outpatient visit 25 minutesLupe Rosado MD Work Phone: [facility]Comment on [facility]:Nonischemic cardiomyopathy (Multi) (Primary Dx); ICD (implantable cardioverter-defibrillator) in place; Obstructive sleep apnea syndrome in adult; Never smoked cigarettes; BMI 38.0-38.9,adult; Class 2 obesity; Other fatigueStart: 09-03-2024 End: 12-46-8948wybmxvbphePzoqar E Braun MD Work Phone: [facility] Work Phone: Start: 09-03-2024 End: 84-08-6907Jbdqfro encounter Enma Pereira MD Work Phone: [facility]-Pacemaker CheckStart: 69-37-1222Ypq-patient / Non-visitAnupam Pereira MD Work Phone: [facility]-Heart Rhythm ClinicStart: 08-03-2024 End: 92-78-3683nuhwzsuyqwGbqtwr E Braun MD Work Phone: [facility] Work Phone: Start: 08-03-2024 End: 10-78-9514Tykrsfc encounter Enma Pereira MD Work Phone: [facility]-MRI [facility] [place] Work Phone: Start: 07-26-2024 End: 98-83-4160mkzwfnxpdqEnxyhc E Braun MD Work Phone: [facility] Work Phone: Start: 07-26-2024 End: 34-58-0414Jldozhf encounter procedureAnupam Pereira MD Work Phone: [facility] Work Phone: Start: 07-12-2024 End: 54-37-7683Adedrxl encounter procedureAnupam Pereira MD Work Phone: [facility]-Lab [facility] [place] Work Phone: Start: 07-12-2024 End: 63-94-2519yvpbfhinqcKqviyo E Braun MD Work Phone: [facility] Work Phone: Start: 06-14-2024 End: 52-25-0884mpxwagluuuJwoyib E Braun MD Work Phone: [facility] Work Phone: Start: 06-14-2024 End: 61-88-2283Qpxelpt encounter procedureAnupam Pereira MD Work Phone: [facility] Work Phone: Start: 06-10-2024 End: 60-11-7280Eoyhcb outpatient visit 25 minutesLupe Rosado MD Work Phone: [facility] CenterComment on above:ICD (implantable cardioverter-defibrillator) in place (Primary Dx); Chronic systolic congestive heart failure; Fatigue, unspecified type; Obstructive sleep apnea syndrome in adult; Never smoked cigarettes; BMI 38.0-38.9,adult; Class 2 obesityStart: 06-10-2024 End: 06-37-9239tlyaoumfqzYMRQHA M [facility]RTex[facility] AmbulatoryStart: 39-79-8759Ies-patient / Non-visitMarcia Pereira MD Work Phone: [facility] Work Phone: Start: 06-03-2024 End: 96-12-2044Erepmzu encounter procedureAnupam Pereira MD Work Phone: [facility]-Pacemaker CheckStart: 06-03-2024 End: 83-85-7404npmguzdglrRnvxhq E Braun MD Work Phone: [facility] Work Phone: Start: 92-32-9926Sjx-patient / Non-visitAnupam Pereira MD Work Phone: [facility]-Heart Rhythm ClinicStart: 05-31-2024 End: 15-12-7711talidhulaaUrtojnkfyMary [facility] Work Phone: Start: 05-31-2024 End: 66-23-8371Cauqmbs encounter procedureUn[facility] Work Phone: Start: 05-20-2024 End: 44-56-0247xltcrhaspjXSOQME M [facility] Centertart: 90-52-8992Lgp-patient / Non-visitAnupam Pereira MD Work Phone: [facility] Work Phone: Start: 09-68-3911Frp-patient / Non-visitFirelands [facility]ician [facility] Work Phone: Start: 14-41-1457Joq-patient / Non-visitFirwacos Physician Group-Heart Rhythm ClinicStart: 03-02-2024 End: 03-10-4511oqbueozgobAnaqtrdrgMary [facility] Work Phone: Start: 03-02-2024 End: 36-52-9816Urubxab encounter procedureUnc Medical Center [facility] Work Phone: Start: 03-01-2024 End: 10-37-9358Fgimydksri hospital visit by physicianE[facility] 2 [facility] HospitalComment on above:ICD (implantable cardioverter- defibrillator) in placeStart: 03-01-2024 End: 75-66-9878kvhoztxwjcNUXV J QUANAshtabula [facility] Start: 12-22-2023 End: 32-92-7199graohtoyznZyyexmbnfFisher-[facility] Work Phone: Start: 12-22-2023 End: 77-42-7456Jyzsjyn encounter procedureUn[facility] Work Phone: Start: 12-02-2023 End: 03-03-0650cmmrlquprnHL Marcia E Braun Work Phone: [facility] Work Phone: Start: 12-02-2023 End: 06-52-9341Yjretdu encounter procedureMD Anupam Pereira Work Phone: [facility]-Pacemaker CheckStart: 42-86-7434Woo-patient / Non-visitFircumberland hospital Physician [facility] Start: 11-18-2023 End: 92-54-6889Sefcfu outpatient visit 25 minutesLupe Rosado MD Work Phone: uh [facility] CenterComment on above:Cardiomyopathy, unspecified type (Multi); Chronic systolic congestive heart failure (Multi); ICD (implantable cardioverter-defibrillator) in place; Obstructive sleep apnea syndrome in adult; Fatigue, unspecified type; Never smoked cigarettes; Class 2 obesity without serious comorbidity with body mass index (BMI) of 37.0 to 37.9 in adult, unspecified obesity typeStart: 11-18-2023 End: 65-49-8275hfaxjjhtufJXAYCH M IBRTexas [facility] AmbulatoryStart: 08-29-2023 End: 64-87-7746hxjdqesjdaMLJJZLFisher-Titus Medical Centertart: 08-29-2023 End: 31-64-2459Ujvigk outpatient visit 25 minutesDaphne Mayes MD Work Phone: [address] [place], [place] [address]Comment on above:ICD (implantable cardioverter-defibrillator) in place (Primary [...] and counseling; Encounter to discuss treatment optionsStart: 32-11-2831Gqxhzs outpatient visit 15 minutesAnupam PereiraFairfield Medical Centertart: 05-28-2023 End: 69-13-9692opfqbaftqiUZ Marcia E Braun Work Phone: [employer] Other Start: 05-28-2023 End: 68-78-4791Zgrhupo encounter procedureMD Anupam Pereira Work Phone: [facility]-Pacemaker CheckStart: 05-20-2023 End: 24-41-1682fmldobbaytMourgn Braun Other [employer] Other Start: 26-09-6856Yypdhnlwk encounterAnupam RandallFairfield Medical Centertart: 05-12-2023 End: 36-15-9655Yvpero outpatient visit 25 minutesLupe Rosado MD Work Phone: [facility] CenterComment on above:Cardiomyopathy, unspecified type (CMS/HCC) (Primary Dx); ICD (implantable cardioverter-defibrillator) in place; Obstructive sleep apnea syndrome in adult; Class 2 obesity without serious comorbidity with body mass index (BMI) of 37.0 to 37.9 in adult, unspecified obesity typeStart: 05-08-2023 End: 54-39-3479Efcaivw encounter procedureMD Anupam Pereira Work Phone: [facility] Work Phone: Start: 02-25-2023 End: 47-84-1296Mircvj outpatient visit 25 minutesLynn Jorgensen APRN-SEISMIC PROSPECTING OBSERVER Work Phone: [facility] CenterComment on above:ICD (implantable cardioverter-defibrillator) in place (Primary Dx); Morbid obesity (CMS/HCC); Chronic systolic congestive heart failure (CMS/HCC); Cardiomyopathy, unspecified type (CMS/HCC); Dyspnea on exertion; Obstructive sleep apnea syndrome in adult; Other fatigueStart: 01-09-2023 End: 23-89-8712fsipnqtuqdTrsekr Braun Other [employer] Other Start: 05-47-7343Cidqbi outpatient visit 15 minutes Anupam Hernandez [facility] ClinicStart: 12-31-2022 End: 29-83-6250uwvafrdbrjRgiwxx Braun Other [employer] Other Start: 56-75-7826Rukgxw outpatient visit 15 minutes Anupam [facility] ClinicStart: 12-24-2022 End: 46-21-9455yugzcqrjgsNtnwsy Braun Other [employer] Other Start: 01-31-6540Kgcqhc outpatient visit 15 minutes Anupam Hernnadez [facility] ClinicStart: 12-20-2022 End: 82-33-8082wkhndrrelpMnarhy Braun Other [employer] Other Start: 86-12-8598Rokwqeoxn encounterMarcia Yudy David [facility] ClinicStart: 12-16-2022 End: 76-60-9363mxdcrwnyjmAttbtj Braun Other [employer] Other Start: 78-75-7472Fqanxtkfn encounterMarmichael Jimenes [facility] ClinicStart: 11-28-2022 End: 97-58-3463nzvhzgjrulQR Anupam Pereira Work Phone: [facility] Work Phone: Start: 11-28-2022 End: 23-90-3613Pgtwrgm encounter procedureMD Anupam Pereira Work Phone: [facility]-Pacemaker CheckStart: 39-46-7688shwvrlndulAt. Lupe RosadoFacility:9844Start: 10-09-[address] VanceimFacility:[address]Ujhhk: 21-53-3890Ivcick outpatient visit 25 minutesAnupam Pereira Work Phone: 1(852) [phone]-Uigtx [facility] 250 DO Work Phone: Start: 95-29-3630votqicblxhRj. Anupam Pereira Facility:9090Start: 08-28-2022 End: 53-55-2491ofiyvcmypgQK Marcia E Braun Work Phone: [facility] Work Phone: Start: 08-28-2022 End: 89-35-0544Hejyjaz encounter procedureMD Anupam Pereira Work Phone: [facility]-Pacemaker CheckStart: 59-66-4557wqntwhsqrpAo. Lupe Readcility:9844Start: 08-15-2022 End: 16-98-8474oyphlbzqcrKRIZOURVWNVS LAKSHMIPATHY .Facility:H5Frcgh: 07-17-20[address] Lupe RosadoFacility:9844Start: 07-16-2022 End: 74-62-0049yqjfuwoyhnFP ANUPAM Morgancility:X2Cmlkm: 67-54-2969Eilesaplm for preprocedural cardiovascular examinationDR JANICE IRVING .[facility] Hospitaltart: 07-09-2022 End: 31-57-0029sakewufkanWT MARCIA E BRAUNFacility:F0Npbkd: 07-09-2022 End: 05-62-1496Ehiekgbsm for preprocedural cardiovascular examinationDR ANUPAM PEREIRAFacility:A4Mvdkr: 06-20-2022 End: 26-35-4618mmyolfdjrlFQ MARCIA E BRAUNFacility:J9Ieplq: 06-04-2022 End: 12-01-5838krgubnyzbcDJ MARCIA E BRAUNFacility:Q9Aaait: 05-23-2022 End: 51-73-5574segdmltnmjOJ MARCIA E DrAvailable Other Start: 74-48-3675Ymnouuwen encounterAnupam Jimenes [facility] ClinicStart: 05-21-2022 End: 77-39-6514ofltoqiissHP MARCIA E DrAvailable Other Start: 77-54-8224Ywwhey outpatient visit 15 minutes Anupam Jimenes [facility] ClinicStart: 05-17-2022 End: 38-09-0749cxzgtbecxeRJZack Pereira Work Phone: [facility] Work Phone: Start: 05-17-2022 End: 17-32-3702Hvyonjj encounter procedureMD Anupam Pereira Work Phone: [facility]-Pacemaker CheckStart: 05-07-2022 End: 78-37-5149bnlofaahwdDW MARCIA E BRAUNFacility:S1Uarrr: 04-23-2022 End: 70-83-2995yirrehevqmXFNessa PEREIRAFacility:V9Gpzzs: 79-24-3119Satanp outpatient visit 25 minutesAnupam Pereira Work Phone: [phone]-Zqftr [facility] [address] DO Work Phone: Start: 10-67-7116ezpiiojyetTqDr. Lupe Rosado Facility:[id number]: 04-09-2022 End: 10-43-9375nbwbvpdchvQUNessa PEREIRAFacility:V6Mxsdd: 75-73-7605wtqavdosxucindy PereiraFacility:9090Start: 02-12-2022 End: 78-48-4398rdpowbcdybNJJusto Pereira Work Phone: [facility] Work Phone: Start: 02-12-2022 End: 14-54-0601Ahdhalp encounter procedureMD Anupam Pereira Work Phone: [facility]-Pacemaker CheckStart: 02-04-2022 End: 08-25-2337ceboayhywoKY MARCIA E BRAUNFacility:T0Peiza: 82-80-9473rdbcbgbphe Dr. Anupam PereiraFacility:[id number]: 11-07-2021 End: 01-96-1703Tsuaghf encounter procedureMD Anupam Pereira Work Phone: [facility]-Pacemaker CheckStart: 11-06-2021 End: 84-42-2444rnasihfrxlNJ HASSAN M IBRAHIMFacility:P2Dwtck: 01-59-6268Wrwtzk outpatient visit 25 minutesAnupam Pereira Work Phone: [phone]-Nqqrp [facility] 250 DO Work Phone: Start: 09-07-2021 End: 32-01-2490juqwzmamyqXS MARCIA E BRAUNFacility:P4Ctbsc: 73-27-2530Roskf UpdateAnupam Pereira Work Phone: [phone]-Iqbzu [facility] 320 DO Work Phone: Start: 69-33-1799In RenewalAnupam Pereira Work Phone: [phone]-Lsnmx [facility] 250 DO Work Phone: Start: 19-42-2133Ftefig follow up visit related to original Stefnai Pereira Work Phone: [phone]-Jbyzn [facility] 250 DO Work Phone: Start: 07-31-2021 End: 54-92-1917Xcrzikv encounter procedure Anupamlamine Pereira Work Phone: [facility] COVID TestingStart: 20-64-9926UQFFKDzeaue E Braun Work Phone: [phone]-Wxljr [facility] Work Phone: Start: 07-18-2021 End: 81-92-7200Jjfqvof encounter procedureMD Anupam Randall Work Phone: [facility] SwabStart: 67-88-5147LyglmhmHzhsuq E Braun Work Phone: [phone]-Imqsj [facility] 320 DO Work Phone: Start: 07-04-2021 End: 03-30-1825Urzkrac encounter procedureMD Anupam Pereira Work Phone: [facility]-Pacemaker CheckStart: 86-06-8877KPFPMGxvcyc E Braun Work Phone: [phone]-Kxkan [facility] [facility] DO Work Phone: Start: 66-05-7909Qu Layton Pereira Work Phone: [phone]-Peabs [facility] 320 DO Work Phone: Start: 07-01-2017 End: 07-81-4801UfhdvnvvlhVevgtv V HampoleFacility:[facility]RYETTAPatient encounter status Anupam Pereira Work Phone: [phone]-Trdwq [facility] [facility] DO Work Phone: End: 62-86-5595Fqsupul encounter statusAnupam Pereira Work Phone: [phone]-Rlcmk [facility] DO Work Phone: Procedures DateProcedureProcedure DetailPerforming ClinicianStart: 00-59-1499WNZ of right wristAnupam Pereira MD Work Phone: Start: 80-27-1680DH pre/post mri xrJay Pereira MD Work Phone: Start: 56-17-2913Rbbphg eval implantable in person multi lead Nadiya Mayes MD Work Phone: Start: 72-66-1128Dmhzb metabolic 2000 panel - Serum or PlasmaMARCIA BRAUNStart: 98-31-5733Tuy routine ecg w/least 12 lds w/i&rKmelanie Mayes MD Work Phone: Start: 72-43-5353GPSQ Antigen (LFIA)MD Anupam Pereira Work Phone: Start: 33-35-3229Qcxucfcyz mammographyRossya Randall Other Insertion of pulse generator of implantable cardioverter defibrillatorRossya E Randall Work Phone: Ligation of fallopian tubeAnupam E Randall Work Phone: Total colonoscopyJulianacia E Randall Work Phone: Comment on above:05May2008; Plan of Treatment DateCare ActivityDetailAuthorStart: 18-72-2810UTqZ/Tdap/Td Vaccines (2 - Td or Tdap)DTaP/Tdap/Td Vaccines (2 - Td or Tdap)[facility] Start: 05-18-2025 End: 38-16-5125Eqqxupl encounter nslbjjaem64/14/2026 10:10 AM EST Office Visit [address] [place] [address] Lupe Rosado MD [address] [place] [address] 2, [place] [address] [place] [address] [facility]: 77-32-1093Epskzkjao vaccinationInfluenza Vaccine (Season Ended)[facility] HospitalStart: 10-06-2024 End: 58-34-1453Vrxdgak encounter /04/2025 9:40 AM EDT Office Visit [address] [place] [address] Lupe Rosado MD [address] [place] [address] 2, [address] [place] [address] [facility]: 50-35-0190Qqlbyrbjhz measurementCreatinine LevelOur Lady of [facility]cy Hospital - [facility]: 98-49-6707Ibidgsunh measurement Potassium [facility]: 86-59-4399OrfrtpsxfTriHealth McCullough-Hyde Memorial Hospitaltart: 06-10-2024 End: 89-93-6073Einwcfe encounter cbvaxsvsm99/06/2025 10:30 AM EST Office Visit [facility] [address] [facility] [address] [place] [address] Lupe Rosado MD [address], [address] [place] [address] [facility]: 05[facility]20[facility]2024 End: 42-72-5154Gxwpw metabolic 2000 panel - Serum or PlasmaBasic Metabolic Panel Lab Routine Cardiomyopathy, unspecified type (Multi) Chronic systolic congesti ve heart failure (Multi) Expected: 05/20/2024 (Approximate), Expires: 11/17/2024 [facility] Service Area Work Phone: Comment on above:Expected: 05/20/2024 (Approximate), Expires: 11/17/2024Start: 04-06-2024 End: 63-79-2450Wjpjayd encounter wetuepuef48/03/2024 11:00 AM EST Office Visit [facility] [address] [facility] [address] [place] [address] Daphne Mayes MD [address] [facility] Medical Office [address], [address] [place] [address] [facility] Start: 02-28-2024 End: 58-11-0755Slhsikz Device Check - In ClinicCardiac Device Check - In Clinic Implantable Cardiac Device Routine ICD (implantable cardioverter-defibrillator) in place Expected: 02/28/2024 (Approximate), Expires: 08/28/2024[facility] Service Area Work Phone: Comment on above:Expected: 02/28/2024 (Approximate), Expires: 08/28/2024Start: 02-20-2024 End: 99-08-5269Kjpmfog encounter procedureFredonia Regional Hospitaltart: 50-17-8800ACPME-19 Vaccine ( season)COVID-19 Vaccine ( season)[facility]: 93-15-3509Sqzigbidr vaccination [facility]: 29-04-5744JhhxwklqxobvbirbTlpdlnnzngdsst [facility]: 11-18-2023 End: 38-95-3092Romewei encounter ajvsnwopi96/16/2024 10:40 AM EDT Office Visit [address] [place] [address] Lupe Rosado MD [address] [facility] [address], [address] [place] [address] [facility]: 08-29-2023 End: 49-54-9119Ovdsjuq encounter njqwtidpc50/26/2024 10:20 AM EDT Office Visit [facility] [address] [facility] [address] [place] [address] Daphne Mayes MD [address] [facility] [address], [address] [place] [address] [facility] Start: 97-04-9036CMX, Provider: Lupe Rosado, Status: Pen, Time: 11:00 AMFUV, Provider: Lupe Rosado, Status: Pen, Time: 11:00 [facility] [place] 250 DO Work Phone: Start: 04-17-2023 End: 09-69-5471Xavvjkv encounter gugnhnfcf37/14/2023 11:00 AM EST Office Visit [address] [place] [address] Lupe Rosado MD [address] [facility] [address], [address] [place] [address] [facility]: 03-11-2023 End: 78-22-9155Fkwdb metabolic 2000 panel - Serum or PlasmaBasic metabolic panel Lab Routine Chronic systolic congestive heart failure (CMS/HCC) Expected: 11/2022 (Approximate), Expires: 02/26/2024[facility] Service Area Work Phone: Comment on above:Expected: 03/11/2023 (Approximate), Expires: 02/26/2024Start: 32-52-1317CGQ, Provider: Daphne Mayes, Status: Pen, Time: 2:00 PMFUV, Provider: Daphne Mayes, Status: Pen, Time: 2:00 PMMP-[facility] [place] 250 DO Work Phone: Start: 48-30-9415Omckwbe encounter procedure FUVPACERENÉ, Provider: [facility], Status: Pen, Time: 1:00 [facility] 250 DO Work Phone: Start: 58-05-5117SHIOV-19 Vaccine ( season) COVID-19 Vaccine ( season)[facility]: 66-74-9764Adfninzyr vaccinationInfluenza Vaccine (#1)[facility]: 73-67-0995PANY, Provider: KENDY [facility] ULTRASOUND 01,[id number], Status: Pen, Time: 10:45 AMECHO, Provider: KENDY [facility]TR[facility] 01,[id number], Status: Pen, Time: 10:45 AMLifeCare [facility] Center 250 DO Work Phone: Start: 57-78-1704TBH, Provider: Lupe Rosado, Status: Pen, Time: 10:40 AMFUV, Provider: Lupe Rosado, Status: Pen, Time: 10:40 AMMPSteven Community Medical Centerusky 250 DO Work Phone: Start: 85-41-0570Jifbrwrsuc measurementCreatinine LevelOur Lady of [facility]: 03-09-2232Sjapedmrk measurement Potassium LevelOur Lady of Mercy Hospital [facility]: 19-11-2702CSJD, Provider: KENDY [facility] ULTRASOUND 01,[id number], Status: Pen, Time: 9:45 AMECH, Provider: KENDY [facility]TR[facility] 01,[id number], Status: Pen, Time: 9:45 AM [facility] Work Phone: start: 94-94-0124ZCBO, Provider: KENDY [facility] ULTRASOUND 01,[id number], Status: Pen, Time: 2:30 PMECHO, Provider: KENDY [facility] ULTRASOUND 01,[id number], Status: Pen, Time: 2:30 PMMP-[facility] [place] 250 DO Work Phone: Start: 42-12-2042CVP, Provider: Lupe Rosado, Status: Pen, Time: 11:10 AMFUV, Provider: Lupe Rosado, Status: Pen, Time: 11:10 [facility]MSnoqualmie [facility] 250 DO Work Phone: Start: 56-13-6705HXP, Provider: Daphne Mayes, Status: Pen, Time: 3:20 PMFUV, Provider: Daphne Mayes, Status: Pen, Time: 3:20 PMSnoqualmie [facility] 250 DO Work Phone: Start: 33-73-8806Ivcyhsp encounter procedure FUVPACEMKR, Provider: [facility],EMCPACEMKR, Status: Pen, Time: 2:20 PM[facility] Work Phone: Start: 28-46-2660MRVAKYDV, Provider: PRABHJOT WALDRON APPRENTICESHIP CONSULTANT 1,[id number], Status: Pen, Time: 2:30 PMNURSEVST, Provider: PRABHJOT WALDRON APPRENTICESHIP CONSULTANT 1,[id number], Status: Pen, Time: 2:30 PMSnoqualmie Valley Hospital [facility] 250 DO Work Phone: start: 31-78-3925COLL, Provider: KENDY [facility] ULTRASOUND 01,[id number], Status: Pen, Time: 1:30 PMECHO, Provider: KENDY [facility] ULTRASOUND 01,[id number], Status: Pen, Time: 1:30 PMLifeCare Medical Center 250 DO Work Phone: Start: 07-98-8182UPM, Provider: Lupe Rosado, Status: Pen, Time: 1:30 PMFUV, Provider: Lupe Rosado, Status: Pen, Time: 1:30 PMLakeview Hospitalia 320 DO Work Phone: Start: 24-97-4707FYH, Provider: Daphne Mayes, Status: Pen, Time: 2:20 PMFUV, Provider: Daphne Mayes, Status: Pen, Time: 2:20 PMLakeview Hospitalia 320 DO Work Phone: start: 02-89-6282Cufvlxz encounter procedure FUVPACEMKR, Provider: [facility],EMCPACEMKR, Status: Pen, Time: 1:20 PMK[facility] 320 DO Work Phone: Start: 79-72-8430AVD CHANGE, Provider: [facility] 4,[id number], Status: Pen, Time: 12:30 PMICD CHANGE, Provider: [facility] 4,[id number], Status: Pen, Time: 12:30 [facility] 3 DO Work Phone: Start: 84-56-5233SHGMXWV, Provider: Daphne Mayes, Status: Pen, Time: 11:00 [facility], Provider: Daphne Mayes, Status: Pen, Time: 11:00 [facility] 3 DO Work Phone: Start: 94-84-7905YSP CHANGE, Provider: [facility] APICULTURE TEACHER 4,[id number], Status: Pen, Time: 2:00 PMICD CHANGE, Provider: [facility] 4,[id number], Status: Pen, Time: 2:00 PMLakeview Hospitalia 320 DO Work Phone: Start: 18-20-0152GENHHSD, Provider: Daphne Mayes, Status: Pen, Time: 11:00 [facility], Provider: Daphne Mayes, Status: Pen, Time: 11:00 AM[facility]East [facility] 320 DO Work Phone: Start: 04-44-4782NCE, Provider: Daphne Mayes, Status: Pen, Time: 8:40 AMFUV, Provider: Daphne Mayes, Status: Pen, Time: 8:40 AMSnoqualmie [facility] Hospital [facility] 320 DO Work Phone: Start: 35-28-5907Mlyqzoy encounter procedure FUVPACEMMARIANO, Provider: [facility],EMCPGORDY, Status: Pen, Time: 7:40 AMSnoqualmie [facility] Hospital [facility] 320 DO Work Phone: Start: 63-73-6082KZJ High Risk: (Elderly (60+) or Population) (1 - Risk 60-74 years 1-dose series)RSV High Risk: (Elderly (60+) or Population) (1 - Risk 60-74 years 1-dose series)[facility]: 77-61-7829KWI patients and/or patients aged 60+ years (1 - 1-dose 60+ series)RSV patients and/or patients aged 60+ years (1 - 1-dose 60+ series)[facility]: 89-54-3314Hrgpov Vaccines (1 of 2)Zoster Vaccines (1 of 2)[facility]: 71-45-1857Gkkewmvvo for malignant neoplasm of breastMammogram [facility]: 53-83-0389LEhD/Tdap/Td Vaccines (1 - Tdap)DTaP/Tdap/Td Vaccines (1 - Tdap)[facility]: 71-82-6635Bkfigdfuqosi vaccinationPneumococcal Vaccine (1 of 2 - PCV)[facility]: 29-90-5851Svbqpycj mellitus screeningDiabetes ScreeningUnSelect Medical Specialty [facility]: 81-96-6792Aigxiqbzt C screening Hepatitis C ScreeningOur Lady of [facility]: 1961 Pneumococcal Vaccine: 65+ Years (1 - PCV)Pneumococcal Vaccine: 65+ Years (1 - PCV)[facility]: 89-59-0644Uejkesstyeci Vaccine: 65+ Years (1 of 2 - PCV)Pneumococcal Vaccine: 65+ Years (1 of 2 - PCV)[facility]: 10-53-7339TXLLX-19 Vaccine (#1)COVID-19 Vaccine (#1)[facility]: 58-28-1910Txjbr panelLipid Panel [facility]: 05-31-1955Medicare Annual Wellness Visit Medicare Annual Wellness Visit (AWV)[facility]: 25-03-3209Ndiwzaczq for malignant neoplasm of colonOur Lady of [facility]: 81-24-1448Ldcuslpxq for osteoporosisBone Density ScanMercy Health Anderson Hospital End: 75-07-2639Wczzyxr Device Check - RemoteCardiac Device Check - Remote Implantable Cardiac Device Routine ICD (implantable cardioverter-defibrillator) in place 52 Occurrences starting 08/29/2023 until 02/28/2024[facility] Work Phone: Comment on above:52 Occurrences starting 08/29/2023 until 02/28/2024atient EducationLow back pain in adultsHighland District Hospital Work Phone: Urine [facility] Immunizations Immunization DateImmunizationNotesCare OwlbezdwBdbfewfe78-74-8178gfdcfdo toxoid, reduced diphtheria toxoid, and acellular pertussis vaccine, Lexus Rosado MD Work Phone: UnSt. [facility] Payers DatePayer CategoryPayerPolicy [id number] 2024Self-pay [id number] Eligibility Medicare/Medicaid Organization [id number] Health InsuranceUNITED HEALTHCARE DUAL COMPLETE UNITED HEALTHCARE DUAL COMPLETE [id number] 2022-Present P Tamara Dailey [address] [place] [address] [id number] [id number] [id number] Health [id number] Health [id number] 2.8.031530.324519 [id number] 2..1.111561.3.579.2.74141-62-5127Zfrkcrk1674398 2..1.145021.3.579.2.49663-08-9689Yrwcdac8553293 2..1.213695.3.579.2.96212-75-1918Oxnurpk8422687 2.0.1.771222.3.579.2.92487-10-5083Ptyqqwe4103782 2.0.1.651164.3.579.2.61946-00-3471Maeumwn4920078 2.0.1.216966.3.579.2.78106-80-3951Fsgqois5595464 2.0.1.402997.3.579.2.53578-74-0124Acjyivx6592243 2.16.840.1.138439.3.579.2.61741-50-8207Hpbsrft9023690 2.16.840.1.691437.3.579.2.61905-43-7265Otknylj3141985 2.16.840.1.249936.3.579.2.95941-51-2465Owpmnvx4080913 2.16.840.1.761493.3.579.2.51176-17-6226Gcjubqe5392704 2.16.840.1.034351.3.579.2.40961-67-4509Qipvyoh6752659 2.16840.1.317966.3.579.2.44232-54-8510Uckzmox76789389 2.16840.1.493220.3.579.2.048586-18-6460Wkfkhox16176399 2.16840.1.342127.3.579.2.958108-09-5654Olbgjal62140808 2.840.1.210866.3.579.2.627341-90-4142Fnpywvg262182344 2.16840.1.732053.3.579.2.49702-36-4469Kjalpvo274783592 2.16840.1.166183.3.579.2.54741-52-0214Pakzifm744052451 2.16840.1.353040.3.579.2.20966-34-6371Wjqbbcz845012540 2.16840.1.486554.3.579.2.78508-94-3017Koixmjr832777617 2.16.840.1.324081.3.579.2.35958-73-5408Wcbgrlx566863451 2.16840.1.814549.3.579.2.73434-12-3338Pxljxlh25952672 2..1.117848.3.579.2.162694-87-0928Mvsyddv39639812 2..1.441255.3.579.2.834641-14-8921Vszrkah593841881 2..1.921885.3.579.2.020289-80-0222Cxyyjva432734916 2..1.813048.3.579.2.138925-10-5708Kmuausf920241983 2..1.098960.3.579.2.927136-90-1942Euybtat81641065 2..1.383[id number] Health [id number] 2..1.552425.3.579.2.908Qpwagwd32501638 ..1.086315.3.579.2.531 Ghtzeki90175810 2..1.580841.3.579.2.982Rbqrwqy44248499 2..1.756643.3.579.2.732Liuozvi46720848 2..1.967747.3.579.2.531 Fxflnly35916765 2..1.449027.3.579.2.531 Social History DateTypeDetailFacilityStart: 10-09-2021 End: 40-76-7127Ksdpnqal useCaffeine useUnSt. John of God HospitalComment on above:1 1/2 daily (Pop);Start: 67-57-0408Ewo Assigned At [facility] Hospitaltart: 10-09-2021 End: 42-63-3534Ple Assigned At [facility] HospitalStart: 02-25-2023 End: 35-58-6833Knotmuh smoking status NHISNever smoked tobaccoUnSt. John of God Hospital Work Phone: Start: 95-04-0807Kxxwwzo use and exposureSmokeless tobacco non-userUnSt. John of God Hospital Work Phone: Start: 17-96-1772Mvt Assigned At [facility] HospitalNot on file [facility] Work Phone: Start: 02-15-2023 End: 34-25-5783Nlnjiabc to SARS-CoV-2 (event)Not sureUnSt. John of God HospitalStart: 08-29-2023 End: 84-84-0949Pepapcndf beverage intakeLifetime non-drinker (finding)[facility] Work Phone: Start: 05-31-2024 End: 16-62-4075OhaDxzsii (finding)[facility] Functional Status OyhoHecxoynxmgNpsamuXuqhpfxx05-64-6271PSD-6MCC3QKGIDN Moderate (10-14)[facility] 250 DO Work Phone: Clinical Notes 08-02-2021 to 12-31-2024 Note Date & LpqzHckiXwrowswq11-71-5064 Evaluation note* Diagnosis Onset Date Resolution Status Admit Date Bronchitis acuteAugust 2024 1:03pmHeart failureacuteAugust 2024 1:03pm Costovertebral (angle) tenderness, bilateralacuteOctober 2024 10:02amLumbar painacuteOctober 2024 10:02amUrinary frequencyacuteOctober 2024 10:02am [facility] Work Phone: 1(789) 289-955806-04-2025 History of Present illness Narrative* Lupe Rosado [...] AICD discharge. [facility]with [facility]. Her weight remains above target and class [...] AICD, device is assessed by electrophysiology at [facility], last device check September 10, 2024 was available for review, it demonstrated no abnormalities and the data were sharedwith the patient 3-status post cardiac catheterization at [facility] was normal, this was back in 2017 [...] exam, discussion and plan. documented in this [facility] Work Phone: 1(861) 216-399406-04-2025 Instructions* Patient Instructions* Scarlet Loomis LPN - [...] Same medications Follow up documented in this [facility] Work Phone: 1(918) 304-638402-10-2025 Evaluation note* Diagnosis Onset Date Resolution Status Admit Date Right wrist fracture acuteFebruary 2024 1:11pmAbnormal weight gainacuteMarch 2024 8:41am DepressionacuteMarch 2024 8:41amHeart failureacuteMarch 2024 8:41am Impaired fasting glucoseacuteMarch 2024 8:41amObesity, Class II, BMI 35-39.9acuteMarch 2024 8:41amObstructive sleep apneaacuteMarch 2024 8:41amOsteoarthritisacuteMarch 2024 8:41am [facility] Work Phone: 1(108) 903-402802-06-2025 History of Present illness Narrative* Lupe Rosado [...] AICD, device is assessed by electrophysiology at [facility] 3-cardiac catheterization 8 years [...] exam, discussion and plan. documented in this [facility] Work Phone: 1(224) 157-325802-06-2025 Instructions* Patient Instructions* Jyotsna Thayer LPN - [...] through Care Everywhere. * Heart Healthy Diet (Stateless) documented in this [facility] Work Phone: 1(430) 232-672501-27-2025 Evaluation note* Diagnosis Onset Date Resolution Status Admit Date Depression acuteJanuary 2024 11:18amHeart failureacuteJanuary 2024 11:18am Impaired fasting glucoseacuteJanuary 2024 11:18amObesity, Class II, BMI 35-39.9acuteJanuary 2024 11:18amObstructive sleep apneaacuteJanuary 2024 11:18amOsteoarthritisacuteJanuary 2024 11:18am [facility] Work Phone: 1(473) 430-293101-27-2025 Evaluation note* Diagnosis Onset Date Resolution Status Admit Date Depression acuteJanuary 2024 11:18amHeart failureacuteJanuary 2024 11:18am Impaired fasting glucoseacuteJanuary 2024 11:18amObesity, Class II, BMI 35-39.9acuteJanuary 2024 11:18amObstructive sleep apneaacuteJanuary 2024 11:18amOsteoarthritisacuteJanuary 2024 11:18amRight wrist fracture acuteFebruary 2024 1:11pm [facility] Work Phone: 1(195) 671-714801-27-2025 Evaluation note* Diagnosis Onset Date Resolution Status [...] 8:41amObstructive sleep apneaacuteMarch 2024 8:41amOsteoarthritisacuteMarch 2024 8:41am [facility] Work Phone: 1(636) 226-475910-29-2024 Evaluation note* Diagnosis Onset Date Resolution Status Admit Date Depression acuteOctober 2023 10:47am [facility] Work Phone: 1(281) 893-761107-16-2024 History of Present illness Narrative* Lupe Rosado [...] AICD, device is assessed by electrophysiology at [facility] 3-cardiac catheterization 8 years [...] exam, discussion and plan. [facility] in [facility] Work Phone: 1(286) 964-352207-16-2024 Instructions* Patient Instructions* Scarlet Loomis LPN - [...] 6 months with lab documented in this [facility]Mer[facility] Work Phone: 1(284) 496-473504-26-2024 History of Present illness Narrative* Daphne Mayes [...] dictation application being used. documented in this encounterMercy [facility] Work Phone: 1(331) 516-355904-26-2024 Instructions* Patient Instructions* Anel Samano RN - [...] MD, FACC, FACP, RS documented in this encounterMer[facility] Work Phone: 1(350) 839-120501-24-2024 Evaluation note* Encounter Date Diagnosis Assessment Notes Treatment Notes Treatment Clinical Notes 24 Ki, 2024 Influenza A (ICD-10 - J10.1) resolved. discussed symptomatic care May,cute bronchitis, unspecified organism (ICD-10 - J20.9)No further antibiotics or steroids indicated. Recommened conservative measures for help w laryngitis. May,ardiomyopathy as manifestation of underlying disease (ICD-10 - I43) Pt states she has appt today w her insurance broker. [employer] Other 01-08-2024 History of Present illness Narrative* Lupe Rosado MD - 05/12/2023 1:30 PM EST Subjective Nya Bell is a 67 y.o. female Chief Complaint Follow-up HPI Patient is in the office for follow-up for the problems noted below. She was in [place] recently and had flu syndrome which left her with significant bronchitis that was noted during today's visit. Her lab data from [place] was reviewed, cardiac enzymes were normal other [...] AICD, device is assessed by electrophysiology at [facility] 3-cardiac catheterization 8 years [...] of Lupe Rosado MD. documented in this [facility] Work Phone: 1(354) 809-505601-08-2024 Instructions* Patient Instructions* Africa Noland LPN - [...] follow up per routine documented in this encounterMercy [facility] Work Phone: 1(747) 183-900710-24-2023 History of Present illness Narrative* Lynn Jorgensen, NATE-SEISMIC PROSPECTING OBSERVER - 02/25/2023 10:00 AM EDT CARDIOLOGY OFFICE VISIT CHIEF COMPLAINT Chief Complaint Patient presents with Device Check Routine check up HISTORY OF PRESENT ILLNESS HPI The patient is a 67-year-old female who is followed for nonischemic cardiomyopathy with a left ventricular ejection fraction improved to 60 to 65% per 2D echocardiogram dated November 22, 2022, [place] [employer] class II- III, stage C [...] per 2D echocardiogram dated November 22, 2022, [place] [employer] class III, stage C heart failure. 2. Upgrade to an AV biventricular ICD on August 02, 2021 ([employer] cobalt XT HF Quad [employer]D). Initial implant on January 25, 2015. 3. [...] furosemide. 2. Obtain ICD checks per the [facility] device clinic as scheduled. Patient was instructed to obtain an in clinic device check at [facility] approximately 2 weeks prior to the [...] to prepare this document. documented in this [facility] Work Phone: 1(251) 518-893810-24-2023 Instructions* Patient Instructions* ISAI Mora - 02/25/2023 10:00 AM EDT When taking the lasix, increase dietary potassium intake (orange juice, bananas, skin on potatoes) documented in this [facility] Work Phone: 1(361) 752-805209-07-2023 Evaluation note* Encounter Date Diagnosis Assessment Notes Treatment Notes Treatment Clinical Notes Jan, Bronchitis (ICD-10 - J40) Discussed diagnosis with patient. Patient to take antibiotic daily with food as prescribed. Finish entire course of antibiotic. Proair inhaler sent today for patient to use PRN cough/wheezing/shortness of breath. Njdu-xxp-vssxmeh antipyretics as needed. Warning signs and symptoms reviewed with patient today. Patient to go immediately to the ER should she experience any of these. Patient to notifyoffice should her symptoms persist and not improve. Patient verbalizes understanding and agrees to treatment plan. [facility] Other 08-29-2023 Evaluation note* Encounter Date Diagnosis Assessment Notes Treatment Notes Treatment Clinical Notes Dec, Bronchitis (ICD-10 - J40) Discussed diagnosis with patient. Finish entire course of antibiotic. Proair inhaler sent today forpatient to use PRN cough/wheezing/shortness of breath. Tessalon Pearles ordered to take as needed for cough. Increase fluids and rest. Vdos-wwh-kfrynch antipyretics as needed. Warning signs and symptoms reviewed with patient today. Patient to go immediately to the ER should she experience any of these. Patient to notify office should her symptoms persist and not improve. Patient verbalizes understanding and agrees to treatment plan. [facility] Other 08-22-2023 Evaluation note* Encounter Date Diagnosis Assessment Notes Treatment Notes Treatment Clinical Notes Dec, Acute pain of right shoulder (IC D-10 - M25.511) Check xray. Add meds for pain relief and muscle relaxation. Will call pt w xray results. Dec,hest congestion (ICD-10 - R09.89)Start w CXR and assess for pneumonia - will base treatment on CXR results later today. [facility] Other 02-16-2023 NoteCONSULTATION CONSULTATION DATE: 06/20/2022 HISTORY [...] office thereafter.[facility]Pwqttdvi97-29-1115 NoteCONSULTATION CONSULTATION DATE: 05/23/2022 HISTORY OF PRESENT [...] clinic thereafter.[facility]Kazqsbye50-06-9925 Evaluation note* Encounter Date Diagnosis Assessment Notes Treatment Notes Treatment Clinical Notes May, Vitamin D deficiency (ICD-10 - E 55.9) [facility] Other 01-17-2023 Evaluation note* Encounter Date Diagnosis [...] - I43) Reviewed notes from her specialist [facility] 12-06-2022 NoteCONSULTATION CONSULTATION DATE: 04/09/2022 CHIEF [...] was encouraged to follow up with the insurance broker with regards to her pacemaker. The patient is looking to schedule herself with regards to a physical and blood work by Dr. Pereira. CC: Anupam Pereira M.D.[id number] NotePROCEDURE: XR FINGER MIN 2 VIEWS COMPARISON: None. HISTORY: Acquired deformity of right finger FINDINGS: BONES:Persistent flexion of the fourth finger. No acute fracture or dislocation SOFT TISSUES:Soft tissue swelling EFFUSION:None visible. OTHER: Negative. IMPRESSION: Soft tissue swelling, no acute fracture Electronically authenticated by: CECY CHRISTIAN Date: 2022-02-05 07:14[facility]03-31-2022 NoteElectrophysiology Procedure TestingPlease click on the link to view the study images (Normal)[facility] 250 DO Work Phone: 1(567) 117-645303-31-2022 NoteElectrophysiology Procedure Testing Please click on the link to view the study images (Normal)[facility] 250 DO Work Phone: 1(105) 395-515403-31-2022 NoteElectrophysiology Procedure Testing Please click on the link to view the study images (Normal)[facility] 3 DO Work Phone: [phone]) 371-161403-31-2022 NoteElectrophysiology Procedure Testing Please click on the link to view the study images (Normal)[facility] [place] 320 DO Work Phone: Chink complaint+Reason for visit Narrative* Chief Complaint headache, back pain, sore throat, ear pain Memory ConcernsReason for VisitCOVID-19 [facility] Work Phone: Evaluation noteNo assessment information available [facility] Work Phone: Evaluation noteNo InformationNofreeman [facility] Other Evaluation note* Diagnosis ICD (implantable cardioverter-defibrillator) in place- Primary Morbid obesity (CMS/HCC) Morbid obesity Chronic systolic congestive heart failure (CMS/HCC) Cardiomyopathy, unspecified type (CMS/HCC) Dyspnea on exertion Other dyspnea and respiratory abnormality Obstructive sleep apnea syndrome in adult Other fatigue documented in this encounter [facility] Work Phone: Evaluation note* Diagnosis ICD [...] discuss treatment options documented in this encounter [facility] Work Phone: Evaluation note* Diagnosis Cardiomyopathy, unspecified type (CMS/HCC)- Primary ICD (implantable cardioverter-defibrillator) in place Obstructive sleep apnea syndrome in adult Class 2 obesity without serious comorbidity with body mass index (BMI) of 37.0 to 37.9 in adult, unspecified obesity type documented in this encounter [facility] Work Phone: Evaluation note* Diagnosis ICD (implantable cardioverter-defibrillator) in place documented in this encounter [facility] Work Phone: Evaluation note* Diagnosis Onset Date Resolution Status COVID-19 acute [facility] Work Phone: Evaluation note* Diagnosis Cardiomyopathy, unspecified type (Multi) Chronic systolic congestive heart failure (Multi) ICD (implantable cardioverter-defibrillator) in place Obstructive sleep apnea syndrome in adult Fatigue, unspecified type Never smoked cigarettes Class 2 obesity without serious comorbidity with body mass index (BMI) of 37.0 to 37.9 in adult, unspecified obesity type documented in this encounter [facility] Work Phone: Evaluation note* Diagnosis ICD (implantable cardioverter-defibrillator) in place- Primary Chronic systolic congestive heart failure Fatigue, unspecified type Obstructive sleep apnea syndrome in adult Never smoked cigarettes BMI 38.0-38.9,adult Class 2 obesity documented in this encounter [facility] Work Phone: Evaluation note* Diagnosis Nonischemic cardiomyopathy (Multi)- Primary Other primary cardiomyopathies ICD (implantable cardioverter-defibrillator) in place Obstructive sleep apnea syndrome in adult Never smoked cigarettes BMI 38.0-38.9,adult Class 2 obesity Other fatigue documented in this encounter [facility] Work Phone: History general Narrative - [...] of left shoulderMedical HistoryLeft shoulder painSurgical History pacemaker/kllfpmmljaxbu1581Ffyvvafg HistoryNASAL ULCFHSN84/2020Surgical History CARDIAC CATH/2013Surgical HistoryLUMBAR NEVER FIJJXLCC02/2016Hospitalization HistorySee Sx Hx [facility] Other History general Narrative - Reported* Type [...] of left shoulderMedical HistoryLeft shoulder painSurgical History pacemaker/kkvhwnrotuoit6060Ditlujxu HistoryNASAL IFOTDFT12/2020Surgical History CARDIAC CATH06/2013Surgical HistoryLUMBAR NEVER UPXISDZH94/2017Hospitalization HistorySee Sx HxH[facility]22 [facility] Other Reason for referral (narrative)* Consultation (Routine) - AuthorizedSpecialtyDiagnoses / ProceduresReferred By Contact Referred To ContactCardiology Diagnoses ICD (implantable cardioverter-defibrillator) in place Procedures Follow Up In Cardiology Lynn Jorgensen APRN-CNP [address] [place] [address] Daphne Mayes MD [address] [place] [address] Referral IDStatusReasonStart DateExpiration DateVisits RequestedVisits [id number]/24/202310/23/202411 T [facility] Work Phone: Reason for referral (narrative)* Consultation (Routine) - AuthorizedSpecialtyDiagnoses / ProceduresReferred By Contact Referred To ContactCardiology Diagnoses Cardiomyopathy, unspecified type (CMS/HCC) Procedures Follow Up In Cardiology Lupe Rosado MD [address] [facility] 2, [address] [address] Lupe Rosado MD [address] [place] [address] 2, [facility] [address] [place] [address] Referral IDStatusReasonStart DateExpiration DateVisits RequestedVisits [id number]/8/20241/ [facility] Work Phone: Rejepv for referral (narrative)* Consultation (Routine) - AuthorizedSpecialtyDiagnoses / ProceduresReferred By Contact Referred To ContactCardiology Diagnoses Chronic systolic congestive heart failure (Multi) Procedures Follow Up In Cardiology Lupe Rosado MD [address] [facility] [address], [address] [address] Lupe Rosado MD [address] [place] [address] 2, [address] [address] Referral IDStatusReasonStart DateExpiration DateVisits RequestedVisits [id number]/16/20247/16/202511 [facility] Work Phone: Reason for referral (narrative)No reason for referral information availableHighland District Hospital Work Phone: Reason for visit Narrative* Imaging (Routine) - Pending ReviewSpecialtyDiagnoses / ProceduresReferred By ContactReferred To ContactCardiology Diagnoses ICD (implantable cardioverter-defibrillator) in place Procedures Cardiac Device Check - In Clinic Daphne Mayes MD [address] [facility] Medical Office Bldg, [place] [address] [place] [address] Phone: tel: fax: Referral IDStatusRecriseldaStfernanda DateExpiration DateVisits RequestedVisits [id number] Review Perform Procedure [address] [facility] Work Phone: Summary Purpose Family History [...] Complaint cardiomyopathy Chief Complaint [facility] Chief Complaint defib machine issues headache, back pain, sore throat, ear pain Chief Complaint headache, back pain, sore throat, ear pain Memory Concerns cardiomyopathy CC Adult Risk StratificationReason for VisitCOVID-19 Chief Complaint Admit Date Memory Concerns March 02, 2024 1 0:47am cardiomyopathy March 03, 2024 1 0:19am CC Adult Risk Stratification February 12:02pm [facility] May 31 11:18am Reason for Visit Admit Date Depression March 02, 2024 1 0:47am Chief Complaint Admit Date [facility] May 31 11:18am defib machine issues June 03, 2024 2:28pm Reason for Visit Admit Date Depression May 31, 2024 1 1:18am Heart failure May 31, 2024 1 1:18am Impaired fasting glucose May 31, 025 11:18am Obesity, Class II, BMI 35-39.9 May 062024 11:18am Obstructive sleep apnea May 31 11:18am Osteoarthritis May 31, 2024 1 1:18am Chief Complaint Admit Date [facility] May 31 11:18am defib machine issues June 03, 2024 2:28pm Amb Documentation June 08, 2024 1 :31pm [facility] ER f/u, broken wrist right June 14, 2024 1:11pm Chief Complaint Admit Date [facility] May 31 11:18am defib machine issues June [...] 2024 8:4 1am Chief Complaint Admit Date [facility] May 31 11:18am defib machine issues June [...] gen change. Done by Dr. Mayes at [facility] on 07/19/2021. Dr. Gaudencio Mendoza [...] AICD, device is assessed by electrophysiology at [facility], had recent battery change [...] AICD, device is assessed by electrophysiology at [facility], had recent battery change [...] AICD, device is assessed by electrophysiology at [facility], had recent battery change [...] AICD, device is assessed by electrophysiology at [facility] * 3 cardiac catheterization [...] AICD, device is assessed by electrophysiology at [facility] * 3 cardiac catheterization [...] scheduled. We will arrange for that at [facility]. Her weight is unchanged [...] AICD, device is assessed by electrophysiology at [facility] * 3 cardiac catheterization [...] - Remote Daphne Mayes MD [address] [facility], [address] [address] Referral IDStatusReasonStart DateExpiration DateVisits RequestedVisits [id number] Review Perform Procedure [id number] / ProceduresReferred By ContactReferred To ContactCardiology Diagnoses ICD (implantable cardioverter-defibrillator) in place Procedures Cardiac Device Check - In Clinic Daphne Mayes MD [address] [facility], [address] [address] Referral IDStatusReasonStart DateExpiration DateVisits RequestedVisits [id number] Review Perform Procedure [id number] / ProceduresReferred By ContactReferred To Contact Diagnoses ICD (implantable cardioverter-defibrillator) in place Procedures ECG 12 lead (Clinic Performed) Daphne Mayes MD [address] [facility], [address] [address] Referral IDStatSnaapiqReSocialCompareart DateExpiration DateVisits RequestedVisits [id number]/26/20244/26/202511 Additional Source Comments INFORMATION SOURCE (unrecogn ized section and content) DATE CREATED AUTHOR 10/24/2017 [facility] DATE CREATED AUTHOR AUTHOR'S ORGANIZ ATION 11/13/2018 [facility] DATE CREATED AUTHOR AUTHOR'S ORGANIZ ATION 08/02/2020 [facility] DATE CREATED AUTHOR AUTHOR'S ORGANIZ ATION 08/22/2022 [facility] DATE CREATED AUTHOR AUTHOR'S ORGANIZ ATION 10/14/2022 [facility] DATE CREATED AUTHOR AUTHOR'S ORGANIZ ATION 11/23/2022 [facility] DATE CREATED AUTHOR AUTHOR'S ORGANIZ ATION 12/10/2022 [facility] DATE CREATED AUTHOR AUTHOR'S ORGANIZ ATION 09/03/2023 [facility] DATE CREATED AUTHOR AUTHOR'S ORGANIZ ATION 03/05/2024 [facility] DATE CREATED AUTHOR AUTHOR'S ORGANIZ ATION 05/23/2024 [facility] DATE CREATED AUTHOR AUTHOR'S ORGANIZ ATION 10/07/2024 [facility] DATE CREATED AUTHOR AUTHOR'S ORGANIZ ATION 03/14/2025 [facility] Care Teams (unrecognized sec tion and content) Team Status: Active Member Role Status Dates Anupam Pereira MD Primary Care Provider Active Team Status: Active Member Role Status Dates Anupam Pereira MD Primary Care Provider Active Start: December 09, 2024 [facility] ProviderActiveStart: December 09, 2024 Chasity Harper MDAverona [...] Date End Date Anupam Pereira MD [address] [place] [id number] PCP - General09/30/19 Team Status: Inactive Member Role Status Dates Anupam Pereira MD Attending Provider Active St art: May 08, 2023 End: May 08, 2023 Team Status: Inactive Member Role Status Dates Anupam Pereira MD Primary Care Provider Active Start: May 28, 2023 End: May 28, 2023Fermin Smart ProviderActive Start: May 28, 2023 End: May 28, 2023Team MemberRelationshipSpecialtyStart DateEnd Date Anupam Pereira MD [facility] [place] [address] PCP - Generalmily Tuukyhzv66/13/23 Lynn Jorgensen PLASTER LATHER-SEISMIC PROSPECTING OBSERVER [address] [place] [address], [facility] [address] [place] [address] Nurse AyykmonvckjhKmwvyfhrbx57/3/23Team MemberRelationshipSpecialtyStart DateEnd Date Anupam Pereira MD [address] [place] [address] PCP - [facility] Wjfiqesj81/13/23 Lynn Jorgensen PLASTER LATHER-SEISMIC PROSPECTING OBSERVER [address] [facility], [facility] [address] [place] [address] Nurse XkkfvhxgzgumOqdbeqfncd48/3/23 Team Status: Inactive Member Role Status Dates Anupam Pereira MD Primary Care Provider Active Start: December 02, 2023 End: December 02, 2023Fermin Smart ProviderActiveStart: December 02, 2023 End: December 02, 2023Team MemberRelationshipSpecialtyStart DateEnd Date Anupam Pereira MD [address] [place] [address] PCP - [facility] Tfjikjlb09/13/23 Lynn Jorgensen, PLASTER LATHER-SEISMIC PROSPECTING OBSERVER [address] [facility], [address] [place] [address] Nurse XxwhxlhdbawoVhcrbrczjx95/3/23 Team Status: Active Member Role Status Dates [...] Anupam Pereira MD [address] [place] [address] PCP - [facility]04/16/23 Lynn Jorgensen, PLASTER LATHER-SEISMIC PROSPECTING OBSERVER [address] [facility], [facility] [address] [place] [address] Nurse UfqexcsvhpshDbiggjjoff00/3/23Team MemberRelationshipSpecialtyStart DateEnd Date Anupam Pereira MD [address] [place] [address] PCP - [facility]04/16/23 Daphne Mayes MD [address] [facility], [address] [place] [address] SkzkcwxhwxuyAxptxitkfieolvyfx51/20/24 Team Status: Active Member Role Status Dates Anupam Pereira MD Primary Care Provider Active Start: June 08, 2024 Solange Isbell CMAAttending ProviderActiveStart: June 08, 2024 Team Status: Active Member Role Status Dates Anupam Pereira MD Primary Care Provider Active Start: June 03, 2024 Chasity Harper , MDAttending Provider, Other ProviderActiveStart: June 03, 2024 Team MemberRelationshipSpecialtyStart DateEnd Date Anupam Pereira MD [address] [place] [address] PCP - GeneralFamdly Qhbpbbic77/13/23 Daphne Mayes MD [address] [facility] [address]g, [place] [place] [address] BrptmcxizkqnVaeqyhdkldehmythq69/20/24 Team Status: Inactive Member Role Status Dates [...] Follow Up In Cardiology Lupe Rosado MD [address] [place] [address] Phone: tel: fax: Lupe Rosado MD [address] [place] [address] 2, [address] [address] Phone: tel: fax: Referral IDStatusReasonStart DateExpiration DateVisits RequestedVisits [id number]/6/20252/645503AzqomgBtqaatolLxesai CheckRoutine check upReasonCommentsFollow-up6 monthSpecialtyDiagnoses / ProceduresReferred By ContactReferred To ContactCardiology Diagnoses ICD (implantable cardioverter-defibrillator) in place Procedures Follow Up In Cardiology Lynn Jorgensen, NATE-PAMELA [address] [facility], [address] [address] Daphne Mayes MD [address] [facility], [address] [address] Referral IDStatusReasonStart DateExpiration DateVisits RequestedVisits [id number]/24/202310/503569WxetnnJtxlsjffApfiqx-pm9 month ReasonCommentsFollow-up6 monthsSpecialtyDiagnoses / ProceduresReferred By ContactReferred To ContactCardiology Diagnoses Cardiomyopathy, unspecified type (Multi) Procedures Follow Up In Cardiology Lupe Rosado MD [address] [place] [address] 2, [address] [address] Lupe Rosado MD [address] [place] [address] 2, [address] [address] Referral IDStatusReasonStart DateExpiration DateVisits RequestedVisits [id number]/8/20241/490087Pfjakbyb IDStatusReasonStart Date Expiration DateVisits RequestedVisits [id number]/16/2024 FOR RECORDS PERTAINING TO PATIENTS WHO ARE [...] BE BASED ON THE PRIMARY CLINICAL RECORDS. [employer] [facility]. provides no warranty or guarantee of the accuracy or completeness of information in this document.
[2025-04-04 10:26] VITALS: BP 145/74; PULSE 68; TEMP 36.1; O2SAT 99
[2025-04-04 11:14] VITALS: BP 150/74; PULSE 77; O2SAT 97
[2025-04-04 11:15] VITALS: BP 152/71; PULSE 68; O2SAT 97
[2025-04-04] MEDS: LIDOCAINE HCL 2% 400 MG/20 ML MDV INJ (11:15)
[2025-04-04] MEDS: BUPIVACAINE HCL 0.25% PF 25 MG/10 ML VIAL 8 ML INJ (11:16)
--- NOTE | 2025-04-04 11:18 | W.PM.PROCNOT ---
Date of procedure: 04/04/25 Pre-op diagnosis: Pain due to lumbar spondylosis without myelopathy Post-op diagnosis: same as pre-op Procedure: Procedure: Bilateral L4-5, L5-S1 medial branch block Medications: Bupivacaine 0.25% 6cc The patient was seen and examined in the preoperative holding area.? An informed consent was obtained and placed on the chart.? The patient was brought to the medical procedure unit and placed in the prone position.? A timeout was completed verifying correct patient, procedure site, positioning, plan, and special equipment.? Using aseptic technique, the needle was placed at left L4. Under direct fluoroscopic visualization a Quincke-tipped spinal needle was advanced to the junction of the superior articulating process with the transverse process at the designated medial branch segment.? Preceded by negative aspiration, the above-mentioned injectate was placed in 1 mL aliquots.? The procedure was repeated at left L5, S1.? The needle was removed and insertion site was covered. The same procedure, at the same levels, was completed on the right side. The patient was taken to the postprocedural recovery area and monitored for an appropriate length of time before found suitable for discharge in the company of a responsible adult. Anesthesia: Local Surgeon: Vandana Eller Pathology: none sent Condition: stable Disposition: no change
== END 2025-04-04 11:24 | disposition home or self-care (01) ==
PROVIDERS: PCP Family Medicine; Visit Provider Anesthesiology
DX: M47.816 Spondylosis without myelopathy or radiculopathy, lumbar region (principal); M54.50 Low back pain, unspecified; G89.29 Other chronic pain
CPT/HCPCS: 64493; 64494; J0665

== ENCOUNTER 2025-04-06 12:47 | Outpatient (OUT) | payer MEDICARE, MEDICAID, SELFPAY ==
--- OUTSIDE RECORDS SUMMARY | 2023-12-01 07:45 | XMS_ITS ---
Author Organization [facility] vices Address [address] [place] [phone] Care Team Providers Care Contract Processor Name Role Phone Saloni Rowan Unavailable [phone] REASON FOR VISIT Try-In- U/L CDs Medications Medication SIG (Take, Route, Frequency, Duration) Notes Start Date End Date Status Carvedilol ActiveOmeprazoleActiveEntrestoActiveSertraline HCl 100 MG TabletTAKE 1 TABLET BY MOUTH EVERY DAY Oral; Duration: 90 DaysActive Social History Sex Assigned At : Social History Observation Description Sex Assigned At Female Encounters Encounter Location Date Provider Diagnosis [facility] [address] [place] [phone] 12/01/2023 Saloni Rowan Plan Of Treatment No Information Progress Notes * BELLChantelle Farmer LDOB:1955 (69 yo F)Acc No.[id number]:12/01/2023 Dental Note Patient: Chantelle Hernandez :?Saloni Rowan DDSDOB:1955???Age:68 Y ???Sex:FemaleDate:12/01/2023hone:[phone]:[address] [place] [phone] Subjective: * Chief Complaints: * T ry-In- U/L CDs * Medications: T akingCarvedilol Omeprazole Entresto Sertraline HCl 100 MG Tablet TAKE 1 TABLET BY MOUTH EVERY DAY Oral Taking Carvedilol Taking Omeprazole Taking Entresto Taking Sertraline HCl 100 MG Tablet TAKE 1 TABLET BY MOUTH EVERY DAY Oral Billing Information: * Procedure Codes: * Electronic signature of Saloni Rowan DDS on 04/06/2025 at 12:50 PM EST Sign off status: Pending * Provider: Adrienne Rowan DDS Date: 0 12/01/2023 Generated for Printing/Faxing/eTransmitting on:?04/06/2025 12:50 PM EST
--- OUTSIDE RECORDS SUMMARY | 2024-01-07 09:00 | XMS_ITS ---
Author Organization [facility] vices Address [address] [place] [phone] Care Team Providers Care Planting Machine Crewman Name Role Phone Saloni Rowan Unavailable [phone] REASON FOR VISIT Try In Medications Medication SIG (Take, Route, Frequency, Duration) Notes Start Date End Date Status Carvedilol ActiveOmeprazoleActiveEntrestoActiveSertraline HCl 100 MG TabletTAKE 1 TABLET BY MOUTH EVERY DAY Oral; Duration: 90 DaysActive Social History Sex Assigned At : Social History Observation Description Sex Assigned At Female Encounters Encounter Location Date Provider Diagnosis [facility] [address] [place] [phone] 01/07/2024 Saloni Rowan Plan Of Treatment No Information Progress Notes * RUY Chantelle LDOB:1955 (69 yo F)Acc No.[id number]:01/07/2024 Dental Note Patient: Chantelle Hernandez :?Saloni Rowan DDSDOB:1955???Age:68 Y ???Sex:FemaleDate:01/07/2024hone:[phone]:[address] [place] [phone] Subjective: * Chief Complaints: * T ry [...] DDS Date: 0 01/07/2024 Generated for Printing/Faxing/eTransmitting on:?04/06/2025 12:50 PM EST
--- OUTSIDE RECORDS SUMMARY | 2024-08-09 06:40 | XMS_ITS ---
Author Organization [facility] Address [address] [place] [address] Care Team Providers Care Coronary Clinical Specialist Name Role Phone Norma Tapia M.D. Primary Care Provider Unavail able Clint Aden Unavailable [phone] Chloe Jacobo Unavailable [phone] REASON FOR VISIT RIGHT STYLOID FX Encounters Encounter Location Date Provider Diagnosis [facility] Office [address] [place] [address] [address] [place] [address] 08/09/2024 [facility] Acute pain of right wrist M25.531 and Contusion of right wrist, initial encounter S60.211A Assessments Encounter Date Diagnosis (ICD Code) Assessment Notes Treatment Notes Treatment Clinical Notes Section Notes 08/09/2024 Acute pain of right wrist (ICD-1 0 - M25.531) Right EPL partial tear versus tenosynovitis Right distal radius bony contusion 08/09/2024ontusion of right wrist, initial encounter (ICD-10 - S60.211A) Right EPL partial tear versus tenosynovitis Right distal radius bony contusion 08/09/2024OtherReviewed patient's MRI results with her and recommending continuing conservative treatment. I am going to give her a prescription for physical therapy to start working on restoring finger ROM as her pain is decreasing. She will wear her brace as needed but we did discuss attempting to wean out of it as tolerated. She is not a good candidate for NSAIDs given her cardiac history. We will see her back in 2 months as she does live in [place] part-time with her significant other. Right EPL partial tear versus tenosynovitis Right distal radius bony contusion Plan Of Treatment Treatment Notes Assessment Notes Other Reviewed patient's M RI results with her and recommending continuing conservative treatment. I am going to give her a prescription for physical therapy to start working on restoring finger ROM as her pain is decreasing. She will wear her brace as needed but we did discuss attempting to wean out of it as tolerated. She is not a good candidate for NSAIDs given her cardiac history. We will see her back in 2 months as she does live in [place] part-time with her significant other. Pending Test Test Name Order Date SCC- PT/OT EVAL AND TREAT 3X/WEEK FOR 6 WEEKS 08/09/2024 Next Appt Details Follow Up: 9 WEEKS, Reason: Progress Notes * REDMOND, NYADOB:1955 ([age] yo F)Acc No.[id number]:08/09/2024 Patient:?NYA REDMOND :?Chloe Grubbs, PADOB:1955???Age:68 Y???Sex:FemaleDate:08/09/2024Phone:[phone]:[address] [place], [place] [id number]:Norma Tapia M.D. Subjective: * Chief Complaints: * 1 . RIGHT STYLOID FX. * HPI: ???General Follow Up Information:? Patient returns the office today for recheck of her right wrist pain after a fall at the beginning of June. Patient has been immobilized in a splint/cast for 6 weeks. She continues to wear a wrist brace. At her last appointment we did order an MRI of the wrist to further evaluate for sources of persistent pain. She returns today to review results. She states that she is doing better and has decreased pain in the wrist and thumb. * Medical History: Objective: * Vitals: * Examination: ???General examination: ???On exam patient is in no distress, age-appropriate, alert oriented x 3. On inspection of the wrist skin is intact, minimal to no swelling dorsally, no erythema, no warmth to touch. There is still stiffness of all her joints in her fingers and thumb, patient unable to make a full fist but flexion is somewhat improving. There is full extension of all fingers and thumb. There is tenderness minimal tenderness with palpation of the radial side of the wrist. There is brisk capillaryrefill and sensation intact all fingers and thumb. ???MRI Imaging Studies: ???MRI right wrist without contrast was reviewed from [facility] from 08/03/24 Impression No linear fracture. Subtle carpal distal radius bony edema. Likely related to degenerative change and possible bony contusion. Degenerative central fibrocartilage tendon with small amount effusion inthe distal radial ulnar joint. No traumatic tear. Findings of tenosynovitis/partial tear of the extensor pollicis longus at Disha's tubercle. ??? Assessment: * Assessment: 1.?Contusion of right wrist, initial encounter - S60.211A (Primary)???2.?Acute pain of right wrist - M25.531???Right EPL partial tear versus tenosynovitis Right distal radius bony contusion. Plan: * Treatment: ?LAB: SCC- PT/OT EVAL AND TREAT 3X/WEEK FOR 6 WEEKS2.?Acute pain of right wrist?LAB: SCC- PT/OT EVAL AND TREAT 3X/WEEK FOR 6 WEEKS3.?Others? Notes: Reviewed patient's MRI results with her and recommending continuing conservative treatment. I am going to give her a prescription for physical therapy to start working on restoring finger ROM as her pain is decreasing. She will wear her brace as needed but we did discuss attempting to wean out of it as tolerated. She is not a good candidate for NSAIDs given her cardiac history. We will seeher back in 2 months as she does live in [place] part-time with her significant other.?? * Preventive Medicine: ??MIPS Measures:?[id number] Fall Risk?Screening:?One fall with injury in the past year.?# 155 - Falls Plan of Care?Plan of Care:?Documented,?Type of fall planof care:?Balance, strength and gait training or instruction provided.? ??Screenings:?Fall Risk Screening?Fall Risk Assessment:?One fall with injury in the past year.? ??EFRAIN Screening:?FALLS: Screening for Future Fall Risk?Have you had two or more falls in the past year??No,?Have you had any falls with injury in the past year??Yes.? * Follow Up: 9 WEEKS Forms: * Images: * Electronic signature of Chloe Jacobo PA-C on 04/06/2025 at 12:50 PM ESTSign off status: Pending * Provider: JOSIAS Altamirano Date: 0 08/09/2024 Generated for Printing/Faxing/eTransmitting on:?04/06/2025 12:50 PM EST History and Physical Notes * HPI (History of Present Illness) CategorySub-CategoryDetailNotesCategory NotesGeneral Follow Up Information Patient returns the office today for recheck of her right wrist pain after a fall at the beginning of June. Patient has been immobilized in a splint/cast for 6 weeks. She continues to wear a wrist brace. At her last appointment we did order an MRI of the wrist to further evaluate for sources ofpersistent pain. She returns today to review results. She states that she is doing better and has de creased pain in the wrist and thumb. Examination CategorySub-CategoryDetailNotesCategory NotesGeneral examinationOn exam patient is in no distress, age-appropriate, alert oriented x 3. On inspection of the wrist skin is intact, minimal to no swelling dorsally, no erythema, no warmth to touch. There is still stiffness of all her joints in her fingers and thumb, patient unable to make a full fist but flexion issomewhat improving. There is full extension of all fingers and thumb. There is tenderness minimal tenderness with palpation of the radial side of the wrist. There is brisk capillary refill and sensation intact all fingers and thumb.MRI Imaging Studies MRI right wrist without contrast was reviewed from [facility] from 08/03/24 Impression No linear fracture. Subtle carpal distal radius bony edema. Likely related to degenerative change and possible bony contusion. Degenerative central fibrocartilage tendon with small amount effusion inthe distal radial ulnar joint. No traumatic tear. Findings of tenosynovitis/partial tear of the extensor pollicis longus at Disha's tubercle.
--- OUTSIDE RECORDS SUMMARY | 2024-10-11 06:40 | XMS_ITS ---
Author Organization [facility] Address [address] [place] [address] Care Team Providers Care Prawn Trawler Hand Name Role Phone Willie Valdivia, Norma Primary Care Provider Unavail Clint Tovar [facility] [phone] REASON FOR VISIT RIGHT WRIST PAIN, RIGHT WRIST CONTUSION Encounters Encounter Location Date Provider Diagnosis [facility] Office [address] [place] [address] [place] [address] 10/11/2024 Clint Aden Plan Of Treatment No Information Progress Notes * NYA REDMONDDOB:1955 ([age] yo F)Acc No.[id number]:10/11/2024 Patient:?NYA REDMOND :?Clint Aden MDDOB:1955???Age:69 Y ???Sex:FemaleDate:10/11/2024Phone:[phone]:[address] [place], [place]Vqj:Norma Tapia M.D. Subjective: * Chief Complaints: * 1 . RIGHT WRIST PAIN, RIGHT WRIST CONTUSION. * Medical History: Objective: * Vitals: Assessment: Plan: * Treatment: Forms: * Images: * Electronic signature of Clint Aden MD on 04/06/2025 at 12:50 PM ESTSign off status: Pending * Provider: Augusto Aden MD Date: 0 10/11/2024 Generated for Printing/Faxing/eTransmitting on:?04/06/2025 12:50 PM EST
--- OUTSIDE RECORDS SUMMARY | 2025-04-06 12:50 | XMS_ITS | Clinical Summary ---
Author Organization [facility] Address [address] [place] [address] Phone Care Team Providers Care Data Entry Analyst Name Role Phone Norma Tapia MD Primary Care Provider [phone] Daphne Ngo MD Unavailable Allergies Active AllergyReactionsCriticalityNoted QvytXkakqhftNzglllrqNhxjjxb06/23/2014 Medications MedicationSigDispense QuantityRefillsLast FilledStart DateEnd DateStatus omeprazole [...] Active Problems ProblemNoted DateDiagnosed DateBMI 38.0-38.9,adult06/10/2024Never smoked opjwvocxxb74/26/2024Obstructive sleep apnea syndrome in adult02/22/2023ICD (implantable cardioverter-defibrillator) in place02/22/20230858Tomijrb08/21/2023 Kqwumok1502/22/2023hronic systolic congestive heart arcxmgm2602/22/2023 Luycpvynjirlbk23/21/2023 Resolved Problems ProblemNoted DateDiagnosed DateResolved DateEncounter for medication review and vpdifqokti06Encounter to discuss treatment drpavjo6508/29/2023 5Class 2 obesity without serious comorbidity with [...] InformationValueDate RecordedSex Assigned at BirthNot on fileLegal HisXsjrhg41/26/2022 6:45 PM ESTGender Identity Not on fileSexual OrientationNot on file Last Filed Vital Signs Vital SignReadingTime TakenCommentsBlood Yzhbuyrl024/70010/06/2024 10:07 AM EDT Doutn9193/04/2025 10:07 AM AFRTojcdecimur12.1 ??C (97 ??F)08/09/2021 3:58 PM EDT Respiratory Lkme7628 9:42 AM EDTOxygen Saturation--Inhaled Oxygen Concentration--Dywrqz22.5 kg (195 lb)10/06/2024 10:07 AM DESVdgqbl414.4 cm (5') 10/06/2024 10:07 AM EDTBody Mass Index38.0810/06/2024 10:07 AM EDT Plan of Treatment DateTypeDepartmentCare Team (Latest Contact Info)Wohsdrepvpw94/14/2026 10:10 AM ESTOffice Visit [place] [address] [facility] [address] [place] [id number] Shan Boswell MD [address] [facility] [address] [place] [address] Health MaintenanceDue DateLast DoneCommentsCT Kbvmouxmzglw31/31/1955Colonoscopy 1954olorectal Cancer Dzjstaadc64/31/1955FIT-DNA (Cologuard)1955FIT 1954Lipid Panel1954Medicare Annual Wellness Visit (AWV)1955 Izhkrmrxfwwfa56/31/1955MMR Vaccines (1 of 1 - Standard series)10/03/1955 Hepatitis C Lmpvsjums93/31/1973Pneumococcal Vaccine (1 of 2 - PCV)1973 Edmunilpv05/31/1995RSV High Risk: (Elderly (60+) or Population) (1 - Risk 50-74 years 1-dose series)2004Zoster Vaccines (1 of 2)2004Bone Density Scan10/03/20191255Rjiudgadzlcbwz04/21/202407/, 11/22/2022, 12/15/2020, Additional history existsCreatinine Level08/28/965468/, 08/02/2021, 1Diabetes Ovhzboiix51/26/911917/, 08/02/2021 Potassium Level08/28/659342/, 08/02/2021, 08/01/2020Influenza Vaccine (#1)2024OVID-19 Vaccine ( - [...] topic Procedures Procedure NamePriorityDate/TimeAssociated DiagnosisCommentsBASIC METABOLIC PANEL Llrjwew8008/29/2023 9:44 AM EDT Chronic systolic congestive heart failure (Multi) GIJEWKXAVENUBQ79/21/2023 11:17 AM EDT from Last 3 Months or Most Recently Relevant to Health Maintenance Results * (ABNORMAL) Basic metabolic panel (08/29/2023 9:44 AM EDT)ComponentValueRef RangeTest MethodAnalysis TimePerformed AtPathologist HvxqwynhpTvfmjjr417(H)74 - 99 mg/dL LAB CHEMISTRY METHOD 08/29/2023 12:[address] [facility] YHXXjyphx329968 - 145 mmol/L LAB CHEMISTRY METHOD 08/29/2023 12:[address] [facility] LABPotassium4.43.5 - 5.3 mmol/L LAB CHEMISTRY METHOD 08/29/2023 12:[address] [facility] BOAAqrvhsze58934 - 107 mmol/L LAB CHEMISTRY METHOD 08/29/2023 12:[address] [facility] IGPOqbyhxtbeky3877 - 32 mmol/L LAB CHEMISTRY METHOD 08/29/2023 12:[address] [facility] LABAnion Scs2902 - 20 mmol/L LAB CHEMISTRY METHOD 08/29/2023 12:[address] [facility] LABUrea Wchdxsga151 - 23 mg/dL LAB CHEMISTRY METHOD 08/29/2023 12:[address] [facility] LABCreatinine0.750.50 - 1.05 mg/dL LAB CHEMISTRY METHOD 08/29/2023 12:[address] [facility] DHCaTPN84>60 mL/min/1.73m*2 LAB CHEMISTRY METHOD 08/29/2023 12:[address] [facility] LABComment: Calculations of estimated GFR are performed using the 2020 CKD-EPI Study Refit equation without therace variable for the IDMS-Traceable creatinine methods. https://jasn.asnjournals.org/content/early/ASN.3434331565 Calcium9.58.6 - 10.3 mg/dL LAB CHEMISTRY METHOD 08/29/2023 12:[address] [facility] LABSpecimen (Source)Anatomical Location / LateralityCollection Method / VolumeCollection TimeReceived TimeBlood Venous blood specimen / UnknownVenipuncture / Nvlmxle5708/29/2023 9:44 AM EDT 08/29/2023 9:45 AM EDT Narrative Authorizing ProviderResult TypeResult StatusTraci E Joslyn MAP CLERK-CNPLAB BLOOD ORDERABLESFinal ResultPerforming OrganizationAddressCity/State/ZIP Code Phone Number [facility] [address] [id number] * Echocardiogram (11/22/2022 11:17 AM EDT)Specimen (Source)Anatomical Location / LateralityCollection Method / VolumeCollection TimeReceived Time11/22/2022 11:17 AM EDT Narrative SYNGO - 11/22/2022 1:01 PM EDT [address], [place] [address] TRANSTHORACIC ECHOCARDIOGRAM REPORT Patient Name: ? NYA REDMOND ?? Reading Physician: ??[id number] Shan Boswell MD, [facility] Study Date: ? 11/22/2022 ?Referring ? SHAN BOSWELL Physician: MRN/PID: ?[id number] ? PCP: ?Norma Tapia Accession/Order#: [id number] Department ?[facility] Location: Date of : ?1955 ?Fellow: Gender: ? F ?Nurse: Admit Date: ?Tool And Die Designer: ?Ashlyn Cam RDCS, RVT Height: ? 152.40 cm ?CC Report to: Weight: ? 91.17 kg ? Study Type: ? Echocardiogram BSA: ?1.87 m2 Blood Pressure: 134 /62 mmHg Diagnosis/ICD: I50.22-Chronic systolic (congestive) heart failure (CHF); I42.9-Cardiomyopathy, unspecified Indication: ?AICD, WALDEMAR, Obesity Procedure/CPT: Echo Complete w Full Doppler-[id number] Study Detail: The following Echo studies were [...] m/s ??(0.6-0.9m/s) PV Max PG: ??2.3 mmHg [id number] Shan Boswell MD, [facility] Electronically signed on 11/22/2022 at 1:01:56 PM Final Procedure Note Shan Boswell MD - 11/22/[address], Suite [facility][note 3], [place] [address] TRANSTHORACIC ECHOCARDIOGRAM REPORT Patient Name: NYA Hayward Physician: [id number] Shan Conner, [facility] Study Date: 11/22/2022 Referring SHAN BOSWELL Physician: MRN/PID: [id number] PCP: Norma Tapia Accession/Order#: [id number] [facility] Location: Date of : 1955 Fellow: Gender: F Nurse: Admit Date: Tool And Die Designer: Ashlyn Cam RDCS,RVT Height: 152.40 cm CC Report to: Weight: 91.17 kg Study Type: Echocardiogram BSA: 1.87 m2 Blood Pressure: 134 /62 mmHg Diagnosis/ICD: I50.22-Chronic systolic (congestive) heart failure (CHF); I42.9-Cardiomyopathy, unspecified Indication: AICD, WALDEMAR, Obesity Procedure/CPT: Echo Complete w Full Doppler-[id number] Study Detail: The following Echo studies were [...] 0.8 m/s (0.6-0.9m/s) PV Max P.3 mmHg [id number] Shan Boswell MD, [facility] Electronically signed on 11/22/2022 at 1:01:56 PM Final Authorizing ProviderResult TypeResult StatusHachito Boswell [facility] ECHO PROCEDURESFinal ResultPerforming OrganizationAddressCity/State/ZIP CodePhone Number SYNGO from Last 3 Months or Most Recently Relevant to Health Maintenance Insurance Care Teams Team MemberRelationshipSpecialtyStart DateEnd Norma Tapia MD PCP - GeneralFamily Bxwiifiy17/13/23 Daphne Ngo MD [address] [facility] [address], [address] [place] [address] TlajqzbssakuAdxrovfmphsyvonzu90/20/24
--- OUTSIDE RECORDS SUMMARY | 2025-04-06 12:50 | XMS_ITS | Clinical Summary ---
Author Organization [facility] Address [address] [facility], [address] [place] [address] Care Team Providers Care Indigo Mixer Name Role Phone Unavailable Primary Care Provider Unavailabl e Allergies No known active allergies Medications MedicationSigDispense QuantityRefillsLast FilledStart DateEnd DateStatus aspirin 81 MG tablet Take 81 mg by mouth daily.Active isosorbide mononitrate (IMDUR) 30 MG CR tablet Take 30 mg by mouth daily.Active metoprolol (LOPRESSOR) 25 MG tablet Take 25 mg by mouth 2 times daily.Active Active Problems ProblemNoted DateDiagnosed DateUnstable azifub9106/18/2013bnormal stress test 06/18/2013 Social History Tobacco UseTypesPacks/DayYears UsedDateSmoking Tobacco: NeverAlcohol UseStandard Drinks/WeekCommentsNo0 (1 standard drink = 0.6 oz pure alcohol)Comments UnknownSex and Gender InformationValueDate RecordedSex Assigned at BirthNot on fileLegal EjbXffgqq41/07/2014 12:06 PM ESTGender IdentityNot on fileSexual OrientationNot on file Last Filed Vital Signs Vital SignReadingTime TakenCommentsBlood Uzhpkxts658/35006/18/2013 9:45 AM EST Nouyi2381/14/2014 9:45 AM OYFDxlktyymqxd37.7 ??C (98.1 ??F)06/18/2013 7:21 AM ESTRespiratory Zxqo237006/18/2013 9:45 AM ESTOxygen Mjgueprrna17%06/18/2013 9:00 AM ESTInhaled Oxygen Concentration--Ecfnze30.4 kg (197 lb)06/18/2013 7:21 AM EST Cvhdhb687.3 cm (4' 10 )06/18/2013 7:21 AM ESTBody Mass Index41.17006/18/2013 7:21 AM EST Plan of Treatment Not on file Advance Directives * Full Code (Latest Code Status on File) Date ActivatedDate InactivatedComments06/18/2013 9:00 AM06/18/2013 5:49 PM * Full Code Date ActivatedDate InactivatedComments06/18/2013 7:18 AM06/18/2013 9:00 AM
--- OUTSIDE RECORDS SUMMARY | 2025-04-06 12:50 | XMS_ITS | Clinical Summary ---
Author Organization [facility] Address [address] [place], [place] [address] Care Team Providers Care Django Developer Name Role Phone Norma Tapia MD Primary Care Provider [phone] Allergies Active AllergyReactionsCriticalityNoted DateCommentsAdhesive Tape (Rosins) Ofnqwnv6510/25/2013 Medications MedicationSigDispense QuantityRefillsLast FilledStart DateEnd DateStatus Omeprazole [...] ProblemNoted DateDiagnosed DateICD (implantable cardioverter-defibrillator), biventricular, in situ07/07/20154797Pxegpoz55/04/2016Sleep apnea02/23/2015IRB # 15- 345: Wrap-It Study01/26/2015CHF (congestive [...] number is lower riskNot on file04/12/2020Data from: https://www.neighborhoodatlas.medicine.[facility]/. 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 Start DateJob End DateworkerNot on fileNot on fileNot on file Last Filed Vital Signs Vital SignReadingTime TakenCommentsBlood Gxuvuvsq517/52006/03/2017 12:53 PM EST Ocnts407506/03/2017 12:53 PM WLFLzmbcggclgx53.2 ??C (97.1 ??F)08/24/2015 10:36 AM EDTRespiratory Bwjo587806/03/2017 12:53 PM ESTOxygen Szfivuljhk83%06/03/2017 12:53 PM ESTInhaled Oxygen Concentration--Uygdwf79.7 kg (200 lb)06/03/2017 12:53 PM URPMksjbj109.4 cm (5')06/03/2017 12:53 PM ESTBody Mass Index39.0606/03/2017 12:53 PM EST Plan of Treatment Health MaintenanceDue DateLast DoneCommentsAnxiety Viecbvkgi11/31/1973Depression Axvojnsim98/31/1973Hepatitis C Hjamjxqdc00/31/1973DTaP,Tdap,Td Vaccine (1 - Tdap)1973Mammogram Lltvxulvc62/31/1995CT Yuhbrpsvnlbu15/31/2000Cologuard (FIT-DNA)10/03/19997981Xeuzbtfawtl01/31/2000Colorectal Cancer Emxzkcpni58/31/2000 Fecal Occult Blood10/03/1999Lipid Acoenazyq89/31/5170Nqeudbxancyek66/31/2000 Pneumococcal Vaccine: 50+ (1 of 1 - PCV)2004Shingrix Vaccine (1 of 2) 2004Diabetes Aljtegxtd63Bone Density Fahanrjcg69/31/2020 Advance Directive Rcksqsavcr77/01/2025ovid-19 Vaccine (2024- season) 2025Influenza Vaccine (#1)2025RSV Vaccine (1 - 1-dose 75+ series) 2029 Medical Devices ImplantedTypeAreaManufacturerDevice IdentifierShelf Expiration DateModel / Serial / [id number] Viva Quad S [id number] Implanted:01/25/2015 (Quantity not on file)ICDMEDTRONIC [id number] Viva Quad S GRANULATING BLENDER-D / [id number] / Procedures Procedure NamePriorityDate/TimeAssociated DiagnosisCommentsBASIC METABOLIC PANEL STAT01/25/2015 12:00 PM EDT Chronic systolic congestive heart failure (HCC) from Last 3 Months or Most Recently Relevant to Health Maintenance Results * (ABNORMAL) BASIC METABOLIC PNL (01/25/2015 12:00 PM EDT)ComponentValueRef RangeTest MethodAnalysis TimePerformed AtPathologist PchgyvtowBolimjx93152 - 100 mg/dL01/25/2015 1:38 [address] [facility]TC[facility] GAAJHKLAMMEXA86(H)8 - 25 mg/dL01/25/2015 1:38 PM [facility]TCB[facility] LABORATORYCreatinine1.160.70 - 1.40 mg/dL01/25/2015 1:38 PM EDTCLEVEL[facility] VFZNOLRJQHVkpsru148414 - 148 mmol/L01/25/2015 1:38 PM EDTCBETHESDA [facility] LABORATORYPotassium Unable to assay. Specimen significantly hemolyzed.3.5 - 5.0 mmol/L01/25/2015 1:38 [address] EDTCLEVEL[facility] VODNTIFAGENwoegfih00099 - 110 mmol/L 01/25/2015 1:38 PM [facility]TC[facility] JYFYWBIODDQP39337 - 32 mmol/L 01/25/2015 1:38 PM EDTCBETH[facility] LABORATORYAnion Gap70 - 15 mmol/L 01/25/2015 1:38 PM EDTCBETH[facility] LABORATORYCalcium9.58.5 - 10.5 mg/dL01/25/2015 1:38 PM EDTCLEVELAND CL[facility]IC [facility]IN LABORATORYeGFR- Jltmguvd8335/23/2015 1:38 PM [facility] LABORATORYeGFR-All Other Races48.01/25/2015 1:38 PM [facility] LABORATORYComment: eGFR (Estimated GFR) Units [...] StatusNathalie Lux MDLABORATORYFinal ResultPerforming OrganizationAddressCity/State/ZIP CodePhone Number [facility] [address] [place] [address] from Last 3 Months or Most Recently Relevant to Health Maintenance Insurance Advance Directives TypeDate RecordedPatient RepresentativeExplanationAdvance Directive(s)01/25/2015 10:56 AM Care Teams Team MemberRelationshipSpecialtyStart DateEnd Date Norma Tapia MD [address] [place] [address] PCP - GeneralFamily Medicine10/24/14
--- OUTSIDE RECORDS SUMMARY | 2025-04-06 12:50 | XMS_ITS | Patient Health Record ---
Author Organization [facility] Address [address], [place] [address] Care Team Providers Care Infection Control Rn Name Role Phone Saloni Rowan Unavailable [phone] Allergies Allergen (clinical drug ingredient) Drug/Non Drug [...] Status Risk Notes Problem Obese class II ([id number]) BMI 35.0 -35.9,adult (Z68.35) Activeconfirmed Plan Of Treatment No Information Insurance Providers Payer Name Payer Address Payer Phone Subscriber Number Group Number Insured Name Patient Relationship to Insured Coverage Start Date Coverage End Date [facility] [address] [place] [address] [id number] [facility] Chantelle Bell Self - patient is the insured 3
--- OUTSIDE RECORDS SUMMARY | 2025-04-06 12:50 | XMS_ITS | Clinical Summary ---
Author Organization [employer] tem Address [id number] [address] [place] [address] Care Team Providers Care Slunk Skinner Name Role Phone Norma Tapia MD Primary Care Provider [phone] Allergies Active AllergyReactionsCriticalityNoted DateCommentsAdhesiveOther (See Comments) 10/25/2013 [...] Problems ProblemNoted DateDiagnosed DateAbnormal gait02/26/2022ervical pain02/26/2022 Morbid rzgvijz1302/26/2022aresthesia of right upper skdxkosyo98/25/2022Lumbar qccpqaomjph13/25/2022isorder of yrwpgg2802/26/2022Lumbar cqttgccokenje03/25/2022 ICD (implantable cardioverter-defibrillator), biventricular, in situ07/07/2015 Sleep apnea02/23/2015cute renal failure fycuzndn09/02/8769Uzig49/02/2014enign essential nfjuqsctdwzz89/02/2014CHF (congestive heart failure)10/11/2013bnormal stress test06/18/2013Unstable ezrahp4706/18/2013 Social History Tobacco UseTypesPacks/DayYears UsedDateSmoking Tobacco: NeverSmokeless Tobacco: Never Tobacco Cessation:Counseling Given: Not Answered Alcohol UseStandard Drinks/WeekCommentsNever0 (1 standard drink = 0.6 oz pure alcohol)AUDIT-CAnswerDate RecordedFrequency of Alcohol ConsumptionNever 08/12/2019Average Number of DrinksNot on file08/12/2019Frequency of Binge DrinkingNot on file08/12/2019PHQ-2AnswerDate RecordedTotal Deyia940 ChildcareAnswerDate NzjdqdhnZzorjlmamUnkrtdo02/06/2019EmploymentAnswerDate YkrfjlouBzzhbucdumAwsqwpg75/06/2019Purpose - LifeAnswerDate RecordedPurpose and direction in poiaZacygil99/11/2021CommentsNoSex and Gender Information ValueDate RecordedSex Assigned at BirthNot on fileLegal PbjMroeoc27/06/2015 11:22 AM EDTGender IdentityNot on fileSexual OrientationNot on file Last Filed Vital Signs Vital SignReadingTime TakenCommentsBlood Jojmonoy083/7802/26/2022 2:51 PM EDT Lywpl634202/26/2022 2:51 PM REAJoinjiktgbm99.6 ??C (97.8 ??F)08/12/2019 12:15 PM EDTRespiratory Kmev6611 2:51 PM EDTOxygen Vdnbdkpufp95%08/12/2019 1:51 PM EDTInhaled Oxygen Concentration--Tgvoth32.9 kg (196 lb)02/26/2022 2:51 PM EDT Jidqka735.4 cm (5')02/26/2022 2:51 PM EDTBody Mass Index38.281 2:51 PM EDT Plan of Treatment Health MaintenanceDue DateLast DoneCommentsStatin Use: Kqrmbaabpgpfzp36/31/1955 Depression Rbkdgwojn45/31/1967Tobacco Ibwanowkv84/31/1967Adult BMI Screening 1972Zoster (Shingles) Vaccine (1 of 2)2004RSV ( or age 60+ yrs) (1 - Risk 60-74 years 1-dose series)2014Fall Risk Dbkmnazpy14/31/2020 Influenza Qygljuf5201/03/2025DTaP,Tdap and Td Vaccines (2 - Td or Tdap)12/24/2033 12/25/2023 Medical Devices Not on file Insurance Care Teams Team MemberRelationshipSpecialtyStart DateEnd Norma Tapia MD [address] [place] [address] PCP - GeneralFamily Medicine08/09/19
--- OUTSIDE RECORDS SUMMARY | 2025-04-06 12:51 | XMS_ITS | Clinical Summary ---
Author Organization [facility] Address [address] [place] [address] Care Team Providers Care Lead Process Engineer Name Role Phone Unavailable Primary Care Provider Unavailabl e Social History Tobacco UseTypesPacks/DayYears UsedDateSmoking Tobacco: Never Assessed CommentsUnknownSex and Gender InformationValueDate RecordedSex Assigned at Not on fileLegal GhkOhozpt17/15/2023 6:47 PM EDTGender IdentityNot on fileSexual OrientationNot on file Last Filed Vital Signs Vital SignReadingTime TakenCommentsBlood Mmzvgnri894/7005/ 12:00 PM EDT Pulse--Temperature--Respiratory Rate--Oxygen Saturation--Inhaled Oxygen Concentration--Izgwkx55.6 kg (202 lb)02/28/2021 12:00 PM SSQIozfzx456.4 cm (5') 02/28/2021 12:00 PM EDTBody Mass Index39.451 12:00 PM EDT Plan of Treatment Not on file
--- OUTSIDE RECORDS SUMMARY | 2025-04-06 12:51 | XMS_ITS | Patient Health Record ---
Author Organization 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 Primary Care Provider Unavail able AdenClint seay Unavailable [phone] Chloe Jacobo Unavailable Allergies No Known Allergies [...] distal end of right radius, initial encounter (S52.599T) Referral Organization [facility] Referring Provider First Name Chloe Referring Provider Last Name Odalis Referring Provider Speciality Physician Healthcare Business Analyst Referred Organization [facility] Central Scheduling Referred Address [address] [place], [place],[address],US Procedure 1 MRI Joint Upper Ext w/o Dye ([id number]) General Notes Blanca Patino 02/2025 03:17:53 PM > PER NATACHA PRIOR AUTH HAS BEEN APPROVED FROM 07/12/2024-10/09/2024 AUTH # [id number], AUTH IN CHART. FAXED TO Laina KIRKLAND Monica 07/12/2024 03:24:17 PM > FAXED ORDER, Tomjenn Fela 07/16/2024 10:31:32 AM >Change location to [facility] in [place]. Patient has a defibrillator and a pacemaker. Unable to have MRI at [place]. Faxed order to [facility]. They will set up her cardiac clearance and the MRI., Blanca Patino 07/16/2024 11:02:17 AM > AUTH HAS BEEN UPDATED TO [facility] AND FAXED OVER WELL, RooseveltdavidFela 07/20/2024 05:48:10 PM >[facility] is working on getting patient scheduled Referral Priority Routine Social History Tobacco Use: Social History Observation Description Date Details (start date - stop date) Never Smoker NA - NA AUDIT-C (Standard) Question Answer Notes Did you have a drink containing alcohol in the p ast year? No Boznbf7ZholyxpiaezpwgKjulstqpDmgxicw Control (Standard) Question Answer Notes Tobacco use: Nonsmoker Problems Problem Type SNOMED Code ICD Code Onset Dates Problem Status W/U Status Risk Notes Problem Contusion of right e lbow (06116330149857406) Contusion of right elbow, initial encounter (S50.01XA) ActiveconfirmedProblemAbrasion, elbow area (440803034)Abrasion of right elbow, initial encounter (S50.311A)ActiveconfirmedProblemClosed fracture radial styloid (353151632)Nondisplaced fracture of right radial styloid process, subsequent encounter for closed fracture with routine healing (S52.514D)Activeconfirmed ProblemSprain of right wrist (12074202714191321)Sprain of right wrist, initial encounter (S63.501A)ActiveconfirmedProblemTrips over objects (W18.40XA)Active confirmed Vital Signs Height 5'0 in 07/19/2024 Wlqbyg837 lbs5BMI37.69007/19/2024 Encounters Encounter Location Date Provider Diagnosis [facility] [address] [place] [address] [place] [address] 08/09/2024 [facility] Acute pain of right wrist M25.531 and Contusion of right wrist, initial encounter S60.211A [facility] [address] [facility] [place] [address] 06/07/2024 [facility] Contusion of right elbow, initial encounter S50.01XA ; Abrasion of right elbow, initial encounter S50.311A ; Sprain of right wrist, initial encounter S63.501A and Trips over objects W18.40XA [facility] [facility] [address] [facility] [place] [address] 06/14/2024 Chloe [facility] Nondisplaced fracture of right radial styloid process, initial encounter for closed fracture S52.514A and Sprain of right wrist, initial encounter S63.501A [facility] [address] [facility] [place] [address] 06/21/2024 Chloe [facility] Other closed fracture of distal end of right radius, initial encounter S52.591A [facility] [place] [facility] [address] [facility] [place] [address] 06/25/2024 Chloe [facility] Nondisplaced fracture of right radial styloid process, subsequent encounter for closed fracture with routine healing S52.514D [facility] [place] [facility] [address] [facility] [place] [address] 06/28/2024 Chloe [facility] Other closed fracture of distal end of right radius, initial encounter S52.591A [facility] [facility] [address] [facility] [place] [address] 07/12/2024 Clint Aedn Nondisplaced fracture of right radial styloid process, subsequent encounter for closed fracture with routine healing S52.514D [facility] [facility] [address] [facility] [place] [address] 07/19/2024 Chloe [facility] Nondisplaced fracture of right radial styloid process, subsequent encounter for closed fracture with routine healing S52.514D [facility] [address] [place] [address], [place] [address] 06/08/2024 Chloe [facility] Other closed fracture of distal end of right radius, initial encounter S52.591A [facility] [address] [place] [address] 06/11/2024 [facility] Other closed fracture of distal end of [...] elbow, initial encounter (ICD-10 - S50.01XA)Right elbow abrasion/fetsichyf30/03/2025brasion of right elbow, initial encounter (ICD-10 - S50.311A)Right elbow abrasion/ozsgyvuyt32/03/2025Sprain of right wrist, initial encounter (ICD-10 - [...] 2 months as she does live in [place] part-time with her significant other. Right EPL [...] to remove splint and repeat x-rays.Right elbow abrasion/pwhgdylfb35/10/2025 OtherPatient swelling has decreased somewhat and I [...] her fingers and if okay with her PCP/balloon dipper she can take Aleve. We will see [...] MRI : Wrist W/O Contrast Right - [id number] 0 07/12/2024 [facility]- PT/OT EVAL AND TREAT 3X/WEEK FOR 6 WEEKS 08/09/2024 Insurance Providers Payer Name Payer Address Payer Phone Subscriber Number Group Number Insured Name Patient Relationship to Insured Coverage Start Date Coverage End Date Medicare [place] [employer] [address] [place] [address] [id number] Radha REDMOND - [place] the [place] Dept [place] [address] [place] [id number], ROSASelf - patient is the insured
--- OUTSIDE RECORDS SUMMARY | 2025-04-06 12:55 | XMS_ITS | CCD ---
Author Organization [facility] Care Team Providers Care Tie Up Worker Name Role Phone Hampole, Haile V Unavailable Unavailable Hampole, Haile V Unavailable Unavailable Hampole, Haile V Unavailable Unavailable ANUPAM PEREIRA~[phone] UNKNOWN Unavailable Unavailable Harsh Lange Unavailable Unavailable Harsh Lange Unavailable Unavailable Anupam Pereira Unavailable Unavailable Unavailable MD Anupam Pereira Primary Care Provider MD Daphne Mayes Attending Provider [phone] Unavailable Unavailable MD Anupam Pereira Primary [...] PEREIRA, DR ANUPAM Kurtz Primary Care Unavailable RIVING ., DR JANICE Casas Attending Unavailable IRVING [...] Unavailable PEREIRA, DR ANUPAM Kurtz Admitting Unavailable [place], DR CECY Wade Consulting Unavailable ZIEBER, DR [...] Care Provider MD Daphne Mayes Attending Provider [phone] Randall, Dr. Anupam Tam Primary Care [...] Anupam Pereira MD Primary Care Provider [phone] Maren Aden Attending Provider Lupe Rosado MD Attending Provider [phone] LUPE ROSADO Attending Unavailable ROSADO, TORREZ M Referring Unavailable ANUPAM PEREIRA Primary Care Unavailable ROSADOLUPE M Attending Unavailable ROSADO, TORREZ M Referring Unavailable ANUPAM PEREIRA Primary Care Unavailable ROSADOLUPE M Attending Unavailable ROSADO, TORREZ M Referring Unavailable ANUPAM PEREIRA Primary Care Unavailable Daphne Mayes MD Unavailable Anupam Pereira MD Primary Care Provider [phone] Lupe Rosado MD Other Provider Chasity Harper MD Attending Provider Anupam Pereira MD Attending Provider [phone] Anupam Pereira MD Primary Care Provider Anupam Pereira MD Attending Provider Lupe Rosado MD Other Provider [phone] Chasity Harper MD Attending Provider Lupe Rosado [...] source)Adhesive Tape; Translations: [Tape]Propensity to adverse reactions (disorder)[facility] Repository (16 sources)DesonideDrug Qavonhx93-98-8962Eltbkxp, RashThe [facility] Rep[facility] (1 source)LatexDrug allergy (disorder)[facility] Rep[facility] (1 source)patient allergy list reviewed by nurse or physiciaPropensity to adverse tjqnwuelb28-24-5525Cinjhbl:DoneSearchMe Other (1 source)Allergies ReconciledPropensity to adverse reactionsUnkW&W CommunicationsFulton State Hospital Hypecal Other (10 sources)Adhesive agent; Translations: [ADHESIVE]Drug Vikfuscissx94-24-1137 [facility] (1 source)Adhesive TapeDrug allergy (disorder)14-54-1465TxeocppcyOhio State University [facility] Repository Medications Current Medications MedicationDrug Class(es)DatesSig (Normalized)Sig (Original)amoxicillin 875 mg / clavulanate 125 mg oral tablet (2 sources)Penicillin-class AntibacterialStart: 18-03-2898owzh 1 tablet by mouth every twelve hoursAmoxicillin-Pot Clavulanate 875-125 MG 1 tablet Orally every 12 hrs for 10 day(s) Jan, Activebaclofen 10 mg oral tablet (3 sources)gamma-Aminobutyric Acid-ergic Agonisttake 1 tablet by mouth every twelve hoursBaclofen 10 MG 1 tablet as needed Orally Twice a day Active benzonatate 200 mg oral capsule (4 sources)Non-narcotic AntitussiveStart: 54-17-5998jdox 1 capsule by mouth every eight hoursBenzonatate 200 MG 1 capsule Orally Three times a day for 10 day(s) May, ActiveStart: 69-45-8661loer 1 capsule by mouth every eight hoursBenzonatate 200 MG 1 capsule Orally Three times a day for 10 day(s) Dec, Activecefdinir 300 mg oral capsule (3 sources)Cephalosporin AntibacterialStart: 67-35-1725Udsczdro 300 MG as directed Orally bid for 7 May, ActiveStart: 89-48-2115Urxgfwle 300 MG as directed Orally bid for 7 days Dec, Activecodeine phosphate 2 mg/ml / guaiFENesin 20 mg/ml oral solution (2 sources)Opioid AgonistStart: 17-25-2162hjus 10 mL by mouth every four hours as neededguaiFENesin AC 100-10 MG/5ML 10 mL as needed Orally every 4 hrs for 7 days Dec, Activefurosemide 40 mg oral tablet (2 sources)Loop DiureticStart: 02-25-2023 End: 81-41-8520ypzkeaiqrl (Lasix) 40 mg tablet Indications: Chronic systolic [...] ActivemethylPREDNISolone 4 mg oral tablet (3 sources)CorticosteroidStart: 82-80-1941ruqmanSKXEYOHvnccj 4 MG as directed Orally for 6 days May, ActiveStart: 03-85-0357jjiivtYTWUCADtynpg 4 MG as directed Orally for 6 days Jan, ActivepredniSONE 20 mg oral tablet (6 sources)Start: 31-19-6385bepe 2 tablets by mouth every twenty-four hours predniSONE 20 MG 2 tablets Orally Once a day for 5 days May, Active Start: 35-82-3209euqe 2 tablets by mouth every twenty-four hourspredniSONE 20 MG 2 tablets Orally Once a day for 5 days Dec, Activesertraline 50 mg oral tablet (20 sources)Serotonin Reuptake InhibitorStart: 03-02-2024 End: 89-50-7265titu 1 tablet by mouth once dailyStart: 02-25-2024 End: 17-48-7619ogqh 1 tablet by mouth once dailySertraline 100 mg tablet Discontinued 0 .ROUTE .COMPLEX 90 0 February 25, 2024 2:49pm March 02, 2024 10:24am TAKE 1 TABLET BY MOUTH EVERY DAYStart: 06-20-2023 End: 88-86-6372vhic 1 tablet by mouth once dailySertraline 100 [...] 20 Active Completed/Discontinued Medications MedicationDrug Class(es)DatesSig (Normalized)Sig (Original)[id number] 200 actuat albuterol 0.09 mg/actuat metered dose inhaler (12 sources)beta2-Adrenergic AgonistStart: 06-20-2023 End: 90-35-4226jcas 1 puff(s) by inhalation every four to six hours as needed for wheezingAlbuterol Sulfate 90 mcg/actuation HFA aerosol inhaler Discontinued 2 PUFF INHALATION EVERY 4-6 HOURS as needed for shortness of breath or wheezing 6.7 June 20, 2023 12:00am December 2141:01pmStart: 06-20-2023 End: 43-14-4177ghhg 1 puff(s) by inhalation every four to six hoursAlbuterol Sulfate Discontinued 2 PUFF INHALATION EVERY 4-6 HOURS 6.7 June 20, 2023 1:00am December 22, 2023 2:01pmStart: 36-07-6392ygpp 1 puff(s) by inhalation every four to six hoursAlbuterol Sulfate Active 2 PUFF INHALATION EVERY 4-6 HOURS 6.7 June 20, 2023 1:00amStart: 86-74-0653fltm 2 puff(s) by inhalation every four hours as neededAlbuterol Sulfate HFA 108 (90 Base) MCG/ACT 2 puff Inhalation every 4 hrs prn Jan, ActiveStart: 93-05-8004jljm 2 puff(s) by inhalation every four hours as neededAlbuterol Sulfate HFA 108 (90 Base) MCG/ACT 2 puff Inhalation every 4 hrs prn 07 Jan, 2023 ActiveAlbuterol Sulfate HFA 108 (90 Base) MCG/ACT INHALE 2 PUFFS BY MOUTH EVERY 4 HOURS NEEDED FOR 30 DAYS for 30 ActiveAlbuterol Sulfate 90 mcg/actuation HFA aerosol inhaler (7 sources)Start: 06-20-2023 End: 91-10-0236ohcy 1 puff(s) by inhalation every four to six hours as needed for wheezingAlbuterol Sulfate 90 mcg/actuation HFA aerosol inhaler Discontinued 2 PUFF INHALATION EVERY 4-6 HOURS as needed for shortness of breath or wheezing 6.7 June 20, 2023 1:00am December 22, 2023 2:01pmStart: 06-20-2023 End: 83-54-6376hfbc 1 puff(s) by inhalation every four to six hours as needed for wheezingAlbuterol Sulfate 90 mcg/actuation HFA aerosol inhaler Discontinued 2 PUFF INHALATION EVERY 4-6 HOURS as needed for shortness of breath or wheezing 6.7 June 20, 2023 12:00am December 22, 2023 1:01pmazithromycin 250 mg oral tablet (3 sources)Macrolide AntimicrobialStart: 12-31-2024 End: 57-63-4437Sbgodpklaosd 250 mg tablet Discontinued 0 PO .COMPLEX 6 0 December 30, 2024 11:00pm February 04, 2025 9:20am For 250 mg dose pack: take 500 mg today (day 1), then 250 mg for 4 days (days 2-5) POcarvedilol 3.125 mg oral tablet (20 sources)alpha-Adrenergic Roxy, beta-Adrenergic BlockerStart: 11-18-2023 End: 55-41-0802hnez 1 tablet by mouth twice dailyCarvedilol 3.125 mg tablet Discontinued 3.125 MG PO Twice daily December 21, 2023 11:00pm July 26, 2024 7:50amStart: 04-03-2021 End: 08-58-0647jmiv 1 tablet by mouth twice dailycarvedilol (Coreg) [...] capsule (13 sources)Provitamin D2 CompoundStart: 10-09-2022 End: 74-28-9214sexg 1 capsule by mouth once dailyVitamin D (Ergocalciferol) 50 MCG (2000 UT) Oral Capsule one daily OTC Quantity: 90 Refills: 0 Ordered: 09-Oct-2022 Lupe Rosado MD Start : 09-Oct-2022 ActiveStart: 89-18-2937qydo 1 capsule by mouth every weekVitamin D (Ergocalciferol) 1.25 MG (68070 UT) 1 capsule Orally weekly for 90 day(s) May, Activefebuxostat 80 mg oral tablet (5 sources)Xanthine Oxidase Inhibitortake 1 tablet by mouth once dailyUloric 80 MG TAKE 1 TABLET BY MOUTH EVERY DAY Oral for 90 Not-Takinglisinopril 10 mg oral tablet (5 sources)Angiotensin Converting Enzyme Inhibitortake 1 tablet by mouth once dailyLisinopril 10 MG TAKE 1 TABLET EVERY DAY Oral for 90 Not-Wyshol15 hr metFORMIN hydrochloride 500 mg extended release oral tablet (18 sources)BiguanideStart: 07-26-2024 End: 35-58-7891Uaksbwtwc 500 mg tablet extended release 24 hr Discontinued 1000 MG PO Daily 60 July 26, 2024 10:35am February 04, 2025 9:20amStart: 82-71-6542ilzp 1 tablet by mouth twice dailymetFORMIN XR 500 mg 24 hr tablet Take 1 tablet (500 mg) by mouth 2 times daily (morning and late afternoon). 05/31/2024 ActiveStart: 05-31-2024 End: 68-01-9949wsjt 1 tablet by mouth once daily, then [...] mg oral tablet (14 sources)Start: 06-10-2024 End: 85-13-9476mzcp 1 tablet by mouth once dailyNebivolol 2.5 mg tablet Discontinued 2.5 MG PO Daily June 14, 2024 12:00am December 31, 2024 1 2:21pmNirmatrelvir-Ritonavir (4 sources)Start: 12-22-2023 End: 74-09-4698Tnmfzzlnffwk-Ritonavir (Paxlovid) 300 mg (150 mg x 2)-100 mg tablets,dose pack Discontinued 0 PO .COMPLEX 30 December 21, 2023 11:00pm March 02, 2024 10:24am take TWO 150 mg tablets of nirmatrelvir with ONE 100 mg tablet of ritonavir twice daily for 5 days POStart: 12-22-2023 End: 19-06-9942Lduuxbfkckfm-Ritonavir (Paxlovid) 300 mg (150 mg x 2)-100 mg tablets,dose pack Discontinued 0 PO .COMPLEX December 22, 2023 12:00am March 02, 2024 11:24am take TWO 150 mg tablets of nirmatrelvir with ONE 100 mg tablet of ritonavir twice daily for 5 days PONirmatrelvir-Ritonavir (Paxlovid) 300 mg (150 mg x 2)-100 mg tablets,dose pack (10 sources)Start: 12-22-2023 End: 37-97-8968Mexbosxjynev-Ritonavir (Paxlovid) 300 mg (150 mg x 2)-100 mg tablets,dose pack Discontinued 0 PO .COMPLEX December 21, 2023 11:00pm March 02, 2024 10:24am take TWO 150 mg tablets of nirmatrelvir with ONE 100 mg tablet of ritonavir twice daily for 5 days POStart: 12-22-2023 End: 71-03-5974Zznkxjpflufw-Ritonavir (Paxlovid) 300 mg (150 mg x 2)-100 mg tablets,dose pack Discontinued 0 PO .COMPLEX 30 December 22, 2023 12:00am March 02, 2024 11:24am take TWO 150 mg tablets of nirmatrelvir with ONE 100 mg tablet of ritonavir twice daily for 5 days POStart: 38-72-7078Hmmzfrhvkocy- Ritonavir (Paxlovid) 300 mg (150 mg x 2)-100 mg tablets,dose pack Active 0 PO .QQFYUBN71 December 22, 2023 12:00am take TWO 150 mg tablets of nirmatrelvir with ONE 100 mg tablet of ritonavir twice daily for 5 days POomeprazole 20 mg delayed release oral capsule (20 sources)Proton Pump InhibitorStart: 04-21-2024 End: 99-76-7491dmgt 1 capsule by mouth once dailyOmeprazole 20 mg capsule,delayed release(DR/EC) Discontinued 0 .ROUTE .COMPLEX July 060:42am November 11, 2024 3:20pm TAKE 1 CAPSULE BY MOUTH EVERY DAYStart: 12-22-2023 End: 37-97-8081cxnb 1 capsule by mouth once dailyOmeprazole 20 mg capsule,delayed release(DR/EC) Discontinued 20 MG PO Daily December 21, 2023 11:00pm April 21, 2024 10:49amOmeprazole 20 MG TK 2 CS PO QD Oral for Activesacubitril 49 mg / valsartan 51 mg oral tablet (20 sources)Angiotensin 2 Receptor BlockerStart: 10-09-2021 End: 38-68-0149hldg 1 tablet by mouth twice dailySacubitril-Valsartan (Entresto) [...] (14 sources)Angiotensin 2 Receptor BlockerStart: 06-10-2024 End: 91-84-4442gbal 1 tablet by mouth once dailyValsartan 80 mg tablet Discontinued 80 MG PO Daily June 14, 2024 12:00am December 31, 2024 12: 21pm Problems Active Problems Problem ClassificationProblemDateDocumented DateEpisodic/ChronicAbdominal pain (15 sources)Right upper quadrant pain; Translations: [Right upper quadrant pain] Onset: 14-93-8046JvibedwhNahhc bronchitis (2 sources)Acute bronchitis; Translations: [Acute bronchitis]Onset: 08-30-2014 EpisodicAnxiety disorders (14 sources)Generalized anxiety disorder; Translations: [Generalized anxiety disorder]Onset: 75-47-8975MfrluonMrkmohy dysrhythmias (12 sources)Atrial fibrillation; Translations: [Unspecified atrial fibrillation] Onset: 282025-32-1404DilfnftKekazmp obstructive pulmonary disease and bronchiectasis (20 sources)Bronchitis; Translations: [Bronchitis, not specified as acute or chronic]EpisodicConduction disorders (20 sources)Automatic implantable cardiac defibrillator in situ; Translations: [Automatic implantable cardiac defibrillator in situ]Onset: ChronicCongestive heart failure; nonhypertensive (20 sources)Chronic systolic heart failure; Translations: [Chronic systolic heart failure]Onset: 24-90-8841ZmswiyaTnzaaxbhtm and other anemia (5 sources)Anemia, unspecified; Translations: [ANEMIA UNSPECIFIED]Onset: 08-89-4944LycxifxkWunfhqgagm disorders (14 sources)Gastroesophageal reflux disease without esophagitis; Translations: [Gastro-esophageal reflux disease without esophagitis]ChronicEssential hypertension (15 sources)Essential hypertension; Translations: [Essential (primary) hypertension]Onset: 65-40-0286KdbutefGyeslvvxrmwkd symptoms and ill-defined conditions (18 sources)Increased frequency of urination; Translations: [Frequency of micturition]23-16-1516DscoaejwTeun and other crystal arthropathies (20 sources)Articular gout; Translations: [Gout, unspecified]Onset: 03-28-2014 ChronicInfluenza (1 source)Influenza due to other identified influenza virus with other respiratory manifestationsEpisodicMood disorders (20 sources)Depression; Translations: [Depressive disorder]Onset: 08-29-2017 78-85-3293RxnzxciEfzwlrivcgn chest pain (20 sources)Precordial pain; Translations: [Precordial pain]Onset: 09-15-2017 EpisodicNutritional deficiencies (12 sources)Vitamin D deficiency; Translations: [Vitamin D deficiency, unspecified]Onset: 59-38-8958FvvklheUuumhiqyouktoe (20 sources)Osteoarthritis; Translations: [Unspecified osteoarthritis, unspecified site]Onset: 475134-87-0728SgucjypJxlnqiv on above:bilateral Other acquired deformities (14 sources)Acquired [...] source)Other chronic pain; Translations: [OTHER CHRONIC PAIN]Onset: 90-21-6755ZuueyyoJyqwa nervous system disorders (9 sources)Paresthesia of upper [...] obese; Translations: [Body Mass Index 40.0-44.9, adult]Onset: 56-22-8389JtuhtsyZirhe nutritional; endocrine; and metabolic disorders (17 sources)Morbid obesity; Translations: [Morbid obesity]Onset: 06-21-2014 42-43-5630YlnwidrXnpsq nutritional; endocrine; and metabolic disorders (1 source)Hypercalcemia; Translations: [Hypercalcemia]Onset: 51-69-1018Bfmrbqq Other nutritional; endocrine; and metabolic disorders (20 sources)Obese class II; Translations: [Body mass index (BMI) 38.0-38.9, adult]85-58-3065HotgjcuJbnnn nutritional; endocrine; and metabolic disorders (4 sources)Body mass index 30+ - obesity; Translations: [Body mass index (BMI) 38.0-38.9, adult]Onset: 809199-79-9811GcmqftjGding nutritional; endocrine; and metabolic disorders (2 sources)Body mass index (BMI) 38.0-38.9, adult; Translations: [Body mass index (BMI) 38.0-38.9, adult]Onset: 11-62-8968FmwlgltSbgbl nutritional; endocrine; and metabolic disorders (2 sources)Obesity, unspecified; Translations: [Obesity, unspecified]Onset: 95-97-9913VvmopusOnolj nutritional; endocrine; and metabolic disorders (2 sources)Body mass index (BMI) 37.0-37.9, adult; Translations: [Body mass index (BMI) 37.0-37.9, adult]Onset: 99-18-9567BvjuuqoRneiq nutritional; endocrine; and metabolic disorders (7 sources)Abnormal weight gain; Translations: [Abnormal weight gain]07-26-2024 EpisodicOther nutritional; endocrine; and metabolic disorders (3 sources)Abnormal weight gain; Translations: [Abnormal weight gain]07-26-2024 EpisodicOther upper respiratory disease (9 sources)Epistaxis; Translations: [Epistaxis]EpisodicOther upper respiratory disease (5 sources)Bleeding from nose; Translations: [Epistaxis]EpisodicPeri-; endo-; and myocarditis; cardiomyopathy (except that caused by tuberculosis or sexually transmitted disease) (20 sources)Cardiomyopathy; Translations: [Other primary cardiomyopathies]Onset: 64-77-3544DdrqoqmJdreemn on above:Nonischemic;Residual codes; unclassified (20 sources)Obstructive sleep apnea of adult; Translations: [Obstructive sleep apnea (adult)(pediatric)]Onset: 907283-17-5593DouerwnSumntgdo codes; unclassified (10 sources)Obstructive sleep apnea syndrome; Translations: [Obstructive sleep apnea (adult) (pediatric)]79-41-1414HwpixmkDzgyifun codes; unclassified (11 sources)Obstructive sleep apnea (adult) (pediatric); Translations: [Obstructive sleep apnea (adult)(pediatric)]Onset: hronic Residual codes; unclassified (9 sources)Tobacco user; Translations: [Tobacco use]EpisodicResidual codes; unclassified (9 sources)Never smoked tobacco; Translations: [Other specified health status] Onset: 527385-35-0691UgidstdjIjnwcmmrexb; intervertebral disc disorders; other back problems (8 sources)Spondylosis without myelopathy or radiculopathy, lumbar region; Translations: [Other intervertebraldisc degeneration, lumbar region]Onset: 17-97-3304QqrlogqFmqoxlisswa; intervertebral disc disorders; other back problems (20 sources)Neck pain; Translations: [Cervicalgia]Onset: EpisodicUnclassified (4 sources)LOW BACK PAIN, UNSPECIFIED; Translations: [LOW BACK PAIN, UNSPECIFIED]Onset: 18-42-4200Wpckkdxtinjn (5 sources)Exposure to acute respiratory syndrome coronavirus [...] status; Translations: [Other specified counseling]Onset: 08-29-2023 Resolved: 344484-15-4304XvjoereuXlfkjbnzl infection; unspecified site (1 source)Bacterial infectious disease; Translations: [Bacterial infection, unspecified, in conditions classified elsewhere and of unspecified site]Onset: 52-75-3840FggisugjUhxt; stupor; and brain damage (1 source)Somnolence; Translations: [Somnolence]Onset: 88-40-7846Cewqqkjr Deficiency and other anemia (1 source)Anemia; Translations: [Unspecified anemia]Onset: 24-68-4233Exjvzops Diabetes mellitus without complication (20 sources)Impaired fasting glycemia; Translations: [Impaired fasting glucose] Onset: 165534-02-8639UcnacwruAuhzrnsu of upper limb (13 sources)Fracture of unspecified carpal bone, right wrist, initial encounter for closed fracture; Translations: [Fracture of right wrist]Onset: 08-03-2024 59-89-6232BkfohdjjNjujnts and fatigue (20 sources)Fatigue; Translations: [Other malaise and fatigue]Onset: 09-07-2021 EpisodicMood disorders (7 sources)Mood disordersOnset: 715935-02-0902Dsrkgrsnr of unspecified nature or uncertain behavior (1 source)Neoplasm of uncertain behavior of kidney; 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]Onset: 82-84-1902IyuivunkDkaki acquired deformities (4 sources)Unspecified deformity of right finger(s); Translations: [UNSPECIFIED DEFORMITY RIGHT FINGERS]Onset: 75-51-3899TfzdxbbgIponz connective tissue disease (1 source)Spasm; Translations: [Spasm of muscle]Onset: 73-07-5044OuqsdlpeHbiii connective tissue disease (1 source)Myalgia/myositis - multiple; Translations: [Unspecified myalgia and myositis]Onset: 26-59-1067TmhvkzqyWgxdj ear and sense organ disorders (1 source)Acute otitis externa; Translations: [Other acute otitis externa]Onset: 35-31-6389QdddgevaBdfrf lower respiratory disease (20 sources)Dyspnea; Translations: [Other respiratory abnormalities]Onset: 098879-18-7262CowhivdiKawbi lower respiratory disease (5 sources)Dyspnea, unspecified; Translations: [DYSPNEA UNSPECIFIED]Onset: 02-79-4383RubexjkfCtbbl nervous system disorders (1 source)Altered sensation of skin; Translations: [Disturbance of skin sensation]Onset: 33-77-0718EgmihtrpXkidn non-traumatic joint disorders (1 source)Arthralgia of the lower leg; Translations: [Pain in joint, lower leg] Onset: 37-25-8735KoqqqescBxscz nutritional; endocrine; and metabolic disorders (12 sources)Obesity; Translations: [Obesity, unspecified]Onset: 02-25-2023 Resolved: 055011-25-1385WitsqxhLpwpu screening for suspected conditions (not mental disorders or infectious disease) (1 source)Mammography abnormal; Translations: [Unspecified abnormal mammogram] Onset: 81-93-5433RikaztnvFthkl upper respiratory infections (1 source)Acute maxillary sinusitis; Translations: [Acute maxillary sinusitis] Onset: 08-59-4529QuainyclRwehebqe codes; unclassified (1 source)Postmenopausal state; Translations: [Asymptomatic postmenopausal status]Onset: 97-09-5112QnzjoxyfRxtsyqwf codes; unclassified (1 source)C/O - a back symptom; Translations: [Other symptoms referable to back] Onset: 81-34-5636UfckbhyyEmvnldyj codes; unclassified (2 sources)Other specified health status; Translations: [Other specified health status]Onset: 06-90-9314CcrdlvimLuxynzjg codes; unclassified (1 source)Other specified personal risk factors, not elsewhere classified; Translations: [Other specified personal risk factors, not elsewhere classified] Onset: 72-30-2299PnmjsobiQqjuczbxmbci (6 sources)Never smoked tobacco; Translations: [Never a smoker]Unclassified (1 source)LOW BACK PAIN, UNSPECIFIED; Translations: [LOW BACK PAIN, UNSPECIFIED] Onset: 79-82-0363Awyhnlbledol (6 sources)Onset: 08-29-2023 Resolved: Results Test NameValueInterpretationReference RangeFacilityBasophils Auto (Bld) [#/Vol] Ordered By: Anupam Pereira on 03-15-7806Fqneencbl (Bld) [#/Vol]0.0 10 3/uL0.0-0.1 [facility] CenterBasophils/100 WBC Auto (Bld)Ordered By: Anupam Pereira on 81-80-6057Uqaoeokwu/100 WBC (Bld)0.4 %0.2-2.0[facility] CenterEosinophils/100 WBC Auto (Bld)Ordered By: Anupam Pereira on 02-04-2025 Eosinophils/100 WBC (Bld)2.0 %0.9-7.0[facility] Erythrocyte distribution width Auto (RBC) [Ratio]Ordered By: Anupam Pereira on 57-37-3334Xpsuyfahsml distribution width (RBC) [Ratio]13.4 %11.0-15.0[facility] Medical CenterGlomerular filtration rate (GFR) estimation in non- AmericanOrdered By: Anupam Pereira on 52-69-2513GGL/1.73 sq M.predicted among non-blacks MDRD (S/P/Bld) [Vol rate/Area]mL/min/{1.73_m2}>=60 mL/min/1.73m 2FUniversity Hospitals Portage Medical CenterHematocrit Auto (Bld) [Volume fraction]Ordered By: Anupam Pereira on 39-05-2351Dzxjmraelh (Bld) [Volume fraction]38.2 %36.0-48.0 [facility] CenterHemoglobin [Mass/volume] in BloodOrdered By: Anupam Pereira on 89-51-9774Caiwszgptg (Bld) [Mass/Vol]12.5 g/dL12.0-16.0[facility] CenterLaboratory - Chemistry and Chemistry - challengeOrdered By: Anupam Pereira on 01-53-9713Ehxtpsp [Mass/Vol]9.3 mg/dL8.5-10.1FUniversity Hospitals Portage Medical CenterChloride [Moles/Vol]105 mmol/F21-441BmbipoljlOhio State University Wexner Medical CenterCO2 [Moles/Vol]30.2 mmol/L21.0-32.0[facility] CenterCreatinine [Mass/Vol]0.75 mg/dL0.55-1.02[facility] GFR/1.73 sq M.predicted MDRD (S/P/Bld) [Vol rate/Area]mL/min/{1.73_m2}>=60 mL/min/1.[address]m [address] [place], [place] [address]Glucose [Mass/Vol]95 mg/hR78-209 [facility] CenterPotassium [Moles/Vol]3.9 mmol/L3.5-5.1FGreene Memorial Hospitalodium [Moles/Vol]143 mmol/S838-730IcsbxpelxOhio State University Wexner Medical CenterUrea nitrogen [Mass/Vol]17.0 mg/dL7.0-18.0[facility] CenterUrea nitrogen/Creatinine [Mass ratio]22.7 mg/mgOhio State University Wexner Medical CenterBilirubin Ql (U)NegativeNEGProtestant Deaconess Hospital Glucose (U) [Mass/Vol]NegativeNEGATIVEOhio State University Wexner Medical CenterKetones Ql (U)NegativeNEGProtestant Deaconess HospitalpH (U)6.0 [pH]5.0-9.0 [facility] Ohiopecific gravity (U) [Rel density]1.025 1.005-1.025[facility] CenterUrobilinogen Qn (U)2.0 {Trish'U}/dLAbnormal0.2-1.0[facility] CenterLaboratory - Hematology and Cell countsOrdered By: Anupam Pereira on 65-96-4233Pztvuaiv granulocytes/100 WBC (Bld)0.4 %0.0-0.5FUniversity Hospitals Portage Medical Center Laboratory - Specimen informationOrdered By: Anupam Pereira on 02-04-2025 Appearance (U)CLEARCLEARFUniversity Hospitals Portage Medical CenterColor (U)LT. YELLOW YELLOWOhio State University Wexner Medical CenterLaboratory - UrinalysisOrdered By: Anupam Pereira on 81-38-4191Ddelqwbgu esterase Test strip Ql (U)NegativeNEGProtestant Deaconess HospitalNitrite Ql (U)NegativeNEGProtestant Deaconess HospitalProtein Ql (U)NegativeNEG/TRACEOhio State University Wexner Medical CenterLeukocytes [#/volume] corrected for nucleated erythrocytes in Blood by Automated coun Ordered By: Anupam Pereira on 40-92-8338LMJ corrected for nucl RBC Auto (Bld) [#/Vol]7.4 10 3/uL4.0-11.0[facility] Medical CenterLymphocytes Auto (Bld) [#/Vol]Ordered By: Anupam Pereira on 02-15-3576Klrgglqwnch (Bld) [#/Vol]1.8 10 3/uL1.2-3.8[facility] Medical CenterLymphocytes/100 WBC Auto (Bld) Ordered By: Anupam Pereira on 57-42-2521Kublssuwpqh/100 WBC (Bld)24.4 %20.5-60.0 [facility] HospitalH Auto (RBC) [Entitic mass]Ordered By: Anupam Pereira on 31-16-0856NSW (RBC) [Entitic mass]28.3 pg26.7-34.0[facility] Medical CenterMCHC Auto (RBC) [Mass/Vol]Ordered By: Anupam Pereira on 02-04-2025 MCHC (RBC) [Mass/Vol]32.7 g/dL29.9-35.2FUniversity Hospitals Portage Medical CenterMCV Auto (RBC) [Entitic vol]Ordered By: Anupam Pereira on 07-46-0837XHK (RBC) [Entitic vol]86.6 fL81.0-99.0[facility] Medical CenterMonocytes Auto (Bld) [#/Vol]Ordered By: Anupam Pereira on 42-07-8758Yfcawjuap (Bld) [#/Vol]0.7 10 3/uL 0.3-0.8[facility] CenterMonocytes/100 WBC Auto (Bld)Ordered By: Anupam Pereira on 45-19-5292Jxpejmthz/100 WBC (Bld)8.8 %1.7-12.0[facility] Medical CenterNeutrophils Auto (Bld) [#/Vol]Ordered By: Anupam Pereira on 28-76-2577Fsvmefrsqld (Bld) [#/Vol]4.7 10 3/uL1.4-6.5FUniversity Hospitals Portage Medical CenterNeutrophils/100 WBC Auto (Bld)Ordered By: Anupam Pereira on 02-04-2025 Neutrophils/100 WBC (Bld)64.0 %43.0-75.0[facility] CenterNo Panel InformationOrdered By: Anupam Pereira on 15-23-9672Vhztasijcoi # (Auto)0.2 10 3/uL0.0-0.7FUniversity Hospitals Portage Medical CenterImmature Granulocyte # (Auto)0.03 10 3/uL0.00-0.03[facility] Medical CenterUrine Occult BloodTRACE-I NEGATIVEOhio State University Wexner Medical CenterPlatelet mean volume Auto (Bld) [Entitic vol]Ordered By: Anupam Pereira on 97-63-8061Pudxbdev mean volume (Bld) [Entitic vol]9.8 fL9.5-13.5FUniversity Hospitals Portage Medical CenterPlatelets Auto (Bld) [#/Vol]Ordered By: Anupam Pereira on 04-66-1465Ysmyoxaom (Bld) [#/Vol]322 10 3/uL 150-450Ohio [facility] University Wexner Medical CenterRBC Auto (Bld) [#/Vol]Ordered By: Anupam Pereira on 05-38-1973GYN (Bld) [#/Vol]4.41 10 6/uL4.20-5.40[facility] Hospital [facility] Southeast Ohioerum or plasma anion gap determinationOrdered By: Anupam Pereira on 93-41-3141Rhacn gap [Moles/Vol]11.7 mmol/LFUniversity Hospitals Portage Medical Center Magnetic resonance imaging reportOrdered By: Harsh Ríos on 49-10-5562Rmvpv reportTHE BELLEVUE [place] [address] MRI Report Signed Patient: Nya Bell MR#: [id number] : 1955 Acct:[id number] Age/Sex: 68 / F ADM Date: 5 Loc: MR Room: Type: [facility] Attending Dr: Maren Aden Copies to: Maren Aden~ Ordering Provider: Maren Aden Date of Service: 08/03/24 XR/XR pre/post mri xray: S52.591A ([id number]) MR/MR wrist RT wo con: SEE ORDER [...] Harsh Ríos M.D.08/03/2024 3:45 PM Dictation Location: [place] [address] Transcribed By: [facility] 08/03/24 1545 Dictated By: Harsh Ríos DO 08/03/24 1520 Signed By: 08/03/24 1545 [facility] CenterXR pre/post mri xrayon 71-75-9745VO pre/post mri xrayTHE [facility]LEVUE [facility] [place] [address] [place] [address] MRI Report Signed Patient: Nya Bell MR#: [id number] : 1955 Acct:[id number] Age/Sex: 68 / F ADM Date: 08/03/24 Loc: MR Room: Type: [facility] Attending Dr: Maren Aden Copies to: Maren Aden Ordering Provider: Maren Aden Date of Service: 08/03/24 XR/XR pre/post mri xray: S52.591A ([id number]) MR/MR wrist RT wo con: SEE ORDER [...] Harsh Ríos M.D.08/03/2024 3:45 PM Dictation Location: [place] [address] Transcribed By: [facility] 08/03/24 1545 Dictated By: Harsh Ríos DO 08/03/24 1520 Signed By: 08/03/24 1545NoCentral [facility] Physician WrzfcP7A with Estimated Average Gluon 78-47-5142Ioopqya [Mass/Vol]114 mg/dLNoCentral Harnett Hospital Physician GroupComment on above:Result Comment: PERFORMED BY: [address] [place] [address] PATHOLOGIST SPEEDOMETER INSPECTOR ARASELI SAHU M.D.Performed By: #### CBCNO, A1C WT eA, LIPID, TSH3 wRFLX #### [facility] [address] [place] [address] PBBJdW5g (Bld) [Mass fraction]5.6 %Normal4.3-5.6[facility] Physician [facility] HealthComment on above:Result Comment: Increased risk for diabetes: 5.7 - 6.4 diabetes: >6.4 glycemic control for adults with diabetes: <7.0Performed By: #### CBCNO, A1C WT eA, LIPID, TSH3 wRFLX #### [address] [place] [address] USABlood estimated average glucose determination by estimation from glycated hemoglobinOrdered By: Rosemarie Lea on 07-12-2024 Average glucose Estimated from glycated hemoglobin (Bld) [Mass/Vol]Glucose mean value [Mass/volume] in Blood Estimated from glycated hemoglobinOhio State University Wexner Medical CenterCholesterol [Mass/volume] in Serum or PlasmaOrdered By: Rosemarie Lea on 36-89-0113Hlekegfdixr [Mass/Vol]Cholesterol [Mass/volume] in Serum or Yhxkhq311-797YdcqmlsxqOhio State University Wexner Medical CenterComment on above:Chol less than 200 mg/dl low riskChol 201-239 mg/dl borderline riskChol 240 mg/dl and greater high riskCholesterol in HDL [Mass/volume] in Serum or PlasmaOrdered By: Rosemarie Lea on 04-02-7500Nuttvohvdpu in HDL [Mass/Vol]Serum or plasma high density lipoprotein (HDL) cholesterol apdqwgckszd93-41MhxnylacuOhio State University Wexner Medical CenterComment on above:HDL CHOL ATP-III CLASSIFICATION Cardiovascular RiskHDL > or equal to 60 mg/dL LOWHDL < 40 mg/dL HIGHCholesterol in LDL Calc [Mass/Vol] Ordered By: Rosemarie Lea on 14-04-3920Xqukdnnokzv in LDL [Mass/Vol] Cholesterol in LDL [Mass/volume] in Serum or Plasma by calculation0-100Ohio [facility] University Wexner Medical CenterComment on above:LDL ATP III CLASSIFICATIONLDL less than 100 mg/dL OptimalLDL 100-129 mg/dL Near or above macjgcmAWC971-785 mg/dL Borderline highLDL 160-189 mg/dL HighLDL greater than 189 mg/dL Very high Cholesterol in VLDL Calc [Mass/Vol]Ordered By: Rosemarie Lea on 07-12-2024 Cholesterol in VLDL [Mass/Vol]Cholesterol in VLDL [Mass/volume] in Serum or Plasma by calculationOhio State University Wexner Medical CenterErythrocyte distribution width Auto (RBC) [Ratio]Ordered By: Rosemarie Lea on 26-93-8648Wvwgfmapfdk distribution width (RBC) [Ratio]Erythrocyte distribution width [Ratio] by Automated count11.9-15.3FUniversity Hospitals Portage Medical CenterHematocrit Auto (Bld) [Volume fraction]Ordered By: Rosemarie Lea on 61-66-0932Fwuquehysw (Bld) [Volume fraction]Hematocrit [Volume Fraction] of Blood by Automated count 34.0-46.4FUniversity Hospitals Portage Medical CenterHemoglobin A1c/Hemoglobin.total in BloodOrdered By: Rosemarie Lea on 96-69-2775CjZ3j (Bld) [Mass fraction] Hemoglobin A1c percentage4.3-5.6FUniversity Hospitals Portage Medical CenterComment on above:Increased risk for diabetes: 5.7 - 6.4diabetes: >6.4glycemic control for adults with diabetes: <7.0Hemoglobin [Mass/volume] in BloodOrdered By: Rosemarie Lea on 68-38-9123Spxlifqgvh (Bld) [Mass/Vol]Hemoglobin [Mass/volume] in Blood11.8-15.4FUniversity Hospitals Portage Medical CenterHemogram CBC Without Diffon 36-14-8860Xwuozqypbks distribution width (RBC) [Ratio]14.4 %Ovvrii81.9-15.3The [facility] Physician GroupComment on above:Performed By: #### CBCNO, A1C WTH eA, LIPID, TSH3 wRFLX #### [facility] [address] [place] [address] USAHematocrit (Bld) [Volume fraction]36.0 %Trczgr65.0-46.4The [facility] Physician GroupComment on above:Performed By: #### CBCNO, A1C WTH eA, LIPID, TSH3 wRFLX #### [facility] [address] [place] [address] USAHemoglobin (Bld) [Mass/Vol]12.3 g/pFDbfjoo59.8-15.4The [facility] Physician GroupComment on above:Performed By: #### CBCNO, A1C WTH eA, LIPID, TSH3 wRFLX #### [facility] [address] [place] [address] USAH (RBC) [Entitic mass]29.0 khVhqrwb41.7-34.3The [facility] Physician GroupComment on above:Performed By: #### CBCNO, A1C WTH eA, LIPID, TSH3 wRFLX #### [facility] [address] [place] [address] USAV (RBC) [Entitic vol]84.7 fPOzoqft21-347Jsk [facility] Physician GroupComment on above:Performed By: #### CBCNO, A1C WTH eA, LIPID, TSH3 wRFLX #### [facility] [address] [place] [address] USAMean Corpuscular HGB Conc34.2 g/dWByiijv14.0-35.0The [facility] Physician GroupComment on above:Performed By: #### CBCNO, A1C WTH eA, LIPID, TSH3 wRFLX #### [place] [address] USAPlatelet mean volume (Bld) [Entitic vol]9.0 fLNormal 6.3-10.7The [facility] Physician GroupComment on above:Result Comment: PERFORMED BY: [place] [address] PATHOLOGIST SPEEDOMETER INSPECTOR ARASELI SAHU M.D.Performed By: #### CBCNO, A1C WTH eA, LIPID, TSH3 wRFLX #### [place] [address] USAPlatelets (Bld) [#/Vol]299 10*3/mZTpzimz549-166Doq [facility] Physician GroupComment on above:Performed By: #### CBCNO, A1C WTH eA, LIPID, TSH3 wRFLX #### [place] [address] USARBC (Bld) [#/Vol]4.25 10*6/uLNormal3.60-5.00The [facility] Physician GroupComment on above:Performed By: #### CBCNO, A1C WTH eA, LIPID, TSH3 wRFLX #### [place] [address] USAWBC (Bld) [#/Vol]8.0 10*3/uLNormal3.8-11.6The [facility] Physician GroupComment on above:Performed By: #### CBCNO, A1C WTH eA, LIPID, TSH3 wRFLX #### [address] [place] [address] USALeukocytes [#/volume] corrected for nucleated erythrocytes in Blood by Automated counOrdered By: Rosemarie Lea on 89-17-2773WZD corrected for nucl RBC Auto (Bld) [#/Vol]Leukocytes [#/volume] corrected for nucleated erythrocytes in Blood by Automated coun3.8-11.6FUniversity Hospitals Portage Medical CenterLipid Panelon 27-11-1854Toipsuesmlp [Mass/Vol]145 mg/dLNormal 140-200The [facility] Physician GroupComment on above:Result Comment: Chol less than 200 mg/dl low risk Chol 201-239 mg/dl borderline risk Chol 240 mg/dl and greater high riskPerformed By: #### CBCNO, A1C WTH eA, LIPID, TSH3 wRFLX #### [facility] [address] [place] [address] USACholesterol in HDL [Mass/Vol]51 mg/iXQrkavq68-01Oyz [facility] Physician GroupComment on above:Result Comment: HDL CHOL ATP-III CLASSIFICATION Cardiovascular Risk HDL > or equal to 60 mg/dL LOW HDL < 40 mg/dL HIGHPerformed By: #### CBCNO, A1C WTH eA, LIPID, TSH3 wRFLX #### [facility] [address] [place] [address] USACholesterol.total/Cholesterol in HDL [Mass ratio]2.8 {ratio}Normal<5.0The [facility] Physician GroupComment on above:Performed By: #### CBCNO, A1C WTH eA, LIPID, TSH3 wRFLX #### [facility] [address] [place] [address] USALDL Cholesterol,Wmzovyxqly05 mg/dLNormal0-100The [facility] Physician GroupComment on above:Result Comment: LDL ATP III CLASSIFICATION LDL less than 100 mg/dL Optimal LDL 100-129 mg/dL Near or above optimal LDL 130-159 mg/dL Borderline high LDL 160-189 mg/dL High LDL greater than 189 mg/dL Very highPerformed By: #### CBCNO, A1C WTH eA, LIPID, TSH3 wRFLX #### [facility] [address] [place] [address] USATriglyceride w/Vcpauf25 mg/dLNormal0-149[facility] Physician GroupComment on above:Result Comment: TRIG ATP III CLASSIFICATION TRIG less than 150 mg/dL Normal TRIG 150-199 mg/dL Borderline high TRIG 200-500 mg/dL High TRIG greater than 500 mg/dL Very high Standard traceable to the Center for Disease Conrtrol and Prevention (CDC) test method.Performed By: #### CBCNO, A1C [facility] eA, LIPID, TSH3 wRFLX #### [facility] [address] [place] [address] USAVLDL DXGJPZTPUCB11 mg/dLNormPalm Bay Community Hospital Physician GroupComment on above:Performed By: #### CBCNO, A1C [facility] eA, LIPID, TSH3 wRFLX #### [facility] [address] [place] [id number] [facility] Auto (RBC) [Entitic mass]Ordered By: Rosemarie Lea on 09-96-4098LGQ (RBC) [Entitic mass]MCH [Entitic mass] by Automated count 24.7-34.3FSelect Medical Specialty Hospital - Youngstown Auto (RBC) [Mass/Vol]Ordered By: Rosemarie Lea on 47-87-0568HMIA (RBC) [Mass/Vol]MCHC [Mass/volume] by Automated count32.0-35.0[facility] Auto (RBC) [Entitic vol]Ordered By: Rosemarie Lea on 63-40-6841AKS (RBC) [Entitic vol]MCV [Entitic volume] by Automated mrhve69-233UcsznjhvbOhio State University Wexner Medical Center Platelet mean volume Auto (Bld) [Entitic vol]Ordered By: Rosemarie Lea on 51-56-2489Yqkktkfe mean volume (Bld) [Entitic vol]Platelet mean volume [Entitic volume] in Blood by Automated count6.3-10.7FUniversity Hospitals Portage Medical Center Platelets Auto (Bld) [#/Vol]Ordered By: Rosemarie Lea on 73-61-9233Fpbglalxj (Bld) [#/Vol]Platelets [#/volume] in Blood by Automated -412QxlkqdvimOhio State University Wexner Medical CenterRBC Auto (Bld) [#/Vol]Ordered By: Rosemarie Lea on 27-03-8788UFB (Bld) [#/Vol]Erythrocytes [#/volume] in Blood by Automated count 3.60-5.00[facility]ty Hospital - Southeast Ohioerum or plasma total cholesterol/high density lipoprotein (HDL) cholesterol mass ratOrdered By: Rosemarie Lea on 50-06-4459Huvfjmbtbbj.total/Cholesterol in HDL [Mass ratio]Serum or plasma total cholesterol/high density lipoprotein (HDL) cholesterol mass rat<5.0[facility] Medical CenterThyroid Stim Hormone w/Rflxon 05-03-2490Eqhgwwa Stim Hormone w/Rflx1.67 u[iU]/mLNormal0.45-5.33The [facility] Physician GroupComment on above:Result Comment: PERFORMED BY: [facility] [address] [place] [address] PATHOLOGIST SPEEDOMETER INSPECTOR ARASELI SAHU M.D.Performed By: #### CBCNO, A1C WTH eA, LIPID, TSH3 wRFLX #### [place] [address] USAThyrotropin [Units/volume] in Serum or PlasmaOrdered By: Rosemarie Lea on 36-50-2162DFU QnThyrotropin [Units/volume] in Serum or Plasma 0.45-5.33[facility] Medical CenterTriglyceride [Mass/volume] in Serum or PlasmaOrdered By: Rosemarie Lea on 27-32-1219Xxcsnwmjgzyh [Mass/Vol] Triglyceride [Mass/volume] in Serum or Plasma0-149[facility] Medical CenterComment on above:TRIG ATP III CLASSIFICATIONTRIG less than 150 mg/dL NormalTRIG 150-199 mg/dL Borderline highTRIG 200-500 mg/dL High TRIG greater than 500 mg/dL Very highStandard traceable to the Center for Disease Conrtrol and Prevention (CDC) test method.HbA1c HPLC (Bld) [Mass fraction]on 05-31-2024 HbA1c (Bld) [Mass fraction]Hemoglobin A1c/Hemoglobin.total in Blood by HPLC [facility] Medical CenterBASIC METABOLIC PANLon 84-64-3309Fjevc gap [Moles/Vol]10 mmol/LNormal5-15ProMedica East Middlebury HospitalComment on above: Performed By: #### BMP #### [facility] ([id number]) [address], [address] [place], [place] [address]Qpakjpa [Mass/Vol]9.3 mg/dLOhio State University Wexner Medical Center Comment on above:Performed By: #### BMP #### [facility] ([id number]) [address], [address] [place], [place] [address]Tocabwui [Moles/Vol]105 mmol/[facility] Comment on above:Performed By: #### BMP #### [facility] ([id number]) [address] [facility] [place], [place] [address]OD8 [Moles/Vol]26 mmol/[facility] HospitalComment on above:Performed By: #### BMP #### [facility] ([id number]) [address] [facility], [address] [place], [place] [address]Qowmzyxdqi [Mass/Vol]0.73 mg/dLOhio State University Wexner Medical Center Comment on above:Result Comment: METHOD TRACEABLE TO IDMS STANDARDPerformed By: #### BMP #### [facility] ([id number]) [address], [address] [place], [place] [address]OJY/1.73 sq M.predicted among non-blacks MDRD (S/P/Bld) [Vol rate/Area]89 mL/min/{1.73_m2}Normal>59Fostoria City HospitalComment on above:Result Comment: Reported eGFR is based on the CKD-EPI 1 equation that does not use a race coefficient.Performed By: #### BMP #### [facility] ([id number]) [address], [address] [place], [place] [address]Oabwjzn [Mass/Vol]121 mg/dLOhio State University Wexner Medical Center Comment on above:Performed By: #### BMP #### [facility] ([id number]) [address], [address] [place], [place] [address]Phiwmmags [Moles/Vol]3.8 mmol/LFUniversity Hospitals Portage Medical Center Comment on above:Performed By: #### BMP #### [facility] ([id number]) [address] [place] [address], [address] [place], [place] [address]Gescfl [Moles/Vol]141 mmol/LFUniversity Hospitals Portage Medical Center Comment on above:Performed By: #### BMP #### [facility] ([id number]) [address] [place] [address], [address] [place], [place] [address]Gjtj nitrogen [Mass/Vol]19 mg/dLOhio State University Wexner Medical CenterComment on above:Performed By: #### BMP #### [facility] ([id number]) [address] [place] [address], [address] [place], [place] [address]Sy Panel Informationon 14-23-9569Majntliar GFR (Non- Lereqitc01 mL/minOhio State University Wexner Medical CenterCardiac Device Check - In Clinicon 56-59-9248TkqneeywajAdena Health System Work Phone: Radiology Study observation (narrative)[facility] Work Phone: Influenza virus B Ag [Presence] in Upper respiratory specimen by Rapid immunoassayon 68-33-9326EIIWR Ag IA.rapid Ql (Nph)Negative [facility] CenterNo Panel Informationon 11-79-8634Eauhatcra Type A (Rapid)NegativeOhio State University Wexner Medical CenterPO SARS CoV-2 Antigen PositiveOhio State University Wexner Medical CenterBasi metabolic 2000 panelon 08-29-2023 Anion gap [Moles/Vol]11 mmol/RCwqrdi73-40CnxavhwxmtOhio State University Wexner Medical CenterComment on above:Performed By: #### 77096-1 #### EMILE YEE ([id number]) [facility] ([facility]) [address] [place] [address]Fzdhnbi [Mass/Vol]9.5 mg/dLNormal8.6-10.3Lutheran HospitalComment on above:Performed By: #### 96912-5 #### EMILE YEE ([id number]) [facility] ([facility]) [address] [place], [place] [address]Jeegvqgp [Moles/Vol]107 mmol/SThhymp99-283VcptfgkttuLutheran HospitalComment on above:Performed By: #### 15459-1 #### PONCEIBRAMONA VETO PHILLIP ([id number]) [facility] ([facility]) [address] [place], [place] [address]CJ2 [Moles/Vol]29 mmol/EThdzeo90-68WnihgqfcwoOhio State University Wexner Medical CenterComment on above:Performed By: #### 55207-1 #### PONCEIBRAMONA VETO PHILLIP ([id number]) [facility] ([facility]) [address] [place] [address]Mmpajulnso [Mass/Vol]0.75 mg/dLNormal0.50-1.05UnOhio State University Wexner Medical CenterComment on above:Performed By: #### 98109-8 #### EMILE VETO PHILLIP ([id number]) [facility] ([facility]) [address] [place] [address]Rghhwgzgyr filtration rate/1.73 sq M.rspyilemq97 mL/min/1.73m*2 Normal>60UnOhio State University Wexner Medical CenterComment on above:Result Comment: Calculations of estimated GFR are performed using the 2020 CKD-EPI Study Refit equation without the race variable for the IDMS-Traceable creatinine methods. https://jasn.asnjournals.org/content//ASN.5976383194Bknufiikw By: #### 32620-9 #### PONCEIBRAMONA VETO PHILLIP ([id number]) [facility] ([facility]) [address] [place], [place] [address]Olwftho [Mass/Vol]105 mg/yDYkny73-71OmutkzzrfzLutheran HospitalComment on above:Performed By: #### 46015-3 #### PONCEIBRAMONA VETO PHILLIP ([id number]) [facility] ([facility]) [address] [place], [place] [address]Hzdaejplq [Moles/Vol]4.4 mmol/LNormal3.5-5.3Untexas health southwest fort worth Hospitals Maria Medical CenterComment on above:Performed By: #### 56525-9 #### EMILE YEE ([id number]) [facility] ([facility]) [address] [place] [address]Vjnvop [Moles/Vol]143 mmol/QHzbyxt483-438WhtupataneLutheran HospitalComment on above:Performed By: #### 39264-8 #### PONCEIBRAMONA YEE ([id number]) [facility] ([facility]) [address] [place] [address]Qpez nitrogen [Mass/Vol]19 mg/dLNormal6-23Lutheran HospitalComment on above:Performed By: #### 60877-2 #### EMILE YEE ([id number]) [facility] ([facility]) [address] [place] [address]SOF 12 lead (Clinic Performed)on 12-95-0309Zqp scanCPAdena Pike Medical Center Work Phone: Echocardiogramon 13-21-3658SycirclqepqppmxkKkycy[address], [address] [place] [address] TRANSTHORACIC ECHOCARDIOGRAM REPORT Patient Name: NYA BELL Mainor Physician: [id number] Lupe Rosado MD, [facility] Study Date: 11/22/2022 Referring LUPE ROSADO Physician: MRN/PID: [id number] PCP: Anupam Pereira Accession/Order#: [id number] [facility] Location: Date of : 1955 Fellow: Gender: F Nurse: Admit Date: Smokehouse Operator: Ashlyn Cam RDCS [facility] Height: 152.40 cm CC Report to: Weight: 91.17 kg Study Type: Echocardiogram BSA: 1.87 m2 Blood Pressure: 134 /62 mmHg Diagnosis/ICD: I50.22-Chronic systolic (congestive) heart failure (CHF); I42.9-Cardiomyopathy, unspecified Indication: AICD, WALDEMAR, Obesity Procedure/CPT: Echo Complete w Full Doppler-[id number] Study Detail: The following Echo studies were [...] 0.8 m/s (0.6-0.9m/s) PV Max P.3 mmHg [id number] Lupe Rosado MD, FACC Electronically signed on 11/22/2022 at 1:01:56 PM Final [facility] NortheastOffice Visit (Cardiology)on 80-93-1377Iamoyr-up visitDiagnoses/Problems Assessed Chronic systolic congestive heart failure [...] Dr. Lupe Rosado MD, schedule at [facility] for echo Follow up in 6 [...] scheduled. We will arrange for that at [facility]. Her weight is unchanged from previously and [...] AICD, device is assessed by electrophysiology at [facility] 3?cardiac catheterization 7 years ago at [facility] was normal 4? fatigue of [...] Recorded: 09Oct2022 10:59AM Heart Rate72, L Radial Gaztfstj928, LUE, Sitting Rzqsnotdj39, LUE, Sitting Height5 ft Etizmd378 lb BMI Qdflurjhyi71.26 kg/m2 BSA Calculated1.87 Tobacco Useb) No PHQ-2 [...] c (more content not included)...NormalUH TouchworksTobacco Screening.on 69-85-7594Jnvl risk assessmenta) No falls within the last yearMPCapital Region Medical Center Invieo 250 DO Work Phone: Tobacco use status CPHSb) NoMPWhidbeyhealth Medical Center AppBrick 250 DO Work Phone: Tobacco Screening.Yes-[facility] [employer] 250 DO Work Phone: CBC AUTO DIFFon 37-14-0979KNNX #0.0 103/ulNormal 0.0-0.1Pro[facility]ica Fostoria Community Hospitalment on above:Performed By: #### CBC ####[facility] [address] [place] [address]Dr.Yilan Mazariegos Basophils/100 WBC (Bld)0.4 %Normal0.2-2.0The [facility] on above: Performed By: #### CBC ####[facility] [address] [place] [address]Dr.Yilan ChangEO #0.2 103/ulNormal0.0-0.7The [facility] on above:Performed By: #### CBC ####[facility] [address] [place], [place] [address]Dr.Yilan ChangEosinophils/100 WBC (Bld)2.0 %Normal0.9-7.0The [facility] on above:Performed By: #### CBC ####[facility] [address] [place], [place] [address]Dr.Phillip ChangErythrocyte distribution width (RBC) [Ratio]13.8 %Normal 11.0-15.0[facility] on above:Performed By: #### CBC ####[facility] [address] [place], [place] [address]Dr. Rerebrent ChangHematocrit (Bld) [Volume fraction]36.3 %Yjgjca52.0-48.0[facility]Comment on above:Performed By: #### CBC ####[facility] [id number] [address] [place], [place] [address]Dr.Rerebrent ChangHemoglobin (Bld) [Mass/Vol]12.1 g/dDIvmeie81.0-16.0The [facility] Medical CenterComment on above: Performed By: #### CBC ####[facility] Qgnvuyhzog[address] [place], [place] [address]Dr.Rerebrent ChangIG #0.02 10e3/ulNormal0.00-0.03The [facility] Medical CenterComment on above:Performed By: #### CBC ####[facility] Zfvibiaooy[address] [place], [place] [address]Dr.Phillip ChangIG %0.3 %Normal 0.0-0.5The [facility] CenterComment on above:Performed By: #### CBC ####[facility] Ovxhwwqms[address] [place], [place] [address]Dr.Rerebrent ChangLYMPH #1.9 103/ulNormal1.2-3.8The [facility] CenterComment on above:Performed By: #### CBC ####[facility] Gpxslvytwo[address] [place], [place] [address]Dr.Rerebrent ChangLymphocytes/100 WBC (Bld)25.7 %Kzgwqa91.5-60.0The [facility] CenterComment on above:Performed By: #### CBC ####[facility] Avyaayvvzh[address] [place], [place] [address]Dr.Rerebrent ChangMANUAL DIFF REQ NONormalThe [facility] Medical CenterComment on above:Performed By: #### CBC ####[facility] [address] [place] [address]Dr. Phillip MazariegosH (RBC) [Entitic mass]28.7 ybXdyqch97.7-34.0The [facility] Comment on above:Performed By: #### CBC ####[facility] Cfgljlbjtu[address] [place], [place] [address]Dr.Phillip MazariegosHC (RBC) [Mass/Vol]33.3 g/dL Gxofcf43.9-35.2The [facility] CenterComment on above:Performed By: #### CBC ####[facility] Obkn[address]px[address] [place], [place] [address]Dr. Rerebrent MazariegosV (RBC) [Entitic vol]86.0 yNFqivto05.0-99.0The [facility] Comment on above:Performed By: #### CBC ####[facility] Pwpcftfzgp[address] [place], [place] [address]Dr.Phillip MazariegosMONO #0.6 103/ulNormal0.3-0.8 The [facility] CenterComment on above:Performed By: #### CBC ####[facility] Xifdgxlfuj[address] [place], [place] [address]DrMilton Mazariegos Monocytes/100 WBC (Bld)7.8 %Normal1.7-12.0The [facility] CenterComment on above: Performed By: #### CBC ####[facility] Bvpxvsngme[address] [place], [place] [address]Dr.Rerebrent YairNEUT #4.7 103/ulNormal1.4-6.5The [facility] CenterComment on above:Performed By: #### CBC ####[facility] Vocdptlvei[address] [place], [place] [address]Dr.Phillip MazariegosNeutrophils/100 WBC (Bld)63.8 %Dxoatk68.0-75.0The [facility] CenterComment on above:Performed By: #### CBC ####[facility] Mrturwxuka8[address] [place], [place] [address]Dr.Phillip MazariegosPlatelet mean volume (Bld) [Entitic vol]9.5 fLNormal9.5-13.5 The [facility] CenterComment on above:Performed By: #### CBC ####[facility] [address] [place] [address]Dr.Phillip MazariegosPLT269 103/jtTaxhzn754-137Ruc [facility] CenterComment on above:Performed By: #### CBC ####[facility] [address]ci[address] [place] [address]Dr. hPillip MazariegosRBC4.22 106/ulNormal4.20-5.40The [facility] CenterComment on above: Performed By: #### CBC ####[facility] Vykvztsofq[address] [place], [place] [address]Dr.Phillip MazariegosWBC7.4 103/ulNormal4.0-11.0The [facility] CenterComment on above:Performed By: #### CBC ####[facility] Vvtordgkyt[address] [place], [place] [address]Dr.Phillip MazariegosFERRITINon 28-65-1770Yzikmsxm [Mass/Vol]212.0 ng/mLNormal8.0-252.0The [facility] Comment on above:Performed By: #### OCTAVIO, VITB12, VITAD #### [facility] [address] [place] [address] Dr. Phillip MazariegosVITAMIN B12on 46-73-7754Kuodyffoy (Vitamin B12) [Mass/Vol]698.0 pg/rDBzzntm996.0-986.0The [facility] Centerment on above:Performed By: #### FERR, VITB12, VITAD #### [facility] [address] [place] [address] [address] Phillip MazariegosVITAMIN D 25 OHon 65-75-0655OGJ D 25-OH28.1 ng/mLNormalThe [facility] Medical Centerment on above:Performed By: #### FERR, VITB12, VITAD ####[facility] Yaiiinpgzx[address] [place], [place] [address]Dr. Phillip MazariegosVIT D RANGESSEE [facility] Perrysburg HospitalComment on above: Result Comment: <20 ng/mL Vit D deficient 20 - <30 ng/mL Vit D insufficient 30 - 100 ng/mL Vit D sufficient >100 ng/mL Potential ToxicityPerformed By: #### FERR, VITB12, VITAD ####[facility] [address] [place] [address]Dr. Yilan ChangPROF CHEM 8 (BAS METB)on 04-23-2022 Anion gap [Moles/Vol]10.8 mmol/LNormalThe [facility] CenterComment on above: Performed By: #### BMP ####[facility] [address]knyvwagof[address] [place], [place] [address]Dr.Yilan ChangCalcium [Mass/Vol]9.1 mg/dLNormal 8.5-10.1The [facility] CenterComment on above:Performed By: #### BMP ####[facility] Buszdf[address]xw[address] [place], [place] [address]Dr. Yilan ChangChloride [Moles/Vol]108 mmol/LCritically ghaw11-620Nli [facility] CenterComment on above:Performed By: #### BMP ####[facility] Myphvydvsk[address] [place], [place] [address]Dr.Yilan ChangCO2 [Moles/Vol] 29.6 mmol/CDmrgdi94.0-32.0The [facility] CenterComment on above:Performed By: #### BMP ####[facility] Rofrqgyjri[address] [place], [place] [address]Dr.Yilan ChangCreatinine [Mass/Vol]0.85 mg/dLNormal0.55-1.02The [facility] CenterComment on above:Performed By: #### BMP ####[facility] Mulkrhwkdv[address] [place], [place] [address]Dr.Yilan ChangEGFR-AF BAHRAINI>60Normal>=60The [facility] CenterComment on above:Performed By: #### BMP ####[facility] Blegcfntqx[address] [place], [place] [address]Dr. Yilan ChangEGFR-NON AF BAHRAINI>60Normal>=60The [facility] CenterComment on above:Performed By: #### BMP ####[facility] G[address]qs[address] [place], [place] [address]Tf.Phillip ChangGlucose [Mass/Vol]90 mg/iBPrmqku34-589 The [facility] CenterComment on above:Performed By: #### BMP ####[facility] [address] [place] [address]Dr.Phillip Mazariegos Potassium [Moles/Vol]4.4 mmol/LNormal3.5-5.1The [facility] HospitalComment on above:Performed By: #### BMP ####[facility] [address] [place] [address]Dr.Phillip ChangSodium [Moles/Vol]144 mmol/LNormal 136-145The [facility] CenterComment on above:Performed By: #### BMP ####[facility] F[address]rocliak[address] [place] [address]Dr.Phillip ChangUrea nitrogen [Mass/Vol]24.0 mg/dLCritically high7.0-18.0The [facility] CenterComment on above:Performed By: #### BMP ####[facility] [address]rsoeuot[address] [place] [address]Dr.Phillip ChangUrea nitrogen/Creatinine [Mass ratio] 28.2 mg/mgNormalThe [facility] CenterComscheurer hospital on above:Performed By: #### BMP ####[facility] [address]iix[address] [place], [place] [address]Dr. Rerebrent Limice Visit (Cardiology)on 66-92-3428Rqtsvd-up visit Diagnoses/Problems Assessed Chronic systolic congestive heart [...] Metabolic Panel; Status:Active - Retrospective Authorization; Requested for:[id number]; Echocardiogram; Status:Hold For - Scheduling,Retrospective Authorization; Requested for:[id number]; Class 2 obesity with body mass index (BMI) of 39.0 to 39.9 in adult Healthy Weight Tips; Status:Complete - Retrospective Authorization; Done: [id number] Some eating tips that can help you lose weight.; Status:Complete - Retrospective Authorization; Done: [id number] Patient Instructions Please bring all medicines, vitamins, [...] AICD, device is assessed by electrophysiology at [facility] 3?cardiac catheterization 7 years ago at [facility] was normal 4?extreme fatigue of [...] negative for complaint. Vitals Vital Signs Recorded: [id number] 11:16AM Heart Rate62, R Radial Byrqbszk096, LUE, Sitting Sqvbqxfli16, LUE, Sitting Height5 ft Twkrla245 lb 5 oz BMI Svyhbvthbw84.32 kg/m2 BSA Calculated1.87 Tobacco Useb) No Falls [...] normal (more content not included)...Normal TouchworksTobacco Screening.on 32-84-2332Thng risk assessmenta) No falls within the last yearF[facility] [facility] DO Work Phone: Tobacco use status CPHSb) NoMShrin[facility] [place] [address] DO Work Phone: XR LSPINE MIN 4 VIEWSon 37-12-3453AW LSPINE MIN 4 VIEWSEXAMINATION: XR LSPINE MIN [...] Electronically authenticated by: MAREN MARTEL Date: 2022-02-05 07:27[facility]CC[facility] LimaPROF CHEM 8 (BAS METB)on 85-48-5075Ernga gap [Moles/Vol]12.0 mmol/LNormalTogus Va Medical CenterComment on above:Performed By: #### BMP #### [facility] [address] [place] [address] Dr. Phillip MazariegosCalcium [Mass/Vol]9.1 mg/dLNormal8.5-10.1[facility] Comment on above:Performed By: #### BMP #### [facility] [address] [place] [address] Dr. Phillip MazariegosChloride [Moles/Vol]107 mmol/XImaseg09-732DosTogus Va Medical Center Comment on above:Performed By: #### BMP #### [facility] [address] [place] [address] [address] Phillip MazariegosCO2 [Moles/Vol]27.0 mmol/NXsafkt63.0-32.0[facility] Comment on above:Performed By: #### BMP #### [facility] [address] [address] [address] Phillip MazariegosCreatinine [Mass/Vol]0.89 mg/dLNormal0.55-1.02The [facility] CenterComment on above:Performed By: #### BMP #### [facility] [address] [place] [address] Dr. Phillip MarreroGFR-AF BAHRAINI>60Normal>=60The [facility] CenterComment on above:Performed By: #### BMP #### [facility] [address] [address] [address] Phillip MarreroGFR-NON AF BAHRAINI>60Normal>=60The [facility] CenterComment on above:Performed By: #### BMP #### [facility] [address] [place] [address] Dr. Phillip MazariegosGlucose [Mass/Vol]109 mg/dLCritically opev51-712Qxx [facility] CenterComment on above:Performed By: #### BMP #### [facility] [address] [place] [address] Dr. Phillip MazariegosPotassium [Moles/Vol]4.0 mmol/LNormal3.5-5.1The [facility] Comment on above:Performed By: #### BMP #### [facility] [address] [place] [address] Dr. Phillip MazariegosSodium [Moles/Vol]142 mmol/SFpebmn443-795Pno [facility] Comment on above:Performed By: #### BMP #### [facility] [address] [place] [address] Dr. Phillip MazariegosUrea nitrogen [Mass/Vol]19.0 mg/dLCritically high7.0-18.0The [facility] CenterComment on above:Performed By: #### BMP #### [facility] [address] [place] [address] Dr. Phillip Valdivia nitrogen/Creatinine [Mass ratio]21.3 mg/mgNormalThe [facility] CenterComment on above:Performed By: #### BMP #### [facility] [address] [place] [address] Dr. Phillip Wilde.on 60-44-3861Yeumw depression screening assessmentNoJames [place] [address] DO Work Phone: Adult depression screening assessmentYeScott [place] [address] DO Work Phone: Fall risk assessmenta) No falls within the last year [place] [address] DO Work Phone: Tobacco use status CPHSb) NoMMarco [place] [address] DO Work Phone: Tobacco Screening.3-Nearly every dayJames [place] [address] DO Work Phone: Tobacco Screening.0-Not at allEmily [place] [address] DO Work Phone: Tobacco Screening.Very DifficultEm[place] [address] DO Work Phone: CULTURE URINEon 42-07-8967TFXYTZW URINEIsolate 1 Proteus mirabilis >100,000 cfu/mL of [...] 128 R F Trimethoprim/Sulfamethoxazole <=20 S FNormalThe [facility] Medical CenterComment on above:Performed By: #### URCX ####[facility] [address] [place] [address]Dr. Phillip Mendoza AUTO DIFFon 45-57-3306WJQF #0.0 103/ulNormal0.0-0.1The [facility] CenterComment on above:Performed By: #### CBC #### [facility] [address] [address] [address] Phillip MazariegosBasophils/100 WBC (Bld)0.4 %Normal0.2-2.0[facility] Comment on above:Performed By: #### CBC #### [facility] [address] [address] [address] Phillip Recinos #0.1 103/ulNormal0.0-0.7The [facility] CenterComment on above: Performed By: #### CBC #### [facility] [address] [address] [address] Phillip Marreroosinophils/100 WBC (Bld)1.9 %Normal0.9-7.0[facility] Comment on above:Performed By: #### CBC #### [facility] [address] [address] [address] Phillip Marrerorythrocyte distribution width (RBC) [Ratio]13.4 %Nkolgk58.0-15.0 The [facility] CenterComment on above:Performed By: #### CBC #### [facility] [address] [address] [address] Phillip MazariegosHematocrit (Bld) [Volume fraction]39.6 %Oalhsw26.0-48.0[facility] Medical CenterComment on above:Performed By: #### CBC #### [facility] [address] [address] [address] Phillip MazariegosHemoglobin (Bld) [Mass/Vol]13.0 g/tBZrxrco51.0-16.0The [facility] CenterComment on above:Performed By: #### CBC #### [facility] [address] [place] [address] Dr. Phillip Menjivar #0.04 10e3/ulCritically high0.00-0.03The [facility] Comment on above:Performed By: #### CBC #### [facility] [address] [place] [address] Dr. Phillip Menjivar %0.5 %Normal0.0-0.5The [facility] CenterComment on above: Performed By: #### CBC #### [facility] [address] [place] [address] Dr. Phillip Schmidt #1.9 103/ulNormal1.2-3.8The [facility] CenterComment on above:Performed By: #### CBC #### [facility] [address] [place] [address] Dr. Phillip Rodashocytes/100 WBC (Bld)26.2 %Vhilcn41.5-60.0The [facility] CenterComment on above:Performed By: #### CBC #### [facility] [address] [place] [address] Dr. Phillip Izaguirre DIFF REQNONormalThe [facility] CenterComment on above: Performed By: #### CBC #### [facility] [address] [place] [address] Dr. Phillip Goode (RBC) [Entitic mass]28.8 gfPmckly76.7-34.0The [facility] CenterComment on above:Performed By: #### CBC #### [facility] [address] [place] [address] Dr. Phillip Goode (RBC) [Mass/Vol]32.8 g/uOUuhayl42.9-35.2The [facility] CenterComment on above:Performed By: #### CBC #### [facility] [address] [place] [address] Dr. Phillip Goode (RBC) [Entitic vol]87.8 qDWorgtd47.0-99.0The [facility] CenterComment on above:Performed By: #### CBC #### [facility] [address] [place] [address] Dr. Phillip Dominguez #0.5 103/ulNormal0.3-0.8The [facility] CenterComment on above:Performed By: #### CBC #### [facility] [address] [place] [address] Dr. Phillip Kasperocytes/100 WBC (Bld)6.9 %Normal1.7-12.0The [facility] Comment on above:Performed By: #### CBC #### [facility] [address] [place] [address] Dr. Phillip Alonso #4.7 103/ulNormal1.4-6.5The [facility] CenterComment on above:Performed By: #### CBC #### [facility] [address] [place] [address] Dr. Phillip Dukeutrophils/100 WBC (Bld)64.1 %Tslhak04.0-75.0The [facility] CenterComment on above:Performed By: #### CBC #### [facility] [address] [place] [address] Dr. Phillip Sparks mean volume (Bld) [Entitic vol]9.6 fLNormal9.5-13.5The [facility] CenterComment on above:Performed By: #### CBC #### [facility] [address] [place] [address] Dr. Phillip AnnT298 103/vaIhcuvu674-121Bim [facility] CenterComment on above: Performed By: #### CBC #### [facility] [address] [place] [address] Dr. Phillip VivasC4.51 106/ulNormal4.20-5.40The [facility] CenterComment on above:Performed By: #### CBC #### [facility] [address] [place] [address] Dr. Phillip MazariegosWBC7.3 103/ulNormal4.0-11.0The [facility] CenterComment on above: Performed By: #### CBC #### [facility] [address] [place] [address] Dr. Phillip MazariegosPROF CHEM 8 (BAS METB)on 77-31-4298Hlbey gap [Moles/Vol]11.7 mmol/LNormalThe [facility] CenterComment on above:Performed By: #### TSH, BMP #### [facility] [address] [place] [address] Dr. Phillip MazariegosCalcium [Mass/Vol]8.8 mg/dLNormal8.5-10.1The [facility] Comment on above:Performed By: #### TSH, BMP #### [facility] [address] [place] [address] Dr. Phillip MazariegosChloride [Moles/Vol]103 mmol/SLxgncy74-641Amn [facility] Comment on above:Performed By: #### TSH, BMP #### [facility] [address] [place] [address] Dr. Phillip MazariegosCO2 [Moles/Vol]28.0 mmol/FXqtpxd56.0-32.0The [facility] Comment on above:Performed By: #### TSH, BMP #### [facility] [address] [place] [address] Dr. Phillip MazariegosCreatinine [Mass/Vol]1.02 mg/dLNormal0.55-1.02The [facility] CenterComment on above:Performed By: #### TSH, BMP #### [facility] [address] [place] [address] Dr. Phillip MarreroGFR-AF BAHRAINI>60Normal>=60The [facility] CenterComment on above:Performed By: #### TSH, BMP #### [facility] [address] [place] [address] Dr. Phillip MarreroGFR-NON AF OPQAIGIC23 mL/min/1.73q1Yzvokyxsei low>=60The [facility] CenterComment on above:Performed By: #### TSH, BMP #### [facility] [address] [address] [address] Phillip MazariegosGlucose [Mass/Vol]119 mg/dLCritically yfhf57-905Ttm [facility] CenterComment on above:Performed By: #### TSH, BMP #### [facility] [address] [place] [address] Dr. Phillip MazariegosPotassium [Moles/Vol]3.7 mmol/LNormal3.5-5.1The [facility] Comment on above:Performed By: #### TSH, BMP #### [facility] [address] [place] [address] Dr. Phillip MazariegosSodium [Moles/Vol]139 mmol/IJkdyjx882-834Zct [facility] Comment on above:Performed By: #### TSH, BMP #### [facility] [address] [place] [address] Dr. Phillip MazariegosUrea nitrogen [Mass/Vol]19.0 mg/dLCritically high7.0-18.0The [facility] CenterComment on above:Performed By: #### TSH, BMP #### [facility] [address] [place] [address] Dr. Phillip Valdivia nitrogen/Creatinine [Mass ratio]18.6 mg/mgNoTwin City HospitalComment on above:Performed By: #### TSH, BMP #### [facility] [address] [place] [address] Dr. Phillip Harrison 14-26-8507MBD1.616 uIU/mLNormal0.358-3.740The [facility] CenterComment on above:Performed By: #### TSH, BMP #### [facility] [address] [place] [address] Dr. Phillip Blanca [facility] BELOWSCCI Hospital LimaComment on above: Result Comment: <0.34 UIU/ml HYPERTHYROID 0.34-5.60 UIU/ml EUTHYROID >5.60 UIU/ml HYPOTHYROIDPerformed By: #### TSH, BMP #### [facility] [address] [place] [address] Dr. Phillip Taylor (CLEAN/CATCH) BIAS CUTTER/MICRO IF IND.on 77-92-7545Qckukbepz Ql (U) NegativeNormalNEGATIVEMercy Health St. [facility] HospitalComment on above:Performed By: #### UACSIND ####[facility] [address]etcz[address] [place], [place] [address]Dr. Yilan ChangClarity (U)SL CLOUDYAbnormalCLEMercy Memorial Hospital Comment on above:Performed By: #### UACSIND ####[facility] [address]tyhwnqzz[address] [place], [place] [address]Dr. Yilan ChangColor (U)YELLOWNormalYELLOW [facility] HospitalComment on above:Performed By: #### UACSIND ####[facility] Bscyeiziqz[address] [place], [place] [address]Dr. Yilan Mazariegos Glucose Ql (U)NegativeNormalNEGATIVEMercy Health St. [facility] HospitalComment on above: Performed By: #### UACSIND ####[facility] [address]oeclxbxo[address] [place], [place] [address]Dr. Yilan ChangHemoglobin Ql (U)NegativeNormalNEGATIVE [facility] HospitalComment on above:Performed By: #### UACSIND ####[facility] [address]obvx[address]zta[address] [place], [place] [address]Dr. Yilan Mazariegos Ketones Ql (U)NegativeNormalNEGATIVETogus Va Medical CenterComment on above: Performed By: #### UACSIND ####[facility] [address]xyhsiopij[address] [place], [place] [address]Dr. Yilan ChangLEUKOCYTESNegativeNormalNEGATIVEMercy Health St. [facility] HospitalComment on above:Performed By: #### UACSIND ####[facility] [address]cpkuxcw[address] [place], [place] [address]Dr. Yilan Mazariegos Nitrite Ql (U)NegativeNormalNEGATIVEMercy Health St. [facility] HospitalComment on above: Performed By: #### UACSIND ####[facility] [address]satxjpw[address] [place], [place] [address]Dr. Yilan ChangpH (U)6.0 [pH]Normal5-9[facility] HospitalComment on above:Performed By: #### UACSIND ####[facility] [address] [place] [address]Dr. Phillip MazariegosSPEC GRAVITY >=1.300Fdmqoidp0.005-<=1.025The [facility] CenterComment on above:Performed By: #### UACSIND ####[facility] [address]uhdc[address] [place] [address]Dr. Phillip Taylor PROTEINNegativeNormalNEGATIVE/ TRACEThe [facility] River HospitalComment on above:Performed By: #### UACSIND ####[facility] [address]im[address] [place] [address]Dr. Phillip MazariegosUR MICRO IND INDICATEDSCCI Hospital LimaComment on above:Performed By: #### UACSIND ####[facility] [address]mlwkyvn[address] [place], [place] [address]Dr. Phillip Polkbilinogen Qn (U)0.2 {Trish'U}/dLNormal0.2 - 1.0The [facility] CenterComment on above:Performed By: #### UACSIND ####[facility] Ipxzzjilh[address] [place], [place] [address]Dr. Phillip Finn MICROSCOPIC ONLYon 49-72-8066KMZFLEHLLLEIBUrodvqttSAYM SEENTogus Va Medical Center Comment on above:Performed By: #### UMICRO #### [facility] [address] [place] [address] Dr. Phillip Pmeberton identified Cx Nom (U)[facility] SystemComment on above:Performed By: #### UMICRO #### [facility] [address] [address] [address] Phillip Jean-Baptiste SEENNormalNONE SEENTogus Va Medical CenterComment on above:Performed By: #### UMICRO #### [facility] [address] [address] [address] Phillip Trivediystals LM Nom (Urine sed)NONE SEENNormalNONE SEENTogus Va Medical CenterComment on above:Performed By: #### UMICRO #### [facility] [address] [address] [address] Fisher ChangEpithelial cells LM Ql (Urine sed)FEWAbnormalNONE SEEN /RAREThe [facility] CenterComment on above:Performed By: #### UMICRO #### [facility] [address] [address] [address] Phillip MazariegosMUCOUSTRACEAbnormalNONE SEENThe [facility] CenterComment on above:Performed By: #### UMICRO #### [facility] [address] [address] [address] Phillip MazariegosRBCNONE SEENAbrmal0-2The [facility] CenterComscheurer hospital on above: Performed By: #### UMICRO #### [facility] [address] [address] [address] Phillip MazariegosWBC0-2AbnormalNONE SEENThe [facility] CenterComment on above: Performed By: #### UMICRO #### [facility] [address] [place] [address] Dr. Phillip MazariegosXR CHEST 2 Von [id number] CHEST 2 VEXAM: XR CHEST 2 V EXAM: XR CHEST 2 V INDICATION: 65 years old Female Dyspnea COMPARISON: 03/14/20 FINDINGS: The cardiac silhouette is normal. There is no pulmonary edema. The lungs are clear. There is no pneumonia. There is no pneumothorax. There is no abnormal foreign body.pacer noted IMPRESSION: There is no acute abnormality. Electronically authenticated by: ELAINA ARRIAZA Date: 2021-09-07 15:03[facility] LimaRadiologyon 06-85-1894TC Chest 2 ViewsNormalMP-[facility] 320 DO Work Phone: Laboratory - Chemistry and Chemistry - challengeon 59-65-1921Sbova gap [Moles/Vol]11 mmol/L10 - 20MP-[facility]-[place] 250 DO Work Phone: Calcium [Mass/Vol]9.3 mg/dL8.6 - 10.3MP[facility] Work Phone: Chloride [Moles/Vol]107 mmol/L98 - 107MP-[facility] 250 DO Work Phone: [phone] [Moles/Vol]27 mmol/L21 - 32MP-[facility] 250 DO Work Phone: [phone] [Mass/Vol]0.79 mg/dLSee BelowMP-[place] [address] DO Work Phone: [phone] on above:Reference Range: 0.50 - 1.05Glucose [Mass/Vol]98 mg/dL74 - 99MP-[place] [address] DO Work Phone: [phone] [Moles/Vol]3.7 mmol/L3.5 - 5.3MP-[place] [address] DO Work Phone: [phone] [Moles/Vol]141 mmol/L136 - 145MP-[place] [address] DO Work Phone: [phone] nitrogen [Mass/Vol]20 mg/dL6 - 23MP-[place] [address] DO Work Phone: Laboratory - Coagulationon 14-93-2043eJVV Coag (PPP) [Time]32 s26 - 39MP-[place] [address] DO Work Phone: Comment on above:THE APTT IS NO LONGER USED FOR MONITORING UNFRACTIONATED HEPARIN THERAPY. FOR MONITORING HEPARIN THERAPY, USE THE HEPARIN ASSAY.INR Coag (PPP) [Relative time]1.0 {INR}0.9 - 1.1MP-[place] [address] DO Work Phone: PT Coag (PPP) [Time]11.9 s9.8 - 13.4MP-[place] [address] DO Work Phone: Laboratory - Hematology and Cell countson 08-02-2021 Erythrocyte distribution width (RBC) [Ratio]13.3 %See Below-[place] [address] DO Work Phone: Comment on above:Reference Range: 11.5 - 14.5 Hematocrit (Bld) [Volume fraction]37.9 %See BelowFerry County [facility] Hospital [facility]-[place] 250 DO Work Phone: Comment on above:Reference Range: 36.0 - 46.0 Hemoglobin (Bld) [Mass/Vol]12.7 g/dLSee [facility]-[place] 250 DO Work Phone: Comment on above:Reference Range: 12.0 - 16.0MCHC (RBC) [Mass/Vol]33.5 g/dLSee BelowFerry County Memorial Hospital [facility]-[place] 250 DO Work Phone: Comment on above:Reference Range: 32.0 - 36.0MCV (RBC) [Entitic vol]88 fL80 - 100[facility] 250 DO Work Phone: Platelets (Bld) [#/Vol]168 10*3/uL150 - 450[facility] 250 DO Work Phone: RBC (Bld) [#/Vol]4.33 {x10E12/L}See [facility]-[place] 250 DO Work Phone: Comment on above:Reference Range: 4.00 - 5.20WBC (Bld) [#/Vol]7.3 10*3/uL4.4 - 11.3MSh[facility]ers [facility]-[place] 250 DO Work Phone: No Panel Informationon 08-02-2021 [email or web address]?RetrieveTestByDateTime?Patien wER=[id number]&Da te=02-08-2021&Time=07%3a58%3a03%3a00&TestType=ECG&Site=11&OutputType=PDF&Ext=PDF [facility]-[place] 250 DO Work Phone: [phone]-ywuuje ventricular-paced rhythmFerry County Memorial Hospital [facility]-[place] 250 DO Work Phone: FdagrhqhYT-[place] [facility]-[place] 250 DO Work Phone: [phone] 1MP-[facility]-[place] 250 DO Work Phone: [phone] 1M-[facility]-[place] 250 DO Work Phone: [phone] 1M-[facility]-[place] 250 DO Work Phone: [phone] [facility]-[place] 250 DO Work Phone: [phone] [facility]-[place] 250 DO Work Phone: [phone] 1M-[facility]-[place] 250 DO Work Phone: [phone] 1M-[facility]-[place] 250 DO Work Phone: [phone] 1M-[facility]-[place] 250 DO Work Phone: [phone] [facility]-[place] 250 DO Work Phone: [phone] [facility]-[place] 250 DO Work Phone: [phone] [facility]-[place] 250 DO Work Phone: [phone] [facility]-[place] 250 DO Work Phone: [phone] [facility]-[place] 250 DO Work Phone: [phone] [facility]-[place] 250 DO Work Phone: [phone] {mL/min/1.73m2}>90MP-[facility]-[place] 250 DO Work Phone: Comment on above:CALCULATIONS OF ESTIMATED GFR ARE PERFORMED USING THE 2020 CKD-EPI STUDY REFIT EQUATION WITHOUT THERACE VARIABLE FOR THE IDMS-TRACEABLE CREATININE METHODS.https://jasn.asnjournals.org/content//ASN.0935691473 Radiologyon 57-75-2477MZ Chest 2 ViewsNormalMP-[facility]-[place] 250 DO Work Phone: [phone]-63 SOFIAOrdered By: Daphne Mayes on 07-31-2021 SARS-CoV+SARS-CoV-2 (COVID-19) Ag IA.rapid Ql (Resp)NegativeNegativeOhio State University Wexner Medical CenterComment on above:This is a duplicate Gretchen SARS Antigen (RUSTAM) result to be used for statistical tracking purpose only.No Panel InformationOrdered By: Daphne Mayes on 53-24-8142ZIXU Antigen (LFIA)[facility] Medical CenterBasophils Auto (Bld) [#/Vol]Ordered By: Daphne Mayes on 30-90-2418Vwoufpzzm (Bld) [#/Vol]0.0 10*3/uL0.0-0.2FUniversity Hospitals Portage Medical CenterBasophils/100 WBC Auto (Bld)Ordered By: Daphne Mayes on 07-18-2021 Basophils/100 WBC (Bld)0.5 %[facility] CenterBlood hemoglobin measurement (mass/volume)Ordered By: Daphne Mayes on 91-44-2809Iwnlkifmqk (Bld) [Mass/Vol]13.2 g/dL11.8-15.4FUniversity Hospitals Portage Medical CenterBlfederal correction institution hospital leukocytes automated count (number/volume)Ordered By: Daphne Mayes on 99-00-6117VAN (Bld) [#/Vol]6.3 10*3/uL4.5-11.0[facility] CenterCOVID-19 Positive/NegativeOrdered By: Daphne Mayes on 69-85-2835GBXI-CoV-2 (COVID-19) N gene MELL+probe Ql (Resp)PositiveNegativeOhio State University Wexner Medical CenterComment on above:Positive results will only be called to Providers for the following groups of patients: Pre-Surgical Testing, Emergency Room, and Inpatients.Testing for SARS-CoV-2 by RT-PCRThis test was developed and its performance characteristics determined by [employer] ([employer]) and validated at the [facility]. This test has not been [...] rate.predicted panel (S/P/Bld)Ordered By: Daphne Mayes on 49-42-5377Nxiysazbag [Mass/Vol]0.76 mg/dL0.44-1.03[facility] CenterEosinophils Auto (Bld) [#/Vol]Ordered By: Daphne Mayes on 53-21-3556Mpfqvoikyqc (Bld) [#/Vol]0.2 10*3/uL0.0-0.45[facility] CenterEosinophils/100 WBC Auto (Bld) Ordered By: Daphne Mayes on 91-84-9332Tehkevhjkji/100 WBC (Bld)2.7 %[facility] Medical CenterErythrocyte distribution width Auto (RBC) [Ratio]Ordered By: Daphne Mayes on 85-18-3968Adqjdjzzbcb distribution width (RBC) [Ratio]14.1 % 11.9-15.3FUniversity Hospitals Portage Medical CenterEstimated glomerular filtration rate (GFR) non- AmericanOrdered By: Daphne Mayes on 50-50-9358MJO/1.73 sq M.predicted among non-blacks MDRD (S/P/Bld) [Vol rate/Area]> 60 mL/MinOhio State University Wexner Medical CenterHematocrit Auto (Bld) [Volume fraction]Ordered By: Daphne Mayes on 85-17-8461Jjfcinapbs (Bld) [Volume fraction]39.3 %34.0-46.4FUniversity Hospitals Portage Medical CenterLaboratory - CoagulationOrdered By: Daphne Mayes on 90-81-3910BV Coag (PPP) [Time]12.7 s9.0-12.9[facility] Laboratory - Hematology and Cell countsOrdered By: Daphne Mayes on 07-18-2021 Nucleated RBC/100 WBC (Bld) [Ratio]0.2 %0-0.5FUniversity Hospitals Portage Medical Center Lymphocytes Auto (Bld) [#/Vol]Ordered By: Daphne Mayes on 93-92-5847Nboofdnuzpi (Bld) [#/Vol]1.8 10*3/uL1.00-4.8[facility] CenterLymphocytes/100 WBC Auto (Bld)Ordered By: Daphne Mayes on 94-04-9284Nraedaxrfok/100 WBC (Bld)28.3 %[facility] HospitalH Auto (RBC) [Entitic mass]Ordered By: Daphne Mayes on 58-76-6730AAK (RBC) [Entitic mass]29.3 pg24.7-34.3FUniversity Hospitals Portage Medical CenterMCHC Auto (RBC) [Mass/Vol]Ordered By: Daphne Mayes on 17-54-6013CVPA (RBC) [Mass/Vol]33.5 g/dL32.0-35.0[facility] CenterMCV Auto (RBC) [Entitic vol]Ordered By: Daphne Mayes on 02-63-1284EIS (RBC) [Entitic vol] 87.5 wU41-695GuaxxgvabOhio State University Wexner Medical CenterMonocytes Auto (Bld) [#/Vol] Ordered By: Daphne Mayes on 30-69-7280Jcswziasr (Bld) [#/Vol]0.5 10*3/uL0.0-0.8 [facility] CenterMonocytes/100 WBC Auto (Bld)Ordered By: Daphne Mayes on 76-56-3510Zvxlfirts/100 WBC (Bld)7.5 %[facility] Neutrophils Auto (Bld) [#/Vol]Ordered By: Daphne Mayes on 57-73-4044Kspkuceqnoc (Bld) [#/Vol]3.9 10*3/uL1.8-7.7FUniversity Hospitals Portage Medical CenterNeutrophils/100 WBC Auto (Bld)Ordered By: Daphne Mayes on 78-50-1613Dtahwdglzqx/100 WBC (Bld)61.0 % [facility] CenterNo Panel InformationOrdered By: Daphne Mayes on 69-67-9327Ndimzeixv GFR ()> 60 mL/MinOhio State University Wexner Medical CenterComment on above:GFR estimated reference range: According to KDOQI guidelines, <60 ml/min/1.73m2 is sufficient todiagnose a patient with chronic kidney disease.Pharmacy Creatinine Clearance (ChemN/AFUniversity Hospitals Portage Medical CenterPlatelet mean volume Auto (Bld) [Entitic vol]Ordered By: Daphne Mayes on 69-96-4031Eswkwwec mean volume (Bld) [Entitic vol]8.5 fL6.3-10.7FUniversity Hospitals Portage Medical CenterPlatelet poor plasma international normalized ratio (INR) by coagulation assay (relatOrdered By: Daphne Mayes on 69-13-8449TUP Coag (PPP) [Relative time]1.1 {INR}[facility] CenterComment on above:INR Therapeutic Range A) Pre- and [...] Auto (Bld) [#/Vol]Ordered By: Daphne Mayes on 24-24-8354Vmtbgufws (Bld) [#/Vol]282 10*3/sG200-373VakgssiouOhio State University Wexner Medical CenterRBC Auto (Bld) [#/Vol]Ordered By: Daphne Mayes on 19-99-9134KKQ (Bld) [#/Vol]4.49 10*6/uL3.60-5.00[facility] Southeast Ohioerum or plasma calcium measurement (mass/volume)Ordered By: Daphne Mayes on 96-09-6142Vlaviat [Mass/Vol]9.3 mg/dL8.2-10.2FGreene Memorial Hospitalerum or plasma chloride measurement (moles/volume)Ordered By: Daphne Mayes on 91-74-9949Zmmseiqv [Moles/Vol]103 mmol/H68-544XzgsubzbcSelect Medical Specialty Hospital - Southeast Ohioerum or plasma glucose measurement (mass/volume)Ordered By: Daphne Mayes on 49-43-2928Vmmkcop [Mass/Vol]118 mg/cX91-704GmtbkqyzkOhio State University Wexner Medical Center Comment on above:ADA recommended reference rangeRandom Glucose Reference Range is dependent on time and content of last meal. Glucose of more than 200 mg/dL in a nonstressed, ambulatory subject supports the diagnosisof Diabetes Mellitus. Serum or plasma potassium measurement (moles/volume)Ordered By: Daphne Mayes on 53-14-6938Jokwqxkux [Moles/Vol]3.9 mmol/L3.5-5.1FGreene Memorial Hospitalerum or plasma sodium measurement (moles/volume)Ordered By: Daphne Mayes on 28-49-6453Xgvfpn [Moles/Vol]139 mmol/Q618-000AnrrhhtofOhio State University Wexner Medical Center Serum or plasma total carbon dioxide measurement (moles/volume)Ordered By: Daphne Myaes on 81-90-7444JS4 [Moles/Vol]26.2 mmol/L22.0-30.0[facility] Southeast Ohioerum or plasma urea nitrogen measurement (mass/volume)Ordered By: Daphne Mayes on 12-01-8257Gjoc nitrogen [Mass/Vol]16 mg/dL9-23[facility] Medical CenterCBCon 88-86-6847Behvrnipuvy distribution width (RBC) [Ratio]13.4 %Normal 11.5 - 14.5[facility] Hospital at DenvilleComment on above:Performed By: #### CBC #### [address] [id number] (Bld) [Volume fraction]41.9 %Aeegxf81.0 - 46.0[facility] at DenvilleComment on above:Performed By: #### CBC #### [address] [id number] (Bld) [Mass/Vol]13.3 g/uRRmvhue78.0 - 16.0[facility] at DenvilleComment on above:Performed By: #### CBC #### [address] [id number] (RBC) [Mass/Vol]31.7 g/dLLow32.0 - 36.0[facility] at DenvilleComment on above:Performed By: #### CBC #### [address] [id number] (RBC) [Entitic vol]91 oPPacmoh29 - 100[facility] Mary'S HospitalComment on above:Performed By: #### CBC #### [address] [id number] (Bld) [#/Vol]205 10*3/iYZcbcyb096 - 450[facility] Mary'S HospitalComment on above:Performed By: #### CBC #### [address] [id number] (Bld) [#/Vol]4.62 x10E12/LNormal4.00 - 5.20[facility] at DenvilleComment on above:Performed By: #### CBC #### [address] [id number] (Bld) [#/Vol]7.4 10*3/uLNormal4.4 - 11.3[facility] at DenvilleComment on above:Performed By: #### CBC #### [address] [id number] 77-76-6811Pbnpjaxskj [Mass/Vol]0.77 mg/dLNormal 0.50 - 1.05[facility] Mary'S HospitalComment on above:Performed By: #### CREAT #### [address] [id number] [Mass/Vol]mg/dLNormal>60UH [facility] Mary'S HospitalComment on above:Result Comment: CALCULATIONS OF ESTIMATED GFR ARE PERFORMED USING THE MDRD STUDY EQUATION FOR THE IDMS-TRACEABLE CREATININE METHODS. CLIN CHEM 2007;53:766-72Performed By: #### CREAT #### [address] [id number] PANELon 23-72-2235Edsgt gap [Moles/Vol]12 mmol/L Goiufd85 - 20[facility] at DenvilleComment on above:Performed By: #### ELECT #### [address] [id number] [Moles/Vol]107 mmol/CZdpkli68 - 107[facility] at DenvilleComment on above:Performed By: #### ELECT #### [address] [id number] (Bld) [Moles/Vol]28 mmol/CXobsko45 - 32[facility] at DenvilleComment on above:Performed By: #### ELECT #### [address] [id number] [Moles/Vol]3.7 mmol/LNormal3.5 - 5.3[facility] Mary'S HospitalComment on above:Performed By: #### ELECT #### [address] [id number] [Moles/Vol]143 mmol/TGntesx976 - 145[facility] at DenvilleComment on above:Performed By: #### ELECT #### [address] [id number] NITROGENon 31-30-8266Ctsl nitrogen [Mass/Vol]17 mg/dL Normal6 - 23[facility] at DenvilleComment on above:Performed By: #### UREA #### [address] [id number] 15-89-8414FRTLWRETyvxa Visit (CARDMN) NYA BELL ([id number]) 1955 F Date Time Provider Department 11/13/18 [...] 2018 2:31 PM Referring Provider: JONA WAN [[id number]] Allergies As of Date: 11/13/2018 Noted Allergy [...] FOR* Encounter Status:Closed by ABA WILLIAM on 11/13/18[facility] [id number] ID: [id number] Author: Aba Rodriguez RUST Service: ? Author Type: ? Type: Progress [...] Aba Rodriguez RUST November 13, 2018 2:31 [facility] HospitalvelandCoding Summary.on 09-38-7832Goqxdc Summary.CODING DATE: 07/02/2017 FINAL [facility] STATUS: Home (Routine DC) PAYOR: Medicare APC [...] By: Rosa Stubbs Date Saved: 07/02/2017 08:19 [facility] Vital Signs Date TimeVital SignValuePerforming MirbnjlbrNvdkrjqc84-80-2248 10:170400Body ynvqzn681.22 cmAnupam Pereira MD Work Phone: [facility]10-03-2025 10:17-0400 Body mass index (BMI) [Ratio]37.6 kg/m2QilwccAnupam Pereira MD Work Phone: [facility]10-03-2025 10:17-0400 Body woxftr40.91 kgAnupam Pereira MD Work Phone: [facility]10-03-2025 10:17-0400 Diastolic blood pelnftnl42 mm[Hg]Anupam Pereira MD Work Phone: [phone]10-03-2025 10:17-0400 Heart rate80 /minAnupam Pereira MD Work Phone: [facility]10-03-2025 10:17-0400 Systolic blood pkrhmlul441 mm[Hg]Anupam Pereira MD Work Phone: [phone]08-29-2025 13:06-0400 Body rpjyiy410.22 cmAnupam Pereira MD Work Phone: [phone] [address]08-29-2025 13:06-0400 Body mass index (BMI) [Ratio]38 kg/g4TxjoiuAnupam Pereira MD Work Phone: [phone]08-29-2025 13:06-0400 Body cuqcsjmjaut31 [degF]Anupam Pereira MD Work Phone: [phone]08-29-2025 13:06-0400 Body laeghl18.82 kgAnupam Pereira MD Work Phone: [phone] [address]08-29-2025 13:06-0400 Diastolic blood gagvknnx73 mm[Hg]Anupam Pereira MD Work Phone: [phone] [address]08-29-2025 13:06-0400 Heart rate77 /Briana Pereira MD Work Phone: [phone] [address]08-29-2025 13:06-0400 Respiratory rate14 /Briana Pereira MD Work Phone: [phone]08-29-2025 13:06-0400 SaO2% (BldA) [Mass fraction]95 %Anupam Pereira MD Work Phone: [phone] [place], [place] 3555308-29-2025 13:06-0400 Systolic blood bshusrsp686 mm[Hg]Anupam Pereira MD Work Phone: [phone] [address]06-04-2025 10:07-0400 Body skojms045.4 cmLupe Rosado MD Work Phone: [facility]06-04-2025 10:07-0400 Body mass index (BMI) [Ratio]38.08 kg/b2FvaujuLupe Rosado MD Work Phone: [facility]06-04-2025 10:07-0400 Body rfvnys92.45 kgLupe Rosado MD Work Phone: [facility]06-04-2025 10:07-0400 Diastolic blood qabtwyik33 mm[Hg]Lupe Rosado MD Work Phone: [facility]06-04-2025 10:07-0400 Heart rate60 /Gigi Rosado MD Work Phone: [facility]06-04-2025 10:07-0400 Systolic blood vjripvgv599 mm[Hg]Lupe Rosado MD Work Phone: [address] [place], [place] 7308903-24-2025 08:43-0400 Body bxwqul550.22 cmAnupam Pereira MD Work Phone: [phone] [address]03-24-2025 08:43-0400 Body mass index (BMI) [Ratio]39.4 kg/n1RmjkbsAnupam Pereira MD Work Phone: [phone] [address]03-24-2025 08:43-0400 Body krxyct23.7 kgAnupam Pereira MD Work Phone: [phone] [place], [place] 1448103-24-2025 08:43-0400 Diastolic blood tedfhory96 mm[Hg]Anupam Pereira MD Work Phone: [phone] [address]03-24-2025 08:43-0400 Heart rate70 /Briana Pereira MD Work Phone: [phone] [address]03-24-2025 08:43-0400 Respiratory rate16 /Briana Pereira MD Work Phone: [phone] [address]03-24-2025 08:43-0400 SaO2% (BldA) [Mass fraction]99 %Anupam Pereira MD Work Phone: [phone] [address]03-24-2025 08:43-0400 Systolic blood nowzmvqc208 mm[Hg]Anupam Pereira MD Work Phone: [phone] [address]02-10-2025 13:25-0500 Body jesaqx610.22 cmAnupam Pereira MD Work Phone: [phone] [place], [place] 3555302-10-2025 13:25-0500 Body mass index (BMI) [Ratio]39.9 kg/y8MpakwwAnupam Pereira MD Work Phone: [phone]02-10-2025 13:25-0500 Body nupipf05.9 kgAnupam Pereira MD Work Phone: [phone] [place], [place] 3555302-10-2025 13:25-0500 Diastolic blood ifihslgv51 mm[Hg]Anupam Pereira MD Work Phone: [phone] [place], [place] 3555302-10-2025 13:25-0500 Heart rate76 /minAnupam Pereira MD Work Phone: [phone]02-10-2025 13:25-0500 Systolic blood cskppyua341 mm[Hg]Anupam Pereira MD Work Phone: [phone] [place], [place] 3555302-06-2025 10:24-0500 Body xocftk166.4 cmLupe Rosado MD Work Phone: [facility]02-06-2025 10:24-0500 Body mass index (BMI) [Ratio]38.55 kg/y5QtawpqLupe Rosado MD Work Phone: [facility]02-06-2025 10:24-0500 Body ndecbw76.54 kgLupe Rosado MD Work Phone: [facility]02-06-2025 10:24-0500 Diastolic blood edhpcskc87 mm[Hg]Lupe Rosado MD Work Phone: [phone] [place], [place] 4972802-06-2025 10:24-0500 Heart rate82 /minLupe Rosado MD Work Phone: [facility]02-06-2025 10:24-0500 Systolic blood frqhusuo564 mm[Hg]Lupe Rosado MD Work Phone: [facility]01-27-2025 11:36-0500 Body eqmkva188.22 cmOhio [facility] Center01-27-2025 11:36-0500Body mass index (BMI) [Ratio]39.7 kg/l7EynuffkniOhio State University Wexner Medical Center01-27-2025 11:36-0500Body .59 kgOhio State University [facility] Medical Center01-27-2025 11:36-0500Diastolic blood mm[Hg][facility] 05-31-2024 11:36-0500Heart rate65 /[facility] 05-31-2024 11:36-0500Respiratory rate16 /[facility] 05-31-2024 11:36-9444BbR1% (BldA) [Mass fraction]98 %[facility]01-27-2025 11:36-0500Systolic blood qnqydang797 mm[Hg][facility]10-29-2024 10:53-0400Body xepyqb012.13 cmOhio State University [facility] Medical Center10-29-2024 10:53-0400Body mass index (BMI) [Ratio]38.7 kg/m2 [facility]10-29-2024 10:53-0400Body vfpips40.45 kg [facility]10-29-2024 10:53-0400Diastolic blood fpbpdsyt00 mm[Hg][facility]10-29-2024 10:53-0400Heart rate78 /min [facility]10-29-2024 10:53-0400Systolic blood tgtqvfnu625 mm[Hg][facility]08-19-2024 13:59-0400Body vrlomj953.13 cmOhio State University [facility] Center08-19-2024 13:59-0400Body mass index (BMI) [Ratio]39.5 kg/w0TbhxhaeynOhio State University [facility]ner Medical Center08-19-2024 13:59-0400Body ypktpuyxvds57.6 [degF][facility]08-19-2024 13:59-0400Body evfgqp75.37 kgOhio State University Wexner Medical Center08-19-2024 13:59-0400Heart rate 95 /[facility]08-19-2024 13:59-0400Respiratory rate18 /[facility]08-19-2024 13:59-4988VlF9% (BldA) [Mass fraction]97 %[facility]07-16-2024 10:43-0400Body height 152.4 cmLupe Rosado MD Work Phone: [phone] [place], [place] 4972807-16-2024 10:43-0400 Body mass index (BMI) [Ratio]37.5 kg/c7MrwptpLupe Rosado MD Work Phone: [phone])[address]07-16-2024 10:43-0400 Body uiqjgm30.09 kgLupe Rosado MD Work Phone: [phone])[address]07-16-2024 10:43-0400 Diastolic blood okoglxpv23 mm[Hg]Lupe Rosado MD Work Phone: [phone])[address]07-16-2024 10:43-0400 Heart rate76 /Gigi Rosado MD Work Phone: [phone] [place], [place] 4972807-16-2024 10:43-0400 Systolic blood qwqojrec584 mm[Hg]Lupe Rosado MD Work Phone: [phone])[address]04-26-2024 10:30-0400 Body pwyday616.4 cmDaphne Mayes MD Work Phone: [phone] [place], [place] 4406504-26-2024 10:30-0400 Body mass index (BMI) [Ratio]37.5 kg/m2Daphne Mayes MD Work Phone: [phone] [place], [place] 4406504-26-2024 10:30-0400 Body qpfmpo63.09 kgDaphne Mayes MD Work Phone: [phone] [place], [place] 4406504-26-2024 10:30-0400 Diastolic blood cyuoqmze84 mm[Hg]Daphne Mayes MD Work Phone: [phone])[address] [place], [place] [id number] 10:30-0400 Heart rate64 /Jesus Mayes MD Work Phone: [facility]04-26-2024 10:30-0400 Systolic blood yvqxboou077 mm[Hg]Daphne Mayes MD Work Phone: [facility]01-24-2024 11:30-0500 Body .13 cmAnupam Pereira Other [place] [employer] Other 01-24-2024 11:30-0500Body mass index (BMI) [Ratio] 37.33 kg/q2Sdzlpt Pereira [facility] [employer] Other 01-24-2024 11:30-0500Body fgiuqn26.28 kgAnupam Pereira [facility] Other 01-24-2024 11:30-0500Diastolic blood rvvovcfj06 mm[Hg] Anupam Pereira Other [employer] Other 01-24-2024 11:30-0500Systolic blood mm[Hg] Anupamlamine Pereira Other [employer] Other 01-08-2024 13:32-0500Body eymspg213.4 cmLupe Rosado MD Work Phone: [facility]01-08-2024 13:32-0500 Body mass index (BMI) [Ratio]37.3 kg/e8CkaiwiLupe Rosado MD Work Phone: [facility]01-08-2024 13:32-0500 Body ujbyye70.64 kgLupe Rosado MD Work Phone: [facility]01-08-2024 13:32-0500 Diastolic blood zejmbpat03 mm[Hg]Lupe Rosado MD Work Phone: 1(440)414-[address] [place], [place] 4972801-08-2024 13:32-0500 Heart rate62 /minLupe Rosado MD Work Phone: 7(433)412-[address] [place], [place] 4972801-08-2024 13:32-0500 Systolic blood wrsrdyqr095 mm[Hg]Lupe Rosado MD Work Phone: 1(704)171-[address] [place], [place] 4972810-24-2023 10:10-0400 Body .4 cmTraci Gibbs-Ellacott FINANCE ASSOCIATE-FOOD SAFETY FIELD SPECIALIST Work Phone: 0(274)468-[address] [place], [place] 4406510-24-2023 10:10-0400 Body mass index (BMI) [Ratio]37.69 kg/n7Vdocr Gibbs-Ellacott FINANCE ASSOCIATE-FOOD SAFETY FIELD SPECIALIST Work Phone: [phone])[address]10-24-2023 10:10-0400 Body puhfgs11.54 kgTraci Gibbs-Ellacott FINANCE ASSOCIATE-FOOD SAFETY FIELD SPECIALIST Work Phone: 5(546)505-[address] [place], [place] 4406510-24-2023 10:10-0400 Diastolic blood ohcjgusf42 mm[Hg]Lynn Gibbs-Ellacott FINANCE ASSOCIATE-FOOD SAFETY FIELD SPECIALIST Work Phone: 0([phone])494-[address] [place], [place] 4406510-24-2023 10:10-0400 Heart rate74 /minTraci Sai-Ellacott FINANCE ASSOCIATE-FOOD SAFETY FIELD SPECIALIST Work Phone: 7(038)317-[address] [place], [place] 4406510-24-2023 10:10-0400 Systolic blood glzjnqxu235 mm[Hg]Lynn Sai-Ellaconatalie FINANCE ASSOCIATE-FOOD SAFETY FIELD SPECIALIST Work Phone: [phone])429-[address] [place], [place] 4406509-07-2023 13:15-0400 Body arbeoh599.13 cmAnupam Pereira Other [employer] Other 09-07-2023 13:15-0400Body mass index (BMI) [Ratio] 38.05 kg/m4MpvfwbAnupam Pereira Other [employer] Other 09-07-2023 13:15-0400Body waxqnx57.91 kgAnupam Randall Other [employer] Other 09-07-2023 13:15-0400Diastolic blood mm[Hg] Anupam Pereira Other [employer] Other 09-07-2023 13:15-0400Systolic blood ztacqluk980 mm[Hg] Anupam Pereira Other [employer] Other 08-29-2023 14:15-0400Body .13 cmRossymichelle Pereira Other [employer] Other 08-29-2023 14:15-0400Body mass index (BMI) [Ratio] 38.32 kg/w9NutfgrAnupam Pereira Other [employer] Other 08-29-2023 14:15-0400Body ycaogjpalka71.9 [degF]Anupam Pereira Other [employer] Other 08-29-2023 14:15-0400Body vjpysp38.54 kgAnupam Randall Other [employer] Other 08-29-2023 14:15-0400Diastolic blood oztfndxo28 mm[Hg] Anupam Pereira Other [employer] Other 08-29-2023 14:15-0400Systolic blood mm[Hg] Anupam Pereira Other [employer] Other 08-22-2023 10:45-0400Body peknxd871.13 cmAnupam Pereira Other [employer] Other 08-22-2023 10:45-0400Body mass index (BMI) [Ratio] 38.52 kg/d1BqombzAnupam Pereira Other [facility] [employer] Other 08-22-2023 10:45-0400Body gksqip58 kgJulianamichael Pereira Other [place] [employer] Other 08-22-2023 10:45-0400Diastolic blood rsapwops42 mm[Hg] Anupam Pereira Other [place] [employer] Other 08-22-2023 10:45-0400Systolic blood dvyboxct132 mm[Hg] Anupam Pereira Other [place] [employer] Other 06-07-2023 10:59-0400Body paaclq385.4 cmAnupam Pereira Work Phone: mp676-0907QI-Uepan [place] [employer] [address] DO Work Phone: 1(291) 715-105606-07-2023 10:59-0400Body mass index (BMI) [Ratio] 39.26 kg/d9PdunikAnupam Pereira Work Phone: mp697-3157MC-Jamot [place] [employer] [address] DO Work Phone: 1(325) 817-151306-07-2023 10:59-0400Body surface area Derived from formula1.87 n6WibfpeAnupam Pereira Work Phone: mp369-2671TN-Tdtil [place] [employer] [address] DO Work Phone: 1(695) 431-516206-07-2023 10:59-0400Body .17 kgAnupam Pereira Work Phone: mp220-6423IZ-Nqstc [place] [employer] [address] DO Work Phone: 1(394) 388-817406-07-2023 10:59-0400Diastolic blood iiefryhb86 mm[Hg] Anupam Pereira Work Phone: mp247-7281IX-Ggufc [place] [employer] [address] DO Work Phone: 1(198) 743-642706-07-2023 10:59-0400Heart rate72 /minAnupam Pereira Work Phone: mp864-9553UW-Emkak [place] [employer] [address] DO Work Phone: 1(192) 105-837206-07-2023 10:59-0400Systolic blood eoerleab949 mm[Hg] Anupam Pereira Work Phone: mp877-3925BX-Xbdqt [place] [employer] [address] DO Work Phone: 1(945) 543-358501-17-2023 15:30-0500Body fhbxob687.13 cmAnupam Pereira Other [employer] Other 01-17-2023 15:30-0500Body mass index (BMI) [Ratio] 40.11 kg/i1QklrxxAnupam Pereira Other [employer] Other 01-17-2023 15:30-0500Body idrilz29.63 kgAnupam Pereira Other [facility] [employer] Other 01-17-2023 15:30-0500Diastolic blood spzoymne27 mm[Hg] Anupam Pereira Other [employer] Other 01-17-2023 15:30-0145SdK8% (BldA) [Mass fraction]97 % Anupam Pereira Other [facility] [employer] Other 01-17-2023 15:30-0500Systolic blood pnqjyzli785 mm[Hg] Anupam Pereira Other [employer] Other 12-14-2022 11:16-0500Body dyvuzh865.4 cmAnupam Pereira Work Phone: mp980-9954SW-Huijg [place] [employer] [address] DO Work Phone: 1(455) 812-511712-14-2022 11:16-0500Body mass index (BMI) [Ratio] 39.32 kg/l4YuvcenAnupam Pereira Work Phone: mp096-7757SQ-Psbfw [facility] [address] DO Work Phone: 1(882) 240-969612-14-2022 11:16-0500Body surface area Derived from formula1.87 n9CkxadfAnupam Pereira Work Phone: mp656-0649YQ-Lncyv [facility] DO Work Phone: 1(412) 808-228612-14-2022 11:16-0500Body nwudwb66.31 kgAnupam Pereira Work Phone: 1([phone] [phone]-Vytjg [facility] [address] DO Work Phone: 1(323) 836-685812-14-2022 11:16-0500Diastolic blood gimfuxyq73 mm[Hg] Anupam Pereira Work Phone: mp958-1281UU-Ifzly [facility] DO Work Phone: 1(511) 344-360412-14-2022 11:16-0500Heart rate62 /minAnupam Pereira Work Phone: 1(109) [phone]-Mwlvl [facility] [address] DO Work Phone: 1(895) 149-559912-14-2022 11:16-0500Systolic blood iilakwec737 mm[Hg] Anupam Pereira Work Phone: mp232-6525LB-Sslsr [facility] [address] DO Work Phone: 1(651) 698-982006-07-2022 13:20-0400Body .4 cmAnupam Pereira Work Phone: mp886-7939QI-Ekpog [facility] [address] DO Work Phone: 1(353) 558-841806-07-2022 13:20-0400Body mass index (BMI) [Ratio] 40.23 kg/l3NzmzshAnupam Pereira Work Phone: mp811-4302JQ-Afncu [facility] [address] DO Work Phone: 1(520) 761-963106-07-2022 13:20-0400Body surface area Derived from formula1.89 c1SitlknAnupam Pereira Work Phone: mp802-3769NE-Wmqti [facility] [address] DO Work Phone: 1(878)[phone] 13:20-0400Body yyvbko98.44 kgAnupam Pereira Work Phone: mp969-7731QV-Jdzts [facility] DO Work Phone: 1(106)980-58657-017156-32898767-65-3031 13:20-0400Diastolic blood kwowpjyg36 mm[Hg] Anupam Pereira Work Phone: 1(729) 131-6347504-0107UT-Ueiwn [facility] [address] DO Work Phone: 1(695)[phone]-0798 13:20-0400Heart rate68 /minAnupam Pereira Work Phone: 1(269) [phone]-Beykv [facility] [address] DO Work Phone: 1(450) 387-422406-07-2022 13:20-0400Systolic blood ywphfixy527 mm[Hg] Anupam Pereira Work Phone: 1(945) [phone]-NakugEssentia Health-[facility] 250 DO Work Phone: 1(797)369-168-745953-24 13:20-244560 1Mgreer Pereira Work Phone: 1(985) [phone]-Yfrpd [place] [facility] DO Work Phone: Comment on above:PHQ-9 UR65-11-1951 15:58-0400Body .4 cmAnupam Pereira Work Phone: 1(115) [phone]-RwgalEssentia Health-[facility] [address] DO Work Phone: 1(477)[phone] 15:58-0400Body mass index (BMI) [Ratio] 41.21 kg/a1HigoxeAnupam Pereira Work Phone: 1(289) [phone]-Wxzjt [place] [facility] [address] DO Work Phone: 1(077)[phone]-8965 15:58-0400Body surface area Derived from formula1.91 b6SfywhxAnupam Pereira Work Phone: mp382-2310NN-Rplah [facility] DO Work Phone: 1(285) 193-854104-07-2022 15:58-0400Body yioiiicdhuz50 [degF]Anupam Pereira Work Phone: mp318-0784FJ-Ibjpq [facility] [address] DO Work Phone: 1(389) 739-420504-07-2022 15:58-0400Body xaljmd18.71 kgAnupam Pereira Work Phone: mp726-7511KZ-Amrxx [facility] DO Work Phone: 1(470) 454-602604-07-2022 15:58-0400Diastolic blood sawhazlx57 mm[Hg] Anupam Pereira Work Phone: mp704-1766ZQ-Iwcyr [facility] [address] DO Work Phone: 1(183) 199-120904-07-2022 15:58-0400Heart rate82 /minAnupam Pereira Work Phone: mp719-1248BD-Ualsi [facility] DO Work Phone: 1(269) 586-267504-07-2022 15:58-0400Systolic blood stdojirj872 mm[Hg] Anupam Pereira Work Phone: mp311-1616PM-Dvmve [facility] [address] DO Work Phone: Encounters Encounter DateEncounter TypeCare ProviderFacilityStart: 03-10-2025 End: 28-74-0010Wkqraos encounter procedureLupe Denney MD [facility]-Pacemaker CheckStart: 03-10-2025 End: 39-76-7477gywhcwjtpoEtqxmu E Braun MD Work Phone: [phone]-Xxrdlnqgq CheckStart: 86-88-7673Esv-patient / Non-visitMPretty Harper-Heart Rhythm ClinicStart: 02-04-2025 End: 08-48-9992hbnhxlqvawEotivk E Braun MD Work Phone: [facility] Work Phone: Start: 02-04-2025 End: 74-79-9687Xdjytkx encounter procedureAnupam Pereira MD-[facility] Work Phone: Start: 12-31-2024 End: 98-00-2734qahlyxwzhoEusuyf E Braun MD Work Phone: [facility] Work Phone: Start: 12-31-2024 End: 40-10-7877Mgymukb encounter procedureAnupam Pereira MD-[facility] Work Phone: Start: 12-09-2024 End: 35-33-8190shteybpbdiVahdpl [facility] CenterFac[facility] Ohiotart: 18-89-6598Hpf-patient / Non-visitShea Gaspar [facility]-Heart Rhythm ClinicStart: 10-06-2024 End: 19-83-4730knujimdghoRNWQVD M [facility] AmbulatoryStart: 10-06-2024 End: 91-66-1172Ejhcxb outpatient visit 25 minutesLupe Rosado MD Work Phone: [facility] CenterComment on above:Nonischemic cardiomyopathy (Multi) (Primary Dx); ICD (implantable cardioverter-defibrillator) in place; Obstructive sleep apnea syndrome in adult; Never smoked cigarettes; BMI 38.0-38.9,adult; Class 2 obesity; Other fatigueStart: 09-03-2024 End: 04-81-0484fbfvmvhfbsGajimr E Braun MD Work Phone: [facility] Work Phone: Start: 09-03-2024 End: 80-27-2030Ewlzgcj encounter Enma Pereira MD Work Phone: [facility]-Pacemaker CheckStart: 40-10-8319Cdy-patient / Non-visitAnupam Pereira MD Work Phone: [facility]-Heart Rhythm ClinicStart: 08-03-2024 End: 96-16-2422uxohyofbtrLdpwia E Braun MD Work Phone: [facility] Work Phone: Start: 08-03-2024 End: 13-76-1411Wkaseqy encounter Enma Pereira MD Work Phone: [facility] [place] Work Phone: Start: 07-26-2024 End: 93-95-8235xouudvvfdfUmdihf E Braun MD Work Phone: [facility] Work Phone: Start: 07-26-2024 End: 62-08-0304Rdyhche encounter procedureAnupam Pereira MD Work Phone: [facility] Work Phone: Start: 07-12-2024 End: 40-17-1232Techrow encounter procedureAnupam Pereira MD Work Phone: [facility] [place] Work Phone: Start: 07-12-2024 End: 66-59-3140lzaqfvmlzpQdeozj E Braun MD Work Phone: [facility] Work Phone: Start: 06-14-2024 End: 98-93-5607nbluijfglbJeuxwd E Braun MD Work Phone: [facility] Work Phone: Start: 06-14-2024 End: 07-51-6276Mwilcbb encounter procedureAnupam Pereira MD Work Phone: [facility] Work Phone: Start: 06-10-2024 End: 04-20-9843Hxfpce outpatient visit 25 minutesLupe Rosado MD Work Phone: [facility] CenterComment on above:ICD (implantable cardioverter-defibrillator) in place (Primary Dx); Chronic systolic congestive heart failure; Fatigue, unspecified type; Obstructive sleep apnea syndrome in adult; Never smoked cigarettes; BMI 38.0-38.9,adult; Class 2 obesityStart: 06-10-2024 End: 41-98-7103mexukaicqmLIEWJK M IBRSt. [facility] AmbulatoryStart: 52-08-2164Auc-patient / Non-visitMarcia Pereira MD Work Phone: [facility] Work Phone: Start: 06-03-2024 End: 86-04-5887Qiyduqn encounter procedureAnupam Pereira MD Work Phone: [facility]-Pacemaker CheckStart: 06-03-2024 End: 84-18-4454mpxeorvsumVedjtw E Braun MD Work Phone: [facility] Work Phone: Start: 31-32-5524Trn-patient / Non-visitAnupam Pereira MD Work Phone: [facility]-Heart Rhythm ClinicStart: 05-31-2024 End: 94-49-4376fgkubllpisZopyxfrirBlanchard [facility] Work Phone: Start: 05-31-2024 End: 05-99-1346Tgvbvqg encounter procedureOur [facility] Work Phone: Start: 05-20-2024 End: 46-21-4517xojmeucgzbQDTRIW M [facility] Centertart: 25-83-4629Szt-patient / Non-visitAnupam Pereira MD Work Phone: [facility] Work Phone: Start: 52-73-8471Oor-patient / Non-visitFirelands Physician Group-[facility] Work Phone: Start: 39-02-0216Qhe-patient / Non-visitFircarefrees Physician Group-Heart Rhythm ClinicStart: 03-02-2024 End: 80-99-5810tikagmxpqqZryrceebjBlanchard Valley Health [facility] Work Phone: Start: 03-02-2024 End: 20-65-4597Xzeowyj encounter procedureOur [facility] Hospital [facility] Work Phone: Start: 03-01-2024 End: 16-79-9790Oypupiisnp hospital visit by physicianE[facility] 2 [facility] HospitalComment on above:ICD (implantable cardioverter- defibrillator) in placeStart: 03-01-2024 End: 85-89-0082wfqrytmuupCPJL J QUANSelect [facility] Start: 12-22-2023 End: 42-56-4498nlvamnjljgObvvzawpxPeoples Hospital Work Phone: Start: 12-22-2023 End: 18-35-6061Jxbpvxw encounter procedureOur Community Hospital [facility] Work Phone: Start: 12-02-2023 End: 51-95-3453dxqfkxtocjIV Marcia E Braun Work Phone: [facility] Work Phone: Start: 12-02-2023 End: 15-23-7297Hinehsu encounter procedureMD Anupam Pereira Work Phone: [facility]-Pacemaker CheckStart: 56-01-5516Oez-patient / Non-visitFirbon [facility] Start: 11-18-2023 End: 29-20-2836Eurhee outpatient visit 25 minutesLupe Rosado MD Work Phone: uh [facility] HospitalComment on above:Cardiomyopathy, unspecified type (Multi); Chronic systolic congestive heart failure (Multi); ICD (implantable cardioverter-defibrillator) in place; Obstructive sleep apnea syndrome in adult; Fatigue, unspecified type; Never smoked cigarettes; Class 2 obesity without serious comorbidity with body mass index (BMI) of 37.0 to 37.9 in adult, unspecified obesity typeStart: 11-18-2023 End: 17-29-0549urksqndqqcJJKUPY M IBRSt. [facility] AmbulatoryStart: 08-29-2023 End: 86-49-7667avfesgnefqEUHSLUSamaritan Hospitaltart: 08-29-2023 End: 45-89-8977Vfzvkb outpatient visit 25 minutesDaphne Mayes MD Work Phone: [address] [place], [place] [address]Comment on above:ICD (implantable cardioverter-defibrillator) in place (Primary [...] and counseling; Encounter to discuss treatment optionsStart: 61-93-6812Eyibyf outpatient visit [address] [facility] Board[facility] Hospitaltart: 05-28-2023 End: 07-91-9856nwbzyoqcjiJU Marcia E Braun Work Phone: [place] [employer] Other Start: 05-28-2023 End: 56-93-9498Vcuoeku encounter procedureMD Anupam Pereira Work Phone: [facility]-Pacemaker CheckStart: 05-20-2023 End: 72-42-5254gkafixunrvEdmqll Braun Other [employer] Other Start: 50-02-1925Abcfjooqc encounterAnupam RandallMercy Health St. Elizabeth Boardman Hospitaltart: 05-12-2023 End: 77-97-0659Gxlvop outpatient visit 25 minutesLupe Rosado MD Work Phone: [facility] CenterComment on above:Cardiomyopathy, unspecified type (CMS/HCC) (Primary Dx); ICD (implantable cardioverter-defibrillator) in place; Obstructive sleep apnea syndrome in adult; Class 2 obesity without serious comorbidity with body mass index (BMI) of 37.0 to 37.9 in adult, unspecified obesity typeStart: 05-08-2023 End: 15-08-0901Haquiqp encounter procedureMD Anupam Pereira Work Phone: [facility] Work Phone: Start: 02-25-2023 End: 78-33-5619Usmgqx outpatient visit 25 minutesLynn Jorgensen APRN-FOOD SAFETY FIELD SPECIALIST Work Phone: [facility]Comment [facility] above:ICD (implantable cardioverter-defibrillator) in place (Primary Dx); Morbid obesity (CMS/HCC); Chronic systolic congestive heart failure (CMS/HCC); Cardiomyopathy, unspecified type (CMS/HCC); Dyspnea on exertion; Obstructive sleep apnea syndrome in adult; Other fatigueStart: 01-09-2023 End: 13-51-4772cpxhzwvrldOeykde Braun Other [employer] Other Start: 04-18-9182Rffdri outpatient visit 15 minutes [facility]up[facility] ClinicStart: 12-31-2022 End: 75-87-9664qjjzoakpzePexoam Braun Other [employer] Other Start: 12-07-1314Qhwjwg outpatient visit 15 minutes Anupam [facility] ClinicStart: 12-24-2022 End: 24-43-0749zlfaugrbcxPodfxw Braun Other [employer] Other Start: 59-69-7866Jsqebg outpatient visit 15 minutes Anupam [facility] ClinicStart: 12-20-2022 End: 63-31-1316fjtyfejbfmAnisws Braun Other [employer] Other Start: 10-89-4650Xhbyigwfd encounterMarcia Yudy [facility] ClinicStart: 12-16-2022 End: 90-38-8243hozqbyfzdaUjuvtl Braun Other [employer] Other Start: 42-47-2773Bzktlzqjy encounterMarmichael Jimenes [facility] ClinicStart: 11-28-2022 End: 40-61-4826qmnaiplihcKM Anupam Pereira Work Phone: [facility] Work Phone: Start: 11-28-2022 End: 70-84-0159Xqoxhdl encounter procedureMD Anupam Pereira Work Phone: [facility]-Pacemaker CheckStart: 67-98-1086iqpkaeqqtnXz. Lupe RosadoFacility:9844Start: 10-09-20[address] Lu[address] VanceimFacility:175[address]Eojti: 61-70-4841Dpuruz outpatient visit 25 minutesAnupam Pereira Work Phone: [phone]-Qthrg [facility] [address] DO Work Phone: Start: 24-29-7864przeadhsvvZo. Anupam Pereira Facility:[id number]: 08-28-2022 End: 09-49-7046syrezyjeiqUH Marcia E Braun Work Phone: [facility] Work Phone: Start: 08-28-2022 End: 47-93-6293Haghwqt encounter procedureMD Anupam Pereira Work Phone: [facility]-Pacemaker CheckStart: 38-12-3422rpxdbslvqmTl. Lupe Readcility:9844Start: 08-15-2022 End: 04-20-0925iobnxfyoydLZMNQVEDVSUO LAKSHMIPATHY .Facility:C9Unzzo: 07-17-[address] Lupe RosadoFacility:9844Start: 07-16-2022 End: 93-00-2424cltndikdmeKE ANUPAM Morgancility:U3Eayci: 48-89-1422Sasuvpfly for preprocedural cardiovascular examinationDR JANICE IRVING .[facility] Hospitaltart: 07-09-2022 End: 22-02-6046slztcgjpyvCU MARCIA E BRAUNFacility:J2Xnzyu: 07-09-2022 End: 69-50-9787Sxqbfoody for preprocedural cardiovascular examinationDR ANUPAM PEREIRAFacility:C7Kwfqr: 06-20-2022 End: 23-05-6358kfwawgfjyxBM MARCIA E BRAUNFacility:H7Dixqf: 06-04-2022 End: 14-71-7192dqcaeezdsbSK MARCIA E BRAUNFacility:E4Fyqmr: 05-23-2022 End: 07-08-2660ykrmvtqpkmJL MARCIA E NVELO Other Start: 28-10-4915Xplngfwxz encounterAnupam Jimenes [facility] ClinicStart: 05-21-2022 End: 46-35-0613rloollowaaZC MARCIA E NVELO Other Start: 41-77-0202Ierscj outpatient visit 15 minutes Anupam Jimenes [facility] ClinicStart: 05-17-2022 End: 41-52-5455mklrjpwypkZTZack Pereira Work Phone: [facility] Work Phone: Start: 05-17-2022 End: 86-11-9904Kpyaliv encounter procedureMD Anupam Pereira Work Phone: [facility]-Pacemaker CheckStart: 05-07-2022 End: 06-62-4241gautxannfqWG MARCIA E BRAUNFacility:F6Dhowx: 04-23-2022 End: 89-23-8000hgpuirbfddNTNessa PEREIRAFacility:J2Anmbn: 25-35-6593Bmygbx outpatient visit 25 minutesAnupam Pereira Work Phone: [phone]-Vvvkm [facility] [address] DO Work Phone: Start: 52-39-0111ituiffzpdnYaDr. Lupe Rosado Facility:14412Pausp: 04-09-2022 End: 26-27-3603qncwsmaefnXKNessa PEREIRAFacility:A3Okgdu: 79-78-9717ampxnhyggjcindy PereiraFacility:9090Start: 02-12-2022 End: 41-49-5517xkzxfbzqooSOJusto Pereira Work Phone: [facility] Work Phone: Start: 02-12-2022 End: 19-68-7410Efdimcg encounter procedureMD Anupam Pereira Work Phone: [facility]-Pacemaker CheckStart: 02-04-2022 End: 30-11-2055tcwuhkcwouZI MARCIA E BRAUNFacility:Y1Vczlj: 69-92-0738kvpurmgfqi Dr. Anupam PereiraFacility:87[address]Fuvgz: 11-07-2021 End: 37-12-8261Bvqofiq encounter procedureMD Anupam Pereira Work Phone: [facility]-Pacemaker CheckStart: 11-06-2021 End: 72-32-8844dhfbnpfjfdCQ HASSAN M IBRAHIMFacility:B9Mncib: 83-30-1891Coyooa outpatient visit 25 minutesAnupam Pereira Work Phone: mp779-7819BF-Rzuym [facility] [address] DO Work Phone: Start: 09-07-2021 End: 81-48-3844bqpjjccvpgVL MARCIA E BRAUNFacility:U7Htfxm: 49-49-6410Ocxed UpdateAnupam Pereira Work Phone: mp468-4737CW-[place] [facility] [address] DO Work Phone: Start: 86-15-3396Fb RenewalAnupam Pereira Work Phone: [phone]-Bhqcf [facility] DO Work Phone: Start: 64-53-6577Njxsel follow up visit related to original Stefani Pereira Work Phone: [phone]-Svnsd [facility] [address] DO Work Phone: Start: 07-31-2021 End: 50-61-5904Ycnulrc encounter procedure Anupamlamine Pereira Work Phone: [facility]-[place] COVID TestingStart: 93-09-4520JJAADTwcnsi E Braun Work Phone: [phone]-Pcejc [facility] Work Phone: Start: 07-18-2021 End: 56-74-9319Cwyjpxw encounter procedureMD Anupam Randall Work Phone: [facility]-[place] SwabStart: 00-10-9862VauwfdiEyvqgf E Braun Work Phone: [phone]-Qxoqg [facility] [address] DO Work Phone: Start: 07-04-2021 End: 78-78-6783Wnrkrll encounter procedureMD Anupam Pereira Work Phone: [facility]-Pacemaker CheckStart: 26-51-8674YQQZBAzomgw E Braun Work Phone: [phone]-Yinoc [facility] [address] DO Work Phone: Start: 18-27-8807Ax Layton Pereira Work Phone: [phone]-Quedp [facility] [address] DO Work Phone: Start: 07-01-2017 End: 14-00-4517NsmozrfjnsGthnht V HampoleFacility:[facility] [place]Patient encounter status Anupam Pereira Work Phone: [phone]-Gxdnj [facility] [address] DO Work Phone: End: 70-20-4387Dpvimdq encounter statusAnupam Pereira Work Phone: [phone]) [phone]-Dobor [facility] [address] DO Work Phone: Procedures DateProcedureProcedure DetailPerforming ClinicianStart: 02-49-9241QRX of right wristAnupam Pereira MD Work Phone: Start: 33-85-9868EZ pre/post mri xrJay Pereira MD Work Phone: Start: 77-66-4317Wqeqsx eval implantable in person multi lead Nadiya Mayes MD Work Phone: Start: 51-63-7878Qnknr metabolic 2000 panel - Serum or PlasmaMARCIA BRAUNStart: 76-53-6428Vcz routine ecg w/least 12 lds w/i&rKmelanie Mayes MD Work Phone: Start: 39-62-9725FHYR Antigen (LFIA)MD Anupam Pereira Work Phone: Start: 17-76-9182Fpohcgtju mammographyRossya Randall Other Insertion of pulse generator of implantable cardioverter defibrillatorRossya E Randall Work Phone: Ligation of fallopian tubeAnupam E Randall Work Phone: Total colonoscopyJulianacia E Randall Work Phone: Comment on above:05May2008; Plan of Treatment DateCare ActivityDetailAuthorStart: 11-49-6933POhA/Tdap/Td Vaccines (2 - Td or Tdap)DTaP/Tdap/Td Vaccines (2 - Td or Tdap)[facility] Start: 05-18-2025 End: 33-35-1902Eedfxnt encounter ezlbgxhaz86/14/2026 10:10 AM EST Office Visit [address] [place] [address] Lupe Rosado MD [address] [place] [address] 2, [place] [address] [place] [address] [facility]: 29-80-7894Fviguskfr vaccinationInfluenza Vaccine (Season Ended)[facility]: [facility] End: 14-97-4739Mkcrcrj encounter iymlhuygn87/04/2025 9:40 AM EDT Office Visit [address] [place] [address] Lupe Rosado MD [address] [place] [address] 2, [address] [place] [address] [facility]: 88-34-9468Wekvrijjoy measurementCreatinine LevelMorrow [facility]: 02-29-4856Wrayduhyn measurement Potassium [facility]: 33-25-5044IxtapdywxSelect Medical [facility] Ohiotart: 06-10-2024 End: 30-27-2890Hsjwxpc encounter osvkvobkv76/06/2025 10:30 AM EST Office Visit [facility] [address] [facility] [address] [place] [address] Lupe Rosado MD [address] [place] [address] [facility]: [facility]2024 End: 89-01-2867Ggdct metabolic 2000 panel - Serum or PlasmaBasic Metabolic Panel Lab Routine Cardiomyopathy, unspecified type (Multi) Chronic systolic congesti ve heart failure (Multi) Expected: 05/20/2024 (Approximate), Expires: 11/17/2024 [facility] Service Area Work Phone: Comment on above:Expected: 05/20/2024 (Approximate), Expires: 11/17/2024Start: 04-06-2024 End: 03-40-8331Zxtkpel encounter bhlejdohl00/03/2024 11:00 AM EST Office Visit [facility] [address] [facility] [address] [place] [address] Daphne Mayes MD [address] [facility] [address], [address] [place] [address] [facility] Start: 02-28-2024 End: 44-09-0813Hqincad Device Check - In ClinicCardiac Device Check - In Clinic Implantable Cardiac Device Routine ICD (implantable cardioverter-defibrillator) in place Expected: 02/28/2024 (Approximate), Expires: 08/28/2024[facility] Service Area Work Phone: Comment on above:Expected: 02/28/2024 (Approximate), Expires: 08/28/2024Start: 02-20-2024 End: 71-07-1223Hzabscc encounter procedureAnderson County Hospitaltart: 20-38-2397PJXUR-19 Vaccine ( season)COVID-19 Vaccine ( season)[facility]: 67-45-3348Iorlyzzfy vaccination [facility]: 95-91-8183UvrtmqftxjcartsyRuvmiakpiovbwa [facility]: 11-18-2023 End: 73-80-1843Riqwjir encounter fvlmomqcv33/16/2024 10:40 AM EDT Office Visit [address] [place] [address] Lpue Rosado MD [address] [facility] [address] [place] [address] [facility]: 08-29-2023 End: 06-75-9372Jlbgpyq encounter jpwfbmewd26/26/2024 10:20 AM EDT Office Visit [facility] [address] [facility] [address] [place] [address] Daphne Mayes MD [address] [facility] [address] [place] [address] [facility] Start: 16-22-7765NPZ, Provider: Lupe Rosado, Status: Pen, Time: 11:00 AMFUV, Provider: Lupe Rosado, Status: Pen, Time: 11:00 [facility] [address] DO Work Phone: Start: 04-17-2023 End: 99-19-4042Vhatjvr encounter oehcvkbwt91/14/2023 11:00 AM EST Office Visit [address] [place] [address] Lupe Rosado MD [address] [facility] [address] [place] [address] [facility]: 03-11-2023 End: 85-55-2675Ywneq metabolic 2000 panel - Serum or PlasmaBasic metabolic panel Lab Routine Chronic systolic congestive heart failure (CMS/HCC) Expected: 11/2022 (Approximate), Expires: 02/26/2024[facility] Service Area Work Phone: Comment on above:Expected: 03/11/2023 (Approximate), Expires: 02/26/2024Start: 51-27-4434WDT, Provider: Daphne Mayes, Status: Pen, Time: 2:00 PMFUV, Provider: Daphne Mayes, Status: Pen, Time: 2:00 PMMP-[facility] [place] [address] DO Work Phone: Start: 35-17-7068Dnomlns encounter procedure FUVPACERENÉ, Provider: [facility], Status: Pen, Time: 1:00 [facility] 250 DO Work Phone: Start: 38-44-9170VFXBS-19 Vaccine ( season) COVID-19 Vaccine ( season)[facility]: 81-49-3398Bjbtauoqc vaccinationInfluenza Vaccine (#1)[facility]: 75-57-3285GCTS, Provider: KENDY [facility] ULTRASOUND 01,[id number], Status: Pen, Time: 10:45 AMECHO, Provider: KENDY [facility] ULTRASOUND 01,[id number], Status: Pen, Time: 10:45 [facility] 250 DO Work Phone: Start: 49-36-8375YDV, Provider: Lupe Rosado, Status: Pen, Time: 10:40 AMFUV, Provider: Lupe Rosado, Status: Pen, Time: 10:40 AMMPOrtonville Hospitalusky 250 DO Work Phone: Start: 35-56-9662Kflabrldhf measurementCreatinine LevelMorrow County Hospital: 65-48-7209Tnehxtpkp measurement Potassium LevelMorrow County Hospital: 60-64-9716GAFD, Provider: KENDY [facility]VI ULTRASOUND 01,[id number], Status: Pen, Time: 9:45 AMECH, Provider: KENDY [facility] ULTRASOUND 01,[id number], Status: Pen, Time: 9:45 AM [facility] Work Phone: start: 82-17-5685SQUT, Provider: KENDY HHVI ULTRASOUND 01,[id number], Status: Pen, Time: 2:30 PMECHO, Provider: KENDY [facility] ULTRASOUND 01,[id number], Status: Pen, Time: 2:[address]- [place] [address] DO Work Phone: Start: 86-88-9224SSD, Provider: Lupe Rosado, Status: Pen, Time: 11:10 AMFUV, Provider: Lupe Rosado, Status: Pen, Time: 11:10 AMF[facility] 250 DO Work Phone: Start: 59-22-0577LHH, Provider: Daphne Mayes, Status: Pen, Time: 3:20 PMFUV, Provider: Daphne Mayes, Status: Pen, Time: 3:20 PMF[facility]-[place] 250 DO Work Phone: Start: 45-46-5272Ubnawns encounter procedure FUVPACEMKR, Provider: [facility],EMCPACEMKR, Status: Pen, Time: 2:20 [facility] Work Phone: Start: 36-61-7599NWLIRGGI, Provider: PRABHJOT WALDRON TRADE MARK ATTORNEY 1,[id number], Status: Pen, Time: 2:30 PMNURSEVST, Provider: PRABHJOT WALDRON TRADE MARK ATTORNEY 1,[id number], Status: Pen, Time: 2:30 PMF[facility] 250 DO Work Phone: start: 24-83-1229WENO, Provider: KENDY [facility]VI ULTRASOUND 01,[id number], Status: Pen, Time: 1:30 PMECHO, Provider: KENDY [facility] ULTRASOUND 01,[id number], Status: Pen, Time: 1:30 PMEssentia Health 250 DO Work Phone: Start: 46-25-7965XTW, Provider: Lupe Rosado, Status: Pen, Time: 1:30 PMFUV, Provider: Lupe Rosado, Status: Pen, Time: [facility]:[address] [facility] [address] DO Work Phone: Start: 57-78-5558XYL, Provider: Daphne Mayes, Status: Pen, Time: 2:20 PMFUV, Provider: Daphne Mayes, Status: Pen, Time: 2:20 [address] [address] DO Work Phone: start: 29-42-5527Ybaxgmd encounter procedure FUVPACEMKR, Provider: [facility],EMCPACEMKR, Status: Pen, Time: 1:20 PMAust[facility] 320 DO Work Phone: Start: 26-84-9400UAR CHANGE, Provider: [facility] INSIDE OUTSIDE SALES REPRESENTATIVE 4,[id number], Status: Pen, Time: 12:30 PMICD CHANGE, Provider: [facility] INSIDE OUTSIDE SALES REPRESENTATIVE 4,[id number], Status: Pen, Time: 12:30 PMEssentia Health 3 DO Work Phone: Start: 74-58-4496XELJPSY, Provider: Daphne Mayes, Status: Pen, Time: 11:00 [facility], Provider: Daphne Mayes, Status: Pen, Time: 11:00 [facility] 3 DO Work Phone: Start: 26-55-7467KYW CHANGE, Provider: [facility] INSIDE OUTSIDE SALES REPRESENTATIVE 4,[id number], Status: Pen, Time: 2:00 PMICD CHANGE, Provider: [facility] INSIDE OUTSIDE SALES REPRESENTATIVE 4,[id number], Status: Pen, Time: 2:[address] [facility] [address] DO Work Phone: Start: 94-18-4724TDPMGWF, Provider: Daphne Mayes, Status: Pen, Time: 11:00 [facility], Provider: Daphne Mayes, Status: Pen, Time: 11:00 [facility] [address] DO Work Phone: Start: 78-79-1483LJE, Provider: Daphne Mayes, Status: Pen, Time: 8:40 AMFUV, Provider: Daphne Mayes, Status: Pen, Time: 8:40 AMF[facility]-[place] [address] DO Work Phone: Start: 85-34-0139Edscoap encounter procedure FUVPACEMMARIANO, Provider: [facility],EMCPGORDY, Status: Pen, Time: 7:40 AMF[facility]-[place] [address] DO Work Phone: Start: 98-46-2865XGJ High Risk: (Elderly (60+) or Population) (1 - Risk 60-74 years 1-dose series)RSV High Risk: (Elderly (60+) or Population) (1 - Risk 60-74 years 1-dose series)[facility]: 33-65-6333DLF patients and/or patients aged 60+ years (1 - 1-dose 60+ series)RSV patients and/or patients aged 60+ years (1 - 1-dose 60+ series)[facility]: 58-15-5729Stregu Vaccines (1 of 2)Zoster Vaccines (1 of 2)[facility]: 68-43-5633Uzwlyxnbh for malignant neoplasm of breastMammogram [facility]: 45-49-7812EXbY/Tdap/Td Vaccines (1 - Tdap)DTaP/Tdap/Td Vaccines (1 - Tdap)[facility]: 47-04-2139Amzdimuaelqo vaccinationPneumococcal Vaccine (1 of 2 - PCV)[facility]: 05-01-8043Urqpdbfa mellitus screeningDiabetes ScreeningUnGerman Hospital: 29-15-5171Warbmwkad C screening Hepatitis C ScreeningMorrow County Hospital: 1961 Pneumococcal Vaccine: 65+ Years (1 - PCV)Pneumococcal Vaccine: 65+ Years (1 - PCV)[facility]: 75-71-0594Gbhcnwuqujqi Vaccine: 65+ Years (1 of 2 - PCV)Pneumococcal Vaccine: 65+ Years (1 of 2 - PCV)[facility]: 97-68-1432CSIPM-19 Vaccine (#1)COVID-19 Vaccine (#1)[facility]: 69-45-1982Usvkf panelLipid Panel [facility]: 05-31-1955Medicare Annual Wellness Visit Medicare Annual Wellness Visit (AWV)[facility]: 10-12-0601Lasemlzct for malignant neoplasm of colonM[facility]: 88-32-2827Rcbzgdwdk for osteoporosisBone Density ScanKettering Memorial Hospital End: 43-86-7062Yquvvnq Device Check - RemoteCardiac Device Check - Remote Implantable Cardiac Device Routine ICD (implantable cardioverter-defibrillator) in place 52 Occurrences starting 08/29/2023 until 02/28/2024[facility] Work Phone: Comment on above:52 Occurrences starting 08/29/2023 until 02/28/2024atient EducationLow back pain in adultsParma Community General Hospital Work Phone: Urine [facility] Immunizations Immunization DateImmunizationNotesCare VuqraegbRrjhoefw66-70-8597vbjasnd toxoid, reduced diphtheria toxoid, and acellular pertussis vaccine, Lexus Rosado MD Work Phone: [facility] Payers DatePayer CategoryPayerPolicy [id number] 2024Self-pay [id number] Eligibility Medicare/Medicaid Organization [id number] Health InsuranceUNITED HEALTHCARE DUAL COMPLETE UNITED HEALTHCARE DUAL COMPLETE [id number] 2022-Present P Tamara Dailey [address] [place] [address] [id number] [id number] [id number] Health [id number] Health [id number] [id number] [id number] 2..1.261192.3.57[id number] 2..1.887099.3.579.[id number] 2..1.846874.3.57[id number] 2.0.1.775907.3.579.2.16932-36-4814Jbukgno1526879 2.0.1.109692.3.579.[id number] 2.0.1.148369.3.579.2.84781-92-9739Kdihilo5142649 2.0.1.489870.3.579.2.12257-07-2136Rnnphyb5395869 2.16.840.1.407887.3.579.2.92605-46-5094Ywvzzwe8599059 2.16.840.1.220301.3.579.2.60753-93-5208Uezvjjq7906335 2.16.840.1.240649.3.579.[id number] 2.16.840.1.036460.3.579.2.87940-73-4487Iyopmkc2358940 2.16.840.1.370567.3.579.2.91619-74-4981Mhmuuja5845652 2.16840.1.263894.3.579.2.88937-75-0378Reqnomq58081432 2.16840.1.136568.3.579.2.624255-48-7252Kmiesqq97334768 2.16840.1.548938.3.579.2.529030-68-5566Jowfvji45969690 2.840.1.772259.3.579.2.274017-63-8734Tcybmom981860629 2.16840.1.768454.3.579.2.09052-64-0496Ouudqxi650937740 2.16840.1.547366.3.579.2.57878-19-5773Erfngzw867707160 2.16840.1.939978.3.579.2.29802-03-3126Fosavqt741500477 2.16840.1.346663.3.579.2.0[id number] 2.16.840.1.786599.3.579.2.31241-40-1433Fwklzhv809221626 2.16840.1.660928.3.579.2.85155-87-2694Anbboxn43720916 2..1.178779.3.579.2.129385-67-2126Lkqcfco39411495 2..1.173680.3.579.2.396030-00-3732Kovdddw580762614 2..1.994911.3.579.2.412088-53-4853Ufbzlsb437239666 2..1.608557.3.579.2.382540-14-2929Mddwxsu934390566 2..1.603031.3.579.2.835094-58-4081Cejjzqh96002542 2..1.157[id number] Health [id number]5720 2..1.316821.3.579.2.209Aoncnpl60549204 ..1.657407.3.579.2.531 Tnoawao31103484 2..1.404736.3.579.2.423Ijxzdwf85261867 2..1.067413.3.579.2.493Oagoevx99964731 2..1.341182.3.579.2.531 Ywcudol23449403 2..1.464267.3.579.2.531 Social History DateTypeDetailFacilityStart: 10-09-2021 End: 55-67-6603Sobvhrhn useCaffeine useUnAdena Health SystemComment on above:1 1/2 daily (Pop);Start: 09-10-2076Cul [facility] At [facility]: 10-09-2021 End: 70-64-6721Irz [facility]igned At [facility] HospitalStart: 02-25-2023 End: 88-14-6472Viiutck smoking status NHISNever smoked tobaccoUnAdena Health System Work Phone: Start: 07-65-3078Rafmiuv use and exposureSmokeless tobacco non-userUnAdena Health System Work Phone: Start: 78-94-0966Ntw Assigned At [facility] HealthNot on file [facility] Work Phone: Start: 02-15-2023 End: 86-59-8230Mddgrdpk to SARS-CoV-2 (event)Not sureUnAdena Health SystemStart: 08-29-2023 End: 29-40-5894Nfawylugl beverage intakeLifetime non-drinker (finding)[facility] Work Phone: Start: 05-31-2024 End: 91-11-2604FszIeqjgf (finding)[facility] Functional Status KmopRuulhlkpwmJotpjiCggbduni52-73-4199XTN-2ESH0HMHQYO Moderate (10-14)[facility]-[place] [address] DO Work Phone: Clinical Notes 08-02-2021 to 12-31-2024 Note Date & LchoMpskJqhxwvwh23-62-2551 Evaluation note* Diagnosis Onset Date Resolution Status Admit Date Bronchitis acuteAugust 2024 1:03pmHeart failureacuteAugust 2024 1:03pm Costovertebral (angle) tenderness, bilateralacuteOctober 2024 10:02amLumbar painacuteOctober 2024 10:02amUrinary frequencyacuteOctober 2024 10:02am [facility] Work Phone: 1(254) 983-896806-04-2025 History of Present illness Narrative* Lupe Rosado [...] AICD discharge. [facility]with [facility]. Her weight remains above target and class [...] AICD, device is assessed by electrophysiology at [facility], last device check September 10, 2024 was available for review, it demonstrated no abnormalities and the data were sharedwith the patient 3-status post cardiac catheterization at [facility] was normal, this was back [...] exam, discussion and plan. documented in this [facility] Work Phone: 1(453) 301-108506-04-2025 Instructions* Patient Instructions* Scarlet Loomis LPN - [...] Same medications Follow up documented in this [facility] Work Phone: 1(789) 240-992002-10-2025 Evaluation note* Diagnosis Onset Date Resolution Status Admit Date Right wrist fracture acuteFebruary 2024 1:11pmAbnormal weight gainacuteMarch 2024 8:41am DepressionacuteMarch 2024 8:41amHeart failureacuteMarch 2024 8:41am Impaired fasting glucoseacuteMarch 2024 8:41amObesity, Class II, BMI 35-39.9acuteMarch 2024 8:41amObstructive sleep apneaacuteMarch 2024 8:41amOsteoarthritisacuteMarch 2024 8:41am [facility] Work Phone: 1(705) 464-422202-06-2025 History of Present illness Narrative* Lupe Rosado [...] AICD, device is assessed by electrophysiology at [facility] 3-cardiac catheterization 8 years ago at [facility] was normal 4-sleep apnea supposed [...] exam, discussion and plan. documented in this [facility] Work Phone: 1(640) 495-280002-06-2025 Instructions* Patient Instructions* Jyotsna Thayer LPN - [...] through Care Everywhere. * Heart Healthy Diet (Cymraes) documented in this [facility] Work Phone: 1(140) 669-513401-27-2025 Evaluation note* Diagnosis Onset Date Resolution Status Admit Date Depression acuteJanuary 2024 11:18amHeart failureacuteJanuary 2024 11:18am Impaired fasting glucoseacuteJanuary 2024 11:18amObesity, Class II, BMI 35-39.9acuteJanuary 2024 11:18amObstructive sleep apneaacuteJanuary 2024 11:18amOsteoarthritisacuteJanuary 2024 11:18am [facility] Work Phone: 1(298) 933-674201-27-2025 Evaluation note* Diagnosis Onset Date Resolution Status Admit Date Depression acuteJanuary 2024 11:18amHeart failureacuteJanuary 2024 11:18am Impaired fasting glucoseacuteJanuary 2024 11:18amObesity, Class II, BMI 35-39.9acuteJanuary 2024 11:18amObstructive sleep apneaacuteJanuary 2024 11:18amOsteoarthritisacuteJanuary 2024 11:18amRight wrist fracture acuteFebruary 2024 1:11pm [facility] Work Phone: 1(346) 919-904801-27-2025 Evaluation note* Diagnosis Onset Date Resolution Status [...] 8:41amObstructive sleep apneaacuteMarch 2024 8:41amOsteoarthritisacuteMarch 2024 8:41am [facility] Work Phone: 1(427) 372-109610-29-2024 Evaluation note* Diagnosis Onset Date Resolution Status Admit Date Depression acuteOctober 2023 10:47am [facility] Work Phone: 1(492) 923-264207-16-2024 History of Present illness Narrative* Lupe Rosado [...] AICD, device is assessed by electrophysiology at [facility] 3-cardiac catheterization 8 years ago at [facility] was normal 4-sleep apnea supposed [...] exam, discussion and plan. documented in this [facility] Work Phone: 1(587) 554-983007-16-2024 Instructions* Patient Instructions* Scarlet Loomis LPN - [...] 6 months with lab documented in this encounterK[facility] Work Phone: 1(877) 847-772004-26-2024 History of Present illness Narrative* Daphne Mayes [...] dictation application being used. documented in this encounterK[facility] Work Phone: 1(148) 829-117304-26-2024 Instructions* Patient Instructions* Anel Samano RN - [...] MD, FACC, FACP, RS documented in this encounterKet[facility] Hospital Work Phone: 1(538) 221-683501-24-2024 Evaluation note* Encounter Date Diagnosis Assessment Notes Treatment Notes Treatment Clinical Notes 24 Ki, 2024 Influenza A (ICD-10 - J10.1) resolved. discussed symptomatic care May,cute bronchitis, unspecified organism (ICD-10 - J20.9)No further antibiotics or steroids indicated. Recommened conservative measures for help w laryngitis. May,ardiomyopathy as manifestation of underlying disease (ICD-10 - I43) Pt states she has appt today w her lithographic stripper. [employer] Other 01-08-2024 History of Present illness Narrative* Lupe Rosado MD - 05/12/2023 1:30 PM EST Subjective Nya Bell is a 67 y.o. female Chief Complaint Follow-up HPI Patient is in the office for follow-up for the problems noted below. She was in [place] recently and had flu syndrome which left her with significant bronchitis that was noted during today's visit. Her lab data from [place] was reviewed, cardiac enzymes were normal other [...] AICD, device is assessed by electrophysiology at [facility] 3-cardiac catheterization 8 years ago at [facility] was normal 4-sleep apnea supposed [...] of Lupe Rosado MD. documented in this [facility] Work Phone: 1(547) 219-652101-08-2024 Instructions* Patient Instructions* Africa Noland LPN - [...] follow up per routine documented in this encounterKet[facility] Work Phone: 1(670) 814-144810-24-2023 History of Present illness Narrative* Lynn Jorgensen, NATE-FOOD SAFETY FIELD SPECIALIST - 02/25/2023 10:00 AM EDT CARDIOLOGY OFFICE VISIT CHIEF COMPLAINT Chief Complaint Patient presents with Device Check Routine check up HISTORY OF PRESENT ILLNESS HPI The patient is a 67-year-old female who is followed for nonischemic cardiomyopathy with a left ventricular ejection fraction improved to 60 to 65% per 2D echocardiogram dated November 22, 2022, [place] [employer] class II- III, stage C [...] per 2D echocardiogram dated November 22, 2022, [place] [employer] class III, stage C heart failure. 2. Upgrade to an AV biventricular ICD on August 02, 2021 (Medtronic cobalt XT HF Quad CARD ROOM MANAGER-D). Initial implant on January 25, 2015. 3. Valvular heart disease consisting of mild MR per 2D echocardiogram dated November 22, 2022. 4. Left heart catheterization in 2014 revealing normal coronaries at [facility]. 5. Obstructive sleep apnea, noncompliant [...] furosemide. 2. Obtain ICD checks per the [facility] device clinic as scheduled. Patient was instructed to obtain an in clinic device check at [facility] approximately 2 weeks prior to the [...] to prepare this document. documented in this [facility] Work Phone: 1(107) 129-151910-24-2023 Instructions* Patient Instructions* ISAI Mora - 02/25/2023 10:00 AM EDT When taking the lasix, increase dietary potassium intake (orange juice, bananas, skin on potatoes) documented in this [facility] Work Phone: 1(490) 936-854109-07-2023 Evaluation note* Encounter Date Diagnosis Assessment Notes Treatment Notes Treatment Clinical Notes Jan, Bronchitis (ICD-10 - J40) Discussed diagnosis with patient. Patient to take antibiotic daily with food as prescribed. Finish entire course of antibiotic. Proair inhaler sent today for patient to use PRN cough/wheezing/shortness of breath. Uxsb-yag-qaxhzza antipyretics as needed. Warning signs and symptoms reviewed with patient today. Patient to go immediately to the ER should she experience any of these. Patient to notifyoffice should her symptoms persist and not improve. Patient verbalizes understanding and agrees to treatment plan. [employer] Other 08-29-2023 Evaluation note* Encounter Date Diagnosis Assessment Notes Treatment Notes Treatment Clinical Notes Dec, Bronchitis (ICD-10 - J40) Discussed diagnosis with patient. Finish entire course of antibiotic. Proair inhaler sent today forpatient to use PRN cough/wheezing/shortness of breath. Tessalon Pearles ordered to take as needed for cough. Increase fluids and rest. Gdev-fwt-okltdmb antipyretics as needed. Warning signs and symptoms reviewed with patient today. Patient to go immediately to the ER should she experience any of these. Patient to notify office should her symptoms persist and not improve. Patient verbalizes understanding and agrees to treatment plan. [employer] Other 08-22-2023 Evaluation note* Encounter Date Diagnosis Assessment Notes Treatment Notes Treatment Clinical Notes Dec, Acute pain of right shoulder (IC D-10 - M25.511) Check xray. Add meds for pain relief and muscle relaxation. Will call pt w xray results. Dec,hest congestion (ICD-10 - R09.89)Start w CXR and assess for pneumonia - will base treatment on CXR results later today. [employer] Other 02-16-2023 NoteCONSULTATION CONSULTATION DATE: 06/20/2022 HISTORY [...] be followed up in the office thereafter.[facility] CenterQglgmmrc50-20-2704 NoteCONSULTATION CONSULTATION DATE: 05/23/2022 HISTORY OF PRESENT [...] be followed up in the clinic thereafter.[facility] CenterPhhjqkze53-90-4301 Evaluation note* Encounter Date Diagnosis Assessment Notes Treatment Notes Treatment Clinical Notes May, Vitamin D deficiency (ICD-10 - E 55.9) [employer] Other 01-17-2023 Evaluation note* Encounter Date Diagnosis [...] - I43) Reviewed notes from her specialist [employer] Other 12-06-2022 NoteCONSULTATION CONSULTATION DATE: 04/09/2022 CHIEF [...] was encouraged to follow up with the lithographic stripper with regards to her pacemaker. The patient is looking to schedule herself with regards to a physical and blood work by Dr. Pereira. CC: Anupam Pereira M.D.[facility] CenterYjlvpcfq53-30-2300 NotePROCEDURE: XR FINGER MIN 2 VIEWS COMPARISON: None. HISTORY: Acquired deformity of right finger FINDINGS: BONES:Persistent flexion of the fourth finger. No acute fracture or dislocation SOFT TISSUES:Soft tissue swelling EFFUSION:None visible. OTHER: Negative. IMPRESSION: Soft tissue swelling, no acute fracture Electronically authenticated by: CECY CHRISTIAN Date: 2022-02-05 07:14[facility]03-31-2022 NoteElectrophysiology Procedure TestingPlease click on the link to view the study images (Normal)[facility] 250 DO Work Phone: 1(612) 905-222603-31-2022 NoteElectrophysiology Procedure Testing Please click on the link to view the study images (Normal)[facility] 250 DO Work Phone: [phone]) 227-193203-31-2022 NoteElectrophysiology Procedure Testing Please click on the link to view the study images (Normal)[facility] 3 DO Work Phone: 1(691) 547-501503-31-2022 NoteElectrophysiology Procedure Testing Please click on the link to view the study images (Normal)[facility] [place] 320 DO Work Phone: Chiqv complaint+Reason for visit Narrative* Chief Complaint headache, back pain, sore throat, ear pain Memory ConcernsReason for VisitCOVID-19 [facility] Work Phone: Evaluation noteNo assessment information available [facility] Work Phone: Evaluation noteNo InformationNobarn[facility] Hypecal Other Evaluation note* Diagnosis ICD (implantable cardioverter-defibrillator) in place- Primary Morbid obesity (CMS/HCC) Morbid obesity Chronic systolic congestive heart failure (CMS/HCC) Cardiomyopathy, unspecified type (CMS/HCC) Dyspnea on exertion Other dyspnea and respiratory abnormality Obstructive sleep apnea syndrome in adult Other fatigue documented in this encounter [facility] Work Phone: Evaluation note* Diagnosis ICD [...] discuss treatment options documented in this encounter [facility] Work Phone: Evaluation note* Diagnosis Cardiomyopathy, unspecified type (CMS/HCC)- Primary ICD (implantable cardioverter-defibrillator) in place Obstructive sleep apnea syndrome in adult Class 2 obesity without serious comorbidity with body mass index (BMI) of 37.0 to 37.9 in adult, unspecified obesity type documented in this encounter [facility] Work Phone: Evaluation note* Diagnosis ICD (implantable cardioverter-defibrillator) in place documented in this encounter [facility] Work Phone: Evaluation note* Diagnosis Onset Date Resolution Status COVID-19 acute [facility] Work Phone: Evaluation note* Diagnosis Cardiomyopathy, unspecified type (Multi) Chronic systolic congestive heart failure (Multi) ICD (implantable cardioverter-defibrillator) in place Obstructive sleep apnea syndrome in adult Fatigue, unspecified type Never smoked cigarettes Class 2 obesity without serious comorbidity with body mass index (BMI) of 37.0 to 37.9 in adult, unspecified obesity type documented in this encounter [facility] Work Phone: Evaluation note* Diagnosis ICD (implantable cardioverter-defibrillator) in place- Primary Chronic systolic congestive heart failure Fatigue, unspecified type Obstructive sleep apnea syndrome in adult Never smoked cigarettes BMI 38.0-38.9,adult Class 2 obesity documented in this encounter [facility] Work Phone: Evaluation note* Diagnosis Nonischemic cardiomyopathy (Multi)- Primary Other primary cardiomyopathies ICD (implantable cardioverter-defibrillator) in place Obstructive sleep apnea syndrome in adult Never smoked cigarettes BMI 38.0-38.9,adult Class 2 obesity Other fatigue documented in this encounter [facility] Work Phone: History general Narrative - [...] of left shoulderMedical HistoryLeft shoulder painSurgical History pacemaker/[id number] HistoryNASAL AVPRYIK08/2020Surgical History CARDIAC CATH/2013Surgical HistoryLUMBAR NEVER DQGHCGRM44/2016Hospitalization HistorySee Sx Hx [employer] Other History general Narrative - Reported* Type [...] of left shoulderMedical HistoryLeft shoulder painSurgical History pacemaker/sftcvvdugxxig2272Roxtdccp HistoryNASAL YRLNSCE74/2020Surgical History CARDIAC CATH06/2013Surgical HistoryLUMBAR NEVER RWHNXIBB42/2017Hospitalization HistorySee Sx HxHospital[facility] [employer] Other Reason for referral (narrative)* Consultation (Routine) - AuthorizedSpecialtyDiagnoses / ProceduresReferred By Contact Referred To ContactCardiology Diagnoses ICD (implantable cardioverter-defibrillator) in place Procedures Follow Up In Cardiology Lynn Jorgensen APRN-CNP [address] [place] [address] Daphne Mayes MD [address] [place] [address] Referral IDStatusReasonStart DateExpiration DateVisits RequestedVisits [id number]/24/202310/23/202411 T [facility] Work Phone: Reason for referral (narrative)* Consultation (Routine) - AuthorizedSpecialtyDiagnoses / ProceduresReferred By Contact Referred To ContactCardiology Diagnoses Cardiomyopathy, unspecified type (CMS/HCC) Procedures Follow Up In Cardiology Lupe Rosado MD [address] [facility] [address], [address] [address] Lupe Rosado MD [address] [place] [address] 2, [address] [place] [address] Referral IDStatusReasonStart DateExpiration DateVisits RequestedVisits [id number]/8/20241/ [facility] Work Phone: Rekine for referral (narrative)* Consultation (Routine) - AuthorizedSpecialtyDiagnoses / ProceduresReferred By Contact Referred To ContactCardiology Diagnoses Chronic systolic congestive heart failure (Multi) Procedures Follow Up In Cardiology Lupe Rosado MD [address] [facility] [address], [address] [address] Lupe Rosado MD [address] [place] [address] 2, [address] [address] Referral IDStatusReasonStart DateExpiration DateVisits RequestedVisits [id number]/16/20247/16/202511 [facility] Work Phone: Reason for referral (narrative)No reason for referral information availablePar[facility] Work Phone: Reason for visit Narrative* Imaging (Routine) - Pending ReviewSpecialtyDiagnoses / ProceduresReferred By ContactReferred To ContactCardiology Diagnoses ICD (implantable cardioverter-defibrillator) in place Procedures Cardiac Device Check - In Clinic Daphne Mayes MD [address] [facility] [address], [address] [place] [address] Phone: tel: fax: Referral IDStatusRecriseldaStfernanda DateExpiration DateVisits RequestedVisits [id number] Review Perform Procedure 252 [facility] Work Phone: Summary Purpose Family History [...] Complaint cardiomyopathy [facility] Chief Complaint defib machine issues headache, back pain, sore throat, ear pain Chief Complaint headache, back pain, sore throat, ear pain Memory Concerns cardiomyopathy CC Adult Risk StratificationReason for VisitCOVID-19 Chief Complaint Admit Date Memory Concerns March 02, 2024 1 0:47am cardiomyopathy March 03, 2024 1 0:19am CC Adult Risk Stratification February 12:02pm [facility] May 31 11:18am Reason for Visit Admit Date Depression March 02, 2024 1 0:47am Chief Complaint Admit Date [facility] May 31 11:18am defib machine issues June 03, 2024 2:28pm Reason for Visit Admit Date Depression May 31, 2024 1 1:18am Heart failure May 31, 2024 1 1:18am Impaired fasting glucose May 31, 025 11:18am Obesity, Class II, BMI 35-39.9 May 062024 11:18am Obstructive sleep apnea May 31 11:18am Osteoarthritis May 31, 2024 1 1:18am Chief Complaint Admit Date [facility] May 31 11:18am defib machine issues June 03, 2024 2:28pm Amb Documentation June 08, 2024 1 :31pm [facility] ER f/u, broken wrist right June 14, 2024 1:11pm Chief Complaint Admit Date [facility] May 31 11:18am defib machine issues June [...] 2024 8:4 1am Chief Complaint Admit Date [facility] May 31 11:18am defib machine issues June [...] Done by Dr. Mayes at [facility] on 07/19/2021. Dr. Gaudencio Mendoza MD [...] AICD, device is assessed by electrophysiology at [facility], had recent battery change with no complications. * 3 cardiac catheterization 7 years ago at [facility] was normal * 4 extreme [...] AICD, device is assessed by electrophysiology at [facility], had recent battery change with no complications. * 3 cardiac catheterization 7 years ago at [facility] was normal * 4 extreme [...] AICD, device is assessed by electrophysiology at [facility], had recent battery change with no complications. * 3 cardiac catheterization 7 years ago at [facility] was normal * 4 extreme [...] AICD, device is assessed by electrophysiology at [facility] * 3 cardiac catheterization 7 years ago at [facility] was normal * 4 extreme [...] AICD, device is assessed by electrophysiology at [facility] * 3 cardiac catheterization 7 years ago at [facility] was normal * 4 extreme [...] scheduled. We will arrange for that at [facility]. Her weight is unchanged from previously and [...] AICD, device is assessed by electrophysiology at [facility] * 3 cardiac catheterization 7 years ago at [facility] was normal * 4 fatigue [...] - Remote Daphne Mayes MD [address] [facility], [address] [address] Referral IDStatusReasonStart DateExpiration DateVisits RequestedVisits [id number] Review Perform Procedure [id number] / ProceduresReferred By ContactReferred To ContactCardiology Diagnoses ICD (implantable cardioverter-defibrillator) in place Procedures Cardiac Device Check - In Clinic Daphne Mayes MD [address] [facility], [address] [address] Referral IDStatusReasonStart DateExpiration DateVisits RequestedVisits [id number] Review Perform Procedure [id number] / ProceduresReferred By ContactReferred To Contact Diagnoses ICD (implantable cardioverter-defibrillator) in place Procedures ECG 12 lead (Clinic Performed) Daphne Mayes MD [address] [facility], [address] [address] Referral IDStatConsult A DoctorRePriviaart DateExpiration DateVisits RequestedVisits [id number]/26/20244/26/202511 Additional Source Comments INFORMATION SOURCE (unrecogn ized section and content) DATE CREATED AUTHOR 10/24/2017 [facility] DATE CREATED AUTHOR AUTHOR'S ORGANIZ ATION 11/13/2018 [facility] DATE CREATED AUTHOR AUTHOR'S ORGANIZ ATION 08/02/2020 [facility] DATE CREATED AUTHOR AUTHOR'S ORGANIZ ATION 08/22/2022 [facility] DATE CREATED AUTHOR AUTHOR'S ORGANIZ ATION 10/14/2022 [facility] DATE CREATED AUTHOR AUTHOR'S ORGANIZ ATION 11/23/2022 [facility] DATE CREATED AUTHOR AUTHOR'S ORGANIZ ATION 12/10/2022 [facility] DATE CREATED AUTHOR AUTHOR'S ORGANIZ ATION 09/03/2023 [facility] DATE CREATED AUTHOR AUTHOR'S ORGANIZ ATION 03/05/2024 [facility] DATE CREATED AUTHOR AUTHOR'S ORGANIZ ATION 05/23/2024 [facility] DATE CREATED AUTHOR AUTHOR'S ORGANIZ ATION 10/07/2024 [facility] DATE CREATED AUTHOR AUTHOR'S ORGANIZ ATION 03/14/2025 [facility] Care Teams (unrecognized sec tion and content) Team Status: Active Member Role Status Dates Anupam Pereira MD Primary Care Provider Active Team Status: Active Member Role Status Dates Anupam Pereira MD Primary Care Provider Active Start: December 09, 2024 [facility] ProviderActiveStart: December 09, 2024 Chasity Harper MDAverona [...] Date End Date Anupam Pereira MD [address] [facility] [place] [id number] PCP - General09/30/19 Team Status: Inactive Member Role Status Dates Anupam Pereira MD Attending Provider Active St art: May 08, 2023 End: May 08, 2023 Team Status: Inactive Member Role Status Dates Anupam Pereira MD Primary Care Provider Active Start: May 28, 2023 End: May 28, 2023Fermin Smart ProviderActive Start: May 28, 2023 End: May 28, 2023Team MemberRelationshipSpecialtyStart DateEnd Date Anupam Pereira MD [facility] [place] [address] PCP - Generalmily Hltbzggt43/13/23 Lynn Jorgensen FINANCE ASSOCIATE-FOOD SAFETY FIELD SPECIALIST [address] [place] [address], [address] [place] [address] Nurse DhynrwspwdcfVwmywavatm78/3/23Team MemberRelationshipSpecialtyStart DateEnd Date Anupam Pereira MD [address] [facility] [address] PCP - [facility] Jesznmfy13/13/23 Lynn Jorgensen FINANCE ASSOCIATE-FOOD SAFETY FIELD SPECIALIST [address] [facility], [address] [place] [address] Nurse FpoxdbdngxzjUoabcioccs04/3/23 Team Status: Inactive Member Role Status Dates Anupam Pereira MD Primary Care Provider Active Start: December 02, 2023 End: December 02, 2023Fermin Smart ProviderActiveStart: December 02, 2023 End: December 02, 2023Team MemberRelationshipSpecialtyStart DateEnd Date Anupam Pereira MD [address] [place] [address] PCP - [facility] Keuwdpgi38/13/23 Lynn Jorgensen, FINANCE ASSOCIATE-FOOD SAFETY FIELD SPECIALIST [address] [facility], [address] [place] [address] Nurse DlvobdrjubpbMjbskkwmwv52/3/23 Team Status: Active Member Role Status Dates [...] Anupam Pereira MD [address] [place] [address] PCP - [facility]04/16/23 Lynn Jorgensen, FINANCE ASSOCIATE-FOOD SAFETY FIELD SPECIALIST [address] [facility], [address] [place] [address] Nurse FlftyhyfzbpcCmjbnucrae31/3/23Team MemberRelationshipSpecialtyStart DateEnd Date Anupam Pereira MD [address] [place] [address] PCP - [facility]04/16/23 Daphne Mayes MD [address] [facility], [address] [place] [address] WfqqsqnfcydhWjfvrotmycbwzpymv74/20/24 Team Status: Active Member Role Status Dates Anupam Pereira MD Primary Care Provider Active Start: June 08, 2024 Solange Isbell CMAAttending ProviderActiveStart: June 08, 2024 Team Status: Active Member Role Status Dates Anupam Pereira MD Primary Care Provider Active Start: June 03, 2024 Chasity Harper , MDAttending Provider, Other ProviderActiveStart: June 03, 2024 Team MemberRelationshipSpecialtyStart DateEnd Date Anupam Pereira MD [address] [facility] [place] [address] PCP - GeneralFaprly Iwszrlyb69/13/23 Daphne Mayes MD [address] [facility] [address], [address] [place] [address] QravzwpqovuvBmpusincklnxldvxa56/20/24 Team Status: Inactive Member Role Status Dates [...] Follow Up In Cardiology Lupe Rosado MD [address] [place] [address] Phone: tel: fax: Lupe Rosado MD [address] [place] [address] 2, [address] [address] Phone: tel: fax: Referral IDStatusReasonStart DateExpiration DateVisits RequestedVisits [id number]/6/20252/737419QleyvmPgdnfvqfVbxssh CheckRoutine check upReasonCommentsFollow-up6 monthSpecialtyDiagnoses / ProceduresReferred By ContactReferred To ContactCardiology Diagnoses ICD (implantable cardioverter-defibrillator) in place Procedures Follow Up In Cardiology Lynn Jorgensen, NATE-PAMELA [address] [facility], [address] [address] Daphne Maeys MD [address] [facility], [address] [address] Referral IDStatusReasonStart DateExpiration DateVisits RequestedVisits [id number]/24/202310/947498VetdraPjyslvcrJmbotn-il7 month ReasonCommentsFollow-up6 monthsSpecialtyDiagnoses / ProceduresReferred By ContactReferred To ContactCardiology Diagnoses Cardiomyopathy, unspecified type (Multi) Procedures Follow Up In Cardiology Lupe Rosado MD [address] [place] [address] 2, [address] [address] Lupe Rosado MD [address] [place] [address] 2, [address] [address] Referral IDStatusReasonStart DateExpiration DateVisits RequestedVisits [id number]/8/20241/043516Anfzeehz IDStatusReasonStart Date Expiration DateVisits RequestedVisits [id number]/16/2024 FOR RECORDS PERTAINING TO PATIENTS WHO ARE [...] BE BASED ON THE PRIMARY CLINICAL RECORDS. [employer] [facility]. provides no warranty or guarantee of the accuracy or completeness of information in this document.
--- NOTE | 2025-04-06 13:02 | PM.CN ---
Consult Note: HPI Data of Consult Patient: known to practice within the last 3 years Requesting Physician: Melyssa Ly NP Primary Care Provider: Norma Tapia MD Consult Narrative Reason for consult: low back pain Narrative: Chantelle Bell a pleasant 69 year old female presents for evaluation of chronic low back pain secondary to lumbar spondylosis and DDD. She is noticing over the last 6 months increasing low back pain without new injury, has failed to benefit from > 6 weeks of HEP, heat, ice, tylenol, NSAIDs. Pain today 4/10 throbbing, increasing to 10/10 with standing, walking, pushing, pulling, lifting, ADLs, activity. notes mild improvement with heat. recently underwent bilateral L4-5 L5-S1 MBB #1 with >80% improvement in pain while anesthetized. preop pain up to 10/10 post op pain 0/10 greater than 12 hours. cc:: CC: Melyssa Ly NP Review of Systems ROS Musculoskeletal Reports: back pain; Denies: extremity pain PFSH PFS Medical History (Updated 03/24/25 @ 13:24 by Tammy Estrada RN) Rheumatoid arthritis ?M06.9 - Rheumatoid arthritis, unspecified (ICD-10) Low back pain ?M54.50 - Low back pain, unspecified (ICD-10) Obesity ?E66.9 - Obesity, unspecified (ICD-10) CHF (congestive heart failure) ?I50.9 - Heart failure, unspecified (ICD-10) Pacemaker ?Z95.0 - Presence of cardiac pacemaker (ICD-10) Social History Little interest or pleasure in doing things: not at all Feeling down, depressed, or hopeless: not at all Meds Home Medications and Allergies Home Medications ?Medication ?Instructions ?Recorded ?Confirmed ?Type omeprazole 20 mg capsule,delayed 20 mg PO DAILY 12/25/23 02/15/25 History release nebivolol 2.5 mg tablet mg 02/15/25 History sertraline 50 mg tablet 100 mg PO DAILY 02/15/25 03/24/25 History valsartan 80 mg tablet mg 02/15/25 History Allergies Allergy/AdvReac Type Severity Reaction Status Date / Time adhesive tape AdvReac Mild Rash Verified 02/15/25 11:44 Exam Constitutional Documenting provider has reviewed patient's vital signs: yes Common normals: no apparent distress, oriented x3 and alert General appearance: cooperative HENMT Common normals: normocephalic, hearing grossly normal bilaterally and moist oral mucous membranes Head and scalp: normocephalic Eye Common normals: PERRL Pupil: PERRL Neck & C-Spine Common normals: full ROM General: normal visual inspection Chest Common normals: inspection of chest normal Respiratory Common normals: normal respiratory effort, no retractions and no use of accessory muscles Back & Pelvis Lumbar spine/lower back: ROM limited, pain with ROM, lumbar spinal tenderness and straight leg raise negative bilaterally Other: strength 5/5 in BLE sensation intact BLE Neuro Common normals: oriented x3 Sensorium/orientation: alert Psych Common normals: mental status grossly normal, thought process normal, cooperative, affect normal, speech normal and activity/motor behavior normal Speech: normal speech Thought process: normal thought process Results Additional Findings Additional findings: If on a controlled substance or opioids, I have checked an [place] report on this patient and there are no aberrancies noted in the prescribing history.??If on a controlled substance or opioid a drug screen was completed and reviewed within the last year, and if there has not been a drug screen completed we ordered one today to monitor higher risk, state monitored pain medication use. As part of providing excellent, safe, comprehensive care, the following was completed at our patient's visit: 1. A medication reconciliation and review to ensure accurate knowledge of current/active medications, including asking our patients to inform us about any gdfj-lga-zcvsjhv medications or herbal remedies/nutritional supplements/alternative remedies. 2. A review to specifically ensure our patients have had annual screening for screening for depression, screening for tobacco use, and screening for unhealthy alcohol use. For concerning screenings had a discussion with the patient, provided patient education, and recommended follow-up with primary care provider when appropriate. If patient noted with a risk of falling, they received education on strength, gait, and balance training to prevent future risk of falling. Portions of this note may have been carried over from the previous visit and updated as appropriate. Please note this office utilizes paper charting in addition to the electronic medical record. A list of current medications, vitals, and PMH is available there as the clinical staff outside of myself do not have access to [employer] charting during the clinic day operations. As part of providing quality comprehensive care the current medications, vitals, and PMH were reviewed in the paper chart. Assessment and Plan Assessment and Plan (1) Lumbar spondylosis: Plan The patient has had over 3 months of moderate to severe low back pain with functional impairment and inadequate response to conservative care including NSAIDS (unless there are contraindication such as concurrent blood thinners), multiple oral or topical pain medications, and home exercise program/physical therapy.? Patient has completed >6 weeks of guided home exercise program and/or formal physical therapy program without relief of their symptoms.? I have reviewed the imaging of the lumbar spine and no red flags were identified.? The Oswestry Disability Index was completed, and the patient scored a 38%.? bilateral L4-5 L5-S1 MBB #2 under fluoroscopy in consideration of RFA for facet mediated low back pain continue HEP as tolerated f/u after injection
== END 2025-04-06 12:48 | disposition home or self-care (01) ==
LOC: PM 12:48
PROVIDERS: PCP Family Medicine; Visit Provider Nurse Practitioner
DX: M47.816 Spondylosis without myelopathy or radiculopathy, lumbar region (principal)
CPT/HCPCS: G0463